=== PATIENT | male | born 1945 | race Caucasian/White ===

== ENCOUNTER 2018-02-10 18:15 | Inpatient (IN) | payer MEDICARE, OTHER, SELFPAY ==
[2018-02-10 18:16] VITALS: BP 179/85; PULSE 67; RESP 16; TEMP 37.2; O2SAT 97; BMI 28.8
[2018-02-10 18:32] VITALS: BP 160/74
--- NOTE | 2018-02-10 19:08 | EKG12_ITS ---
Test Reason : CONFUSION Blood Pressure : / mmHG Vent. Rate : 064 BPM Atrial Rate : 064 BPM P-R Int : 192 ms QRS Dur : 090 ms QT Int : 406 ms P-R-T Axes : 035 042 042 degrees QTc Int : 418 ms Normal sinus rhythm Normal ECG Confirmed by PEARL LANTIGUA, AUSTIN ([id number]), senior editor RADAMES GLASS ([id number] on 02/12/2018 2:07:43 PM Referred By: Casey Ly Confirmed By:AUSTIN KANG MD
--- NOTE | 2018-02-10 19:08 | CT_ITS ---
STUDY: CT BRAIN WITHOUT CONTRAST REASON FOR EXAM: Male, 72 years old. Confusion RADIATION DOSAGE (If Supplied By Facility): CTDIvol = ( 44.99 ) mGy, DLP = ( 829.85 ) mGycm TECHNIQUE: Transaxial CT imaging of the brain was performed without administration of intravenous contrast material. Individualized dose optimization techniques were used for this CT. COMPARISON: None. FINDINGS: Normal soft tissue structures. Normal calvarium. There is mild cerebral atrophy with widening of the extra-axial spaces and ventricular dilatation. There are areas of decreased attenuation within the white matter tracts of the supratentorial brain, consistent with microvascular disease changes. Normal basal ganglia and thalami. Normal brainstem. Normal cerebellum. There is no intracranial hemorrhage. There are no findings of an acute ischemic infarction. Mucosal thickening in the inferior recesses of the frontal sinuses, anterior right ethmoid sinuses and posterior left ethmoid sinuses. CT/Brain/Head without Contrast IMPRESSION: No acute intracranial findings. Negative for hemorrhage, hematoma or mass density. Mild involutional changes appropriate for age. Incidental sinus findings as stated above. Electronically Signed: Donna Argueta MD at 20:02 EDT , Service support ,
[2018-02-10 19:33] LABS: Bacteria 0 SEEN /hpf (None Seen); Mucous, Urine 0 SEEN /hpf (<or=2+); Red Blood Cells-Urine 0 SEEN /hpf (0-5); Squamous Epithelial Cells - UA 0 SEEN /hpf (0-5); White Blood Cells 0 SEEN /hpf (0-5)
[2018-02-10] MEDS: 0.9% Normal Saline 1,000 ML 150 ML IV (19:33)
[2018-02-10 19:55] LABS: Color, Urine Straw (Yellow); Glucose, Dipstick Normal (Normal); Ketone-Dipstick Negative (Negative); Leukocyte Esterase-Dipstick Negative /ul (Negative); Nitrite-Dipstick Negative (Negative); Occult Blood-Urine Negative /ul (Negative); Protein-Dipstick Negative (Negative); Urine Bilirubin Dipstick Negative (Negative); Urine Clarity Clear (Clear); Urine Urobilinogen Normal (Normal)
[2018-02-10 19:57] LABS: Absolute Lymphocyte Count 1.75 X10^3/ul (0.83-4.51); Absolute Neutrophil Count 3.1 X10^3/uL (2.0-7.7); Basophil# 0.02 X10^3/uL; Basophil% 0.3 % (0-1); Eosinophil# 0.26 X10^3/uL; Eosinophils% 4.4 % (0-5); Hematocrit 38.3 % (40-54); Hemoglobin 12.7 g/dl (13.0-16.5); Lymphocyte # 1.75 X10^3/ul (4.0); Lymphocyte % 29.6 % (19-41); Mean Corp Hgb Conc 33.2 g/gl (32-36); Mean Corpuscular Hgb 28.8 pg (27.0-32.0); Mean Corpuscular Volume 86.8 fL (80-94); Mean Platelet Vol. 9.7 fl (6.2-12.0); Monocyte# 0.76 X10^3/uL; Monocyte% 12.8 % (0-10); Neutrophil # 3.13 X10^3/uL (2.7-7.7); Neutrophil % 52.9 % (47-70); Platelet Count 213 K/mm3 (150-450); RBC Distribution Width CV 13.2 % (11.6-14.6); RBC Distribution Width SD 42.1 fl (35.1-43.9); Red Blood Count 4.41 M/mm3 (4.6-6.2); White Blood Count 5.9 K/mm3 (4.4-11.0)
[2018-02-10 20:00] LABS: POSITIVE COUNT NO; POSITIVE DIFFERENTIAL NO; POSITIVE MORPHOLOGY NO
[2018-02-10 20:07] LABS: AST(SGOT) 20 U/L (15-37); Alanine Aminotransfer ALT/SGPT 23 U/L (16-61); Albumin, Serum 3.2 g/dL (3.2-5.0); Alkaline Phosphatase 72 U/L (45-117); Anion Gap 7 (5-15); BUN 13 mg/dL (7-18); Bilirubin, Direct 0.05 mg/dL (0.00-0.30); Calcium,Total 8.4 mg/dL (8.5-10.1); Chloride 109 mmol/L (98-107); Creatinine, Serum 1.08 mg/dL (0.70-1.30); EST Glomerular Filtration Rate 71 mL/min (>60); Est Glom Filt Rate - Afr Amer 86 mL/min (>60); Estimated Creatinine Clearance 60.01 ml/min; Globulin 3.8 g/dL (2.2-4.2); Glucose 84 mg/dL (74-106); Potassium 3.7 mmol/L (3.5-5.1); Sodium Level 143 mmol/L (136-145)
[2018-02-10 21:08] VITALS: BP 160/81; PULSE 61; RESP 20; O2SAT 97
--- NOTE | 2018-02-10 21:40 | ED.VISSUMM ---
- ER Visit Summary Date of Service: 02/10/18 Chief Complaint: Confusion History of Present Illness: The patient is a 72 M brought in by and son. Patient reported has had occasional forgetfulness since having a concussion a couple years ago. They have noted an increase in his confusion and he has been acting odd over the past couple of weeks. As an example states the patient got up at 2:30 this morning and got dressed to go for work. He has been retired for several years. He keeps repeating questions and forget things that were just discussed. Patient has reportedly had 3 falls in the past month. He denies any injuries from these falls and did not strike his head. They do report there is a recent change to his blood pressure medications but no other medications have been altered. He has been eating and drinking well. His only complaint at this time is a mild headache. Past history significant for DE, hypertension, high cholesterol, reflux disease, prostate cancer. He does have a cardiac stent. Physical Examination: Blood pressure in triage is 160/74, temperature 99.0, heart rate 67, respiratory rate 16, pulse ox 97% on room air. The time of my examination his blood pressure is 142/71 and his temperature is 98.2 orally. Patient sitting upright in bed no acute distress. There is no sign of trauma. Head and neck examination is unremarkable. Heart is regular rate and rhythm. Lung sounds are clear. Abdomen is soft nontender. Patient has normal strength and sensation throughout on testing. When I asked him simple questions such as what he ate for dinner just before coming to the emergency room he was unable to tell me. On further questioning patient reportedly felt that he was coming to the hospital to visit someone, but could not tell me who. Test Results: CT scan head is unremarkable. EKG is sinus at 64 with no sign of acute ischemia. CBC was normal white count with hemoglobin 12.7. Chemistry studies are unremarkable. LFTs are normal. Urinalysis is normal. Troponin is negative. Emergency Department Course and Treatment: Patient was given IV fluids here. I have discussed the case with the hospitalist and patient will be admitted for further testing. This was discussed with family and they are in agreement. Treatment Plan: [] Disposition: Admit Impression: Confusion This note was generated with [employer] dictation software. It may contain incorrect words, spelling, and punctuation that were not noted in review of the chart prior to signing ED Disposition - Plan for ED Patient: Disposition: Acute Care Hospital [facility] Chief Complaint: Confusion
--- NOTE | 2018-02-10 22:05 | PCM.HP.STD ---
Problem List (1) Prostate cancer Status: Chronic (2) HTN (hypertension) Status: Chronic Qualifiers: Hypertension type: essential hypertension Qualified Code(s): I10 - Essential (primary) hypertension (3) HLD (hyperlipidemia) Status: Chronic Qualifiers: Hyperlipidemia type: unspecified Qualified Code(s): E78.5 - Hyperlipidemia, unspecified (4) GERD (gastroesophageal reflux disease) Status: Chronic Qualifiers: Esophagitis presence: esophagitis presence not specified Qualified Code(s): K21.9 - Gastro-esophageal reflux disease without esophagitis (5) History of MO (myocardial infarction) Status: Chronic (6) Dementia Status: Chronic Qualifiers: Dementia type: unspecified type Dementia behavioral disturbance: without behavioral disturbance Qualified Code(s): F03.90 - Unspecified dementia without behavioral disturbance (7) TIA (transient ischemic attack) Status: Acute Qualifiers: Transient cerebral ischemia type: unspecified Qualified Code(s): G45.9 - Transient cerebral ischemic attack, unspecified History of Present Illness Date of Admission: 02/10/18 Chief Complaint: Worsened confusion The patient is a 72 y/o M w/ PMHx: Hx Prostate CA Dx 10 years prior, HTN, HLD, GERD, Hx MO/CAD s/p PCI x 1 who presents to the [facility] ED on 02/10/18 with history of concussion approximately 2 years prior with forgetfulness following however the last 3 weeks notes progressively worsening confusion, more severe on day of presentation consistently repeating questions and noted per spouse to awoken at approximately 2:30 in the morning and dressing himself for work in addition to not recalling simple things including the meal he just ate. Emergency room workup included T 99, heart rate 67, BP initially 179/85, respiratory rate 16, 97% on room air, CBC with WBC 5.9, hemoglobin 12.7, platelets 213 without market shift, CMP unremarkable, troponin less than 0.015, UA unremarkable, CT head without acute findings, EKG with no acute evidence of ischemia. The emergency room patient administered normal saline. Past Medical History Past Medical History (Chronic Problems): Chronic Problems Prostate cancer (Chronic) HTN (hypertension) (Chronic) HLD (hyperlipidemia) (Chronic) GERD (gastroesophageal reflux disease) (Chronic) History of MO (myocardial infarction) (Chronic) Dementia (Chronic) Allergies [place]-Vjz-Kmt Reductase Inhibitor Allergy (Verified 02/10/18 18:21) Other Home Medications: Ambulatory Orders Medication Instructions Recorded Amlodipine [Norvasc] 10 mg PO DAILY 10/04/13 Aspirin [Aspirin, Baby] 81 mg PO DAILY@0800 10/04/13 Losartan Potassium [Cozaar] 100 mg PO DAILY 10/04/13 Multivitamins,Therapeutic 1 tablet PO DAILY 10/04/13 [Multivitamin] [place]-3/Dha/Epa/Fish Oil [Fish Oil] 500 mg PO DAILY 10/04/13 Surgical History: - - PCI ?1, hernia repair listed in history. Psychiatric History: No pertinent psych hx Lives: Spouse/ Significant Other Smoking Status: Former smoker - Quit approximately 37 years prior with spouse. Alcohol: None Drugs: None - *Family History Maternal History Items: Heart Disease, Hypertension, Stroke Paternal History Items: Heart Disease, Hypertension Review of Systems Constitutional: Denies: Chills, Fever, Weight Change HEENT: Denies: Head Aches, Sinus Congestion, Sinus Drainage Cardiovascular: Denies: Chest Pain, Palpitations Respiratory: Denies: Cough, Shortness of breath at rest, Sputum production Gastrointestinal: Denies: Abdominal Pain, Nausea, Vomiting Genitourinary: Denies: Dysuria Musculoskeletal: Denies: Joint Pain, Joint Tenderness Skin: Reports: Skin Changes. Denies: Rash, Wounds Neurological: Reports: Confusion. Denies: Focal weakness, Numbness, Tingling Psychiatric: Denies: Anxiety, Depression, Homicidal Ideations, Suicidal Ideations Hematologic/ Lymphatic: Denies: Easy Bruising, Easy Bleeding VTE Information - Inpt Only VTE Present on Admission: No VTE Mechan Device Prophylaxis: SCD's VTE Pharm Prophylaxis ordered?: Yes Patient Problems: Active and Suspected Problems TIA (transient ischemic attack) (Acute) Subjective: Seated upright in the ED bed, NAD, recalls several orientation questions but when discuss further does have recall issues. Objective: Physical Examination: General: awake, alert, oriented x 4/4 but does have recall issues upon further recent history questions, cooperative, seated upright in the ED bed in no apparent distress. Skin: normal color, turgor, no icterus, cyanosis, facial skin changes, rosacea appearing. HEENT: AT/NC, EOMI, PERRLA, mildly dry MM, no carotid bruits or JVD noted. Lungs: CTA bilaterally, moderate effort, mild decrease BL bases, no rales, ronchi or wheezing. Heart: Regular rate and rhythm; no gallop, rub audible. Abdomen: soft, overweight, NTTP, ND, normal BS, no HSM. Extremities: no cyanosis, clubbing, or edema. Neurological: patient awake, alert, oriented as noted, but further more pointed questioning with inability to answer appropriately items he would normally recall, i.e. wedding date; cognitive function moderate but not baseline intact; pupils equally reactive to light and accomodation; cranial nerves II-XII grossly normal, moving all 4 extremities, no focal deficits, strength preserved, babinski negative, FTN/HTN intact. Psychiatric: affect appears normal, no acute evidence of depressive or anxiety feelings. - Physical Exam Vital Signs Temp Pulse Resp BP Pulse Ox 99.0 F 61 20 H 160/81 H 97 02/10/18 18:16 02/10/18 21:08 02/10/18 21:08 02/10/18 21:08 02/10/18 21:08 Oxygen Delivery Method Room Air Weight: 195 lb 8.8 oz Body Mass Index (BMI) 28.8 Laboratory Tests Past 24 Hrs 02/10/18 02/10/18 02/10/18 19:25 19:34 19:34 WBC 5.9 RBC 4.41 L Hgb 12.7 L Hct 38.3 L MCV 86.8 MCH 28.8 MCHC 33.2 RDW 13.2 RDW Differential 42.1 Plt Count 213 MPV 9.7 Immature Gran % (Auto) 0.000 Neut % (Auto) 52.9 Lymph % (Auto) 29.6 [place] % (Auto) 12.8 H Eos % (Auto) 4.4 Baso % (Auto) 0.3 Absolute Neuts (auto) 3.1 Absolute Lymphs (auto) 1.75 Total Counted Not Reportable Sodium 143 Potassium 3.7 Chloride 109 H Carbon Dioxide 27.0 Anion Gap 7 BUN 13 Creatinine 1.08 Estim Creat Clear Calc 60.01 Est GFR (MDRD) Af Amer 86 Est GFR (MDRD) Non-Af 71 BUN/Creatinine Ratio 12.0 Glucose 84 Calcium 8.4 L Total Bilirubin 0.20 Direct Bilirubin 0.05 AST 20 ALT 23 Alkaline Phosphatase 72 Troponin I < 0.015 Total Protein 7.0 Albumin 3.2 Globulin 3.8 Urine Color Straw Urine Clarity Clear Urine pH 7.0 Ur Specific [place] 1.010 Urine Protein Negative Urine Glucose (UA) Normal Urine Ketones Negative Urine Occult Blood Negative Urine Nitrite Negative Urine Bilirubin Negative Urine Urobilinogen Normal Ur Leukocyte Esterase Negative Urine RBC 0 SEEN Urine WBC 0 SEEN Ur Squamous Epith Cells 0 SEEN Urine Bacteria 0 SEEN Urine Mucus 0 SEEN Assessment/Plan Active and Suspected Problems TIA (transient ischemic attack) (Acute) The patient is a 72 y/o M w/ PMHx: Hx Prostate CA Dx 10 years prior, HTN, HLD, GERD, Hx MO/CAD s/p PCI x 1 who presents to the [facility] ED on 02/10/18 with history of concussion approximately 2 years prior with forgetfulness following however the last 3 weeks notes progressively worsening confusion, more severe on day of presentation consistently repeating questions and noted per spouse to awoken at approximately 2:30 in the morning and dressing himself for work in addition to not recalling simple things including the meal he just ate. (1) Confusion concerning for TIA/CVA w/ Possible TBI versus Dementia without behavioral disturbance history: Emergency room workup included T 99, heart rate 67, BP initially 179/85, respiratory rate 16, 97% on room air, CBC with WBC 5.9, hemoglobin 12.7, platelets 213 without market shift, CMP unremarkable, troponin less than 0.015, UA unremarkable, CT head without acute findings, EKG with no acute evidence of ischemia. The emergency room patient administered normal saline. Will admit to PCU, will obtain MRI Brain, MRA Head and Neck, ECHO, PT/OT/Speech/Nutrition evaluation per protocol. Will consult Neurology for evaluation. Will allow permissive HTN given recently worsened presentation although seems ongoing for several weeks, maintain on asa and add plavix, statin w/ AM FLP, fall precautions. Mag pending. TSH pending. (2) Hypertension: Permissive. (3) Hyperlipidemia: Noted statin allergy. AM FLP. (4) CAD: s/p MO, maintain on asa, statin allergy noted w/ AM FLP pending, permissive HTN, not on BB outpatient. (5) Hx Prostate CA: Dx 10 years prior, stable, remission. (6) DVT prophylaxis: SCDs, lovenox. Code Visit OBSV E&M: [id number] Initial observation care L3
--- NOTE | 2018-02-10 22:15 | HP.PCM_ITS ---
Problem List (1) Prostate cancer Status: Chronic (2) HTN (hypertension) Status: Chronic Qualifiers: Hypertension type: essential hypertension Qualified Code(s): I10 - Essential (primary) hypertension (3) HLD (hyperlipidemia) Status: Chronic Qualifiers: Hyperlipidemia type: unspecified Qualified Code(s): E78.5 - Hyperlipidemia , unspecified (4) GERD (gastroesophageal reflux disease) Status: Chronic Qualifiers: Esophagitis presence: esophagitis presence not specified Qualified Code(s) : K21.9 - Gastro-esophageal reflux disease without esophagitis (5) History of VT (myocardial infarction) Status: Chronic (6) Dementia Status: Chronic Qualifiers: Dementia type: unspecified type Dementia behavioral disturbance: without behavioral disturbance Qualified Code(s): F03.90 - Unspecified dementia without behavioral disturbance (7) TIA (transient ischemic attack) Status: Acute Qualifiers: Transient cerebral ischemia type: unspecified Qualified Code(s): G45.9 - Transient cerebral ischemic attack, unspecified History of Present Illness Date of Admission: 02/10/18 Chief Complaint: Worsened confusion The patient is a 72 y/o M w/ PMHx: Hx Prostate CA Dx 10 years prior, HTN, HLD, GERD, Hx VT/CAD s/p PCI x 1 who presents to the [facility] ED on 02/10/18 with history of concussion approximately 2 years prior with forgetfulness following however the last 3 weeks notes progressively worsening confusion, more severe on day of presentation consistently repeating questions and noted per spouse to awoken at approximately 2:30 in the morning and dressing himself for work in addition to not recalling simple things including the meal he just ate. Emergency room workup included T 99, heart rate 67, BP initially 179/85, respiratory rate 16, 97% on room air, CBC with WBC 5.9, hemoglobin 12.7, platelets 213 without market shift, CMP unremarkable, troponin less than 0.015, UA unremarkable, CT head without acute findings, EKG with no acute evidence of ischemia. The emergency room patient administered normal saline. Past Medical History Past Medical History (Chronic Problems): Chronic Problems Prostate cancer (Chronic) HTN (hypertension) (Chronic) HLD (hyperlipidemia) (Chronic) GERD (gastroesophageal reflux disease) (Chronic) History of VT (myocardial infarction) (Chronic) Dementia (Chronic) Allergies Dasjswz-Ngq-Wka Reductase Inhibitor Allergy (Verified 02/10/18 18:21) Other Home Medications: Ambulatory Orders Medication Instructions Recorded Amlodipine [Norvasc] 10 mg PO DAILY 10/04/13 Aspirin [Aspirin, Baby] 81 mg PO DAILY@0800 10/04/13 Losartan Potassium [Cozaar] 100 mg PO DAILY 10/04/13 Multivitamins,Therapeutic 1 tablet PO DAILY 10/04/13 [Multivitamin] [place]-3/Dha/Epa/Fish Oil [Fish Oil] 500 mg PO DAILY 10/04/13 Surgical History: - - PCI ?1, hernia repair listed in history. Psychiatric History: No pertinent psych hx Lives: Spouse/ Significant Other Smoking Status: Former smoker - Quit approximately 37 years prior with spouse. Alcohol: None Drugs: None - *Family History Maternal History Items: Heart Disease, Hypertension, Stroke Paternal History Items: Heart Disease, Hypertension Review of Systems Constitutional: Denies: Chills, Fever, Weight Change HEENT: Denies: Head Aches, Sinus Congestion, Sinus Drainage Cardiovascular: Denies: Chest Pain, Palpitations Respiratory: Denies: Cough, Shortness of breath at rest, Sputum production Gastrointestinal: Denies: Abdominal Pain, Nausea, Vomiting Genitourinary: Denies: Dysuria Musculoskeletal: Denies: Joint Pain, Joint Tenderness Skin: Reports: Skin Changes. Denies: Rash, Wounds Neurological: Reports: Confusion. Denies: Focal weakness, Numbness, Tingling Psychiatric: Denies: Anxiety, Depression, Homicidal Ideations, Suicidal Ideations Hematologic/ Lymphatic: Denies: Easy Bruising, Easy Bleeding VTE Information - Inpt Only VTE Present on Admission: No VTE Mechan Device Prophylaxis: SCD's VTE Pharm Prophylaxis ordered?: Yes Patient Problems: Active and Suspected Problems TIA (transient ischemic attack) (Acute) Subjective: Seated upright in the ED bed, NAD, recalls several orientation questions but when discuss further does have recall issues. Objective: Physical Examination: General: awake, alert, oriented x 4/4 but does have recall issues upon further recent history questions, cooperative, seated upright in the ED bed in no apparent distress. Skin: normal color, turgor, no icterus, cyanosis, facial skin changes, rosacea appearing. HEENT: AT/NC, EOMI, PERRLA, mildly dry MM, no carotid bruits or JVD noted. Lungs: CTA bilaterally, moderate effort, mild decrease BL bases, no rales, ronchi or wheezing. Heart: Regular rate and rhythm; no gallop, rub audible. Abdomen: soft, overweight, NTTP, ND, normal BS, no HSM. Extremities: no cyanosis, clubbing, or edema. Neurological: patient awake, alert, oriented as noted, but further more pointed questioning with inability to answer appropriately items he would normally recall, i.e. wedding date; cognitive function moderate but not baseline intact; pupils equally reactive to light and accomodation; cranial nerves II-XII grossly normal, moving all 4 extremities, no focal deficits, strength preserved , babinski negative, FTN/HTN intact. Psychiatric: affect appears normal, no acute evidence of depressive or anxiety feelings. - Physical Exam Vital Signs Temp Pulse Resp BP Pulse Ox 99.0 F 61 20 H 160/81 H 97 02/10/18 18:16 02/10/18 21:08 02/10/18 21:08 02/10/18 21:08 02/10/18 21:08 Oxygen Delivery Method Room Air Weight: 195 lb 8.8 oz Body Mass Index (BMI) 28.8 Laboratory Tests Past 24 Hrs 02/10/18 02/10/18 02/10/18 19:25 19:34 19:34 WBC 5.9 RBC 4.41 L Hgb 12.7 L Hct 38.3 L MCV 86.8 MCH 28.8 MCHC 33.2 RDW 13.2 RDW Differential 42.1 Plt Count 213 MPV 9.7 Immature Gran % (Auto) 0.000 Neut % (Auto) 52.9 Lymph % (Auto) 29.6 [place] % (Auto) 12.8 H Eos % (Auto) 4.4 Baso % (Auto) 0.3 Absolute Neuts (auto) 3.1 Absolute Lymphs (auto) 1.75 Total Counted Not Reportable Sodium 143 Potassium 3.7 Chloride 109 H Carbon Dioxide 27.0 Anion Gap 7 BUN 13 Creatinine 1.08 Estim Creat Clear Calc 60.01 Est GFR (MDRD) Af Amer 86 Est GFR (MDRD) Non-Af 71 BUN/Creatinine Ratio 12.0 Glucose 84 Calcium 8.4 L Total Bilirubin 0.20 Direct Bilirubin 0.05 AST 20 ALT 23 Alkaline Phosphatase 72 Troponin I < 0.015 Total Protein 7.0 Albumin 3.2 Globulin 3.8 Urine Color Straw Urine Clarity Clear Urine pH 7.0 Ur Specific [place] 1.010 Urine Protein Negative Urine Glucose (UA) Normal Urine Ketones Negative Urine Occult Blood Negative Urine Nitrite Negative Urine Bilirubin Negative Urine Urobilinogen Normal Ur Leukocyte Esterase Negative Urine RBC 0 SEEN Urine WBC 0 SEEN Ur Squamous Epith Cells 0 SEEN Urine Bacteria 0 SEEN Urine Mucus 0 SEEN Assessment/Plan Active and Suspected Problems TIA (transient ischemic attack) (Acute) The patient is a 72 y/o M w/ PMHx: Hx Prostate CA Dx 10 years prior, HTN, HLD, GERD, Hx VT/CAD s/p PCI x 1 who presents to the [facility] ED on 02/10/18 with history of concussion approximately 2 years prior with forgetfulness following however the last 3 weeks notes progressively worsening confusion, more severe on day of presentation consistently repeating questions and noted per spouse to awoken at approximately 2:30 in the morning and dressing himself for work in addition to not recalling simple things including the meal he just ate. (1) Confusion concerning for TIA/CVA w/ Possible TBI versus Dementia without behavioral disturbance history: Emergency room workup included T 99, heart rate 67, BP initially 179/85, respiratory rate 16, 97% on room air, CBC with WBC 5.9 , hemoglobin 12.7, platelets 213 without market shift, CMP unremarkable, troponin less than 0.015, UA unremarkable, CT head without acute findings, EKG with no acute evidence of ischemia. The emergency room patient administered normal saline. Will admit to PCU, will obtain MRI Brain, MRA Head and Neck, ECHO , PT/OT/Speech/Nutrition evaluation per protocol. Will consult Neurology for evaluation. Will allow permissive HTN given recently worsened presentation although seems ongoing for several weeks, maintain on asa and add plavix, statin w/ AM FLP, fall precautions. Mag pending. TSH pending. (2) Hypertension: Permissive. (3) Hyperlipidemia: Noted statin allergy. AM FLP. (4) CAD: s/p VT, maintain on asa, statin allergy noted w/ AM FLP pending, permissive HTN, not on BB outpatient. (5) Hx Prostate CA: Dx 10 years prior, stable, remission. (6) DVT prophylaxis: SCDs, lovenox. Code Visit OBSV E&M: [id number] Initial observation care L3
[2018-02-10 22:20] VITALS: BP 143/74; PULSE 62; RESP 14; O2SAT 97
[2018-02-10 22:37] VITALS: PULSE 63; BMI 28.7
[2018-02-10 23:04] VITALS: BMI 28.7
--- NOTE | 2018-02-10 23:04 | ECHOD_ITS ---
Reason For Study: TIA/CVA Procedure This was a 2D Doppler, Color Flow transthoracic echocardiogram. Exam performed portable in patient room. Left Ventricle Normal size and thickness. The estimated ejection fraction is 65 %. Stage 1 diastolic dysfunction. No regional wall motion abnormalities noted. Right Ventricle Normal size and thickness. Normal systolic function. Atria The left atrium is mildly enlarged. Normal right atrium. Normal atrial septum. Bubble contrast study negative for right to left interatrial shunt. Mitral Valve The mitral valve is structurally normal. No prolapse or stenosis seen. Tricuspid Valve Normal tricuspid valve. Trivial tricuspid valve insufficiency. Right ventricular systolic pressure estimated to be 26 mmHg. Aortic Valve Trisinus/trileaflet aortic valve. Mild focal aortic valve thickening. There is no aortic stenosis. Pulmonic Valve Normal pulmonic valve. Great Vessels Normal aortic root. Normal arch. Normal inferior vena cava. Inferior vena cava collapse with sniff. Pericardium/Pleural No pericardial effusion. Medication Performed a rapid injection of agitated mix of 9 cc saline and 1cc air to assess for atrial septal defect. MMode/2D Measurements & Calculations LVIDd: 4.1 cm IVSd: 1.1 cm Ao root diam: 3.9 cm LVIDs: 2.7 cm LVPWd: 1.2 cm LA dimension: 4.0 cm RVDd: 2.8 cm FS: 32.6 % LAV(MOD-bp): 63.4 ml LA A4 area: 21.2 cm2 LAV(MOD-bp) Indexed: 31.4 ml/m2 LAV(MOD-sp2): 52.4 ml LAV(MOD-sp4): 72.3 ml Doppler Measurements & Calculations MV E max emmanuel: 78.7 cm/sec Lat Peak E' Emmanuel: 8.5 cm/sec Med Peak E' Emmanuel: 5.6 cm/sec MV A max emmanuel: 100.8 cm/sec E/E' lat: 9.3 E/E' med: 14.2 MV E/A: 0.78 Ao V2 max: 125.5 cm/sec LV V1 max: 112.2 cm/sec PA V2 max: 93.7 cm/sec Ao max P.3 mmHg LV V1 max P.0 mmHg TR max emmanuel: 227.1 cm/sec TR max P.6 mmHg Interpretation Summary The estimated ejection fraction is 65 %. Stage 1 diastolic dysfunction. The left atrium is mildly enlarged. Bubble contrast study negative for right to left interatrial shunt. Trivial tricuspid valve insufficiency. Right ventricular systolic pressure estimated to be 26 mmHg. There is no comparison study available. Ordering Physician: Keyla Jaimes Referring Physician: Casey Ly Performed By: Bibiana Larson, ROBIN, RVT
[2018-02-10 23:05] VITALS: BP 157/85; PULSE 64; RESP 18; TEMP 36.6; O2SAT 96
[2018-02-10 23:39] LABS: Magnesium 2.1 mg/dL (1.6-2.6); Thyroid Stim Hormone (TSH) 2.18 uIU/mL (0.358-3.74)
[2018-02-11] VITALS (12 sets, daily range): BP systolic 121–166; BP diastolic 52–78; PULSE 56–83; RESP 14–18; TEMP 36.5–36.8; O2SAT 96–97; BMI 28.7
[2018-02-11] MEDS: 0.9% Normal Saline 1,000 ML 100 ML IV ×3 (01:09→22:01)
[2018-02-11 05:50] LABS: Cholesterol 156 mg/dL (200); High Density Lipoprotein 36 mg/dL; Triglycerides 258 mg/dL; Very Low Density Lipoprotein 52 mg/dL (5-40)
[2018-02-11] MEDS: Aspirin 81 MG TAB.CHEW PO (10:29)
[2018-02-11] MEDS: Famotidine 20 MG Tablet PO ×2 (10:29→22:02)
[2018-02-11] MEDS: Clopidogrel Bisulfate 75 MG Tablet PO (10:29)
[2018-02-11 10:59] LABS: Hemoglobin A1c 5.4 % (4.2-6.3)
--- NOTE | 2018-02-11 11:38 | PCM.PN.HOSP ---
Patient Problems: Active and Suspected Problems TIA (transient ischemic attack) (Acute) Stroke (Acute) Subjective: [facility] radiologist Dr. Brown called me to inform MRI finding as subacute linear lacunar ischemic infarct in the right posterior internal capsule extending to the right periventricular white matter. He is of the opinion that this may be cardioembolic as the MRA of the head and neck are unremarkable. This was discussed with our neurologist, Dr. Scott and he thinks it is not prudent or significant to do RUFINA. 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 Patient ability to understand his speech has improved but is still increased reaction time. No cranial nerve paralysis. No change in muscle weakness or sensation. Vitals/I&O's: Vital Signs Temp Pulse Resp BP Pulse Ox 98.3 F 66 14 141/76 H 96 02/11/18 10:26 02/11/18 11:26 02/11/18 10:26 02/11/18 10:02/11/18 10:26 Oxygen Delivery Method Room Air Weight: 194 lb 0.108 oz Body Mass Index (BMI) 28.7 Intake and Output for Last 24 Hours 02/09/18 02/10/18 02/11/18 23:59 23:59 23:59 Intake Total 120 / 120 722 / 722 Balance 120 / 120 722 / 722 General: Alert, Oriented x3, Cooperative HEENT: Atraumatic, PERRLA, EOMI, Normocephalic Neck: Supple, No JVD, Negative Carotid Bruits Lungs: Clear to auscultation, Normal air movement, No rhonchi, No wheeze Cardiovascular: Regular rate, Regular Rhythm, Normal S1, Normal S2, No murmurs Abdomen: Bowel Sounds Present, Soft, Non Tender, Non-Distended Extremities: Capillary Refill Less than 3 Seconds, Edema Skin: No rashes, No breakdown Musculoskeletal: No Tenderness to Palpation of Joints or Extremities, Arthritic Changes Neurological: Cranial nerves II-XII grossly intact, Neuro grossly intact, - - Increased response and repetition time for understanding speech Psych/Mental Status: Normal Affect, Appropriate Laboratory Results 02/11/18 05:10: Hemoglobin A1c 5.4 02/11/18 05:20: Triglycerides 258 H, Cholesterol 156, LDL Cholesterol 68, VLDL Cholesterol 52 H, HDL Cholesterol 36 L Current Medications Acetaminophen (Tylenol) 650 mg PO Q4H PRN PRN PRN Reason: Headache/Temp>99F Acetaminophen (Tylenol) 650 mg RECTAL Q4H PRN PRN PRN Reason: Headache/Temp>99F Acetaminophen (Tylenol Liquid) 650 mg NG Q4H PRN PRN PRN Reason: Headache/Temp>99F Aspirin (Aspirin, Baby) 81 mg PO DAILY@0800 [facility] Last Admin: 02/11/18 10:29 Dose: 81 mg Clopidogrel Bisulfate (Plavix) 75 mg PO DAILY [facility] Last Admin: 02/11/18 10:29 Dose: 75 mg Famotidine (Pepcid) 20 mg PO BID [facility] Last Admin: 02/11/18 10:29 Dose: 20 mg Sodium Chloride () 1,000 mls @ 100 mls/hr IV .Q10H [facility] Last Admin: 02/11/18 01:09 Dose: 100 mls/hr Labetalol HCl (Trandate) 10 mg IV Q10M PRN PRN Reason: MAINTAIN SBP GOALS Stop: 02/11/18 23:05 Pravastatin Sodium (Pravachol) 80 mg PO QHS [facility] Sodium Chloride () 5 - 30 ml IV UD PRN PRN Reason: SALINE FLUSH Medical Necessity - Tobacco Use Smoking Status: Former smoker Tobacco Use: Cigarettes Assessment/Plan Active and Suspected Problems TIA (transient ischemic attack) (Acute) Stroke (Acute) The patient is a 72 y/o M with history of Prostate CA Dx 10 years prior, HTN, HLD, GERD, Hx NH/CAD s/p PCI x 1 is being admitted on 02/10/18 with history of concussion approximately 2 years prior with forgetfulness following however the last 3 weeks notes progressively worsening confusion, and disorganized and peculiar behavior (1) subacute linear lacunar ischemic infarct in the right posterior internal capsule extending to the right periventricular white matter : CT head without acute findings, EKG with no acute evidence of ischemia. Brain MRI brain as mentioned above. MRI and MRA are normal. Discussed with the neurologist, Dr. Scott and he thinks he needs 2D echo which is ordered. Further PT OT and speech evaluation. EKG shows normal sinus rhythm (2) Hypertension: Permissive. (3) Hyperlipidemia: Noted statin allergy. Sleep profile glyceride 258, HDL 36 and LDL 68. (4) CAD: s/p NH, maintain on asa, statin allergy noted w/ AM FLP pending, permissive HTN, not on BB outpatient. (5) Hx Prostate CA: Dx 10 years prior, stable, remission. (6) DVT prophylaxis: SCDs, lovenox. Laboratory Results 02/10/18 19:25: Urine Color Straw, Urine Clarity Clear, Urine pH 7.0, Ur Specific [place] 1.010, Urine Protein Negative, Urine Glucose (UA) Normal, Urine Ketones Negative, Urine Occult Blood Negative, Urine Nitrite Negative, Urine Bilirubin Negative, Urine Urobilinogen Normal, Ur Leukocyte Esterase Negative, Urine RBC 0 SEEN, Urine WBC 0 SEEN, Ur Squamous Epith Cells 0 SEEN, Urine Bacteria 0 SEEN, Urine Mucus 0 SEEN 02/10/18 19:34: WBC 5.9, RBC 4.41 L, Hgb 12.7 L, Hct 38.3 L, MCV 86.8, MCH 28.8, MCHC 33.2, RDW 13.2, RDW Differential 42.1, Plt Count 213, MPV 9.7, Immature Gran % (Auto) 0.000, Neut % (Auto) 52.9, Lymph % (Auto) 29.6, [place] % (Auto) 12.8 H, Eos % (Auto) 4.4, Baso % (Auto) 0.3, Absolute Neuts (auto) 3.1, Absolute Lymphs (auto) 1.75, Total Counted Not Reportable 02/10/18 19:34: Sodium 143, Potassium 3.7, Chloride 109 H, Carbon Dioxide 27.0, Anion Gap 7, BUN 13, Creatinine 1.08, Estim Creat Clear Calc 60.01, Est GFR (MDRD) Af Amer 86, Est GFR (MDRD) Non-Af 71, BUN/Creatinine Ratio 12.0, Glucose 84, Calcium 8.4 L, Total Bilirubin 0.20, Direct Bilirubin 0.05, AST 20, ALT 23, Alkaline Phosphatase 72, Troponin I < 0.015, Total Protein 7.0, Albumin 3.2, Globulin 3.8 02/10/18 19:34: Magnesium 2.1, TSH 2.18 02/11/18 05:10: Hemoglobin A1c 5.4 02/11/18 05:20: Triglycerides 258 H, Cholesterol 156, LDL Cholesterol 68, VLDL Cholesterol 52 H, HDL Cholesterol 36 L 02/11/18 05:20: TSH 2.79 02/11/18 05:20: Vitamin B12 Pending Clinical Impression(s) from Imaging Studies Brain CT 02/10/18 19:08 IMPRESSION: No acute intracranial findings. Negative for hemorrhage, hematoma or mass density. Mild involutional changes appropriate for age. Incidental sinus findings as stated above. Brain MRI 02/11/18 23:04 IMPRESSION: Early subacute linear lacunar ischemic infarct in the right posterior internal capsule extending to the right periventricular white matter. This may be cardioembolic as the MRA of the head and neck are unremarkable. Code Visit Inpatient E&M: [id number] Subs Hosp L3
--- NOTE | 2018-02-11 15:01 | PCM.CONS.GEN ---
Problem List (1) Stroke Status: Acute Qualifiers: CVA mechanism: thrombosis Precerebral and cerebral artery: middle cerebral artery Laterality of affected vessel: right Qualified Code(s): I63.311 - Cerebral infarction due to thrombosis of right middle cerebral artery Reason for Consult Date of Consultation: 02/11/18 Reason for Consultation: Acute right MCA stroke History of Present Illness: The patient is a 72 year old CM with PMH HTN, HLD, CAD s/p stents in 2013, Prostate Cancer admitted with confusion. History is obtained from patient, family and medical records. Per he had head injury few years ago, has been having episodes of confusion intermittently since then, but on 02/10/18 he woke up in the middle of the night and was trying to get ready to go to shave and work though he has been retired, has been having some short term memory issues, had about 3 falls in the past couple months, does not use cane or walker to ambulate, does drive, does not need any assistance for his ADLs, denies any facial droop, speech disturbances, headache, visual disturbances, focal motor weakness, or sensory loss. MRI brain done on admission showed acute right IC infarct, MRA head/neck was reported normal. Is on ASA at home, per has been on Lipitor but could not tolerate the same. ] Past Medical History Past Medical History (Chronic Problems): Chronic Problems Prostate cancer (Chronic) HTN (hypertension) (Chronic) HLD (hyperlipidemia) (Chronic) GERD (gastroesophageal reflux disease) (Chronic) History of [place] (myocardial infarction) (Chronic) Dementia (Chronic) Allergies [id number] Reductase Inhibitor Allergy (Verified 02/10/18 18:21) Other Home Medications: Ambulatory Orders Medication Instructions Recorded Amlodipine [Norvasc] 5 mg PO DAILY 10/04/13 Aspirin [Aspirin, Baby] 81 mg PO DAILY 10/04/13 Losartan Potassium [Cozaar] 100 mg PO DAILY 10/04/13 Multivitamins,Therapeutic 1 tablet PO DAILY 10/04/13 [Multivitamin] [place]-3/Dha/Epa/Fish Oil [Fish Oil] 500 mg PO DAILY 10/04/13 Metoprolol Succinate [Toprol Xl] 50 mg PO DAILY 02/10/18 Pravastatin Sodium [Pravastatin 80 mg PO QHS 02/10/18 Sodium] Surgical History: - - PCI ?1, hernia repair listed in history. Psychiatric History: No pertinent psych hx Lives: Spouse/ Significant Other Smoking Status: Former smoker Tobacco Use: Cigarettes Alcohol: None Drugs: None - *Family History Maternal History Items: Dementia, Heart Disease, Hypertension, Stroke, - - alzhiemer's dementia in mother Paternal History Items: Heart Disease, Hypertension Review of Systems Constitutional: Reports: - - complete ROS negative except as documented in HPI Patient Problems: Active and Suspected Problems TIA (transient ischemic attack) (Acute) Stroke (Acute) - Physical Exam General: Alert, - - not oriented to time or place at present. HEENT: Normocephalic Neck: Supple Lungs: Normal air movement Cardiovascular: Normal S1, Normal S2 Abdomen: Bowel Sounds Present Extremities: No cyanosis Skin: No rashes Musculoskeletal: No Tenderness to Palpation of Joints or Extremities Neurological: - - consious, awake, disoriented to place, time, CN 2-12 grossly intact, power 5/5 both UE and LE, ?mild pronator drift on the right side, no sensory loss, mild left UE ataxia, no extinction, no aphasia, Reflexes + B/L B/S/T/K/A, gait deferred, NIHSS 2 at present. Vital Signs Temp Pulse Resp BP Pulse Ox 98.2 F 63 15 121/59 H 96 02/11/18 14:51 02/11/18 14:51 02/11/18 14:51 02/11/18 14:51 02/11/18 14:51 Oxygen Delivery Method Room Air Weight: 88 kg Body Mass Index (BMI) 28.7 Intake and Output for Last 24 Hours 02/09/18 02/10/18 02/11/18 23:59 23:59 23:59 Intake Total 120 / 120 1999 Balance 120 / 120 1999 Laboratory Tests Past 24 Hrs 02/11/18 02/11/18 05:10 05:20 Hemoglobin A1c 5.4 Triglycerides 258 H Cholesterol 156 LDL Cholesterol 68 VLDL Cholesterol 52 H HDL Cholesterol 36 L Assessment/Plan Active and Suspected Problems TIA (transient ischemic attack) (Acute) Stroke (Acute) The patient is a 72 year old CM with PMH HTN, HLD, CAD s/p stents in 2013, Prostate Cancer admitted with confusion. History is obtained from patient, family and medical records. Per he had head injury few years ago, has been having episodes of confusion intermittently since then, but on 02/10/18 he woke up in the middle of the night and was trying to get ready to go to shave and work though he has been retired, has been having some short term memory issues, had about 3 falls in the past couple months, does not use cane or walker to ambulate, does drive, does not need any assistance for his ADLs, denies any facial droop, speech disturbances, headache, visual disturbances, focal motor weakness, or sensory loss. MRI brain done on admission showed acute right IC infarct, MRA head/neck was reported normal. Is on ASA at home, per has been on Lipitor but could not tolerate the same Impression Acute right MCA (Right IC) infarct Ataxic hemiparesis Encephalopathy MCI vs Dementia Plan -On ASA 81 mg PO once daily, started on Plavix 75 mg PO once daily, dual AP for 3 weeks, then switch to single AP with Plavix. Bleeding risk discussed in detail with patient and family -On Pravachol. Can change to Pravachol 40 mg PO q hs -MRI brain and MRA head/neck images reviewed -Recommend TTE -LDL-68, Hb1c-5.4% -Recommend 30 day event recorder as outpatient -Recommend Vitamin B12 and TSH. Rest dementia work up as outpatient -Stroke risk factors discussed, stroke education provided -GI/DVT prophylaxis -PT/OT/ST -Fall precautions -Further medical management per primary team -Neurology follow up as outpatient in 2 weeks -Please call with questions if any -Thank you for allowing us to participate in patient's care and management I spent 60 minutes taking history, doing physical examination, reviewing medical records, coordinating care and counseling patient and his family. Code Visit Inpatient E&M: [id number] Init Hosp L3
--- NOTE | 2018-02-11 15:13 | CON.PCM_ITS ---
Problem List (1) Stroke Status: Acute Qualifiers: CVA mechanism: thrombosis Precerebral and cerebral artery: middle cerebral artery Laterality of affected vessel: right Qualified Code(s): I63.311 - Cerebral infarction due to thrombosis of right middle cerebral artery Reason for Consult Date of Consultation: 02/11/18 Reason for Consultation: Acute right MCA stroke History of Present Illness: The patient is a 72 year old CM with PMH HTN, HLD, CAD s/p stents in 2013, Prostate Cancer admitted with confusion. History is obtained from patient, family and medical records. Per he had head injury few years ago, has been having episodes of confusion intermittently since then, but on 02/10/18 he woke up in the middle of the night and was trying to get ready to go to shave and work though he has been retired, has been having some short term memory issues, had about 3 falls in the past couple months, does not use cane or walker to ambulate, does drive, does not need any assistance for his ADLs, denies any facial droop, speech disturbances, headache, visual disturbances, focal motor weakness, or sensory loss. MRI brain done on admission showed acute right IC infarct, MRA head/neck was reported normal. Is on ASA at home, per has been on Lipitor but could not tolerate the same. ] Past Medical History Past Medical History (Chronic Problems): Chronic Problems Prostate cancer (Chronic) HTN (hypertension) (Chronic) HLD (hyperlipidemia) (Chronic) GERD (gastroesophageal reflux disease) (Chronic) History of [place] (myocardial infarction) (Chronic) Dementia (Chronic) Allergies Igqsvid-Wez-Hup Reductase Inhibitor Allergy (Verified 02/10/18 18:21) Other Home Medications: Ambulatory Orders Medication Instructions Recorded Amlodipine [Norvasc] 5 mg PO DAILY 10/04/13 Aspirin [Aspirin, Baby] 81 mg PO DAILY 10/04/13 Losartan Potassium [Cozaar] 100 mg PO DAILY 10/04/13 Multivitamins,Therapeutic 1 tablet PO DAILY 10/04/13 [Multivitamin] [place]-3/Dha/Epa/Fish Oil [Fish Oil] 500 mg PO DAILY 10/04/13 Metoprolol Succinate [Toprol Xl] 50 mg PO DAILY 02/10/18 Pravastatin Sodium [Pravastatin 80 mg PO QHS 02/10/18 Sodium] Surgical History: - - PCI ?1, hernia repair listed in history. Psychiatric History: No pertinent psych hx Lives: Spouse/ Significant Other Smoking Status: Former smoker Tobacco Use: Cigarettes Alcohol: None Drugs: None - *Family History Maternal History Items: Dementia, Heart Disease, Hypertension, Stroke, - - alzhiemer's dementia in mother Paternal History Items: Heart Disease, Hypertension Review of Systems Constitutional: Reports: - - complete ROS negative except as documented in HPI Patient Problems: Active and Suspected Problems TIA (transient ischemic attack) (Acute) Stroke (Acute) - Physical Exam General: Alert, - - not oriented to time or place at present. HEENT: Normocephalic Neck: Supple Lungs: Normal air movement Cardiovascular: Normal S1, Normal S2 Abdomen: Bowel Sounds Present Extremities: No cyanosis Skin: No rashes Musculoskeletal: No Tenderness to Palpation of Joints or Extremities Neurological: - - consious, awake, disoriented to place, time, CN 2-12 grossly intact, power 5/5 both UE and LE, ?mild pronator drift on the right side, no sensory loss, mild left UE ataxia, no extinction, no aphasia, Reflexes + B/L B/S /T/K/A, gait deferred, NIHSS 2 at present. Vital Signs Temp Pulse Resp BP Pulse Ox 98.2 F 63 15 121/59 H 96 02/11/18 14:51 02/11/18 14:51 02/11/18 14:51 02/11/18 14:51 02/11/18 14:51 Oxygen Delivery Method Room Air Weight: 88 kg Body Mass Index (BMI) 28.7 Intake and Output for Last 24 Hours 02/09/18 02/10/18 02/11/18 23:59 23:59 23:59 Intake Total 120 / 120 1999 Balance 120 / 120 1999 Laboratory Tests Past 24 Hrs 02/11/18 02/11/18 05:10 05:20 Hemoglobin A1c 5.4 Triglycerides 258 H Cholesterol 156 LDL Cholesterol 68 VLDL Cholesterol 52 H HDL Cholesterol 36 L Assessment/Plan Active and Suspected Problems TIA (transient ischemic attack) (Acute) Stroke (Acute) The patient is a 72 year old CM with PMH HTN, HLD, CAD s/p stents in 2013, Prostate Cancer admitted with confusion. History is obtained from patient, family and medical records. Per he had head injury few years ago, has been having episodes of confusion intermittently since then, but on 02/10/18 he woke up in the middle of the night and was trying to get ready to go to shave and work though he has been retired, has been having some short term memory issues, had about 3 falls in the past couple months, does not use cane or walker to ambulate, does drive, does not need any assistance for his ADLs, denies any facial droop, speech disturbances, headache, visual disturbances, focal motor weakness, or sensory loss. MRI brain done on admission showed acute right IC infarct, MRA head/neck was reported normal. Is on ASA at home, per has been on Lipitor but could not tolerate the same Impression Acute right MCA (Right IC) infarct Ataxic hemiparesis Encephalopathy MCI vs Dementia Plan -On ASA 81 mg PO once daily, started on Plavix 75 mg PO once daily, dual AP for 3 weeks, then switch to single AP with Plavix. Bleeding risk discussed in detail with patient and family -On Pravachol. Can change to Pravachol 40 mg PO q hs -MRI brain and MRA head/neck images reviewed -Recommend TTE -LDL-68, Hb1c-5.4% -Recommend 30 day event recorder as outpatient -Recommend Vitamin B12 and TSH. Rest dementia work up as outpatient -Stroke risk factors discussed, stroke education provided -GI/DVT prophylaxis -PT/OT/ST -Fall precautions -Further medical management per primary team -Neurology follow up as outpatient in 2 weeks -Please call with questions if any -Thank you for allowing us to participate in patient's care and management I spent 60 minutes taking history, doing physical examination, reviewing medical records, coordinating care and counseling patient and his family. Code Visit Inpatient E&M: [id number] Init Hosp L3
[2018-02-11 16:35] LABS: Thyroid Stim Hormone (TSH) 2.79 uIU/mL (0.358-3.74)
[2018-02-11] MEDS: Pravastatin 80 MG Tablet PO (22:02)
--- NOTE | 2018-02-11 23:04 | MRI_ITS ---
STUDY: MRI BRAIN WITHOUT CONTRAST REASON FOR EXAM: Male, 72 years old. Increased confusion off and on x2 weeks. TECHNIQUE: Standardized multiplanar fat and water weighted pulse sequences were obtained. COMPARISON: CT head without contrast 02/10/2018. FINDINGS: Small linear restricted diffusion in the right posterior internal capsule extending to the right posterior periventricular white matter. This is also faintly visible on the T2 FLAIR sequences. This is consistent with an early subacute ischemic infarct. Normal size of the ventricles and extra-axial spaces for the patient's age. Normal white matter tracts of the supratentorial brain. Normal bilateral basal ganglia. Normal thalami. There is no extra-axial fluid accumulation. Normal flow voids within the major intracranial circulation suggesting patency by spin echo criteria. Normal sella turcica, pituitary gland, infundibular stalk, optic chiasm and hypothalamus. Normal tectal plate and pineal gland. Normal midbrain, allison and medulla. Normal cerebellum. Normal basal cisterns. Normal bilateral temporal bones. Normal bilateral internal auditory canals. No demonstrated orbital abnormality, within the constraints of a routine brain study. Normal visualized paranasal sinuses. Normal calvarium and skull base. Normal visualized soft tissue structures. Normal visualized upper cervical spine. MRI/Brain without Contrast IMPRESSION: Early subacute linear lacunar ischemic infarct in the right posterior internal capsule extending to the right periventricular white matter. This may be cardioembolic as the MRA of the head and neck are unremarkable. Electronically Signed: Harshil Brown MD at 10:52 EDT , Service support ,
--- NOTE | 2018-02-11 23:04 | MRI_ITS ---
STUDY: MRA OF THE HEAD WITHOUT CONTRAST REASON FOR EXAM: Male, 72 years old. Increased confusion, off and on x2 weeks. TECHNIQUE: 3-D duwy-mg-ywodep (TOF) imaging was performed with MIPs. The study was performed unenhanced. COMPARISON: None. FINDINGS: Motion degradation artifacts. Normal bilateral petrous carotid arteries. Normal right cavernous carotid artery with a normal supraclinoid bifurcation. Irregularity of the shin of the left cavernous internal carotid artery is due to motion degradation artifacts. Normal left cavernous carotid artery with a normal supraclinoid bifurcation. Normal right A1 segment of the anterior cerebral artery. Normal left A1 segment of the anterior cerebral artery. Normal intact anterior communicating artery (ACOM). Normal bilateral A2 segments of the anterior cerebral arteries. Normal right M1 and M2 segments of the middle cerebral arteries, with a normal M1 bifurcation. Normal left M1 and M2 segments of the middle cerebral arteries, with a normal M1 bifurcation. No visible right posterior communicating artery (PCOM). No visible left posterior communicating artery (PCOM). Normal bilateral vertebral arteries. Normal basilar artery with a normal basilar bifurcation. The visualized bilateral superior cerebellar (SCA) arteries are normal. Normal bilateral P1, P2 and visualized P3 segments of the posterior cerebral arteries. There is no demonstrated aneurysm of the [place] of [place]. There is no major vessel occlusion or hemodynamically significant stenosis. There is no demonstrated abnormality of the visualized brain. MRI/MRA Head ONLY without Contrast IMPRESSION: Normal MRA of the head Electronically Signed: Harshil Brown MD at 10:20 EDT , Service support ,
--- NOTE | 2018-02-11 23:04 | MRI_ITS ---
STUDY: MRA NECK WITHOUT CONTRAST REASON FOR EXAM: Male, 72 years old. Increased confusion, ON X2 WEEKS. TECHNIQUE: Source images were obtained, MIPs were performed. The study was performed unenhanced. COMPARISON: None. FINDINGS: RIGHT CAROTID ARTERIES: Normal right common carotid artery (CCA). Normal right common carotid bulb. Normal origin of the right internal carotid (ICA) artery without a hemodynamically significant stenosis. Normal visualized cervical portion of the right internal carotid artery. Normal origin of the right external carotid artery (ECA). LEFT CAROTID ARTERIES: Normal left common carotid artery (CCA). Normal left common carotid bulb. Normal origin of the left internal carotid (ICA) artery without a hemodynamically significant stenosis. Normal visualized cervical portion of the left internal carotid artery. Normal origin of the left external carotid artery (ECA). VERTEBRAL ARTERIES: Normal antegrade flow within the bilateral vertebral artery without a hemodynamically significant stenosis. MRI/MRA Neck without Contrast IMPRESSION: Normal bilateral cervical carotid and vertebral arteries. Electronically Signed: Harshil Brown MD at 10:27 EDT , Service support ,
[2018-02-12] VITALS (13 sets, daily range): BP systolic 139–162; BP diastolic 67–87; PULSE 64–75; RESP 16–20; TEMP 36.6–37; O2SAT 95–97; BMI 28.7
[2018-02-12] MEDS: Haloperidol 1 MG Tablet 0.5 MG PO (03:04)
--- NOTE | 2018-02-12 03:04 | NURSING ---
Administered PRN Haldol at this time 0.5mg PO TID PRN - patient has been increasingly more aggressive. Patient repeatedly pulling off tele leads and pulling at IV. Patient is aware that he needs to keep these items on. However, has brief moments of forgetfulness according to the patient. Patient smacked this RN's hands when she attempted to put the tele leads back on. Educated patient on the need for this monitoring. Patient given PRN when he smacked this RN's hands again.
[2018-02-12 10:04] LABS: Vitamin B12 574 pg/mL (211-911)
[2018-02-12] MEDS: Clopidogrel Bisulfate 75 MG Tablet PO (11:00)
[2018-02-12] MEDS: Famotidine 20 MG Tablet PO ×2 (11:00→23:01)
[2018-02-12] MEDS: Aspirin 81 MG TAB.CHEW PO (11:00)
--- NOTE | 2018-02-12 11:23 | DS.PCM_ITS ---
Discharge Date and Diagnosis - Problem List Patient Problems: Active and Suspected Problems TIA (transient ischemic attack) (Acute) Stroke (Acute) Date of Admission: 02/10/18 Date of Discharge: 02/12/18 - Primary Discharge Diagnosis Active and Suspected Problems TIA (transient ischemic attack) (Acute) Stroke (Acute) - Secondary Discharge Diagnosis Chronic Problems Prostate cancer (Chronic) HTN (hypertension) (Chronic) HLD (hyperlipidemia) (Chronic) GERD (gastroesophageal reflux disease) (Chronic) History of HI (myocardial infarction) (Chronic) Dementia (Chronic) Hospital Course and Treatment Summary of Care Provided: The patient is a 72 year old M [] Discharge Activity: May Not Drive - for at least 3 months unless cleared by Neurologist/PCP Home Medications: Medications to take at Discharge Aspirin [Aspirin, Baby] 81 mg PO DAILY 10/04/13 Multivitamins,Therapeutic [Multivitamin] 1 tablet PO DAILY 10/04/13 [place]-3/Dha/Epa/Fish Oil [Fish Oil Dr 500 mg Softgel] 500 mg PO DAILY 10/04/13 Metoprolol Succinate [Toprol Xl] 50 mg PO DAILY 02/10/18 Pravastatin Sodium 80 mg PO QHS 02/10/18 Amlodipine [Norvasc] 5 mg PO DAILY #0 02/12/18 Clopidogrel Bisulfate [Plavix] 75 mg PO DAILY #30 tab 02/12/18 Losartan Potassium [Cozaar] 100 mg PO DAILY #0 02/12/18 Following Prescrptions Were Given to Patient: Clopidogrel Bisulfate [Plavix] 75 mg PO DAILY #30 tab Primary Care Physician: Calvin Rouse DO [Primary Care Provider] - Please follow up with your Primary Care Physician in: IN 2 WEEKS Please Follow Up With: Jami Scott MD When: in 2-3 weeks Medical Necessity - Tobacco Use Smoking Status: Former smoker Tobacco Use: Cigarettes
--- NOTE | 2018-02-12 11:23 | DCINST_ITS ---
- Discharge Diagnoses Current Active Problems: Current Active and Chronic Problems Prostate cancer (Chronic) HTN (hypertension) (Chronic) HLD (hyperlipidemia) (Chronic) GERD (gastroesophageal reflux disease) (Chronic) History of [place] (myocardial infarction) (Chronic) Dementia (Chronic) TIA (transient ischemic attack) (Acute) Stroke (Acute) You will use the following diet at home:: Cardiac Your food should be the consistency of: Regular Discharge Activity: May Not Drive - for at least 3 months unless cleared by Neurologist/PCP Additional Instructions: Outpatient follow-up with the speech language therapist Allergies/Adverse Reactions: Allergies Dxymagh-Bqk-Eny Reductase Inhibitor Allergy (Verified 02/10/18 18:21) Other Medications to take at Discharge Aspirin [Aspirin, Baby] 81 mg PO DAILY 10/04/13 Multivitamins,Therapeutic [Multivitamin] 1 tablet PO DAILY 10/04/13 [place]-3/Dha/Epa/Fish Oil [Fish Oil Dr 500 mg Softgel] 500 mg PO DAILY 10/04/13 Metoprolol Succinate [Toprol Xl] 50 mg PO DAILY 02/10/18 Pravastatin Sodium 80 mg PO QHS 02/10/18 Amlodipine [Norvasc] 5 mg PO DAILY #0 02/12/18 Clopidogrel Bisulfate [Plavix] 75 mg PO DAILY #30 tab 02/12/18 Losartan Potassium [Cozaar] 100 mg PO DAILY #0 02/12/18 The following prescriptions were given: Clopidogrel Bisulfate [Plavix] 75 mg PO DAILY #30 tab Primary Care Physician: Calvin Rouse DO [Primary Care Provider] - Please follow up with your Primary Care Physician in: IN 2 WEEKS Please Follow Up With: Jami Scott MD When: in 2-3 weeks
[2018-02-12] MEDS: Losartan Potassium 100 MG Tablet PO (12:40)
--- NOTE | 2018-02-12 13:20 | CASEMGMT ---
RN LOGAN Face to Face with patient for initial transition planning/care coordination assessment. RN CM introduced self and role at [facility]. Patient lying in bed, alert and oriented. Patient willing to participate in assessment and is able to answer all questions appropriately. Care providers, pharmacy, and demographics verified. See link attached. Patient wishes to discharge home, denies need for home health at this time. Patient states he has no further needs or concerns at this time. CM to follow for discharge planning needs that may arise. Disposition Plan: Patient to discharge home with family support and follow-up plans in place.
--- NOTE | 2018-02-12 13:35 | CASEMGMT ---
FIDE spoke with patient's per her request. She said she checked with insurance and she wanted to make sure Medicare is billed first for the rehab. FIDE told her patient is not going to qualify for rehab or care home. FIDE explained therapy is recommending home as patient walked 450' with no assistive device. She said she works and he needs someone to stay with him. FIDE told her that SW could give her a private duty list or we could set up home health. She declined this stating she does not want anyone in her home while she is gone. She wants to be the one to stay with him. She works for the [employer] and has 3 weeks left. She may take sick time and then family leave. 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 She was open to FIDE giving her information. FIDE also told her she could private pay for a care home and she did not want to do this. She asked SW if patient could stay another night. SW told her SW will talk with physician and let her know. Physician said he would keep patient one more night. Plan: Home with outpatient speech therapy. Yessenia VILLAREAL MSW
--- NOTE | 2018-02-12 13:52 | CASEMGMT ---
Per Dr. Gilmore, pt to be sent home on outpatient speech therapy. Order obtained and faxed to [facility] at this time. Original order to at this time with instruction, voices understanding. Pt/ voice no further questions/concerns/needs at this time. Catrachita ARAUJO CM
--- NOTE | 2018-02-12 14:57 | PCM.PN.HOSP ---
Patient Problems: Active and Suspected Problems TIA (transient ischemic attack) (Acute) Stroke (Acute) Subjective: Seen and examined. Findings of the different tests including MRI of brain, MRA head and neck, 2D echo, speech therapy evaluation and overall stroke evaluation and treatment discussed with the patient . Patient is still sometimes get confused, does not have good recall and memory registration of recent events, even regarding whether he ate his breakfast is very apprehensive and taking care of him at home with recent change in memory Vitals/I&O's: Vital Signs Temp Pulse Resp BP Pulse Ox 98.0 F 69 16 155/75 H 97 02/12/18 13:30 02/12/18 13:30 02/12/18 13:30 02/12/18 13:30 02/12/18 13:30 Oxygen Delivery Method Room Air Body Mass Index (BMI) 28.7 Intake and Output for Last 24 Hours 02/10/18 02/11/18 02/12/18 23:59 23:59 23:59 Intake Total 845 / 2845 2797 / 2797 Balance 845 / 2845 2797 / 2797 General: Alert, Oriented x3, Cooperative HEENT: Atraumatic, PERRLA, EOMI, Normocephalic Neck: Supple, No JVD, Negative Carotid Bruits Lungs: Clear to auscultation, Normal air movement, No rhonchi, No wheeze, No rales Cardiovascular: Regular rate, Regular Rhythm, Normal S1, Normal S2, No murmurs Abdomen: Bowel Sounds Present, Soft, Non Tender, Non-Distended Extremities: No edema, Capillary Refill Less than 3 Seconds Skin: No rashes, No breakdown Musculoskeletal: No Tenderness to Palpation of Joints or Extremities Neurological: Cranial nerves II-XII grossly intact, - - No obstructing/aphasia. As per neurologist, NIH stroke scale 2 with 1.4 mild plantar drift on the right side and mild left upper extremity ataxia Psych/Mental Status: Normal Affect, Appropriate Current Medications Acetaminophen (Tylenol) 650 mg PO Q4H PRN PRN PRN Reason: Headache/Temp>99F Acetaminophen (Tylenol) 650 mg RECTAL Q4H PRN PRN PRN Reason: Headache/Temp>99F Acetaminophen (Tylenol Liquid) 650 mg NG Q4H PRN PRN PRN Reason: Headache/Temp>99F Aspirin (Aspirin, Baby) 81 mg PO DAILY@0800 [facility] Last Admin: 02/12/18 11:00 Dose: 81 mg Clopidogrel Bisulfate (Plavix) 75 mg PO DAILY [facility] Last Admin: 02/12/18 11:00 Dose: 75 mg Famotidine (Pepcid) 20 mg PO BID [facility] Last Admin: 02/12/18 11:00 Dose: 20 mg Haloperidol (Haldol) 0.5 mg PO TID PRN PRN PRN Reason: AGITATION Last Admin: 02/12/18 03:04 Dose: 0.5 mg Losartan Potassium (Cozaar) 100 mg PO DAILY [facility] Last Admin: 02/12/18 12:40 Dose: 100 mg Metoprolol Succinate (Toprol Xl (Beta [place])) 50 mg PO DAILY [facility] Multivitamins (Multivitamin) 1 tablet PO DAILYCM [facility] Pravastatin Sodium (Pravachol) 80 mg PO QHS [facility] Last Admin: 02/11/18 22:02 Dose: 80 mg Sodium Chloride () 5 - 30 ml IV UD PRN PRN Reason: SALINE FLUSH Medical Necessity - Tobacco Use Smoking Status: Former smoker Tobacco Use: Cigarettes Assessment/Plan Active and Suspected Problems TIA (transient ischemic attack) (Acute) Stroke (Acute) The patient is a 72 y/o M with history of Prostate CA Dx 10 years prior, HTN, HLD, GERD, Hx [place]/CAD s/p PCI x 1 is being admitted on 02/10/18 with history of concussion approximately 2 years prior with forgetfulness following however the last 3 weeks notes progressively worsening confusion, and disorganized and peculiar behavior (1) subacute linear lacunar ischemic infarct in the right posterior internal capsule extending to the right periventricular white matter : CT head without acute findings, EKG with no acute evidence of ischemia. Brain MRI brain as mentioned above. MRI and MRA are normal. Discussed with the neurologist, Dr. Scott. Further PT OT and speech evaluation. EKG shows normal sinus rhythm. Bubble contrast study is negative for scmbu-fr-[id number] atrial shunt. 2D echo reported as EF 65% with a stage I diastolic dysfunction. No regional wall motion abnormality. Left atrium mildly enlarged. Normal right atrium. Bubble contrast study is negative for right -left interatrial shunt. (2) Hypertension: Permissive. Started back on losartan. Blood pressure was between 150s-160s and stroke is subacute probably happened 2-3 days prior to admission (3) Hyperlipidemia: Noted statin allergy. Lipid profile glyceride 258, HDL 36 and LDL 68. (4) CAD: s/p [place], maintain on asa, statin allergy noted. (5) Hx Prostate CA: Dx 10 years prior, stable, remission. (6) DVT prophylaxis: SCDs, lovenox. Laboratory Results 02/10/18 19:25: Urine Color Straw, Urine Clarity Clear, Urine pH 7.0, Ur Specific [place] 1.010, Urine Protein Negative, Urine Glucose (UA) Normal, Urine Ketones Negative, Urine Occult Blood Negative, Urine Nitrite Negative, Urine Bilirubin Negative, Urine Urobilinogen Normal, Ur Leukocyte Esterase Negative, Urine RBC 0 SEEN, Urine WBC 0 SEEN, Ur Squamous Epith Cells 0 SEEN, Urine Bacteria 0 SEEN, Urine Mucus 0 SEEN 02/10/18 19:34: WBC 5.9, RBC 4.41 L, Hgb 12.7 L, Hct 38.3 L, MCV 86.8, MCH 28.8, MCHC 33.2, RDW 13.2, RDW Differential 42.1, Plt Count 213, MPV 9.7, Immature Gran % (Auto) 0.000, Neut % (Auto) 52.9, Lymph % (Auto) 29.6, [place] % (Auto) 12.8 H, Eos % (Auto) 4.4, Baso % (Auto) 0.3, Absolute Neuts (auto) 3.1, Absolute Lymphs (auto) 1.75, Total Counted Not Reportable 02/10/18 19:34: Sodium 143, Potassium 3.7, Chloride 109 H, Carbon Dioxide 27.0, Anion Gap 7, BUN 13, Creatinine 1.08, Estim Creat Clear Calc 60.01, Est GFR (MDRD) Af Amer 86, Est GFR (MDRD) Non-Af 71, BUN/Creatinine Ratio 12.0, Glucose 84, Calcium 8.4 L, Total Bilirubin 0.20, Direct Bilirubin 0.05, AST 20, ALT 23, Alkaline Phosphatase 72, Troponin I < 0.015, Total Protein 7.0, Albumin 3.2, Globulin 3.8 02/10/18 19:34: Magnesium 2.1, TSH 2.18 02/11/18 05:10: Hemoglobin A1c 5.4 02/11/18 05:20: Triglycerides 258 H, Cholesterol 156, LDL Cholesterol 68, VLDL Cholesterol 52 H, HDL Cholesterol 36 L 02/11/18 05:20: TSH 2.79 02/11/18 05:20: Vitamin B12 Pending Clinical Impression(s) from Imaging Studies Brain CT 02/10/18 19:08 IMPRESSION: No acute intracranial findings. Negative for hemorrhage, hematoma or mass density. Mild involutional changes appropriate for age. Incidental sinus findings as stated above. Brain MRI 02/11/18 23:04 IMPRESSION: Early subacute linear lacunar ischemic infarct in the right posterior internal capsule extending to the right periventricular white matter. This may be cardioembolic as the MRA of the head and neck are unremarkable. Code Visit Inpatient E&M: 17881 Subs Hosp L2
--- NOTE | 2018-02-12 15:09 | PN_ITS ---
Patient Problems: Active and Suspected Problems TIA (transient ischemic attack) (Acute) Stroke (Acute) Subjective: Seen and examined. Findings of the different tests including MRI of brain, MRA head and neck, 2D echo, speech therapy evaluation and overall stroke evaluation and treatment discussed with the patient . Patient is still sometimes get confused, does not have good recall and memory registration of recent events, even regarding whether he ate his breakfast is very apprehensive and taking care of him at home with recent change in memory Vitals/I&O's: Vital Signs Temp Pulse Resp BP Pulse Ox 98.0 F 69 16 155/75 H 97 02/12/18 13:30 02/12/18 13:30 02/12/18 13:30 02/12/18 13:30 02/12/18 13:30 Oxygen Delivery Method Room Air Body Mass Index (BMI) 28.7 Intake and Output for Last 24 Hours 02/10/18 02/11/18 02/12/18 23:59 23:59 23:59 Intake Total 845 / 2845 2797 / 2797 Balance 845 / 2845 2797 / 2797 General: Alert, Oriented x3, Cooperative HEENT: Atraumatic, PERRLA, EOMI, Normocephalic Neck: Supple, No JVD, Negative Carotid Bruits Lungs: Clear to auscultation, Normal air movement, No rhonchi, No wheeze, No rales Cardiovascular: Regular rate, Regular Rhythm, Normal S1, Normal S2, No murmurs Abdomen: Bowel Sounds Present, Soft, Non Tender, Non-Distended Extremities: No edema, Capillary Refill Less than 3 Seconds Skin: No rashes, No breakdown Musculoskeletal: No Tenderness to Palpation of Joints or Extremities Neurological: Cranial nerves II-XII grossly intact, - - No obstructing/aphasia. As per neurologist, NIH stroke scale 2 with 1.4 mild plantar drift on the right side and mild left upper extremity ataxia Psych/Mental Status: Normal Affect, Appropriate Current Medications Acetaminophen (Tylenol) 650 mg PO Q4H PRN PRN PRN Reason: Headache/Temp>99F Acetaminophen (Tylenol) 650 mg RECTAL Q4H PRN PRN PRN Reason: Headache/Temp>99F Acetaminophen (Tylenol Liquid) 650 mg NG Q4H PRN PRN PRN Reason: Headache/Temp>99F Aspirin (Aspirin, Baby) 81 mg PO DAILY@0800 [facility] Last Admin: 02/12/18 11:00 Dose: 81 mg Clopidogrel Bisulfate (Plavix) 75 mg PO DAILY [facility] Last Admin: 02/12/18 11:00 Dose: 75 mg Famotidine (Pepcid) 20 mg PO BID [facility] Last Admin: 02/12/18 11:00 Dose: 20 mg Haloperidol (Haldol) 0.5 mg PO TID PRN PRN PRN Reason: AGITATION Last Admin: 02/12/18 03:04 Dose: 0.5 mg Losartan Potassium (Cozaar) 100 mg PO DAILY [facility] Last Admin: 02/12/18 12:40 Dose: 100 mg Metoprolol Succinate (Toprol Xl (Beta [place])) 50 mg PO DAILY [facility] Multivitamins (Multivitamin) 1 tablet PO DAILYCM [facility] Pravastatin Sodium (Pravachol) 80 mg PO QHS [facility] Last Admin: 02/11/18 22:02 Dose: 80 mg Sodium Chloride () 5 - 30 ml IV UD PRN PRN Reason: SALINE FLUSH Medical Necessity - Tobacco Use Smoking Status: Former smoker Tobacco Use: Cigarettes Assessment/Plan Active and Suspected Problems TIA (transient ischemic attack) (Acute) Stroke (Acute) The patient is a 72 y/o M with history of Prostate CA Dx 10 years prior, HTN, HLD, GERD, Hx [place]/CAD s/p PCI x 1 is being admitted on 02/10/18 with history of concussion approximately 2 years prior with forgetfulness following however the last 3 weeks notes progressively worsening confusion, and disorganized and peculiar behavior (1) subacute linear lacunar ischemic infarct in the right posterior internal capsule extending to the right periventricular white matter : CT head without acute findings, EKG with no acute evidence of ischemia. Brain MRI brain as mentioned above. MRI and MRA are normal. Discussed with the neurologist, Dr. Scott. Further PT OT and speech evaluation. EKG shows normal sinus rhythm. Bubble contrast study is negative for [id number]-zb-[id number] atrial shunt. 2D echo reported as EF 65% with a stage I diastolic dysfunction. No regional wall motion abnormality. Left atrium mildly enlarged. Normal right atrium. Bubble contrast study is negative for right -left interatrial shunt. (2) Hypertension: Permissive. Started back on losartan. Blood pressure was between 150s-160s and stroke is subacute probably happened 2-3 days prior to admission (3) Hyperlipidemia: Noted statin allergy. Lipid profile glyceride 258, HDL 36 and LDL 68. (4) CAD: s/p [place], maintain on asa, statin allergy noted. (5) Hx Prostate CA: Dx 10 years prior, stable, remission. (6) DVT prophylaxis: SCDs, lovenox. Laboratory Results 02/10/18 19:25: Urine Color Straw, Urine Clarity Clear, Urine pH 7.0, Ur Specific [place] 1.010, Urine Protein Negative, Urine Glucose (UA) Normal, Urine Ketones Negative, Urine Occult Blood Negative, Urine Nitrite Negative, Urine Bilirubin Negative, Urine Urobilinogen Normal, Ur Leukocyte Esterase Negative, Urine RBC 0 SEEN, Urine WBC 0 SEEN, Ur Squamous Epith Cells 0 SEEN, Urine Bacteria 0 SEEN, Urine Mucus 0 SEEN 02/10/18 19:34: WBC 5.9, RBC 4.41 L, Hgb 12.7 L, Hct 38.3 L, MCV 86.8, MCH 28.8 , MCHC 33.2, RDW 13.2, RDW Differential 42.1, Plt Count 213, MPV 9.7, Immature Gran % (Auto) 0.000, Neut % (Auto) 52.9, Lymph % (Auto) 29.6, [place] % (Auto) 12.8 H, Eos % (Auto) 4.4, Baso % (Auto) 0.3, Absolute Neuts (auto) 3.1, Absolute Lymphs (auto) 1.75, Total Counted Not Reportable 02/10/18 19:34: Sodium 143, Potassium 3.7, Chloride 109 H, Carbon Dioxide 27.0, Anion Gap 7, BUN 13, Creatinine 1.08, Estim Creat Clear Calc 60.01, Est GFR ( MDRD) Af Amer 86, Est GFR (MDRD) Non-Af 71, BUN/Creatinine Ratio 12.0, Glucose 84, Calcium 8.4 L, Total Bilirubin 0.20, Direct Bilirubin 0.05, AST 20, ALT 23, Alkaline Phosphatase 72, Troponin I < 0.015, Total Protein 7.0, Albumin 3.2, Globulin 3.8 02/10/18 19:34: Magnesium 2.1, TSH 2.18 02/11/18 05:10: Hemoglobin A1c 5.4 02/11/18 05:20: Triglycerides 258 H, Cholesterol 156, LDL Cholesterol 68, VLDL Cholesterol 52 H, HDL Cholesterol 36 L 02/11/18 05:20: TSH 2.79 02/11/18 05:20: Vitamin B12 Pending Clinical Impression(s) from Imaging Studies Brain CT 02/10/18 19:08 IMPRESSION: No acute intracranial findings. Negative for hemorrhage, hematoma or mass density. Mild involutional changes appropriate for age. Incidental sinus findings as stated above. Brain MRI 02/11/18 23:04 IMPRESSION: Early subacute linear lacunar ischemic infarct in the right posterior internal capsule extending to the right periventricular white matter. This may be cardioembolic as the MRA of the head and neck are unremarkable. Code Visit Inpatient E&M: 18208 Subs Hosp L2
[2018-02-12] MEDS: Pravastatin 80 MG Tablet PO (23:01)
[2018-02-12] MEDS: Acetaminophen 325 MG Tablet 650 MG PO (23:14)
[2018-02-13] VITALS (8 sets, daily range): BP systolic 155–167; BP diastolic 68–87; PULSE 63–85; RESP 16–20; TEMP 36.6–36.9; O2SAT 97–99; BMI 28.7
--- NOTE | 2018-02-13 04:40 | NURSING ---
This nurse handed over care of this pt. to Parrish ARAUJO at this time. Report complete.
[2018-02-13] MEDS: Metoprolol(XL)Succ 50 MG Tablet PO (09:02)
[2018-02-13] MEDS: Multivitamins,Therapeutic Tablet 1 TABLET PO (09:03)
[2018-02-13] MEDS: Clopidogrel Bisulfate 75 MG Tablet PO (09:03)
[2018-02-13] MEDS: Famotidine 20 MG Tablet PO (09:03)
[2018-02-13] MEDS: Aspirin 81 MG TAB.CHEW PO (09:03)
[2018-02-13] MEDS: Losartan Potassium 100 MG Tablet PO (09:03)
[2018-02-13] MEDS: Acetaminophen 325 MG Tablet 650 MG PO (10:00)
--- NOTE | 2018-02-13 10:35 | DCINST_ITS ---
- Discharge Diagnoses Current Active Problems: Current Active and Chronic Problems Prostate cancer (Chronic) HTN (hypertension) (Chronic) HLD (hyperlipidemia) (Chronic) GERD (gastroesophageal reflux disease) (Chronic) History of [place] (myocardial infarction) (Chronic) Dementia (Chronic) TIA (transient ischemic attack) (Acute) Stroke (Acute) Discharge Activity: May Not Drive - for at least 3 months unless cleared by Neurologist/PCP Allergies/Adverse Reactions: Allergies Pqzekci-Ynz-Ntg Reductase Inhibitor Allergy (Verified 02/10/18 18:21) Other Medications to take at Discharge Aspirin [Aspirin, Baby] 81 mg PO DAILY 10/04/13 Multivitamins,Therapeutic [Multivitamin] 1 tablet PO DAILY 10/04/13 [place]-3/Dha/Epa/Fish Oil [Fish Oil Dr 500 mg Softgel] 500 mg PO DAILY 10/04/13 Metoprolol Succinate [Toprol Xl] 50 mg PO DAILY 02/10/18 Pravastatin Sodium 80 mg PO QHS 02/10/18 Amlodipine [Norvasc] 5 mg PO DAILY #0 02/12/18 Clopidogrel Bisulfate [Plavix] 75 mg PO DAILY #30 tab 02/12/18 Losartan Potassium [Cozaar] 100 mg PO DAILY #0 02/12/18 The following prescriptions were given: Clopidogrel Bisulfate [Plavix] 75 mg PO DAILY #30 tab Primary Care Physician: Calvin Rouse DO [Primary Care Provider] - Please follow up with your Primary Care Physician in: IN 2 WEEKS Please Follow Up With: Jami Scott MD When: in 2-3 weeks
--- NOTE | 2018-02-13 10:36 | PCM.DC.SUM ---
Discharge Date and Diagnosis - Problem List Patient Problems: Active and Suspected Problems TIA (transient ischemic attack) (Acute) Stroke (Acute) Date of Admission: 02/10/18 Date of Discharge: 02/13/18 - Primary Discharge Diagnosis Active and Suspected Problems TIA (transient ischemic attack) (Acute) Stroke (Acute) Recurrent fall - Secondary Discharge Diagnosis Chronic Problems Prostate cancer (Chronic) HTN (hypertension) (Chronic) HLD (hyperlipidemia) (Chronic) GERD (gastroesophageal reflux disease) (Chronic) History of PA (myocardial infarction) (Chronic) Dementia (Chronic) Hospital Course and Treatment Imaging Results: 02/13/18 10:31 Knee 1 or 2 Views [RAD] Urgent Summary of Care Provided: [] The patient is a 72 y/o M with history of Prostate CA Dx 10 years prior, HTN, HLD, GERD, Hx PA/CAD s/p PCI x 1 is being admitted on 02/10/18 with history of concussion approximately 2 years prior with forgetfulness following however the last 3 weeks notes progressively worsening confusion, and disorganized and peculiar behavior Pt had concern about fall and bruise in right knee. Patient had about 3 times fall in right in a month to 1-1/2 month. General: Alert, Oriented x3, Cooperative HEENT: Atraumatic, PERRLA, EOMI, Normocephalic Neck: Supple, No JVD, Negative Carotid Bruits Lungs: Clear to auscultation, Normal air movement, No rhonchi, No wheeze, No rales Cardiovascular: Regular rate, Regular Rhythm, Normal S1, Normal S2, No murmurs Abdomen: Bowel Sounds Present, Soft, Non Tender, Non-Distended Extremities: No edema, Capillary Refill Less than 3 Seconds. Small erythema over right kneecap. No tenderness. Skin: No rashes, No breakdown Musculoskeletal: No Tenderness to Palpation of Joints or Extremities Neurological: Cranial nerves II-XII grossly intact, - - No obstructing/aphasia. No neurological deficit. Patient had NIH stroke scale 2 with 1 for mild plantar drift on the right side and mild left upper extremity ataxia (1) Subacute linear lacunar ischemic infarct in the right posterior internal capsule extending to the right periventricular white matter : CT head without acute findings, EKG with no acute evidence of ischemia. Brain MRI brain as mentioned above. MRI and MRA are normal. Discussed with the neurologist, Dr. Scott. Further PT OT and speech evaluation. EKG shows normal sinus rhythm. Bubble contrast study is negative for rjqyr-fe-dkob atrial shunt. 2D echo reported as EF 65% with a stage I diastolic dysfunction. No regional wall motion abnormality. Left atrium mildly enlarged. Normal right atrium. Bubble contrast study is negative for right -left interatrial shunt. (2) Hypertension: Permissive. Started back on losartan and amlodopine. Blood pressure was between 150s-160s and stroke is subacute probably happened 2-3 days prior to admission (3) Hyperlipidemia: Noted statin allergy. Lipid profile glyceride 258, HDL 36 and LDL 68. (4) CAD: s/p PA, maintain on asa, statin allergy noted. (5) Hx Prostate CA: Dx 10 years prior, stable, remission. Follow-up with PCP Recurrent fall: Small erythema/bruise over right knee. No open ulcer. Right knee x-ray and reviewed. Mainly shows degenerative changes with bony osteopenia. Nonspecific focus of sclerosis in proximal tibia mainly overlap of shadows with tibial tuberosity. Follow with PCP for osteoarthritis. (6) DVT prophylaxis: SCDs, lovenox. Discharge medication reconciliation done. Discharge follow-up instructions given. Hospital course and different imaging test and patient's and his and daughters concerns were answered and addressed. Total time spent, exact 35 minutes on discharge meds reconciliation, examination, review of imaging and blood test and discussion with the patient on follow-up instructions. Knee X-Ray 02/13/18 11:20 IMPRESSION: Degenerative change bony osteopenia. Nonspecific focus of sclerosis in the proximal tibia which likely represents partial summation of shadows with the tibial tuberosity. Recommend correlation with any neoplastic history potentially osteoblastic disease could have this appearance versus benign sclerosis or bone lesion. Electronically Signed: Darby Lewis MD at 13:19 EDT Tel , Service support , Discharge Activity: May Not Drive - for at least 3 months unless cleared by Neurologist/PCP Home Medications: Medications to take at Discharge Aspirin [Aspirin, Baby] 81 mg PO DAILY 10/04/13 Multivitamins,Therapeutic [Multivitamin] 1 tablet PO DAILY 10/04/13 [place]-3/Dha/Epa/Fish Oil [Fish Oil Dr 500 mg Softgel] 500 mg PO DAILY 10/04/13 Metoprolol Succinate [Toprol Xl] 50 mg PO DAILY 02/10/18 Pravastatin Sodium 80 mg PO QHS 02/10/18 Amlodipine [Norvasc] 5 mg PO DAILY #0 02/12/18 Clopidogrel Bisulfate [Plavix] 75 mg PO DAILY #30 tab 02/12/18 Losartan Potassium [Cozaar] 100 mg PO DAILY #0 02/12/18 Following Prescrptions Were Given to Patient: Clopidogrel Bisulfate [Plavix] 75 mg PO DAILY #30 tab Primary Care Physician: Calvin Rouse DO [Primary Care Provider] - Please follow up with your Primary Care Physician in: IN 2 WEEKS Please Follow Up With: Jami Scott MD When: in 2-3 weeks Medical Necessity - Tobacco Use Smoking Status: Former smoker Tobacco Use: Cigarettes Meaningful Use Info Meaningful Use Diagnoses (Choose all that apply): Ischemic CVA - CVA Therapy Assessed for PT,OT and/or ST?: Yes - Ischemic Stroke Antithrombotic order at d/c?: Yes Dx of Atrial fib/flutter?: No Anticoagulant at discharge?: Yes Statins at discharge?: Yes Primary Dx Acute Ischemic CVA?: Yes IV tPA ordered during stay?: No Reason IV t-PA not ordered: Treatment not Indicated - Subacute about 2-3 weeks of Code Visit Inpatient E&M: [id number] Disch Hosp
--- NOTE | 2018-02-13 10:39 | DS.PCM_ITS ---
Discharge Date and Diagnosis - Problem List Patient Problems: Active and Suspected Problems TIA (transient ischemic attack) (Acute) Stroke (Acute) Date of Admission: 02/10/18 Date of Discharge: 02/13/18 - Primary Discharge Diagnosis Active and Suspected Problems TIA (transient ischemic attack) (Acute) Stroke (Acute) Recurrent fall - Secondary Discharge Diagnosis Chronic Problems Prostate cancer (Chronic) HTN (hypertension) (Chronic) HLD (hyperlipidemia) (Chronic) GERD (gastroesophageal reflux disease) (Chronic) History of [place] (myocardial infarction) (Chronic) Dementia (Chronic) Hospital Course and Treatment Imaging Results: 02/13/18 10:31 Knee 1 or 2 Views [RAD] Urgent Summary of Care Provided: [] The patient is a 72 y/o M with history of Prostate CA Dx 10 years prior, HTN, HLD, GERD, Hx [place]/CAD s/p PCI x 1 is being admitted on 02/10/18 with history of concussion approximately 2 years prior with forgetfulness following however the last 3 weeks notes progressively worsening confusion, and disorganized and peculiar behavior Pt had concern about fall and bruise in right knee. Patient had about 3 times fall in right in a month to 1-1/2 month. General: Alert, Oriented x3, Cooperative HEENT: Atraumatic, PERRLA, EOMI, Normocephalic Neck: Supple, No JVD, Negative Carotid Bruits Lungs: Clear to auscultation, Normal air movement, No rhonchi, No wheeze, No rales Cardiovascular: Regular rate, Regular Rhythm, Normal S1, Normal S2, No murmurs Abdomen: Bowel Sounds Present, Soft, Non Tender, Non-Distended Extremities: No edema, Capillary Refill Less than 3 Seconds. Small erythema over right kneecap. No tenderness. Skin: No rashes, No breakdown Musculoskeletal: No Tenderness to Palpation of Joints or Extremities Neurological: Cranial nerves II-XII grossly intact, - - No obstructing/aphasia. No neurological deficit. Patient had NIH stroke scale 2 with 1 for mild plantar drift on the right side and mild left upper extremity ataxia (1) Subacute linear lacunar ischemic infarct in the right posterior internal capsule extending to the right periventricular white matter : CT head without acute findings, EKG with no acute evidence of ischemia. Brain MRI brain as mentioned above. MRI and MRA are normal. Discussed with the neurologist, Dr. Scott. Further PT OT and speech evaluation. EKG shows normal sinus rhythm. Bubble contrast study is negative for apibk-wa-kybs atrial shunt. 2D echo reported as EF 65% with a stage I diastolic dysfunction. No regional wall motion abnormality. Left atrium mildly enlarged. Normal right atrium. Bubble contrast study is negative for right -left interatrial shunt. (2) Hypertension: Permissive. Started back on losartan and amlodopine. Blood pressure was between 150s-160s and stroke is subacute probably happened 2-3 days prior to admission (3) Hyperlipidemia: Noted statin allergy. Lipid profile glyceride 258, HDL 36 and LDL 68. (4) CAD: s/p NH, maintain on asa, statin allergy noted. (5) Hx Prostate CA: Dx 10 years prior, stable, remission. Follow-up with PCP Recurrent fall: Small erythema/bruise over right knee. No open ulcer. Right knee x-ray and reviewed. Mainly shows degenerative changes with bony osteopenia. Nonspecific focus of sclerosis in proximal tibia mainly overlap of shadows with tibial tuberosity. Follow with PCP for osteoarthritis. (6) DVT prophylaxis: SCDs, lovenox. Discharge medication reconciliation done. Discharge follow-up instructions given. Hospital course and different imaging test and patient's and his and daughters concerns were answered and addressed. Total time spent, exact 35 minutes on discharge meds reconciliation, examination , review of imaging and blood test and discussion with the patient on follow-up instructions. Knee X-Ray 02/13/18 11:20 IMPRESSION: Degenerative change bony osteopenia. Nonspecific focus of sclerosis in the proximal tibia which likely represents partial summation of shadows with the tibial tuberosity. Recommend correlation with any neoplastic history potentially osteoblastic disease could have this appearance versus benign sclerosis or bone lesion. Electronically Signed: Darby Lewis MD at 13:19 EDT Tel , Service support , Discharge Activity: May Not Drive - for at least 3 months unless cleared by Neurologist/PCP Home Medications: Medications to take at Discharge Aspirin [Aspirin, Baby] 81 mg PO DAILY 10/04/13 Multivitamins,Therapeutic [Multivitamin] 1 tablet PO DAILY 10/04/13 [place]-3/Dha/Epa/Fish Oil [Fish Oil Dr 500 mg Softgel] 500 mg PO DAILY 10/04/13 Metoprolol Succinate [Toprol Xl] 50 mg PO DAILY 02/10/18 Pravastatin Sodium 80 mg PO QHS 02/10/18 Amlodipine [Norvasc] 5 mg PO DAILY #0 02/12/18 Clopidogrel Bisulfate [Plavix] 75 mg PO DAILY #30 tab 02/12/18 Losartan Potassium [Cozaar] 100 mg PO DAILY #0 02/12/18 Following Prescrptions Were Given to Patient: Clopidogrel Bisulfate [Plavix] 75 mg PO DAILY #30 tab Primary Care Physician: Calvin Rouse DO [Primary Care Provider] - Please follow up with your Primary Care Physician in: IN 2 WEEKS Please Follow Up With: Jami Scott MD When: in 2-3 weeks Medical Necessity - Tobacco Use Smoking Status: Former smoker Tobacco Use: Cigarettes Meaningful Use Info Meaningful Use Diagnoses (Choose all that apply): Ischemic CVA - CVA Therapy Assessed for PT,OT and/or ST?: Yes - Ischemic Stroke Antithrombotic order at d/c?: Yes Dx of Atrial fib/flutter?: No Anticoagulant at discharge?: Yes Statins at discharge?: Yes Primary Dx Acute Ischemic CVA?: Yes IV tPA ordered during stay?: No Reason IV t-PA not ordered: Treatment not Indicated - Subacute about 2-3 weeks of Code Visit Inpatient E&M: [id number] Disch Hosp
--- NOTE | 2018-02-13 11:20 | RAD_ITS ---
STUDY: X-RAY - RIGHT KNEE REASON FOR EXAM: Male, 72 years old. Pain, fall TECHNIQUE: 2 view(s) of the knee. COMPARISON: None. FINDINGS: There is demineralization of the visualized distal femur. There is demineralization of the tibia and fibula. Exception of a focus of sclerosis in the proximal tibia. Normal proximal tibiofibular articulation. There is mild degenerative arthrosis of the medial femorotibial compartment. There is mild degenerative arthrosis of the lateral femorotibial compartment. There is mild degenerative arthrosis of the patellofemoral articulation. There is robust and there is adenopathy at the quadriceps and patellar insertion. The soft tissue structures are unremarkable. RAD/Knee 1 or 2 Views IMPRESSION: Degenerative change bony osteopenia. Nonspecific focus of sclerosis in the proximal tibia which likely represents partial summation of shadows with the tibial tuberosity. Recommend correlation with any neoplastic history potentially osteoblastic disease could have this appearance versus benign sclerosis or bone lesion. Electronically Signed: Darby Lewis MD at 13:19 EDT Tel , Service support ,
== END 2018-02-13 14:33 | disposition home or self-care (01) | DRG 64 ==
LOC: ED 21:10 → PCU 22:16
PROVIDERS: Psychiatry & Neurology Neurology; Admitting Provider Family Medicine; Emergency Provider Emergency Medicine; Family Provider Pediatrics; PCP Pediatrics; Visit Provider Internal Medicine
DX: I63.9 Cerebral infarction, unspecified (principal); G93.40 Encephalopathy, unspecified; E78.5 Hyperlipidemia, unspecified; I10 Essential (primary) hypertension; I25.2 Old myocardial infarction; Z87.891 Personal history of nicotine dependence; K21.9 Gastro-esophageal reflux disease without esophagitis; C61 Malignant neoplasm of prostate; F03.90 Unspecified dementia, unspecified severity, without behavioral disturbance, psychotic disturbance, mood disturbance, and anxiety; R27.0 Ataxia, unspecified; R29.702 NIHSS score 2; I25.10 Atherosclerotic heart disease of native coronary artery without angina pectoris; Z95.5 Presence of coronary angioplasty implant and graft; R29.6 Repeated falls
CPT/HCPCS: 36415; 70450; 70544; 70547; 70551; 73560; 80048; 80061; 80076; 81001; 82607; 83036; 83735; 84443; 84484; 85025; 92507; 92523; 93005; 93306; 97110; 97116; 97162; 97165; 97530; 99283; J7030; Q9957; A4216

== ENCOUNTER 2018-02-15 09:59 | Emergency (ER) | payer MEDICARE, OTHER, SELFPAY ==
[2018-02-15 10:00] VITALS: BP 148/83; PULSE 74; RESP 15; TEMP 36.8; O2SAT 97; BMI 28.8
--- NOTE | 2018-02-15 10:21 | RAD_ITS ---
STUDY: X-RAY - RIGHT KNEE REASON FOR EXAM: Male, 72 years old. Knee pain and swelling. No known injury. TECHNIQUE: 4 view(s) of the knee. COMPARISON: Comparison is made with prior study dated February 13, 2018. FINDINGS: Normal visualized distal femur. Normal visualized proximal tibia and fibula. Normal proximal tibiofibular articulation. Normal medial femorotibial compartment. Normal lateral femorotibial compartment. There is moderate degenerative arthrosis of the patellofemoral articulation. Elements of the spurring at the insertion of the quadriceps tendon and patellar tendons. Prepatellar soft tissue swelling. RAD/Knee 4 or More Views IMPRESSION: Degenerative changes of the patellofemoral joint with degenerative spurring at the insertion of the quadriceps tendon and patellar tendon Electronically Signed: Jorge Alberto Cruz MD at 10:54 EDT Tel [phone], Service support ,
--- NOTE | 2018-02-15 10:36 | ED.VISSUMM ---
- ER Visit Summary Date of Service: 02/15/18 Chief Complaint: Right knee pain History of Present Illness: The patient is a 72 M who was recently admitted after stroke. He developed right knee pain about 4 days ago. He had an x-ray performed while he was in the hospital prior to discharge. It was negative. Since discharge, he has had continued pain. He is also noticed redness to his anterior right knee. Denies fever or systemic symptoms. Denies any new weakness or numbness. Denies trauma. He does take aspirin and Plavix. No history of knee infections. No history of clots. No calf pain. Physical Examination: Afebrile and vital signs unremarkable. Patient is in no acute distress. Exam is all fairly unremarkable. His right leg does show erythema and edema anterior to his right patella. He has good range of motion through his knee. He is neurovascularly intact distally. Calf is soft and supple. There is also erythema to his right lateral leg just distal to the knee. Test Results: We will check x-rays, CBC, BMP, ESR, and CRP. Emergency Department Course and Treatment: He declined pain medicine while awaiting results. CRP is elevated but ESR is still pending. White count normal. BMP unremarkable. X-ray unremarkable, just degenerative changes. I reevaluated the patient and there was no change. I do not believe he has a septic joint. He has good range of motion. I believe he has a cellulitis and possible early septic bursitis. There is no large fluid collection to drain. Patient will be placed on a course of Bactrim and Keflex. He is advised to return for new or worsening issues as he could require hospitalization, IV antibiotics, or further diagnostic testing. Otherwise he can follow-up with his primary care doctor. Treatment Plan: Ultram, Keflex, rest, ice, elevate Disposition: Discharge Impression: 1. Right leg cellulitis This note was generated with [employer] dictation software. It may contain incorrect words, spelling, and punctuation that were not noted in review of the chart prior to signing ED Disposition - Plan for ED Patient: Chief Complaint: Lower Extremity Injury Referrals: Adama Jon MD [Primary Care Provider] -
[2018-02-15 10:41] LABS: Absolute Lymphocyte Count 1.18 X10^3/ul (0.83-4.51); Basophil# 0.02 X10^3/uL; Basophil% 0.2 % (0-1); Eosinophil# 0.22 X10^3/uL; Eosinophils% 2.5 % (0-5); Erythrocyte Sedimentation Rate 42 mm/hr (0-20); Hematocrit 39.3 % (40-54); Hemoglobin 13.2 g/dl (13.0-16.5); Lymphocyte # 1.18 X10^3/ul (4.0); Lymphocyte % 13.5 % (19-41); Mean Corp Hgb Conc 33.6 g/gl (32-36); Mean Corpuscular Hgb 29.3 pg (27.0-32.0); Mean Corpuscular Volume 87.3 fL (80-94); Mean Platelet Vol. 10.2 fl (6.2-12.0); Monocyte% 14.9 % (0-10); Neutrophil # 5.99 X10^3/uL (2.7-7.7); Neutrophil % 68.7 % (47-70); Platelet Count 221 K/mm3 (150-450); RBC Distribution Width CV 13.3 % (11.6-14.6); RBC Distribution Width SD 41.3 fl (35.1-43.9); White Blood Count 8.7 K/mm3 (4.4-11.0)
[2018-02-15 10:42] LABS: POSITIVE COUNT NO; POSITIVE DIFFERENTIAL NO; POSITIVE MORPHOLOGY NO
[2018-02-15 10:52] LABS: Anion Gap 6 (5-15); BUN 13 mg/dL (7-18); BUN/Creat Ratio 13.6 RATIO (10-20); Calcium,Total 9.1 mg/dL (8.5-10.1); Chloride 111 mmol/L (98-107); Creatinine, Serum 0.95 mg/dL (0.70-1.30); EST Glomerular Filtration Rate 82 mL/min (>60); Est Glom Filt Rate - Afr Amer 99 mL/min (>60); Estimated Creatinine Clearance 68.22 ml/min; Glucose 114 mg/dL (74-106); Potassium 3.9 mmol/L (3.5-5.1); Sodium Level 142 mmol/L (136-145)
--- NOTE | 2018-02-15 13:27 | ED.DEP ---
ED Disposition - Plan for ED Patient: Chief Complaint: Lower Extremity Injury Instructions: ED Infec Skin Cellulitis Prescriptions: Cephalexin [Keflex] 250 mg PO Q6 #28 cap Smz/Tmp Ds [Bactrim Ds] 1 tab PO BID #14 tab Referrals: Adama Jon MD [Primary Care Provider] -
[2018-02-15] MEDS: Smz/Tmp Ds Tablet 1 TABLET PO (14:05)
[2018-02-15] MEDS: Cephalexin 250 MG Capsule 500 MG PO (14:05)
== END 2018-02-15 14:06 | disposition home or self-care (01) ==
PROVIDERS: Emergency Provider Emergency Medicine; Family Provider Pediatrics; PCP Family Medicine
DX: L03.115 Cellulitis of right lower limb (principal); F03.90 Unspecified dementia, unspecified severity, without behavioral disturbance, psychotic disturbance, mood disturbance, and anxiety; I25.2 Old myocardial infarction; I10 Essential (primary) hypertension; K21.9 Gastro-esophageal reflux disease without esophagitis; E78.00 Pure hypercholesterolemia, unspecified; Z86.73 Personal history of transient ischemic attack (TIA), and cerebral infarction without residual deficits; Z85.46 Personal history of malignant neoplasm of prostate; Z87.891 Personal history of nicotine dependence; Z79.02 Long term (current) use of antithrombotics/antiplatelets; Z79.82 Long term (current) use of aspirin; Z79.899 Other long term (current) drug therapy
CPT/HCPCS: 73564; 80048; 85025; 85652; 86140; 99283; A4216

== ENCOUNTER 2018-02-25 12:30 | Outpatient (RCR) | payer MEDICARE, OTHER, SELFPAY ==
--- NOTE | 2018-02-23 12:13 | HP.SP.AD ---
History - History Date of Eval: 02/16/18 Date of Onset of Diagnosis: 02/10/2018 Previous speech therapy: Yes Results: Patient was admitted to [facility] on 02/10/18.The patient is a 72 y/o male w/ PMHx significant for hx prostate CA Dx 10 years prior, HTN, HLD, GERD, Hx [place]/CAD s/p PCI x 1 who presented to the [facility] ED on 02/10/2018 with history of concussion approximately 2 years prior with forgetfulness following however the last 3 weeks noted progressively worsening confusion, more severe on day of presentation consistently repeating questions and noted per spouse to awoken at approximately 2:30 in the morning and dressing himself for work in addition to not recalling simple things including the meal he just ate. MRI Brain 02/11/2018: Early subacute linear lacunar ischemic infarct in the right posterior internal capsule extending to the right periventricular white matter. This may be cardioembolic as the MRA of the head and neck are unremarkable. MRA Head & Neck : Both unremarkable. Passed RN dysphagia screening. Patient, family & Rekha RN deny swallowing difficulty. Left facial asymmetry noted - eye brow droop, left labial commissure asymmetry w/ premature fall during labial retraction. Informal measures were used to evaluate cognitive-linguistic function this date. was present for evaluation. Patient was fully oriented w/ exception of date, off by one. Reoriented. Answered yes/no ?s w/ 80% accuracy, demonstrating increased difficulty w/ complex/comparison questions. Executed 2 step commands w/ 100% accuracy, 3 step w/ 50% accuracy. 3 word recall: immediate 3/3 and following brief delay (60 seconds) 0/3 although able to recall 1/3 w/ category cue and another 1/3 when given choice of 3. Able to repeat back short story immediately after hearing it 05/22 details recalled. Answered yes/no ?s re: story w/ 03/10 accuracy. When asked to repeat same story following a 5 minute delay, unable to recall any details, but was able to answer a few general questions re: content. Verbal expression is clear and intelligible w/out evidence of dysarthria or apraxia. Generative naming able to name 9 items w/in 15 seconds, although rapid decay in performance thereafter w/ repetition fo items already named and significant groping for additional items w/in category. Reading WNL. reported significant improvement in overall cognitive function compared to function at time of [facility] presentation but does not feel that he is back to baseline function. [ End ] Other Relevant Medical History/Diagnoses/Surgery: 02/11/2018 MRI revealed early subacute linear lacunar ischemic infarct in the right posterior internal capsule extending to the right periventricular white matter. Medications related to this diagnosis: Plavix, aspirin Smoking Status: Former smoker Hx Smoking: Yes Hx Tobacco Use: No Hx Smoking Exposure: No - Pain Is pain an issue with your current prescribed condition?: No - Personal Right Hearing Abillity: Normal Left Hearing Abillity: Normal Visual Assistive Devices: Glasses Patients Living Arrangements: With Significant Other Patient Allergies - Allergies Allergies Qnorwho-Ayc-Qpt Reductase Inhibitor Allergy (Verified 02/15/18 10:03) Other CLQT - CLQT CLQT Administered: Yes CLQT: Cognitive Linguistic Quick Test (CLQT) is a criterion - referenced assessment designed for adults between the ages of 18 and 89 with known or suspected neurological dysfuntions. The CLQT is to assess strength and weaknesses in five cognitive domains. Severity ratings are within normal limits, mild, moderate, severe deficits. The subtests are as follows: Date: 02/23/18 - Attention Attention: Moderate - Memory Memory: WNL - Executive Functions Executive Functions: Moderate - Language Language: Mild - Visuospatial Skills Visuospatial Skills: Mild - Composite Severity Rating Composite Severity Rating: Mild - Clock Drawing Severity Rating Clock Drawing Severity Rating: Mild - CLQT Comments Additonal information. Patient's was present during evalution. Patient was quiet and relied on his to answer questons pertaining his recent hospitalization. Patient stated that previously he had enjoyed being active and enjoyed reading, and working in his yard. His stated that he enjoyed doing [employer] 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 She stated that previous to his hospitalization she had observed that he had lost interest in the project and had not been working on it. Patient stated that his has been doing all the financial matters and banking for the last several years. Plan - Plan Plan: Continue to evaluate patient's present cognitive skills - Recommendations MBS: No Treatment Warranted: Yes - Frequency Frequency: 1x/Week Duration: 4-6 Months Visits in this POC: 10 - Prognosis Prognosis: Good - Goals that are Established: Determination:: Goals will be added/modified as deemed necessary and appropriate. Therapy will be discontinued when results of re-evaluation indicate therapy is no longer needed or lack of progress has been documented. - Goal #1-5 Goal #1: Continue to assess patient's cognitive skills and develop functional objectives that focus on targeting excutive function skills, and thought processing speed. Education - Patient has Indicated that the Following Identified Educational Needs: Cognitively Impaired - Patient Instruction Patient Education: Treatment Plan Person Taught: Patient, Significant Other Teaching Method: Discussion Response to teaching: Verbalize understanding
--- NOTE | 2018-03-04 18:48 | HP.SP.DC_ITS ---
ST Discharge Summary - Discharged: Discharge: Spoke with the Patients via telephone, reports recent appointment with neurologist completed, with the Patients reporting association of progressive cognitive changes to suspected dementia / mild cognitive impairment vs. recent cerebrovascular accident. Discussed therapeutic options, with the Patients reporting recent discussion with Patient regarding desire for continued intervention, with both expressing adequate insight following conversation during recent intervention session, expressed understanding and prior initiation of recommended cognitive based environmental strategies, with both expressing desire to hold any further skilled speech- language intervention at this time, as the Patient has returned to baseline functioning.. Will discharge from caseload, though would be more than willing to re-initiate intervention if any change sin cognitive communication abilities impacting daily functioning are noted.
== END 2018-02-25 19:00 | disposition home or self-care (01) ==
LOC: SP 12:30
PROVIDERS: Family Provider Family Medicine; PCP Family Medicine; Visit Provider Family Medicine
DX: F80.2 Mixed receptive-expressive language disorder (principal); Z86.73 Personal history of transient ischemic attack (TIA), and cerebral infarction without residual deficits
CPT/HCPCS: 92507; 92523

== ENCOUNTER → 2018-03-15 20:00 | Outpatient (CLI) | payer MEDICARE, OTHER, SELFPAY ==
--- NOTE | 2018-03-15 20:00 | DT_ITS ---
This patient was seen during an EMR downtime March 08, 2018 - March 15, 2018. This patient may have a combination of paper and electronic documentation or all paper documentation. All documentation is viewable within the e-chart portion of [facility] for each patient visit.
== END ==
PROVIDERS: Family Provider Family Medicine; PCP Family Medicine; Visit Provider Nurse Practitioner Acute Care
DX: G47.33 Obstructive sleep apnea (adult) (pediatric) (principal); R06.83 Snoring; R06.00 Dyspnea, unspecified; Z86.73 Personal history of transient ischemic attack (TIA), and cerebral infarction without residual deficits
CPT/HCPCS: 95810

== ENCOUNTER → 2018-03-28 21:44 | Outpatient (CLI) | payer MEDICARE, OTHER, SELFPAY | PROVIDERS: Family Provider Family Medicine; PCP Family Medicine; Visit Provider Nurse Practitioner Acute Care | DX: G47.33 Obstructive sleep apnea (adult) (pediatric) (principal) | CPT/HCPCS: 95811 ==

== ENCOUNTER 2018-04-09 13:25 | Emergency (ER) | payer MEDICARE, OTHER, SELFPAY ==
[2018-04-09 13:26] VITALS: BP 166/85; PULSE 74; RESP 16; TEMP 36.7; O2SAT 98; BMI 29.5
--- NOTE | 2018-04-09 13:37 | CT_ITS ---
STUDY: CT CERVICAL SPINE WITHOUT CONTRAST REASON FOR EXAM: Male, 73 years old. History of fall. Laceration of the forehead. RADIATION DOSAGE (If Supplied By Facility): CTDIvol = ( 25.80 ) mGy, DLP = ( 581.43 ) mGycm TECHNIQUE: High resolution transaxial imaging was performed without contrast material. Sagittal and coronal images were reconstructed. Individualized dose optimization techniques were used for this CT. COMPARISON: None FINDINGS: Normal craniovertebral junction. There are degenerative changes of the anterior atlantoaxial articulation. Normal odontoid process. Normal cervical lordosis. Normal vertebral bodies and posterior osseous elements. C2-3: Facet joint osteoarthritis and hypertrophy on the right side. No significant narrowing is seen. C3-4: Mild degree of disc space narrowing. Central posterior spondylosis causing moderate degree of central canal stenosis. C4-5: Moderate degree of disc space narrowing. Large posterior osteophyte formation causing a marked degree of central canal stenosis. Uncovertebral arthrosis. Moderate degree of bilateral neural foraminal stenosis worse on the right side. C5-6: Moderate degree of disc space narrowing. Posterior osteophyte formation causing a marked degree of central canal stenosis. Uncovertebral arthrosis causing a marked degree of bilateral neural foraminal stenosis. C6-7: Moderate degree of disc space narrowing. Spondylosis worse posteriorly and on the left side with the central canal stenosis and bilateral neural foraminal stenosis worse on the left side. Normal visualized soft tissue structures. CT/Spine Cervical without Contras IMPRESSION: Multilevel degenerative changes, as described above. Severe spinal stenosis at the C5-C6 and C4-C5 levels. Electronically Signed: Jorge Alberto Cruz MD at 14:20 EDT Tel [phone], Service support ,
--- NOTE | 2018-04-09 13:37 | CT_ITS ---
STUDY: CT BRAIN WITHOUT CONTRAST REASON FOR EXAM: Male, 73 years old. History of fall. Laceration of the forearm. The patient is on Plavix. RADIATION DOSAGE (If Supplied By Facility): CTDIvol = ( 44.99 ) mGy, DLP = ( 779.24 ) mGycm TECHNIQUE: Transaxial CT imaging of the brain was performed without administration of intravenous contrast material. Individualized dose optimization techniques were used for this CT. COMPARISON: Comparison is made with prior study dated February 10, 2018. FINDINGS: Small scalp hematoma overlying the left frontal bone. Normal calvarium. There is mild cerebral atrophy with widening of the extra-axial spaces and ventricular dilatation. There are areas of decreased attenuation within the white matter tracts of the supratentorial brain, consistent with microvascular disease changes. Normal basal ganglia and thalami. Normal brainstem. Normal cerebellum. There is no intracranial hemorrhage. There are no findings of an acute ischemic infarction. Mucosal thickening of the ethmoid sinuses. CT/Brain/Head without Contrast IMPRESSION: Chronic involutional changes of the brain. Small scalp hematoma overlying the left frontal bone. Electronically Signed: Jorge Alberto Cruz MD at 14:16 EDT Tel [phone], Service support ,
--- NOTE | 2018-04-09 13:38 | RAD_ITS ---
STUDY: X-RAY - LEFT KNEE REASON FOR EXAM: Male, 73 years old. Pain following a fall. TECHNIQUE: 5 view(s) of the knee. COMPARISON: None. FINDINGS: Normal visualized distal femur. Normal visualized proximal tibia and fibula. Normal proximal tibiofibular articulation. Normal medial femorotibial compartment. Normal lateral femorotibial compartment. Normal patellofemoral articulation. Degenerative spurring along the anterior superior and inferior aspects of the patella. Prepatellar and infrapatellar soft tissue swelling. RAD/Knee 4 or More Views IMPRESSION: Prepatellar and infrapatellar soft tissue swelling. Electronically Signed: Jorge Alberto Cruz MD at 14:41 EDT Tel [phone], Service support ,
--- NOTE | 2018-04-09 13:45 | ED.VISSUMM ---
- ER Visit Summary Date of Service: 04/09/18 Chief Complaint: Fall History of Present Illness: The patient is a 73 M who tripped walking at a local restaurant and fell on steps. He denies loss of consciousness. He does have a headache. He has not had nausea or vomiting. He is complaining of pain to his head, left hand, and left knee. He is on Plavix. Physical Examination: Vital signs reveal blood pressure 166/85, otherwise normal. Head and neck examination reveals abrasions over the mid forehead with a small underlying hematoma. Pupils are equal and reactive. C-spine exam reveals no midline tenderness. He does have mild tenderness of left cervical paraspinals. Heart is regular rate and rhythm. Lung sounds are clear. Chest wall is nontender. Abdomen is soft nontender. Upper extremity examination reveals an abrasion at the base of the left thumb. He has good range of motion, cap refill, and sensation. Lower extremity examination reveals abrasions over the anterior left knee with mild edema. He has good range of motion with strong distal pulses. Neuro exam is unremarkable with no focal deficits. Test Results: Left knee x-rays reveal prepatellar and infrapatellar soft tissue swelling. Left hand x-rays show degenerative changes. CT the head shows chronic involutional changes. There is a small scalp hematoma noted. CT the C-spine shows multilevel degenerative changes. Emergency Department Course and Treatment: Patient was given Tylenol and tetanus update is provided. Wound to be cleansed and dressed. Patient has been able to ablate to the restroom and back without difficulty. Treatment Plan: [] Disposition: Discharge Impression: 1. Mechanical fall 2. Closed head injury 3. Abrasions This note was generated with [employer] dictation software. It may contain incorrect words, spelling, and punctuation that were not noted in review of the chart prior to signing ED Disposition - Plan for ED Patient: Chief Complaint: Fall Referrals: Adama Jon MD [Primary Care Provider] -
--- NOTE | 2018-04-09 14:05 | RAD_ITS ---
STUDY: X-RAY - LEFT HAND REASON FOR EXAM: Male, 73 years old. Pain following a recent fall. TECHNIQUE: 3 view(s) of the hand. COMPARISON: None. FINDINGS: Normal radiocarpal articulation. Normal distal radioulnar joint. There is a 1.1 cm cyst in the proximal aspect of the carpal navicular bone. Normal carpal articulations There is degenerative arthrosis of the carpometacarpal articulation of the thumb with lateral subluxation of the first metacarpus. Normal second through fifth carpometacarpal joints. Normal metacarpi. Normal metacarpophalangeal joint of the thumb. Normal interphalangeal joint of the thumb. Normal proximal and distal phalanges of the thumb. Normal metacarpophalangeal joints of the second through fifth fingers. There is diffuse articular joint space narrowing of the proximal and distal interphalangeal joints of the second through fifth fingers, but without erosive changes or periarticular soft tissue swelling. Normal phalanges of the second through fifth fingers. The soft tissue structures are unremarkable. RAD/Hand Min 3 Views IMPRESSION: Degenerative changes. Cystic change in the proximal portion of the carpal navicular bone. Electronically Signed: Jorge Alberto Cruz MD at 14:40 EDT Tel [phone], Service support ,
[2018-04-09] MEDS: Acetaminophen 500 MG Tablet 1000 MG PO (14:20)
[2018-04-09] MEDS: Diphth,Pertuss(Acell),Tet Vac 0.5 ML Vial IM (14:32)
--- NOTE | 2018-04-09 14:50 | NURSING ---
NO LW OR POA
--- NOTE | 2018-04-09 15:05 | ED.DEP ---
ED Disposition - Plan for ED Patient: Disposition: Home or Assisted Living Chief Complaint: Fall Instructions: ED Mechanical Fall, ED Head Injury Closed Referrals: Adama Jon MD [Primary Care Provider] - As Needed
[2018-04-09 15:42] VITALS: BP 148/76; PULSE 62; RESP 16
== END 2018-04-09 15:43 | disposition home or self-care (01) ==
PROVIDERS: Emergency Provider Emergency Medicine; Family Provider Family Medicine; PCP Family Medicine
DX: S09.90XA Unspecified injury of head, initial encounter (principal); S60.312A Abrasion of left thumb, initial encounter; S80.212A Abrasion, left knee, initial encounter; I25.2 Old myocardial infarction; I10 Essential (primary) hypertension; F03.90 Unspecified dementia, unspecified severity, without behavioral disturbance, psychotic disturbance, mood disturbance, and anxiety; E78.00 Pure hypercholesterolemia, unspecified; Z86.73 Personal history of transient ischemic attack (TIA), and cerebral infarction without residual deficits; Z85.46 Personal history of malignant neoplasm of prostate; Z87.891 Personal history of nicotine dependence; Z79.02 Long term (current) use of antithrombotics/antiplatelets; Z79.899 Other long term (current) drug therapy; W01.0XXA Fall on same level from slipping, tripping and stumbling without subsequent striking against object, initial encounter; Y93.01 Activity, walking, marching and hiking; Y92.511 Restaurant or cafe as the place of occurrence of the external cause; Y99.8 Other external cause status
CPT/HCPCS: 70450; 72125; 73130; 73564; 90715; 99283

== ENCOUNTER 2019-03-05 17:09 | Emergency (ER) | payer MEDICARE, OTHER, SELFPAY ==
[2019-03-05 17:11] VITALS: BP 179/91; PULSE 81; RESP 18; TEMP 37.3; O2SAT 96; BMI 33.3
--- NOTE | 2019-03-05 17:17 | CT_ITS ---
STUDY: CT CERVICAL SPINE WITHOUT CONTRAST REASON FOR EXAM: Male, 73 years old. Neck pain RADIATION DOSAGE (If Supplied By Facility): CTDIvol = ( 26.80 ) mGy, DLP = ( 550.50 ) mGycm TECHNIQUE: High resolution transaxial imaging was performed without contrast material. Sagittal and coronal images were reconstructed. Individualized dose optimization techniques were used for this CT. COMPARISON: 04/09/2018 FINDINGS: Normal craniovertebral junction. Normal anterior atlantoaxial articulation. Normal odontoid process. Normal cervical lordosis. Normal vertebral bodies and posterior osseous elements. No acute fracture or listhesis. Significant and dense calcification of the posterior longitudinal ligament posterior to the level of C4-5 causing severe central canal stenosis, stable from prior. Otherwise, moderate multilevel degenerative disc disease. Soft tissues are within normal limits. Severe emphysema in the upper lobes CT/Spine Cervical without Contras IMPRESSION: Multilevel degenerative changes, as described above. No significant change from 2018 exam. Electronically Signed: Markel Posey DO at 18:09 EDT Tel , Service support ,
--- NOTE | 2019-03-05 17:33 | ED.DCSUM_ITS ---
- ER Visit Summary Date of Service: 03/05/19 Chief Complaint: Neck pain History of Present Illness: The patient is a 73 M with history of prior stroke presents to the emergency department with neck pain. Patient states he was cutting his grass today. He states he then went to a family democrat. He states he turned his head to the right and felt something click in his neck. Since then, he had some pain on the outer aspect of his neck. He denies any change in vision. He denies any weakness. He has had no tingling or numbness in his arms. He denies any headache. He has not taken anything for the pain. He states only when he moves to the right that he gets the pain. Physical Examination: Vital signs reviewed General: Well-nourished, well-developed Head: Normocephalic, atraumatic Eyes: Pupils equal and reactive, extraocular muscles intact Neck, supple, no lymphadenopathy, tenderness over the right sternocleidomastoid Heart: Regular rate and rhythm Respiratory: No distress, clear bilaterally Abdomen: Soft, nontender, nondistended, no peritoneal signs Back: Nontender Extremities: Nontender, no edema, no cords, 2+ upper extremity reflexes, normal pulses, no weakness Skin: Normal color no rash Neuro: Alert and oriented, no focal or lateralizing deficits Test Results: [] Emergency Department Course and Treatment: Patient pain is entirely muscular. However, given his advanced age and history of injury I did obtain a CT of his neck. This is unremarkable. There was degenerative change, but no acute fracture dislocation. He declined any analgesics. He was counseled on using Tylenol and rest. He has no weakness. He has normal reflexes. He has no stroke syndrome. He will be discharged home. Treatment Plan: [] Disposition: Discharge Impression: 1. Cervical strain This note was generated with [employer] dictation software. It may contain incorrect words, spelling, and punctuation that were not noted in review of the chart p rior to signing ED Disposition - Plan for ED Patient: Disposition: Home or Assisted Living Instructions: ED Sprain Strain Neck Referrals: Adama Jon MD [Primary Care Provider] -
[2019-03-05 18:27] VITALS: BP 164/83; PULSE 75; RESP 16; O2SAT 96
== END 2019-03-05 18:31 | disposition home or self-care (01) ==
LOC: ED 18:02
PROVIDERS: Emergency Provider Emergency Medicine; Family Provider Family Medicine; PCP Family Medicine
DX: S16.1XXA Strain of muscle, fascia and tendon at neck level, initial encounter (principal); I10 Essential (primary) hypertension; Z86.73 Personal history of transient ischemic attack (TIA), and cerebral infarction without residual deficits; X50.0XXA Overexertion from strenuous movement or load, initial encounter; Y93.89 Activity, other specified; Y92.89 Other specified places as the place of occurrence of the external cause; Y99.8 Other external cause status
CPT/HCPCS: 72125; 99282

== ENCOUNTER 2020-03-03 12:35 | Emergency (ER) | payer MEDICARE, OTHER, SELFPAY ==
[2020-03-03 12:35] VITALS: BP 156/88; PULSE 66; RESP 16; TEMP 36.6; O2SAT 96; BMI 32.0
--- NOTE | 2020-03-03 13:00 | CT_ITS ---
STUDY: CT BRAIN WITHOUT CONTRAST REASON FOR EXAM: Male, 74 years old. Trauma, fell off ladder today, abrasions to forehead, no LOC. Hx hypertension, prostate cancer, CVA. RADIATION DOSAGE (If Supplied By Facility): CTDIvol = ( 44.99 ) mGy, DLP = ( 796.11 ) mGycm TECHNIQUE: Transaxial CT imaging of the brain was performed without administration of intravenous contrast material. Individualized dose optimization techniques were used for this CT. COMPARISON: April 09, 2018 FINDINGS: Normal soft tissue structures. Normal calvarium. Normal size ventricles and extra-axial spaces for the patient''s age. Mild white matter microangiopathic ischemic changes of the cerebral hemispheres. Normal basal ganglia and thalami. Normal brainstem. Normal cerebellum. There is no intracranial hemorrhage. There are no findings of an acute ischemic infarction. Normal visualized paranasal sinuses. CT/Brain/Head without Contrast IMPRESSION: Stable age-related changes of the brain. Electronically Signed: Ace Strickland DO at 13:54 EDT Tel [phone], Service support ,
--- NOTE | 2020-03-03 13:01 | ED.VIS.FALL ---
History of Present Illness Chief Complaint: Fall Informant: Patient, Significant Other Occurred: Today - 1-1.5 hrs prior to eval Mechanism/Context: - - fell off ladder when it collapsed Fall from Height (ft): 2-3 Fall down steps #: 2-3 Usually ambulates: Without assistance Location: head, frontal Quality of Pain: - - sore Current Severity: Mild Maximum Severity: Moderate Worsened by: nothing Relieved by: nothing Associated Symptoms: - - states that he complained of a little bit of brief dizziness on the way into the ER while walking. Patient cannot recall. He has some dementia.. Negative for: Parasthesias, Weakness, Loss of function, Inability to ambulate, Loss of consciousness, Amnesia Narrative: Patient had put a ladder up against the side of the house and was going to climb and clean out the gutters. states he was on the second or third step when he did not have the ladder locked in place and it collapsed accidentally, causing him to fall backwards onto his back, then the ladder came down on top of him injuring him in the forehead and sustaining lacerations as a result. He denies having any back pain. There is no loss of consciousness. Denies any nausea or vomiting. No neck pain, extremity pain except for mild discomfort in his right elbow, and he denies any other injuries. No recent illnesses. Ambulatory at the scene and now. He is on a blood thinner that sounds like aspirin and clopidogrel. Tetanus Immunization: Unknown - Past Medical History (1) Stroke Status: Chronic (2) TIA (transient ischemic attack) Status: Chronic (3) Dementia Status: Chronic (4) GERD (gastroesophageal reflux disease) Status: Chronic (5) HLD (hyperlipidemia) Status: Chronic (6) HTN (hypertension) Status: Chronic (7) History of OR (myocardial infarction) Status: Chronic (8) Prostate cancer Status: Chronic Past Medical History - Allergies and Home Meds Allergies/Adverse Reactions: Allergies Odhfxre-Vck-Aih Reductase Inhibitor Allergy (Verified 03/03/20 12:37) Other Primary Care Physician: Adama Jon MD [Primary Care Provider] - Surgical History: - - PCI ?1, hernia repair listed in history. Lives: Spouse/ Significant Other Smoking Status: Former smoker - Family History Maternal Family History: Reports: Dementia, Heart Disease, Hypertension, Stroke, - - alzhiemer's dementia in mother Paternal Family History: Reports: Heart Disease, Hypertension Review of Systems ROS: Unable to Obtain - Limited due to dementia, positives and negatives as below ENT: Denies: Bilateral ear pain, Sore throat Cardiovascular: Denies: Chest pain, Heart racing Respiratory: Denies: Dyspnea, Cough Gastrointestinal: Denies: Abdominal pain, Nausea, Vomiting Musculoskeletal: Denies: Neck pain, Back pain, Extremity Pain Skin: Reports: Wounds - Facial. Denies: Rash, Abscess Neurological: Reports: Headache. Denies: Weakness, Numbness Physical Exam Vital Signs/Narrative: Vital Signs Temp Pulse Resp BP Pulse Ox 03/03/20 12:35 98 F 66 16 156/88 H 96 Inital Vital Signs reviewed: Yes General: Well nourished, Well developed, - - Keenly alert. A little disoriented, at baseline mental status per . GCS 14. Head: Normocephalic, Atraumatic - Just trauma to the face, see below. Eyes: Perrl, EOMI - Without pain or palsy ENT: TM's clear, No hemotympanum or drainage, - - 2 vertical superficial partial-thickness clean appearing lacerations to the forehead, one in the middle and 1 toward the left, near his eyebrow. No bony tenderness or hematoma. No crepitance or depression. No midface tenderness or evidence of trauma there.. Negative for: Nasal trauma Neck: Nontender, Full ROM. Negative for: Spinal Tenderness Cardiovascular: Regular rate, Regular rhythm, No murmurs Respiratory: No distress, CTA bilaterally, Chest nontender Abdomen: Soft, Nontender, Nondistended, Normal bowel sounds Back: Nontender, - - No signs of trauma to the skin throughout his back. Pelvis stable to AP compression and nontender.. Negative for: Spinal Tenderness, Paraspinal Tenderness - Including rib cage posteriorly Extremeties: Minor contusion to the olecranon process of the right elbow, no tenderness there, full range of motion including pronation and supination. No swelling. Skin intact. No signs of injury or trauma to the other areas of all the extremities. Skin: Normal color, No rash, Trauma - 2 facial clean, partial-thickness lacerations; middle one is 3 cm, left eyebrow is 2 cm Neurological: Alert, Cranial nerves II-XII grossly intact, Normal Strength, Normal Sensation, Normal Gait, Disoriented - At baseline per . Disoriented to time only. Psychological: Normal affect, Normal Mood Diagnostic/Tx/Re-eval Clinical Impression(s) from Imaging Studies Brain CT 03/03/20 13:00 IMPRESSION: Stable age-related changes of the brain. Electronically Signed: Ace Strickland at 13:54 EDT Tel [phone], Service support , - Medical Decision Making CT head is negative. Patient agrees nothing else really needs imaged. He is not tender anywhere else including his right elbow, and he has no signs or symptoms of any other injury. We discussed reasons to return. 2 lacerations on his face were Dermabond it, I think they will do well. They were pretreated with topical lidocaine/epinephrine to assist with hemostasis which worked well given he is on Plavix. I also discussed with him my recommendation to avoid ladders given his mild dementia and being that he is on clopidogrel. Procedures - Lacerations Middle forehead Length: 3 cm Depth: Skin Shape: Linear Prep: Sterile Conditions, Chlorhexadine Laceration Repair: Dermabond, Lidocaine with epi - topically, LET Left eyebrow/forehead Length: 2 cm Depth: Skin Shape: Linear Prep: Sterile Conditions, Chlorhexadine Laceration Repair: Lidocaine with epi - topically, LET ED Disposition - Plan for ED Patient: Disposition: Home or Assisted Living Diagnosis: Closed head injury without loss of consciousness, Fall from ladder, Facial laceration Instructions: ED Head Injury Adult, ED Laceration Facial Skin Glue Referrals: Adama Jon MD [Primary Care Provider] - As Needed
[2020-03-03] MEDS: Lidocaine/Epi/Tetracaine 50 ML 1 APPLIC TOPICAL (13:08)
== END 2020-03-03 14:10 | disposition home or self-care (01) ==
PROVIDERS: Emergency Provider Emergency Medicine; PCP Family Medicine
DX: S01.81XA Laceration without foreign body of other part of head, initial encounter (principal); S01.112A Laceration without foreign body of left eyelid and periocular area, initial encounter; F03.90 Unspecified dementia, unspecified severity, without behavioral disturbance, psychotic disturbance, mood disturbance, and anxiety; Z86.73 Personal history of transient ischemic attack (TIA), and cerebral infarction without residual deficits; K21.9 Gastro-esophageal reflux disease without esophagitis; E78.5 Hyperlipidemia, unspecified; I10 Essential (primary) hypertension; I25.2 Old myocardial infarction; Z85.46 Personal history of malignant neoplasm of prostate; Z79.02 Long term (current) use of antithrombotics/antiplatelets; Z79.82 Long term (current) use of aspirin; Z79.899 Other long term (current) drug therapy; Z87.891 Personal history of nicotine dependence; W11.XXXA Fall on and from ladder, initial encounter; Y93.89 Activity, other specified; Y92.008 Other place in unspecified non-institutional (private) residence as the place of occurrence of the external cause; Y99.8 Other external cause status
CPT/HCPCS: 12013; 70450; 99282

== ENCOUNTER 2020-08-17 15:03 | Emergency (ER) | payer MEDICARE, OTHER, SELFPAY ==
[2020-08-17 15:04] VITALS: BP 163/106; PULSE 70; RESP 18; TEMP 36.7; O2SAT 96; BMI 32.8
--- NOTE | 2020-08-17 15:20 | CT_ITS ---
STUDY: CT CERVICAL SPINE WITHOUT CONTRAST REASON FOR EXAM: Male, 75 years old. [place]. UNRESPONSIVE. DEMENTIA RADIATION DOSAGE (If Supplied By Facility): CTDIvol = ( 25.47 ) mGy, DLP = ( 567.80 ) mGycm TECHNIQUE: High resolution transaxial imaging was performed without contrast material. Sagittal and coronal images were reconstructed. Individualized dose optimization techniques were used for this CT. COMPARISON: None FINDINGS: Normal craniovertebral junction. There are degenerative changes of the anterior atlantoaxial articulation. Normal odontoid process. Normal cervical lordosis. Normal vertebral bodies and posterior osseous elements. C2-3: Moderate right facet hypertrophy with ankylosis of the facet joint. No spinal stenosis or neural foraminal stenosis. C3-4: Mild left facet hypertrophy produces mild left neural foraminal stenosis. Ossification of the posterior longitudinal ligament extends from the superior endplate of C4 to the inferior endplate of C5 and produces severe spinal stenosis. C4-5: Ossification of posterior longitudinal ligament produces severe spinal stenosis. No neural foraminal stenosis. C5-6: Ossification of posterior longitudinal ligament produces moderate spinal stenosis. No neural foraminal stenosis C6-7: Moderate broad disc osteophyte complex produces moderate spinal stenosis and mild bilateral neural foraminal stenosis. C7-T1: Normal endplates. Normal disc height and morphology. Normal central canal and intervertebral neuroforamina. Normal visualized soft tissue structures. CT/Spine Cervical without Contras IMPRESSION: No acute fracture or subluxation. Electronically Signed: Gene Montgomery MD at 16:11 EST Tel , Service support ,
--- NOTE | 2020-08-17 15:20 | RAD_ITS ---
STUDY: X-RAY - RIGHT SHOULDER REASON FOR EXAM: Male, 75 years old. pt fell today. Rt shoulder pain. TECHNIQUE: 2 view(s) of the shoulder. COMPARISON: None. FINDINGS: Narrowed glenohumeral articulation. Narrowed acromioclavicular joint. Normal acromion. Normal humeral head and visualized proximal humerus. The soft tissue structures are unremarkable. Normal visualized pulmonary apex. RAD/Shoulder min 2 Views IMPRESSION: Degenerative change. No acute fracture or dislocation Electronically Signed: Adama Soto MD at 17:01 EST , Service support ,
--- NOTE | 2020-08-17 15:20 | CT_ITS ---
STUDY: CT BRAIN WITHOUT CONTRAST REASON FOR EXAM: Male, 75 years old. [place], UNRESPONSIVE. DEMENTIA RADIATION DOSAGE (If Supplied By Facility): CTDIvol = ( 44.99 ) mGy, DLP = ( 779.24 ) mGycm TECHNIQUE: Transaxial CT imaging of the brain was performed without administration of intravenous contrast material. Individualized dose optimization techniques were used for this CT. COMPARISON: Comparison is made with prior study dated 03/03/2020. FINDINGS: Skull hematoma overlying the posterior occipital bone. Normal calvarium. There is mild cerebral atrophy with widening of the extra-axial spaces and ventricular dilatation. Normal white matter tracts of the cerebral hemispheres. Normal basal ganglia and thalami. Normal brainstem. Normal cerebellum. There is no intracranial hemorrhage. There are no findings of an acute ischemic infarction. Normal visualized paranasal sinuses. CT/Brain/Head without Contrast IMPRESSION: Chronic involutional changes of the brain. Scalp hematoma overlying the occipital bone. Electronically Signed: Jorge Alberto Cruz, at 15:45 EST , Service support ,
--- NOTE | 2020-08-17 15:26 | ED.DCSUM_ITS ---
- ER Visit Summary Date of Service: 08/17/20 Chief Complaint: Fall History of Present Illness: The patient is a 75 M who presents after a fall that occurred today. Patient was standing on a hill blowing leaves and then was found to the bottom of the hill. Patient has a history of dementia. Patient is unsure if he had any loss of consciousness. Patient states he has pain in the back of his head. Patient also complains of pain in his neck and right shoulder. Patient describes the pain as aching. Patient denies any paresthesias or weakness. Patient does not think he was able to ambulate after the fall. Physical Examination: Vital signs are stable. Patient is afebrile. Patient is in no acute distress. Oral mucosa is pink and moist. Neck is supple. Trachea is midline. There is no JVD. Heart was regular rate and rhythm. Lungs are clear and equal bilaterally. Abdomen is soft. Bowel sounds are normal. There is no tenderness. Extremities are intact. There is tenderness over the right shoulder. There is no obvious deformity noted. Range of motion was limited in all motions of the right shoulder secondary to pain. There is some mild tenderness and a hematoma over the occipital scalp area. There is no bony crepitance or step-off. There are no lacerations noted. There is also mild tenderness over the cervical spine and paraspinal muscles. Cervical collar is in place. Cranial nerves II through XII are intact. Strength is 5/5 bilateral in the upper and lower extremities. There are no sensory deficits noted. Test Results: CT scan of the brain was obtained. There is no acute bleed or infarct. CT scan of the cervical spine was obtained. There is no acute fracture or subluxation. These were interpreted by the radiologist and reviewed by myself. 2 views of the right humerus were obtained. There is no acute fracture or dislocation noted. 2 views of the right shoulder were obtained. There is no acute fracture or dislocation. There is no clavicle fracture or AC separation. I read and interpreted the plain films. Radiologist also read the plain films and agrees with my interpretation. Emergency Department Course and Treatment: Patient was instructed to use ice to the area. Patient was instructed to take Tylenol as needed for pain. Patient was instructed to follow-up with his primary care physician in 5 to 7 days. Patient was given head injury instructions. Patient understood and was agreeable with the plan. All questions were answered. Disposition: Discharge home Impression: 1. Closed head injury 2. Right shoulder contusion 3. Acute cervical strain This note was generated with [employer] dictation software. It may contain incorrect words, spelling, and punctuation that were not noted in review of the chart prior to signing ED Disposition - Plan for ED Patient: Disposition: Home or Assisted Living Diagnosis: Closed head injury, Acute cervical myofascial strain, Contusion of right shoulder, initial encounter Instructions: ED Contusion Shoulder, ED Sprain Strain Neck, ED Head Injury Adult Referrals: Adama Jon MD [Primary Care Provider] - 5-7 Days
--- NOTE | 2020-08-17 15:37 | RAD_ITS ---
STUDY: X-RAY - RIGHT HUMERUS REASON FOR EXAM: Male, 75 years old. pt fell today. rt mid humerus pain TECHNIQUE: 2 view(s) of the humerus. COMPARISON: None. FINDINGS: Nonspecific cortical thickening of the mid humeral shaft possibly due to old trauma.. There is no acute fracture or osseous destructive process. There is no demonstrated soft tissue abnormality. RAD/Humerus min 2 Views IMPRESSION: No acute fracture or other significant bony pathology Electronically Signed: Adama Soto MD at 17:01 EST , Service support ,
[2020-08-17 16:42] VITALS: BP 165/79; PULSE 69; RESP 15; O2SAT 96
== END 2020-08-17 17:24 | disposition home or self-care (01) ==
PROVIDERS: Emergency Provider Emergency Medicine; PCP Family Medicine
DX: S16.1XXA Strain of muscle, fascia and tendon at neck level, initial encounter (principal); S40.011A Contusion of right shoulder, initial encounter; S00.03XA Contusion of scalp, initial encounter; F03.90 Unspecified dementia, unspecified severity, without behavioral disturbance, psychotic disturbance, mood disturbance, and anxiety; W18.30XA Fall on same level, unspecified, initial encounter; Y93.H1 Activity, digging, shoveling and raking; Y92.007 Garden or yard of unspecified non-institutional (private) residence as the place of occurrence of the external cause; Y99.8 Other external cause status
CPT/HCPCS: 70450; 72125; 73030; 73060; 99285; A4216

== ENCOUNTER → 2020-08-23 10:43 | Outpatient (CLI) | payer MEDICARE, OTHER, SELFPAY ==
[2020-08-17 15:04] VITALS: BMI 32.8
[2020-08-23 12:17] LABS: PSA,Total- Diagnostic 0.32 ng/mL (0.0-4.0)
== END ==
PROVIDERS: PCP Family Medicine; Referring Provider Radiology Radiation Oncology; Visit Provider Radiology Radiation Oncology
DX: Z85.46 Personal history of malignant neoplasm of prostate (principal)
CPT/HCPCS: 36415; 84153

== ENCOUNTER → 2020-10-03 06:38 | Outpatient (CLI) | payer MEDICARE, OTHER, SELFPAY ==
[2020-09-12 13:39] VITALS: BMI 32.1
--- NOTE | 2020-10-03 06:39 | ECHOD_ITS ---
Reason For Study: CAD Procedure This was a 2D Doppler, Color Flow transthoracic echocardiogram. Exam performed in department. Left Ventricle Normal LV size. Left ventricular systolic function is normal. The estimated ejection fraction is 65 %. Stage 1 diastolic dysfunction. No regional wall motion abnormalities noted. Right Ventricle Normal RV size. Normal systolic function. Atria Normal left atrium. Normal right atrium. Mitral Valve Normal mitral valve. Tricuspid Valve Normal tricuspid valve. Aortic Valve Normal aortic valve. Pulmonic Valve The pulmonic valve is not well visualized. Great Vessels Normal aortic root. The pulmonary artery is normal size. Normal inferior vena cava. Pericardium/Pleural No pericardial effusion. MMode/2D Measurements & Calculations LVIDd: 3.8 cm IVSd: 1.1 cm Ao root diam: 3.0 cm LVIDs: 2.2 cm LVPWd: 1.1 cm RVDd: 3.4 cm FS: 41.6 % LAV(MOD-bp): 43.1 ml LA A4 area: 17.7 cm2 LA dimension(2D): 3.7 cm LAV(MOD-bp) Indexed: 20.6 ml/m2 LAV(MOD-sp2): 32.6 ml LAV(MOD-sp4): 55.9 ml RA A4 area: 13.1 cm2 Doppler Measurements & Calculations MV E max emmanuel: 54.0 cm/sec Lat Peak E' Emmanuel: 6.2 cm/sec Med Peak E' Emmanuel: 6.1 cm/sec MV A max emmanuel: 92.9 cm/sec E/E' lat: 8.7 E/E' med: 8.8 MV E/A: 0.58 Ao V2 max: 125.4 cm/sec LV V1 max: 101.5 cm/sec PA V2 max: 95.2 cm/sec Ao max P.3 mmHg LV V1 max P.1 mmHg Interpretation Summary Normal LV size. Left ventricular systolic function is normal. The estimated ejection fraction is 65 %. Stage 1 diastolic dysfunction. Compared to previous study, the left ventricular systolic function is the same.. Ordering Physician: Cayden Morton Referring Physician: Adama Jon Performed By: Ana Montano RDCS
--- NOTE | 2020-10-03 08:52 | STRESSREP ---
Stress Test Report Exercise myocardial perfusion stress test. 75-year-old man with a history of coronary artery disease with angioplasty of the left anterior descending artery. Stress protocol: Resting KG demonstrates normal sinus rhythm with a rate of 74 bpm normal intervals are noted resting blood pressure is 150/88 mmHg. The patient exercised according to regular Bill protocol for a total duration of 6 minutes completing stage II of the Bill protocol. The maximum heart rate attained was 126 bpm which was 88% of maximum predicted heart rate with a workload of 7.1 metabolic equivalents. The patient maintained sinus rhythm throughout the recording. The test was terminated due to fatigue. At rest there were no ST or T T wave changes noted to suggest ischemia at peak exercise upsloping ST changes were noted with no meet the criteria for ischemia. The peak blood pressure was noted to be 190/78 mmHg. Myocardial perfusion protocol. 12.0 mCi of technetium 99m sestamibi was injected at rest. The patient exercised according to regular Bill protocol and at peak exercise 34.4 mCi of technetium 99m sestamibi was injected stress images were obtained stress and rest images were reconstructed and compared in the short axis vertical and horizontal long axis. Gated images were also obtained Perfusion SPECT analysis: Review of the stress images demonstrate normal uptake of tracer noted in all areas of myocardium except for the basal inferior wall on the stress images. The resting images demonstrate mild improvement in this area suggesting a mild amount of basal to mid inferior ischemia. The anterior wall appears to perfuse well. Gated SPECT analysis: Gated ejection fraction 68%. Conclusion: Mildly abnormal exercise stress test at a moderate workload with mild inferior ischemia. Preserved ejection fraction.
== END ==
PROVIDERS: PCP Family Medicine; Referring Provider Internal Medicine Cardiovascular Disease; Visit Provider Internal Medicine Cardiovascular Disease
DX: I25.10 Atherosclerotic heart disease of native coronary artery without angina pectoris (principal); E78.5 Hyperlipidemia, unspecified; I10 Essential (primary) hypertension; I63.9 Cerebral infarction, unspecified; C61 Malignant neoplasm of prostate; I25.2 Old myocardial infarction; R94.39 Abnormal result of other cardiovascular function study; Z95.5 Presence of coronary angioplasty implant and graft
CPT/HCPCS: 78452; 93017; 93306; A9500; A4216

== ENCOUNTER 2020-10-15 06:41 | Day surgery (SDC) | payer MEDICARE, OTHER, SELFPAY ==
[2020-09-12 13:39] VITALS: BMI 32.1
--- NOTE | 2020-10-08 11:39 | RAD_ITS ---
STUDY: X-RAY CHEST REASON FOR EXAM: Male, 75 years old. PRE HEART CATH TECHNIQUE: PA and lateral views of the chest. COMPARISON: 10/04/2013 FINDINGS: The lungs are clear and expanded. 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 There is moderate cardiac enlargement. Normal mediastinum and timothy. Normal visualized pulmonary arteries. Normal visualized aortic arch and descending thoracic aorta. Normal visualized thoracic spine. Normal visualized ribs, clavicles, and shoulders. There is no demonstrated abnormality of the visualized soft tissue structures of the upper abdomen. RAD/Chest PA and Lateral IMPRESSION: No active disease. Electronically Signed: Gene Montgomery MD at 8:17 EST Tel , Service support ,
[2020-10-08 12:48] LABS: Hematocrit 41.8 % (40-54); Hemoglobin 13.8 g/dL (13.0-16.5); Mean Corpuscular Hgb 29.1 pg (27.0-32.0); Mean Platelet Vol. 10.4 fl (6.2-12.0); Platelet Count 233 K/mm3 (150-450); RBC Distribution Width CV 13.2 % (11.6-14.6); RBC Distribution Width SD 42.4 fl (35.1-43.9); Red Blood Count 4.75 M/mm3 (4.6-6.2); White Blood Count 7.6 K/mm3 (4.4-11.0)
[2020-10-08 13:15] LABS: Anion Gap 6 (5-15); BUN 11 mg/dL (7-18); BUN/Creat Ratio 10.5 RATIO (10-20); Calcium,Total 9.2 mg/dL (8.5-10.1); Chloride 108 mmol/L (98-107); Creatinine, Serum 1.05 mg/dL (0.70-1.30); EST Glomerular Filtration Rate 73 mL/min (>60); Est Glom Filt Rate - Afr Amer 88 mL/min (>60); Glucose 91 mg/dL (74-106); Potassium 3.8 mmol/L (3.5-5.1); Sodium Level 142 mmol/L (136-145)
[2020-10-12 10:01] VITALS: BMI 32.1
--- NOTE | 2020-10-15 05:00 | HP_ITS ---
HPI HPI History of Present Illness Details: Pleasant 75-year-old man with a history of coronary artery disease status post cardiac catheterization in 2013. At that time he was noted to have inferior ischemia his cardiac catheterization demonstrated angiographically normal left main coronary artery, left anterior descending artery with mild proximal disease and eccentric 60% stenotic lesion, left circumflex artery with no significant disease and a dominant right coronary artery with a mid segment with 95% stenosis. His ejection fraction was preserved he underwent angioplasty with a drug-eluting stent placed to the mid left anterior descending artery. He has apparently done well since then denying any chest pain or shortness breath or paroxysmal nocturnal dyspnea pedal edema is been compliant with his medications. His electrocardiogram here demonstrates normal sinus rhythm with a rate of 59 bpm and no acute changes. Intake Vital Signs 09/12/20 Height 5 ft 8 in 09/12/20 Weight: 211 lb 09/12/20 BMI 32.1 09/12/20 BP 141/77 H 09/12/20 Respiration 16 09/12/20 Pulse 62 09/12/20 Pulse Oximetry (%) 97 Intake Visit Reasons: EST CARE, EULALIO BRUSH PT (SELF REF) Allergies atorvastatin [From Lipitor] Allergy (Verified 09/12/20 13:39) PT UNSURE OF REACTION azithromycin [From Zithromax] Allergy (Verified 09/12/20 13:39) Itching sildenafil [From Viagra] Allergy (Verified 09/12/20 13:39) PT UNSURE OF REACTION Zaawyyy-Ybb-Xyu Reductase Inhibitor Allergy (Verified 09/12/20 13:39) Other ezetimibe [From Zetia] Adverse Reaction (Verified 09/12/20 13:39) PT UNSURE OF REACTION beta blockers Allergy (Uncoded 09/12/20 13:39) PT UNSURE OF REACTION Medications Multivitamins,Therapeutic [Multivitamin] 1 tab PO DAILY 10/04/13 [History Confirmed 09/12/20] Metoprolol Succinate [Toprol Xl] 75 mg PO DAILY 02/10/18 [History Confirmed 09/12/20] Pravastatin Sodium 80 mg PO QHS 02/10/18 [History Confirmed 09/12/20] Losartan Potassium [Cozaar] 100 mg PO DAILY #0 02/12/18 [Rx Confirmed 09/12/20] Aspirin [Aspirin, Baby] 81 mg PO DAILY@0800 03/03/20 [History Confirmed 09/12/20] Solifenacin Succinate [Vesicare] 5 mg PO DAILY 08/17/20 [History Confirmed 09/12/20] Ubidecarenone [Co Q-10] 200 mg PO DAILY 08/17/20 [History Confirmed 09/12/20] amlodipine 10 mg tablet 10 mg PO DAILY 09/11/20 [History Confirmed 09/12/20] cinnamon bark 500 mg capsule 500 mg PO DAILY 09/11/20 [History Confirmed 09/12/20] donepezil 10 mg tablet 10 mg PO QHS tab 09/11/20 [History Confirmed 09/12/20] nitroglycerin 0.4 mg sublingual tablet 0.4 mg SUBLINGUAL Q5-15M PRN 09/11/20 [History Confirmed 09/12/20] pantoprazole 40 mg tablet,delayed release 40 mg PO DAILY tab 09/11/20 [History Confirmed 09/12/20] clopidogrel 75 mg tablet 75 mg PO DAILY 09/12/20 [History Confirmed 09/12/20] Ejection fraction %: 65 to 70 [facility] Medical History Atherosclerotic heart disease of [place] coronary artery without angina pectoris (Chronic) Old inferior wall myocardial infarction (Chronic) Ischemic cerebrovascular accident (CVA) (Chronic 02/10/18) Essential (primary) hypertension (Chronic) HLD (hyperlipidemia) (Chronic) Prostate cancer (Chronic) Actinic keratoses (Chronic) Anemia (Chronic) Dementia (Chronic) GERD (gastroesophageal reflux disease) (Chronic) OAB (overactive bladder) (Chronic) Obesity (Chronic) Obstructive sleep apnea (Chronic) Rosacea (Chronic) Abdominal aortic aneurysm (AAA) (Ruled-out) Surgical History History of coronary artery stent placement (Resolved 10/07/13) History of herniorrhaphy (Resolved) History of left heart catheterization (Resolved 10/07/13) Family History Sister CAD (coronary artery disease) Mother CAD (coronary artery disease) Father Colon cancer Brother CAD (coronary artery disease) Social History (Updated 09/12/20 @ 15:[address] Cayden Morton MD) Smoking Status: Former smoker quit date: 10/05/78 pack-years: 62 ROS Const Const: Negative for fatigue, weakness, headache(s), frequent falls, difficulty sleeping or excessive sweating Eyes Eyes: Negative for loss of peripheral vision, transient loss of vision, blurry vision, double vision or tunnel vision ENT ENT: Negative for headache(s), dizziness, Nosebleed/epistaxis or balance problems Cardio Chest Pain: No Palpitations: No Edema: None Muscle aches with walking: None Resp Respiratory: Negative for SOB with activity, SOB at rest, SOB orthopnea\SOB lying down, Cough or paroxysmal nocturnal dyspnea GI GI: Negative nausea, vomiting, heartburn or black,tarry stools : Negative for hematuria Musc Musc: Negative for muscle aches/ myalgia, muscle weakness, joint pain or balance problems Skin Skin: Negative non-healing lesions, rash or unusual bruising Neuro Neuro: Negative for dizziness, lightheadedness, near syncope, syncope, orthostatic symptoms, frequent falls, headache(s), weakness, blurry vision, double vision or lack of coordination [place] Hematologic/Lymphatic: Negative for easy bleeding or easy bruising Endo Endo: Negative for fatigue, excessive sweating or increased thirst/drinking Psych Psych: Negative for anxiety or depression Allergy Allergy/Immunology: Negative for hives, Negative for rash Cardiology Exam Const Appearance: cooperative, healthy appearing, no acute distress, well developed and well groomed Nutritional Appearance: average body habitus and well nourished Orientation: alert, awake and oriented x3 Head Head: normal to inspection, normocephalic and atraumatic Ears: hearing grossly normal bilaterally and external ears normal Nose: external nose normal, nares normal, nasal mucous membranes and turbinates normal, septum normal, no nasal discharge Face and Sinus: face symmetric Mouth: oral mucosae normal, tongue normal, oropharynx normal and moist mucous membranes Teeth and gingiva: dentition normal Throat: posterior oropharynx normal, tonsils normal and uvula midline Eyes General: appearance normal, both eyes and all related structures Eyelids: eyelids normal Conjunctivae: conjunctivae normal Pupils: PERRL, normal by confrontation and accommodation normal EOM: EOM intact bilaterally Neck Neck: normal visual inspection, trachea midline and no JVD JVD: +5 Carotids: normal carotid upstroke and bounding pulses Chest Chest inspection: normal inspection of the chest, symmetric chest movement and normal respiratory effort Auscultation: Bilateral: Clear to Auscultation Cardio Palpation: normal PMI Rate: regular rate Rhythm: regular rhythm Heart sounds: S1 normal, S2 normal and normal, physiologic split S2; negative rub, gallop or murmur GI GI: normal to inspection, soft, no hepatosplenomegaly and bowel sounds present Neuro General: alert, awake, oriented x3, gait normal, moves all extremities and no focal sensory deficit Skin Skin: no rashes or lesions noted Extremities Pulses: Normal: Right Femoral Pulse, Left Femoral Pulse, Right Dorsalis Pedis Pulse, Left Dorsalis Pedis Pulse, Right Posterior Tibial Pulse, Left Posterior Tibial Pulse, Right Radial Pulse, Left Radial Pulse Lower Extremity Edema: None: Bilateral Musculoskel Musculoskeletal: No joint tenderness Psych Psychological: normal affect Assessment & Plan 1. History of coronary artery stent placement Z95.5 [id number]-Distal RCA w/ 2.25 x 28 mm Promus Stent and POBA-Ostial Stenosis in the Prox 1st Acute Marginal Artery 10/07/2013 Plan He is status post previous angioplasty and stenting in 2013 of the mid to distal right coronary artery. I would recommend at this time that he undergo an exercise myocardial perfusion stress test to assess for any ischemia. Depending on the findings further recommendations will be made. In the meantime he will remain on the current medications. Orders Orders: 12 Lead EKG performed by [facility] Today 2. Essential (primary) hypertension I10 Plan His blood pressures under good control at this particular time and I would not recommend that we make any changes. He will remain on the ARB as well as the metoprolol. Of note is the fact that he does not have any discernible abdominal aortic aneurysm by abdominal ultrasound. Orders Orders: 12 Lead EKG performed by [facility] Today 3. Hyperlipidemia, unspecified hyperlipidemia type E78.5 Plan Does have a history of hyperlipidemia. His lipid profile is fairly favorable with a total cholesterol 157, HDL of 33 and LDL of 86. No other changes will be made. 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
--- NOTE | 2020-10-15 09:20 | CL.D_ITS ---
Patient Name: LORY DIAZ Study Date: 10/15/2020 Performing: Cayden Morton MD Ht: 68.11 inches 173 cm : 1945 Wt: 211.64 lbs 96 kg Age: 75 Gender: male BSA: 2.1 PROCEDURE(S) PERFORMED NE95-INK/COR/LV CLINICAL PROFILE AND INDICATIONS Indications: Suspected CAD Heart Failure: None Stress/Imaging Date: 10/03/20tress Test with SPECT MPI: Positive Intermediate Risk CONCLUSIONS Totally occluded mid to distal right coronary artery with [id number]-gq-peefo collaterals and moderate dise ase noted in the left anterior descending artery and ostial circumflex artery. Preserved ejection fr action. RECOMMENDATIONS Medical therapy DESCRIPTION OF PROCEDURE The patient arrived to the procedure lab. The risks and benefits of the procedure as well as a full d escription of our services here and current unavailability of surgical backup were fully explained to the patient and/or their significant other prior to the catheterization. The Timeout was completed, verifying the correct patient and procedure. The patient's procedural site was prepped and draped in the usual fashion. Local anesthetic was given subcutaneously to right radial region with Lidocaine 2% . Using a modified Seldinger technique, arterial access was obtained via the right radial artery, a 6 Fr sheath was inserted. Right Coronary Artery selective angiography was then performed in multiple v iews using a 5 Fr. 4.0 [place] catheter. Left Coronary Artery selective angiography was performed in mu ltiple views using a 5 Fr. JL3.5 catheter. Left Ventriculography was performed in REYES projection usin g a 5 Fr. Pigtail catheter. LV to AO pullback pressures were then recorded.The arterial sheath was pulled and a TR Band was applied for hemostasis CORONARY ANGIOGRAPHY DOMINANCE: Right Dominant LEFT HEART ASSESSMENT Left Ventricular Ejection Fraction: by LV Gram 60 % Normal LV wall motion Normal Left Ventricular systolic function LEFT MAIN: Mild calcification LEFT ANTERIOR DESCENDING ARTERY: MID LAD: Moderate luminal irregularities up to 50% CIRCUMFLEX ARTERY: Mild luminal irregularities less than 30% OSTIAL CIRC: 60 % Stenosis RAMUS: Mild luminal irregularities less than 30% RIGHT CORONARY ARTERY: Mild luminal irregularities less than 30% PROX RCA: Previously placed stent has an instent 50 % restenosis DISTAL RCA: is occluded COLLATERAL FLOW: Collateral flow from Left to Right COMPLICATIONS No Complications PROCEDURE MEDICATIONS Versed 1 mg IV Fentanyl 50 mcg IV Oxygen: 2 L/min via nasal cannula Heparin diluted in 23cc Heparinized saline. Patient given 10cc IA of this solution. 10/15/2020 08:22: 30 Verapamil 2.5mg, Ntg 100mcgs, 2000 units of Heparin diluted in 23cc Heparinized saline. Patient give n 10cc IA of this solution. 10/15/2020 08:22:30 SUMMARY OF HEMODYNAMIC DATA Time AIR REST ECG 07:04:03 AO 126/71 (94) SA 08:26:56 AO 135/69 (99) 08:39:22 LV 205/1, 35 08:58:48 LV 205/-3, 35 08:58:54 LV 198/-1, 33 09:00:01 LV 196/-1, 31 09:00:08 LVp 177/-1, 27 09:01:27 AOp 173/73 (113) 09:01:32 RM AIR REST 09:12:37 Signed By Cayden Morton MD On 10/15/2020 09:19:07 Cayden Morton MD
== END 2020-10-15 10:50 | disposition home or self-care (01) ==
LOC: CLSP 06:42
PROVIDERS: PCP Family Medicine; Referring Provider Internal Medicine Cardiovascular Disease; Visit Provider Internal Medicine Cardiovascular Disease
DX: I25.10 Atherosclerotic heart disease of native coronary artery without angina pectoris (principal); I10 Essential (primary) hypertension; E78.5 Hyperlipidemia, unspecified; I25.2 Old myocardial infarction; C61 Malignant neoplasm of prostate; R94.39 Abnormal result of other cardiovascular function study; K21.9 Gastro-esophageal reflux disease without esophagitis; Z95.5 Presence of coronary angioplasty implant and graft; Z79.899 Other long term (current) drug therapy; Z86.73 Personal history of transient ischemic attack (TIA), and cerebral infarction without residual deficits; Z87.891 Personal history of nicotine dependence
CPT/HCPCS: 36415; 71046; 80048; 85027; 93458; 99152; 99153; J7040; Q9967; C1769; C1894

== ENCOUNTER 2022-07-24 16:07 | Emergency (ER) | payer MEDICARE, OTHER, SELFPAY ==
[2022-07-24] VITALS (9 sets, daily range): BP systolic 148–168; BP diastolic 75–90; PULSE 68–86; RESP 14–17; TEMP 36.7–37.1; O2SAT 93–98; BMI 35.4
--- NOTE | 2022-07-24 16:48 | CT_ITS ---
INDICATION: Trauma, fall EXAMINATION: CT BRAIN - CT Head or Brain W/O Contrast Injection TECHNIQUE: Multiple axial images were obtained of the head without intravenous contrast. A radiation dose optimization technique was used for this scan. IV Contrast dosage and agent: None. COMPARISON: 08/17/2020 FINDINGS: BRAIN PARENCHYMA: No intra- or extra-axial hemorrhage. No evidence of acute infarct. No intracranial mass or mass effect. There is preservation of the lou/white matter interface. Posterior fossa structures are unremarkable. Volume loss with low attenuation of the periventricular white matter typical of chronic small vessel disease. CSF SPACES: Appropriate for age. No hydrocephalus. Basal cisterns are patent. CALVARIUM, SKULL BASE, PARANASAL SINUSES AND MASTOID AIR CELLS: Clear. No acute fracture. CT/Brain/Head without Contrast IMPRESSION: Volume loss with chronic white matter changes. No acute intracranial findings. Electronically Signed: Scott Branch MD at 18:05 EDT ,
--- NOTE | 2022-07-24 16:49 | EKG12_ITS ---
Test Reason : FALL Blood Pressure : / mmHG Vent. Rate : 074 BPM Atrial Rate : 074 BPM P-R Int : 208 ms QRS Dur : 098 ms QT Int : 416 ms P-R-T Axes : 052 050 048 degrees QTc Int : 461 ms Normal sinus rhythm Normal ECG Confirmed by RONNIE LANTIGUA, MARY ([id number]), video tape editor SALINAS RAM ([id number]) on 07/28/2022 9:46:11 AM Referred By: Confirmed By:MARY TRUJILLO MD
--- NOTE | 2022-07-24 16:49 | RAD_ITS ---
INDICATION: Trauma, fall, injury with pain EXAMINATION/TECHNIQUE: X-RAY - RIGHT XR Humerus Min 2 Views 2 VIEWS COMPARISON: Right shoulder series same date FINDINGS: SOFT TISSUES: No soft tissue swelling or gas. No radiopaque foreign body. BONES/JOINTS: Anterior dislocation right shoulder. No acute fracture. Remaining joint spaces anatomically aligned.. RAD/Humerus min 2 Views IMPRESSION: Anterior dislocation right shoulder. Electronically Signed: Scott Branch MD at 18:37 EDT ,
--- NOTE | 2022-07-24 16:49 | RAD_ITS ---
INDICATION: Trauma, fall, injury with pain EXAMINATION/TECHNIQUE: X-RAY - RIGHT XR Shoulder Min 2 Views 2 VIEWS COMPARISON: Chest x-ray same date FINDINGS: SOFT TISSUES: No soft tissue swelling or gas. No radiopaque foreign body. BONES/JOINTS: Anterior shoulder dislocation. No acute fracture. Acromioclavicular joint is anatomically aligned. RAD/Shoulder min 2 Views IMPRESSION: Anterior right shoulder dislocation. Electronically Signed: Scott Branch MD at 18:35 EDT ,
--- NOTE | 2022-07-24 16:50 | ED.VIS.FALL ---
HPI HPI - Fall History of Present Illness Chief Complaint: Fall Informant: patient and spouse/S.O. Narrative Narrative: Is a 77-year-old male with history of dementia, stroke, coronary artery disease status post stent placement, prostate cancer and hyperlipidemia presenting after fall. Patient apparently was walking from the living room to the kitchen and fell. The states he landed on his left side was complaining of significant right arm pain. He was complaining previously of left knee pain. She did not witness the fall but heard it. does not think any loss of consciousness. Because of his dementia patient is a poor historian. feels that he is at his baseline and they were asked again ready to go out to dinner tonight. Patient has no other complaints besides his right shoulder pain. Denies any associated numbness or tingling. He is on 81 mg aspirin daily. [facility] Medical History Abdominal aortic aneurysm (AAA) Abnormal nuclear stress test Actinic keratoses Anemia Atherosclerotic heart disease of [place] coronary artery without angina pectoris Dementia Essential (primary) hypertension GERD (gastroesophageal reflux disease) HLD (hyperlipidemia) Ischemic cerebrovascular accident (CVA) (02/10/18) OAB (overactive bladder) Obesity Obstructive sleep apnea Old inferior wall myocardial infarction Prostate cancer Rosacea Home Medications multivitamin 1 tab PO DAILY vitamin 10/04/13 [History Last Taken 02/09/18] metoprolol succinate 50 mg tablet,extended release 24 hr 75 mg PO DAILY bp 02/10/18 [History Last Taken 10/15/20] pravastatin 80 mg tablet 80 mg PO QHS cholesterol 02/10/18 [History Last Taken 02/09/18] losartan 100 mg tablet 100 mg PO DAILY bp ##0 02/12/18 [Rx Last Taken 10/15/20] aspirin 81 mg chewable tablet 81 mg PO DAILY@0800 03/03/20 [History Last Taken 10/15/20] solifenacin 5 mg tablet 5 mg PO DAILY 08/17/20 [History Last Taken Unknown] amlodipine 10 mg tablet 10 mg PO DAILY 09/11/20 [History Last Taken 10/15/20] cinnamon bark 500 mg capsule 500 mg PO DAILY 09/11/20 [History Last Taken Unknown] donepezil 10 mg tablet 10 mg PO QHS 09/11/20 [History Last Taken Unknown] nitroglycerin 0.4 mg sublingual tablet 0.4 mg sublingual Q5-15M PRN Cardiac/Chest Pain 09/11/20 [History Last Taken Unknown] pantoprazole 40 mg tablet,delayed release 40 mg PO DAILY 09/11/20 [History Last Taken Unknown] alpha lipoic acid 200 mg capsule 200 mg PO DAILY 09/12/21 [History Last Taken Unknown] ascorbate calcium (vitamin C) 500 mg tablet 500 mg PO DAILY 09/12/21 [History Last Taken Unknown] hydrocodone-acetaminophen 5-325mg 5mg-325mg 1 tab PO Q8H PRN pain 3 days #9 tabs 07/24/22 [Rx Last Taken Unknown] Allergy/AdvReac Type Severity Reaction Status Date / Time atorvastatin [From Lipitor] Allergy PT UNSURE Verified 07/24/22 16:15 OF REACTION azithromycin [From Zithromax] Allergy Itching Verified 07/24/22 16:15 Beta-Blockers Allergy NEEDS Verified 07/24/22 16:15 (Beta-Adrenergic Bloc FOLLOW-UP sildenafil [From Viagra] Allergy PT UNSURE Verified 07/24/22 16:15 OF REACTION Dmjkekx-TUA-QuQ Reductase Allergy Other Verified 07/24/22 16:15 Inhibitor [Krojlcr-Ivp-Dmf Reductase Inhibitor] ezetimibe [From Zetia] AdvReac PT UNSURE Verified 07/24/22 16:15 OF REACTION Family History Sister CAD (coronary artery disease) Mother CAD (coronary artery disease) Father Colon cancer Brother CAD (coronary artery disease) Surgical History History of coronary artery stent placement (10/07/13) History of herniorrhaphy History of left heart catheterization (10/15/20) Social History Smoking Status: Former smoker quit date: 10/05/78 pack-years: 62 ROS ROS ED Constitutional Constitutional ED: Denies chills or fever(s) Eyes Eyes: Denies blurry vision or change in vision ENT ENT ED: Denies rhinorrhea or sore throat Cardiovascular Cardiovascular: Denies chest pain or palpitations Respiratory/Chest Respiratory/Chest: Denies cough Gastrointestinal Gastrointestinal: Denies abdominal pain, constipation, diarrhea, nausea or vomiting Genitourinary Genitourinary ED: Denies dysuria or hematuria Musculoskeletal Musculoskeletal: Reports other Details: right shoulder pain ; Denies arthralgias, back pain, myalgias or neck pain Integumentary Denies Abrasions or rash Neurologic Neurologic: Denies headache(s), paresthesias or weakness Psychiatric Psychiatric: Denies anxiety or depression Hematologic/Lymphatic Hematologic/Lymphatic: Denies easy bleeding or easy bruising EXAM Physical Exam Const Vital Signs: 07/24/22 16:08 07/24/22 18:15 07/24/22 20:07 Temperature 98.1 F Temperature Source Temporal Pulse Rate 71 68 83 Pulse Rate [1 (Initial Baseline)] Pulse Rate [2] Pulse Rate [3] Pulse Rate [4] Respiratory Rate 16 16 15 Respiratory Rate [1 (Initial Baseline)] Respiratory Rate [2] Respiratory Rate [3] Respiratory Rate [4] Blood Pressure 160/79 H 157/77 H 161/81 H Blood Pressure [1 (Initial Baseline)] Blood Pressure [2] Blood Pressure [3] Blood Pressure [4] Blood Pressure Mean 106 103 107 Pulse Ox 96 95 96 Oxygen Delivery Method Room Air Room Air Room Air Oxygen Delivery Method [1 (Initial Baseline)] Oxygen Delivery Method [2] Oxygen Delivery Method [3] Oxygen Delivery Method [4] Oxygen Flow Rate (L/min) Oxygen Flow Rate (L/min) [1 (Initial Baseline)] Oxygen Flow Rate (L/min) [2] Oxygen Flow Rate (L/min) [3] Oxygen Flow Rate (L/min) [4] Fraction of Inspired Oxygen (FIO2) [1 (Initial Baseline)] Fraction of Inspired Oxygen (FIO2) [2] Fraction of Inspired Oxygen (FIO2) [3] Fraction of Inspired Oxygen (FIO2) [4] 07/24/22 20:45 07/24/22 20:46 07/24/22 21:10 Temperature 98.8 F Temperature Source Pulse Rate 86 Pulse Rate [1 (Initial Baseline)] 84 Pulse Rate [2] 78 Pulse Rate [3] 76 Pulse Rate [4] 74 Respiratory Rate 16 Respiratory Rate [1 (Initial Baseline)] 15 Respiratory Rate [2] 14 Respiratory Rate [3] 17 Respiratory Rate [4] 15 Blood Pressure 160/90 H Blood Pressure [1 (Initial Baseline)] 160/90 H Blood Pressure [2] 160/90 H Blood Pressure [3] 148/75 H Blood Pressure [4] 152/76 H Blood Pressure Mean Pulse Ox 98 Oxygen Delivery Method Nasal Cannula Room Air Oxygen Delivery Method [1 (Initial Baseline)] Nasal Cannula Oxygen Delivery Method [2] Nasal Cannula Oxygen Delivery Method [3] Nasal Cannula Oxygen Delivery Method [4] Nasal Cannula Oxygen Flow Rate (L/min) 2 0 Oxygen Flow Rate (L/min) [1 (Initial Baseline)] 2 Oxygen Flow Rate (L/min) [2] 4 Oxygen Flow Rate (L/min) [3] 4 Oxygen Flow Rate (L/min) [4] 4 Fraction of Inspired Oxygen (FIO2) [1 (Initial Baseline)] 100 Fraction of Inspired Oxygen (FIO2) [2] 100 Fraction of Inspired Oxygen (FIO2) [3] 100 Fraction of Inspired Oxygen (FIO2) [4] 100 07/24/22 21:15 Temperature Temperature Source Pulse Rate Pulse Rate [1 (Initial Baseline)] Pulse Rate [2] Pulse Rate [3] Pulse Rate [4] Respiratory Rate Respiratory Rate [1 (Initial Baseline)] Respiratory Rate [2] Respiratory Rate [3] Respiratory Rate [4] Blood Pressure Blood Pressure [1 (Initial Baseline)] Blood Pressure [2] Blood Pressure [3] Blood Pressure [4] Blood Pressure Mean Pulse Ox Oxygen Delivery Method Room Air Oxygen Delivery Method [1 (Initial Baseline)] Oxygen Delivery Method [2] Oxygen Delivery Method [3] Oxygen Delivery Method [4] Oxygen Flow Rate (L/min) 0 Oxygen Flow Rate (L/min) [1 (Initial Baseline)] Oxygen Flow Rate (L/min) [2] Oxygen Flow Rate (L/min) [3] Oxygen Flow Rate (L/min) [4] Fraction of Inspired Oxygen (FIO2) [1 (Initial Baseline)] Fraction of Inspired Oxygen (FIO2) [2] Fraction of Inspired Oxygen (FIO2) [3] Fraction of Inspired Oxygen (FIO2) [4] Positive well nourished and well developed General Appearance ED: well developed and NAD HEENT Reports normocephalic and TM's normal bilaterally HEENT Narrative: No signs of facial trauma. atraumatic; Negative for contusion or hematoma Eyes PERRL and EOMs intact bilaterally Neck full ROM and supple General: Negative for tenderness Resp normal respiratory effort, no retractions and clear to auscultation bilaterally Cardio regular rate, regular rhythm and no murmurs Cardio Narrative: 2+ bilateral DP pulses GI non-tender, non-distended and no masses Extremity Extremity Narrative: Pelvis is stable. No rotational deformity of the lower extremities. Decreased range of motion of the right shoulder with deformity of the shoulder joint. No pain with range of motion of the elbow or the wrist. Normal left upper extremity. Neuro CN's II-XII intact bilaterally, moves all extremities, no focal motor deficits and no sensory deficits noted Sensorium / Orientation: alert, oriented to person and oriented to place Psych mental status grossly normal and thought process normal Skin Lesions: no lesions Trauma: Negative for abrasion MDM MDM MDM Narrative Medical decision making narrative: Patient evaluated for a fall and subsequent right shoulder injury. It sounds like it was mechanical however patient is a poor historian and the did not witness the fall. No report of loss of consciousness or head injury. No signs of head trauma on physical exam. Chest x-ray interpreted by myself as well as radiology does not show any acute process. Humerus and right shoulder x-rays show an acute anterior dislocation but no acute fracture. This is again interpreted by myself as well as radiology. 2 attempts were made at reduction without sedation using the park technique. This was unsuccessful. Procedural sedation performed using propofol. See procedure note. Patient tolerated this well and does have successful reduction of his shoulder. Is placed in a sling. Will be discharged home with 's care. and patient agreeable this plan of care. Patient is prescribed a short course of [place] if he has breakthrough pain but states that she will try to not use it unless absolutely necessary. He is given Ortho for outpatient follow-up. Patient discharged home in stable and improved condition. Was given a total of 2 doses of IV morphine in the ER for pain control. Lab Data Attestation: I reviewed the patient's lab results. Labs: Laboratory Results - last 24 hr 07/24/22 07/24/22 07/24/22 17:01 17:01 17:18 WBC 11.3 H RBC 4.88 Hgb 14.3 Hct 43.1 MCV 88.3 MCH 29.3 MCHC 33.2 RDW Std Deviation 41.8 RDW Coeff of Sami 12.9 Plt Count 196 MPV 9.8 Immature Gran % (Auto) 0.400 Neut % (Auto) 72.2 H Lymph % (Auto) 18.3 L Walsh % (Auto) 6.9 Eos % (Auto) 1.9 Baso % (Auto) 0.3 Absolute Neuts (auto) 8.2 H Absolute Lymphs (auto) 2.07 Nucleated RBC % 0 Sodium 141 Potassium 3.8 Chloride 108 H Carbon Dioxide 26.0 Anion Gap 7 BUN 14 Creatinine 1.23 Estim Creat Clear Calc 47.11 Est GFR (MDRD) Af Amer 73 Est GFR (MDRD) Non-Af 60 BUN/Creatinine Ratio 11.4 Glucose 143 H Calcium 9.3 Urine Color Yellow Urine Clarity Clear Urine pH 7.0 Ur Specific [place] 1.010 Urine Protein 30 H Urine Glucose (UA) Normal Urine Ketones Negative Urine Occult Blood Negative Urine Nitrite Negative Urine Bilirubin Negative Urine Urobilinogen Normal Ur Leukocyte Esterase Negative Urine RBC 0 SEEN Urine WBC 0-5 SEEN Ur Squamous Epith Cells 0-5 SEEN Urine Bacteria RARE Urine Mucus 0 SEEN Radiography Diagnostic Testing: Clinical Impression(s) from Imaging Studies Brain CT 07/24/22 16:48 IMPRESSION: Volume loss with chronic white matter changes. No acute intracranial findings. Electronically Signed: Scott Branch MD at 18:05 EDT Reading Location ID and State: [facility] / [place] Tel , Service support , Humerus X-Ray 07/24/22 16:49 IMPRESSION: Anterior dislocation right shoulder. Electronically Signed: Scott Branch MD at 18:37 EDT Reading Location ID and State: [facility] / [place] Tel , Service support , Shoulder X-Ray 07/24/22 16:49 IMPRESSION: Anterior right shoulder dislocation. Electronically Signed: Scott Branch MD at 18:35 EDT , Chest X-Ray 07/24/22 17:25 IMPRESSION: Right shoulder dislocation. No acute cardiopulmonary disease. Electronically Signed: Scott Branch MD at 18:33 EDT , Shoulder X-Ray 07/24/22 19:10 IMPRESSION: Persistent anterior dislocation of the glenohumeral joint. Electronically Signed: Marquis Alberto DO at 19:45 EDT Reading Location ID and State: [facility] / [place] Tel [phone], Service support , Shoulder X-Ray 07/24/22 21:05 IMPRESSION: Anatomic reduction of the right shoulder. Electronically Signed: Scott Branch MD at 21:26 EDT , Rhythm Strip Rhythm Strip: Sinus Rhythm Rate: 74 Ectopy: None EKG Initial EKG: Attestation: I personally reviewed and interpreted this EKG as follows: Interpretation: Sinus Rhythm Comments: Normal sinus rhythm rate of 74 Normal axis Normal intervals Normal ST segments Procedures Procedural Sedation 1 (Initial Baseline): Consent Signed: Yes Any Problems With Anesthesia: No You/Your family experience fever (hyperthermia) w/anesthesia: No Sedation medication: Propofol Dose: 90 Route: IV Mallampati Score: Class II ASA Classification: II Other Procedures Procedure(s): Closed reduction of the right shoulder Patient neurovascularly intact prior to this. Once adequate analgesia achieved traction with external rotation and AB duction performed. It took a couple of attempts however successful reduction achieved. Patient placed in a sling and is neuro vascularly intact afterwards with brisk capillary refill and 2+ radial pulses. Discharge Plan Triage Chief Complaint: Fall ED Provider: Galina Hancock Dx/Rx/DC Orders Clinical Impression: Fall, Anterior dislocation of right shoulder Instructions: ED Joint Dislocation, ED Fall Prevention Prescriptions: New hydrocodone-acetaminophen 5-325 mg tablet 1 tab PO Q8H PRN (Reason: pain) 3 Days Qty: 9 0RF No Action amlodipine 10 mg tablet 10 mg PO DAILY cinnamon bark 500 mg capsule 500 mg PO DAILY pantoprazole 40 mg tablet,delayed release (DR/EC) 40 mg PO DAILY donepezil 10 mg tablet 10 mg PO QHS nitroglycerin 0.4 mg tablet, sublingual 0.4 mg SUBLINGUAL Q5-15M PRN (Reason: Cardiac/Chest Pain) Rx Instructions: do not exceed 3 doses per episode ascorbate calcium (vitamin C) 500 mg tablet 500 mg PO DAILY alpha lipoic acid 200 mg capsule 200 mg PO DAILY multivitamin 1 TABLET tablet 1 tab PO DAILY metoprolol succinate 50 MG tablet extended release 24 hr 75 mg PO DAILY pravastatin 80 MG tablet 80 mg PO QHS Label Comments: losartan 100 MG tablet 100 mg PO DAILY Qty: 0 0RF Rx Instructions: Hold if systolic blood pressure less than 110 mmHg aspirin 81 MG tablet,chewable 81 mg PO DAILY@0800 solifenacin 5 MG tablet 5 mg PO DAILY Primary Care Provider: Adama Jon Referrals: Adama Jon MD [Primary Care Provider] - Loco Rosas MD [Med Staff - Active Staff] - 1 Week Activity Restrictions/Additional Instructions: Follow-up with orthopedics in 1 to 2 weeks. Wear sling until cleared by orthopedics. You can take ibuprofen or Tylenol instead of prescription pain medicine ([place]). At the pain is too severe he does have a prescription for [place] which is hydrocodone/acetaminophen. This medicine can increase confusion and does cause constipation. If you do take it take a stool softener or MiraLAX with it. Disposition Disposition: Home, Self Care
[2022-07-24] MEDS: Morphine 4 MG/ML Syringe IV ×2 (17:07→20:12)
[2022-07-24 17:14] LABS: Absolute Lymphocyte Count 2.07 X10^3/uL (0.83-4.51); Absolute Neutrophil Count 8.2 X10^3/uL (2.0-7.7); Basophil# 0.03 X10^3/uL; Basophil% 0.3 % (0-1); Eosinophil# 0.21 X10^3/uL; Eosinophils% 1.9 % (0-5); Hematocrit 43.1 % (40-54); Hemoglobin 14.3 g/dL (13.0-16.5); Lymphocyte # 2.07 X10^3/ul (0.83-4.51); Lymphocyte % 18.3 % (19-41); Mean Corp Hgb Conc 33.2 g/dL (32-36); Mean Corpuscular Hgb 29.3 pg (27.0-32.0); Mean Corpuscular Volume 88.3 fL (80-94); Mean Platelet Vol. 9.8 fl (6.2-12.0); Monocyte# 0.78 X10^3/uL; Monocyte% 6.9 % (0-10); NRBC Flagged by Analyzer 0 % (0-5); Neutrophil # 8.17 X10^3/uL (2.7-7.7); Neutrophil % 72.2 % (47-70); Platelet Count 196 K/mm3 (150-450); RBC Distribution Width CV 12.9 % (11.6-14.6); RBC Distribution Width SD 41.8 fl (35.1-43.9); Red Blood Count 4.88 M/mm3 (4.6-6.2); White Blood Count 11.3 K/mm3 (4.4-11.0)
[2022-07-24 17:25] LABS: Mucous, Urine 0 SEEN /hpf (<or=2+); Red Blood Cells-Urine 0 SEEN /hpf (0-5)
--- NOTE | 2022-07-24 17:25 | RAD_ITS ---
INDICATION: Trauma, fall EXAMINATION/TECHNIQUE: X-RAY - portable upright AP chest x-ray COMPARISON: 10/08/2020 FINDINGS: LINES/DEVICES: None. LUNGS: Stable calcified pleural plaques. No consolidations or pleural effusions. MEDIASTINUM AND CARDIOVASCULAR STRUCTURES: Cardiac silhouette not enlarged. Central airways and mediastinal contour are unremarkable. BONES AND SOFT TISSUES: Anterior right shoulder dislocation. No acute fracture identified. RAD/Chest 1 View (Portable) IMPRESSION: Right shoulder dislocation. No acute cardiopulmonary disease. Electronically Signed: Scott Branch MD at 18:33 EDT ,
[2022-07-24 17:32] LABS: Anion Gap 7 (5-15); BUN 14 mg/dL (7-18); BUN/Creat Ratio 11.4 RATIO (10-20); Calcium,Total 9.3 mg/dL (8.5-10.1); Chloride 108 mmol/L (98-107); Creatinine, Serum 1.23 mg/dL (0.70-1.30); EST Glomerular Filtration Rate 60 mL/min (>60); Est Glom Filt Rate - Afr Amer 73 mL/min (>60); Estimated Creatinine Clearance 47.11 ml/min; Glucose 143 mg/dL (74-106); Potassium 3.8 mmol/L (3.5-5.1); Sodium Level 141 mmol/L (136-145)
[2022-07-24 17:56] LABS: Color, Urine Yellow (Yellow); Glucose, Dipstick Normal (Normal); Ketone-Dipstick Negative (Negative); Leukocyte Esterase-Dipstick Negative /ul (Negative); Nitrite-Dipstick Negative (Negative); Occult Blood-Urine Negative /ul (Negative); Protein-Dipstick 30 mg/dl (Negative); Urine Bilirubin Dipstick Negative (Negative); Urine Clarity Clear (Clear); Urine Urobilinogen Normal (Normal)
[2022-07-24 18:16] LABS: Bacteria RARE /hpf (None Seen); Squamous Epithelial Cells - UA 0-5 SEEN /hpf (0-5); White Blood Cells 0-5 SEEN /hpf (0-5)
--- NOTE | 2022-07-24 19:10 | RAD_ITS ---
STUDY: X-RAY - RIGHT SHOULDER REASON FOR EXAM: Male, 77 years old. Post reduction. TECHNIQUE: 2 view(s) of the shoulder. COMPARISON: Right shoulder 07/24/2022 ([id number]) FINDINGS: Persistent anterior dislocation of the glenohumeral joint. No visualized fracture. There is degenerative arthrosis of the acromioclavicular joint without inferior osseous spur formation. Normal acromion. Normal humeral head and visualized proximal humerus. The soft tissue structures are unremarkable. Normal visualized pulmonary apex. RAD/Shoulder min 2 Views IMPRESSION: Persistent anterior dislocation of the glenohumeral joint. Electronically Signed: Marquis Alberto DO at 19:45 EDT ,
[2022-07-24] MEDS: Ondansetron 4 MG/2 ML Vial IV (20:42)
--- NOTE | 2022-07-24 21:05 | RAD_ITS ---
INDICATION: post reduction EXAMINATION/TECHNIQUE: X-RAY - RIGHT XR Shoulder Min 2 Views 2 VIEWS COMPARISON: Right shoulder series earlier same day FINDINGS: Anatomic reduction of the right shoulder joint. No acute fracture demonstrated. RAD/Shoulder min 2 Views IMPRESSION: Anatomic reduction of the right shoulder. Electronically Signed: Scott Branch MD at 21:26 EDT ,
[2022-07-24] MEDS: Propofol 200 MG/20 ML Vial IV BOLUS (21:22)
== END 2022-07-24 22:03 | disposition home or self-care (01) ==
PROVIDERS: Emergency Provider Emergency Medicine; PCP Family Medicine; Visit Provider Emergency Medicine
DX: S43.014A Anterior dislocation of right humerus, initial encounter (principal); F03.90 Unspecified dementia, unspecified severity, without behavioral disturbance, psychotic disturbance, mood disturbance, and anxiety; I25.10 Atherosclerotic heart disease of native coronary artery without angina pectoris; I10 Essential (primary) hypertension; M25.562 Pain in left knee; E78.5 Hyperlipidemia, unspecified; Z87.891 Personal history of nicotine dependence; Z95.5 Presence of coronary angioplasty implant and graft; Z86.73 Personal history of transient ischemic attack (TIA), and cerebral infarction without residual deficits; W19.XXXA Unspecified fall, initial encounter
CPT/HCPCS: 23650; 70450; 71045; 73030; 73060; 80048; 81001; 85025; 93005; 96374; 96375; 96376; 99152; 99285; J7030; A4216; J2405

== ENCOUNTER 2023-06-17 13:24 | Emergency (ER) | payer MEDICARE, OTHER, SELFPAY ==
[2023-06-17 13:30] VITALS: BP 159/82; PULSE 88; RESP 20; TEMP 39.3; O2SAT 99
--- NOTE | 2023-06-17 14:00 | EKG12_ITS ---
Test Reason : ALT LOC Blood Pressure : / mmHG Vent. Rate : 082 BPM Atrial Rate : 082 BPM P-R Int : 198 ms QRS Dur : 080 ms QT Int : 376 ms P-R-T Axes : 035 064 058 degrees QTc Int : 439 ms Normal sinus rhythm Normal ECG Confirmed by PEARL LANTIGUA, [place] ([id number]), sports editor BERLIN CROSS ([id number]) on 06/18/2023 1:13:25 PM Referred By: BRIGIDA Confirmed By:AUSTIN KANG MD
--- NOTE | 2023-06-17 14:01 | CT_ITS ---
STUDY: CT BRAIN WITHOUT CONTRAST REASON FOR EXAM: Male, 78 years old. Confusion with history of CVA RADIATION DOSAGE (If Supplied By Facility): CTDIvol = ( 47.06 ) mGy, DLP = ( 1013.85 ) mGycm TECHNIQUE: Transaxial CT imaging of the brain was performed without administration of intravenous contrast material. Individualized dose optimization techniques were used for this CT. COMPARISON: Comparison is made with prior study dated July 24, 2022. FINDINGS: Normal soft tissue structures. Normal calvarium. There is mild cerebral atrophy with widening of the extra-axial spaces and ventricular dilatation. There are areas of decreased attenuation within the white matter tracts of the supratentorial brain, consistent with microvascular disease changes. Normal basal ganglia and thalami. Normal brainstem. Normal cerebellum. There is no intracranial hemorrhage. There are no findings of an acute ischemic infarction. Atherosclerotic calcification of the cavernous portions of the internal carotid arteries bilaterally. Normal visualized paranasal sinuses. CT/Brain/Head without Contrast IMPRESSION: Chronic involutional changes of the brain. Electronically Signed: Jorge Alberto Cruz MD at 15:09 EDT ,
--- NOTE | 2023-06-17 14:02 | EDS_ITS ---
HPI History of Present Illness Chief Complaint: Confusion Onset/Context/Timing Onset: Today Narrative Narrative: 78 year-old male with his via EMS with confusion that she noticed today. He has past medical history of dementia and remote CVA in 2018. He also has hypertension and hyperlipidemia, presents with confusion that she noticed a few hours ago. He was acting strangely. It may have started even earlier than that, when he woke up this morning. She states that he was having bizarre behavior and seemed more confused. They went to the [facility] last evening, and were walking around, she thinks he may be tired from that as well. She noticed that throughout the night he has been coughing, and bringing up phlegm, and had a fever. He last received Tylenol 8 hours ago. She states that he takes a blood thinner because he has a stent in his heart and has coronary artery disease as well. [facility] Medical History Abdominal aortic aneurysm (AAA) Abnormal nuclear stress test Actinic keratoses Anemia Atherosclerotic heart disease of [place] coronary artery without angina pectoris Dementia Essential (primary) hypertension GERD (gastroesophageal reflux disease) HLD (hyperlipidemia) Ischemic cerebrovascular accident (CVA) (02/10/18) OAB (overactive bladder) Obesity Obstructive sleep apnea Old inferior wall myocardial infarction Prostate cancer Rosacea Home Medications multivitamin 1 tab PO DAILY vitamin 10/04/13 [History Last Taken 02/09/18] metoprolol succinate 50 mg tablet,extended release 24 hr 75 mg PO DAILY bp 02/10/18 [History Last Taken 10/15/20] pravastatin 80 mg tablet 80 mg PO QHS cholesterol 02/10/18 [History Last Taken 02/09/18] losartan 100 mg tablet 100 mg PO DAILY bp ##0 02/12/18 [Rx Last Taken 10/15/20] aspirin 81 mg chewable tablet 81 mg PO DAILY@0800 03/03/20 [History Last Taken 10/15/20] solifenacin 5 mg tablet 5 mg PO DAILY 08/17/20 [History Last Taken Unknown] amlodipine 10 mg tablet 10 mg PO DAILY 09/11/20 [History Last Taken 10/15/20] cinnamon bark 500 mg capsule 500 mg PO DAILY 09/11/20 [History Last Taken Unknown] donepezil 10 mg tablet 10 mg PO QHS 09/11/20 [History Last Taken Unknown] nitroglycerin 0.4 mg sublingual tablet 0.4 mg sublingual Q5-15M PRN Cardiac/Chest Pain 09/11/20 [History Last Taken Unknown] pantoprazole 40 mg tablet,delayed release 40 mg PO DAILY 09/11/20 [History Last Taken Unknown] alpha lipoic acid 200 mg capsule 200 mg PO DAILY 09/12/21 [History Last Taken Unknown] ascorbate calcium (vitamin C) 500 mg tablet 500 mg PO DAILY 09/12/21 [History Last Taken Unknown] memantine 5 mg tablet 5 mg PO BID 02/03/23 [History Last Taken Unknown] Allergy/AdvReac Type Severity Reaction Status Date / Time atorvastatin [From Lipitor] Allergy PT UNSURE Verified 06/17/23 13:34 OF REACTION azithromycin [From Zithromax] Allergy Itching Verified 06/17/23 13:34 Beta-Blockers Allergy NEEDS Verified 06/17/23 13:34 (Beta-Adrenergic Bloc FOLLOW-UP sildenafil [From Viagra] Allergy PT UNSURE Verified 06/17/23 13:34 OF REACTION Iwghfhj-MFM-LmR Reductase Allergy Other Verified 06/17/23 13:34 Inhibitor [Jhnzehd-Avp-Aus Reductase Inhibitor] ezetimibe [From Zetia] AdvReac PT UNSURE Verified 06/17/23 13:34 OF REACTION Family History Sister CAD (coronary artery disease) Mother CAD (coronary artery disease) Father Colon cancer Brother CAD (coronary artery disease) Surgical History History of coronary artery stent placement (10/07/13) History of herniorrhaphy History of left heart catheterization (10/15/20) Social History Smoking Status: Former smoker quit date: 10/05/78 pack-years: 62 alcohol intake: never substance use type: does not use caffeine: Yes Type: coffee Number of servings: 3 ROS ROS ED ROS Narrative Constitutional: Positive fever, no chills. HEENT: No sore throat. No neck pain. No loss of vision. No rhinorrhea. Cardiovascular: No chest pain. No palpitations. No pedal edema. Respiratory: Positive cough, no shortness of breath. Abdominal: No abdominal pain. No nausea. No vomiting. Genitourinary: No dysuria. No hematuria. Musculoskeletal: No myalgias. No arthralgias. Neurologic: No headaches. No dizziness. No lightheadedness. Confused today, with history of dementia. Skin: No rash. No change in color. Psychiatric: No depression. No anxiety. EXAM Physical Exam Narrative Exam Narrative: 102.8 ?F, vital signs noted. Nontoxic-appearing. HEENT: Normocephalic. Atraumatic. PERRL, EOMI. Neck soft and supple. No point tenderness or step off. Cardiovascular: Regular rate and rhythm. No murmurs, rubs, or gallops appreciated. Respiratory: No tachypnea. Lungs clear to auscultation bilaterally. With exception of its occasional expiratory wheeze left base. Gastrointestinal: Abdomen soft, nontender, with normoactive bowel sounds. No rebound or guarding. Neurological: Awake. Alert. Oriented to person. Nonfocal, nonlateralizing. Skin: No rash. Normal color. No pallor. Musculoskeletal: No pedal edema. Full range of motion extremities. Const Vital Signs: 06/17/23 13:30 06/17/23 13:36 06/17/23 14:04 Temperature 102.8 F H Temperature Source Oral Pulse Rate 88 Respiratory Rate 20 H Respiratory Effort Normal Non-Labored Respiratory Pattern Normal Blood Pressure 159/82 H Blood Pressure Mean 107 Pulse Ox 99 Oxygen Delivery Method Room Air Room Air MDM [facility] Narrative Medical decision making narrative: Given the patient's baseline dementia, I am not concerned for stroke as he has no focal deficit, but CT of the brain will be obtained. He is febrile here at 102.8 ?F. Concern is for sepsis, pneumonia mainly given his cough. He will be swabbed for COVID and sepsis work-up was pursued. Lower in the differential diagnosis is UTI causing confusion and fever, but he does not complain of any dysuria. EKG was obtained and interpreted by myself independently as normal sinus rhythm at 82 bpm without ectopy or acute ST changes. No STEMI. I reviewed his laboratory work and he has a normal white count of 10.3, hemoglobin normal at 14.0, platelet count normal at 218. Review of his sodium is normal at 139, chloride slightly elevated at 108 which I think is nonspecific, he has a slight increase of his creatinine to 1.36 which is slightly above his baseline but a normal BUN of 15. Lactic acid is normal at 1.6. I have low suspicion for sepsis. As his temperature was elevated at 102.8 he was given Tylenol. UTI was ruled out with negative urinalysis. Chest x-ray obtained in 1 view and interpreted by myself independently shows what appears to be bibasilar pneumonia. I reviewed the radiology report which confirms my independent interpretation. However, I do not feel antibiotics are indicated as he was swabbed for COVID and influenza and is positive for COVID-19. I do not feel that he requires observation or admission at this time as his pulse ox is 99% on room air. I feel he be discharged safely home with symptomatic treatment with [id number]-[id number] medications. I do not feel he requires Decadron as he is not hypoxic. I discussed this with the patient and his , and he feels well enough to go home. Return instructions to the emergency department were reviewed. Patient and are agreeable to the plan. Disposition is discharg ed home in stable condition. History & Record Review Discussion w/independent historian: Patient and Family Additional record(s) reviewed:: Prior ED visit and Prior labs Lab Data Attestation: I reviewed the patient's lab results. Labs: Laboratory Results - last 24 hr 06/17/23 06/17/23 06/17/23 13:23 13:40 14:20 WBC 10.3 RBC 4.79 Hgb 14.0 Hct 42.8 MCV 89.4 MCH 29.2 MCHC 32.7 RDW Std Deviation 42.5 RDW Coeff of Sami 13.1 Plt Count 218 MPV 10.5 Immature Gran % (Auto) 0.400 Neut % (Auto) 81.6 H Lymph % (Auto) 7.3 L Estill % (Auto) 9.9 Eos % (Auto) 0.4 Baso % (Auto) 0.4 Absolute Neuts (auto) 8.4 H Absolute Lymphs (auto) 0.75 L Nucleated RBC % 0 PT 13.8 INR 1.1 APTT 27.2 Sodium 139 Potassium 3.6 Chloride 108 H Carbon Dioxide 25.0 Anion Gap 6 BUN 15 Creatinine 1.36 H Est GFR (MDRD) Af Amer 65 Est GFR (MDRD) Non-Af 54 L BUN/Creatinine Ratio 11.0 Glucose 125 H Lactic Acid 1.6 Calcium 9.2 Total Bilirubin 0.50 AST 17 ALT 31 Alkaline Phosphatase 85 Total Protein 7.7 Albumin 3.4 Globulin 4.3 H Albumin/Globulin Ratio 0.8 L Urine Color Yellow Urine Clarity Clear Urine pH 6.5 Ur Specific Harrell 1.010 Urine Protein 100 H Urine Glucose (UA) Normal Urine Ketones Negative Urine Occult Blood Negative Urine Nitrite Negative Urine Bilirubin Negative Urine Urobilinogen Normal Ur Leukocyte Esterase Negative Urine RBC 0 SEEN Urine WBC 0 SEEN Ur Squamous Epith Cells 0 SEEN Urine Bacteria 0 SEEN Urine Mucus 0 SEEN Radiography Diagnostic Testing: Clinical Impression(s) from Imaging Studies Brain CT 06/17/23 14:01 IMPRESSION: Chronic involutional changes of the brain. Electronically Signed: Jorge Alberto Cruz MD at 15:09 EDT , Chest X-Ray 06/17/23 14:45 IMPRESSION: Bibasilar infiltrates worse at the right lung base. Follow-up recommended. Electronically Signed: Jorge Alberto Cruz MD at 14:55 EDT , Discharge Plan Triage Chief Complaint: Confusion ED Provider: Harshil Rondon Dx/Rx/DC Orders Clinical Impression: COVID, Confusion Instructions: Coronavirus Disease 2019 (COVID-19): Caring for Yourself or Others, ED Confusion Prescriptions: No Action amlodipine 10 mg tablet 10 mg PO DAILY cinnamon bark 500 mg capsule 500 mg PO DAILY pantoprazole 40 mg tablet,delayed release (DR/EC) 40 mg PO DAILY donepezil 10 mg tablet 10 mg PO QHS nitroglycerin 0.4 mg tablet, sublingual 0.4 mg SUBLINGUAL Q5-15M PRN (Reason: Cardiac/Chest Pain) Rx Instructions: do not exceed 3 doses per episode ascorbate calcium (vitamin C) 500 mg tablet 500 mg PO DAILY alpha lipoic acid 200 mg capsule 200 mg PO DAILY memantine 5 mg tablet 5 mg PO BID Patient Comments: TAKE 1 TABLET BY MOUTH ONCE DAILY FOR A WEEK THEN GO TO TAKING 1 (ONE) TABLET TWICE DAILY BY MOUTH multivitamin 1 TABLET tablet 1 tab PO DAILY metoprolol succinate 50 MG tablet extended release 24 hr 75 mg PO DAILY pravastatin 80 MG tablet 80 mg PO QHS Patient Comments: losartan 100 MG tablet 100 mg PO DAILY Qty: 0 0RF Rx Instructions: Hold if systolic blood pressure less than 110 mmHg aspirin 81 MG tablet,chewable 81 mg PO DAILY@0800 solifenacin 5 MG tablet 5 mg PO DAILY Primary Care Provider: Adama Jon Referrals: Adama Jon MD [Primary Care Provider] - 1 Week if not improving Disposition Disposition: Home, Self Care
[2023-06-17] MEDS: Acetaminophen 325 MG Tablet 650 MG PO (14:10)
[2023-06-17] MEDS: 0.9% Normal Saline (1000mL) 1,000 ML 999 ML IV (14:10)
[2023-06-17 14:19] LABS: Absolute Lymphocyte Count 0.75 X10^3/uL (0.83-4.51); Absolute Neutrophil Count 8.4 X10^3/uL (2.0-7.7); Basophil# 0.04 X10^3/uL; Basophil% 0.4 % (0-1); Eosinophil# 0.04 X10^3/uL; Eosinophils% 0.4 % (0-5); Hematocrit 42.8 % (40-54); Lymphocyte # 0.75 X10^3/ul (0.83-4.51); Lymphocyte % 7.3 % (19-41); Mean Corp Hgb Conc 32.7 g/dL (32-36); Mean Corpuscular Hgb 29.2 pg (27.0-32.0); Mean Corpuscular Volume 89.4 fL (80-94); Mean Platelet Vol. 10.5 fl (6.2-12.0); Monocyte# 1.02 X10^3/uL; Monocyte% 9.9 % (0-10); NRBC Flagged by Analyzer 0 % (0-5); Neutrophil % 81.6 % (47-70); Platelet Count 218 K/mm3 (150-450); RBC Distribution Width CV 13.1 % (11.6-14.6); RBC Distribution Width SD 42.5 fl (35.1-43.9); Red Blood Count 4.79 M/mm3 (4.6-6.2); White Blood Count 10.3 K/mm3 (4.4-11.0)
[2023-06-17 14:30] LABS: International Normalized Ratio 1.1; Partial Thromboplast Time 27.2 Seconds (24.1-36.2); Prothrombin Time (Protime)PT. 13.8 SECONDS (11.7-14.9)
[2023-06-17 14:36] LABS: ALB/GLOB Ratio 0.8 RATIO (0.9-2.4); AST(SGOT) 17 U/L (15-37); Alanine Aminotransfer ALT/SGPT 31 U/L (16-61); Albumin, Serum 3.4 g/dL (3.2-5.0); Alkaline Phosphatase 85 U/L (45-117); Anion Gap 6 (5-15); BUN 15 mg/dL (7-18); Calcium,Total 9.2 mg/dL (8.5-10.1); Chloride 108 mmol/L (98-107); Creatinine, Serum 1.36 mg/dL (0.70-1.30); EST Glomerular Filtration Rate 54 mL/min (>60); Est Glom Filt Rate - Afr Amer 65 mL/min (>60); Globulin 4.3 g/dL (2.2-4.2); Glucose 125 mg/dL (74-106); Potassium 3.6 mmol/L (3.5-5.1); Protein, Total 7.7 g/dL (6.4-8.2); Sodium Level 139 mmol/L (136-145)
[2023-06-17 14:36] LABS: Lactic Acid 1.6 mmol/L (0.4-1.9)
[2023-06-17 14:40] VITALS: BP 141/74; PULSE 78; RESP 19; TEMP 38.3; O2SAT 97
[2023-06-17 14:40] LABS: Bacteria 0 SEEN /hpf (None Seen); Mucous, Urine 0 SEEN /hpf (<or=2+); Red Blood Cells-Urine 0 SEEN /hpf (0-5); Squamous Epithelial Cells - UA 0 SEEN /hpf (0-5); White Blood Cells 0 SEEN /hpf (0-5)
[2023-06-17 14:42] LABS: Color, Urine Yellow (Yellow); Glucose, Dipstick Normal (Normal); Ketone-Dipstick Negative (Negative); Leukocyte Esterase-Dipstick Negative /ul (Negative); Nitrite-Dipstick Negative (Negative); Occult Blood-Urine Negative /ul (Negative); Protein-Dipstick 100 mg/dl (Negative); Urine Bilirubin Dipstick Negative (Negative); Urine Clarity Clear (Clear); Urine Urobilinogen Normal (Normal); Urine pH 6.5 (5.0 - 8.0)
--- NOTE | 2023-06-17 14:45 | RAD_ITS ---
STUDY: X-RAY CHEST REASON FOR EXAM: Male, 78 years old. Cough, fever TECHNIQUE: Single AP portable view of the chest. COMPARISON: Comparison is made with prior study of July 24, 2022. FINDINGS: EKG electrodes are seen. Bibasilar pulmonary infiltrates worse at the right lung base. Follow-up is recommended. There is blunting of left costophrenic angle. Normal size heart. Normal mediastinum and timothy. Normal visualized pulmonary arteries. There is atherosclerotic tortuosity of the aortic arch and descending thoracic aorta. There are diffuse degenerative changes of the visualized thoracic spine. Normal visualized ribs, clavicles, and shoulders. There is no demonstrated abnormality of the visualized soft tissue structures of the upper abdomen. RAD/Chest 1 View (Portable) IMPRESSION: Bibasilar infiltrates worse at the right lung base. Follow-up recommended. Electronically Signed: Jorge Alberto Cruz MD at 14:55 EDT ,
[2023-06-17 15:40] VITALS: BP 138/79; PULSE 71; RESP 18; TEMP 37.9; O2SAT 97
[2023-06-17 15:51] VITALS: BP 148/76; PULSE 73; RESP 19; O2SAT 97
== END 2023-06-17 15:52 | disposition home or self-care (01) ==
PROVIDERS: Emergency Provider Emergency Medicine; PCP Family Medicine; Visit Provider Emergency Medicine
DX: U07.1 COVID-19 (principal); F03.90 Unspecified dementia, unspecified severity, without behavioral disturbance, psychotic disturbance, mood disturbance, and anxiety; Z87.891 Personal history of nicotine dependence; I25.10 Atherosclerotic heart disease of native coronary artery without angina pectoris; E78.5 Hyperlipidemia, unspecified; R41.0 Disorientation, unspecified; I10 Essential (primary) hypertension; Z86.73 Personal history of transient ischemic attack (TIA), and cerebral infarction without residual deficits; Z95.5 Presence of coronary angioplasty implant and graft; Z79.01 Long term (current) use of anticoagulants
CPT/HCPCS: 70450; 71045; 80053; 81001; 83605; 85025; 85610; 85730; 87040; 87086; 87428; 93005; 96360; 96361; 99285; J7030

== ENCOUNTER → 2023-06-27 | Outpatient (CLI) | payer MEDICARE, OTHER, SELFPAY ==
--- NOTE | 2023-06-27 08:50 | MRI_ITS ---
EXAM: MR HEAD WITHOUT INTRAVENOUS CONTRAST CLINICAL INDICATION: ALTERED STATE OF AWARENESS, best possible unable to hold still TECHNIQUE: Multiplanar and multisequence MR images of the brain were obtained without intravenous contrast. COMPARISON: CT head, 06/17/2023 FINDINGS: BRAIN AND EXTRA-AXIAL SPACES: There is no restricted diffusion to indicate recent infarct or other pathology. There is no intracranial mass, mass effect, or shift of midline structures. Chronic lacunar infarct within the left cerebellum and small chronic appearing lacunar infarcts in and around bilateral basal ganglia and shipley radiata. Periventricular T2 and T2 FLAIR hyperintensity is nonspecific although most commonly due to chronic microvascular ischemic changes in a patient of this age. Ex vacuo enlargement of the supratentorial ventricles. No hydrocephalus. No pathologic extra-axial fluid or acute intracranial hemorrhage. Basal cisterns are patent. SELLA: No significant abnormality. Normal sella turcica, pituitary gland, infundibular stalk, optic chiasm and hypothalamus. AUDITORY SYSTEM: No significant abnormality. The internal auditory canals are patent. BONES/JOINTS: No significant abnormality. No discrete lytic or blastic abnormalities. SINUSES: Normal as visualized. Clear. MASTOID AIR CELLS: Normal as visualized. Clear. ORBITS: Normal as visualized. Both globes, extraocular muscles, optic nerves and retrobulbar fat appear unremarkable. VASCULATURE: Normal as visualized. Normal flow voids in the major intracranial circulation. MRI/Brain without Contrast IMPRESSION: Chronic ischemic changes. No acute intracranial pathology. Electronically Signed: Damian Simms DO at 22:07 EDT ,
== END | disposition home or self-care (01) ==
LOC: MRI 10:42
PROVIDERS: PCP Family Medicine; Referring Provider Family Medicine; Visit Provider Family Medicine
DX: R32 Unspecified urinary incontinence (principal); R41.82 Altered mental status, unspecified; Z86.73 Personal history of transient ischemic attack (TIA), and cerebral infarction without residual deficits; G45.8 Other transient cerebral ischemic attacks and related syndromes
CPT/HCPCS: 70551

== ENCOUNTER 2023-09-26 10:58 | Emergency (ER) | payer MEDICARE, OTHER, SELFPAY ==
[2023-09-26 10:59] VITALS: BP 153/77; PULSE 55; RESP 15; TEMP 36.3; O2SAT 97; BMI 32.5
[2023-09-26 11:03] VITALS: BP 153/77; PULSE 57; RESP 12; TEMP 36.3; O2SAT 98
--- NOTE | 2023-09-26 11:16 | CT_ITS ---
HISTORY: ALOC. TECHNIQUE: Multiple axial images were obtained of the head without intravenous contrast. A radiation dose optimization technique was used for this scan. 249 images. COMPARISON: 06/17/2023. FINDINGS: BRAIN PARENCHYMA: Multiple foci and zones of low attenuation in the bilateral cerebral white matter compatible with chronic small vessel ischemic gliosis. No acute intra-axial hemorrhage identified. CSF SPACES: Generalized volume loss. No midline shift or other significant mass effect. No acute extra-axial hemorrhage seen. OTHER: Intact calvarium. No significant air fluid levels in the paranasal sinuses or mastoid air cells. Unremarkable orbits. CT/Brain/Head without Contrast IMPRESSION: No acute intracranial process identified. Moderate chronic involutional and white matter changes. Electronically Signed: Renetta Stubbs MD at 12:30 EST ,
--- NOTE | 2023-09-26 11:16 | EKG12_ITS ---
Test Reason : ALT loc Blood Pressure : / mmHG Vent. Rate : 054 BPM Atrial Rate : 054 BPM P-R Int : 212 ms QRS Dur : 080 ms QT Int : 444 ms P-R-T Axes : 029 045 056 degrees QTc Int : 421 ms Sinus bradycardia with 1st degree A-V block Otherwise normal ECG Confirmed by PEARL LANTIGUA, AUSTIN ([id number]), video news editor BERLIN CROSS ([id number]) on 10/06/2023 8:49:47 AM Referred By: Confirmed By:AUSTIN KANG MD
--- NOTE | 2023-09-26 11:18 | EDS_ITS ---
HPI History of Present Illness Chief Complaint: Alt LOC Informant: patient and spouse/S.O. Onset/Context/Timing Onset: Today Current Severity: Mild Maximum Severity: Moderate Narrative Narrative: 78-year-old male history of dementia, VA with cardiac stent, CVA. Today had not altered level of consciousness at home. said he just felt very weak and he had trouble getting out of bed. And he kept stating he just felt sick. She said he was commenting on people that have been in and out of the room last night she said there was no one there. He has had recent falls but no head injury. Yesterday fell bringing in the trash. He has had no nausea, vomiting or diarrhea. No fever or chills. No dysuria. No headache. Prior similar symptoms: No Recent Illness/Hospitalization: No PFSH PFSH Medical History Abdominal aortic aneurysm (AAA) Abnormal nuclear stress test Actinic keratoses Anemia Atherosclerotic heart disease of [place] coronary artery without angina pectoris Dementia Essential (primary) hypertension GERD (gastroesophageal reflux disease) HLD (hyperlipidemia) Ischemic cerebrovascular accident (CVA) (02/10/18) OAB (overactive bladder) Obesity Obstructive sleep apnea Old inferior wall myocardial infarction Prostate cancer Rosacea Home Medications multivitamin 1 tab PO DAILY vitamin 10/04/13 [History Last Taken 02/09/18] metoprolol succinate 50 mg tablet,extended release 24 hr 75 mg PO DAILY bp 02/10/18 [History Last Taken 10/15/20] pravastatin 80 mg tablet 80 mg PO QHS cholesterol 02/10/18 [History Last Taken 02/09/18] losartan 100 mg tablet 100 mg PO DAILY bp ##0 02/12/18 [Rx Last Taken 10/15/20] aspirin 81 mg chewable tablet 81 mg PO DAILY@0800 03/03/20 [History Last Taken 10/15/20] solifenacin 5 mg tablet 5 mg PO DAILY 08/17/20 [History Last Taken Unknown] amlodipine 10 mg tablet 10 mg PO DAILY 09/11/20 [History Last Taken 10/15/20] cinnamon bark 500 mg capsule 500 mg PO DAILY 09/11/20 [History Last Taken Unknown] donepezil 10 mg tablet 10 mg PO QHS 09/11/20 [History Last Taken Unknown] nitroglycerin 0.4 mg sublingual tablet 0.4 mg sublingual Q5-15M PRN Cardiac/Chest Pain 09/11/20 [History Last Taken Unknown] pantoprazole 40 mg tablet,delayed release 40 mg PO DAILY 09/11/20 [History Last Taken Unknown] alpha lipoic acid 200 mg capsule 200 mg PO DAILY 09/12/21 [History Last Taken Unknown] ascorbate calcium (vitamin C) 500 mg tablet 500 mg PO DAILY 09/12/21 [History Last Taken Unknown] memantine 5 mg tablet 5 mg PO BID 02/03/23 [History Last Taken Unknown] Allergy/AdvReac Type Severity Reaction Status Date / Time atorvastatin [From Lipitor] Allergy PT UNSURE Verified 09/26/23 10:59 OF REACTION azithromycin [From Zithromax] Allergy Itching Verified 09/26/23 10:59 Beta-Blockers Allergy NEEDS Verified 09/26/23 10:59 (Beta-Adrenergic Bloc FOLLOW-UP sildenafil [From Viagra] Allergy PT UNSURE Verified 09/26/23 10:59 OF REACTION Lgbgxlr-[id number]-EyY Reductase Allergy Other Verified 09/26/23 10:59 Inhibitor [Qcfwkbe-Wvi-Ywk Reductase Inhibitor] ezetimibe [From Zetia] AdvReac PT UNSURE Verified 09/26/23 10:59 OF REACTION Family History Sister CAD (coronary artery disease) Mother CAD (coronary artery disease) Father Colon cancer Brother CAD (coronary artery disease) Surgical History History of coronary artery stent placement (10/07/13) History of herniorrhaphy History of left heart catheterization (10/15/20) Social History Smoking Status: Former smoker quit date: 10/05/78 pack-years: 62 alcohol intake: never substance use type: does not use caffeine: Yes Type: coffee Number of servings: 3 ROS ROS ED ROS Narrative Generalized weakness. Review of Systems ROS Unobtainable: Denies due to encephalopathy Constitutional Constitutional ED: Denies chills or fever(s) Eyes Eyes: Denies blurry vision ENT ENT ED: Denies ear pain, rhinorrhea or sore throat Cardiovascular Cardiovascular: Denies chest pain or palpitations Respiratory/Chest Respiratory/Chest: Denies cough or dyspnea Gastrointestinal Gastrointestinal: Denies abdominal pain, constipation, diarrhea, melena, nausea or vomiting Genitourinary Genitourinary ED: Denies dysuria or hematuria Musculoskeletal Musculoskeletal: Denies arthralgias Integumentary Denies abscess Neurologic Neurologic: Denies headache(s) Psychiatric Psychiatric: Denies anxiety Endocrine Endocrinology: Denies cold intolerance Hematologic/Lymphatic Hematologic/Lymphatic: Reports none Allergic/Immunologic Allergic/Immunologic ED: Denies mouth swelling, tongue swelling or urticaria EXAM Physical Exam Narrative Exam Narrative: Well-appearing 78-year-old male. Vital signs are stable and afebrile. Pulse ox is 97% on room air no signs of hypoxia. He is bradycardic in the 50s but his blood pressure is 153/77. He does not look septic or toxic. He is in no distress. at bedside. HEENT exam unremarkable atraumatic. Nontender. Neck nontender. Lungs clear to auscultation. Heart bradycardic rate about 57 no murmur. Chest wall and ribs nontender. Abdomen soft nontender. Moving all 4 extremities. He has a mild abrasion on his palm of his right hand from falling yesterday. Reportedly also on his left knee but I am unable to get his pants up high enough to evaluate the abrasion on the left knee. Normal manager club strength. No deformity or tenderness to the arms. Normal dorsi plantarflexion. No shortening or rotation of either lower extremity. Neurologically is awake. When given a choice he picked the month of September 3 months. He knew he was in the hospital. He knows [place] is coming. He is answering questions and following commands. Const Vital Signs: 09/26/23 10:59 09/26/23 11:03 Temperature 97.3 F L 97.3 F L Temperature Source Temporal Temporal Pulse Rate 55 L 57 L Respiratory Rate 15 12 Blood Pressure 153/77 H 153/77 H Blood Pressure Mean 102 102 Pulse Ox 97 98 Oxygen Delivery Method Room Air Room Air Positive well nourished and well developed; Negative for cachectic, contractures or unkempt General Appearance ED: well developed and NAD; Negative for unkempt, cachectic, contractures, cyanotic, diaphoretic or pallor Nutritional Appearance: Negative for cachectic HEENT Reports moist mucous membranes Negative for trauma or tenderness Eyes PERRL and EOMs intact bilaterally General Eye ED: Negative for pale conjunctiva or scleral icterus Neck no lymphadenopathy, supple and no JVD General: Negative for tenderness Lymph Lymphatic: Negative for other Chest Wall inspection of chest normal and palpation of chest normal Chest: Negative for other Resp normal respiratory effort and clear to auscultation bilaterally Effort and Inspection: Negative for retractions Auscultation: Negative for rales, rhonchi or wheezes Cardio regular rhythm, S1 normal heart sound, S2 normal heart sound and no murmurs; Negative for regular rate Rate: bradycardia GI normal to inspection, nondistended, normoactive bowel sounds, non-tender, non- distended and no masses Inspection: Negative for abdominal distention Auscultation: normoactive bowel sounds Palpation: soft; Negative for tender or guarding Back/Spine no CVA tenderness General Back: Negative for CVA tenderness Cervical Spine: Negative for cervical spine tenderness Thoracic Spine / Upper Back: Negative for thoracic spinal tenderness or paraspinal muscle tenderness Lumbar Spine / Lower Back: Negative for lumbar spinal tenderness Extremity normal to inspection Extremity Narrative: Small left hand abrasion. General Extremety ED: Negative for edema or tenderness General Extremity: Negative for edema Neuro oriented x3 and CN's II-XII intact bilaterally Neuro Narrative: Patient know he is in the hospital. He knows the month. He knows the upcoming holiday. Sensorium / Orientation: alert; Negative for orientation impaired, lethargic or stuporous Motor Exam: general weakness; Negative for strength 5/5 throughout Psych mental status grossly normal Appearance: Negative for unkempt Attitude: No agitated Mood & Affect: Negative for depressed, anxious or tearful Skin no rashes or lesions noted and no wounds General Skin Exam: Negative for jaundice or pallor Lesions: No lesion noted Rashes: No rashes noted Trauma: abrasion Wounds: Negative for wounds noted MDM MDM MDM Narrative Medical decision making narrative: 78-year-old male with generalized weakness and today was unable to get himself out of bed. No recent illness. He does have falls and dementia. Screening labs and a CAT scan of his brain will be obtained. Repeat exam patient is doing well in the room at 12:15 PM. He is awake alert his eyes are open. He is talking. agrees that he looks much better and if he looks like this she had never brought him in. When I try to get the patient a snack or breakfast to eat and ambulate him if he is doing well he will most likely be discharged home. I am awaiting for the radiologist read on the cat can. Patient ambulated well. He will be discharged home. Family is comfortable with the plan. History & Record Review Discussion w/independent historian: Patient Additional record(s) reviewed:: Prior inpatient record, Prior outpatient record, Prior ED visit and Prior labs Lab Data Attestation: I reviewed the patient's lab results. Lab results narrative: CBC shows a white count 8. H&H 14 and 43. Platelets 197. CMP shows gap of 1. Normal BUN 14. Creatinine 1.2. Liver enzymes normal. UA is negative. No white or red cells. No nitrates nor bacteria. COVID and flu tests are both negative. Chest x-ray chronic changes. Shoulder x-ray negative. CAT scan of the brain no acute process. Labs: Laboratory Results - last 24 hr 09/26/23 09/26/23 11:10 11:40 WBC 8.1 RBC 4.91 Hgb 14.4 Hct 43.9 MCV 89.4 MCH 29.3 MCHC 32.8 RDW Std Deviation 44.2 H RDW Coeff of Sami 13.6 Plt Count 197 MPV 10.2 Immature Gran % (Auto) 0.200 Neut % (Auto) 58.8 Lymph % (Auto) 26.0 [place] % (Auto) 10.4 H Eos % (Auto) 4.0 Baso % (Auto) 0.6 Absolute Neuts (auto) 4.7 Absolute Lymphs (auto) 2.10 Nucleated RBC % 0 Sodium 141 Potassium 4.2 Chloride 110 H Carbon Dioxide 30.0 Anion Gap 1 L BUN 14 Creatinine 1.24 Estim Creat Clear Calc 45.97 Est GFR (MDRD) Af Amer 72 Est GFR (MDRD) Non-Af 60 BUN/Creatinine Ratio 11.3 Glucose 95 Calcium 9.5 Total Bilirubin 0.50 AST 22 ALT 33 Alkaline Phosphatase 88 Total Protein 7.6 Albumin 3.4 Globulin 4.2 Albumin/Globulin Ratio 0.8 L Urine Color Yellow Urine Clarity Clear Urine pH 7.0 Ur Specific [place] 1.005 Urine Protein Negative Urine Glucose (UA) Normal Urine Ketones Negative Urine Occult Blood Negative Urine Nitrite Negative Urine Bilirubin Negative Urine Urobilinogen Normal Ur Leukocyte Esterase Negative Urine RBC 0 SEEN Urine WBC 0 SEEN Ur Squamous Epith Cells 0 SEEN Urine Bacteria 0 SEEN Urine Mucus 0 SEEN Radiography Chest X-Ray - ED: 1 View, Read by ED Physician, Heart, Lungs, Mediastinum, Bony Structures, No Acute Disease and Chronic Changes Diagnostic Testing: Clinical Impression(s) from Imaging Studies Brain CT 09/26/23 11:16 IMPRESSION: No acute intracranial process identified. Moderate chronic involutional and white matter changes. Electronically Signed: Renetta Stubbs MD at 12:30 EST Reading Location ID and State: [facility] / [place] Tel , Service support , Chest x-ray, portable, single view interpreted by myself shows no acute abnormality. Normal cardiac silhouette. Normal lung christine. Chronic changes. Left shoulder x-ray, 3 views, interpreted by myself shows no acute abnormality. No fracture or dislocation of the shoulder. Chronic changes. Rhythm Strip Rhythm Strip: Sinus bradycardia Rate: 54 Ectopy: None EKG Initial EKG: Attestation: I personally reviewed and interpreted this EKG as follows: Interpretation: Sinus Bradycardia Comments: Sinus bradycardia rate of 54 no acute signs of VA or ischemia. First-degree AV block with [place] interval of 212. Discharge Plan Triage Chief Complaint: Alt LOC ED Provider: Abelardo Lowe Dx/Rx/DC Orders Prescriptions: No Action amlodipine 10 mg tablet 10 mg PO DAILY cinnamon bark 500 mg capsule 500 mg PO DAILY pantoprazole 40 mg tablet,delayed release (DR/EC) 40 mg PO DAILY donepezil 10 mg tablet 10 mg PO QHS nitroglycerin 0.4 mg tablet, sublingual 0.4 mg SUBLINGUAL Q5-15M PRN (Reason: Cardiac/Chest Pain) Rx Instructions: do not exceed 3 doses per episode ascorbate calcium (vitamin C) 500 mg tablet 500 mg PO DAILY alpha lipoic acid 200 mg capsule 200 mg PO DAILY memantine 5 mg tablet 5 mg PO BID Patient Comments: TAKE 1 TABLET BY MOUTH ONCE DAILY FOR A WEEK THEN GO TO TAKING 1 (ONE) TABLET TWICE DAILY BY MOUTH multivitamin 1 TABLET tablet 1 tab PO DAILY metoprolol succinate 50 MG tablet extended release 24 hr 75 mg PO DAILY pravastatin 80 MG tablet 80 mg PO QHS Patient Comments: losartan 100 MG tablet 100 mg PO DAILY Qty: 0 0RF Rx Instructions: Hold if systolic blood pressure less than 110 mmHg aspirin 81 MG tablet,chewable 81 mg PO DAILY@0800 solifenacin 5 MG tablet 5 mg PO DAILY Primary Care Provider: Adama Jon Referrals: Adama Jon MD [Primary Care Provider] -
[2023-09-26 11:27] LABS: Absolute Neutrophil Count 4.7 X10^3/uL (2.0-7.7); Basophil# 0.05 X10^3/uL; Basophil% 0.6 % (0-1); Eosinophil# 0.32 X10^3/uL; Hematocrit 43.9 % (40-54); Hemoglobin 14.4 g/dL (13.0-16.5); Mean Corp Hgb Conc 32.8 g/dL (32-36); Mean Corpuscular Hgb 29.3 pg (27.0-32.0); Mean Corpuscular Volume 89.4 fL (80-94); Mean Platelet Vol. 10.2 fl (6.2-12.0); Monocyte# 0.84 X10^3/uL; Monocyte% 10.4 % (0-10); NRBC Flagged by Analyzer 0 % (0-5); Neutrophil # 4.74 X10^3/uL (2.7-7.7); Neutrophil % 58.8 % (47-70); Platelet Count 197 K/mm3 (150-450); RBC Distribution Width CV 13.6 % (11.6-14.6); RBC Distribution Width SD 44.2 fl (35.1-43.9); Red Blood Count 4.91 M/mm3 (4.6-6.2); White Blood Count 8.1 K/mm3 (4.4-11.0)
[2023-09-26 11:39] LABS: ALB/GLOB Ratio 0.8 RATIO (0.9-2.4); AST(SGOT) 22 U/L (15-37); Alanine Aminotransfer ALT/SGPT 33 U/L (16-61); Albumin, Serum 3.4 g/dL (3.2-5.0); Alkaline Phosphatase 88 U/L (45-117); Anion Gap 1 (5-15); BUN 14 mg/dL (7-18); BUN/Creat Ratio 11.3 RATIO (10-20); Calcium,Total 9.5 mg/dL (8.5-10.1); Chloride 110 mmol/L (98-107); Creatinine, Serum 1.24 mg/dL (0.70-1.30); EST Glomerular Filtration Rate 60 mL/min (>60); Est Glom Filt Rate - Afr Amer 72 mL/min (>60); Estimated Creatinine Clearance 45.97 ml/min; Globulin 4.2 g/dL (2.2-4.2); Glucose 95 mg/dL (74-106); Potassium 4.2 mmol/L (3.5-5.1); Protein, Total 7.6 g/dL (6.4-8.2); Sodium Level 141 mmol/L (136-145)
[2023-09-26] MEDS: 0.9% Normal Saline (500mL Bag) 500 ML 1000 ML IV (11:44)
[2023-09-26 11:47] LABS: Bacteria 0 SEEN /hpf (None Seen); Mucous, Urine 0 SEEN /hpf (<or=2+); Red Blood Cells-Urine 0 SEEN /hpf (0-5); Squamous Epithelial Cells - UA 0 SEEN /hpf (0-5); White Blood Cells 0 SEEN /hpf (0-5)
[2023-09-26 11:50] LABS: Color, Urine Yellow (Yellow); Glucose, Dipstick Normal (Normal); Ketone-Dipstick Negative (Negative); Leukocyte Esterase-Dipstick Negative /ul (Negative); Nitrite-Dipstick Negative (Negative); Occult Blood-Urine Negative /ul (Negative); Protein-Dipstick Negative (Negative); Specific Gravity, Urine 1.005 (1.002-1.030); Urine Bilirubin Dipstick Negative (Negative); Urine Clarity Clear (Clear); Urine Urobilinogen Normal (Normal)
[2023-09-26 11:58] VITALS: RESP 16
[2023-09-26 12:00] VITALS: RESP 18
--- NOTE | 2023-09-26 12:00 | RAD_ITS ---
HISTORY: weakness. TECHNIQUE: XR Chest 1 View. COMPARISON: 06/17/2023. FINDINGS: CARDIOMEDIASTINAL BORDERS: Cardiac silhouette within normal limits in size. Mediastinal contour unremarkable with calcification of the aortic knob. LUNGS: Mild opacities in the upper and lower lobes. PLEURA: Chronic mild bilateral pleural effusions or pleural scarring. Suspect bilateral calcified pleural plaques. OSSEOUS STRUCTURES: Degenerative change. RAD/Chest 1 View (Portable) IMPRESSION: Mild patchy opacities in the upper and lower lobes, possible pneumonia. Mild pleural effusions or pleural scarring with suspicion for calcified pleural plaques. Consider CT. Electronically Signed: Renetta Stubbs MD at 12:39 EST ,
--- NOTE | 2023-09-26 12:00 | RAD_ITS ---
HISTORY: fall. TECHNIQUE: XR Shoulder Min 2 Views. COMPARISON: None. FINDINGS: BONES : No acute fracture identified. Mineralization unremarkable. JOINTS: No dislocation. Mild degenerative change. SOFT TISSUES: Left pleural thickening. RAD/Shoulder min 2 Views IMPRESSION: No acute fracture or dislocation identified in the left shoulder. Electronically Signed: Renetta Stubbs MD at 12:40 EST ,
== END 2023-09-26 13:03 | disposition home or self-care (01) ==
PROVIDERS: Emergency Provider Emergency Medicine; PCP Family Medicine; Visit Provider Emergency Medicine
DX: R55 Syncope and collapse (principal); F03.90 Unspecified dementia, unspecified severity, without behavioral disturbance, psychotic disturbance, mood disturbance, and anxiety; R53.1 Weakness; I10 Essential (primary) hypertension; E78.5 Hyperlipidemia, unspecified; Z87.891 Personal history of nicotine dependence; Z95.5 Presence of coronary angioplasty implant and graft; I25.10 Atherosclerotic heart disease of native coronary artery without angina pectoris
CPT/HCPCS: 70450; 71045; 73030; 80053; 81001; 85025; 87428; 93005; 96360; 99285; J7040; A4216

== ENCOUNTER → 2023-10-22 | Outpatient (CLI) | payer MEDICARE, OTHER, SELFPAY ==
--- NOTE | 2023-10-22 14:13 | CT_ITS ---
EXAM: CT CHEST WITHOUT INTRAVENOUS CONTRAST CLINICAL INDICATION: ABN CXR TECHNIQUE: Helically acquired images were obtained of the chest without intravenous contrast. This CT exam was performed using one or more of the following dose reduction techniques: automated exposure control, adjustment of the mA and/or kV according to patient size, and/or use of iterative reconstruction technique. COMPARISON: No relevant prior studies available. 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 There are emphysematous changes in the upper lobes. No mass. No pneumothorax. There is no focal consolidation or effusion. HEART: Unremarkable. Heart size is normal. No pericardial effusion. No significant coronary artery calcifications. MEDIASTINUM: Unremarkable. No mediastinal or hilar adenopathy. Esophagus is unremarkable. No hiatal hernia. THYROID: Unremarkable. No thyroid lesions. BONES/JOINTS: See above. VASCULATURE: Unremarkable. Thoracic aorta is non-dilated. CT/Chest without Contrast IMPRESSION: Pleural-based calcifications seen within both lungs which may represent asbestos related pleural disease. There are underlying emphysematous changes in the lung apices. There is no acute pulmonary abnormality. Electronically Signed: Osmin Kirby MD at 23:10 EST ,
== END | disposition home or self-care (01) ==
PROVIDERS: PCP Family Medicine; Referring Provider Family Medicine; Visit Provider Family Medicine
DX: R93.89 Abnormal findings on diagnostic imaging of other specified body structures (principal)
CPT/HCPCS: 71250

== ENCOUNTER 2024-06-08 15:17 | Inpatient (IN) | payer MEDICARE, OTHER, SELFPAY ==
[2024-06-08] VITALS (7 sets, daily range): BP systolic 142–168; BP diastolic 69–76; PULSE 70–82; RESP 15–22; TEMP 36.4–37.2; O2SAT 91–98; BMI 33.4; BMI 28.6
--- NOTE | 2024-06-08 15:35 | EDS_ITS ---
HPI History of Present Illness Chief Complaint: Complaint Detail of Chief Complaint: Urinary incontinence Informant: patient and spouse/S.O. Narrative Narrative: Patient presents to the emergency department complaint of urinary incontinence x 2 today. states this is unusual and he has had UTIs in the past and she thinks that may be the problem. Patient has history of dementia and really cannot give much history. He will answer questions yes and no. He denies chest pain. Does describe some lower abdomen discomfort. He said no fever chills or sweats. Has had no vomiting or diarrhea. states that he is just not hims elf. [facility] Medical History Abnormal nuclear stress test Obesity Old inferior wall myocardial infarction OAB (overactive bladder) Obstructive sleep apnea Rosacea Actinic keratoses Anemia Abdominal aortic aneurysm (AAA) Atherosclerotic heart disease of [place] coronary artery without angina pectoris Ischemic cerebrovascular accident (CVA) (02/10/18) Essential (primary) hypertension Dementia GERD (gastroesophageal reflux disease) HLD (hyperlipidemia) Prostate cancer Home Medications ?Medication ?Instructions ?Recorded ?Last Taken ?Type multivitamin 1 tab PO DAILY vitamin 10/04/13 02/09/18 History metoprolol succinate 50 mg 75 mg PO DAILY bp 02/10/18 10/15/20 History tablet,extended release 24 hr pravastatin 80 mg tablet 80 mg PO QHS cholesterol 02/10/18 02/09/18 History losartan 100 mg tablet 100 mg PO DAILY bp ##0 02/12/18 10/15/20 Rx aspirin 81 mg chewable tablet 81 mg PO DAILY@0800 03/03/20 10/15/20 History solifenacin 5 mg tablet 5 mg PO DAILY 08/17/20 Unknown History amlodipine 10 mg tablet 10 mg PO DAILY 09/11/20 10/15/20 History cinnamon bark 500 mg capsule 500 mg PO DAILY 09/11/20 Unknown History donepezil 10 mg tablet 10 mg PO QHS 09/11/20 Unknown History nitroglycerin 0.4 mg sublingual 0.4 mg sublingual Q5-15M PRN 09/11/20 Unknown History tablet Cardiac/Chest Pain pantoprazole 40 mg tablet,delayed 40 mg PO DAILY 09/11/20 Unknown History release alpha lipoic acid 200 mg capsule 200 mg PO DAILY 09/12/21 Unknown History ascorbate calcium (vitamin C) 500 500 mg PO DAILY 09/12/21 Unknown History mg tablet memantine 5 mg tablet 5 mg PO BID 02/03/23 Unknown History cholecalciferol (vitamin D3) 25 25 mcg PO DAILY 04/28/24 Unknown History mcg (1,000 unit) capsule Allergy/AdvReac Type Severity Reaction Status Date / Time atorvastatin (From Lipitor) Allergy PT UNSURE Verified 06/08/24 15:20 OF REACTION azithromycin (From Zithromax) Allergy Itching Verified 06/08/24 15:20 Beta-Blockers Allergy NEEDS Verified 06/08/24 15:20 (Beta-Adrenergic Bloc FOLLOW-UP sildenafil (From Viagra) Allergy PT UNSURE Verified 06/08/24 15:20 OF REACTION Votvlyo-YWI-WnI Reductase Allergy Other Verified 06/08/24 15:20 Inhibitor (Badtqrq-Eja-Hru Reductase Inhibitor) ezetimibe (From Zetia) AdvReac PT UNSURE Verified 06/08/24 15:20 OF REACTION Family History Sister CAD (coronary artery disease) Mother CAD (coronary artery disease) Father Colon cancer Brother CAD (coronary artery disease) Surgical History History of left heart catheterization (10/15/20) History of herniorrhaphy History of coronary artery stent placement (10/07/13) Social History Smoking Status: Former smoker quit date: 10/05/78 pack-years: 62 alcohol intake: never substance use type: does not use caffeine: Yes Type: coffee Number of servings: 3 ROS ROS ED Review of Systems ROS Unobtainable: other Constitutional Constitutional ED: Reports lethargy; Denies chills, fever(s), sweats or weight loss Eyes Eyes: Denies blurry vision, change in vision or diplopia ENT ENT ED: Denies rhinorrhea or sore throat Cardiovascular Cardiovascular: Denies chest pain, orthopnea or racing heartbeat Respiratory/Chest Respiratory/Chest: Reports dyspnea and dyspnea on exertion; Denies cough, orthopnea or sputum Gastrointestinal Gastrointestinal: Reports abdominal pain; Denies diarrhea, nausea or vomiting Genitourinary Genitourinary ED: Reports other Details: Urinary incontinence ; Denies dysuria, hematuria or urinary frequency Musculoskeletal Musculoskeletal: Denies arthralgias, back pain, myalgias or neck pain Integumentary Denies abscess, Abrasions or rash Neurologic Neurologic: Denies headache(s) or weakness Psychiatric Psychiatric: Denies anxiety, depression or suicidal thoughts Endocrine Endocrinology: Denies polydipsia, polyphagia or polyuria Hematologic/Lymphatic Hematologic/Lymphatic: Denies easy bleeding, easy bruising or lymphadenopathy Allergic/Immunologic Allergic/Immunologic ED: Denies mouth swelling, tongue swelling or urticaria EXAM Physical Exam Const Vital Signs: 06/08/24 15:18 06/08/24 15:20 06/08/24 17:17 Temperature 97.6 F L 97.6 F L Temperature Source Temporal Temporal Pulse Rate 76 74 74 Respiratory Rate 16 15 16 Blood Pressure 168/72 H 168/72 H 151/73 H Blood Pressure Mean 104 104 99 Pulse Ox 95 95 94 Oxygen Delivery Method Room Air Room Air Room Air Positive well nourished and well developed General Appearance ED: well developed and NAD HEENT Reports TM's clear and moist mucous membranes normocephalic and atraumatic; Negative for trauma or tenderness Tympanic Membrane ED: Yes TM's clear Eyes PERRL and EOMs intact bilaterally General Eye ED: Negative for pale conjunctiva or scleral icterus Neck no lymphadenopathy, supple and no JVD General: Negative for tenderness Chest Wall inspection of chest normal and palpation of chest normal Chest: Negative for tenderness Resp normal respiratory effort and clear to auscultation bilaterally Effort and Inspection: Negative for respiratory distress or pain with movement Auscultation: Negative for rhonchi, wheezes or diminished lung sounds Cardio regular rate, regular rhythm, S1 normal heart sound, S2 normal heart sound and no murmurs Peripheral Pulses: pulses 2+ throughout GI normal to inspection, nondistended, normoactive bowel sounds, soft to palpation and no masses GI Narrative: Mild distention of the lower abdomen. He had some mild diffuse tenderness. There is no rebound, rigidity, or peritoneal signs. Back/Spine no CVA tenderness and no thoracic nor lumbar tenderness Extremity normal to inspection General Extremety ED: Negative for edema General Extremity: Negative for edema Neuro oriented x3, CN's II-XII intact bilaterally, no sensory deficits noted and gait normal Sensorium / Orientation: awake, alert, oriented to person, oriented to place and oriented to time Motor Exam: strength 5/5 throughout and strength abnormal Psych mental status grossly normal Skin no rashes or lesions noted and no wounds MDM MDM MDM Narrative Medical decision making narrative: Patient with history of dementia. Presents with some increased confusion and incontinence of urine x 2 today. worried about a UTI. IV line established. Bladder scan performed initially and then patient was able to void on his own and postvoid residual was only 17 cc. Urinalysis was negative for infection. CBC with differential white count of 20.9 with hemoglobin of 14 and platelet count of 225. Chemistries unremarkable. BUN 16 creatinine 1.42. Obtain a CT scan of the abdomen pelvis with IV contrast that did not show any a cute abnormality. There was some suspicion for infiltrate in the right lower lobe. I did obtain COVID flu and RSV testing that was negative. Patient also had a chest x-ray that showed a right lower lobe infiltrate. now is tells me that last night he took his CPAP off and he had a hard time breathing and it was labored and he was coughing frequently. This point suspect pneumonia. He had blood cultures ordered and was started on Levaquin 750 mg IV. not comfortable taking him home. Will discuss with hospitalist to evaluate for admission for pneumonia with delirium. Lab Data Attestation: I reviewed the patient's lab results. Labs: Laboratory Results - last 24 hr 06/08/24 15:40 WBC 20.9 H RBC 4.88 Hgb 14.3 Hct 42.9 MCV 87.9 MCH 29.3 MCHC 33.3 RDW Std Deviation 43.8 RDW Coeff of Sami 13.7 Plt Count 225 MPV 10.2 Immature Gran % (Auto) 0.500 Neut % (Auto) 85.6 H Lymph % (Auto) 7.9 L [place] % (Auto) 5.8 Eos % (Auto) 0.0 Baso % (Auto) 0.2 Absolute Neuts (auto) 17.9 H Absolute Lymphs (auto) 1.65 Nucleated RBC % 0 Sodium 141 Potassium 3.6 Chloride 110 H Carbon Dioxide 25.0 Anion Gap 6 BUN 16 Creatinine 1.42 H Estim Creat Clear Calc 46.72 Est GFR (MDRD) Af Amer 62 Est GFR (MDRD) Non-Af 51 L BUN/Creatinine Ratio 11.3 Glucose 148 H Calcium 9.5 Urine Color Yellow Urine Clarity Sl. Cloudy Urine pH 6.0 Ur Specific [place] 1.015 Urine Protein 100 H Urine Glucose (UA) Normal Urine Ketones Negative Urine Occult Blood Negative Urine Nitrite Negative Urine Bilirubin Negative Urine Urobilinogen Normal Ur Leukocyte Esterase Negative Urine RBC 0 SEEN Urine WBC 0-5 SEEN Ur Squamous Epith Cells 0 SEEN Urine Bacteria 0 SEEN Urine Mucus 0 SEEN Radiography Diagnostic Testing: Clinical Impression(s) from Imaging Studies Abdomen/Pelvis CT 06/08/24 16:02 IMPRESSION: 1. No definite acute abnormality in the abdomen or pelvis. 2. Possible atelectasis or infiltrate in the right lung base. Electronically Signed: David Santoyo MD at 16:55 EDT , Chest X-Ray 06/08/24 16:48 IMPRESSION: Probable mild diffuse atelectasis or infiltrate throughout the right lung. Stable bilateral pleural plaques with calcifications. Electronically Signed: David Santoyo MD at 17:31 EDT , 1 view chest x-ray obtained interpreted by myself as right lower lobe infiltrate. Radiology felt there was probable mild diffuse atelectasis or infiltrate throughout the right lung. Stable bilateral pleural plaques with calcifications. Discharge Plan Dx/Rx/DC Orders Clinical Impression: Pneumonia, Dementia, Delirium, Leukocytosis Disposition Disposition: Acute Care [facility]
[2024-06-08 15:45] LABS: Bacteria 0 SEEN /hpf (None Seen); Mucous, Urine 0 SEEN /hpf (<or=2+); Red Blood Cells-Urine 0 SEEN /hpf (0-5); Squamous Epithelial Cells - UA 0 SEEN /hpf (0-5)
[2024-06-08 15:47] LABS: Absolute Lymphocyte Count 1.65 X10^3/uL (0.83-4.51); Absolute Neutrophil Count 17.9 X10^3/uL (2.0-7.7); Basophil# 0.05 X10^3/uL; Basophil% 0.2 % (0-1); Hematocrit 42.9 % (40-54); Hemoglobin 14.3 g/dL (13.0-16.5); Lymphocyte # 1.65 X10^3/ul (0.83-4.51); Lymphocyte % 7.9 % (19-41); Mean Corp Hgb Conc 33.3 g/dL (32-36); Mean Corpuscular Hgb 29.3 pg (27.0-32.0); Mean Corpuscular Volume 87.9 fL (80-94); Mean Platelet Vol. 10.2 fl (6.2-12.0); Monocyte# 1.22 X10^3/uL; Monocyte% 5.8 % (0-10); NRBC Flagged by Analyzer 0 % (0-5); Neutrophil # 17.86 X10^3/uL (2.7-7.7); Neutrophil % 85.6 % (47-70); Platelet Count 225 K/mm3 (150-450); RBC Distribution Width CV 13.7 % (11.6-14.6); RBC Distribution Width SD 43.8 fl (35.1-43.9); Red Blood Count 4.88 M/mm3 (4.6-6.2); White Blood Count 20.9 K/mm3 (4.4-11.0)
[2024-06-08 15:54] LABS: Color, Urine Yellow (Yellow); Glucose, Dipstick Normal (Normal); Ketone-Dipstick Negative (Negative); Leukocyte Esterase-Dipstick Negative /ul (Negative); Nitrite-Dipstick Negative (Negative); Occult Blood-Urine Negative /ul (Negative); Protein-Dipstick 100 mg/dl (Negative); Specific Gravity, Urine 1.015 (1.002-1.030); Urine Bilirubin Dipstick Negative (Negative); Urine Clarity Sl. Cloudy (Clear); Urine Urobilinogen Normal (Normal)
--- NOTE | 2024-06-08 16:02 | CT_ITS ---
EXAM: CT ABDOMEN AND PELVIS WITH INTRAVENOUS CONTRAST CLINICAL INDICATION: abdominal pain TECHNIQUE: Helically acquired images were obtained of the abdomen and pelvis with intravenous contrast. This CT exam was performed using one or more of the following dose reduction techniques: automated exposure control, adjustment of the mA and/or kV according to patient size, and/or use of iterative reconstruction technique. CONTRAST: IV 100mL Isovue-370 RADIATION DOSE: CTDIvol = 20.73 mGy, DLP = 2633.04 mGy-cm COMPARISON: No relevant prior studies available. FINDINGS: LIMITATIONS: Exam is limited by improper positioning of patient''s arms resulting in significant streak artifact. LOWER THORAX: Abnormal appearance of the visualized lung bases. Prominent calcified pleural plaques seen related to the hemidiaphragms. Atelectasis, infiltrate or scarring seen of the right lung base. Pleural thickening in both posterior costophrenic angles. No cardiomegaly. No effusions. ABDOMEN: LIVER: Unremarkable. Homogeneous. No focal mass. GALLBLADDER AND BILE DUCTS: Unremarkable. No calcified gallstones. No gallbladder distention or wall edema. No intra- or extrahepatic biliary ductal dilation. PANCREAS: Unremarkable. No focal cystic or solid mass. SPLEEN: Numerous calcified granulomas. Normal size without focal cystic or solid mass. ADRENALS: Unremarkable. No nodules. KIDNEYS AND URETERS: Unremarkable. Normal renal size and position. No hydronephrosis. STOMACH AND BOWEL: Evaluation of the GI tract is limited by absence of oral contrast. Moderate hiatal hernia. Cannot exclude stomach wall thickening. No dilated loops of bowel or evidence for obstruction. Cannot exclude segmental thickening of the shin of the small or large bowel. Cannot exclude enteritis or colitis. Moderate diffuse fecal retention. Appendix within normal limits. PELVIS: APPENDIX: No evidence of acute appendicitis. BLADDER: Unremarkable. REPRODUCTIVE: Unremarkable as visualized. No mass. ABDOMEN and PELVIS: INTRAPERITONEAL SPACE: Unremarkable. No ascites or other fluid collection. No free air. BONES/JOINTS: Degenerative changes throughout the bones. SOFT TISSUES: Unremarkable. No discrete abdominal or pelvic wall hernia. VASCULATURE: Calcified plaque of the aorta and iliac arteries. No aneurysm. LYMPH NODES: Unremarkable. No enlarged lymph nodes. CT/Abdomen/Pelvis W IV Cont ONLY IMPRESSION: 1. No definite acute abnormality in the abdomen or pelvis. 2. Possible atelectasis or infiltrate in the right lung base. Electronically Signed: David Santoyo MD at 16:55 EDT ,
[2024-06-08 16:03] LABS: White Blood Cells 0-5 SEEN /hpf (0-5)
[2024-06-08 16:04] LABS: Anion Gap 6 (5-15); BUN 16 mg/dL (7-18); BUN/Creat Ratio 11.3 RATIO (10-20); Calcium,Total 9.5 mg/dL (8.5-10.1); Chloride 110 mmol/L (98-107); Creatinine, Serum 1.42 mg/dL (0.70-1.30); EST Glomerular Filtration Rate 51 mL/min (>60); Est Glom Filt Rate - Afr Amer 62 mL/min (>60); Estimated Creatinine Clearance 46.72 ml/min; Glucose 148 mg/dL (74-106); Potassium 3.6 mmol/L (3.5-5.1); Sodium Level 141 mmol/L (136-145)
--- NOTE | 2024-06-08 16:48 | RAD_ITS ---
STUDY: X-RAY CHEST REASON FOR EXAM: Male, 79 years old. confusion TECHNIQUE: Single AP portable view of the chest. COMPARISON: 09/26/2023 FINDINGS: There is hyperinflation of the lungs consistent with chronic obstructive lung disease (COPD). Diffuse increased density of the right lung, some of which represents pleural plaques with calcifications, but there may also be right lung atelectasis or infiltrate. Left lung is clear. No gross effusions. Normal size heart. Normal mediastinum and timothy. Normal visualized pulmonary arteries. There is atherosclerotic tortuosity of the aortic arch and descending thoracic aorta. There are diffuse degenerative changes of the visualized thoracic spine. Normal visualized ribs, clavicles, and shoulders. There is no demonstrated abnormality of the visualized soft tissue structures of the upper abdomen. RAD/Chest 1 View (Portable) IMPRESSION: Probable mild diffuse atelectasis or infiltrate throughout the right lung. Stable bilateral pleural plaques with calcifications. Electronically Signed: David Santoyo MD at 17:31 EDT ,
[2024-06-08] MEDS: levoFLOXacin IV 750 MG/150 ML BAG 100 MG IV (18:32)
--- NOTE | 2024-06-08 18:46 | PCM.HP.STD ---
HPI - General General Date of Admission: 06/08/24 Date of Service: 06/08/24 Chief Complaint: frequency of urination, incontinence of urine HPI Narrative NARA DIAZ, is a 79 M with a PMH as outlined who presents via the ED on 06/08/2024 with a complaint of incontinence of urine. History was mainly gotten from as patient has dementia. said he had two episodes of incontinence overnight, so she was concerned about an infection and brought him to the ED. She said he had not had any fever, but had had chills, and on furhter enquiry, she said he had had some shortness of breath the night before, though he was not coughing. He had no chest pain, nausea, vomiting or any other symptoms. Review of systems is otherwise negative. Vitals in the ED were BP of 155/70, [place] of 82, RR of 16 and temp of 99F. He was saturating at 98% on room air. CBC showed Hb of 14.3, wbc of 20.9 and platelets of 225. Chemistry showed sodium of 141, potassium of 3.6 and bicarb of 25. Cr of 1.42. Urinalysis showed no evidence of UTI. Respiratory panel was negative for covid, influenza or RSV. CT of the abdomen and pelvis showed no acute abnormality in the abdomen or pelbis and showed possible atelectasis or iinfiltrate in the right lung base. He is being admitted to be managed for community acquired pneumonia. [facility] Medical History Abnormal nuclear stress test Obesity Old inferior wall myocardial infarction OAB (overactive bladder) Obstructive sleep apnea Rosacea Actinic keratoses Anemia Abdominal aortic aneurysm (AAA) Atherosclerotic heart disease of [place] coronary artery without angina pectoris Ischemic cerebrovascular accident (CVA) (02/10/18) Essential (primary) hypertension Dementia GERD (gastroesophageal reflux disease) HLD (hyperlipidemia) Prostate cancer Home Medications ?Medication ?Instructions ?Recorded ?Last Taken ?Type multivitamin 1 tab PO DAILY vitamin 10/04/13 02/09/18 History metoprolol succinate 50 mg 75 mg PO DAILY bp 02/10/18 10/15/20 History tablet,extended release 24 hr pravastatin 80 mg tablet 80 mg PO QHS cholesterol 02/10/18 02/09/18 History losartan 100 mg tablet 100 mg PO DAILY bp ##0 02/12/18 10/15/20 Rx solifenacin 5 mg tablet 5 mg PO DAILY overactive bladder 08/17/20 Unknown History amlodipine 10 mg tablet 10 mg PO DAILY 09/11/20 10/15/20 History cinnamon bark 500 mg capsule 500 mg PO DAILY 09/11/20 Unknown History donepezil 10 mg tablet 10 mg PO QHS memory 09/11/20 Unknown History nitroglycerin 0.4 mg sublingual 0.4 mg sublingual Q5-15M PRN 09/11/20 Unknown History tablet Cardiac/Chest Pain pantoprazole 40 mg tablet,delayed 40 mg PO DAILY 09/11/20 Unknown History release alpha lipoic acid 200 mg capsule 200 mg PO DAILY 09/12/21 Unknown History ascorbate calcium (vitamin C) 500 500 mg PO DAILY 09/12/21 Unknown History mg tablet cholecalciferol (vitamin D3) 25 25 mcg PO DAILY 04/28/24 Unknown History mcg (1,000 unit) capsule aspirin 81 mg tablet,delayed 81 mg PO DAILY 06/08/24 Unknown History release memantine 10 mg tablet 10 mg PO BID memory 06/08/24 Unknown History Allergy/AdvReac Type Severity Reaction Status Date / Time atorvastatin (From Lipitor) Allergy PT UNSURE Verified 06/08/24 15:20 OF REACTION azithromycin (From Zithromax) Allergy Itching Verified 06/08/24 15:20 Beta-Blockers Allergy NEEDS Verified 06/08/24 15:20 (Beta-Adrenergic Bloc FOLLOW-UP sildenafil (From Viagra) Allergy PT UNSURE Verified 06/08/24 15:20 OF REACTION Edjtjhd-WQE-BnW Reductase Allergy Other Verified 06/08/24 15:20 Inhibitor ([place]-Zli-Con Reductase Inhibitor) ezetimibe (From Zetia) AdvReac PT UNSURE Verified 06/08/24 15:20 OF REACTION Family History Sister CAD (coronary artery disease) Mother CAD (coronary artery disease) Father Colon cancer Brother CAD (coronary artery disease) Surgical History History of left heart catheterization (10/15/20) History of herniorrhaphy History of coronary artery stent placement (10/07/13) Social History Smoking Status: Former smoker quit date: 10/05/78 pack-years: 62 alcohol intake: never substance use type: does not use caffeine: Yes Type: coffee Number of servings: 3 ROS ROS Narrative ROS obtained from due to patient's dementia Constitutional Constitutional: Reports chills, fatigue, malaise and weakness; Denies anorexia or fever(s) Eyes Eyes: Denies change in vision ENT HEENT: Denies dysphagia, headache(s), nasal congestion, nasal discharge or sore throat Cardiovascular Cardiovascular: Denies chest pain, dyspnea on exertion, edema, lightheadedness, orthopnea, palpitations, paroxysmal nocturnal dyspnea, rapid heart rate or syncope Respiratory/Chest Respiratory/Chest: Reports dyspnea and shortness of breath with exertion; Denies cough, excessive phlegm production, hemoptysis, productive cough, shortness of breath at rest or wheezing Gastrointestinal Gastrointestinal: Denies abdominal pain, constipation, diarrhea, nausea or vomiting Genitourinary Genitourinary: Reports urinary incontinence; Denies burning urination, dysuria, hematuria, nocturia, urinary frequency, urinary hesitancy or urinary urgency Musculoskeletal Musculoskeletal: Denies arthralgias, joint pain or joint swelling Neurologic Neurologic: Denies confusion, dizziness, focal weakness, headache(s), numbness or syncope Psychiatric Psychiatric: Denies anxiety or depression Endocrine Endocrinology: Denies change in body appearance Vital Signs Vital Signs Vital Signs: 06/08/24 15:18 06/08/24 15:20 06/08/24 17:17 Temperature 97.6 F L 97.6 F L Temperature Source Temporal Temporal Pulse Rate 76 74 74 Respiratory Rate 16 15 16 Blood Pressure 168/72 H 168/72 H 151/73 H Blood Pressure Mean 104 104 99 Pulse Ox 95 95 94 Oxygen Delivery Method Room Air Room Air Room Air 06/08/24 18:18 Temperature 99 F Temperature Source Pulse Rate 82 Respiratory Rate 16 Blood Pressure 155/70 H Blood Pressure Mean 98 Pulse Ox 98 Oxygen Delivery Method Weight Weight: 220 lb Body Mass Index (BMI) 33.4 Physical Exam Const alert, no apparent distress and average body habitus Constitutional Narrative: confused due to dementia Orientation / Consciousness: confused HEENT normocephalic, head/scalp atraumatic, moist oral mucous membranes and oropharynx normal Mouth: oral and palatal mucosa normal Eyes PERRL, EOMs intact bilaterally and conjunctivae normal Neck no lymphadenopathy, supple and no JVD Resp Resp Narrative: mildly diminished breath sounds bibasally, no wheezes or crackles. On room air. Cardio regular rate, regular rhythm, S1 normal heart sound, S2 normal heart sound and no murmurs GI normal to inspection, nondistended, normoactive bowel sounds, soft to palpation, non-tender and non-distended Extremity normal to inspection, full ROM and no clubbing, cyanosis or edema Neuro oriented x3, CN's II-XII intact bilaterally, moves all extremities and no focal motor deficits Sensorium / Orientation: awake and alert Motor Exam: strength 5/5 throughout Psych affect normal Results Lab / Micro Data 06/08/24 15:40 06/08/24 15:40 Labs: Laboratory Results - last 24 hr 06/08/24 15:40: WBC 20.9 H, RBC 4.88, Hgb 14.3, Hct 42.9, MCV 87.9, MCH 29.3, MCHC 33.3, RDW Std Deviation 43.8, RDW Coeff of Sami 13.7, Plt Count 225, MPV 10.2, Immature Gran % (Auto) 0.500, Neut % (Auto) 85.6 H, Lymph % (Auto) 7.9 L, [place] % (Auto) 5.8, Eos % (Auto) 0.0, Baso % (Auto) 0.2, Absolute Neuts (auto) 17.9 H, Absolute Lymphs (auto) 1.65, Nucleated RBC % 0, Sodium 141, Potassium 3.6, Chloride 110 H, Carbon Dioxide 25.0, Anion Gap 6, BUN 16, Creatinine 1.42 H, Estim Creat Clear Calc 46.72, Est GFR (MDRD) Af Amer 62, Est GFR (MDRD) Non-Af 51 L, BUN/Creatinine Ratio 11.3, Glucose 148 H, Calcium 9.5, Urine Color Yellow, Urine Clarity Sl. Cloudy, Urine pH 6.0, Ur Specific [place] 1.015, Urine Protein 100 H, Urine Glucose (UA) Normal, Urine Ketones Negative, Urine Occult Blood Negative, Urine Nitrite Negative, Urine Bilirubin Negative, Urine Urobilinogen Normal, Ur Leukocyte Esterase Negative, Urine RBC 0 SEEN, Urine WBC 0-5 SEEN, Ur Squamous Epith Cells 0 SEEN, Urine Bacteria 0 SEEN, Urine Mucus 0 SEEN Micro: Microbiology 06/08/24 16:43 Mucosa - Nose SARS-CoV-2, Influenza & RSV (PCR) - Final Imaging Radiology Impression Abdomen/Pelvis CT 06/08/24 16:02 IMPRESSION: 1. No definite acute abnormality in the abdomen or pelvis. 2. Possible atelectasis or infiltrate in the right lung base. Electronically Signed: David Santoyo MD at 16:55 EDT , Chest X-Ray 06/08/24 16:48 IMPRESSION: Probable mild diffuse atelectasis or infiltrate throughout the right lung. Stable bilateral pleural plaques with calcifications. Electronically Signed: David Santoyo MD at 17:31 EDT , Assessment & Plan Assessment/Plan (1) Leukocytosis: (2) Pneumonia: (3) Dyspnea: PLAN: Plan #Community acquired pneumonia admit to [facility] with telemetry admitted with a complaint of dysuria CT abdomen showed no acute abdominopelvic pathology and showed possible atelectasis or infiltrate in the right lung base. CXR showed probable diffuse atelectasis or infiltrate throught the right lung. start on IV levofloxacin get urine for strep and legionella, adn sputum cultures if he is producing any sputum urinalysis showed no evidence of UTI hydrate gently with iVF NS @ 125cc/hr #Hypertension: on amlodipine, losartan and metoprolol #CAD s/p stents: This was back in 2013 where he had drug-eluting stent to the mid left anterior descending artery and he did have a repeat left heart cath in April 2021 after an abnormal stress test and this cath showed a distally occluded RCA with [id number] collaterals and left anterior descending artery with 50% stenosis, circumflex artery with an ostial 60% stenosis in the proximal RCA with 50% stenosis. Medical therapy was recommended. On aspirin and high statin #History of dementia: on donepezil DVT prophylaxis: lovenox Code status: Patient's counseled extensively about different types of CODE STATUS including full code, DNR CCA and DNR CCA. Due to patient's dementia, his who is his POA makes decisions for him. She elects for him to be full code. Total [id number] time 17 minutes. Charges/Coding Visit Charges Inpatient E&M: 43616 Init Hosp L3 Procedures Hospitalists Procedures: 25275 Advncd Care Plan 30 Min
[2024-06-08] MEDS: Memantine Hydrochloride 10 MG Tablet PO (22:55)
[2024-06-08] MEDS: Pravastatin 80 MG Tablet PO (22:56)
[2024-06-08] MEDS: Donepezil HCl 10 MG Tablet PO (22:56)
[2024-06-09] VITALS (7 sets, daily range): BP systolic 148–158; BP diastolic 46–82; PULSE 68–84; RESP 18–20; TEMP 36.3–36.8; O2SAT 91–96
--- NOTE | 2024-06-09 07:30 | PN.HOSP_ITS ---
Reason for Visit Reason for Visit: Diagnoses Elevated white blood cell count, unspecified (06/08/24) Pneumonia, unspecified organism (06/08/24) Dyspnea, unspecified (06/08/24) Subjective Subjective Patient is an 79-year-old gentleman with history of underlying dementia who was brought to the emergency department with some confusion. Workup with chest x- ray did not demonstrate probable mild diffuse atelectasis or infiltrate throughout the right lung. Stable bilateral pleural plaques with calcifications. An assessment of community-acquired pneumonia made patient started on antibiotics per protocol admitted to regular nursing floor for further management Objective Data Objective Data Vital Signs: Vital Signs Temp Pulse Resp BP Pulse Ox O2 Del Method 98.2 F 74 18 149/46 H 92 Room Air 06/09/24 02:46 06/09/24 02:46 06/09/24 02:46 06/09/24 02:46 06/09/24 02:46 06/09/24 02:46 Oxygen Delivery Method Room Air Weight: 95.9 kg Body Mass Index (BMI) 28.6 Intake & Output: Intake and Output for Last 24 Hours 06/07/24 06/08/24 06/09/24 23:59 23:59 23:59 Intake Total 150 / 150 Balance 150 / 150 Lab / Micro Data 06/08/24 15:40 06/08/24 15:40 Labs: Laboratory Results - last 24 hr 06/08/24 15:40: WBC 20.9 H, RBC 4.88, Hgb 14.3, Hct 42.9, MCV 87.9, MCH 29.3, MCHC 33.3, RDW Std Deviation 43.8, RDW Coeff of Sami 13.7, Plt Count 225, MPV 10.2, Immature Gran % (Auto) 0.500, Neut % (Auto) 85.6 H, Lymph % (Auto) 7.9 L, [place] % (Auto) 5.8, Eos % (Auto) 0.0, Baso % (Auto) 0.2, Absolute Neuts (auto) 17.9 H, Absolute Lymphs (auto) 1.65, Nucleated RBC % 0, Sodium 141, Potassium 3.6, Chloride 110 H, Carbon Dioxide 25.0, Anion Gap 6, BUN 16, Creatinine 1.42 H , Estim Creat Clear Calc 46.72, Est GFR (MDRD) Af Amer 62, Est GFR (MDRD) Non-Af 51 L, BUN/Creatinine Ratio 11.3, Glucose 148 H, Calcium 9.5, Urine Color Yellow, Urine Clarity Sl. Cloudy, Urine pH 6.0, Ur Specific [place] 1.015, Urine Protein 100 H, Urine Glucose (UA) Normal, Urine Ketones Negative, Urine Occult Blood Negative, Urine Nitrite Negative, Urine Bilirubin Negative, Urine Urobilinogen Normal, Ur Leukocyte Esterase Negative, Urine RBC 0 SEEN, Urine WBC 0-5 SEEN, Ur Squamous Epith Cells 0 SEEN, Urine Bacteria 0 SEEN, Urine Mucus 0 SEEN Micro: Microbiology 06/08/24 15:48 Urine, Clean Catch Legionella Antigen - Final 06/08/24 15:48 Urine, Clean Catch Streptococcus pneumoniae Antigen (M - Final 06/08/24 16:43 Mucosa - Nose SARS-CoV-2, Influenza & RSV (PCR) - Final Radiography Diagnostic Testing: Radiology Impression Abdomen/Pelvis CT 06/08/24 16:02 IMPRESSION: 1. No definite acute abnormality in the abdomen or pelvis. 2. Possible atelectasis or infiltrate in the right lung base. Electronically Signed: David Santoyo MD at 16:55 EDT , Chest X-Ray 06/08/24 16:48 IMPRESSION: Probable mild diffuse atelectasis or infiltrate throughout the right lung. Stable bilateral pleural plaques with calcifications. Electronically Signed: David Santoyo MD at 17:31 EDT , Physical Exam Narrative GENERAL: cooperative HEENT: Atraumatic; normocephalic EYES; Anicteric, Normal Conjunctiva NECK; supple, normal thyroid, RESPIRATORY: Diminished to auscultation CARDIOVASCULAR: Regular S1 S2, GI: soft, normoactive bowel sounds, : No Renal angle tenderness; EXTREMITIES: No edema, no clubbing, MUSCULOSKELETAL: no muscle wasting NEURO: Awake; no lateralizing signs. SKIN: No Rash PSYCH; Flat affect Assessment & Plan Assessment/Plan (1) Leukocytosis: (2) Pneumonia: (3) Dyspnea: PLAN: Plan Patient is an 79-year-old gentleman with history of underlying dementia who was brought to the emergency department with some confusion. Workup with chest x- ray did not demonstrate probable mild diffuse atelectasis or infiltrate throughout the right lung. Stable bilateral pleural plaques with calcifications. An assessment of community-acquired pneumonia made patient started on antibiotics per protocol admitted to regular nursing floor for further management 1. Pneumonia - Suspected to be secondary to streptococcal pneumonia, Blood and sputum cultures sent. Patient placed on Rocephin and Zithromax and placed on oxygen titrated to keep Pulse Ox greater than 90. Patient has significant leukocytosis response to therapy being monitored with daily CBC with 2. Hypertension ? Blood pressure controlled, home medications continued with dose adjustment as needed 3. Coronary artery disease ? With previous PCI. Patient remains on guideline directed medical therapy 4. Dyslipidemia ?Patient is on statin therapy, continued at home dose 5. Dementia without behavioral agitation ? Patient is on memantine as well as donepezil, did continue 6. GERD ? Patient is on PPI 7. Chronic kidney disease stage III ? Kidney function appears to be close to baseline. Daily monitoring with BMP ordered 8. Hyperglycemia ? Patient is not a known diabetic ordered hemoglobin A1c 9. DVT prophylaxis ? On enoxaparin Time spent in the patient's overall evaluation,decision-making process, review of diagnostic data, adjustment of management, discussion with other providers, nursing nursing and ancillary staff involved in patient's care documentation, 50 Minutes Charges/Coding Visit Charges Inpatient E&M: 38728 [place] [id number]
[2024-06-09] MEDS: Tolterodine Tartrate 2 MG CAP.SA PO (08:10)
[2024-06-09] MEDS: Cholecalciferol (VIT D3) 25 MCG TABLET (1,000 UNITS) PO (08:10)
[2024-06-09] MEDS: Metoprolol(XL)Succ 25 MG Tablet 75 MG PO (08:10)
[2024-06-09] MEDS: Memantine Hydrochloride 10 MG Tablet PO ×2 (08:10→20:35)
[2024-06-09] MEDS: Losartan Potassium 100 MG Tablet PO (08:10)
[2024-06-09] MEDS: Multivitamins,Therapeutic Tablet 1 TABLET PO (08:11)
[2024-06-09] MEDS: Aspirin E.C. 81 MG Tablet PO (08:11)
[2024-06-09] MEDS: amLODIPine 10 MG Tablet PO (08:11)
[2024-06-09] MEDS: Pantoprazole Sodium 40 MG Tablet PO (08:11)
[2024-06-09] MEDS: Ascorbic Acid 500 MG Tablet PO (08:11)
[2024-06-09] MEDS: Enoxaparin 30 MG/0.3 ML Syringe SC (09:23)
--- NOTE | 2024-06-09 11:50 | CASEMGMT ---
VAN FORD Assessment Face to Face with patient for initial transition planning/care coordination assessment. VAN FORD introduced self and role at [facility], pt voices understanding. Pt is A&Ox4 and is resting comfortably in the chair and is calm. Care providers, pharmacy, and demographics verified. Admitting dx: CAP, Weakness LACE Strata: 2 PCP: Adama Jon Specialists: Denies Preferred Pharmacy: [facility] Insurance: [facility] A/B, [facility] Prescription Benefit: Yes LNOK: Mildred Johnson (W), Tim Johnson (Son) Living Arrangements: Pt lives with his in a single story home with one step to enter ADLs/IADLs: Ind Transportation: Self, DME: [employer]. Denies all other DME uses or needs HHC/SNF: States HHC Hx x 3 years ago but cannot recall the name of the agency Pt?s goal: Home Plan: Pt was cleared by PT and OT. Pt states that he wishes to DC home and denies the need for HHC or OP Tx. Pt states that he feels safe with this plan and denies further questions or concerns. Becky Cabrera RN, CM
[2024-06-09] MEDS: Ipratropium/Albuterol Sulfate 3 ML AMPUL.NEB INHALATION (18:47)
[2024-06-09] MEDS: Donepezil HCl 10 MG Tablet PO (20:35)
[2024-06-09] MEDS: Pravastatin 80 MG Tablet PO (20:35)
[2024-06-09] MEDS: QUEtiapine 25 MG Tablet PO (20:35)
--- NOTE | 2024-06-09 20:36 | NURSING ---
Pt will not stay in room. Pt out walking in the hallway. Pt can be uncooperative. security help to get in room
[2024-06-10 01:36] VITALS: BP 140/66; PULSE 90; RESP 18; TEMP 37.2; O2SAT 92
[2024-06-10] MEDS: 0.9% Saline Lock 10 ML Syringe IV ×2 (01:36→09:10)
--- NOTE | 2024-06-10 07:54 | PCM.PN.HOSP ---
Reason for Visit Reason for Visit: Diagnoses Elevated white blood cell count, unspecified (06/08/24) Pneumonia, unspecified organism (06/08/24) Dyspnea, unspecified (06/08/24) Subjective Subjective Patient did experience episodes of agitation the day prior. An order was given for Seroquel. Per patient's who was by the bedside patient had a relatively restful evening. Objective Data Objective Data Vital Signs: Vital Signs Temp Pulse Resp BP Pulse Ox O2 Del Method 99 F 90 18 140/66 H 92 Room Air 06/10/24 01:36 06/10/24 01:36 06/10/24 01:36 06/10/24 01:36 06/10/24 01:36 06/10/24 01:40 Oxygen Delivery Method Room Air Weight: 95.9 kg Body Mass Index (BMI) 28.6 Intake & Output: Intake and Output for Last 24 Hours 06/08/24 06/09/24 06/10/24 23:59 23:59 23:59 Intake Total 150 / 150 200 / 200 Balance 150 / 150 200 / 200 Lab / Micro Data 06/08/24 15:40 06/08/24 15:40 Micro: Microbiology 06/08/24 15:48 Urine, Clean Catch Legionella Antigen - Final 06/08/24 15:48 Urine, Clean Catch Streptococcus pneumoniae Antigen (M - Final 06/08/24 16:43 Mucosa - Nose SARS-CoV-2, Influenza & RSV (PCR) - Final Physical Exam Narrative GENERAL: In no apparent distress HEENT: Atraumatic; normocephalic EYES; Anicteric, Normal Conjunctiva NECK; supple, normal thyroid, RESPIRATORY: Diminished to auscultation CARDIOVASCULAR: Regular S1 S2, GI: soft, normoactive bowel sounds, : No Renal angle tenderness; EXTREMITIES: No edema, no clubbing, MUSCULOSKELETAL: no muscle wasting NEURO: no lateralizing signs. SKIN: No Rash PSYCH; Flat affect Assessment & Plan Assessment/Plan (1) Leukocytosis: (2) Pneumonia: (3) Dyspnea: PLAN: Plan Patient is an 79-year-old gentleman with history of underlying dementia who was brought to the emergency department with some confusion. Workup with chest x-ray did not demonstrate probable mild diffuse atelectasis or infiltrate throughout the right lung. Stable bilateral pleural plaques with calcifications. An assessment of community-acquired pneumonia made patient started on antibiotics per protocol admitted to regular nursing floor for further management 1. Pneumonia - Suspected to be secondary to streptococcal pneumonia, Blood and sputum cultures sent. Patient placed on Rocephin and Zithromax and placed on oxygen titrated to keep Pulse Ox greater than 90. Patient has significant leukocytosis response to therapy being monitored with daily CBC with differential ? 06/10/2024; currently off oxygen 2. Hypertension ? Blood pressure controlled, home medications continued with dose adjustment as needed 3. Coronary artery disease ? With previous PCI. Patient remains on guideline directed medical therapy 4. Dyslipidemia ?Patient is on statin therapy, continued at home dose 5. Dementia with behavioral agitation ? Patient is on memantine as well as donepezil, did continue ? 06/10/2024; patient did experience urinary agitation necessitating initiation of Seroquel. 6. GERD ? Patient is on PPI 7. Chronic kidney disease stage III ? Kidney function appears to be close to baseline. Daily monitoring with BMP ordered 8. Hyperglycemia ? Patient is not a known diabetic ordered hemoglobin A1c 9. DVT prophylaxis ? On enoxaparin 10. Physical deconditioning ? Requested for PT OT eval and social sciences department chair to assist with discharge planning Time spent in the patient's overall evaluation,decision-making process, review of diagnostic data, adjustment of management, discussion with other providers, patient's , nursing nursing and ancillary staff involved in patient's care documentation, 50 Minutes Charges/Coding Visit Charges Inpatient E&M: 10643 [facility] L3
[2024-06-10 08:11] LABS: Absolute Lymphocyte Count 1.56 X10^3/uL (0.83-4.51); Absolute Neutrophil Count 7.3 X10^3/uL (2.0-7.7); Basophil# 0.02 X10^3/uL; Basophil% 0.2 % (0-1); Hematocrit 36.7 % (40-54); Hemoglobin 12.3 g/dL (13.0-16.5); Lymphocyte # 1.56 X10^3/ul (0.83-4.51); Lymphocyte % 15.4 % (19-41); Mean Corp Hgb Conc 33.5 g/dL (32-36); Mean Corpuscular Hgb 29.2 pg (27.0-32.0); Mean Corpuscular Volume 87.2 fL (80-94); Mean Platelet Vol. 10.6 fl (6.2-12.0); Monocyte# 1.13 X10^3/uL; Monocyte% 11.2 % (0-10); NRBC Flagged by Analyzer 0 % (0-5); Neutrophil # 7.26 X10^3/uL (2.7-7.7); Neutrophil % 71.7 % (47-70); Platelet Count 184 K/mm3 (150-450); RBC Distribution Width CV 13.8 % (11.6-14.6); RBC Distribution Width SD 43.6 fl (35.1-43.9); Red Blood Count 4.21 M/mm3 (4.6-6.2); White Blood Count 10.1 K/mm3 (4.4-11.0)
[2024-06-10 08:58] VITALS: BP 130/65; PULSE 70; RESP 16; TEMP 36.8; O2SAT 94
[2024-06-10 09:06] LABS: Anion Gap 7 (5-15); BUN 16 mg/dL (7-18); BUN/Creat Ratio 12.8 RATIO (10-20); Chloride 109 mmol/L (98-107); Creatinine, Serum 1.25 mg/dL (0.70-1.30); EST Glomerular Filtration Rate 59 mL/min (>60); Est Glom Filt Rate - Afr Amer 71 mL/min (>60); Estimated Creatinine Clearance 55.67 ml/min; Glucose 119 mg/dL (74-106); Magnesium 1.9 mg/dL (1.6-2.6); Phosphorus 2.6 mg/dL (2.5-4.9); Sodium Level 139 mmol/L (136-145)
[2024-06-10] MEDS: 0.9% Normal Saline (250mL Bag) 250 ML 15 ML IV (09:07)
[2024-06-10] MEDS: levoFLOXacin IV 750 MG/150 ML BAG 100 MG IV (09:07)
[2024-06-10 09:10] VITALS: PULSE 70
[2024-06-10] MEDS: amLODIPine 10 MG Tablet PO (09:10)
[2024-06-10] MEDS: Tolterodine Tartrate 2 MG CAP.SA PO (09:10)
[2024-06-10] MEDS: Cholecalciferol (VIT D3) 25 MCG TABLET (1,000 UNITS) PO (09:10)
[2024-06-10] MEDS: QUEtiapine 25 MG Tablet PO ×2 (09:10→22:01)
[2024-06-10] MEDS: Enoxaparin 30 MG/0.3 ML Syringe SC (09:10)
[2024-06-10] MEDS: Memantine Hydrochloride 10 MG Tablet PO ×2 (09:10→22:01)
[2024-06-10] MEDS: Multivitamins,Therapeutic Tablet 1 TABLET PO (09:10)
[2024-06-10] MEDS: Aspirin E.C. 81 MG Tablet PO (09:10)
[2024-06-10] MEDS: Ascorbic Acid 500 MG Tablet PO (09:10)
[2024-06-10] MEDS: Metoprolol(XL)Succ 25 MG Tablet 75 MG PO (09:10)
[2024-06-10] MEDS: Pantoprazole Sodium 40 MG Tablet PO (09:10)
[2024-06-10] MEDS: Losartan Potassium 100 MG Tablet PO (09:11)
--- NOTE | 2024-06-10 09:44 | CASEMGMT ---
Social Work- SW met with pt and pt to discuss discharge preference. A list of SNF providers including quality and resource use data and consistent with the patient?s preferred geographic region, medical needs, and insurance network were provided from the [employer] Guide. SW also provided [facility] navigator handout. SW will follow up for pt for 3 choices. BARBRA Miller
--- NOTE | 2024-06-10 12:57 | CASEMGMT ---
Social Work- SW f/u with pt and who select [facility] as [facility]. will look for second choice if needed. DCA advised referral can be completed. SW remains available to follow. BARBRA Miller
--- NOTE | 2024-06-10 13:29 | CASEMGMT ---
Addendum entered by Nancy Chappell 06/10/24 16:20: Phone/fax for [facility]; [phone] (p) [phone] (f) Nancy Chappell DC Planning Asst. Original Note: Discharge Planning Referral faxed to [facility]. Nancy Chappell DC Planning Asst.
[2024-06-10 14:50] VITALS: BP 133/72; PULSE 73; RESP 16; TEMP 36.7; O2SAT 93
[2024-06-10] MEDS: Potassium Chloride Oral Tablet 20 MEQ 40 MEQ PO (14:52)
[2024-06-10] MEDS: Potassium Chloride Oral Tablet 20 MEQ PO (17:03)
[2024-06-10 21:57] VITALS: BP 141/72; PULSE 76; RESP 18; TEMP 36.6; O2SAT 95
[2024-06-10] MEDS: Polyethylene Glycol 3350 17 GM PACKET PO (22:01)
[2024-06-10] MEDS: Pravastatin 80 MG Tablet PO (22:01)
[2024-06-10] MEDS: Donepezil HCl 10 MG Tablet PO (22:01)
[2024-06-11 06:26] VITALS: BP 150/69; PULSE 82; RESP 18; TEMP 37; O2SAT 93
[2024-06-11 06:55] LABS: Absolute Neutrophil Count 6.4 X10^3/uL (2.0-7.7); Basophil# 0.03 X10^3/uL; Basophil% 0.3 % (0-1); Eosinophil# 0.21 X10^3/uL; Eosinophils% 2.3 % (0-5); Hematocrit 36.7 % (40-54); Hemoglobin 12.3 g/dL (13.0-16.5); Lymphocyte % 17.3 % (19-41); Mean Corp Hgb Conc 33.5 g/dL (32-36); Mean Corpuscular Hgb 29.5 pg (27.0-32.0); Mean Platelet Vol. 10.7 fl (6.2-12.0); Monocyte# 1.03 X10^3/uL; Monocyte% 11.1 % (0-10); NRBC Flagged by Analyzer 0 % (0-5); Neutrophil # 6.36 X10^3/uL (2.7-7.7); Neutrophil % 68.6 % (47-70); Platelet Count 183 K/mm3 (150-450); RBC Distribution Width CV 13.9 % (11.6-14.6); RBC Distribution Width SD 44.3 fl (35.1-43.9); Red Blood Count 4.17 M/mm3 (4.6-6.2); White Blood Count 9.3 K/mm3 (4.4-11.0)
[2024-06-11 07:12] LABS: Anion Gap 6 (5-15); BUN 17 mg/dL (7-18); BUN/Creat Ratio 12.9 RATIO (10-20); Calcium,Total 8.9 mg/dL (8.5-10.1); Chloride 111 mmol/L (98-107); Creatinine, Serum 1.32 mg/dL (0.70-1.30); EST Glomerular Filtration Rate 55 mL/min (>60); Est Glom Filt Rate - Afr Amer 67 mL/min (>60); Estimated Creatinine Clearance 52.72 ml/min; Glucose 116 mg/dL (74-106); Potassium 3.5 mmol/L (3.5-5.1); Sodium Level 140 mmol/L (136-145)
--- NOTE | 2024-06-11 07:28 | PN.HOSP_ITS ---
Reason for Visit Reason for Visit: Diagnoses Elevated white blood cell count, unspecified (06/08/24) Pneumonia, unspecified organism (06/08/24) Dyspnea, unspecified (06/08/24) Subjective Subjective Patient seen much more awake active. Awaiting insurance precertification prior to transfer to fpc facility. Patient was started on MiraLAX for constipation Objective Data Objective Data Vital Signs: Vital Signs Temp Pulse Resp BP Pulse Ox O2 Del Method 98.6 F 82 18 150/69 H 93 Room Air 06/11/24 06:26 06/11/24 06:26 06/11/24 06:26 06/11/24 06:26 06/11/24 06:26 06/11/24 06:30 Oxygen Delivery Method Room Air Weight: 95.9 kg Body Mass Index (BMI) 28.6 Intake & Output: Intake and Output for Last 24 Hours 06/09/24 06/10/24 06/11/24 23:59 23:59 23:59 Intake Total 200 / 200 357.00 / 357.00 100 / 100 Balance 200 / 200 357.00 / 357.00 100 / 100 Lab / Micro Data 06/11/24 06:08 06/11/24 06:08 Labs: Laboratory Results - last 24 hr 06/10/24 07:26: WBC 10.1, RBC 4.21 L, Hgb 12.3 L, Hct 36.7 L, MCV 87.2, MCH 29.2, MCHC 33.5, RDW Std Deviation 43.6, RDW Coeff of Sami 13.8, Plt Count 184, MPV 10.6, Immature Gran % (Auto) 0.500, Neut % (Auto) 71.7 H, Lymph % (Auto) 15.4 L, [place] % (Auto) 11.2 H, Eos % (Auto) 1.0, Baso % (Auto) 0.2, Absolute Neuts (auto) 7.3, Absolute Lymphs (auto) 1.56, Nucleated RBC % 0, Sodium 139, P otassium 3.0 L, Chloride 109 H, Carbon Dioxide 23.0, Anion Gap 7, BUN 16, Creatinine 1.25, Estim Creat Clear Calc 55.67, Est GFR (MDRD) Af Amer 71, Est GFR (MDRD) Non-Af 59 L, BUN/Creatinine Ratio 12.8, Glucose 119 H, Calcium 9.0, Phosphorus 2.6, Magnesium 1.9 06/11/24 06:08: WBC 9.3, RBC 4.17 L, Hgb 12.3 L, Hct 36.7 L, MCV 88.0, MCH 29.5, MCHC 33.5, RDW Std Deviation 44.3 H, RDW Coeff of Sami 13.9, Plt Count 183, MPV 10.7, Immature Gran % (Auto) 0.400, Neut % (Auto) 68.6, Lymph % (Auto) 17.3 L, M [place]ha[place] % (Auto) 11.1 H, Eos % (Auto) 2.3, Baso % (Auto) 0.3, Absolute Neuts (auto) 6.4, Absolute Lymphs (auto) 1.60, Nucleated RBC % 0, Sodium 140, Potassium 3.5, Chloride 111 H, Carbon Dioxide 23.0, Anion Gap 6, BUN 17, Creatinine 1.32 H, Estim Creat Clear Calc 52.72, Est GFR (MDRD) Af Amer 67, Est GFR (MDRD) Non-Af 55 L, BUN/Creatinine Ratio 12.9, Glucose 116 H, Calcium 8.9 Micro: Microbiology 06/08/24 18:35 Blood Culture (Wb) - Anticubital Right Blood Culture - Preliminary No growth in 48 hours. 06/08/24 15:48 Urine, Clean Catch Legionella Antigen - Final 06/08/24 15:48 Urine, Clean Catch Streptococcus pneumoniae Antigen (M - Final 06/08/24 16:43 Mucosa - Nose SARS-CoV-2, Influenza & RSV (PCR) - Final Physical Exam Narrative GENERAL: In no apparent distress HEENT: Atraumatic; normocephalic EYES; Anicteric, Normal Conjunctiva NECK; supple, normal thyroid, RESPIRATORY: Diminished to auscultation CARDIOVASCULAR: Regular S1 S2, GI: soft, normoactive bowel sounds, : No Renal angle tenderness; EXTREMITIES: No edema, no clubbing, MUSCULOSKELETAL: no muscle wasting NEURO: no lateralizing signs. SKIN: No Rash PSYCH; Flat affect Assessment & Plan Assessment/Plan (1) Leukocytosis: (2) Pneumonia: (3) Dyspnea: PLAN: Plan Patient is an 79-year-old gentleman with history of underlying dementia who was brought to the emergency department with some confusion. Workup with chest x- ray did not demonstrate probable mild diffuse atelectasis or infiltrate throughout the right lung. Stable bilateral pleural plaques with calcifications. An assessment of community-acquired pneumonia made patient started on antibiotics per protocol admitted to regular nursing floor for further management 1. Pneumonia - Suspected to be secondary to streptococcal pneumonia, Blood and sputum cultures sent. Patient placed on Rocephin and Zithromax and placed on oxygen titrated to keep Pulse Ox greater than 90. Patient has significant leukocytosis response to therapy being monitored with daily CBC with differential ? 06/10/2024; currently off oxygen ? 06/11/2024; remains off oxygen 2. Hypertension ? Blood pressure controlled, home medications continued with dose adjustment as needed 3. Coronary artery disease ? With previous PCI. Patient remains on guideline directed medical therapy 4. Dyslipidemia ?Patient is on statin therapy, continued at home dose 5. Dementia with behavioral agitation ? Patient is on memantine as well as donepezil, did continue ? 06/10/2024; patient did experience urinary agitation necessitating initiation of Seroquel. 6. GERD ? Patient is on PPI 7. Chronic kidney disease stage III ? Kidney function appears to be close to baseline. Daily monitoring with BMP ordered 8. Hyperglycemia ? Patient is not a known diabetic ordered hemoglobin A1c 9. DVT prophylaxis ? On enoxaparin 10. Physical deconditioning ? Requested for PT OT eval and director of social services to assist with discharge planning 11. Constipation ? Treated with MiraLAX Time spent in the patient's overall evaluation,decision-making process, review of diagnostic data, adjustment of management, discussion with other providers, patient's , nursing nursing and ancillary staff involved in patient's care documentation, 36 minutes Charges/Coding Visit Charges Inpatient E&M: 52682 Subs Hosp L2
[2024-06-11] MEDS: Potassium Chloride Oral Tablet 20 MEQ PO ×2 (08:56→17:58)
[2024-06-11] MEDS: Multivitamins,Therapeutic Tablet 1 TABLET PO (08:56)
[2024-06-11] MEDS: Enoxaparin 30 MG/0.3 ML Syringe SC (08:57)
[2024-06-11] MEDS: Tolterodine Tartrate 2 MG CAP.SA PO (08:57)
[2024-06-11] MEDS: Pantoprazole Sodium 40 MG Tablet PO (08:58)
[2024-06-11] MEDS: Memantine Hydrochloride 10 MG Tablet PO ×2 (08:58→20:21)
[2024-06-11] MEDS: Losartan Potassium 100 MG Tablet PO (08:59)
[2024-06-11] MEDS: amLODIPine 10 MG Tablet PO (08:59)
[2024-06-11] MEDS: Aspirin E.C. 81 MG Tablet PO (08:59)
[2024-06-11 09:00] VITALS: PULSE 80
[2024-06-11] MEDS: Metoprolol(XL)Succ 25 MG Tablet 75 MG PO (09:00)
[2024-06-11] MEDS: Ascorbic Acid 500 MG Tablet PO (09:00)
[2024-06-11] MEDS: Cholecalciferol (VIT D3) 25 MCG TABLET (1,000 UNITS) PO (09:01)
[2024-06-11 12:00] VITALS: RESP 18; O2SAT 98
[2024-06-11 12:15] VITALS: BP 144/64; PULSE 80; RESP 18; TEMP 36.9; O2SAT 98
[2024-06-11 15:56] VITALS: BP 135/63; PULSE 82; RESP 16; TEMP 36.8; O2SAT 95
[2024-06-11 19:48] VITALS: BP 145/73; PULSE 87; RESP 18; TEMP 37; O2SAT 95
[2024-06-11] MEDS: QUEtiapine 25 MG Tablet PO (20:21)
[2024-06-11] MEDS: Donepezil HCl 10 MG Tablet PO (20:22)
[2024-06-11] MEDS: Pravastatin 80 MG Tablet PO (20:22)
[2024-06-11] MEDS: Polyethylene Glycol 3350 17 GM PACKET PO (20:33)
--- NOTE | 2024-06-11 21:04 | PCM.HOSP.N ---
Hospitalist Note Patient with notable agitation already on Seroquel regimen for the specific reason. Currently more agitated. Will trial low-dose Haldol x 1 and reassess.
[2024-06-11] MEDS: 0.9% Saline Lock 10 ML Syringe IV (21:13)
[2024-06-11] MEDS: Haloperidol Lactate 5 MG/ML Vial 1 MG IV (21:13)
[2024-06-12 06:05] VITALS: BP 153/86; PULSE 79; RESP 16; TEMP 36.9; O2SAT 92
[2024-06-12 06:54] LABS: Absolute Lymphocyte Count 1.94 X10^3/uL (0.83-4.51); Absolute Neutrophil Count 4.2 X10^3/uL (2.0-7.7); Basophil# 0.02 X10^3/uL; Basophil% 0.3 % (0-1); Eosinophil# 0.25 X10^3/uL; Eosinophils% 3.4 % (0-5); Hemoglobin 12.8 g/dL (13.0-16.5); Lymphocyte # 1.94 X10^3/ul (0.83-4.51); Lymphocyte % 26.4 % (19-41); Mean Corp Hgb Conc 32.8 g/dL (32-36); Mean Corpuscular Hgb 29.4 pg (27.0-32.0); Mean Corpuscular Volume 89.4 fL (80-94); Mean Platelet Vol. 10.3 fl (6.2-12.0); Monocyte# 0.94 X10^3/uL; Monocyte% 12.8 % (0-10); NRBC Flagged by Analyzer 0 % (0-5); Neutrophil # 4.19 X10^3/uL (2.7-7.7); Neutrophil % 56.8 % (47-70); Platelet Count 200 K/mm3 (150-450); RBC Distribution Width CV 13.7 % (11.6-14.6); RBC Distribution Width SD 45.1 fl (35.1-43.9); Red Blood Count 4.36 M/mm3 (4.6-6.2); White Blood Count 7.4 K/mm3 (4.4-11.0)
[2024-06-12 07:17] LABS: Anion Gap 5 (5-15); BUN 17 mg/dL (7-18); BUN/Creat Ratio 14.3 RATIO (10-20); Calcium,Total 9.2 mg/dL (8.5-10.1); Chloride 110 mmol/L (98-107); Creatinine, Serum 1.19 mg/dL (0.70-1.30); EST Glomerular Filtration Rate 62 mL/min (>60); Est Glom Filt Rate - Afr Amer 75 mL/min (>60); Estimated Creatinine Clearance 58.48 ml/min; Glucose 112 mg/dL (74-106); Potassium 3.2 mmol/L (3.5-5.1); Sodium Level 140 mmol/L (136-145)
--- NOTE | 2024-06-12 07:33 | PCM.PN.HOSP ---
Reason for Visit Reason for Visit: Diagnoses Elevated white blood cell count, unspecified (06/08/24) Pneumonia, unspecified organism (06/08/24) Dyspnea, unspecified (06/08/24) Subjective Subjective Patient seen relatively uneventful night. Diagnostic data significant for potassium of 3.2 replacement initiated Objective Data Objective Data Vital Signs: Vital Signs Temp Pulse Resp BP Pulse Ox O2 Del Method 98.5 F 79 16 153/86 H 92 Room Air 06/12/24 06:05 06/12/24 06:05 06/12/24 06:05 06/12/24 06:05 06/12/24 06:05 06/12/24 06:13 Oxygen Delivery Method Room Air Weight: 95.9 kg Body Mass Index (BMI) 28.6 Intake & Output: Intake and Output for Last 24 Hours 06/10/24 06/11/24 06/12/24 23:59 23:59 23:59 Intake Total 357.00 / 357.00 700 / 700 100 / 100 Balance 357.00 / 357.00 700 / 700 100 / 100 Lab / Micro Data 06/12/24 06:00 06/12/24 06:00 Labs: Laboratory Results - last 24 hr 06/12/24 06:00: WBC 7.4, RBC 4.36 L, Hgb 12.8 L, Hct 39.0 L, MCV 89.4, MCH 29.4, MCHC 32.8, RDW Std Deviation 45.1 H, RDW Coeff of Sami 13.7, Plt Count 200, MPV 10.3, Immature Gran % (Auto) 0.300, Neut % (Auto) 56.8, Lymph % (Auto) 26.4, [place] % (Auto) 12.8 H, Eos % (Auto) 3.4, Baso % (Auto) 0.3, Absolute Neuts (auto) 4.2, Absolute Lymphs (auto) 1.94, Nucleated RBC % 0, Sodium 140, Potassium 3.2 L, Chloride 110 H, Carbon Dioxide 25.0, Anion Gap 5, BUN 17, Creatinine 1.19, Estim Creat Clear Calc 58.48, Est GFR (MDRD) Af Amer 75, Est GFR (MDRD) Non-Af 62, BUN/Creatinine Ratio 14.3, Glucose 112 H, Calcium 9.2 Micro: Microbiology 06/08/24 18:35 Blood Culture (Wb) - Anticubital Right Blood Culture - Preliminary No growth in 48 hours. 06/08/24 15:48 Urine, Clean Catch Legionella Antigen - Final 06/08/24 15:48 Urine, Clean Catch Streptococcus pneumoniae Antigen (M - Final 06/08/24 16:43 Mucosa - Nose SARS-CoV-2, Influenza & RSV (PCR) - Final Physical Exam Narrative GENERAL: In no apparent distress HEENT: Atraumatic; normocephalic EYES; Anicteric, Normal Conjunctiva NECK; supple, normal thyroid, RESPIRATORY: Diminished to auscultation CARDIOVASCULAR: Regular S1 S2, GI: soft, normoactive bowel sounds, : No Renal angle tenderness; EXTREMITIES: No edema, no clubbing, MUSCULOSKELETAL: no muscle wasting NEURO: no lateralizing signs. SKIN: No Rash PSYCH; Flat affect Assessment & Plan Assessment/Plan (1) Leukocytosis: (2) Pneumonia: (3) Dyspnea: PLAN: Plan Patient is an 79-year-old gentleman with history of underlying dementia who was brought to the emergency department with some confusion. Workup with chest x-ray did not demonstrate probable mild diffuse atelectasis or infiltrate throughout the right lung. Stable bilateral pleural plaques with calcifications. An assessment of community-acquired pneumonia made patient started on antibiotics per protocol admitted to regular nursing floor for further management 1. Pneumonia - Suspected to be secondary to streptococcal pneumonia, Blood and sputum cultures sent. Patient placed on Rocephin and Zithromax and placed on oxygen titrated to keep Pulse Ox greater than 90. Patient has significant leukocytosis response to therapy being monitored with daily CBC with differential ? 06/10/2024; currently off oxygen ? 06/11/2024; remains off oxygen ? 06/12/2024 de-escalated antibiotics with initiation of oral antibiotic 2. Hypertension ? Blood pressure controlled, home medications continued with dose adjustment as needed 3. Coronary artery disease ? With previous PCI. Patient remains on guideline directed medical therapy 4. Dyslipidemia ?Patient is on statin therapy, continued at home dose 5. Dementia with behavioral agitation ? Patient is on memantine as well as donepezil, did continue ? 06/10/2024; patient did experience urinary agitation necessitating initiation of Seroquel. 6. GERD ? Patient is on PPI 7. Chronic kidney disease stage III ? Kidney function appears to be close to baseline. Daily monitoring with BMP ordered 8. Hyperglycemia ? Patient is not a known diabetic ordered hemoglobin A1c 9. DVT prophylaxis ? On enoxaparin 10. Physical deconditioning ? Requested for PT OT eval and case management social worker to assist with discharge planning 11. Constipation ? Treated with MiraLAX 12. Hypokalemia -Corrected per protocol, repeat labs ordered for a.m. Time spent in the patient's overall evaluation,decision-making process, review of diagnostic data, adjustment of management, discussion with other providers, patient's , nursing nursing and ancillary staff involved in patient's care documentation, 36 minutes Charges/Coding Visit Charges Inpatient E&M: 27079 Subs Hosp L2
[2024-06-12] MEDS: Losartan Potassium 100 MG Tablet PO (09:31)
[2024-06-12] MEDS: Potassium Chloride Oral Tablet 20 MEQ 40 MEQ PO (09:31)
[2024-06-12] MEDS: Ascorbic Acid 500 MG Tablet PO (09:31)
[2024-06-12 09:32] VITALS: PULSE 81
[2024-06-12] MEDS: Metoprolol(XL)Succ 25 MG Tablet 75 MG PO (09:32)
[2024-06-12] MEDS: amLODIPine 10 MG Tablet PO (09:32)
[2024-06-12] MEDS: Cholecalciferol (VIT D3) 25 MCG TABLET (1,000 UNITS) PO (09:32)
[2024-06-12] MEDS: Enoxaparin 30 MG/0.3 ML Syringe SC (09:33)
[2024-06-12] MEDS: Tolterodine Tartrate 2 MG CAP.SA PO (09:34)
[2024-06-12] MEDS: Pantoprazole Sodium 40 MG Tablet PO (09:34)
[2024-06-12] MEDS: Aspirin E.C. 81 MG Tablet PO (09:34)
[2024-06-12] MEDS: Multivitamins,Therapeutic Tablet 1 TABLET PO (09:35)
[2024-06-12] MEDS: Memantine Hydrochloride 10 MG Tablet PO ×2 (09:35→19:34)
[2024-06-12 09:40] VITALS: BP 135/70; PULSE 81; RESP 19; TEMP 37; O2SAT 94
[2024-06-12] MEDS: levoFLOXacin IV 750 MG/150 ML BAG 100 MG IV (10:25)
[2024-06-12] MEDS: Potassium Chloride Oral Tablet 20 MEQ PO ×2 (10:25→16:26)
[2024-06-12] MEDS: 0.9% Saline Lock 10 ML Syringe IV (10:26)
[2024-06-12] MEDS: Polyethylene Glycol 3350 17 GM PACKET PO (16:26)
[2024-06-12 16:27] VITALS: BP 142/61; PULSE 77; RESP 18; TEMP 36.8; O2SAT 93
[2024-06-12 19:30] VITALS: BP 146/95; PULSE 84; RESP 16; TEMP 36.7; O2SAT 96
[2024-06-12] MEDS: Donepezil HCl 10 MG Tablet PO (19:34)
[2024-06-12] MEDS: QUEtiapine 25 MG Tablet PO (19:34)
[2024-06-12] MEDS: Pravastatin 80 MG Tablet PO (19:35)
[2024-06-12] MEDS: Haloperidol Lactate 5 MG/ML Vial 1 MG IM (22:41)
[2024-06-13 03:48] VITALS: BP 165/84; PULSE 88; RESP 18; TEMP 36.3; O2SAT 92
[2024-06-13 08:14] VITALS: BP 139/77; PULSE 88; RESP 14; TEMP 36.8; O2SAT 96
[2024-06-13 08:15] VITALS: RESP 14
--- NOTE | 2024-06-13 08:35 | PN.HOSP_ITS ---
Reason for Visit Reason for Visit: Diagnoses Elevated white blood cell count, unspecified (06/08/24) Pneumonia, unspecified organism (06/08/24) Dyspnea, unspecified (06/08/24) Subjective Subjective Feeling well. Breathing well. Objective Data Objective Data Vital Signs: Vital Signs Temp Pulse Resp BP Pulse Ox O2 Del Method 36.8 C 88 14 139/77 H 96 Room Air 06/13/24 08:14 06/13/24 08:14 06/13/24 08:15 06/13/24 08:14 06/13/24 08:14 06/13/24 08:15 Oxygen Delivery Method Room Air Weight: 95.9 kg Body Mass Index (BMI) 28.6 Intake & Output: Intake and Output for Last 24 Hours 06/11/24 06/12/24 06/13/24 23:59 23:59 23:59 Intake Total 700 / 700 690 / 690 300 / 300 Balance 700 / 700 690 / 690 300 / 300 Lab / Micro Data 06/12/24 06:00 06/12/24 06:00 Micro: Microbiology 06/08/24 18:35 Blood Culture (Wb) - Anticubital Right Blood Culture - Preliminary No growth in 48 hours. 06/08/24 15:48 Urine, Clean Catch Legionella Antigen - Final 06/08/24 15:48 Urine, Clean Catch Streptococcus pneumoniae Antigen (M - Final 06/08/24 16:43 Mucosa - Nose SARS-CoV-2, Influenza & RSV (PCR) - Final Physical Exam Const alert and no apparent distress HEENT head/scalp atraumatic and moist oral mucous membranes HEENT Narrative: up in chair Resp normal respiratory effort, no retractions, no use of accessory muscles and clear to auscultation bilaterally Cardio regular rate, regular rhythm, S1 normal heart sound and S2 normal heart sound Neuro Sensorium / Orientation: awake and alert Assessment & Plan Assessment/Plan (1) Leukocytosis: (2) Pneumonia: (3) Dyspnea: PLAN: Plan Suspected pneumococcal pneumonia * Blood culture, urinary antigens for Streptococcus and Legionella negative. * on levofloxacin, continue through the . Chronic conditions: * Hypertension: Continue losartan, metoprolol succinate * Coronary artery disease: With previous PCI. Continue with aspirin and pravastatin. * Dementia: Unclear type. Patient did required initiation of quetiapine. Continue with memantine and donezepil * GERD: Continue with PPI VTE prophylaxis: enoxaparin Disposition: to SNF
[2024-06-13] MEDS: Potassium Chloride Oral Tablet 20 MEQ PO ×2 (08:41→17:13)
[2024-06-13 08:42] VITALS: BP 139/77; PULSE 88
[2024-06-13] MEDS: Multivitamins,Therapeutic Tablet 1 TABLET PO (08:42)
[2024-06-13] MEDS: amLODIPine 10 MG Tablet PO (08:42)
[2024-06-13] MEDS: Metoprolol(XL)Succ 25 MG Tablet 75 MG PO (08:42)
[2024-06-13] MEDS: Ascorbic Acid 500 MG Tablet PO (08:42)
[2024-06-13] MEDS: Tolterodine Tartrate 2 MG CAP.SA PO (08:42)
[2024-06-13] MEDS: Memantine Hydrochloride 10 MG Tablet PO (08:43)
[2024-06-13] MEDS: Aspirin E.C. 81 MG Tablet PO (08:43)
[2024-06-13] MEDS: Pantoprazole Sodium 40 MG Tablet PO (08:43)
[2024-06-13] MEDS: Losartan Potassium 100 MG Tablet PO (08:43)
[2024-06-13] MEDS: Cholecalciferol (VIT D3) 25 MCG TABLET (1,000 UNITS) PO (08:43)
[2024-06-13] MEDS: levoFLOXacin IV 750 MG/150 ML BAG 100 MG IV (10:14)
[2024-06-13] MEDS: 0.9% Saline Lock 10 ML Syringe IV (10:14)
[2024-06-13] MEDS: Enoxaparin 40 MG/0.4 ML Syringe SC (10:14)
--- NOTE | 2024-06-13 11:23 | TREXTCAR_ITS ---
Diet Diet Order/Speech Therapy: 06/09/24 00:05 Diet: Cardiac - Heart Healthy Diet Comments: deliver tray to desk- pt needs set up to eat, please cut up meats Therapies Physical Therapy: Eval and Treat Occupational Therapy: Eval and Treat Problem/Diagnosis (1) Leukocytosis: Status: Acute Code(s): D72.829 - Elevated white blood cell count, unspecified (2) Pneumonia: Status: Acute Code(s): J18.9 - Pneumonia, unspecified organism (3) Dyspnea: Status: Acute Code(s): R06.00 - Dyspnea, unspecified Plan Suspected pneumococcal pneumonia * Blood culture, urinary antigens for Streptococcus and Legionella negative. * on levofloxacin, continue through the . Chronic conditions: * Hypertension: Continue losartan, metoprolol succinate * Coronary artery disease: With previous PCI. Continue with aspirin and pravastatin. * Dementia: Unclear type. Patient did required initiation of quetiapine. Continue with memantine and donezepil * GERD: Continue with PPI VTE prophylaxis: enoxaparin Disposition: to SNF Allergies/Procedures Done in Hospital Allergies atorvastatin (From Lipitor) Allergy (Verified 06/08/24 15:20) PT UNSURE OF REACTION azithromycin (From Zithromax) Allergy (Verified 06/08/24 15:20) Itching Beta-Blockers (Beta-Adrenergic Bloc Allergy (Verified 06/08/24 15:20) NEEDS FOLLOW-UP sildenafil (From Viagra) Allergy (Verified 06/08/24 15:20) PT UNSURE OF REACTION Lfsadcq-YUE-IbG Reductase Inhibitor (Znmtmvh-Vqj-Sze Reductase Inhibitor) Allergy (Verified 06/08/24 15:20) Other ezetimibe (From Zetia) Adverse Reaction (Verified 06/08/24 15:20) PT UNSURE OF REACTION mental status change Procedures: None Type of Care/Length of Stay Estimated LOS: Convalescent Care Less Than 30 days Type of Care Needed: Skilled Rehab Potential: Fair Prognosis: Good Additional Orders/Day of Discharge Day of Discharge: 06/13/24 Discharge Plan Admission Admit Date/Time: 06/08/24 18:41 Primary Reason for Your Visit: pneumonia Attending Provider: Atif Bonilla Primary Care Provider: Adama Jon Consulting Providers: Donna Villavicencio; Calvin Tomas Discharge Orders/Prescriptions Prescriptions: New quetiapine 25 mg Tablet 25 mg PO QHS Qty: 0 0RF levofloxacin 750 mg tablet 750 mg PO DAILY Qty: 3 0RF Continued amlodipine 10 mg tablet 10 mg PO DAILY cinnamon bark 500 mg capsule 500 mg PO DAILY pantoprazole 40 mg tablet,delayed release (DR/EC) 40 mg PO DAILY donepezil 10 mg tablet 10 mg PO QHS nitroglycerin 0.4 mg tablet, sublingual 0.4 mg SUBLINGUAL Q5-15M PRN (Reason: Cardiac/Chest Pain) Rx Instructions: do not exceed 3 doses per episode ascorbate calcium (vitamin C) 500 mg tablet 500 mg PO DAILY alpha lipoic acid 200 mg capsule 200 mg PO DAILY cholecalciferol (vitamin D3) 25 mcg (1,000 unit) capsule 25 mcg PO DAILY multivitamin 1 TABLET tablet 1 tab PO DAILY metoprolol succinate 50 MG tablet extended release 24 hr 75 mg PO DAILY pravastatin 80 MG tablet 80 mg PO QHS Patient Comments: losartan 100 MG tablet 100 mg PO DAILY Qty: 0 0RF Rx Instructions: Hold if systolic blood pressure less than 110 mmHg solifenacin 5 MG tablet 5 mg PO DAILY aspirin 81 mg tablet,delayed release (DR/EC) 81 mg PO DAILY memantine 10 mg tablet 10 mg PO BID Referrals / Follow Up: Adama Jon MD [Primary Care Provider] - Disposition Disposition (needs filled in before D/C Order can be placed): [facility]
--- NOTE | 2024-06-13 11:29 | DS.PCM_ITS ---
Providers Date of Admission: 06/08/24 Primary Care Physician: Dr. Adama Jon MD Reason For Visit: COMMUNITY ACQUIRED PNEUMONIA, WEAKNESS Diagnosis Discharge Diagnosis (1) Leukocytosis: Status: Acute Code(s): D72.829 - Elevated white blood cell count, unspecified (2) Pneumonia: Status: Acute Code(s): J18.9 - Pneumonia, unspecified organism (3) Dyspnea: Status: Acute Code(s): R06.00 - Dyspnea, unspecified Plan Suspected pneumococcal pneumonia * Blood culture, urinary antigens for Streptococcus and Legionella negative. * on levofloxacin, continue through the . Chronic conditions: * Hypertension: Continue losartan, metoprolol succinate * Coronary artery disease: With previous PCI. Continue with aspirin and pravastatin. * Dementia: Unclear type. Patient did required initiation of quetiapine. Continue with memantine and donezepil * GERD: Continue with PPI VTE prophylaxis: enoxaparin Disposition: to SNF Medications at Discharge Home Medications multivitamin 1 tab PO DAILY vitamin 10/04/13 metoprolol succinate 50 mg tablet,extended release 24 hr 75 mg PO DAILY bp 02/10/18 pravastatin 80 mg tablet 80 mg PO QHS cholesterol 02/10/18 losartan 100 mg tablet 100 mg PO DAILY bp ##0 02/12/18 solifenacin 5 mg tablet 5 mg PO DAILY overactive bladder 08/17/20 amlodipine 10 mg tablet 10 mg PO DAILY bp 09/11/20 cinnamon bark 500 mg capsule 500 mg PO DAILY supplement 09/11/20 donepezil 10 mg tablet 10 mg PO QHS memory 09/11/20 nitroglycerin 0.4 mg sublingual tablet 0.4 mg sublingual Q5-15M PRN Cardiac/Chest Pain 09/11/20 pantoprazole 40 mg tablet,delayed release 40 mg PO DAILY stomach 09/11/20 alpha lipoic acid 200 mg capsule 200 mg PO DAILY see 09/12/21 ascorbate calcium (vitamin C) 500 mg tablet 500 mg PO DAILY supplement 09/12/21 cholecalciferol (vitamin D3) 25 mcg (1,000 unit) capsule 25 mcg PO DAILY supplement 04/28/24 aspirin 81 mg tablet,delayed release 81 mg PO DAILY blood thinner 06/08/24 memantine 10 mg tablet 10 mg PO BID memory 06/08/24 levofloxacin 750 mg tablet 750 mg PO DAILY #3 tabs 06/13/24 quetiapine 25 mg tablet 25 mg PO QHS #0 tabs 06/13/24 Hospital Course Operations None Procedures None Summary of Care Provided Minutes Spent on Discharge: 32 Weight / BMI Weight Weight: 95.9 kg Body Mass Index (BMI) 28.6 ABG / Lab / Microbiology Data 06/12/24 06:00 06/12/24 06:00 Microbiology: Microbiology 06/08/24 18:35 Blood Culture (Wb) - Anticubital Right Blood Culture - Preliminary No growth in 48 hours. 06/08/24 15:48 Urine, Clean Catch Legionella Antigen - Final 06/08/24 15:48 Urine, Clean Catch Streptococcus pneumoniae Antigen (M - Final 06/08/24 16:43 Mucosa - Nose SARS-CoV-2, Influenza & RSV (PCR) - Final Meaningful Use Info Meaningful Use Meaningful Use Diagnoses (Choose all that apply): None applicable Ischemic Stroke Statin Dosing Therapy Reference: STATIN DOSE THERAPY REFERENCE: * Patients > 75 years receive moderate or high dose statin therapy. * Patients 75 years or YOUNGER should receive HIGH intensity statin dose unless contraindicated. You will be required to document reason for non-treatment if statin daily dose does not meet guidelines. HIGH DOSE STATIN THERAPY DAILY Atorvastatin > than or = to 40 mg Rosuvastatin > than or = to 20 mg Amlodipine + Atorvastatin > than or = to 2.5/40 mg Ezetimibe + Simvastatin 10/80 mg Simvastatin 80mg Discharge Plan Admission Admit Date/Time: 06/08/24 18:41 Primary Reason for Your Visit: pneumonia Attending Provider: Atif Bonilla Primary Care Provider: Adama Jon Consulting Providers: Donna Villavicencio; Calvin Tomas Discharge Orders/Prescriptions Prescriptions: New quetiapine 25 mg Tablet 25 mg PO QHS Qty: 0 0RF levofloxacin 750 mg tablet 750 mg PO DAILY Qty: 3 0RF Continued amlodipine 10 mg tablet 10 mg PO DAILY cinnamon bark 500 mg capsule 500 mg PO DAILY pantoprazole 40 mg tablet,delayed release (DR/EC) 40 mg PO DAILY donepezil 10 mg tablet 10 mg PO QHS nitroglycerin 0.4 mg tablet, sublingual 0.4 mg SUBLINGUAL Q5-15M PRN (Reason: Cardiac/Chest Pain) Rx Instructions: do not exceed 3 doses per episode ascorbate calcium (vitamin C) 500 mg tablet 500 mg PO DAILY alpha lipoic acid 200 mg capsule 200 mg PO DAILY cholecalciferol (vitamin D3) 25 mcg (1,000 unit) capsule 25 mcg PO DAILY multivitamin 1 TABLET tablet 1 tab PO DAILY metoprolol succinate 50 MG tablet extended release 24 hr 75 mg PO DAILY pravastatin 80 MG tablet 80 mg PO QHS Patient Comments: losartan 100 MG tablet 100 mg PO DAILY Qty: 0 0RF Rx Instructions: Hold if systolic blood pressure less than 110 mmHg solifenacin 5 MG tablet 5 mg PO DAILY aspirin 81 mg tablet,delayed release (DR/EC) 81 mg PO DAILY memantine 10 mg tablet 10 mg PO BID Referrals / Follow Up: Adama Jon MD [Primary Care Provider] - Disposition Disposition (needs filled in before D/C Order can be placed[facility] Charges/Coding Visit Charges Inpatient E&M: 27568 Disch Hosp >30min
--- NOTE | 2024-06-13 11:47 | PHA.DC.MR.R ---
Pharmacy [facility] Med Reconciliation Pharmacy Service has performed discharge medication reconciliation for this patient. The patient's discharge medication list was reviewed for discrepancies and discrepancies were resolved. Medications at Discharge Home Medications multivitamin 1 tab PO DAILY vitamin 10/04/13 metoprolol succinate 50 mg tablet,extended release 24 hr 75 mg PO DAILY bp 02/10/18 pravastatin 80 mg tablet 80 mg PO QHS cholesterol 02/10/18 losartan 100 mg tablet 100 mg PO DAILY bp ##0 02/12/18 solifenacin 5 mg tablet 5 mg PO DAILY overactive bladder 08/17/20 amlodipine 10 mg tablet 10 mg PO DAILY bp 09/11/20 cinnamon bark 500 mg capsule 500 mg PO DAILY supplement 09/11/20 donepezil 10 mg tablet 10 mg PO QHS memory 09/11/20 nitroglycerin 0.4 mg sublingual tablet 0.4 mg sublingual Q5-15M PRN Cardiac/Chest Pain 09/11/20 pantoprazole 40 mg tablet,delayed release 40 mg PO DAILY stomach 09/11/20 alpha lipoic acid 200 mg capsule 200 mg PO DAILY see md 09/12/21 ascorbate calcium (vitamin C) 500 mg tablet 500 mg PO DAILY supplement 09/12/21 cholecalciferol (vitamin D3) 25 mcg (1,000 unit) capsule 25 mcg PO DAILY supplement 04/28/24 aspirin 81 mg tablet,delayed release 81 mg PO DAILY blood thinner 06/08/24 memantine 10 mg tablet 10 mg PO BID memory 06/08/24 levofloxacin 750 mg tablet 750 mg PO DAILY #3 tabs 06/13/24 quetiapine 25 mg tablet 25 mg PO QHS #0 tabs 06/13/24
--- NOTE | 2024-06-13 12:21 | CASEMGMT ---
Social Work- SW spoke spoke with pt to report referral declination. Pt reports she is sick with temperature and cannot come visit. SW encouraged pt that we need additional choices and provided education on process. Pt will orange picker a copy of SNF list, as she reports that original is misplaced. SW encouraged that we need additional choices today, as pt is medically ready for d/c. Pt will call SW with additional choices after speaking with son this afternoon. SW remains available to follow. BARBRA Miller
--- NOTE | 2024-06-13 13:13 | CASEMGMT ---
Per clinical secretary, pt is at central registration requesting SNF options to be faxed to [phone]. Faxed at this time.
--- NOTE | 2024-06-13 14:21 | CASEMGMT ---
Social Work- SW spoke with Mildred who states she and her son collaborated on discharge plans for pt and it was decided that pt would d/c to pt son's home in [place]. Pt and pt will live with son for as long as needed. Pt reports that there is a first floor living space with no stairs that pt and will stay in. Pt son is home all day and teri to assist with pt as needed. Physician and bedside nurse advised. Plan: d/c to pt son home BARBRA Miller
[2024-06-13 14:37] VITALS: BP 129/65; PULSE 83; RESP 16; TEMP 36.4; O2SAT 100
--- NOTE | 2024-06-13 14:39 | CASEMGMT ---
RN LOGAN made aware pt is dc'ing to pt son's home in [place]. TC to pt , discussed dc planning. She denies any need for HHC. She states her son lives in a 5 bedroom house and he is a pastry chef. He is quite capable of taking care of pt. Pt denies any dc needs at this time.
== END 2024-06-13 17:46 | disposition home or self-care (01) | DRG 194 ==
LOC: ED 18:16 → MS3 06-09 00:28
PROVIDERS: Internal Medicine; Admitting Provider Student in an Organized Health Care Education/Training Program; Emergency Provider Emergency Medicine; PCP Family Medicine; Referring Provider Emergency Medicine
DX: J13 Pneumonia due to Streptococcus pneumoniae (principal); F03.911 Unspecified dementia, unspecified severity, with agitation; J94.8 Other specified pleural conditions; N18.30 Chronic kidney disease, stage 3 unspecified; I12.9 Hypertensive chronic kidney disease with stage 1 through stage 4 chronic kidney disease, or unspecified chronic kidney disease; E78.5 Hyperlipidemia, unspecified; I25.10 Atherosclerotic heart disease of native coronary artery without angina pectoris; K21.9 Gastro-esophageal reflux disease without esophagitis; E87.6 Hypokalemia; I25.2 Old myocardial infarction; K59.00 Constipation, unspecified; R32 Unspecified urinary incontinence; R73.9 Hyperglycemia, unspecified; Z11.52 Encounter for screening for COVID-19; Z79.899 Other long term (current) drug therapy; Z87.891 Personal history of nicotine dependence; Z86.73 Personal history of transient ischemic attack (TIA), and cerebral infarction without residual deficits; Z95.5 Presence of coronary angioplasty implant and graft
CPT/HCPCS: 36415; 71045; 74177; 80048; 81001; 83735; 84100; 85025; 87040; 87449; 87631; 94640; 94668; 97116; 97161; 97166; 97530; 99284; J7050; Q9967; A4216

== ENCOUNTER 2024-09-21 00:56 | Emergency (ER) | payer MEDICARE, OTHER, SELFPAY ==
[2024-09-21] VITALS (7 sets, daily range): BP systolic 107–171; BP diastolic 72–86; PULSE 68–82; RESP 12–21; TEMP 36.6–36.9; O2SAT 96–100; BMI 27.5
--- NOTE | 2024-09-21 01:17 | RAD_ITS ---
EXAM: XR CHEST, 2 VIEWS CLINICAL INDICATION: confusion TECHNIQUE: Frontal and lateral views of the chest. COMPARISON: Previous chest radiographs of 06/08/2024 and 09/26/2023. FINDINGS: LUNGS AND PLEURAL SPACES: Patchy airspace disease previously seen within the right midlung has resolved. There is less patchy density within the right upper lobe as compared to the prior study, and the residual patchy density in this region could be due to calcified pleural plaques and/or partially resolved pneumonia. Chronic pleural-parenchymal scarring noted right lung base, partially obscuring the right hemidiaphragm, unchanged since 09/26. No acute infiltrates are noted on the left. No pneumothorax or pleural effusion. HEART: Heart size is borderline enlarged with normal pulmonary vasculature. MEDIASTINUM: Stable minimal elongation of the thoracic aorta. BONES/JOINTS: Thoracic dextroscoliosis and degenerative spurring again noted. No acute fracture. SOFT TISSUES: Unremarkable. RAD/Chest PA and Lateral IMPRESSION: Chronic right basilar pleural parenchymal scarring. Near complete resolution of the patchy density previously seen within the right mid to upper lung, indicating improving pneumonia; the residual patchy densities in the right upper lobe could be due to a small amount of pneumonia which has incompletely resolved and/or calcified pleural plaque. Electronically Signed: Porfirio Hernandez MD at 3:19 EST ,
--- NOTE | 2024-09-21 01:17 | CT_ITS ---
EXAM: CT HEAD WITHOUT INTRAVENOUS CONTRAST CLINICAL INDICATION: confusion TECHNIQUE: Multiple axial images were obtained of the head without intravenous contrast. This CT exam was performed using one or more of the following dose reduction techniques: automated exposure control, adjustment of the mA and/or kV according to patient size, and/or use of iterative reconstruction technique. RADIATION DOSE: Total DLP: 846.73 mGy-cm. COMPARISON: Nonenhanced cranial CT of 09/26/2023. FINDINGS: BRAIN AND EXTRA-AXIAL SPACES: Findings of moderate atrophy again noted with prominence of the cortical sulci, basal cisterns, sylvian fissures and ventricles. Mild-moderate patchy chronic small vessel ischemic changes are again noted within the deep white matter tracts. No intra- or extra-axial hemorrhage. No intracranial mass or mass effect. Posterior fossa structures are unremarkable. Lind-white matter differentiation is preserved. BONES/JOINTS: Unremarkable. No discrete lytic or blastic abnormalities. VASCULATURE: Atherosclerotic vascular calcification is present. The middle cerebral arteries are not hyperdense. SINUSES: Unremarkable as visualized. Clear. MASTOID AIR CELLS: Unremarkable. Clear. ORBITS: Visualized globes, extraocular muscles, optic nerves and retrobulbar fat appear unremarkable. CT/Brain/Head without Contrast IMPRESSION: No significant interval change. Atrophy and chronic small vessel ischemic changes again noted. No acute findings in the head/brain. Electronically Signed: Porfirio Hernandez MD at 2:55 EST ,
--- NOTE | 2024-09-21 01:17 | EKG12_ITS ---
Test Reason : Blood Pressure : */* mmHG Vent. Rate : 68 BPM Atrial Rate : 68 BPM P-R Int : 206 ms QRS Dur : 78 ms QT Int : 388 ms P-R-T Axes : 23 35 37 degrees QTcB Int : 412 ms Normal sinus rhythm Normal ECG Confirmed by PEARL LANTIGUA, AUSTIN ([id number]), publishing editor SALINAS RAM ([id number]) on 09/22/2024 10:57:00 AM Referred By: Confirmed By: AUSTIN KANG MD
--- NOTE | 2024-09-21 01:18 | EDS_ITS ---
HPI History of Present Illness Chief Complaint: Alt LOC Informant: patient and EMS Narrative Narrative: Brought in by EMS reported altered mental status. Patient history of dementia on medications. Also hypertension, hyperlipidemia. Patient reports son called the ambulance. Patient denies headache cough chest pains abdominal pain. Denies urinary symptoms. Denies vomiting diarrhea. Currently no family is here for discussion. [facility] Medical History Dementia Abnormal nuclear stress test Obesity Old inferior wall myocardial infarction OAB (overactive bladder) Obstructive sleep apnea Rosacea Actinic keratoses Anemia Abdominal aortic aneurysm (AAA) Atherosclerotic heart disease of [place] coronary artery without angina pectoris Ischemic cerebrovascular accident (CVA) (02/10/18) Essential (primary) hypertension Dementia GERD (gastroesophageal reflux disease) HLD (hyperlipidemia) Prostate cancer Home Medications ?Medication ?Instructions ?Recorded ?Last Taken ?Type multivitamin 1 tab PO DAILY vitamin 10/04/13 02/09/18 History metoprolol succinate 50 mg 75 mg PO DAILY bp 02/10/18 10/15/20 History tablet,extended release 24 hr pravastatin 80 mg tablet 80 mg PO QHS cholesterol 02/10/18 02/09/18 History losartan 100 mg tablet 100 mg PO DAILY bp ##0 02/12/18 10/15/20 Rx solifenacin 5 mg tablet 5 mg PO DAILY overactive bladder 08/17/20 Unknown History amlodipine 10 mg tablet 10 mg PO DAILY bp 09/11/20 10/15/20 History cinnamon bark 500 mg capsule 500 mg PO DAILY supplement 09/11/20 Unknown History donepezil 10 mg tablet 10 mg PO QHS memory 09/11/20 Unknown History nitroglycerin 0.4 mg sublingual 0.4 mg sublingual Q5-15M PRN 09/11/20 Unknown History tablet Cardiac/Chest Pain pantoprazole 40 mg tablet,delayed 40 mg PO DAILY stomach 09/11/20 Unknown History release alpha lipoic acid 200 mg capsule 200 mg PO DAILY see 09/12/21 Unknown History ascorbate calcium (vitamin C) 500 500 mg PO DAILY supplement 09/12/21 Unknown History mg tablet cholecalciferol (vitamin D3) 25 25 mcg PO DAILY supplement 04/28/24 Unknown History mcg (1,000 unit) capsule aspirin 81 mg tablet,delayed 81 mg PO DAILY blood thinner 06/08/24 Unknown History release memantine 10 mg tablet 10 mg PO BID memory 06/08/24 Unknown History levofloxacin 750 mg tablet 750 mg PO DAILY #3 tabs 06/13/24 Unknown Rx quetiapine 25 mg tablet (Seroquel) 25 mg PO QHS #30 tabs 06/13/24 Unknown Rx Allergy/AdvReac Type Severity Reaction Status Date / Time atorvastatin (From Lipitor) Allergy PT UNSURE Verified 09/21/24 00:57 OF REACTION azithromycin (From Zithromax) Allergy Itching Verified 09/21/24 00:57 Beta-Blockers Allergy NEEDS Verified 09/21/24 00:57 (Beta-Adrenergic Bloc FOLLOW-UP sildenafil (From Viagra) Allergy PT UNSURE Verified 09/21/24 00:57 OF REACTION Omclcsz-YOJ-DfY Reductase Allergy Other Verified 09/21/24 00:57 Inhibitor (Auvdhqm-Jmg-Mav Reductase Inhibitor) ezetimibe (From Zetia) AdvReac PT UNSURE Verified 09/21/24 00:57 OF REACTION Family History Sister CAD (coronary artery disease) Mother CAD (coronary artery disease) Father Colon cancer Brother CAD (coronary artery disease) Surgical History History of left heart catheterization (10/15/20) History of herniorrhaphy History of coronary artery stent placement (10/07/13) Social History Smoking Status: Current every day smoker tobacco type: cigarettes alcohol intake: never substance use type: does not use caffeine: Yes Type: coffee Number of servings: 3 ROS ROS ED Constitutional Constitutional ED: Denies chills, fever(s) or sweats ENT ENT ED: Denies sore throat Cardiovascular Cardiovascular: Denies chest pain Respiratory/Chest Respiratory/Chest: Denies cough Gastrointestinal Gastrointestinal: Denies abdominal pain, diarrhea, nausea or vomiting Genitourinary Genitourinary ED: Denies dysuria Musculoskeletal Musculoskeletal: Denies back pain or extremity pain Neurologic Neurologic: Denies headache(s) EXAM Physical Exam Const Vital Signs: 09/21/24 00:58 09/21/24 02:08 09/21/24 02:18 Temperature 98 F Temperature Source Oral Pulse Rate 74 68 73 Respiratory Rate 16 12 16 Blood Pressure 168/72 H Blood Pressure Mean 104 Pulse Ox 100 99 96 Oxygen Delivery Method Room Air 09/21/24 02:30 09/21/24 02:45 09/21/24 03:00 Temperature Temperature Source Pulse Rate 74 78 82 Respiratory Rate 16 21 H 18 Blood Pressure 171/85 H Blood Pressure Mean 110 Pulse Ox 98 98 Oxygen Delivery Method Room Air 09/21/24 04:14 Temperature 98.5 F Temperature Source Pulse Rate 80 Respiratory Rate 18 Blood Pressure 107/86 H Blood Pressure Mean 93 Pulse Ox 98 Oxygen Delivery Method Positive well nourished and well developed Constitutional Narrative: Nontoxic following commands. General Appearance ED: well developed and NAD HEENT Reports moist mucous membranes normocephalic and atraumatic Eyes General Eye ED: Yes normal appearance of both eyes Neck full ROM Chest Wall Chest: Negative for tenderness Resp normal respiratory effort and normal air movement Effort and Inspection: symmetric chest movement; Negative for respiratory distress Cardio regular rate, regular rhythm and no murmurs Peripheral Pulses: pulses 2+ throughout GI normal to inspection, nondistended, normoactive bowel sounds and non-tender Palpation: Negative for guarding or rebound tenderness present Extremity normal to inspection General Extremety ED: Negative for edema or tenderness General Extremity: Negative for edema Neuro no sensory deficits noted Neuro Narrative: Alert to person and place. Cannot tell me the year. No focal deficit on exam. Sensorium / Orientation: awake and alert Skin no rashes or lesions noted and no wounds MDM MDM MDM Narrative Medical decision making narrative: Interventions / MDM: Differential diagnosis: Dementia, sundowning Diagnosis considered but do not suspect: Infectious causes however workup negative. Intracranial hemorrhage however CT negative. My EKG interpretation: Sinus rate of 68, no ST or T wave changes. Imaging independently reviewed and interpreted by myself: CT brain: No acute process. Two-view chest x-ray: resolved pneumonia from previous. External documents reviewed: N/A Test considered but not ordered:N/A ED course: Vital stable nontoxic. Alert and oriented person place. History of dementia unclear baseline at this time. He is moving all extremities no focal deficits. With reported altered mental status will check CT head chest x-ray labs and urine. Patient's workup negative with image studies labs and urine. I did speak with patient's son who is in department, Tim, reported conferences dementia history. Patient's current spouse is in the hospital. Patient has had dementia at least 5 years. I discussed likely with his dementia history. Son and his sister will need to discuss with each other long-term care for patient. Currently with negative workup, son can continue to be at the home monitoring his father. He has been there since this past Thursday. Patient discharged home with son. They will contact patient's PCP if more care or alternative plans need to be made. Re-evaluation: stable Disposition discussed with patient/family/significant other: Family Case discussed with consulting clinician: N/A This note was generated with [employer] dictation software. It may contain incorrect words, spelling, and punctuation that were not noted in checking the note before signing. Lab Data Attestation: I reviewed the patient's lab results. Labs: Laboratory Results - last 24 hr 09/21/24 09/21/24 01:28 03:35 WBC 9.5 RBC 4.47 L Hgb 13.4 Hct 40.0 MCV 89.5 MCH 30.0 MCHC 33.5 RDW Std Deviation 44.7 H RDW Coeff of Sami 13.7 Plt Count 194 MPV 9.9 Immature Gran % (Auto) 0.400 Neut % (Auto) 69.8 Lymph % (Auto) 16.0 L [place] % (Auto) 11.6 H Eos % (Auto) 1.9 Baso % (Auto) 0.3 Absolute Neuts (auto) 6.6 Absolute Lymphs (auto) 1.52 Nucleated RBC % 0 Sodium 142 Potassium 3.7 Chloride 112 H Carbon Dioxide 26.0 Anion Gap 4 L BUN 22 H Creatinine 1.23 Estim Creat Clear Calc 51.70 Est GFR (MDRD) Af Amer 73 Est GFR (MDRD) Non-Af 60 BUN/Creatinine Ratio 17.9 Glucose 118 H Calcium 8.9 Total Bilirubin 0.40 AST 14 L ALT 20 Alkaline Phosphatase 84 Total Protein 6.8 Albumin 3.0 L Globulin 3.8 Albumin/Globulin Ratio 0.8 L Urine Color Yellow Urine Clarity Clear Urine pH 6.5 Ur Specific [place] 1.010 Urine Protein 15 H Urine Glucose (UA) Normal Urine Ketones Negative Urine Occult Blood Negative Urine Nitrite Negative Urine Bilirubin Negative Urine Urobilinogen Normal Ur Leukocyte Esterase Negative Urine RBC 0 SEEN Urine WBC 0 SEEN Ur Squamous Epith Cells 0-5 SEEN Urine Bacteria 0 SEEN Urine Mucus 0 SEEN Radiography Diagnostic Testing: Clinical Impression(s) from Imaging Studies Brain CT 09/21/24 01:17 IMPRESSION: No significant interval change. Atrophy and chronic small vessel ischemic changes again noted. No acute findings in the head/brain. Electronically Signed: Porfirio Hernandez MD at 2:55 EST , Chest X-Ray 09/21/24 01:17 IMPRESSION: Chronic right basilar pleural parenchymal scarring. Near complete resolution of the patchy density previously seen within the right mid to upper lung, indicating improving pneumonia; the residual patchy densities in the right upper lobe could be due to a small amount of pneumonia which has incompletely resolved and/or calcified pleural plaque. Electronically Signed: Porfirio Hernandez MD at 3:19 EST , Discharge Plan Triage Chief Complaint: Alt LOC ED Provider: Fish Burnette Dx/Rx/DC Orders Clinical Impression: Dementia, SunDown syndrome Instructions: Dementia Caregiver Tips, Dementia Caregivers Plan Future, ED CAREGIVER SUPPORT for DEMENTIA Prescriptions: No Action amlodipine 10 mg tablet 10 mg PO DAILY cinnamon bark 500 mg capsule 500 mg PO DAILY pantoprazole 40 mg tablet,delayed release (DR/EC) 40 mg PO DAILY donepezil 10 mg tablet 10 mg PO QHS nitroglycerin 0.4 mg tablet, sublingual 0.4 mg SUBLINGUAL Q5-15M PRN (Reason: Cardiac/Chest Pain) Rx Instructions: do not exceed 3 doses per episode ascorbate calcium (vitamin C) 500 mg tablet 500 mg PO DAILY alpha lipoic acid 200 mg capsule 200 mg PO DAILY cholecalciferol (vitamin D3) 25 mcg (1,000 unit) capsule 25 mcg PO DAILY multivitamin 1 TABLET tablet 1 tab PO DAILY metoprolol succinate 50 MG tablet extended release 24 hr 75 mg PO DAILY pravastatin 80 MG tablet 80 mg PO QHS Patient Comments: losartan 100 MG tablet 100 mg PO DAILY Qty: 0 0RF Rx Instructions: Hold if systolic blood pressure less than 110 mmHg solifenacin 5 MG tablet 5 mg PO DAILY aspirin 81 mg tablet,delayed release (DR/EC) 81 mg PO DAILY memantine 10 mg tablet 10 mg PO BID quetiapine [Seroquel] 25 mg tablet 25 mg PO QHS Qty: 30 0RF levofloxacin 750 mg tablet 750 mg PO DAILY Qty: 3 0RF Primary Care Provider: Adama Jon Referrals: Adama Jon MD [Primary Care Provider] - 3-5 Days Activity Restrictions/Additional Instructions: CT brain negative. Chest x-ray negative. Labs normal. Urine negative. COVID, flu, RSV negative. Follow-up with your doctor. Print Language: Telugu Disposition Disposition: Home, Self Care Discharge Date/Time: 09/21/24 04:20
[2024-09-21 01:35] LABS: Absolute Lymphocyte Count 1.52 X10^3/uL (0.83-4.51); Absolute Neutrophil Count 6.6 X10^3/uL (2.0-7.7); Basophil# 0.03 X10^3/uL; Basophil% 0.3 % (0-1); Eosinophil# 0.18 X10^3/uL; Eosinophils% 1.9 % (0-5); Hemoglobin 13.4 g/dL (13.0-16.5); Lymphocyte # 1.52 X10^3/ul (0.83-4.51); Mean Corp Hgb Conc 33.5 g/dL (32-36); Mean Corpuscular Volume 89.5 fL (80-94); Mean Platelet Vol. 9.9 fl (6.2-12.0); Monocyte% 11.6 % (0-10); NRBC Flagged by Analyzer 0 % (0-5); Neutrophil # 6.62 X10^3/uL (2.7-7.7); Neutrophil % 69.8 % (47-70); Platelet Count 194 K/mm3 (150-450); RBC Distribution Width CV 13.7 % (11.6-14.6); RBC Distribution Width SD 44.7 fl (35.1-43.9); Red Blood Count 4.47 M/mm3 (4.6-6.2); White Blood Count 9.5 K/mm3 (4.4-11.0)
[2024-09-21 01:52] LABS: ALB/GLOB Ratio 0.8 RATIO (0.9-2.4); AST(SGOT) 14 U/L (15-37); Alanine Aminotransfer ALT/SGPT 20 U/L (16-61); Alkaline Phosphatase 84 U/L (45-117); Anion Gap 4 (5-15); BUN 22 mg/dL (7-18); BUN/Creat Ratio 17.9 RATIO (10-20); Calcium,Total 8.9 mg/dL (8.5-10.1); Chloride 112 mmol/L (98-107); Creatinine, Serum 1.23 mg/dL (0.70-1.30); EST Glomerular Filtration Rate 60 mL/min (>60); Est Glom Filt Rate - Afr Amer 73 mL/min (>60); Globulin 3.8 g/dL (2.2-4.2); Glucose 118 mg/dL (74-106); Potassium 3.7 mmol/L (3.5-5.1); Protein, Total 6.8 g/dL (6.4-8.2); Sodium Level 142 mmol/L (136-145)
[2024-09-21 03:43] LABS: Bacteria 0 SEEN /hpf (None Seen); Mucous, Urine 0 SEEN /hpf (<or=2+); Red Blood Cells-Urine 0 SEEN /hpf (0-5); White Blood Cells 0 SEEN /hpf (0-5)
[2024-09-21 03:45] LABS: Color, Urine Yellow (Yellow); Glucose, Dipstick Normal (Normal); Ketone-Dipstick Negative (Negative); Leukocyte Esterase-Dipstick Negative /ul (Negative); Nitrite-Dipstick Negative (Negative); Occult Blood-Urine Negative /ul (Negative); Protein-Dipstick 15 mg/dl (Negative); Urine Bilirubin Dipstick Negative (Negative); Urine Clarity Clear (Clear); Urine Urobilinogen Normal (Normal); Urine pH 6.5 (5.0 - 8.0)
[2024-09-21 03:56] LABS: Squamous Epithelial Cells - UA 0-5 SEEN /hpf (0-5)
== END 2024-09-21 04:20 | disposition home or self-care (01) ==
PROVIDERS: Emergency Provider Emergency Medicine; PCP Family Medicine; Visit Provider Emergency Medicine
DX: F03.90 Unspecified dementia, unspecified severity, without behavioral disturbance, psychotic disturbance, mood disturbance, and anxiety (principal); F05 Delirium due to known physiological condition; I10 Essential (primary) hypertension; I25.2 Old myocardial infarction; I71.40 Abdominal aortic aneurysm, without rupture, unspecified; I25.10 Atherosclerotic heart disease of native coronary artery without angina pectoris; K21.9 Gastro-esophageal reflux disease without esophagitis; L71.9 Rosacea, unspecified; E78.5 Hyperlipidemia, unspecified; N32.81 Overactive bladder; G47.33 Obstructive sleep apnea (adult) (pediatric); F17.210 Nicotine dependence, cigarettes, uncomplicated; Z95.5 Presence of coronary angioplasty implant and graft; Z88.1 Allergy status to other antibiotic agents; Z85.46 Personal history of malignant neoplasm of prostate; Z86.73 Personal history of transient ischemic attack (TIA), and cerebral infarction without residual deficits; Z79.899 Other long term (current) drug therapy; Z79.82 Long term (current) use of aspirin
CPT/HCPCS: 70450; 71046; 80053; 81001; 85025; 87631; 93005; 99285; A4216

== ENCOUNTER 2025-09-30 22:38 | Inpatient (IN) | payer MEDICARE, OTHER, SELFPAY ==
[2025-09-30 22:38] VITALS: BP 148/70; PULSE 91; RESP 14; TEMP 37.6; O2SAT 96; BMI 27.2
--- NOTE | 2025-09-30 23:27 | EKG12_ITS ---
Test Reason : DYSRHYTHMIA Blood Pressure : */* mmHG Vent. Rate : 80 BPM Atrial Rate : * BPM P-R Int : * ms QRS Dur : 64 ms QT Int : 390 ms P-R-T Axes : * 58 53 degrees QTcB Int : 449 ms Unclear Atrial Rhythm due to artifact but is likely SINUS RHYTHM Nonspecific ST abnormality Abnormal ECG Confirmed by Calvin Kay ([id number]), editorial assistant BERLIN CROSS ([id number]) on 10/09/2025 9:16:07 AM Referred By: Robb Lawler Confirmed By: Calvin Kay
[2025-09-30] MEDS: 0.9% Normal Saline (1000mL) 1,000 ML 999 ML IV (23:41)
[2025-09-30 23:43] VITALS: BP 123/63; PULSE 79; RESP 18; TEMP 37.2; O2SAT 95
--- NOTE | 2025-09-30 23:53 | EX.ED.DYSGE1 ---
HPI History of Present Illness Chief Complaint: Cough Narrative Narrative: Patient was seen and examined after presenting to ED for cough congestion fevers at home just got his RSV vaccine yesterday but he had a cough and some of his symptoms just prior to that they have been around some family members that ended up being sick as well patient does have a history of dementia but seems to be a little bit more confused than usual per his who takes care of him. [facility] Medical History Obesity Old inferior wall myocardial infarction OAB (overactive bladder) Obstructive sleep apnea Rosacea Actinic keratoses Anemia Abdominal aortic aneurysm (AAA) Atherosclerotic heart disease of [place] coronary artery without angina pectoris Ischemic cerebrovascular accident (CVA) (02/10/18) Essential (primary) hypertension Dementia GERD (gastroesophageal reflux disease) HLD (hyperlipidemia) Prostate cancer Home Medications ?Medication ?Instructions ?Recorded ?Last Taken ?Type multivitamin 1 tab PO DAILY vitamin 10/04/13 02/09/18 History metoprolol succinate 50 mg 75 mg PO DAILY bp 02/10/18 10/15/20 History tablet,extended release 24 hr pravastatin 80 mg tablet 80 mg PO QHS cholesterol 02/10/18 02/09/18 History losartan 100 mg tablet 100 mg PO DAILY bp ##0 02/12/18 10/15/20 Rx solifenacin 5 mg tablet 5 mg PO DAILY overactive bladder 08/17/20 Unknown History amlodipine 10 mg tablet 10 mg PO DAILY bp 09/11/20 10/15/20 History cinnamon bark 500 mg capsule 500 mg PO DAILY supplement 09/11/20 Unknown History donepezil 10 mg tablet 10 mg PO QHS memory 09/11/20 Unknown History nitroglycerin 0.4 mg sublingual 0.4 mg sublingual Q5-15M PRN 09/11/20 Unknown History tablet Cardiac/Chest Pain pantoprazole 40 mg tablet,delayed 40 mg PO DAILY stomach 09/11/20 Unknown History release alpha lipoic acid 200 mg capsule 200 mg PO DAILY see 09/12/21 Unknown History ascorbate calcium (vitamin C) 500 500 mg PO DAILY supplement 09/12/21 Unknown History mg tablet cholecalciferol (vitamin D3) 25 25 mcg PO DAILY supplement 04/28/24 Unknown History mcg (1,000 unit) capsule aspirin 81 mg tablet,delayed 81 mg PO DAILY blood thinner 06/08/24 Unknown History release memantine 10 mg tablet 10 mg PO BID memory 06/08/24 Unknown History quetiapine 25 mg tablet (Seroquel) 25 mg PO QHS #30 tabs 06/13/24 Unknown Rx Allergy/AdvReac Type Severity Reaction Status Date / Time atorvastatin (From Lipitor) Allergy PT UNSURE Verified 09/30/25 22:39 OF REACTION azithromycin (From Zithromax) Allergy Itching Verified 09/30/25 22:39 Beta-Blockers Allergy NEEDS Verified 09/30/25 22:39 (Beta-Adrenergic Bloc FOLLOW-UP sildenafil (From Viagra) Allergy PT UNSURE Verified 09/30/25 22:39 OF REACTION Wgbawep-QIY-PvM Reductase Allergy Other Verified 09/30/25 22:39 Inhibitor (Vooxnfw-Ykg-Aqz Reductase Inhibitor) ezetimibe (From Zetia) AdvReac PT UNSURE Verified 09/30/25 22:39 OF REACTION Family History Sister CAD (coronary artery disease) Mother CAD (coronary artery disease) Father Colon cancer Brother CAD (coronary artery disease) Surgical History History of left heart catheterization (10/15/20) History of herniorrhaphy History of coronary artery stent placement (10/07/13) Social History Smoking Status: Current every day smoker tobacco type: cigarettes alcohol intake: never substance use type: does not use caffeine: Yes Type: coffee Number of servings: 3 ROS ROS ED ROS Narrative Pertinent Positives: Confusion more than his usual baseline cough congestion fevers at home Pertinent Negatives: Chest pain pressure difficulty breathing vomiting diarrhea The remainder of review of systems negative unless otherwise stated in the HPI above. Systems reviewed including constitutional, psychiatric, cardiovascular, respiratory, integument, HENT, gastrointestinal. EXAM Physical Exam Narrative Exam Narrative: Patient is afebrile here but was febrile at home he is normocephalic atraumatic hemodynamically stable he has normal heart sounds lungs had a subtle wheeze to it abdomen is soft nontender nondistended. Somewhat confused. Moves all of his extremities. He has intact and equal MSPs. Normal range of motion of his head and neck. Does not appear toxic or in distress. Const Vital Signs: 09/30/25 22:38 09/30/25 23:40 09/30/25 23:43 Temperature 99.7 F H 99 F Temperature Source Oral Oral Pulse Rate 91 79 Respiratory Rate 14 18 Respiratory Effort Respiratory Depth Respiratory Pattern Blood Pressure 148/70 H 123/63 H Blood Pressure Mean 96 83 Pulse Ox 96 95 Oxygen Delivery Method Room Air Room Air Room Air 10/01/25 00:00 10/01/25 00:15 10/01/25 01:00 Temperature 98.1 F 98.1 F Temperature Source Oral Oral Pulse Rate 79 77 Respiratory Rate 20 H 17 Respiratory Effort Normal Respiratory Depth Normal Respiratory Pattern Normal Blood Pressure 132/65 H 144/64 H Blood Pressure Mean 87 90 Pulse Ox 95 99 Oxygen Delivery Method Room Air Room Air Room Air 10/01/25 01:13 Temperature 98.1 F Temperature Source Pulse Rate 80 Respiratory Rate 20 H Respiratory Effort Respiratory Depth Respiratory Pattern Blood Pressure 144/64 H Blood Pressure Mean 90 Pulse Ox 98 Oxygen Delivery Method MDM MDM MDM Narrative Medical decision making narrative: Nursing notes, triage notes, available previous documentation, and vital signs were reviewed. Any discrepancies noted were addressed. Differential Diagnoses: Will evaluate for pneumonia or could be a viral process most likely will also evaluate for UTI Interventions: Zofran Fluids Given: 1 L normal saline Labs Reviewed: No leukocytosis leukopenia anemia electrolyte abnormality creatinine is 1.4 lactic acid is slightly elevated at 2.2 minimal transaminitis likely secondary to the virus itself positive for influenza A Imaging Reviewed: Personally reviewed and interpreted by me: Patient's chest x-ray appears to have evidence of pneumonia and patient did test positive for influenza A EKG: There is some motion artifact but he actually has a sinus rhythm at his rate of [address] segment elevation. EKG interpretation is noted and agreed to in the EMR. The interpretation of this patient's EKG contributed directly to the care and management of this patient. Previous Documentation Reviewed: None available or applicable at this time. ED Course: Patient presenting with confusion more than his usual from his dementia also have a cough and having fevers at home he did get his RSV vaccine yesterday which could be playing a role as well but seems like some of his symptoms have developed prior to the vaccine he also has multiple sick contacts given the holidays patient will receive fluids Zofran reassessment. 10/01/2025 at 0118: Patient tested positive for influenza A given the ongoing confusion that the patient has and the fact that he lives with his who has medical problems herself we will discuss with hospitalist regarding admission at least for overnight observation 0155: Urine without evidence of infection. I also had a [id number] discussion with hospitalist who is agreeable to admission This note was made utilizing voice recognition software. All attempts were made to correct spelling or other errors prior to note completion. However, due to the fast-paced nature of emergency medicine, some errors may still be present. Lab Data Labs: Laboratory Results - last 24 hr 09/30/25 10/01/25 23:45 01:16 WBC 11.0 RBC 4.74 Hgb 14.0 Hct 41.6 MCV 87.8 MCH 29.5 MCHC 33.7 RDW Std Deviation 43.3 RDW Coeff of Sami 13.4 Plt Count 204 MPV 10.5 Immature Gran % (Auto) 0.500 Neut % (Auto) 85.9 H Lymph % (Auto) 5.0 L [place] % (Auto) 7.6 Eos % (Auto) 0.5 Baso % (Auto) 0.5 Absolute Neuts (auto) 9.5 H Absolute Lymphs (auto) 0.55 L Nucleated RBC % 0 Sodium 143 Potassium 4.1 Chloride 106 Carbon Dioxide 25.1 Anion Gap 11 BUN 19 Creatinine 1.40 H Estim Creat Clear Calc 44.65 L Est GFR (MDRD) Non-Af 50 L BUN/Creatinine Ratio 13.9 Glucose 130 H Lactic Acid 2.2 H* Calcium 9.7 Total Bilirubin 0.34 AST 46 H ALT 50 H Alkaline Phosphatase 97 Total Protein 7.2 Albumin 3.9 Globulin 3.3 Albumin/Globulin Ratio 1.2 Urine Color Yellow Urine Clarity Clear Urine pH 7.0 Ur Specific [place] 1.010 Urine Protein 100 H Urine Glucose (UA) Normal Urine Ketones Negative Urine Occult Blood Negative Urine Nitrite Negative Urine Bilirubin Negative Urine Urobilinogen Normal Ur Leukocyte Esterase Negative Urine RBC 0-5 SEEN Urine WBC 0-5 SEEN Ur Squamous Epith Cells 0 SEEN Urine Bacteria 0 SEEN Urine Mucus 1+ Discharge Plan Triage Chief Complaint: Cough ED Provider: Kevin Sumner Dx/Rx/DC Orders Clinical Impression: Influenza A, Cough, Confusion, History of dementia, Acute viral syndrome Prescriptions: No Action amlodipine 10 mg tablet 10 mg PO DAILY cinnamon bark 500 mg capsule 500 mg PO DAILY pantoprazole 40 mg tablet,delayed release (DR/EC) 40 mg PO DAILY donepezil 10 mg tablet 10 mg PO QHS nitroglycerin 0.4 mg tablet, sublingual 0.4 mg SUBLINGUAL Q5-15M PRN (Reason: Cardiac/Chest Pain) Rx Instructions: do not exceed 3 doses per episode ascorbate calcium (vitamin C) 500 mg tablet 500 mg PO DAILY alpha lipoic acid 200 mg capsule 200 mg PO DAILY cholecalciferol (vitamin D3) 25 mcg (1,000 unit) capsule 25 mcg PO DAILY multivitamin 1 TABLET tablet 1 tab PO DAILY metoprolol succinate 50 MG tablet extended release 24 hr 75 mg PO DAILY pravastatin 80 MG tablet 80 mg PO QHS Patient Comments: losartan 100 MG tablet 100 mg PO DAILY Qty: 0 0RF Rx Instructions: Hold if systolic blood pressure less than 110 mmHg solifenacin 5 MG tablet 5 mg PO DAILY aspirin 81 mg tablet,delayed release (DR/EC) 81 mg PO DAILY memantine 10 mg tablet 10 mg PO BID quetiapine [Seroquel] 25 mg tablet 25 mg PO QHS Qty: 30 0RF Primary Care Provider: Adama Jon Referrals: Adama Jon MD [Primary Care Provider, Family Practice] Print Language: Lebanese
--- NOTE | 2025-09-30 23:55 | RAD_ITS ---
PROCEDURE: CHEST PA AND LATERAL 09/30/2025 REASON FOR EXAM: COUGH SHORTNESS OF BREATH TECHNIQUE: Procedure Code: RADCXR Modality: DX Procedure: CHEST PA AND LATERAL COMPARISON: 09/21/2024 FINDINGS: Hardware: None. Heart: Heart size is mildly enlarged. Mediastinum: The mediastinal contour is unremarkable. Lungs: Scattered bilateral airspace opacities concerning for multifocal pneumonia. No pneumothorax or sizable pleural effusion. Bones: The bones are unremarkable. RAD/Chest PA and Lateral IMPRESSION: Scattered bilateral airspace opacities concerning for multifocal pneumonia. [facility]
[2025-10-01] VITALS (17 sets, daily range): BP systolic 111–168; BP diastolic 49–78; PULSE 73–86; RESP 16–24; TEMP 36.7–38.1; O2SAT 88–100; BMI 30.7
[2025-10-01 00:14] LABS: Hematocrit 41.6 % (40-54); Hemoglobin 14.0 g/dL (13.0-16.5); Immature Granulocytes Count 0.050 X10^3/uL (0.0-0.0); Mean Corp Hgb Conc 33.7 g/dL (32-36); Mean Corpuscular Volume 87.8 fL (80-94); Mean Platelet Vol. 10.5 fl (6.2-12.0); NRBC Flagged by Analyzer 0 % (0-5); POSITIVE DIFFERENTIAL YES; Platelet Count 204 K/mm3 (150-450); RBC Distribution Width CV 13.4 % (11.6-14.6); RBC Distribution Width SD 43.3 fl (35.1-43.9); Red Blood Count 4.74 M/mm3 (4.6-6.2); White Blood Count 11.0 K/mm3 (4.4-11.0)
[2025-10-01 00:21] LABS: AST(SGOT) 46 U/L (<=37); Alanine Aminotransfer ALT/SGPT 50 U/L (<=46); Albumin, Serum 3.9 g/dL (3.4-4.8); Alkaline Phosphatase 97 U/L (40-129); Anion Gap 11 (7-18); BUN 19 mg/dL (4-19); BUN/Creat Ratio 13.9 RATIO (10-20); Calcium,Total 9.7 mg/dL (7.6-11.0); Carbon Dioxide 25.1 mmol/L (20.0-29.0); Chloride 106 mmol/L (96-106); Estimated Creatinine Clearance 44.65 ml/min (50-250); Globulin 3.3 g/dL (2.2-4.2); Glucose 130 mg/dL (70-99); Potassium 4.1 mmol/L (3.5-5.1)
--- OUTSIDE RECORDS SUMMARY | 2025-10-01 00:36 | XMS RPT_ITS | CCD ---
Author Organization [facility] Care Team Providers Care Instrument Lens Generator Name Role Phone CASEY BRUSH Unavailable Unavailable SHAYE OH Unavailable Unavailable CASEY BRUSH Unavailable Unavailable IMCA Unavailable Unavailable Adama Mendoza Unavailable Unavailable CASEY BRUSH Unavailable Unavailable CASEY BRUSH Unavailable Unavailable Adama Mendoza Unavailable Unavailable Adama Mendoza MD Primary Care Provider Adama Mendoza MD Primary Care Provider Adama Mendoza MD Primary Care Provider Adama Mendoza MD Primary Care Provider Adama Mendoza MD Primary Care Provider Adama Mendoza MD Primary Care Provider Timothy COYLE, Claude Unavailable Danita Meraz PA-C Unavailable Soto Valderrama MD Unavailable Adama Mendoza MD Unavailable Krishna Mackey RN Unavailable Brianna Doe RN Unavailable Unavailable ADAMA MENDOZA Primary Care Unavailable SHAYE KITCHEN JR Referring Unavailable ADAMA MENDOZA Primary Care Unavailable SHAYE KITCHEN JR Referring Unavailable ADAMA MENODZA Primary Care Unavailable SHAYE KITCHEN JR Referring Unavailable ADAMA MENDOZA Primary Care Unavailable SHAYE KITCHEN JR Referring Unavailable ADAMA MENDOZA Primary Care Unavailable NUBIA SALINAS Admitting Unavailable SOTO VALDERRAMA Attending UnavailDOMENICO Simon Referring Unavailable Brianna Doe RN Unavailable Unavailable Adama Mendoza MD Primary Care Provider [phone] Timothy MOTEL FRONT DESK ATTENDANTClaude MIGUEL Unavailable Danita Meraz PA-C Unavailable Adama Mendoza Referring Unavailable Cayden Morton Attending Unavailable Danay, Adama Primary Care Unavailable Danay, Adama Primary Care Unavailable Fish Burnette Attending Unavailable Danay LANTIGUA, Dr. Galan Primary Care Physician Danay LANTIGUA, Dr. Galan Referring Provider Dr. Cayden Morton MD Attending Physician [phone] DANDY FAITH Referring Unavailable DANAY, ADAMA A Primary Care Unavailable DANAY, ADAMA A Referring Unavailable DANAY, ADAMA A Primary Care Unavailable DANAY, ADAMA A Primary Care Unavailable DANAY, ADAMA A Attending Unavailable DANAY, ADAMA A Referring Unavailable DANAY, ADAMA A Primary Care Unavailable DANAY, ADAMA A Primary Care Unavailable SHAYE KITCHEN JR Attending Unavailable DANAY, ADAMA A Primary Care Unavailable CLAUDE CARDENAS Attending Unavailable DANAY, ADAMA A Primary Care Unavailable CLAUDE CARDENAS Referring Unavailable DANDY FAITH Attending Unavailable DANAY, ADAMA A Primary Care Unavailable DANDY FAITH Referring Unavailable DANAY, ADAMA A Primary Care Unavailable DANAY, ADAMA A Referring Unavailable PINO CHAPPELL Attending Unavailable DANAY, ADAMA A Primary Care Unavailable DANAY, ADAMA A Attending Unavailable DANAY, ADAMA A Primary Care Unavailable DANITA MERAZ Referring Unavailable DANAY, ADAMA A Primary Care Unavailable ADNAY, ADAMA A Attending Unavailable DANAY, ADAMA A Referring Unavailable DANAY, ADAMA A Primary Care Unavailable DANAY, ADAMA A Primary Care Unavailable DANAY, ADAMA A Attending Unavailable DANAY, ADAMA A Primary Care Unavailable MARGARET ARDON Attending Unavailable DANAY, ADAMA A Primary Care Unavailable DANITA MERAZ Referring Unavailable RUBÉN GONZALEZ Attending Unavailable DANAY, ADAMA A Primary Care Unavailable ROBINSON HUDSON Attending Unavailable DANAY, ADAMA A Primary Care Unavailable RUBÉN GONAZLEZ Attending Unavailable DANAY, ADAMA A Primary Care Unavailable MARGARET ARDON Referring Unavailable DANAY, ADAMA A Primary Care Unavailable GAUDENCIO ALLEN Attending Unavailable DAHLHAUSEN, MARGARET Referring Unavailable DANAY, ADAMA A Primary Care Unavailable DANAYADAMA DIAMOND A Attending Unavailable DANAY, ADAMA A Referring Unavailable DANAY, ADAMA A Primary Care Unavailable DANAY, ADAMA A Primary Care Unavailable TESTDANDY GIRON Attending Unavailable DANAY, ADAMA A Primary Care Unavailable TESTRAKE, DANDY Referring Unavailable DANAY, ADAMA A Primary Care Unavailable DANAY, ADAMA A Attending Unavailable DANAY, ADAMA A Primary Care Unavailable DANITA MERAZ Attending Unavailable DANAY, ADAMA A Primary Care Unavailable TESTDANDY GIRON Attending Unavailable DANAY, ADAMA A Primary Care Unavailable CLAUDE CARDENAS Attending Unavailable DANAY, ADAMA A Primary Care Unavailable DOMENICO CHOUDHURY Attending Unavailable ADAMA MENDOZA A Attending Unavailable DANAY, ADAMA A Primary Care Unavailable DANAY, ADAMA A Referring Unavailable DANAY, ADAMA A Primary Care Unavailable Allergies Allergy Classification Reported Allergen(s) Allergy Type Date of Onset Reaction(s) Facility Cholesterol Absorption Inhibitors (1 source) ezetimibe Drug Allergy 8 Mental Status Change [facility] HMG-CoA Reductase Inhibitors (statins) (1 source) atorvastatin Drug Allergy 5 Intolerance [facility] Macrolides (antibiotic) (1 source) Azithromycin Drug Allergy 5 Itching [facility] sildenafil (1 source) sildenafil Drug Allergy 5 Unknown [facility] (20 sources) atorvastatin; Translations: [ATORVASTATIN] Drug Allergy 5 Intolerance [facility] (20 sources) azithromycin; Translations: [AZITHROMYCIN] Drug Allergy 5 Itching [facility] (20 sources) ezetimibe; Translations: [EZETIMIBE] Drug Allergy 8 Mental Status Change [facility] Comment on above: mental status change (20 sources) sildenafil; Translations: [SILDENAFIL] Drug Allergy 5 Unknown [facility] (2 sources) OTHER; Translations: [OTHER] Propensity to adverse reactions (disorder) 5 [facility] (20 sources) BETA-SHRAVAN S [Other] Propensity to adverse reactions 5 Unknown [facility] Work Phone: (4 sources) Adrenergic Beta-Antagonists Allergy to substance 2 NEEDS FOLLOW-UP [facility] (4 sources) Lxmsbpo-Ogf-Yni Reductase Inhibitor Allergy to substance 2 Other [facility] (20 sources) beta-Blocking agent; Translations: [BETA-BLOCKERS (BETA-ADRENERGIC BLOCKING AGTS)] Propensity to adverse reactions to drug 4 Unknown [facility] Work Phone: (1 source) Adrenergic Beta-Antagonists Drug allergy (disorder) 5 [facility] (1 source) Fbcvvwj-Bxp-Kti Reductase Inhibitor Drug allergy (disorder) 5 [facility] Medications Current Medications Medication Drug Class(es) Dates Sig (Normalized) Sig (Original) amLODIPine 10 mg oral tablet (20 sources) Dihydropyridine Calcium Channel Shravan Start: 09-11-2020 End: 03-15-2025 take 1 tablet by mouth once daily amLODIPine (NORVASC) 10 mg tablet Indications: Essential hypertension, benign Take 1 tablet by mouth once daily. 90 tablet 1 03/15/2025 Active Start: 10-04-2013 End: 09-11-2020 take 5 mg by mouth once daily Amlodipine 10 MG tablet Discontinued 5 mg PO DAILY 0 0 February 12, 2018 11:20am September 11, 2020 9:28pm bp Hold if systolic blood pressure less than 110 mmHg Start: 10-04-2013 End: 09-11-2020 take 5 mg by mouth once daily Amlodipine Discontinued 5 MG PO DAILY 0 February 12, 2018 10:20am September 11, 2020 8:28pm Hold if systolic blood pressure less than 110 mmHg Comment on above: Take 1 tablet by fernandez th once daily. ASCORBIC ACID, VITAMIN C, ORAL (20 sources) Start: 10-22-2024 ASCORBIC ACID, VITAMIN C, ORAL Take 500 mg by mouth once daily. Patient should start on October 22, 2024. 10/22/2024 Active ASCORBIC ACID, V ITAMIN C, ORAL Take by mouth. Active ASCORBIC ACID, V ITAMIN C, ORAL Take by mouth. 0 Active Comment on above: Take by mouth. aspirin 81 mg delayed release oral tablet (20 sources) Platelet Aggregation Inhibitor, Nonsteroidal Anti-inflammatory Drug Start: 03-03-2020 take 81 mg by mouth once daily Aspirin Active 81 MG PO DAILY@0800 March 02, 2020 11:00pm Start: 12-21-2018 End: 04-12-2025 take 1 tablet by mouth once daily Aspirin 81 mg tablet,delayed release (DR/EC) Active 81 mg PO DAILY June 08, 2024 12:00am blood thinner Complies with drug therapy Comment on above: Take 1 tablet by fernandez th once daily. benzonatate 100 mg oral capsule (20 sources) Non-narcotic Antitussive Start: 5 End: 5 take 1 capsule by mouth three times daily benzonatate (TESSALON PERLE) 100 mg capsule Take 1 capsule by mouth three times a day. 90 capsule 10/20/2024 11/19/2024 Active Start: 02-04-2021 End: 03-06-2021 take 1 capsule by mouth every eight hours as needed Benzonatate 200 mg capsule Take 1 capsule by mouth three times daily as needed for Cough. 45 capsule 1 02/04/2021 03/06/2021 Discontinued (Course of therapy completed) Blood Pressure Cuff - Home Use (20 sources) Start: 01-14-2018 Blood Pressure Cuff - Home Use Indications: Essential hypertension, benign BLOOD PRESSURE CUFF FOR HOME USE. 1 Each 01/14/2018 Active Start: 01-14-2018 Blood Pressure Cuff - Home Use Indications: Essential hypertension, benign BLOOD PRESSURE CUFF FOR HOME USE. 1 Each 0 01/14/2018 Active Comment on above: BLOOD PRESSURE CUFF FOR HOME USE. calcium ascorbate 500 mg oral tablet (4 sources) Start: 1 take 1 tablet by mouth once daily Ascorbate Calcium (Vitamin C) 500 mg tablet Active 500 mg PO DAILY September 12, 2021 1:00am supplement Complies with drug therapy cefadroxil 500 mg oral capsule (5 sources) Cephalosporin Antibacterial Start: 4 End: 4 take 1 capsule by mouth twice daily cefADROxil (DURICEF) 500 mg capsule Indications: Cellulitis of skin Take 1 capsule by mouth two times a day for 7 days. 14 capsule 06/15/2024 06/22/2024 Active Start: 02-04-2021 End: 03-06-2021 take 1 capsule by mouth twice daily cefADROxil (DURICEF) 500 mg capsule Take 1 capsule by mouth twice daily. 20 capsule 02/04/2021 03/06/2021 Discontinued (Course of therapy completed) cholecalciferol 0.025 mg oral tablet (20 sources) Vitamin D Start: 10-22-2024 cholecalcifero l (VITAMIN D3) 1,000 unit tab tablet Take 2,000 Units by mouth once daily. Patient should start on October 22, 2024. 10/22/2024 Active Start: 04-28-2024 take 1 capsule by mo uth once daily Cholecalciferol (Vitamin D3) 25 mcg (1,000 unit) capsule Active 25 ug PO DAILY April 28, 2024 12:00am supplement Complies with drug therapy take 1 tablet by fernandez once daily cholecalciferol (VITAMIN D3) 1,000 unit tab tablet Take 1,000 Units by mouth once daily. Active Comment on above: Take 1,000 Units by mouth once daily. cinnamon bark 1000 mg oral capsule (20 sources) Start: 10-22-2024 take 1000 mg by mouth once daily CINNAMON BARK ORAL Take 1,000 mg by mouth once daily. 10/22/2024 Active Start: 09-11-2020 take 1 capsule by mo uth once daily Cinnamon Bark 500 mg capsule Active 500 mg PO DAILY September 11, 2020 1:00am supplement Complies with drug therapy Comment on above: Take 1 capsule by mo uth once daily. DAILY MULTIVITAMIN TAB (20 sources) Start: 5 DAILY MULTIVITAMIN TAB Take one(1) tablet daily. 0 08/01/2005 Active Comment on above: Take one(1) tablet d aily. donepezil hydrochloride 10 mg oral tablet (20 sources) Start: End: take 1 tablet by mouth once daily at bedtime donepezil (ARICEPT) 10 mg tablet Take 1 tablet by mouth daily at bedtime. 90 tablet 1 12/05/2024 Active Start: 09-11-2020 End: 09-16-2024 take 1 tablet by mouth once daily at bedtime donepezil (ARICEPT) 10 mg tablet Take 1 tablet by mouth daily at bedtime. 90 tablet 1 08/29/2024 09/16/2024 Discontinued Start: 03-03-2020 End: 09-11-2020 take 2 tablets by mouth at bedtime Donepezil 5 MG tablet Discontinued 10 mg PO AT BEDTIME March 03, 2020 12:00am September 11, 2020 9:29pm Start: 03-03-2020 End: 09-11-2020 take 10 mg by mouth at bedtime Donepezil Discontinued 10 MG PO AT BEDTIME March 02, 2020 11:00pm September 11, 2020 8:29pm Comment on above: Take 1 tablet by fernandez th daily at bedtime. doxycycline hyclate 100 mg oral capsule (4 sources) Tetracycline-class Drug Start: 4 End: 4 take 1 capsule by mouth twice daily doxycycline hyclate (VIBRAMYCIN) 100 mg capsule Take 1 capsule (100 mg) by mouth two times a day for 10 days. 20 capsule 09/20/2024 09/30/2024 Active magnesium oxide 400 mg oral tablet (20 sources) Start: 5 End: 5 take 1 tablet by mouth twice daily magnesium oxide (MAG-OX) 400 mg (241.3 mg magnesium) tablet Take 1 tablet by mouth two times a day. 60 tablet 5 01/24/2025 Active memantine hydrochloride 10 mg oral tablet (20 sources) K-ansevu-S-aspartat e Receptor Antagonist Start: 4 End: 5 take 1 tablet by mouth twice daily Memantine 10 mg tablet Active 10 mg PO TWICE A DAY June 08, 2024 12:00am memory Complies with drug therapy Start: 04-14-2023 End: 10-31-2023 memantine (NAMENDA) 10 mg ta blet Take one tab a day for a week then go to one twice a day. 180 tablet 1 04/14/2023 10/31/2023 Discontinued Start: 02-03-2023 take 5 mg by mouth twice daily Memantine Active 5 MG PO TWICE A DAY February 02, 2023 11:00pm Start: 10-09-2022 End: 04-14-2023 memantine (NAMENDA) 5 mg tab let Take one tab a day for a week then go to one twice a day. 180 tablet 1 04/10/2023 04/14/2023 Discontinued Comment on above: Take one tab a day f or a week then go to one twice a day. Take 1 tablet by fernandez th two times a day. methylPREDNISolone (5 sources) Corticosteroid Start: 09-10-2024 End: 09-16-2024 methylPREDNISolone (MEDROL, JEREMY,) 4 mg Dose-Pack Follow dosing instructions, take with food. 21 tablet 09/10/2024 09/16/2024 Active Start: 02-18-2021 End: 02-24-2021 methylPREDNISolone (MEDROL, JEREMY,) 4 mg Dose-Pack Follow dosing instructions, take with food. 1 Package 02/18/2021 02/24/2021 24 hr metoprolol succinate 25 mg extended release oral tablet (20 sources) beta-Adrenergic Shravan Start: 10-21-2024 End: 05-11-2025 take 3 tablets by mouth once daily metoprolol succinate ER (TOPROL XL) 25 mg 24 hr tablet Take 3 tablets by mouth once daily. 270 tablet 1 04/11/2025 Active Start: 08-03-2023 End: 10-20-2024 take 1.5 tablets by mouth once daily metoprolol succinate ER (TOPROL XL) 50 mg 24 hr tablet Take 1.5 tablets by mouth once daily. 135 tablet 1 07/27/2024 10/20/2024 Discontinued Start: 02-10-2018 Metoprolol Suc cinate 50 MG tablet extended release 24 hr Active 75 mg PO DAILY February 10, 2018 12:00am bp Complies with drug therapy Start: 02-10-2018 End: 01-30-2023 take 1.5 tablets by mouth once daily metoprolol succinate ER (TOPROL XL) 50 mg 24 hr tablet Take 1.5 tablets by mouth once daily. 135 tablet 1 01/16/2021 07/25/2021 Discontinued Comment on above: Take 1.5 tablets by mouth once daily. multivit-min/ferrous fumarate (MULTI VITAMIN ORAL) (20 sources) Start: 10-22-2024 take 1 tablet by mouth once daily multivit-min/ferrous fumarate (MULTI VITAMIN ORAL) Take 1 tablet by mouth once daily. 10/22/2024 Active Multivitamin 1 TABLET tablet (1 source) Start: 10-04-2013 Multivitamin 1 TABLET tablet Active 1 {tbl} PO DAILY October 04, 2013 1:00am vitamin Complies with drug therapy Multivitamin preparation (3 sources) Start: 10-04-2013 take 1 tablet by mouth once daily Multivitamin Active 1 TABLET PO DAILY October 04, 2013 12:00am Start: 10-04-2013 take 1 tablet by fernandez th once daily Multivitamin Active 1 TABLET PO DAILY October 04, 2013 1:00am nitroglycerin 0.4 mg sublingual tablet (20 sources) Nitrate Vasodilator Start: 04-06-2023 nitroglyce rin sublingual (NITROSTAT) 0.4 mg SL tablet [The details of the medication are not available because there are pending changes by a home health clinician.] 25 tablet 3 04/06/2023 Active Start: 05-15-2016 End: 12-05-2024 Nitroglycerin 0.4 mg tablet, sublingual Active 0.4 mg SL every 5 to 15 minutes as needed for Cardiac/Chest Pain September 11, 2020 1:00am do not exceed 3 doses per episode Complies with drug therapy Comment on above: Dissolve 1 tablet un corey the tongue every 5 minutes as needed for Chest Pain. pantoprazole 40 mg delayed release oral tablet (20 sources) Proton Pump Inhibitor Start: 09-11-20 End: 12-29-19 take 1 tablet by mouth once daily before breakfast pantoprazole DR (PROTONIX) 40 mg tablet Indications: Gastroesophageal reflux disease with esophagitis without hemorrhage Take 1 tablet by mouth daily before breakfast. Take on empty stomach, 1/2 hr before meal. 90 tablet 1 12/28/2024 Active Comment on above: Take 1 tablet by fernandez th daily before breakfast. Take on empty stomach, 1/2 hr before meal. predniSONE 10 mg oral tablet (20 sources) Start: 06-28-20 End: 07-07-20 predniSONE (DELTASONE) 10 mg tablet Take 4 tabs daily for 3 days, then 2 tabs daily for 3 days, then 1 tab daily for 3 days with food. 21 tablet 06/28/2024 07/07/2024 Active Start: 06-15-2024 End: 06-24-2024 predniSONE (DELTASONE) 10 mg tablet Indications: Acute gout of right elbow, unspecified cause Take 4 tabs daily for 3 days, then 2 tabs daily for 3 days, then 1 tab daily for 3 days with food. 21 tablet 06/15/2024 06/24/2024 Active Start: 06-20-2021 End: 04-14-2023 take 1 tablet by mouth once daily predniSONE (DELTASONE) 20 mg tablet 1 tab a day by mouth for the next 7 days 7 tablet 0 06/20/2021 04/14/2023 Discontinued Comment on above: 1 tab a day by mouth for the next 7 days solifenacin succinate 5 mg oral tablet (20 sources) Cholinergic Muscarinic Antagonist Start: End: take 1 tablet by mouth once daily solifenacin (VESICARE) 5 mg tablet Take 1 tablet by mouth once daily. 90 tablet 1 05/16/2025 Active Start: 08-17-2020 End: 10-20-2024 take 1 tablet by mouth once daily solifenacin (VESICARE) 5 mg tablet Take 1 tablet by mouth once daily. 90 tablet 1 07/07/2024 10/20/2024 Discontinued Comment on above: Take 1 tablet by fernandez th once daily. thioctic acid 200 mg oral capsule (4 sources) Start: 09-12-2021 take 1 capsule by mouth once daily Alpha Lipoic Acid 200 mg capsule Active 200 mg PO DAILY September 12, 2021 1:00am see Complies with drug therapy vitamin b12 1 mg oral tablet (10 sources) Vitamin B12 Start: 04-11-2025 take 1 tablet by mouth once daily cyanocobalamin (VITAMIN B-12) 1,000 mcg tab Take 1 tablet by mouth once daily. 04/11/2025 Active zinc sulfate 220 mg oral capsule (20 sources) Start: 10-21-2024 End: 04-12-2026 take 1 capsule by mouth once daily zinc sulfate 220 mg (50 mg zinc) capsule Take 1 capsule by mouth once daily. 90 capsule 3 04/12/2025 04/12/2026 Active Completed/Discontinued Medications Medication Drug Class(es) Dates Sig (Normalized) Sig (Original) acetaminophen 325 mg / HYDROcodone bitartrate 5 mg oral tablet (4 sources) Opioid Agonist Start: 07-24-2022 End: 02-03-2023 Hydrocodone-Acetami nophen 5-325 mg tablet Discontinued 1 {tbl} PO Q8H as needed for pain 9 3 0 July 24, 2022 February 03, 2023 2:14pm Anterior dislocation of right shoulder Anterior dislocation of right humerus, initial encounter Start: 07-24-2022 End: 02-03-2023 take 1 tablet by mouth every eight hours Hydrocodone-Acetaminophen Discontinued 1 TABLET PO Q8H 9 3 July 24, 2022 February 03, 2023 1:14pm amoxicillin 875 mg / clavulanate 125 mg oral tablet (13 sources) Penicillin-class Antibacterial Start: 10-24-2024 End: 11-03-2024 take 1 tablet by mouth twice daily amoxicillin-clavulanate potassium (AUGMENTIN) 875-125 mg per tablet Indications: Pneumonia of left lower lobe due to infectious organism Take 1 tablet by mouth two times a day for 10 days. 20 tablet 10/24/2024 11/03/2024 clopidogrel 75 mg oral tablet (12 sources) P2Y12 Platelet Inhibitor Start: 09-12-2020 End: 10-22-2020 take 1 tablet by mouth once daily Clopidogrel 75 mg tablet Discontinued 75 mg PO .COMPLEX 30 October 11, 2020 4:39pm October 22, 2020 9:50am 75 mg PO 4 tablets tonight (300 mg ) for loading dose then 1 tablet by mouth daily for heart cath on Thursday.; fluticasone propionate 0.05 mg/actuat metered dose nasal spray (16 sources) Corticosteroid Start: 11-25-2024 End: 04-11-2025 take 2 spray(s) nasal route once daily fluticasone (FLONASE) 50 mcg/actuation nasal spray Indications: Pressure sensation in both ears Use 2 Sprays in each nostril once daily. 1 Each 1 11/25/2024 04/11/2025 Discontinued (Course of therapy completed) levoFLOXacin 750 mg oral tablet (20 sources) Quinolone Antimicrobial Start: 06-13-2024 End: 06-23-2025 take 1 tablet by mouth once daily levoFLOXacin (LEVAQUIN) 750 mg tablet Take 750 mg by mouth once daily. 06/13/2024 09/20/2024 Discontinued (Course of therapy completed) Start: 06-23-2023 End: 07-03-2023 take 1 tablet by mouth once daily levoFLOXacin (LEVAQUIN) 500 mg tablet Take 1 tablet by mouth once daily for 10 days. 10 tablet 0 06/23/2023 07/03/2023 Active Comment on above: Take 1 tablet by fernandez th once daily for 10 days. losartan potassium 100 mg oral tablet (20 sources) Angiotensin 2 Receptor Shravan Start: 3 End: take 1 tablet by mouth once daily losartan (COZAAR) 100 mg tablet Indications: Essential hypertension, benign Take 1 tablet by mouth once daily. 90 tablet 1 07/27/2024 10/20/2024 Discontinued Comment on above: Take 1 tablet by fernandez th once daily. melatonin 3 mg oral tablet (20 sources) Start: 5 End: take 2 tablets by mouth once daily at bedtime melatonin 3 mg tablet Take 2 tablets by mouth daily at bedtime. 180 tablet 1 12/05/2024 06/12/2025 Discontinued End: 04-11-2024 MELATONIN ORAL Take by mouth . 04/11/2024 Discontinued End: 04-11-2024 MELATONIN ORAL Take by mouth . 0 04/11/2024 Discontinued MELATONIN ORAL T darwin by mouth. 0 Active Comment on above: Take by mouth. microencapsulated potassium chloride 10 meq extended release oral tablet (12 sources) Start: 10-20-19 End: 10-30-19 take 1 tablet by mouth twice daily potassium chloride ER (KLOR-CON M10) 10 mEq tablet Take 1 tablet by mouth two times a day for 10 days. 20 tablet 10/20/2024 10/30/2024 pravastatin sodium 80 mg oral tablet (20 sources) HMG-CoA Reductase Inhibitor Start: 09-19-20 24 End: 10-20-19 take 1 tablet by mouth once daily at bedtime pravastatin (PRAVACHOL) 80 mg tablet Take 1 tablet by mouth daily at bedtime. 90 tablet 1 09/19/2024 10/20/2024 Discontinued Start: 03-07-2024 End: 09-17-2024 take 1 tablet by mouth once daily at bedtime pravastatin (PRAVACHOL) 80 mg tablet Take 1 tablet by mouth daily at bedtime. 04/11/2024 09/17/2024 Discontinued Start: 02-10-2018 End: 03-04-2024 take 1 tablet by mouth once daily at bedtime pravastatin (PRAVACHOL) 80 mg tablet Take 1 tablet by mouth daily at bedtime. 30 tablet 5 10/12/2023 03/04/2024 Discontinued Comment on above: Take 1 tablet by fernandez th daily at bedtime. QUEtiapine 25 mg oral tablet (20 sources) Atypical Antipsychotic Start: 06-13-20 End: 01-13-20 take 1 tablet by mouth once daily at bedtime QUEtiapine (SEROQUEL) 25 mg tablet Take 1 tablet by mouth daily at bedtime. 30 tablet 2 10/14/2024 10/20/2024 Discontinued raNITIdine 150 mg oral tablet (4 sources) Histamine-2 Receptor Antagonist Start: 08-17-20 End: 09-11-20 take 1 tablet by mouth once daily Ranitidine (Zantac) 150 MG tablet Discontinued 150 mg PO DAILY August 17, 2020 1:00am September 11, 2020 9:30pm traZODone hydrochloride 50 mg oral tablet (20 sources) Serotonin Reuptake Inhibitor Start: 12-06-19 End: 12-06-19 traZODone (DESYREL) 50 mg tablet 25 mg at bedtime as needed forinsomnia-12.5 mg up to 4 times a day for agitation 60 tablet 1 12/05/2024 12/05/2024 Discontinued Start: 10-20-2024 End: 12-05-2024 traZODone (DESYREL) 50 mg ta blet 25-50 mg at bedtime as needed none insomnia-12.5 mg up to 4 times a day for agitation 60 tablet 10/20/2024 12/05/2024 Discontinued ubidecarenone 200 mg oral capsule (4 sources) Start: 08-17-2020 End: 09-12-2021 take 10 capsules by mouth once daily Coenzyme Q10 200 MG capsule Discontinued 200 mg PO DAILY August 17, 2020 1:00am September 12, 2021 3:19pm ubidecarenone/vitamin E mixed (COQ10 SG 100 ORAL) (20 sources) End: 10-20-2024 ubidecarenone/vitamin E mixed (COQ10 SG 100 ORAL) Take by mouth. 10/20/2024 Discontinued ubidecarenone/vi tamin E mixed (COQ10 SG 100 ORAL) Take by mouth. Active ubidecarenone/vi tamin E mixed (COQ10 SG 100 ORAL) Take by mouth. 0 Active Comment on above: Take by mouth. 30 actuat umeclidinium 0.0625 mg/actuat / vilanterol 0.025 mg/actuat dry powder inhaler (19 sources) Anticholinergic, beta2-Adrenergic Agonist Start: 12-16-19 24 End: 05-12-20 24 take 1 dose by inhalation once daily umeclidinium-vilante rol (ANORO ELLIPTA) 62.5-25 mcg/actuation inhaler Inhale 1 Inhalation as instructed once daily. 1 Each 5 12/16/2023 05/12/2024 Discontinued Comment on above: Inhale 1 Inhalation as instructed once daily. VITAMIN B COMPLEX-100 ORAL (20 sources) End: 10-20-19 25 VITAMIN B COMPLEX-100 ORAL Take by mouth. 10/20/2024 Discontinued VITAMIN B COMPLE X-100 ORAL Take by mouth. Active VITAMIN B COMPLE X-100 ORAL Take by mouth. 0 Active Comment on above: Take by mouth. vitamin b6 50 mg oral tablet (20 sources) Start: 10-20-2024 End: 04-11-2025 take 3 tablets by mouth once daily pyridoxine, vitamin B6, (VITAMIN B6) 50 mg tablet Take 3 tablets by mouth once daily for 14 doses. 42 tablet 10/20/2024 04/11/2025 Discontinued (Course of therapy completed) Problems Active Problems Problem Classification Problem Date Documented Date Episodic/Chronic Acute cerebrovascular disease (6 sources) Ischemic stroke; Translations: [Cerebral infarction, unspecified] Onset: 02-10-2018 02-16-2018 Chronic Comment on above: linear lacunar ische carmen infarct in the right posterior internal capsule extending to the right periventricular white matter Aortic; peripheral; and visceral artery aneurysms (1 source) Abdominal aortic aneurysm; Translations: [Abdominal aortic aneurysm (AAA)] 06-07-2025 Chronic Comment on above: repaired Cancer of prostate (4 sources) Malignant tumor of prostate; Translations: [Malignant neoplasm of prostate] 07-24-2022 Chronic Comment on above: history of Chronic kidney disease (20 sources) Chronic kidney disease stage 3; Translations: [Stage 3 chronic kidney disease, unspecified whether stage 3a or 3b CKD (HCC)] Onset: 04-11-2024 04-11-2024 Chronic Chronic kidney disease (1 source) Chronic kidney disease; Translations: [Stage 3a chronic kidney disease (HCC)] Onset: 04-11-2025 Chronic obstructive pulmonary disease and bronchiectasis (20 sources) Pulmonary emphysema; Translations: [Emphysema, unspecified] Onset: 10-23-2023 10-23-2023 Chronic Chronic ulcer of skin (20 sources) Pressure ulcer of left buttock, stage 2; Translations: [Pressure ulcer, buttock] Onset: 10-24-2024 Resolved: 04-11-2025 10-24-2024 Chronic Coronary atherosclerosis and other heart disease (20 sources) Atherosclerotic heart disease of [place] coronary artery without angina pectoris; Translations: [Recurrent coronary arteriosclerosis after percutaneous transluminal coronary angioplasty] Onset: 11-02-2013 08-22-2020 Chronic Deficiency and other anemia (20 sources) Anemia; Translations: [Anemia, unspecified] 08-22-2020 Episodic Delirium, dementia, and amnestic and other cognitive disorders (20 sources) Dementia; Translations: [Unspecified dementia without behavioral disturbance] Onset: 05-15-2016 06-14-2019 Chronic Diseases of white blood cells (1 source) Leukocytosis; Translations: [Elevated white blood cell count, unspecified] 06-21-2024 Chronic Disorders of lipid metabolism (20 sources) Mixed hyperlipidemia; Translations: [Mixed hyperlipidemia] Onset: 12-03-2002 10-31-2016 Chronic Esophageal disorders (20 sources) Gastroesophageal reflux disease without esophagitis; Translations: [Gastro-esophageal reflux disease without esophagitis] Onset: 08-03-2015 Resolved: 08-02-2018 12-14-2018 Chronic Essential hypertension (20 sources) Essential (primary) hypertension; Translations: [Benign essential hypertension] Onset: 05-12-2006 12-24-2018 Chronic Genitourinary symptoms and ill-defined conditions (2 sources) Urinary incontinence; Translations: [Unspecified urinary incontinence] 04-30-2023 Chronic Gout and other crystal arthropathies (2 sources) 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; Translations: [Gout, unspecified] 06-15-2024 Chronic Joint disorders and dislocations; trauma-related (20 sources) Anterior dislocation of shoulder joint; Translations: [Anterior dislocation of right humerus, initial encounter] Onset: 10-31-2022 Episodic Lung disease due to external agents (1 source) Asbestosis; 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] 05-12-2024 Chronic Malaise and fatigue (2 sources) Asthenia; Translations: [Weakness] 09-26-2023 Episodic Open wounds of head; neck; and trunk (4 sources) Facial laceration ; Translations: [Laceration without foreign body of other part of head, initial encounter] 03-04-2020 Episodic Other aftercare (1 source) Removal of sutures done; Translations: [Encounter for removal of sutures] Episodic Other circulatory disease (1 source) Abnormal peripheral pulse; Translations: [Other specified symptoms and signs involving the circulatory and respiratory systems] 06-02-2025 Episodic Other connective tissue disease (3 sources) Pain of toe of left foot; Translations: [Pain in left toe(s)] Episodic Other connective tissue disease (3 sources) Pain of toe of right foot; Translations: [Pain in right toe(s)] Episodic Other connective tissue disease (4 sources) Pain of left heel; Translations: [Pain in left foot] 03-04-2024 Episodic Other connective tissue disease (1 source) Calcaneal spur of left foot; Translations: [Calcaneal spur, left foot] 04-04-2024 Episodic Other connective tissue disease (1 source) Pain in finger of left hand; Translations: [Pain in left finger(s)] 06-28-2024 Episodic Other connective tissue disease (1 source) Pain in right hand; Translations: [Pain in right hand] 06-19-2021 Episodic Other connective tissue disease (1 source) Disorder of skeletal muscle; Translations: [Other symptoms and signs involving the musculoskeletal system] 10-24-2024 Episodic Other connective tissue disease (1 source) Pain in left foot; Translations: [Pain in left foot] 11-25-2024 Episodic Other connective tissue disease (6 sources) Pain in right arm; Translations: [Pain in right arm] 01-09-2025 Episodic Other diseases of bladder and urethra (20 sources) Overactive bladder; Translations: [Overactive bladder] Onset: 08-01-2019 Resolved: 10-20-2024 08-01-2019 Chronic Other diseases of kidney and ureters (1 source) Renal impairment; Translations: [Disorder of kidney and ureter, unspecified] 04-05-2024 Episodic Other ear and sense organ disorders (1 source) Ear pressure sensation; Translations: [Other specified disorders of ear, bilateral] 11-25-2024 Episodic Other inflammatory condition of skin (20 sources) Rosacea; Translations: [Rosacea, unspecified] Onset: 07-05-2003 10-31-2016 Chronic Other injuries and conditions due to external causes (8 sources) Closed injury of head; Translations: [Unspecified injury of head, initial encounter] 08-18-2020 Episodic Other injuries and conditions due to external causes (1 source) Hematoma; Translations: [Other injury of unspecified body region, initial encounter] Episodic Other injuries and conditions due to external causes (1 source) Injury of right hand; Translations: [Unspecified injury of right wrist, hand and finger(s), initial encounter] 05-18-2021 Episodic Other injuries and conditions due to external causes (1 source) Open wound of skin; Translations: [Other injury of unspecified body region, initial encounter] 10-11-2024 Episodic Other lower respiratory disease (4 sources) Dyspnea; Translations: [Dyspnea, unspecified] 10-03-2020 Episodic Other nervous system disorders (1 source) Disorder of brain; Translations: [Encephalopathy, unspecified] 10-24-2024 Chronic Other nervous system disorders (1 source) Polyneuropathy, unspecified; Translations: [Neuropathy] Onset: 02-24-2025 Chronic Other nervous system disorders (1 source) Encephalopathy, unspecified; Translations: [Acute encephalopathy] Onset: 10-24-2024 Chronic Other nutritional; endocrine; and metabolic disorders (20 sources) Hypomagnesemia; Translations: [Hypomagnesemia] Onset: 10-16-2024 Resolved: 10-19-2024 10-19-2024 Chronic Other nutritional; endocrine; and metabolic disorders (1 source) Obesity; Translations: [Obesity, unspecified] 06-07-2025 Chronic Other nutritional; endocrine; and metabolic disorders (1 source) Hypomagnesemia; Translations: [Hypomagnesemia] Onset: 04-11-2025 Chronic Other skin disorders (2 sources) Mass of skin of right upper limb; Translations: [Localized swelling, mass and lump, right upper limb] Episodic Other skin disorders (5 sources) Mass of subcutaneous tissue of back; Translations: [Localized swelling, mass and lump, trunk] 07-21-2024 Episodic Other skin disorders (1 source) Eruption; Translations: [Rash and other nonspecific skin eruption] 09-20-2024 Episodic Residual codes; unclassified (20 sources) Obstructive sleep apnea syndrome; Translations: [Obstructive sleep apnea (adult) (pediatric)] Onset: 06-09-2018 06-09-2018 Chronic Residual codes; unclassified (1 source) Obstructive sleep apnea (adult) (pediatric); Translations: [NAIN (obstructive sleep apnea)] Onset: 10-16-2024 Chronic Residual codes; unclassified (6 sources) Active living will ; Translations: [Personal history of other specified conditions] Onset: 03-26-2022 Episodic Residual codes; unclassified (3 sources) Confusional state; Translations: [Disorientation, unspecified] 06-17-2023 Episodic Residual codes; unclassified (2 sources) Disturbance of consciousness; Translations: [Transient alteration of awareness] 09-26-2023 Episodic Residual codes; unclassified (3 sources) Neurocognitive disorder; Translations: [Unspecified symptoms and signs involving cognitive functions and awareness] Onset: 10-17-2024 10-18-2024 Episodic Residual codes; unclassified (1 source) Delirium; Translations: [Disorientation, unspecified] 06-21-2024 Episodic Screening and history of mental health and substance abuse codes (20 sources) Ex-smoker; Translations: [Personal history of nicotine dependence] Onset: 10-31-2016 03-08-2019 Episodic Sprains and strains (20 sources) Strain of neck muscle; Translations: [Strain of muscle, fascia and tendon at neck level, initial encounter] Onset: 10-31-2022 Episodic Superficial injury; contusion (4 sources) Contusion of shoulder region; Translations: [Contusion of right shoulder, initial encounter] 08-18-2020 Episodic Transient cerebral ischemia (9 sources) Transient cerebral ischemia; Translations: [Other transient cerebral ischemic attacks and related syndromes] Onset: 12-23-2023 06-23-2023 Chronic Unclassified (1 source) Unknown / UNK(Unknown) Onset: 11-16-2017 Unclassified (20 sources) Active living will ; Translations: [Living will on file] Onset: 03-26-2022 03-26-2022 Unclassified (1 source) 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); Translations: [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)] Onset: 10-11-2024 Unclassified (1 source) Severe dementia, unspecified dementia type, unspecified whether behavioral, psychotic, or mood disturbance or anxiety (HCC); Translations: [Severe dementia, unspecified dementia type, unspecified whether behavioral, psychotic, or mood disturbance or anxiety (HCC)] Onset: 12-05-2024 Unclassified (1 source) 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); Translations: [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)] Onset: 10-11-2024 Viral infection (20 sources) Disease caused by 2019-nCoV; Translations: [COVID-19] Onset: 08-16-2013 Resolved: 02-01-2015 06-17-2023 Episodic Past or Other Problems Problem Classification Problem Date Documented Date Episodic/Chronic Abdominal hernia (20 sources) Umbilical hernia; Translations: [Umbilical hernia without obstruction or gangrene] Onset: 12-29-2002 Resolved: 02-01-2015 02-01-2015 Episodic Administrative/social admission (20 sources) Advance directive discussed with patient; Translations: [Other specified counseling] Onset: 03-26-2022 Episodic Allergic reactions (20 sources) Solar degeneration; Translations: [Other skin changes due to chronic exposure to nonionizing radiation] Onset: 08-16-2013 Resolved: 02-01-2015 02-01-2015 Episodic Cancer of prostate (20 sources) History of malignant neoplasm of prostate; Translations: [Personal history of malignant neoplasm of prostate] Onset: 03-01-2008 09-04-2020 Episodic Coma; stupor; and brain damage (20 sources) Drowsy; Translations: [Somnolence] Onset: 10-19-2024 Resolved: 10-19-2024 10-19-2024 Episodic Coronary atherosclerosis and other heart disease (1 source) Coronary angioplasty status; Translations: [CAD S/P percutaneous coronary angioplasty] Onset: 08-22-2020 Episodic Deficiency and other anemia (1 source) Anemia, unspecified; Translations: [Anemia, unspecified type] Onset: 08-22-2020 Episodic Diabetes mellitus without complication (20 sources) Hyperglycemia; Translations: [Impaired fasting glucose] Onset: 12-01-2018 12-01-2018 Episodic E Codes: Fall (12 sources) Fall from ladder; Translations: [Fall on and from ladder, initial encounter] Onset: 01-09-2025 Episodic E Codes: Fall (8 sources) Fall 01-09-2025 Epilepsy; convulsions (4 sources) Seizure; Translations: [Unspecified convulsions] Onset: 01-06-2024 11-20-2023 Episodic Fluid and electrolyte disorders (20 sources) Hypokalemia; Translations: [Hypokalemia] Onset: 10-16-2024 Resolved: 10-19-2024 10-19-2024 Episodic Immunizations and screening for infectious disease (4 sources) Vaccination needed; Translations: [Encounter for immunization] Onset: 09-20-2024 Episodic Miscellaneous mental health disorders (2 sources) Wandering in diseases classified elsewhere; Translations: [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)] Onset: 10-11-2024 Episodic Mycoses (4 sources) Onychomycosis; Translations: [Tinea unguium] Onset: 02-24-2025 Episodic Neoplasms of unspecified nature or uncertain behavior (20 sources) Neoplasm of uncertain behavior of skin; Translations: [Neoplasm of uncertain behavior of skin] Onset: 08-16-2013 Resolved: 02-01-2015 02-01-2015 Episodic Nonspecific chest pain (1 source) Chest pain, unspecified; Translations: [Chest pain, unspecified type] Onset: 11-13-2024 Episodic Nutritional deficiencies (20 sources) Zinc deficiency; Translations: [Dietary zinc deficiency] Onset: 10-18-2024 10-18-2024 Episodic Other aftercare (20 sources) Patient encounter status; Translations: [Other halfway (current) drug therapy] Onset: 11-25-2017 12-14-2019 Episodic Other aftercare (1 source) Other oil heaterman (current) drug therapy; Translations: [Medication management] Onset: 12-14-2019 Episodic Other and unspecified benign neoplasm (20 sources) Lipoma of forearm; Translations: [Benign lipomatous neoplasm of skin and subcutaneous tissue of right arm] Onset: 05-05-2017 11-25-2017 Episodic Other and unspecified benign neoplasm (20 sources) Senile angioma; Translations: [Hemangioma of skin and subcutaneous tissue] Onset: 08-16-2013 Resolved: 02-01-2015 02-01-2015 Episodic Other circulatory disease (20 sources) History of cerebrovascular accident; Translations: [Personal history of transient ischemic attack (TIA), and cerebral infarction without residual deficits] Onset: 02-16-2018 Episodic Other circulatory disease (1 source) Other specified symptoms and signs involving the circulatory and respiratory systems; Translations: [Diminished pulses in lower extremity] Onset: 04-12-2025 Episodic Other circulatory disease (1 source) Personal history of transient ischemic attack (TIA), and cerebral infarction without residual deficits; Translations: [History of CVA (cerebrovascular accident)] Onset: 10-16-2024 Episodic Other connective tissue disease (20 sources) Low back pain; Translations: [Myalgia, other site] Onset: 09-26-2019 09-26-2019 Episodic Other connective tissue disease (1 source) Pain in left toe(s); Translations: [Pain in toe of left foot] Onset: 02-24-2025 Episodic Other connective tissue disease (1 source) Pain in right toe(s); Translations: [Pain in toe of right foot] Onset: 02-24-2025 Episodic Other connective tissue disease (1 source) Pain in right arm; Translations: [Right arm pain] Onset: 01-09-2025 Episodic Other connective tissue disease (1 source) Other symptoms and signs involving the musculoskeletal system; Translations: [Muscular deconditioning] Onset: 10-24-2024 Episodic Other ear and sense organ disorders (1 source) Other specified disorders of ear, bilateral; Translations: [Pressure sensation in both ears] Onset: 11-25-2024 Episodic Other injuries and conditions due to external causes (1 source) Other injury of unspecified body region, initial encounter; Translations: [Open wound of skin] Onset: 10-11-2024 Episodic Other lower respiratory disease (20 sources) Cough; Translations: [Cough] Onset: 10-16-2024 Resolved: 10-19-2024 10-19-2024 Episodic Other male genital disorders (20 sources) Disorder of prostate; Translations: [Disorder of prostate, unspecified] Onset: 12-01-2018 12-01-2018 Episodic Other non-traumatic joint disorders (20 sources) Chronic pain of left upper limb; Translations: [Pain in left shoulder] Onset: 06-30-2018 12-14-2018 Episodic Other non-traumatic joint disorders (20 sources) Hip pain; Translations: [Pain in left hip] Onset: 10-27-2024 Resolved: 04-11-2025 09-10-2024 Episodic Other non-traumatic joint disorders (3 sources) Pain in right shoulder; Translations: [Pain in joint, shoulder region] Onset: 01-09-2025 01-09-2025 Episodic Other non-traumatic joint disorders (1 source) Pain in right hip; Translations: [Right hip pain] Onset: 01-09-2025 Episodic Other non-traumatic joint disorders (1 source) Pain in left hip; Translations: [Left hip pain] Onset: 10-27-2024 Episodic Other nutritional; endocrine; and metabolic disorders (20 sources) Hypophosphatemia; Translations: [Other disorders of phosphorus metabolism] Onset: 10-16-2024 Resolved: 10-19-2024 10-19-2024 Chronic Other screening for suspected conditions (not mental disorders or infectious disease) (9 sources) Thallium stress test abnormal; Translations: [Abnormal result of other cardiovascular function study] Onset: 12-05-2024 09-12-2021 Episodic Other skin disorders (20 sources) Actinic keratosis; Translations: [Actinic keratosis] Onset: 08-16-2013 10-31-2016 Episodic Other skin disorders (20 sources) Seborrheic keratosis; Translations: [Other seborrheic keratosis] Onset: 08-16-2013 Resolved: 02-01-2015 02-01-2015 Episodic Other skin disorders (20 sources) Solar lentigo; Translations: [Other melanin hyperpigmentation] Onset: 08-16-2013 Resolved: 02-01-2015 02-01-2015 Episodic Other skin disorders (20 sources) Epidermoid cyst of skin; Translations: [Epidermal cyst] Onset: 08-16-2013 Resolved: 02-01-2015 02-01-2015 Episodic Other skin disorders (1 source) Ingrowing nail; Translations: [Ingrowing toenail] Onset: 04-12-2025 Episodic Other skin disorders (1 source) Rash and other nonspecific skin eruption; Translations: [Rash] Onset: 09-20-2024 Episodic Other skin disorders (1 source) Localized swelling, mass and lump, trunk; Translations: [Mass of subcutaneous tissue of back] Onset: 07-27-2024 Episodic Other upper respiratory infections (2 sources) Acute upper respiratory infection; Translations: [Acute upper respiratory infection, unspecified] Onset: 11-23-2024 11-23-2024 Episodic Pleurisy; pneumothorax; pulmonary collapse (20 sources) Calcification of pleura; Translations: [Other specified pleural conditions] Onset: 10-23-2023 10-23-2023 Episodic Pneumonia (except that caused by tuberculosis or sexually transmitted disease) (9 sources) Bacterial pneumonia; Translations: [Unspecified bacterial pneumonia] Onset: 10-24-2024 06-23-2023 Episodic Residual codes; unclassified (20 sources) Hypersomnia; Translations: [Hypersomnia, unspecified] Onset: 10-16-2024 Resolved: 10-19-2024 10-19-2024 Chronic Residual codes; unclassified (20 sources) Family history of ischemic heart disease; Translations: [Family history of ischemic heart disease and other diseases of the circulatory system] Onset: 08-21-2009 10-31-2016 Episodic Residual codes; unclassified (20 sources) Family history of cancer of colon; Translations: [Family history of malignant neoplasm of digestive organs] Onset: 06-09-2018 07-02-2018 Episodic Residual codes; unclassified (20 sources) Driving fitness status; Translations: [Other specified health status] Onset: 08-16-2019 08-16-2019 Episodic Residual codes; unclassified (20 sources) Altered mental status; Translations: [Altered mental status, unspecified] Onset: 10-15-2024 Resolved: 10-19-2024 06-23-2023 Episodic Residual codes; unclassified (5 sources) Altered mental status, unspecified; Translations: [Altered mental status] Onset: 01-06-2024 Episodic Skin and subcutaneous tissue infections (20 sources) Cellulitis of skin; Translations: [Cellulitis, unspecified] Onset: 10-11-2024 Resolved: 04-11-2025 06-15-2024 Episodic Spondylosis; intervertebral disc disorders; other back problems (20 sources) Neck pain; Translations: [Cervicalgia] Onset: 04-18-2019 04-18-2019 Episodic Unclassified (2 sources) Acute pain of right shoulder 01-09-2025 Results Test Name Value Interpretation Reference Range Facility CNOVon 07-17-[address] [facility] Cardiology Visit Reporton Cardiology Visit Report [facility] [address] [place] [address] OFFICE VISIT Date of Service: 06/23/25 MR#: [id number] Acct: [id number] Name: NARA JOHNSON Rep #: [id number] : 1945 Provider: Dr. Cayden Morton MD Age/Sex: 80/M Location: [email or web address] Status: Signed HPI HPI History of Present Illness Details: Pleasant 80-year-old man with a history of coronary artery disease. He does have some dementia. He was diagnosed in 2013 and at that time he was noted to have inferior ischemia his cardiac catheterization demonstrated angiographically normal left main coronary artery, left anterior descending artery with mild proximal disease and eccentric 60% stenotic lesion, left circumflex artery with no significant disease and a dominant right coronary artery with a mid segment with 95% stenosis. His ejection fraction was preserved he underwent angioplasty with a drug-eluting stent placed to the mid left anterior descending artery. He did undergo a repeat left heart catheterization in October 2020 following his stress test which demonstrated mild inferior ischemia at 7.1 metabolic equivalents. It demonstrated distally occluded right coronary artery with [id number] collaterals, left anterior descending artery with 50% stenosis, circumflex artery with an ostial 60% stenosis in the proximal right coronary artery with 50% stenosis. Medical therapy was recommended. He has apparently done well since then denying any chest pain or shortness breath or paroxysmal nocturnal dyspnea pedal edema is been compliant with his medications. 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 Dinkey Mechanic Required: No Accompanied by: Significant Other Is patient in pain?: No Allergies atorvastatin (From Lipitor) Allergy (Verified 06/23/25 14:02) PT UNSURE OF REACTION azithromycin (From Zithromax) Allergy (Verified 06/23/25 14:02) Itching Beta-Blockers (Beta-Adrenergic Bloc Allergy (Verified 06/23/25 14:02) NEEDS FOLLOW-UP sildenafil (From Viagra) Allergy (Verified 06/23/25 14:02) PT UNSURE OF REACTION Gxaflvy-FKB-UyG Reductase Inhibitor ([place]-Fnh-Sdn Reductase Inhibitor) Allergy (Verified 06/23/25 14:02) Other ezetimibe (From Zetia) Adverse Reaction (Verified 06/23/25 14:02) PT UNSURE OF REACTION Medications ???Medication ???Instructions ???Recorded ???Confirmed ???Type multivitamin 1 tab PO DAILY vitamin 10/04/13 History metoprolol succinate 50 mg 75 mg PO DAILY bp 02/10/18 5 History tablet,extended release 24 hr pravastatin 80 mg tablet 80 mg PO QHS cholesterol 02/10/18 06/23/25 History losartan 100 mg tablet 100 mg PO DAILY bp ##0 02/12/18 Rx solifenacin 5 mg tablet 5 mg PO DAILY overactive bladder 1 10/17/19 06/23/25 History amlodipine 10 mg tablet 10 mg PO DAILY bp 09/11/20 5 History cinnamon bark 500 mg capsule 500 mg PO DAILY supplement 0 06/23/25 History donepezil 10 mg tablet 10 mg PO QHS memory 09/11/2006/23 History nitroglycerin 0.4 mg sublingual 0.4 mg sublingual Q5-15M PRN 09/1106/23/25 History tablet Cardiac/Chest Pain pantoprazole 40 mg tablet,delayed 40 mg PO DAILY stomach 09/11/20 0 06/23/25 History release alpha lipoic acid 200 mg capsule 200 mg PO DAILY see 09/12/21 History ascorbate calcium (vitamin C) 500 500 mg PO DAILY supplement 06/23/25 History mg tablet cholecalciferol (vitamin D3) 25 25 mcg PO DAILY supplement 4 06/23/25 History mcg (1,000 unit) capsule aspirin 81 mg tablet,delayed 81 mg PO DAILY blood thinner 06/0806/23/25 History release memantine 10 mg tablet 10 mg PO BID memory 06/08/2406/23 History quetiapine 25 mg tablet (Seroquel) 25 mg PO QHS #30 tabs 06/13/24 0 06/23/25 Rx Ejection fraction %: 65 Have you fallen in the past year?: No PFSH Medical History Obesity Old inferior wall myocardial infarction OAB (overactive bladder) Obstructive sleep apnea Rosacea Actinic keratoses Anemia Abdominal aortic aneurysm (AAA) Atherosclerotic heart disease of [place] coronary artery without angina pectoris Ischemic cerebrovascular accident (CVA) (02/10/18) Essential (primary) hypertension Dementia GERD (gastroesophageal reflux disease) HLD (hyperlipidemia) Prostate cancer Surgical History History of left heart catheterization (10/15/20) History of herniorrhaphy History of (more content not included)... Normal [facility] CNOVon 06-02-[address] [facility] CNPTOUTREACHon 06-01-[address] [facility] VITAMIN B6/PYRIDOXINon 04-13 VITAMIN B6 33.9 nmol/L Normal 20.0-125.0 [facility] Comment on above: Order Comment: Speci men Type: BLOOD SPECIMENOrdering Facility: [facility] Address: [address] [place] [address] Result Comment: INTE RPRETIVE INFORMATION: Vitamin B6 (Pyridoxal 5-Phosphate)Pyridoxal 5'-phosphate measured in a specimen collected followingan 8-hour or overnight fast accurately indicates vitamin J0ievyoyscqvv status. Non-fasting specimen concentration reflectsrecent vitamin intake.This test was developed and its performance characteristicsdetermined by [facility]. It has not been cleared orapproved by the [place] Food and Drug Administration. This test wasperformed in a CLIA certified laboratory and is intended forclinical purposes.Performed By: [facility] [place], [place] [address]Jliyquhhep Director: Kenan Brunner MD, PhDCLIA Number: [id number] Performed By: #### V ITB6 ####[employer] SolutionsIA [id number] [place] [address] [facility] LABon 2024 [facility] Normal [facility] Urinalysis complete panel (U )on 04-12-2025 Bacteria LM.HPF (Urine sed) [#/Area] Negative Normal Negative [facility] Comment on above: Order Comment: Speci men Type: URINE SPECIMENOrdering Facility: [facility] Address: [address] [place] [address] Performed By: #### 2 4356-8 ####[facility] LABCLIA [id number] [address] [place] [address] [place] Bilirubin Ql (U) Negative Normal Negative [facility] Comment on above: Order Comment: Speci men Type: URINE SPECIMENOrdering Facility: [facility] Address: [address] [place] [address] Performed By: #### 2 4356-8 ####[facility] LABCLIA [id number] [address], [facility]95 [place] Clarity (Unsp spec) Clear Normal Clear [facility] Comment on above: Order Comment: Speci men Type: URINE SPECIMENOrdering Facility: [facility] Address: [address] [place] [address] Performed By: #### 2 4356-8 ####[facility] LABCLIA [id number] [address], [facility]95 [place] Color (U) Yellow Normal Yellow [facility] Comment on above: Order Comment: Speci men Type: URINE SPECIMENOrdering Facility: [facility] Address: [address] [place] [address] Performed By: #### 2 4356-8 ####[facility] LABCLIA [id number] [address] [place] [address] [place] Epithelial cells LM.HPF (Urine sed) [#/Area] None Seen Normal [facility] Comment on above: Order Comment: Speci men Type: URINE SPECIMENOrdering Facility: [facility] Address: [address] [place] [address] Performed By: #### 2 4356-8 ####[facility] LABCLIA [id number] [place] [address] [place] Glucose Test strip (U) [Mass/Vol] Negative Normal Negative [facility] Comment on above: Order Comment: Speci men Type: URINE SPECIMENOrdering Facility: [facility] Address: [address] [place] [address] Performed By: #### 2 4356-8 ####[facility] LABCLIA [id number] [address], [facility]95 [place] Hemoglobin Ql (U) Negative Normal Negative [facility] Comment on above: Order Comment: Speci men Type: URINE SPECIMENOrdering Facility: [facility] Address: [address] [place] [address] Performed By: #### 2 4356-8 ####[facility] LABCLIA [id number] [address], [facility]95 [place] Hyaline casts (Urine sed) [#/Area] 0 /[LPF] Normal 0 /LPF [facility] Comment on above: Order Comment: Speci men Type: URINE SPECIMENOrdering Facility: [facility] Address: [address] [place] [address] Performed By: #### 2 4356-8 ####[facility] LABCLIA [id number] [facility] [address], [facility]95 [place] Ketones Ql (U) Negative Normal Negative [facility] Comment on above: Order Comment: Speci men Type: URINE SPECIMENOrdering Facility: [facility] Address: [address] [place] [address] Performed By: #### 2 4356-8 ####[facility] LABCLIA [id number] [address], [facility]95 [place] Leukocyte esterase Test strip Ql (U) Negative Normal Negative [facility] Comment on above: Order Comment: Speci men Type: URINE SPECIMENOrdering Facility: [facility] Address: [address] [place] [address] Performed By: #### 2 4356-8 ####[facility] LABCLIA [id number] [address], [facility]95 [place] Nitrite Ql (U) Negative Normal Negative [facility] Comment on above: Order Comment: Speci men Type: URINE SPECIMENOrdering Facility: [facility] Address: [address] [place] [address] Performed By: #### 2 4356-8 ####[facility] LABCLIA [id number] [place] [address] [place] pH (U) 6.0 [pH] Normal <8.5 [facility] Comment on above: Order Comment: Speci men Type: URINE SPECIMENOrdering Facility: [facility] Address: [address] [place] [address] Performed By: #### 2 4356-8 ####[facility] LABIA [id number] [place] [address] [place] Protein (U) [Mass/Vol] 1+ Abnormal Negative Cl [facility] Comment on above: Order Comment: Speci men Type: URINE SPECIMENOrdering Facility: [facility] Address: [address] [place] [address] Performed By: #### 2 4356-8 ####[facility] LABIA [id number] [place] [address] [place] RBC LM.HPF (Urine sed) [#/Area] 0-2 /HPF Normal 0-2 /HPF [facility] Comment on above: Order Comment: Speci men Type: URINE SPECIMENOrdering Facility: [facility] Address: [address] [place] [address] Performed By: #### 2 4356-8 ####[facility] LABIA [id number] [place] [address] [place] Specific gravity (U) [Rel density] 1.021 Normal 1.005-1.[address] [facility] Comment on above: Order Comment: Speci men Type: URINE SPECIMENOrdering Facility: [facility] Address: [address] [place] [address] Performed By: #### 2 4356-8 ####[facility] [id number] [place] [address] [place] Urobilinogen Ql (U) 0.2 EU/dL Normal 0.2-1.0 EU/dL [facility] Comment on above: Order Comment: Speci men Type: URINE SPECIMENOrdering Facility: [facility] Address: [address] [place] [address] Performed By: #### 2 4356-8 ####[facility] [id number] [place] [address] [place] WBC LM.HPF (Urine sed) [#/Area] 0-5 /HPF Normal 0-5 /HPF [facility] Comment on above: Order Comment: Speci men Type: URINE SPECIMENOrdering Facility: [facility] Address: [address] [place] [address] Performed By: #### 2 4356-8 ####[facility] [id number] [place] [address] [place] CBC W Auto Differential pane l (Bld)on 04-11-2025 Basophils (Bld) [#/Vol] 0.04 10*3/uL [facility] Basophils/100 WBC (Bld) 0.5 % [facility] Differential cell count method Nom (Bld) Auto [facility] Eosinophils (Bld) [#/Vol] 0.2 10*3/uL [facility] Eosinophils/100 WBC (Bld) 2.3 % [facility] Erythrocyte distribution width (RBC) [Ratio] 13.2 % 11.5 - 15.0 % [facility] Hematocrit (Bld) [Volume fraction] 41.7 % 39.0 - 51.0 % [facility] Hemoglobin (Bld) [Mass/Vol] 14 g/dL 13.0 - 17.0 g/dL [facility] Immature granulocytes (Bld) [#/Vol] 0.03 10*3/uL [facility] Immature granulocytes/100 WBC (Bld) 0.4 % [facility] Interpretation and review of laboratory results Abnormal [facility] Lymphocytes (Bld) [#/Vol] 2.21 10*3/uL [facility] Lymphocytes/100 WBC (Bld) 25.8 % [facility] MCH (RBC) [Entitic mass] 29.5 pg 26.0 - 34.0 pg [facility] MCHC (RBC) [Mass/Vol] 33.6 g/dL 30.5 - 36.0 g/dL [facility] MCV (RBC) [Entitic vol] 87.8 fL 80.0 - 100.0 fL [facility] Monocytes (Bld) [#/Vol] 0.99 10*3/uL High [facility] Monocytes/100 WBC (Bld) 11.6 % [facility] Neutrophils (Bld) [#/Vol] 5.08 10*3/uL [facility] Neutrophils/100 WBC (Bld) 59.4 % [facility] Nucleated RBC (Bld) [#/Vol] [facility] Nucleated RBC/100 WBC (Bld) [Ratio] 0 % /100 WBC [facility] Platelet mean volume (Bld) [Entitic vol] 10.5 fL 9.0 - 12.7 fL [facility] Platelets (Bld) [#/Vol] 275 10*3/uL [facility] RBC (Bld) [#/Vol] 4.75 10*6/uL 4.20 - 6.00 m/uL [facility] WBC (Bld) [#/Vol] 8.55 10*3/uL [facility] Basophils (Bld) [#/Vol] 0.04 10*3/uL Normal <0.11 [facility] Comment on above: Order Comment: Speci men Type: BLOOD SPECIMENOrdering Facility: [facility] Address: [address] [place] [address] Performed By: #### 5 7021-8 ####[facility] LABCLIA [id number] [address] [place] Basophils/100 WBC (Bld) 0.5 % Normal [facility] Comment on above: Order Comment: Speci men Type: BLOOD SPECIMENOrdering Facility: [facility] Address: [address] [place] [address] Performed By: #### 5 7021-8 ####[facility] LABCLIA [id number] [place] [address] [place] Differential cell count method Nom (Bld) Auto Normal [facility] Comment on above: Order Comment: Speci men Type: BLOOD SPECIMENOrdering Facility: [facility] Address: [address] [place] [address] Performed By: #### 5 7021-8 ####[facility] LABCLIA [id number] [place] [address] [place] Eosinophils (Bld) [#/Vol] 0.20 10*3/uL Normal <0.46 [facility] Comment on above: Order Comment: Speci men Type: BLOOD SPECIMENOrdering Facility: [facility] Address: [address] [place] [address] Performed By: #### 5 7021-8 ####[facility] LABCLIA [id number] [place] [address] [place] Eosinophils/100 WBC (Bld) 2.3 % Normal [facility] Comment on above: Order Comment: Speci men Type: BLOOD SPECIMENOrdering Facility: [facility] Address: [address] [place] [address] Performed By: #### 5 7021-8 ####[facility] LABCLIA [id number] [place] [address] [place] Erythrocyte distribution width (RBC) [Ratio] 13.2 % Normal 11.5-15.0 [facility] Comment on above: Order Comment: Speci men Type: BLOOD SPECIMENOrdering Facility: [facility] Address: [address] [place] [address] Performed By: #### 5 7021-8 ####[facility] LABCLIA [id number] [place] [address] [place] Hematocrit (Bld) [Volume fraction] 41.7 % Normal 39.0-51.0 [facility] Comment on above: Order Comment: Speci men Type: BLOOD SPECIMENOrdering Facility: [facility] Address: [address] [place] [address] Performed By: #### 5 7021-8 ####[facility] LABIA [id number] [place] [address] [place] Hemoglobin (Bld) [Mass/Vol] 14.0 g/dL Normal 13.0-17.0 [facility] Comment on above: Order Comment: Speci men Type: BLOOD SPECIMENOrdering Facility: [facility] Address: [address] [place] [address] Performed By: #### 5 7021-8 ####[facility] LABIA [id number] [place] [address] [place] Immature granulocytes (Bld) [#/Vol] 0.03 10*3/uL Normal <0.10 [facility] Comment on above: Order Comment: Speci men Type: BLOOD SPECIMENOrdering Facility: [facility] Address: [address] [place] [address] Performed By: #### 5 7021-8 ####[facility] LABIA [id number] [place] [address] [place] Immature granulocytes/100 WBC (Bld) 0.4 % Normal [facility] Comment on above: Order Comment: Speci men Type: BLOOD SPECIMENOrdering Facility: [facility] Address: [address] [place] [address] Performed By: #### 5 7021-8 ####[facility] LABIA [id number] [place] [address] [place] Lymphocytes (Bld) [#/Vol] 2.21 10*3/uL Normal 1.00-4.00 [facility] Comment on above: Order Comment: Speci men Type: BLOOD SPECIMENOrdering Facility: [facility] Address: [address] [place] [address] Performed By: #### 5 7021-8 ####[facility] LABIA [id number] [place] [address] [place] Lymphocytes/100 WBC (Bld) 25.8 % Normal [facility] Comment on above: Order Comment: Speci men Type: BLOOD SPECIMENOrdering Facility: [facility] Address: [address] [place] [address] Performed By: #### 5 7021-8 ####[facility] [id number] [place] [address] [place] MCH (RBC) [Entitic mass] 29.5 pg Normal 26.0-34.0 [facility] Comment on above: Order Comment: Speci men Type: BLOOD SPECIMENOrdering Facility: [facility] Address: [address] [place] [address] Performed By: #### 5 7021-8 ####[facility] LABIA [id number] [place] [address] [place] MCHC (RBC) [Mass/Vol] 33.6 g/dL Normal 30.5-36.0 [facility] Comment on above: Order Comment: Speci men Type: BLOOD SPECIMENOrdering Facility: [facility] Address: [address] [place] [address] Performed By: #### 5 7021-8 ####[facility] LABIA [id number] [place] [address] [place] MCV (RBC) [Entitic vol] 87.8 fL Normal 80.0-100.0 [facility] Comment on above: Order Comment: Speci men Type: BLOOD SPECIMENOrdering Facility: [facility] Address: [address] [place] [address] Performed By: #### 5 7021-8 ####[facility] LABCLIA [id number] [facility] [address], [place] [address] [place] Monocytes (Bld) [#/Vol] 0.99 10*3/uL High <0.87 [facility] Comment on above: Order Comment: Speci men Type: BLOOD SPECIMENOrdering Facility: [facility] Address: [address] [place] [address] Performed By: #### 5 7021-8 ####[facility] LABCLIA [id number] [facility] [address], [place] [address] [place] Monocytes/100 WBC (Bld) 11.6 % Normal [facility] Comment on above: Order Comment: Speci men Type: BLOOD SPECIMENOrdering Facility: [facility] Address: [address] [place] [address] Performed By: #### 5 7021-8 ####[facility] LABCLIA [id number] [address], [place] [address] [place] Neutrophils (Bld) [#/Vol] 5.08 10*3/uL Normal 1.45-7.50 [facility] Comment on above: Order Comment: Speci men Type: BLOOD SPECIMENOrdering Facility: [facility] Address: [address] [place] [address] Performed By: #### 5 7021-8 ####[facility] LABCLIA [id number] [place] [address] [place] Neutrophils/100 WBC (Bld) 59.4 % Normal [facility] Comment on above: Order Comment: Speci men Type: BLOOD SPECIMENOrdering Facility: [facility] Address: [address] [place] [address] Performed By: #### 5 7021-8 ####[facility] LABCLIA [id number] [facility] [address], [facility]95 [place] Nucleated RBC (Bld) [#/Vol] 10*3/uL Normal <0.01 [facility] Comment on above: Order Comment: Speci men Type: BLOOD SPECIMENOrdering Facility: [facility] Address: [address] [place] [address] Performed By: #### 5 7021-8 ####[facility] LABCLIA [id number] [address] [address] [place] Nucleated RBC/100 WBC (Bld) [Ratio] 0.0 /[address] [facility] Comment on above: Order Comment: Speci men Type: BLOOD SPECIMENOrdering Facility: [facility] Address: [address] [place] [address] Performed By: #### 5 7021-8 ####[facility] LABCLIA [id number] [place] [address] [place] Platelet mean volume (Bld) [Entitic vol] 10.5 fL Normal 9.0-12.7 [facility] Comment on above: Order Comment: Speci men Type: BLOOD SPECIMENOrdering Facility: [facility] Address: [address] [place] [address] Performed By: #### 5 7021-8 ####[facility] LABIA [id number] [place] [address] [place] Platelets (Bld) [#/Vol] 275 10*3/uL Normal 150-400 [facility] Comment on above: Order Comment: Speci men Type: BLOOD SPECIMENOrdering Facility: [facility] Address: [address] [place] [address] Performed By: #### 5 7021-8 ####[facility] LABIA [id number] [place] [address] [place] RBC (Bld) [#/Vol] 4.75 10*6/uL Normal 4.20-6.00 [facility] Comment on above: Order Comment: Speci men Type: BLOOD SPECIMENOrdering Facility: [facility] Address: [address] [place] [address] Performed By: #### 5 7021-8 ####[facility] LABCLIA [id number] [place] [address] [place] WBC (Bld) [#/Vol] 8.55 10*3/uL Normal 3.70-11.00 [facility] Comment on above: Order Comment: Speci men Type: BLOOD SPECIMENOrdering Facility: [facility] Address: [address] [place] [address] Performed By: #### 5 7021-8 ####[facility] LABIA [id number] [place] [address] [place] CNOVon 04-11-[address] [facility] Comprehensive metabolic 2000 panelon 04-11-2025 Albumin [Mass/Vol] 3.8 g/dL Low 3.9-4.9 [facility] Comment on above: Order Comment: Speci men Type: BLOOD SPECIMENOrdering Facility: [facility] Address: [address] [place] [address] Performed By: #### 2 4323-8, LIPNF, , 2132-06 ####[facility] LABIA [id number] [place] [address] [place] ALP [Catalytic activity/Vol] 83 U/L Normal 38-113 [facility] Comment on above: Order Comment: Speci men Type: BLOOD SPECIMENOrdering Facility: [facility] Address: [address] [place] [address] Performed By: #### 2 4323-8, LIPNF, , 2132-06 ####[facility] LABIA [id number] [place] [id number] [place] ALT [Catalytic activity/Vol] 13 U/L Normal 10-54 [facility] Comment on above: Order Comment: Speci men Type: BLOOD SPECIMENOrdering Facility: [facility] Address: [address] [place] [address] Performed By: #### 2 4323-8, LIPNF, , 2132-06 ####[facility] LABCLIA [id number] [place] [address] [place] Anion gap [Moles/Vol] 12 mmol/L Normal 8-15 [facility] Comment on above: Order Comment: Speci men Type: BLOOD SPECIMENOrdering Facility: [facility] Address: [address] [place] [address] Performed By: #### 2 4323-8, LIPNF, , 2132-06 ####[facility] LABCLIA [id number] [place] [address] [place] AST [Catalytic activity/Vol] 18 U/L Normal 14-40 [facility] Comment on above: Order Comment: Speci men Type: BLOOD SPECIMENOrdering Facility: [facility] Address: [address] [place] [address] Performed By: #### 2 4323-8, LIPNF, , 2132-06 ####[facility] LABCLIA [id number] [place] [address] [place] Bilirubin [Mass/Vol] 0.3 mg/dL Normal 0.2-1.3 [facility] Comment on above: Order Comment: Speci men Type: BLOOD SPECIMENOrdering Facility: [facility] Address: [address] [place] [address] Performed By: #### 2 4323-8, LIPNF, , 2132-06 ####[facility] LABCLIA [id number] [place] [address] [place] Calcium [Mass/Vol] 9.5 mg/dL Normal 8.5-10.2 [facility] Comment on above: Order Comment: Speci men Type: BLOOD SPECIMENOrdering Facility: [facility] Address: [address] [place], [place] [address] Performed By: #### 2 4323-8, LIPNF, , 2132-06 ####[facility] LABIA [id number] [place] [address] [place] Chloride [Moles/Vol] 105 mmol/L Normal 98-107 [facility] Comment on above: Order Comment: Speci men Type: BLOOD SPECIMENOrdering Facility: [facility] Address: [address] [place] [address] Performed By: #### 2 4323-8, LIPNF, , 2132-06 ####[facility] LABIA [id number] [place] [address] [place] CO2 [Moles/Vol] 24 mmol/L Normal 22-30 [facility] Comment on above: Order Comment: Speci men Type: BLOOD SPECIMENOrdering Facility: [facility] Address: [address] [place] [address] Performed By: #### 2 4323-8, LIPNF, , 2132-06 ####[facility] [id number] [place] [address] [place] Creatinine [Mass/Vol] 1.17 mg/dL Normal 0.73-1.22 [facility] Comment on above: Order Comment: Speci men Type: BLOOD SPECIMENOrdering Facility: [facility] Address: [address] [place] [address] Performed By: #### 2 4323-8, LIPNF, , 2132-06 ####[facility] LABIA [id number] [place] [address] [place] Creatinine and Glomerular filtration rate.predicted panel (S/P/Bld) 62 mL/min/1.73m??? Normal >=60 [facility] Comment on above: Order Comment: Speci men Type: BLOOD SPECIMENOrdering Facility: [facility] Address: [address] [place] [address] Result Comment: Carlita mated Glomerular Filtration Rate (eGFR) is calculated using the 2020 CKD-EPI creatinine equation. This equation utilizes serum creatinine, sex, and age as parameters. The creatinine assay has traceable calibration to isotope dilution-mass spectrometry. Refer to KDIGO guidelines for clinical interpretation. In patients with unstable renal function, e.g. those with acute kidney injury, the eGFR may not accurately reflect actual GFR. Performed By: #### 2 4323-8, LIPMAGDY, , 2132-06 ####[facility] LABIA [id number] [address] [address] [place] Glucose [Mass/Vol] 93 mg/dL Normal 74-99 [facility] Comment on above: Order Comment: Speci men Type: BLOOD SPECIMENOrdering Facility: [facility] Address: [address] [place] [address] Result Comment: The [place] Diabetes Association (ADA) provides guidance for cutoff values for fasting glucose and random glucose. The ADA defines fasting as no caloric intake for at least 8 hours. Fasting plasma glucose results between 100 to 125 mg/dL indicate increased risk for diabetes (prediabetes).Fasting plasma glucose results greater than or equal to 126 mg/dL meet the criteria for diagnosis of diabetes. In the absence of unequivocal hyperglycemia, results should be confirmed by repeat testing. In a patient with classic symptoms of hyperglycemia or hyperglycemic crisis, random plasma glucose results greater than or equal to 200 mg/dL meet the criteria for diagnosis of diabetes.Reference: Standards of Medical Care in Diabetes 2016, [place] [employer]. Diabetes Care. 2016.39(Suppl 1). Performed By: #### 2 4323-8, LIPMAGDY, , 2132-06 ####[facility] LABIA [id number] [address] [address] [place] Potassium [Moles/Vol] 4.5 mmol/L Normal 3.7-5.1 [facility] Comment on above: Order Comment: Speci men Type: BLOOD SPECIMENOrdering Facility: [facility] Address: [address] [place] [address] Performed By: #### 2 4323-8, LIPNF, , 2132-06 ####[facility] LABCLIA [id number] [address] [address] [place] Protein [Mass/Vol] 7.4 g/dL Normal 6.3-8.0 [facility] Comment on above: Order Comment: Speci men Type: BLOOD SPECIMENOrdering Facility: [facility] Address: [address] [place] [address] Performed By: #### 2 4323-8, LIPNF, , 2132-06 ####[facility] LABIA [id number] [place] [address] [place] Sodium [Moles/Vol] 141 mmol/L Normal 136-144 [facility] Comment on above: Order Comment: Speci men Type: BLOOD SPECIMENOrdering Facility: [facility] Address: [address] [place] [address] Performed By: #### 2 4323-8, LIPNF, , 2132-06 ####[facility] LABIA [id number] [place] [id number] [place] Urea nitrogen [Mass/Vol] 17 mg/dL Normal 9-24 [facility] Comment on above: Order Comment: Speci men Type: BLOOD SPECIMENOrdering Facility: [facility] Address: [address] [place] [address] Performed By: #### 2 4323-8, LIPNF, , 2132-06 ####[facility] LABIA [id number] [address] [address] [place] HbA1c (Bld)on 04-11-2025 Average glucose Estimated from glycated hemoglobin (Bld) [Mass/Vol] 111 mg/dL Normal [facility] Comment on above: Order Comment: Speci men Type: BLOOD SPECIMENOrdering Facility: [facility] Address: [address] [place], [place] [address] Result Comment: eAG: (Estimated average glucose) is a calculated value from HgbA1c and is brand representative of the average blood glucose level in the last 2-3 month period. Performed By: #### 5 5454-3 ####[facility] LABCLIA [id number] [address] [address] [place] HbA1c (Bld) [Mass fraction] 5.5 % Normal 4.3-5.6 [facility] Comment on above: Order Comment: Raghu sandoval Type: BLOOD SPECIMENOrdering Facility: [facility] Address: [address] [place] [address] Result Comment: [place] Diabetes Association guidelines indicate that patients with HgbA1c in the range 5.7-6.4% are at increased risk for development of diabetes, and intervention by lifestyle modification may be beneficial. HgbA1c greater or equal to 6.5% is considered diagnostic of diabetes. Performed By: #### 5 5454-3 ####[facility] LABIA [id number] [place] [address] [place] LIPID PANEL, NONFASTINGon Cholesterol [Mass/Vol] 212 mg/dL High <200 [facility] Comment on above: Order Comment: Raghu sandoval Type: BLOOD SPECIMENOrdering Facility: [facility] Address: [address] [place] [address] Result Comment: <200 mg/dL, Desirable 200-239 mg/dL, Borderline high>239 mg/dL, High Performed By: #### 2 4323-8, LIPNF, 64551-2, 2-9 ####[facility] LABIA [id number] [place] [id number] [place] HDL CHOLESTEROL, NF 31 mg/dL Low >39 [facility] Comment on above: Order Comment: Raghu sandoval Type: BLOOD SPECIMENOrdering Facility: [facility] Address: [address] [place] [address] Result Comment: 40-5 9 mg/dL, Acceptable>59 mg/dL, High: Negative risk factor for coronary heart disease<40 mg/dL, Low: Positive risk factor for coronary heart disease Performed By: #### 2 4323-8, LIPNF, , 2132-06 ####[facility] LABCLIA [id number] [address] [place] LDL CHOLESTEROL CALCULATED, NF 145 mg/dL High <100 [facility] Comment on above: Order Comment: Speci men Type: BLOOD SPECIMENOrdering Facility: [facility] Address: [address] [place] [address] Result Comment: <100 mg/dL, Optimal 100-129 mg/dL, Near optimal/above optimal 130-159 mg/dL, Borderline high 160-189 mg/dL, High>189 mg/dL, Very highSecondary prevention optimal LDL Cholesterol levels are recommended to be <70 mg/dLLDL cholesterol is calculated using the Rey-NIH equation. Performed By: #### 2 4323-8, LIPNF, , 2132-06 ####[facility] LABCLIA [id number] [address] [place] LDL/HDL RATIO, NF 4.68 mg/dL High <2.54 [facility] Comment on above: Order Comment: Speci men Type: BLOOD SPECIMENOrdering Facility: [facility] Address: [address] [place] [address] Result Comment: Refe rence:1. National Cholesterol Education Program ATP III Guideline At-A-Glance Quick Desk Reference: National Heart, Lung, and Blood Hundred. National Institutes of Health. 2001: NIH Publication No. 01-3305.2. An International Atherosclerosis Society position paper: global recommendations for the management of dyslipidemia: executive summary, Atherosclerosis. 2014: 232(2):410-413. Performed By: #### 2 4323-8, LIPNF, , 2132-06 ####[facility] LABCLIA [id number] [address] [address] [place] NON HDL CHOL, NF 181 mg/dL High <130 [facility] Comment on above: Order Comment: Speci men Type: BLOOD SPECIMENOrdering Facility: [facility] Address: [address] [place] [address] Result Comment: <130 mg/dL, Optimal 130-159 mg/dL, Near optimal/above optimal 160-189 mg/dL, Borderline high 190-219 mg/dL, High>219 mg/dL, Very highSecondary prevention optimal non HDL Cholesterol levels are recommended to be <100 mg/dL Performed By: #### 2 4323-8, LIPNF, , 2132-06 ####[facility] LABCLIA [id number] [place] [address] [place] T CHOL/HDL RATIO NF 6.84 mg/dL High <5.10 [facility] Comment on above: Order Comment: Speci men Type: BLOOD SPECIMENOrdering Facility: [facility] Address: [address] [place] [address] Performed By: #### 2 4323-8, LIPNF, , 2132-06 ####[facility] LABCLIA [id number] [place] [address] [place] TRIGLYCERIDES, NF 195 mg/dL High <150 [facility] Comment on above: Order Comment: Speci men Type: BLOOD SPECIMENOrdering Facility: [facility] Address: [address] [place] [address] Result Comment: <150 mg/dL, Normal 150-199 mg/dL, Borderline high 200-499 mg/dL, High>499 mg/dL, Very high Performed By: #### 2 4323-8, LIPNF, , 2132-06 ####[facility] LABCLIA [id number] [place] [address] [place] VLDL CHOLESTEROL, NF 36 mg/dL High <30 [facility] Comment on above: Order Comment: Speci men Type: BLOOD SPECIMENOrdering Facility: [facility] Address: [address] [place] [address] Performed By: #### 2 4323-8, LIPNF, , 2132-06 ####[facility] LABCLIA [id number] [address] [address] [place] Magnesium SerPl-mCncon 04-11 Magnesium [Mass/Vol] 2.1 mg/dL Normal 1.7-2.3 [facility] Comment on above: Order Comment: Speci men Type: BLOOD SPECIMENOrdering Facility: [facility] Address: [address] [place] [address] Performed By: #### 2 4323-8, LIPNF, , 2132-06 ####[facility] LABCLIA [id number] [place] [address] [place] PSA SerPl-mCncon 04-11-2025 Prostate specific Ag [Mass/Vol] 0.19 ng/mL Normal <2.60 [facility] Comment on above: Order Comment: Speci men Type: BLOOD SPECIMENOrdering Facility: [facility] Address: [address] [place] [address] Result Comment: Tota l PSA test methodology used is the Electrochemiluminescence Immunoassay by [employer]. Total PSA values by differing methodologies cannot be interchanged. Performed By: #### 2 857-1 ####[facility] LABIA [id number] [place] [address] [place] Vit B12 SerPl-mCncon 025 Cobalamin (Vitamin B12) [Mass/Vol] 1010 pg/mL Normal 232-1245 [facility] Comment on above: Order Comment: Speci men Type: BLOOD SPECIMENOrdering Facility: [facility] Address: [address] [place], [place] [address] Performed By: #### 2 4323-8, LIPNF, , 2132-06 ####[facility] LABCLIA [id number] [place] [id number] [place] Zinc SerPl-mCncon 07-08-2025 Zinc [Mass/Vol] 59 ug/dL Low 60-120 [facility] Comment on above: Order Comment: Speci men Type: BLOOD SPECIMENOrdering Facility: [facility] Address: [address] [place] [address] Result Comment: This test was developed, and its performance characteristics determined by the [facility] Department of Pathology and Laboratory Medicine. It has not been cleared or approved by the FDA. The [facility] Department of Pathology and Laboratory Medicine is regulated under CLIA as qualified to perform high-complexity testing. This test is used for clinical purposes. It should not be regarded as investigational or for research. Performed By: #### 5 763-8 ####[facility] LABCLIA [id number] [place] [address] [place] CNPNon 03-16-[address] [facility] CNOVon 02-24-[address] [facility] CNOVon 01-09-[address] [facility] No Panel Informationon 01-09 IMPRESSION: No radiographic evidence of acute osseous injury. Precision Dancer: [facility] Transcribe Date/Time: Jan 09 2025 9:33A Dictated by : NATASHA SAAVEDRA MD This examination was interpreted and the report reviewed and electronically signed by: NATASHA SAAVEDRA MD on Jan 09 2025 9:35AM EST DIVISION OF RADIOLOGY [facility] Radiology Study observation (narrative) [facility] XR FOREARM 2V AP/LAT RTon XR FOREARM 2V AP/LAT RT Normal [facility] XR HIP 3V PELV+ AP/LAT RTon 01-09-2025 XR HIP 3V PELV+ AP/LAT RT Normal [facility] XR Pelvis and Hip - right AP and Lateral frogon 01-09-2025 IMPRESSION: No radiographic evidence of acute osseous injury [facility] Transcribe Date/Time: Jan 09 2025 9:37A Dictated by : NATASHA SAAVEDRA MD This examination was interpreted and the report reviewed and electronically signed by: NATASHA SAAVEDRA MD on Jan 09 2025 9:38AM EST DIVISION OF RADIOLOGY * * *Final Report* * * DATE OF EXAM: Jan 09 2025 9:31AM WOX [id number] - XR HIP 3V PELV+ AP/LAT RT / PROCEDURE REASON: multiple diagnoses * * * * Physician Interpretation * * * * TITLE: XR HIP 3V PELV+ AP/LAT RT CLINICAL INDICATION: Status post fall with pain TECHNIQUE: AP radiograph of the pelvis and AP/frog leg lateral radiographs of the right hip COMPARISON: Radiograph dated 09/10/2024 FINDINGS: No acute fracture or dislocation identified. Stable mild to moderate bilateral hip osteoarthritis with joint space narrowing, acetabular eburnation and marginal acetabular osteophyte formation. Atherosclerotic calcification of the vasculature. DIVISION OF RADIOLOGY Provider, [facility] - 01/09/2025 * * *Final Report* * * DATE OF EXAM: Jan 09 2025 9:31AM WOX 5352 - XR HIP 3V PELV+ AP/LAT RT / PROCEDURE REASON: multiple diagnoses * * * * Physician Interpretation * * * * TITLE: XR HIP 3V PELV+ AP/LAT RT CLINICAL INDICATION: Status post fall with pain TECHNIQUE: AP radiograph of the pelvis and AP/frog leg lateral radiographs of the right hip COMPARISON: Radiograph dated 09/10/2024 FINDINGS: No acute fracture or dislocation identified. Stable mild to moderate bilateral hip osteoarthritis with joint space narrowing, acetabular eburnation and marginal acetabular osteophyte formation. Atherosclerotic calcification of the vasculature. IMPRESSION IMPRESSION: No radiographic evidence of acute osseous injury Precision Dancer: [facility] Transcribe Date/Time: Jan 09 2025 9:37A Dictated by : NATASHA SAAVEDRA MD This examination was interpreted and the report reviewed and electronically signed by: NATASHA SAAVEDRA MD on Jan 09 2025 9:38AM EST [facility] XR Pelvis and Hip - right AP and Lateral frogOrdered By: [facility] Provider on 01-09-2025 [facility] XR Radius and Ulna - right A P and Lateralon 01-09-2025 * * *Final Report* * * DATE OF EXAM: Jan 09 2025 9:31AM WOX 5342 - XR FOREARM 2V AP/LAT RT / PROCEDURE REASON: multiple diagnoses * * * * Physician Interpretation * * * * TITLE: XR FOREARM 2V AP/LAT RT, XR WRIST 3V PA/LAT/OBL RT CLINICAL INDICATION: Status post fall with pain TECHNIQUE: 2 view radiographic study of the right forearm and 3 view radiographic study of the right wrist COMPARISON: None FINDINGS: Right forearm: No acute fracture or dislocation identified. Enthesopathy in the region of the bilateral humeral condyles. Mild ulnohumeral joint degenerative changes with mild hypertrophic change. Right wrist: No acute fracture or dislocation identified. Severe first carpal metacarpal joint osteoarthritis with severe joint space narrowing, subchondral sclerosis, subchondral cystic change and large marginal osteophyte formation. Hypertrophic change along the ulnar styloid. DIVISION OF RADIOLOGY Provider, [facility] - 01/09/2025 * * *Final Report* * * DATE OF EXAM: Jan 09 2025 9:31AM WOX 5342 - XR FOREARM 2V AP/LAT RT / PROCEDURE REASON: multiple diagnoses * * * * Physician Interpretation * * * * TITLE: XR FOREARM 2V AP/LAT RT, XR WRIST 3V PA/LAT/OBL RT CLINICAL INDICATION: Status post fall with pain TECHNIQUE: 2 view radiographic study of the right forearm and 3 view radiographic study of the right wrist COMPARISON: None FINDINGS: Right forearm: No acute fracture or dislocation identified. Enthesopathy in the region of the bilateral humeral condyles. Mild ulnohumeral joint degenerative changes with mild hypertrophic change. Right wrist: No acute fracture or dislocation identified. Severe first carpal metacarpal joint osteoarthritis with severe joint space narrowing, subchondral sclerosis, subchondral cystic change and large marginal osteophyte formation. Hypertrophic change along the ulnar styloid. IMPRESSION IMPRESSION: No radiographic evidence of acute osseous injury. Precision Dancer[facility] Transcribe Date/Time: Jan 09 2025 9:33A Dictated by : NATASHA SAAVEDRA MD This examination was interpreted and the report reviewed and electronically signed by: NATASHA SAAVEDRA MD on Jan 09 2025 9:35AM EST [facility] XR SHLDR >/=3V AP/MARIE AP/OTH R RTon 01-09-2025 XR SHLDR >/=3V AP/MARIE AP/OTHR RT Normal [facility] XR Shoulder - right 3 Viewso n 01-09-2025 IMPRESSION: No radiographic evidence of acute osseous injury. Precision Dancer: [facility] Transcribe Date/Time: Jan 09 2025 9:36A Dictated by : NATASHA SAAVEDRA MD This examination was interpreted and the report reviewed and electronically signed by: NATASHA SAAVEDRA MD on Jan 09 2025 9:37AM [facility] DIVISION OF RADIOLOGY * * *Final Report* * * DATE OF EXAM: Jan 09 2025 9:31AM WOX 5253 - XR SHLDR >/=3V AP/MARIE AP/OTHR RT / PROCEDURE REASON: multiple diagnoses * * * * Physician Interpretation * * * * TITLE: XR SHLDR >/=3V AP/MARIE AP/OTHR RT CLINICAL INDICATION: Status post fall with pain TECHNIQUE: 3 view radiographic study of the right shoulder COMPARISON: Radiograph dated 03/26/2023 FINDINGS: No acute fracture or dislocation identified. Stable hypertrophic change along the greater tuberosity. Acromioclavicular joint intact. Calcified pleural plaques partially visualized in the right hemithorax DIVISION OF RADIOLOGY Provider, [facility] - 01/09/2025 * * *Final Report* * * DATE OF EXAM: Jan 09 2025 9:31AM WOX 5253 - XR SHLDR >/=3V AP/MARIE AP/OTHR RT / PROCEDURE REASON: multiple diagnoses * * * * Physician Interpretation * * * * TITLE: XR SHLDR >/=3V AP/MARIE AP/OTHR RT CLINICAL INDICATION: Status post fall with pain TECHNIQUE: 3 view radiographic study of the right shoulder COMPARISON: Radiograph dated 03/26/2023 FINDINGS: No acute fracture or dislocation identified. Stable hypertrophic change along the greater tuberosity. Acromioclavicular joint intact. Calcified pleural plaques partially visualized in the right hemithorax IMPRESSION IMPRESSION: No radiographic evidence of acute osseous injury. Precision Dancer: [facility] Transcribe Date/Time: Jan 09 2025 9:36A Dictated by : NATASHA SAAVEDRA MD This examination was interpreted and the report reviewed and electronically signed by: NATASHA SAAVEDRA MD on Jan 09 2025 9:37AM [facility] XR WRIST 3V PA/LAT/OBL RTon 01-09-2025 XR WRIST 3V PA/LAT/OBL RT Normal [facility] XR Wrist - right PA and Late ral and Obliqueon 01-09-2025 * * *Final Report* * * DATE OF EXAM: Jan 09 2025 9:31AM WOX 5271 - XR WRIST 3V PA/LAT/OBL RT / PROCEDURE REASON: multiple diagnoses * * * * Physician Interpretation * * * * TITLE: XR FOREARM 2V AP/LAT RT, XR WRIST 3V PA/LAT/OBL RT CLINICAL INDICATION: Status post fall with pain TECHNIQUE: 2 view radiographic study of the right forearm and 3 view radiographic study of the right wrist COMPARISON: None FINDINGS: Right forearm: No acute fracture or dislocation identified. Enthesopathy in the region of the bilateral humeral condyles. Mild ulnohumeral joint degenerative changes with mild hypertrophic change. Right wrist: No acute fracture or dislocation identified. Severe first carpal metacarpal joint osteoarthritis with severe joint space narrowing, subchondral sclerosis, subchondral cystic change and large marginal osteophyte formation. Hypertrophic change along the ulnar styloid. DIVISION OF RADIOLOGY Provider, [facility] - 01/09/2025 * * *Final Report* * * DATE OF EXAM: Jan 09 2025 9:31AM WOX 5271 - XR WRIST 3V PA/LAT/OBL RT / PROCEDURE REASON: multiple diagnoses * * * * Physician Interpretation * * * * TITLE: XR FOREARM 2V AP/LAT RT, XR WRIST 3V PA/LAT/OBL RT CLINICAL INDICATION: Status post fall with pain TECHNIQUE: 2 view radiographic study of the right forearm and 3 view radiographic study of the right wrist COMPARISON: None FINDINGS: Right forearm: No acute fracture or dislocation identified. Enthesopathy in the region of the bilateral humeral condyles. Mild ulnohumeral joint degenerative changes with mild hypertrophic change. Right wrist: No acute fracture or dislocation identified. Severe first carpal metacarpal joint osteoarthritis with severe joint space narrowing, subchondral sclerosis, subchondral cystic change and large marginal osteophyte formation. Hypertrophic change along the ulnar styloid. IMPRESSION IMPRESSION: No radiographic evidence of acute osseous injury. Precision Dancer: [facility] Transcribe Date/Time: Jan 09 2025 9:33A Dictated by : NATASHA SAAVEDRA MD This examination was interpreted and the report reviewed and electronically signed by: NATASHA SAAVEDRA MD on Jan 09 2025 9:35AM EST [facility] CNOVon 12-05-[address] [facility] CNPNon 12-05-[address] [facility] CNOVon 11-25-[address] [facility] CNOV Normal [facility] CNOVon 11-23-[address] [facility] CNPTOUTREACHon 11-18-[address] [facility] CNPTOUTREACHon 11-14-[address] [facility] CBC W Auto Differential pane l (Bld)on 11-13-2024 Basophils (Bld) [#/Vol] 0.04 10*3/uL Normal <0.11 [facility] Comment on above: Order Comment: Speci men Type: BLOOD SPECIMENOrdering Facility: [facility] Address: [address] [place] [address] Performed By: #### 5 7021-8 ####[facility] LABORATORYCLIA [id number] [place] [address] [place] Basophils/100 WBC (Bld) 0.6 % Normal [facility] Comment on above: Order Comment: Speci men Type: BLOOD SPECIMENOrdering Facility: [facility] Address: [address] [place] [address] Performed By: #### 5 7021-8 ####[facility] LABORATORYCLIA [id number] [place] [address] [place] Differential cell count method Nom (Bld) Auto Normal [facility] Comment on above: Order Comment: Speci men Type: BLOOD SPECIMENOrdering Facility: [facility] Address: [address] [place] [address] Performed By: #### 5 7021-8 ####[facility] LABORATORYCLIA [id number] [place] [address] [place] Eosinophils (Bld) [#/Vol] 0.27 10*3/uL Normal <0.46 [facility] Comment on above: Order Comment: Speci men Type: BLOOD SPECIMENOrdering Facility: [facility] Address: [address] [place] [address] Performed By: #### 5 7021-8 ####[facility] LABORATORYCLIA [id number] [address] [place] Eosinophils/100 WBC (Bld) 3.9 % Normal [facility] Comment on above: Order Comment: Speci men Type: BLOOD SPECIMENOrdering Facility: [facility] Address: [address] [place] [address] Performed By: #### 5 7021-8 ####[facility] LABORATORYIA [id number] [address] [place] Erythrocyte distribution width (RBC) [Ratio] 12.8 % Normal 11.5-15.0 [facility] Comment on above: Order Comment: Speci men Type: BLOOD SPECIMENOrdering Facility: [facility] Address: [address] [place] [address] Performed By: #### 5 7021-8 ####[facility] LABORATORYIA [id number] [address] STATES [facility] Hematocrit (Bld) [Volume fraction] 40.7 % Normal 39.0-51.0 [facility] Comment on above: Order Comment: Speci men Type: BLOOD SPECIMENOrdering Facility: [facility] Address: [address] [place] [address] Performed By: #### 5 7021-8 ####[facility] LABORATORYIA [id number] [place] [address] [place] Hemoglobin (Bld) [Mass/Vol] 13.6 g/dL Normal 13.0-17.0 [facility] Comment on above: Order Comment: Speci men Type: BLOOD SPECIMENOrdering Facility: [facility] Address: [address] [place] [address] Performed By: #### 5 7021-8 ####[facility] LABORATORYCLIA [id number] [place] [address] [place] Immature granulocytes (Bld) [#/Vol] 10*3/uL Normal <0.10 [facility] Comment on above: Order Comment: Speci men Type: BLOOD SPECIMENOrdering Facility: [facility] Address: [address] [place] [address] Performed By: #### 5 7021-8 ####[facility] LABORATORYCLIA [id number] [address] Immature granulocytes/100 WBC (Bld) 0.3 % Normal [facility] Comment on above: Order Comment: Speci men Type: BLOOD SPECIMENOrdering Facility: [facility] Address: [address] [place] [address] Performed By: #### 5 7021-8 ####PAM [facility] LABORATORYIA [id number] [address] Lymphocytes (Bld) [#/Vol] 1.94 10*3/uL Normal 1.00-4.00 [facility] Comment on above: Order Comment: Speci men Type: BLOOD SPECIMENOrdering Facility: [facility] Address: [address] [place] [address] Performed By: #### 5 7021-8 ####PAM [facility] LABORATORYIA [id number] [address] Lymphocytes/100 WBC (Bld) 28.1 % Normal [facility] Comment on above: Order Comment: Speci men Type: BLOOD SPECIMENOrdering Facility: [facility] Address: [address] [place] [address] Performed By: #### 5 7021-8 ####PAM [facility] LABORATORYIA [id number] [address] [place] MCH (RBC) [Entitic mass] 29.5 pg Normal 26.0-34.0 [facility] Comment on above: Order Comment: Speci men Type: BLOOD SPECIMENOrdering Facility: [facility] Address: [address] [place] [address] Performed By: #### 5 7021-8 ####JYOTIJERSON [facility] LABORATORYIA [id number] [address] STATES [facility] MCHC (RBC) [Mass/Vol] 33.4 g/dL Normal 30.5-36.0 [facility] Comment on above: Order Comment: Speci men Type: BLOOD SPECIMENOrdering Facility: [facility] Address: [address] [place] [address] Performed By: #### 5 7021-8 ####JYOTIJERSON [facility] LABORATORYIA [id number] [place] [address] [place] MCV (RBC) [Entitic vol] 88.3 fL Normal 80.0-100.0 [facility] Comment on above: Order Comment: Speci men Type: BLOOD SPECIMENOrdering Facility: [facility] Address: [address] [place] [address] Performed By: #### 5 7021-8 ####JYOTIJERSON [facility] LABORATORYIA [id number] [address] [place] Monocytes (Bld) [#/Vol] 0.74 10*3/uL Normal <0.87 [facility] Comment on above: Order Comment: Speci men Type: BLOOD SPECIMENOrdering Facility: [facility] Address: [address] [place] [address] Performed By: #### 5 7021-8 ####JILLESTRELLA [facility] LABORATORYCLIA [id number] [address] Monocytes/100 WBC (Bld) 10.7 % Normal [facility] Comment on above: Order Comment: Speci men Type: BLOOD SPECIMENOrdering Facility: [facility] Address: [address] [place] [address] Performed By: #### 5 7021-8 ####PAM [facility] LABORATORYCLIA [id number] [place] [address] [place] Neutrophils (Bld) [#/Vol] 3.89 10*3/uL Normal 1.45-7.50 [facility] Comment on above: Order Comment: Speci men Type: BLOOD SPECIMENOrdering Facility: [facility] Address: [address] [place] [address] Performed By: #### 5 7021-8 ####JYOTIJERSON [facility] LABORATORYCLIA [id number] [place] [address] [place] Neutrophils/100 WBC (Bld) 56.4 % Normal [facility] Comment on above: Order Comment: Speci men Type: BLOOD SPECIMENOrdering Facility: [facility] Address: [address] [place] [address] Performed By: #### 5 7021-8 ####JILLJERSON [facility] LABORATORYCLIA [id number] [place] [address] [place] Nucleated RBC (Bld) [#/Vol] 10*3/uL Normal <0.01 [facility] Comment on above: Order Comment: Speci men Type: BLOOD SPECIMENOrdering Facility: [facility] Address: [address] [place] [address] Performed By: #### 5 7021-8 ####JILLESTRELLA [facility] LABORATORYCLIA [id number] [address] [place] Nucleated RBC/100 WBC (Bld) [Ratio] 0.0 /[address] [facility] Comment on above: Order Comment: Speci men Type: BLOOD SPECIMENOrdering Facility: [facility] Address: [address] [place] [address] Performed By: #### 5 7021-8 ####JILLJERSON [facility] LABORATORYIA [id number] [address] [place] Platelet mean volume (Bld) [Entitic vol] 10.1 fL Normal 9.0-12.7 [facility] Comment on above: Order Comment: Speci men Type: BLOOD SPECIMENOrdering Facility: [facility] Address: [address] [place] [address] Performed By: #### 5 7021-8 ####PAM [facility] LABORATORYCLIA [id number] [place] [address] [facility] Platelets (Bld) [#/Vol] 225 10*3/uL Normal 150-400 [facility] Comment on above: Order Comment: Speci men Type: BLOOD SPECIMENOrdering Facility: [facility] Address: [address] [place] [address] Performed By: #### 5 7021-8 ####PAM [facility] LABORATORYCLIA [id number] [address] RBC (Bld) [#/Vol] 4.61 10*6/uL Normal 4.20-6.00 [facility] Comment on above: Order Comment: Speci men Type: BLOOD SPECIMENOrdering Facility: [facility] Address: [address] [place] [address] Performed By: #### 5 7021-8 ####[facility]AM [facility]IA [id number] [address] WBC (Bld) [#/Vol] 6.90 10*3/uL Normal 3.70-11.00 [facility] Comment on above: Order Comment: Speci men Type: BLOOD SPECIMENOrdering Facility: [facility] Address: [address] [place] [address] Performed By: #### 5 7021-8 ####PAM [facility] LABORATORYIA [id number] [address] Comprehensive metabolic 2000 panelon 11-13-2024 Albumin [Mass/Vol] 3.7 g/dL Low 3.9-4.9 [facility] Comment on above: Order Comment: Speci men Type: BLOOD SPECIMENOrdering Facility: [facility] Address: [address] [place] [address] Performed By: #### 1 9123-9, [id number], 3040-3, 74220-2 ####PAM [facility] LABORATORYCLIA [id number] [place] [address] [place] ALP [Catalytic activity/Vol] 95 U/L Normal 38-113 [facility] Comment on above: Order Comment: Speci men Type: BLOOD SPECIMENOrdering Facility: [facility] Address: [address] [place] [address] Performed By: #### 1 9123-9, [id number], 3040-3, 72783-8 ####JILLESTRELLA [facility] LABORATORYCLIA [id number] [place] [address] [place] ALT [Catalytic activity/Vol] 11 U/L Normal 10-54 [facility] Comment on above: Order Comment: Speci men Type: BLOOD SPECIMENOrdering Facility: [facility] Address: [address] [place] [address] Performed By: #### 1 9123-9, [id number], 3040-3, 15153-2 ####JILLJERSON [facility] CENTERIA [id number] [place] [address] [place] Anion gap [Moles/Vol] 9 mmol/L Normal 8-15 [facility] Comment on above: Order Comment: Speci men Type: BLOOD SPECIMENOrdering Facility: [facility] Address: [address] [place] [address] Performed By: #### 1 9123-9, [id number], 3040-3, 33774-6 ####JILLESTRELLA [facility] LABORATORYCLIA [id number] [place] [address] [place] AST [Catalytic activity/Vol] 15 U/L Normal 14-40 [facility] Comment on above: Order Comment: Speci men Type: BLOOD SPECIMENOrdering Facility: [facility] Address: [address] [place] [address] Performed By: #### 1 9123-9, [id number], 3040-3, 43566-7 ####PAM [facility] LABORATORYCLIA [id number] [place] [address] [place] Bilirubin [Mass/Vol] 0.4 mg/dL Normal 0.2-1.3 [facility] Comment on above: Order Comment: Speci men Type: BLOOD SPECIMENOrdering Facility: [facility] Address: [address] [place] [address] Performed By: #### 1 9123-9, [id number], 3040-3, 35940-3 ####PAM [facility] LABORATORYCLIA [id number] [place] [address] [place] Calcium [Mass/Vol] 9.1 mg/dL Normal 8.5-10.2 [facility] Comment on above: Order Comment: Speci men Type: BLOOD SPECIMENOrdering Facility: [facility] Address: [address] [place] [address] Performed By: #### 1 9123-9, [id number], 3040-3, 83258-4 ####PAM [facility] LABORATORYCLIA [id number] [place] [address] [place] Chloride [Moles/Vol] 106 mmol/L Normal 98-107 [facility] Comment on above: Order Comment: Speci men Type: BLOOD SPECIMENOrdering Facility: [facility] Address: [address] [place] [address] Performed By: #### 1 9123-9, [id number], 3040-3, 24746-7 ####PAM [facility] LABORATORYCLIA [id number] [place] [address] [place] CO2 [Moles/Vol] 26 mmol/L Normal 22-30 [facility] Comment on above: Order Comment: Speci men Type: BLOOD SPECIMENOrdering Facility: [facility] Address: [address] [place] [address] Performed By: #### 1 9123-9, [id number], 3040-3, 26784-0 ####PAM [facility] LABORATORYCLIA [id number] [place] [address] [place] Creatinine [Mass/Vol] 1.25 mg/dL High 0.73-1.22 [facility] Comment on above: Order Comment: Raghu sandoval Type: BLOOD SPECIMENOrdering Facility: [facility] Address: [address] [place] [address] Performed By: #### 1 9123-9, [id number], 3040-3, 33206-5 ####PAM [facility] LABORATORYCLIA [id number] [place] [address] [place] [facility] Creatinine and Glomerular filtration rate.predicted panel (S/P/Bld) 58 mL/min/1.73m??? Low >=60 [facility] Comment on above: Order Comment: Raghu sandoval Type: BLOOD SPECIMENOrdering Facility: [facility] Address: [address] [place] [address] Result Comment: Carlita mated Glomerular Filtration Rate (eGFR) is calculated using the 2020 CKD-EPI creatinine equation. This equation utilizes serum creatinine, sex, and age as parameters. The creatinine assay has traceable calibration to isotope dilution-mass spectrometry. Refer to KDIGO guidelines for clinical interpretation. In patients with unstable renal function, e.g. those with acute kidney injury, the eGFR may not accurately reflect actual GFR. Performed By: #### 1 9123-9, [id number], 3040-3, 00987-7 ####PAM [facility] LABORATORYCLIA [id number] [place] [address] [place] Glucose [Mass/Vol] 96 mg/dL Normal 74-99 [facility] Comment on above: Order Comment: Raghu sandoval Type: BLOOD SPECIMENOrdering Facility: [facility] Address: [address] [place] [address] Result Comment: The [place] [employer] (ADA) provides guidance for cutoff values for fasting glucose and random glucose. The ADA defines fasting as no caloric intake for at least 8 hours. Fasting plasma glucose results between 100 to 125 mg/dL indicate increased risk for diabetes (prediabetes).Fasting plasma glucose results greater than or equal to 126 mg/dL meet the criteria for diagnosis of diabetes. In the absence of unequivocal hyperglycemia, results should be confirmed by repeat testing. In a patient with classic symptoms of hyperglycemia or hyperglycemic crisis, random plasma glucose results greater than or equal to 200 mg/dL meet the criteria for diagnosis of diabetes.Reference: Standards of Medical Care in Diabetes 2016, [place] [employer]. Diabetes Care. 2016.39(Suppl 1). Performed By: #### 1 9123-9, [id number], 3040-3, 64117-3 ####PAM [facility] LABORATORYCLIA [id number] [place] [address] [place] Potassium [Moles/Vol] 3.8 mmol/L Normal 3.7-5.1 [facility] Comment on above: Order Comment: Speci men Type: BLOOD SPECIMENOrdering Facility: [facility] Address: [address] [place] [address] Performed By: #### 1 9123-9, [id number], 3040-3, 36807-0 ####PAM [facility] LABORATORYCLIA [id number] [place] [address] [place] Protein [Mass/Vol] 6.7 g/dL Normal 6.3-8.0 [facility] Comment on above: Order Comment: Raghu sandoval Type: BLOOD SPECIMENOrdering Facility: [facility] Address: [address] [place] [address] Performed By: #### 1 9123-9, [id number], 3040-3, 13895-1 ###BRONSON [facility] LABORATORYCLIA [id number] [place] [address] [place] Sodium [Moles/Vol] 141 mmol/L Normal 136-144 [facility] Comment on above: Order Comment: Raghu sandoval Type: BLOOD SPECIMENOrdering Facility: [facility] Address: [address] [place], [place] [address] Performed By: #### 1 9123-9, [id number], 3040-3, 92224-8 ####PAM [facility] LABORATORYCLIA [id number] [place] [address] [place] Urea nitrogen [Mass/Vol] 16 mg/dL Normal 9-24 [facility] Comment on above: Order Comment: Speci men Type: BLOOD SPECIMENOrdering Facility: [facility] Address: [address] [place] [address] Performed By: #### 1 9123-9, [id number], 3040-3, 40090-0 ###BRONSON [facility] LABORATORYCLIA [id number] [place] [address] [place] PCR16va 11-13-[address] [facility] ED NOTEon 11-13-[address] [facility] ED PROV NOTEon 11-13-[address] [facility] HIGH SENSITIVITY TROPONIN T (INITIAL)on 11-13-2024 Troponin T.cardiac High sensitivity method [Mass/Vol] 14 ng/L High <12 [facility] Comment on above: Order Comment: Speci men Type: BLOOD SPECIMENOrdering Facility: [facility] Address: [address] [place] [address] Performed By: #### 1 9123-9, [id number], [facility]03, 68567-1 ###BRONSON [facility] LABORATORYCLIA [id number] [place] [address] [place] HIGH SENSITIVITY TROPONIN T (SECOND)on 11-13-2024 Troponin T.cardiac High sensitivity method [Mass/Vol] 13 ng/L High <12 [facility] Comment on above: Order Comment: Speci men Type: BLOOD SPECIMENOrdering Facility: [facility] Address: [address] [place] [address] Performed By: #### L [id number] ####PAM [facility] LABORATORYCLIA [id number] [place] [address] [place] HIGH SENSITIVITY TROPONIN T (THIRD) 3 HRS AFTER INITIALon 11-13-2024 Troponin T.cardiac High sensitivity method [Mass/Vol] 12 ng/L High <12 [facility] Comment on above: Order Comment: Speci men Type: BLOOD SPECIMENOrdering Facility: [facility] Address: [address] [place] [address] Performed By: #### L [id number] ####PAM [facility] LABORATORYCLIA [id number] [place] [address] [place] Lipase SerPl-cCncon 11-13-19 25 Lipase [Catalytic activity/Vol] 11 U/L Low 16-61 [facility] Comment on above: Order Comment: Speci men Type: BLOOD SPECIMENOrdering Facility: [facility] Address: [address] [place] [address] Performed By: #### 1 9123-9, [id number], [facility]03, 73925-6 ####BRUNESTRELLA [facility] LABORATORYCLIA [id number] [place] [address] [place] [facility] [place] Magnesium SerPl-mCncon 11-13 Magnesium [Mass/Vol] 1.9 mg/dL Normal 1.7-2.3 [facility] Comment on above: Order Comment: Speci men Type: BLOOD SPECIMENOrdering Facility: [facility] Address: [address] [place] [address] Performed By: #### 1 9123-9, [id number], [facility], 18760-3 ####PAM [facility] LABORATORYIA [id number] [place] [address] [place] XR ABDOMEN 1V SUPINEon 11-13 XR ABDOMEN 1V SUPINE Normal [facility] XR CHEST 2V FRONTAL/LATon XR CHEST 2V FRONTAL/LAT Normal [facility] CNOVon 11-10-[address] [facility] 102on 11-07-2024 102 HNO ID: [id number] Author: ANA ROSA TAYLOR HDA Service: ? Author Type: ? Type: 102 Filed: 11/07/2024 09:28 Note Text: Code Status: Full Code Normal [facility] CNPTOUTREACHon 11-03-[address] [facility] [id number] 10-27-[id number] [facility] CNPNon 10-27-[address] [facility] CNPTOUTREACHon 10-27-[address] [facility] CNTHERAPYon 10-27-[address] [facility] THERAPY NTon 10-27-[address] [facility] CNPNon 10-26-[address] [facility] CNOVon 10-24-[address] [facility] CNCOon 10-21-20[address] Letter Text [address] [facility] CNPTOUTREACHon 10-21-[address] [facility] CASE MANAGEMon 10-20-2024 CASE MANAGEM HNO ID: [id number] Author: STEPH MITCHELL RN Service: ? Author Type: Registered Nurse Type: Care Mgt Progress Note Filed: 10/20/2024 13:50 Note Text: CARE MANAGEMENT DISCHARGE NOTE SERVICE DATE: October 20, 2024 SERVICE TIME: 1:49 PM Admission Date: 10/15/2024 LOS: 5 days Discharge Arrangement Discharge Arrangement: Home with Home Health Services Arranged Medical Services: Skilled Home Health Care Type: Home Health Agency Caregiver Assessment Caregiver is ready, willing and able to meet the patient's needs as recommended by the inter-professional team: Yes Name of Caregiver: [facility] Transportation Arrangements Transportation Arrangements: Car Handoff Communication: Handoff to: Primary Care Physician Primary Care Physician Name/Phone: Adama Mendoza MD, Summary of care sent to PCP and [facility]. Additional Information: Discharge Information Row Name Admission (Current) from 10/15/2024 in [facility] Agency [facility] Start of Care -- Within 48 hours of discharge. DC order written for patient to return home with [facility]. He will be staying at his son's house upon DC. [facility] orders in EPIC for [facility]. Son to transport. SIGNATURE: Steph Mitchell RN PATIENT NAME: Lory Johnson DATE: October 20, 2024 TIME: 1:49 PM Normal [facility] CASE MANAGEM HNO ID: [id number] Author: STEPH MITCHELL RN Service: ? Author Type: Registered Nurse Type: Care Mgt Progress Note Filed: 10/20/2024 12:39 Note Text: CARE MANAGEMENT PROGRESS NOTE SERVICE DATE: 10/20/2024 SERVICE TIME: 12:11 PM LOS: 5 days Needs Prior to Discharge: Accepting Facility;Home Care Order [place] of Choice Given: Yes Level of Care Discussed: Home Care (Explained to patient's son, no preference on agency) IMM Follow Up Copy Given: Yes Copy given to:: Patient Discharge Planner Discharge Planner Name/Relationship: airam Bauer Method: By Phone EMR reviewed. PT eval pending. OT recommending [facility]. RNCM spoke to patient's son, Tim, to discuss DC planning. Referral sent to [facility], awaiting response. Will NEED F2F. CM assigned will continue to follow for DC planning needs. [facility] SIGNATURE: Steph Mitchell RN PATIENT NAME: Lory Johnson DATE: October 20, 2024 TIME: 12:11 PM [facility] 10-20-2024 [facility] HNO ID: [id number] Author: SOTO VALDERRAMA MD Service: Hospital Medicine Author Type: Physician Type: Discharge Summary Filed: 10/20/2024 13:49 Note Text: DISCHARGE SUMMARY PATIENT NAME: Lory Johnson Code Status: Full Code Highest Readmission Risk Score: 29 The 30 day readmissions risk score is derived from an internally validated risk model which evaluates patient level characteristics, utilization history, medication orders and lab results up until the day of discharge. Patients with a score of 40 or above are considered highest risk for readmission. Specific patient level drivers will be listed at the bottom of the summary. Admission Information Admission Information ADMIT DATE: 10/15/2024 DISCHARGE DATE: 10/20/2024 MY DOCTORS AND MEDICAL TEAM: My Main Hospital Doctor: Soto Valderrama MD Primary Care Provider: Adama Mendoza MD My Medical Team Members: Treatment Team: Attending Provider: Soto Valderrama MD Primary Service: 2, [facility] MY CONDITION AT DISCHARGE: Stable REASON I WAS IN THE HOSPITAL: Dementia with worsening pulmonary function from lung infection SUMMARY OF WHAT HAPPENED WHILE I WAS IN THE HOSPITAL: Treated with antibiotics and treatment completed medications adjusted and stable for now for discharge. Medication adjustments will probably be necessary. OTHER PROBLEMS/DIAGNOSIS: Principal Problem: Dementia with behavioral disturbance (HCC) Active Problems: History of CVA (cerebrovascular accident) NAIN (obstructive sleep apnea) Essential hypertension, benign Presence of stent in coronary artery in patient with coronary artery disease Zinc deficiency CKD (chronic kidney disease) stage 3, GFR 30-59 ml/min (HCC) Alzheimer dementia with behavioral disturbance (HCC) Neurocognitive disorder Resolved Problems: Hypomagnesemia Hypokalemia Hypophosphatemia Dehydration Overactive bladder Altered mental status Cough Excessive sleepiness Somnolence OPERATIONS PERFORMED WHILE IN THE HOSPITAL: None IMPORTANT TEST/PROCEDURES: No procedures performed TEST RESULTS NOT AVAILABLE AT THIS TIME: No pending results Discharge Disposition Discharge Disposition: Home With Home Care Activity When You Leave the Hospital Resume pre-hospital activity Home health care will help with physical and Occupational Therapy along with home nurse to help with medication adjustments Diet Instructions Resume your pre-hospital diet For Pain When You Leave the Hospital Use acetaminophen (Tylenol) as recommended on the bottle Additional Provider to Provider Information: Consultants: Practitioner Patt for psychiatry (patient follows at the [facility]) PROCEDURES: NONE CODE STATUS: Full code ASSESSMENT/PLAN Reason for Admission: Acute encephalopathy superimposed on dementia with behavioral disturbance after being administered Seroquel and melatonin together for first time because of wandering and Anticoagulation: Prior to admission: 81 mg aspirin Current: 81 mg aspirin INTERVAL COURSE OF EVENTS:Trazodone and as needed Haldol was successful first night. Will give 1 more night trial with increased dose of trazodone and plan discharge if he does well. Son present at bedside and pleased with progress and feels he will be able to take care of him if he continues as he is at least in the short run. This was his hope that he she would be able to handle him for a while longer at home. Continue magnesium, phosphorus and potassium supplementation 1 month Repeat postvoid residual is okay less than 300 cc Tessalon Perles chronic coughing CT chest no contrast concern for recurrent aspiration of either food or postnasal drip OBJECTIVE Smoking history:> 60 pack year smoker, quitting in 1978 EK10/15/2024 normal sinus rhythm normal EKG borderline first-degree AV block normal axis with Q waves in 3. This is similar to EKGs 10/14/2024 and similar to written report from 02/25/2018 ECHOCARDIOGRAM: 10/31/2020 Normal LV function with EF 65% grade 1 diastolic dysfunction no regional wall motion abnormality right ventricle is normal. No valvular disease normal atrial function and size Beta natruretic peptide: 10/16/2024 224 PROCALCITONIN: 10/15 0.09 Recent Labs 10/15/24 1822 10/15/24 0937 PH 7.44 -- PCO2 37 -- PO2 75* -- HCO3 25 -- BE 1 -- LACT 1.4 1.1 Recent Labs 10/15/24 1822 O2HB 95 COHB 1.4 MHGB <1.0 KWB 3.2* No results for input(s): CRP in the last 720 hours. Recent Labs 10/19/24 1353 10/18/24 0516 10/17/24 1058 10/16/24 0534 10/15/24 0937 WBC 8.12 9.46 7.48 < > 7.48 RBC 4.48 4.35 4.51 < > 4.30 HB 13.4 13.1 13.6 < > 12.8* HCT 39.5 37.6* 39.1 < > 38.2* PLT 233 212 218 < > 201 MCV 88.2 86.4 86.7 < > 88.8 MCH 29.9 30.1 30.2 < > 29.8 MPV 10.0 10.2 9.9 < > 9.5 ABSNEUT 5.13 -- -- -- 4.69 NEUTP 63.3 -- -- -- 62.8 LYMPHP 24.1 -- -- -- 23. (more content not included)... Normal [facility] CNPNon 10-20-[address] [facility] CONSULT PROGon 10-20-2024 CONSULT PROG HNO ID: [id number] Author: MERVIN BELTRE APRN.EMBROIDERY ASSISTANT Service: Psychiatry Author Type: Nurse Practitioner Type: Consult Progress Note Filed: 10/20/2024 13:45 Note Text: CL FOLLOW UP - PSYCHIATRY CONSULTATION PROGRESS NOTE SERVICE DATE: October 20, 2024 SERVICE TIME: AM Visit Type: In person Subjective PRESENT HISTORY: -Chart and labs reviewed. No behavioral events reported overnight. Patient reportedly walked up and down the [place] with occupational therapy today. -On assessment patient seated in bedside chair with son at bedside. Patient alert to self only-his baseline. Patient and plan of care reviewed with patient's son. He is in agreement with plan all questions answered. -Patient plan of care reviewed with primary team. Does Patient Have Any Suicidal Ideations: denys MEDICATIONS: Current Facility-Administered Medications Medication Dose Route Frequency Provider Last Rate Last Admin pyridoxine (vitamin B6) 150 mg tab(s) (VITAMIN B6) 150 mg ORAL DAILY GlaMervin roy, MOTEL FRONT DESK ATTENDANT.EMBROIDERY ASSISTANT 150 mg at 10/20/24 1319 traZODone 50 mg tab(s) (DESYREL) 50 mg ORAL AT BEDTIME GlaMervin roy, MOTEL FRONT DESK ATTENDANT.EMBROIDERY ASSISTANT 50 mg at 10/19/242019 benzonatate 100 mg cap(s) (TESSALON PERLE) 100 mg ORAL TID Mervin Beltre, MOTEL FRONT DESK ATTENDANT.EMBROIDERY ASSISTANT 100 mg at 10/20/[address] 125 mg tab(s) (DEPAKOTE) 125 mg ORAL AT BEDTIME GlaMervin roy, MOTEL FRONT DESK ATTENDANT.EMBROIDERY ASSISTANT 125 mg at 10/19/24 2019 zinc sulfate 220 mg capsule(s) 220 mg ORAL DAILY Mervin Beltre, MOT[employer] FR[employer] DESK ATTENDANT.EMBROIDERY ASSISTANT 220 mg at 10/20/24 0952 traZODone 12.5 mg tab(s) (DESYREL) 12.5 mg ORAL QID PRN Mervin Beltre, MOTEL FR[employer] DESK ATTENDANT.EMBROIDERY ASSISTANT 12.5 mg at 10/19/24 0245 phosphorus 250 mg tab(s) (K PHOS NEUTRAL) 250 mg ORAL BID PC Soto Valderrama MD 250 mg at 10/20/24 09 magnesium oxide 400 mg tab(s) (MAG-OX) 400 mg ORAL BID Soto Valderrama MD 400 mg at 10/20/24951 potassium chloride ER 10 mEq tab(s) (KLOR-CON) 10 mEq ORAL BID Soto Valderrama MD 10 mEq at 10/20/24951 amLODIPine 10 mg tab(s) (NORVASC) 10 mg ORAL DAILY Soto Valderrama MD 10 mg at 10/20/24951 metoprolol succinate ER (TOPROL XL) tab(s) 75 mg 75 mg ORAL DAILY Soto Valderrama MD 75 mg at 10/20/24951 aspirin, enteric coated 81 mg tab(s) 81 mg ORAL DAILY Nubia Salinas MD 81 mg at 10/20/24 0952 pravastatin 80 mg tab(s) (PRAVACHOL) 80 mg ORAL AT BEDTIME Nubia Salinas MD 80 mg at 10/19/241957 pantoprazole DR 40 mg tab(s) (PROTONIX) 40 mg ORAL BEFORE BREAKFAST DAILY Nubia Salinas MD 40 mg at 10/20/24 0700 donepezil 10 mg tab(s) (ARICEPT) 10 mg ORAL AT BEDTIME Nubia Salinas MD 10 mg at 10/19/242020 memantine 10 mg tab(s) (NAMENDA) 10 mg ORAL BID Nubia Salinas MD 10 mg at 10/20/24 0952 melatonin 6 mg tab(s) 6 mg ORAL DAILY (8 PM) Nubia Salinas MD 6 mg at 10/19/24 1848 Objective LABS : Lab Results Component Value Date/Time WBC 8.12 10/19/2024 01:53 PM WBC 8.19 02/18/2021 12:18 PM RBC 4.48 10/19/2024 01:53 PM RBC 4.83 02/18/2021 12:18 PM HCT 39.5 10/19/2024 01:53 PM HCT 42.8 02/18/2021 12:18 PM MCV 88.2 10/19/2024 01:53 PM MCV 88.6 02/18/2021 12:18 PM MCH 29.9 10/19/2024 01:53 PM MCH 29.4 02/18/2021 12:18 PM MCHC 33.9 10/19/2024 01:53 PM MCHC 33.2 02/18/2021 12:18 PM RDWCV 12.9 10/19/2024 01:53 PM RDWCV 13.5 02/18/2021 12:18 PM PLT 233 10/19/2024 01:53 PM PLT 216 02/18/2021 12:18 PM NEUTP 63.3 10/19/2024 01:53 PM NEUTP 54.7 02/18/2021 12:18 PM LYMPHP 24.1 10/19/2024 01:53 PM LYMPHP 30.4 02/18/2021 12:18 PM MONOP 10.3 10/19/2024 01:53 PM MONOP 10.4 02/18/2021 12:18 PM EODINP 1.7 10/19/2024 01:53 PM EODINP 3.9 02/18/2021 12:18 PM BASOP 0.5 10/19/2024 01:53 PM BASOP 0.6 02/18/2021 12:18 PM ABSNEUT 5.13 10/19/2024 01:53 PM ABSNEUT 4.46 02/18/2021 12:18 PM ABSMONO 0.84 10/19/2024 01:53 PM ABSMONO 0.85 02/18/2021 12:18 PM ABSEOSIN 0.14 10/19/2024 01:53 PM ABSEOSIN 0.32 02/18/2021 12:18 PM ABSBASO 0.04 10/19/2024 01:53 PM ABSBASO 0.05 02/18/2021 12:18 PM GLUC 113 (H) 10/19/2024 01:53 PM GLUC 98 02/18/2021 12:18 PM NA 142 10/19/2024 01:53 PM NA 142 02/18/2021 12:18 PM K 4.0 10/19/2024 01:53 PM K 3.9 02/18/2021 12:18 PM CHLOR 107 10/19/2024 01:53 PM CHLOR 105 02/18/2021 12:18 PM BUN 14 10/19/2024 01:53 PM BUN 10 02/18/2021 12:18 PM CREAT 1.08 10/19/2024 01:53 PM CREAT 1.03 02/18/2021 12:18 PM MG 2.1 10/19/2024 01:53 PM MG 2.0 02/18/2021 12:18 PM TSH 3.030 10/16/2024 05:34 AM CO2 25 10/19/2024 01:53 PM CO2 27 02/18/2021 12:18 PM TPROT 6.4 10/18/2024 05:16 AM TPROT 7.7 02/18/2021 12:18 PM ALB 3.6 (L) 10/19/2024 01:53 PM ALB 4.5 02/18/2021 12:18 PM CA 9.3 10/19/2024 01:53 PM CA 9.6 02/18/2021 12:18 PM AST 16 10/18/2024 05:16 AM AST 32 02/18/2021 12:18 PM ALT 12 10/18/2024 05:16 AM ALT 41 02/18/2021 12:18 PM ALKPHOS 99 10/18/2024 05:16 AM ALKPHOS 98 02/18/2021 12:18 PM TBILI 0.4 10/18/2024 05:16 AM TBILI 0.5 02/18/2021 12:18 PM Vital Signs: 10/19/24 0814 10/19/24 1731 10/19/24 2008 10/20/24 (more content not included)... Normal [facility] CT CHEST WO IVCONon 10-20-19 CT CHEST WO IVCON * * *Final Report* * * DATE OF EXAM: Oct 20 2024 9:17AM [facility] [place] CHEST WO IVCON / PROCEDURE REASON: Aspiration * * * * Physician Interpretation * * * * EXAMINATION: CHEST CT WITHOUT CONTRAST CLINICAL HISTORY: Aspiration Technique: Spiral CT acquisition of the chest from the thoracic inlet to the upper abdomen without contrast. MQ: [id number]_6 CT Radiation dose: Integrated Dose-length product (DLP) for this visit = 327 mGy*cm CT Dose Reduction Employed: Automated exposure control(AEC) and iterative recon Comparison: Radiograph 10/19/2024. CT 07/12/2014 RESULT: Limitations: None. Lines, tubes, and devices: None. Lung parenchyma and airways: Evaluation slightly limited due to respiratory motion. Apical predominant emphysematous change. Bandlike opacity in the right upper lobe, likely atelectasis/scarring. Additional lingular and bibasilar atelectatic changes. No consolidation. No suspicious pulmonary nodule. Aspirate in the distal trachea.. Pleural space: Similar calcific pleural plaques. Trace pleural fluid. No pleural thickening. Lower neck, lymph nodes, and mediastinum: Slight heterogeneous appearance of the likely reflecting subcentimeter nodules No lymphadenopathy in the supraclavicular, axillary, mediastinal, or hilar regions. Heart, pericardium, and thoracic vessels: The thoracic aorta and main pulmonary artery are normal in caliber. Normal variant anatomy of the aortic arch with common origin of the brachiocephalic and left common carotid arteries and left vertebral artery arising directly from the arch. The cardiac chambers are normal in size. Coronary artery atherosclerotic calcifications are noted, although the study is not optimized for coronary assessment. No pericardial effusion or thickening. Bones and soft tissues: No destructive bone lesion. Chest wall is unremarkable. Upper abdomen: Moderate hiatal hernia. Focal fat adjacent to the falciform ligament. Splenic calcified granulomata. Localizer images: Unremarkable. IMPRESSION: Likely aspirated in the distal trachea without evidence of pneumonitis. Similar nonspecific multifocal calcific pleural plaques. Moderate hiatal hernia. Precision Dancer[facility] Transcribe Date/Time: Oct 20 2024 9:46A Dictated by : FELICIA GRAHAM MD This examination was interpreted and the report reviewed and electronically signed by: FELICIA GRAHAM MD on Oct 20 2024 10:01AM EST [id number] Normal [facility] THERAPY NTon 10-20-2024 THERAPY NT HNO ID: [id number] Author: NELIA LYNN OTR/Jorge L Service: Occupational Therapy Author Type: Occupational Therapist Type: Therapy (PT/OT/Speech/Resp) Filed: 10/20/2024 08:58 Note Text: Summary: OT eval Occupational Therapy Evaluation Summary SERVICE DATE: 10/20/2024 SERVICE TIME: 748 to 826 ROOM: [place] [address] OT 6 Clicks Score: 18 DISCHARGE RECOMMENDATIONS Home OT Anticipated Discharge Needs: Physical Assist at Home, Supervision at Home Physical Assist at Home for: Transfers, Finances, Ambulation, Laundry, Cleaning, Meals, Medication Management, Stairs, Safety, Self Care, Shopping, Transportation Supervision at Home due to: Impaired cognition, Decreased safety awareness Recommended Discharge Equipment: Shower Chair ASSESSMENT Response to Therapy Interventions: Cognitive Deficits, Good Participation in Activities, Needs Frequent Redirection or Reinstruction, Requires Additional Time to Complete Activities patient with flat affect, willing to participate in OOB activity. Patient demonstrates increased confusion from baseline as reported by son. Continues to be drowsy. Sitting up in bedside chair to prevent functional decline. PRECAUTIONS Fall Risk, Impulsive with Activity CURRENT HOSPITAL COURSE Dementia with behavioral disturbance Relevant Past Medical History: former > 60 pack year smoker, quitting in 1978, AAA, CAD s/p stent x3, HTN, GERD, CVA (right posterior internal capsule stroke,cortical infarct in the bilateral middle frontal gyrus), HLD, prostate cancer s/p XRT, NAIN not complaint with CPAP since June last year ,COPD with typical findings of asbestos exposure on CT chest,CKD stage 3,Alzheimers Dementia with behavioral disorder (wandering behavior) HOME LIVING Patient Lives With: Spouse Assistance Available: 24-Hour Entry To Home: Stairs, Without Rail Number Of Stairs Into Home: 2 Number Of Stairs To Bed/Bath: 0 Tub/Shower Type: tub shower Laundry: first floor- completes Equipment Owned: Grab Bars- Shower, Grab Bars- Toilet, Shower Chair (adjustable bed) PRIOR FUNCTIONAL LEVEL Required Assistance, History of Falls Assistance Required With: Finances, Cleaning, Laundry, Meals, Medication Management, Safety, Self Care, Shopping, Transportation Patient ind with functional mobility without a device. Currently staying at his sons secondary to his being in rehab for at least 2 more weeks. Son has a full set of stairs to a suite where patient has been staying. Patient often wanders with his sundowners at night. Son is very supportive. Requires assist with ADL's and IADL's. Confused at baseline Baseline Cognition: Confused, Forgetful, Sundowning, Difficulty with managing finances/money management, Difficulty recognizing people and places, Difficulty performing their usual daily tasks, Difficulty with medication management, Requires 24/7 supervision SUBJECTIVE Patient and nursing agreeable for occupational therapy evaluation. COGNITION Responsiveness: Awake (flat affect) Follows Commands: Cueing Needed, With Repetition Cueing to Follow Commands: Moderate Attention Deficits: Redirected with Cues Memory Deficits: Short Term, Residential, Recall of Medical/Personal History, Recall of Recent Events Executive Function Deficits: Judgement, Insight to Deficits Cognitive Activities Performed: re directed, re oriented, THERAPY DIAGNOSIS Reduced mobility-other, Decreased activities of daily living (ADL), Signs and Symptoms Involving Cognitive Functions and Awareness TREATMENT INTERVENTIONS Evaluation, Therapeutic Activity (22307) Timed Code Treatment (minutes): 23 Skilled Treatment Time (minutes): 38 TRAINING AND EDUCATION PROVIDED Bed Mobility, Benefits of In-Hospital Mobility, Cognitive Prosthetics, Cognitive Stimulation Activities, Command Following THERAPEUTIC SKILLS USED Activity Dosing, Cuing Verbal, Cuing Visual, Family Training, Movement Facilitation, Physical Assist FUNCTIONAL STATUS Activities of Daily Living Assist Level Additional Information Feeding Set Up, Additional Information while seated in bedside chair Grooming Set Up, Additional Information while standing at sink Bathing Upper Body Minimal Assistance, Additional Information per clinical judgement for task initiation Bathing Lower Body Minimal Assistance, Additional Information per clinical judgement for task initiation and completion Dressing Upper Body Minimal Assistance, Additional Information per clinical judgement Dressing Lower Body Minimal Assistance, Additional Information per clinical judgement Toileting Contact Guard Assistance, Additional Information for safety Mobility Assist Level Additional Information Bed Mobility Supine To Sit: Minimal Assistance, Additional Infor (more content not included)... [facility] 10-19-2024 ALLIED HEALTH HNO ID: [id number] Author: BRIANNA ROBERTSON CT Service: Radiology Author Type: Technologist Type: Allied Health Filed: 10/19/2024 15:56 Note Text: Radiology Service Progress Note PATIENT NAME: Lory Johnson DATE OF SERVICE: October 19, 2024 TIME: 3:56 PM PATIENT IDENTITY VERIFICATION COMPLETED USING TWO (2) IDENTIFIERS: Name and Date of confirmed by patient verbally and Name and Date of confirmed by identification band. FALL SCREENING: Has the patient had 2 falls in the last year or 1 fall with injury or currently using an Ambulatory Assistive Device (Walker, Cane, Wheelchair, Crutches, etc.)? Inpatient: Screened on floor PATIENT GENDER DATA: Assigned male at PATIENT RELEVANT IMPLANT DATA REVIEWED: Yes PATIENT PRESENTS WITH AN IMPLANTABLE OR ATTACHED CLINICAL PROGRAM COORDINATOR: No RADIOLOGY DEPARTMENT: MR; Exam(s) Completed: Head: Routine Brain PERIPHERAL IV DATA: Not applicable SIGNED BY: YOLIE SAPP October 19, 2024 3:56 PM [facility] ALLIED HEALTH HNO ID: [id number] Author: JENS RODRIGUEZ Tech Service: ? Author Type: Child Welfare Manager Type: Allied Health Filed: 10/19/2024 01:03 Note Text: Radiology Service Progress Note PATIENT NAME: Lory Johnson DATE OF SERVICE: October 19, 2024 TIME: 1:02 AM PATIENT IDENTITY VERIFICATION COMPLETED USING TWO (2) IDENTIFIERS: Name and Date of confirmed by identification band. FALL SCREENING: Has the patient had 2 falls in the last year or 1 fall with injury or currently using an Ambulatory Assistive Device (Walker, Cane, Wheelchair, Crutches, etc.)? Inpatient: Screened on floor PATIENT GENDER DATA: Assigned male at PATIENT RELEVANT IMPLANT DATA REVIEWED: Not Applicable PATIENT PRESENTS WITH AN IMPLANTABLE OR ATTACHED CLINICAL PROGRAM COORDINATOR: No RADIOLOGY DEPARTMENT: General X-ray: Exam(s) Completed: Chest X-Ray PERIPHERAL IV DATA: Not applicable SIGNED BY: Darling Liu October 19, 2024 1:02 AM [facility] CASE MANAGEMon 10-19-2024 CASE MANAGEM HNO ID: [id number] Author: XIN BOLIVAR RN Service: ? Author Type: Registered Nurse Type: Care Mgt Progress Note Filed: 10/19/2024 16:47 Note Text: CARE MANAGEMENT PROGRESS NOTE SERVICE DATE: 10/19/2024 SERVICE TIME: 4:45 PM LOS: 4 days Needs Prior to Discharge: To Be Determined;OT/PT Evaluation;Other: See Comment (Medical clearance) EMR reviewed, rounds completed with Dr. Valderrama. Anticipate discharge back home with son. PT/OT evaluation pending. CM will remain available for discharge planning needs. SIGNATURE: Xin Bolivar RN PATIENT NAME: Lory Johnson DATE: October 19, 2024 TIME: 4:45 PM [facility] CBC W Auto Differential pane l (Bld)on 10-19-2024 Basophils (Bld) [#/Vol] 0.04 10*3/uL Normal <0.11 [facility] Comment on above: Order Comment: Speci men Type: BLOOD SPECIMENOrdering Facility: [facility] Address: [address] [place] [address] Performed By: #### 5 7021-8 ####[facility] LABORATORYCLIA [id number] [address] STATES [facility] Basophils/100 WBC (Bld) 0.5 % Normal [facility] Comment on above: Order Comment: Speci men Type: BLOOD SPECIMENOrdering Facility: [facility] Address: [address] [place] [address] Performed By: #### 5 7021-8 ####PUT[facility] LABORATORYCLIA [id number] [place] [address] [place] Differential cell count method Nom (Bld) Auto Normal [facility] Comment on above: Order Comment: Speci men Type: BLOOD SPECIMENOrdering Facility: [facility] Address: [address] [place] [address] Performed By: #### 5 7021-8 ####PUTNAM LABORATORYCLIA [id number] [place] [address] [place] Eosinophils (Bld) [#/Vol] 0.14 10*3/uL Normal <0.46 [facility] Comment on above: Order Comment: Speci men Type: BLOOD SPECIMENOrdering Facility: [facility] Address: [address] [place] [address] Performed By: #### 5 7021-8 ####PUT[facility] LABORATORYCLIA [id number] [address] Eosinophils/100 WBC (Bld) 1.7 % Normal [facility] Comment on above: Order Comment: Speci men Type: BLOOD SPECIMENOrdering Facility: [facility] Address: [address] [place] [address] Performed By: #### 5 7021-8 ####PUT[facility] LABORATORYCLIA [id number] [address] [place] Erythrocyte distribution width (RBC) [Ratio] 12.9 % Normal 11.5-15.0 [facility] Comment on above: Order Comment: Speci men Type: BLOOD SPECIMENOrdering Facility: [facility] Address: [address] [place] [address] Performed By: #### 5 7021-8 ####PUT[facility] LABORATORYCLIA [id number] [place] [address] [place] Hematocrit (Bld) [Volume fraction] 39.5 % Normal 39.0-51.0 [facility] Comment on above: Order Comment: Speci men Type: BLOOD SPECIMENOrdering Facility: [facility] Address: [address] [place] [address] Performed By: #### 5 7021-8 ####PUTNAM LABORATORYCLIA [id number] [place] [address] [place] Hemoglobin (Bld) [Mass/Vol] 13.4 g/dL Normal 13.0-17.0 [facility] Comment on above: Order Comment: Speci men Type: BLOOD SPECIMENOrdering Facility: [facility] Address: [address] [place] [address] Performed By: #### 5 7021-8 ####PUTNAM LABORATORYCLIA [id number] [place] [address] [place] Immature granulocytes (Bld) [#/Vol] 10*3/uL Normal <0.10 [facility] Comment on above: Order Comment: Speci men Type: BLOOD SPECIMENOrdering Facility: [facility] Address: [address] [place] [address] Performed By: #### 5 7021-8 ####PUTNAM LABORATORYCLIA [id number] [place] [address] [place] Immature granulocytes/100 WBC (Bld) 0.1 % Normal [facility] Comment on above: Order Comment: Speci men Type: BLOOD SPECIMENOrdering Facility: [facility] Address: [address] [place] [address] Performed By: #### 5 7021-8 ####PUTNAM LABORATORYCLIA [id number] [place] [address] [place] Lymphocytes (Bld) [#/Vol] 1.96 10*3/uL Normal 1.00-4.00 [facility] Comment on above: Order Comment: Speci men Type: BLOOD SPECIMENOrdering Facility: [facility] Address: [address] [place] [address] Performed By: #### 5 7021-8 ####PUT[facility] LABORATORYCLIA [id number] [address] Lymphocytes/100 WBC (Bld) 24.1 % Normal [facility] Comment on above: Order Comment: Speci men Type: BLOOD SPECIMENOrdering Facility: [facility] Address: [address] [place] [address] Performed By: #### 5 7021-8 ####PUTNAM LABORATORYCLIA [id number] [address] [place] MCH (RBC) [Entitic mass] 29.9 pg Normal 26.0-34.0 [facility] Comment on above: Order Comment: Speci men Type: BLOOD SPECIMENOrdering Facility: [facility] Address: [address] [place] [address] Performed By: #### 5 7021-8 ####PUTNAM LABORATORYCLIA [id number] [address] [place] MCHC (RBC) [Mass/Vol] 33.9 g/dL Normal 30.5-36.0 [facility] Comment on above: Order Comment: Speci men Type: BLOOD SPECIMENOrdering Facility: [facility] Address: [address] [place] [address] Performed By: #### 5 7021-8 ####PUT[facility] LABORATORYCLIA [id number] [address] MCV (RBC) [Entitic vol] 88.2 fL Normal 80.0-100.0 [facility] Comment on above: Order Comment: Speci men Type: BLOOD SPECIMENOrdering Facility: [facility] Address: [address] [place] [address] Performed By: #### 5 7021-8 ####PUTNAM LABORATORYCLIA [id number] [address] [place] Monocytes (Bld) [#/Vol] 0.84 10*3/uL Normal <0.87 [facility] Comment on above: Order Comment: Speci men Type: BLOOD SPECIMENOrdering Facility: [facility] Address: [address] [place] [address] Performed By: #### 5 7021-8 ####PUTNAM LABORATORYCLIA [id number] [place] [address] [place] Monocytes/100 WBC (Bld) 10.3 % Normal [facility] Comment on above: Order Comment: Speci men Type: BLOOD SPECIMENOrdering Facility: [facility] Address: [address] [place] [address] Performed By: #### 5 7021-8 ####PUTNAM LABORATORYCLIA [id number] [place] [address] [place] Neutrophils (Bld) [#/Vol] 5.13 10*3/uL Normal 1.45-7.50 [facility] Comment on above: Order Comment: Speci men Type: BLOOD SPECIMENOrdering Facility: [facility] Address: [address] [place] [address] Performed By: #### 5 7021-8 ####PUT[facility] LABORATORYCLIA [id number] [place] [address] [place] Neutrophils/100 WBC (Bld) 63.3 % Normal [facility] Comment on above: Order Comment: Speci men Type: BLOOD SPECIMENOrdering Facility: [facility] Address: [address] [place] [address] Performed By: #### 5 7021-8 ####PUT[facility] LABORATORYCLIA [id number] [place] [address] [place] Nucleated RBC (Bld) [#/Vol] 10*3/uL Normal <0.01 [facility] Comment on above: Order Comment: Speci men Type: BLOOD SPECIMENOrdering Facility: [facility] Address: [address] [place] [address] Performed By: #### 5 7021-8 ####PUT[facility] LABORATORYCLIA [id number] [place] [address] [place] Nucleated RBC/100 WBC (Bld) [Ratio] 0.0 /100 WBC Normal [facility] Comment on above: Order Comment: Speci men Type: BLOOD SPECIMENOrdering Facility: [facility] Address: [address] [place] [address] Performed By: #### 5 7021-8 ####PUT[facility] LABORATORYCLIA [id number] [address] Platelet mean volume (Bld) [Entitic vol] 10.0 fL Normal 9.0-12.7 [facility] Comment on above: Order Comment: Speci men Type: BLOOD SPECIMENOrdering Facility: [facility] Address: [address] [place] [address] Performed By: #### 5 7021-8 ####PUT[facility] LABORATORYCLIA [id number] [address] [place] Platelets (Bld) [#/Vol] 233 10*3/uL Normal 150-400 [facility] Comment on above: Order Comment: Speci men Type: BLOOD SPECIMENOrdering Facility: [facility] Address: [address] [place] [address] Performed By: #### 5 7021-8 ####PUT[facility] LABORATORYCLIA [id number] [place] [address] [place] RBC (Bld) [#/Vol] 4.48 10*6/uL Normal 4.20-6.00 [facility] Comment on above: Order Comment: Speci men Type: BLOOD SPECIMENOrdering Facility: [facility] Address: [address] [place] [address] [place] [address] Performed By: #### 5 7021-8 ####PUTNAM LABORATORYCLIA [id number] [address] [place] WBC (Bld) [#/Vol] 8.12 10*3/uL Normal 3.70-11.00 [facility] Comment on above: Order Comment: Speci men Type: BLOOD SPECIMENOrdering Facility: [facility] Address: [address] [place] [address] [place] [address] Performed By: #### 5 7021-8 ####[facility]NAM LABORATORYCLIA [id number] [address] CONSULT PROGon 10-19-2024 CONSULT PROG HNO ID: [id number] Author: MERVIN BELTRE APRN.EMBROIDERY ASSISTANT Service: Psychiatry Author Type: Nurse Practitioner Type: Consult Progress Note Filed: 10/20/2024 08:33 Note Text: CL FOLLOW UP - PSYCHIATRY CONSULTATION PROGRESS NOTE SERVICE DATE: October 19, 2024 SERVICE TIME: AM Visit Type: In person Subjective PRESENT HISTORY: -Chart and labs reviewed. Patient received 2.5 mg Haldol, 37.5 mg as needed trazodone in past 24 hours. Per chart review patient had a productive cough and coarse breath sounds overnight. Chest x-ray ordered showing no acute process. -On assessment patient lying in bed asleep. When awoken he interacts minimally and falls back asleep. He continues to be disoriented. -Patients son inquired about getting the already scheduled outpatient MRI, here while patient is in the hospital. Does Patient Have Any Suicidal Ideations: denys MEDICATIONS: Current Facility-Administered Medications Medication Dose Route Frequency Provider Last Rate Last Admin traZODone 50 mg tab(s) (DESYREL) 50 mg ORAL AT BEDTIME Mervin Beltre APRN.CNP haloperidol lactate 2.5 mg short-acting injection (HALDOL) 2.5 mg INTRAMUSCULAR q 6 H PRN Soto Valderrama MD 2.5 mg at 10/19/24 0000 zinc sulfate 220 mg capsule(s) 220 mg ORAL DAILY Mervin Beltre APRN.EMBROIDERY ASSISTANT 220 mg at 10/18/24 1452 traZODone 12.5 mg tab(s) (DESYREL) 12.5 mg ORAL QID PRN Mervin Beltre APRN.EMBROIDERY ASSISTANT 12.5 mg at 10/19/24 0245 phosphorus 250 mg tab(s) (K PHOS NEUTRAL) 250 mg ORAL BID PC Soto Valderrama MD 250 mg at 10/18/241936 magnesium oxide 400 mg tab(s) (MAG-OX) 400 mg ORAL BID Soto Valderrama MD 400 mg at 10/18/241936 potassium chloride ER 10 mEq tab(s) (KLOR-CON) 10 mEq ORAL BID Soto Valderrama MD 10 mEq at 10/18/241936 amLODIPine 10 mg tab(s) (NORVASC) 10 mg ORAL DAILY Soto Valderrama MD 10 mg at 10/18/24 0851 metoprolol succinate ER (TOPROL XL) tab(s) 75 mg 75 mg ORAL DAILY Soto Valderrama MD 75 mg at 10/18/24 0851 aspirin, enteric coated 81 mg tab(s) 81 mg ORAL DAILY Nubia Salinas MD 81 mg at 10/18/24 0851 pravastatin 80 mg tab(s) (PRAVACHOL) 80 mg ORAL AT BEDTIME Nubia Salinas MD 80 mg at 10/18/241936 pantoprazole DR 40 mg tab(s) (PROTONIX) 40 mg ORAL BEFORE BREAKFAST DAILY Nubia Salinas MD 40 mg at 10/18/24 0648 donepezil 10 mg tab(s) (ARICEPT) 10 mg ORAL AT BEDTIME Nubia Salinas MD 10 mg at 10/18/241936 memantine 10 mg tab(s) (NAMENDA) 10 mg ORAL BID Nubia Salinas MD 10 mg at 10/18/241936 melatonin 6 mg tab(s) 6 mg ORAL DAILY (8 PM) Nubia Salinas MD 6 mg at 10/18/24 1854 Objective LABS : Lab Results Component Value Date/Time WBC 9.46 10/18/2024 05:16 AM WBC 8.19 02/18/2021 12:18 PM RBC 4.35 10/18/2024 05:16 AM RBC 4.83 02/18/2021 12:18 PM HCT 37.6 (L) 10/18/2024 05:16 AM HCT 42.8 02/18/2021 12:18 PM MCV 86.4 10/18/2024 05:16 AM MCV 88.6 02/18/2021 12:18 PM MCH 30.1 10/18/2024 05:16 AM MCH 29.4 02/18/2021 12:18 PM MCHC 34.8 10/18/2024 05:16 AM MCHC 33.2 02/18/2021 12:18 PM RDWCV 13.0 10/18/2024 05:16 AM RDWCV 13.5 02/18/2021 12:18 PM PLT 212 10/18/2024 05:16 AM PLT 216 02/18/2021 12:18 PM NEUTP 62.8 10/15/2024 09:37 AM NEUTP 54.7 02/18/2021 12:18 PM LYMPHP 23.0 10/15/2024 09:37 AM LYMPHP 30.4 02/18/2021 12:18 PM MONOP 11.9 10/15/2024 09:37 AM MONOP 10.4 02/18/2021 12:18 PM EODINP 1.7 10/15/2024 09:37 AM EODINP 3.9 02/18/2021 12:18 PM BASOP 0.5 10/15/2024 09:37 AM BASOP 0.6 02/18/2021 12:18 PM ABSNEUT 4.69 10/15/2024 09:37 AM ABSNEUT 4.46 02/18/2021 12:18 PM ABSMONO 0.89 (H) 10/15/2024 09:37 AM ABSMONO 0.85 02/18/2021 12:18 PM ABSEOSIN 0.13 10/15/2024 09:37 AM ABSEOSIN 0.32 02/18/2021 12:18 PM ABSBASO 0.04 10/15/2024 09:37 AM ABSBASO 0.05 02/18/2021 12:18 PM GLUC 106 (H) 10/18/2024 05:16 AM GLUC 98 02/18/2021 12:18 PM NA 142 10/18/2024 05:16 AM NA 142 02/18/2021 12:18 PM K 3.7 10/18/2024 05:16 AM K 3.9 02/18/2021 12:18 PM CHLOR 108 (H) 10/18/2024 05:16 AM CHLOR 105 02/18/2021 12:18 PM BUN 13 10/18/2024 05:16 AM BUN 10 02/18/2021 12:18 PM CREAT 1.17 10/18/2024 05:16 AM CREAT 1.03 02/18/2021 12:18 PM MG 1.9 10/18/2024 05:16 AM MG 2.0 02/18/2021 12:18 PM TSH 3.030 10/16/2024 05:34 AM CO2 24 10/18/2024 05:16 AM CO2 27 02/18/2021 12:18 PM TPROT 6.4 10/18/2024 05:16 AM TPROT 7.7 02/18/2021 12:18 PM ALB 3.2 (L) 10/18/2024 05:16 AM ALB 4.5 02/18/2021 12:18 PM CA 8.9 10/18/2024 05:16 AM CA 9.6 02/18/2021 12:18 PM AST 16 10/18/2024 05:16 AM AST 32 02/18/2021 12:18 PM ALT 12 10/18/2024 05:16 AM ALT 41 02/18/2021 12:18 PM ALKPHOS 99 10/18/2024 05:16 AM ALKPHOS 98 02/18/2021 12:18 PM TBILI 0.4 10/18/2024 05:16 AM TBILI 0.5 02/18/2021 12:18 PM Vital Signs: 10/18/24 2143 10/18/24 2323 10/19/24 0541 10/19/24 0814 BP: 132/79 140/101 158/73 146/71 Pulse: 71 74 72 69 Resp: 16 17 17 18 Temp: 36.5 ?C (97.7 ?F) 37.1 ?C (98.7 ?F) 36.5 ?C (97.7 ?F) (more content not included)... Normal [facility] MRI BRAIN WO IVCONon 025 MRI BRAIN WO IVCON * * *Final Report* * * DATE OF EXAM: Oct 19 2024 4:05PM [facility] 0294 - MRI BRAIN WO IVCON / PROCEDURE REASON: Transient ischemic attack (TIA) * * * * Physician Interpretation * * * * EXAMINATION: MRI BRAIN WO IVCON CLINICAL HISTORY: TIA symptoms. TECHNIQUE: Routine noncontrast MRI protocol including diffusion images. MQ: [id number] COMPARISON: Previous head CT 10/15/2024. Previous MRI of the brain 12/23/2023. RESULT: Acute Change: There is no restricted diffusion on this examination to suggest focal acute ischemia or pathologic brain parenchymal cellularity. Hemorrhage: No evidence of prior parenchymal hemorrhage on the gradient echo images. Mass Lesion/ Mass Effect: No evidence of an intracranial mass or extra-axial fluid collection. No significant mass effect. Chronic Change: Mild periventricular and scattered peripheral areas of increased T2 and FLAIR signal are present in the supratentorial white matter which is a nonspecific finding but likely represents mild chronic microvascular ischemia. Parenchyma: There is moderate generalized parenchymal volume loss. Disproportionate anterior medial temporal lobe and insular region volume loss. Correlate with patient cognitive status. Ventricles: Ventriculomegaly corresponds to the degree of parenchymal volume loss. Skull Base: Hypothalamic and pituitary region are grossly normal. Craniocervical junction is normal. No significant marrow replacement process. Vasculature: Major intracranial arterial structures, and dural venous sinuses show typical flow void, suggesting patency by spin echo criteria. Other: The visualized paranasal sinuses and mastoid air cells are clear. The orbits and extracranial soft tissues are unremarkable. IMPRESSION: Moderate generalized parenchymal volume loss. Disproportionate anterior medial temporal lobe and insular region volume loss. Correlate with patient cognitive status. Mild background chronic microvascular change. No acute abnormalities. Precision Dancer: [facility]ILITATION CENTERBecky Transcribe Date/Time: Oct 19 2024 4:09P Dictated by : CAROLEE CRAIG MD This examination was interpreted and the report reviewed and electronically signed by: CAROLEE CRAIG MD on Oct 19 2024 4:13PM EST [id number] Normal [facility] Magnesium SerPl-mCncon 10-19 Magnesium [Mass/Vol] 2.1 mg/dL Normal 1.7-2.3 [facility] Comment on above: Order Comment: Raghu sandoval Type: BLOOD SPECIMENOrdering Facility: [facility] Address: [address] [place] [address] Performed By: #### 2 4362-6, ####ESMOND LABORATORYCLIA [id number] [place] [address] [place] Renal function 2000 panelon 10-19-2024 Albumin [Mass/Vol] 3.6 g/dL Low 3.9-4.9 [facility] Comment on above: Order Comment: Raghu sandoval Type: BLOOD SPECIMENOrdering Facility: [facility] Address: [address] [place] [address] Performed By: #### 2 4362, ####PUTNAM LABORATORYCLIA [id number] [place] [address] [place] Anion gap [Moles/Vol] 10 mmol/L Normal 8-15 [facility] Comment on above: Order Comment: Speci men Type: BLOOD SPECIMENOrdering Facility: [facility] Address: [address] [place] [address] Performed By: #### 2 4362-6, ####PUTNAM LABORATORYCLIA [id number] [place] [address] [place] Calcium [Mass/Vol] 9.3 mg/dL Normal 8.5-10.2 [facility] Comment on above: Order Comment: Speci men Type: BLOOD SPECIMENOrdering Facility: [facility] Address: [address] [place] [address] Performed By: #### 2 4366, ####PUTNAM LABORATORYCLIA [id number] [place] [address] [place] Chloride [Moles/Vol] 107 mmol/L Normal 98-107 [facility] Comment on above: Order Comment: Speci men Type: BLOOD SPECIMENOrdering Facility: [facility] Address: [address] [place] [address] Performed By: #### 2 4366, ####PUTNAM LABORATORYCLIA [id number] [place] [address] [place] CO2 [Moles/Vol] 25 mmol/L Normal 22-30 [facility] Comment on above: Order Comment: Speci men Type: BLOOD SPECIMENOrdering Facility: [facility] Address: [address] [place] [address] Performed By: #### 2 4362-6, ####PUTNAM LABORATORYCLIA [id number] [place] [address] [place] Creatinine [Mass/Vol] 1.08 mg/dL Normal 0.73-1.22 [facility] Comment on above: Order Comment: Speci men Type: BLOOD SPECIMENOrdering Facility: [facility] Address: [address] [place] [address] Performed By: #### 2 4362-6, ####PUTNAM LABORATORYCLIA [id number] [place] [id number] [facility] Creatinine and Glomerular filtration rate.predicted panel (S/P/Bld) 69 mL/min/1.73m??? Normal >=60 [facility] Comment on above: Order Comment: Raghu sandoval Type: BLOOD SPECIMENOrdering Facility: [facility] Address: [address] [place] [address] Result Comment: Carlita mated Glomerular Filtration Rate (eGFR) is calculated using the 2020 CKD-EPI creatinine equation. This equation utilizes serum creatinine, sex, and age as parameters. The creatinine assay has traceable calibration to isotope dilution-mass spectrometry. Refer to KDIGO guidelines for clinical interpretation. In patients with unstable renal function, e.g. those with acute kidney injury, the eGFR may not accurately reflect actual GFR. Performed By: #### 2 4362-6, ####PUTNAM LABORATORYCLIA [id number] [place] [address] [place] [facility] Glucose [Mass/Vol] 113 mg/dL High 74-99 [facility] Comment on above: Order Comment: Raghu sandoval Type: BLOOD SPECIMENOrdering Facility: [facility] Address: [address] [place] [address] Result Comment: The [place] [employer] (ADA) provides guidance for cutoff values for fasting glucose and random glucose. The ADA defines fasting as no caloric intake for at least 8 hours. Fasting plasma glucose results between 100 to 125 mg/dL indicate increased risk for diabetes (prediabetes). Fasting plasma glucose results greater than or equal to 126 mg/dL meet the criteria for diagnosis of diabetes. In the absence of unequivocal hyperglycemia, results should be confirmed by repeat testing. In a patient with classic symptoms of hyperglycemia or hyperglycemic crisis, random plasma glucose results greater than or equal to 200 mg/dL meet the criteria for diagnosis of diabetes. Reference: Standards of Medical Care in Diabetes 2016, [place] [employer]. Diabetes Care. 2016.39(Suppl 1). Performed By: #### 2 4362-6, ####PUTNAM LABORATORYCLIA [id number] [place] [address] [place] Phosphate [Mass/Vol] 3.2 mg/dL Normal 2.7-4.8 [facility] Comment on above: Order Comment: Speci men Type: BLOOD SPECIMENOrdering Facility: [facility] Address: [facility] [place] [address] Performed By: #### 2 4362-6, ####PUTNAM LABORATORYCLIA [id number] [place] [address] [place] Potassium [Moles/Vol] 4.0 mmol/L Normal 3.7-5.1 [facility] Comment on above: Order Comment: Speci men Type: BLOOD SPECIMENOrdering Facility: [facility] Address: [address] [place] [address] Performed By: #### 2 4362-6, ####PUTNAM LABORATORYCLIA [id number] [place] [address] [place] Sodium [Moles/Vol] 142 mmol/L Normal 136-144 [facility] Comment on above: Order Comment: Speci men Type: BLOOD SPECIMENOrdering Facility: [facility] Address: [address] [place] [address] Performed By: #### 2 4362-6, ####PUTNAM LABORATORYCLIA [id number] [place] [address] [place] Urea nitrogen [Mass/Vol] 14 mg/dL Normal 9-24 [facility] Comment on above: Order Comment: Speci men Type: BLOOD SPECIMENOrdering Facility: [facility] Address: [address] [place] [address] Performed By: #### 2 4362-6, ####PUTNAM LABORATORYCLIA [id number] [place] [id number] [place] XR CHEST 1V FRONTAL PORTon 0 10-19-2024 XR CHEST 1V FRONTAL PORT * * *Final Report* * * DATE OF EXAM: Oct 19 2024 1:04AM MDX [id number] - XR CHEST 1V FRONTAL PORT / PROCEDURE REASON: Cough * * * * Physician Interpretation * * * * EXAMINATION: CHEST RADIOGRAPH (PORTABLE SINGLE VIEW AP) semiupright Exam Date/Time: 10/19/2024 1:04 AM CLINICAL HISTORY: Cough MQ: XCPR_5 Comparison: 10/15/2024, 07/18/2019 and 02/02/2017 RESULT: Lines, tubes, and devices: None. Lungs and pleura: No pneumothorax. Hypoventilatory lung volumes with similar blunting of left costophrenic angle. No visible consolidation. Redemonstration of scattered calcified pleural plaques. Cardiomediastinal silhouette: Stable cardiomediastinal silhouette. Other: No acute congestion or interstitial edema. IMPRESSION: No visible acute process, redemonstration of calcified pleural plaques. Precision Dancer: P[facility] Transcribe Date/Time: Oct 19 2024 1:47A Dictated by : NANCY RIVERA MD This examination was interpreted and the report reviewed and electronically signed by: NANCY RIVERA MD on Oct 19 2024 1:49AM EST [id number] Normal [facility] CASE MANAGEMon 10-18-2024 CASE MANAGEM HNO ID: [id number] Author: DARBY DELUCA RN Service: ? 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 SIGNATURE: Darby Deluca RN PATIENT NAME: Lory Johnson DATE: October 18, 2024 TIME: 2:36 PM Normal [facility] CBC panel Auto (Bld)on 10-18 Erythrocyte distribution width (RBC) [Ratio] 13.0 % Normal 11.5-15.0 [facility] Comment on above: Order Comment: Speci men Type: BLOOD SPECIMENOrdering Facility: [facility] Address: [address] [place] [address] Performed By: #### 5 8410-2 ####PUTNAM LABORATORYCLIA [id number] [address] Hematocrit (Bld) [Volume fraction] 37.6 % Low 39.0-51.0 [facility] Comment on above: Order Comment: Speci men Type: BLOOD SPECIMENOrdering Facility: [facility] Address: [address] [place] [address] Performed By: #### 5 8410-2 ####PUTNAM LABORATORYCLIA [id number] [address] Hemoglobin (Bld) [Mass/Vol] 13.1 g/dL Normal 13.0-17.0 [facility] Comment on above: Order Comment: Speci men Type: BLOOD SPECIMENOrdering Facility: [facility] Address: [address] [place] [address] Performed By: #### 5 8410-2 ####PUTNAM LABORATORYCLIA [id number] [address] MCH (RBC) [Entitic mass] 30.1 pg Normal 26.0-34.0 [facility] Comment on above: Order Comment: Speci men Type: BLOOD SPECIMENOrdering Facility: [facility] Address: [address] [place] [address] Performed By: #### 5 8410-2 ####PUTNAM LABORATORYCLIA [id number] [address] MCHC (RBC) [Mass/Vol] 34.8 g/dL Normal 30.5-36.0 [facility] Comment on above: Order Comment: Speci men Type: BLOOD SPECIMENOrdering Facility: [facility] Address: [address] [place] [address] Performed By: #### 5 8410-2 ####PUTNAM LABORATORYCLIA [id number] [address] MCV (RBC) [Entitic vol] 86.4 fL Normal 80.0-100.0 [facility] Comment on above: Order Comment: Speci men Type: BLOOD SPECIMENOrdering Facility: [facility] Address: [address] [place] [address] Performed By: #### 5 8410-2 ####PUTNAM LABORATORYCLIA [id number] [place] [address] [place] Nucleated RBC (Bld) [#/Vol] 10*3/uL Normal <0.01 [facility] Comment on above: Order Comment: Speci men Type: BLOOD SPECIMENOrdering Facility: [facility] Address: [address] [place] [address] Performed By: #### 5 8410-2 ####PUTNAM LABORATORYCLIA [id number] [place] [address] [place] Platelet mean volume (Bld) [Entitic vol] 10.2 fL Normal 9.0-12.7 [facility] Comment on above: Order Comment: Speci men Type: BLOOD SPECIMENOrdering Facility: [facility] Address: [address] [place] [address] Performed By: #### 5 8410-2 ####PUTNAM LABORATORYCLIA [id number] [address] [place] Platelets (Bld) [#/Vol] 212 10*3/uL Normal 150-400 [facility] Comment on above: Order Comment: Speci men Type: BLOOD SPECIMENOrdering Facility: [facility] Address: [address] [place] [address] Performed By: #### 5 8410-2 ####PUTNAM LABORATORYCLIA [id number] [place] [address] [place] RBC (Bld) [#/Vol] 4.35 10*6/uL Normal 4.20-6.00 [facility] Comment on above: Order Comment: Speci men Type: BLOOD SPECIMENOrdering Facility: [facility] Address: [address] [place] [address] Performed By: #### 5 8410-2 ####PUTNAM LABORATORYCLIA [id number] [address] [place] WBC (Bld) [#/Vol] 9.46 10*3/uL Normal 3.70-11.00 [facility] Comment on above: Order Comment: Speci men Type: BLOOD SPECIMENOrdering Facility: [facility] Address: [facility] [place] [id number] Performed By: #### 5 8410-2 ####INDY LABORATORYCLIA [id number] [place] [address] [place] CONSULT PROGon 10-18-2024 CONSULT PROG HNO ID: [id number] Author: MERVIN BELTRE APRN.EMBROIDERY ASSISTANT Service: Psychiatry Author Type: Nurse Practitioner Type: Consult Progress Note Filed: 10/18/2024 14:03 Note Text: CL FOLLOW UP - PSYCHIATRY CONSULTATION PROGRESS NOTE SERVICE DATE: October 18, 2024 SERVICE TIME: AM Visit Type: In person Subjective PRESENT HISTORY: -Chart and labs reviewed. No events overnight. No prns required. Received only the scheduled 25 mg trazodone. -On assessment patient resting in bed. Alert to self. Patient's son Tim at the bedside. Reports his father is more alert today. Plan of care reviewed. Does Patient Have Any Suicidal Ideations: denys MEDICATIONS: Current Facility-Administered Medications Medication Dose Route Frequency Provider Last Rate Last Admin haloperidol lactate 2.5 mg short-acting injection (HALDOL) 2.5 mg INTRAMUSCULAR q 6 H PRN Soto Valderrama MD traZODone 25 mg tab(s) (DESYREL) 25 mg ORAL AT BEDTIME Mervin Beltre APRN.EMBROIDERY ASSISTANT 25 mg at 10/17/241957 traZODone 25 mg tab(s) (DESYREL) 25 mg ORAL AT BEDTIME PRN Mervin Beltre APRN.EMBROIDERY ASSISTANT traZODone 12.5 mg tab(s) (DESYREL) 12.5 mg ORAL QID PRN Mervin Beltre APRN.EMBROIDERY ASSISTANT phosphorus 250 mg tab(s) (K PHOS NEUTRAL) 250 mg ORAL BID PC Soto Valderrama MD 250 mg at 10/18/24 08 magnesium oxide 400 mg tab(s) (MAG-OX) 400 mg ORAL BID Soto Valderrama MD 400 mg at 10/18/24 0851 potassium chloride ER 10 mEq tab(s) (KLOR-CON) 10 mEq ORAL BID Soto Valderrama MD 10 mEq at 10/18/24 0851 amLODIPine 10 mg tab(s) (NORVASC) 10 mg ORAL DAILY Soto Valderrama MD 10 mg at 10/18/24850 metoprolol succinate ER (TOPROL XL) tab(s) 75 mg 75 mg ORAL DAILY Soto Valderrama MD 75 mg at 10/18/2451 aspirin, enteric coated 81 mg tab(s) 81 mg ORAL DAILY Nubia Salinas MD 81 mg at 10/18/24850 pravastatin 80 mg tab(s) (PRAVACHOL) 80 mg ORAL AT BEDTIME Nubia Salinas MD 80 mg at 10/17/241957 pantoprazole DR 40 mg tab(s) (PROTONIX) 40 mg ORAL BEFORE BREAKFAST DAILY Nubia Salinas MD 40 mg at 10/18/2448 donepezil 10 mg tab(s) (ARICEPT) 10 mg ORAL AT BEDTIME Nubia Salinas MD 10 mg at 10/17/241957 memantine 10 mg tab(s) (NAMENDA) 10 mg ORAL BID Nubia Salinas MD 10 mg at 10/18/24850 melatonin 6 mg tab(s) 6 mg ORAL DAILY (8 PM) Nubia Salinas MD 6 mg at 10/17/241957 Objective LABS : Lab Results Component Value Date/Time WBC 9.46 10/18/2024 05:16 AM WBC 8.19 02/18/2021 12:18 PM RBC 4.35 10/18/2024 05:16 AM RBC 4.83 02/18/2021 12:18 PM HCT 37.6 (L) 10/18/2024 05:16 AM HCT 42.8 02/18/2021 12:18 PM MCV 86.4 10/18/2024 05:16 AM MCV 88.6 02/18/2021 12:18 PM MCH 30.1 10/18/2024 05:16 AM MCH 29.4 02/18/2021 12:18 PM MCHC 34.8 10/18/2024 05:16 AM MCHC 33.2 02/18/2021 12:18 PM RDWCV 13.0 10/18/2024 05:16 AM RDWCV 13.5 02/18/2021 12:18 PM PLT 212 10/18/2024 05:16 AM PLT 216 02/18/2021 12:18 PM NEUTP 62.8 10/15/2024 09:37 AM NEUTP 54.7 02/18/2021 12:18 PM LYMPHP 23.0 10/15/2024 09:37 AM LYMPHP 30.4 02/18/2021 12:18 PM MONOP 11.9 10/15/2024 09:37 AM MONOP 10.4 02/18/2021 12:18 PM EODINP 1.7 10/15/2024 09:37 AM EODINP 3.9 02/18/2021 12:18 PM BASOP 0.5 10/15/2024 09:37 AM BASOP 0.6 02/18/2021 12:18 PM ABSNEUT 4.69 10/15/2024 09:37 AM ABSNEUT 4.46 02/18/2021 12:18 PM ABSMONO 0.89 (H) 10/15/2024 09:37 AM ABSMONO 0.85 02/18/2021 12:18 PM ABSEOSIN 0.13 10/15/2024 09:37 AM ABSEOSIN 0.32 02/18/2021 12:18 PM ABSBASO 0.04 10/15/2024 09:37 AM ABSBASO 0.05 02/18/2021 12:18 PM GLUC 106 (H) 10/18/2024 05:16 AM GLUC 98 02/18/2021 12:18 PM NA 142 10/18/2024 05:16 AM NA 142 02/18/2021 12:18 PM K 3.7 10/18/2024 05:16 AM K 3.9 02/18/2021 12:18 PM CHLOR 108 (H) 10/18/2024 05:16 AM CHLOR 105 02/18/2021 12:18 PM BUN 13 10/18/2024 05:16 AM BUN 10 02/18/2021 12:18 PM CREAT 1.17 10/18/2024 05:16 AM CREAT 1.03 02/18/2021 12:18 PM MG 1.9 10/18/2024 05:16 AM MG 2.0 02/18/2021 12:18 PM TSH 3.030 10/16/2024 05:34 AM CO2 24 10/18/2024 05:16 AM CO2 27 02/18/2021 12:18 PM TPROT 6.4 10/18/2024 05:16 AM TPROT 7.7 02/18/2021 12:18 PM ALB 3.2 (L) 10/18/2024 05:16 AM ALB 4.5 02/18/2021 12:18 PM CA 8.9 10/18/2024 05:16 AM CA 9.6 02/18/2021 12:18 PM AST 16 10/18/2024 05:16 AM AST 32 02/18/2021 12:18 PM ALT 12 10/18/2024 05:16 AM ALT 41 02/18/2021 12:18 PM ALKPHOS 99 10/18/2024 05:16 AM ALKPHOS 98 02/18/2021 12:18 PM TBILI 0.4 10/18/2024 05:16 AM TBILI 0.5 02/18/2021 12:18 PM Vital Signs: 10/17/24 2016 10/17/24 2359 10/18/24 0742 10/18/24 1144 BP: 160/67 133/95 164/76 131/62 Pulse: 70 66 67 62 Resp: 16 16 17 18 Temp: 36.9 ?C (98.4 ?F) 36.6 ?C (97.9 ?F) TempSrc: Axillary Axillary Oral Axillary SpO2: 97% 95% 95% 96% Weight: Height: PHYSICAL EXAMINATION: Muscle Tone/Strength: No Tremors, Rigidity, Hyperreflexia, or Clonus. Moved Extremities Against [place]. Gait / Station: Unable to Examine: Lying in Bed MENTA (more content not included)... Normal [facility] Comprehensive metabolic 2000 panelon 10-18-2024 Albumin [Mass/Vol] 3.2 g/dL Low 3.9-4.9 [facility] Comment on above: Order Comment: Speci men Type: BLOOD SPECIMEN Ordering Facility: [facility] Address: [address] [place] [address] Performed By: #### 2 4323-8, 47450-4, 2776-10 #### [facility] CLIA [id number] [address] [place] [address] [place] ALP [Catalytic activity/Vol] 99 U/L Normal 38-113 [facility] Comment on above: Order Comment: Speci men Type: BLOOD SPECIMEN Ordering Facility: [facility] Address: [address] [place] [address] Performed By: #### 2 4323-8, , 2776-10 #### [facility] CLIA [id number] [address] [place] [address] [place] ALT [Catalytic activity/Vol] 12 U/L Normal 10-54 [facility] Comment on above: Order Comment: Speci men Type: BLOOD SPECIMEN Ordering Facility: [facility] Address: [address] [place] [address] Performed By: #### 2 4323-8, , 2776-10 #### [facility] CLIA [id number] [address] [place] [address] [place] Anion gap [Moles/Vol] 10 mmol/L Normal 8-15 [facility] Comment on above: Order Comment: Speci men Type: BLOOD SPECIMEN Ordering Facility: [facility] Address: [address] [place] [address] Performed By: #### 2 4323-8, , 2776-10 #### [facility] CLIA [id number] [address] [place] AST [Catalytic activity/Vol] 16 U/L Normal 14-40 [facility] Comment on above: Order Comment: Speci men Type: BLOOD SPECIMEN Ordering Facility: [facility] Address: [address] [place] [address] Performed By: #### 2 4323-8, , 2776-10 #### [facility] CLIA [id number] [address] [place] Bilirubin [Mass/Vol] 0.4 mg/dL Normal 0.2-1.3 [facility] Comment on above: Order Comment: Speci men Type: BLOOD SPECIMEN Ordering Facility: [facility] Address: [address] [place] [address] Performed By: #### 2 4323-8, , 2776-10 #### [facility] CLIA [id number] [address] [place] [address] [place] Calcium [Mass/Vol] 8.9 mg/dL Normal 8.5-10.2 [facility] Comment on above: Order Comment: Speci men Type: BLOOD SPECIMEN Ordering Facility: [facility] Address: [address] [place] [address] Performed By: #### 2 4323-8, , 2776-10 #### [facility] CLIA [id number] [address] [place] [address] [place] Chloride [Moles/Vol] 108 mmol/L High 98-107 [facility] Comment on above: Order Comment: Speci men Type: BLOOD SPECIMEN Ordering Facility: [facility] Address: [address] [place] [address] Performed By: #### 2 4323-8, , 2776-10 #### [facility] CLIA [id number] [address] [place] [address] [place] CO2 [Moles/Vol] 24 mmol/L Normal 22-30 [facility] Comment on above: Order Comment: Speci men Type: BLOOD SPECIMEN Ordering Facility: [facility] Address: [address] [place] [address] Performed By: #### 2 4323-8, , 2776-10 #### [facility] CLIA [id number] [address] [place] [address] [place] Creatinine [Mass/Vol] 1.17 mg/dL Normal 0.73-1.22 [facility] Comment on above: Order Comment: Speci men Type: BLOOD SPECIMEN Ordering Facility: [facility] Address: [address] [place] [address] Performed By: #### 2 4323-8, , 2776-10 #### [facility] CLIA [id number] [address] [place] [address] [place] Creatinine and Glomerular filtration rate.predicted panel (S/P/Bld) 63 mL/min/1.73m??? Normal >=60 [facility] Comment on above: Order Comment: Raghu sandoval Type: BLOOD SPECIMEN Ordering Facility: [facility] Address: [address] [place] [address] Result Comment: Carlita mated Glomerular Filtration Rate (eGFR) is calculated using the 2020 CKD-EPI creatinine equation. This equation utilizes serum creatinine, sex, and age as parameters. The creatinine assay has traceable calibration to isotope dilution-mass spectrometry. Refer to KDIGO guidelines for clinical interpretation. In patients with unstable renal function, e.g. those with acute kidney injury, the eGFR may not accurately reflect actual GFR. Performed By: #### 2 4323-8, 17897-4, 2777-1 #### [facility] CLIA [id number] [address] [place] [address] [place] Glucose [Mass/Vol] 106 mg/dL High 74-99 [facility] Comment on above: Order Comment: Raghu sandoval Type: BLOOD SPECIMEN Ordering Facility: [facility] Address: [address] [place] [address] Result Comment: The [place] Diabetes [employer] (ADA) provides guidance for cutoff values for fasting glucose and random glucose. The ADA defines fasting as no caloric intake for at least 8 hours. Fasting plasma glucose results between 100 to 125 mg/dL indicate increased risk for diabetes (prediabetes). Fasting plasma glucose results greater than or equal to 126 mg/dL meet the criteria for diagnosis of diabetes. In the absence of unequivocal hyperglycemia, results should be confirmed by repeat testing. In a patient with classic symptoms of hyperglycemia or hyperglycemic crisis, random plasma glucose results greater than or equal to 200 mg/dL meet the criteria for diagnosis of diabetes. Reference: Standards of Medical Care in Diabetes 2016, [place] [employer]. Diabetes Care. 2016.39(Suppl 1). Performed By: #### 2 4323-8, 74531-0, 2777-1 #### [facility] CLIA [id number] [address] [place] [address] [place] Potassium [Moles/Vol] 3.7 mmol/L Normal 3.7-5.1 [facility] Comment on above: Order Comment: Raghu sandoval Type: BLOOD SPECIMEN Ordering Facility: [facility] Address: [address] [place], [place] [address] Performed By: #### 2 4323-8, 34199-2, 2776-1 #### [facility] CLIA [id number] [address] Protein [Mass/Vol] 6.4 g/dL Normal 6.3-8.0 [facility] Comment on above: Order Comment: Speci men Type: BLOOD SPECIMEN Ordering Facility: [facility] Address: [address] [place] [address] Performed By: #### 2 4323-8, 44543-3, 2776-1 #### [facility] CLIA [id number] [address] [place] Sodium [Moles/Vol] 142 mmol/L Normal 136-144 [facility] Comment on above: Order Comment: Speci men Type: BLOOD SPECIMEN Ordering Facility: [facility] Address: [address] [place] [address] Performed By: #### 2 4323-8, , 2776-10 #### [facility] CLIA [id number] [address] STATES OF [facility] Urea nitrogen [Mass/Vol] 13 mg/dL Normal 9-24 [facility] Comment on above: Order Comment: Speci men Type: BLOOD SPECIMEN Ordering Facility: [facility] Address: [address] [place] [address] Performed By: #### 2 4323-8, 08297-8, 27704-04 #### [facility] CLIA [id number] [address] [place] ECG COMPLETEon 10-18-2024 ECG COMPLETE Ventricular Rate : 6 4 BPM QRS Duration : 80 ms Q-T Interval : 434 ms QTC Calculation(Bazett) : 447 ms Calculated R Rochelle : 33 degrees Calculated T Rochelle : 39 degrees SINUS RHYTHM EARLY REPOLARIZATION BORDERLINE ECG BASELINE ARTIFACT NO PREVIOUS ECGS AVAILABLE Confirmed by MD CAAL GREGORY () on 10/19/2024 8:49:48 AM NAME : LORY JOHNSON PID : [id number] : 1945 Gender : Male Race : ORD : [id number] Procedure Date : Oct 18 2024 12:39:54 Edit Date : Oct 19 2024 08:49:52 Diagnosis: SINUS RHYTHM EARLY REPOLARIZATION BORDERLINE ECG BASELINE ARTIFACT NO PREVIOUS ECGS AVAILABLE Confirmed by MD CAAL GREGORY () on 10/19/2024 8:49:48 AM Test Reason : Assess QTc Location : 16 : [address] [place] [address] Overread By : MD CAAL GREGORY Edited By : MD CAAL GREGORY Referred By : DOMENICO CHOUDHURY Acquired by : [id number], Normal [facility] Magnesium SerPl-mCncon 10-18 Magnesium [Mass/Vol] 1.9 mg/dL Normal 1.7-2.3 [facility] Comment on above: Order Comment: Raghu sandoval Type: BLOOD SPECIMEN Ordering Facility: [facility] Address: [address] [place] [address] Performed By: #### 2 4323-8, 73126-6, 2777-1 #### [facility] CLIA [id number] [address] [place] [address] [place] Phosphate SerPl-mCncon 10-18 Phosphate [Mass/Vol] 3.1 mg/dL Normal 2.7-4.8 [facility] Comment on above: Order Comment: Raghu sandoval Type: BLOOD SPECIMEN Ordering Facility: [facility] Address: [address] [place] [address] Performed By: #### 2 4323-8, 84012-6, 2777-1 #### [facility] CLIA [id number] [address] [place] [address] [place] 25(OH)D3 SerPl-mCncon 2024 25-hydroxyvitamin D3 [Mass/Vol] 52.8 ng/mL Normal 31.0-80.0 [facility] Comment on above: Order Comment: Raghu sandoval Type: BLOOD SPECIMENOrdering Facility: [facility] Address: [address] [place] [address] Result Comment: Clas sification of 25 [place] Vitamin D status: Deficiency/Insufficiency: < or = 30 ng/ml. Sufficiency/Optimal Levels: 31-80 ng/mL Toxicity: > 100 ng/mL. Test performed by chemiluminescent immunoassay. Performed By: #### 1 989-3 ####[facility] [id number] [facility] [id number] CBC panel Auto (Bld)on 10-17 Erythrocyte distribution width (RBC) [Ratio] 13.0 % Normal 11.5-15.0 [facility] Comment on above: Order Comment: Speci men Type: BLOOD SPECIMENOrdering Facility: [facility] Address: [address] [place] [address] Performed By: #### 5 8410-2 ####[facility] [id number] [address] Hematocrit (Bld) [Volume fraction] 39.1 % Normal 39.0-51.0 [facility] Comment on above: Order Comment: Speci men Type: BLOOD SPECIMENOrdering Facility: [facility] Address: [address] [place] [address] Performed By: #### 5 8410-2 ####[facility] [id number] [address] Hemoglobin (Bld) [Mass/Vol] 13.6 g/dL Normal 13.0-17.0 [facility] Comment on above: Order Comment: Speci men Type: BLOOD SPECIMENOrdering Facility: [facility] Address: [address] [place] [address] Performed By: #### 5 8410-2 ####[facility] [id number] [address] MCH (RBC) [Entitic mass] 30.2 pg Normal 26.0-34.0 [facility] Comment on above: Order Comment: Speci men Type: BLOOD SPECIMENOrdering Facility: [facility] Address: [address] [place] [address] Performed By: #### 5 8410-2 ####[facility] [id number] [address] MCHC (RBC) [Mass/Vol] 34.8 g/dL Normal 30.5-36.0 [facility] Comment on above: Order Comment: Speci men Type: BLOOD SPECIMENOrdering Facility: [facility] Address: [address] [place] [address] Performed By: #### 5 8410-2 ####[facility] [id number] [address] [place] MCV (RBC) [Entitic vol] 86.7 fL Normal 80.0-100.0 [facility] Comment on above: Order Comment: Speci men Type: BLOOD SPECIMENOrdering Facility: [facility] Address: [address] [place] [address] Performed By: #### 5 8410-2 ####[facility] [id number] [address] Nucleated RBC (Bld) [#/Vol] 10*3/uL Normal <0.01 [facility] Comment on above: Order Comment: Speci men Type: BLOOD SPECIMENOrdering Facility: [facility] Address: [address] [place] [address] Performed By: #### 5 8410-2 ####[facility] [id number] [address] [place] Platelet mean volume (Bld) [Entitic vol] 9.9 fL Normal 9.0-12.7 [facility] Comment on above: Order Comment: Speci men Type: BLOOD SPECIMENOrdering Facility: [facility] Address: [address] [place] [address] Performed By: #### 5 8410-2 ####[facility] [id number] [address] [place] Platelets (Bld) [#/Vol] 218 10*3/uL Normal 150-400 [facility] Comment on above: Order Comment: Speci men Type: BLOOD SPECIMENOrdering Facility: [facility] Address: [address] [place] [address] Performed By: #### 5 8410-2 ####[facility] [id number] [place] [address] [place] RBC (Bld) [#/Vol] 4.51 10*6/uL Normal 4.20-6.00 [facility] Comment on above: Order Comment: Speci men Type: BLOOD SPECIMENOrdering Facility: [facility] Address: [address] [place], [place] [address] Performed By: #### 5 8410-2 ####[facility] [id number] [address] WBC (Bld) [#/Vol] 7.48 10*3/uL Normal 3.70-11.00 [facility] Comment on above: Order Comment: Speci men Type: BLOOD SPECIMENOrdering Facility: [facility] Address: [address] [place] [address] Performed By: #### 5 8410-2 ####[facility] [id number] [address] CONSULTon 10-17-2024 CONSULT HNO ID: [id number] Author: MERVIN BELTRE APRN.EMBROIDERY ASSISTANT Service: Psychiatry Author Type: Nurse Practitioner Type: Consults Filed: 10/17/2024 16:03 Note Text: CL NEW - PSYCHIATRY INITIAL CONSULTATION NOTE SERVICE DATE: October 17, 2024 SERVICE TIME: AM Visit Type: In person CONSULTING SERVICE : Psychiatry, requested by Dr. Valderrama REASON FOR CONSULTATION: Consult requested for an opinion regarding the evaluation and treatment of Dementia with wandering and sundowning-was put on melatonin and Seroquel and slept for 2 days became dehydrated with his assisted and medication adjustments. My final impression and recommendations will be communicated back to the requesting physician by way of the shared medical record. Thank You. Subjective IDENTIFYING INFO: Mr. 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 Patient was recently started on Seroquel 25 mg at bedtime because he has been wandering in the middle of the night and sundowning in the evenings. He took his first dose on Thursday evening around 8 PM and the patient's son found the patient difficult to arouse on Thursday morning and patient did not wake up until 2 PM. Patient's son observed questionable left-sided facial drooping and called [address] of the brain without acute findings. Psychiatry consulted for dementia/medication adjustments. On assessment patient lying in bed somnolent, alert to self only. He was grossly unable to participate in the exam. He did not appear internally stimulated. Patient's son Tim was at the bedside. Tim states in early September he went to stay at his parents house to help care for his father while his mother was recovering from pneumonia/meningitis and was in the hospital-now in rehab. Tim states his father demonstrated decreased cognition. And on day 5 the patient went after his son believing that he was an intruder. Shortly after Tim moved the patient into his own home to be more closely observed. On day 10 of being with his father/September 26 the patient was observed hallucinating, for the short bit that he was not observed he reportedly left his room and the patient and his had difficulty finding hisfather. They found him downstairs in the very cold mudroom disheveled and was noted to have some bruising. Tim states now he sleeps on a blowup mattress outside of the patient's bedroom. He has not tried to wander but has still been observed hallucinating seeing cows outside the window, waking up and thinking that he is going to work, talking to people that are not there throughout the night. Tim now has caregivers 3 nights a week who comes to the house to help relieve him/give him rest. Tim plans to have his father return home with his mom/patient's when the patient's gets out of rehab. Tim states he and his have cleaned out the whole first floor, threw away the old bed, and now have a adjustable posture pediatric type of bed on the main floor. He plans to have home care at the home as well. When reviewing long-term care placement Tim states he would like for his father to have quality of life while he can and would like to try this throughout first before proceeding with locked memory care unit. Does Patient Have Any Suicidal Ideations: denys STRESSORS: denys-though his is in the hospital/rehab and he has not seen her for some time COLLATERAL INFORMATION: tim/Son PSYCHIATRIC REVIEW OF SYMPTOMS: Unable to assess The remainder was reviewed and unremarkable. MEDICAL REVIEW OF SYSTEMS: Pertinent Positives: Medical being managed by primary team. On assessment patient no acute distress. PSYCHIATRIC HISTORY: 10 years ago patient had a fall from a second-story structure. The patient was home alone when his son arrived he noticed his father was not acting right, he was disheveled, his hair was a mess, his back looked like it had abrasions. It was the first time his orientation was off. Tim his son went out to the backyard and saw that his father had a letter on the backside of their house that had been up to the second story and he was removing icicles from the gutters. The latter was seen lying in the grass and a whiskey barrel plantar smashed and saw an imprint in the ground/snow. His father had fallen on the plantar and made an impact of his body onto the ground. Tim states his father has not been the same since. He has had a personality change since that fall. He used to be more easily angered now he is more calm/go with the flow. He used to be a loner but now wants to engage more with others. Diagnoses: (more content not included)... Normal [facility] COPPER BLOODon 10-17-2024 Copper [Mass/Vol] 113 ug/dL Normal 70-140 [facility] Comment on above: Order Comment: Speci men Type: BLOOD SPECIMENOrdering Facility: [facility] Address: [address] [place] [address] Result Comment: This test was developed, and its performance characteristics determined by the [facility] Department of Pathology and Laboratory Medicine. It has not been cleared or approved by the FDA. The [facility] Department of Pathology and Laboratory Medicine is regulated under CLIA as qualified to perform high-complexity testing. This test is used for clinical purposes. It should not be regarded as investigational or for research. Performed By: #### C JUAN MANUEL, 5763-8 ####[facility] [id number] [place] [address] [place] Comprehensive metabolic 2000 panelon 10-17-2024 Albumin [Mass/Vol] 3.7 g/dL Low 3.9-4.9 [facility] Comment on above: Order Comment: Speci men Type: BLOOD SPECIMENOrdering Facility: [facility] Address: [address] [place] [address] Performed By: #### 2 4323-8, 02472-1, 2132-06, 2284-05 ####[facility] [id number] [place] [address] [place] ALP [Catalytic activity/Vol] 102 U/L Normal 38-113 [facility] Comment on above: Order Comment: Speci men Type: BLOOD SPECIMENOrdering Facility: [facility] Address: [address] [place] [address] Performed By: #### 2 4323-8, , 2132-06, 2284-05 ####[facility] [id number] [address] [place] ALT [Catalytic activity/Vol] 12 U/L Normal 10-54 [facility] Comment on above: Order Comment: Speci men Type: BLOOD SPECIMENOrdering Facility: [facility] Address: [facility] [address] Performed By: #### 2 4323-8, , 2132-06, 2284-05 ####[facility] [id number] [address] STATES [facility] Anion gap [Moles/Vol] 12 mmol/L Normal 8-15 [facility] Comment on above: Order Comment: Speci men Type: BLOOD SPECIMENOrdering Facility: [facility] Address: [address] [place] [address] Performed By: #### 2 4323-8, 99541-0, 2132-06, 2284-05 ####[facility] [id number] [address] [place] AST [Catalytic activity/Vol] 17 U/L Normal 14-40 [facility] Comment on above: Order Comment: Speci men Type: BLOOD SPECIMENOrdering Facility: [facility] Address: [address] [place] [address] Performed By: #### 2 4323-8, 35712-8, 2132-06, 2284-05 ####[facility] [id number] [place] [address] [place] Bilirubin [Mass/Vol] 0.4 mg/dL Normal 0.2-1.3 [facility] Comment on above: Order Comment: Speci men Type: BLOOD SPECIMENOrdering Facility: [facility] Address: [address] [place] [address] Performed By: #### 2 4323-8, , 2132-06, 2284-05 ####[facility] [id number] [place] [address] [place] Calcium [Mass/Vol] 9.2 mg/dL Normal 8.5-10.2 [facility] Comment on above: Order Comment: Speci men Type: BLOOD SPECIMENOrdering Facility: [facility] Address: [address] [place] [address] Performed By: #### 2 4323-8, , 2132-06, 2284-05 ####[facility] [id number] [place] [address] [place] Chloride [Moles/Vol] 108 mmol/L High 98-107 [facility] Comment on above: Order Comment: Speci men Type: BLOOD SPECIMENOrdering Facility: [facility] Address: [address] [place] [address] Performed By: #### 2 4323-8, , 2132-06, 2284-05 ####[facility] [id number] [place] [address] [place] CO2 [Moles/Vol] 25 mmol/L Normal 22-30 [facility] Comment on above: Order Comment: Speci men Type: BLOOD SPECIMENOrdering Facility: [facility] Address: [address] [place] [address] Performed By: #### 2 4323-8, , 2132-06, 8 ####[facility] [id number] [place] [address] [place] Creatinine [Mass/Vol] 1.07 mg/dL Normal 0.73-1.22 [facility] Comment on above: Order Comment: Raghu sandoval Type: BLOOD SPECIMENOrdering Facility: [facility] Address: [address] [place] [id number] Performed By: #### 2 4323-8, 40012-2, 9, 2284-05 ####[facility] [id number] [place] [id number] [place] Creatinine and Glomerular filtration rate.predicted panel (S/P/Bld) 70 mL/min/1.73m??? Normal >=60 [facility] Comment on above: Order Comment: Raghu sandoval Type: BLOOD SPECIMENOrdering Facility: [facility] Address: [address] [place] [address] Result Comment: Carlita mated Glomerular Filtration Rate (eGFR) is calculated using the 2020 CKD-EPI creatinine equation. This equation utilizes serum creatinine, sex, and age as parameters. The creatinine assay has traceable calibration to isotope dilution-mass spectrometry. Refer to KDIGO guidelines for clinical interpretation. In patients with unstable renal function, e.g. those with acute kidney injury, the eGFR may not accurately reflect actual GFR. Performed By: #### 2 4323-8, 35168-5, 2132-06, 2284-05 ####[facility] [id number] [place] [id number] [place] Glucose [Mass/Vol] 103 mg/dL High 74-99 [facility] Comment on above: Order Comment: Raghu sandoval Type: BLOOD SPECIMENOrdering Facility: [facility] Address: [address] [place] [address] Result Comment: The [place] [employer] (ADA) provides guidance for cutoff values for fasting glucose and random glucose. The ADA defines fasting as no caloric intake for at least 8 hours. Fasting plasma glucose results between 100 to 125 mg/dL indicate increased risk for diabetes (prediabetes). Fasting plasma glucose results greater than or equal to 126 mg/dL meet the criteria for diagnosis of diabetes. In the absence of unequivocal hyperglycemia, results should be confirmed by repeat testing. In a patient with classic symptoms of hyperglycemia or hyperglycemic crisis, random plasma glucose results greater than or equal to 200 mg/dL meet the criteria for diagnosis of diabetes. Reference: Standards of Medical Care in Diabetes 2016, [place] [employer]. Diabetes Care. 2016.39(Suppl 1). Performed By: #### 2 4323-8, , 2132-06, 2284-05 ####[facility] [id number] [place] [address] [place] Potassium [Moles/Vol] 3.6 mmol/L Low 3.7-5.1 [facility] Comment on above: Order Comment: Speci men Type: BLOOD SPECIMENOrdering Facility: [facility] Address: [address] [place], [place] [address] Performed By: #### 2 4323-8, , 2132-06, 2284-05 ####[facility] LABORATORYCLIA [id number] [place] [address] [place] Protein [Mass/Vol] 6.2 g/dL Low 6.3-8.0 [facility] Comment on above: Order Comment: Speci men Type: BLOOD SPECIMENOrdering Facility: [facility] Address: [address] [id number] Performed By: #### 2 4323-8, , 2132-06, 2284-05 ####[facility] LABORATORYCLIA [id number] [place] [address] [place] Sodium [Moles/Vol] 145 mmol/L High 136-144 [facility] Comment on above: Order Comment: Speci men Type: BLOOD SPECIMENOrdering Facility: [facility] Address: [address] [place] [address] Performed By: #### 2 4323-8, 34889-0, 2132-06, 2284-05 ####[facility] LABORATORYCLIA [id number] [place] [id number] [place] Urea nitrogen [Mass/Vol] 11 mg/dL Normal 9-24 [facility] Comment on above: Order Comment: Speci men Type: BLOOD SPECIMENOrdering Facility: [facility] Address: [address] [id number] Performed By: #### 2 4323-8, 97551-3, 9, 8 ####[facility] LABORATORYCLIA [id number] [place] [address] [place] [facility] [place] Folate SerPl-mCncon 10-17-19 25 Folate [Mass/Vol] ng/mL Normal >4.7 [facility] Comment on above: Order Comment: Speci men Type: BLOOD SPECIMENOrdering Facility: [facility] Address: [address] [place] [address] Result Comment: A re sult of > 20 ng/mL is not necessarily indicative of a pathologic or treatable condition: it reflects a limitation of the test methodology. Assay reference range: 4.8 to 24.2 ng/mL. Suitable for detection of folate deficiency. Reference: Folate III (Folate III) [package insert V 1.0 [place] Islander]. [employer], [place], [place]: August 2015. Performed By: #### 2 4323-8, 20051-4, 2132-06, 2284-05 ####[facility] LABORATORYCLIA [id number] [place] [id number] [facility] [place] Magnesium SerPl-mCncon 10-17 Magnesium [Mass/Vol] 2.0 mg/dL Normal 1.7-2.3 [facility] Comment on above: Order Comment: Speci men Type: BLOOD SPECIMENOrdering Facility: [facility] Address: [address] [place] [address] Performed By: #### 2 4323-8, , 2132-06, 2284-05 ####[facility] LABORATORYCLIA [id number] [place] [id number] [place] VITAMIN B6/PYRIDOXINon 10-17 VITAMIN B6 17.7 nmol/L Low 20.0-125.0 [facility] Comment on above: Order Comment: Speci men Type: BLOOD SPECIMENOrdering Facility: [facility] Address: [address] [place] [address] Result Comment: INTE RPRETIVE INFORMATION: Vitamin B6 (Pyridoxal 5-Phosphate) Pyridoxal 5'-phosphate measured in a specimen collected following an 8-hour or overnight fast accurately indicates vitamin B6 nutritional status. Non-fasting specimen concentration reflects recent vitamin intake. This test was developed and its performance characteristics determined by [employer]. It has not been cleared or approved by the [place] Food and Drug Administration. This test was performed in a CLIA certified laboratory and is intended for clinical purposes. Performed By: [employer] [address] [place] [address] Select Banker: Kenan Brunner MD, PhD CLIA Number: [id number] Performed By: #### V ITB6 ####[facility] CENTERIA [id number] [place] [address] Vit B12 SerPl-mCncon 025 Cobalamin (Vitamin B12) [Mass/Vol] 706 pg/mL Normal 232-1245 [facility] Comment on above: Order Comment: Speci men Type: BLOOD SPECIMENOrdering Facility: [facility] Address: [address] [place] [address] Performed By: #### 2 4323-8, 19298-5, 2132-9, 4-8 ####ESM[facility] LABORATORYCLIA [id number] [place] [address] [place] Zinc SerPl-mCncon 10-17-2024 Zinc [Mass/Vol] 56 ug/dL Low 60-120 [facility] Comment on above: Order Comment: Specsrinath sandoval Type: BLOOD SPECIMENOrdering Facility: [facility] Address: [address] [place] [address] Result Comment: This test was developed, and its performance characteristics determined by the [facility] Department of Pathology and Laboratory Medicine. It has not been cleared or approved by the FDA. The [facility] Department of Pathology and Laboratory Medicine is regulated under CLIA as qualified to perform high-complexity testing. This test is used for clinical purposes. It should not be regarded as investigational or for research. Performed By: #### C JUAN MANUEL, 5763-8 ####[facility] LABCLIA [id number] [place] [address] [place] Ammonia Plas-sCncon 10-16-19 25 Ammonia (P) [Moles/Vol] 10 umol/L Low 16-60 [facility] Comment on above: Order Comment: Speci men Type: BLOOD SPECIMENOrdering Facility: [facility] Address: [address] [place] [address] Performed By: #### 1 6362-6 ####[facility] LABORATORYCLIA [id number] [address] CBC panel Auto (Bld)on 10-16 Erythrocyte distribution width (RBC) [Ratio] 12.9 % Normal 11.5-15.0 [facility] Comment on above: Order Comment: Speci men Type: BLOOD SPECIMENOrdering Facility: [facility] Address: [address] [place] [address] Performed By: #### 5 8410-2 ####[facility] LABORATORYCLIA [id number] [address] Hematocrit (Bld) [Volume fraction] 36.5 % Low 39.0-51.0 [facility] Comment on above: Order Comment: Speci men Type: BLOOD SPECIMENOrdering Facility: [facility] Address: [address] [place] [address] Performed By: #### 5 8410-2 ####[facility] LABORATORYCLIA [id number] [address] Hemoglobin (Bld) [Mass/Vol] 12.7 g/dL Low 13.0-17.0 [facility] Comment on above: Order Comment: Speci men Type: BLOOD SPECIMENOrdering Facility: [facility] Address: [address] [place] [address] Performed By: #### 5 8410-2 ####[facility] LABORATORYCLIA [id number] [address] MCH (RBC) [Entitic mass] 30.3 pg Normal 26.0-34.0 [facility] Comment on above: Order Comment: Speci men Type: BLOOD SPECIMENOrdering Facility: [facility] Address: [address] [place] [address] Performed By: #### 5 8410-2 ####[facility] LABORATORYCLIA [id number] [address] MCHC (RBC) [Mass/Vol] 34.8 g/dL Normal 30.5-36.0 [facility] Comment on above: Order Comment: Speci men Type: BLOOD SPECIMENOrdering Facility: [facility] Address: [address] [place] [address] Performed By: #### 5 8410-2 ####[facility] LABORATORYCLIA [id number] [place] [address] [place] MCV (RBC) [Entitic vol] 87.1 fL Normal 80.0-100.0 [facility] Comment on above: Order Comment: Speci men Type: BLOOD SPECIMENOrdering Facility: [facility] Address: [address] [place] [address] Performed By: #### 5 8410-2 ####[facility] LABORATORYCLIA [id number] [place] [address] [place] Nucleated RBC (Bld) [#/Vol] 10*3/uL Normal <0.01 [facility] Comment on above: Order Comment: Speci men Type: BLOOD SPECIMENOrdering Facility: [facility] Address: [address] [place] [address] Performed By: #### 5 8410-2 ####[facility] LABORATORYCLIA [id number] [place] [address] [place] Platelet mean volume (Bld) [Entitic vol] 9.7 fL Normal 9.0-12.7 [facility] Comment on above: Order Comment: Speci men Type: BLOOD SPECIMENOrdering Facility: [facility] Address: [address] [place] [address] Performed By: #### 5 8410-2 ####[facility] LABORATORYCLIA [id number] [place] [address] [place] Platelets (Bld) [#/Vol] 206 10*3/uL Normal 150-400 [facility] Comment on above: Order Comment: Speci men Type: BLOOD SPECIMENOrdering Facility: [facility] Address: [address] [place] [address] Performed By: #### 5 8410-2 ####[facility] LABORATORYCLIA [id number] [place] [address] [facility] [place] RBC (Bld) [#/Vol] 4.19 10*6/uL Low 4.20-6.00 [facility] Comment on above: Order Comment: Speci men Type: BLOOD SPECIMENOrdering Facility: [facility] Address: [address] [place], [place] [address] Performed By: #### 5 8410-2 ####[facility] LABORATORYCLIA [id number] [place] [address] [facility] WBC (Bld) [#/Vol] 7.53 10*3/uL Normal 3.70-11.00 [facility] Comment on above: Order Comment: Speci men Type: BLOOD SPECIMENOrdering Facility: [facility] Address: [address] [place] [address] Performed By: #### 5 8410-2 ####[facility] LABORATORYCLIA [id number] [address] CONSULTon 10-16-2024 CONSULT HNO ID: [id number] Author: ELVIN ALEMAN MD Service: Neurology General Author Type: Physician Type: Consults Filed: 10/16/2024 10:40 Note Text: TELENEUROLOGY VISIT - New Consultation Name and :Lory Johnson 1945 Patient consented to teleneurology visit on order for consult. Patient consented in Teleneuro consult order. The Teleneurologist or ELIZ is available from 8 am to 5 pm on WEEKDAYS. During weekends, coverage is only during rounding hours. Rounding hours are: [place]: 1 pm to 5 pm [place]: 8 am to 12 pm [place]: 8 am to 12 pm [place]: 1 pm to 3 pm [place]: 1 pm to 5 pm [place]: 1 pm to 5 pm [facility]: 3 pm to 5 pm Statutory holidays do not have teleneuro coverage. [place]: During Off hours for Teleneurology please page (not call) [facility] [address] vocational placement specialist for concerns. [place]: During Off hours for Teleneurology please page (not call) [place] [phone] vocational placement specialist for concerns. [facility]: There is no off-hours coverage for Teleneurology. Name: Lory Johnson Age: [age] year old Gender: male Chief Complaint:No chief complaint on file. Admission Date: 10/15/2024 Consult Requested By: Nubia Salinas MD, for acute mental status change, recommendations will be communicated by shared medical record. 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 Patient presented with mental status change, and excessive sleepiness. He was not able to recognize his son. He was recently prescribed seroquel 25 mg at night for sundowning and wandering behavior. He took seroquel the evening prior to admission, and also 10 mg melatonin instead of 5 mg, as advised by is providers. When his son helped him to his room, he noted slurred speech and additional assistance. Then on the morning of admission, his son could not wake him up, and noted left facial droop, but his strength was equal on both sides, dragging of legs, which is not new per his son. He shuffles. There is recent sick contact. His is in rehab for influenza A, and they went to visit her. He has an abnormal EEG on 01/06/2024 that showed potential epileptogenicity in bifrontocentral area, more on the right. This was discussed with his neurologist in February 2024, who recommended low dose antiseizure medication, which both patient and his declined. He was last seen by general neurology and [facility] both on 10/14/2024 AT ED, BP was 181/84. Head CT did not show acute process. Review of Systems N/a ACTIVE PROBLEM LIST Rosacea Mixed Hyperlipidemia Essential Hypertension, Benign History of Prostate Cancer Fam Hx-Ischem Heart Disease Actinic Keratoses (Premalignant AK's) Cad S/P Percutaneous Coronary Angioplasty 3-Vessel Cad Dementia With Behavioral Disturbance (Hcc) Ex-Smoker Lipoma of Right Forearm S/P Right Coronary Artery (Rca) Stent Placement Medicare Annual Wellness Visit, Subsequent History of Cva (Cerebrovascular Accident) Nain (Obstructive Sleep Apnea) Family History of Colon Cancer in Father Chronic Left Shoulder Pain Elevated Fasting Blood Sugar Gerd Without Esophagitis Neck Pain Overactive Bladder Impaired Driving Skills Muscle Pain, Lumbar Medication Management Anemia Living Will On File Advance Directive Discussed With Patient Calcification of Pleura On Chest X-Ray Emphysema Lung (Hcc) Ckd (Chronic Kidney Disease) Stage 3, Gfr 30-59 Ml/Min (Hcc) Cellulitis of Skin 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 Actinic Keratoses (Premalignant AK's) 08/16/2013 Advance directive discussed with patient 03/26/2022 Discussed 03/2022 Anemia Anterior dislocation of right shoulder 10/31/2022 CAD S/P percutaneous coronary angioplasty 11/02/2013 Chronic left shoulder pain 06/30/2018 CKD (chronic kidney disease) stage 3, GFR 30-59 ml/min (HCC) 04/11/2024 Dementia without behavioral disturbance ([facility]) 05/15/2016 MMSE: 22 05/2016, MMSE: 06/2019, 23 Elevated fasting blood sugar 12/01/2018 Emphysema lung (HCC) 10/23/2023 Essential hypertension, benign 05/12/20 (more content not included)... Normal [facility] Comprehensive metabolic 2000 panelon 10-16-2024 Albumin [Mass/Vol] 3.5 g/dL Low 3.9-4.9 [facility] Comment on above: Order Comment: Speci men Type: BLOOD SPECIMENOrdering Facility: [facility] Address: [address] [place] [address] [place], [place] [address] Performed By: #### 1 3119-9, 63537-6, 3016-3, 59951-9 ####[facility] LABORATORYCLIA [id number] [place] [address] [place] [facility] ALP [Catalytic activity/Vol] 98 U/L Normal 38-113 [facility] Comment on above: Order Comment: Speci men Type: BLOOD SPECIMENOrdering Facility: [facility] Address: [address] [place] [address] Performed By: #### 1 9123-9, 61481-2, 3016-3, 04619-9 ####[facility] LABORATORYCLIA [id number] [address] [place] ALT [Catalytic activity/Vol] 12 U/L Normal 10-54 [facility] Comment on above: Order Comment: Speci men Type: BLOOD SPECIMENOrdering Facility: [facility] Address: [address] [place] [address] Performed By: #### 1 9123-9, 57086-2, 3016-3, 44675-5 ####[facility] LABORATORYCLIA [id number] [address] STATES [facility] Anion gap [Moles/Vol] 10 mmol/L Normal 8-15 [facility] Comment on above: Order Comment: Speci men Type: BLOOD SPECIMENOrdering Facility: [facility] Address: [address] [place] [address] Performed By: #### 1 9123-9, 95635-6, 3016-3, 63893-1 ####[facility] LABORATORYCLIA [id number] [address] [place] AST [Catalytic activity/Vol] 16 U/L Normal 14-40 [facility] Comment on above: Order Comment: Speci men Type: BLOOD SPECIMENOrdering Facility: [facility] Address: [address] [place] [address] Performed By: #### 1 9123-9, 24335-4, 3016-3, 99314-9 ####[facility] LABORATORYCLIA [id number] [place] [id number] [facility] Bilirubin [Mass/Vol] 0.5 mg/dL Normal 0.2-1.3 [facility] Comment on above: Order Comment: Speci men Type: BLOOD SPECIMENOrdering Facility: [facility] Address: [facility] [address] Performed By: #### 1 9123-9, 02635-9, 3016-3, 25540-9 ####[facility] LABORATORYCLIA [id number] [place] [address] [place] Calcium [Mass/Vol] 9.1 mg/dL Normal 8.5-10.2 [facility] Comment on above: Order Comment: Speci men Type: BLOOD SPECIMENOrdering Facility: [facility] Address: [address] [place] [address] Performed By: #### 1 9123-9, 02392-9, 3016-3, 23816-8 ####ESM[facility] LABORATORYCLIA [id number] [place] [address] [place] Chloride [Moles/Vol] 103 mmol/L Normal 98-107 [facility] Comment on above: Order Comment: Speci men Type: BLOOD SPECIMENOrdering Facility: [facility] Address: [address] [place] [address] Performed By: #### 1 9123-9, 87275-8, 301-3, 62992-7 ####[facility] LABORATORYCLIA [id number] [place] [address] [place] CO2 [Moles/Vol] 25 mmol/L Normal 22-30 [facility] Comment on above: Order Comment: Speci men Type: BLOOD SPECIMENOrdering Facility: [facility] Address: [address] [place] [address] Performed By: #### 1 9123-9, 05239-5, 3016-3, 71041-2 ####[facility] LABORATORYCLIA [id number] [place] [address] [place] Creatinine [Mass/Vol] 1.08 mg/dL Normal 0.73-1.22 [facility] Comment on above: Order Comment: Speci men Type: BLOOD SPECIMENOrdering Facility: [facility] Address: [address] [place], [place] [address] Performed By: #### 1 9123-9, 66665-1, 3016-3, 32206-8 ####[facility] LABORATORYCLIA [id number] [place] [address] [place] Creatinine and Glomerular filtration rate.predicted panel (S/P/Bld) 69 mL/min/1.73m??? Normal >=60 [facility] Comment on above: Order Comment: Raghu sandoval Type: BLOOD SPECIMENOrdering Facility: [facility] Address: [address] [place] [address] Result Comment: Carlita mated Glomerular Filtration Rate (eGFR) is calculated using the 2020 CKD-EPI creatinine equation. This equation utilizes serum creatinine, sex, and age as parameters. The creatinine assay has traceable calibration to isotope dilution-mass spectrometry. Refer to KDIGO guidelines for clinical interpretation. In patients with unstable renal function, e.g. those with acute kidney injury, the eGFR may not accurately reflect actual GFR. Performed By: #### 1 9123-9, 32842-6, 3016-3, 47687-4 ####ESM[facility] LABORATORYCLIA [id number] [place] [address] [place] Glucose [Mass/Vol] 101 mg/dL High 74-99 [facility] Comment on above: Order Comment: Raghu sandoval Type: BLOOD SPECIMENOrdering Facility: [facility] Address: [address] [place] [address] Result Comment: The [place] Diabetes Association (ADA) provides guidance for cutoff values for fasting glucose and random glucose. The ADA defines fasting as no caloric intake for at least 8 hours. Fasting plasma glucose results between 100 to 125 mg/dL indicate increased risk for diabetes (prediabetes). Fasting plasma glucose results greater than or equal to 126 mg/dL meet the criteria for diagnosis of diabetes. In the absence of unequivocal hyperglycemia, results should be confirmed by repeat testing. In a patient with classic symptoms of hyperglycemia or hyperglycemic crisis, random plasma glucose results greater than or equal to 200 mg/dL meet the criteria for diagnosis of diabetes. Reference: Standards of Medical Care in Diabetes 2016, [place] [employer] Association. Diabetes Care. 2016.39(Suppl 1). Performed By: #### 1 9123-9, 13836-2, 3016-3, 51712-9 ####[facility] LABORATORYCLIA [id number] [place] [address] [place] Potassium [Moles/Vol] 3.2 mmol/L Low 3.7-5.1 [facility] Comment on above: Order Comment: Speci men Type: BLOOD SPECIMENOrdering Facility: [facility] Address: [address] [place] [address] Performed By: #### 1 9123-9, 14953-0, 3016-3, 88441-6 ####ESMOND LABORATORYCLIA [id number] [place] [id number] [place] Protein [Mass/Vol] 6.3 g/dL Normal 6.3-8.0 [facility] Comment on above: Order Comment: Speci men Type: BLOOD SPECIMENOrdering Facility: [facility] Address: [address] [place] [address] Performed By: #### 1 9123-9, 99273-8, 3016-3, 15858-5 ####[facility] LABORATORYCLIA [id number] [place] [address] [place] Sodium [Moles/Vol] 138 mmol/L Normal 136-144 [facility] Comment on above: Order Comment: Speci men Type: BLOOD SPECIMENOrdering Facility: [facility] Address: [address] [place] [address] Performed By: #### 1 9123-9, 27747-3, 3016-3, 14130-3 ####[facility] LABORATORYCLIA [id number] [place] [id number] [place] Urea nitrogen [Mass/Vol] 12 mg/dL Normal 9-24 [facility] Comment on above: Order Comment: Speci men Type: BLOOD SPECIMENOrdering Facility: [facility] Address: [address] [place] [address] Performed By: #### 1 9123-9, 88041-3, 3016-3, 05334-5 ####ESM[facility] LABORATORYCLIA [id number] [place] [address] [place] Magnesium SerPl-mCncon 10-16 Magnesium [Mass/Vol] 1.9 mg/dL Normal 1.7-2.3 [facility] Comment on above: Order Comment: Speci men Type: BLOOD SPECIMENOrdering Facility: [facility] Address: [address] [place] [address] Performed By: #### 1 9123-9, 02688-4, 3016-3, 39186-2 ####ESM[facility] LABORATORYCLIA [id number] [place] [id number] [facility] NT-proBNP [facility]on [facility]-16 Natriuretic peptide.B prohormone N-Terminal [Mass/Vol] 224 pg/mL Normal <450 [facility] Comment on above: Order Comment: Raghu sandoval Type: BLOOD SPECIMENOrdering Facility: [facility] Address: [address] [place] [address] Performed By: #### 2 777-1, 19525-0 ####[facility] LABORATORYCLIA [id number] [address] NURSING PROGon 10-16-2024 NURSING PROG HNO ID: [id number] Author: CURTIS GARZA RN Service: Nursing Author Type: Registered Nurse Type: Nursing Progress Note Filed: 10/17/2024 01:12 Note Text: 2100 RN sitting in room with pt, pt setting off bed alarm multiple times, pt is A/Ox1 he is aware of his name and date of , cannot give me a month, date or year says he is in [place] after reorienting pt then keeps telling me its a nice house I'm building. 2300 lip paged for pt agitation, orders received. 2330 roommate was moved out of the room to try and make his surroundings calm and quiet. 2345 pt kicking and throwing legs out of bed trying to pull out IV pulling vocational placement specialist light and 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 Orders received. Normal [facility] Phosphate SerPl-mCncon 10-16 Phosphate [Mass/Vol] 2.6 mg/dL Low 2.7-4.8 [facility] Comment on above: Order Comment: Speci men Type: BLOOD SPECIMENOrdering Facility: [facility] Address: [address] [place] [address] Performed By: #### 2 777-1, 28152-6 ####[facility] LABORATORYCLIA [id number] [address] Procalcitonin SerPl-mCncon 0 10-16-2024 Procalcitonin [Mass/Vol] 0.09 ng/mL High <0.09 [facility] Comment on above: Order Comment: Speci men Type: BLOOD SPECIMENOrdering Facility: [facility] Address: [address] [place] [address] Result Comment: For a guided interpretation of test results, please visit the Change in Procalcitonin Calculator, [email or web address]. Performed By: #### 1 9123-9, 34339-2, 3016-3, 66528-7 ####[facility] LABORATORYCLIA [id number] [address] THERAPY NTon 10-16-2024 THERAPY NT HNO ID: [id number] Author: LOLY ARREGUIN CCC-STRAIGHT RULING MACHINE OPERATOR Service: Speech/Swallow Author Type: Speech Language Pathologist Type: Therapy (PT/OT/Speech/Resp) Filed: 10/16/2024 12:41 Note Text: Speech Therapy Clinical Swallow Evaluation SERVICE DATE: 10/16/2024 SERVICE TIME: 1214 to 1238 ROOM: [place] [address] IMPRESSION Functional oropharyngeal phases of swallowing: without identified risk for aspiration RECOMMENDATIONS Diet Recommendations Regular Consistency, Thin Liquids IDDSI Level 0 Swallow Strategy Recommendations Alert (patient should be fully alert for P.O. intake), Feed / Eat at a slow rate, Sit upright 90 degrees for all PO, Small Bite/Sip Nursing Recommendations Promote insight/safety opportunities, Reinforce use of swallowing strategies, Confirm Dentures appropriately placed for all PO Instrumental Swallow Study Recommended Consults Response to Therapy Interventions: Good participation in activities, Improved intelligibility of speech DISCHARGE RECOMMENDATIONS Recommended Discharge Disposition: No further skilled speech therapy services anticipated CURRENT HOSPITAL COURSE Reason for Speech Therapy Consult: stroke protocol Relevant Past Medical History: HTN, dementia, hx of CVA, CKD, GERD, hx of prostate CA HOME ENVIRONMENT / PRIOR FUNCTIONAL LEVEL Prior Functional Level: Unable to Assess Prior Swallowing Function/Diet Textures: Regular Consistency, Thin Liquids IDDSI Level 0 SUBJECTIVE I'm doing better now THERAPY DIAGNOSIS No Skilled Need TREATMENT INTERVENTIONS Clinical Swallow Evaluation (04103) Skilled Treatment Time (minutes): 24 TRAINING AND EDUCATION PROVIDED IN Dysphagia Management, Dietary Consistencies, Swallowing Strategies THERAPEUTIC SKILLS USED Education on role of discipline / importance of activity, Instruction in self-monitoring / self-assessment, Verbal cuing OBJECTIVE Current Status Oral Hygiene: Clear, moist oral cavity Dentition: Dentures-Full Current Feeding Method: Oral Current Diet Textures: Regular Consistency, Thin Liquids IDDSI Level 0 Current Level Of Communication: Verbal Current Management Of Secretions: Able to self-manage, Strong cough Oral Motor Exam: Within Functional Limits SWALLOW ASSESSMENT Position Of Patient During Assessment: Upright In Bed Feeding Method: Patient Self-Fed Consistencies Presented: Thin Liquids IDDSI Level 0, Pureed Solids IDDSI Level 4, Soft and Bite-Sized Solids IDDSI Level 6, Solid, Minced and Moist Solids IDDSI Level 5 Response to Consistencies Presented: Pt tolerated all trials of thin liquids and all solids with no s/sx of aspiration/penetration, timely swallow, and adequate hyrolayrngeal elevation. Pt does report that the water was burning as he drank the first few sips, however he stated this was no longer the case as the session went on. Pt did have slurred speech upon admission, but no slurring noted durring session. STRAIGHT RULING MACHINE OPERATOR recommends no change to diet and no further tx at this time. Compensatory Strategies Utilized During Assessment: Alert (patient should be fully alert for P.O. intake), 1:1 Supervision, Alternate bites and sips, Sit upright 90 degrees for all PO, Small Bite/Sip, Self-monitoring [place] Swallow Protocol: Pass GOALS Patient /Caregiver Goals: Go Home PLAN ST Frequency: Discontinue Therapy Services Reasons Inpatient Therapy Services Discontinued: Patient appears safe and appropriate re: communication, cognition, and swallow function with the ability to return to a baseline level of function, No skilled needs Treatment Interventions: Dysphagia Management Plan of Care Developed with: Patient, Nurse SIGNATURE: Loly Arreguin [facility]-STRAIGHT RULING MACHINE OPERATOR PATIENT NAME: Lory Johnson DATE: October 16, 2024 TIME: 12:40 PM [facility] SerPl-aCncon 10-16-2024 TSH Qn 3.030 m[IU]/L Normal 0.270-4.20 0 [facility] Comment on above: Order Comment: Raghu sandoval Type: BLOOD SPECIMENOrdering Facility: [facility] Address: [address] [place] [address] [place] [address] Performed By: #### 1 9123-9, 14333-8, 3016-3, 80757-4 ####[facility] LABORATORYCLIA [id number] [place] [address] [facility] ALLIED HEALTHon 10-15-2024 ALLIED HEALTH HNO ID: [id number] Author: SHIRA DALTON Tech Service: ? Author Type: Child Welfare Manager Type: Allied Health Filed: 10/15/2024 18:07 Note Text: Radiology Service Progress Note PATIENT NAME: Lory Johnson DATE OF SERVICE: October 15, 2024 TIME: 6:07 PM PATIENT IDENTITY VERIFICATION COMPLETED USING TWO (2) IDENTIFIERS: Name and Date of confirmed by patient verbally. FALL SCREENING: Has the patient had 2 falls in the last year or 1 fall with injury or currently using an Ambulatory Assistive Device (Walker, Cane, Wheelchair, Crutches, etc.)? No PATIENT GENDER DATA: Assigned male at PATIENT RELEVANT IMPLANT DATA REVIEWED: Not Applicable PATIENT PRESENTS WITH AN IMPLANTABLE OR ATTACHED CLINICAL PROGRAM COORDINATOR: No RADIOLOGY DEPARTMENT: General X-ray: Exam(s) Completed: Chest X-Ray PERIPHERAL IV DATA: Not applicable SIGNED BY: Darling Humphreys October 15, 2024 6:07 PM Normal [facility] ARTERIAL BLOOD GASESon 10-15 Base excess Calc (Bld) [Moles/Vol] 1 mmol/L Normal 0-2 [facility] Comment on above: Order Comment: Raghu sandoval Type: ARTERIAL BLOOD SPECIMENOrdering Facility: [facility] Address: [address] [place], [place] [address] [address] Performed By: #### A LLBG ####INDY RESPIRATORYCLIA [id number] [facility] RESPIRATORY [id number] [address] [address] Carboxyhemoglobin (BldA) [Mass fraction] 1.4 % Normal 0.0-2.0 [facility] Comment on above: Order Comment: Speci men Type: ARTERIAL BLOOD SPECIMENOrdering Facility: [facility] Address: [address] [place] [address] Result Comment: Carb oxyhemoglobin Reference Range for Smokers: 2.0-8.0% Performed By: #### A LLBG ####[facility] RESPIRATORYCLIA [id number] [facility] RESPIRATORY [id number] [address] [address] CO2 (Bld) [Partial pressure] 37 mm Hg Normal 36-46 [facility] Comment on above: Order Comment: Speci men Type: ARTERIAL BLOOD SPECIMENOrdering Facility: [facility] Address: [address] [place] [address] Performed By: #### A LLBG ####[facility] RESPIRATORYCLIA [id number] [facility] RESPIRATORY [id number] [address] [address] CO2 adjusted to patient's actual temperature (Bld) [Partial pressure] Normal [facility] Comment on above: Order Comment: Speci men Type: ARTERIAL BLOOD SPECIMENOrdering Facility: [facility] Address: [address] [place] [address] Performed By: #### A LLBG ####[facility] RESPIRATORYCLIA [id number] [facility] RESPIRATORY [id number] [address] [address] HCO3 (Bld) [Moles/Vol] 25 mmol/L Normal 22-26 [facility] Comment on above: Order Comment: Speci men Type: ARTERIAL BLOOD SPECIMENOrdering Facility: [facility] Address: [address] [place] [address] Performed By: #### A LLBG ####[facility] RESPIRATORYCLIA [id number] [facility] RESPIRATORY [id number] [address] [address] Hemoglobin (Bld) [Mass/Vol] 14.3 g/dL Normal 13.0-17.0 [facility] Comment on above: Order Comment: Speci men Type: ARTERIAL BLOOD SPECIMENOrdering Facility: [facility] Address: [address] [place] [address] Performed By: #### A LLBG ####[facility] RESPIRATORYCLIA [id number] [facility] RESPIRATORY [id number] [address] [address] Lactate [Moles/Vol] 1.4 mmol/L Normal 0.5-2.2 [facility] Comment on above: Order Comment: Speci men Type: ARTERIAL BLOOD SPECIMENOrdering Facility: [facility] Address: [address] [place] [address] Performed By: #### A LLBG ####[facility] RESPIRATORYVERMONT PS[facility] [id number] [facility]OS[facility] RESPIRATORY [id number] [address] [address] Methemoglobin (Bld) [Mass fraction] % Normal 0.0-1.5 [facility] Comment on above: Order Comment: Speci men Type: ARTERIAL BLOOD SPECIMENOrdering Facility: [facility] Address: [address] [place] [id number] Performed By: #### A LLBG ####[place] [id number] [place] [address] RESPIRATORY [id number] [address] [address] O2 THERAPY RA=Room Air [facility] Comment on above: Order Comment: Speci men Type: ARTERIAL BLOOD SPECIMENOrdering Facility: [facility] Address: [address] [place] [address] Performed By: #### A LLBG ####[place] [id number] [place] [address] RESPIRATORY [id number] [address] [address] Oxygen (Bld) [Partial pressure] 75 mm Hg Low 85-95 [facility] Comment on above: Order Comment: Speci men Type: ARTERIAL BLOOD SPECIMENOrdering Facility: [facility] Address: [address] [place] [address] Performed By: #### A LLBG ####[id number] [place] [address] RESPIRATORY [id number] [address] [address] Oxygen adjusted to patient's actual temperature (Bld) [Partial pressure] [facility] Comment on above: Order Comment: Speci men Type: ARTERIAL BLOOD SPECIMENOrdering Facility: [facility] Address: [address] [place] [address] Performed By: #### A LLBG ####[facility] RESPIRATORYIA [id number] [facility]OSPITAL RESPIRATORY [id number] [address] [address] Oxyhemoglobin (BldA) [Mass fraction] 95 % Normal 95-98 [facility] Comment on above: Order Comment: Speci men Type: ARTERIAL BLOOD SPECIMENOrdering Facility: [facility] Address: [address] [place] [address] Performed By: #### A LLBG ####[facility] RESPIRATORYIA [id number] [facility]OS[facility] RESPIRATORY [id number] [address] [address] pH (Bld) 7.44 [pH] Normal 7.35-7.45 [facility] Comment on above: Order Comment: Speci men Type: ARTERIAL BLOOD SPECIMENOrdering Facility: [facility] Address: [address] [place] [address] Performed By: #### A LLBG ####[facility] RESPIRATORYVERMONT PSY[facility]ATR[facility] [id number] HOSPITAL RESPIRATORY [id number] [address] [address] pH adjusted to patient's actual temperature (Bld) Normal [facility] Comment on above: Order Comment: Speci men Type: ARTERIAL BLOOD SPECIMENOrdering Facility: [facility] Address: [address] [place] [address] Performed By: #### A LLBG ####[facility] [id number] [facility]OS[facility] RESPIRATORY [id number] [address] [address] PO2 / FIO2 RATIO 357 mmHg Normal >300 [facility] Comment on above: Order Comment: Speci men Type: ARTERIAL BLOOD SPECIMENOrdering Facility: [facility] Address: [address] [place] [address] Performed By: #### A LLBG ####[facility] [id number] [facility]OS[facility] RESPIRATORY [id number] [address] [address] Potassium [Moles/Vol] 3.2 mmol/L Low 3.5-5.0 [facility] Comment on above: Order Comment: Speci men Type: ARTERIAL BLOOD SPECIMENOrdering Facility: [facility] Address: [address] [place] [address] Performed By: #### A LLBG ####[facility] RESPIRATORYCLIA [id number] [facility] RESPIRATORY [id number] [place] [address] CBC W Auto Differential pane l (Bld)on 10-15-2024 Basophils (Bld) [#/Vol] 0.04 10*3/uL Normal <0.11 [facility] Comment on above: Order Comment: Speci men Type: BLOOD SPECIMENOrdering Facility: [facility] Address: [address] [place] [address] Performed By: #### 5 7021-8 ####PAM [facility] LABORATORYCLIA [id number] [place] [address] [place] Basophils/100 WBC (Bld) 0.5 % Normal [facility] Comment on above: Order Comment: Speci men Type: BLOOD SPECIMENOrdering Facility: [facility] Address: [address] [place] [address] Performed By: #### 5 7021-8 ####PAM [facility] LABORATORYCLIA [id number] [place] [address] [place] Differential cell count method Nom (Bld) Auto Normal [facility] Comment on above: Order Comment: Speci men Type: BLOOD SPECIMENOrdering Facility: [facility] Address: [address] [place] [address] Performed By: #### 5 7021-8 ####PAM [facility] LABORATORYCLIA [id number] [place] [address] [place] Eosinophils (Bld) [#/Vol] 0.13 10*3/uL Normal <0.46 [facility] Comment on above: Order Comment: Speci men Type: BLOOD SPECIMENOrdering Facility: [facility] Address: [address] [place] [address] Performed By: #### 5 7021-8 ####PAM [facility] LABORATORYCLIA [id number] [address] [place] Eosinophils/100 WBC (Bld) 1.7 % Normal [facility] Comment on above: Order Comment: Speci men Type: BLOOD SPECIMENOrdering Facility: [facility] Address: [address] [place] [address] Performed By: #### 5 7021-8 ####JILLESTRELLA [facility] LABORATORYCLIA [id number] [address] [place] Erythrocyte distribution width (RBC) [Ratio] 13.3 % Normal 11.5-15.0 [facility] Comment on above: Order Comment: Speci men Type: BLOOD SPECIMENOrdering Facility: [facility] Address: [address] [place] [address] Performed By: #### 5 7021-8 ####PAM [facility] LABORATORYCLIA [id number] [address] [place] Hematocrit (Bld) [Volume fraction] 38.2 % Low 39.0-51.0 [facility] Comment on above: Order Comment: Speci men Type: BLOOD SPECIMENOrdering Facility: [facility] Address: [address] [place] [address] Performed By: #### 5 7021-8 ####JILLESTRELLA [facility] LABORATORYCLIA [id number] [address] Hemoglobin (Bld) [Mass/Vol] 12.8 g/dL Low 13.0-17.0 [facility] Comment on above: Order Comment: Speci men Type: BLOOD SPECIMENOrdering Facility: [facility] Address: [address] [place] [address] Performed By: #### 5 7021-8 ####PAM [facility] LABORATORYIA [id number] [place] [address] [place] [facility] Immature granulocytes (Bld) [#/Vol] 10*3/uL Normal <0.10 [facility] Comment on above: Order Comment: Speci men Type: BLOOD SPECIMENOrdering Facility: [facility] Address: [address] [place] [address] Performed By: #### 5 7021-8 ####PAM [facility] LABORATORYCLIA [id number] [address] Immature granulocytes/100 WBC (Bld) 0.1 % Normal [facility] Comment on above: Order Comment: Speci men Type: BLOOD SPECIMENOrdering Facility: [facility] Address: [address] [place] [address] Performed By: #### 5 7021-8 ####JILLESTRELLA [facility] LABORATORYCLIA [id number] [place] [address] [place] Lymphocytes (Bld) [#/Vol] 1.72 10*3/uL Normal 1.00-4.00 [facility] Comment on above: Order Comment: Speci men Type: BLOOD SPECIMENOrdering Facility: [facility] Address: [address] [place] [address] Performed By: #### 5 7021-8 ####JILLJERSON [facility] LABORATORYIA [id number] [address] Lymphocytes/100 WBC (Bld) 23.0 % Normal [facility] Comment on above: Order Comment: Speci men Type: BLOOD SPECIMENOrdering Facility: [facility] Address: [address] [place] [address] Performed By: #### 5 7021-8 ####JILLESTRELLA [facility] LABORATORYCLIA [id number] [place] [address] [place] MCH (RBC) [Entitic mass] 29.8 pg Normal 26.0-34.0 [facility] Comment on above: Order Comment: Speci men Type: BLOOD SPECIMENOrdering Facility: [facility] Address: [address] [place] [address] Performed By: #### 5 7021-8 ####JILLESTRELLA [facility] LABORATORYCLIA [id number] [address] STATES [facility] MCHC (RBC) [Mass/Vol] 33.5 g/dL Normal 30.5-36.0 [facility] Comment on above: Order Comment: Speci men Type: BLOOD SPECIMENOrdering Facility: [facility] Address: [address] [place] [address] Performed By: #### 5 7021-8 ####JILLESTRELLA [facility] LABORATORYCLIA [id number] [place] [address] [place] MCV (RBC) [Entitic vol] 88.8 fL Normal 80.0-100.0 [facility] Comment on above: Order Comment: Speci men Type: BLOOD SPECIMENOrdering Facility: [facility] Address: [address] [place] [address] Performed By: #### 5 7021-8 ####JILLESTRELLA [facility] LABORATORYCLIA [id number] [place] [address] [place] Monocytes (Bld) [#/Vol] 0.89 10*3/uL High <0.87 [facility] Comment on above: Order Comment: Speci men Type: BLOOD SPECIMENOrdering Facility: [facility] Address: [address] [place] [address] Performed By: #### 5 7021-8 ####JILLESTRELLA [facility] LABORATORYCLIA [id number] [address] [place] Monocytes/100 WBC (Bld) 11.9 % Normal [facility] Comment on above: Order Comment: Speci men Type: BLOOD SPECIMENOrdering Facility: [facility] Address: [address] [place] [address] Performed By: #### 5 7021-8 ####JILLESTRELLA [facility] LABORATORYCLIA [id number] [place] [address] [place] Neutrophils (Bld) [#/Vol] 4.69 10*3/uL Normal 1.45-7.50 [facility] Comment on above: Order Comment: Speci men Type: BLOOD SPECIMENOrdering Facility: [facility] Address: [address] [place] [address] Performed By: #### 5 7021-8 ####PAM [facility] LABORATORYCLIA [id number] [place] [address] [place] Neutrophils/100 WBC (Bld) 62.8 % Normal [facility] Comment on above: Order Comment: Speci men Type: BLOOD SPECIMENOrdering Facility: [facility] Address: [address] [place] [address] Performed By: #### 5 7021-8 ####PAM [facility] LABORATORYCLIA [id number] [place] [address] [place] Nucleated RBC (Bld) [#/Vol] 10*3/uL Normal <0.01 [facility] Comment on above: Order Comment: Speci men Type: BLOOD SPECIMENOrdering Facility: [facility] Address: [address] [place] [address] Performed By: #### 5 7021-8 ####PAM [facility]ENTERIA [id number] [address] Nucleated RBC/100 WBC (Bld) [Ratio] 0.0 /[address] [facility] Comment on above: Order Comment: Speci men Type: BLOOD SPECIMENOrdering Facility: [facility] Address: [address] [place] [address] Performed By: #### 5 7021-8 ####PAM [facility] LABORATORYIA [id number] [place] [address] [place] [facility] [place] Platelet mean volume (Bld) [Entitic vol] 9.5 fL Normal 9.0-12.7 [facility] Comment on above: Order Comment: Speci men Type: BLOOD SPECIMENOrdering Facility: [facility] Address: [address] [place] [address] Performed By: #### 5 7021-8 ####PAM [facility] LABORATORYIA [id number] [place] [address] [place] Platelets (Bld) [#/Vol] 201 10*3/uL Normal 150-400 [facility] Comment on above: Order Comment: Speci men Type: BLOOD SPECIMENOrdering Facility: [facility] Address: [address] [place] [address] Performed By: #### 5 7021-8 ####JILLESTRELLA [facility] LABORATORYCLIA [id number] [place] [id number] [facility] RBC (Bld) [#/Vol] 4.30 10*6/uL Normal 4.20-6.00 [facility] Comment on above: Order Comment: Speci men Type: BLOOD SPECIMENOrdering Facility: [facility] Address: [address] [place] [address] Performed By: #### 5 7021-8 ####JILLESTRELLA [facility]ENTERIA [id number] [address] WBC (Bld) [#/Vol] 7.48 10*3/uL Normal 3.70-11.00 [facility] Comment on above: Order Comment: Speci men Type: BLOOD SPECIMENOrdering Facility: [facility] Address: [address] [place] [address] Performed By: #### 5 7021-8 ####JILLESTRELLA [facility]ENTERIA [id number] [address] [place] BRAIN WO IVCONon 10-15-19 CT BRAIN WO IVCON Normal [facility] Comprehensive metabolic 2000 panelon 10-15-2024 Albumin [Mass/Vol] 3.5 g/dL Low 3.9-4.9 [facility] Comment on above: Order Comment: Speci men Type: BLOOD SPECIMENOrdering Facility: [facility] Address: [address] [place] [address] Performed By: #### 2 4323-8, 35907-1 ####JILLESTRELLA [facility] LABORATORYIA [id number] [address] [place] ALP [Catalytic activity/Vol] 104 U/L Normal 38-113 [facility] Comment on above: Order Comment: Speci men Type: BLOOD SPECIMENOrdering Facility: [facility] Address: [address] [place] [address] Performed By: #### 2 4323-8, ####PAM [facility] LABORATORYCLIA [id number] [place] [address] [place] ALT [Catalytic activity/Vol] 12 U/L Normal 10-54 [facility] Comment on above: Order Comment: Speci men Type: BLOOD SPECIMENOrdering Facility: [facility] Address: [address] [place] [address] Performed By: #### 2 4323-8, ####PAM [facility] LABORATORYCLIA [id number] [place] [address] [place] Anion gap [Moles/Vol] 10 mmol/L Normal 8-15 [facility] Comment on above: Order Comment: Speci men Type: BLOOD SPECIMENOrdering Facility: [facility] Address: [address] [place] [address] Performed By: #### 2 432-8, ####PAM [facility] LABORATORYCLIA [id number] [address] [place] AST [Catalytic activity/Vol] 14 U/L Normal 14-40 [facility] Comment on above: Order Comment: Speci men Type: BLOOD SPECIMENOrdering Facility: [facility] Address: [address] [place] [address] Performed By: #### 2 4323-8, ####PAM [facility] LABORATORYCLIA [id number] [place] [address] [place] Bilirubin [Mass/Vol] 0.3 mg/dL Normal 0.2-1.3 [facility] Comment on above: Order Comment: Speci men Type: BLOOD SPECIMENOrdering Facility: [facility] Address: [address] [place] [address] Performed By: #### 2 4323-8, ####PAM [facility] LABORATORYCLIA [id number] [place] [address] [place] Calcium [Mass/Vol] 8.9 mg/dL Normal 8.5-10.2 [facility] Comment on above: Order Comment: Speci men Type: BLOOD SPECIMENOrdering Facility: [facility] Address: [address] [place] [address] Performed By: #### 2 4323-8, ####JILLESTRELLA [facility] LABORATORYCLIA [id number] [place] [address] [place] Chloride [Moles/Vol] 108 mmol/L High 98-107 [facility] Comment on above: Order Comment: Speci men Type: BLOOD SPECIMENOrdering Facility: [facility] Address: [address] [place] [address] Performed By: #### 2 4323-8, ####PAM [facility] LABORATORYIA [id number] [place] [address] [place] CO2 [Moles/Vol] 25 mmol/L Normal 22-30 [facility] Comment on above: Order Comment: Speci men Type: BLOOD SPECIMENOrdering Facility: [facility] Address: [address] [place] [address] Performed By: #### 2 4323-8, ####JILLESTRELLA [facility] LABORATORYIA [id number] [place] [address] [place] Creatinine [Mass/Vol] 1.23 mg/dL High 0.73-1.22 [facility] Comment on above: Order Comment: Speci men Type: BLOOD SPECIMENOrdering Facility: [facility] Address: [address] [place] [address] Performed By: #### 2 4323-8, ####JILLESTRELLA [facility] LABORATORYIA [id number] [place] [id number] [place] Creatinine and Glomerular filtration rate.predicted panel (S/P/Bld) 59 mL/min/1.73m??? Low >=60 [facility] Comment on above: Order Comment: Raghu sandoval Type: BLOOD SPECIMENOrdering Facility: [facility] Address: [address] [id number] Result Comment: Carlita mated Glomerular Filtration Rate (eGFR) is calculated using the 2020 CKD-EPI creatinine equation. This equation utilizes serum creatinine, sex, and age as parameters. The creatinine assay has traceable calibration to isotope dilution-mass spectrometry. Refer to KDIGO guidelines for clinical interpretation. In patients with unstable renal function, e.g. those with acute kidney injury, the eGFR may not accurately reflect actual GFR. Performed By: #### 2 4323-8, 01538-6 ####PAM [facility] LABORATORYCLIA [id number] [place] [address] [place] Glucose [Mass/Vol] 107 mg/dL High 74-99 [facility] Comment on above: Order Comment: Raghu sandoval Type: BLOOD SPECIMENOrdering Facility: [facility] Address: [address] [place] [address] Result Comment: The [place] Diabetes Association (ADA) provides guidance for cutoff values for fasting glucose and random glucose. The ADA defines fasting as no caloric intake for at least 8 hours. Fasting plasma glucose results between 100 to 125 mg/dL indicate increased risk for diabetes (prediabetes).Fasting plasma glucose results greater than or equal to 126 mg/dL meet the criteria for diagnosis of diabetes. In the absence of unequivocal hyperglycemia, results should be confirmed by repeat testing. In a patient with classic symptoms of hyperglycemia or hyperglycemic crisis, random plasma glucose results greater than or equal to 200 mg/dL meet the criteria for diagnosis of diabetes.Reference: Standards of Medical Care in Diabetes 2016, [place] [employer]. Diabetes Care. 2016.39(Suppl 1). Performed By: #### 2 4323-8, 00014-7 ####PAM [facility] LABORATORYCLIA [id number] [place] [address] [place] Potassium [Moles/Vol] 3.7 mmol/L Normal 3.7-5.1 [facility] Comment on above: Order Comment: Raghu sandoval Type: BLOOD SPECIMENOrdering Facility: [facility] Address: [address] [id number] Performed By: #### 2 4323-8, ####PAM [facility] LABORATORYCLIA [id number] [place] [address] [place] Protein [Mass/Vol] 6.5 g/dL Normal 6.3-8.0 [facility] Comment on above: Order Comment: Speci men Type: BLOOD SPECIMENOrdering Facility: [facility] Address: [address] [place] [address] Performed By: #### 2 4323-8, ####JILLESTRELLA [facility] LABORATORYCLIA [id number] [place] [address] [place] Sodium [Moles/Vol] 143 mmol/L Normal 136-144 [facility] Comment on above: Order Comment: Speci men Type: BLOOD SPECIMENOrdering Facility: [facility] Address: [address] [place] [address] Performed By: #### 2 4323-8, ####JILLESTRELLA [facility] LABORATORYCLIA [id number] [place] [address] [place] Urea nitrogen [Mass/Vol] 18 mg/dL Normal 9-24 [facility] Comment on above: Order Comment: Speci men Type: BLOOD SPECIMENOrdering Facility: [facility] Address: [address] [place] [address] Performed By: #### 2 4323-8, 06280-1 ####PAM [facility] LABORATORYCLIA [id number] [place] [address] [place] ECG COMPLETEon 10-15-[address] [facility] ED NOTEon 10-15-2024 ED NOTE HNO ID: [id number] Author: BRINDA ADEN RN Service: Nursing Author Type: Registered Nurse Type: ED Notes Filed: 10/15/2024 15:34 Note Text: Report given to MMT, all questions answered, son to meet at [place]. Normal [facility] ED NOTE HNO ID: [id number] Author: BRINDA ADEN RN Service: Nursing Author Type: Registered Nurse Type: ED Notes Filed: 10/15/2024 14:30 Note Text: Report called to [place], all questions answered, patient and son updated on POC Normal [facility] ED NOTE Normal [facility] ED PROV NOTEon 10-15-[address] [facility] HISTORY PHYSICALon HISTORY PHYSICAL HNO ID: [id number] Author: NUBIA SALINAS MD Service: Hospital Medicine Author Type: Physician Type: H&P Filed: 10/16/2024 01:42 Note Text: DEPARTMENT OF HOSPITAL MEDICINE HISTORY AND PHYSICAL EXAM SERVICE DATE: 10/15/2024 SERVICE TIME: 5:16 PM Primary Care Physician: Adama Mendoza MD NIGHT AND WEEKEND COVERAGE: [employer] COVERAGE: Days: [phone], please page attending physician. Nights: [phone], please page [place] Hospitalist Night coverage pager [phone]. Subjective CHIEF COMPLAINT: AMS/hypersomnolence.LKN 8pm 10/14/24. 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 Patient was seen with son at the bedside. Patient was disoriented and was unable to say where he is at and unable to explain the reason why he was admitted in the hospital. Son was at the bedside and he did not recognize his son which the son said is usual for him. Son stated that his father was prescribed 25mg Seroquel to take at bedtime because he has been wondering in the middle of the night and has been sundowning a lot in the evenings, keeping him up at night and currently he has hired someone 3 nights a week to watch him so he can sleep. However , he did not start taking the Seroquel until yesterday evening when they came back very tired after being out all day though they did manage to eat in between . Son stated that he gave him 25 mg of Seroquel and in addition just as he was advised he increase his melatonin from 5 to 10 mg which he also took last night. He subsequently slept in the living room and was hard to arouse later and his son had to help him get to his room and he noted his speech was slurred and he needed a lot of assistance to get him to his bedroom. This morning he tried to arouse him but he could not wake him up. 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 Son also reported that he did not notice him dragging his leg when he was helping him to his bedroom last night and he did not notice any other weakness on one limb more than the other. He stated the patient has been sleeping for most of the day though he is currently awake now however is disoriented. He was able to tell me his name, his date of , the month which the son said is very difficult for him to remember but he does not know the year and he does not know where he is at. He does deny having any pain. He agrees that he has some cough but he does not know the duration of the cough. Son was at the bedside and stated that he has not had any cough until today but he seemed to be coughing a lot during the encounter. Son noted that he went with his father to visit his mother at the rehab facility and they were informed that she had influenza type A however they did wear a facemask during the visit. He denies noticing any other symptoms from the patient and patient denies any other symptoms including headache, chest pain, shortness of breath, nausea, vomiting, diarrhea no abdominal pain no chest pain. Of note, patient currently follows outpatient with neurology as well as at the [facility]. He is currently taking Aricept and Namenda. He previously used to use a CPAP machine but has not used it since June as felt it was not necessary since he has been doing okay without it. He did have an EEG in January 2024 which showed findings suggestive of cerebral dysfunction with potential epileptogenicity in the by frontocentral regions more on the right and also evidence of mild encephalopathy but no EEG seizures noted. Per chart review, these findings have been discussed with family and antiepileptic drug therapy was recommended but family declined. At the emergency room, blood pressure 181/84, pulse 65, temperature 97.6, respiratory rate 18, SpO2 98% on room air. LABS: CBC: Hemoglobin 12.8(was 13.3 on 06/15/2024). WBC and platelets normal CMP: Creatinine 1.23(was 1.25 on 05/10/2024), BUN 18, glucose 107, potassium 3.7, chloride 108, CO2 25, albumin 3.5, total bilirubin/alkaline phosphatase/AST/ALT normal Ma.6 Lactate 1.1 Urinalysis 1+ protein CT brain: No acute process Patient is currently being (more content not included)... Normal [facility] Magnesium [facility] Magn[facility] [Mass/Vol] 1.6 mg/dL Low 1.7-2.3 [facility] Comment on above: Order Comment: Speci men Type: BLOOD SPECIMENOrdering Facility: [facility] Address: [address] [place] [address] Performed By: #### 2 4323-8, 91748-7 ###BRONSON [facility] LABORATORYCLIA [id number] [address] STATES OF [facility] SEPSIS LACTATE W/ REFLEX (IN ITIAL)on 10-15-2024 Lactate [Moles/Vol] 1.1 mmol/L Normal <=2.0 [facility] Comment on above: Order Comment: Speci men Type: BLOOD SPECIMENOrdering Facility: [facility] Address: [address] [place] [address] Performed By: #### S LACTR ####JILLJERSON [facility] LABORATORYCLIA [id number] [address] [place] Urinalysis complete panel (U )on 10-15-2024 Bilirubin Ql (U) Negative Normal Negative [facility] Comment on above: Order Comment: Speci men Type: URINE SPECIMENOrdering Facility: [facility] Address: [address] [place] [address] Performed By: #### 2 4356-8 ####JILLESTRELLA [facility] LABORATORYCLIA [id number] [place] [address] [place] Clarity (Unsp spec) Clear Normal Clear [facility] Comment on above: Order Comment: Speci men Type: URINE SPECIMENOrdering Facility: [facility] Address: [address] [place] [address] Performed By: #### 2 4356-8 ####JILLESTRELLA [facility] LABORATORYIA [id number] [place] [address] [place] Color (U) Yellow Normal yellow [facility] Comment on above: Order Comment: Speci men Type: URINE SPECIMENOrdering Facility: [facility] Address: [address] [place] [address] Performed By: #### 2 4356-8 ####JILLESTRELLA [facility] LABORATORYIA [id number] [place] [address] [place] Glucose Test strip (U) [Mass/Vol] Negative Normal Trace, Negative [facility] Comment on above: Order Comment: Speci men Type: URINE SPECIMENOrdering Facility: [facility] Address: [address] [place] [address] Performed By: #### 2 4356-8 ####PAM [facility] LABORATORYIA [id number] [place] [address] [place] Hemoglobin Ql (U) Negative Normal Negative, Trace [facility] Comment on above: Order Comment: Speci men Type: URINE SPECIMENOrdering Facility: [facility] Address: [address] [place] [address] Performed By: #### 2 4356-8 ####PAM [facility] LABORATORYCLIA [id number] [place] [address] [place] Ketones Ql (U) Negative Normal Negative, Trace [facility] Comment on above: Order Comment: Speci men Type: URINE SPECIMENOrdering Facility: [facility] Address: [address] [place] [address] Performed By: #### 2 4356-8 ####JILLESTRELLA [facility] LABORATORYCLIA [id number] [address] Leukocyte esterase Test strip Ql (U) Negative Normal Negative, 25 Dieter/uL [facility] Comment on above: Order Comment: Speci men Type: URINE SPECIMENOrdering Facility: [facility] Address: [address] [place] [address] Performed By: #### 2 4356-8 ####JILLESTRELLA [facility] LABORATORYIA [id number] [address] STATES [facility] Nitrite Ql (U) Negative Normal Negative [facility] Comment on above: Order Comment: Speci men Type: URINE SPECIMENOrdering Facility: [facility] Address: [address] [place] [address] Performed By: #### 2 4356-8 ####JILLESTRELLA [facility] LABORATORYIA [id number] [place] [address] [place] [facility] pH (U) 5.5 [pH] Normal 5.0-8.0 [facility] Comment on above: Order Comment: Speci men Type: URINE SPECIMENOrdering Facility: [facility] Address: [address] [place] [address] Performed By: #### 2 4356-8 ####PAM [facility] LABORATORYIA [id number] [address] STATES [facility] Protein (U) [Mass/Vol] 1+ Abnormal Trace , Negative [facility] Comment on above: Order Comment: Speci men Type: URINE SPECIMENOrdering Facility: [facility] Address: [address] [place] [address] Performed By: #### 2 4356-8 ####JILLESTRELLA [facility] LABORATORYIA [id number] [place] [address] [place] RBC LM.HPF (Urine sed) [#/Area] 0-3 /HPF Normal 0-3 /HPF [facility] Comment on above: Order Comment: Speci men Type: URINE SPECIMENOrdering Facility: [facility] Address: [address] [place] [address] Performed By: #### 2 4356-8 ####JILLESTRELLA [facility] LABORATORYCLIA [id number] [place] [id number] [place] Specific gravity (U) [Rel density] 1.028 Normal 1.005-1.[address] [facility] Comment on above: Order Comment: Speci men Type: URINE SPECIMENOrdering Facility: [facility] Address: [address] [place] [address] Performed By: #### 2 4356-8 ####PAM [facility] LABORATORYCLIA [id number] [address] Urobilinogen Ql (U) Normal Normal Normal [facility] Comment on above: Order Comment: Speci men Type: URINE SPECIMENOrdering Facility: [facility] Address: [address] [place] [address] Performed By: #### 2 4356-8 ####PAM [facility] LABORATORYIA [id number] [address] WBC LM.HPF (Urine sed) [#/Area] 0-5 /HPF Normal 0-5 /HPF [facility] Comment on above: Order Comment: Speci men Type: URINE SPECIMENOrdering Facility: [facility] Address: [address] [place] [address] Performed By: #### 2 4356-8 ####PAM [facility] LABORATORYIA [id number] [address] [place] XR CHEST 1V FRONTAL PORTon 0 10-15-2024 XR CHEST 1V FRONTAL PORT * * *Final Report* * * DATE OF EXAM: Oct 15 2024 6:08PM MDX 5376 - XR CHEST 1V FRONTAL PORT / PROCEDURE REASON: Cough * * * * Physician Interpretation * * * * EXAMINATION: CHEST RADIOGRAPH (PORTABLE SINGLE VIEW AP) Exam Date/Time: 10/15/2024 6:08 PM CLINICAL HISTORY: Cough MQ: XCPR_5 Comparison: Chest x-ray 06/23/2023 RESULT: Lines, tubes, and devices: None. Lungs and pleura: Bilateral calcified pleural plaques. Bilateral basilar atelectasis. Possible trace pleural effusions. No pneumothorax. Cardiomediastinal silhouette: Stable cardiomediastinal silhouette. Other: . IMPRESSION: Bilateral basilar atelectasis. Possible trace pleural effusions. Precision Dancer: PSCB Transcribe Date/Time: Oct 16 2024 8:54A Dictated by : TANIA MCDONALD MD This examination was interpreted and the report reviewed and electronically signed by: TANIA MCDONALD MD on Oct 16 2024 8:56AM EST [id number] [facility] CNNURSEon 10-14-[address] [facility] CNOVon 10-14-[address] [facility] CNOV Normal [facility] ECG COMPLETEon 10-14-[address] [facility] CNOVon 10-11-[address] [facility] CNPNon 09-22-[address] [facility] 12 Lead EKGon 09-21-2024 12 Lead EKG [facility] Cardiovascular Services [address] [place] [address] 12 Lead EKG 09/21/24 0121 MR#: [id number] Acct: [id number] Name: NARA JOHNSON Rep #: [id number] : 1945 79 From: Cayden Morton MD Attending Dr: Status: DEP ER Ordering Dr: Fish Burnette DO Date: 09/21/24 Location: ED Sex: M C Admitted: Test Reason : Blood Pressure : */* mmHG Vent. Rate : 68 BPM Atrial Rate : 68 BPM P-R Int : 206 ms QRS Dur : 78 ms QT Int : 388 ms P-R-T Axes : 23 35 37 degrees QTcB Int : 412 ms Normal sinus rhythm Normal ECG Confirmed by PEARL LANTIGUA, CAYDEN ([id number]), fan mail editor SALINAS RAM ([id number]) on 09/22/2024 10:57:00 AM Referred By: Confirmed By: CAYDEN MORTON MD 09/22/24 1057 Date Cayden Morton MD CC: Dr. Adama Mendoza MD; Dr. Fish Burnette DO Signed Normal [facility] Brain/Head without Contrasto n 09-21-2024 Brain/Head without Contrast [facility] Imaging Services [address] [place] [address] Brain/Head without Contrast MR#: [id number] Acct: [id number] Name: NARA JOHNSON Rep #: [id number] : 1945 M 79 From: Porfirio mayberry MD PCP: Dr. Adama Mendoza MD Status: REG ER Study: Brain/Head without Contrast Date of Exam: 09/04 05/28 Exam# [id number] Ordering Dr: Fish Burnette DO :[id number] EXAM: CT HEAD WITHOUT INTRAVENOUS CONTRAST CLINICAL INDICATION: confusion TECHNIQUE: Multiple axial images were obtained of the head without intravenous contrast. This CT exam was performed using one or more of the following dose reduction techniques: automated exposure control, adjustment of the mA and/or kV according to patient size, and/or use of iterative reconstruction technique. RADIATION DOSE: Total DLP: 846.73 mGy-cm. COMPARISON: Nonenhanced cranial CT of 09/26/2023. FINDINGS: BRAIN AND EXTRA-AXIAL SPACES: Findings of moderate atrophy again noted with prominence of the cortical sulci, basal cisterns, sylvian fissures and ventricles. Mild-moderate patchy chronic small vessel ischemic changes are again noted within the deep white matter tracts. No intra- or extra-axial hemorrhage. No intracranial mass or mass effect. Posterior fossa structures are unremarkable. Lind-white matter differentiation is preserved. BONES/JOINTS: Unremarkable. No discrete lytic or blastic abnormalities. VASCULATURE: Atherosclerotic vascular calcification is present. The middle cerebral arteries are not hyperdense. SINUSES: Unremarkable as visualized. Clear. MASTOID AIR CELLS: Unremarkable. Clear. ORBITS: Visualized globes, extraocular muscles, optic nerves and retrobulbar fat appear unremarkable. CT/Brain/Head without Contrast IMPRESSION: No significant interval change. Atrophy and chronic small vessel ischemic changes again noted. No acute findings in the head/brain. Electronically Signed: Porfirio Hernandez MD at 2:55 EST , CC: Dr. Adama Mendoza MD; Dr. Fish Burnette DO Precision Dancer: Signed Normal [facility] CBC W/Diff, Automatedon 09-04 Absolute Lymph 1.52 X10 3/uL Normal 0.83-4.51 [facility] Comment on above: Performed By: #### L 500.4050, L100.0100 #### [facility] [address] [place], [address] Absolute Neut 6.6 X10 3/uL Normal 2.0-7.7 [facility] Comment on above: Performed By: #### L 500.4050, L100.0100 #### [facility] [address] [place], [address] Basophils/100 WBC (Bld) 0.3 % Normal 0-1 [facility] Comment on above: Performed By: #### L 500.4050, L100.0100 #### [facility] [address] [place], [address] Eosinophils/100 WBC (Bld) 1.9 % Normal 0-5 [facility] Comment on above: Performed By: #### L 500.4050, L100.0100 #### [facility] [address] [place], [address] Erythrocyte distribution width (RBC) [Ratio] 13.7 % Normal 11.6-14.6 [facility] Comment on above: Performed By: #### L 500.4050, L100.0100 #### [facility] [address] [place], [address] Hematocrit (Bld) [Volume fraction] 40.0 % Normal 40-54 [facility] Comment on above: Performed By: #### L 500.4050, L100.0100 #### [facility] [address] [place], [address] Hemoglobin (Bld) [Mass/Vol] 13.4 g/dL Normal 13.0-16.5 [facility] Comment on above: Performed By: #### L 500.4050, L100.0100 #### [facility] [address] [place], [address] IG% 0.400 Normal 0.0-0.9 [facility] Comment on above: Result Comment: IG% - Immature Granulocytes (promyelocytes, myelocytes and metamyelocytes) > 1% indicates that a LEFT SHIFT is Present. Performed By: #### L 500.4050, L100.0100 #### [facility] [address] [place], [address] Lymphocytes/100 WBC (Bld) 16.0 % Low 19-41 [facility] Comment on above: Performed By: #### L 500.4050, L100.0100 #### [facility] [address] [place], [address] MCH (RBC) [Entitic mass] 30.0 pg Normal 27.0-32.0 [facility] Comment on above: Performed By: #### L 500.4050, L100.0100 #### [facility] [address] [place], [address] MCHC (RBC) [Mass/Vol] 33.5 g/dL Normal 32-36 [facility] Comment on above: Performed By: #### L 500.4050, L100.0100 #### [facility] [address] [place], [address] MCV (RBC) [Entitic vol] 89.5 fL Normal 80-94 [facility] Comment on above: Performed By: #### L 500.4050, L100.0100 #### [facility] [address] [place], [address] Monocytes/100 WBC (Bld) 11.6 % High 0-10 [facility] Comment on above: Performed By: #### L 500.4050, L100.0100 #### [facility] [address] [place], [address] Neutrophils/100 WBC (Bld) 69.8 % Normal 47-70 [facility] Comment on above: Performed By: #### L 500.4050, L100.0100 #### [facility] [address] [place], [address] Nucleated RBC (Bld) [#/Vol] 0 10*3/uL Normal 0-5 [facility] Comment on above: Performed By: #### L 500.4050, L100.0100 #### [facility] [address] [place], [address] Platelet mean volume (Bld) [Entitic vol] 9.9 fL Normal 6.2-12.0 [facility] Comment on above: Performed By: #### L 500.4050, L100.0100 #### [facility] [address] [place], [address] Platelets (Bld) [#/Vol] 194 10*3/uL Normal 150-450 [facility] Comment on above: Performed By: #### L 500.4050, L100.0100 #### [facility] [address] [place], [address] RBC (Bld) [#/Vol] 4.47 10*6/uL Low 4.6-6.2 [facility] Comment on above: Performed By: #### L 500.4050, L100.0100 #### [facility] [address] [place], [address] RDW SD 44.7 fl High 35.1-43.9 [facility] Comment on above: Performed By: #### L 500.4050, L100.0100 #### [facility] [address] [place], [address] WBC (Bld) [#/Vol] 9.5 10*3/uL Normal 4.4-11.0 [facility] Comment on above: Performed By: #### L 500.4050, L100.0100 #### [facility] [address] [place], [address] CNPNon 09-21-[address] [facility] Chest PA and Lateralon 09-21 Chest PA and Lateral [facility] Imaging Services [address] [place] [address] Chest PA and Lateral MR#: [id number] Acct: [id number] Name: NARA JOHNSON Rep #: [id number] : 1945 M 79 From: Porfirio mayberry MD PCP: Dr. Adama Mendoza MD Status: [facility] ER Study: Chest PA and Lateral Date of Exam: 09/21/24 Exam# [id number] Ordering Dr: Fish Burnette DO :[id number] EXAM: XR CHEST, 2 VIEWS CLINICAL INDICATION: confusion TECHNIQUE: Frontal and lateral views of the chest. COMPARISON: Previous chest radiographs of 06/08/2024 and 09/26/2023. FINDINGS: LUNGS AND PLEURAL SPACES: Patchy airspace disease previously seen within the right midlung has resolved. There is less patchy density within the right upper lobe as compared to the prior study, and the residual patchy density in this region could be due to calcified pleural plaques and/or partially resolved pneumonia. Chronic pleural-parenchymal scarring noted right lung base, partially obscuring the right hemidiaphragm, unchanged since 09/26. No acute infiltrates are noted on the left. No pneumothorax or pleural effusion. HEART: Heart size is borderline enlarged with normal pulmonary vasculature. MEDIASTINUM: Stable minimal elongation of the thoracic aorta. BONES/JOINTS: Thoracic dextroscoliosis and degenerative spurring again noted. No acute fracture. SOFT TISSUES: Unremarkable. RAD/Chest PA and Lateral IMPRESSION: Chronic right basilar pleural parenchymal scarring. Near complete resolution of the patchy density previously seen within the right mid to upper lung, indicating improving pneumonia; the residual patchy densities in the right upper lobe could be due to a small amount of pneumonia which has incompletely resolved and/or calcified pleural plaque. Electronically Signed: Porfirio Hernandez MD at 3:19 EST , CC: Dr. Adama Mendoza MD; Dr. Fish Burnette DO Precision Dancer: Signed Normal [facility] 09-21-2024 Albumin [Mass/Vol] 3.0 g/dL Low 3.2-5.0 [facility] Comment on above: Performed By: #### L 500.4050, L100.0100 #### [facility] [address] [facility] [place], [address] Albumin/Globulin [Mass ratio] 0.8 {ratio} Low 0.9-2.4 [facility] Comment on above: Performed By: #### L 500.4050, L100.0100 #### [facility] [address] [place], [address] ALK P 84 U/L Normal 45-117 [facility] Comment on above: Performed By: #### L 500.4050, L100.0100 #### [facility] [address] [place], [address] ALT [Catalytic activity/Vol] 20 U/L Normal 16-61 [facility] Comment on above: Performed By: #### L 500.4050, L100.0100 #### [facility] [address] [place], [address] AST [Catalytic activity/Vol] 14 U/L Low 15-37 [facility] Comment on above: Performed By: #### L 500.4050, L100.0100 #### [facility] [address] [place], [address] Bilirubin [Mass/Vol] 0.40 mg/dL Normal 0.20-1.00 [facility] Comment on above: Result Comment: For patients on eltrombopag therapy, use of Dimension [place] TBIL is not recommended. Performed By: #### L 500.4050, L100.0100 #### [facility] [address] [place], [address] BUN/CRE 17.9 RATIO Normal 10-20 [facility] Comment on above: Performed By: #### L 500.4050, L100.0100 #### [facility] [address] [place], [address] CA,Total 8.9 mg/dL Normal 8.5-10.1 [facility] Comment on above: Performed By: #### L 500.4050, L100.0100 #### [facility] [address] [place], [address] Chloride [Moles/Vol] 112 mmol/L High 98-107 [facility] Comment on above: Performed By: #### L 500.4050, L100.0100 #### [facility] [address] [place], [address] CO2 [Moles/Vol] 26.0 mmol/L Normal 21.0-32.0 [facility] Comment on above: Performed By: #### L 500.4050, L100.0100 #### [facility] [address] [place], [address] Creatinine [Mass/Vol] 1.23 mg/dL Normal 0.70-1.30 [facility] Comment on above: Result Comment: The validity of the calculated GFR GFRAA in patients over 70 years has not been determined. Clinical correlation is essential. Performed By: #### L 500.4050, L100.0100 #### [facility] [address] [place], [address] ECRCL 51.70 ml/min Normal [facility] Comment on above: Performed By: #### L 500.4050, L100.0100 #### [facility] [address] [place], [address] EST GFR - AA 73 mL/min Normal >60 [facility] Comment on above: Result Comment: Afri can [place] GFR Calc Performed By: #### L 500.4050, L100.0100 #### [facility] [address] [place], [address] GAP 4 Low 5-15 [facility] Comment on above: Performed By: #### L 500.4050, L100.0100 #### [facility] [address] [place], [address] GFR/1.73 sq M.predicted among non-blacks MDRD (S/P/Bld) [Vol rate/Area] 60 mL/min/{1.73_m2} Normal >60 [facility] Comment on above: Result Comment: Non- GFR Calc Performed By: #### L 500.4050, L100.0100 #### [facility] [address] [place], [address] Globulin (S) [Mass/Vol] 3.8 g/dL Normal 2.2-4.2 [facility] Comment on above: Performed By: #### L 500.4050, L100.0100 #### [facility] [address] [place], [address] Glucose [Mass/Vol] 118 mg/dL High 74-106 [facility] Comment on above: Result Comment: Fast ing Glucose result from 100 to 125 mg/dL suggests IMPAIRED HOMEOSTASIS per A.D.A. criteria. Performed By: #### L 500.4050, L100.0100 #### [facility] [address] [place], [address] Potassium [Moles/Vol] 3.7 mmol/L Normal 3.5-5.1 [facility] Comment on above: Performed By: #### L 500.4050, L100.0100 #### [facility] [address] [place], [address] Sodium [Moles/Vol] 142 mmol/L Normal 136-145 [facility] Comment on above: Performed By: #### L 500.4050, L100.0100 #### [facility] [address] [place], [address] T PROT 6.8 g/dL Normal 6.4-8.2 [facility] Comment on above: Performed By: #### L 500.4050, L100.0100 #### [facility] [address] [place], [address] Urea nitrogen [Mass/Vol] 22 mg/dL High 7-18 [facility] Comment on above: Performed By: #### L 500.4050, L100.0100 #### [facility] [address] [place], [address] Emergency Department Summary on 09-21-2024 Emergency Department Summary [facility] Medical Records Department [address] [place] [address] Emergency Department Summary 09/21/24 MR#: [id number] Acct: [id number] Name: NARA JOHNSON Rep #: [id number] : 1945 79 From: Fish Rodriguez PCP: Dr. Adama Mendoza MD Status:DEP ER Location: ED HPI History of Present Illness Chief Complaint: Alt LOC Informant: patient and EMS Narrative Narrative: Brought in by EMS reported altered mental status. Patient history of dementia on medications. Also hypertension, hyperlipidemia. Patient reports son called the ambulance. Patient denies headache cough chest pains abdominal pain. Denies urinary symptoms. Denies vomiting diarrhea. Currently no family is here for discussion. [facility] Medical History Dementia Abnormal nuclear stress test Obesity Old inferior wall myocardial infarction OAB (overactive bladder) Obstructive sleep apnea Rosacea Actinic keratoses Anemia Abdominal aortic aneurysm (AAA) Atherosclerotic heart disease of [place] coronary artery without angina pectoris Ischemic cerebrovascular accident (CVA) (02/10/18) Essential (primary) hypertension Dementia GERD (gastroesophageal reflux disease) HLD (hyperlipidemia) Prostate cancer Home Medications ???Medication ???Instructions ???Recorded ???Last Taken ???Type multivitamin 1 tab PO DAILY vitamin 10/04/13 02/09/18 History metoprolol succinate 50 mg 75 mg PO DAILY bp 02/10/18 10/15/20 History tablet,extended release 24 hr pravastatin 80 mg tablet 80 mg PO QHS cholesterol 02/10/18 02/09/18 History losartan 100 mg tablet 100 mg PO DAILY bp ##0 02/12/18 10/15/20 Rx solifenacin 5 mg tablet 5 mg PO DAILY overactive bladder 08/17/20 Unknown History amlodipine 10 mg tablet 10 mg PO DAILY bp 09/11/20 10/15/20 History cinnamon bark 500 mg capsule 500 mg PO DAILY supplement 09/11/20 Unknown History donepezil 10 mg tablet 10 mg PO QHS memory 09/11/20 Unknown History nitroglycerin 0.4 mg sublingual 0.4 mg sublingual Q5-15M PRN 09/11/20 Unknown History tablet Cardiac/Chest Pain pantoprazole 40 mg tablet,delayed 40 mg PO DAILY stomach 09/11/20 Unknown History release alpha lipoic acid 200 mg capsule 200 mg PO DAILY see 09/12/21 Unknown History ascorbate calcium (vitamin C) 500 500 mg PO DAILY supplement 09/12/21 Unknown History mg tablet cholecalciferol (vitamin D3) 25 25 mcg PO DAILY supplement 04/28/24 Unknown History mcg (1,000 unit) capsule aspirin 81 mg tablet,delayed 81 mg PO DAILY blood thinner 06/08/24 Unknown History release memantine 10 mg tablet 10 mg PO BID memory 06/08/24 Unknown History levofloxacin 750 mg tablet 750 mg PO DAILY #3 tabs 06/13/24 Unknown Rx quetiapine 25 mg tablet (Seroquel) 25 mg PO QHS #30 tabs 06/13/24 Unknown Rx Allergy/AdvReac Type Severity Reaction Status Date / Time atorvastatin (From Lipitor) Allergy PT UNSURE Verified 09/21/24 00:57 OF REACTION azithromycin (From Zithromax) Allergy Itching Verified 09/21/24 00:57 Beta-Blockers Allergy NEEDS Verified 09/21/24 00:57 (Beta-Adrenergic Bloc FOLLOW-UP sildenafil (From Viagra) Allergy PT UNSURE Verified 09/21/24 00:57 OF REACTION Afodwgi-SNR-IjH Reductase Allergy Other Verified 09/21/24 00:57 Inhibitor (Kirtwtt-Tpm-Vyi Reductase Inhibitor) ezetimibe (From Zetia) AdvReac PT UNSURE Verified 09/21/24 00:57 OF REACTION Family History Sister CAD (coronary artery disease) Mother CAD (coronary artery disease) Father Colon cancer Brother CAD (coronary artery disease) Surgical History History of left heart catheterization (10/15/20) History of herniorrhaphy History of coronary artery stent placement (10/07/13) Social History Smoking Status: Current every day smoker tobacco type: cigarettes alcohol intake: never substance use type: does not use caffeine: Yes Type: coffee Number of servings: 3 ROS ROS ED Constitutional Constitutional ED: Denies chills, fever(s) or sweats ENT ENT ED: Denies sore throat Cardiovascular Cardiovascular: Denies chest pain Respiratory/Chest Respiratory/Chest: Denies cough Gastrointestinal Gastrointestinal: Denies abdominal pain, diarrhea, nausea or vomiting Genitourinary Genitourinary ED: Denies dysuria Musculoskeletal Musculoskeletal: Denies back pain or extremity pain Neurologic Neurologic: Denies headache(s) EXAM Physical Exam Const Vital Signs: 09/21/24 00:58 09/21/24 02:08 09/21/24 02:18 Temperature 98 F Temperature Source Oral Pulse Rate 74 68 73 Respiratory Rate 16 12 16 Blood Pressure 168/72 H Blood Pressure Carla (more content not included)... Normal [facility] M100.678on 09-21-2024 M100.678 Pending SARS-CoV-2 (COVID 19) Negative INFLUENZA A Negative INFLUENZA B Negative RSV PCR Negative Normal [facility] Comment on above: Performed By: #### M 100.678 #### [facility] [address] [place], [address] Urinalysis, Completeon 09-21 EPI,SQUAMOUS 0-5 SEEN Normal 0-5 [facility] Comment on above: Order Comment: CLEAN CATCH Performed By: #### L 400.0001 #### [facility] [address] [place], [address] BILIRUBIN URINE Negative Normal Negative [facility] Comment on above: Order Comment: CLEAN CATCH Performed By: #### L 400.0001 #### [facility] [address] [place], [address] Clarity (U) Clear Normal Clear [facility] Comment on above: Order Comment: CLEAN CATCH Performed By: #### L 400.0001 #### [facility] [address] [place], [address] Color (U) Yellow Normal Yellow [facility] Comment on above: Order Comment: CLEAN CATCH Performed By: #### L 400.0001 #### [facility] [address] [place], [address] GLUCOSE, UR Normal Normal Normal [facility] Comment on above: Order Comment: CLEAN CATCH Performed By: #### L 400.0001 #### [facility] [address] [place], [address] KETONE UR Negative Normal Negative [facility] Comment on above: Order Comment: CLEAN CATCH Performed By: #### L 400.0001 #### [facility] [address] [place], [address] LEUK ESTERASE Negative Normal Negative [facility] Comment on above: Order Comment: CLEAN CATCH Performed By: #### L 400.0001 #### [facility] [address] [place], [address] Nitrite Ql (U) Negative Normal Negative [facility] Comment on above: Order Comment: CLEAN CATCH Performed By: #### L 400.0001 #### [facility] [address] [place], [address] OCCULT BLOOD-UR Negative Normal Negative [facility] Comment on above: Order Comment: CLEAN CATCH Performed By: #### L 400.0001 #### [facility] [address] [place], [address] pH UR 6.5 Normal 5.0 - 8.0 [facility] Comment on above: Order Comment: CLEAN CATCH Performed By: #### L 400.0001 #### [facility] [address] [place], [address] PROT DIPSTX 15 mg/dl Abnormal Negative [facility] Comment on above: Order Comment: CLEAN CATCH Performed By: #### L 400.0001 #### [facility] [address] [place], [address] SP.GR. DIPSTX 1.010 Normal 1.002-1.03 0 [facility] Comment on above: Order Comment: CLEAN CATCH Performed By: #### L 400.0001 #### [facility] [address] [place], [address] UROBILI Normal Normal Normal [facility] Comment on above: Order Comment: CLEAN CATCH Performed By: #### L 400.0001 #### [facility] [address] [place], [address] BACTERIA 0 SEEN Normal None Seen [facility] Comment on above: Order Comment: CLEAN CATCH Performed By: #### L 400.0001 #### [facility] [address] [place], [address] Mucus Ql (Urine sed) 0 SEEN Normal [facility] Comment on above: Order Comment: CLEAN CATCH Performed By: #### L 400.0001 #### [facility] [address] [place], [address] RBC 0 SEEN Normal 0-5 [facility] Comment on above: Order Comment: CLEAN CATCH Performed By: #### L 400.0001 #### [facility] [address] [place], [address] WBC 0 SEEN Normal 0-5 [facility] Comment on above: Order Comment: CLEAN CATCH Performed By: #### L 400.0001 #### [facility] [address] [place], [address] B. burgdorferi IgG and IgM p candelario (S)on 09-20-2024 B. burgdorferi IgG+IgM Qn (S) Negative Normal Negative [facility] Comment on above: Order Comment: Speci men Type: BLOOD SPECIMENOrdering Facility: [facility] Address: [address] [place] [address] Result Comment: Rece nt infection with B. burgdorferi sensu lato cannot be excluded if the specimen collected within four weeks after the onset of signs and symptoms or within six weeks after a known tick exposure. Clinical and epidemiological correlation is required. Performed By: #### 3 4942-3 ####[facility] LABCLIA [id number] [facility] [id number] [address] [place] CNOVon 09-20-[address] [facility] CNPNon 09-19-[address] [facility] CNPNon 09-13-[address] [facility] CNOVon 09-10-[address] [facility] XR HIP 3V PELV+ AP/LAT LTon 09-10-2024 XR HIP 3V PELV+ AP/LAT LT Normal [facility] CNPNon 09-06-[address] [facility] CNOVon 08-22-[address] [facility] SURGICAL PATHOLOGYon [address] [facility] Comment on above: Order Comment: Speci men Type: TISSUE SPECIMENOrdering Facility: [facility] Address: [address] [place] [address] Result Comment: Surg ical Pathology Report Case: [id number] Provider: Rubén Gonzalez MD Collected: 08/22/2024 01:31 PMOrdering Location: General Surgery Received: 08/22/2024 04:43 PMPathologist: Maira Aparicio MDSpecimen: Soft Tissue, Mass, Biopsy, right mid back mass Performed By: #### S ####[facility] LABCLIA [id number] [place] [address] [place] CLINICAL HISTORY Normal [facility] Comment on above: Order Comment: Speci men Type: TISSUE SPECIMENOrdering Facility: [facility] Address: [address] [place] [address] Result Comment: mass of subcutaneous tissue of backComment: right side Performed By: #### S ####[facility] LABCLIA [id number] [place] [address] [place] FINAL DIAGNOSIS Normal [facility] Comment on above: Order Comment: Speci men Type: TISSUE SPECIMENOrdering Facility: [facility] Address: [address] [place] [address] Result Comment: Soft tissue, back, core biopsy:- Spindle cell lipoma. Performed By: #### S ####[facility] LABCLIA [id number] [place] [address] [place] FINAL PERFORMING LAB Normal [facility] Comment on above: Order Comment: Speci men Type: TISSUE SPECIMENOrdering Facility: [facility] Address: [address] [place] [address] Result Comment: Diag nostic interpretation performed at [facility], [address] [place] [address] CLIA# [id number] Director: Jose Rafael Harris M.D. Performed By: #### S ####[facility] LABCLIA [id number] [place] [address] [place] GROSS DESCRIPTION Normal [facility] Comment on above: Order Comment: Speci men Type: TISSUE SPECIMENOrdering Facility: [facility] Address: [address] [place] [address] Result Comment: A. S oft Tissue, Mass, BiopsyReceived in formalin are two segments of cylindrical tissue aggregating to 2.2 x 0.3 x 0.1 cm, kenyon-white and of a soft consistency. Totally submitted in one cassette.[facility] August 22, 2024 10:19 PMGross examination performed at [facility], [address] [place] [address] Performed By: #### S ####[facility] LABCLIA [id number] [place] [address] [place] US GUIDED SOFT TISSUE MASS B IOPSY (POC) SURG USE ONLYon 08-22-2024 [facility] CNNURSEon 08-16-[address] [facility] CNOVon 08-08-[address] [facility] CNCOon 08-01-2024 [address] Letter Text Normal [facility] CNPNon 08-01-[address] [facility] US CHEST WALL/SOFT TISSUEon 07-27-2024 US CHEST WALL/SOFT TISSUE Invalid Interpretation Code [facility] CBC W Auto Differential pane l (Bld)on 09-11-2024 Basophils (Bld) [#/Vol] 0.05 10*3/uL [facility] Basophils/100 WBC (Bld) 0.5 % [facility] Differential cell count method Nom (Bld) Auto [facility] Eosinophils (Bld) [#/Vol] 0.19 10*3/uL [facility] Eosinophils/100 WBC (Bld) 1.8 % [facility] Erythrocyte distribution width (RBC) [Ratio] 13.6 % 11.5 - 15.0 % [facility] Hematocrit (Bld) [Volume fraction] 41.3 % 39.0 - 51.0 % [facility] Hemoglobin (Bld) [Mass/Vol] 13.3 g/dL 13.0 - 17.0 g/dL [facility] Immature granulocytes (Bld) [#/Vol] 0.07 10*3/uL [facility] Immature granulocytes/100 WBC (Bld) 0.7 % [facility] Interpretation and review of laboratory results Abnormal [facility] Lymphocytes (Bld) [#/Vol] 1.81 10*3/uL [facility] Lymphocytes/100 WBC (Bld) 17.3 % [facility] MCH (RBC) [Entitic mass] 30.0 pg 26.0 - 34.0 pg [facility] MCHC (RBC) [Mass/Vol] 32.2 g/dL 30.5 - 36.0 g/dL [facility] MCV (RBC) [Entitic vol] 93.0 fL 80.0 - 100.0 fL [facility] Monocytes (Bld) [#/Vol] 1.07 10*3/uL High [facility] Monocytes/100 WBC (Bld) 10.2 % [facility] Neutrophils (Bld) [#/Vol] 7.25 10*3/uL [facility] Neutrophils/100 WBC (Bld) 69.5 % [facility] Nucleated RBC (Bld) [#/Vol] [facility] Nucleated RBC/100 WBC (Bld) [Ratio] 0.0 % /100 WBC [facility] Platelet mean volume (Bld) [Entitic vol] 10.8 fL 9.0 - 12.7 fL [facility] Platelets (Bld) [#/Vol] 273 10*3/uL [facility] RBC (Bld) [#/Vol] 4.44 10*6/uL 4.20 - 6.00 m/uL [facility] WBC (Bld) [#/Vol] 10.44 10*3/uL [facility] X[facility] Foot - left AP and Latera l and obliqueon 03-11-2024 IMPRESSION: No acute osseous abnormality. Degenerative changes as described. Precision Dancer: TITUS Transcribe Date/Time: Mar 11 2024 8:55A Dictated by : MONICA WISE DO This examination was interpreted and the report reviewed and electronically signed by: MONICA WISE DO on Mar 11 2024 8:58AM [facility] DIVISION OF RADIOLOGY * * *Final Report* * * DATE OF EXAM: Mar 04 2024 12:33PM WOX [id number] - XR FOOT 3V AP/LAT/OBL LT / PROCEDURE REASON: Pain of left heel * * * * Physician Interpretation * * * * EXAMINATION: XR FOOT 3V AP/LAT/OBL LT PATIENT/TECHNOLOGIST PROVIDED HISTORY: Acute left heel pain, no known injury. CLINICAL INFORMATION: 78 years old Male with Pain of left heel TECHNIQUE: XR FOOT 3V AP/LAT/OBL LT Laterality: LEFT Number of different views (projections): 3 COMPARISON: None. RESULT: No acute fracture. Mild-moderate degenerative change 1st MTP joint. Mild scattered degenerative changes at the interphalangeal joints. Joint spaces are otherwise maintained. Dorsal midfoot osteophytes. Distal Achilles insertional and proximal plantar fascial spurs. Ossification in the proximal plantar fascia. DIVISION OF RADIOLOGY Provider, [facility] - 03/11/2024 * * *Final Report* * * DATE OF EXAM: Mar 04 2024 12:33PM WOX [id number] - XR FOOT 3V AP/LAT/OBL LT / PROCEDURE REASON: Pain of left heel * * * * Physician Interpretation * * * * EXAMINATION: XR FOOT 3V AP/LAT/OBL LT PATIENT/TECHNOLOGIST PROVIDED HISTORY: Acute left heel pain, no known injury. CLINICAL INFORMATION: 78 years old Male with Pain of left heel TECHNIQUE: XR FOOT 3V AP/LAT/OBL LT Laterality: LEFT Number of different views (projections): 3 COMPARISON: None. RESULT: No acute fracture. Mild-moderate degenerative change 1st MTP joint. Mild scattered degenerative changes at the interphalangeal joints. Joint spaces are otherwise maintained. Dorsal midfoot osteophytes. Distal Achilles insertional and proximal plantar fascial spurs. Ossification in the proximal plantar fascia. IMPRESSION IMPRESSION: No acute osseous abnormality. Degenerative changes as described. Precision Dancer: TITUS Transcribe Date/Time: Mar 11 2024 8:55A Dictated by : MONICA WISE DO This examination was interpreted and the report reviewed and electronically signed by: MONICA WISE DO on Mar 11 2024 8:58AM EST [facility] XR Foot - left AP and Latera l and obliqueOrdered By: Ccf Provider on 03-11-2024 [facility] XR Foot - left AP and Latera l and obliqueon 03-04-2024 Radiology Study observation (narrative) [facility] CNOVon 01-06-2024 CNOV Office Visit (EEGMDR ) LORY JOHNSON ([id number]) 1945 M NFR Date Time Provider Department 01/06/24 10:15 AM EEG NEUR [place] EEGMDR During your visit today, we recorded the following information about you: Referring Provider: SHAYE KITCHEN JR [[id number]] Allergies As of Date: 01/06/2024 Noted Allergy Reaction ZITHROMAX (AZITHROMYCIN) 08/01/2005 9 - Itching BETA-BLOCKERS (BETA-ADRENERGIC BL*10/12/2023 16 - Unknown LIPITOR (ATORVASTATIN) 08/01/2005 5 - Intolerance VIAGRA (SILDENAFIL) 08/01/2005 16 - Unknown ZETIA (EZETIMIBE) 01/06/2008 1 - Mental Status Change Date Reviewed: 12/08/2023 Reviewed by: Stephany Suarez MD - Fully Assessed Visit Diagnoses:Seizure (HCC) [R56.9] Altered mental status, unspecified altered mental status type [R41.82] Order(s):EPI EEG ROUTINE [[id number]] Order #: [id number]. #:[id number] Prescriptions as of 01/08/2024 - pantoprazole DR (PROTONIX) 40 mg tablet Take 1 tablet by mouth daily before breakfast. Take on empty stomach, 1/2 hr before meal. - umeclidinium-vilanterol (ANORO ELLIPTA) 62.5-25 mcg/actuation inhaler Inhale 1 Inhalation as instructed once daily. - VITAMIN B COMPLEX-100 ORAL Take by mouth. - ubidecarenone/vitamin E mixed (COQ10 SG 100 ORAL) Take by mouth. - memantine (NAMENDA) 10 mg tablet Take 1 tablet by mouth two times a day. - donepezil (ARICEPT) 10 mg tablet Take 1 tablet by mouth daily at bedtime. - pravastatin (PRAVACHOL) 80 mg tablet Take 1 tablet by mouth daily at bedtime. - losartan (COZAAR) 100 mg tablet Take 1 tablet by mouth once daily. - amLODIPine (NORVASC) 10 mg tablet Take 1 tablet by mouth once daily. - solifenacin (VESICARE) 5 mg tablet Take 1 tablet by mouth once daily. - metoprolol succinate ER (TOPROL XL) 50 mg 24 hr tablet Take 1.5 tablets by mouth once daily. - aspirin, enteric coated (ECOTRIN LOW STRENGTH) 81 mg EC tablet Take 1 tablet by mouth once daily. - nitroglycerin sublingual (NITROSTAT) 0.4 mg SL tablet Dissolve 1 tablet under the tongue every 5 minutes as needed for chest pain. - cholecalciferol (VITAMIN D3) 1,000 unit tab tablet Take 1,000 Units by mouth once daily. - MELATONIN ORAL Take by mouth. - ASCORBIC ACID, VITAMIN C, ORAL Take by mouth. - Cinnamon Bark 500 mg cap Take 1 capsule by mouth once daily. - Blood Pressure Cuff - Home Use BLOOD PRESSURE CUFF FOR HOME USE. - DAILY MULTIVITAMIN TAB Take one(1) tablet daily. Problem List As Of Date 01/06/2024 Noted Resolved Rosacea [L71.9] 07/05/2003 Mixed hyperlipidemia [E78.2] 12/03/2002 Umbilical hernia without mention of obstruction*12/29/2002 02/01/2015 Essential hypertension, benign [I10] 05/12/2006 History of prostate cancer [Z85.46] 03/01/2008 Fam hx-ischem heart disease [Z82.49] 08/21/2009 Actinic Keratoses (Premalignant AK's) [L57.0] 08/16/2013 Neoplasm of uncertain behavior of skin: Right C*08/16/2013 02/01/2015 Actinic skin damage [L57.8] 08/16/2013 02/01/2015 Viral warts, unspecified [B07.9] 08/16/2013 02/01/2015 Gama angioma [D18.01] 08/16/2013 02/01/2015 Other seborrheic keratosis [L82.1] 08/16/2013 02/01/2015 Solar lentigo [L81.4] 08/16/2013 02/01/2015 Epidermal cyst [L72.0] 08/16/2013 02/01/2015 CAD S/P percutaneous coronary angioplasty [I25.*11/02/2013 3-vessel CAD [I25.10] 11/03/2013 Gastroesophageal reflux disease [K21.9] 08/03/2015 08/03/2015 GERD without esophagitis [K21.9] 11/15/2015 08/02/2018 Dementia without behavioral disturbance (HCC) [*05/15/2016 Ex-smoker [Z87.891] 10/31/2016 Lipoma of right forearm [D17.21] 05/05/2017 S/P right coronary artery (RCA) stent placement*05/15/2017 Medicare annual wellness visit, subsequent [Z00*11/25/2017 History of CVA (cerebrovascular accident) [Z86.*02/16/2018 NAIN (obstructive sleep apnea) [G47.33] 06/09/2018 Family history of colon cancer in father [Z80.0]06/09/2018 Chronic left shoulder pain [M25.512, G89.29] 06/30/2018 Elevated fasting blood sugar [R73.01] 12/01/2018 GERD without esophagitis [K21.9] 12/14/2018 Neck pain [M54.2] 04/18/2019 Overactive bladder [N32.81] 08/01/2019 Impaired driving skills [Z78.9] 08/16/2019 Muscle pain, lumbar [M79.18] 09/26/2019 Medication management [Z79.899] 12/14/2019 Anemia [D64.9] Living will on file [UMY4247] 03/26/2022 Advance directive discussed with patient [Z71.8*03/26/2022 Anterior dislocation of right shoulder [S43.014*10/31/2022 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 [*10/31/2022 Calcification of pleura on chest x-ray [J94.8] 10/23/2023 Emphysema lung (HCC) [J43.9] 10/23/2023 Encounter Status:Closed by SHAYE KITCHEN on 01/08/24 [facility] EPIL EEG ROUTINEon [facility] MRA BRAIN WO IVCONon 024 MRA BRAIN WO IVCON * * *Final Report* * * DATE OF EXAM: Dec 23 2023 7:59AM [facility] 0272 - MRA BRAIN WO IVCON / PROCEDURE REASON: G45.9-Transient cerebral ischemia, unspecified type * * * * Physician Interpretation * * * * EXAMINATION: MRA BRAIN WO IVCON, MRA CAROTID WO IVCON, MRI BRAIN WO IVCON HISTORY: Transient cerebral ischemia, unspecified type. Stroke. 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 Stroke: Acute. dementia, increased weakness, h/o stroke TECHNIQUE: MRI brain routine protocol without contrast.Intracranial and extracranial 3D [id number]-jqlzqm MRA with 2D multiplanar and 3D maximum intensity projections calculated on the imaging workstation under physician supervision. No conventional spin echo images were obtained beyond the MRA images listed above. M: [id number] COMPARISON: CT brain 03/26/2023. RESULT: MRI BRAIN: Acute Change: No evidence of an acute intracranial process. Hemorrhage: No evidence of prior parenchymal hemorrhage within the constraints of the acquisition. Mass Lesion/ Mass Effect: No evidence of an intracranial mass, extra-axial fluid collection, or significant localized mass effect. Chronic Change: Scattered patchy areas of increased T2 and FLAIR signal are present in the supratentorial white matter which is a nonspecific finding but likely represents mild chronic microvascular ischemia. Tiny remote cortical infarct in the bilateral middle frontal gyrus Parenchyma: There is moderate generalized parenchymal volume loss. Ventricles: Ventriculomegaly corresponds to the degree of parenchymal volume loss. Skull Base: Hypothalamic and pituitary region are grossly normal. Craniocervical junction is normal. No significant marrow replacement process. Vasculature: Major intracranial arteries and dural venous sinuses demonstrate typical flow voids, suggesting patency by spin echo criteria. Other: The paranasal sinuses and mastoid air cells are clear. The orbits and extracranial soft tissues are unremarkable. Intracranial MRA: Anterior Circulation: Mild luminal irregularity in the bilateral carotid siphons with no high-grade stenosis or occlusion. The right A1 segment is mildly more dominant. Bilateral proximal ACAs are patent. Bilateral proximal MCAs are patent and within normal limits of caliber. Posterior Circulation: Left intradural vertebral artery is mildly more dominant. The basilar artery is patent. Bilateral proximal director clinical information services are patent. Bilateral SCA and PICA are patent Other: None Extracranial MRA: Carotid Stenosis: Right Common: No significant stenosis. Right Internal Plaque: No significant plaque formation. Right Internal Carotid Stenosis (% by NASCET Criteria): 0% Left Common: No significant stenosis. Left Internal Carotid Plaque: No significant plaque formation. Left Internal Carotid Stenosis (% by NASCET Criteria): 0% Cervical Vertebral Arteries: Patency: Bilateral Dominance: Left, mildly more dominant IMPRESSION: No acute intracranial process. No high-grade stenosis or occlusion of the intracranial or extracranial arteries. Precision Dancer: PSCB Transcribe Date/Time: Dec 23 2023 8:12A Dictated by : LINUS HERNANDEZ DO This examination was interpreted and the report reviewed and electronically signed by: LINUS HERNANDEZ DO on Dec 23 2023 8:19AM EST [id number] [facility] MRA CAROTID WO IVCONon 12-22 MRA CAROTID WO IVCON * * *Final Report* * * DATE OF EXAM: Dec 23 2023 7:59AM [facility] 0275 - MRA CAROTID WO IVCON / PROCEDURE REASON: G45.9-Transient cerebral ischemia, unspecified type * * * * Physician Interpretation * * * * EXAMINATION: MRA BRAIN WO IVCON, MRA CAROTID WO IVCON, MRI BRAIN WO IVCON HISTORY: Transient cerebral ischemia, unspecified type. Stroke. 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 Stroke: Acute. dementia, increased weakness, h/o stroke TECHNIQUE: MRI brain routine protocol without contrast.Intracranial and extracranial 3D blkj-jq-reufqd MRA with 2D multiplanar and 3D maximum intensity projections calculated on the imaging workstation under physician supervision. No conventional spin echo images were obtained beyond the MRA images listed above. M: [id number] COMPARISON: CT brain 03/26/2023. RESULT: MRI BRAIN: Acute Change: No evidence of an acute intracranial process. Hemorrhage: No evidence of prior parenchymal hemorrhage within the constraints of the acquisition. Mass Lesion/ Mass Effect: No evidence of an intracranial mass, extra-axial fluid collection, or significant localized mass effect. Chronic Change: Scattered patchy areas of increased T2 and FLAIR signal are present in the supratentorial white matter which is a nonspecific finding but likely represents mild chronic microvascular ischemia. Tiny remote cortical infarct in the bilateral middle frontal gyrus Parenchyma: There is moderate generalized parenchymal volume loss. Ventricles: Ventriculomegaly corresponds to the degree of parenchymal volume loss. Skull Base: Hypothalamic and pituitary region are grossly normal. Craniocervical junction is normal. No significant marrow replacement process. Vasculature: Major intracranial arteries and dural venous sinuses demonstrate typical flow voids, suggesting patency by spin echo criteria. Other: The paranasal sinuses and mastoid air cells are clear. The orbits and extracranial soft tissues are unremarkable. Intracranial MRA: Anterior Circulation: Mild luminal irregularity in the bilateral carotid siphons with no high-grade stenosis or occlusion. The right A1 segment is mildly more dominant. Bilateral proximal ACAs are patent. Bilateral proximal MCAs are patent and within normal limits of caliber. Posterior Circulation: Left intradural vertebral artery is mildly more dominant. The basilar artery is patent. Bilateral proximal director clinical information services are patent. Bilateral SCA and PICA are patent Other: None Extracranial MRA: Carotid Stenosis: Right Common: No significant stenosis. Right Internal Plaque: No significant plaque formation. Right Internal Carotid Stenosis (% by NASCET Criteria): 0% Left Common: No significant stenosis. Left Internal Carotid Plaque: No significant plaque formation. Left Internal Carotid Stenosis (% by NASCET Criteria): 0% Cervical Vertebral Arteries: Patency: Bilateral Dominance: Left, mildly more dominant IMPRESSION: No acute intracranial process. No high-grade stenosis or occlusion of the intracranial or extracranial arteries. Precision Dancer: TITUS Transcribe Date/Time: Dec 23 2023 8:12A Dictated by : LINUS HERNANDEZ DO This examination was interpreted and the report reviewed and electronically signed by: LINUS HERNANDEZ DO on Dec 23 2023 8:19AM EST [id number] Normal [facility] MRI BRAIN WO IVCONon 024 MRI BRAIN WO IVCON * * *Final Report* * * DATE OF EXAM: Dec 23 2023 7:59AM [facility] 0294 - MRI BRAIN WO IVCON / PROCEDURE REASON: G45.9-Transient cerebral ischemia, unspecified type * * * * Physician Interpretation * * * * EXAMINATION: MRA BRAIN WO IVCON, MRA CAROTID WO IVCON, MRI BRAIN WO IVCON HISTORY: Transient cerebral ischemia, unspecified type. Stroke. 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 Stroke: Acute. dementia, increased weakness, h/o stroke TECHNIQUE: MRI brain routine protocol without contrast.Intracranial and extracranial 3D dzun-oj-hldawx MRA with 2D multiplanar and 3D maximum intensity projections calculated on the imaging workstation under physician supervision. No conventional spin echo images were obtained beyond the MRA images listed above. M: [id number] COMPARISON: CT brain 03/26/2023. RESULT: MRI BRAIN: Acute Change: No evidence of an acute intracranial process. Hemorrhage: No evidence of prior parenchymal hemorrhage within the constraints of the acquisition. Mass Lesion/ Mass Effect: No evidence of an intracranial mass, extra-axial fluid collection, or significant localized mass effect. Chronic Change: Scattered patchy areas of increased T2 and FLAIR signal are present in the supratentorial white matter which is a nonspecific finding but likely represents mild chronic microvascular ischemia. Tiny remote cortical infarct in the bilateral middle frontal gyrus Parenchyma: There is moderate generalized parenchymal volume loss. Ventricles: Ventriculomegaly corresponds to the degree of parenchymal volume loss. Skull Base: Hypothalamic and pituitary region are grossly normal. Craniocervical junction is normal. No significant marrow replacement process. Vasculature: Major intracranial arteries and dural venous sinuses demonstrate typical flow voids, suggesting patency by spin echo criteria. Other: The paranasal sinuses and mastoid air cells are clear. The orbits and extracranial soft tissues are unremarkable. Intracranial MRA: Anterior Circulation: Mild luminal irregularity in the bilateral carotid siphons with no high-grade stenosis or occlusion. The right A1 segment is mildly more dominant. Bilateral proximal ACAs are patent. Bilateral proximal MCAs are patent and within normal limits of caliber. Posterior Circulation: Left intradural vertebral artery is mildly more dominant. The basilar artery is patent. Bilateral proximal director clinical information services are patent. Bilateral SCA and PICA are patent Other: None Extracranial MRA: Carotid Stenosis: Right Common: No significant stenosis. Right Internal Plaque: No significant plaque formation. Right Internal Carotid Stenosis (% by NASCET Criteria): 0% Left Common: No significant stenosis. Left Internal Carotid Plaque: No significant plaque formation. Left Internal Carotid Stenosis (% by NASCET Criteria): 0% Cervical Vertebral Arteries: Patency: Bilateral Dominance: Left, mildly more dominant IMPRESSION: No acute intracranial process. No high-grade stenosis or occlusion of the intracranial or extracranial arteries. Precision Dancer: TITUS Transcribe Date/Time: Dec 23 2023 8:12A Dictated by : LINUS HERNANDEZ DO This examination was interpreted and the report reviewed and electronically signed by: LINUS HERNANDEZ DO on Dec 23 2023 8:19AM EST [id number] [facility] No Panel Informationon 12-22 [facility] No Panel Informationon 12-14 [facility] SPIROMETRY WITH DILATOR IF O BSTRUCTEDon 12-15-2023 DLCO (ml/min/mmHg) 14.59 ml/min/mmHg [facility] DLCO/VA (ml/min/mmHg/L) 3.69 ml/min/mmHg/L [facility] ERV BOX (L) 0.86 L [facility] DVR41-67% POST (L/S) 0.94 L/S [facility] DZN81-28% PRE (L/S) 0.57 L/S [facility] FEV1 PRE (L) 1.51 L [facility] FEV1/FVC POST (%) 60 % [facility] FEV1/FVC PRE (%) 56 % [facility] FEV1_POST (L) 1.72 L [facility] FRC Box (L) 2.44 L [facility] FVC POST (L) 2.86 L [facility] FVC PRE (L) 2.66 L [facility] IC BOX (L) 1.40 L [facility] PEF POST (L/S) 5.56 L/S [facility] PEF PRE (L/S) 5.19 L/S [facility] RV Box (L) 2.06 L [facility] RV/TLC Box (%) 51 % [facility] TLC Box (L) 4.04 L [facility] VA (L) 3.98 L [facility] VC (L) BOX 2.38 L [facility] Absolute lymphocyte countOrd ered By: Abelardo Lowe on 09-26-2023 Lymphocytes Auto (Unsp spec) [#/Vol] 2.10 10*3/uL 0.83-4.51 [facility] Basophil percentageOrdered B y: Abelardo Lowe on 09-26-2023 Basophil percentage 0 SEEN /hpf 0-5 [facility] Basophils/100 WBC (Bld) 0.6 % 0-1 [facility] Bilirubin [Mass/Vol] 0.50 mg/dL 0.20-1.00 [facility] Comment on above: For patients on eltr ombopag therapy, use of Dimension [place] TBIL is not recommended. Chloride [Moles/Vol] 110 mmol/L 98-107 [facility] Eosinophils/100 WBC (Bld) 4.0 % 0-5 [facility] Glucose [Mass/Vol] 95 mg/dL 74-106 [facility] Neutrophils (Bld) [#/Vol] 4.7 10*3/uL 2.0-7.7 [facility] Neutrophils/100 WBC (Bld) 58.8 % 47-70 [facility] Potassium [Moles/Vol] 4.2 mmol/L 3.5-5.1 [facility] Protein [Mass/Vol] 7.6 g/dL 6.4-8.2 [facility] Sodium [Moles/Vol] 141 mmol/L 136-145 [facility] WBC (Bld) [#/Vol] 8.1 10*3/uL 4.4-11.0 [facility] Bilirubin Test strip Ql (U)O rdered By: Abelardo Lowe on 09-26-2023 Bilirubin Ql (U) Negative Negative [facility] Blood erythrocytes count (nu mber/volume)Ordered By: Abelardo Lowe on 09-26-2023 RBC (Bld) [#/Vol] 4.91 10*6/uL 4.6-6.2 [facility] Blood hemoglobin measurement (mass/volume)Ordered By: Abelardo Lowe on 09-26-2023 Hemoglobin (Bld) [Mass/Vol] 14.4 g/dL 13.0-16.5 [facility] Blood lymphocytes/100 leukoc ytesOrdered By: Abelardo Lowe on 09-26-2023 Lymphocytes/100 WBC (Bld) 26.0 % 19-41 [facility] Blood monocytes/100 leukocyt esOrdered By: Abelardo Lowe on 09-26-2023 Monocytes/100 WBC (Bld) 10.4 % 0-10 [facility] Blood platelet mean volumeOr dered By: Abelardo Lowe on 09-26-2023 Platelet mean volume (Bld) [Entitic vol] 10.2 fL 6.2-12.0 [facility] Determination of erythrocyte mean corpuscular volume (MCV)Ordered By: Abelardo Lowe on 09-26-2023 MCV (RBC) [Entitic vol] 89.4 fL 80-94 [facility] Hematocrit Auto (Bld) [Volum e fraction]Ordered By: Abelardo Lowe on 09-26-2023 Hematocrit (Bld) [Volume fraction] 43.9 % 40-54 [facility] Influenza virus A and B and SARS-CoV-2 (COVID-19) Ag panel - Upper respiratory specimOrdered By: Abelardo Lowe on 09-26-2023 SARS-CoV-2 (COVID-19) RNA KARON+probe Ql (Resp) [facility] Ketones Test strip Ql (U)Ord ered By: Abelardo Lowe on 09-26-2023 Ketones Ql (U) Negative Negative [facility] - Chemistry and C hemistry - challengeOrdered By: Abelardo Lowe on 09-26-2023 ALP [Catalytic activity/Vol] 88 U/L 45-117 [facility] ALT [Catalytic activity/Vol] 33 U/L 16-61 [facility] CO2 [Moles/Vol] 30.0 mmol/L 21.0-32.0 [facility] Globulin (S) [Mass/Vol] 4.2 g/dL 2.2-4.2 [facility] Urea nitrogen/Creatinine [Mass ratio] 11.3 mg/mg 10-20 [facility] - Hematology and Cell countsOrdered By: Abelardo Lowe on 09-26-2023 Erythrocyte distribution width (RBC) [Entitic vol] 44.2 fL 35.1-43.9 [facility] Erythrocyte distribution width (RBC) [Ratio] 13.6 % 11.6-14.6 [facility] Immature granulocytes/100 WBC (Bld) 0.200 % 0.0-0.9 [facility] Comment on above: IG% - Immature Granu locytes (promyelocytes, myelocytes and metamyelocytes) > 1% indicates that a LEFT SHIFT is Present. MCH (RBC) [Entitic mass] 29.3 pg 27.0-32.0 [facility] Nucleated RBC/100 WBC (Bld) [Ratio] 0 % 0-5 [facility] MCHC Auto (RBC) [Mass/Vol]Or dered By: Abelardo Lowe on 09-26-2023 MCHC (RBC) [Mass/Vol] 32.8 g/dL 32-36 [facility] Mucus LM Ql (Urine sed)Order ed By: Abelardo Lowe on 09-26-2023 Mucus Ql (Urine sed) 0 SEEN /hpf [facility] Nitrite Test strip Ql (U)Ord ered By: Abelardo Lowe on 09-26-2023 Nitrite Ql (U) Negative Negative [facility] No Panel InformationOrdered By: Abelardo Lowe on 09-26-2023 Estimated Creatinine Clearance Calc 45.97 ml/min [facility] Estimated GFR (MDRD) Amer 72 mL/min >60 [facility] Comment on above: GFR Calc Estimated GFR (MDRD) Non-Af Amer 60 mL/min >60 [facility] Comment on above: Non- GFR Calc Platelets bldOrdered By: Mahesh Lowe on 09-26-2023 Platelets (Bld) [#/Vol] 197 10*3/uL 150-450 [facility] Protein Test strip Ql (U)Ord ered By: Abelardo Lowe on 09-26-2023 Protein Ql (U) Negative Negative [facility] Serum or plasma albumin ludwin urement (mass/volume)Ordered By: Abelardo Lowe on 09-26-2023 Albumin [Mass/Vol] 3.4 g/dL 3.2-5.0 [facility] Serum or plasma albumin/glob ulin mass ratioOrdered By: Abelardo Lowe on 09-26-2023 Albumin/Globulin [Mass ratio] 0.8 {ratio} 0.9-2.4 [facility] Serum or plasma calcium ludwin urement (mass/volume)Ordered By: Abelardo Lowe on 09-26-2023 Calcium [Mass/Vol] 9.5 mg/dL 8.5-10.1 [facility] Serum or plasma creatinine m easurement (mass/volume)Ordered By: Abelardo Lowe on 09-26-2023 Creatinine [Mass/Vol] 1.24 mg/dL 0.70-1.30 [facility] Comment on above: The validity of the calculated GFR & GFRAA in patients over 70 years has not been determined. Clinical correlation is essential. Serum or plasma urea nitroge n measurement (mass/volume)Ordered By: Abelardo Lowe on 09-26-2023 Urea nitrogen [Mass/Vol] 14 mg/dL 7-18 [facility] Squamous epithelial cells de tection in urine sediment by light microscopyOrdered By: Abelardo Lowe on 09-26-2023 Epithelial cells.squamous LM Ql (Urine sed) 0 SEEN /hpf 0-5 [facility] Thin prep Papanicolaou smear with manual screeningOrdered By: Abelardo Lowe on 09-26-2023 Thin prep Papanicolaou smear with manual screening 22 U/L 15-37 [facility] Thin prep Papanicolaou smear with manual screening 1 5-15 [facility] Urine blood detectionOrdered By: Abelardo Lowe on 09-26-2023 RBC Ql (U) Negative Negative [facility] RBC Ql (U) 0 SEEN /hpf 0-5 [facility] Urine clarityOrdered By: Mahesh Lowe on 09-26-2023 Clarity (U) Clear Clear [facility] Urine color determinationOrd ered By: Abelardo Lowe on 09-26-2023 Color (U) Yellow Yellow [facility] Urine glucose detectionOrder ed By: Abelardo Lowe on 09-26-2023 Glucose Ql (U) Normal mg/dl Normal [facility] Urine leukocyte esterase det ection by dipstickOrdered By: Abelardo Lowe on 09-26-2023 Leukocyte esterase Test strip Ql (U) Negative Negative [facility] Urine pHOrdered By: Abelardo doan on 09-26-2023 pH (U) 7.0 [pH] 5.0 - 8.0 [facility] Urine sediment bacteria coun t by microscopy (number/high power field)Ordered By: Abelardo Lowe on 09-26-2023 Bacteria LM.HPF (Urine sed) [#/Area] 0 /[HPF] None Seen [facility] Urine specific gravity measu rementOrdered By: Abelardo Lowe on 09-26-2023 Specific gravity (U) [Rel density] 1.005 1.002-1.03 0 [facility] Urobilinogen Auto test strip Ql (U)Ordered By: Abelardo Lowe on 09-26-2023 Urobilinogen Ql (U) Normal mg/dl Normal [facility] CBC W Auto Differential pane l (Bld)on 06-23-2023 Basophils (Bld) [#/Vol] <0.11 k/uL [facility] Basophils/100 WBC (Bld) 0.3 % [facility] Differential cell count method Nom (Bld) Auto [facility] Eosinophils (Bld) [#/Vol] 0.03 10*3/uL <0.46 k/uL [facility] Eosinophils/100 WBC (Bld) 0.4 % [facility] Erythrocyte distribution width (RBC) [Ratio] 12.7 % 11.5 - 15.0 % [facility] Hematocrit (Bld) [Volume fraction] 40.4 % 39.0 - 51.0 % [facility] Hemoglobin (Bld) [Mass/Vol] 13.2 g/dL 13.0 - 17.0 g/dL [facility] Immature granulocytes (Bld) [#/Vol] <0.10 k/uL [facility] Immature granulocytes/100 WBC (Bld) 0.3 % [facility] Lymphocytes (Bld) [#/Vol] 1.34 10*3/uL 1.00 - 4.00 k/uL [facility] Lymphocytes/100 WBC (Bld) 18.1 % [facility] MCH (RBC) [Entitic mass] 29.6 pg 26.0 - 34.0 pg [facility] MCHC (RBC) [Mass/Vol] 32.7 g/dL 30.5 - 36.0 g/dL [facility] MCV (RBC) [Entitic vol] 90.6 fL 80.0 - 100.0 fL [facility] Monocytes (Bld) [#/Vol] 1.02 10*3/uL High <0.87 k/uL [facility] Monocytes/100 WBC (Bld) 13.8 % [facility] Neutrophils (Bld) [#/Vol] 4.97 10*3/uL 1.45 - 7.50 k/uL [facility] Neutrophils/100 WBC (Bld) 67.1 % [facility] Nucleated RBC (Bld) [#/Vol] <0.01 k/uL [facility] Nucleated RBC/100 WBC (Bld) [Ratio] 0.0 /100 WBC [facility] Platelet mean volume (Bld) [Entitic vol] 10.9 fL 9.0 - 12.7 fL [facility] Platelets (Bld) [#/Vol] 179 10*3/uL 150 - 400 k/uL [facility] RBC (Bld) [#/Vol] 4.46 10*6/uL 4.20 - 6.00 m/uL [facility] WBC (Bld) [#/Vol] 7.40 10*3/uL 3.70 - 11.00 k/uL [facility] Urinalysis complete panel (U )on 06-23-2023 Bilirubin Ql (U) Negative Negative [facility] Clarity (Unsp spec) Clear Clear [facility] Color (U) Yellow Yellow [facility] Glucose Test strip (U) [Mass/Vol] Negative Trace, Negative [facility] Hemoglobin Ql (U) Negative Negative, Trace [facility] Ketones Ql (U) Negative Trace, Negative [facility] Leukocyte esterase Test strip Ql (U) Negative Negative, 25 Dieter/uL [facility] Nitrite Ql (U) 2+ Abnormal Negative [facility] pH (U) 5.5 [pH] 5.0 - 8.0 [facility] Protein (U) [Mass/Vol] 1+ Abnormal Trace , Negative [facility] RBC LM.HPF (Urine sed) [#/Area] 0-3 /HPF 0-3 /HPF [facility] Specific gravity (U) [Rel density] 1.027 1.005 - 1.030 [facility] Urobilinogen Ql (U) Negative Negative 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 No definite consolidations. Precision Dancer: TITUS Transcribe Date/Time: Jun 23 2023 11:15A Dictated by : ERIS CHAN MD This examination was interpreted and the report reviewed and electronically signed by: ERIS CHAN MD on Jun 23 2023 11:18AM [facility] DIVISION OF RADIOLOGY * * *Final Report* * * DATE OF EXAM: Jun 23 2023 10:51AM [id number] - XR CHEST 2V FRONTAL/LAT / PROCEDURE REASON: multiple diagnoses * * * * Physician Interpretation * * * * EXAMINATION: CHEST RADIOGRAPH (2 VIEW FRONTAL & LATERAL) CLINICAL HISTORY: COVID-19 Bacterial pneumonia MQ: XC2_6 EXAM DATE/TIME: 06/23/2023 10:51 AM COMPARISON: Chest x-ray on 07/18/2019 RESULT: Lines, tubes, and devices: None. Lungs and pleura: There are multiple calcified pleural plaques bilaterally, similar to prior study. No definite consolidations. No masses. No pleural effusions or pneumothorax. Cardiomediastinal silhouette: Stable cardiomediastinal silhouette. Bones and soft tissues: The spine shows degenerative changes. DIVISION OF RADIOLOGY Provider, [facility] - 06/23/2023 * * *Final Report* * * DATE OF EXAM: Jun 23 2023 10:51AM [id number] - XR CHEST 2V FRONTAL/LAT / PROCEDURE REASON: multiple diagnoses * * * * Physician Interpretation * * * * EXAMINATION: CHEST RADIOGRAPH (2 VIEW FRONTAL & LATERAL) CLINICAL HISTORY: COVID-19 Bacterial pneumonia MQ: XC2_6 EXAM DATE/TIME: 06/23/2023 10:51 AM COMPARISON: Chest x-ray on 07/18/2019 RESULT: Lines, tubes, and devices: None. Lungs and pleura: There are multiple calcified pleural plaques bilaterally, similar to prior study. No definite consolidations. No masses. No pleural effusions or pneumothorax. Cardiomediastinal silhouette: Stable cardiomediastinal silhouette. Bones and soft tissues: The spine shows degenerative changes. 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 No definite consolidations. Precision Dancer: TITUS Transcribe Date/Time: Jun 23 2023 11:15A Dictated by : ERIS CHAN MD This examination was interpreted and the report reviewed and electronically signed by: ERIS CHAN MD on Jun 23 2023 11:18AM EST [facility] Radiology Study observation (narrative) [facility] XR Chest PA and LateralOrder ed By: Ccf Provider on 06-23-2023 [facility] Absolute lymphocyte countOrd ered By: Harshil Nela on 06-17-2023 Lymphocytes Auto (Unsp spec) [#/Vol] 0.75 10*3/uL 0.83-4.51 [facility] Basophil percentageOrdered B y: Harshil Rondon on 06-17-2023 Basophil percentage 0 SEEN /hpf 0-5 [facility] Basophils/100 WBC (Bld) 0.4 % 0-1 [facility] Bilirubin [Mass/Vol] 0.50 mg/dL 0.20-1.00 [facility] Comment on above: For patients on eltr ombopag therapy, use of Dimension [place] TBIL is not recommended. Chloride [Moles/Vol] 108 mmol/L 98-107 [facility] Eosinophils/100 WBC (Bld) 0.4 % 0-5 [facility] Glucose [Mass/Vol] 125 mg/dL 74-106 [facility] Comment on above: Fasting Glucose resu lt from 100 to 125 mg/dL suggests IMPAIRED HOMEOSTASIS per A.D.A. criteria. Neutrophils (Bld) [#/Vol] 8.4 10*3/uL 2.0-7.7 [facility] Neutrophils/100 WBC (Bld) 81.6 % 47-70 [facility] Potassium [Moles/Vol] 3.6 mmol/L 3.5-5.1 [facility] Protein [Mass/Vol] 7.7 g/dL 6.4-8.2 [facility] Sodium [Moles/Vol] 139 mmol/L 136-145 [facility] WBC (Bld) [#/Vol] 10.3 10*3/uL 4.4-11.0 [facility] Lactate [Moles/Vol] 1.6 mmol/L 0.4-2.0 [facility] Bilirubin Test strip Ql (U)O rdered By: Harshil Rondon on 09-13-2023 Bilirubin Ql (U) Negative Negative [facility] Blood erythrocytes count (nu mber/volume)Ordered By: Harshil Rondon on 06-17-2023 RBC (Bld) [#/Vol] 4.79 10*6/uL 4.6-6.2 [facility] Blood hemoglobin measurement (mass/volume)Ordered By: Harshil Rondon on 06-17-2023 Hemoglobin (Bld) [Mass/Vol] 14.0 g/dL 13.0-16.5 [facility] Blood lymphocytes/100 leukoc ytesOrdered By: Harshil Rondon on 06-17-2023 Lymphocytes/100 WBC (Bld) 7.3 % 19-41 [facility] Blood monocytes/100 leukocyt esOrdered By: Harshil Rondon on 06-17-2023 Monocytes/100 WBC (Bld) 9.9 % 0-10 [facility] Blood platelet mean volumeOr dered By: Harshil Rondon on 06-17-2023 Platelet mean volume (Bld) [Entitic vol] 10.5 fL 6.2-12.0 [facility] Culture, urineOrdered By: Huan Rondon on 06-17-2023 Bacteria identified Cx Nom (U) Culture exhibits no growth. [facility] Determination of erythrocyte mean corpuscular volume (MCV)Ordered By: Harshil Rondon on 06-17-2023 MCV (RBC) [Entitic vol] 89.4 fL 80-94 [facility] Hematocrit Auto (Bld) [Volum e fraction]Ordered By: Harshil Rondon on 06-17-2023 Hematocrit (Bld) [Volume fraction] 42.8 % 40-54 [facility] INR in Blood by Coagulation assayOrdered By: Harshil Rondon on 06-17-2023 INR Coag (Bld) [Relative time] 1.1 {INR} [facility] Influenza virus A and B and SARS-CoV-2 (COVID-19) Ag panel - Upper respiratory specimOrdered By: Harshil Rondon on 06-17-2023 SARS-CoV-2 & FLU Antigen (Rapid) SARS-CoV-2 (COVID 19) [facility] SARS-CoV-2 & FLU Antigen (Rapid) SARS-CoV-2 (COVID 19) [facility] Ketones Test strip Ql (U)Ord ered By: Harshil Rondon on 06-17-2023 Ketones Ql (U) Negative Negative [facility] Laboratory - Chemistry and C hemistry - challengeOrdered By: Harshil Rondon on 06-17-2023 ALP [Catalytic activity/Vol] 85 U/L 45-117 [facility] ALT [Catalytic activity/Vol] 31 U/L 16-61 [facility] CO2 [Moles/Vol] 25.0 mmol/L 21.0-32.0 [facility] Globulin (S) [Mass/Vol] 4.3 g/dL 2.2-4.2 [facility] Urea nitrogen/Creatinine [Mass ratio] 11.0 mg/mg 10-20 [facility] Laboratory - CoagulationOrde red By: Harshil Rondon on 06-17-2023 aPTT Coag (Bld) [Time] 27.2 s 24.1-36.2 [facility] PT Coag (PPP) [Time] 13.8 s 11.7-14.9 [facility] Laboratory - Hematology and Cell countsOrdered By: Harshil Rondon on 06-17-2023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 IDIOPATHIC SKELETAL HYPEROSTOSIS. SIGNIFICANT DEGENERATIVE CHANGES. STABLE Precision Dancer: TITUS Transcribe Date/Time: Feb 18 2021 3:39P Dictated by : EDGAR KAY MD This examination was interpreted and the report reviewed and electronically signed by: EDGAR KAY MD on Feb 18 2021 3:40PM [facility] Radiology Study observation (narrative) [facility] XR Lumbar spine 3 ViewsOrder ed By: Ccf Provider on 02-18-2021 [facility] OTARon 08-12-2019 OT Assessment Report Normal [facility] OTAR Occupational Therapy Performance Skills Evaluation Therapy Diagnosis: Rank Code Description Date of Onset 1 I63.9 Cerebral infarction, unspecified 08/16/2019 2 F03.9 Unspecified dementia 08/16/2019 3 Z87.820 Personal history of traumatic brain injury 08/16/2019 4 R41.8 Other symptoms and signs involving cognitive 08/16/2019 functions and awareness 5 R29.6 Repeated falls 08/16/2019 Initial Evaluation Date: 08/12/19 Referring Clinician: Jami Scott Medical Diagnosis: STROKE Date of Onset: had R CVA on 02/10/18 Past Medical History: about 6 years ago fell off of ladder sustaining concussion with cognitive decline following per 's report; Dementia diagnosis and treatment; heart stent; HTN; history of falling including 3 times around time of stroke Current Medications: Amlodipine, Cozaar, baby aspirin, Donepezil, multiple vitamin, cinnamon, Alpha Lipoic acid ( was recalling from memory as did not have list) Demographics: Age: 74Y Gender: Male Primary Language: [place] Islander Preferred Language: [place] Island[place] OCCUPATIONAL PROFILE AND HISTORY Basic ADLs: he is able to complete all self care on his own and is doing so consistently Instrumental ADLs: he lives with his who continues to work 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 as 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; he stays busy throughout the day doing various tasks including dishes, outside work, laundry, cleaning tasks while had done meal prep in the past but not recently; manages their finances while Lory takes his own medications using pill box with no problems indicated Work/Leisure/Education: he completed 13 years of formal education; worked for 40 years at [employer] until 2004 while also typically having second job while 8 years at [employer] prior to retiring finally in 2006; he enjoys reading especially books about medical issues, woodworking, word searches, jigsaw puzzles although has not done this recently Driving History: Driving for: 60 years. Time Since Last Driven: early summer 2018 when they needed to take the truck to [facility] PATIENT NAME: LORY JOHNSON [facility] 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 Traffic Violations: Patient does not have any traffic violations. Patient Report: Lory indicated that he has stayed busy while his is working and has not minded that she has been the passenger coach driver for the both of them since his stroke. Patient/Caregiver Goals: Patient and spouse/significant other's functional goals: to determine if Lory is able to return to safe operation of motor vehicle on his own Pain: Patient currently without complaints of pain. Social History: Marital Status: Children: daughter and son Reside: daughter in [place] and son in [place] Employment Status: retired since 2006 Recreational Activities/Hobbies: woodworking, reading, word searches, jigsaw puzzles, home management tasks including outside work Self-reported Quality of Life: At present time, patient reports having a very good quality of life/health status. OBJECTIVE / OCCUPATIONAL PERFORMANCE General Observation: Lory was pleasant and cooperative throughout the session while did not initiate often but was appropriate with responses when asked. His was also there with tendency to be somewhat hyperverbal which she acknowledged. She was very helpful with regards to providing further history related to Lory's cognitive decline which was quickly observed by this therapist while more than just stroke effects. Visual/Perceptual Screening: Correctve Lenses: Patient wears corrective lenses. Date of Last Eye Exam: 2017 while current glasses about 3 years old Reading Skills: Higher level. Stereo - Optical Test: Far Acuity: 20/ 30 Glare far acuity R-20/40-1, L-20/40; just under functional range for B contrast sensitivity; functional for color and stereo depth perception, B [facility] PATIENT NAME: LORY JOHNSON [address] [facility] [address] MEDICAL REC #: [id number] [place] [address] ADMIT DATE: SERVICE DATE: 08/12/19 Occupational Therapy Assessment ATTENDING DOUGLASY: Jami Scott peripheral/nasal visual christine while slow to respond to 70 degrees on left. Oculomotor Skills: LEFT EYE RANGE OF MOTION: Left eye has full range of motion RIGHT EYE RANGE OF MOTION: Right eye has full range of motion BOTH EYE RANGE OF MOTION: Both eyes have full range of motion DIPLOPIA ON GAZE TO: Superior CONVERGENCE: Normal (6-8) LEFT FIELD SACCADES: Direct Fixation RIGHT FIELD SACCADES: Direct Fixation PURSUITS: Sustained Fixation VISUAL SCANNING: . Motor Free Visual Perception Test: Raw Score: 21 /36. Processing Time: 5 seconds. Norms: 70 - 80, 4.5 - 7.1 sec. Raw score normal for age is 25-35 correct while most of errors in visual memory and visual closure sections in addition to underresponding on L side indicating likely inattention (10 errors were on left side) COGNITION Screening Orientation: Impairment detected. Patient oriented to 3 /5 items. WAS NOT ORIENTED TO CORRECT YEAR OR MONTH Attention: Attempted to complete Trailmaking B for alternating attention however unable to complete the same in 180 sec (functional performance <178 sec) while multiple v/c's required. Safety/Judgment/Problem Solving: concerns related to verbal problem solving of driving related questions discussed while considering him being alone; he and his indicated that he is having increasing problems using his cellphone so would likely not be good option if he had emergency situation Memory: SCORE OF 25 ON SHORT BLESSED COGNITIVE SCREEN WHILE IN SEVERE IMPAIRMENT RANGE WITH ERRORS IN ORIENTATION/CONCENTRATION AND RECALL MEMORY SECTIONS Also noted during the evaluation: Delayed processing. CLOCK DRAWING SCORE OF 4/7 (normal >5/7); able to recall 6 digits forward for auditory attention; able to recall 4/4 recent past presidents with v/c's Physical Assessment Range of Motion: Within functional limits. Strength: Within functional limits. Sensation: Within functional limits. Coordination: Within functional limits. Rapid Alternating Movement: Within functional limits. Sitting Balance: Within functional limits. Head/Neck Control: Impaired. Decreased for neck rotation to right and extension while problems reported for past year. Endurance: Impaired. Reports that he needs to rest more than previously while [facility] PATIENT NAME: LORY JOHNSON [address] [facility] [address] MEDICAL REC #: [id number] [place] [address] ADMIT DATE: SERVICE DATE: 08/12/19 Occupational Therapy Assessment ATTENDING RHINA: Jami Scott finds self dozing more frequently. Mobility: Within functional limits. Hand Dominance: Right. Handicap Placard: Patient does not have a handicap placard. Road Sign Recognition/Rules of Driving: Not Tested. Determined driving cessation recommendation prior to completion of written test. Simulated Reaction - Braking Distance (Norms 60 ft): Reaction Distance: Average = 91 ft. Below Average. R foot only pedal operation method following instructions and practice prior to testing Family/Friend Interview/Survey: his indicated that she and family have been increasingly concerned about his cognitive decline even prior to the stroke but most certainly since then including with regards to safe independent operation of motor vehicle; she also said that their son recently moved from [facility] to [place], [place] but into home that is big enough for him to take his parents in to live there which he is encouraging them to consider given his dad's concerns; also indicated that while she continues to work 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, she has the ability to retire or reduce her hours when needed so she can provide increasing assist to Lory as needed; she also indicated that she has some chronic health issues including insulin dependent diabetes mellitus, cardiac issues Projected Adaptive Equipment Needs: N/A Psychosocial: Within normal limits Other/Additional Findings: Based on the various concerns indicated in this report, this therapist is recommending immediate driving cessation/detention which was discussed with Lroy and his who indicated understanding. Will provide physician with appropriate information regarding notifying [facility] of concern and recommendation. Interventions: Evaluation HIGH Complexity Self Care/Home Management: refer to details in this report Pain Reassessment: No pain at onset or during treatment, which does not warrant reassessment. Education: The patient's preferred learning method is: Explanation Barriers to Learning: Cognitive limitations Learning Needs: Safety. Functional activities/mobility. Communication/cognition. Education Provided: Safety issues and interventions. Supervision requirements. Driving. Safety. Home exercise/activity plan. Cognitive functioning. Audience: Patient and significant other. Mode: Explanation. Printed material provided. [facility] PATIENT NAME: LORY JOHNSON [address] [facility] [address] MEDICAL REC #: [id number] [place] [address] ADMIT DATE: SERVICE DATE: 08/12/19 Occupational Therapy Assessment ATTENDING PHY: Jami Scott Response: Applied knowledge. Verbalized understanding. Demonstrated skill. Needs reinforcement. ASSESSMENT Support Structure: Support structure is good. Family member willing to assist patient. Response to Evaluation: The session was tolerated well, as evidenced by: no complaints or concerns observed or reported while Lory appeared to understand recommendation PLAN Necessity: Patient does not require outpatient therapy in order to return to premorbid environment (or reside in new living environment). Patient does not require outpatient therapy in order to reduce Activities of Daily Living or Instrumental Activities of Daily Living assistance to a premorbid level. His will continue to provide for the transportation needs for both Lory and herself moving forward which she has been doing for some time now. The patient has been instructed to contact the clinic if any questions or problems should arise. Visit Number: Today's visit is number 1 Services: Total Billed: 132 minutes (Timed: 72, Untimed: 60) 72.00 Timed: [94813] ADL-HOME MANAGEMENT EA 15 MIN 60.00 Untimed: [[id number]] OT-EVALUATION HIGH COMPLEX Signed by: YOLIE MARTINEZ, OT/L, CDRS, CDI/PD 08/16/2019 08:18:24 [facility] PATIENT NAME: LORY JOHNSON [address] [facility] [address] MEDICAL REC #: [id number] [place] [address] ADMIT DATE: SERVICE DATE: 08/12/19 Occupational Therapy Assessment ATTENDING RHINA: Jami Scott Normal [facility] JORI Occupational Therapy Community Mobility and IADL Report Performance Skills Evaluation Date: 08/12/[address] D[address] Assessment: not completed Demographics: Age: 74Y Gender: Male Summary of Results: (see attached report(s) for details) Strengths: Lory continues to be able to complete all self care on his own as well as participates in various tasks at the house inside and out; he has an excellent driving record; he indicated that he has been comfortable with his doing the driving for the both of them; clinically he demonstrated functional vision including as required by [facility] for far acuity and visual christine, oculomotor skills, within average visual processing speed for visual perceptual screening for age, functional auditory attention skills and retrieval of more halfway information, functional physical skills other than as noted below. Lory's and family are aware of his deficits and willing to provide ongoing support with regards to any current and future needs. 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 while has options if needs to work less or retire prior to what she had planned; clinically he demonstrated being just under functional range for B contrast sensitivity, slow to respond to 70 degress on left for peripheral vision screen, NOT WITHIN RAW SCORE NORMAL FOR AGE ON VISUAL PERCEPTUAL SCREENING WHILE MISSED 15/36 WITH UNDERRESPONDING ON LEFT SIDE, NOT ORIENTED TO CORRECT YEAR OR MONTH, UNABLE TO COMPLETE TRAILMAKING B FOR ALTERNATING ATTENTION IN FUNCTIONAL RANGE WHILE MULTIPLE V/C'S NEEDED TO COMPLETE SAME, concerns related to problem solving ability if emergency including concerns related to using cellphone as confusion increasing, SEVERE IMPAIRMENT RANGE ON SHORT BLESSED COGNITIVE SCREEN WHILE DECREASED ORIENTATION/CONCENTRATION AND RECALL MEMORY, CLOCK DRAWING SCORE OF 4/7 (normal >5/7), decreased neck ROM for rotation to right and extension while reporting problems for some time, and MARKEDLY BELOW NORMAL FOR SIMULATED BRAKE REACTION DISTANCE AT 91 FEET (normal =60 feet). Recommendations: PATIENT SHOULD NOT DRIVE. Based on the various concerns indicated in this report, this therapist is recommending driving cessation/detention at this time especially given dementia diagnosis and symptoms. Alternative transportation. He will need to continue to rely on his to provide assist with his transportation needs moving forward which she appears to be ready and capable of doing. Instrumental Activities of Daily Living. Briefly discussed some behaviors [facility] PATIENT NAME: LORY JOHNSON [address] [place] MEDICAL REC #: [id number] [place] [address] ADMIT DATE: SERVICE DATE: 08/12/19 Occupational Therapy Assessment ATTENDING RHINA: Jami Scott that she should monitor for which would indicate more significant decline in his status which could mean that he needs increasing support. Talked about the future option for them to move in with their son in the future if needed also which she said is comforting to know but no plans to change anything in the near future. 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 Additional Comments: Based on the various concerns indicated in this report, this therapist is recommending that Lory is no longer able to return to safe and independent operation of motor vehicle and therefore driving cessation/detention necessary. This therapist will provide information to Lory's physician regarding notifying the [facility] of the concern and recommendation so that they can follow through with doing same. Both Lory and his indicated understanding of this recommendation while agreement with following same. Date: 08/16/19 Occupational Therapist/Professional Services Manager Podiatry Professor signature Please Note: The results and recommendations included in the Professional Services Manager Evaluation Report are based on the patient's performance during the period of the evaluation and should not be relied on as absolute predictors of future performance. The conclusions and recommendations in this report are based, in part, upon the medical information available at the time. If subsequent to the issuance of this report, the patient's medical status changes in such a manner that may compromise the patient's ability as a passenger coach driver, this report can longer be relied upon as valid. If the patient's physical and mental status remains the same as during the evaluation period, the recommendations in the report should be considered valid for 6 months. Beyond that time, a re - evaluation may be necessary. Signed by: YOLIE MARTINEZ, OT/L, CDRS, CDI/PD 08/16/2019 08:55:50 [facility] PATIENT NAME: LORY JOHNSON [address] [place] MEDICAL REC #: [id number] [place] [address] ADMIT DATE: SERVICE DATE: 08/12/19 Occupational Therapy Assessment ATTENDING RHINA: [facility] CNOV Office Visit (AGCARDWST) -------LORY JOHNSON ([id number]) 1945 M NFRDate Time Provider Department11/16/17 3:30 PM CASEY BRUSH AGCARDWST During your visit today, we recorded the following information about you: Pulse Blood pressure Weight Height 84/minute 169/91 91.2 kg 1.727 Leonora Brush MD 11/16/2017 5:16 PM SignedPERTINENT CARDIAC HISTORYASHD - IMI, PCI RCA (complex) 10/18HTNHLOSA - no evidenceObesityADHERENCE TO GUIDELINESACE-I or ARB for HF with prior LVEFANDlt;40 (NQF 0081) - N/AASA or Plavix for ASHD (NQF 0067) - metBeta shravan for ASHD with prior FL or prior LVEFANDlt;40 (NQF 0070) - metBeta shravan for HF with prior LVEFANDlt;40 (NQF 0083) - N/AACE-I or ARB for ASHD with DM or prior LVEFANDlt;40 (NQF 0066) - metStatin therapy for ASHD or FHL or DM - metBMI documented and plan if ANDgt;25 (NQF 0421) - lifestyle recommendation formTobacco use screening and referral (NQF 0028) - lifestyle recommendation formRecommendation for whole food, plant based diet - lifestyle recommendation formCLINICAL IMPRESSION/PLAN:Lory Johnson is doing reasonably well. Blood pressure is elevated today,but he reports this has been in better range at home. I've asked him to checkthis daily and contact me next week for possible medication adjustments.He was reminded that laboratory studies are due.He will be seeing Dr. 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 If there is increase in chest pain or shortness of breath, he has beenadvised to contact me.Written and verbal health teaching given to patient, patient verbalizesunderstanding and agrees with treatment plan.This note was generated using Pushfor voice recognition system, and there may besome incorrect words, spellings, and punctuation that were not noted inchecking the note before saving.DIAGNOSIS FOR VISIT:ASHDHypertensionHISTOR Y OF PRESENT ILLNESSLory Johnson is a 72-year-old gentleman with multiple cardiac riskfactors and established coronary disease, who is seen in follow-up. He isformerly a patient of Dr. Oh.He reports stable exercise tolerance. He's been doing some remodeling of hishome . He denies chest discomfort and has taken no nitroglycerin. He's had noorthopnea, edema, syncope, palpitations, TIAs, amaurosis or claudication .ALLERGIES:ALLERGIESAllergen Reactions- Beta-Shravan S [Oth*- Lipitor [Atorvastat* Intolerance- Viagra [Sildenafil]- Zetia [Ezetimibe] Mental Status Change- Zithromax [Azithrom* ItchingCURRENT OUTPATIENT MEDICATIONS:pravastatin (PRAVACHOL) 40 mg tablet Take 1 tablet by mouth daily at bedtime.metoprolol succinate ER (TOPROL XL) 25 mg 24 hr tablet Take 1 tablet by mouthonce daily.losartan (COZAAR) 100 mg tablet Take 1 tablet by mouth once daily.amLODIPine (NORVASC) 5 mg tablet Take 1 tablet by mouth once daily.nitroglycerin sublingual (NITROSTAT) 0.4 mg SL tablet Dissolve 1 tablet underthe tongue every 5 minutes as needed for Chest Pain.omega-3 fatty acids (FISH OIL CONCENTRATE) 1,000 mg cap Take 1 capsule by mouthonce daily.ASPIRIN 81 MG TAB Take one(1) tablet daily.DAILY MULTIVITAMIN TAB Take one(1) tablet daily.PAST MEDICAL HISTORYDiagnosis Date- 3-vessel CAD 11/03/2013- Actinic Keratoses (Premalignant AK's) 08/16/2013- Anemia- CAD S/P percutaneous coronary angioplasty 11/02/2013- Dementia without behavioral disturbance 05/15/2016- Elevated prostate specific antigen (PSA) 10/28/2007- Essential hypertension, benign 05/12/2006- GERD without esophagitis 11/15/2015 Sees Markell Anaya- Malignant neoplasm of prostate (HCC) 03/01/200802/09 PATH: Left Lobe: GS 7 ( 3+4) in 1/4 cores Right Lobe :GS 6 ( 3 +) in 3/5 cores External Beam Radiotherapy -- Dr. Rishabh Davidson, Renetta Landry follow- Mixed hyperlipidemia 12/03/2002- Presence of stent in right coronary artery 11/03/2013- Prostate cancer (HCC) 2007 EBRT- Rosacea 07/2003- SnoringPAST SURGICAL HISTORYProcedure Laterality Date- COLONOSCOP W/ OR W/O [facility] SPEC 02/2002 Colonoscopy- COLONOSCOP W/ OR W/O [facility] SPEC 09/14/07 normal- COLONOSCOP W/ OR W/O [facility] SPEC 07/23/2012 normal- EGD W/O OR W/BRUSH/WASH 02/2002 EGD- EGD W/O OR W/BRUSH/WASH 12/22/2002 hiatal hernia, distal esophagitis- EGD W/O OR W/BRUSH/WASH 08/03/15 EGD- EGD W/O OR W/BRUSH/WASH 11/15/15 EGD- HEART CATHETERIZATION 2013 Angioplasty, Promus stent to right coronary- REPAIR UMBILICAL TEX,5+Y/O,REDUC 2003FAMILY HISTORYProblem Relation Age of Onset- Prostate Cancer Father - Colon Cancer Father Dx in his 70s- Heart Father Had heart issues per patient- Heart Sister had bypass surgery (mid-40's)- Heart Mother Had heart issues per patient- Heart Brother had bypass surgerySocial History Marital status: Spouse name: Years of education: Number of children: 2Occupational HistoryOccupation Employer Commentretired-[employer] HUGH[employer]ocial History Main Topics Smoking status: Former Smoker Packs/day: 2.50 Years: 25.00 Types: Cigarettes Quit date: 10/05/1978 Smokeless status: Never Used Comment: quit 1978 Alcohol use: No Drug use: No Sexual activity: Yes Partners with: FemaleREVIEW OF SYSTEMS: General: No chills, fever, weight loss, night sweats.Respiratory: No productive cough. Cardiac: As noted above. GI: No melena.: No dysuria. Musculoskeletal: No myalgias.PHYSICAL EXAMINATION: S/he is alert and in no distress.VITAL SIGNS: BP 169/91 Pulse 84 Ht 5' 8ANDquot; (1.73m) Wt 201 lb 1.6 oz(91.2kg) BMI 30.58 kg/(m2).SHEENT: Skin is warm and dry. No xanthelasmas appreciated. Pharynx isbenign. There is no oral cyanosis. Neck: supple. No adenopathy or thyroidenlargement. Chest: Clear to percussion and auscultation. Trachea is midline. Air entry is equal. There is no chest wall tenderness. Cardiac: Regularrhythm. S1 and S2 are normal. PMI is nondisplaced. There is a soft systolicejection murmur. Carotids are brisk without bruits. JVP is less than 10 cm.Abdomen: Soft and nontender. There are no pulsatile masses or bruits. Noliver enlargement. Bowel sounds are active. Extremities: No edema. Pulsesare intact and symmetrical. No clubbing or cyanosis. No femoral bruits.Neurologic: Grossly normal motor and sensory. S/he is alert and oriented x4.Prior records were reviewed in detail.Echocardiogram showed normal global LV function. He was hospitalized for chestpain in 2013 and stress test showed evidence of previous infarct with mild tomoderate inferior ischemia. Angiography was performed with the finding of 95%mid right coronary. There was moderate disease in the left system. [facility]Most recent vascular studies showed mild atherosclerotic change with ectasia inthe mid abdominal aorta.Recent lab was reviewed. Renal function is normal. LDL was 95.EKG shows sinus rhythm. 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.Electronically Signed:Casey Brush MDFebruary 2017 4:01 [facility]:Crystal Eric MD 11/16/2017 4:00 PM SignedLIFESTYLE CHANGEA healthy lifestyle is the most important component of your overall treatmentplan. Please give serious thought to the following areas and commit to makinglong term changes.EAT A WHOLE FOOD, PLANT BASED DIETThe nutrition your body gets is more important than the medicine you take.What matters most is the overall way you eat. We encourage you to minimize theuse of animal products (which include dairy and all meats except fatty fish)and use whole, unprocessed plant foods to provide your protein, vitamins andother nutrients. We have a lot of information to share with you on this topic. We also hold Shared Medical Appointments, where you can come visit with in the company of other patients and spend over an hour talking aboutthe challenges of changing the way you eat. This is not a ANDquot;dietANDquot;.It is a way of life that you will keep with you.EXERCISE REGULARLYIt is not important to spend hours in the gym, lifting weights and perspiringheavily. A total of 2-3 hours per week of aerobic (causing you to bemoderately short of breath) exercise is sufficient to improve your health.Talk to us before you begin a new exercise program, if you have heart diseaseor experience shortness of breath or chest pain.REDUCE STRESSChronic emotional and physical stress leads to disease. Ways of reducingstress include meditation, visualization, prayer, yoga and other forms ofrelaxation therapy. Consistency is the jensen. Find a technique that works foryou and do it every day.CULTIVATE RELATIONSHIPSLoneliness and isolation have a major negative impact on health. Seek outothers who can love, care for and nurture you. Avoid hurtful relationships.MAINTAIN IDEAL BODY WEIGHTThe best way to do this is to do all the things above. Our bodies naturallyfind the right weight if we keep moving and feed ourselves the right food. Ifyour BMI is greater than 25, we strongly recommend a referral to a weightmanagement program. Please speak to us or your family physician aboutavailable programs.AVOID NICOTINE IN ALL FORMSThis includes all tobacco products, whether chewed, smoked, vaped, or rubbed onthe skin. Smoking cessation programs, which can make use of tobaccosubstitutes, medications to suppress cravings and behavior management, areavailable. Please contact your family physician about programs in your area.Referring Provider: HSAYE [place] [[id number]]Allergies As of Date: 11/16/2017 Noted Allergy ReactionBETA-SHRAVAN S [Other] 08/01/2005LIPITOR (ATORVASTATIN) 08/01/2005 5 - IntoleranceVIAGRA (SILDENAFIL) 08/01/2005ZETIA (EZETIMIBE) 01/06/2008 1 - Mental Status ChangeZITHROMAX (AZITHROMYCIN) 08/01/2005 9 - ItchingDate Reviewed: 11/16/2017Reviewed by: Shira Mensah) Annette - Fully AssessedReason for Visit: Recheck [92]Primary Visit Diagnosis:ASHD (arteriosclerotic heart disease) [I25.10] Other Visit Diagnosis:Essential hypertension [I10]Order(s):ECG B/O W INTERP (MED OFFICE) [ECG06] Order #: [id number] MAGNESIUM BLD [SQMG1] Order #: [id number] FUTUREPrescriptions as of 11/16/2017 Sig: PRAVASTATIN 40 MG TABLET Take 1 tablet by mouth daily * METOPROLOL SUCCINATE ER 25 MG* Take 1 tablet by mouth once d* LOSARTAN 100 MG TABLET Take 1 tablet by mouth once d* AMLODIPINE 5 MG TABLET Take 1 tablet by mouth once d* NITROGLYCERIN 0.4 MG SUBLINGU* Dissolve 1 tablet under the t* OMEGA-3 FATTY ACIDS 1,000 MG * Take 1 capsule by mouth once * * ASPIRIN 81 MG TABLET Take one(1) tablet daily. * DAILY MULTIVITAMIN TABLET Take one(1) tablet daily.Problem List As Of Date 11/16/2017 Noted Resolved Rosacea [L71.9] INVALID FOR* Priority: D Mixed hyperlipidemia [E78.2] INVALID FOR* Priority: A Umbilical hernia without mention of obstruction*INVALID FOR*02/01/2015 Essential hypertension, benign [I10] INVALID FOR* Priority: A Malignant neoplasm of prostate (HCC) [C61] INVALID FOR* Priority: B More... More... Fam hx-ischem heart disease [Z82.49] INVALID FOR* Priority: F More... Anemia [D64.9] INVALID FOR* Priority: B More... Actinic Keratoses (Premalignant AK's) [L57.0] INVALID FOR* Priority: D Neoplasm of uncertain behavior of skin: Right C*INVALID FOR*02/01/2015 Actinic skin damage [L57.8] INVALID FOR*02/01/2015 Viral warts, unspecified [B07.9] INVALID FOR*02/01/2015 Gama angioma [D18.01] INVALID FOR*02/01/2015 Other seborrheic keratosis [L82.1] INVALID FOR*02/01/2015 Solar lentigo [L81.4] INVALID FOR*02/01/2015 Epidermal cyst [L72.0] INVALID FOR*02/01/2015 CAD S/P percutaneous coronary angioplasty [I25.*INVALID FOR* Priority: A 3-vessel CAD [I25.10] INVALID FOR* Priority: A More... Presence of stent in right coronary artery [Z95*INVALID FOR* Priority: A Gastroesophageal reflux disease [K21.9] INVALID FOR*08/03/2015 GERD without esophagitis [K21.9] INVALID FOR* Priority: A More... Dementia without behavioral disturbance [F03.90]INVALID FOR* Priority: A More... Ex-smoker [Z87.891] INVALID FOR* Priority: C More... Well adult exam [Z00.00] INVALID FOR* Priority: E More... Abdominal aortic aneurysm (AAA) without rupture*INVALID FOR* Priority: A More... Lipoma of right forearm [D17.21] INVALID FOR* S/P right coronary artery (RCA) stent placement*INVALID FOR* Other instructions from your clinician: LIFESTYLE CHANGE A healthy lifestyle is the most important component of your overall treatment plan. Please give serious thought to the following areas and commit to making halfway changes. EAT A WHOLE FOOD, PLANT BASED DIET The nutrition your body gets is more important than the medicine you take. What matters most is the overall way you eat. We encourage you to minimize the use of animal products (which include dairy and all meats except fatty fish) and use whole, unprocessed plant foods to provide your protein, vitamins and other nutrients. We have a lot of information to share with you on this topic. We also hold Shared Medical Appointments, where you can come visit with Dr. Brush in the company of other patients and spend over an hour talking about the challenges of changing the way you eat. This is not a diet. It is a way of life that you will keep with you. EXERCISE REGULARLY It is not important to spend hours in the gym, lifting weights and perspiring heavily. A total of 2-3 hours per week of aerobic (causing you to be moderately short of breath) exercise is sufficient to improve your health. Talk to us before you begin a new exercise program, if you have heart disease or experience shortness of breath or chest pain. REDUCE STRESS Chronic emotional and physical stress leads to disease. Ways of reducing stress include meditation, visualization, prayer, yoga and other forms of relaxation therapy. Consistency is the jensen. Find a technique that works for you and do it every day. CULTIVATE RELATIONSHIPS Loneliness and isolation have a major negative impact on health. Seek out others who can love, care for and nurture you. Avoid hurtful relationships. MAINTAIN IDEAL BODY WEIGHT The best way to do this is to do all the things above. Our bodies naturally find the right weight if we keep moving and feed ourselves the right food. If your BMI is greater than 25, we strongly recommend a referral to a weight management program. Please speak to us or your family physician about available programs. AVOID NICOTINE IN ALL FORMS This includes all tobacco products, whether chewed, smoked, vaped, or rubbed on the skin. Smoking cessation programs, which can make use of tobacco substitutes, medications to suppress cravings and behavior management, are available. Please contact your family physician about programs in your area. Status:Closed by CASEY BRUSH MD on 11/16/17 [facility] PROGRESSon 11-16-2017 PROGRESS HNO ID: [id number] thor: Casey Moss: (none)Author Type: PhysicianType: Progress NotesFiled: 11/16/2017 5:16 PMNote Text:PERTINENT CARDIAC HISTORYASHD - IMI, PCI RCA (complex) 10/18HTNHLOSA - no evidenceObesityADHERENCE TO GUIDELINESACE-I or ARB for HF with prior LVEF<40 (NQF 0081) - N/AASA or Plavix for ASHD (NQF 0067) - metBeta shravan for ASHD with prior FL or prior LVEF<40 (NQF 0070) - metBeta shravan for HF with prior LVEF<40 (NQF 0083) - N/AACE-I or ARB for ASHD with DM or prior LVEF<40 (NQF 0066) - metStatin therapy for ASHD or FHL or DM - metBMI documented and plan if >25 (NQF 0421) - lifestyle recommendation formTobacco use screening and referral (NQ 0028) - lifestyle recommendationformRecommenda tion for whole food, plant based diet - lifestyle recommendationformCLINICAL IMPRESSION/PLAN:Lory Johnson is doing reasonably well. Blood pressure is elevatedtoday, but he reports this has been in better range at home. I've askedhim to check this daily and contact me next week for possible medicationadjustments.He was reminded that laboratory studies are due.He will be seeing Dr. Mendoza in the near future and follow-up of his smallabdominal aneurysm is planned.He will continue his current medications and I will see him in 8 months oras needed. If there is increase in chest pain or shortness of breath, hehas been advised to contact me.Written and verbal health teaching given to patient, patient verbalizesunderstanding and agrees with treatment plan.This note was generated using Pushfor voice recognition system, and theremay be some incorrect words, spellings, and punctuation that were notnoted in checking the note before saving.DIAGNOSIS FOR VISIT:ASHDHypertensionHISTOR Y OF PRESENT ILLNESSDarobel Johnson is a 72-year-old gentleman with multiple cardiac riskfactors and established coronary disease, who is seen in follow-up. He isformerly a patient of Dr. Oh.He reports stable exercise tolerance. He's been doing some remodeling ofhis home . He denies chest discomfort and has taken no nitroglycerin. He'shad no orthopnea, edema, syncope, palpitations, TIAs, amaurosis orclaudication .ALLERGIES:ALLERGIESAllergen Reactions- Beta-Shravan S [Oth*- Lipitor [Atorvastat* Intolerance- Viagra [Sildenafil]- Zetia [Ezetimibe] Mental Status Change- Zithromax [Azithrom* ItchingCURRENT OUTPATIENT MEDICATIONS:pravastatin (PRAVACHOL) 40 mg tablet Take 1 tablet by mouth daily atbedtime.metoprolol succinate ER (TOPROL XL) 25 mg 24 hr tablet Take 1 tablet bymouth once daily.losartan (COZAAR) 100 mg tablet Take 1 tablet by mouth once daily.amLODIPine (NORVASC) 5 mg tablet Take 1 tablet by mouth once daily.nitroglycerin sublingual (NITROSTAT) 0.4 mg SL tablet Dissolve 1 tabletunder the tongue every 5 minutes as needed for Chest Pain.omega-3 fatty acids (FISH OIL CONCENTRATE) 1,000 mg cap Take 1 capsule bymouth once daily.ASPIRIN 81 MG TAB Take one(1) tablet daily.DAILY MULTIVITAMIN TAB Take one(1) tablet daily.PAST MEDICAL HISTORYDiagnosis Date- 3-vessel CAD 11/03/2013- Actinic Keratoses (Premalignant AK's) 08/16/2013- Anemia- CAD S/P percutaneous coronary angioplasty 11/02/2013- Dementia without behavioral disturbance 05/15/2016- Elevated prostate specific antigen (PSA) 10/28/2007- Essential hypertension, benign 05/12/2006- GERD without esophagitis 11/15/2015 Sees Markell Anaya- Malignant neoplasm of prostate (HCC) 03/01/200802/09 PATH: Left Lobe: GS 7 ( 3+4) in 1/4 cores RightLobe : GS 6 ( 3 +) in 3/5 cores External Beam Radiotherapy -- Renetta Tavares follow- Mixed hyperlipidemia 12/03/2002- Presence of stent in right coronary artery 11/03/2013- Prostate cancer (HCC) 2007 EBRT- Rosacea 07/2003- SnoringPAST SURGICAL HISTORYProcedure Laterality Date- COLONOSCOP W/ OR W/O [facility] SPEC 02/2002 Colonoscopy- COLONOSCOP W/ OR W/O [facility] SPEC 09/14/07 normal- COLONOSCOP W/ OR W/O [facility] SPEC 07/23/2012 normal- EGD W/O OR W/BRUSH/WASH 02/2002 EGD- EGD W/O OR W/BRUSH/WASH 12/22/2002 hiatal hernia, distal esophagitis- EGD W/O OR W/BRUSH/WASH 08/03/15 EGD- EGD W/O OR W/BRUSH/WASH 11/15/15 EGD- HEART CATHETERIZATION 2013 Angioplasty, Promus stent to right coronary- REPAIR UMBILICAL TEX,5+Y/O,REDUC 2002FAMILY HISTORYProblem Relation Age of Onset- Prostate Cancer Father - Colon Cancer Father Dx in his 70s- Heart Father Had heart issues per patient- Heart Sister had bypass surgery (mid-40's)- Heart Mother Had heart issues per patient- Heart Brother had bypass surgerySocial History Marital status: Spouse name: Years of education: Number of children: 2Occupational 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 Respiratory: No productive cough. Cardiac: As noted above. GI: Nomelena. : No dysuria. Musculoskeletal: No myalgias.PHYSICAL EXAMINATION: S/he is alert and in no distress.VITAL SIGNS: BP 169/91 Pulse 84 Ht 5' 8 (1.73m) Wt 201 lb 1.6 oz(91.2kg) BMI 30.58 kg/(m2).SHEENT: Skin is warm and dry. No xanthelasmas appreciated. Pharynx isbenign. There is no oral cyanosis. Neck: supple. No adenopathy orthyroid enlargement. Chest: Clear to percussion and auscultation.Trachea is midline. Air entry is equal. There is no chest walltenderness. Cardiac: Regular rhythm. S1 and S2 are normal. PMI isnondisplaced. There is a soft systolic ejection murmur. Carotids arebrisk without bruits. JVP is less than 10 cm. Abdomen: Soft andnontender. There are no pulsatile masses or bruits. No liverenlargement. Bowel sounds are active. Extremities: No edema. Pulsesare intact and symmetrical. No clubbing or cyanosis. No femoral bruits.Neurologic: Grossly normal motor and sensory. S/he is alert and orientedx4.Prior records were reviewed in detail.Echocardiogram showed normal global LV function. He was hospitalized forchest pain in 2013 and stress test showed evidence of previous infarctwith mild to moderate inferior ischemia. Angiography was performed withthe finding of 95% mid right coronary. There was moderate disease in theleft system. He was transferred to [facility] where he had a stent.Most recent vascular studies showed mild atherosclerotic change withectasia in the mid abdominal aorta.Recent lab was reviewed. Renal function is normal. LDL was 95.EKG shows sinus rhythm. 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.Electronically Signed:Casey Brush MDFebruary 2017 4:01 [facility]:Adama Mendoza MD [facility] OBSOLETEon 08-24-2017 OBSOLETE Refill (AGCARDWST) -------LORY JOHNSON ([id number]) 1945 M NFRDate Time Provider Xpqrpdaoxa15/20/17 CASEY BRUSH During your visit today, we recorded the following information about you:Shira Garrison LPN 08/24/2017 10:12 AM SignedPatient has been identified by name and date of : YesRX INSTRUCTIONS:Patient aware RX will be sent to pharmacy. No need to notify patient.Derek Yost will be seeing you in November.Casey Brush MD 08/24/2017 10:29 AM SignedThe following approved medication requests have been transmitted electronically.Signed Prescriptions Disp Refills pravastatin (PRAVACHOL) 40 mg tablet 30 tablet 11 Sig: Take 1 tablet by mouth daily at bedtime. CHICA: No Authorizing Provider: CASEY BRUSH MDAllergies As of Date: 08/24/2017 Noted Allergy ReactionBETA-SHRAVAN S [Other] 08/01/2005LIPITOR (ATORVASTATIN) 08/01/2005 5 - IntoleranceVIAGRA (SILDENAFIL) 08/01/2005ZETIA (EZETIMIBE) 01/06/2008 1 - Mental Status ChangeZITHROMAX (AZITHROMYCIN) 08/01/2005 9 - ItchingDate Reviewed: 06/10/2017Reviewed by: Carlos Christianson - Fully AssessedReason for Visit: Refill Request [94]Primary Visit Diagnosis:ASHD (arteriosclerotic heart disease) [I25.10]Order(s):pravastatin (PRAVACHOL) 40 mg tabletTake 1 tablet by mouth daily at bedtime.Disp: 30 tabletRfl: 11 ALT/SGPT [SQALT] Order #: [id number] FUTURE CK CREATINE KINASE [SQCK] Order #: [id number] FUTUREPrescriptions as of 08/24/2017 Sig: PRAVASTATIN 40 MG TABLET Take 1 tablet by mouth daily * METOPROLOL SUCCINATE ER 25 MG* Take 1 tablet by mouth once d* LOSARTAN 100 MG TABLET Take 1 tablet by mouth once d* AMLODIPINE 5 MG TABLET Take 1 tablet by mouth once d* NITROGLYCERIN 0.4 MG SUBLINGU* Dissolve 1 tablet under the t* OMEGA-3 FATTY ACIDS 1,000 MG * Take 1 capsule by mouth once * * ASPIRIN 81 MG TABLET Take one(1) tablet daily. * DAILY MULTIVITAMIN TABLET Take one(1) tablet daily.Problem List As Of Date 08/24/2017 Noted Resolved Rosacea [L71.9] INVALID FOR* Priority: D Mixed hyperlipidemia [E78.2] INVALID FOR* Priority: A Umbilical hernia without mention of obstruction*INVALID FOR*02/01/2015 Essential hypertension, benign [I10] INVALID FOR* Priority: A Malignant neoplasm of prostate (HCC) [C61] INVALID FOR* Priority: B More... More... Fam hx-ischem heart disease [Z82.49] INVALID FOR* Priority: F More... Anemia [D64.9] INVALID FOR* Priority: B More... Actinic Keratoses (Premalignant AK's) [L57.0] INVALID FOR* Priority: D Neoplasm of uncertain behavior of skin: Right C*INVALID FOR*02/01/2015 Actinic skin damage [L57.8] INVALID FOR*02/01/2015 Viral warts, unspecified [B07.9] INVALID FOR*02/01/2015 Gama angioma [I78.1] INVALID FOR*02/01/2015 Other seborrheic keratosis [L82.1] INVALID FOR*02/01/2015 Solar lentigo [L81.4] INVALID FOR*02/01/2015 Epidermal cyst [L72.0] INVALID FOR*02/01/2015 CAD S/P percutaneous coronary angioplasty [I25.*INVALID FOR* Priority: A 3-vessel CAD [I25.10] INVALID FOR* Priority: A More... Presence of stent in right coronary artery [Z95*INVALID FOR* Priority: A Gastroesophageal reflux disease [K21.9] INVALID FOR*08/03/2015 GERD without esophagitis [K21.9] INVALID FOR* Priority: A More... Dementia without behavioral disturbance [F03.90]INVALID FOR* Priority: A More... Ex-smoker [Z87.891] INVALID FOR* Priority: C More... Well adult exam [Z00.00] INVALID FOR* Priority: E More... Abdominal aortic aneurysm (AAA) without rupture*INVALID FOR* Priority: A More... Lipoma of right forearm [D17.21] INVALID FOR* S/P right coronary artery (RCA) stent placement*INVALID FOR*Prescriptions ordered this encounter Disp Refills Start End PRAVASTATIN 40 MG TABLET 30 t* 11 08/24/2017 Route: ORAL Sig: Take 1 tablet by mouth daily at bedtime.Medications Discontinued During This Encounter pravastatin (PRAVACHOL) 40 mg tablet 30 t* 3 04/22/2017 08/24/2017 Sig: Take 1 tablet by mouth daily at bedtime. Disc: Reason for discontinue is not on file. Status:Closed by SHIRA GARRISON LPN on 08/24/17 Normal [facility] Vital Signs Date Time Vital Sign Value Performing Clinician Facility 06-23-2025 13:49-0400 Body height 182.[address] Adama Mendoza MD Work Phone: [facility] 06-23-2025 13:49-0400 Body mass index (BMI) [Ratio] 26.6 kg/m2 Dr. Adama Mendoza MD Work Phone: [facility] 06-23-2025 13:49-0400 Body weight 88.[address] Adama Mendoza MD Work Phone: [facility] 06-23-2025 13:49-0400 Diastolic blood pressure 70 mm[Hg] Dr. Adama jensen MD Work Phone: [facility] 06-23-2025 13:49-0400 Heart rate 57 /min Dr. Adama Mendoza MD Work Phone: [facility] 06-23-2025 13:49-0400 Respiratory rate 16 /min Dr. Adama Mendoza MD Work Phone: [facility] 06-23-2025 13:49-0400 Systolic blood pressure 117 mm[Hg] Dr. Adama diamond MD Work Phone: [facility] 04-11-2025 14:10-0400 Body height 171.5 cm Adama Mendoza MD Work Phone: [facility] 04-11-2025 14:10-0400 Body mass index (BMI) [Ratio] 31.14 kg/m2 Adama Mendoza MD Work Phone: [facility] 04-11-2025 14:10-0400 Body weight 91.54 kg Adama Mendoza MD Work Phone: [facility] 04-11-2025 14:10-0400 Diastolic blood pressure 80 mm[Hg] Adama Mendoza MD Work Phone: [facility] 04-11-2025 14:10-0400 Heart rate 64 /min Adama Mendoza MD Work Phone: [facility] 04-11-2025 14:10-0400 Respiratory rate 16 /min Adama Mendoza MD Work Phone: [facility] 04-11-2025 14:10-0400 Systolic blood pressure 136 mm[Hg] Adama Pappas Work Phone: [facility] 01-09-2025 08:41-0400 Body mass index (BMI) [Ratio] 29.95 kg/m2 Claude Cardenas APRN.EMBROIDERY ASSISTANT Work Phone: [facility] 01-09-2025 08:41-0400 Body weight 92 kg Claude Cardenas APRN.CNP Work Phone: [facility] 01-09-2025 08:41-0400 Diastolic blood pressure 66 mm[Hg] Claude Cardenas APRN.EMBROIDERY ASSISTANT Work Phone: [facility] 01-09-2025 08:41-0400 Heart rate 76 /min Claude Cardenas APRN.EMBROIDERY ASSISTANT Work Phone: [facility] 01-09-2025 08:41-0400 Systolic blood pressure 155 mm[Hg] Claude Cardenas APRN.EMBROIDERY ASSISTANT Work Phone: [facility] 12-05-2024 13:42-0500 Body mass index (BMI) [Ratio] 29.53 kg/m2 Shaye Kitchen Jr., MD Work Phone: [facility] 12-05-2024 13:42-0500 Body weight 90.72 kg Shaye Kitchen Jr., MD Work Phone: [facility] 12-05-2024 13:42-0500 Diastolic blood pressure 76 mm[Hg] Shaye wooten MD Work Phone: [facility] 12-05-2024 13:42-0500 Heart rate 55 /min Shaye Kitchen Jr., MD Work Phone: [facility] 12-05-2024 13:42-0500 SaO2% (BldA) [Mass fraction] 97 % Shaye Kitchen Jr., MD Work Phone: [facility] 12-05-2024 13:42-0500 Systolic blood pressure 128 mm[Hg] Shaye Rodgers MD Work Phone: [facility] 11-25-2024 12:37-0500 Body mass index (BMI) [Ratio] 29.53 kg/m2 Claude Cardenas APRN.EMBROIDERY ASSISTANT Work Phone: [facility] 11-25-2024 12:37-0500 Body weight 90.72 kg Claude Cardenas APRN.EMBROIDERY ASSISTANT Work Phone: [facility] 11-25-2024 12:37-0500 Diastolic blood pressure 67 mm[Hg] Claude Cardenas APRN.EMBROIDERY ASSISTANT Work Phone: [facility] 11-25-2024 12:37-0500 Heart rate 61 /min Claude Cardenas APRN.EMBROIDERY ASSISTANT Work Phone: [facility] 11-25-2024 12:37-0500 SaO2% (BldA) [Mass fraction] 98 % Claude Cardenas APRN.EMBROIDERY ASSISTANT Work Phone: [facility] 11-25-2024 12:37-0500 Systolic blood pressure 127 mm[Hg] Claude Cardenas APRN.EMBROIDERY ASSISTANT Work Phone: [facility] 11-23-2024 13:20-0500 Body mass index (BMI) [Ratio] 29.68 kg/m2 Danita Meraz PA-C Work Phone: [facility] 11-23-2024 13:20-0500 Body temperature 97.7 [degF] Danita Meraz PA-C Work Phone: [facility] 11-23-2024 13:20-0500 Body weight 91.17 kg Danita Meraz PA-C Work Phone: [facility] 11-23-2024 13:20-0500 Diastolic blood pressure 84 mm[Hg] Danita gordon PA-C Work Phone: [facility] 11-23-2024 13:20-0500 Heart rate 57 /min Danita Meraz PA-C Work Phone: [facility] 11-23-2024 13:20-0500 Respiratory rate 16 /min Danita Meraz PA-C Work Phone: [facility] 11-23-2024 13:20-0500 SaO2% (BldA) [Mass fraction] 97 % Danita Meraz PA-C Work Phone: [facility] 11-23-2024 13:20-0500 Systolic blood pressure 118 mm[Hg] Danita Meraz PA-C Work Phone: [facility] 11-10-2024 15:05-0500 Body height 175.3 cm Adama Mendoza MD Work Phone: [facility] 11-10-2024 15:05-0500 Body mass index (BMI) [Ratio] 28.94 kg/m2 Adama Mendoza MD Work Phone: [facility] 11-10-2024 15:05-0500 Body weight 88.91 kg Adama Mendoza MD Work Phone: [facility] 11-10-2024 15:05-0500 Diastolic blood pressure 78 mm[Hg] Adama Mendoza MD Work Phone: [facility] 11-10-2024 15:05-0500 Heart rate 57 /min Adama Mendoza MD Work Phone: [facility] 11-10-2024 15:05-0500 SaO2% (BldA) [Mass fraction] 97 % Adama Mendoza MD Work Phone: [facility] 11-10-2024 15:05-0500 Systolic blood pressure 110 mm[Hg] Adama Pappas Work Phone: [facility] 10-25-2024 17:00-0500 Body temperature 97.59 [degF] Gail Reddy RN Work Phone: [facility] 10-25-2024 17:00-0500 Diastolic blood pressure 62 mm[Hg] Gail Reddy RN Work Phone: [facility] 10-25-2024 17:00-0500 Heart rate 68 /min Gail Reddy RN Work Phone: [facility] 10-25-2024 17:00-0500 Respiratory rate 16 /min Gail Reddy RN Work Phone: [facility] 10-25-2024 17:00-0500 SaO2% (BldA) [Mass fraction] 97 % Gail Reddy RN Work Phone: [facility] 10-25-2024 17:00-0500 Systolic blood pressure 118 mm[Hg] Gail Reddy R N Work Phone: [facility] 10-24-2024 13:03-0500 Body mass index (BMI) [Ratio] 29.24 kg/m2 Adama Mendoza MD Work Phone: [facility] 10-24-2024 13:03-0500 Body temperature 97 [degF] Adama Mendoza MD Work Phone: [facility] 10-24-2024 13:03-0500 Body weight 89.81 kg Adama Mendoza MD Work Phone: [facility] 10-24-2024 13:03-0500 Diastolic blood pressure 78 mm[Hg] Adama Mendoza MD Work Phone: [facility] 10-24-2024 13:03-0500 Heart rate 62 /min Adama Mendoza MD Work Phone: [facility] 10-24-2024 13:03-0500 Respiratory rate 18 /min Adama Mendoza MD Work Phone: [facility] 10-24-2024 13:03-0500 SaO2% (BldA) [Mass fraction] 99 % Adama Mendoza MD Work Phone: [facility] 10-24-2024 13:03-0500 Systolic blood pressure 150 mm[Hg] Adama Pappas Work Phone: [facility] 10-15-2024 18:22-0500 SaO2% (BldA) [Mass fraction] 97 % ADAMA [facility] Comment on above: Order Comment: Specimen Type: ARTERIAL B LOOD SPECIMENOrdering Facility: [facility] Address: [address] [place], [place] [id number] Performed By: #### A LLBG ####ESMOND RESPIRATORYCLIA [id number] [id number] [place] [id number] 10-14-2024 15:48-0500 Diastolic blood pressure 60 mm[Hg] Margaret blanco [employer] FRONT DESK ATTENDANT.EMBROIDERY ASSISTANT Work Phone: [facility] Comment on above: provider notified 10-14-2024 15:48-0500 Systolic blood pressure 171 mm[Hg] Margaret baker [employer] FR[employer] DESK ATTENDANT.EMBROIDERY ASSISTANT Work Phone: [facility] Comment on above: provider notified 10-14-2024 12:21-0500 Body height 175.3 cm Gaudencio Doher DO Work Phone: [facility] 10-14-2024 12:21-0500 Body mass index (BMI) [Ratio] 29.98 kg/m2 Gaudencio Doher DO Work Phone: [facility] 10-14-2024 12:21-0500 Body weight 92.08 kg Gaudencio Doher DO Work Phone: [facility] 10-14-2024 12:21-0500 Diastolic blood pressure 68 mm[Hg] Gaudencio Doher DO Work Phone: [facility] 10-14-2024 12:21-0500 Heart rate 67 /min Gaudencio Doher DO Work Phone: [facility] 10-14-2024 12:21-0500 Systolic blood pressure 164 mm[Hg] Gaudencio Doher D O Work Phone: [facility] 10-11-2024 14:24-0500 Body mass index (BMI) [Ratio] 29.98 kg/m2 Adama Mendoza MD Work Phone: [facility] 10-11-2024 14:24-0500 Body weight 92.08 kg Adama Mendoza MD Work Phone: [facility] 10-11-2024 14:24-0500 Diastolic blood pressure 74 mm[Hg] Adama Mendoza MD Work Phone: [facility] 10-11-2024 14:24-0500 Heart rate 64 /min Adama Mendoza MD Work Phone: [facility] 10-11-2024 14:24-0500 Respiratory rate 16 /min Adama Mendoza MD Work Phone: [facility] 10-11-2024 14:24-0500 Systolic blood pressure 158 mm[Hg] Adama Pappas Work Phone: [facility] 09-20-2024 09:49-0500 Body mass index (BMI) [Ratio] 29.39 kg/m2 Adama Mendoza MD Work Phone: [facility] 09-20-2024 09:49-0500 Body temperature 97.81 [degF] Adama Mendoza MD Work Phone: [facility] 09-20-2024 09:49-0500 Body weight 90.27 kg Adama Mendoza MD Work Phone: [facility] 09-20-2024 09:49-0500 Diastolic blood pressure 74 mm[Hg] Adama Mendoza MD Work Phone: [facility] 09-20-2024 09:49-0500 Heart rate 60 /min Adama Mendoza MD Work Phone: [facility] 09-20-2024 09:49-0500 Respiratory rate 14 /min Adama Mendoza MD Work Phone: [facility] 09-20-2024 09:49-0500 Systolic blood pressure 112 mm[Hg] Adama Pappas Work Phone: [facility] 09-10-2024 09:02-0500 Body mass index (BMI) [Ratio] 29.68 kg/m2 Adama Mendoza MD Work Phone: [facility] 09-10-2024 09:02-0500 Body weight 91.17 kg Adama Mendoza MD Work Phone: [facility] 09-10-2024 09:02-0500 Diastolic blood pressure 75 mm[Hg] Adama Mendoza MD Work Phone: [facility] 09-10-2024 09:02-0500 Heart rate 66 /min Adama Mendoza MD Work Phone: [facility] 09-10-2024 09:02-0500 Respiratory rate 12 /min Adama Mendoza MD Work Phone: [facility] 09-10-2024 09:02-0500 Systolic blood pressure 123 mm[Hg] Adama Pappas Work Phone: [facility] 08-08-2024 14:09-0500 Body height 175.3 cm Rubén Gonzalez MD Work Phone: [facility] 08-08-2024 14:09-0500 Body mass index (BMI) [Ratio] 29.83 kg/m2 Rubén Gonzalez MD Work Phone: [facility] 08-08-2024 14:09-0500 Body temperature 97.7 [degF] Rubén Gonzalez MD Work Phone: [facility] 08-08-2024 14:09-0500 Body weight 91.63 kg Rubén Gonzalez MD Work Phone: [facility] 08-08-2024 14:09-0500 Diastolic blood pressure 74 mm[Hg] Rubén Gonzalez MD Work Phone: [facility] 08-08-2024 14:09-0500 Heart rate 60 /min Rubén Gonzalez MD Work Phone: [facility] 08-08-2024 14:09-0500 SaO2% (BldA) [Mass fraction] 97 % Rubén Gonzalez MD Work Phone: [facility] 08-08-2024 14:09-0500 Systolic blood pressure 126 mm[Hg] Rubén Pappas Work Phone: [facility] 07-21-2024 11:47-0400 Body mass index (BMI) [Ratio] 29.83 kg/m2 Danita Meraz PA-C Work Phone: [facility] 07-21-2024 11:47-0400 Body temperature 97.9 [degF] Danita Meraz PA-C Work Phone: [facility] 07-21-2024 11:47-0400 Body weight 91.63 kg Danita Meraz PA-C Work Phone: [facility] 07-21-2024 11:47-0400 Diastolic blood pressure 82 mm[Hg] Danita gordon PA-C Work Phone: [facility] 07-21-2024 11:47-0400 Heart rate 59 /min Danita Meraz PA-C Work Phone: [facility] 07-21-2024 11:47-0400 Respiratory rate 16 /min Danitaana lilia Meraz PA-C Work Phone: [facility] 07-21-2024 11:47-0400 SaO2% (BldA) [Mass fraction] 97 % Danita Meraz PA-C Work Phone: [facility] 07-21-2024 11:47-0400 Systolic blood pressure 122 mm[Hg] Danita Meraz PA-C Work Phone: [facility] 06-28-2024 13:14-0400 Body height 175.3 cm Amanda Bogner PA-C Work Phone: [facility] 06-28-2024 13:14-0400 Body mass index (BMI) [Ratio] 30.27 kg/m2 Amanda Bogner PA-C Work Phone: [facility] 06-28-2024 13:14-0400 Body weight 92.99 kg Amanda Bogner PA-C Work Phone: [facility] 06-28-2024 13:14-0400 Diastolic blood pressure 62 mm[Hg] Amanda Glennyn er PA-C Work Phone: [facility] 06-28-2024 13:14-0400 Heart rate 64 /min Amanda Bogner PA-C Work Phone: [facility] 06-28-2024 13:14-0400 Respiratory rate 14 /min Amanda Bogner PA-C Work Phone: [facility] 06-28-2024 13:14-0400 SaO2% (BldA) [Mass fraction] 96 % Amadna Bogner PA-C Work Phone: [facility] 06-28-2024 13:14-0400 Systolic blood pressure 122 mm[Hg] Amanda Murrietane r PA-C Work Phone: [facility] 06-22-2024 10:56-0400 Body mass index (BMI) [Ratio] 30.18 kg/m2 Jelena Tannhof [employer] FR[employer] DESK ATTENDANT.EMBROIDERY ASSISTANT Work Phone: [facility] 06-22-2024 10:56-0400 Body weight 92.7 kg Jelena Tannhof [employer] FR[employer] DESK ATTENDANT.EMBROIDERY ASSISTANT Work Phone: [facility] 06-22-2024 10:56-0400 Diastolic blood pressure 79 mm[Hg] Jelena Tannhof [employer] FRONT DESK ATTENDANT.EMBROIDERY ASSISTANT Work Phone: [facility] 06-22-2024 10:56-0400 Heart rate 62 /min Jelena Tannhof [employer] FR[employer] DESK ATTENDANT.EMBROIDERY ASSISTANT Work Phone: [facility] 06-22-2024 10:56-0400 Respiratory rate 16 /min Jelenanoel Perezhof [employer] FR[employer] DESK ATTENDANT.EMBROIDERY ASSISTANT Work Phone: [facility] 06-22-2024 10:56-0400 SaO2% (BldA) [Mass fraction] 96 % Jelenanoel Perezhof [employer] FRONT DESK ATTENDANT.EMBROIDERY ASSISTANT Work Phone: [facility] 06-22-2024 10:56-0400 Systolic blood pressure 144 mm[Hg] Jelena Tannhof MOT[employer] FRONT DESK ATTENDANT.EMBROIDERY ASSISTANT Work Phone: [facility] 06-15-2024 11:04-0400 Body mass index (BMI) [Ratio] 30.86 kg/m2 Adama Mendoza MD Work Phone: [facility] 06-15-2024 11:04-0400 Body temperature 98.2 [degF] Adama Mendoza MD Work Phone: [facility] 06-15-2024 11:04-0400 Body weight 94.8 kg Adama Mendoza MD Work Phone: [facility] 06-15-2024 11:04-0400 Diastolic blood pressure 62 mm[Hg] Adama Mendoza MD Work Phone: [facility] 06-15-2024 11:04-0400 Heart rate 73 /min Adama Mendoza MD Work Phone: [facility] 06-15-2024 11:04-0400 Respiratory rate 14 /min Adama Mendoza MD Work Phone: [facility] 06-15-2024 11:04-0400 SaO2% (BldA) [Mass fraction] 97 % Adama Mendoza MD Work Phone: [facility] 06-15-2024 11:04-0400 Systolic blood pressure 106 mm[Hg] Adama Pappas Work Phone: [facility] 06-15-2024 07:10-0400 Body mass index (BMI) [Ratio] 30.86 kg/m2 Jelena Tannhof [employer] FR[employer] DESK ATTENDANT.EMBROIDERY ASSISTANT Work Phone: [facility] 06-15-2024 07:10-0400 Body weight 94.8 kg Jelena Tannhof [employer] FRONT DESK ATTENDANT.EMBROIDERY ASSISTANT Work Phone: [facility] 06-15-2024 07:10-0400 Diastolic blood pressure 70 mm[Hg] Jelena Tannhof [employer] FRONT DESK ATTENDANT.EMBROIDERY ASSISTANT Work Phone: [facility] 06-15-2024 07:10-0400 Heart rate 75 /min Jelena Tannhof [employer] FR[employer] DESK ATTENDANT.EMBROIDERY ASSISTANT Work Phone: [facility] 06-15-2024 07:10-0400 Respiratory rate 16 /min Jelena Tannhof [employer] FR[employer] DESK ATTENDANT.EMBROIDERY ASSISTANT Work Phone: [facility] 06-15-2024 07:10-0400 SaO2% (BldA) [Mass fraction] 97 % Jelena Tannhof [employer] FR[employer] DESK ATTENDANT.EMBROIDERY ASSISTANT Work Phone: [facility] 06-15-2024 07:10-0400 Systolic blood pressure 118 mm[Hg] Jelena Tannhof [employer] FR[employer] DESK ATTENDANT.EMBROIDERY ASSISTANT Work Phone: [facility] 05-12-2024 14:17-0400 Body mass index (BMI) [Ratio] 31.01 kg/m2 Stephany Suarez MD Work Phone: [facility] 05-12-2024 14:17-0400 Body weight 95.25 kg Stephany Suarez MD Work Phone: [facility] 05-12-2024 14:17-0400 Diastolic blood pressure 60 mm[Hg] Stephany Suarez MD Work Phone: [facility] 05-12-2024 14:17-0400 Heart rate 57 /min Stephany Suarez MD Work Phone: [facility] 05-12-2024 14:17-0400 Respiratory rate 14 /min Stephany Suarez MD Work Phone: [facility] 05-12-2024 14:17-0400 SaO2% (BldA) [Mass fraction] 95 % Stephany Suarez MD Work Phone: [facility] 05-12-2024 14:17-0400 Systolic blood pressure 118 mm[Hg] Stephany Suarez MD Work Phone: [facility] 04-11-2024 13:43-0400 Body height 175.3 cm Adama Mendoza MD Work Phone: [facility] 04-11-2024 13:43-0400 Body mass index (BMI) [Ratio] 31.45 kg/m2 Adama Mendoza MD Work Phone: [facility] 04-11-2024 13:43-0400 Body weight 96.62 kg Adama Mendoza MD Work Phone: [facility] 04-11-2024 13:43-0400 Diastolic blood pressure 72 mm[Hg] Adama Mendoza MD Work Phone: [facility] 04-11-2024 13:43-0400 Heart rate 60 /min Adama Mendoza MD Work Phone: [facility] 04-11-2024 13:43-0400 Respiratory rate 18 /min Adama Mendoza MD Work Phone: [facility] 04-11-2024 13:43-0400 Systolic blood pressure 120 mm[Hg] Adama Pappas Work Phone: [facility] 03-04-2024 13:47-0400 Body mass index (BMI) [Ratio] 31.4 kg/m2 Shaye Kitchen Jr., MD Work Phone: [facility] 03-04-2024 13:47-0400 Body weight 96.44 kg Shaye Kitchen Jr., MD Work Phone: [facility] 03-04-2024 13:47-0400 Diastolic blood pressure 84 mm[Hg] Shaye wooten MD Work Phone: [facility] 03-04-2024 13:47-0400 Heart rate 58 /min Shaye Kitchen Jr., MD Work Phone: [facility] 03-04-2024 13:47-0400 Respiratory rate 16 /min Shaye Kitchen Jr., MD Work Phone: [facility] 03-04-2024 13:47-0400 SaO2% (BldA) [Mass fraction] 96 % Shaye Kitchen Jr., MD Work Phone: [facility] 03-04-2024 13:47-0400 Systolic blood pressure 132 mm[Hg] Shaye Rodgers MD Work Phone: [facility] 03-04-2024 11:49-0400 Body mass index (BMI) [Ratio] 31.45 kg/m2 Danita Meraz PA-C Work Phone: [facility] 03-04-2024 11:49-0400 Body weight 96.62 kg Danita CHISHOLM-C Work Phone: [facility] 03-04-2024 11:49-0400 Diastolic blood pressure 69 mm[Hg] Danita gordon PA-C Work Phone: [facility] 03-04-2024 11:49-0400 Heart rate 58 /min Danita Meraz PA-C Work Phone: [facility] 03-04-2024 11:49-0400 Respiratory rate 20 /min Danita Meraz PA-C Work Phone: [facility] 03-04-2024 11:49-0400 SaO2% (BldA) [Mass fraction] 97 % Danita Meraz PA-C Work Phone: [facility] 03-04-2024 11:49-0400 Systolic blood pressure 135 mm[Hg] Danita Meraz PA-C Work Phone: [facility] 01-22-2024 10:02-0400 Body height 175.3 cm Jessica Miramontes PA-C Work Phone: [facility] 01-22-2024 10:02-0400 Body weight 97.05 kg Jessicabarbara Dodsoner PA-C Work Phone: [facility] 01-22-2024 10:02-0400 Diastolic blood pressure 78 mm[Hg] Jessica Miramontes PA-C Work Phone: [facility] 01-22-2024 10:02-0400 Heart rate 62 /min Jessica Miramontes PA-C Work Phone: [facility] 01-22-2024 10:02-0400 SaO2% (BldA) [Mass fraction] 96 % Jessicabarbara Dodsonprudence PA-C Work Phone: [facility] 01-22-2024 10:02-0400 Systolic blood pressure 144 mm[Hg] Jessica prudence PA-C Work Phone: [facility] 12-15-2023 09:58-0400 Body height 171.4 cm Pulm Wstr Work Phone: [facility] 12-15-2023 09:58-0400 Body weight 95.71 kg Pulm Wstr Work Phone: [facility] 12-15-2023 09:58-0400 Heart rate 57 /min Pulm Wstr Work Phone: [facility] 12-15-2023 09:58-0400 Respiratory rate 14 /min Pulm Wstr Work Phone: [facility] 12-15-2023 09:58-0400 SaO2% (BldA) [Mass fraction] 98 % Pulm Wstr Work Phone: [facility] 11-20-2023 14:18-0500 Body weight 94.17 kg Shaye Kitchen Jr., MD Work Phone: [facility] 11-20-2023 14:18-0500 Diastolic blood pressure 60 mm[Hg] Shaye wooten MD Work Phone: [facility] 11-20-2023 14:18-0500 Heart rate 58 /min Shaye Kitchen Jr., MD Work Phone: [facility] 11-20-2023 14:18-0500 Respiratory rate 16 /min Shaye Kitchen Jr., MD Work Phone: [facility] 11-20-2023 14:18-0500 SaO2% (BldA) [Mass fraction] 96 % Shaye Kitchen Jr., MD Work Phone: [facility] 11-20-2023 14:18-0500 Systolic blood pressure 116 mm[Hg] Shaye Rodgers MD Work Phone: [facility] 09-26-2023 12:00-0500 Respiratory rate 18 /min [facility] 09-26-2023 11:03-0500 Body temperature 97.3 [degF] [facility] 09-26-2023 11:03-0500 Diastolic blood pressure 77 mm[Hg] [facility] 09-26-2023 11:03-0500 Heart rate 57 /min [facility] 09-26-2023 11:03-0500 SaO2% (BldA) [Mass fraction] 98 % [facility] 09-26-2023 11:03-0500 Systolic blood pressure 153 mm[Hg] [facility] 09-26-2023 10:59-0500 Body height 173 cm [facility] 09-26-2023 10:59-0500 Body mass index (BMI) [Ratio] 32.5 kg/m2 [facility] 09-26-2023 10:59-0500 Body weight 97.4 kg [facility] 07-14-2023 14:49-0400 Body temperature 97.7 [degF] Adama Mendoza MD Work Phone: [facility] 07-14-2023 14:49-0400 Body weight 94.35 kg Adama Mendoza MD Work Phone: [facility] 07-14-2023 14:49-0400 Diastolic blood pressure 68 mm[Hg] Adama Mendoza MD Work Phone: [facility] 07-14-2023 14:49-0400 Heart rate 58 /min Adama Mendoza MD Work Phone: [facility] 07-14-2023 14:49-0400 Respiratory rate 18 /min Adama Mendoza MD Work Phone: [facility] 07-14-2023 14:49-0400 SaO2% (BldA) [Mass fraction] 98 % Adama Mendoza MD Work Phone: [facility] 07-14-2023 14:49-0400 Systolic blood pressure 122 mm[Hg] Adama Pappas Work Phone: [facility] 06-23-2023 08:44-0400 Body weight 97.07 kg Adama Mendoza MD Work Phone: [facility] 06-23-2023 08:44-0400 Diastolic blood pressure 82 mm[Hg] Adama Mendoza MD Work Phone: [facility] 06-23-2023 08:44-0400 Heart rate 66 /min Adama Mendoza MD Work Phone: [facility] 06-23-2023 08:44-0400 Respiratory rate 16 /min Adama Mendoza MD Work Phone: [facility] 06-23-2023 08:44-0400 SaO2% (BldA) [Mass fraction] 94 % Adama Mendoza MD Work Phone: [facility] 06-23-2023 08:44-0400 Systolic blood pressure 124 mm[Hg] Adama Pappas Work Phone: [facility] 06-17-2023 15:51-0400 Diastolic blood pressure 76 mm[Hg] [facility] 06-17-2023 15:51-0400 Heart rate 73 /min [facility] 06-17-2023 15:51-0400 Respiratory rate 19 /min [facility] 06-17-2023 15:51-0400 SaO2% (BldA) [Mass fraction] 97 % [facility] 06-17-2023 15:51-0400 Systolic blood pressure 148 mm[Hg] [facility] 06-17-2023 15:40-0400 Body temperature 100.2 [degF] [facility] 06-17-2023 13:30-0400 Body height 172.72 cm [facility] 04-30-2023 15:01-0400 Body temperature 97.5 [degF] Jeff Crouch MD Work Phone: [facility] 04-30-2023 15:01-0400 Body weight 98.16 kg Jeff Crouch MD Work Phone: [facility] 04-30-2023 15:01-0400 Diastolic blood pressure 70 mm[Hg] Jeff Crouch MD Work Phone: [facility] 04-30-2023 15:01-0400 Heart rate 58 /min Jeff Crouch MD Work Phone: [facility] 04-30-2023 15:01-0400 Respiratory rate 16 /min Jeff Crouch MD Work Phone: [facility] 04-30-2023 15:01-0400 SaO2% (BldA) [Mass fraction] 94 % Jeff Crouch MD Work Phone: [facility] 04-30-2023 15:01-0400 Systolic blood pressure 126 mm[Hg] Jeff Crouch MD Work Phone: [facility] 04-14-2023 11:50-0400 Body height 171.5 cm Adama Mendoza MD Work Phone: [facility] 04-14-2023 11:50-0400 Body weight 99.34 kg Adama Mendoza MD Work Phone: [facility] 04-14-2023 11:50-0400 Diastolic blood pressure 74 mm[Hg] Adama Mendoza MD Work Phone: [facility] 04-14-2023 11:50-0400 Heart rate 68 /min Adama Mendoza MD Work Phone: [facility] 04-14-2023 11:50-0400 Respiratory rate 16 /min Adama Mendoza MD Work Phone: [facility] 04-14-2023 11:50-0400 Systolic blood pressure 132 mm[Hg] Adama Pappas Work Phone: [facility] 04-06-2023 11:57-0400 Body temperature 98.29 [degF] Danita Meraz PA-C Work Phone: [facility] 04-06-2023 11:57-0400 Body weight 98.88 kg Danita Meraz PA-C Work Phone: [facility] 04-06-2023 11:57-0400 Diastolic blood pressure 86 mm[Hg] Danita gordon PA-C Work Phone: [facility] 04-06-2023 11:57-0400 Heart rate 58 /min Danita Meraz PA-C Work Phone: [facility] 04-06-2023 11:57-0400 Respiratory rate 16 /min Danita Meraz PA-C Work Phone: [facility] 04-06-2023 11:57-0400 Systolic blood pressure 118 mm[Hg] Danita Meraz PA-C Work Phone: [facility] 10-09-2022 11:17-0500 Diastolic blood pressure 78 mm[Hg] Adama Mendoza MD Work Phone: [facility] 10-09-2022 11:17-0500 Systolic blood pressure 142 mm[Hg] Adama Pappas Work Phone: [facility] 10-09-2022 11:03-0500 Body weight 97.98 kg Adama Mendoza MD Work Phone: [facility] 10-09-2022 11:03-0500 Heart rate 64 /min Adama Mendoza MD Work Phone: [facility] 10-09-2022 11:03-0500 Respiratory rate 16 /min Adama Mendoza MD Work Phone: [facility] 07-24-2022 21:41-0400 Diastolic blood pressure 80 mm[Hg] [facility] Work Phone: 07-24-2022 21:41-0400 Heart rate 73 /min [facility] Work Phone: 07-24-2022 21:41-0400 Respiratory rate 15 /min [facility] Work Phone: 07-24-2022 21:41-0400 SaO2% (BldA) [Mass fraction] 93 % [facility] Work Phone: 07-24-2022 21:41-0400 Systolic blood pressure 152 mm[Hg] [facility] Work Phone: 07-24-2022 21:15-0400 Inhaled oxygen flow rate 0 L/min [facility] Work Phone: 07-24-2022 20:46-0400 Inhaled oxygen concentration 100 % [facility] Work Phone: 07-24-2022 20:45-0400 Body temperature 98.8 [degF] [facility] Work Phone: 07-24-2022 16:08-0400 Body height 172.72 cm [facility] Work Phone: 07-24-2022 16:08-0400 Body mass index (BMI) [Ratio] 35.4 kg/m2 [facility] Work Phone: 07-24-2022 16:08-0400 Body weight 105.8 kg [facility] Work Phone: 04-04-2022 14:35-0400 Body height 170.2 cm Eulalia Odonnell MD Work Phone: [facility] 04-04-2022 14:35-0400 Body temperature 97.9 [degF] Eulalia Odonnell MD Work Phone: [facility] 04-04-2022 14:35-0400 Body weight 100.25 kg Eulalia Odonnell MD Work Phone: [facility] 04-04-2022 14:35-0400 Diastolic blood pressure 72 mm[Hg] Eulalia Odonnell MD Work Phone: [facility] 04-04-2022 14:35-0400 Heart rate 75 /min Eulalia Odonnell MD Work Phone: [facility] 04-04-2022 14:35-0400 SaO2% (BldA) [Mass fraction] 94 % Eulalia Odonnell MD Work Phone: [facility] 04-04-2022 14:35-0400 Systolic blood pressure 150 mm[Hg] Eulalia Odonnell MD Work Phone: [facility] 04-02-2022 07:03-0400 Body temperature 97.81 [degF] Danita Meraz PA-C Work Phone: [facility] 04-02-2022 07:03-0400 Body weight 100.7 kg Danita Meraz PA-C Work Phone: [facility] 04-02-2022 07:03-0400 Diastolic blood pressure 76 mm[Hg] Danita gordon PA-C Work Phone: [facility] 04-02-2022 07:03-0400 Heart rate 60 /min Danita Meraz PA-C Work Phone: [facility] 04-02-2022 07:03-0400 Respiratory rate 16 /min Dnaita Meraz PA-C Work Phone: [facility] 04-02-2022 07:03-0400 Systolic blood pressure 138 mm[Hg] Danita Meraz PA-C Work Phone: [facility] 03-26-2022 15:27-0400 Body height 170.2 cm Adama Mendoza MD Work Phone: [facility] 03-26-2022 15:27-0400 Body weight 101.15 kg Adama Mendoza MD Work Phone: [facility] 03-26-2022 15:27-0400 Diastolic blood pressure 80 mm[Hg] Adama Mendoza MD Work Phone: [facility] 03-26-2022 15:27-0400 Heart rate 64 /min Adama Mendoza MD Work Phone: [facility] 03-26-2022 15:27-0400 Respiratory rate 16 /min Adama Mendoza MD Work Phone: [facility] 03-26-2022 15:27-0400 Systolic blood pressure 140 mm[Hg] Adama Pappas Work Phone: [facility] Encounters Encounter Date Encounter Type Care Provider Facility Start: 07-17-2025 End: 07-17-2025 ambulatory ADAMA MENDOZA Facility:[facility] Start: 06-23-2025 End: 06-23-[address] Cayden Morton MD -[facility] Work Phone: Start: 06-23-2025 End: 06-23-2025 ambulatory Adama Mendoza [place] [place]: 06-12-2025 End: 06-12-2025 Refill Adama Mendoza MD Work Phone: [facility] Comment on above: Refill Request Start: 06-02-2025 End: 06-02-2025 Patient encounter procedure Dandy Faith Work Phone: Podiatry Comment on above: Onychomycosis (Prima ry Dx); Pain in toe of left foot; Pain in toe of right foot; Diminished pulses in lower extremity Start: 06-02-2025 End: 06-02-2025 ambulatory DANDY FAITH Facility:[facility] Start: 06-01-2025 End: 06-01-2025 ambulatory Ayesha Rosas MA [facility] Start: 06-01-2025 End: 06-01-2025 Patient encounter procedure Ayesha Grimaldo [facility] Comment on above: Population Health Na vigation Outreach ([place]/ACO ) Start: 05-22-2025 End: 05-22-2025 Refill Adama Mendoza MD Work Phone: [facility] Comment on above: Refill Request Start: 05-16-2025 End: 05-16-2025 Refill Adama Mendoza MD Work Phone: [facility] Comment on above: Refill Request Start: 04-19-2025 End: 04-20-2025 Follow-up encounter Adama Mendoza MD Work Phone: [facility] Comment on above: Results Start: 04-13-2025 End: 04-13-2025 ambulatory ADAMA MENDOZA Facility:[facility] Start: 04-12-2025 End: 06-12-2025 Refill Adama Mendoza MD Work Phone: [facility] [place] Comment on above: Refill Request Results Start: 04-11-2025 End: 04-11-2025 ambulatory ADAMA MENDOZA Facility:[facility] Start: 04-11-2025 End: 04-11-2025 Patient encounter procedure Adama Mendoza MD Work Phone: [facility] [place] Comment on above: Medicare annual well ness visit, subsequent (Primary Dx); Essential hypertension, benign; Mixed hyperlipidemia; Elevated fasting blood sugar; GERD without esophagitis; Pulmonary emphysema, unspecified emphysema type (HCC); CAD S/P percutaneous coronary angioplasty; Stage 3a chronic kidney disease (HCC); History of CVA (cerebrovascular accident); Dementia with behavioral disturbance (HCC); 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); Anemia, unspecified type; NAIN (obstructive sleep apnea); History of prostate cancer; Advance directive discussed with patient; Vitamin B6 deficiency; Zinc deficiency; Medication management; Hypomagnesemia Start: 04-11-2025 End: 04-11-2025 ambulatory ADAMA MENDOZA Facility:[facility] Start: 03-29-2025 End: 03-29-2025 Refill Adama Mendoza MD Work Phone: [facility] [place] Comment on above: Refill Request Start: 03-16-2025 End: 03-16-2025 Telephone encounter Licha Vázquez [address] Comment on above: Patient Question Start: 03-15-2025 End: 03-15-2025 Refill Adama Mendoza MD Work Phone: [facility] Comment on above: Refill Request Start: 02-24-2025 End: 02-24-2025 ambulatory [facility] Facility:[facility] Start: 01-24-2025 End: 01-24-2025 Refill Adama Mendoza MD Work Phone: [facility] [place] Comment on above: Refill Request Start: 01-16-2025 End: 01-16-2025 Refill Adama Mendoza MD Work Phone: [facility] [place] Comment on above: Refill Request Start: 01-09-2025 End: 01-09-2025 Follow-up encounter Claude Cardenas APRN.CNP Work Phone: [facility] [place] Start: 01-09-2025 End: 01-09-2025 Subsequent hospital visit by physician [facility] Work Phone: Radiology Comment on above: Fall, initial encoun ter [W19.XXXA] Start: 01-09-2025 End: 01-09-2025 Patient encounter procedure Claude Cardenas APRN.CNP Work Phone: [facility] [place] Comment on above: Fall, initial encoun ter (Primary Dx); Right arm pain; Acute pain of right shoulder; Right hip pain Start: 01-09-2025 End: 01-09-2025 ambulatory ADAMA MENDOZA Facility:[facility] Start: 12-28-2024 End: 12-28-2024 Refill Adama Mendoza MD Work Phone: [facility] Comment on above: Refill Request Start: 12-19-2024 End: 12-19-2024 Refill Adama Mendoza MD Work Phone: [facility] Comment on above: Refill Request Start: 12-14-2024 End: 12-14-2024 Refill Adama Mendoza MD Work Phone: [facility] Comment on above: Refill Request Start: 12-05-2024 End: 12-05-2024 Patient encounter procedure Shaye Kitchen MD Work Phone: Neurology Comment on above: Severe dementia, uns pecified dementia type, unspecified whether behavioral, psychotic, or mood disturbance or anxiety (HCC) (Primary Dx); History of CVA (cerebrovascular accident); Abnormal EEG; NAIN (obstructive sleep apnea) Start: 12-05-2024 End: 12-05-2024 Telephone encounter Shaye Kitchen MD Work Phone: Neurology Comment on above: Medication Update Refill Request Start: 12-05-2024 End: 12-05-2024 ambulatory ADAMA MENDOZA Facility:[facility] Start: 11-25-2024 End: 11-25-2024 Patient encounter procedure Claude Cardenas APRN.CNP Work Phone: [facility] Comment on above: Pressure sensation i n both ears (Primary Dx) Start: 11-25-2024 End: 11-25-2024 ambulatory [facility] Facility:[facility] Start: 11-25-2024 End: 11-25-2024 [facility] Facility:[facility] Start: 11-25-2024 End: 11-25-2024 Patient encounter procedure Dandy Faith Work Phone: Podiatry Comment on above: Onychomycosis (Prima ry Dx); Pain in toe of left foot; Pain in toe of right foot; Left foot pain Start: 11-23-2024 End: 11-23-2024 Patient encounter procedure Danita Meraz PA-C Work Phone: [facility] Comment on above: URI, acute (Primary Dx) Start: 11-23-2024 End: 11-23-2024 ambulatory ADAMA [facility] Facility:[facility] Start: 11-18-2024 End: 11-21-2024 ambulatory Perla Cummings RN [employer] Comment on above: Initial enrollment o mckay for Chronic Disease Management Start: 11-17-2024 End: 11-17-2024 Refill Adama Mendoza MD Work Phone: [facility] Comment on above: Refill Request Start: 11-14-2024 End: 11-14-2024 Patient Outreach Brianna Doe RN [employer] Comment on above: High Risk phone cont act for Transitional Care Management Start: 11-13-2024 End: 11-13-2024 Patient encounter procedure Room Emergency Radiology Start: 11-13-2024 End: 11-13-2024 Emergency department patient visit Room Emergency Radiology Comment on above: Radio Gen RMP Start: 11-10-2024 End: 11-10-2024 ambulatory ADAMA MENDOZA Facility:[facility] Start: 11-10-2024 End: 11-10-2024 Patient encounter procedure Adama Mendoza MD Work Phone: [facility] [place] Comment on above: Bacterial pneumonia (Primary Dx); Pressure injury of left buttock, stage 2 (HCC) Start: 11-07-2024 End: 11-07-2024 Home visit Adama Mendoza MD Work Phone: [facility] Comment on above: Alzheimer's disease (HCC) (Primary Dx) Start: 11-03-2024 End: 11-03-2024 Refill Adama Mendoza MD Work Phone: [facility] Comment on above: Refill Request Transition Of Care ( TCM follow-up call #2: Discharged 10/20/2024) Weekly phone contact (Recurring) for Transitional Care Management Start: 10-27-2024 End: 10-27-2024 ambulatory Brianna Doe RN [employer] Comment on above: Left hip pain Start: 10-27-2024 End: 11-02-2024 Telephone encounter Dedra Chamorro [facility] Comment on above: Home Care (PT/OT Del ay in service call ) Home Care (cx home P T and OT) Start: 10-27-2024 End: 10-27-2024 Telephone follow-up Brianna Doe RN [employer] Comment on above: Transition Of Care ( TCM follow up call #1: Discharged 10/20/24) Weekly phone contact (Recurring) for Transitional Care Management Start: 10-27-2024 End: 10-27-2024 Home visit Parrish Cotton PT Work Phone: [facility] Comment on above: TELEPHONE CONTACT SN AGENCY DC WO VISI T Start: 10-26-2024 End: 10-26-2024 Telephone encounter Gail Reddy RN Work Phone: [facility] Comment on above: Home Care Start: 10-25-2024 End: 10-25-2024 Home visit Anibal Zavala PT Work Phone: [facility] Comment on above: PT ATTEMPTED VISIT SN ROUTINE Start: 10-24-2024 End: 10-24-2024 Patient encounter procedure Adama Mendoza MD Work Phone: [facility] Comment on above: Acute encephalopathy (Primary Dx); 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); Dementia with behavioral disturbance (HCC); Muscular deconditioning; Pneumonia of left lower lobe due to infectious organism; Decubitus ulcer of left buttock, stage 2 (HCC) Start: 10-24-2024 End: 10-24-2024 ambulatory ADAMA MENDOZA Facility:[facility] Start: 10-21-2024 End: 10-21-2024 Patient Outreach Brianna Doe RN [employer] Comment on above: Transition Of Care ( TCM initial call: Discharged 10/21/24) Initial phone contact for Transitional Care Management Start: 10-20-2024 End: 10-20-2024 Telephone encounter Rosalina Knutson LPN Work Phone: [facility] Comment on above: Home Care (Confirmat ion Call /) Home Care (MD lisette whittaker) Start: 10-15-2024 End: 10-20-2024 Evaluation and management of inpatient ADAMA MENDOZA Facility:[facility] Start: 10-15-2024 End: 10-15-2024 Patient encounter procedure Room Emergency CT Scan Start: 10-15-2024 End: 10-15-2024 Emergency department patient visit Room Emergency CT Scan Comment on above: Radiology CT Start: 10-14-2024 End: 10-14-2024 Office outpatient new 45 minutes Gaudencio her SANDERS Work Phone: Neurology Comment on above: 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) Start: 10-14-2024 End: 10-14-2024 ambulatory [facility] Facility:[facility] Start: 10-14-2024 End: 10-14-2024 Nursing evaluation of patient and report Nurse Card Indy Sousa Work Phone: Cardiology Comment on above: Transient cerebral i schemia, unspecified type Start: 10-14-2024 End: 10-14-2024 ambulatory [facility] Facility:[facility] Start: 10-14-2024 End: 10-14-2024 Patient encounter procedure Margaret Ardon APRN.CNP Work Phone: Neurology Comment on above: Dementia without beh avioral disturbance (HCC) (Primary Dx); NAIN (obstructive sleep apnea); History of CVA (cerebrovascular accident); Altered mental status, unspecified altered mental status type; Abnormal EEG; Transient cerebral ischemia, unspecified type Start: 10-11-2024 End: 10-11-2024 Patient encounter procedure Adama Mendoza MD Work Phone: [facility] Comment on above: Cellulitis of skin ( Primary Dx); Open wound of skin; Dementia with behavioral disturbance (HCC); 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) Start: 10-11-2024 End: 10-11-2024 ambulatory [facility] Facility:[facility] Start: 09-22-2024 End: 09-22-2024 Telephone encounter Margaret Ardon APRN.CNP Work Phone: Neurology Comment on above: Appointment Start: 09-21-2024 End: 09-22-2024 Telephone encounter Danita Meraz PA-C Work Phone: [facility] Comment on above: Results requesting help/summer mmendations Start: 09-21-2024 End: 09-21-2024 Emergency department patient visit Adama [facility] Facility:[facility] Start: 09-20-2024 End: 09-20-2024 Patient encounter procedure Adama Mendoza MD Work Phone: [facility] [place] Comment on above: Cellulitis of skin ( Primary Dx); Rash; Encounter for immunization Start: 09-20-2024 End: 09-20-2024 ambulatory ADAMA MENDOZA Facility:[facility] Start: 09-19-2024 End: 09-19-2024 Telephone encounter Adama Mendoza MD Work Phone: [facility] [place] Comment on above: Patient Question (re : vaccines); buttock lesion Start: 09-17-2024 End: 09-19-2024 Refill Adama Mendoza MD Work Phone: Internal Medicine [place] Comment on above: Refill Request Start: 09-16-2024 End: 09-20-2024 Refill Adama Mendoza MD Work Phone: [facility] [place] Comment on above: Refill Request Start: 09-13-2024 End: 09-14-2024 Telephone encounter Adama Mendoza MD Work Phone: [facility] [place] Comment on above: Results Start: 09-12-2024 End: 09-12-2024 Refill Shaye Kitchen MD Work Phone: Neurology Comment on above: Refill Request Start: 09-10-2024 End: 09-10-2024 Subsequent hospital visit by physician [facility] Work Phone: Radiology Comment on above: Left hip pain [M25.5 52] Start: 09-10-2024 End: 09-10-2024 Patient encounter procedure Adama Mendoza MD Work Phone: [facility] [place] Comment on above: Left hip pain (Prima ry Dx) Start: 09-10-2024 End: 09-10-2024 ambulatory ADAMA MENDOZA Facility:[facility] Start: 09-06-2024 End: 09-08-2024 Telephone encounter Rubén Gonzalez MD Work Phone: General Surgery Comment on above: Biopsy results Start: 09-05-2024 End: 09-05-2024 Refill Adama Mendoza MD Work Phone: [facility] Comment on above: Refill Request Start: 08-29-2024 End: 08-29-2024 Refill Shaye Kitchen MD Work Phone: Neurology Comment on above: Refill Request Start: 08-22-2024 End: 08-22-2024 ambulatory ADAMA MENDOZA Facility:[facility] Start: 08-22-2024 End: 08-22-2024 Patient encounter procedure Rubén Gonzalez MD Work Phone: General Surgery Comment on above: Mass of subcutaneous tissue of back (Primary Dx) Start: 08-16-2024 End: 08-16-2024 Nursing evaluation of patient and report Mi Nurse Work Phone: [facility] [place] Comment on above: Encounter for immuni zation Start: 08-16-2024 End: 08-16-2024 ambulatory ADAMA MENDOZA Facility:[facility] Start: 08-08-2024 End: 08-08-2024 ambulatory ADAMA MENDOZA Facility:[facility] Start: 08-08-2024 End: 08-08-2024 Patient encounter procedure Rubén Gonzalez MD Work Phone: General Surgery Comment on above: Mass of subcutaneous tissue of back Start: 08-01-2024 End: 08-01-2024 Telephone encounter Danita Meraz PA-C Work Phone: [facility] Comment on above: Results Start: 07-27-2024 End: 07-27-2024 Refill Adama Mendoza MD Work Phone: [facility] Comment on above: Refill Request Mass of subcutaneous tissue of back [R22.2] Start: 07-21-2024 End: 07-21-2024 Patient encounter procedure Danita Meraz PA-C Work Phone: [facility] Comment on above: Mass of subcutaneous tissue of back (Primary Dx) Start: 07-07-2024 End: 07-07-2024 Refill Adama Mendoza MD Work Phone: [facility] Comment on above: Refill Request Start: 06-28-2024 End: 06-28-2024 Office outpatient visit 25 minutes Amanda Montana PA-C Work Phone: [facility] Comment on above: Pain of finger of le ft hand (Primary Dx) Start: 06-22-2024 End: 06-22-2024 Patient encounter procedure Jelena Lazar APRN.EMBROIDERY ASSISTANT Work Phone: [facility] Comment on above: Cellulitis of skin ( Primary Dx); Acute gout of right elbow, unspecified cause; Bacterial pneumonia Refill Request Start: 06-16-2024 End: 06-16-2024 Telephone encounter Adama Mendoza MD Work Phone: [facility] Comment on above: Results Start: 06-15-2024 End: 06-15-2024 ambulatory Shira Manning RN NURSE INTERACTIVE MEDIA MARKETING SPECIALIST Comment on above: Information Start: 06-15-2024 End: 06-15-2024 Patient encounter procedure Jelena Lazar APRN.EMBROIDERY ASSISTANT Work Phone: [facility] Comment on above: Acute gout of right elbow, unspecified cause (Primary Dx) Bacterial pneumonia (Primary Dx); Cellulitis of skin Start: 06-09-2024 End: 06-09-2024 Chart abstracting Adama Mendoza MD Work Phone: [facility] Comment on above: ER Discharge Summary Start: 06-08-2024 End: 06-08-2024 Telephone encounter Adama Mendoza MD Work Phone: [facility] Comment on above: Patient Question Start: 05-12-2024 End: 05-12-2024 Patient encounter procedure Stephany Suarez MD Work Phone: Pulmonary Medicine Comment on above: 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); Asbestosis (HCC); Former smoker Start: 05-12-2024 Telephone encounter Danita huntley PA-C Work Phone: [facility] Comment on above: Results Start: 05-04-2024 Chart abstracting Judith Vanegas MA [facility] Comment on above: Consult ([facility] ) Start: 04-11-2024 End: 04-11-2024 Patient encounter procedure Adama Mendoza MD Work Phone: [facility] Comment on above: Medicare annual well ness visit, subsequent (Primary Dx); Essential hypertension, benign; Mixed hyperlipidemia; Elevated fasting blood sugar; GERD without esophagitis; CAD S/P percutaneous coronary angioplasty; History of CVA (cerebrovascular accident); Dementia without behavioral disturbance (HCC); NAIN (obstructive sleep apnea); Anemia, unspecified type; Advance directive discussed with patient; Pulmonary emphysema, unspecified emphysema type (HCC); Stage 3 chronic kidney disease, unspecified whether stage 3a or 3b CKD (HCC) Start: 04-05-2024 Telephone encounter Adama Mendoza MD Work Phone: [facility] Comment on above: Results Start: 04-04-2024 End: 04-04-2024 Patient encounter procedure Dandy Marcell Work Phone: Podiatry Comment on above: Calcaneal spur of le ft foot (Primary Dx); Pain of left heel Start: 03-28-2024 Refill Adama diamond MD Work Phone: [facility] Comment on above: Refill Request Start: 03-04-2024 Telephone encounter Danita huntley PA-C Work Phone: [facility] Comment on above: Results Patient Update Start: 03-04-2024 End: 03-04-2024 Subsequent hospital visit by physician [facility] Work Phone: Radiology Comment on above: Pain of left heel [M 79.672] Start: 03-04-2024 End: 03-04-2024 Patient encounter procedure Danita Meraz PA-C Work Phone: [facility] Comment on above: Pain of left heel (P rimary Dx) Dementia without beh avioral disturbance (HCC) (Primary Dx); NAIN (obstructive sleep apnea); History of CVA (cerebrovascular accident); Altered mental status, unspecified altered mental status type; Abnormal EEG Start: 01-25-2024 Refill Adama diamond MD Work Phone: [facility] Comment on above: Refill Request Start: 01-22-2024 End: 01-22-2024 Patient encounter procedure Jessica Miramontes PA-C Work Phone: Neurology Comment on above: Dementia due to [facility] 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 behavioral disturbance (HCC) (Primary Dx); Nonspecific abnormal electroencephalogram (EEG); History of CVA (cerebrovascular accident); Seizure (HCC); Altered mental status, unspecified altered mental status type Start: 01-14-2024 Telephone encounter Adama Mendoza MD Work Phone: [facility] Comment on above: Forms Start: 01-06-2024 End: 01-06-2024 Patient encounter procedure Eeg [facility] [place] Work Phone: Neurology Comment on above: Seizure (HCC); Altered mental status, unspecified altered mental status type Start: 01-06-2024 End: 01-06-2024 ambulatory ADAMA MENDOZA Facility:[facility] Start: 12-23-2023 ambulatory ADAMA MENDOZA Facili ty:[facility] Start: 12-23-2023 End: 12-23-2023 Subsequent hospital visit by physician [facility] (1.5t) Radiology Comment on above: Transient cerebral i schemia, unspecified type [G45.9] Start: 12-16-2023 Telephone encounter Stephany Suarez MD Work Phone: Pulmonary Medicine Comment on above: Results (PFT) Start: 12-15-2023 End: 12-15-2023 ambulatory Pulm [facility] Work Phone: [facility] Comment on above: Spirometry Start: 12-15-2023 End: 12-15-2023 Patient encounter procedure [facility] Work Phone: [facility] [place] Start: 11-20-2023 End: 11-20-2023 Patient encounter procedure Shaye Kitchen MD Work Phone: Neurology Comment on above: Dementia without beh avioral disturbance (HCC) (Primary Dx); NAIN (obstructive sleep apnea); History of CVA (cerebrovascular accident); Altered mental status, unspecified altered mental status type; Transient cerebral ischemia, unspecified type; Seizure (HCC) Start: 11-06-2023 Telephone encounter Adama Mendoza MD Work Phone: [facility] Comment on above: Patient Update; Resu lts Start: 10-31-2023 Refill Adama diamond MD Work Phone: [facility] Comment on above: Refill Request Start: 09-26-2023 End: 09-26-2023 [facility]: Start: 09-03-2023 Refill Adama diamond MD Work Phone: [facility] Comment on above: Refill Request Start: 07-14-2023 End: 07-14-2023 Patient encounter procedure Adama Mendoza MD Work Phone: [facility] Comment on above: Bacterial pneumonia (Primary Dx); Need for vaccination Start: 06-29-2023 Telephone encounter Adama Mendoza MD Work Phone: [facility] Comment on above: Results Start: 06-27-2023 End: 06-27-2023 Patient encounter procedure [facility] Work Phone: Start: 06-25-2023 Telephone encounter Adama Mendoza MD Work Phone: [facility] Comment on above: Results Start: 06-23-2023 End: 06-23-2023 [facility]: [facility] Comment on above: COVID-19 [U07.1] Start: 06-23-2023 End: 06-23-2023 Patient encounter procedure Adama Mendoza MD Work Phone: [facility] Comment on above: COVID-19 (Primary Dx ); Bacterial pneumonia; Urinary incontinence, unspecified type; Altered mental status, unspecified altered mental status type; History of CVA (cerebrovascular accident); Other specified transient cerebral ischemias Start: 06-17-2023 ambulatory Sisi vega RN NURSE INTERACTIVE MEDIA MARKETING SPECIALIST Comment on above: Mental Status Change s Start: 06-17-2023 End: 06-17-2023 Emergency department patient visit [facility] Work Phone: Start: 05-22-2023 Refill Adama diamond MD Work Phone: [facility] Comment on above: Refill Request Start: 05-07-2023 Telephone encounter Adama Mendoza MD Work Phone: [facility] Comment on above: Orders Start: 05-02-2023 Telephone encounter Adama Mendoza MD Work Phone: [facility] Comment on above: Results Start: 04-30-2023 End: 04-30-2023 Patient encounter procedure Jeff Crouch MD Work Phone: [facility] Comment on above: Urinary incontinence , unspecified type (Primary Dx) Start: 04-30-2023 Telephone encounter Adaam Mendoza MD Work Phone: [facility] Comment on above: Patient Update Refill Request Start: 04-14-2023 End: 04-14-2023 Patient encounter procedure Adama Mendoza MD Work Phone: [facility] Comment on above: Medicare annual well ness visit, subsequent (Primary Dx); Essential hypertension, benign; Mixed hyperlipidemia; Elevated fasting blood sugar; CAD S/P percutaneous coronary angioplasty; GERD without esophagitis; History of CVA (cerebrovascular accident); Dementia without behavioral disturbance (HCC); NAIN (obstructive sleep apnea) Start: 04-10-2023 Refill Adama diamond MD Work Phone: [facility] Comment on above: Refill Request Start: 04-06-2023 End: 04-06-2023 Patient encounter procedure Danita Meraz PA-C Work Phone: [facility] Comment on above: Fall, initial encoun ter (Primary Dx); Hematoma; Visit for suture removal Start: 02-05-2023 Chart abstracting Adama justin MD Work Phone: [facility] Comment on above: Consult (Cardiology /) Start: 02-02-2023 Refill Adama diamond MD Work Phone: [facility] Comment on above: Refill Request Start: 01-30-2023 Refill Adama diamond MD Work Phone: [facility] Comment on above: Refill Request Start: 01-08-2023 Refill Adama diamond MD Work Phone: [facility] Comment on above: Refill Request Start: 12-30-2022 End: 12-30-2022 ambulatory Pino Chappell PT Work Phone: [facility] Comment on above: Anterior dislocation of right shoulder, subsequent encounter (Primary Dx); 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, subsequent encounter Start: 12-16-2022 End: 12-16-2022 ambulatory Pino Chappell PT Work Phone: [facility] Comment on above: Anterior dislocation of right shoulder, subsequent encounter (Primary Dx); 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, subsequent encounter Start: 11-24-2022 End: 11-24-2022 ambulatory Pino Chappell PT Work Phone: [facility] Comment on above: Anterior dislocation of right shoulder, subsequent encounter (Primary Dx); 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, subsequent encounter Start: 11-20-2022 End: 11-20-2022 ambulatory Pino Chappell PT Work Phone: [facility] Comment on above: Anterior dislocation of right shoulder, subsequent encounter (Primary Dx); 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, subsequent encounter Start: 11-20-2022 End: 11-20-2022 Patient encounter procedure Dandy Wanlupe Work Phone: Podiatry Comment on above: Onychomycosis (Prima ry Dx); Pain in toe of left foot; Pain in toe of right foot Start: 11-17-2022 End: 11-17-2022 ambulatory Pino Chapplel PT Work Phone: [facility] Comment on above: Anterior dislocation of right shoulder, subsequent encounter (Primary Dx); 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, subsequent encounter Start: 11-06-2022 End: 11-06-2022 ambulatory Pino Chappell PT Work Phone: [facility] Comment on above: Anterior dislocation of right shoulder, subsequent encounter (Primary Dx); 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, subsequent encounter Start: 11-04-2022 End: 11-04-2022 ambulatory Pino Keegan PT Work Phone: [facility] Comment on above: Anterior dislocation of right shoulder, subsequent encounter (Primary Dx); 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, subsequent encounter Start: 10-27-2022 End: 10-27-2022 Patient encounter procedure Robert Combs MD Work Phone: Orthopaedics Comment on above: Anterior dislocation of right shoulder, subsequent encounter (Primary Dx); 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, subsequent encounter Start: 10-09-2022 End: 10-09-2022 Patient encounter procedure Adama Mendoza MD Work Phone: [facility] Comment on above: Essential hypertensi on, benign (Primary Dx); Elevated fasting blood sugar; Mixed hyperlipidemia; GERD without esophagitis; Dementia without behavioral disturbance (HCC); CAD S/P percutaneous coronary angioplasty; History of CVA (cerebrovascular accident); NAIN (obstructive sleep apnea); Anemia, unspecified type; Advance directive discussed with patient; Medication management Start: 09-17-2022 Telephone encounter Robert bynum MD Work Phone: Orthopaedics Comment on above: Patient Question Start: 09-16-2022 End: 09-16-2022 Patient encounter procedure Robert Combs MD Work Phone: Orthopaedics Comment on above: Anterior dislocation of right shoulder, initial encounter (Primary Dx); Traumatic tear of right rotator cuff, unspecified tear extent, initial encounter Start: 08-27-2022 Refill Adama diamond MD Work Phone: [facility] Comment on above: Refill Request Start: 08-05-2022 End: 08-05-2022 Nursing evaluation of patient and report Mi Nurse Work Phone: [facility] Comment on above: Need for influenza v accination (Primary Dx) Start: 08-04-2022 End: 08-04-2022 Patient encounter procedure Robert Combs MD Work Phone: Orthopaedics Comment on above: Anterior dislocation of right shoulder, initial encounter (Primary Dx); Traumatic tear of right rotator cuff, unspecified tear extent, initial encounter Start: 07-28-2022 Refill Adama diamond MD Work Phone: [facility] Comment on above: Refill Request Referral Request Patient Question Start: 07-24-2022 End: 07-24-2022 [facility] Start: 07-10-2022 Refill Adama diamond MD Work Phone: [facility] Comment on above: Refill Request Start: 06-12-2022 Refill Adama diamond MD Work Phone: [facility] Comment on above: Refill Request Start: 06-04-2022 Refill Adama diamond MD Work Phone: [facility] Comment on above: Refill Request Start: 04-04-2022 End: 04-04-2022 Patient encounter procedure Eulalia Odonnell MD Work Phone: General Surgery Comment on above: Skin lump of arm, ri ght Start: 04-02-2022 End: 04-02-2022 Patient encounter procedure Danita Meraz PA-C Work Phone: [facility] Comment on above: Skin lump of arm, ri ght (Primary Dx) Start: 03-26-2022 End: 03-26-2022 Patient encounter procedure Adama Mendoza MD Work Phone: [facility] Comment on above: Medicare annual well ness visit, subsequent (Primary Dx); Essential hypertension, benign; Mixed hyperlipidemia; Elevated fasting blood sugar; GERD without esophagitis; CAD S/P percutaneous coronary angioplasty; 3-vessel CAD; Dementia without behavioral disturbance, unspecified dementia type (HCC); NAIN (obstructive sleep apnea); Anemia, unspecified type; Living will on file; Advance directive discussed with patient; History of CVA (cerebrovascular accident); Medication management; History of prostate cancer; Need for vaccination Start: 01-27-2022 Refill Adama diamond MD Work Phone: [facility] Comment on above: Refill Request Start: 01-14-2022 Refill Adama diamond MD Work Phone: [facility] Comment on above: Refill Request Start: 06-19-2021 End: 06-19-2021 Subsequent hospital visit by physician [facility] Work Phone: Radiology Comment on above: Hand pain, right [M7 9.641] Start: 05-18-2021 End: 05-18-2021 Subsequent hospital visit by physician [facility] Work Phone: Radiology Comment on above: Hand injury, right, initial encounter [S69.91XA] Start: 03-06-2021 Patient encounter procedure Je rosanne Mendoza MD Work Phone: [facility] Work Phone: Start: 02-18-2021 End: 02-18-2021 Subsequent hospital visit by physician [facility] Work Phone: Radiology Comment on above: Acute right-sided lo w back pain without sciatica [M54.5] Start: 07-16-2018 [facility] Facility :[facility] Start: 11-16-2017 End: 11-16-2017 [facility] Procedures Date Procedure Procedure Detail Performing Clinician Start: 07-17-2025 Follow-up visit Follow Up ADAMA MENDOZA Start: 01-09-2025 Radex forearm 2 views D yolanda Cardenas MOTEL FRONT DESK ATTENDANT.EMBROIDERY ASSISTANT Work Phone: Start: 10-14-2024 Ecg routine ecg w/le ast 12 lds i&r only Margaret Ardon MOTEL FRONT DESK ATTENDANT.EMBROIDERY ASSISTANT Work Phone: Start: 08-22-2024 US GUIDED SOFT TISSU E MASS BIOPSY (POC) SURG USE ONLY Rubén Gonzalez MD Work Phone: Start: 08-16-2024 PFIZER-BIONTECH COVI D-19 VACCINE AGE 12+ YR (COMIRNATY) Adama Mendoza MD Work Phone: Start: 03-04-2024 Radex foot complete minimum 3 views Danita Meraz PA-C Work Phone: Start: 01-06-2024 Electroencephalogram w/rec awake&drowsy Shaye Kitchen MD Work Phone: Start: 12-23-2023 Mri brain brain stem w/o contrast material Shaye Kitchen MD Work Phone: Start: 12-15-2023 Noninvasive ear/puls e oximetry multiple deter Stephany Suarez MD Work Phone: Start: 12-15-2023 Brncdilat rspse spmt ry pre&post-brncdilat admn Stephany Suarez MD Work Phone: Start: 09-26-2023 SARS-CoV-2 & FLU Ant igen (Rapid) Start: 09-26-2023 Plain chest X-ray Start: 09-26-2023 Plain X-ray of shoulder Start: 09-26-2023 CT of head without contrast Start: 07-14-2023 INFLUENZA VACCINE, P RSV FREE, AGE 65+ YR, HIGH DOSE, QUADRIVALENT (FLUZONE HIGH-DOSE) Adama Mendoza MD Work Phone: Start: 07-14-2023 PFIZER-BIONTECH COVI D-19 VACCINE (2022- SEASON) AGE 12+ YR Adama Mendoza MD Work Phone: Start: 06-27-2023 MRI of brain without contrast Start: 06-23-2023 Radiologic exam chest 2 views Adama Mendoza MD Work Phone: Start: 06-17-2023 Plain chest X-ray Start: 06-17-2023 CT of head without contrast Start: 06-17-2023 Bacteria identified in Blood by Culture Start: 06-17-2023 SARS-CoV-2 & FLU Ant igen (Rapid) Start: 06-17-2023 Urine culture Start: 08-05-2022 INFLUENZA SEASONAL QUADRIVALENT HIGH DOSE AGE 65+ Adama Mendoza MD Work Phone: Start: 07-24-2022 Plain X-ray of shoulder Start: 07-24-2022 Plain X-ray of shoulder Start: 07-24-2022 Plain chest X-ray Start: 07-24-2022 Plain x-ray of humerus Start: 07-24-2022 Plain X-ray of shoulder Start: 07-24-2022 CT of head without contrast Start: 06-19-2021 Radex hand minimum 3 views Adama Mendoza MD Work Phone: Start: 05-18-2021 Radex hand minimum 3 views Adama Colón APRN.CNP Work Phone: Start: 02-18-2021 Radex spine lumbosac ral 2/3 views Jeff Crouch MD Work Phone: Start: 05-15-2017 History of placement of stent for coronary artery disease S/P right coronary artery (RCA) stent placement Adama Mendoza MD Work Phone: Start: 10-07-2013 History of placement of stent for coronary artery disease History of coronary artery stent placement Dr. Cayden Morton MD Comment on above: OSM-CVS-Cln-Distal R CA w/ 2.25 x 28 mm Promus Stent and POBA- Ostial Stenosis in the Prox 1st Acute Marginal Artery 10/07/2013 Plan of Treatment Date Care Activity Detail Author Start: 04-11-2028 Diabetes Screening Diabetes Screenin g [facility] Start: 04-09-2028 Urine microalbumin profile [facility] Start: 11-13-2027 Diabetes Screening Diabetes Screenin g [facility] Start: 10-18-2027 Diabetes Screening Diabetes Screenin g [facility] Start: 10-15-2027 Diabetes Screening Diabetes Screenin g [facility] Start: 05-10-2027 Diabetes Screening Diabetes Screenin g [facility] Start: 04-08-2027 Diabetes Screening Diabetes Screenin g [facility] Start: 04-04-2027 Diabetes Screening Diabetes Screenin g [facility] Start: 10-08-2026 Diabetes Screening Diabetes Screenin g [facility] Start: 06-23-2026 Diabetes Screening Diabetes Screenty ba [facility] Start: 04-30-2026 DIABETES SCREEN DIABETES SCREEN [facility] Start: 04-30-2026 Diabetes Screening Diabetes Screenty ba [facility] Start: 04-11-2026 Covid-19 Vaccine () Covid-19 Vaccine () [facility] Comment on above: Postponed from 02/13 (Declined at this time) Start: 04-11-2026 Hepatitis B surface antibody level LDL Cholesterol [facility] Start: 04-11-2026 Medicare Annual Wellness Visit Medicare Annual Wellness Visit [facility] Start: 04-02-2026 DIABETES SCREEN DIABETES SCREEN [facility] Start: 11-03-2025 End: 11-03-2025 Patient encounter procedure 11/03/2025 2:00 PM EST Office Visit [facility] [address] [place], [place] [id number] Adama Mendoza MD [address] [place] [address] [id number] mo f/u [facility] Comment on above: 6 mo f/u Start: 10-09-2025 DIABETES SCREEN DIABETES SCREEN [facility] Start: 09-29-2025 End: 12-29-2025 Basic metabolic 2000 panel - Serum or Plasma BASIC METABOLIC PANEL Lab Routine Essential hypertension, benign Mixed hyperlipidemia Elevated fasting blood sugar Expected: 09/29/2025, Expires: 12/29/2025 [facility] Comment on above: Expected: 09/29/2025 , Expires: 12/29/2025 Start: 09-29-2025 End: 12-29-2025 Hemoglobin A1c in Blood HEMOGLOBIN A1C Lab Routine Elevated fasting blood sugar Expected: 09/29/2025, Expires: 12/29/2025 [facility] Comment on above: Expected: 09/29/2025 , Expires: 12/29/2025 Start: 09-29-2025 End: 12-29-2025 LIPID PANEL, NONFASTING LIPID PANEL, NONFASTING Lab Routine Essential hypertension, benign Mixed hyperlipidemia Expected: 09/29/2025, Expires: 12/29/2025 [facility] Comment on above: Expected: 09/29/2025 , Expires: 12/29/2025 Start: 09-04-2025 End: 09-04-2025 Patient encounter procedure 09/04/2025 2:15 PM EST Office Visit Podiatry [address] [place] [address] Dandy Faith [address] [place] [address] 3 month follow up nail care Podiatry Comment on above: 3 month follow up na az care Start: 06-05-2025 Influenza vaccination Influenza Vacc ine (#1) [facility] Start: 06-02-2025 End: 06-02-2025 Patient encounter procedure 06/02/2025 2:00 PM EDT Office Visit Podiatry [address] [place] [address] Dandy Faith [address] [place] [address] 3 month follow up nail care Podiatry Comment on above: 3 month [facility] Start: 05-10-2025 Hepatitis B surface antibody level LDL Cholesterol [facility] Start: 04-12-2025 End: 07-12-2025 Pyridoxine [Mass/volume] in Serum or Plasma VITAMIN B6/PYRIDOXIN Lab Routine Vitamin B6 deficiency Expected: 04/12/2025, Expires: 07/12/2025 [facility] Work Phone: Comment on above: Expected: 04/12/2025 , Expires: 07/12/2025 Start: 04-12-2025 End: 04-12-2025 Patient encounter procedure 04/12/2025 9:00 AM EDT Office Visit Vasculary Surgery [address] [place] [address] Ingrowing toenail [L60.0] Vas[facility] Comment on above: Ingrowing toenail [L 60.0] Start: 04-11-2025 End: 07-11-2025 Cobalamin (Vitamin B12) [Mass/volume] in Serum or Plasma [facility] Work Phone: Comment on above: Expected: 04/11/2025 , Expires: 07/11/2025 Start: 04-11-2025 End: 07-11-2025 Comprehensive metabolic 2000 panel - Serum or Plasma [facility] Comment on above: Expected: 04/11/2025 , Expires: 07/11/2025 Start: 04-11-2025 Covid-19 Vaccine () Covid-19 Vaccine () [facility] Comment on above: Postponed from 11/14 (Declined at this time) Start: 04-11-2025 End: 07-11-2025 Hemoglobin A1c in Blood [facility] Comment on above: Expected: 04/11/2025 , Expires: 07/11/2025 Start: 04-11-2025 End: 07-11-2025 LIPID PANEL, NONFASTING [facility] Comment on above: Expected: 04/11/2025 , Expires: 07/11/2025 Start: 04-11-2025 End: 07-11-2025 Magnesium [Mass/volume] in Serum or Plasma [facility] Comment on above: Expected: 04/11/2025 , Expires: 07/11/2025 Start: 04-11-2025 Medicare Annual Wellness Visit Medicare Annual Wellness Visit [facility] Start: 04-11-2025 End: 04-11-2025 Patient encounter procedure [facility] [place] Comment on above: Medicare Wellness Start: 04-11-2025 End: 07-11-2025 Prostate specific Ag [Mass/volume] in Serum or Plasma [facility] Comment on above: Expected: 04/11/2025 , Expires: 07/11/2025 Start: 04-11-2025 End: 07-11-2025 Pyridoxine [Mass/volume] in Serum or Plasma [facility] Comment on above: Expected: 04/11/2025 , Expires: 07/11/2025 Start: 04-11-2025 RSV Vaccine (1 - 1-d ose 60+ series) RSV Vaccine (1 - 1-dose 60+ series) [facility] Comment on above: Postponed from 03/20 (Insurance Coverage) Start: 04-11-2025 RSV Vaccine (1 - 1-d ose 75+ series) RSV Vaccine (1 - 1-dose 75+ series) [facility] Comment on above: Postponed from 03/20 (Insurance Coverage) Start: 04-11-2025 End: 07-11-2025 Urinalysis complete panel - Urine URINALYSIS, WITH MICROSCOPIC Lab Routine Essential hypertension, benign Mixed hyperlipidemia Expected: 04/11/2025, Expires: 07/11/2025 [facility] Comment on above: Expected: 04/11/2025 , Expires: 07/11/2025 Start: 04-11-2025 End: 07-11-2025 Zinc [Mass/volume] in Serum or Plasma [facility] Comment on above: Expected: 04/11/2025 , Expires: 07/11/2025 Start: 04-04-2025 Hepatitis B surface antibody level LDL Cholesterol [facility] Start: 03-26-2025 DIABETES SCREEN DIABETES SCREEN [facility] Start: 03-04-2025 Annual PCP Team Director Sales And Marketing jackie Disease Visit Annual PCP Team Chronic Disease Visit [facility] Start: 02-24-2025 End: 02-24-2025 Patient encounter procedure Podiatry Comment on above: 3 month follow up na il care Start: 02-13-2025 Covid-19 Vaccine () Covid-19 Vaccine () [facility] Start: 12-05-2024 End: 12-05-2024 Patient encounter procedure Neurology Comment on above: Follow up 9 months [facility] [place] Dementia, NAIN, Hx of CVA- KYLE 10/14/24 KD, MRI ordered/ done, consult to brain health, pt wasn't taking seroquel per son, reordered seroquel Start: 11-20-2024 BP Controlled (<130/80) BP Controlle d (<130/80) [facility] Start: 11-10-2024 End: 11-10-2024 Patient encounter procedure 11/10/2024 3:20 PM EST Office Visit [facility] [place] [address] [place], [place] [phone] Adama Mendoza MD [address] [place], [place] [phone] 2 week follow up on pneumonia/ulcer [facility] [place] Comment on above: 2 week follow up on pneumonia/ulcer Start: 10-28-2024 End: 10-28-2024 ambulatory 10/28/2024 1:30 PM EST OT/PT/Speech Visit [facility] [address] [place] [address] Pino Chappell, PT [address] [facility] [place] [address] rescheduled from 10/07 [facility] Comment on above: rescheduled from Start: 10-24-2024 End: 10-24-2024 Patient encounter procedure 10/24/2024 1:00 PM EST Office Visit [facility] [address] [place] [address] Adama Mendoza MD [address] [place] [address] discharged from [facility] [place] Comment on above: discharged from [facility] Start: 10-19-2024 End: 10-19-2024 Patient encounter procedure 10/19/2024 3:20 PM EST Appointment Radiology [address] [place] [address] Transient cerebral ischemia, unspecified type [G45.9] Radiology Comment on above: Transient cerebral i schemia, unspecified type [G45.9] Start: 10-17-2024 End: 10-17-2024 Patient encounter procedure 10/17/2024 2:00 PM EST Office Visit Family Medicine [place] [address] [place] [address] Adama Mendoza MD [address] [place] [address] 6 month follow up [facility] [place] Comment on above: 6 month follow up Start: 10-14-2024 End: 10-14-2024 Patient encounter procedure 10/14/2024 8:30 AM EST Office Visit Neurology [address] [address] Margaret Ardon APRN.EMBROIDERY ASSISTANT [address] [place] [address] hospital follow up - 60 minutes per [place] Neurology Comment on above: hospital follow up - 60 minutes per KD Start: 10-12-2024 Annual PCP Team Director Sales And Marketing jackie Disease Visit Annual PCP Team Chronic Disease Visit [facility] Start: 10-12-2024 BP Controlled (<130/80) BP Controlle d (<130/80) [facility] Start: 10-08-2024 Hepatitis B surface antibody level LDL Cholesterol [facility] Start: 10-07-2024 End: 10-07-2024 ambulatory 10/07/2024 1:30 PM EST OT/PT/Speech Visit [facility] [address] [place] [address] Pino Chappell, PT [address] [place], [place] [id number] Left hip pain [M25.552] [facility] Comment on above: Left hip pain [M25.5 52] Start: 10-05-2024 Advance Directive Discussion Advance Directive Discussion [facility] Start: 09-30-2024 End: 12-30-2024 Basic metabolic 2000 panel - Serum or Plasma BASIC METABOLIC PANEL Lab Routine Essential hypertension, benign Elevated fasting blood sugar Stage 3 chronic kidney disease, unspecified whether stage 3a or 3b CKD (HCC) Expected: 09/30/2024, Expires: 12/30/2024 [facility] Comment on above: Expected: 09/30/2024 , Expires: 12/30/2024 Start: 09-30-2024 End: 12-30-2024 Hemoglobin A1c in Blood HEMOGLOBIN A1C Lab Routine Elevated fasting blood sugar Expected: 09/30/2024, Expires: 12/30/2024 [facility] Comment on above: Expected: 09/30/2024 , Expires: 12/30/2024 Start: 09-30-2024 End: 12-30-2024 LIPID PANEL, NONFASTING LIPID PANEL, NONFASTING Lab Routine Essential hypertension, benign Mixed hyperlipidemia CAD S/P percutaneous coronary angioplasty History of CVA (cerebrovascular accident) Expected: 09/30/2024, Expires: 12/30/2024 [facility] Comment on above: Expected: 09/30/2024 , Expires: 12/30/2024 Start: 09-23-2024 End: 09-23-2024 Patient encounter procedure 09/23/2024 7:30 AM EST Office Visit Neurology [address] [address] Margaret Ardon APRN.EMBROIDERY ASSISTANT [address] [place] [address] follow up (per son [facility])Please read all phone notes from 09/21 Neurology Comment on above: follow up (per son [facility])Please read all phone notes from 09/21 Start: 09-20-2024 End: 12-20-2024 Borrelia burgdorferi IgG and IgM panel - Serum [facility] Work Phone: Comment on above: Expected: 09/20/2024 , Expires: 12/20/2024 Start: 09-20-2024 End: 09-20-2024 Patient encounter procedure 09/20/2024 10:20 AM EST Office Visit Family Medicine [place] [address] [place], [place] [phone] Adama Mendoza MD [address] [place] [address] left buttock lesion-see phone encounter. [facility] [place] Comment on above: left buttock lesion- see phone encounter. Start: 09-09-2024 DIABETES SCREEN DIABETES SCREEN [facility] Start: 08-22-2024 End: 08-22-2024 Patient encounter procedure 08/22/2024 1:45 PM EST Office Visit General Surgery [address] [place], [place] [phone] Rubén Gonzalez MD [address] [place], [place] [phone] elvira 30 us bx back mass General Surgery Comment on above: elvira 30 us bx back ma ss Start: 08-08-2024 End: 08-08-2024 Patient encounter procedure 08/08/2024 2:15 PM EST Office Visit General Surgery [address] [place] [address] Rubén Gonzalez MD [address] [place] [address] Mass of subcutaneous tissue of back [R22.2] General Surgery Comment on above: Mass of subcutaneous tissue of back [R22.2] Start: 07-27-2024 End: 07-27-2024 Patient encounter procedure 07/27/2024 1:00 PM EDT Appointment Radiology [address] [place] [address] Mass of subcutaneous tissue of back [R22.2] Radiology Comment on above: Mass of subcutaneous tissue of back [R22.2] Start: 07-14-2024 Annual PCP Team Director Sales And Marketing jackie Disease Visit Annual PCP Team Chronic Disease Visit [facility] Start: 07-14-2024 BP Controlled (<130/80) BP Controlle d (<130/80) [facility] Start: 06-30-2024 End: 06-30-2024 Patient encounter procedure 06/30/2024 11:40 AM EDT Office Visit Family Medicine [place] [address] [facility] [place] [address] Adama Mendoza MD [address] [facility] [place] [address] 2 days recheck left middle finger- swollen [facility] [place] Comment on above: 2 days recheck left middle finger- swollen Start: 06-23-2024 Annual PCP Team Director Sales And Marketing jackie Disease Visit Annual PCP Team Chronic Disease Visit [facility] Start: 06-22-2024 End: 06-22-2024 Patient encounter procedure 06/22/2024 11:20 AM EDT Office Visit Family [facility] [place] [address] [facility] [place] [address] Jelena Lazar APRN.EMBROIDERY ASSISTANT [address] [facility] [place] [address] 1 week follow up cellulitis per Dr Mendoza [facility] [place] Comment on above: 1 week follow up rei lulitis per Dr Mendoza Start: 06-15-2024 End: 09-14-2024 Urate [Mass/volume] in Serum or Plasma [facility] Work Phone: Comment on above: Expected: 06/15/2024 , Expires: 09/14/2024 Start: 06-05-2024 Covid-19 Vaccine () Covid-19 Vaccine () [facility] Start: 06-05-2024 Covid-19 Vaccine () Covid-19 Vaccine () [facility] Start: 06-05-2024 Influenza vaccination Influenza Vacc ine (#1) [facility] Start: 05-12-2024 End: 05-12-2024 Patient encounter procedure 05/12/2024 2:15 PM EDT Office Visit Pulmonary Medicine [address] [place] [address] Stephany Suarez MD [address] [place] [address] 3 month f/u Pulmonary Medicine Comment on above: 3 month f/u Start: 05-12-2024 End: 08-11-2024 Basic metabolic 2000 panel - Serum or Plasma BASIC METABOLIC PANEL Lab Routine Stage 3 chronic kidney disease, unspecified whether stage 3a or 3b CKD (HCC) Expected: 05/12/2024, Expires: 08/11/2024 [facility] Work Phone: Comment on above: Expected: 05/12/2024 , Expires: 08/11/2024 Start: 04-30-2024 ANNUAL PCP TEAM SIDEHAND JACKIE DISEASE VISIT ANNUAL PCP TEAM CHRONIC DISEASE VISIT [facility] Start: 04-30-2024 BP CONTROLLED (<130/80) BP CONTROLLE D (<130/80) [facility] Start: 04-14-2024 ANNUAL PCP TEAM SIDEHAND JACKIE DISEASE VISIT ANNUAL PCP TEAM CHRONIC DISEASE VISIT [facility] Start: 04-11-2024 End: 04-11-2024 Patient encounter procedure [facility] [place] Comment on above: Medicare wellness Medicare wellness/ q uestions on any vitamins can be d/c? Start: 04-06-2024 ANNUAL PCP TEAM SIDEHAND JACKIE DISEASE VISIT ANNUAL PCP TEAM CHRONIC DISEASE VISIT [facility] Start: 04-05-2024 End: 07-05-2024 Basic metabolic 2000 panel - Serum or Plasma BASIC METABOLIC PANEL Lab Routine Renal insufficiency Expected: 04/05/2024, Expires: 07/05/2024 [facility] Work Phone: Comment on above: Expected: 04/05/2024 , Expires: 07/05/2024 Start: 04-04-2024 End: 04-04-2024 Patient encounter procedure 04/04/2024 1:45 PM EDT Office Visit Podiatry [address] [place], [place] [phone] Dandy Faith [address] [place], [place] [phone] Pain of left heel [M79.672] Podiatry Comment on above: Pain of left heel [M 79.672] Start: 04-02-2024 Hepatitis B surface antibody level LDL CHOLESTEROL [facility] Start: 03-04-2024 End: 03-04-2024 Patient encounter procedure 03/04/2024 2:00 PM EDT Office Visit Neurology [address] [place], [place] [address] Shaye Kitchen Jr., MD [address] [phone] follow up after testing Neurology Comment on above: follow up after test ing Start: 11-14-2023 Covid-19 Vaccine () Covid-19 Vaccine () [facility] Start: 10-09-2023 ANNUAL PCP TEAM SIDEHAND JACKIE DISEASE VISIT ANNUAL PCP TEAM CHRONIC DISEASE VISIT [facility] Start: 10-09-2023 Hepatitis B surface antibody level LDL CHOLESTEROL [facility] Start: 10-05-2023 Advance Directive Discussion Advance Directive Discussion [facility] Start: 10-02-2023 End: 12-02-2023 Basic metabolic 2000 panel - Serum or Plasma BASIC METABOLIC PNL Lab Routine Essential hypertension, benign Mixed hyperlipidemia Expected: 10/02/2023, Expires: 12/02/2023 [facility] Work Phone: Comment on above: Expected: 10/02/2023 , Expires: 12/02/2023 Start: 10-02-2023 End: 12-02-2023 Hemoglobin A1c in Blood HGB A1C Lab Routine Elevated fasting blood sugar Expected: 10/02/2023, Expires: 12/02/2023 [facility] Work Phone: Comment on above: Expected: 10/02/2023 , Expires: 12/02/2023 Start: 10-02-2023 End: 12-02-2023 LIPID PANEL, NONFASTING LIPID PANEL, NONFASTING Lab Routine Mixed hyperlipidemia Expected: 10/02/2023, Expires: 12/02/2023 [facility] Work Phone: Comment on above: Expected: 10/02/2023 , Expires: 12/02/2023 Start: 09-26-2023 [facility] Start: 06-23-2023 End: 08-23-2023 Bacteria identified in Urine by Culture [facility] Work Phone: Comment on above: Expected: 06/23/2023 , Expires: 08/23/2023 Start: 06-23-2023 End: 08-23-2023 Comprehensive metabolic 2000 panel - Serum or Plasma [facility] Work Phone: Comment on above: Expected: 06/23/2023 , Expires: 08/23/2023 Start: 06-17-2023 End: 06-17-2023 [facility] Start: 06-17-2023 Bacteria identified in Blood by Culture Blood Culture [facility] Start: 06-17-2023 Bacteria identified in Urine by Culture Urine Culture [facility] Start: 06-17-2023 End: 06-17-2023 Blood culture [facility] Start: 06-05-2023 Influenza vaccination C [facility] Start: 04-30-2023 End: 06-30-2023 Comprehensive metabolic 2000 panel - Serum or Plasma [facility] Work Phone: Comment on above: Expected: 04/30/2023 , Expires: 06/30/2023 Start: 04-30-2023 End: 06-30-2023 Prostate specific Ag [Mass/volume] in Serum or Plasma [facility] Work Phone: Comment on above: Expected: 04/30/2023 , Expires: 06/30/2023 Start: 04-30-2023 End: 06-30-2023 Urinalysis complete panel - Urine [facility] Work Phone: Comment on above: Expected: 04/30/2023 , Expires: 06/30/2023 Start: 04-02-2023 ANNUAL PCP TEAM SIDEHAND JACKIE DISEASE VISIT ANNUAL PCP TEAM CHRONIC DISEASE VISIT [facility] Start: 03-27-2023 End: 05-27-2023 CBC W Auto Differential panel - Blood CBC + DIFF Lab Routine Anemia, unspecified type Expected: 03/27/2023, Expires: 05/27/2023 [facility] Work Phone: Comment on above: Expected: 03/27/2023 , Expires: 05/27/2023 Start: 03-27-2023 End: 05-27-2023 Cobalamin (Vitamin B12) [Mass/volume] in Serum or Plasma VITAMIN B12 BLOOD Lab Routine GERD without esophagitis Medication management Expected: 03/27/2023, Expires: 05/27/2023 [facility] Work Phone: Comment on above: Expected: 03/27/2023 , Expires: 05/27/2023 Start: 03-27-2023 End: 05-27-2023 Comprehensive metabolic 2000 panel - Serum or Plasma COMP METABOLIC PANEL Lab Routine Essential hypertension, benign Elevated fasting blood sugar Mixed hyperlipidemia Expected: 03/27/2023, Expires: 05/27/2023 [facility] Work Phone: Comment on above: Expected: 03/27/2023 , Expires: 05/27/2023 Start: 03-27-2023 End: 05-27-2023 Hemoglobin A1c in Blood HGB A1C Lab Routine Elevated fasting blood sugar Expected: 03/27/2023, Expires: 05/27/2023 [facility] Work Phone: Comment on above: Expected: 03/27/2023 , Expires: 05/27/2023 Start: 03-27-2023 End: 05-27-2023 LIPID PANEL, NONFASTING LIPID PANEL, NONFASTING Lab Routine Essential hypertension, benign Mixed hyperlipidemia CAD S/P percutaneous coronary angioplasty Expected: 03/27/2023, Expires: 05/27/2023 [facility] Work Phone: Comment on above: Expected: 03/27/2023 , Expires: 05/27/2023 Start: 03-27-2023 End: 05-27-2023 Magnesium [Mass/volume] in Serum or Plasma MAGNESIUM BLD Lab Routine GERD without esophagitis Medication management Expected: 03/27/2023, Expires: 05/27/2023 [facility] Work Phone: Comment on above: Expected: 03/27/2023 , Expires: 05/27/2023 Start: 03-27-2023 End: 05-27-2023 Urinalysis complete panel - Urine URINALYSIS, WITH MICROSCOPIC Lab Routine Essential hypertension, benign Mixed hyperlipidemia Expected: 03/27/2023, Expires: 05/27/2023 [facility] Work Phone: Comment on above: Expected: 03/27/2023 , Expires: 05/27/2023 Start: 03-26-2023 ANNUAL PCP TEAM SIDEHAND JACKIE DISEASE VISIT ANNUAL PCP TEAM CHRONIC DISEASE VISIT [facility] Start: 03-26-2023 BP CONTROLLED (<130/80) BP CONTROLLE D (<130/80) [facility] Start: 03-26-2023 Hepatitis B surface antibody level LDL CHOLESTEROL [facility] Start: 03-26-2023 Urine microalbumin profile DTAP,TDAP,TD (2 - Tdap) [facility] Comment on above: Postponed from 05/21 (Insurance Coverage) Start: 12-20-2022 COVID-19 VACCINE (5 - Pfizer series) COVID-19 VACCINE (5 - Pfizer series) [facility] Start: 01-01-2023 ADVANCE DIRECTIVE DISCUSSION ADVANCE DIRECTIVE DISCUSSION [facility] Start: 09-09-2022 ANNUAL PCP TEAM SIDEHAND JACKIE DISEASE VISIT ANNUAL PCP TEAM CHRONIC DISEASE VISIT [facility] Start: 09-09-2022 Hepatitis B surface antibody level LDL CHOLESTEROL [facility] Start: 06-05-2022 Influenza vaccination INFLUENZA (#1) [facility] Start: 03-06-2022 BP CONTROLLED (<130/80) BP CONTROLLE D (<130/80) [facility] Start: 11-26-2021 COVID-19 VACCINE (4 - Booster for Pfizer series) COVID-19 VACCINE (4 - Booster for Pfizer series) [facility] Start: 10-05-2021 ADVANCE DIRECTIVE DISCUSSION ADVANCE DIRECTIVE DISCUSSION [facility] Start: 09-20-2021 COVID-19 VACCINE (4 - Booster for Pfizer series) COVID-19 VACCINE (4 - Booster for Pfizer series) [facility] Start: 05-21-2019 Urine microalbumin profile DTAP,TDAP,TD (2 - Tdap) [facility] Start: 2018 RSV Vaccine (1 - 1-d ose 75+ series) RSV Vaccine (1 - 1-dose 75+ series) [facility] Start: 2003 RSV Vaccine (1 - 1-d ose 60+ series) RSV Vaccine (1 - 1-dose 60+ series) [facility] Start: 1961 Spirometry Spirometry [facility] ECG COMPLETE ECG COMPLETE ECG Routine Transient cerebral ischemia, unspecified type 10/14/2024 10:31 AM EST [facility] Work Phone: End: 11-20-2024 EPIL EEG ROUTINE EPIL EEG ROUTINE NEUROLOGY Routine Seizure (HCC) Altered mental status, unspecified altered mental status type 1 Occurrences starting 11/20/2023 until 11/20/2024 [facility] Work Phone: Comment on above: 1 Occurrences starti ng 11/20/2023 until 11/20/2024 End: 12-19-2024 MR Brain WO contrast MRI BRAIN WO IVCON Radiology Routine Transient cerebral ischemia, unspecified type 1 Occurrences starting 11/20/2023 until 12/19/2024 [facility] Work Phone: Comment on above: 1 Occurrences starti ng 11/20/2023 until 12/19/2024 End: 11-13-2025 MR Brain WO contrast MRI BRAIN WO IVCON Radiology Routine Transient cerebral ischemia, unspecified type 1 Occurrences starting 10/14/2024 until 11/13/2025 [facility] Work Phone: Comment on above: 1 Occurrences starti ng 10/14/2024 until 11/13/2025 End: 12-19-2024 MRA Head vessels WO contrast MRA BRAIN WO IVCON Radiology Routine Transient cerebral ischemia, unspecified type 1 Occurrences starting 11/20/2023 until 12/19/2024 [facility] Work Phone: Comment on above: 1 Occurrences starti ng 11/20/2023 until 12/19/2024 End: 12-19-2024 MRA Neck vessels WO contrast MRA CAROTID WO IVCON Radiology Routine Transient cerebral ischemia, unspecified type 1 Occurrences starting 11/20/2023 until 12/19/2024 [facility] Work Phone: Comment on above: 1 Occurrences starti ng 11/20/2023 until 12/19/2024 End: 07-22-2024 Mri brain brain stem w/o contrast material MRI BRAIN WO IVCON Radiology STAT Urinary incontinence, unspecified type Altered mental status, unspecified altered mental status type History of CVA (cerebrovascular accident) Other specified transient cerebral ischemias 1 Occurrences starting 06/23/2023 until 07/22/2024 [facility] Work Phone: Comment on above: 1 Occurrences starti ng 06/23/2023 until 07/22/2024 Patient Education [facility] Work Phone: Patient referral [facility] Work Phone: Pyridoxine [Mass/volume] in Serum or Plasma VITAMIN B6/PYRIDOXIN Lab Routine Vitamin B6 deficiency 04/13/2025 2:52 PM EDT [facility] SURGICAL PATHOLOGY SURGICAL PATH OLOGY Lab Routine Mass of subcutaneous tissue of back 08/22/2024 1:31 PM EST [facility] Work Phone: UA DIP, URINE (POC) UA DIP, URIN E (POC) Lab Routine Urinary incontinence, unspecified type Ordered: 04/30/2023 [facility] Work Phone: Comment on above: Ordered: 04/30/2023 End: 08-20-2025 US Chest wall US CHEST WALL/SOFT TISSUE Radiology Routine Mass of subcutaneous tissue of back 1 Occurrences starting 07/21/2024 until 08/20/2025 [facility] Work Phone: Comment on above: 1 Occurrences starti ng 07/21/2024 until 08/20/2025 US Chest wall US CHEST WALL/SO FT TISSUE Radiology Routine Mass of subcutaneous tissue of back 07/27/2024 1:31 PM EDT [facility] Work Phone: End: 07-22-2025 XR Chest PA and Lateral XR CHEST 2V FRONTAL/LAT Radiology STAT Bacterial pneumonia 1 Occurrences starting 06/22/2024 until 07/22/2025 [facility] Work Phone: Comment on above: 1 Occurrences starti ng 06/22/2024 until 07/22/2025 End: 07-28-2025 XR Finger - left AP and Lateral and oblique XR DIGIT GENERAL 3V FRONTAL/LAT/OBL LEFT Radiology Routine Pain of finger of left hand 1 Occurrences starting 06/28/2024 until 07/28/2025 [facility] Work Phone: Comment on above: 1 Occurrences starti ng 06/28/2024 until 07/28/2025 End: 04-03-2025 XR Foot - left AP and Lateral and oblique XR FOOT GENERAL 3V AP/LAT/OBL LEFT Radiology Routine Pain of left heel 1 Occurrences starting 03/04/2024 until 04/03/2025 [facility] Work Phone: Comment on above: 1 Occurrences starti ng 03/04/2024 until 04/03/2025 XR Foot - left AP an d Lateral and oblique XR FOOT GENERAL 3V AP/LAT/OBL LEFT Radiology Routine Pain of left heel 03/04/2024 12:33 PM EDT [facility] End: 10-10-2025 XR Pelvis and Hip - left AP and Lateral frog XR HIP GENERAL 3V PELV/AP/LAT LEFT Radiology Routine Left hip pain 1 Occurrences starting 09/10/2024 until 10/10/2025 [facility] Work Phone: Comment on above: 1 Occurrences starti ng 09/10/2024 until 10/10/2025 XR Pelvis and Hip - left AP and Lateral frog XR HIP GENERAL 3V PELV/AP/LAT LEFT Radiology Routine Left hip pain 09/10/2024 10:08 AM EST [facility] Immunizations Immunization Date Immunization Notes Care Provider Esthela oakes 09-20-2024 influenza, high dose seasonal, preservative-free Adama Mendoza MD Work Phone: [facility] 09-20-2024 influenza virus vacc ine, unspecified formulation Adama Mendoza MD Work Phone: [facility] 08-16-2024 COVID-19 vaccine, ag e 12+ yr (PFIZER-BIONTECH COMIRNAT) Mi Nurse Work Phone: [facility] 07-14-2023 COVID-19 vaccine, ag e 12+ yr, 2022- season (PFIZER-BIONTECH) Adama Mendoza MD Work Phone: [facility] 07-14-2023 influenza (HD-IIV4) vaccine, age 65+ yr, high dose, quadrivalent, PF (FLUZONE HIGH-DOSE) Adama Mendoza MD Work Phone: [facility] 07-14-2023 influenza virus vacc ine, unspecified formulation Dandy Faith Work Phone: [facility] 08-22-2022 COVID-19 booster vaccine, age 12+ yr, bivalent (PFIZER-BIONTECH) Adama Mendoza MD Work Phone: [facility] Work Phone: 08-05-2022 influenza, high-dose , quadrivalent vaccine (FLUZONE HIGH DOSE QUADRIVALENT) Fl Nurse Work Phone: [facility] Work Phone: 08-05-2022 influenza virus vacc ine, unspecified formulation Sisi Ramey RN [facility] 03-26-2022 pneumococcal Conjuga te, unspecified formulation Adama Mendoza MD Work Phone: [facility] Work Phone: 03-26-2022 pneumococcal (PCV20) vaccine, 20 valent (PREVNAR 20) Adama Mendoza MD Work Phone: [facility] 06-21-2021 influenza, high-dose , quadrivalent vaccine (FLUZONE HIGH DOSE QUADRIVALENT) Adama Mendoza MD Work Phone: [facility] Work Phone: 01-09-2021 zoster vaccine recombinant Adama Mendoza MD Work Phone: [facility] 01-08-2021 zoster vaccine recombinant Adama Mendoza MD Work Phone: [facility] 12-19-2020 COVID-19 vaccine, ag e 12+ yr (PFIZER-BIONTECH - PURPLE TOP) Adama Mendoza MD Work Phone: [facility] 11-28-2020 COVID-19 vaccine, ag e 12+ yr (PFIZER-BIONTECH - PURPLE TOP) Adama Mendoza MD Work Phone: [facility] 08-23-2020 zoster vaccine recombinant Adama Mendoza MD Work Phone: [facility] 07-28-2020 influenza, high-dose , quadrivalent vaccine (FLUZONE HIGH DOSE QUADRIVALENT) Adama Mendoza MD Work Phone: [facility] 07-06-2019 influenza, high dose seasonal, preservative-free Adama Mendoza MD Work Phone: [facility] 07-07-2018 influenza, high dose seasonal, preservative-free Adama Mendoza MD Work Phone: [facility] 04-09-2018 tetanus toxoid, redu no diphtheria toxoid, and acellular pertussis vaccine, adsorbed Danita Meraz PA-C Work Phone: [facility] 06-10-2017 influenza, high dose seasonal, preservative-free Adama Mendoza MD Work Phone: [facility] 06-30-2016 influenza, high dose seasonal, preservative-free Adama Mendoza MD Work Phone: [facility] 11-27-2015 pneumococcal conjuga te vaccine, 13 valent Adama Mendoza MD Work Phone: [facility] 06-23-2014 influenza, high dose seasonal, preservative-free Adama Mendoza MD Work Phone: [facility] 06-23-2014 pneumococcal polysaccharide vaccine, 23 valent Adama Mendoza MD Work Phone: [facility] 09-05-2013 Influenza virus vaccine [facility] 09-05-2013 influenza, seasonal, injectable, preservative free Adama Mendoza MD Work Phone: [facility] 08-13-2013 influenza virus vacc ine, unspecified formulation Adama Mendoza MD Work Phone: [facility] 07-27-2012 influenza virus vacc ine, unspecified formulation Adama Mendoza MD Work Phone: [facility] 09-24-2011 influenza virus vacc ine, unspecified formulation Adama Mendoza MD Work Phone: [facility] 08-22-2010 influenza virus vacc ine, unspecified formulation Adama Mendoza MD Work Phone: [facility] 09-18-2009 novel influenza-H1N1 -09, preservative-free, injectable Adama Mendoza MD Work Phone: [facility] 07-04-2009 influenza virus vacc ine, unspecified formulation Adama Mendoza MD Work Phone: [facility] Work Phone: 05-21-2009 diphtheria and tetan us toxoids, adsorbed for pediatric use Adama Mendoza MD Work Phone: [facility] Work Phone: 08-17-2008 influenza virus vacc ine, unspecified formulation Adama Mendoza MD Work Phone: [facility] Work Phone: 03-05-2008 pneumococcal polysaccharide vaccine, 23 valent Danita Meraz PA-C Work Phone: [facility] 03-05-2008 Pneumococcal Vaccine [facility] Work Phone: 03-05-2008 pneumococcal vaccine , unspecified formulation [facility] 08-09-2007 influenza virus vacc ine, unspecified formulation Adama Mendoza MD Work Phone: [facility] Work Phone: 07-13-2007 zoster vaccine, live Adama Mendoza MD Work Phone: [facility] Work Phone: 08-20-2006 influenza virus vacc ine, unspecified formulation Adama Mendoza MD Work Phone: [facility] Work Phone: 05-12-2006 pneumococcal polysaccharide vaccine, 23 valent Adama Mendoza MD Work Phone: [facility] Work Phone: 06-18-1998 tetanus and diphther ia toxoids, adsorbed, preservative free, for adult use (2 Lf of tetanus toxoid and 2 Lf of diphtheria toxoid) Adama Mendoza MD Work Phone: [facility] Work Phone: Payers Date Payer Category Payer Self-pay [id number] 2021 Miscellaneous or Other THIRD PAR TY LIABILITY Member Subscriber Plan / Payer (Effective 2021-Present) Name: Lory Johnson Relation to Subscriber: Self Name: Lory Johnson Payer ID: Not on file Group ID: Not on file Type: Other [id number] Address: [address] [address] [place] [address] [id number] 2021 Unknown THIRD DEMOCRAT LIAB ILITY THIRD DEMOCRAT LIABILITY [id number] 2021-Present [phone] [id number] [address] [address] [place] [address] Other [id number] 2019 Private Health Insurance [facility] CHOICE PLUS [id number] 2019-Present [phone] [address] [place] [address] HMO [id number] 2019 Private Health Insurance [id number] 2019 Private Health Insurance [id number] 2008 Medicare MEDICARE MEDICAR E A AND B [id number] 2008-Present [phone] [place] [address] Medicare [id number] 2008 Medicare [id number] 2008 Medicare [id number] Medicare [id number] Unknown ANTHEM [id number] Unknown [id number] Unknown [id number] Social History Date Type Detail Facility Start: 02-01-2015 End: 06-15-2024 Tobacco smoking status NHIS Ex-smoker [facility] Start: 10-05-1953 End: 10-05-1978 History of tobacco use Current smoker [facility] Start: 10-05-1955 End: 10-05-1978 History of tobacco use Cigarette Smoker [facility] Start: 09-09-2021 End: 06-02-2025 Alcohol intake Current non-drinker of alcohol (finding) [facility] Start: 08-21-2009 End: 04-06-2023 Tobacco Comment quit 1978 [facility] Start: 1945 Sex Assigned At Not on file C [facility] Start: 01-19-2021 End: 08-04-2022 Exposure to SARS-CoV-2 (event) Not sure [facility] Start: 02-01-2015 End: 02-18-2023 Cigarettes smoked current (pack per day) - Reported 2.5 [facility] Work Phone: Start: 02-01-2015 End: 06-15-2024 Tobacco use and exposure Smokeless tobacco non-user [facility] Work Phone: Start: 07-24-2022 End: 09-26-2023 Tobacco smoking status [facility] Unknown if ever smoked [facility] Start: 02-11-2018 None [facility] Start: 03-03-2020 Spouse/ Signif icant Other [facility] Start: 02-13-2018 Cigarettes [facility] Start: 1945 Sex Assigned At Male [facility] Start: 02-18-2023 End: 04-14-2023 Tobacco use panel [facility] Work Phone: Start: 09-05-2012 Adult Depression Screening Assessment 0 [facility] Work Phone: How often to you hav e a drink containing alcohol? Never [facility] Has the [employer], or water company threatened to shut off services in your home in past 12Mo No [facility] (I/We) worried stacey er (my/our) food would run out before (I/we) got money to buy more. Never true [facility] Start: 09-21-2024 Tobacco smoking stat us OHIS Smokes tobacco daily (finding) [facility] Functional Status Date Assessment Result Facility 04-11-2025 Total score [AUDIT-C] 0 04/11/20 2:00 PM Ramon Bartlett MA [facility] 10-20-2024 Are you deaf, or do you have serious difficulty hearing No 10/20/2024 2:59 PM Arni Do RN No [facility] 10-20-2024 Are you blind, or do you have serious difficulty seeing, even when wearing glasses No 10/20/2024 2:59 PM Arin Do RN No [facility] 10-20-2024 Do you have serious difficulty walking or climbing stairs Yes 10/20/2024 2:59 PM Arin Do RN Yes [facility] 10-20-2024 Do you have difficul ty dressing or bathing Yes 10/20/2024 2:59 PM Arin Do, VAN Yes [facility] 10-20-2024 Because of a physica l, mental, or emotional condition, do you have difficulty doing errands alone such as visiting a physician's office or shopping Yes 10/20/2024 2:59 PM Arin Do, VAN Yes [facility] Mental Status Date Assessment Result Facility 10-20-2024 Because of a physica l, mental, or emotional condition, do you have serious difficulty concentrating, remembering, or making decisions Yes 10/20/2024 2:59 PM Arin Do, VAN Yes [facility] 09-26-2023 Cognitive function Voice/Name [facility] Work Phone: 06-17-2023 Cognitive function Awake;Follows Commands [facility] Work Phone: 07-24-2022 Cognitive function Awake;Alert;A ppropriate; Follows Commands [facility] Work Phone: Clinical Notes 10-07-2013 to 07-17-2025 Note Date & Type Note Facility 07-17-[address] [facility] 06-26-2025 Note HNO ID: [id number] Author: RAMON VALLE MA Service: ? Author Type: Finance Executive Type: Progress Notes Filed: 06/26/2025 12:11 Note Text: Scan on 06/23/2025 2:36 PM by Provider, Brandie PAMarielenaC: [facility] 06-23-2025 Progress note [facility] 06-23-2025 Progress note Note Date/Time June 23, 2025 2:18pm [facility] [address] [place], [place] [address] OFFICE VISIT Date of Service: 06/23/25 MR#: [id number] Acct: [id number] Name: NARA JOHNSON Rep #: [id number] : 1945 Provider: Dr. Nabila Morton MD Age/Sex: 80/M [place] [facility] Status: Signed HPI HPI History of Present Illness Details: Pleasant 80-year-old man with a history of coronary artery disease. He does have some dementia. He was diagnosed in 2013 and at that time he was noted to have inferior ischemia his cardiac catheterization demonstrated angiographicallynormal left main coronary artery, left anterior descending artery with mild proximal disease and eccentric 60% stenotic lesion, left circumflex artery with no significant disease and a dominant right coronary artery with a mid segment with 95% stenosis. His ejection fraction was preserved he underwent angioplastywith a drug-eluting stent placed to the mid left anterior descending artery. Hedid undergo a repeat left heart catheterization in October 2020 following his stress test which demonstrated mild inferior ischemia at 7.1 metabolic equivalents. It demonstrated distally occluded right coronary artery with [id number] collaterals, left anterior descending artery with 50% stenosis, circumflex artery with an ostial 60% stenosis in the proximal right coronary artery with 50% stenosis. Medical therapy was recommended. He has apparently done well since then denying any chest pain or shortness breath or paroxysmal nocturnal dyspnea pedal edema is been compliant with his medications. 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 Dinkey Mechanic Required: No Accompanied by: Significant Other Is patient in pain?: No Allergies atorvastatin (From Lipitor) Allergy (Verified 06/23/25 14:02) PT UNSURE OF REACTION azithromycin (From Zithromax) Allergy (Verified 06/23/25 14:02) Itching Beta-Blockers (Beta-Adrenergic Bloc Allergy (Verified 06/23/25 14:02) NEEDS FOLLOW-UP sildenafil (From Viagra) Allergy (Verified 06/23/25 14:02) PT UNSURE OF REACTION Exgtmej-ULQ-UsE Reductase Inhibitor (Nsoetag-Tmn-Cym Reductase Inhibitor) Allergy (Verified 06/23/25 14:02) Other ezetimibe (From Zetia) Adverse Reaction (Verified 06/23/25 14:02) PT UNSURE OF REACTION Medications ?Medication ?Instructions ?Recorded ?Confirmed ?Type multivitamin 1 tab PO DAILY vitamin 10/0406/23/25 History metoprolol succinate 50 mg 75 mg PO DAILY bp 02/10/18 06/23/25 History tablet,extended release 24 hr pravastatin 80 mg tablet 80 mg PO QHS cholesterol 06/2206/23/25 History losartan 100 mg tablet 100 mg PO DAILY bp ##0 02/1206/23/25 Rx solifenacin 5 mg tablet 5 mg PO DAILY overactive abi dder 08/17/20 06/23/25 History amlodipine 10 mg tablet 10 mg PO DAILY bp 09/11/20 0 06/23/25 History cinnamon bark 500 mg capsule 500 mg PO DAILY supplemen t 09/11/20 06/23/25 History donepezil 10 mg tablet 10 mg PO QHS memory 09/11/20 06/23/25 History nitroglycerin 0.4 mg sublingual 0.4 mg sublingual Q5-1 5M PRN 09/11/20 06/23/25 History tablet Cardiac/Chest Pain pantoprazole 40 mg tablet,delayed 40 mg PO DAILY stoma ch 09/11/20 06/23/25 History release alpha lipoic acid 200 mg capsule 200 mg PO DAILY see m d 09/12/21 06/23/25 History ascorbate calcium (vitamin C) 500 500 mg PO DAILY supp lement 09/12/21 06/23/25 History mg tablet cholecalciferol (vitamin D3) 25 25 mcg PO DAILY supple ment 04/28/24 06/23/25 History mcg (1,000 unit) capsule aspirin 81 mg tablet,delayed 81 mg PO DAILY blood thin ner 06/08/24 06/23/25 History release memantine 10 mg tablet 10 mg PO BID memory 06/08/24 06/23/25 History quetiapine 25 mg tablet (Seroquel) 25 mg PO QHS #30 ta bs 06/13/24 06/23/25 Rx Ejection fraction %: 65 Have you fallen in the past year?: No PFSH Medical History Obesity Old inferior wall myocardial infarction OAB (overactive bladder) Obstructive sleep apnea Rosacea Actinic keratoses Anemia Abdominal aortic aneurysm (AAA) Atherosclerotic heart disease of [place] coronary artery without angina pectoris Ischemic cerebrovascular accident (CVA) (02/10/18) Essential (primary) hypertension Dementia GERD (gastroesophageal reflux disease) HLD (hyperlipidemia) Prostate cancer Surgical History History of left heart catheterization (10/15/20) History of herniorrhaphy History of coronary artery stent placement (10/07/13) Family History Sister CAD (coronary artery disease) Mother CAD (coronary artery disease) Father Colon cancer Brother CAD (coronary artery disease) Social History Smoking Status: Current every day smoker tobacco type: cigarettes alcohol intake: never substance use type: does not use caffeine: Yes Type: coffee Number of servings: 3 ROS Const Const: Negative for fatigue, weakness, daytime sleepiness or difficulty sleeping ENT ENT: Negative for dizziness or Nosebleed/epistaxis Cardio Chest Pain: No Palpitations: Yes Edema: None Resp Respiratory: Negative for SOB with activity, SOB at rest, SOB orthopnea\SOB lying down or Cough GI GI: Negative nausea, vomiting or heartburn Neuro Neuro: Negative for dizziness, lightheadedness, near syncope or weakness Endo Endo: Negative for fatigue Cardiology Exam Const Appearance: cooperative, healthy appearing, no acute distress, well developed and well groomed Nutritional Appearance: average body habitus and well nourished Orientation: alert, awake and oriented x3 Head Head: normal to inspection, normocephalic and atraumatic Ears: hearing grossly normal bilaterally and external ears normal Nose: external nose normal, nares normal, nasal mucous membranes and turbinates normal, septum normal and no nasal discharge Face and Sinus: face symmetric Mouth: oral mucosae normal, tongue normal, oropharynx normal and moist mucous membranes Teeth and gingiva: dentition normal Throat: posterior oropharynx normal, tonsils normal and uvula midline Eyes General: appearance normal, both eyes and all related structures Eyelids: eyelids normal Conjunctivae: conjunctivae normal Pupils: PERRL, normal by confrontation and accommodation normal EOM: EOM intact bilaterally Neck Neck: normal visual inspection, trachea midline and no JVD JVD: +5 Carotids: normal carotid upstroke and bounding pulses Chest Chest inspection: normal inspection of the chest, symmetric chest movement and normal respiratory effort Auscultation: Bilateral: Clear to Auscultation Cardio Palpation: normal PMI Rate: regular rate Rhythm: regular rhythm Heart sounds: S1 normal, S2 normal and normal, physiologic split S2; Negative rub, gallop or murmur GI GI: normal to inspection, soft, no hepatosplenomegaly and bowel sounds present Neuro General: patient alert, patient awake, patient oriented x3, gait normal, moves all extremities and no focal sensory deficit Skin Skin: no rashes or lesions noted Extremities Pulses: Normal: Right Femoral Pulse, Left Femoral Pulse, Right Dorsalis Pedis Pulse, Left Dorsalis Pedis Pulse, Right Posterior Tibial Pulse, Left Posterior Tibial Pulse, Right Radial Pulse and Left Radial Pulse Lower Extremity Edema: None: Bilateral Musculoskel Musculoskeletal: No joint tenderness Psych Psychological: normal affect Supplemental Info Supplemental Information ECHOCARDIOGRAM 10/03/20: Interpretation Summary Normal LV size. Left ventricular systolic function is normal. The estimated ejection fraction is 65 %. Stage 1 diastolic dysfunction. Compared to previous study, the left ventricular systolic function is the same.. STRESS TEST 10/03/20: Conclusion: Mildly abnormal exercise stress test at a moderate workload with mild inferior ischemia. Preserved ejection fraction. CARDIAC CATHETERIZATION 10/15/20: CONCLUSIONS Totally occluded mid to distal right coronary artery with ukue-wz-yivoy collaterals and moderate disease noted in the left anterior descending artery and ostial circumflex artery.? Preserved ejection fraction. CORONARY ANGIOGRAPHY DOMINANCE:? Right Dominant LEFT HEART ASSESSMENT Left Ventricular Ejection Fraction: by LV Gram 60 % Normal LV wall motion Normal Left Ventricular systolic function LEFT MAIN: Mild calcification LEFT ANTERIOR DESCENDING ARTERY: MID LAD: Moderate luminal irregularities up to 50% CIRCUMFLEX ARTERY: Mild luminal irregularities less than 30% OSTIAL CIRC: 60 % Stenosis RAMUS: Mild luminal irregularities less than 30% RIGHT CORONARY ARTERY: Mild luminal irregularities less than 30% PROX RCA: Previously placed stent has an instent 50 % restenosis DISTAL RCA: is occluded COLLATERAL FLOW: Collateral flow from Left to Right Diagnostics: Electrocardiogram Echocardiogram Stress Test Stress Test Nuclear Medicine Cardiac Catheterization Chest X-Ray Abdomen/Pelvis CT Past Visits: Cardiology Visit Today Assessment and Plan Assessment and Plan (1) History of coronary artery stent placement: Status: Resolved Comment: XXB-CIF-Mau-Distal RCA w/ 2.25 x 28 mm Promus Stent and POBA-Ostial Stenosis in the Prox 1st Acute Marginal Artery 10/07/2013 Plan: He does have a history of previous coronary artery disease stenting. He is doing well with no symptomatology his last catheterization was as noted above. The plan is to continue him on the current medical therapy. (2) Essential (primary) hypertension: Status: Acute Plan: He does have a history of hypertension which is well controlled at the present time. No changes will be made with respect to his medication. (3) HLD (hyperlipidemia): Status: Acute Qualifiers: Hyperlipidemia type: unspecified Qualified Code(s): E78.5 - Hyperlipidemia, unspecified Plan: He tells me that you have been checking his lipid profile and they have been in the normal acceptable range. I would not recommend we make any changes at this time. Plan Details Follow Up: 1 Year (sd) Coding Level of Care Code Off vis,est,level 3 Diagnoses History of coronary artery stent placement Z95.5 Essential (primary) hypertension I10 Hyperlipidemia, unspecified hyperlipidemia type E78.5 Hyperlipidemia type: unspecified Coding Level of Care Code Off vis,est,level 3 Diagnoses History of coronary artery stent placement Z95.5 Essential (primary) hypertension I10 Hyperlipidemia, unspecified hyperlipidemia type E78.5 Hyperlipidemia type: unspecified Clinical Quality Measures Falls Risk Screening/Assistive Devices Have you fallen in the past year?: No Cardiac Ejection fraction %: 65 06/23/25 1426 <Electronically signed by Cayden Pappas> Date _ Cayden Morton MD Cosigner Signature: Date (if applicable) CC: Dr. Adama Mendoza MD ~ [employer] Work Phone: 1(849) 881-798809-08-2025 Telephone encounter Note* Telephone Encounter - Adama Mendoza MD - 06/12/2025 9:15 PM EDT The following approved medication requests have been transmitted electronically. Requested Prescriptions Signed Prescriptions Disp Refills melatonin 3 mg tablet 180 tablet 3 Sig: Take 2 tablets by mouth daily at bedtime. Authorizing Provider: ADAMA MENDOZA MD [facility]09-08-2025 Miscellaneous Notes* Telephone Encounter - Adama Mendoza MD - 06/12/2025 9:15 PM EDT The following approved medication requests have been transmitted electronically. Requested Prescriptions Signed Prescriptions Disp Refills melatonin 3 mg tablet 180 tablet 3 Sig: Take 2 tablets by mouth daily at bedtime. Authorizing Provider: ADAMA MENDOZA MD * Telephone Encounter - Nisa Olivier - 06/12/2025 11:23 AM EDT Prescription Refill Information The patient has been identified by name and date of : Yes Caregiver verified no other encounters exist for this prescription request: Yes Caregiver confirmed with patient/requestor that no other refills are due, in the near future, with this provider at this time: Yes The last office visit in the department: 04/11/25 Does the patient have a future office visit with this provider/department: Yes Requested Prescriptions Pending Prescriptions Disp Refills melatonin 3 mg tablet 180 tablet 1 Sig: Take 2 tablets by mouth daily at bedtime. No longer seeing Neurology, asking for PCP to fill. Nisa Puga [facility] June 12, 2025 11:23 AM [facility] Telephone encounter Note * Telephone Encounter - Nisa Olivier - 06/12/2025 11:23 AM EDT Prescription Refill Information The patient has been identified by name and date of : Yes Caregiver verified no other encounters exist for this prescription request: Yes Caregiver confirmed with patient/requestor that no other refills are due, in the near future, with this provider at this time: Yes The last office visit in the department: 04/11/25 Does the patient have a future office visit with this provider/department: Yes Requested Prescriptions Pending Prescriptions Disp Refills melatonin 3 mg tablet 180 tablet 1 Sig: Take 2 tablets by mouth daily at bedtime. No longer seeing Neurology, asking for PCP to fill. Nisa Puga [facility] June 12, 2025 11:23 AM [facility]08[facility]29[facility] History of Present illness Narrative* Dandy Faith - 06/02/2025 1:59 PM EDT Subjective: Patient presents to clinic c/o painful toenails. They state that the nails are especially painful with shoe gear and pressure. Patient states that nails 1-5 b/l are painful. No other pedal complaints at this time. Patient states no change in medications or medical history since last visit. Objective: Patient presents to clinic ambulating in sneakers Vasc: DP and PT pulses are nonpalpable bilateral. CFT is less than 5 seconds bilateral. Skin temperature is warm to cool proximal to distal bilateral. There is moderate edema or varicosities noted. Non-Invasive Vascular Laboratory [facility] Lower Extremity Arterial Physiology Study Bilateral/Complete Date of service/time: 04/12/2025 9:02:38 AM Name: MR. LORY JOHNSON Date of : 1945 Age: 80 years Gender: M Clinical Indication Decreased pulses. TECHNIQUE -------- An arterial physiological examination was performed, including measurement of blood pressures using continuous wave Doppler and recording of plethysmographic with or without Doppler waveforms at the below-mentioned limb segments. FINDINGS -------- RIGHT SIDE AT REST Right Doppler Waveforms Dorsalis pedis: Multiphasic. Post tibial: Multiphasic. Right Pressures Brachial: 127 mmHg Ankle dorsalis pedis: 106 mmHg MAURICE: 0.83 Ankle posterior tibial: 130 mmHg MAURICE: 1.02 Digit: 108 mmHg Right PVR Waveforms High thigh: Normal. Low thigh: Normal. Calf: Normal. Ankle: Mildly dampened. Transmetatarsal: Normal. Digit: Normal. LEFT SIDE AT REST Left Doppler Waveforms Dorsalis pedis: Monophasic. Post tibial: Multiphasic. Left Pressures Brachial: 126 mmHg Ankle dorsalis pedis: 113 mmHg MAURICE: 0.89 Ankle posterior tibial: 105 mmHg MAURICE: 0.83 Digit: 104 mmHg Left PVR Waveforms High thigh: Normal. Low thigh: Normal. Calf: Normal. Ankle: Mildly dampened. Transmetatarsal: Mildly dampened. Digit: Normal. IMPRESSION RIGHT SIDE Resting right ankle brachial index: 1.02 Right toe brachial index: 0.85 Normal ankle brachial index at rest in the right leg. Normal toe brachial index at rest in the right leg. Right ankle: Normal at rest. LEFT SIDE Resting left ankle brachial index: 0.89 Left toe brachial index: 0.82 Abnormal ankle brachial index at rest diagnostic of peripheral artery disease. Normal toe brachial index at rest in the left leg. Left ankle: Mild disease at rest. Left small vessel disease. Technologist: Margaret Amos [facility] Ordering physician: DADNY FAITH Interpreting physician: Deepak Heard MD, ZELDA Neuro: Protective sensation is absent to the foot and toes when tested with the 5.07 SWM bilateral.Vibratory sensation is absent at the hallux IPJ bilateral. The hallux is downgoing bilateral. Derm: Nails 1-5 b/l are painful, discolored-yellow, thick, crumbly, dystrophic and with subungal debris. Skin is of normal turgor, texture and hair growth is absent bilateral. There are no hyperkeratosis, ulcerations, scars, verruca or other lesions noted. Ortho: Muscle strength is 5/5 for all pedal groups tested. Ankle joint DF is decreased with the knee extended with no pain or crepitus noted. 1st MPJ ROM is decreased bilateral. Assessment: (B35.1) Onychomycosis (primary encounter diagnosis) (M79.675) Pain in toe of left foot (M79.674) Pain in toe of right foot (R09.89) Diminished pulses in lower extremity Plan: Patient was seen and evaluated. Nails 1-5 bilateral were debrided in length and thickness. Patient is to RTC in 3-4 months. Dandy Faith DPM documented in this encounterMer[facility] NoteSt[facility] History of Present illness Narrative* Ayesha Rosas MA - 06/01/2025 12:39 PM EDT POPULATION HEALTH NAVIGATION OUTREACH Action/FYI Upcoming appointment notes updated to include HCC gap closure Reason for Outreach Care Gap/HCC or Scheduling Wellness Visits Care Gaps due: N/A Patient Contacted: Unable or unnecessary to reach patient: HCC related Updated appointment notes Navigation Signature: Ayesha Rosas MA June 01, 2025 12:39 PM documented in this encounterMer[facility]08-18-2025 Telephone encounter Note * Telephone Encounter - Jeremías Villegas LPN - 05/22/2025 5:53 PM EDT 90 day rx with 1 refill [facility]. Spoke /c pt and notified of the same. [facility]08-18-2025 Miscellaneous Notes* Telephone Encounter - Jeremías Villegas LPN - 05/22/2025 5:53 PM EDT 90 day rx with 1 refill was [facility] to [facility] on 05/16/25. Spoke /c pt and notified of the same. * Telephone Encounter - Yolie Sarmiento - 05/22/2025 9:05 AM EDT Patient has been identified by name and date of : Yes, Spouse phones for refill(s): Requested Prescriptions Pending Prescriptions Disp Refills solifenacin (VESICARE) 5 mg tablet 90 tablet 1 Sig: Take 1 tablet by mouth once daily. Date of last office visit in primary care: 04/11/2025 Date of next office visit in primary care: 11/03/2025 Please advise. Thank you. Yolie Sarmiento. documented in this encounterMer[facility]08-18-2025 Telephone encounter Note * Telephone Encounter - Yolie Sarmiento - 05/22/2025 9:05 AM EDT Patient has been identified by name and date of : Yes, Spouse phones for refill(s): Requested Prescriptions Pending Prescriptions Disp Refills solifenacin (VESICARE) 5 mg tablet 90 tablet 1 Sig: Take 1 tablet by mouth once daily. Date of last office visit in primary care: 04/11/2025 Date of next office visit in primary care: 11/03/2025 Please advise. Thank you. Yolie Sarmiento. [facility]08-12-[facility] Telephone encounter Note* Telephone Encounter - Dedra Ayala MA - 05/16/2025 10:57 AM EDT The patient has been identified by name and date of : Yes Caregiver verified no other encounters exist for this prescription request: Yes Caregiver confirmed with patient/requestor that no other refills are due, in the near future, with this provider at this time: No The last office visit in the department: 04/11/2025 Does the patient have a future office visit with this provider/department: Yes 11/03/2025 Requested Prescriptions Pending Prescriptions Disp Refills solifenacin (VESICARE) 5 mg tablet 90 tablet 1 Sig: Take 1 tablet by mouth once daily. Dedra Ayala MA May 16, 2025 10:57 AM [facility]08-12-2025 Miscellaneous Notes* Telephone Encounter - Dedra Ayala MA - 05/16/2025 10:57 AM EDT The patient has been identified by name and date of : Yes Caregiver verified no other encounters exist for this prescription request: Yes Caregiver confirmed with patient/requestor that no other refills are due, in the near future, with this provider at this time: No The last office visit in the department: 04/11/2025 Does the patient have a future office visit with this provider/department: Yes 11/03/2025 Requested Prescriptions Pending Prescriptions Disp Refills solifenacin (VESICARE) 5 mg tablet 90 tablet 1 Sig: Take 1 tablet by mouth once daily. Dedra Ayala MA May 16, 2025 10:57 AM * Telephone Encounter - Jaci Harp - 05/16/2025 10:30 AM EDT Prescription Refill Information The patient has been identified by name and date of : Yes Caregiver verified no other encounters exist for this prescription request: Yes Caregiver confirmed with patient/requestor that no other refills are due, in the near future, with this provider at this time: Yes The last office visit in the department: 04-11-25 Does the patient have a future office visit with this provider/department: Yes Requested Prescriptions Pending Prescriptions Disp Refills solifenacin (VESICARE) 5 mg tablet 90 tablet 1 Sig: Take 1 tablet by mouth once daily. Jaci Salazar May 16, 2025 10:31 AM documented in this encounterMer[facility]08-12-2025 Telephone encounter Note * Telephone Encounter - Jaci Harp - 05/16/2025 10:30 AM EDT Prescription Refill Information The patient has been identified by name and date of : Yes Caregiver verified no other encounters exist for this prescription request: Yes Caregiver confirmed with patient/requestor that no other refills are due, in the near future, with this provider at this time: Yes The last office visit in the department: 04-11-25 Does the patient have a future office visit with this provider/department: Yes Requested Prescriptions Pending Prescriptions Disp Refills solifenacin (VESICARE) 5 mg tablet 90 tablet 1 Sig: Take 1 tablet by mouth once daily. Jaci Salazar May 16, 2025 10:31 AM [facility]07-17-[facility]25 Telephone encounter Note* Telephone Encounter - Ramon Valle MA - 04/20/2025 9:32 AM EDT Call to pt's and notified her of message below, she verbalized understanding. She did ask if okay to still take B12 vitamin. Discussed with PCP, who stated yes, notified her of this. Ramon Valle MA [facility]07-17-2025 Miscellaneous Notes* Telephone Encounter - Ramon Valle MA - 04/20/2025 9:32 AM EDT Call to pt's and notified her of message below, she verbalized understanding. She did ask if okay to still take B12 vitamin. Discussed with PCP, who stated yes, notified her of this. Ramon Valle MA * Telephone Encounter - Adama Mendoza MD - 04/19/2025 10:25 PM EDT Let know Tom's Vit B6 is fine. He does not need to go back on this vit. documented in this encounterMer[facility]07-16-2025 Telephone encounter Note * Telephone Encounter - Adama Mendoza MD - 04/19/2025 10:25 PM EDT Let know Tom's Vit B6 is fine. He does not need to go back on this vit. [facility]07-10-[facility] Telephone encounter Note* Telephone Encounter - Dedra Ayala MA - 04/13/2025 10:10 AM EDT Message left for Refugio to call back. Dedra Ayala MA [facility]07-10-2025 Miscellaneous Notes* Telephone Encounter - Dedra Ayala MA - 04/13/2025 10:10 AM EDT Message left for Refugio to call back. Dedra Ayala MA * Telephone Encounter - Adama Mendoza MD - 04/12/2025 9:39 PM EDT Let know (patient has dementia and will not remember to tell his ), his zinc is low again and needs to get back on the zinc pill and stay on it. The lab for the B6 had to be cancelled due to not being run properly. I placed a new order to have it repeated. All his other labs were ok except his lipids were elevated and typically he is good. Work on less fat in diet. documented in this encounterMer[facility]07-09-2025 Telephone encounter Note * Telephone Encounter - Adama Mendoza MD - 04/12/2025 9:39 PM EDT Let know (patient has dementia and will not remember to tell his ), his zinc is low again and needs to get back on the zinc pill and stay on it. The lab for the B6 had to be cancelled due to not being run properly. I placed a new order to have it repeated. All his other labs were ok except his lipids were elevated and typically he is good. Work on less fat in diet. [facility]07-09-[facility] Telephone encounter Note* Telephone Encounter - Adama Mendoza MD - 04/12/2025 4:48 PM EDT The following approved medication requests have been transmitted electronically. Requested Prescriptions Signed Prescriptions Disp Refills aspirin, enteric coated (ECOTRIN LOW STRENGTH) 81 mg EC tablet 90 tablet 3 Sig: Take 1 tablet by mouth once daily. Authorizing Provider: ADAMA MENDOZA MD [facility]07-09-2025 Miscellaneous Notes* Telephone Encounter - Adama Mendoza MD - 04/12/2025 4:48 PM EDT The following approved medication requests have been transmitted electronically. Requested Prescriptions Signed Prescriptions Disp Refills aspirin, enteric coated (ECOTRIN LOW STRENGTH) 81 mg EC tablet 90 tablet 3 Sig: Take 1 tablet by mouth once daily. Authorizing Provider: ADAMA MENDOZA MD * Telephone Encounter - Gi Santamaria - 04/12/2025 1:01 PM EDT Prescription Refill Information The patient has been identified by name and date of : Yes Caregiver verified no other encounters exist for this prescription request: Yes Caregiver confirmed with patient/requestor that no other refills are due, in the near future, with this provider at this time: Yes The last office visit in the department: 04-11-25 Does the patient have a future office visit with this provider/department: Yes Requested Prescriptions Pending Prescriptions Disp Refills aspirin, enteric coated (ECOTRIN LOW STRENGTH) 81 mg EC tablet 90 tablet 3 Sig: Take 1 tablet by mouth once daily. Gi Santamaria April 12, 2025 1:02 PM documented in this encounterMer[facility]07-09-2025 Telephone encounter Note * Telephone Encounter - Gi Santamaria - 04/12/2025 1:01 PM EDT Prescription Refill Information The patient has been identified by name and date of : Yes Caregiver verified no other encounters exist for this prescription request: Yes Caregiver confirmed with patient/requestor that no other refills are due, in the near future, with this provider at this time: Yes The last office visit in the department: 04-11-25 Does the patient have a future office visit with this provider/department: Yes Requested Prescriptions Pending Prescriptions Disp Refills aspirin, enteric coated (ECOTRIN LOW STRENGTH) 81 mg EC tablet 90 tablet 3 Sig: Take 1 tablet by mouth once daily. Gi Santamaria April 12, 2025 1:02 PM [facility]07-[facility]-20[facility] NoteSt[facility]07-[facility] History of Present illness Narrative* Adama Mendoza MD - 04/11/2025 1:51 PM EDT Images from the original note were not included. Lory Johnson is a 80 year old male here for a Medicare wellness visit. Medicare Health Risk Assessment General Health Good Exercise: Minutes/Day 30 min Exercise: Days/Week 7 days Alcohol: Daily Use Never Alcohol: Drinks/Day Patient does not drink Alcohol: 6 or more drinks Never Feel off balance Yes (possibly related to neuropathy) Concerns: Teeth/Dentures No Concerns: Sexual function No Troubled by feelings None of the above Frequency: Eating healthy diet Nearly every day ADLs requiring help Grocery shopping; Cooking; Bathing; Handling finances; Taking medications; Using the telephone; Driving Safety precautions in home/vehicle Yes Smoke, vape, chews tobacco No Difficulty hearing Yes (Unsure if selective, per .) Difficulty seeing No Current Providers Specialists: I have reviewed specialist-related care of the patient in the medical record. Medical/Family history review Reviewed and updated problem list, medical/surgical/family/social history, medications, and allergies. Opioid use review Opioid Medications (last 90 days) No data to display Anxiety/Depression screening Recommendation: no further intervention at this time Cognitive screening Cognitive screening reviewed and Patient has known cognitive impairment. Functional Observation Was the patient's Timed Up & Go test unsteady or >= 12 seconds? No Advance Care Planning Surrogate decision maker and/or advance care plan documented Measurements BP 136/80 (BP Site: Right Arm, BP Position: Sitting, BP Cuff Size: Regular Adult) Pulse 64 Resp16 Ht 171.5 cm (5' 7.5) Wt 91.5 kg (201 lb 12.8 oz) BMI 31.14 kg/m Vision Screening: Declines visual acuity screen - will take pt to have Eye Exam done. Assessment/Plan Medicare annual wellness visit, subsequent (Z00.00) - Counseled on healthy diet and regular exercise - Fall avoidance information provided - Personalized prevention plan provided See below Chief Complaint Patient presents with: Medicare Wellness Exam HPI Lory Johnson is a 80 year old male who presents here today for a routine follow up. Patient with Hx of HTN, elevated fasting blood sugar, CAD, GERD, NAIN, hyperlipidemia, dementia, Hx of prostate cancer, Hx of CVA, as well as those reviewed and addressed below and in ROS. Patient back with living with his and doing much better with this arrangement. No new issues or concerns. Per pressure sore on left butt check is resolved. Past medical history, appointments, medications, allergies reviewed. Previous Medical History PAST MEDICAL HISTORY Diagnosis Date 3-vessel CAD 11/03/2013 Abdominal aortic aneurysm (AAA) without rupture 11/08/2016 US: 11/2016 2.6 x 2.4 x 2.0 cm, Repeat in a year US: 02/2018 Stable, 03/2019 US said no AAA, US 08/2020 no AAA no further studies needed. Actinic Keratoses (Premalignant AK's) 08/16/2013 Advance directive discussed with patient 03/26/2022 Discussed 03/2022 Anemia Anterior dislocation of right shoulder 10/31/2022 CAD S/P percutaneous coronary angioplasty 11/02/2013 Chronic left shoulder pain 06/30/2018 CKD (chronic kidney disease) stage 3, GFR 30-59 ml/min ([facility]) 04/11/2024 Dementia without behavioral disturbance ([facility]) 05/15/2016 MMSE: 22 05/2016, MMSE: 06/2019, 23 Elevated fasting blood sugar 12/01/2018 Emphysema lung ([facility]) 10/23/2023 Essential hypertension, benign 05/12/2006 Ex-smoker 10/31/2016 Started at age 15, up to 1 PPD quite at age 34 Fam hx-ischem heart disease 08/21/2009 Sister, mother Family history of colon cancer in father 06/09/2018 GERD without esophagitis 12/14/2018 History of CVA (cerebrovascular accident) 02/16/2018 Right posterior internal capsule Impaired driving skills 08/16/2019 Per Occupational Therapy Community Mobility and IADL report patient not safe to drive nor should hereturn to driving. Lipoma of right forearm 05/05/2017 Living will on file 03/26/2022 DPA: Refugio () Malignant neoplasm of prostate ([facility]) 03/01/200802/09 PATH: Left Lobe: GS 7 ( 3+4) in 1/4 cores Right Lobe : GS 6 ( 3 +) in 3/5 cores External Beam Radiotherapy -- Dr. Rishabh Yao, Renetta Landry follow Mixed hyperlipidemia 12/03/2002 Muscle pain, lumbar 09/26/2019 Neck pain 04/18/2019 NAIN (obstructive sleep apnea) 06/09/2018 Wearing CPAP, Per Neurology (Dr. 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) 10/11/2024 Previous Surgical History PAST SURGICAL HISTORY Procedure Laterality Date 2D ECHO (EXEP) 02/11/2018 EF=65%, mild jain dysf, mildly enlarged LA, 2D ECHO (EXEP) 10/03/2020 EF=65%, mild Jain dysfunction, COLONOSCOPY FLX DX W/COLLJ SPEC WHEN PFRMD 02/2002 Colonoscopy COLONOSCOPY FLX DX W/COLLJ SPEC WHEN PFRMD 09/14/2007 normal COLONOSCOPY FLX DX W/COLLJ SPEC WHEN PFRMD 07/23/2012 normal COLONOSCOPY FLX DX W/COLLJ SPEC WHEN PFRMD 07/28/2018 Colonoscopy, repeat 5 years ESOPHAGOGASTRODUODENOSCOPY TRANSORAL DIAGNOSTIC 02/2002 EGD ESOPHAGOGASTRODUODENOSCOPY TRANSORAL DIAGNOSTIC 12/22/2002 hiatal hernia, distal esophagitis ESOPHAGOGASTRODUODENOSCOPY TRANSORAL DIAGNOSTIC 08/03/2015 EGD ESOPHAGOGASTRODUODENOSCOPY TRANSORAL DIAGNOSTIC 11/15/2015 EGD ESOPHAGOGASTRODUODENOSCOPY TRANSORAL DIAGNOSTIC 08/13/2020 EGD HEART CATHETERIZATION 2013 Angioplasty, Promus stent to right coronary LEXISCAN STRESS TEST 10/03/[address] Morton RPR UMBILICAL HRNA 5 YRS/> REDUCIBLE 2002 Family History FAMILY HISTORY Problem Relation Age of Onset Prostate Cancer Father Colon Cancer Father Dx in his 70s Heart Father Had heart issues per patient Heart Sister had bypass surgery (mid-40's) Heart Mother Had heart issues per patient Heart Brother had bypass surgery Patient Allergies ALLERGIES Allergen Reactions Zithromax [Azithrom* Itching Beta-Blockers (Beta* Unknown Lipitor [Atorvastat* Intolerance Viagra [Sildenafil] Unknown Zetia [Ezetimibe] Mental Status Change Current Medications Current Outpatient Medications on File Prior to Visit Medication Sig memantine (NAMENDA) 10 mg tablet Take 1 tablet by mouth two times a day. amLODIPine (NORVASC) 10 mg tablet Take 1 tablet by mouth once daily. magnesium oxide (MAG-OX) 400 mg (241.3 mg magnesium) tablet Take 1 tablet by mouth two times a day. metoprolol succinate ER (TOPROL XL) 25 mg 24 hr tablet Take 3 tablets by mouth once daily. pantoprazole DR (PROTONIX) 40 mg tablet Take 1 tablet by mouth daily before breakfast. Take on empty stomach, 1/2 hr before meal. donepezil (ARICEPT) 10 mg tablet Take 1 tablet by mouth daily at bedtime. melatonin 3 mg tablet Take 2 tablets by mouth daily at bedtime. nitroglycerin sublingual (NITROSTAT) 0.4 mg SL tablet Dissolve 1 tablet under the tongue every 5 minutes as needed for chest pain. fluticasone (FLONASE) 50 mcg/actuation nasal spray Use 2 Sprays in each nostril once daily. (Patient not taking: Reported on 12/05/2024) solifenacin (VESICARE) 5 mg tablet Take 1 tablet by mouth once daily. multivit-min/ferrous fumarate (MULTI VITAMIN ORAL) Take 1 tablet by mouth once daily. CINNAMON BARK ORAL Take 1,000 mg by mouth once daily. pyridoxine, vitamin B6, (VITAMIN B6) 50 mg tablet Take 3 tablets by mouth once daily for 14 doses. (Patient not taking: Reported on 02/24/2025) zinc sulfate 220 mg (50 mg zinc) capsule Take 1 capsule by mouth once daily for 12 doses. (Patient not taking: Reported on 02/24/2025) aspirin, enteric coated (ECOTRIN LOW STRENGTH) 81 mg EC tablet Take 1 tablet by mouth once daily. cholecalciferol (VITAMIN D3) 1,000 unit tab tablet Take 2,000 Units by mouth once daily. Patient should start on October 22, 2024. ASCORBIC ACID, VITAMIN C, ORAL Take 500 mg by mouth once daily. Patient should start on October. Blood Pressure Cuff - Home Use BLOOD PRESSURE CUFF FOR HOME USE. No current facility-administered medications on file prior to visit. Social History Social History Tobacco Use Smoking status: Former Current packs/day: 0.00 Average packs/day: 2.5 packs/day for 25.0 years (62.5 ttl pk-yrs) Types: Cigarettes Start date: 10/05/1953 Quit date: 10/05/1978 Years since quittin.5 Smokeless tobacco: Never Tobacco comments: quit 1978 Vaping Use Vaping status: Never Used Substance Use Topics Alcohol use: No Drug use: No Review of Symptoms REVIEW OF SYSTEMS GENERAL: No weight loss, malaise or fevers HEENT: Negative for frequent or significant headaches, No changes in hearing or vision, no nose bleeds or other nasal problems NECK: Negative for lumps, goiter, pain and significant neck swelling RESPIRATORY: Negative for hemoptysis. Rodriguez a cough productive of sputum again but is not sure ifcolored. Having occasional wheezing. No COPD, dyspnea or shortness of breath CARDIOVASCULAR: Negative for chest pain, leg swelling, hypertension, CHF or palpitations GI: No nausea, vomiting, or diarrhea, No heartburn or reflux symptoms, and no blood : No history of dysuria, frequency or blood. MUSCULOSKELETAL: Negative for new or changes in his typical joint pain or swelling, back pain or muscle pain SKIN: Negative for lesions, rash, and itching PSYCH: Negative for sleep disturbance, mood disorder and recent psychosocial stressors HEMATOLOGY/LYMPHOLOGY: Negative for prolonged bleeding, bruising easily or swollen nodes ENDOCRINE: Negative for cold or heat intolerance, polyuria, polydipsia and goiter NEURO: No history of headaches, syncope, paralysis, seizures or tremors SEE HPI EXAM: BP 136/80 (BP Site: Right Arm, BP Position: Sitting, BP Cuff Size: Regular Adult) Pulse 64 Resp16 Ht 171.5 cm (5' 7.5) Wt 91.5 kg (201 lb 12.8 oz) BMI 31.14 kg/m Last 5 Encounter Wt Readings: Date: Wt: 04/11/2025 91.5 kg (201 lb 12.8 oz) 01/09/2025 92 kg (202 lb 13.2 oz) 12/05/2024 90.7 kg (200 lb) 11/25/2024 90.7 kg (200 lb) 11/23/2024 91.2 kg (201 lb) General Appearance: Well appearing, alert, in no acute distress, well-hydrated, well nourished.. Skin: Skin color, texture, turgor normal, no suspicious rashes or lesions. Pressure sore left butt cheek resolved. Head: Normocephalic, no masses, lesions, tenderness or abnormalities. Eyes: Anicteric sclera. Pupils are equally round and reactive to light. Extraocular movements are intact. . Ears: External ears, TM's normal, canals clear. Nose/Sinuses: Nares normal, septum midline, mucosa normal, no drainage or sinus tenderness. Oropharynx: Lips, mucosa, and tongue normal, teeth and gums normal, oropharynx normal. Neck: Supple, no adenopathy; thyroid symmetric, normal size, no bruits. Lungs: Lungs clear to auscultation. No wheezing, rhonchi, rales.. Heart: RRR without murmur, gallop, or rubs. No ectopy. Abdomen: Normal abdominal exam, Abdomen soft, non-tender. Bowel sounds normal. No masses, organomegaly. Extremities: No deformities, edema, skin discoloration, Good capillary refill. . Musculoskeletal: Muscular strength intact, No joint swelling, deformity, or tenderness. Peripheral Pulses: Normal. Neurologic: Gait normal. Reflexes normal and symmetric. Sensation to light touch and crainal nerves2-12 intact.. . Health Maintenance List Advance Directive Discussion due on 10/05/2024 Medicare Annual Wellness Visit due on 04/11/2025 LDL Cholesterol due on 05/10/2025 RSV Vaccine(1 - 1-dose 75+ series) due on 04/11/2025 Covid-19 Vaccine( season) due on 04/11/2026 Influenza Vaccine(1) due on 06/05/2025 Diabetes Screening due on 11/13/2027 DTaP,Tdap,Td Vaccine(3 - Td or Tdap) due on 04/09/2028 Shingrix Vaccine Completed Pneumococcal Vaccine: 50+ Completed Colorectal Cancer Screening Discontinued Data reviewed Assessment and Plan Requested Prescriptions Signed Prescriptions Disp Refills metoprolol succinate ER (TOPROL XL) 25 mg 24 hr tablet 270 tablet 1 Sig: Take 3 tablets by mouth once daily. F/u 6 months routine check BMP, Lipid and A1c prior. Adama LANTIGUA I spent a total of 40 minutes on the date of the service which included preparing to see the patient, [id number] patient care, completing clinical documentation, performing a medically appropriate examination, counseling and educating the patient/family/caregiver and ordering medications, tests, or procedures. Recording using IVDesk software for draft documentation of the visit was discussed with the patient/authorized brand representative; all questions welcomed and answered. Patient/authorized brand representative agreed to proceed SENSITIVE EXAMINATION CONSENT: The sensitive examination was discussed with the Patient or Patient's Authorized Discharge Planner. Asapplicable, any other physician, advance practice provider, medical student, or other health professional student that will be observing or involved in the sensitive examination for educational or training purposes was discussed with the Patient or Authorized Discharge Planner. The Patient or Authorized Discharge Planner has agreed to proceed with the sensitive examination. documented in this encounterMer[facility] Telephone encounter Note * Telephone Encounter - Nancy Tillman LPN - 03/29/2025 4:12 PM EDT Prescriber sent RX to [facility] in [place]. Nancy Tillman LPN [facility]06-[facility] Miscellaneous Notes* Telephone Encounter - Nancy Tillman LPN - 03/29/2025 4:12 PM EDT Prescriber sent RX to [facility] in [place]. Nancy Tillman LPN * Telephone Encounter - Hilda Bravo LPN - 03/29/2025 1:25 PM EDT Forwarded to Neurology as Dr. Fidelina park to prescribe. * Telephone Encounter - Gi Santamaria - 03/29/2025 1:15 PM EDT Prescription Refill Information The patient has been identified by name and date of : Yes Caregiver verified no other encounters exist for this prescription request: Yes Caregiver confirmed with patient/requestor that no other refills are due, in the near future, with this provider at this time: Yes The last office visit in the department: 01-09-25 Does the patient have a future office visit with this provider/department: Yes Requested Prescriptions Pending Prescriptions Disp Refills memantine (NAMENDA) 10 mg tablet 180 tablet 1 Sig: Take 1 tablet by mouth two times a day. Gi Santamaria March 29, 2025 1:16 PM documented in this encounterMer[facility]06-25-2025 Telephone encounter Note * Telephone Encounter - Hilda Bravo LPN - 03/29/2025 1:25 PM EDT Forwarded to Neurology as Dr. Fidelina park to prescribe. [facility]06-[facility] Telephone encounter Note* Telephone Encounter - Gi Santamaria - 03/29/2025 1:15 PM EDT Prescription Refill Information The patient has been identified by name and date of : Yes Caregiver verified no other encounters exist for this prescription request: Yes Caregiver confirmed with patient/requestor that no other refills are due, in the near future, with this provider at this time: Yes The last office visit in the department: 01-09-25 Does the patient have a future office visit with this provider/department: Yes Requested Prescriptions Pending Prescriptions Disp Refills memantine (NAMENDA) 10 mg tablet 180 tablet 1 Sig: Take 1 tablet by mouth two times a day. Gi Santamaria March 29, 2025 1:16 PM [facility]06-12-[facility] Telephone encounter Note* Telephone Encounter - Salinas Hernandez RN - 03/16/2025 7:12 PM EDT Pt's called and is notified of providers message and instructions. She voices understanding. She states she only has her phone, no computer or anything. She states she isn't going to have him doit. She states he still know quite a bit, and helps get the groceries, and can pretty much shave himself on his own. Salinas Hernandez RN [facility]06-12-2025 Miscellaneous Notes* Telephone Encounter - Salinas Hernandez RN - 03/16/2025 7:12 PM EDT Pt's called and is notified of providers message and instructions. She voices understanding. She states she only has her phone, no computer or anything. She states she isn't going to have him doit. She states he still know quite a bit, and helps get the groceries, and can pretty much shave himself on his own. Salinas Hernandez RN * Telephone Encounter - Claude Cardenas APRN.RACHELLE - 03/16/2025 2:33 PM EDT Please let patient know th BACH test is an additional tool we use to evaluate cognitive impairment.We would encourage patient to complete testing but it is optional. * Telephone Encounter - Chavez Plata LPN - 03/16/2025 1:50 PM EDT Please see message below. Chavez Plata LPN * Telephone Encounter - Licha Vázquez PSS - 03/16/2025 1:24 PM EDT Patient's called regarding a message her has received to take a Brief Assessment of Cognitive Health (BACH) test. Spouse is confused because they are no longer following with Neurology, so she is wondering if this test is necessary. documented in this encounterMer[facility]06-12-2025 Telephone encounter Note * Telephone Encounter - Claude Cardenas APRN.CNP - 03/16/2025 2:33 PM EDT Please let patient know th BACH test is an additional tool we use to evaluate cognitive impairment.We would encourage patient to complete testing but it is optional. [facility] Telephone encounter Note* Telephone Encounter - Chavez Plata LPN - 03/16/2025 1:50 PM EDT Please see message below. Chavez Plata LPN [facility]06-12-[facility]25 Telephone encounter Note* Telephone Encounter - Licha Vázquez PSS - 03/16/2025 1:24 PM EDT Patient's called regarding a message her has received to take a Brief Assessment of Cognitive Health (BACH) test. Spouse is confused because they are no longer following with Neurology, so she is wondering if this test is necessary. [facility] Telephone encounter Note* Telephone Encounter - [place] Nisa Salazar - 03/15/2025 11:13 AM EDT Prescription Refill Information The patient has been identified by name and date of : Yes Caregiver verified no other encounters exist for this prescription request: Yes Caregiver confirmed with patient/requestor that no other refills are due, in the near future, with this provider at this time: Yes The last office visit in the department: 01/09/25 Does the patient have a future office visit with this provider/department: Yes Requested Prescriptions Pending Prescriptions Disp Refills amLODIPine (NORVASC) 10 mg tablet 90 tablet 1 Sig: Take 1 tablet by mouth once daily. Nisa Salazar March 15, 2025 11:14 AM [facility]06-11-2025 Miscellaneous Notes* Telephone Encounter - [place] Nisa Salazar - 03/15/2025 11:13 AM EDT Prescription Refill Information The patient has been identified by name and date of : Yes Caregiver verified no other encounters exist for this prescription request: Yes Caregiver confirmed with patient/requestor that no other refills are due, in the near future, with this provider at this time: Yes The last office visit in the department: 01/09/25 Does the patient have a future office visit with this provider/department: Yes Requested Prescriptions Pending Prescriptions Disp Refills amLODIPine (NORVASC) 10 mg tablet 90 tablet 1 Sig: Take 1 tablet by mouth once daily. Nisa Salazar March 15, 2025 11:14 AM documented in this encounterMer[facility]05-23-2025 [facility] NoteSt[facility]04-22-2025 Telephone encounter Note* Telephone Encounter - Yolie Sarmiento - 01/24/2025 12:54 PM EDT Patient has been identified by name and date of : Yes Spouse phones for refill(s): Requested Prescriptions Pending Prescriptions Disp Refills magnesium oxide (MAG-OX) 400 mg (241.3 mg magnesium) tablet 60 tablet 0 Sig: Take 1 tablet by mouth two times a day. Date of last office visit in primary care: 01/09/2025 Date of next office visit in primary care: 04/11/2025 Please advise. Thank you. Yolie Sarmiento. [facility]04-22-2025 Miscellaneous Notes* Telephone Encounter - Yloie Sarmiento - 01/24/2025 12:54 PM EDT Patient has been identified by name and date of : Yes Spouse phones for refill(s): Requested Prescriptions Pending Prescriptions Disp Refills magnesium oxide (MAG-OX) 400 mg (241.3 mg magnesium) tablet 60 tablet 0 Sig: Take 1 tablet by mouth two times a day. Date of last office visit in primary care: 01/09/2025 Date of next office visit in primary care: 04/11/2025 Please advise. Thank you. Yolie Sarmiento. documented in this encounterMer[facility]04-14-2025 Telephone encounter Note * Telephone Encounter - Adama Mendoza MD - 01/16/2025 5:25 PM EDT The following approved medication requests have been transmitted electronically. Requested Prescriptions Signed Prescriptions Disp Refills metoprolol succinate ER (TOPROL XL) 25 mg 24 hr tablet 270 tablet 1 Sig: Take 3 tablets by mouth once daily. Authorizing Provider: ADAMA MENDOZA MD [facility]04-14-2025 Miscellaneous Notes* Telephone Encounter - Adama Mendoza MD - 01/16/2025 5:25 PM EDT The following approved medication requests have been transmitted electronically. Requested Prescriptions Signed Prescriptions Disp Refills metoprolol succinate ER (TOPROL XL) 25 mg 24 hr tablet 270 tablet 1 Sig: Take 3 tablets by mouth once daily. Authorizing Provider: ADAMA MENDOZA MD * Telephone Encounter - Chavez Plata LPN - 01/16/2025 2:08 PM EDT Prescription Refill Information The patient has been identified by name and date of : Yes Caregiver verified no other encounters exist for this prescription request: Yes Caregiver confirmed with patient/requestor that no other refills are due, in the near future, with this provider at this time: Yes The last office visit in the department: 01/09/25 Does the patient have a future office visit with this provider/department: Yes Requested Prescriptions Pending Prescriptions Disp Refills metoprolol succinate ER (TOPROL XL) 25 mg 24 hr tablet 270 tablet 1 Sig: Take 3 tablets by mouth once daily. Chavez Plata LPN January 16, 2025 2:08 PM * Telephone Encounter - Brianna Rosales - 01/16/2025 2:00 PM EDT Prescription Refill Information The patient has been identified by name and date of : Yes Caregiver verified no other encounters exist for this prescription request: Yes Caregiver confirmed with patient/requestor that no other refills are due, in the near future, with this provider at this time: Yes The last office visit in the department: 01-09-25 Does the patient have a future office visit with this provider/department: Yes Requested Prescriptions Pending Prescriptions Disp Refills metoprolol succinate ER (TOPROL XL) 25 mg 24 hr tablet 90 tablet 3 Sig: Take 3 tablets by mouth once daily. Brianna Salazar January 16, 2025 2:00 PM documented in this encounterMer[facility]04-14-2025 Telephone encounter Note * Telephone Encounter - Chavez Plata LPN - 01/16/2025 2:08 PM EDT Prescription Refill Information The patient has been identified by name and date of : Yes Caregiver verified no other encounters exist for this prescription request: Yes Caregiver confirmed with patient/requestor that no other refills are due, in the near future, with this provider at this time: Yes The last office visit in the department: 01/09/25 Does the patient have a future office visit with this provider/department: Yes Requested Prescriptions Pending Prescriptions Disp Refills metoprolol succinate ER (TOPROL XL) 25 mg 24 hr tablet 270 tablet 1 Sig: Take 3 tablets by mouth once daily. Chavez Plata LPN January 16, 2025 2:08 PM [facility]04-14-2025 Telephone encounter Note* Telephone Encounter - Brianna Rosales - 01/16/2025 2:00 PM EDT Prescription Refill Information The patient has been identified by name and date of : Yes Caregiver verified no other encounters exist for this prescription request: Yes Caregiver confirmed with patient/requestor that no other refills are due, in the near future, with this provider at this time: Yes The last office visit in the department: 01-09-25 Does the patient have a future office visit with this provider/department: Yes Requested Prescriptions Pending Prescriptions Disp Refills metoprolol succinate ER (TOPROL XL) 25 mg 24 hr tablet 90 tablet 3 Sig: Take 3 tablets by mouth once daily. Brianna Salazar January 16, 2025 2:00 PM [facility] Work Phone: [phone] Telephone encounter Note* Telephone Encounter - Lia To MA - 01/09/2025 1:46 PM EDT Spoke with son jeff(chart states okay to speak with) son notified and verbalized understanding. Son states he will give message to pt Lia To MA [facility]04-07-2025 Miscellaneous Notes* Telephone Encounter - Lia To MA - 01/09/2025 1:46 PM EDT Spoke with son gloryprudence(chart states okay to speak with) son notified and verbalized understanding. Son states he will give message to pt Lia To MA * Telephone Encounter - Claude Cardenas APRN.CNP - 01/09/2025 10:10 AM EDT Please let patient know his xrays are negative. He likely sprained his wrist and pain is likely from the impact of the fall. If patient continues to have pain after 2-4 weeks patient should follow upin office. documented in this encounterMer[facility]04-07-2025 Telephone encounter Note * Telephone Encounter - Claude Cardenas APRN.CNP - 01/09/2025 10:10 AM EDT Please let patient know his xrays are negative. He likely sprained his wrist and pain is likely from the impact of the fall. If patient continues to have pain after 2-4 weeks patient should follow upin office. [facility]04-07-2025 History of Present illness Narrative* Jana Tejeda RT(R) - 01/09/2025 9:00 AM EDT Radiology Service Progress Note PATIENT NAME: Lory Johnson DATE OF SERVICE: January 09, 2025 TIME: 8:58 AM PATIENT IDENTITY VERIFICATION COMPLETED USING TWO (2) IDENTIFIERS: Name and Date of confirmedby patient verbally. FALL SCREENING: Has the patient had 2 falls in the last year or 1 fall with injury or currently using an Ambulatory Assistive Device (Walker, Cane, Wheelchair, Crutches, etc.)? Yes, Patient High Riskfor Falls What interventions were put in place to prevent falls during this visit? Instructed Patient to Remain Seated (Not on Exam Table) Until Exam and Increased Observations by Caregivers PATIENT GENDER DATA: Assigned male at PATIENT RELEVANT IMPLANT DATA REVIEWED: Yes PATIENT PRESENTS WITH AN IMPLANTABLE OR ATTACHED CLINICAL PROGRAM COORDINATOR: No RADIOLOGY DEPARTMENT: General X-ray: Exam(s) Completed: Pelvis X-Ray: Pelvis with Hip Right Upper Extremity X-Ray(s): Shoulder, AP / TRUE AP / AXILLARY right , Forearm, right , and Wrist, right PERIPHERAL IV DATA: Not applicable SIGNED BY: RT Hector(R) January 09, 2025 8:58 AM documented in this encounterMer[facility]04-07-2025 NoteSt[facility]04-07-2025 NoteSt[facility]04-07-2025 History of Present illness Narrative* Claude Cardenas APRN.CNP - 01/09/2025 8:38 AM EDT Chief Complaint Patient presents with: Fall: Fall Thursday- right hand and shoulder pain HPI Lory Johnson is a 79 year old male who presents here today for Above Complaints.. Patient presents for right hand and arm injury. Patient reports he fell over the weekend landing onhis right arm. Patient now reports his right shoulder and hand are painful and swollen. Patient's also reports patient has been limping and favoring right hip as he landed on his right side. Past medical history, appointments, medications, allergies reviewed. Previous Medical History PAST MEDICAL HISTORY Diagnosis Date 3-vessel CAD 11/03/2013 Abdominal aortic aneurysm (AAA) without rupture ([facility]) 11/08/2016 US: 11/2016 2.6 x 2.4 x 2.0 cm, Repeat in a year US: 02/2018 Stable, 03/2019 US said no AAA, US 08/2020 no AAA no further studies needed. Actinic Keratoses (Premalignant AK's) 08/16/2013 Advance directive discussed with patient 03/26/2022 Discussed 03/2022 Anemia Anterior dislocation of right shoulder 10/31/2022 CAD S/P percutaneous coronary angioplasty 11/02/2013 Chronic left shoulder pain 06/30/2018 CKD (chronic kidney disease) stage 3, GFR 30-59 ml/min ([facility]) 04/11/2024 Dementia without behavioral disturbance ([facility]) 05/15/2016 MMSE: 22 05/2016, MMSE: 06/2019, 23 Elevated fasting blood sugar 12/01/2018 Emphysema lung ([facility]) 10/23/2023 Essential hypertension, benign 05/12/2006 Ex-smoker 10/31/2016 Started at age 15, up to 1 PPD quite at age 34 Fam hx-ischem heart disease 08/21/2009 Sister, mother Family history of colon cancer in father 06/09/2018 GERD without esophagitis 12/14/2018 History of CVA (cerebrovascular accident) 02/16/2018 Right posterior internal capsule Impaired driving skills 08/16/2019 Per Occupational Therapy Community Mobility and IADL report patient not safe to drive nor should hereturn to driving. Lipoma of right forearm 05/05/2017 Living will on file 03/26/2022 DPA: [place] () Malignant neoplasm of prostate (HCC) 03/01/200802/09 PATH: Left Lobe: GS 7 ( 3+4) in 1/4 cores Right Lobe : GS 6 ( 3 +) in 3/5 cores External Beam Radiotherapy -- Dr. Rishabh Yao, Renetta Landry follow Mixed hyperlipidemia 12/03/2002 Muscle pain, lumbar 09/26/2019 Neck pain 04/18/2019 NAIN (obstructive sleep apnea) 06/09/2018 Wearing CPAP, Per Neurology (Dr. 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) 10/11/2024 Previous Surgical History PAST SURGICAL HISTORY Procedure Laterality Date 2D ECHO (EXEP) 02/11/2018 EF=65%, mild jain dysf, mildly enlarged LA, 2D ECHO (EXEP) 10/03/2020 EF=65%, mild Jain dysfunction, COLONOSCOPY FLX DX W/COLLJ SPEC WHEN PFRMD 02/2002 Colonoscopy COLONOSCOPY FLX DX W/COLLJ SPEC WHEN PFRMD 09/14/2007 normal COLONOSCOPY FLX DX W/COLLJ SPEC WHEN PFRMD 07/23/2012 normal COLONOSCOPY FLX DX W/COLLJ SPEC WHEN PFRMD 07/28/2018 Colonoscopy, repeat 5 years ESOPHAGOGASTRODUODENOSCOPY TRANSORAL DIAGNOSTIC 02/2002 EGD ESOPHAGOGASTRODUODENOSCOPY TRANSORAL DIAGNOSTIC 12/22/2002 hiatal hernia, distal esophagitis ESOPHAGOGASTRODUODENOSCOPY TRANSORAL DIAGNOSTIC 08/03/2015 EGD ESOPHAGOGASTRODUODENOSCOPY TRANSORAL DIAGNOSTIC 11/15/2015 EGD ESOPHAGOGASTRODUODENOSCOPY TRANSORAL DIAGNOSTIC 08/13/2020 EGD HEART CATHETERIZATION 2014 Angioplasty, Promus stent to right coronary LEXISCAN STRESS TEST 10/03/[address] Morton RPR UMBILICAL HRNA 5 YRS/> REDUCIBLE 2002 Family History FAMILY HISTORY Problem Relation Age of Onset Prostate Cancer Father Colon Cancer Father Dx in his 70s Heart Father Had heart issues per patient Heart Sister had bypass surgery (mid-40's) Heart Mother Had heart issues per patient Heart Brother had bypass surgery Patient Allergies ALLERGIES Allergen Reactions Zithromax [Azithrom* Itching Beta-Blockers (Beta* Unknown Lipitor [Atorvastat* Intolerance Viagra [Sildenafil] Unknown Zetia [Ezetimibe] Mental Status Change Current Medications Current Outpatient Medications on File Prior to Visit Medication Sig pantoprazole DR (PROTONIX) 40 mg tablet Take 1 tablet by mouth daily before breakfast. Take on empty stomach, 1/2 hr before meal. metoprolol succinate ER (TOPROL XL) 25 mg 24 hr tablet Take 3 tablets by mouth once daily. magnesium oxide (MAG-OX) 400 mg (241.3 mg magnesium) tablet Take 1 tablet by mouth two times a day. donepezil (ARICEPT) 10 mg tablet Take 1 tablet by mouth daily at bedtime. memantine (NAMENDA) 10 mg tablet Take 1 tablet by mouth two times a day. melatonin 3 mg tablet Take 2 tablets by mouth daily at bedtime. nitroglycerin sublingual (NITROSTAT) 0.4 mg SL tablet Dissolve 1 tablet under the tongue every 5 minutes as needed for chest pain. fluticasone (FLONASE) 50 mcg/actuation nasal spray Use 2 Sprays in each nostril once daily. (Patient not taking: Reported on 12/05/2024) solifenacin (VESICARE) 5 mg tablet Take 1 tablet by mouth once daily. multivit-min/ferrous fumarate (MULTI VITAMIN ORAL) Take 1 tablet by mouth once daily. CINNAMON BARK ORAL Take 1,000 mg by mouth once daily. pyridoxine, vitamin B6, (VITAMIN B6) 50 mg tablet Take 3 tablets by mouth once daily for 14 doses. zinc sulfate 220 mg (50 mg zinc) capsule Take 1 capsule by mouth once daily for 12 doses. amLODIPine (NORVASC) 10 mg tablet Take 1 tablet by mouth once daily. aspirin, enteric coated (ECOTRIN LOW STRENGTH) 81 mg EC tablet Take 1 tablet by mouth once daily. cholecalciferol (VITAMIN D3) 1,000 unit tab tablet Take 2,000 Units by mouth once daily. Patient should start on October 22, 2024. ASCORBIC ACID, VITAMIN C, ORAL Take 500 mg by mouth once daily. Patient should start on October. Blood Pressure Cuff - Home Use BLOOD PRESSURE CUFF FOR HOME USE. No current facility-administered medications on file prior to visit. Social History Social History Tobacco Use Smoking status: Former Current packs/day: 0.00 Average packs/day: 2.5 packs/day for 25.0 years (62.5 ttl pk-yrs) Types: Cigarettes Start date: 10/05/1953 Quit date: 10/05/1978 Years since quittin.2 Smokeless tobacco: Never Tobacco comments: quit 1978 Vaping Use Vaping status: Never Used Substance Use Topics Alcohol use: No Drug use: No Review of Symptoms REVIEW OF SYSTEMS SEE HPI EXAM: BP 155/66 Pulse 76 Wt 92 kg (202 lb 13.2 oz) BMI 29.95 kg/m General Appearance: Well appearing, alert, in no acute distress, well-hydrated, well nourished.. Extremities: Positive findings: joint location: on right shoulder painful movement and injury, on right elbow stiffness, on right wrist pain, swelling, painful movement, loss of ROM, and injury, on right mcp(s) stiffness. Health Maintenance List Advance Directive Discussion due on 10/05/2024 RSV Vaccine(1 - 1-dose 75+ series) due on 04/11/2025 Covid-19 Vaccine( season) due on 02/13/2025 LDL Cholesterol due on 05/10/2025 Diabetes Screening due on 11/13/2027 DTaP,Tdap,Td Vaccine(3 - Td or Tdap) due on 04/09/2028 Spirometry Completed Influenza Vaccine Completed Shingrix Vaccine Completed Pneumococcal Vaccine: 50+ Completed Colorectal Cancer Screening Discontinued ASSESSMENT/PLAN: 1. Fall, initial encounter - ICD9: E888.9, ICD10: W19.XXXA (primary diagnosis) - XR HIP GENERAL 3V PELV/AP/LAT RIGHT - XR SHOULDER GENERAL 3V OR MORE AP/TRUE AP/OTHER RIGHT - XR FOREARM GENERAL 2V AP/LAT RIGHT - XR WRIST GENERAL 3V PA/LAT/OBL RIGHT 2. Right arm pain - ICD9: 729.5, ICD10: M79.601 - XR FOREARM GENERAL 2V AP/LAT RIGHT - XR WRIST GENERAL 3V PA/LAT/OBL RIGHT 3. Acute pain of right shoulder - ICD9: 719.41, ICD10: M25.511 - XR SHOULDER GENERAL 3V OR MORE AP/TRUE AP/OTHER RIGHT 4. Right hip pain - ICD9: 719.45, ICD10: M25.551 - XR HIP GENERAL 3V PELV/AP/LAT RIGHT Claude Cardenas APRN.EMBROIDERY ASSISTANT documented in this encounterMercy [facility]03-26-2025 Telephone encounter Note * Telephone Encounter - Adama Mendoza MD - 12/28/2024 12:31 PM EDT The following approved medication requests have been transmitted electronically. Requested Prescriptions Signed Prescriptions Disp Refills pantoprazole DR (PROTONIX) 40 mg tablet 90 tablet 1 Sig: Take 1 tablet by mouth daily before breakfast. Take on empty stomach, 1/2 hr before meal. Authorizing Provider: ADAMA MENDOZA MD [facility]03-26-2025 Miscellaneous Notes* Telephone Encounter - Adama Mendoza MD - 12/28/2024 12:31 PM EDT The following approved medication requests have been transmitted electronically. Requested Prescriptions Signed Prescriptions Disp Refills pantoprazole DR (PROTONIX) 40 mg tablet 90 tablet 1 Sig: Take 1 tablet by mouth daily before breakfast. Take on empty stomach, 1/2 hr before meal. Authorizing Provider: ADAMA MENDOZA MD * Telephone Encounter - Judith Vanegas MA - 12/28/2024 9:26 AM EDT Prescription Refill Information The patient has been identified by name and date of : Yes Caregiver verified no other encounters exist for this prescription request: Yes Caregiver confirmed with patient/requestor that no other refills are due, in the near future, with this provider at this time: Yes The last office visit in the department: 11/2024 requesting 90 day supply Does the patient have a future office visit with this provider/department: Yes 04/2025 Requested Prescriptions Pending Prescriptions Disp Refills pantoprazole DR (PROTONIX) 40 mg tablet 30 tablet 11 Sig: Take 1 tablet by mouth daily before breakfast. Take on empty stomach, 1/2 hr before meal. Judith Vanegas MA December 28, 2024 9:26 AM * Telephone Encounter - Yolie Sarmiento - 12/28/2024 9:24 AM EDT Patient has been identified by name and date of : Yes Patient phones for refill(s): Requested Prescriptions Pending Prescriptions Disp Refills pantoprazole DR (PROTONIX) 40 mg tablet 30 tablet 11 Sig: Take 1 tablet by mouth daily before breakfast. Take on empty stomach, 1/2 hr before meal. Date of last office visit in primary care: 11/25/2024 Date of next office visit in primary care: 04/11/2025 Please advise. Thank you. Yolie Sarmiento. [facility] Tele[facility] encounter Note * Telephone Encounter - Judith Vanegas MA - 12/28/2024 9:26 AM EDT Prescription Refill Information The patient has been identified by name and date of : Yes Caregiver verified no other encounters exist for this prescription request: Yes Caregiver confirmed with patient/requestor that no other refills are due, in the near future, with this provider at this time: Yes The last office visit in the department: 11/2024 requesting 90 day supply Does the patient have a future office visit with this provider/department: Yes 04/2025 Requested Prescriptions Pending Prescriptions Disp Refills pantoprazole DR (PROTONIX) 40 mg tablet 30 tablet 11 Sig: Take 1 tablet by mouth daily before breakfast. Take on empty stomach, 1/2 hr before meal. Judith Vanegas MA December 28, 2024 9:26 AM [facility]03-26-[facility] Telephone encounter Note* Telephone Encounter - Yolie Sarmiento - 12/28/2024 9:24 AM EDT Patient has been identified by name and date of : Yes Patient phones for refill(s): Requested Prescriptions Pending Prescriptions Disp Refills pantoprazole DR (PROTONIX) 40 mg tablet 30 tablet 11 Sig: Take 1 tablet by mouth daily before breakfast. Take on empty stomach, 1/2 hr before meal. Date of last office visit in primary care: 11/25/2024 Date of next office visit in primary care: 04/11/2025 Please advise. Thank you. Yolie Sarmiento. [facility] Telephone encounter Note* Telephone Encounter - Dedra Ayala MA - 12/19/2024 11:46 AM EDT Melatonin filled by Dr. Fidelina Merida. This was refilled to [facility] on 12/05/24 #180 pills with 1 refill. Dedra Ayala MA [facility]03-17-2025 Miscellaneous Notes* Telephone Encounter - Dedra Ayala MA - 12/19/2024 11:46 AM EDT Melatonin filled by Dr. Fidelina Merida. This was refilled to [facility] on 12/05/24 #180 pills with 1 refill. Dedra Ayala MA * Telephone Encounter - Laila Crawley - 12/19/2024 11:09 AM EDT Prescription Refill Information The patient has been identified by name and date of : Yes Caregiver verified no other encounters exist for this prescription request: Yes Caregiver confirmed with patient/requestor that no other refills are due, in the near future, with this provider at this time: Yes The last office visit in the department: 11/25/2024 Does the patient have a future office visit with this provider/department: Yes Requested Prescriptions Pending Prescriptions Disp Refills melatonin 3 mg tablet 180 tablet 1 Sig: Take 2 tablets by mouth daily at bedtime. Laila Crawley December 19, 2024 11:09 AM documented in this encounter[facility] Telephone encounter Note * Telephone Encounter - Laila Crawley - 12/19/2024 11:09 AM EDT Prescription Refill Information The patient has been identified by name and date of : Yes Caregiver verified no other encounters exist for this prescription request: Yes Caregiver confirmed with patient/requestor that no other refills are due, in the near future, with this provider at this time: Yes The last office visit in the department: 11/25/2024 Does the patient have a future office visit with this provider/department: Yes Requested Prescriptions Pending Prescriptions Disp Refills melatonin 3 mg tablet 180 tablet 1 Sig: Take 2 tablets by mouth daily at bedtime. Laila Crawley December 19, 2024 11:09 AM [facility] Telephone encounter Note* Telephone Encounter - Zhanna Carreno LPN - 12/14/2024 9:04 AM EDT The patient has been identified by name and date of : Yes Caregiver verified no other encounters exist for this prescription request: Yes Caregiver confirmed with patient/requestor that no other refills are due, in the near future, with this provider at this time: Yes The last office visit in the department: 11/25/2024 Does the patient have a future office visit with this provider/department: Yes 04/11/2025 Requested Prescriptions Pending Prescriptions Disp Refills metoprolol succinate ER (TOPROL XL) 25 mg 24 hr tablet 90 tablet 0 Sig: Take 3 tablets by mouth once daily. pantoprazole DR (PROTONIX) 40 mg tablet 30 tablet 11 Sig: Take 1 tablet by mouth daily before breakfast. Take on empty stomach, 1/2 hr before meal. magnesium oxide (MAG-OX) 400 mg (241.3 mg magnesium) tablet 60 tablet 0 Sig: Take 1 tablet by mouth two times a day. Zhanna Carreno LPN December 14, 2024 9:06 AM [facility]03-12-[facility] Miscellaneous Notes* Telephone Encounter - Zhanna Carreno LPN - 12/14/2024 9:04 AM EDT The patient has been identified by name and date of : Yes Caregiver verified no other encounters exist for this prescription request: Yes Caregiver confirmed with patient/requestor that no other refills are due, in the near future, with this provider at this time: Yes The last office visit in the department: 11/25/2024 Does the patient have a future office visit with this provider/department: Yes 04/11/2025 Requested Prescriptions Pending Prescriptions Disp Refills metoprolol succinate ER (TOPROL XL) 25 mg 24 hr tablet 90 tablet 0 Sig: Take 3 tablets by mouth once daily. pantoprazole DR (PROTONIX) 40 mg tablet 30 tablet 11 Sig: Take 1 tablet by mouth daily before breakfast. Take on empty stomach, 1/2 hr before meal. magnesium oxide (MAG-OX) 400 mg (241.3 mg magnesium) tablet 60 tablet 0 Sig: Take 1 tablet by mouth two times a day. Zhanna Carreno LPN December 14, 2024 9:06 AM documented in this encounter[facility]03-[facility] Telephone encounter Note * Telephone Encounter - Adama Mendoza MD - 12/05/2024 5:05 PM EST The following approved medication requests have been transmitted electronically. Requested Prescriptions Signed Prescriptions Disp Refills nitroglycerin sublingual (NITROSTAT) 0.4 mg SL tablet 25 tablet 1 Sig: Dissolve 1 tablet under the tongue every 5 minutes as needed for chest pain. Authorizing Provider: ADAMA MENDOZA MD [facility]03-03-[facility] Miscellaneous Notes* Telephone Encounter - Adama Mendoza MD - 12/05/2024 5:05 PM EST The following approved medication requests have been transmitted electronically. Requested Prescriptions Signed Prescriptions Disp Refills nitroglycerin sublingual (NITROSTAT) 0.4 mg SL tablet 25 tablet 1 Sig: Dissolve 1 tablet under the tongue every 5 minutes as needed for chest pain. Authorizing Provider: ADAMA MENDOZA MD * Telephone Encounter - Salinas Hernandez RN - 12/05/2024 4:16 PM EST The patient has been identified by name and date of : Yes Caregiver verified no other encounters exist for this prescription request: Yes Caregiver confirmed with patient/requestor that no other refills are due, in the near future, with this provider at this time: Yes The last office visit in the department: 11/25/2024 Does the patient have a future office visit with this provider/department: Yes 04/11/2025 Requested Prescriptions Pending Prescriptions Disp Refills nitroglycerin sublingual (NITROSTAT) 0.4 mg SL tablet 25 tablet 3 Sig: Dissolve 1 tablet under the tongue every 5 minutes as needed for chest pain. Salinas Hernandez RN December 05, 2024 4:17 PM documented in this encounter[facility] Telephone encounter Note * Telephone Encounter - Salinas Hernandez RN - 12/05/2024 4:22 PM EST Pts called in and wanted to let provider know that Pt stopped taking the Trazodone on 10/20/24.She wanted provider to update Pts medication list. [facility]03-03-[facility] Miscellaneous Notes* Telephone Encounter - Salinas Hernandez RN - 12/05/2024 4:22 PM EST Pts called in and wanted to let provider know that Pt stopped taking the Trazodone on 10/20/24.She wanted provider to update Pts medication list. documented in this encounterMer[facility]03-[facility] Telephone encounter Note * Telephone Encounter - Salinas Hernandez RN - 12/05/2024 4:16 PM EST The patient has been identified by name and date of : Yes Caregiver verified no other encounters exist for this prescription request: Yes Caregiver confirmed with patient/requestor that no other refills are due, in the near future, with this provider at this time: Yes The last office visit in the department: 11/25/2024 Does the patient have a future office visit with this provider/department: Yes 04/11/2025 Requested Prescriptions Pending Prescriptions Disp Refills nitroglycerin sublingual (NITROSTAT) 0.4 mg SL tablet 25 tablet 3 Sig: Dissolve 1 tablet under the tongue every 5 minutes as needed for chest pain. Salinas Hernandez RN December 05, 2024 4:17 PM [facility] History of Present illness Narrative* Shaye Kitchen Jr., MD - 12/05/2024 1:50 PM EST ESTABLISHED PATIENT VISIT CHIEF COMPLAINT: Follow Up HISTORY OF PRESENT ILLNESS: Lory Johnson is a 79 year old male, BMI 29.53 kg/m2 with a PMH significant for and per last office visit with Pawel Ardon CNP on 10/14/24: F03.90 Dementia without behavioral disturbance (HCC) (primary encounter diagnosis) Z86.73 History of CVA (cerebrovascular accident) R41.82 Altered mental status, unspecified altered mental status type R94.01 Abnormal EEG Comment: Pt following with neurology for memory concerns with last visit in 02/25. Also past question of possible epileptiform abnormality though pt/ declining ASM. Otherwise, patient previously stable on Aricept 10 mg daily and Namenda 10 mg BID which she continues to take without SE. Notably since previous appointment, patient's was hospitalized and patient's son began to take over careat which time patient began to experience increased agitation/irritability and symptoms suggestive of sundowning (with irritation occurring overnight). See events as discussed above in HPI. Pt was evaluated at [facility] at which time son reports CT brain was completed as well as further workup, however, hospital records not available at time of appointment today. Since discharge patient continues to have increased episodes of wandering and what appears per the son to be hallucinations overnight. MoCAupdated in office today with score of 5/30. Remainder of neuro exam seemingly unchanged since time of previous appointment. When discussing further plan regarding workup and medications for management of nighttime behaviors, patient's son reports that patient is not currently taking Seroquel as previously prescribed for reasons uncertain. Patient is currently taking melatonin at bedtime, though notes no significant change in evening behaviors. At this time we will provide prescription for Seroquel 25 mg daily at bedtime. EKG ordered as well for routine monitoring as no recent testing available for review. Can continue melatonin as well. Should behaviors persist despite initiation of Seroquel, may consider dose earlier in the evening as well as at bedtime. Additionally, patient's son reports multiple falls with si gnificant bruising and injuries since his hospitalization in July. Falls seem to occur at night during periods of confusion, however, given increase in confusion as well as multiple head injuries and history of stroke, will order MRI brain to ensure no new intracranial process such as stroke or bleed. Patient's son does have questions regarding diagnosis as well as any other treatments. Discussed a consult to brain health and he would like to proceed with consult. Order placed at this time. G47.33 NAIN (obstructive sleep apnea) Comment: Pt with history of NAIN not currently utilizing PAP due to illness as well as inability to keep device on overnight. Should behaviors improve overnight could consider attempting to restart PAP. Pt was seen by [facility] during interim. Per report of 10/14/24: This is a 79 year old male with hx of AAA, CAD, HTN, HLD, tobacco smoking, CVA, prostate cancer, COPD, CKD, NAIN, obesity who presented for evaluation and management of behavioral changes and dementia. Hx and exam are consistent with moderate dementia due to alzheimer's disease. 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 See the section below Ways to keep your brain healthy A heart healthy diet is a brain healthy diet. The MIND Diet is an evidence based diet proven to slow and protect against cognitive decline. See the section MIND Diet Guidelines below for more information. Follow up as needed MRI brain on 10/19/24: Moderate generalized parenchymal volume loss. Disproportionate anterior medial temporal lobe and insular region volume loss. Correlate with patient cognitive status. Mild background chronic microvascular change. No acute abnormalities. MRI brain reviewed above and patient with definite atrophy of [place] temp lobes but appears frontal > parietal. states that earlier this year, was in the hospital for meningitis and thus, with son. States there was an episode where he took too much of medications for sleep - unclear as to which one -- and had to go the [place] [facility]. Per notes of inpatient services: Reason for Admission: Acute encephalopathy superimposed on dementia with behavioral disturbance after being administered Seroquel andmelatonin together for first time because of wandering and sundowning. Appears Seroquel d/c'd (only took 1 dose on review of notes or so it appears). Now on melatonin andTrazodone at night. No abnormal behaviors. reports agitation gone. Appears all improved since return to home. Getting around the house real well. feels that he seems pretty good with memory. Occasionally might wake up and see something, but corrects him and he immediately is aware ofhallucinations. Patient states he feels he is doing good. He has no concerns at this time. When asked about brain exercises, does not report significant challenging tasks, and primarily listens to music. stateshe did get pt some puzzles that he put together. states she cannot drive at present because she had a seizure due to her meningitis dx above. Patient gets in shower and shaves on his own. However, reports she observes. Needs help with meals. REVIEW OF SYSTEMS GENERAL:No weight loss, malaise or fevers. HEENT:Negative for frequent or significant headaches, No changes in hearing or vision, no nose bleeds or other nasal problems NECK:Negative for lumps, goiter, pain and significant neck swelling RESPIRATORY: Non-productive cough, no sob. CARDIOVASCULAR: Negative for chest pain, leg swelling or palpitations. GASTROINTESTINAL: Negative for abdominal discomfort, blood in stools or black stools or change in bowel habits GENITOURINARY: No history of dysuria, frequency or incontinence MUSCULOSKELETAL: Negative for joint pain or swelling, back pain or muscle pain. NEUROLOGIC:Negative for focal numbness or weakness, headaches and dizziness or syncope, vision changes, speech/languag changes - EXCEPT that as per HPI above. SKIN:Negative for lesions, rash, and itching. PSYCHIATRIC: See HPI. LAB/IMAGING: Those performed since patient's last visit have been reviewed. WBC (k/uL) Date Value 11/13/2024 6.90 RBC (m/uL) Date Value 11/13/2024 4.61 Hemoglobin (g/dL) Date Value 11/13/2024 13.6 Hematocrit (%) Date Value 11/13/2024 40.7 MCV (fL) Date Value 11/13/2024 88.3 MCH (pg) Date Value 11/13/2024 29.5 MCHC (g/dL) Date Value 11/13/2024 33.4 RDW-CV (%) Date Value 11/13/2024 12.8 Platelet Count (k/uL) Date Value 11/13/2024 225 MPV (fL) Date Value 11/13/2024 10.1 Glucose (mg/dL) Date Value 11/13/2024 96 BUN (mg/dL) Date Value 11/13/2024 16 Creatinine (mg/dL) Date Value 11/13/2024 1.25 (H) Sodium (mmol/L) Date Value 11/13/2024 141 Potassium (mmol/L) Date Value 11/13/2024 3.8 Chloride (mmol/L) Date Value 11/13/2024 106 CO2 (mmol/L) Date Value 11/13/2024 26 Protein, Total (g/dL) Date Value 11/13/2024 6.7 Albumin (g/dL) Date Value 11/13/2024 3.7 (L) Calcium, Total (mg/dL) Date Value 11/13/2024 9.1 Alkaline Phosphatase (U/L) Date Value 11/13/2024 95 Bilirubin, Total (mg/dL) Date Value 11/13/2024 0.4 AST (U/L) Date Value 11/13/2024 15 ALT (U/L) Date Value 11/13/2024 11 MEDICATIONS: metoprolol succinate ER (TOPROL XL) 25 mg 24 hr tablet Take 3 tablets by mouth once daily. melatonin 3 mg tablet Take 2 tablets by mouth daily at bedtime. magnesium oxide (MAG-OX) 400 mg (241.3 mg magnesium) tablet Take 1 tablet by mouth two times a day. solifenacin (VESICARE) 5 mg tablet Take 1 tablet by mouth once daily. multivit-min/ferrous fumarate (MULTI VITAMIN ORAL) Take 1 tablet by mouth once daily. CINNAMON BARK ORAL Take 1,000 mg by mouth once daily. pyridoxine, vitamin B6, (VITAMIN B6) 50 mg tablet Take 3 tablets by mouth once daily for 14 doses. zinc sulfate 220 mg (50 mg zinc) capsule Take 1 capsule by mouth once daily for 12 doses. traZODone (DESYREL) 50 mg tablet 25-50 mg at bedtime as needed none insomnia- 12.5 mg up to 4 times a day for agitation donepezil (ARICEPT) 10 mg tablet Take 1 tablet by mouth daily at bedtime. memantine (NAMENDA) 10 mg tablet Take 1 tablet by mouth two times a day. amLODIPine (NORVASC) 10 mg tablet Take 1 tablet by mouth once daily. aspirin, enteric coated (ECOTRIN LOW STRENGTH) 81 mg EC tablet Take 1 tablet by mouth once daily. pantoprazole DR (PROTONIX) 40 mg tablet Take 1 tablet by mouth daily before breakfast. Take on empty stomach, 1/2 hr before meal. nitroglycerin sublingual (NITROSTAT) 0.4 mg SL tablet Dissolve 1 tablet under the tongue every 5 minutes as needed for chest pain. cholecalciferol (VITAMIN D3) 1,000 unit tab tablet Take 2,000 Units by mouth once daily. Patient should start on October 22, 2024. ASCORBIC ACID, VITAMIN C, ORAL Take 500 mg by mouth once daily. Patient should start on October. Blood Pressure Cuff - Home Use BLOOD PRESSURE CUFF FOR HOME USE. fluticasone (FLONASE) 50 mcg/actuation nasal spray Use 2 Sprays in each nostril once daily. (Patient not taking: Reported on 12/05/2024) HISTORIES PAST MEDICAL HISTORY Diagnosis Date 3-vessel CAD 11/03/2013 Abdominal aortic aneurysm (AAA) without rupture ([facility]) 11/08/2016 US: 11/2016 2.6 x 2.4 x 2.0 cm, Repeat in a year US: 02/2018 Stable, 03/2019 US said no AAA, US 08/2020 no AAA no further studies needed. Actinic Keratoses (Premalignant AK's) 08/16/2013 Advance directive discussed with patient 03/26/2022 Discussed 03/2022 Anemia Anterior dislocation of right shoulder 10/31/2022 CAD S/P percutaneous coronary angioplasty 11/02/2013 Chronic left shoulder pain 06/30/2018 CKD (chronic kidney disease) stage 3, GFR 30-59 ml/min ([facility]) 04/11/2024 Dementia without behavioral disturbance ([facility]) 05/15/2016 MMSE: 22 05/2016, MMSE: 06/2019, 23 Elevated fasting blood sugar 12/01/2018 Emphysema lung ([facility]) 10/23/2023 Essential hypertension, benign 05/12/2006 Ex-smoker 10/31/2016 Started at age 15, up to 1 PPD quite at age 34 Fam hx-ischem heart disease 08/21/2009 Sister, mother Family history of colon cancer in father 06/09/2018 GERD without esophagitis 12/14/2018 History of CVA (cerebrovascular accident) 02/16/2018 Right posterior internal capsule Impaired driving skills 08/16/2019 Per Occupational Therapy Community [employer] and IADL report patient not safe to drive nor should hereturn to driving. Lipoma of right forearm 05/05/2017 Living will on file 03/26/2022 DPA: [place] () Malignant neoplasm of prostate ([facility]) 03/01/200802/09 PATH: Left Lobe: GS 7 ( 3+4) in 1/4 cores Right Lobe : GS 6 ( 3 +) in 3/5 cores External Beam Radiotherapy -- Dr. Rishabh Yao, Renetta Landry follow Mixed hyperlipidemia 12/03/2002 Muscle pain, lumbar 09/26/2019 Neck pain 04/18/2019 NAIN (obstructive sleep apnea) 06/09/2018 Wearing CPAP, Per Neurology (Dr. 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) ([facility]) 10/11/2024 FAMILY HISTORY Problem Relation Age of Onset Prostate Cancer Father Colon Cancer Father Dx in his 70s Heart Father Had heart issues per patient Heart Sister had bypass surgery (mid-40's) Heart Mother Had heart issues per patient Heart Brother had bypass surgery SOCIAL HISTORY Social History Tobacco Use Smoking status: Former Current packs/day: 0.00 Average packs/day: 2.5 packs/day for 25.0 years (62.5 ttl pk-yrs) Types: Cigarettes Start date: 10/05/1955 Quit date: 10/05/1978 Years since quittin.2 Smokeless tobacco: Never Tobacco comments: quit 1978 Vaping Use Vaping status: Never Used Substance Use Topics Alcohol use: No Drug use: No PHYSICAL EXAMINATION Wt 90.7 kg (200 lb) BMI 29.53 kg/m GENERAL EXAM: General appearance: NAD, pleasant yet flat affect. HEENT: NC/AT, membranes moist. Lungs: CTA bilaterally. CV: RRR nl S1, S2 Extr: No cyanosis, clubbing or edema. Skin: Cool to touch. NEUROLOGICAL EXAM: General: Awake, alert, oriented x2 (person,place), paucity of words yet still fluent, no dysarthria; inability to perform serial 7s correctly, immediate recall at best 2/5 and delayed 0/5, naming 2/3, number repeat 1/2, sentence repeat 0/2. CN: PERRL, EOMI and without nystagmus, VFF to confrontation, facial sensation and strength are normal and symmetric, hearing is intact to finger rub bilaterally, palate and tongue movements are intact and symmetric. SCM and trapezius strength normal. Motor: Normal tone, bulk and strength (5/5) bilaterally (throughout extremities x4). Coordination: FNF, ESAU intact. No tremors. Sensation: Light touch intact throughout. No evidence of neglect. Gait: Stable. Assessment and Plan: ASSESSMENT/PLAN: 1. Severe dementia, unspecified dementia type, unspecified whether behavioral, psychotic, or mood disturbance or anxiety (HCC) - ICD9: 294.20, ICD10: F03.C0 (primary diagnosis) Reporting that symptoms of abrupt AMS and behavioral changes have resolved. While our discussion suggested that pt was still taking Trazodone, later in the day, patient's wrote back indicating he is not taking the medication. Thus, only medication other than Aricept 10mg and Namenda 10mg BID that pt is taking is melatonin 6mg at bedtime. Informed need to monitor HR as bradycardic today and Aricept could contribute to such finding. In the past typically in the 60s. So long as no behavioral changes, for now will continue current meds as reporting pt as stable. She is wanting to follow up prn, but for now, will have return later in the year in case any further declines. 2. History of CVA (cerebrovascular accident) - ICD9: V12.54, ICD10: Z86.73 No new focal deficits. No new recommendations from time of last visit. Pt on ASA daily. Lipid follow up with PCP to determine need for statin. BP goal <140/90. Glucose goal <140. 3. Abnormal EEG - ICD9: 794.02, ICD10: R94.01 Noted in past. They are not wanting AEDs - see prior notes. 4. NAIN (obstructive sleep apnea) - ICD9: 327.23, ICD10: G47.33 They decline NAIN treatment. Discussed with patient and : the physiology of OSAS, medical conditions associated with OSAS (DM, HTN, CAD, Depression, Stroke, Headache...) and treatment options (UPPP, Dental appliances, CPAP...). Shaye Kitchen MD I spent a total of 35 minutes on the date of the service which included preparing to see the patient, [id number] patient care, completing clinical documentation, obtaining and/or reviewing separately obtained history, performing a medically appropriate examination, counseling and educating the pat ient/family/caregiver, ordering medications, tests, or procedures, and communicating results to thepatient/family/caregiver. * Deann Suarez LPN - 12/05/2024 1:42 PM EST documented in this encounterMer[facility]03-[facility]-2025 NoteHNO ID: [id number] Author: DEANN SUAREZ LPN Service: ? Author Type: LICENSED NURSE Type: Progress Notes Filed: 12/05/2024 17:50 Note Text:[facility]02-21-2025 NoteSt. [facility] 11-25-[facility] History of Present illness Narrative* Claude Cardenas APRN.EMBROIDERY ASSISTANT - 11/25/2024 12:44 PM EST Chief Complaint Patient presents with: Ear Problem: Right ear hearing loss X 5 days HPI Lory Johnson is a 79 year old male who presents here today for Above Complaints.. Patient presents for right ear pain x5 days. Patient's concerned that he may have impacted waxdue to pain and decreased hearing. Past medical history, appointments, medications, allergies reviewed. Previous Medical History PAST MEDICAL HISTORY Diagnosis Date 3-vessel CAD 11/03/2013 Abdominal aortic aneurysm (AAA) without rupture (HCC) 11/08/2016 US: 11/2016 2.6 x 2.4 x 2.0 cm, Repeat in a year US: 02/2018 Stable, 03/2019 US said no AAA, US 08/2020 no AAA no further studies needed. Actinic Keratoses (Premalignant AK's) 08/16/2013 Advance directive discussed with patient 03/26/2022 Discussed 03/2022 Anemia Anterior dislocation of right shoulder 10/31/2022 CAD S/P percutaneous coronary angioplasty 11/02/2013 Chronic left shoulder pain 06/30/2018 CKD (chronic kidney disease) stage 3, GFR 30-59 ml/min ([facility]) 04/11/2024 Dementia without behavioral disturbance ([facility]) 05/15/2016 MMSE: 22 05/2016, MMSE: 06/2019, 23 Elevated fasting blood sugar 12/01/2018 Emphysema lung (HCC) 10/23/2023 Essential hypertension, benign 05/12/2006 Ex-smoker 10/31/2016 Started at age 15, up to 1 PPD quite at age 34 Fam hx-ischem heart disease 08/21/2009 Sister, mother Family history of colon cancer in father 06/09/2018 GERD without esophagitis 12/14/2018 History of CVA (cerebrovascular accident) 02/16/2018 Right posterior internal capsule Impaired driving skills 08/16/2019 Per Occupational Therapy Community Mobility and IADL report patient not safe to drive nor should hereturn to driving. Lipoma of right forearm 05/05/2017 Living will on file 03/26/2022 DPA: Refugio () Malignant neoplasm of prostate (HCC) 03/01/200802/09 PATH: Left Lobe: GS 7 ( 3+4) in 1/4 cores Right Lobe : GS 6 ( 3 +) in 3/5 cores External Beam Radiotherapy -- Dr. Rishabh Yao, Renetta Landry follow Mixed hyperlipidemia 12/03/2002 Muscle pain, lumbar 09/26/2019 Neck pain 04/18/2019 NAIN (obstructive sleep apnea) 06/09/2018 Wearing CPAP, Per Neurology (Dr. 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) ([facility]) 10/11/2024 Previous Surgical History PAST SURGICAL HISTORY Procedure Laterality Date 2D ECHO (EXEP) 02/11/2018 EF=65%, mild jain dysf, mildly enlarged LA, 2D ECHO (EXEP) 10/03/2020 EF=65%, mild Jain dysfunction, COLONOSCOPY FLX DX W/COLLJ SPEC WHEN PFRMD 02/2002 Colonoscopy COLONOSCOPY FLX DX W/COLLJ SPEC WHEN PFRMD 09/14/2007 normal COLONOSCOPY FLX DX W/COLLJ SPEC WHEN PFRMD 07/23/2012 normal COLONOSCOPY FLX DX W/COLLJ SPEC WHEN PFRMD 07/28/2018 Colonoscopy, repeat 5 years ESOPHAGOGASTRODUODENOSCOPY TRANSORAL DIAGNOSTIC 02/2002 EGD ESOPHAGOGASTRODUODENOSCOPY TRANSORAL DIAGNOSTIC 12/22/2002 hiatal hernia, distal esophagitis ESOPHAGOGASTRODUODENOSCOPY TRANSORAL DIAGNOSTIC 08/03/2015 EGD ESOPHAGOGASTRODUODENOSCOPY TRANSORAL DIAGNOSTIC 11/15/2015 EGD ESOPHAGOGASTRODUODENOSCOPY TRANSORAL DIAGNOSTIC 08/13/2020 EGD HEART CATHETERIZATION 2013 Angioplasty, Promus stent to right coronary LEXISCAN STRESS TEST 10/03/[address] Morton RPR UMBILICAL HRNA 5 YRS/> REDUCIBLE 2002 Family History FAMILY HISTORY Problem Relation Age of Onset Prostate Cancer Father Colon Cancer Father Dx in his 70s Heart Father Had heart issues per patient Heart Sister had bypass surgery (mid-40's) Heart Mother Had heart issues per patient Heart Brother had bypass surgery Patient Allergies ALLERGIES Allergen Reactions Zithromax [Azithrom* Itching Beta-Blockers (Beta* Unknown Lipitor [Atorvastat* Intolerance Viagra [Sildenafil] Unknown Zetia [Ezetimibe] Mental Status Change Current Medications Current Outpatient Medications on File Prior to Visit Medication Sig metoprolol succinate ER (TOPROL XL) 25 mg 24 hr tablet Take 3 tablets by mouth once daily. melatonin 3 mg tablet Take 2 tablets by mouth daily at bedtime. magnesium oxide (MAG-OX) 400 mg (241.3 mg magnesium) tablet Take 1 tablet by mouth two times a day. solifenacin (VESICARE) 5 mg tablet Take 1 tablet by mouth once daily. multivit-min/ferrous fumarate (MULTI VITAMIN ORAL) Take 1 tablet by mouth once daily. CINNAMON BARK ORAL Take 1,000 mg by mouth once daily. pyridoxine, vitamin B6, (VITAMIN B6) 50 mg tablet Take 3 tablets by mouth once daily for 14 doses. zinc sulfate 220 mg (50 mg zinc) capsule Take 1 capsule by mouth once daily for 12 doses. traZODone (DESYREL) 50 mg tablet 25-50 mg at bedtime as needed none insomnia- 12.5 mg up to 4 times a day for agitation donepezil (ARICEPT) 10 mg tablet Take 1 tablet by mouth daily at bedtime. memantine (NAMENDA) 10 mg tablet Take 1 tablet by mouth two times a day. amLODIPine (NORVASC) 10 mg tablet Take 1 tablet by mouth once daily. aspirin, enteric coated (ECOTRIN LOW STRENGTH) 81 mg EC tablet Take 1 tablet by mouth once daily. pantoprazole DR (PROTONIX) 40 mg tablet Take 1 tablet by mouth daily before breakfast. Take on empty stomach, 1/2 hr before meal. nitroglycerin sublingual (NITROSTAT) 0.4 mg SL tablet Dissolve 1 tablet under the tongue every 5 minutes as needed for chest pain. (Patient taking differently: Dissolve 0.4 mg under the tongue every 5 minutes as needed for chest pain. max dose of 3. If not relieve after 3 doses call 911) cholecalciferol (VITAMIN D3) 1,000 unit tab tablet Take 2,000 Units by mouth once daily. Patient should start on October 22, 2024. ASCORBIC ACID, VITAMIN C, ORAL Take 500 mg by mouth once daily. Patient should start on October. Blood Pressure Cuff - Home Use BLOOD PRESSURE CUFF FOR HOME USE. No current facility-administered medications on file prior to visit. Social History Social History Tobacco Use Smoking status: Former Current packs/day: 0.00 Average packs/day: 2.5 packs/day for 25.0 years (62.5 ttl pk-yrs) Types: Cigarettes Start date: 10/05/1953 Quit date: 10/05/1978 Years since quittin.1 Smokeless tobacco: Never Tobacco comments: quit 1978 Vaping Use Vaping status: Never Used Substance Use Topics Alcohol use: No Drug use: No Review of Symptoms REVIEW OF SYSTEMS SEE HPI EXAM: BP 127/67 Pulse 61 Wt 90.7 kg (200 lb) SpO2 98% BMI 29.53 kg/m General Appearance: Well appearing, alert, in no acute distress, well-hydrated, well nourished.. Ears: Positive findings: R TM: bulging, L TM: bulging, cerumen bilaterally, amount Small. Health Maintenance List Advance Directive Discussion due on 10/05/2024 RSV Vaccine(1 - 1-dose 75+ series) due on 04/11/2025 Covid-19 Vaccine() due on 02/13/2025 LDL Cholesterol due on 05/10/2025 Diabetes Screening due on 11/13/2027 DTaP,Tdap,Td Vaccine(3 - Td or Tdap) due on 04/09/2028 Spirometry Completed Influenza Vaccine Completed Shingrix Vaccine Completed Pneumococcal Vaccine: 50+ Completed Colorectal Cancer Screening Discontinued ASSESSMENT/PLAN: 1. Pressure sensation in both ears - ICD9: 388.8, ICD10: H93.8X3 - Nasal saline recommended as well, had sinus issues last week. - FLUTICASONE PROPIONATE 50 MCG/ACTUATION NASAL SPRAY,SUSPENSION Claude Cardenas APRN.EMBROIDERY ASSISTANT documented in this encounterMercy Health [facility]02-21-2025 NoteSt. [facility]02-21-2025 History of Present illness Narrative* Dandy Faith - 11/25/2024 11:04 AM EST Subjective: Patient presents to clinic c/o painful toenails. They state that the nails are especially painful with shoe gear and pressure. Patient states that nails 1-5 b/l are painful. No other pedal complaints at this time. Patient states no change in medications or medical history since last visit. Objective: Patient presents to clinic ambulating in [facility] Vasc: DP and PT pulses are palpable bilateral. CFT is less than 5 seconds bilateral. Skin temperature is warm to cool proximal to distal bilateral. There is mild edema or varicosities noted. Neuro: Protective sensation is intact to the foot and toes when tested with the 5.07 SWM bilateral.Vibratory sensation is decreased at the hallux IPJ bilateral. The hallux is downgoing bilateral. Derm: Nails 1-5 b/l are painful, discolored-yellow, thick, crumbly, dystrophic and with subungal debris. Skin is of normal turgor, texture and hair growth is absent bilateral. There are no hyperkeratosis, ulcerations, scars, verruca or other lesions noted. Ortho: Muscle strength is 5/5 for all pedal groups tested. Ankle joint DF is decreased with the knee extended with no pain or crepitus noted. 1st MPJ ROM is decreased bilateral. Assessment: (B35.1) Onychomycosis (primary encounter diagnosis) (M79.675) Pain in toe of left foot (M79.674) Pain in toe of right foot Plan: Patient was seen and evaluated. Nails 1-5 bilateral were debrided in length and thickness. Patient is to RTC in 3-4 months. Dandy Faith DPM * Katt Olivares LPN - 11/25/2024 10:49 AM EST AMB ROOMING INTAKE FLOWSHEET DATA Pain Pain Level: 4 Pain Location: Toe Description: Sore Patient presents with: Left Foot - Established Patient, nail discoloration Right Foot - Established Patient, nail discoloration Katt Olivares LPN documented in this encounterMercy Health [facility]02-21-2025 NoteSt. [facility]02-19-2025 NoteSt. [facility]02-19-2025 History of Present illness Narrative* Danita Meraz PA-C - 11/23/2024 1:42 PM EST Chief Complaint Patient presents with: Cough: X 1 week HPI Lory Johnson is a 79 year old male who presents here today for Above Complaints.. Patient here with his son today. Reports cough and sinus symptoms started again 11/15/2024. So far symptoms are mild. No fevers. Per son, patient hasn't complained about sore throat or ear pressure. Patient declines these symptoms as well. Patient recently treated for pneumonia. Most recent xray on 11/13 was normal. Had GI SE with the atb. Past medical history, appointments, medications, allergies reviewed. Previous Medical History PAST MEDICAL HISTORY Diagnosis Date 3-vessel CAD 11/03/2013 Abdominal aortic aneurysm (AAA) without rupture (HCC) 11/08/2016 US: 11/2016 2.6 x 2.4 x 2.0 cm, Repeat in a year US: 02/2018 Stable, 03/2019 US said no AAA, US 08/2020 no AAA no further studies needed. Actinic Keratoses (Premalignant AK's) 08/16/2013 Advance directive discussed with patient 03/26/2022 Discussed 03/2022 Anemia Anterior dislocation of right shoulder 10/31/2022 CAD S/P percutaneous coronary angioplasty 11/02/2013 Chronic left shoulder pain 06/30/2018 CKD (chronic kidney disease) stage 3, GFR 30-59 ml/min (HCC) 04/11/2024 Dementia without behavioral disturbance ([facility]) 05/15/2016 MMSE: 22 05/2016, MMSE: 06/2019, 23 Elevated fasting blood sugar 12/01/2018 Emphysema lung (HCC) 10/23/2023 Essential hypertension, benign 05/12/2006 Ex-smoker 10/31/2016 Started at age 15, up to 1 PPD quite at age 34 Fam hx-ischem heart disease 08/21/2009 Sister, mother Family history of colon cancer in father 06/09/2018 GERD without esophagitis 12/14/2018 History of CVA (cerebrovascular accident) 02/16/2018 Right posterior internal capsule Impaired driving skills 08/16/2019 Per Occupational Therapy Community Mobility and IADL report patient not safe to drive nor should hereturn to driving. Lipoma of right forearm 05/05/2017 Living will on file 03/26/2022 DPA: Refugio () Malignant neoplasm of prostate (HCC) 03/01/200802/09 PATH: Left Lobe: GS 7 ( 3+4) in 1/4 cores Right Lobe : GS 6 ( 3 +) in 3/5 cores External Beam Radiotherapy -- Dr. Rishabh Yao, Renetta Landry follow Mixed hyperlipidemia 12/03/2002 Muscle pain, lumbar 09/26/2019 Neck pain 04/18/2019 NAIN (obstructive sleep apnea) 06/09/2018 Wearing CPAP, Per Neurology (Dr. 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) ([facility]) 10/11/2024 Previous Surgical History PAST SURGICAL HISTORY Procedure Laterality Date 2D ECHO (EXEP) 02/11/2018 EF=65%, mild jain dysf, mildly enlarged LA, 2D ECHO (EXEP) 10/03/2020 EF=65%, mild Jain dysfunction, COLONOSCOPY FLX DX W/COLLJ SPEC WHEN PFRMD 02/2002 Colonoscopy COLONOSCOPY FLX DX W/COLLJ SPEC WHEN PFRMD 09/14/2007 normal COLONOSCOPY FLX DX W/COLLJ SPEC WHEN PFRMD 07/23/2012 normal COLONOSCOPY FLX DX W/COLLJ SPEC WHEN PFRMD 07/28/2018 Colonoscopy, repeat 5 years ESOPHAGOGASTRODUODENOSCOPY TRANSORAL DIAGNOSTIC 02/2002 EGD ESOPHAGOGASTRODUODENOSCOPY TRANSORAL DIAGNOSTIC 12/22/2002 hiatal hernia, distal esophagitis ESOPHAGOGASTRODUODENOSCOPY TRANSORAL DIAGNOSTIC 08/03/2015 EGD ESOPHAGOGASTRODUODENOSCOPY TRANSORAL DIAGNOSTIC 11/15/2015 EGD ESOPHAGOGASTRODUODENOSCOPY TRANSORAL DIAGNOSTIC 08/13/2020 EGD HEART CATHETERIZATION 2013 Angioplasty, Promus stent to right coronary LEXISCAN STRESS TEST 10/03/[address] Morton RPR UMBILICAL HRNA 5 YRS/> REDUCIBLE 2002 Family History FAMILY HISTORY Problem Relation Age of Onset Prostate Cancer Father Colon Cancer Father Dx in his 70s Heart Father Had heart issues per patient Heart Sister had bypass surgery (mid-40's) Heart Mother Had heart issues per patient Heart Brother had bypass surgery Patient Allergies ALLERGIES Allergen Reactions Zithromax [Azithrom* Itching Beta-Blockers (Beta* Unknown Lipitor [Atorvastat* Intolerance Viagra [Sildenafil] Unknown Zetia [Ezetimibe] Mental Status Change Current Medications Current Outpatient Medications on File Prior to Visit Medication Sig metoprolol succinate ER (TOPROL XL) 25 mg 24 hr tablet Take 3 tablets by mouth once daily. melatonin 3 mg tablet Take 2 tablets by mouth daily at bedtime. magnesium oxide (MAG-OX) 400 mg (241.3 mg magnesium) tablet Take 1 tablet by mouth two times a day. solifenacin (VESICARE) 5 mg tablet Take 1 tablet by mouth once daily. multivit-min/ferrous fumarate (MULTI VITAMIN ORAL) Take 1 tablet by mouth once daily. CINNAMON BARK ORAL Take 1,000 mg by mouth once daily. traZODone (DESYREL) 50 mg tablet 25-50 mg at bedtime as needed none insomnia- 12.5 mg up to 4 times a day for agitation donepezil (ARICEPT) 10 mg tablet Take 1 tablet by mouth daily at bedtime. memantine (NAMENDA) 10 mg tablet Take 1 tablet by mouth two times a day. amLODIPine (NORVASC) 10 mg tablet Take 1 tablet by mouth once daily. aspirin, enteric coated (ECOTRIN LOW STRENGTH) 81 mg EC tablet Take 1 tablet by mouth once daily. pantoprazole DR (PROTONIX) 40 mg tablet Take 1 tablet by mouth daily before breakfast. Take on empty stomach, 1/2 hr before meal. cholecalciferol (VITAMIN D3) 1,000 unit tab tablet Take 2,000 Units by mouth once daily. Patient should start on October 22, 2024. ASCORBIC ACID, VITAMIN C, ORAL Take 500 mg by mouth once daily. Patient should start on October. pyridoxine, vitamin B6, (VITAMIN B6) 50 mg tablet Take 3 tablets by mouth once daily for 14 doses. zinc sulfate 220 mg (50 mg zinc) capsule Take 1 capsule by mouth once daily for 12 doses. nitroglycerin sublingual (NITROSTAT) 0.4 mg SL tablet Dissolve 1 tablet under the tongue every 5 minutes as needed for chest pain. (Patient taking differently: Dissolve 0.4 mg under the tongue every 5 minutes as needed for chest pain. max dose of 3. If not relieve after 3 doses call 911) Blood Pressure Cuff - Home Use BLOOD PRESSURE CUFF FOR HOME USE. No current facility-administered medications on file prior to visit. Social History Social History Tobacco Use Smoking status: Former Current packs/day: 0.00 Average packs/day: 2.5 packs/day for 25.0 years (62.5 ttl pk-yrs) Types: Cigarettes Start date: 10/05/1953 Quit date: 10/05/1978 Years since quittin.1 Smokeless tobacco: Never Tobacco comments: quit 1978 Vaping Use Vaping status: Never Used Substance Use Topics Alcohol use: No Drug use: No Review of Symptoms REVIEW OF SYSTEMS See hpi EXAM: BP 118/84 Pulse (!) 57 Temp 36.5 C (97.7 F) Resp 16 Wt 91.2 kg (201 lb) SpO2 97% BMI 29.68 kg/m General Appearance: Well appearing, alert, in no acute distress, well-hydrated, well nourished.. Eyes: Anicteric sclera. Pupils are equally round and reactive to light. Extraocular movements are intact. . Ears: External ears normal, canals clear. Nose/Sinuses: Nares normal, septum midline, mucosa normal, no drainage or sinus tenderness. Oropharynx: Lips, mucosa, and tongue normal, teeth and gums normal, oropharynx normal. Neck: Supple, no adenopathy; thyroid symmetric, normal size, no bruits. Lungs: Lungs clear to auscultation. No wheezing, rhonchi, rales.. Heart: RRR without murmur, gallop, or rubs. No ectopy. Health Maintenance List Advance Directive Discussion due on 10/05/2024 RSV Vaccine(1 - 1-dose 75+ series) due on 04/11/2025 Covid-19 Vaccine() due on 02/13/2025 LDL Cholesterol due on 05/10/2025 Diabetes Screening due on 11/13/2027 DTaP,Tdap,Td Vaccine(3 - Td or Tdap) due on 04/09/2028 Spirometry Completed Influenza Vaccine Completed Shingrix Vaccine Completed Pneumococcal Vaccine: 50+ Completed Colorectal Cancer Screening Discontinued Data reviewed ASSESSMENT/PLAN: 1. URI, acute - ICD9: 465.9, ICD10: J06.9 - Discussed viral etiology and rationale for treatment. - Symptomatic treatment with prn analgesia - Supportive care with fluids and rest - No red flags on exam to warrant more aggressive testing or treatment. Discussed possible red flags and when to seek medical attention. Son agrees with plan of care. Questions addressed. Danita Meraz PA-C documented in this encounterMercy Health [facility]02-14-2025 NoteSt. [facility]02-14-2025 History of Present illness Narrative* Perla Cummings RN - 11/18/2024 5:34 PM EST CDM ENROLLMENT Provider Action / FYI: Refugio, validated caregiver for patient Advised VAN Reed checks w/ son on patient; will send message to her. politely declines CDM at this time and states: -patient has dementia -son Tim and dtr help a lot caring for patient -son spends night sometimes to ensure patient safe ( in hosp) Patient identified by name and date of . Discussed care with spouse. Program Details Chronic Disease Management Status: Declined Patient Declined - Initial Effective Dates: unknown - 11/18/2024 Responsible Staff: Perla Cummings RN Support and Services: None active Assessments CDM Assessment No documentation this encounter ADLs Patients can perform the following activities without help: Dressing: Yes Bathing: Yes Doing laundry: No Climbing a flight of stairs: No Walking briskly: No Instrumental activities of daily living Do you drive a car?: No Do you need help from others to take care of things inside the house, for example: laundry, house cleaning, preparing meals?: Yes Did you have the help you needed?: Yes Do you need help from others with errands outside the house, for example: shopping for groceries orclothes, going medical appointments?: Yes Did you have the help you needed?: Yes Fall Risk One or more falls in the last year:: No Any near falls in the last year?: No Advised to use a cane or walker to get around safely:: Yes Feels unsteady when walking:: No Steadies self on furniture while walking at home:: No Worried about falling:: No Needs to push with hands when rising from a chair:: No Has trouble stepping up onto a curb:: No Often has to morris to the toilet:: No Has lost some feeling in feet:: No Takes medicine that makes him/her feel lightheaded or more tired than usual:: No Takes medicine to sleep or improve mood:: No SDOH No documentation this encounter Interventions No episode Perla Cummings RN November 18, 2024 5:38 PM documented in this encounterMercy Health [facility]02-13-2025 Telephone encounter Note * Telephone Encounter - Lia To MA - 11/17/2024 3:08 PM EST Prescription Refill Information The patient has been identified by name and date of : Yes Caregiver verified no other encounters exist for this prescription request: Yes Caregiver confirmed with patient/requestor that no other refills are due, in the near future, with this provider at this time: Yes The last office visit in the department: 11/10/24 Does the patient have a future office visit with this provider/department: Yes Requested Prescriptions Pending Prescriptions Disp Refills metoprolol succinate ER (TOPROL XL) 25 mg 24 hr tablet 90 tablet 0 Sig: Take 3 tablets by mouth once daily. melatonin 3 mg tablet 60 tablet 0 Sig: Take 2 tablets by mouth daily at bedtime. magnesium oxide (MAG-OX) 400 mg (241.3 mg magnesium) tablet 60 tablet 0 Sig: Take 1 tablet by mouth two times a day. Lia To MA November 17, 2024 3:09 PM [facility]02-13-2025 Miscellaneous Notes* Telephone Encounter - Lia To MA - 11/17/2024 3:08 PM EST Prescription Refill Information The patient has been identified by name and date of : Yes Caregiver verified no other encounters exist for this prescription request: Yes Caregiver confirmed with patient/requestor that no other refills are due, in the near future, with this provider at this time: Yes The last office visit in the department: 11/10/24 Does the patient have a future office visit with this provider/department: Yes Requested Prescriptions Pending Prescriptions Disp Refills metoprolol succinate ER (TOPROL XL) 25 mg 24 hr tablet 90 tablet 0 Sig: Take 3 tablets by mouth once daily. melatonin 3 mg tablet 60 tablet 0 Sig: Take 2 tablets by mouth daily at bedtime. magnesium oxide (MAG-OX) 400 mg (241.3 mg magnesium) tablet 60 tablet 0 Sig: Take 1 tablet by mouth two times a day. Lia To MA November 17, 2024 3:09 PM documented in this encounterMercy Health [facility]02-10-2025 NoteSt. [facility]02-10-2025 History of Present illness Narrative* Brianna Doe RN - 11/14/2024 10:10 AM EST ED Follow-Up Note Provider Action / FYI: None Call completed by: RN Patient seen in ED: In Network ED Contact made with Patient: Yes The patient was identified by Name and Date of . High Pressure Boiler Operator call note: Spoke with son Tim who is caring for patient He notes that patient will be going back with his this for her to take care of him Tim notes that patient is feeling well today He declines need for ER follow-up appointment with Primary Care, but will call schedulers if they change their mind Patient denies any concerns/symptoms that require physician attention at this time Discussed Care with: airam Dumont Patient was seen in the Emergency Department (ED) Location: [place] Date: 11/13/24 Reason for ED Visit: Chest Pain/Abd Discomfort ED Intervention: patient evaluated, EKG and blood work were done and patient was discharged home New Medications: None Medication Changes: None Does patient understand medication changes: N/A Can patient afford medication changes: N/A Patient educated on worsening symptoms and when and where to seek additional care: Yes Patient Education Provided including treatment plan and new orders. Patient provided with appropriate counseling: Yes Based on process stripper, the following disposition is advised: No symptoms or symptoms present, not severe. Routed to: No Action Needed SAMIA Education Provided this Outreach: No Brianna Doe RN November 14, 2024 10:11 AM documented in this encounterMer[facility]-09-2025 NoteSt[facility]-20[facility] History of Present illness Narrative* Ayan LentzRt)Darling - 11/13/2024 11:42 AM EST Radiology Service Progress Note PATIENT NAME: Lory Johnson DATE OF SERVICE: November 13, 2024 TIME: 11:42 AM PATIENT IDENTITY VERIFICATION COMPLETED USING TWO (2) IDENTIFIERS: Name and Date of confirmedby patient verbally. FALL SCREENING: Has the patient had 2 falls in the last year or 1 fall with injury or currently using an Ambulatory Assistive Device (Walker, Cane, Wheelchair, Crutches, etc.)? Emergency Room Patient: Screened in ED PATIENT GENDER DATA: Assigned male at PATIENT RELEVANT IMPLANT DATA REVIEWED: Not Applicable PATIENT PRESENTS WITH AN IMPLANTABLE OR ATTACHED CLINICAL PROGRAM COORDINATOR: No RADIOLOGY DEPARTMENT: General X-ray: Exam(s) Completed: Chest X-Ray Abdomen X-Ray: Abdomen PERIPHERAL IV DATA: Not applicable SIGNED BY: RT Camejo Tech November 13, 2024 11:42 AM documented in this encounterMercy Health [facility]02-06-2025 NoteSt. [facility]02-06-2025 History of Present illness Narrative* Adama Mendoza MD - 11/10/2024 3:14 PM EST Chief Complaint Patient presents with: Pneumonia: Follow up HPI Lory Johnson is a 79 year old male who presents here today for Above Complaints.. Patient was seen on 10/24/2024 for /u [facility] for encephalopathy due to acute pneumonia. He has been doing better per son. Has just his standard cough. No fevers or chills. His dementia is back to base line. His mood has been better. He has been keeping the stage 2 ulcer on the left buttock covered. Son thinks it has covered over and looking better. Still has slight soreness when he sits on it. But not as bad. Past medical history, appointments, medications, allergies reviewed. Previous Medical History PAST MEDICAL HISTORY Diagnosis Date 3-vessel CAD 11/03/2013 Abdominal aortic aneurysm (AAA) without rupture ([facility]) 11/08/2016 US: 11/2016 2.6 x 2.4 x 2.0 cm, Repeat in a year US: 02/2018 Stable, 03/2019 US said no AAA, US 08/2020 no AAA no further studies needed. Actinic Keratoses (Premalignant AK's) 08/16/2013 Advance directive discussed with patient 03/26/2022 Discussed 03/2022 Anemia Anterior dislocation of right shoulder 10/31/2022 CAD S/P percutaneous coronary angioplasty 11/02/2013 Chronic left shoulder pain 06/30/2018 CKD (chronic kidney disease) stage 3, GFR 30-59 ml/min ([facility]) 04/11/2024 Dementia without behavioral disturbance ([facility]) 05/15/2016 MMSE: 22 05/2016, MMSE: 06/2019, 23 Elevated fasting blood sugar 12/01/2018 Emphysema lung ([facility]) 10/23/2023 Essential hypertension, benign 05/12/2006 Ex-smoker 10/31/2016 Started at age 15, up to 1 PPD quite at age 34 Fam hx-ischem heart disease 08/21/2009 Sister, mother Family history of colon cancer in father 06/09/2018 GERD without esophagitis 12/14/2018 History of CVA (cerebrovascular accident) 02/16/2018 Right posterior internal capsule Impaired driving skills 08/16/2019 Per Occupational Therapy Community Mobility and IADL report patient not safe to drive nor should hereturn to driving. Lipoma of right forearm 05/05/2017 Living will on file 03/26/2022 DPA: Ref[place] () Malignant neoplasm of prostate (HCC) 03/01/200802/09 PATH: Left Lobe: GS 7 ( 3+4) in 1/4 cores Right Lobe : GS 6 ( 3 +) in 3/5 cores External Beam Radiotherapy -- Dr. Rishabh Yao, Renetta Landry follow Mixed hyperlipidemia 12/03/2002 Muscle pain, lumbar 09/26/2019 Neck pain 04/18/2019 NAIN (obstructive sleep apnea) 06/09/2018 Wearing CPAP, Per Neurology (Dr. 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) 10/11/2024 Previous Surgical History PAST SURGICAL HISTORY Procedure Laterality Date 2D ECHO (EXEP) 02/11/2018 EF=65%, mild jain dysf, mildly enlarged LA, 2D ECHO (EXEP) 10/03/2020 EF=65%, mild Jain dysfunction, COLONOSCOPY FLX DX W/COLLJ SPEC WHEN PFRMD 02/2002 Colonoscopy COLONOSCOPY FLX DX W/COLLJ SPEC WHEN PFRMD 09/14/2007 normal COLONOSCOPY FLX DX W/COLLJ SPEC WHEN PFRMD 07/23/2012 normal COLONOSCOPY FLX DX W/COLLJ SPEC WHEN PFRMD 07/28/2018 Colonoscopy, repeat 5 years ESOPHAGOGASTRODUODENOSCOPY TRANSORAL DIAGNOSTIC 02/2002 EGD ESOPHAGOGASTRODUODENOSCOPY TRANSORAL DIAGNOSTIC 12/22/2002 hiatal hernia, distal esophagitis ESOPHAGOGASTRODUODENOSCOPY TRANSORAL DIAGNOSTIC 08/03/2015 EGD ESOPHAGOGASTRODUODENOSCOPY TRANSORAL DIAGNOSTIC 11/15/2015 EGD ESOPHAGOGASTRODUODENOSCOPY TRANSORAL DIAGNOSTIC 08/13/2020 EGD HEART CATHETERIZATION 2014 Angioplasty, Promus stent to right coronary LEXISCAN STRESS TEST 10/03/[address] Morton RPR UMBILICAL HRNA 5 YRS/> REDUCIBLE 2002 Family History FAMILY HISTORY Problem Relation Age of Onset Prostate Cancer Father Colon Cancer Father Dx in his 70s Heart Father Had heart issues per patient Heart Sister had bypass surgery (mid-40's) Heart Mother Had heart issues per patient Heart Brother had bypass surgery Patient Allergies ALLERGIES Allergen Reactions Zithromax [Azithrom* Itching Beta-Blockers (Beta* Unknown Lipitor [Atorvastat* Intolerance Viagra [Sildenafil] Unknown Zetia [Ezetimibe] Mental Status Change Current Medications Current Outpatient Medications on File Prior to Visit Medication Sig solifenacin (VESICARE) 5 mg tablet Take 1 tablet by mouth once daily. multivit-min/ferrous fumarate (MULTI VITAMIN ORAL) Take 1 tablet by mouth once daily. CINNAMON BARK ORAL Take 1,000 mg by mouth once daily. benzonatate (TESSALON PERLE) 100 mg capsule Take 1 capsule by mouth three times a day. magnesium oxide (MAG-OX) 400 mg (241.3 mg magnesium) tablet Take 1 tablet by mouth two times a day. melatonin 3 mg tablet Take 2 tablets by mouth daily at bedtime. metoprolol succinate ER (TOPROL XL) 25 mg 24 hr tablet Take 3 tablets by mouth once daily. pyridoxine, vitamin B6, (VITAMIN B6) 50 mg tablet Take 3 tablets by mouth once daily for 14 doses. zinc sulfate 220 mg (50 mg zinc) capsule Take 1 capsule by mouth once daily for 12 doses. traZODone (DESYREL) 50 mg tablet 25-50 mg at bedtime as needed none insomnia- 12.5 mg up to 4 times a day for agitation donepezil (ARICEPT) 10 mg tablet Take 1 tablet by mouth daily at bedtime. memantine (NAMENDA) 10 mg tablet Take 1 tablet by mouth two times a day. amLODIPine (NORVASC) 10 mg tablet Take 1 tablet by mouth once daily. aspirin, enteric coated (ECOTRIN LOW STRENGTH) 81 mg EC tablet Take 1 tablet by mouth once daily. pantoprazole DR (PROTONIX) 40 mg tablet Take 1 tablet by mouth daily before breakfast. Take on empty stomach, 1/2 hr before meal. nitroglycerin sublingual (NITROSTAT) 0.4 mg SL tablet Dissolve 1 tablet under the tongue every 5 minutes as needed for chest pain. (Patient taking differently: Dissolve 0.4 mg under the tongue every 5 minutes as needed for chest pain. max dose of 3. If not relieve after 3 doses call 911) cholecalciferol (VITAMIN D3) 1,000 unit tab tablet Take 2,000 Units by mouth once daily. Patient should start on October 22, 2024. ASCORBIC ACID, VITAMIN C, ORAL Take 500 mg by mouth once daily. Patient should start on October. Blood Pressure Cuff - Home Use BLOOD PRESSURE CUFF FOR HOME USE. No current facility-administered medications on file prior to visit. Social History Social History Tobacco Use Smoking status: Former Current packs/day: 0.00 Average packs/day: 2.5 packs/day for 25.0 years (62.5 ttl pk-yrs) Types: Cigarettes Start date: 10/05/1953 Quit date: 10/05/1978 Years since quittin.1 Smokeless tobacco: Never Tobacco comments: quit 1978 Vaping Use Vaping status: Never Used Substance Use Topics Alcohol use: No Drug use: No Review of Symptoms REVIEW OF SYSTEMS See HPI EXAM: BP 110/78 Pulse (!) 57 Ht 175.3 cm (5' 9) Wt 88.9 kg (196 lb) SpO2 97% BMI 28.94 kg/m Skin: Skin color, texture, turgor normal, no suspicious rashes or lesions. The stage 2 ulcer on theleft butt cheek is just a small red dot. Lungs: Lungs clear to auscultation. No wheezing, rhonchi, rales.. Health Maintenance List Advance Directive Discussion due on 10/05/2024 RSV Vaccine(1 - 1-dose 75+ series) due on 04/11/2025 LDL Cholesterol due on 05/10/2025 Diabetes Screening due on 10/18/2027 DTaP,Tdap,Td Vaccine(3 - Td or Tdap) due on 04/09/2028 Spirometry Completed Influenza Vaccine Completed Shingrix Vaccine Completed Covid-19 Vaccine Completed Pneumococcal Vaccine: 50+ Completed Colorectal Cancer Screening Discontinued Data reviewed A/P ASSESSMENT/PLAN: 1. Bacterial pneumonia - ICD9: 482.9, ICD10: J15.9 (primary diagnosis) - resolved. 2. Pressure injury of left buttock, stage 2 (HCC) - ICD9: 707.05, 707.22, ICD10: L89.322 - resolving and now just a small red dot. - patient to continue current Tx until no further redness. /u April for medicare wellness. Adama Mendoza MD documented in this encounterMercy Health [facility]02-03-2025 NoteSt. [facility]02-03-2025 History of Present illness Narrative* Adama Mendoza MD - 11/07/2024 4:11 PM EST Patient's home health 485 form / care plan for certification period 10/22/2024 to 12/20/2024 reviewedand signed. Relevant medical records were reviewed. No changes were indicated documented in this encounterMercy Health [facility]rbana [facility]01-30-2025 Telephone encounter Note * Telephone Encounter - Danita Meraz PA-C - 11/03/2024 2:40 PM EST The following approved medication requests have been transmitted electronically. Requested Prescriptions Signed Prescriptions Disp Refills solifenacin (VESICARE) 5 mg tablet 90 tablet 1 Sig: Take 1 tablet by mouth once daily. Authorizing Provider: DANITA MERAZ PA-C [facility]01-30-2025 Miscellaneous Notes* Telephone Encounter - Danita Meraz PA-C - 11/03/2024 2:40 PM EST The following approved medication requests have been transmitted electronically. Requested Prescriptions Signed Prescriptions Disp Refills solifenacin (VESICARE) 5 mg tablet 90 tablet 1 Sig: Take 1 tablet by mouth once daily. Authorizing Provider: DANITA MERAZ PA-C * Telephone Encounter - Brianna Doe RN - 11/03/2024 2:33 PM EST During Transition of Care telephone outreach call, patient requested refill on the following: Requested Prescriptions Pending Prescriptions Disp Refills solifenacin (VESICARE) 5 mg tablet 90 tablet 3 Sig: Take 1 tablet by mouth once daily. Preferred pharmacy [facility] with [facility] Last office visit: 10/24/2024 Next office visit: 11/10/2024 Brianna Doe RN High Pressure Boiler Operator Nurse documented in this encounter[address]30-2025 Telephone encounter Note * Telephone Encounter - Brianna Doe RN - 11/03/2024 2:33 PM EST During Transition of Care telephone outreach call, patient requested refill on the following: Requested Prescriptions Pending Prescriptions Disp Refills solifenacin (VESICARE) 5 mg tablet 90 tablet 3 Sig: Take 1 tablet by mouth once daily. Preferred pharmacy verified with patient as [facility] Last office visit: 10/24/2024 Next office visit: 11/10/2024 Brianna Doe RN High Pressure Boiler Operator Nurse [facility]01-30-2025 NoteSt. [facility]01-30-2025 History of Present illness Narrative* Brianna Doe RN - 11/03/2024 2:24 PM EST Transitional Care Management (TCM) Follow-Up Note PCP Update / Actionable Items Patient in need of refill on Vesicare-see separate refill encounter sent to PCP N/A - No specialty updates needed Patient Source: In-Network Discharge Follow-up outreach: TCM enrolled patient Outreach Summary: Spoke to airam Ceballos reports that patient is doing well-he has nothing new to report Patient has been discharged from home physical therapy and Occupational Therapy and went to a outpatient physical therapy appointment this week He is in need of refill on Vesicare-see encounter sent to PCP Son denies any concerns/symptoms that require physician attention at this time Patient discharged from [facility] Discharge date: 10/20/2024 Admitted for: Altered Mental Status/respiratory infection treated with antibiotcs Readmission Risk: 29% - High Risk Value-Based Contract: ACO Contact: Contact made with patient: Yes Spoke to: Tim Ceballos Validation: Validated the person spoken to is actively involved in the patient's care. The patient was identified by Name and Date of . I'd like to get an update on how you're doing since our last phone call. Is now a good time to talk? Yes Symptoms: Are you feeling about the same, better or worse since leaving the hospital? Better Weekly Outreach: 2nd Outreach Medications: Do you have any questions about taking your medications, including which medications you should be on, or do you need refills on your medications? No Patient Questions / Concerns: Do you have any questions related to your discharge? No Appointment / TCM Follow-Up: Have you had a follow-up visit with your Primary Care Provider or Specialist since you were discharged? Yes Do you need any assistance with scheduling or changing your follow-up appointments? Patient alreadyhas an appointment scheduled SDOH: Has Food and Housing been addressed in Social Determinants in the past 3 months? Yes Education N/A Targets addressed / completed during outreach: Prevent readmission for 30 days Outreach Outcome: Continue TCM Outreach for remainder of 30 days Care Management partners utilized: N/A Brianna Doe RN November 03, 2024 2:26 PM documented in this encounterMercy Health [facility]01-29-2025 Telephone encounter Note * Telephone Encounter - Adama Mendoza MD - 11/02/2024 3:20 PM EST Noted. [facility]01-29-2025 Miscellaneous Notes* Telephone Encounter - Adama Mendoza MD - 11/02/2024 3:20 PM EST Noted. * Telephone Encounter - Parrish Cotton PT - 10/27/2024 4:46 PM EST Eliezer, I spoke to the son, Tim, regarding home care services, considering pt went to outpatient PT today. Tim politely said he does not need to have home PT or OT for his father at this time- he feels that he is at his baseline, and would like to d/c services. Home PT and OT evals are cancelled per son's request. Parrish Wilson PT/Asst Rehab Mgr [phone] documented in this encounterMercy Health Urbana Hospital01-23-2025 Telephone encounter Note * Telephone Encounter - Parrish Cotton, PT - 10/27/2024 4:46 PM EST Eliezer, I spoke to the son, Tim, regarding home care services, considering pt went to outpatient PT today. Tim politely said he does not need to have home PT or OT for his father at this time- he feels that he is at his baseline, and would like to d/c services. Home PT and OT evals are cancelled per son's request. Parrish Wilson PT/Asst Rehab Mgr [phone] [facility] Work Phone: 1(573) 170-811201-23-2025 History of Present illness Narrative* Pino Chappell, PT - 10/27/2024 2:20 PM EST Program_ID:[id number] Access Code: [email or web address] URL: [email or web address] Date: 10-27-2024 Prepared By: Pino Chappell Program Notes Exercises - Supine Heel Slide - 1 x daily - 7 x weekly - 3 sets - 10 reps - Supine Active Straight Leg Raise - 1 x daily - 7 x weekly - 3 sets - 10 reps - Supine Hip Internal and External Rotation - 1 x daily - 7 x weekly - 3 sets - 10 reps * Pino Chappell, PT - 10/27/2024 1:56 PM EST Episode Visit Count: 1 Therapist That Will Accept/Oversee The Plan Of Care: Pino Chappell PT Start of Care Date: 10/27/24 Onset Date: 10/27/19 Plan of Care Certification Date: 10/27/24 Next Certification Due Date: 10/27/24 Patient Identified by Name and Date of : Yes REHABILITATION AND SPORTS THERAPY PHYSICAL THERAPY EVALUATION PLAN OF CARE: Assessment: Lory Johnson presents with chief complaint of L hip pain that interferes with sitting . The patient presents with impairments in independence in exercise, overall function, and range of motion. PROMIS (Patient-Reported Outcomes Measurement Information System) scores were reviewed and identified as within normal limits. Prognosis for therapy is Good due to: current objective clinical presentation . The patient will benefit from skilled therapy services to meet the goals established for this plan of care as noted below. Goals for Episode of Care: established 10/27/24 [place] in home exercise program. - Met Patient Goals: Get some exercises Time Frame for Goals and Treatment : 12/08/24 Planned Interventions, Frequency, and Duration: Current Frequency: Discontinue Therapy Services Duration: 1 visit Total Number of Visits Planned: 0 Planned Treatment Interventions: Therapeutic exercise (20379) PLAN FOR NEXT VISIT: NA due to DD/C Patient demonstrates good understanding of plan of care and treatment. The above goals and plan of care were discussed and agreed upon by patient/family. SUBJECTIVE: Not having hip pain now. Had hip pain 5 years ago. Pt does not get pain when walking but does when sitting. No popping/clicking. Patient Goals: Get some exercises Functional Limitations: sitting Prior Level of Function: Independent without limitations Intake Information: Prescription present Previous Treatment: None Pain: Pain Pain Level: (Moderate amount) Pain Location: Hip - Left PROMIS Scales 10/27/2024 11/03/2019 Higher is Better Phys Func - T Score 53 (within normal limits) 53 (within normal limits) Phys Func - Percentile 62 62 Self-Eff Symptom - T Score 40 (Average) Self-Eff Symptom - Percentile 16 T-scores: mean of general population = 50. 5 points is clinically meaningfully difference Percentiles provide an indication of how the patient's score ranks in relation to the general population. Higher percentile rankings indicate better function/quality of life. 50th percentile is the average of the general population and indicates half of respondents had a worse score. OBJECTIVE MEASURES WITH LEVEL OF FUNCTION: Hip Observations L Hip Palpation Tenderness: Greater trochanter LE AROM R Hip Flexion: 100 Degrees R Hip Internal Rotation: 15 Degrees R Hip External Rotation: 40 Degrees L Hip Flexion: 100 Degrees (pants may be limiting) L Hip ABduction : 30 Degrees (Painful) L Hip Internal Rotation: 5 Degrees (end range pain) L Hip External Rotation: 40 Degrees LE Flexibility Flexibility: Straight Leg Raise R SLR Flexibility: Moderate limitation L SLR Flexibility: Moderate limitation Gait Gait Observation: WNL Education: Education Learning Preferences: Demonstration, Explanation, Performance, Printed Materials Barriers: None Learning/educational needs: Home exercise program, Plan of Care, Changes in Plan of Care Education Provided: Yes, see treatment interventions for education provided Education Provided To: Patient Education Mode/Type: Demonstration, Explanation/Discussion, Literature/Printed Materials, Performance Response to Education/Teach Back: States/Identifies, Return Demonstration TREATMENT: PT Treatment Interventions: Therapeutic Exercise Evaluation Therapeutic Exercise: 1: Discussed exam findings, purpose of the HEP and the HEP handout was provided to the pt. HEP discussed in detail with how to safely and properly perform each therapeutic exercise. 2: LLE heel slides supine x 10 3: Hip log roll (IR/ER) x 10 4: Supine SLR x 10 Skilled Intervention: Patient was educated in proper exercise technique and purpose for exercises. Provided written instruction for home exercise program to facilitate proper performance and compliance. Correct performance of therapeutic exercises was facilitated with verbal cuing. Billing * Evaluation Low Complexity: 1 Unit Therapeutic Exercise Treatment Minutes: 12 Skilled Treatment Time Minutes (timed and untimed codes): 35 Total Session Time (minutes): 35 Session Start Time : 1401 Session Stop Time : 1436 Pino Chappell PT documented in this encounterMercy Health [facility]rbana Hospital01-23-2025 [facility]01-23-2025 NoteSt. [facility]01-23-2025 History of Present illness Narrative* Brianna Doe RN - 10/27/2024 12:10 PM EST Transitional Care Management (TCM) Follow-Up Note PCP Update / Actionable Items None N/A - No specialty updates needed Patient Source: In-Network Discharge Follow-up outreach: TCM enrolled patient Outreach Summary: Spoke to son Tim due to patient's advanced Alzheimers Patient is improving and getting back to baseline He had appt with PCP this week for TCM follow up Vesicare was restarted and patient was prescribed antibiotc for cough - cough has now resolved, butthey will continue to administer full course of antibiotics Home Care continues to visit patient and he will be starting outpatient physical therapy Home Care nurse is trying to assist with getting patient a sooner Neurology appt PRN Trazadone (at low doses, half or quarter of tablet) is currently be used sparingly due to son'sconcern with patient's safey when he is taking it - they intend to discuss further options when they have appt with Neurology Son denies any concerns/symptoms that require physician attention at this time Patient discharged from [facility] Discharge date: 10/20/2024 Admitted for: Altered Mental Status/respiratory infection treated with antibiotcs Readmission Risk: 29% - High Risk Value-Based Contract: ACO Contact: Contact made with patient: Yes Spoke to: Tim Ceballos (current caregiver) Validation: Validated the person spoken to is actively involved in the patient's care. The patient was identified by Name and Date of . I'd like to get an update on how you're doing since our last phone call. Is now a good time to talk? Yes Symptoms: Are you feeling about the same, better or worse since leaving the hospital? Better Weekly Outreach: 1st Outreach Medications: Do you have any questions about taking your medications, including which medications you should be on, or do you need refills on your medications? No Patient Questions / Concerns: Do you have any questions related to your discharge? No Appointment / TCM Follow-Up: Have you had a follow-up visit with your Primary Care Provider or Specialist since you were discharged? Yes Do you need any assistance with scheduling or changing your follow-up appointments? Patient alreadyhas an appointment scheduled Education N/A Targets addressed / completed during outreach: Patient has TCM appointment with PC within 14 days Prevent readmission for 30 days Outreach Outcome: Continue TCM Outreach for remainder of 30 days Care Management partners utilized: N/A Brianna Doe RN October 27, 2024 12:14 PM documented in this encounterMercy Health [facility]01-23-2025 Telephone encounter Note * Telephone Encounter - Dedra Chamorro - 10/27/2024 10:42 AM EST There has been a delay in service for Home Care PT, OT Evaluation for this patient due to schedule conflict. Patient was notified on 10/27/24. Thank you for this referral, please contact us with any questions. Dedra Chamorro [facility]01-23-2025 Miscellaneous Notes* Telephone Encounter - Dedra Chamorro - 10/27/2024 10:42 AM EST There has been a delay in service for Home Care PT, OT Evaluation for this patient due to schedule conflict. Patient was notified on 10/27/24. Thank you for this referral, please contact us with any questions. Dedra Chamorro documented in this encounterMercy Health Urbana [facility]01-22-2025 Telephone encounter Note * Telephone Encounter - Gail Reddy RN - 10/26/2024 9:[address] Kitchen. saw patient for home care routine visit. Pt. was started on Trazodone HSwhile admitted to the hospital. Pts. son states he stopped giving it to him 3 days go. Pt. had become incontinent at night and had great difficulty ambulating at night when he did wake up. Son is concerned he is going to fall. This has improved the past 3 days. Son is asking if he can give this medication on a PRN basis? Thank you in advance for your time! [facility] Work Phone: [phone] Miscellaneous Notes* Telephone Encounter - Gail Reddy RN - 10/26/2024 9:[address] Kitchen. saw patient for home care routine visit. Pt. was started on Trazodone HSwhile admitted to the hospital. Pts. son states he stopped giving it to him 3 days go. Pt. had become incontinent at night and had great difficulty ambulating at night when he did wake up. Son is concerned he is going to fall. This has improved the past 3 days. Son is asking if he can give this medication on a PRN basis? Thank you in advance for your time! documented in this encounterMer[facility]01-22-2025 Miscellaneous Notes* Telephone Encounter - Gail Reddy RN - 10/26/2024 9:49 PM EST [place] evening Dr. Mendoza. saw patient for routine home care visits. There are new severe drug interactions noted between solifenacin and potassium chloride ER. Pt. Is on potassium until 10/30. Is itokay for patient to continue taking both of these medications? Thank you in advance for your time! documented in this encounterMer[facility]01-22-2025 Telephone encounter Note * Telephone Encounter - Gail Reddy RN - 10/26/2024 9:49 PM EST [place] evening Dr. Mendoza. saw patient for routine home care visits. There are new severe drug interactions noted between solifenacin and potassium chloride ER. Pt. Is on potassium until 10/30. Is itokay for patient to continue taking both of these medications? Thank you in advance for your time! [facility] Work Phone: [phone] Miscellaneous Notes* [facility] Routine - Gail Reddy RN - 10/25/2024 4:52 PM EST SITUATION: Mcc routine visit completed today. son also present during today's visit. patient and caregiver reports the following: Allergies--reviewed Medications--reviewed current medications Falls--None DME-Reviewed and added to chart BACKGROUND: Reason for Home Care: Dietary zinc deficiency ASSESSMENT: SN greeted at door by caregiver. Upon entrance patient found in chair Patient appears in no acute distress. Patient/CG concerns verbalized today: see below Vitals (see flow sheet for details): stable SN findings today: solifenacin and potassium chloride ER severe drug interactions noted Skip Reddy RN 10/25/24 MD torres WOR Pt. saw PCP yesterday. Pt.has crackles in right lobes and so patient was started on amoxicillin and vesicare was restarted by PCP. Son present during visit and states he has no been giving patient trazadone. It makes him too tired and patient becomes incontinent at night. Cg feels he is doing much better after not having it at night. SN messaged neurologist regarding thismedication. Son would like to know if it can be given PRN. WOR. Care plan education reinforced. No other acute concerns during todays visit. See intervention summary for education details. Patient demonstrated a need for further skilled SN services for chronic disease management & education, medication education and wound/skin care. Current Discharge plan: family support RECOMMENDATION: Next visit to focus on (be specific): Care plan education documented in this encounterMer[facility]01-21-2025 Patient's home Note* SN Routine - Gail Reddy RN - 10/25/2024 4:52 PM EST SITUATION: Mcc routine visit completed today. son also present during today's visit. patient and caregiver reports the following: Allergies--reviewed Medications--reviewed current medications Falls--None DME-Reviewed and added to chart BACKGROUND: Reason for Home Care: Dietary zinc deficiency ASSESSMENT: SN greeted at door by caregiver. Upon entrance patient found in chair Patient appears in no acute distress. Patient/CG concerns verbalized today: see below Vitals (see flow sheet for details): stable SN findings today: solifenacin and potassium chloride ER severe drug interactions noted Skip Reddy RN 10/25/24 notfied WOR Pt. saw PCP yesterday. Pt.has crackles in right lobes and so patient was started on amoxicillin and vesicare was restarted by PCP. Son present during visit and states he has no been giving patient trazadone. It makes him too tired and patient becomes incontinent at night. Cg feels he is doing much better after not having it at night. SN messaged neurologist regarding thismedication. Son would like to know if it can be given PRN. WOR. Care plan education reinforced. No other acute concerns during todays visit. See intervention summary for education details. Patient demonstrated a need for further skilled SN services for chronic disease management & education, medication education and wound/skin care. Current Discharge plan: family support RECOMMENDATION: Next visit to focus on (be specific): Care plan education [facility] Work Phone: [phone]) 209-802601-20-2025 History of Present illness Narrative* Adama Mendoza MD - 10/24/2024 1:00 PM EST Chief Complaint Patient presents with: Hospital F/U HPI Lory Johnson is a 79 year old male who presents here today for Hospital Discharge Follow up and was admitted mental status changes/hypersomnolence. 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 Dementia with worsening pulmonary function with lung infection. Patient was treated with antibiotics. Patient will have PT/OT along with home nurse to help with medication adjustments. 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 Patient was seen with son at the bedside. Patient was disoriented and was unable to say where he is at and unable to explain the reason why he was admitted in the hospital. Son was at the bedside and he did not recognize his son which the son said is usual for him. Son stated that his father was prescribed 25mg Seroquel to take at bedtime because he has been wandering in the middle of the night and has been sundowning a lot in the evenings, keeping him up at night and currently he has hired someone 3 nights a week to watch him so he can sleep. However , he did not start taking the Seroquel until yesterday evening when they came back very tired after being out all day though they did manage to eat in between . Son stated that he gave him 25 mg of Seroquel and in addition just as he was advised he increase his melatonin from 5 to 10 mg which he also took last night. He subsequently slept in the living room and was hard to arouse later and his son had to help him get to his room and he noted his speech wasslurred and he needed a lot of assistance to get him to his bedroom. This morning he tried to arouse him but he could not wake him up. 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 Son also reported that he did not notice him dragging his leg when he was helping him to his bedroom last night and he did not notice any other weakness on one limb more than the other. He stated the patient has been sleeping for most of the day th ough he is currently awake now however is disoriented. He was able to tell me his name, his date of , the month which the son said is very difficult for him to remember but he does not know the year and he does not know where he is at. He does deny having any pain. He agrees that he has some cough but he does not know the duration of the cough. Son was at the bedside and stated that he has not had any cough until today but he seemed to be coughing a lot during the encounter. Son noted that he went with his father to visit his mother at the rehab facility and they were informed that she had influenza type A however they did wear a facemask during the visit. He denies noticing any other symptoms from the patient and patient denies any other s ymptoms including headache, chest pain, shortness of breath, nausea, vomiting, diarrhea no abdominal pain no chest pain. Of note, patient currently follows outpatient with neurology as well as [facility].He is currently taking Aricept and Namenda. He previously used to use a CPAP machine but has not used it since June as felt it was not necessary since he has been doing okay without it. He did have an EEG in January 2024 which showed findings suggestive of cerebral dysfunction with potential epileptogenicity in the by frontocentral regions more on the right and also evidence of mild encephalopathy but no EEG seizures noted. Per chart review, these findings have been discussed with family and antiepileptic drug therapy was recommended but family declined. At the emergency room, blood pressure 181/84, pulse 65, temperature 97.6, respiratory rate 18, [id number]% on room air. LABS: CBC: Hemoglobin 12.8(was 13.3 on 06/15/2024). WBC and platelets normal CMP: Creatinine 1.23(was 1.25 on 05/10/2024), BUN 18, glucose 107, potassium 3.7, chloride 108, CO2 25, albumin 3.5, total bilirubin/alkaline phosphatase/AST/ALT normal Ma.6 Lactate 1.1 Urinalysis 1+ protein CT brain: No acute process Patient is currently being admitted for evaluation for altered mental status. The medical floor he is awake and alert though dehydrated. Was admitted pulmonary infection was evaluated for and no pneumonia was found and nothing that required antibiotic treatment. Treated adjustment of medications with discharge with home with home health care. MRI of the brain showed frontal lobes were most affected with microvascular ischemia but itwas diffuse consistent with aging no tumor subdural hematoma etc. found. EK10/15/2024 normal sinus rhythm normal EKG borderline first-degree AV block normal axis with Q waves in 3. This is similar to EKGs 10/14/2024 and similar to written report from 02/25/2018 ECHOCARDIOGRAM: 10/31/2020 Normal LV function with EF 65% grade 1 diastolic dysfunction no regional wall motion abnormality right ventricle is normal. No valvular disease normal atrial function and size Patient was started on Benzonatate 100 mg capsule 1 TID for cough. Magnesium oxide 400 mg BID Melatonin 3 mg tablet (2) tablets at bedtime Potassium Chloride 10 MeQ BID for 10 days. Pyridoxine (vitamin B6 50 mg (3) tablets for 14 days Trazodone 50 mg 25-50 mg at bedtime as needed; none insomnia 12.5 mg up to 4 times a day for agitation. Zinc 50 mg daily for 12 doses. (Starting October 21) Medication changes: Metoprolol 25 mg (3) tablets daily starting 10/21/[address] the metoprolol succinate 50 mg 1.5 tabs a day, Patient was not set up with Neuro for f/u even though the issue of his encephalopathy was related to the Seroquel they tried placing him on. Patient has tried on the Trazodone with benefit some nights but not other nights. Son wants to use it prn. Patient was taken off the Vesicare and since then has had increased issues with wetting himself and the bed. He has also had episodes of getting up at night and getting dressed to leave. Patient still has the cough that is moist. Not sure if what the color his sputum is since he swallows it. He has had no fevers vomiting or diarrhea. Past medical history, appointments, medications, allergies reviewed. Previous Medical History PAST MEDICAL HISTORY Diagnosis Date 3-vessel CAD 11/03/2013 Abdominal aortic aneurysm (AAA) without rupture ([facility]) 11/08/2016 US: 11/2016 2.6 x 2.4 x 2.0 cm, Repeat in a year US: 02/2018 Stable, 03/2019 US said no AAA, US 08/2020 no AAA no further studies needed. Actinic Keratoses (Premalignant AK's) 08/16/2013 Advance directive discussed with patient 03/26/2022 Discussed 03/2022 Anemia Anterior dislocation of right shoulder 10/31/2022 CAD S/P percutaneous coronary angioplasty 11/02/2013 Chronic left shoulder pain 06/30/2018 CKD (chronic kidney disease) stage 3, GFR 30-59 ml/min ([facility]) 04/11/2024 Dementia without behavioral disturbance ([facility]) 05/15/2016 MMSE: 22 05/2016, MMSE: 06/2019, 23 Elevated fasting blood sugar 12/01/2018 Emphysema lung (HCC) 10/23/2023 Essential hypertension, benign 05/12/2006 Ex-smoker 10/31/2016 Started at age 15, up to 1 PPD quite at age 34 Fam hx-ischem heart disease 08/21/2009 Sister, mother Family history of colon cancer in father 06/09/2018 GERD without esophagitis 12/14/2018 History of CVA (cerebrovascular accident) 02/16/2018 Right posterior internal capsule Impaired driving skills 08/16/2019 Per Occupational Therapy Community Mobility and IADL report patient not safe to drive nor should hereturn to driving. Lipoma of right forearm 05/05/2017 Living will on file 03/26/2022 DPA: [place] () Malignant neoplasm of prostate (HCC) 03/01/200802/09 PATH: Left Lobe: GS 7 ( 3+4) in 1/4 cores Right Lobe : GS 6 ( 3 +) in 3/5 cores External Beam Radiotherapy -- Dr. Rishabh Yao, Renetta Landry follow Mixed hyperlipidemia 12/03/2002 Muscle pain, lumbar 09/26/2019 Neck pain 04/18/2019 NAIN (obstructive sleep apnea) 06/09/2018 Wearing CPAP, Per Neurology (Dr. 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 ([facility]) ([facility]) 10/11/2024 Previous Surgical History PAST SURGICAL HISTORY Procedure Laterality Date 2D ECHO (EXEP) 02/11/2018 EF=65%, mild jain dysf, mildly enlarged LA, 2D ECHO (EXEP) 10/03/2020 EF=65%, mild Jain dysfunction, COLONOSCOPY FLX DX W/COLLJ SPEC WHEN PFRMD 02/2002 Colonoscopy COLONOSCOPY FLX DX W/COLLJ SPEC WHEN PFRMD 09/14/2007 normal COLONOSCOPY FLX DX W/COLLJ SPEC WHEN PFRMD 07/23/2012 normal COLONOSCOPY FLX DX W/COLLJ SPEC WHEN PFRMD 07/28/2018 Colonoscopy, repeat 5 years ESOPHAGOGASTRODUODENOSCOPY TRANSORAL DIAGNOSTIC 02/2002 EGD ESOPHAGOGASTRODUODENOSCOPY TRANSORAL DIAGNOSTIC 12/22/2002 hiatal hernia, distal esophagitis ESOPHAGOGASTRODUODENOSCOPY TRANSORAL DIAGNOSTIC 08/03/2015 EGD ESOPHAGOGASTRODUODENOSCOPY TRANSORAL DIAGNOSTIC 11/15/2015 EGD ESOPHAGOGASTRODUODENOSCOPY TRANSORAL DIAGNOSTIC 08/13/2020 EGD HEART CATHETERIZATION 2013 Angioplasty, Promus stent to right coronary LEXISCAN STRESS TEST 10/03/[address] Morton RPR UMBILICAL HRNA 5 YRS/> REDUCIBLE 2002 Family History FAMILY HISTORY Problem Relation Age of Onset Prostate Cancer Father Colon Cancer Father Dx in his 70s Heart Father Had heart issues per patient Heart Sister had bypass surgery (mid-40's) Heart Mother Had heart issues per patient Heart Brother had bypass surgery Patient Allergies ALLERGIES Allergen Reactions Zithromax [Azithrom* Itching Beta-Blockers (Beta* Unknown Lipitor [Atorvastat* Intolerance Viagra [Sildenafil] Unknown Zetia [Ezetimibe] Mental Status Change Current Medications Current Outpatient Medications on File Prior to Visit Medication Sig multivit-min/ferrous fumarate (MULTI VITAMIN ORAL) Take 1 tablet by mouth once daily. CINNAMON BARK ORAL Take 1,000 mg by mouth once daily. benzonatate (TESSALON PERLE) 100 mg capsule Take 1 capsule by mouth three times a day. magnesium oxide (MAG-OX) 400 mg (241.3 mg magnesium) tablet Take 1 tablet by mouth two times a day. melatonin 3 mg tablet Take 2 tablets by mouth daily at bedtime. metoprolol succinate ER (TOPROL XL) 25 mg 24 hr tablet Take 3 tablets by mouth once daily. potassium chloride ER (KLOR-CON M10) 10 mEq tablet Take 1 tablet by mouth two times a day for 10 days. pyridoxine, vitamin B6, (VITAMIN B6) 50 mg tablet Take 3 tablets by mouth once daily for 14 doses. zinc sulfate 220 mg (50 mg zinc) capsule Take 1 capsule by mouth once daily for 12 doses. traZODone (DESYREL) 50 mg tablet 25-50 mg at bedtime as needed none insomnia- 12.5 mg up to 4 times a day for agitation donepezil (ARICEPT) 10 mg tablet Take 1 tablet by mouth daily at bedtime. memantine (NAMENDA) 10 mg tablet Take 1 tablet by mouth two times a day. amLODIPine (NORVASC) 10 mg tablet Take 1 tablet by mouth once daily. aspirin, enteric coated (ECOTRIN LOW STRENGTH) 81 mg EC tablet Take 1 tablet by mouth once daily. pantoprazole DR (PROTONIX) 40 mg tablet Take 1 tablet by mouth daily before breakfast. Take on empty stomach, 1/2 hr before meal. nitroglycerin sublingual (NITROSTAT) 0.4 mg SL tablet Dissolve 1 tablet under the tongue every 5 minutes as needed for chest pain. cholecalciferol (VITAMIN D3) 1,000 unit tab tablet Take 2,000 Units by mouth once daily. Patient should start on October 22, 2024. ASCORBIC ACID, VITAMIN C, ORAL Take 500 mg by mouth once daily. Patient should start on October. Blood Pressure Cuff - Home Use BLOOD PRESSURE CUFF FOR HOME USE. No current facility-administered medications on file prior to visit. Social History Social History Tobacco Use Smoking status: Former Current packs/day: 0.00 Average packs/day: 2.5 packs/day for 25.0 years (62.5 ttl pk-yrs) Types: Cigarettes Start date: 10/05/1953 Quit date: 10/05/1978 Years since quittin.0 Smokeless tobacco: Never Tobacco comments: quit 1978 Vaping Use Vaping status: Never Used Substance Use Topics Alcohol use: No Drug use: No Review of Symptoms REVIEW OF SYSTEMS See HPI EXAM: BP 150/78 Pulse 62 Temp 36.1 C (97 F) (Tympanic) Resp 18 Wt 89.8 kg (198 lb) SpO2 99% BMI 29.24 kg/m General Appearance: Well appearing, alert, in no acute distress, well-hydrated, well nourished.. Skin: Skin color, texture, turgor normal. The area on the left buttock is slightly deeper but only a stage two and looks good. No puss or wetness. Lungs: has a slight wheeze on the lefdt lower base with crackles. Heart: RRR without murmur, gallop, or rubs. No ectopy. Abdomen: Normal abdominal exam, Abdomen soft, non-tender. Bowel sounds normal. No masses, organomegaly. Health Maintenance List Advance Directive Discussion due on 10/05/2024 RSV Vaccine(1 - 1-dose 75+ series) due on 04/11/2025 LDL Cholesterol due on 05/10/2025 Diabetes Screening due on 10/18/2027 DTaP,Tdap,Td Vaccine(3 - Td or Tdap) due on 04/09/2028 Spirometry Completed Influenza Vaccine Completed Shingrix Vaccine Completed Covid-19 Vaccine Completed Pneumococcal Vaccine: 50+ Completed Colorectal Cancer Screening Discontinued Data reviewed A/P ASSESSMENT/PLAN: 1. Acute encephalopathy - ICD9: 348.30, ICD10: G93.40 (primary diagnosis) - seems to be resolved and secondary to the Seroquel. - advised on ok to use the Trazodone as prn. 2. 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 3. Dementia with behavioral disturbance ([facility]) - ICD9: 294.21, ICD10: F03.918 - as above. 4. Muscular deconditioning - ICD9: 781.99, ICD10: R29.898 - patient will be having Home PHYSICAL THERAPY and OT which he should have. 5. Pneumonia of left lower lobe due to infectious organism - ICD9: 486, ICD10: J18.9 Will treat with - AMOXICILLIN 875 MG-POTASSIUM CLAVULANATE 125 MG TABLET twice a day for 10 days. 6. Decubitus ulcer of left buttock, stage 2 ([facility]) - ICD9: 707.05, 707.22, ICD10: L89.322 - son to continue with current care. We re-discussed use of barrier cream. Advised on skin tear resistant bandages. Requested Prescriptions Signed Prescriptions Disp Refills solifenacin (VESICARE) 5 mg tablet 0 Sig: Take 1 tablet by mouth once daily. amoxicillin-clavulanate potassium (AUGMENTIN) 875-125 mg per tablet 20 tablet 0 Sig: Take 1 tablet by mouth two times a day for 10 days. F/u in 2 weeks for f/u pneumonia and decubitus ulcer. Will need Zinc, B6, Mg and potassium levels repeated then. I spent a total of 54 minutes on the date of the service which included preparing to see the patient, [id number] patient care, completing clinical documentation, performing a medically appropriate examination, counseling and educating the patient/family/caregiver and ordering medications, tests, or procedures. Adama Mendoza MD The sensitive examination was discussed with the Patient or Patient's Authorized Discharge Planner. Asapplicable, any other physician, advance practice provider, medical student, or other health professional student that will be observing or involved in the sensitive examination for educational or training purposes was discussed with the Patient or Authorized Discharge Planner. The Patient or Authorized Discharge Planner has agreed to proceed with the sensitive examination. (Sensitive examination includes inspection and/or palpation of the breasts, pelvis, prostate and anorectal regions) documented in this encounterMercy [facility]01-[facility]-2025 Note[facility]-2025 NoteSt. [facility]01-17-2025 History of Present illness Narrative* Clemencia Population Health NavigatorKeisha - 10/21/2024 10:22 AM EST POPULATION HEALTH NAVIGATION OUTREACH Action/FYI Spoke to patients airam aguilar, scheduled TCM follow up with pcp on 10-24-24 discharged from [facility] Discharge date: 10/20/2024 Admitted for: Altered Mental Status/respiratory infection treated with antibiotcs Readmission Risk: 29% - High Risk Reason for Outreach Community Monitoring/Network Navigator Pools & Phone Line: CM Pool Patient Contacted: Spoke to patient/parent/or legal guardian Patient identified by name and : Yes Community Monitoring/Network Navigator Pools & Phone Line actions taken: Patient scheduled: Hospital Follow-up: High risk >15% 10/22/2024 in HOME CARE with [facility], [place] [id number] CM Key [id number] 10/20 Dietary zinc deficiency 10/23/2024 in HOME CARE with [facility], [place] [id number] PTE 10/23-10/2710/24/2024 in HOME CARE with [facility]ARE, [place] [id number] OTE 10/23-10/2710/24/2024 in [facility] with ADAMA MENDOZA - discharged from [facility], Discharge date: 10/20/2024, Admitted for: Altered Mental Status/respiratory infection treated with antibiotcs, Readmission Risk: 29% - High Risk 10/28/2024 in PT [facility] with PINO CHAPPELL - rescheduled from 10/07, Left hip pain [M25.552] 12/05/2024 in NEUR ADULT [facility] with SHAYE KITCHEN JR - Follow up 9 months memory Navigation Signature: Keisha Khanna [facility] Navigator October 21, 2024 10:22 AM Electronically signed by Clemencia [facility] Navigator, Keisha Coats at 10/21/2024 10:23 AM ALEC * Brianna Doe RN - 10/21/2024 9:53 AM EST Images from the original note were not included. Transition Care Management (TCM) Initial Outreach PCP Update / Actionable Items None Navigation Team Update / Actionable Items Patient in need of TCM appt with Primary Care Readmission risk score: 29%-High Risk High Risk indicates need for appt within 1 week of discharge Call should be made to airam Aguilar at [phone] [facility] Referral Source of Stratification: [facility] Admission Status: Discharged Readmission Risk Score: 29%-high risk Patient meets program referral criteria: No Patient does not qualify for High Risk TCM Home Visit program due to: Readmission Risk Score does not meet criteria Disposition: Patient does not qualify for [facility], will provide TCM outreach follow-up for 30-days Patient Source: In-Network Discharge Initial outreach: TCM discharge report Outreach Summary: Main contact number is for Refugio, who is currently hospitalized herself Call should be made to airam Aguilar at [phone] Jeff reports that patient is doing well He slept well, had a shower this morning and is up watching television Home care is scheduled to start tomorrow and patient also has an aide that comes 3 nights per week to assist son Son declines need to review medication changes as he went through the discharge paperwork yesterdaythoroughly Discharge instructions were reviewed Son denies any concerns/symptoms that require physician attention at this time Patient discharged from [facility] Discharge date: 10/20/2024 Admitted for: Altered Mental Status/respiratory infection treated with antibiotcs Readmission Risk: 29% - High Risk Value-Based Contract: ACO Contact: Contact made with patient: Yes Hi, my name is Brianna Doe RN and I am calling from the [facility] on behalf of your Primary Care Provider, Adama Mendoza MD. I understand you were recently in the hospital, so I am calling to check in with you to ensure you are feeling well now that you are home. May I ask you a few questions related to your hospital stay and well-being? Yes Spoke to: Son, Tim Validation: Validated the person spoken to is actively involved in the patient's care. The patient was identified by Name and Date of . Symptoms: Are you feeling about the same, better or worse since leaving the hospital? Same Medications: Do you have any questions about taking your medications, including which medications you should be on, or do you need refills on your medications? No Medication Review: Declined at this time per patient preference Discharge Instructions: Your Discharge Instructions / After Visit Summary (AVS) are important in guiding you through the recovery process. Do you have any questions related to your discharge instructions? No Discharge instructions reviewed as noted on AVS: Home Care: Were you discharged with home care? Yes Has your Home Care Agency contacted you? Yes Name of Home Care Agency: [facility] Phone number, if available: [phone] Start of Home Care services date: 10/22/2024 Home care services included: Nursing Physical / Occupational Therapy Equipment: Do you have all the necessary equipment and supplies needed at your home? Not applicable Social: Your mental health is as important to us as your physical health. Would you mind answering a few questions on this topic? Yes On the Storyboard review: Food Insecurity, Transportation, Depression, Housing, and Financial Strain: Complete any SDOHs, listed above, if not addressed in the past 3 months. If all SDOHs, listed above, have been addressed within the last 3 months, confirm responses and update any SDOHs that have changed. Action Taken: No needs verbalized. No action required. Follow-Up Appointment: [Appointment / TCM Follow-up within 14 days] I would like to help you schedule a hospital follow-up virtual or telephone visit with your PCP. This is a great way for you to connect with your provider to ensure you have safely transitioned home.If you are agreeable, I will send your request to a appointment scheduler who will contact and assist you with that appointment. This will give you an opportunity to ask any questions or address any concerns youmay have with your PCP. Inform the patient that if they have any questions or concerns prior to that appointment, to call their PCP's office right away. Appointment Action: Patient desires an appointment. Complete Navigation Team box and route to [facility] ([phone]) for scheduling. Education Patient and family educated on issues/questions related to reason for admission, transition of caretopics, and follow-up needed upon discharge. Targets addressed / completed during outreach: Contact patient within two (2) business days Patient has TCM appointment with PC within 14 days Prevent readmission for 30 days Outreach Outcome: Enrolled in TCM Care Management partners utilized: Navigation Team Brianna Doe RN October 21, 2024 9:59 AM documented in this encounter[facility] Telephone encounter Note* Telephone Encounter - Adama Mendoza MD - 10/20/2024 2:12 PM EST yes [facility]01-16-2025 Miscellaneous Notes* Telephone Encounter - Adama Mendoza MD - 10/20/2024 2:12 PM EST yes * Telephone Encounter - Rosalina Knutson LPN - 10/20/2024 1:23 PM EST Adama Mendoza MD Please advise if you are agreeable to signing and following for [facility] services? Our Clinicians will be sending the Plan of Care to you for review and approval. They will reach out for any appropriate orders required to provide home care services for the patient. We are not able to initiate C services without a following provider. Home care clinicians may also obtain orders from [facility] Virtualist Providers Thank you and we would be happy to answer any questions. Rosalina Knutson LPN 10/20/2024 1:23 PM documented in this encounterMer[facility]01-16-2025 Telephone encounter Note * Telephone Encounter - Rosalina Knutson LPN - 10/20/2024 1:23 PM EST Adama Mendoza MD Please advise if you are agreeable to signing and following for [facility] services? Our Clinicians will be sending the Plan of Care to you for review and approval. They will reach out for any appropriate orders required to provide home care services for the patient. We are not able to initiate HHC services without a following provider. Home care clinicians may also obtain orders from [facility] Virtualist Providers Thank you and we would be happy to answer any questions. Rosalina Knutson LPN 10/20/2024 1:23 PM [facility] Work Phone: [phone]) 941-985101-16-2025 Telephone encounter Note* Telephone Encounter - Rosalina Knutson LPN - 10/20/2024 1:20 PM EST Date/Time: 10/20/2024 1:20 PM Spoke with son Tim @ phone #: [phone] - Preferred # for contact: [phone] Have you received help from a home care company in the last 60 days? No Are you agreeable to [facility] services? yes What address will we be seeing you at? [address] [place] [address] Do you have any upcoming appointments or things we need to schedule around? 11/01 Do you have a teachable CG or can you manage your care independently? Yes Who? Spouse Have you received the flu shot? Yes If so, when and where? 09/20/24 [facility] Work Phone: [phone] 310-361801-16-2025 Miscellaneous Notes* Telephone Encounter - Rosalina Knutson LPN - 10/20/2024 1:20 PM EST Date/Time: 10/20/2024 1:20 PM Spoke with airam Dumont @ phone #: [phone] - Preferred # for contact: [phone] Have you received help from a home care company in the last 60 days? No Are you agreeable to [facility] services? yes What address will we be seeing you at? [address] [address] Do you have any upcoming appointments or things we need to schedule around? 11/01 Do you have a teachable CG or can you manage your care independently? Yes Who? Spouse Have you received the flu shot? Yes If so, when and where? 09/20/24 documented in this encounterMercy [facility]01-15-2025 NoteHNO ID: [id number] Author: SOTO VALDERRAMA MD Service: Hospital Medicine Author Type: Physician Type: Progress Notes Filed: 10/20/2024 05:01 Note Text: DEPARTMENT OF HOSPITAL MEDICINE PROGRESS NOTE SERVICE DATE: 10/19/2024 SERVICE TIME: 1:25 PM Hospital Medicine/Primary Attending: Soto Valderrama MD NIGHT AND WEEKEND COVERAGE: [employer] COVER[employer]: Nights: [phone], please page [facility] Night coverage pager [phone]. Probable discharge: 10/20 Disposition: Home health care Consultants: Antonia Beltre for psychiatry ([facility]) PROCEDURES: NONE CODE STATUS: Full code ASSESSMENT/PLAN Reason for Admission: Acute encephalopathy superimposed on dementia with behavioral disturbance after being administered Seroquel and melatonin together for first time because of wandering and Anticoagulation: Prior to admission: 81 mg aspirin Current: 81 mg aspirin INTERVAL COURSE OF EVENTS:Trazodone and as needed Haldol was successful first night. Will give 1 more night trial with increased dose of trazodone and plan discharge if he does well. Son present at bedside and pleased with progress and feels he will be able to take care of him if he continues as he is at least in the short run. This was his hope that he she would be able to handle him for a while longer at home. Continue magnesium, phosphorus and potassium supplementation 1 month Repeat postvoid residual is okay less than 300 cc Tessalon Perles chronic coughing CT chest no contrast concern for recurrent aspiration of either food or postnasal drip Principal Problem: Dementia with behavioral disturbance (HCC) Overview: Seeing Neuro: Dr. Kitchen, MMSE: 22 05/2016, MMSE: 06/2019, 23, MMSE 04/2023: 16 Active Problems: History of CVA (cerebrovascular accident) Overview: Right posterior internal capsule, No longer seeing Neuro NAIN (obstructive sleep apnea) Overview: MENG Schilling phone [phone] fax [phone]. Essential hypertension, benign Overview: Goal<150/90 Presence of stent in coronary artery in patient with coronary artery disease Zinc deficiency Overactive bladder CKD (chronic kidney disease) stage 3, GFR 30-59 ml/min ([facility]) Alzheimer dementia with behavioral disturbance (HCC) Neurocognitive disorder Resolved Problems: Hypomagnesemia Hypokalemia Hypophosphatemia Dehydration Overview: Acute kidney injury Altered mental status Cough Excessive sleepiness Somnolence OBJECTIVE Smoking history:> 60 pack year smoker, quitting in 1978 EK10/15/2024 normal sinus rhythm normal EKG borderline first-degree AV block normal axis with Q waves in 3. This is similar to EKGs 10/14/2024 and similar to written report from 02/25/2018 ECHOCARDIOGRAM: 10/31/2020 Normal LV function with EF 65% grade 1 diastolic dysfunction no regional wall motion abnormality right ventricle is normal. No valvular disease normal atrial function and size Beta natruretic peptide: 10/16/2024 224 PROCALCITONIN: 10/15 0.09 Recent Labs 10/15/24 1822 10/15/24 0937 PH 7.44 -- PCO2 37 -- PO2 75* -- HCO3 25 -- BE 1 -- LACT 1.4 1.1 Recent Labs 10/15/24 1822 O2HB 95 COHB 1.4 MHGB <1.0 KWB 3.2* No results for input(s): CRP in the last 720 hours. Recent Labs 10/18/24 0516 10/17/24 1058 10/16/24 0534 10/15/24 0937 WBC 9.46 7.48 7.53 7.48 RBC 4.35 4.51 4.19* 4.30 HB 13.1 13.6 12.7* 12.8* HCT 37.6* 39.1 36.5* 38.2* PLT 212 218 206 201 MCV 86.4 86.7 87.1 88.8 MCH 30.1 30.2 30.3 29.8 MPV 10.2 9.9 9.7 9.5 ABSNEUT -- -- -- 4.69 NEUTP -- -- -- 62.8 LYMPHP -- -- -- 23.0 MONOP -- -- -- 11.9 EODINP -- -- -- 1.7 Recent Labs 10/18/24 0516 10/17/24 1058 10/16/24 0534 GLUC 106* 103* 101* NA 142 145* 138 K 3.7 3.6* 3.2* CHLOR 108* 108* 103 CO2 CREAT 1.17 1.07 1.08 BUN 13 11 12 ANION 10 12 10 CA 8.9 9.2 9.1 TPROT 6.4 6.2* 6.3 ALB 3.2* 3.7* 3.5* TBILI 0.4 0.4 0.5 ALKPHOS 99 102 98 AST 16 17 16 ALT 12 12 12 Recent Labs 10/18/24 0516 10/17/24 1058 10/16/24 0534 GLUC 106* 103* 101* Recent Labs 10/15/24 1822 10/15/24 0937 LACT 1.4 1.1 Recent Labs 10/18/24 0516 10/17/24 1058 10/16/24 0534 BUN 13 11 12 CREAT 1.17 1.07 1.08 CA 8.9 9.2 9.1 P 3.1 -- 2.6* MG 1.9 2.0 1.9 Most recent labs Last 14 BP Last 14 Encounter BP Readings: Date: BP: 10/15/2024 169/66 10/15/2024 174/77 10/14/2024 164/68 10/14/2024 171/60[provider notified[ 10/11/2024 158/74 09/20/2024 112/74 09/10/2024 123/75 08/08/2024 126/74 07/21/2024 122/82 06/28/2024 122/62 06/22/2024 144/79 06/15/2024 106/62 06/15/2024 118/70 05/12/2024 118/60 Hemoglobin A1C (%) Date Value 05/10/2024 5.4 04/04/2024 5.4 10/08/2023 5.3 04/02/2023 5.7 10/09/2022 5.4 09/09/2021 5.8 02/18/2021 5.8 08/10/2020 5.6 12/09/2019 5.6 06/11/2019 5.5 TSH Date Value Ref Range Status / (more content not included)...[facility] [id number] [id number] (AGENT OF COVID-19) RNA: Not detected INFLUENZA A RNA: Not detected INFLUENZA B RNA: Not detected RESPIRATORY SYNCYTIAL VIRUS (RSV) RNA: Not detectedDorchester HospitalComment on above:Performed By: #### [id number] ####[facility] LABORATORYCLIA [id number] [place] [address] [facility]01-15-2025 NoteHNO ID: [id number] Author: GISEL SMILEY DO Service: Hospital Medicine Author Type: Physician Type: Progress Notes Filed: 10/19/2024 00:15 Note Text: Nursing notified me of new productive cough and coarse breath sounds. Patient seen at bedside. Is noted to be coughing while being evaluated. No Respiratory distress. No hypoxia. Bronchial breath sounds noted. Will get COVID/FLU/RSV and CXR. Gisel Smiley DO October 19, 2024 12:15 AMWexner Medical [id number] NoteHNO ID: [id number] Author: SOTO VALDERRAMA MD Service: Hospital Medicine Author Type: Physician Type: Progress Notes Filed: 10/19/2024 10:01 Note Text: Addendum:Metabolic encephalopathy from dehydration which exacerbated his baseline dementia. Soto Valderrama MD October 19, 2024 10:01 AM DEPARTMENT OF HOSPITAL MEDICINE PROGRESS NOTE SERVICE DATE: 10/18/2024 SERVICE TIME: 7:45 AM Hospital Medicine/Primary Attending: Soto Valderrama MD NIGHT AND WEEKEND COVERAGE: [employer] COVERAGE: Nights: [phone], please page [facility] Night coverage pager [phone]. Probable discharge: 10/20 Disposition: Home health care Consultants: Practitioner Glanc for psychiatry ([facility] PROCEDURES: NONE CODE STATUS: Full code ASSESSMENT/PLAN Reason for Admission: Acute encephalopathy superimposed on dementia with behavioral disturbance after being administered Seroquel and melatonin together for first time because of wandering and sundowning Anticoagulation: Prior to admission: 81 mg aspirin Current: 81 mg aspirin INTERVAL COURSE OF EVENTS:Trazodone and as needed Haldol was successful last night. Will give 1 more night trial and plan discharge if he does well. Son present at bedside and pleased with progress and feels he will be able to take care of him if he continues as he is at least in the short run. This was his hope that he she would be able to handle him for a while longer at home. Continue magnesium, phosphorus and potassium supplementation 1 month Repeat postvoid residual Principal Problem: Dementia with behavioral disturbance (HCC) Overview: Seeing Neuro: Dr. Kitchen, MMSE: 22 05/2016, MMSE: 06/2019, 23, MMSE 04/2023: 16 Active Problems: History of CVA (cerebrovascular accident) Overview: Right posterior internal capsule, No longer seeing Neuro NAIN (obstructive sleep apnea) Overview: [facility] EdouardAirgalo phone [phone] fax [phone]. Essential hypertension, benign Overview: Goal<150/90 Presence of stent in coronary artery in patient with coronary artery disease Overactive bladder CKD (chronic kidney disease) stage 3, GFR 30-59 ml/min (HCC) Alzheimer dementia with behavioral disturbance (HCC) Excessive sleepiness Neurocognitive disorder Zinc deficiency Resolved Problems: Hypomagnesemia Hypokalemia Hypophosphatemia Dehydration Overview: Acute kidney injury Altered mental status Cough OBJECTIVE Smoking history:> 60 pack year smoker, quitting in 1978 EK10/15/2024 normal sinus rhythm normal EKG borderline first-degree AV block normal axis with Q waves in 3. This is similar to EKGs 10/14/2024 and similar to written report from 02/25/2018 ECHOCARDIOGRAM: 10/31/2020 Normal LV function with EF 65% grade 1 diastolic dysfunction no regional wall motion abnormality right ventricle is normal. No valvular disease normal atrial function and size Beta natruretic peptide: 10/16/2024 224 PROCALCITONIN: 10/15 0.09 Recent Labs 10/15/24 1822 10/15/24 0937 PH 7.44 -- PCO2 37 -- PO2 75* -- HCO3 25 -- BE 1 -- LACT 1.4 1.1 Recent Labs 10/15/24 182 O2HB 95 COHB 1.4 MHGB <1.0 KWB 3.2* No results for input(s): CRP in the last 720 hours. Recent Labs 10/18/24 0516 10/17/24 1058 10/16/24 0534 10/15/24 0937 WBC 9.46 7.48 7.53 7.48 RBC 4.35 4.51 4.19* 4.30 HB 13.1 13.6 12.7* 12.8* HCT 37.6* 39.1 36.5* 38.2* PLT 212 218 206 201 MCV 86.4 86.7 87.1 88.8 MCH 30.1 30.2 30.3 29.8 MPV 10.2 9.9 9.7 9.5 ABSNEUT -- -- -- 4.69 NEUTP -- -- -- 62.8 LYMPHP -- -- -- 23.0 MONOP -- -- -- 11.9 EODINP -- -- -- 1.7 Recent Labs 10/18/24 0516 10/17/24 1058 10/16/24 0534 GLUC 106* 103* 101* NA 142 145* 138 K 3.7 3.6* 3.2* CHLOR 108* 108* 103 CO2 24 25 CREAT 1.17 1.07 1.08 BUN 13 11 12 ANION 10 12 10 CA 8.9 9.2 9.1 TPROT 6.4 6.2* 6.3 ALB 3.2* 3.7* 3.5* TBILI 0.4 0.4 0.5 ALKPHOS 99 102 98 AST 16 17 16 ALT 12 12 12 Recent Labs 10/18/24 0516 10/17/24 1058 10/16/24 0534 GLUC 106* 103* 101* Recent Labs 10/15/24 1822 10/15/24 0937 LACT 1.4 1.1 Recent Labs 10/18/24 0516 10/17/24 1058 10/16/24 0534 BUN 13 11 12 CREAT 1.17 1.07 1.08 CA 8.9 9.2 9.1 P -- -- 2.6* MG 1.9 2.0 1.9 Most recent labs Last 14 BP Last 14 Encounter BP Readings: Date: BP: 10/15/2024 169/66 10/15/2024 174/77 10/14/2024 164/68 10/14/2024 171/60[provider notified[ 10/11/2024 158/74 09/20/2024 112/74 09/10/2024 123/75 08/08/2024 126/74 07/21/2024 122/82 06/28/2024 122/62 06/22/2024 144/79 06/15/2024 106/62 06/15/2024 118/70 05/12/2024 118/60 Hemoglobin A1C (%) Date Value 05/10/2024 5.4 04/04/2024 5.4 10/08/2023 5.3 04/02/2023 5.7 10/09/2022 5.4 09/09/2021 5.8 02/18/2021 5.8 08/10/2020 5.6 12/09/2019 5.6 06/11/2019 5.5 TSH Date Value Ref Range Status 10/16/2024 3.030 0.270 - 4.200 mIU/L Final HOSPITAL C (more content not included)...[facility] [id number] NoteHNO ID: [id number] Author: SOTO VALDERRAMA MD Service: Hospital Medicine Author Type: Physician Type: Progress Notes Filed: 10/18/2024 05:40 Note Text: DEPARTMENT OF HOSPITAL MEDICINE PROGRESS NOTE SERVICE DATE: 10/17/2024 SERVICE TIME: 5:32 PM Hospital Medicine/Primary Attending: Soto Valderrama MD NIGHT AND WEEKEND COVERAGE: [employer] COVERAGE: Nights: [phone], please page [facility] Center[facility] Night coverage pager [phone]. Probable discharge: 10/20 Disposition: To be determined Consultants: Practitioner Patt for psychiatry ([facility] follows [facility]) PROCEDURES: NONE CODE STATUS: Full code ASSESSMENT/PLAN Reason for Admission: Acute encephalopathy superimposed on dementia with behavioral disturbance after being administered Seroquel and melatonin together for first time because of wandering and sundowning Anticoagulation: Prior to admission: 81 mg aspirin Current: 81 mg aspirin INTERVAL COURSE OF EVENTS: Patient disruptive during the night. His son has to sleep on an air mattress outside the bedroom door patient hallucinating at night. Adjustment try and if unsuccessful would need inpatient psych. Discussed this with his son/practitioner Glamanuela. José Miguel present patient pleasant stopping Seroquel trying trazodone and as needed Haldol Normal CBC, hemoglobin did drop with hydration Respiratory alkalosis with corrected O2 around 72 which is probably normal with his smoking history Lactate, beta natruretic peptide, procalcitonin normal Urinalysis is concentrated but normal except for 1+ protein and otherwise normal and taken in conjunction with his BUN to creatinine ratio he had dehydration without acute kidney injury Hypokalemia, hypomagnesemia, hypophosphatemia neuro already given 1 g of magnesium IV along with normal saline 500 cc adding daily magnesium oxide twice daily Neutra-Phos twice daily and KCl 10 mEq twice daily. Patient dehydrated and will continue normal saline for total of 2 L his exam is good except for dehydration and his baseline dementia Will give to 12.5 mg Seroquel instead of 25 mg and hold melatonin and see how the patient does at the request of family to try this before discharge Principal Problem: Altered mental status Active Problems: Dementia with behavioral disturbance (HCC) Overview: Seeing Neuro: Dr. Kitchen, MMSE: 22 05/2016, MMSE: 06/2019, 23, MMSE 04/2023: 16 History of CVA (cerebrovascular accident) Overview: Right posterior internal capsule, No longer seeing Neuro NAIN (obstructive sleep apnea) Overview: M[facility] Schilling phone [phone] fax [phone]. Cough Essential hypertension, benign Overview: Goal<150/90 Overactive bladder Presence of stent in coronary artery in patient with coronary artery disease Hypomagnesemia Hypokalemia Hypophosphatemia Dehydration Overview: Acute kidney injury CKD (chronic kidney disease) stage 3, GFR 30-59 ml/min (HCC) Alzheimer dementia with behavioral disturbance (HCC) Excessive sleepiness Neurocognitive disorder Resolved Problems: * No resolved hospital problems. * OBJECTIVE Smoking history:> 60 pack year smoker, quitting in 1978 EK10/15/2024 normal sinus rhythm normal EKG borderline first-degree AV block normal axis with Q waves in 3. This is similar to EKGs 10/14/2024 and similar to written report from 02/25/2018 ECHOCARDIOGRAM: 10/31/2020 Normal LV function with EF 65% grade 1 diastolic dysfunction no regional wall motion abnormality right ventricle is normal. No valvular disease normal atrial function and size Beta natruretic peptide: 10/16/2024 224 PROCALCITONIN: 10/15 0.09 Recent Labs 10/15/24182110/15/24936 PH 7.44 -- PCO2 37 -- PO2 75* -- HCO3 25 -- BE 1 -- LACT 1.4 1.1 Recent Labs 10/15/241821 O2HB 95 COHB 1.4 MHGB <1.0 KWB 3.2* No results for input(s): CRP in the last 720 hours. Recent Labs 10/17/24105710/16/2453310/15/24936 WBC 7.48 7.53 7.48 RBC 4.51 4.19* 4.30 HB 13.6 12.7* 12.8* HCT 39.1 36.5* 38.2* PLT 218 206 201 MCV 86.7 87.1 88.8 MCH 30.2 30.3 29.8 MPV 9.9 9.7 9.5 ABSNEUT -- -- 4.69 NEUTP -- -- 62.8 LYMPHP -- -- 23.0 MONOP -- -- 11.9 EODINP -- -- 1.7 Recent Labs 10/17/24105710/16/2453310/15/24 0937 GLUC 103* 101* 107* NA 145* 138 143 K 3.6* 3.2* 3.7 CHLOR 108* 103 108* CO2 CREAT 1.07 1.08 1.23* BUN 11 12 18 ANION 12 10 10 CA 9.2 9.1 8.9 TPROT 6.2* 6.3 6.5 ALB 3.7* 3.5* 3.5* TBILI 0.4 0.5 0.3 ALKPHOS 102 98 104 AST 17 16 14 ALT 12 12 12 Recent Labs 10/17/24105710/16/24 0510/15/24 0937 GLUC 103* 101* 107* Recent Labs 10/15/24182110/15/24 0937 LACT 1.4 1.1 Recent Labs 10/17/24105710/16/24 0534 10/15/24 0937 BUN 11 12 18 CREAT 1.07 1.08 1.23* CA 9.2 9.1 8.9 P -- 2.6* -- MG 2.0 1.9 1.6* Most recent labs Last 14 BP Last 14 Encounter BP Readings: Date: BP: (more content not included)...[facility] [id number] NoteHNO ID: [id number] Author: SAUL SIFUENTES MD Service: Hospital Medicine Author Type: Physician Type: Progress Notes Filed: 10/16/2024 23:01 Note Text: Per Neuro considerations, patient was administered 1/2 dose seroquel and melatonin held given oversedation. He pulled his hughes at 8pm, and we will continue to monitor with bladder scans. Unfortunately, his mental status continued to worsen with progressive agitation, delirium. 2mg IV haldol ordered. [facility] [id number] NoteHNO ID: [id number] Author: GONZALEZ TOBAR LSW Service: Care Management Author Type: Briquette Molder Type: Care Mgt Initial Assessment Filed: 10/16/2024 12:57 Note Text: CARE MANAGEMENT: ASSESSMENT AND DISCHARGE PLAN SERVICE DATE: October 16, 2024 SERVICE TIME: 12:48 PM PCP: Adama Mendoza MD Primary Contact: Extended Emergency Contact Information Primary Emergency Contact: Refugio Johnson Address: [address] [place] [address] OF [place] P[place]LO Mobile Relation: Spouse Secondary Emergency Contact: tim johnson Mobile Relation: Son Admission Status: Inpatient Insurance Provider: MEDICARE A AND B Discharge Planning requested by: Per Department Practice Potential Transition Plans Home Advance Directives Current Advance Directive: Health Care Power of Clerk Rating;Living Will In Chart: Yes Up To Date and Valid: Yes Current Living Arrangements and Support Lives with: Spouse/significant other Type of Residence: Private Residence (House) Does the patient have to climb stairs at home?: Yes;stairs outside the home;stairs within the home Support: Spouse/significant other How do you manage to accomplish the following: Independent: Ambulation Needs Assistance: Bathe/Shower;Dress;Meals/Meal Prep;Going to the bathroom;Medication Management;Transportation to appointments/community Current Services/Equipment Current Post-Acute Service(s): None Discharge Planning Patient Goal(s): Be able to go home, General wellness [place] of Choice Explained: [place] of Choice Given: No Reason Not Given: No placements necessary Are you interested in bedside delivery of your medications? No Discharge Planning Participant(s): Patient Patient/Family Comments: Caregiver Assessment: Caregiver is ready, willing and able to meet the patient's needs as recommended by the inter-professional team: Yes Name of Caregiver: Refugio Johnson/spouse Transport at Discharge: Transportation Arrangements: Car Destination: Home Needs Prior to Discharge: Needs Prior to Discharge: To Be Determined;Other: See Comment;Discharge Transportation (medical clearance) Post-Acute Discharge Plan: CMSW met with the patient at bedside; introduced self/role. Patient is a 79 year old male who presents with altered mental status former > 60 pack year smoker, quitting in 1978, AAA, CAD s/p stent x3, HTN, GERD, CVA (right posterior internal capsule stroke,cortical infarct in the bilateral middle frontal gyrus), HLD, prostate cancer s/p XRT, NAIN not complaint with CPAP since June last year ,COPD with typical findings of asbestos exposure on CT chest,CKD stage 3,Alzheimers Dementia with behavioral disorder (wandering behavior). Patient denies the use of DME or skilled services and states that he needs assistance with ADLs. Transport at discharge is TBD. Patient states that he is safe and has his needs met. CMSW called and confirmed assessment information with the patient's son due to PMH. Patient's son states that information provided is correct, however, the patient is staying with him while the patient's spouse is currently at [facility] for rehab. CM assigned will continue to follow for discharge needs. SIGNATURE: BARBRA Rosenbaum PATIENT NAME: Lory Johnson DATE: October 16, 2024 TIME: 12:48 PMWexner Medical [id number] NoteHNO ID: [id number] Author: SOTO VALDERRAMA MD Service: Hospital Medicine Author Type: Physician Type: Progress Notes Filed: 10/16/2024 20:03 Note Text: DEPARTMENT OF HOSPITAL MEDICINE PROGRESS NOTE SERVICE DATE: 10/16/2024 SERVICE TIME: 7:46 AM Hospital Medicine/Primary Attending: Stoo Valderrama MD NIGHT AND WEEKEND COVERAGE: [facility]OND COVERAGE: Nights: [phone], please page [facility] Centerist Night coverage pager [phone]. Probable discharge: 10/20 Disposition: To be determined Consultants: Practitioner Glanc for psychiatry (patient follows at the [facility]) PROCEDURES: NONE CODE STATUS: Full code ASSESSMENT/PLAN Reason for Admission: Acute encephalopathy superimposed on dementia with behavioral disturbance after being administered Seroquel and melatonin together for first time because of wandering and ing Anticoagulation: Prior to admission: 81 mg aspirin Current: 81 mg aspirin INTERVAL COURSE OF EVENTS: Will continue to hydrate him with 2 L total of normal saline replacing magnesium potassium and phosphorus orally will see how he attends to diet consult placed to behavioral psychiatry practitioner Glanc for tomorrow morning Normal CBC, hemoglobin did drop with hydration Respiratory alkalosis with corrected O2 around 72 which is probably normal with his smoking history Lactate, beta natruretic peptide, procalcitonin normal Urinalysis is concentrated but normal except for 1+ protein and otherwise normal and taken in conjunction with his BUN to creatinine ratio he had dehydration without acute kidney injury Hypokalemia, hypomagnesemia, hypophosphatemia neuro already given 1 g of magnesium IV along with normal saline 500 cc adding daily magnesium oxide twice daily Neutra-Phos twice daily and KCl 10 mEq twice daily. Patient dehydrated and will continue normal saline for total of 2 L his exam is good except for dehydration and his baseline dementia Will give to 12.5 mg Seroquel instead of 25 mg and hold melatonin and see how the patient does at the request of family to try this before discharge Principal Problem: Altered mental status Active Problems: Dementia with behavioral disturbance (HCC) Overview: Seeing Neuro: Dr. Kitchen, MMSE: 22 05/2016, MMSE: 06/2019, 23, MMSE 04/2023: 16 History of CVA (cerebrovascular accident) Overview: Right posterior internal capsule, No longer seeing Neuro NAIN (obstructive sleep apnea) Overview: MENG Schilling phone [phone] fax [phone]. Cough Essential hypertension, benign Overview: Goal<150/90 Overactive bladder Presence of stent in coronary artery in patient with coronary artery disease Hypomagnesemia CKD (chronic kidney disease) stage 3, GFR 30-59 ml/min (HCC) Alzheimer dementia with behavioral disturbance (HCC) Resolved Problems: * No resolved hospital problems. * OBJECTIVE Smoking history:> 60 pack year smoker, quitting in 1978 EK10/15/2024 normal sinus rhythm normal EKG borderline first-degree AV block normal axis with Q waves in 3. This is similar to EKGs 10/14/2024 and similar to written report from 02/25/2018 ECHOCARDIOGRAM: 10/31/2020 Normal LV function with EF 65% grade 1 diastolic dysfunction no regional wall motion abnormality right ventricle is normal. No valvular disease normal atrial function and size Beta natruretic peptide: 10/16/2024 224 PROCALCITONIN: 10/15 0.09 Recent Labs 10/15/24182110/15/24936 PH 7.44 -- PCO2 37 -- PO2 75* -- HCO3 25 -- BE 1 -- LACT 1.4 1.1 Recent Labs 10/15/241821 O2HB 95 COHB 1.4 MHGB <1.0 KWB 3.2* No results for input(s): CRP in the last 720 hours. Recent Labs 10/16/2453310/15/2437 WBC 7.53 7.48 RBC 4.19* 4.30 HB 12.7* 12.8* HCT 36.5* 38.2* PLT 206 201 MCV 87.1 88.8 MCH 30.3 29.8 MPV 9.7 9.5 ABSNEUT -- 4.69 NEUTP -- 62.8 LYMPHP -- 23.0 MONOP -- 11.9 EODINP -- 1.7 Recent Labs 10/16/2434 10/15/24 0937 GLUC 101* 107* NA 138 143 K 3.2* 3.7 CHLOR 103 108* CO2 25 25 CREAT 1.08 1.23* BUN 12 18 ANION 10 10 CA 9.1 8.9 TPROT 6.3 6.5 ALB 3.5* 3.5* TBILI 0.5 0.3 ALKPHOS 98 104 AST 16 14 ALT 12 12 Recent Labs 10/16/2434 10/15/24 0937 GLUC 101* 107* Recent Labs 10/15/24182110/15/24 0937 LACT 1.4 1.1 Recent Labs 10/16/2434 10/15/24 0937 BUN 12 18 CREAT 1.08 1.23* CA 9.1 8.9 P 2.6* -- MG 1.9 1.6* Most recent labs Last 14 BP Last 14 Encounter BP Readings: Date: BP: 10/15/2024 169/66 10/15/2024 174/77 10/14/2024 164/68 10/14/2024 171/60[provider notified[ 10/11/2024 158/74 09/20/2024 112/74 09/10/2024 123/75 08/08/2024 126/74 07/21/2024 122/82 06/28/2024 122/62 06/22/2024 144/79 06/15/2024 106/62 06/15/2024 118/70 05/12/2024 118/60 Hemoglobin A1C (%) Date Value 05/10/2024 5.4 04/04/2024 5.4 10/08/2023 5.3 04/02/2023 5.7 10/09/2022 5.4 09/09/2021 5.8 02/18 (more content not included)...[facility] [id number] CicsMVRD-DMC-3 (AGENT OF COVID-19) RNA: Not detected INFLUENZA A RNA: Not detected INFLUENZA B RNA: Not detected RESPIRATORY SYNCYTIAL VIRUS (RSV) RNA: Not detectedWexner Medical CenterComment on above:Performed By: #### [id number] ####[facility] LABORATORYCLIA [id number] [place] [address] [id number] NoteSt. Mary'S Medical Center01-11-2025 History of Present illness Narrative* Bibiana Adan Tech - 10/15/2024 10:25 AM EST Radiology Service Progress Note PATIENT NAME: Lory Johnson DATE OF SERVICE: October 15, 2024 TIME: 10:26 AM PATIENT IDENTITY VERIFICATION COMPLETED USING TWO (2) IDENTIFIERS: Name and Date of confirmedby patient verbally. FALL SCREENING: Has the patient had 2 falls in the last year or 1 fall with injury or currently using an Ambulatory Assistive Device (Walker, Cane, Wheelchair, Crutches, etc.)? No PATIENT GENDER DATA: Assigned male at PATIENT RELEVANT IMPLANT DATA REVIEWED: Not Applicable PATIENT PRESENTS WITH AN IMPLANTABLE OR ATTACHED CLINICAL PROGRAM COORDINATOR: No RADIOLOGY DEPARTMENT: CT; Exam(s) Completed: Brain PERIPHERAL IV DATA: Not applicable SIGNED BY: Darling Minor October 15, 2024 10:26 AM documented in this encounterMercy Health Urbana Hospital01-10-2025 Instructions* Patient Instructions* Gaudencio Allen DO - 10/14/2024 1:31 PM EST Thank you for meeting with me today. Here is the plan we discussed. 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 See the section below Ways to keep your brain healthy A heart healthy diet is a brain healthy diet. The MIND Diet is an evidence based diet proven to slow and protect against cognitive decline. See the section MIND Diet Guidelines below for more information. Follow up as needed If you need to reschedule this please call [phone]. If you need to reach our office for any reason prior to your next visit, please contact us through [employer] or call [phone]. Ways to keep your brain healthy: Follow up regularly with your primary care and other providers to ensure your vascular risk factors(blood pressure, blood sugar, sleep apnea, and cholesterol levels, etc.) are well controlled. Eat a healthy diet, foods that are good for your heart are also good for your brain. It is also important to drink plenty of water to stay hydrated. Exercise - as little as 20 minutes of exercise per day (150 minutes per week) - has been shown to have a positive effect on memory and cognitive function. Maintain an active social life. Get 7-8 hours of sleep per night. If you nap during the day, try to keep napping to a regular schedule. Maintain a predictable and regular daily routine. Try learning new hobbies, games, or skills. Keep your brain active with reading, puzzles, and games. Please refer to healthybrains.org website. It provides evidence based education on diet, exercise and activities that have benefit for memory. MIND Diet guidelines: - Eat 1/2 cup berries, especially blueberries and strawberries, at least 2x per week. - Eat 1 handful (1/4 cup) nuts at least 5x per week. Include walnuts. - Eat 100% whole grains 3x per day (brown rice, wild rice, black rice, quinoa, barley, bulgur, farro, rolled oats, steel cut oats, amaranth, spelt, millet, wheat berries). - Eat 1-2 cups of leafy greens at least 6x per week (spinach, arugula, kale, mustard greens, momo greens, dandelion greens, darien lettuce). - Eat at least 1 other vegetable (other than dark leafy greens) every day. - Eat 1/2 cup beans or lentils at least 3x per week. - Eat fish at least once per week. Choose low mercury fish: salmon, sardines, anchovies, lawrence, halibut, scallops. Avoid fried fish and fish high in mercury (swordfish, Yemeni sea dwyer, orange roughy, ahi tuna, albacore (white) tuna). Choose light/skipjack tuna instead of white tuna, and limit to 2 servings/week because it has some mercury. - Eat chicken at least 2x per week. - Extra virgin olive oil is the primary oil used at home for cooking and on salads. - Limit margarine and butter to less than 1 Tbsp per day. - Limit red meat and processed meats to less than 4x per week. Red meat: beef, pork, vaughan, venison,veal, bison. Processed meats: hightower, hotdogs, salami, sausage, pepperoni, pastrami, cold cuts, ham - Limit sweets, candy, and pastries to less than 5x per week. - Limit cheese to 1 serving per week or less. 1 serving = 1 ounce. - Limit alcohol to 1 drink per day for women and 2 drinks per day for men. - Avoid fried foods and fast foods. Other sources of information and support: When there is a diagnosis of memory problems, no matter the type, we encourage families to educate themselves, learn communication tips, and learn ways to adjust expectations over time. There are many resources available online. Three excellent resources are: The Alzheimer's Association (web site: alz.org/[place]) available 24 hours a day, 7 days per week. Contact: Local: ; Toll free: 256.380.3919 Family Caregiver [place] (web site: Caregiver.org) MAIRA Marsh-- a secure online solution for quality information, support, and resources for family caregivers. Contact: Toll-free number: 421.390.4907 Alzheimers.gov - Find Alzheimer disease and related dementias information, resources, research and more. documented in this encounterMercy Health Urbana Hospital01-10-2025 NoteSt. Mary'S Medical Center01-10-2025 History of Present illness Narrative* Gaudencio Allen DO - 10/14/2024 1:03 PM EST Images from the original note were not included. Chief Complaint: Behavioral changes and dementia I had the pleasure of seeing this 79 year old year old male at the [facility]. The patient is referred by Margaret Ardon [address] [place] [id number] Patient is accompanied by and information obtained from Son and available records in the system. Background and History of Present Illness: This is a 79 year old male with hx of AAA, CAD, HTN, HLD, tobacco smoking, CVA, prostate cancer, COPD, CKD, NAIN, obesity who presented for evaluation and management of behavioral changes and dementia. MOCA completed at general neurology visit today was 03/03. Onset and Progression: Possibly as far back as 10 years memory problems started. MMSE was 22 in 2016. Has been gradually progressive over time. Primarily memory problems. is currently in rehab for the last month and this change has caused significant difficulty with his son who he moved in with temporarily. He gets confused easily. Needs hlep with essentially all ADLs. Has become frequently aggressive towards his son who he often does not recognize, especially when discussing the dx. He does not think there is anything wrong with his memory and is very suspicious. Has followed with neurology for many years. Son's main goal is to discuss if there is anything else they can do at home to help ease his behaviors. Their goal is to keep him at home and he has carpet installer helper to come by several times per week to provide some respite. Mental Health: There is significant difficulty at home with Lory getting agitated and physically aggressive. Goal is to keep him at home for as long as possible. Sleep: No longer wears his CPAP machine. was struggling to keep it clean. Have you ever been told, or suspected yourself, that you seem to act out your dreams while asleep (for example, punching, flailing your arms in the air, making running movements, etc.)? No 5. Activities of Daily Living Hall Index of [place] in Activities of Daily Living (A.D.L.) Bathing: Need help with bathing more than one part of the body, getting in or out of the tub or shower. Requires total bathing. (0 POINTS) Dressing: Needs help with dressing self or needs to be completely dressed. (0 POINTS) Toileting: Needs help transferring to the toilet, cleaning self or uses bedpan or commode. (0 POINTS) Transferring: Moves in and out of bed or chair unassisted. Mechanical transfer aids are acceptable.(1 POINT) Continence: Is partially or totally incontinent of bowel or bladder. (0 POINTS) Feeding: Needs partial or total help with feeding or requires parenteral feeding. (0 POINTS) -Score: 1 (higher is more independent, 0-7) No data to display PAST MEDICAL HISTORY Diagnosis Date 3-vessel CAD 11/03/2013 Abdominal aortic aneurysm (AAA) without rupture (HCC) 11/08/2016 US: 11/2016 2.6 x 2.4 x 2.0 cm, Repeat in a year US: 02/2018 Stable, 03/2019 US said no AAA, US 08/2020 no AAA no further studies needed. Actinic Keratoses (Premalignant AK's) 08/16/2013 Advance directive discussed with patient 03/26/2022 Discussed 03/2022 Anemia Anterior dislocation of right shoulder 10/31/2022 CAD S/P percutaneous coronary angioplasty 11/02/2013 Chronic left shoulder pain 06/30/2018 CKD (chronic kidney disease) stage 3, GFR 30-59 ml/min (HCC) 04/11/2024 Dementia without behavioral disturbance (HCC) 05/15/2016 MMSE: 22 05/2016, MMSE: 06/2019, 23 Elevated fasting blood sugar 12/01/2018 Emphysema lung ([facility]) 10/23/2023 Essential hypertension, benign 05/12/2006 Ex-smoker 10/31/2016 Started at age 15, up to 1 PPD quite at age 34 Fam hx-ischem heart disease 08/21/2009 Sister, mother Family history of colon cancer in father 06/09/2018 GERD without esophagitis 12/14/2018 History of CVA (cerebrovascular accident) 02/16/2018 Right posterior internal capsule Impaired driving skills 08/16/2019 Per Occupational Therapy Community Mobility and IADL report patient not safe to drive nor should hereturn to driving. Lipoma of right forearm 05/05/2017 Living will on file 03/26/2022 DPA: Refugio () Malignant neoplasm of prostate ([facility]) 03/01/200802/09 PATH: Left Lobe: GS 7 ( 3+4) in 1/4 cores Right Lobe : GS 6 ( 3 +) in 3/5 cores External Beam Radiotherapy -- Dr. Rishabh Yao, Renetta Landry follow Mixed hyperlipidemia 12/03/2002 Muscle pain, lumbar 09/26/2019 Neck pain 04/18/2019 NAIN (obstructive sleep apnea) 06/09/2018 Wearing CPAP, Per Neurology (Dr. 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 ([facility]) ([facility]) 10/11/2024 ALLERGIES Allergen Reactions Zithromax [Azithrom* Itching Beta-Blockers (Beta* Unknown Lipitor [Atorvastat* Intolerance Viagra [Sildenafil] Unknown Zetia [Ezetimibe] Mental Status Change Current Outpatient Medications on File Prior to Visit Medication Sig QUEtiapine (SEROQUEL) 25 mg tablet Take 1 tablet by mouth daily at bedtime. donepezil (ARICEPT) 10 mg tablet Take 1 tablet by mouth daily at bedtime. pravastatin (PRAVACHOL) 80 mg tablet Take 1 tablet by mouth daily at bedtime. memantine (NAMENDA) 10 mg tablet Take 1 tablet by mouth two times a day. amLODIPine (NORVASC) 10 mg tablet Take 1 tablet by mouth once daily. losartan (COZAAR) 100 mg tablet Take 1 tablet by mouth once daily. metoprolol succinate ER (TOPROL XL) 50 mg 24 hr tablet Take 1.5 tablets by mouth once daily. solifenacin (VESICARE) 5 mg tablet Take 1 tablet by mouth once daily. aspirin, enteric coated (ECOTRIN LOW STRENGTH) 81 mg EC tablet Take 1 tablet by mouth once daily. pantoprazole DR (PROTONIX) 40 mg tablet Take 1 tablet by mouth daily before breakfast. Take on empty stomach, 1/2 hr before meal. VITAMIN B COMPLEX-100 ORAL Take by mouth. ubidecarenone/vitamin E mixed (COQ10 SG 100 ORAL) Take by mouth. nitroglycerin sublingual (NITROSTAT) 0.4 mg SL tablet Dissolve 1 tablet under the tongue every 5 minutes as needed for chest pain. cholecalciferol (VITAMIN D3) 1,000 unit tab tablet Take 1,000 Units by mouth once daily. ASCORBIC ACID, VITAMIN C, ORAL Take by mouth. Cinnamon Bark 500 mg cap Take 1 capsule by mouth once daily. Blood Pressure Cuff - Home Use BLOOD PRESSURE CUFF FOR HOME USE. DAILY MULTIVITAMIN TAB Take one(1) tablet daily. No current facility-administered medications on file prior to visit. FAMILY HISTORY Problem Relation Age of Onset Prostate Cancer Father Colon Cancer Father Dx in his 70s Heart Father Had heart issues per patient Heart Sister had bypass surgery (mid-40's) Heart Mother Had heart issues per patient Heart Brother had bypass surgery Social History Tobacco Use Smoking status: Former Current packs/day: 0.00 Average packs/day: 2.5 packs/day for 25.0 years (62.5 ttl pk-yrs) Types: Cigarettes Start date: [birth year]/05/1955 Quit date: 10/05/1978 Years since quittin.0 Smokeless tobacco: Never Tobacco comments: quit 1978 Vaping Use Vaping status: Never Used Substance Use Topics Alcohol use: No Drug use: No PHYSICAL EXAMINATION: BP 164/68 (BP Site: Left Arm, BP Position: Sitting, BP Cuff Size: Regular Adult) Pulse 67 Ht 175.3 cm (5' 9) Wt 92.1 kg (203 lb) BMI 29.98 kg/m BP w/Orthostatic Vitals Date and Time Orthostatic BP Orthostatic Pulse BP Pulse BP Position BP Site BP Cuff Size 10/14/24 1221 -- -- 164/68 67 Sitting Left Arm Regular Adult General appearance: Well appearing, alert, in no acute distress, well-hydrated, well nourished. Skin: Skin color, texture, turgor normal, no suspicious rashes or lesions Neurological Exam Neurological Exam Mental Status Facial expression: masked Speech/Language: soft and reduced speech output, impaired comprehension Affect: flat Thought Content: suspiciousness Insight: poor Knowledge: present and past events -poor Cranial Nerves Extraocular movements normal. No nystagmus, no ptosis, and pupils equal. Face symmetrical. Tongue normal. Motor Examination and Coordination Distance Motor Examination Arms: Well-coordinated symmetrical strong antigravity movements of both arms. No apparent muscle atrophy or deformity/contracture. Legs: Arises easily. No asymmetry of movements. No apparent dysmetria. No apparent muscle atrophy or deformity/contracture. Reflexes Deferred Sensation Not examined Gait Casual gait normal. Labs: TSH (mIU/L) Date Value 04/04/2024 3.260 Vitamin B12 (pg/mL) Date Value 04/02/2023 744 12/10/2011 1101 Folate (ng/mL) Date Value 04/23/2010 >18.0 Imaging: Most recent MRI/CT brain: MRI Report - Impression Only MRI BRAIN WO IVCON Exam End: 12/23/2023 7:59 AM (Final result) Impression: IMPRESSION: No acute intracranial process. No high-grade stenosis or occlusion of the intracranial or extracranial arteries. Precision Dancer: TITUS Transcribe Date/Time: Dec 23 2023 8:12A Dictated by : LINUS HERNANDEZ DO This examination was interpreted and the report reviewed and electronically signed by: LINUS HERNANDEZ DO on Dec 23 2023 8:19AM EST Assessment and Recommendation: This is a 79 year old male with hx of AAA, CAD, HTN, HLD, tobacco smoking, CVA, prostate cancer, COPD, CKD, NAIN, obesity who presented for evaluation and management of behavioral changes and dementia. Hx and exam are consistent with moderate dementia due to alzheimer's disease. 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 See the section below Ways to keep your brain healthy A heart healthy diet is a brain healthy diet. The MIND Diet is an evidence based diet proven to slow and protect against cognitive decline. See the section MIND Diet Guidelines below for more information. Follow up as needed I spent a total of 54 minutes on the date of service which included preparing to see the patient, toqo-ro-vamp patient care, performing a medically appropriate examination, completing clinical documentation, and on counseling/ eductaing the patient and the family. Gaudencio Allen DO * Chino Finney MA - 10/14/2024 12:15 PM EST Lory Johnson is a 79 year old year old right handed man Accompanied by: patient and son. Referral by: Margaret Ardon [id number] [facility] [address] Education: High School Diploma, 12 years Employment Status: Retired Title of Last Job (What did pt do?) pt unsure What would you like to accomplish with this visit today? Pt here to get a test of cognitive ability. Unsure of what he'll like to get out of appt. Pt thinks son is passenger coach driver but is having moments where he do remember that the passenger coach driver is also his son. Vital Signs: There were no vitals taken for this visit. documented in this encounterMer[facility]01-10-2025 NoteSt. [facility]01-[facility] History of Present illness Narrative* Keegan Villegas RN - 10/14/2024 10:42 AM EST Images from the original note were not included. [facility] Department of Cardiovascular Medicine OUTPATIENT VISIT TYPE NURSE VISIT PATIENT NAME: Lory Johnson DATE OF SERVICE: 10/14/2024 PRIMARY FILTER SCREEN CLEANER: MARKO Guevaratico Johnson is a 79 year old established patient who presents today for a nurse visit per Dr. Ardon for an EKG Patient taking medication as prescribed: not asked Took medication today: no asked VISIT VITAL SIGNS: There were no vitals taken for this visit. Physician/ELIZ notification and treatment plan: No abnormal findings. Nursing Plan: Patient education: ice cream scooper for final review Patient instructed to call and update the office if there are any changes in current condition. Patient verbalizes understanding of the plan: Yes. Patient's questions were addressed during the visit today: Yes Keegan Villegas RN October 14, 2024 10:42 AM documented in this encounterMercy Health [facility]01-10-2025 NoteSt. [facility]01-10-2025 History of Present illness Narrative* Margaret Ardon APRN.EMBROIDERY ASSISTANT - 10/14/2024 8:30 AM EST Images from the original note were not included. [facility] Follow-up Visit Follow-up note October 14, 2024 HPI: Mr. Johnson presents today accompanied by his son for a follow-up visit. Per his previous visit with Dr. Kitchen on 03/04/24: ASSESSMENT/PLAN: 1. Dementia without behavioral disturbance (HCC) - ICD9: 294.20, ICD10: F03.90 (primary diagnosis) MOCA essentially unchanged. As above, taking Aricept 10mg daily and Namenda 10mg BID - tolerating without side effect. They are not wanting to add or adjust meds, and feel that overall patient is stable. Encouraged brain exercises. Will continue to follow. Refills provided. 2. NAIN (obstructive sleep apnea) - ICD9: 327.23, ICD10: G47.33 No subjective PAP complaints. Subjective and objective PAP compliance confirmed. AHI normalized on current settings. Encouraged continued compliance. Reminded pt to clean and replace equipment regularly. Pt does not drive. 3. History of CVA (cerebrovascular accident) - ICD9: V12.54, ICD10: Z86.73 No new focal deficits. On ASA. Uncertain as to why statin was discontinued and will reach out to PCP. BP goal <140/90. Glucose goal <140. 4. Altered mental status, unspecified altered mental status type - ICD9: 780.97, ICD10: R41.82 5. Abnormal EEG - ICD9: 794.02, ICD10: R94.01 Patient with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 this provider/department: Yes Requested Prescriptions Pending Prescriptions Disp Refills pravastatin (PRAVACHOL) 80 mg tablet Sig: Take 1 tablet by mouth daily at bedtime. Gricelda Alvarez LPN September 17, 2024 10:58 AM documented in this encounterMer[facility]12-[facility]24 Telephone encounter Note * Telephone Encounter - Chavez Plata LPN - 09/16/2024 2:29 PM EST Left message for pt's to contact office. Chavez Plata LPN [facility]12-13-2024 Telephone encounter Note* Telephone Encounter - Danita Meraz PA-C - 09/16/2024 1:02 PM EST Please clarify. Does patient only need 30 day supply? That's how it was pended. Also, aricept is prescribe by neuro. Danita Meraz PA-C [facility]12-13-2024 Telephone encounter Note* Telephone Encounter - Jaci Harp - 09/16/2024 10:57 AM EST Prescription Refill Information The patient has been identified by name and date of : Yes Caregiver verified no other encounters exist for this prescription request: Yes Caregiver confirmed with patient/requestor that no other refills are due, in the near future, with this provider at this time: Yes The last office visit in the department: 09-10-24 Does the patient have a future office visit with this provider/department: Yes Requested Prescriptions Pending Prescriptions Disp Refills pravastatin (PRAVACHOL) 80 mg tablet 30 tablet 1 Sig: Take 1 tablet by mouth daily at bedtime. donepezil (ARICEPT) 10 mg tablet 30 tablet 1 Sig: Take 1 tablet by mouth daily at bedtime. Jaci Salazar September 16, 2024 10:58 AM [facility]12-11-2024 Telephone encounter Note* Telephone Encounter - Salinas Hernandez RN - 09/14/2024 8:23 AM EST Pts called and is notified of providers results. She voices understanding. Salinas Hernandez RN [facility]12-11-2024 Miscellaneous Notes* Telephone Encounter - Salinas Hernandez RN - 09/14/2024 8:23 AM EST Pts called and is notified of providers results. She voices understanding. Salinas Hernandez RN * Telephone Encounter - Adama Mendoza MD - 09/13/2024 8:47 PM EST Let know the hip x-ray shows mild/mod age related arthritis but no acute concerns such as a fracture. documented in this encounterMer[facility]12-[facility]-2024 Telephone encounter Note * Telephone Encounter - Adama Mendoza MD - 09/13/2024 8:47 PM EST Let know the hip x-ray shows mild/mod age related arthritis but no acute concerns such as a fracture. [facility]12-09-2024 Telephone encounter Note* Telephone Encounter - Deann Suarez LPN - 09/12/2024 9:54 AM EST Prescription Refill Information The patient has been identified by name and date of : Yes Caregiver verified no other encounters exist for this prescription request: Yes The last office visit in the department: 03/04/24 [facility] ASSESSMENT/PLAN: 1. Dementia without behavioral disturbance (HCC) - ICD9: 294.20, ICD10: F03.90 (primary diagnosis) MOCA essentially unchanged. As above, taking Aricept 10mg daily and Namenda 10mg BID - tolerating without side effect. They are not wanting to add or adjust meds, and feel that overall patient is stable. Encouraged brain exercises. Will continue to follow. Refills provided. 2. NAIN (obstructive sleep apnea) - ICD9: 327.23, ICD10: G47.33 No subjective PAP complaints. Subjective and objective PAP compliance confirmed. AHI normalized on current settings. Encouraged continued compliance. Reminded pt to clean and replace equipment regularly. Pt does not drive. 3. History of CVA (cerebrovascular accident) - ICD9: V12.54, ICD10: Z86.73 No new focal deficits. On ASA. Uncertain as to why statin was discontinued and will reach out to PCP. BP goal <140/90. Glucose goal <140. 4. Altered mental status, unspecified altered mental status type - ICD9: 780.97, ICD10: R41.82 5. Abnormal EEG - ICD9: 794.02, ICD10: R94.01 Patient with changes on EEG that while not electrographic seizures, could represent epileptiform abnormalities that would suggest pt prone for seizures. This may possible be cause of prior episodes of AMS. D/w pt and his in detail these findings and explained that seizures do not require a locbut simply could be a brief change in mental status. Given history recommended trial of at least low dose ASM. However they both decline such. Seizure risks and precautions d/w pt and his . Note pt does not drive. Shaye Kitchen MD Does the patient have a future office visit with this provider/department: Yes MAHENDRA 12/05/24 Requested Prescriptions Pending Prescriptions Disp Refills memantine (NAMENDA) 10 mg tablet [Pharmacy Med Name: memantine 10 mg tablet] 180 tablet 1 Sig: Take 1 tablet by mouth two times a day. Deann Suarez LPN September 12, 2024 9:54 AM [facility]12-09-2024 Miscellaneous Notes* Telephone Encounter - Deann Suarez LPN - 09/12/2024 9:54 AM EST Prescription Refill Information The patient has been identified by name and date of : Yes Caregiver verified no other encounters exist for this prescription request: Yes The last office visit in the department: 03/04/24 MAHENDRA ASSESSMENT/PLAN: 1. Dementia without behavioral disturbance (HCC) - ICD9: 294.20, ICD10: F03.90 (primary diagnosis) MOCA essentially unchanged. As above, taking Aricept 10mg daily and Namenda 10mg BID - tolerating without side effect. They are not wanting to add or adjust meds, and feel that overall patient is stable. Encouraged brain exercises. Will continue to follow. Refills provided. 2. NAIN (obstructive sleep apnea) - ICD9: 327.23, ICD10: G47.33 No subjective PAP complaints. Subjective and objective PAP compliance confirmed. AHI normalized on current settings. Encouraged continued compliance. Reminded pt to clean and replace equipment regularly. Pt does not drive. 3. History of CVA (cerebrovascular accident) - ICD9: V12.54, ICD10: Z86.73 No new focal deficits. On ASA. Uncertain as to why statin was discontinued and will reach out to PCP. BP goal <140/90. Glucose goal <140. 4. Altered mental status, unspecified altered mental status type - ICD9: 780.97, ICD10: R41.82 5. Abnormal EEG - ICD9: 794.02, ICD10: R94.01 Patient with changes on EEG that while not electrographic seizures, could represent epileptiform abnormalities that would suggest pt prone for seizures. This may possible be cause of prior episodes of AMS. D/w pt and his in detail these findings and explained that seizures do not require a locbut simply could be a brief change in mental status. Given history recommended trial of at least low dose ASM. However they both decline such. Seizure risks and precautions d/w pt and his . Note pt does not drive. Shaye Kitchen MD Does the patient have a future office visit with this provider/department: Yes MAHENDRA 12/05/24 Requested Prescriptions Pending Prescriptions Disp Refills memantine (NAMENDA) 10 mg tablet [Pharmacy Med Name: memantine 10 mg tablet] 180 tablet 1 Sig: Take 1 tablet by mouth two times a day. Deann Suarez LPN September 12, 2024 9:54 AM documented in this encounterMer[facility]12-07-[facility]24 History of Present illness Narrative* Jana Tejeda RT(R) - 09/10/2024 9:50 AM EST Radiology Service Progress Note PATIENT NAME: Lory Johnson DATE OF SERVICE: September 10, 2024 TIME: 9:54 AM PATIENT IDENTITY VERIFICATION COMPLETED USING TWO (2) IDENTIFIERS: Name and Date of confirmedby patient verbally. FALL SCREENING: Has the patient had 2 falls in the last year or 1 fall with injury or currently using an Ambulatory Assistive Device (Walker, Cane, Wheelchair, Crutches, etc.)? No PATIENT GENDER DATA: Male PATIENT RELEVANT IMPLANT DATA REVIEWED: Yes PATIENT PRESENTS WITH AN IMPLANTABLE OR ATTACHED CLINICAL PROGRAM COORDINATOR: No RADIOLOGY DEPARTMENT: General X-ray: Exam(s) Completed: Pelvis X-Ray: Pelvis with Hip Left PERIPHERAL IV DATA: Not applicable SIGNED BY: RT Hector(R) September 10, 2024 9:54 AM documented in this encounterMer[facility]12-07-[facility] Note[facility] History of Present illness Narrative* Adama Mendoza MD - 09/10/2024 9:23 AM EST Chief Complaint Patient presents with: Left Hip Pain HPI Lory Johnson is a 79 year old male who presents here today for Above Complaints.. About a week ago when he was getting out of their car she heard him say awe and since then has beenhaving pain in the left hip. Hurst to lay on it. No pain with sitting. Hurst with walking. No pain down the side of the left lateral thigh. has not seen any bruising. Has used some tylenol and bio freeze with slight relief of pain. Past medical history, appointments, medications, allergies reviewed. Previous Medical History PAST MEDICAL HISTORY Diagnosis Date 3-vessel CAD 11/03/2013 Abdominal aortic aneurysm (AAA) without rupture ([facility]) 11/08/2016 US: 11/2016 2.6 x 2.4 x 2.0 cm, Repeat in a year US: 02/2018 Stable, 03/2019 US said no AAA, US 08/2020 no AAA no further studies needed. Actinic Keratoses (Premalignant AK's) 08/16/2013 Advance directive discussed with patient 03/26/2022 Discussed 03/2022 Anemia Anterior dislocation of right shoulder 10/31/2022 CAD S/P percutaneous coronary angioplasty 11/02/2013 Chronic left shoulder pain 06/30/2018 CKD (chronic kidney disease) stage 3, GFR 30-59 ml/min ([facility]) 04/11/2024 Dementia without behavioral disturbance ([facility]) 05/15/2016 MMSE: 22 05/2016, MMSE: 06/2019, 23 Elevated fasting blood sugar 12/01/2018 Emphysema lung ([facility]) 10/23/2023 Essential hypertension, benign 05/12/2006 Ex-smoker 10/31/2016 Started at age 15, up to 1 PPD quite at age 34 Fam hx-ischem heart disease 08/21/2009 Sister, mother Family history of colon cancer in father 06/09/2018 GERD without esophagitis 12/14/2018 History of CVA (cerebrovascular accident) 02/16/2018 Right posterior internal capsule Impaired driving skills 08/16/2019 Per Occupational Therapy Community Mob[employer] and IADL report patient not safe to drive nor should hereturn to driving. Lipoma of right forearm 05/05/2017 Living will on file 03/26/2022 DPA: Refugio () Malignant neoplasm of prostate ([facility]) 03/01/200802/09 PATH: Left Lobe: GS 7 ( 3+4) in 1/4 cores Right Lobe : GS 6 ( 3 +) in 3/5 cores External Beam Radiotherapy -- Dr. Rishabh Yao, Renetta Landry follow Mixed hyperlipidemia 12/03/2002 Muscle pain, lumbar 09/26/2019 Neck pain 04/18/2019 NAIN (obstructive sleep apnea) 06/09/2018 Wearing CPAP, Per Neurology (Dr. Scott) Overactive bladder 08/01/2019 Rosacea 07/2003 S/P right coronary artery (RCA) stent placement 05/15/2017 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 10/31/2022 Previous Surgical History PAST SURGICAL HISTORY Procedure Laterality Date 2D ECHO (EXEP) 02/11/2018 EF=65%, mild jain dysf, mildly enlarged LA, 2D ECHO (EXEP) 10/03/2020 EF=65%, mild Jain dysfunction, COLONOSCOPY FLX DX W/COLLJ SPEC WHEN PFRMD 02/2002 Colonoscopy COLONOSCOPY FLX DX W/COLLJ SPEC WHEN PFRMD 09/14/2007 normal COLONOSCOPY FLX DX W/COLLJ SPEC WHEN PFRMD 07/23/2012 normal COLONOSCOPY FLX DX W/COLLJ SPEC WHEN PFRMD 07/28/2018 Colonoscopy, repeat 5 years ESOPHAGOGASTRODUODENOSCOPY TRANSORAL DIAGNOSTIC 02/2002 EGD ESOPHAGOGASTRODUODENOSCOPY TRANSORAL DIAGNOSTIC 12/22/2002 hiatal hernia, distal esophagitis ESOPHAGOGASTRODUODENOSCOPY TRANSORAL DIAGNOSTIC 08/03/2015 EGD ESOPHAGOGASTRODUODENOSCOPY TRANSORAL DIAGNOSTIC 11/15/2015 EGD ESOPHAGOGASTRODUODENOSCOPY TRANSORAL DIAGNOSTIC 08/13/2020 EGD HEART CATHETERIZATION 2013 Angioplasty, Promus stent to right coronary LEXISCAN STRESS TEST 10/03/[address] Morton RPR UMBILICAL HRNA 5 YRS/> REDUCIBLE 2002 Family History FAMILY HISTORY Problem Relation Age of Onset Prostate Cancer Father Colon Cancer Father Dx in his 70s Heart Father Had heart issues per patient Heart Sister had bypass surgery (mid-40's) Heart Mother Had heart issues per patient Heart Brother had bypass surgery Patient Allergies ALLERGIES Allergen Reactions Zithromax [Azithrom* Itching Beta-Blockers (Beta* Unknown Lipitor [Atorvastat* Intolerance Viagra [Sildenafil] Unknown Zetia [Ezetimibe] Mental Status Change Current Medications Current Outpatient Medications on File Prior to Visit Medication Sig amLODIPine (NORVASC) 10 mg tablet Take 1 tablet by mouth once daily. donepezil (ARICEPT) 10 mg tablet Take 1 tablet by mouth daily at bedtime. losartan (COZAAR) 100 mg tablet Take 1 tablet by mouth once daily. metoprolol succinate ER (TOPROL XL) 50 mg 24 hr tablet Take 1.5 tablets by mouth once daily. solifenacin (VESICARE) 5 mg tablet Take 1 tablet by mouth once daily. levoFLOXacin (LEVAQUIN) 750 mg tablet Take 750 mg by mouth once daily. QUEtiapine (SEROQUEL) 25 mg tablet Take 25 mg by mouth daily at bedtime. pravastatin (PRAVACHOL) 80 mg tablet Take 1 tablet by mouth daily at bedtime. aspirin, enteric coated (ECOTRIN LOW STRENGTH) 81 mg EC tablet Take 1 tablet by mouth once daily. memantine (NAMENDA) 10 mg tablet Take 1 tablet by mouth two times a day. pantoprazole DR (PROTONIX) 40 mg tablet Take 1 tablet by mouth daily before breakfast. Take on empty stomach, 1/2 hr before meal. VITAMIN B COMPLEX-100 ORAL Take by mouth. ubidecarenone/vitamin E mixed (COQ10 SG 100 ORAL) Take by mouth. nitroglycerin sublingual (NITROSTAT) 0.4 mg SL tablet Dissolve 1 tablet under the tongue every 5 minutes as needed for chest pain. cholecalciferol (VITAMIN D3) 1,000 unit tab tablet Take 1,000 Units by mouth once daily. ASCORBIC ACID, VITAMIN C, ORAL Take by mouth. Cinnamon Bark 500 mg cap Take 1 capsule by mouth once daily. Blood Pressure Cuff - Home Use BLOOD PRESSURE CUFF FOR HOME USE. DAILY MULTIVITAMIN TAB Take one(1) tablet daily. No current facility-administered medications on file prior to visit. Social History Social History Tobacco Use Smoking status: Former Current packs/day: 0.00 Average packs/day: 2.5 packs/day for 25.0 years (62.5 ttl pk-yrs) Types: Cigarettes Start date: 10/05/1953 Quit date: 10/05/1978 Years since quittin.9 Smokeless tobacco: Never Tobacco comments: quit 1978 Vaping Use Vaping status: Never Used Substance Use Topics Alcohol use: No Drug use: No Review of Symptoms REVIEW OF SYSTEMS See HPI EXAM: BP 123/75 Pulse 66 Resp 12 Wt 91.2 kg (201 lb) BMI 29.68 kg/m Last 5 Encounter Wt Readings: Date: Wt: 09/10/2024 91.2 kg (201 lb) 08/08/2024 91.6 kg (202 lb) 07/21/2024 91.6 kg (202 lb) 06/28/2024 93 kg (205 lb) 06/22/2024 92.7 kg (204 lb 5.9 oz) General Appearance: Well appearing, alert, in no acute distress, well-hydrated, well nourished.. Back:no pain to palpation of vertebrae, good flexion and extension, good range of motion, no muscletenderness, motor and sensory appear to be normal Musculoskeletal: there is mild tenderness to palpation of the left greater trochanter. This is reproduced with abduction and internal rotation of the hip. Hard to get him into a right lateral position due to his dementia. So exam was partially limited. . Health Maintenance List Influenza Vaccine(1) due on 06/05/2024 RSV Vaccine(1 - 1-dose 75+ series) due on 04/11/2025 LDL Cholesterol due on 05/10/2025 Diabetes Screening due on 05/10/2027 DTaP,Tdap,Td Vaccine(3 - Td or Tdap) due on 04/09/2028 Spirometry Completed Advance Directive Discussion Completed Shingrix Vaccine Completed Covid-19 Vaccine Completed Pneumococcal Vaccine: 65+ Completed Colorectal Cancer Screening Discontinued Data reviewed A/P ASSESSMENT/PLAN: 1. Left hip pain - ICD9: 719.45, ICD10: M25.552 Suspect trochanteric bursitis. Check - XR HIP GENERAL 3V PELV/AP/LAT LEFT - CONSULT TO PHYSICAL THERAPY - Tx with medrol dose pack. Requested Prescriptions Signed Prescriptions Disp Refills methylPREDNISolone (MEDROL, JEREMY,) 4 mg Dose-Pack 21 tablet 0 Sig: Follow dosing instructions, take with food. F/u if not improving. Adama Mendoza MD documented in this encounterMer[facility]12-[facility]24 Telephone encounter Note * Telephone Encounter - Deana Moyer RN - 09/08/2024 4:46 PM EST Pt contacted and given results below. Pt had no further questions at this time.Deana Moyer RN [facility]12-05-2024 Miscellaneous Notes* Telephone Encounter - Deana Moyer RN - 09/08/2024 4:46 PM EST Pt contacted and given results below. Pt had no further questions at this time.Deana Moyer RN * Telephone Encounter - Rubén Gonzalez MD - 09/08/2024 9:38 AM EST lipoma * Telephone Encounter - Eulalia Ugarte MA - 09/06/2024 4:45 PM EST , Refugio calling and asking for her husbands biopsy results done 08/22/24. documented in this encounterMer[facility]12-[facility]-2024 Telephone encounter Note * Telephone Encounter - Rubén Gonzalez MD - 09/08/2024 9:38 AM EST lipoma [facility] Work Phone: [phone]) 449-225612-03-2024 Telephone encounter Note* Telephone Encounter - Eulalia Ugarte MA - 09/06/2024 4:45 PM EST Refugio calling and asking for her husbands biopsy results done 08/22/24. [facility]12-02-2024 Telephone encounter Note* Telephone Encounter - Judith Vanegas MA - 09/05/2024 10:17 AM EST Patient has a prescription sent to pharmacy on 08/29/2024 Prescription Refill Information The patient has been identified by name and date of : Yes Caregiver verified no other encounters exist for this prescription request: Yes Caregiver confirmed with patient/requestor that no other refills are due, in the near future, with this provider at this time: Yes The last office visit in the department: 04/2024 Does the patient have a future office visit with this provider/department: Yes Requested Prescriptions Pending Prescriptions Disp Refills donepezil (ARICEPT) 10 mg tablet 90 tablet 1 Sig: Take 1 tablet by mouth daily at bedtime. amLODIPine (NORVASC) 10 mg tablet 90 tablet 1 Sig: Take 1 tablet by mouth once daily. Judith Vanegas MA September 05, 2024 10:18 AM ] [facility]12-02-2024 Miscellaneous Notes* Telephone Encounter - Judith Vanegas MA - 09/05/2024 10:17 AM EST Patient has a prescription sent to pharmacy on 08/29/2024 Prescription Refill Information The patient has been identified by name and date of : Yes Caregiver verified no other encounters exist for this prescription request: Yes Caregiver confirmed with patient/requestor that no other refills are due, in the near future, with this provider at this time: Yes The last office visit in the department: 04/2024 Does the patient have a future office visit with this provider/department: Yes Requested Prescriptions Pending Prescriptions Disp Refills donepezil (ARICEPT) 10 mg tablet 90 tablet 1 Sig: Take 1 tablet by mouth daily at bedtime. amLODIPine (NORVASC) 10 mg tablet 90 tablet 1 Sig: Take 1 tablet by mouth once daily. Judith Vanegas MA September 05, 2024 10:18 AM ] * Telephone Encounter - Alejandra Salazar Jaci - 09/05/2024 9:25 AM EST Prescription Refill Information The patient has been identified by name and date of : Yes Caregiver verified no other encounters exist for this prescription request: Yes Caregiver confirmed with patient/requestor that no other refills are due, in the near future, with this provider at this time: Yes The last office visit in the department: 08-22-24 Does the patient have a future office visit with this provider/department: Yes Requested Prescriptions Pending Prescriptions Disp Refills donepezil (ARICEPT) 10 mg tablet 90 tablet 1 Sig: Take 1 tablet by mouth daily at bedtime. amLODIPine (NORVASC) 10 mg tablet 90 tablet 1 Sig: Take 1 tablet by mouth once daily. Jaci Alejandra Salazar September 05, 2024 9:25 AM documented in this encounterMer[facility]12-[facility]-2024 Telephone encounter Note * Telephone Encounter - AlejandraJaci Crawford - 09/05/2024 9:25 AM EST Prescription Refill Information The patient has been identified by name and date of : Yes Caregiver verified no other encounters exist for this prescription request: Yes Caregiver confirmed with patient/requestor that no other refills are due, in the near future, with this provider at this time: Yes The last office visit in the department: 08-22-24 Does the patient have a future office visit with this provider/department: Yes Requested Prescriptions Pending Prescriptions Disp Refills donepezil (ARICEPT) 10 mg tablet 90 tablet 1 Sig: Take 1 tablet by mouth daily at bedtime. amLODIPine (NORVASC) 10 mg tablet 90 tablet 1 Sig: Take 1 tablet by mouth once daily. Jaci Salazar September 05, 2024 9:25 AM [facility]11-25-2024 Telephone encounter Note* Telephone Encounter - Deann Suarez LPN - 08/29/2024 10:38 AM EST Prescription Refill Information The patient has been identified by name and date of : Yes Caregiver verified no other encounters exist for this prescription request: Yes The last office visit in the department: 03/04/24 ASSESSMENT/PLAN: 1. Dementia without behavioral disturbance (HCC) - ICD9: 294.20, ICD10: F03.90 (primary diagnosis) MOCA essentially unchanged. As above, taking Aricept 10mg daily and Namenda 10mg BID - tolerating without side effect. They are not wanting to add or adjust meds, and feel that overall patient is stable. Encouraged brain exercises. Will continue to follow. Refills provided. 2. NAIN (obstructive sleep apnea) - ICD9: 327.23, ICD10: G47.33 No subjective PAP complaints. Subjective and objective PAP compliance confirmed. AHI normalized on current settings. Encouraged continued compliance. Reminded pt to clean and replace equipment regularly. Pt does not drive. 3. History of CVA (cerebrovascular accident) - ICD9: V12.54, ICD10: Z86.73 No new focal deficits. On ASA. Uncertain as to why statin was discontinued and will reach out to PCP. BP goal <140/90. Glucose goal <140. 4. Altered mental status, unspecified altered mental status type - ICD9: 780.97, ICD10: R41.82 5. Abnormal EEG - ICD9: 794.02, ICD10: R94.01 Patient with changes on EEG that while not electrographic seizures, could represent epileptiform abnormalities that would suggest pt prone for seizures. This may possible be cause of prior episodes of AMS. D/w pt and his in detail these findings and explained that seizures do not require a locbut simply could be a brief change in mental status. Given history recommended trial of at least low dose ASM. However they both decline such. Seizure risks and precautions d/w pt and his . Note pt does not drive. Does the patient have a future office visit with this provider/department: Yes 12/05/24 Requested Prescriptions Pending Prescriptions Disp Refills donepezil (ARICEPT) 10 mg tablet [Pharmacy Med Name: donepezil 10 mg tablet] 90 tablet 1 Sig: Take 1 tablet by mouth daily at bedtime. Deann Suarez LPN August 29, 2024 10:38 AM [facility]11-25-2024 Miscellaneous Notes* Telephone Encounter - Deann Suarez LPN - 08/29/2024 10:38 AM EST Prescription Refill Information The patient has been identified by name and date of : Yes Caregiver verified no other encounters exist for this prescription request: Yes The last office visit in the department: 03/04/24 ASSESSMENT/PLAN: 1. Dementia without behavioral disturbance (HCC) - ICD9: 294.20, ICD10: F03.90 (primary diagnosis) MOCA essentially unchanged. As above, taking Aricept 10mg daily and Namenda 10mg BID - tolerating without side effect. They are not wanting to add or adjust meds, and feel that overall patient is stable. Encouraged brain exercises. Will continue to follow. Refills provided. 2. NAIN (obstructive sleep apnea) - ICD9: 327.23, ICD10: G47.33 No subjective PAP complaints. Subjective and objective PAP compliance confirmed. AHI normalized on current settings. Encouraged continued compliance. Reminded pt to clean and replace equipment regularly. Pt does not drive. 3. History of CVA (cerebrovascular accident) - ICD9: V12.54, ICD10: Z86.73 No new focal deficits. On ASA. Uncertain as to why statin was discontinued and will reach out to PCP. BP goal <140/90. Glucose goal <140. 4. Altered mental status, unspecified altered mental status type - ICD9: 780.97, ICD10: R41.82 5. Abnormal EEG - ICD9: 794.02, ICD10: R94.01 Patient with changes on EEG that while not electrographic seizures, could represent epileptiform abnormalities that would suggest pt prone for seizures. This may possible be cause of prior episodes of AMS. D/w pt and his in detail these findings and explained that seizures do not require a locbut simply could be a brief change in mental status. Given history recommended trial of at least low dose ASM. However they both decline such. Seizure risks and precautions d/w pt and his . Note pt does not drive. Does the patient have a future office visit with this provider/department: Yes 12/05/24 Requested Prescriptions Pending Prescriptions Disp Refills donepezil (ARICEPT) 10 mg tablet [Pharmacy Med Name: donepezil 10 mg tablet] 90 tablet 1 Sig: Take 1 tablet by mouth daily at bedtime. Deann Suarez LPN August 29, 2024 10:38 AM documented in this encounterMer[facility]11-[facility]24 Instructions* Patient Instructions* Twyla Seaman RN - 08/22/2024 1:36 PM EST The following instructions are important for you related to your office visit today with the [facility] General Surgeons. Instructions After OFFICE BASED BIOPSY After the procedure, Steri-Strips and a dressing will be placed on your small incision. The dressing may be removed in two to three days after the procedure. The Steri-Strips should be left in place until they fall off. You may restart your aspirin tomorrow morning. If you have bleeding from the biopsy site, hold pressure with a clean gauze. If the bleeding continues, contact our office immediately. I recommend taking Advil or Tylenol for the discomfort. Our office will contact you in 7-10 days, with the results. If you have not heard from us in 14 days, please call. If you note any additional difficulties, questions, or concerns, you should contact our office immediately @ [phone] and ask to be transferred to the General Surgery department. documented in this encounterMer[facility]11-18-20[facility] Note[facility] History of Present illness Narrative* Twyla Seaman RN - 08/22/2024 1:10 PM EST UNIVERSAL PROTOCOL / SAFETY CHECKLIST Procedure to be Performed: Ultrasound Guided Needle Core Biopsy back mass Sign In: A Moment of CARE was completed. Personnel directly involved with the procedure wore the appropriate PPE (Personal Protective Equipment). Special equipment: 14 gauge Bard MaxCore core biopsy instrument and ultrasound. Patient/Surrogate Stated/Verified: PATIENT VERIFIED(optional for EMERGENT procedures): Patient name, Date of , Relevant allergies, and The intended procedure Time Out Communication: Intended patient and procedure match the source documents. Consent documented and matches the intended procedure. No relevant labs, photos, and/or imaging studies were applicable for review. Correct side/site marked and visible. Medications required for procedure verified. No fire risk assessment and interventions applicable. No implant(s) inserted. Sign Out: SIGN OUT (optional for EMERGENT procedures): All specimen containers correctly labeled. No instruments, equipment or retained foreign bodies applicable. Post-procedure follow-up management communicated and Plan of Care Visit completed when applicable. Twyla Seaman RN * Rubén Gonzalez MD - 08/22/2024 1:04 PM EST Preoperative diagnosis: Subcutaneous lesion to right upper back Postoperative diagnosis: The same Procedure: Ultrasound-guided needle core biopsy of subcutaneous lesion to right upper back Surgeon: Carrie Procedure: Right upper back showed the lesion in question. I ultrasound this calista to back area appropriately. Back was then sterilely prepped and draped in the usual fashion. 1% lidocaine plain was injected. A skin rigo was made. Under ultrasound guidance 2 needle core biopsies were obtained. Sterile dressings were applied. The patient tolerated the procedure well. documented in this encounterMercy Health [facility]11-18-2024 NoteSt[facility]11-12-2024 NoteSt[facility]11-12-2024 History of Present illness Narrative* Tania Cuello LPN - 08/16/2024 2:37 PM EST Patient presents for COVID vaccine. Denies any problems at this time. Tolerated injection well. Tania Cuello LPN documented in this encounterMercy [facility]11-07-2024 NoteSt[facility]11-07-2024 History of Present illness Narrative* Rubén Gonzalez MD - 08/11/2024 1:43 PM EST HISTORY AND PHYSICAL Lory Johnson 1945 REFERRING PHYSICIAN: Danita Meraz PA-C CHIEF COMPLAINT: Consult (Mass of back) HPI: The patient is a 79 year old male with a complaint of Mass of subcutaneous tissue of back. This has been there for an unknown period of time. No reported trauma. Patient is not complaining of any pain. The patient is being seen by me today at the request of Dr. Meraz for my opinion and advice regarding Mass of subcutaneous tissue of back. PAST MEDICAL HISTORY Diagnosis Date 3-vessel CAD 11/03/2013 Abdominal aortic aneurysm (AAA) without rupture (HCC) 11/08/2016 US: 11/2016 2.6 x 2.4 x 2.0 cm, Repeat in a year US: 02/2018 Stable, 03/2019 US said no AAA, US 08/2020 no AAA no further studies needed. Actinic Keratoses (Premalignant AK's) 08/16/2013 Advance directive discussed with patient 03/26/2022 Discussed 03/2022 Anemia Anterior dislocation of right shoulder 10/31/2022 CAD S/P percutaneous coronary angioplasty 11/02/2013 Chronic left shoulder pain 06/30/2018 CKD (chronic kidney disease) stage 3, GFR 30-59 ml/min ([facility]) 04/11/2024 Dementia without behavioral disturbance ([facility]) 05/15/2016 MMSE: 22 05/2016, MMSE: 06/2019, 23 Elevated fasting blood sugar 12/01/2018 Emphysema lung ([facility]) 10/23/2023 Essential hypertension, benign 05/12/2006 Ex-smoker 10/31/2016 Started at age 15, up to 1 PPD quite at age 34 Fam hx-ischem heart disease 08/21/2009 Sister, mother Family history of colon cancer in father 06/09/2018 GERD without esophagitis 12/14/2018 History of CVA (cerebrovascular accident) 02/16/2018 Right posterior internal capsule Impaired driving skills 08/16/2019 Per Occupational Therapy Community Mobility and IADL report patient not safe to drive nor should hereturn to driving. Lipoma of right forearm 05/05/2017 Living will on file 03/26/2022 DPA: Refugio () Malignant neoplasm of prostate ([facility]) 03/01/200802/09 PATH: Left Lobe: GS 7 ( 3+4) in 1/4 cores Right Lobe : GS 6 ( 3 +) in 3/5 cores External Beam Radiotherapy -- Dr. Rishabh Yao, Renetta Landry follow Mixed hyperlipidemia 12/03/2002 Muscle pain, lumbar 09/26/2019 Neck pain 04/18/2019 NAIN (obstructive sleep apnea) 06/09/2018 Wearing CPAP, Per Neurology (Dr. Scott) Overactive bladder 08/01/2019 Rosacea 07/2003 S/P right coronary artery (RCA) stent placement 05/15/2017 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 10/31/2022 PAST SURGICAL HISTORY Procedure Laterality Date 2D ECHO (EXEP) 02/11/2018 EF=65%, mild jain dysf, mildly enlarged LA, 2D ECHO (EXEP) 10/03/2020 EF=65%, mild Jain dysfunction, COLONOSCOPY FLX DX W/COLLJ SPEC WHEN PFRMD 02/2002 Colonoscopy COLONOSCOPY FLX DX W/COLLJ SPEC WHEN PFRMD 09/14/2007 normal COLONOSCOPY FLX DX W/COLLJ SPEC WHEN PFRMD 07/23/2012 normal COLONOSCOPY FLX DX W/COLLJ SPEC WHEN PFRMD 07/28/2018 Colonoscopy, repeat 5 years ESOPHAGOGASTRODUODENOSCOPY TRANSORAL DIAGNOSTIC 02/2002 EGD ESOPHAGOGASTRODUODENOSCOPY TRANSORAL DIAGNOSTIC 12/22/2002 hiatal hernia, distal esophagitis ESOPHAGOGASTRODUODENOSCOPY TRANSORAL DIAGNOSTIC 08/03/2015 EGD ESOPHAGOGASTRODUODENOSCOPY TRANSORAL DIAGNOSTIC 11/15/2015 EGD ESOPHAGOGASTRODUODENOSCOPY TRANSORAL DIAGNOSTIC 08/13/2020 EGD HEART CATHETERIZATION 2013 Angioplasty, Promus stent to right coronary LEXISCAN STRESS TEST 10/03/[address] Morton RPR UMBILICAL HRNA 5 YRS/> REDUCIBLE 2002 Current Outpatient Medications Medication Sig losartan (COZAAR) 100 mg tablet Take 1 tablet by mouth once daily. metoprolol succinate ER (TOPROL XL) 50 mg 24 hr tablet Take 1.5 tablets by mouth once daily. solifenacin (VESICARE) 5 mg tablet Take 1 tablet by mouth once daily. levoFLOXacin (LEVAQUIN) 750 mg tablet Take 750 mg by mouth once daily. QUEtiapine (SEROQUEL) 25 mg tablet Take 25 mg by mouth daily at bedtime. pravastatin (PRAVACHOL) 80 mg tablet Take 1 tablet by mouth daily at bedtime. aspirin, enteric coated (ECOTRIN LOW STRENGTH) 81 mg EC tablet Take 1 tablet by mouth once daily. memantine (NAMENDA) 10 mg tablet Take 1 tablet by mouth two times a day. donepezil (ARICEPT) 10 mg tablet Take 1 tablet by mouth daily at bedtime. amLODIPine (NORVASC) 10 mg tablet Take 1 tablet by mouth once daily. pantoprazole DR (PROTONIX) 40 mg tablet Take 1 tablet by mouth daily before breakfast. Take on empty stomach, 1/2 hr before meal. VITAMIN B COMPLEX-100 ORAL Take by mouth. ubidecarenone/vitamin E mixed (COQ10 SG 100 ORAL) Take by mouth. nitroglycerin sublingual (NITROSTAT) 0.4 mg SL tablet Dissolve 1 tablet under the tongue every 5 minutes as needed for chest pain. cholecalciferol (VITAMIN D3) 1,000 unit tab tablet Take 1,000 Units by mouth once daily. ASCORBIC ACID, VITAMIN C, ORAL Take by mouth. Cinnamon Bark 500 mg cap Take 1 capsule by mouth once daily. Blood Pressure Cuff - Home Use BLOOD PRESSURE CUFF FOR HOME USE. DAILY MULTIVITAMIN TAB Take one(1) tablet daily. No current facility-administered medications for this visit. ALLERGIES: Zithromax [Azithromycin], Beta-Blockers (Beta-Adrenergic Blocking Agts), Lipitor [Atorvastatin], Viagra [Sildenafil], and Zetia [Ezetimibe] PERSONAL HISTORY: Social History Tobacco Use Smoking status: Former Current packs/day: 0.00 Average packs/day: 2.5 packs/day for 25.0 years (62.5 ttl pk-yrs) Types: Cigarettes Start date: 10/05/1953 Quit date: 10/05/1978 Years since quittin.8 Smokeless tobacco: Never Tobacco comments: quit 1978 Vaping Use Vaping status: Never Used Substance Use Topics Alcohol use: No Drug use: No FAMILY HISTORY: FAMILY HISTORY Problem Relation Age of Onset Prostate Cancer Father Colon Cancer Father Dx in his 70s Heart Father Had heart issues per patient Heart Sister had bypass surgery (mid-40's) Heart Mother Had heart issues per patient Heart Brother had bypass surgery REVIEW OF SYMPTOMS: The review of systems data was entered by the nurse and reviewed by me There are no exam notes on file for this visit. PHYSICAL EXAMINATION: General: The patient is 79 year old male, well nourished, well hydrated in no acute distress. The patient is oriented to time, place, and person. VITALS: Blood pressure 126/74, pulse 60, temperature 36.5 C (97.7 F), height 175.3 cm (5' 9), weight 91.6 kg (202 lb), SpO2 97%. HEENT: Normal cephalic, ataumatic, pupils are equally round, sclera are anicteric, mucous membranesare moist, oropharynx is clear. Neck has no masses, asymmetry or lymphadenopathy. Thyroid is unremarkable. Respiratory: Clear to auscultation and percussion. Normal respiratory excursion and pattern. Cardiac: Examination is regular rate and rhythm. Abdominal exam: Soft, nontender, with no palpable masses. No hepatosplenomegaly. No palpable hernias. Rectal exam: exam deferred Extremities: no clubbing, cyanosis or edema. No adenopathy. Other: Fairly large approximately 8 cm soft subcutaneous lesion in the right upper back. No signs of cellulitis no signs of trauma. No signs of rash. Overlying skin appears normal. LABORATORY VALUES: As Noted RADIOLOGIC STUDIES: As Noted Assessment IMPRESSION: Mass of subcutaneous tissue of back PLAN: Given the patient's overall condition would just like a needle core biopsy of this to prove whether or not this is potentially a sarcoma. We will offer this in the upcoming future. Off of his Eliquis. Diagnoses: (R22.2) Mass of subcutaneous tissue of back My findings have been communicated to Dr. Meraz via shared medical record. This note will be forwarded to Dr. Adama Mendoza MD. Return to Clinic: The patient is instructed to follow-up with me 1 week post operatively. Rubén Gonzalez III, MD documented in this encounterMer[facility]10-28-2024 Telephone encounter Note * Telephone Encounter - Chavez Plata LPN - 08/01/2024 9:04 AM EDT Pt's notified of results and instructions. verbalizes understanding. was assisted intransfer to schedule surgical appointment. Chavez Plata LPN [facility]10-28-2024 Miscellaneous Notes* Telephone Encounter - Chavez Plata LPN - 08/01/2024 9:04 AM EDT Pt's notified of results and instructions. verbalizes understanding. was assisted intransfer to schedule surgical appointment. Chavez Plata LPN * Telephone Encounter - Danita Meraz PA-C - 08/01/2024 7:37 AM EDT Let patient's know that the mass on his back has heterogeneous characteristics. Which is not typical with just a lipoma. So we will get surgical consult for further evaluation and possible biopsy. Danita Meraz PA-C documented in this encounterMercy Health [facility]10-28-2024 Telephone encounter Note * Telephone Encounter - Danita Meraz PA-C - 08/01/2024 7:37 AM EDT Let patient's know that the mass on his back has heterogeneous characteristics. Which is not typical with just a lipoma. So we will get surgical consult for further evaluation and possible biopsy. Danita Meraz PA-C [facility]10-23-2024 History of Present illness Narrative* Amanda Corea RDMS - 07/27/2024 1:00 PM EDT Radiology Service Progress Note PATIENT NAME: Lory Johnson DATE OF SERVICE: July 27, 2024 TIME: 2:07 PM PATIENT IDENTITY VERIFICATION COMPLETED USING TWO (2) IDENTIFIERS: Name and Date of confirmedby patient verbally. FALL SCREENING: Has the patient had 2 falls in the last year or 1 fall with injury or currently using an Ambulatory Assistive Device (Walker, Cane, Wheelchair, Crutches, etc.)? Yes, Patient High Riskfor Falls What interventions were put in place to prevent falls during this visit? Increased Observations by Caregivers PATIENT GENDER DATA: Male PATIENT RELEVANT IMPLANT DATA REVIEWED: Not Applicable PATIENT PRESENTS WITH AN IMPLANTABLE OR ATTACHED CLINICAL PROGRAM COORDINATOR: No RADIOLOGY DEPARTMENT: Ultrasound PERIPHERAL IV DATA: Not applicable SIGNED BY: Amanda Corea RDMS July 27, 2024 2:07 PM documented in this encounterMercy Health [facility]10-23-[address] NoteSt[facility]10-23-2024 Telephone encounter Note* Telephone Encounter - Chavez Plata LPN - 07/27/2024 12:21 PM EDT Prescription Refill Information The patient has been identified by name and date of : Yes Caregiver verified no other encounters exist for this prescription request: Yes Caregiver confirmed with patient/requestor that no other refills are due, in the near future, with this provider at this time: Yes The last office visit in the department: 07/21/24 Does the patient have a future office visit with this provider/department: Yes Requested Prescriptions Pending Prescriptions Disp Refills losartan (COZAAR) 100 mg tablet 90 tablet 1 Sig: Take 1 tablet by mouth once daily. metoprolol succinate ER (TOPROL XL) 50 mg 24 hr tablet 135 tablet 1 Sig: Take 1.5 tablets by mouth once daily. Chavez Plata LPN July 27, 2024 12:21 PM [facility]10-23-2024 Miscellaneous Notes* Telephone Encounter - Chavez Plata LPN - 07/27/2024 12:21 PM EDT Prescription Refill Information The patient has been identified by name and date of : Yes Caregiver verified no other encounters exist for this prescription request: Yes Caregiver confirmed with patient/requestor that no other refills are due, in the near future, with this provider at this time: Yes The last office visit in the department: 07/21/24 Does the patient have a future office visit with this provider/department: Yes Requested Prescriptions Pending Prescriptions Disp Refills losartan (COZAAR) 100 mg tablet 90 tablet 1 Sig: Take 1 tablet by mouth once daily. metoprolol succinate ER (TOPROL XL) 50 mg 24 hr tablet 135 tablet 1 Sig: Take 1.5 tablets by mouth once daily. Chavez Plata LPN July 27, 2024 12:21 PM * Telephone Encounter - Yolie Sarmiento - 07/27/2024 11:56 AM EDT Patient has been identified by name and date of : Yes, Spouse phones for refill(s): Requested Prescriptions Pending Prescriptions Disp Refills losartan (COZAAR) 100 mg tablet 90 tablet 1 Sig: Take 1 tablet by mouth once daily. metoprolol succinate ER (TOPROL XL) 50 mg 24 hr tablet 135 tablet 1 Sig: Take 1.5 tablets by mouth once daily. Date of last office visit in primary care: 07/21/2024 Date of next office visit in primary care: 10/17/2024 Please advise. Thank you. Yolie Sarmiento. documented in this encounterMercy Health [facility]10-23-2024 Telephone encounter Note * Telephone Encounter - Yolie Sarmiento - 07/27/2024 11:56 AM EDT Patient has been identified by name and date of : Yes, Spouse phones for refill(s): Requested Prescriptions Pending Prescriptions Disp Refills losartan (COZAAR) 100 mg tablet 90 tablet 1 Sig: Take 1 tablet by mouth once daily. metoprolol succinate ER (TOPROL XL) 50 mg 24 hr tablet 135 tablet 1 Sig: Take 1.5 tablets by mouth once daily. Date of last office visit in primary care: 07/21/2024 Date of next office visit in primary care: 10/17/2024 Please advise. Thank you. Yolie Sarimento. [facility] History of Present illness Narrative* Danita Meraz PA-C - 07/21/2024 12:05 PM EDT Chief Complaint Patient presents with: Derm Problem: Patient had bump right shoulder blade HPI Lory Johnson is a 79 year old male who presents here today for Above Complaints.. Patient's noted a lump on his back yesterday while helping him get dressed. No pain. No injury Past medical history, appointments, medications, allergies reviewed. Previous Medical History PAST MEDICAL HISTORY Diagnosis Date 3-vessel CAD 11/03/2013 Abdominal aortic aneurysm (AAA) without rupture (HCC) 11/08/2016 US: 11/2016 2.6 x 2.4 x 2.0 cm, Repeat in a year US: 02/2018 Stable, 03/2019 US said no AAA, US 08/2020 no AAA no further studies needed. Actinic Keratoses (Premalignant AK's) 08/16/2013 Advance directive discussed with patient 03/26/2022 Discussed 03/2022 Anemia Anterior dislocation of right shoulder 10/31/2022 CAD S/P percutaneous coronary angioplasty 11/02/2013 Chronic left shoulder pain 06/30/2018 CKD (chronic kidney disease) stage 3, GFR 30-59 ml/min ([facility]) 04/11/2024 Dementia without behavioral disturbance ([facility]) 05/15/2016 MMSE: 22 05/2016, MMSE: 06/2019, 23 Elevated fasting blood sugar 12/01/2018 Emphysema lung ([facility]) 10/23/2023 Essential hypertension, benign 05/12/2006 Ex-smoker 10/31/2016 Started at age 15, up to 1 PPD quite at age 34 Fam hx-ischem heart disease 08/21/2009 Sister, mother Family history of colon cancer in father 06/09/2018 GERD without esophagitis 12/14/2018 History of CVA (cerebrovascular accident) 02/16/2018 Right posterior internal capsule Impaired driving skills 08/16/2019 Per Occupational Therapy Community Mob[employer] and IADL report patient not safe to drive nor should hereturn to driving. Lipoma of right forearm 05/05/2017 Living will on file 03/26/2022 DPA: Refugio () Malignant neoplasm of prostate ([facility]) 03/01/200802/09 PATH: Left Lobe: GS 7 ( 3+4) in 1/4 cores Right Lobe : GS 6 ( 3 +) in 3/5 cores External Beam Radiotherapy -- Dr. Rishabh Yao, Renetta Landry follow Mixed hyperlipidemia 12/03/2002 Muscle pain, lumbar 09/26/2019 Neck pain 04/18/2019 NAIN (obstructive sleep apnea) 06/09/2018 Wearing CPAP, Per Neurology (Dr. Scott) Overactive bladder 08/01/2019 Rosacea 07/2003 S/P right coronary artery (RCA) stent placement 05/15/2017 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 10/31/2022 Previous Surgical History PAST SURGICAL HISTORY Procedure Laterality Date 2D ECHO (EXEP) 02/11/2018 EF=65%, mild jain dysf, mildly enlarged LA, 2D ECHO (EXEP) 10/03/2020 EF=65%, mild Jain dysfunction, COLONOSCOPY FLX DX W/COLLJ SPEC WHEN PFRMD 02/2002 Colonoscopy COLONOSCOPY FLX DX W/COLLJ SPEC WHEN PFRMD 09/14/2007 normal COLONOSCOPY FLX DX W/COLLJ SPEC WHEN PFRMD 07/23/2012 normal COLONOSCOPY FLX DX W/COLLJ SPEC WHEN PFRMD 07/28/2018 Colonoscopy, repeat 5 years ESOPHAGOGASTRODUODENOSCOPY TRANSORAL DIAGNOSTIC 02/2002 EGD ESOPHAGOGASTRODUODENOSCOPY TRANSORAL DIAGNOSTIC 12/22/2002 hiatal hernia, distal esophagitis ESOPHAGOGASTRODUODENOSCOPY TRANSORAL DIAGNOSTIC 08/03/2015 EGD ESOPHAGOGASTRODUODENOSCOPY TRANSORAL DIAGNOSTIC 11/15/2015 EGD ESOPHAGOGASTRODUODENOSCOPY TRANSORAL DIAGNOSTIC 08/13/2020 EGD HEART CATHETERIZATION 2013 Angioplasty, Promus stent to right coronary LEXISCAN STRESS TEST 10/03/[address] Morton RPR UMBILICAL HRNA 5 YRS/> REDUCIBLE 2002 Family History FAMILY HISTORY Problem Relation Age of Onset Prostate Cancer Father Colon Cancer Father Dx in his 70s Heart Father Had heart issues per patient Heart Sister had bypass surgery (mid-40's) Heart Mother Had heart issues per patient Heart Brother had bypass surgery Patient Allergies ALLERGIES Allergen Reactions Zithromax [Azithrom* Itching Beta-Blockers (Beta* Unknown Lipitor [Atorvastat* Intolerance Viagra [Sildenafil] Unknown Zetia [Ezetimibe] Mental Status Change Current Medications Current Outpatient Medications on File Prior to Visit Medication Sig solifenacin (VESICARE) 5 mg tablet Take 1 tablet by mouth once daily. QUEtiapine (SEROQUEL) 25 mg tablet Take 25 mg by mouth daily at bedtime. pravastatin (PRAVACHOL) 80 mg tablet Take 1 tablet by mouth daily at bedtime. aspirin, enteric coated (ECOTRIN LOW STRENGTH) 81 mg EC tablet Take 1 tablet by mouth once daily. memantine (NAMENDA) 10 mg tablet Take 1 tablet by mouth two times a day. donepezil (ARICEPT) 10 mg tablet Take 1 tablet by mouth daily at bedtime. amLODIPine (NORVASC) 10 mg tablet Take 1 tablet by mouth once daily. losartan (COZAAR) 100 mg tablet Take 1 tablet by mouth once daily. metoprolol succinate ER (TOPROL XL) 50 mg 24 hr tablet Take 1.5 tablets by mouth once daily. pantoprazole DR (PROTONIX) 40 mg tablet Take 1 tablet by mouth daily before breakfast. Take on empty stomach, 1/2 hr before meal. VITAMIN B COMPLEX-100 ORAL Take by mouth. ubidecarenone/vitamin E mixed (COQ10 SG 100 ORAL) Take by mouth. nitroglycerin sublingual (NITROSTAT) 0.4 mg SL tablet Dissolve 1 tablet under the tongue every 5 minutes as needed for chest pain. cholecalciferol (VITAMIN D3) 1,000 unit tab tablet Take 1,000 Units by mouth once daily. ASCORBIC ACID, VITAMIN C, ORAL Take by mouth. Cinnamon Bark 500 mg cap Take 1 capsule by mouth once daily. Blood Pressure Cuff - Home Use BLOOD PRESSURE CUFF FOR HOME USE. DAILY MULTIVITAMIN TAB Take one(1) tablet daily. levoFLOXacin (LEVAQUIN) 750 mg tablet Take 750 mg by mouth once daily. (Patient not taking: Reported on 07/21/2024) No current facility-administered medications on file prior to visit. Social History Social History Tobacco Use Smoking status: Former Current packs/day: 0.00 Average packs/day: 2.5 packs/day for 25.0 years (62.5 ttl pk-yrs) Types: Cigarettes Start date: 10/05/1953 Quit date: 10/05/1978 Years since quittin.8 Smokeless tobacco: Never Tobacco comments: quit 1978 Vaping Use Vaping status: Never Used Substance Use Topics Alcohol use: No Drug use: No Review of Symptoms REVIEW OF SYSTEMS See hpi EXAM: BP 122/82 (BP Site: Left Arm, BP Position: Sitting, BP Cuff Size: Large Adult) Pulse (!) 59 Temp 36.6 C (97.9 F) Resp 16 Wt 91.6 kg (202 lb) SpO2 97% BMI 29.83 kg/m General Appearance: Well appearing, alert, in no acute distress, well-hydrated, well nourished.. Skin: nontender mass on upper right back. About 8cm in size. No erythema. No fluctuance. mobile. Health Maintenance List Influenza Vaccine(1) due on 06/05/2024 Covid-19 Vaccine( season) due on 06/05/2024 RSV Vaccine(1 - 1-dose 75+ series) due on 04/11/2025 LDL Cholesterol due on 05/10/2025 Diabetes Screening due on 05/10/2027 DTaP,Tdap,Td Vaccine(3 - Td or Tdap) due on 04/09/2028 Spirometry Completed Advance Directive Discussion Completed Shingrix Vaccine Completed Pneumococcal Vaccine: 65+ Completed Colorectal Cancer Screening Discontinued Data reviewed ASSESSMENT/PLAN: 1. Mass of subcutaneous tissue of back - ICD9: 782.2, ICD10: R22.2 Suspect lipoma vs cyst. Less likely sarcoma. Check US - US CHEST WALL/SOFT TISSUE Danita Meraz PA-C documented [facility] Telephone encounter Note * Telephone Encounter - Adama Mendoza MD - 07/07/2024 2:53 PM EDT The following approved medication requests have been transmitted electronically. Requested Prescriptions Signed Prescriptions Disp Refills solifenacin (VESICARE) 5 mg tablet 90 tablet 1 Sig: Take 1 tablet by mouth once daily. Authorizing Provider: ADAMA MENDOZA MD [facility]10-03-[facility]24 Miscellaneous Notes* Telephone Encounter - Adama Mendoza MD - 07/07/2024 2:53 PM EDT The following approved medication requests have been transmitted electronically. Requested Prescriptions Signed Prescriptions Disp Refills solifenacin (VESICARE) 5 mg tablet 90 tablet 1 Sig: Take 1 tablet by mouth once daily. Authorizing Provider: ADAMA MENDOZA MD * Telephone Encounter - Chavez Plata LPN - 07/07/2024 2:43 PM EDT Please see below. Chavez Plata LPN * Telephone Encounter - Yolie Sarmiento - 07/07/2024 2:18 PM EDT Patient has 2 pills left. Please expedite. Patient has been identified by name and date of : Yes Spouse phones for refill(s): Requested Prescriptions Pending Prescriptions Disp Refills solifenacin (VESICARE) 5 mg tablet 90 tablet 1 Sig: Take 1 tablet by mouth once daily. Date of last office visit in primary care: 06/28/2024 Date of next office visit in primary care: 10/17/2024 Please advise. Thank you. Yolie Sarmiento. documented in [facility]10-[facility]-2024 Telephone encounter Note * Telephone Encounter - Chavez Plata LPN - 07/07/2024 2:43 PM EDT Please see below. Chavez Plata LPN [facility] Telephone encounter Note* Telephone Encounter - Yolie Sarmiento - 07/07/2024 2:18 PM EDT Patient has 2 pills left. Please expedite. Patient has been identified by name and date of : Yes Spouse phones for refill(s): Requested Prescriptions Pending Prescriptions Disp Refills solifenacin (VESICARE) 5 mg tablet 90 tablet 1 Sig: Take 1 tablet by mouth once daily. Date of last office visit in primary care: 06/28/2024 Date of next office visit in primary care: 10/17/2024 Please advise. Thank you. Yolie Sarmiento. [facility] History of Present illness Narrative* Amanda Montana PA-C - 06/28/2024 1:36 PM EDT 06/28/2024 Patient presents with: Same Day Appointment: left middle finger- swollen, possible gout SUBJECTIVE: This is a 79 year old that is here today with caregiver for Complaint(s) of painful left middle finger. He was hospitalized on 06/08 for RML pneumonia for 6 days. He developed a cellulitis in the right elbow and treated with Levaquin, and then Duricef and prednisone. Finished this on 06/22. Was thought tohave possible gout as well. Developed swelling of the left middle finger yesterday. Unknown injury/trauma. Area is slightly redand swollen and painful. No red streaking. Denies fever/chills. PAST MEDICAL HISTORY Diagnosis Date 3-vessel CAD 11/03/2013 Abdominal aortic aneurysm (AAA) without rupture ([facility]) 11/08/2016 US: 11/2016 2.6 x 2.4 x 2.0 cm, Repeat in a year US: 02/2018 Stable, 03/2019 US said no AAA, US 08/2020 no AAA no further studies needed. Actinic Keratoses (Premalignant AK's) 08/16/2013 Advance directive discussed with patient 03/26/2022 Discussed 03/2022 Anemia Anterior dislocation of right shoulder 10/31/2022 CAD S/P percutaneous coronary angioplasty 11/02/2013 Chronic left shoulder pain 06/30/2018 CKD (chronic kidney disease) stage 3, GFR 30-59 ml/min ([facility]) 04/11/2024 Dementia without behavioral disturbance ([facility]) 05/15/2016 MMSE: 22 05/2016, MMSE: 06/2019, 23 Elevated fasting blood sugar 12/01/2018 Emphysema lung ([facility]) 10/23/2023 Essential hypertension, benign 05/12/2006 Ex-smoker 10/31/2016 Started at age 15, up to 1 PPD quite at age 34 Fam hx-ischem heart disease 08/21/2009 Sister, mother Family history of colon cancer in father 06/09/2018 GERD without esophagitis 12/14/2018 History of CVA (cerebrovascular accident) 02/16/2018 Right posterior internal capsule Impaired driving skills 08/16/2019 Per Occupational Therapy Community Mobility and IADL report patient not safe to drive nor should hereturn to driving. Lipoma of right forearm 05/05/2017 Living will on file 03/26/2022 DPA: Ref[place] () Malignant neoplasm of prostate ([facility]) 03/01/200802/09 PATH: Left Lobe: GS 7 ( 3+4) in 1/4 cores Right Lobe : GS 6 ( 3 +) in 3/5 cores External Beam Radiotherapy -- Dr. Rishabh Yao, Renetta Landry follow Mixed hyperlipidemia 12/03/2002 Muscle pain, lumbar 09/26/2019 Neck pain 04/18/2019 NAIN (obstructive sleep apnea) 06/09/2018 Wearing CPAP, Per Neurology (Dr. Scott) Overactive bladder 08/01/2019 Rosacea 07/2003 S/P right coronary artery (RCA) stent placement 05/15/2017 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 10/31/2022 ALLERGIES Zithromax [Azithromycin], Beta-Blockers (Beta-Adrenergic Blocking Agts), Lipitor [Atorvastatin], Viagra [Sildenafil], and Zetia [Ezetimibe] MEDICATIONS Current Outpatient Medications Medication Sig solifenacin (VESICARE) 5 mg tablet Take 1 tablet by mouth once daily. levoFLOXacin (LEVAQUIN) 750 mg tablet Take 750 mg by mouth once daily. QUEtiapine (SEROQUEL) 25 mg tablet Take 25 mg by mouth daily at bedtime. pravastatin (PRAVACHOL) 80 mg tablet Take 1 tablet by mouth daily at bedtime. aspirin, enteric coated (ECOTRIN LOW STRENGTH) 81 mg EC tablet Take 1 tablet by mouth once daily. memantine (NAMENDA) 10 mg tablet Take 1 tablet by mouth two times a day. donepezil (ARICEPT) 10 mg tablet Take 1 tablet by mouth daily at bedtime. amLODIPine (NORVASC) 10 mg tablet Take 1 tablet by mouth once daily. losartan (COZAAR) 100 mg tablet Take 1 tablet by mouth once daily. metoprolol succinate ER (TOPROL XL) 50 mg 24 hr tablet Take 1.5 tablets by mouth once daily. pantoprazole DR (PROTONIX) 40 mg tablet Take 1 tablet by mouth daily before breakfast. Take on empty stomach, 1/2 hr before meal. VITAMIN B COMPLEX-100 ORAL Take by mouth. ubidecarenone/vitamin E mixed (COQ10 SG 100 ORAL) Take by mouth. nitroglycerin sublingual (NITROSTAT) 0.4 mg SL tablet Dissolve 1 tablet under the tongue every 5 minutes as needed for chest pain. cholecalciferol (VITAMIN D3) 1,000 unit tab tablet Take 1,000 Units by mouth once daily. ASCORBIC ACID, VITAMIN C, ORAL Take by mouth. Cinnamon Bark 500 mg cap Take 1 capsule by mouth once daily. Blood Pressure Cuff - Home Use BLOOD PRESSURE CUFF FOR HOME USE. DAILY MULTIVITAMIN TAB Take one(1) tablet daily. No current facility-administered medications for this visit. SOCIAL HISTORY Social History Tobacco Use Smoking status: Former Current packs/day: 0.00 Average packs/day: 2.5 packs/day for 25.0 years (62.5 ttl pk-yrs) Types: Cigarettes Start date: 10/05/1953 Quit date: 10/05/1978 Years since quittin.7 Smokeless tobacco: Never Tobacco comments: quit 1978 Vaping Use Vaping status: Never Used Substance Use Topics Alcohol use: No Drug use: No REVIEW OF SYSTEMS See HPI OBJECTIVE: BP 122/62 (BP Site: Left Arm, BP Position: Sitting, BP Cuff Size: Large Adult) Pulse 64 Resp 14 Ht 175.3 cm (5' 9) Wt 93 kg (205 lb) SpO2 96% BMI 30.27 kg/m APPEARANCE Well appearing, alert, in no acute distress, well-hydrated, well nourished. EXTREMITIES right upper extremity with normal exam.normal ROM elbow, no erythema, warmth. Left middle digit with edema of the PIP joint. Slight erythema, no warmth, abrasion, drainage, lymphangitic streaking. Normal ROM> ASSESSMENT/PLAN: 1. Pain of finger of left hand - ICD9: 729.5, ICD10: M79.645 Suspect possible gout. Less suspicious for cellulitis. No known injury/trauma, but history of dementia. Start prednisone, XR if not improving - XR DIGIT GENERAL 3V FRONTAL/LAT/OBL LEFT Close f/u scheduled in 48 hours for recheck, sooner if worsening Reviewed red flags and when to seek care sooner. The patient and caregiver indicates understanding of these issues and agrees with the plan. Amanda Montana PA-C documented in this encounter[facility]09-[facility] History of Present illness Narrative* Jelena Lazar APRN.EMBROIDERY ASSISTANT - 06/22/2024 11:20 AM EDT This is a 79 year old male who presents today with: Patient presents with: Follow Up: 1 week follow up for cellulitis of right elbow HISTORY OF PRESENT ILLNESS: Lory Johnson is a 79 year old male. Patient presents with: Follow Up: 1 week follow up for cellulitis of right elbow Patient of Dr. Mendoza here in the office for 1 week follow-up. Last week was seen in the office by myself and PCP for right elbow swelling. Covered for both cellulitis and possible gout flare. Started on Duricef 500 mg 2 times daily for 7 days and given a prednisone taper. Finished medication. Right arm has healed well without any issues. No fever or chills. Still recovering from pneumonia. refers that he is still having an ongoing cough, refers that he has difficulty getting mucus out. No shortness of breath. PAST MEDICAL HISTORY: PAST MEDICAL HISTORY Diagnosis Date 3-vessel CAD 11/03/2013 Abdominal aortic aneurysm (AAA) without rupture ([facility]) 11/08/2016 US: 11/2016 2.6 x 2.4 x 2.0 cm, Repeat in a year US: 02/2018 Stable, 03/2019 US said no AAA, US 08/2020 no AAA no further studies needed. Actinic Keratoses (Premalignant AK's) 08/16/2013 Advance directive discussed with patient 03/26/2022 Discussed 03/2022 Anemia Anterior dislocation of right shoulder 10/31/2022 CAD S/P percutaneous coronary angioplasty 11/02/2013 Chronic left shoulder pain 06/30/2018 CKD (chronic kidney disease) stage 3, GFR 30-59 ml/min ([facility]) 04/11/2024 Dementia without behavioral disturbance ([facility]) 05/15/2016 MMSE: 22 05/2016, MMSE: 06/2019, 23 Elevated fasting blood sugar 12/01/2018 Emphysema lung ([facility]) 10/23/2023 Essential hypertension, benign 05/12/2006 Ex-smoker 10/31/2016 Started at age 15, up to 1 PPD quite at age 34 Fam hx-ischem heart disease 08/21/2009 Sister, mother Family history of colon cancer in father 06/09/2018 GERD without esophagitis 12/14/2018 History of CVA (cerebrovascular accident) 02/16/2018 Right posterior internal capsule Impaired driving skills 08/16/2019 Per Occupational Therapy Community Mob[facility] and IADL report patient not safe to drive nor should hereturn to driving. Lipoma of right forearm 05/05/2017 Living will on file 03/26/2022 DPA: Refugio () Malignant neoplasm of prostate ([facility]) 03/01/200802/09 PATH: Left Lobe: GS 7 ( 3+4) in 1/4 cores Right Lobe : GS 6 ( 3 +) in 3/5 cores External Beam Radiotherapy -- Dr. Rishabh Yao, Renetta Landry follow Mixed hyperlipidemia 12/03/2002 Muscle pain, lumbar 09/26/2019 Neck pain 04/18/2019 NAIN (obstructive sleep apnea) 06/09/2018 Wearing CPAP, Per Neurology (Dr. Scott) Overactive bladder 08/01/2019 Rosacea 07/2003 S/P right coronary artery (RCA) stent placement 05/15/2017 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 10/31/2022 PAST SURGICAL HISTORY Procedure Laterality Date 2D ECHO (EXEP) 02/11/2018 EF=65%, mild jain dysf, mildly enlarged LA, 2D ECHO (EXEP) 10/03/2020 EF=65%, mild Jain dysfunction, COLONOSCOPY FLX DX W/COLLJ SPEC WHEN PFRMD 02/2002 Colonoscopy COLONOSCOPY FLX DX W/COLLJ SPEC WHEN PFRMD 09/14/2007 normal COLONOSCOPY FLX DX W/COLLJ SPEC WHEN PFRMD 07/23/2012 normal COLONOSCOPY FLX DX W/COLLJ SPEC WHEN PFRMD 07/28/2018 Colonoscopy, repeat 5 years ESOPHAGOGASTRODUODENOSCOPY TRANSORAL DIAGNOSTIC 02/2002 EGD ESOPHAGOGASTRODUODENOSCOPY TRANSORAL DIAGNOSTIC 12/22/2002 hiatal hernia, distal esophagitis ESOPHAGOGASTRODUODENOSCOPY TRANSORAL DIAGNOSTIC 08/03/2015 EGD ESOPHAGOGASTRODUODENOSCOPY TRANSORAL DIAGNOSTIC 11/15/2015 EGD ESOPHAGOGASTRODUODENOSCOPY TRANSORAL DIAGNOSTIC 08/13/2020 EGD HEART CATHETERIZATION 2013 Angioplasty, Promus stent to right coronary LEXISCAN STRESS TEST 10/03/[address] Morton RPR UMBILICAL HRNA 5 YRS/> REDUCIBLE 2002 ALLERGIES Zithromax [Azithromycin], Beta-Blockers (Beta-Adrenergic Blocking Agts), Lipitor [Atorvastatin], Viagra [Sildenafil], and Zetia [Ezetimibe] MEDICATIONS Current Outpatient Medications Medication Sig levoFLOXacin (LEVAQUIN) 750 mg tablet Take 750 mg by mouth once daily. QUEtiapine (SEROQUEL) 25 mg tablet Take 25 mg by mouth daily at bedtime. predniSONE (DELTASONE) 10 mg tablet Take 4 tabs daily for 3 days, then 2 tabs daily for 3 days, then 1 tab daily for 3 days with food. cefADROxil (DURICEF) 500 mg capsule Take 1 capsule by mouth two times a day for 7 days. pravastatin (PRAVACHOL) 80 mg tablet Take 1 tablet by mouth daily at bedtime. aspirin, enteric coated (ECOTRIN LOW STRENGTH) 81 mg EC tablet Take 1 tablet by mouth once daily. memantine (NAMENDA) 10 mg tablet Take 1 tablet by mouth two times a day. donepezil (ARICEPT) 10 mg tablet Take 1 tablet by mouth daily at bedtime. amLODIPine (NORVASC) 10 mg tablet Take 1 tablet by mouth once daily. solifenacin (VESICARE) 5 mg tablet Take 1 tablet by mouth once daily. losartan (COZAAR) 100 mg tablet Take 1 tablet by mouth once daily. metoprolol succinate ER (TOPROL XL) 50 mg 24 hr tablet Take 1.5 tablets by mouth once daily. pantoprazole DR (PROTONIX) 40 mg tablet Take 1 tablet by mouth daily before breakfast. Take on empty stomach, 1/2 hr before meal. VITAMIN B COMPLEX-100 ORAL Take by mouth. ubidecarenone/vitamin E mixed (COQ10 SG 100 ORAL) Take by mouth. nitroglycerin sublingual (NITROSTAT) 0.4 mg SL tablet Dissolve 1 tablet under the tongue every 5 minutes as needed for chest pain. cholecalciferol (VITAMIN D3) 1,000 unit tab tablet Take 1,000 Units by mouth once daily. ASCORBIC ACID, VITAMIN C, ORAL Take by mouth. Cinnamon Bark 500 mg cap Take 1 capsule by mouth once daily. Blood Pressure Cuff - Home Use BLOOD PRESSURE CUFF FOR HOME USE. DAILY MULTIVITAMIN TAB Take one(1) tablet daily. No current facility-administered medications for this visit. FAMILY HISTORY Problem Relation Age of Onset Prostate Cancer Father Colon Cancer Father Dx in his 70s Heart Father Had heart issues per patient Heart Sister had bypass surgery (mid-40's) Heart Mother Had heart issues per patient Heart Brother had bypass surgery Social History Tobacco Use Smoking status: Former Current packs/day: 0.00 Average packs/day: 2.5 packs/day for 25.0 years (62.5 ttl pk-yrs) Types: Cigarettes Start date: 10/05/1955 Quit date: 10/05/1978 Years since quittin.7 Smokeless tobacco: Never Tobacco comments: quit 1978 Vaping Use Vaping status: Never Used Substance Use Topics Alcohol use: No Drug use: No REVIEW OF SYSTEMS GENERAL: No weight loss, malaise or fevers/chills HEENT: Negative for frequent or significant headaches, No changes in hearing or vision. NECK: Negative for lumps, goiter, pain and significant neck swelling RESPIRATORY: + Cough CARDIOVASCULAR: Negative for chest pain, leg swelling, orthopnea, or palpitations GI: No nausea, vomiting, or diarrhea/constipation. No hematochezia/melena. No heartburn or reflux symptoms. : No history of dysuria, frequency or incontinence MUSCULOSKELETAL: Negative for joint pain or swelling. SKIN: Negative for lesions, rash, and itching ENDOCRINE: Negative for cold or heat intolerance, polyuria, polydipsia and goiter NEURO: No history of headaches, syncope, paralysis, seizures or tremors MOOD: Negative for depression, anxiety, or suicidal ideation. EXAM: BP 144/79 Pulse 62 Resp 16 Wt 92.7 kg (204 lb 5.9 oz) SpO2 96% BMI 30.18 kg/m PHYSICAL EXAM: General Appearance: Well appearing, alert, in no acute distress, well-hydrated, well nourished. Skin: Skin color, texture, turgor normal, no suspicious rashes or lesions. Head: Normocephalic, no masses, lesions, tenderness or abnormalities. Eyes: Anicteric sclera. Extraocular movements are intact. Lungs: Lungs clear to auscultation. No wheezing, rhonchi, rales. Heart: RRR without murmur, gallop, or rubs. No ectopy. Extremities: No deformities, edema, skin discoloration, clubbing or cyanosis. Good capillary refill. Musculoskeletal: No joint swelling, deformity, or tenderness. Peripheral Pulses: Normal, Capillary refill <2secs, strong peripheral pulses, Pulses palpable. Neurologic: Gait normal. Sensation grossly intact. ASSESSMENT/PLAN: 1. Cellulitis of skin - ICD9: 682.9, ICD10: L03.90 (primary diagnosis) - Resolved, continue to monitor at home. 2. Acute gout of right elbow, unspecified cause - ICD9: 274.01, ICD10: M10.9 - Same plan as #1. 3. Bacterial pneumonia - ICD9: 482.9, ICD10: J15.9 - May use Mucinex [id number] as needed for chest congestion. - May complete chest x-ray in the future if symptoms do not improve or get worse. Patient's verbalizes understanding. - XR CHEST 2V FRONTAL/LAT Follow-up as needed. Discussed treatment plan and patient voices understanding. Patient's questions answered appropriately. Medications and potential side effects were discussed and patient voices understanding. Jelena Lazar APRN.CNP This note was partially generated using Pushfor voice recognition system. Note was reviewed for accuracy. There may be minor misspellings or grammar miscues with Pushfor voice recognition. documented in this encounter[facility]24 Instructions* Patient Instructions* Jelena Lazar APRN.CNP - 06/22/2024 11:08 AM EDT Continue supportive care at home Stay well hydrated May use mucinex as needed for chest congestion. Any worsening symptoms, increased cough complete chest xray Follow up as needed. documented in this encounterMer[facility]09-18-2024 Telephone encounter Note * Telephone Encounter - Avis Theodore - 06/22/2024 10:17 AM EDT Prescription Refill Information The patient has been identified by name and date of : Yes Caregiver verified no other encounters exist for this prescription request: Yes Caregiver confirmed with patient/requestor that no other refills are due, in the near future, with this provider at this time: Yes The last office visit in the department: 06/15/24 Does the patient have a future office visit with this provider/department: Yes Requested Prescriptions Pending Prescriptions Disp Refills solifenacin (VESICARE) 5 mg tablet 90 tablet 1 Sig: Take 1 tablet by mouth once daily. Avsi Salazar June 22, 2024 10:18 AM [facility]09-18-[facility] Miscellaneous Notes* Telephone Encounter - Avis Theodore - 06/22/2024 10:17 AM EDT Prescription Refill Information The patient has been identified by name and date of : Yes Caregiver verified no other encounters exist for this prescription request: Yes Caregiver confirmed with patient/requestor that no other refills are due, in the near future, with this provider at this time: Yes The last office visit in the department: 06/15/24 Does the patient have a future office visit with this provider/department: Yes Requested Prescriptions Pending Prescriptions Disp Refills solifenacin (VESICARE) 5 mg tablet 90 tablet 1 Sig: Take 1 tablet by mouth once daily. Avis Salazar June 22, 2024 10:18 AM documented in this encounterMer[facility]09-12-2024 Miscellaneous Notes* Telephone Encounter - Dedra Ayala MA - 06/16/2024 9:05 AM EDT Pt notified and voiced understanding. Dedra Ayala MA * Telephone Encounter - Adama Mendoza MD - 06/16/2024 8:23 AM EDT Let patient's know his CBC was fine. His Uric acid was ok but in acute gout attacks it can be normal. Cont with the antibiotic and steroid. documented in this encounterMer[facility]09-12-2024 Telephone encounter Note * Telephone Encounter - Dedra Ayala MA - 06/16/2024 9:05 AM EDT Pt notified and voiced understanding. Dedra Ayala MA [facility] Telephone encounter Note* Telephone Encounter - Adama Mendoza MD - 06/16/2024 8:23 AM EDT Let patient's know his CBC was fine. His Uric acid was ok but in acute gout attacks it can be normal. Cont with the antibiotic and steroid. [facility] History of Present illness Narrative* Adama Mendoza MD - 06/15/2024 11:00 AM EDT Chief Complaint Patient presents with: Hospital F/U HPI Lory Johnson is a 79 year old male who presents here today for Hospital Discharge Follow up.. Patient was sent to the [facility] ER for possible UTI and confusion. Patient does have a history of dementia. Bladder scan was completed and patient was able to void. Urinalysis was negative for infection.CBC with diff WBC was 20.9; hemoglobin 14 and platelet count 225. The obtain CT of abdomen/pelvic with IV contrast and that did not show any acute abnormality. It did show some suspicion for infiltrate in right lower lobe. COVID/Flu/RSV negative. Chest xray did show right lower lobe infiltrate. Wasstarted on Levaquin IV. Patient was admitted. Patient was discharged home with quetiapine 25 mg and Levofloxacin 750 mg. Patient has completed Levofloxacin. Still taking the quetiapine for sleep and seems to be helping and has decreased his wandering.. [facility] to [facility] transferred to [facility] facility however he was walking ok on his own. Patient was seen this morning with Jelena Galloway and he was given predisone for his right elbow How is patient feeling today? Is feeling better. indicated that there son has asked them to come stay with him while they both get better. Still has a cough. No fever. Cough is dry, but on occasion sounds moist. No nausea or vomiting. No shortness of breath or wheezing. Past medical history, appointments, medications, allergies reviewed. Previous Medical History PAST MEDICAL HISTORY 11/03/2013: 3-vessel CAD 11/08/2016: Abdominal aortic aneurysm (AAA) without rupture (HCC) Comment: US: 11/2016 2.6 x 2.4 x 2.0 cm, Repeat in a year US: 02/2018 Stable, 03/2019 US said no AAA, US 08/2020 no AAA no further studies needed. 08/16/2013: Actinic Keratoses (Premalignant AK's) 03/26/2022: Advance directive discussed with patient Comment: Discussed 03/2022 No date: Anemia 10/31/2022: Anterior dislocation of right shoulder 11/02/2013: CAD S/P percutaneous coronary angioplasty 06/30/2018: Chronic left shoulder pain 04/11/2024: CKD (chronic kidney disease) stage 3, GFR 30-59 ml/min ([facility]) 05/15/2016: Dementia without behavioral disturbance ([facility]) Comment: MMSE: 22 05/2016, MMSE: 06/2019, 23 12/01/2018: Elevated fasting blood sugar 10/23/2023: Emphysema lung (HCC) 05/12/2006: Essential hypertension, benign 10/31/2016: Ex-smoker Comment: Started at age 15, up to 1 PPD quite at age 34 08/21/2009: Fam hx-ischem heart disease Comment: Sister, mother 06/09/2018: Family history of colon cancer in father 12/14/2018: GERD without esophagitis 02/16/2018: History of CVA (cerebrovascular accident) Comment: Right posterior internal capsule 08/16/2019: Impaired driving skills Comment: Per Occupational Therapy [facility] and IADL report patient not safe to drive nor should he return to driving. 05/05/2017: Lipoma of right forearm 03/26/2022: Living will on file Comment: DPA: Refugio () 03/01/2008: Malignant neoplasm of prostate (HCC) Comment: 02/09 PATH: Left Lobe: GS 7 ( 3+4) in 1/4 cores Right Lobe : GS 6 ( 3 +) in 3/5 cores External Beam Radiotherapy -- Dr. Rishabh Yao, Renetta Landry follow 12/03/2002: Mixed hyperlipidemia 09/26/2019: Muscle pain, lumbar 04/18/2019: Neck pain 06/09/2018: NAIN (obstructive sleep apnea) Comment: Wearing CPAP, Per Neurology (Dr. Scott) 08/01/2019: Overactive bladder 07/2003: Rosacea 05/15/2017: S/P right coronary artery (RCA) stent placement 10/31/2022: 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 Previous Surgical History PAST SURGICAL HISTORY 02/11/2018: 2D ECHO (EXEP) Comment: EF=65%, mild jain dysf, mildly enlarged LA, 10/03/2020: 2D ECHO (EXEP) Comment: EF=65%, mild Jain dysfunction, 02/2002: COLONOSCOPY FLX DX W/COLLJ SPEC WHEN PFRMD Comment: Colonoscopy 09/14/2007: COLONOSCOPY FLX DX W/COLLJ SPEC WHEN PFRMD Comment: normal 07/23/2012: COLONOSCOPY FLX DX W/COLLJ SPEC WHEN PFRMD Comment: normal 07/28/2018: COLONOSCOPY FLX DX W/COLLJ SPEC WHEN PFRMD Comment: Colonoscopy, repeat 5 years 02/2002: ESOPHAGOGASTRODUODENOSCOPY TRANSORAL DIAGNOSTIC Comment: EGD 12/22/2002: ESOPHAGOGASTRODUODENOSCOPY TRANSORAL DIAGNOSTIC Comment: hiatal hernia, distal esophagitis 08/03/2015: ESOPHAGOGASTRODUODENOSCOPY TRANSORAL DIAGNOSTIC Comment: EGD 11/15/2015: ESOPHAGOGASTRODUODENOSCOPY TRANSORAL DIAGNOSTIC Comment: EGD 08/13/2020: ESOPHAGOGASTRODUODENOSCOPY TRANSORAL DIAGNOSTIC Comment: EGD 2013: HEART CATHETERIZATION Comment: Angioplasty, Promus stent to right coronary 10/03/2020: LEXISCAN STRESS TEST Comment: abnornal seeing Dr. Morton 2003: RPR UMBILICAL HRNA 5 YRS/> REDUCIBLE Family History FAMILY HISTORY Problem Relation Age of Onset Prostate Cancer Father Colon Cancer Father Dx in his 70s Heart Father Had heart issues per patient Heart Sister had bypass surgery (mid-40's) Heart Mother Had heart issues per patient Heart Brother had bypass surgery Patient Allergies ALLERGIES Allergen Reactions Zithromax [Azithrom* Itching Beta-Blockers (Beta* Unknown Lipitor [Atorvastat* Intolerance Viagra [Sildenafil] Unknown Zetia [Ezetimibe] Mental Status Change Current Medications Current Outpatient Medications on File Prior to Visit Medication Sig levoFLOXacin (LEVAQUIN) 750 mg tablet Take 750 mg by mouth once daily. QUEtiapine (SEROQUEL) 25 mg tablet Take 25 mg by mouth daily at bedtime. predniSONE (DELTASONE) 10 mg tablet Take 4 tabs daily for 3 days, then 2 tabs daily for 3 days, then 1 tab daily for 3 days with food. pravastatin (PRAVACHOL) 80 mg tablet Take 1 tablet by mouth daily at bedtime. aspirin, enteric coated (ECOTRIN LOW STRENGTH) 81 mg EC tablet Take 1 tablet by mouth once daily. memantine (NAMENDA) 10 mg tablet Take 1 tablet by mouth two times a day. donepezil (ARICEPT) 10 mg tablet Take 1 tablet by mouth daily at bedtime. amLODIPine (NORVASC) 10 mg tablet Take 1 tablet by mouth once daily. solifenacin (VESICARE) 5 mg tablet Take 1 tablet by mouth once daily. losartan (COZAAR) 100 mg tablet Take 1 tablet by mouth once daily. metoprolol succinate ER (TOPROL XL) 50 mg 24 hr tablet Take 1.5 tablets by mouth once daily. pantoprazole DR (PROTONIX) 40 mg tablet Take 1 tablet by mouth daily before breakfast. Take on empty stomach, 1/2 hr before meal. VITAMIN B COMPLEX-100 ORAL Take by mouth. ubidecarenone/vitamin E mixed (COQ10 SG 100 ORAL) Take by mouth. nitroglycerin sublingual (NITROSTAT) 0.4 mg SL tablet Dissolve 1 tablet under the tongue every 5 minutes as needed for chest pain. cholecalciferol (VITAMIN D3) 1,000 unit tab tablet Take 1,000 Units by mouth once daily. ASCORBIC ACID, VITAMIN C, ORAL Take by mouth. Cinnamon Bark 500 mg cap Take 1 capsule by mouth once daily. Blood Pressure Cuff - Home Use BLOOD PRESSURE CUFF FOR HOME USE. DAILY MULTIVITAMIN TAB Take one(1) tablet daily. No current facility-administered medications on file prior to visit. Social History Social History Tobacco Use Smoking status: Former Current packs/day: 0.00 Average packs/day: 2.5 packs/day for 25.0 years (62.5 ttl pk-yrs) Types: Cigarettes Start date: 10/05/1953 Quit date: 10/05/1978 Years since quittin.7 Smokeless tobacco: Never Tobacco comments: quit 1978 Vaping Use Vaping status: Never Used Substance Use Topics Alcohol use: No Drug use: No Review of Symptoms REVIEW OF SYSTEMS See HPI EXAM: BP 106/62 (BP Site: Left Arm, BP Position: Sitting, BP Cuff Size: Regular Adult) Pulse 73 Temp 36.8 C (98.2 F) Resp 14 Wt 94.8 kg (209 lb) SpO2 97% BMI 30.86 kg/m . Last 5 Encounter BP Readings: Date: BP: 06/15/2024 106/62 06/15/2024 118/70 05/12/2024 118/60 04/11/2024 120/72 03/04/2024 135/69 Last 5 Encounter Wt Readings: Date: Wt: 06/15/2024 94.8 kg (209 lb) 06/15/2024 94.8 kg (208 lb 15.9 oz) 05/12/2024 95.3 kg (210 lb) 04/11/2024 96.6 kg (213 lb) 03/04/2024 96.6 kg (213 lb) General Appearance: Well appearing, alert, in no acute distress, well-hydrated, well nourished.. Lungs: Lungs clear to auscultation. No wheezing, rhonchi, rales.. Heart: RRR without murmur, gallop, or rubs. No ectopy. Right upper extremity. Some erythema of the elbow and hand, mild swelling and very warm to touch. Health Maintenance List Covid-19 Vaccine(2022- season) due on 06/05/2024 Influenza Vaccine(1) due on 06/05/2024 RSV Vaccine(1 - 1-dose 60+ series) due on 04/11/2025 LDL Cholesterol due on 05/10/2025 Diabetes Screening due on 05/10/2027 DTaP,Tdap,Td Vaccine(3 - Td or Tdap) due on 04/09/2028 Spirometry Completed Advance Directive Discussion Completed Shingrix Vaccine Completed Pneumococcal Vaccine: 65+ Completed Colorectal Cancer Screening Discontinued Data reviewed A/P ASSESSMENT/PLAN: 1. Bacterial pneumonia - ICD9: 482.9, ICD10: J15.9 (primary diagnosis) - resolved. 2. Cellulitis of skin - ICD9: 682.9, ICD10: L03.90 - Begin treatment with Cefadroxil (Duricef) 500 mg twice a day for a week. - check CBC. Requested Prescriptions Signed Prescriptions Disp Refills cefADROxil (DURICEF) 500 mg capsule 14 capsule 0 Sig: Take 1 capsule by mouth two times a day for 7 days. F/u in a week. Adama Mendoza MD documented in this encounterMer[facility]09-11-[facility]24 Instructions* Patient Instructions* Jelena Lazar APRN.CNP - 06/15/2024 7:26 AM EDT Get lab completed Start prednisone taper, take with food in the morning. Monitor symptoms at home Watch for increased redness, swelling, or fever/chills. Follow up as needed. documented in this encounterMer[facility]09-11-2024 History of Present illness Narrative* Jelena Lazar APRN.CNP - 06/15/2024 7:00 AM EDT This is a 79 year old male who presents today with: Patient presents with: Acute Visit: right arm pain HISTORY OF PRESENT ILLNESS: Lory Johnson is a 79 year old male. Patient presents with: Acute Visit: right arm pain Patient of Dr. Mendoza here in the office for right arm pain. Pain started 5 days ago. Will not use the arm. No fevers. He was discharged from the hosptial for pneunomina, currently taking Levofloxacin 750 mg daily for 3 days. Started on Quetiapine 25 mg at [facility]. No fever or chills. 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 PAST MEDICAL HISTORY: PAST MEDICAL HISTORY 11/03/2013: 3-vessel CAD 11/08/2016: Abdominal aortic aneurysm (AAA) without rupture (HCC) Comment: US: 11/2016 2.6 x 2.4 x 2.0 cm, Repeat in a year US: 02/2018 Stable, 03/2019 US said no AAA, US 08/2020 no AAA no further studies needed. 08/16/2013: Actinic Keratoses (Premalignant AK's) 03/26/2022: Advance directive discussed with patient Comment: Discussed 03/2022 No date: Anemia 10/31/2022: Anterior dislocation of right shoulder 11/02/2013: CAD S/P percutaneous coronary angioplasty 06/30/2018: Chronic left shoulder pain 04/11/2024: CKD (chronic kidney disease) stage 3, GFR 30-59 ml/min ([facility]) 05/15/2016: Dementia without behavioral disturbance ([facility]) Comment: MMSE: 22 05/2016, MMSE: 06/2019, 23 12/01/2018: Elevated fasting blood sugar 10/23/2023: Emphysema lung ([facility]) 05/12/2006: Essential hypertension, benign 10/31/2016: Ex-smoker Comment: Started at age 15, up to 1 PPD quite at age 34 08/21/2009: Fam hx-ischem heart disease Comment: Sister, mother 06/09/2018: Family history of colon cancer in father 12/14/2018: GERD without esophagitis 02/16/2018: History of CVA (cerebrovascular accident) Comment: Right posterior internal capsule 08/16/2019: Impaired driving skills Comment: Per Occupational Therapy [facility] and IADL report patient not safe to drive nor should he return to driving. 05/05/2017: Lipoma of right forearm 03/26/2022: Living will on file Comment: DPA: Refugio () 03/01/2008: Malignant neoplasm of prostate ([facility]) Comment: 02/09 PATH: Left Lobe: GS 7 ( 3+4) in 1/4 cores Right Lobe : GS 6 ( 3 +) in 3/5 cores External Beam Radiotherapy -- Dr. Rishabh Yao, Renetta Landry follow 12/03/2002: Mixed hyperlipidemia 09/26/2019: Muscle pain, lumbar 04/18/2019: Neck pain 06/09/2018: NAIN (obstructive sleep apnea) Comment: Wearing CPAP, Per Neurology (Dr. Scott) 08/01/2019: Overactive bladder 07/2003: Rosacea 05/15/2017: S/P right coronary artery (RCA) stent placement 10/31/2022: 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 PAST SURGICAL HISTORY 02/11/2018: 2D ECHO (EXEP) Comment: EF=65%, mild jain dysf, mildly enlarged LA, 10/03/2020: 2D ECHO (EXEP) Comment: EF=65%, mild Jain dysfunction, 02/2002: COLONOSCOPY FLX DX W/COLLJ SPEC WHEN PFRMD Comment: Colonoscopy 09/14/2007: COLONOSCOPY FLX DX W/COLLJ SPEC WHEN PFRMD Comment: normal 07/23/2012: COLONOSCOPY FLX DX W/COLLJ SPEC WHEN PFRMD Comment: normal 07/28/2018: COLONOSCOPY FLX DX W/COLLJ SPEC WHEN PFRMD Comment: Colonoscopy, repeat 5 years 02/2002: ESOPHAGOGASTRODUODENOSCOPY TRANSORAL DIAGNOSTIC Comment: EGD 12/22/2002: ESOPHAGOGASTRODUODENOSCOPY TRANSORAL DIAGNOSTIC Comment: hiatal hernia, distal esophagitis 08/03/2015: ESOPHAGOGASTRODUODENOSCOPY TRANSORAL DIAGNOSTIC Comment: EGD 11/15/2015: ESOPHAGOGASTRODUODENOSCOPY TRANSORAL DIAGNOSTIC Comment: EGD 08/13/2020: ESOPHAGOGASTRODUODENOSCOPY TRANSORAL DIAGNOSTIC Comment: EGD 2013: HEART CATHETERIZATION Comment: Angioplasty, Promus stent to right coronary 10/03/2020: LEXISCAN STRESS TEST Comment: abnornal seeing Dr. Morton 2003: RPR UMBILICAL HRNA 5 YRS/> REDUCIBLE ALLERGIES Zithromax [Azithromycin], Beta-Blockers (Beta-Adrenergic Blocking Agts), Lipitor [Atorvastatin], Viagra [Sildenafil], and Zetia [Ezetimibe] MEDICATIONS Current Outpatient Medications Medication Sig pravastatin (PRAVACHOL) 80 mg tablet Take 1 tablet by mouth daily at bedtime. aspirin, enteric coated (ECOTRIN LOW STRENGTH) 81 mg EC tablet Take 1 tablet by mouth once daily. memantine (NAMENDA) 10 mg tablet Take 1 tablet by mouth two times a day. donepezil (ARICEPT) 10 mg tablet Take 1 tablet by mouth daily at bedtime. amLODIPine (NORVASC) 10 mg tablet Take 1 tablet by mouth once daily. solifenacin (VESICARE) 5 mg tablet Take 1 tablet by mouth once daily. losartan (COZAAR) 100 mg tablet Take 1 tablet by mouth once daily. metoprolol succinate ER (TOPROL XL) 50 mg 24 hr tablet Take 1.5 tablets by mouth once daily. pantoprazole DR (PROTONIX) 40 mg tablet Take 1 tablet by mouth daily before breakfast. Take on empty stomach, 1/2 hr before meal. VITAMIN B COMPLEX-100 ORAL Take by mouth. ubidecarenone/vitamin E mixed (COQ10 SG 100 ORAL) Take by mouth. nitroglycerin sublingual (NITROSTAT) 0.4 mg SL tablet Dissolve 1 tablet under the tongue every 5 minutes as needed for chest pain. cholecalciferol (VITAMIN D3) 1,000 unit tab tablet Take 1,000 Units by mouth once daily. ASCORBIC ACID, VITAMIN C, ORAL Take by mouth. Cinnamon Bark 500 mg cap Take 1 capsule by mouth once daily. Blood Pressure Cuff - Home Use BLOOD PRESSURE CUFF FOR HOME USE. DAILY MULTIVITAMIN TAB Take one(1) tablet daily. No current facility-administered medications for this visit. FAMILY HISTORY Problem Relation Age of Onset Prostate Cancer Father Colon Cancer Father Dx in his 70s Heart Father Had heart issues per patient Heart Sister had bypass surgery (mid-40's) Heart Mother Had heart issues per patient Heart Brother had bypass surgery Social History Tobacco Use Smoking status: Former Current packs/day: 0.00 Average packs/day: 2.5 packs/day for 25.0 years (62.5 ttl pk-yrs) Types: Cigarettes Start date: 10/05/1953 Quit date: 10/05/1978 Years since quittin.7 Smokeless tobacco: Never Tobacco comments: quit 1978 Vaping Use Vaping status: Never Used Substance Use Topics Alcohol use: No Drug use: No REVIEW OF SYSTEMS GENERAL: No weight loss, malaise or fevers/chills HEENT: Negative for frequent or significant headaches, No changes in hearing or vision. NECK: Negative for lumps, goiter, pain and significant neck swelling RESPIRATORY: Negative for cough, hemoptysis, wheezing, dyspnea or shortness of breath CARDIOVASCULAR: Negative for chest pain, leg swelling, orthopnea, or palpitations GI: No nausea, vomiting, or diarrhea/constipation. No hematochezia/melena. No heartburn or reflux symptoms. : No history of dysuria, frequency or incontinence MUSCULOSKELETAL: + Right Arm Pain SKIN: Negative for lesions, rash, and itching ENDOCRINE: Negative for cold or heat intolerance, polyuria, polydipsia and goiter NEURO: No history of headaches, syncope, paralysis, seizures or tremors MOOD: Negative for depression, anxiety, or suicidal ideation. EXAM: BP 118/70 Pulse 75 Resp 16 Wt 94.8 kg (208 lb 15.9 oz) SpO2 97% BMI 30.86 kg/m PHYSICAL EXAM: General Appearance: Well appearing, alert, in no acute distress, well-hydrated, well nourished. Head: Normocephalic, no masses, lesions, tenderness or abnormalities. Eyes: Anicteric sclera. Extraocular movements are intact. Lungs: Lungs clear to auscultation. No wheezing, rhonchi, rales. Heart: RRR without murmur, gallop, or rubs. No ectopy. Extremities: No deformities, edema, skin discoloration, clubbing or cyanosis. Good capillary refill. Musculoskeletal: Right elbow,full ROM, erythematic, warm to touch, edema noted. Peripheral Pulses: Normal, Capillary refill <2secs, strong peripheral pulses, Pulses palpable. Neurologic: Gait normal. Sensation grossly intact. ASSESSMENT/PLAN: 1. Acute gout of right elbow, unspecified cause - ICD9: 274.01, ICD10: M10.9 - Concerns for Gout - Get lab completed - Start prednisone taper - Watch for worsening symptoms - URIC ACID - PREDNISONE 10 MG TABLET Follow-up if no improvement. Discussed treatment plan and patient voices understanding. Patient's questions answered appropriately. Medications and potential side effects were discussed and patient voices understanding. Jelena Lazar APRN.RACHELLE This note was partially generated using Pushfor voice recognition system. Note was reviewed for accuracy. There may be minor misspellings or grammar miscues with Pushfor voice recognition. documented in this encounterMer[facility]09-11-2024 Telephone encounter Note * Telephone Encounter - Shira Manning RN - 06/15/2024 6:31 AM EDT Reason for call: calling to double check address to appointment location for patient for 6:45 am appointment. States they are at a building in [place] but unsure if it is the correct building. Outcome: Address to [facility] provided. [facility]09-11-[facility]24 Miscellaneous Notes* Telephone Encounter - Shira Manning RN - 06/15/2024 6:31 AM EDT Reason for call: calling to double check address to appointment location for patient for 6:45 am appointment. States they are at a building in [place] but unsure if it is the correct building. Outcome: Address to [facility] provided. documented in this encounterMer[facility]09-05-2024 History of Present illness Narrative* [place] LPN - 06/09/2024 7:01 AM EDT Scan on 06/08/2024 11:11 PM by Provider, Brandie, ISABELLE: Consultation - Emergency Medicine documented in this encounterMercy [facility]09-04-2024 Telephone encounter Note * Telephone Encounter - Adama Mendoza MD - 06/08/2024 7:27 PM EDT Noted and agree. [facility]09-04-[facility]24 Miscellaneous Notes* Telephone Encounter - Adama Mendoza MD - 06/08/2024 7:27 PM EDT Noted and agree. * Telephone Encounter - Roula Brown RN - 06/08/2024 2:53 PM EDT Spouse Refugio calling in again. States she was just outside with patient and he doesn't seem himself. Seems out of it. Gazing off. Only has spoke about 6 words today. Continues with urinary incontinence. Spouse voices concern for CVA. ER advised by this nurse. agreeable. Roula Brown RN * Telephone Encounter - Andres Avery RN - 06/08/2024 2:28 PM EDT reports patient was incontinent of urine once last week, and twice this week. Reports it leaves such a mess. Reports patient is taking a pill that keeps him from urinating at bedtime and during sleep. Her concern is she takes patient somewhere every day. Sometimes they walk downtown. Now is afraid he will be incontinent of urine during these outings. Asking if there is a pill he can take to keep him from having incontinence during the daytime hours? Reports patient has dementia and she wants to keep him at home as long as she can. They will celebrate their 50 anniversary in 3 years. States she wants to keep taking him out for walks and out to eat, or go downtown for the activities down there. Reports she is using pull ups, and will put plastic on their bed with waterproof pads on top. Just wants to know if there is anything pcp knows of to help with the incontinence problem? States she will bring patient in if pcp needs to see him. Patient's next appt with pcp is 10-17-24. documented in this encounterMer[facility]09-04-2024 Telephone encounter Note * Telephone Encounter - Roula Brown RN - 06/08/2024 2:53 PM EDT Spouse Refugio calling in again. States she was just outside with patient and he doesn't seem himself. Seems out of it. Gazing off. Only has spoke about 6 words today. Continues with urinary incontinence. Spouse voices concern for CVA. ER advised by this nurse. agreeable. Roula Brown RN [facility]09-04-[facility]24 Telephone encounter Note* Telephone Encounter - Andres Avery RN - 06/08/2024 2:28 PM EDT reports patient was incontinent of urine once last week, and twice this week. Reports it leaves such a mess. Reports patient is taking a pill that keeps him from urinating at bedtime and during sleep. Her concern is she takes patient somewhere every day. Sometimes they walk downtown. Now is afraid he will be incontinent of urine during these outings. Asking if there is a pill he can take to keep him from having incontinence during the daytime hours? Reports patient has dementia and she wants to keep him at home as long as she can. They will celebrate their 50 anniversary in 3 years. States she wants to keep taking him out for walks and out to eat, or go downtown for the activities down there. Reports she is using pull ups, and will put plastic on their bed with waterproof pads on top. Just wants to know if there is anything pcp knows of to help with the incontinence problem? States she will bring patient in if pcp needs to see him. Patient's next appt with pcp is 10-17-24. [facility] Telephone encounter Note* Telephone Encounter - Cassia Burt RN - 05/12/2024 2:50 PM EDT Spoke with patient. Given message from provider's office. Patient verbalizes understanding. Cassia Burt RN [facility]08-08-2024 Miscellaneous Notes* Telephone Encounter - Cassia Burt RN - 05/12/2024 2:50 PM EDT Spoke with patient. Given message from provider's office. Patient verbalizes understanding. Cassia Burt RN * Telephone Encounter - Dedra Ayala MA - 05/12/2024 2:49 PM EDT Message left for pt to call back for results. Dedra Ayala MA * Telephone Encounter - Danita Meraz PA-C - 05/12/2024 2:38 PM EDT Let patient know that kidney function has improved. Back to his baseline. documented in this encounterMercy [facility]08-08-2024 Telephone encounter Note * Telephone Encounter - Dedra Ayala MA - 05/12/2024 2:49 PM EDT Message left for pt to call back for results. Dedra Ayala MA [facility]08-08-[facility] Telephone encounter Note* Telephone Encounter - Danita Meraz PA-C - 05/12/2024 2:38 PM EDT Let patient know that kidney function has improved. Back to his baseline. [facility] History of Present illness Narrative* Stephany Suarez MD - 05/12/2024 2:15 PM EDT Images from the original note were not included. . [facility] Note Patient name: Lory Johnson PCP: Adama Mendoza MD CC: Follow-up COPD HPI: Lory Johnson 79 year old male former > 60 pack year smoker, quitting in 1978 with PMHsignificant for AAA, CAD s/p stent, HTN, GERD, CVA, HLD, dementia, prostate cancer s/p XRT, NAIN on CPAP recently seen for calcifications on chest CT. Chest imaging shows emphysema pleural plaques consistent with asbestosis. Ordered PFTs and oxygen assessment. No oxygen need and PFTs show moderate obstruction. Started Anoro Ellipta. Today states that she is not certain he is actually getting the full dose of his inhaled medication as he sometimes cannot follow commands due to his dementia. He denies any significant shortness of breath coughing or chest pain. She has not noted that he is st ruggling to breathe when they are out on their daily walk nor has she noted any wheezing. He has not recently been ill with any upper respiratory infection quired hospitalization. Chest CT findings consistent with asbestos exposure. DATA: Oximetry with Ambulation Test for This Encounter O2 Device O2 Adapter NC O2 Flow SpO2% HR Activity Ft Walked (ft) Time (min) Avg Speed (MPH) R/A 98 57 Resting R/A 93 69 Walking, usual pace 405 3 1.53 R/A 92 71 Walking, fastest pace 525 3 1.99 General Information Pulse Oximetry Site Total Time Spent Walking Assistance/O2 Supply Carrier L Index Finger 30 None NAME: DEBRA Candelario PATIENT NAME: Lory Johnson DATE: December 15, 2023 TIME: 10:03 AM PFT 12/2023: Pulmonary function test show moderate obstruction with improvement in mid flows postbronchodilator,moderate restriction and normal diffusing capacity PAST MEDICAL HISTORY 11/03/2013: 3-vessel CAD 11/08/2016: Abdominal aortic aneurysm (AAA) without rupture (HCC) Comment: US: 11/2016 2.6 x 2.4 x 2.0 cm, Repeat in a year US: 02/2018 Stable, 03/2019 US said no AAA, US 08/2020 no AAA no further studies needed. 08/16/2013: Actinic Keratoses (Premalignant AK's) 03/26/2022: Advance directive discussed with patient Comment: Discussed 03/2022 No date: Anemia 10/31/2022: Anterior dislocation of right shoulder 11/02/2013: CAD S/P percutaneous coronary angioplasty 06/30/2018: Chronic left shoulder pain 04/11/2024: CKD (chronic kidney disease) stage 3, GFR 30-59 ml/min ([facility]) 05/15/2016: Dementia without behavioral disturbance ([facility]) Comment: MMSE: 22 05/2016, MMSE: 06/2019, 23 12/01/2018: Elevated fasting blood sugar 10/23/2023: Emphysema lung (HCC) 05/12/2006: Essential hypertension, benign 10/31/2016: Ex-smoker Comment: Started at age 15, up to 1 PPD quite at age 34 08/21/2009: Fam hx-ischem heart disease Comment: Sister, mother 06/09/2018: Family history of colon cancer in father 12/14/2018: GERD without esophagitis 02/16/2018: History of CVA (cerebrovascular accident) Comment: Right posterior internal capsule 08/16/2019: Impaired driving skills Comment: Per Occupational Therapy Community Mobility and IADL report patient not safe to drive nor should he return to driving. 05/05/2017: Lipoma of right forearm 03/26/2022: Living will on file Comment: DPA: Refugio () 03/01/2008: Malignant neoplasm of prostate (HCC) Comment: 02/09 PATH: Left Lobe: GS 7 ( 3+4) in 1/4 cores Right Lobe : GS 6 ( 3 +) in 3/5 cores External Beam Radiotherapy -- Dr. Rishabh Yao, Renetta Landry follow 12/03/2002: Mixed hyperlipidemia 09/26/2019: Muscle pain, lumbar 04/18/2019: Neck pain 06/09/2018: NAIN (obstructive sleep apnea) Comment: Wearing CPAP, Per Neurology (Dr. Scott) 08/01/2019: Overactive bladder 07/2003: Rosacea 05/15/2017: S/P right coronary artery (RCA) stent placement 10/31/2022: 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 ALLERGIES Allergen Reactions Zithromax [Azithrom* Itching Beta-Blockers (Beta* Unknown Lipitor [Atorvastat* Intolerance Viagra [Sildenafil] Unknown Zetia [Ezetimibe] Mental Status Change pravastatin (PRAVACHOL) 80 mg tablet Take 1 tablet by mouth daily at bedtime. aspirin, enteric coated (ECOTRIN LOW STRENGTH) 81 mg EC tablet Take 1 tablet by mouth once daily. memantine (NAMENDA) 10 mg tablet Take 1 tablet by mouth two times a day. donepezil (ARICEPT) 10 mg tablet Take 1 tablet by mouth daily at bedtime. amLODIPine (NORVASC) 10 mg tablet Take 1 tablet by mouth once daily. solifenacin (VESICARE) 5 mg tablet Take 1 tablet by mouth once daily. losartan (COZAAR) 100 mg tablet Take 1 tablet by mouth once daily. metoprolol succinate ER (TOPROL XL) 50 mg 24 hr tablet Take 1.5 tablets by mouth once daily. pantoprazole DR (PROTONIX) 40 mg tablet Take 1 tablet by mouth daily before breakfast. Take on empty stomach, 1/2 hr before meal. VITAMIN B COMPLEX-100 ORAL Take by mouth. ubidecarenone/vitamin E mixed (COQ10 SG 100 ORAL) Take by mouth. nitroglycerin sublingual (NITROSTAT) 0.4 mg SL tablet Dissolve 1 tablet under the tongue every 5 minutes as needed for chest pain. cholecalciferol (VITAMIN D3) 1,000 unit tab tablet Take 1,000 Units by mouth once daily. ASCORBIC ACID, VITAMIN C, ORAL Take by mouth. Cinnamon Bark 500 mg cap Take 1 capsule by mouth once daily. Blood Pressure Cuff - Home Use BLOOD PRESSURE CUFF FOR HOME USE. DAILY MULTIVITAMIN TAB Take one(1) tablet daily. Social History Tobacco Use Smoking status: Former Packs/day: 2.50 Years: 25.00 Additional pack years: 0.00 Total pack years: 62.50 Types: Cigarettes Quit date: 10/05/1978 Years since quittin.6 Smokeless tobacco: Never Tobacco comments: quit 1978 Vaping Use Vaping Use: Never used Substance Use Topics Alcohol use: No Drug use: No PMH, Social history, family history and surgical history reviewed and updated in EMR REVIEW OF SYSTEMS: CONSTITUTIONAL: No fevers, chills, nightsweats, unintended weight loss HEENT: Denies nasal congestion/sinus symptoms, allergy problems. CARDIOVASCULAR: No chest pain, dyspnea, palpitations, orthopnea, PND, edema. PULM: See HPI NEURO: No balance problems, peripheral weakness/paresthesias or numbness of concern. PHYSICAL EXAMINATION: BP 118/60 Pulse 57 Resp 14 Wt 210 lb (95.3kg) SpO2 95% General Appearance: Age-appropriate male, NAD. Skin: Skin color, texture, turgor normal, no suspicious rashes or lesions. Head: Normocephalic, no masses, lesions, tenderness or abnormalities. Eyes: Sclera, conjunctiva normal. Oropharynx: No oral lesions. Neck: No JVD, no masses, no adenopathy. Lungs: Not labored, normal to percussion, no wheezes or crackles. Heart: Regular rate and rhythm, no murmurs or gallops. Extremities: No edema or clubbing. Assessment/Plan: 1. Moderate COPD -Unable to coordinate use of Anoro Ellipta. Patient asymptomatic at this time -He can discontinue the Anora Ellipta. If notes exercise limitation, persistent wheezing would recommend treatments for ease of administration - declining follow-up at this time 2. Asbestosis -Typical findings of asbestos exposure on CT which places him at risk for development of lung cancer -There are no set guidelines for cancer screening with asbestos exposure but would recommend yearlychest CT 3. Former cigarette smoker -Former heavy smoker with sequelae of emphysema -Does not meet criteria for lung cancer screening based on age and duration of smoking cessation Stephany Suarez MD [facility] History of Present illness Narrative* Judith Vanegas MA - 05/04/2024 2:34 PM EDT Scan on 04/28/2024 2:25 PM by Provider, ISABELLE Diego: Consultation - Cardiology Judith Vanegas MA documented in this encounterMer[facility]24 Instructions* Patient Instructions* Adama Mendoza MD - 04/11/2024 2:00 PM EDT Consider getting the RSV vaccine from local pharmacy late May or early Jun. Please get non-fasting kidney lab on or after 05/12/2024 Please get labs and urine test done on or after 09/30/2024 prior to your next visit. Screening schedule The following prevention plan is recommended: RSV Vaccine(1 - 1-dose 60+ series) Never done Advance Directive Discussion due on 10/05/2023 Covid-19 Vaccine(2022- season) due on 11/14/2023 WHAT YOU CAN DO TO PREVENT FALLS Many falls can be prevented. By making some changes, you can lower your chances of falling. Four things YOU can do to prevent falls for you* and your caregiver 1. Begin a regular exercise program Exercise is one of the most important ways to lower your chances of falling. It makes you stronger and helps you feel better. Exercises that improve balance and coordination (like Brent Chi) are the most helpful. Lack of exercise leads to weakness and increases your chances of falling. Ask your doctor or health care provider about the best type of exercise program for you. 2. Have your health care provider review your medicines Have your doctor or pharmacist review all the medicines you take, even [id number] medicines. As you get older, the way medicines work in your body can change. Some medicines, or combinations of medicines, can make you sleepy or dizzy andcan cause you to fall. 3. Have your vision checked Have your eyes checked by an eye doctor at least once a year. You may be wearing the wrong glasses or have a condition like glaucoma or cataracts that limits your vision. Poor vision can increase your chances of falling. 4. Make your home safer About half of all falls happen at home. To make your home safer: Remove things you can trip over (like papers, books, clothes, and shoes) from stairs and places where you walk. Remove small throw rugs or use double-sided tape to keep the rugs from slipping. Keep items you use often in cabinets you can reach easily without using a step stool. Have grab bars put in next to your toilet and in the tub or shower. Use non-slip mats in the bathtub and on shower floors. Improve the lighting in your home. As you get older, you need brighter lights to see well. Hang light-weight curtains or shades to reduce glare. Have handrails and lights put in on all staircases. Wear shoes both inside and outside the house. Avoid going barefoot or wearing slippers. For more information, contact: Centers for Disease Control and Prevention www.cdc.gov/injury * This information may not apply if you have certain medical conditions. documented in this encounterMer[facility]07-[facility] History of Present illness Narrative* Adama Mendoza MD - 04/11/2024 1:41 PM EDT Images from the original note were not included. Lory Johnson is a 79 year old male here for a Medicare wellness visit. Medicare Health Risk Assessment General Health Very good Exercise: Minutes/Day 30 min Exercise: Days/Week 2 days Alcohol: Daily Use Never Alcohol: Drinks/Day Patient does not drink Alcohol: 6 or more drinks Never Feel off balance No Concerns: Teeth/Dentures No Concerns: Sexual function No Troubled by feelings Lonely; Anxious; Stressed Frequency: Eating healthy diet Nearly every day ADLs requiring help Grocery shopping; Cooking; Housework; Dressing; Eating; Sitting or standing; Walking; Using the toilet; Managing urine leakage Safety precautions in home/vehicle No Smoke, vape, chews tobacco No Difficulty hearing No Difficulty seeing No Current Providers Specialists: I have reviewed specialist-related care of the patient in the medical record. Current care team: Patient Care Team: Adama Mendoza MD as PCP - General (Family Medicine) Dr. Morton: Cardio Dr. Kitchen: Neuro Dr. Zachery Suarez: Pulm Medical/Family history review Reviewed and updated problem list, medical/surgical/family/social history, medications, and allergies. Opioid use review Opioid Medications (last 90 days) No data to display Anxiety/Depression screening PHQ-2 Score: 0 (Lower risk for depression) Recommendation: no further intervention at this time Cognitive screening Cognitive screening reviewed and Patient has known cognitive impairment. Functional Observation Was the patient's Timed Up & Go test unsteady or ? 12 seconds? No Advance Care Planning Surrogate decision maker documented and/or advance directives scanned in chart Measurements BP 120/72 Pulse 60 Resp 18 Ht 5' 9 (1.75m) Wt 213 lb (96.6kg) BMI 31.44 kg/(m^2). Vision Screening: Follows with optometry/ophthalmology Assessment/Plan Medicare annual wellness visit, subsequent (Z00.00) - Counseled on healthy diet and regular exercise - Fall avoidance information provided - Personalized prevention plan provided See Below Chief Complaint Patient presents with: Medicare Wellness Exam HPI Lory Johnson is a 79 year old male who presents here today for Chronic Medical Conditions. and Medicare Annual Visit. Patient with Hx of HTN, elevated fasting blood sugar, CAD, GERD, NAIN, hyperlipidemia, dementia, Hx of prostate cancer, Hx of CVA, as well as those reviewed and addressed below and in ROS. Past medical history, appointments, medications, allergies reviewed. Previous Medical History PAST MEDICAL HISTORY Diagnosis Date 3-vessel CAD 11/03/2013 Abdominal aortic aneurysm (AAA) without rupture (HCC) 11/08/2016 US: 11/2016 2.6 x 2.4 x 2.0 cm, Repeat in a year US: 02/2018 Stable, 03/2019 US said no AAA, US 08/2020 no AAA no further studies needed. Actinic Keratoses (Premalignant AK's) 08/16/2013 Advance directive discussed with patient 03/26/2022 Discussed 03/2022 Anemia CAD S/P percutaneous coronary angioplasty 11/02/2013 Chronic left shoulder pain 06/30/2018 Dementia without behavioral disturbance (HCC) 05/15/2016 MMSE: 22 05/2016, MMSE: 06/2019, 23 Elevated fasting blood sugar 12/01/2018 Essential hypertension, benign 05/12/2006 Ex-smoker 10/31/2016 Started at age 15, up to 1 PPD quite at age 34 Fam hx-ischem heart disease 08/21/2009 Sister, mother Family history of colon cancer in father 06/09/2018 GERD without esophagitis 12/14/2018 History of CVA (cerebrovascular accident) 02/16/2018 Right posterior internal capsule Impaired driving skills 08/16/2019 Per Occupational Therapy Community Mob[facility] and IADL report patient not safe to drive nor should hereturn to driving. Lipoma of right forearm 05/05/2017 Living will on file 03/26/2022 DPA: Refugio () Malignant neoplasm of prostate (HCC) 03/01/200802/09 PATH: Left Lobe: GS 7 ( 3+4) in 1/4 cores Right Lobe : GS 6 ( 3 +) in 3/5 cores External Beam Radiotherapy -- Dr. Rishabh Yao, Renetta Landry follow Mixed hyperlipidemia 12/03/2002 Muscle pain, lumbar 09/26/2019 Neck pain 04/18/2019 NAIN (obstructive sleep apnea) 06/09/2018 Wearing CPAP, Per Neurology (Dr. Scott) Overactive bladder 08/01/2019 Rosacea 07/2003 S/P right coronary artery (RCA) stent placement 05/15/2017 Previous Surgical History PAST SURGICAL HISTORY Procedure Laterality Date 2D ECHO (EXEP) 02/11/2018 EF=65%, mild jain dysf, mildly enlarged LA, 2D ECHO (EXEP) 10/03/2020 EF=65%, mild Jain dysfunction, COLONOSCOPY FLX DX W/COLLJ SPEC WHEN PFRMD 02/2002 Colonoscopy COLONOSCOPY FLX DX W/COLLJ SPEC WHEN PFRMD 09/14/2007 normal COLONOSCOPY FLX DX W/COLLJ SPEC WHEN PFRMD 07/23/2012 normal COLONOSCOPY FLX DX W/COLLJ SPEC WHEN PFRMD 07/28/2018 Colonoscopy, repeat 5 years ESOPHAGOGASTRODUODENOSCOPY TRANSORAL DIAGNOSTIC 02/2002 EGD ESOPHAGOGASTRODUODENOSCOPY TRANSORAL DIAGNOSTIC 12/22/2002 hiatal hernia, distal esophagitis ESOPHAGOGASTRODUODENOSCOPY TRANSORAL DIAGNOSTIC 08/03/2015 EGD ESOPHAGOGASTRODUODENOSCOPY TRANSORAL DIAGNOSTIC 11/15/2015 EGD ESOPHAGOGASTRODUODENOSCOPY TRANSORAL DIAGNOSTIC 08/13/2020 EGD HEART CATHETERIZATION 2013 Angioplasty, Promus stent to right coronary LEXISCAN STRESS TEST 10/03/[address] Morton RPR UMBILICAL HRNA 5 YRS/> REDUCIBLE 2002 Family History FAMILY HISTORY Problem Relation Age of Onset Prostate Cancer Father Colon Cancer Father Dx in his 70s Heart Father Had heart issues per patient Heart Sister had bypass surgery (mid-40's) Heart Mother Had heart issues per patient Heart Brother had bypass surgery Patient Allergies ALLERGIES Allergen Reactions Zithromax [Azithrom* Itching Beta-Blockers (Beta* Unknown Lipitor [Atorvastat* Intolerance Viagra [Sildenafil] Unknown Zetia [Ezetimibe] Mental Status Change Current Medications Current Outpatient Medications on File Prior to Visit Medication Sig aspirin, enteric coated (ECOTRIN LOW STRENGTH) 81 mg EC tablet Take 1 tablet by mouth once daily. pravastatin (PRAVACHOL) 80 mg tablet Take 1 tablet by mouth once daily. memantine (NAMENDA) 10 mg tablet Take 1 tablet by mouth two times a day. donepezil (ARICEPT) 10 mg tablet Take 1 tablet by mouth daily at bedtime. amLODIPine (NORVASC) 10 mg tablet Take 1 tablet by mouth once daily. solifenacin (VESICARE) 5 mg tablet Take 1 tablet by mouth once daily. losartan (COZAAR) 100 mg tablet Take 1 tablet by mouth once daily. metoprolol succinate ER (TOPROL XL) 50 mg 24 hr tablet Take 1.5 tablets by mouth once daily. pantoprazole (PROTONIX) 40 mg tablet Take 1 tablet by mouth daily before breakfast. Take on empty stomach, 1/2 hr before meal. umeclidinium-vilanterol (ANORO ELLIPTA) 62.5-25 mcg/actuation inhaler Inhale 1 Inhalation as instructed once daily. VITAMIN B COMPLEX-100 ORAL Take by mouth. ubidecarenone/vitamin E mixed (COQ10 SG 100 ORAL) Take by mouth. nitroglycerin sublingual (NITROSTAT) 0.4 mg SL tablet Dissolve 1 tablet under the tongue every 5 minutes as needed for chest pain. cholecalciferol (VITAMIN D3) 1,000 unit tab tablet Take 1,000 Units by mouth once daily. ASCORBIC ACID, VITAMIN C, ORAL Take by mouth. Cinnamon Bark 500 mg cap Take 1 capsule by mouth once daily. Blood Pressure Cuff - Home Use BLOOD PRESSURE CUFF FOR HOME USE. DAILY MULTIVITAMIN TAB Take one(1) tablet daily. MELATONIN ORAL Take by mouth. (Patient not taking: Reported on 01/22/2024) No current facility-administered medications on file prior to visit. Social History Social History Tobacco Use Smoking status: Former Packs/day: 2.50 Years: 25.00 Additional pack years: 0.00 Total pack years: 62.50 Types: Cigarettes Quit date: 10/05/1978 Years since quittin.5 Smokeless tobacco: Never Tobacco comments: quit 1978 Vaping Use Vaping Use: Never used Substance Use Topics Alcohol use: No Drug use: No Review of Symptoms REVIEW OF SYSTEMS GENERAL: No weight loss, malaise or fevers HEENT: Negative for frequent or significant headaches, No changes in hearing or vision, no nose bleeds or other nasal problems NECK: Negative for lumps, goiter, pain and significant neck swelling RESPIRATORY: Negative for cough, hemoptysis, wheezing, COPD, dyspnea or shortness of breath CARDIOVASCULAR: Negative for chest pain, leg swelling, hypertension, CHF or palpitations GI: No nausea, vomiting, or diarrhea, No heartburn or reflux symptoms, and blood : No history of dysuria, blood MUSCULOSKELETAL: Negative for new or changes in his typical joint pain or swelling, back pain or muscle pain SKIN: Negative for lesions, rash, and itching PSYCH: Negative for sleep disturbance, mood disorder and recent psychosocial stressors HEMATOLOGY/LYMPHOLOGY: Negative for prolonged bleeding, bruising easily or swollen nodes ENDOCRINE: Negative for cold or heat intolerance, polyuria, polydipsia and goiter NEURO: No history of headaches, syncope, paralysis, seizures or tremors EXAM: BP 120/72 (BP Site: Right Arm, BP Position: Sitting, BP Cuff Size: Regular Adult) Pulse 60 Resp18 Ht 175.3 cm (5' 9) Wt 96.6 kg (213 lb) BMI 31.45 kg/m Last 6 Encounter Wt Readings: Date: Wt: 04/11/2024 96.6 kg (213 lb) 03/04/2024 96.6 kg (213 lb) 03/04/2024 96.4 kg (212 lb 9.6 oz) 01/22/2024 97 kg (213 lb 15.3 oz) 12/15/2023 95.7 kg (211 lb) 12/08/2023 95.3 kg (210 lb) General Appearance: Well appearing, alert, in no acute distress, well-hydrated, well nourished. andObese. Skin: Skin color, texture, turgor normal, no suspicious rashes or lesions. Head: Normocephalic, no masses, lesions, tenderness or abnormalities. Eyes: Anicteric sclera. Pupils are equally round and reactive to light. Extraocular movements are intact. . Ears: External ears, Canals normal, canals clear. Nose/Sinuses: Nares normal, septum midline, mucosa normal, no drainage or sinus tenderness. Oropharynx: Lips, mucosa, and tongue normal, teeth and gums normal, oropharynx normal. Neck: Supple, no adenopathy; thyroid symmetric, normal size, no bruits. Lungs: Lungs clear to auscultation. No wheezing, rhonchi, rales.. Heart: RRR without murmur, gallop, or rubs. No ectopy. Abdomen: Normal abdominal exam, Abdomen soft, non-tender. Bowel sounds normal. No masses, organomegaly. Extremities: No deformities, edema, skin discoloration, Good capillary refill. . Musculoskeletal: Muscular strength intact, No joint swelling, deformity, or tenderness. Peripheral Pulses: Normal. Neurologic: Gait normal. Reflexes normal and symmetric. Sensation to light touch and crainal nerves2-12 intact.. Genitalia: declined today.. Health Maintenance List RSV Vaccine(1 - 1-dose 60+ series) Never done Advance Directive Discussion due on 10/05/2023 Covid-19 Vaccine( season) due on 11/14/2023 Influenza Vaccine(1) due on 06/05/2024 LDL Cholesterol due on 04/04/2025 Diabetes Screening due on 04/08/2027 DTaP,Tdap,Td Vaccine(3 - Td or Tdap) due on 04/09/2028 Spirometry Completed Shingrix Vaccine Completed Pneumococcal Vaccine: 65+ Completed Colorectal Cancer Screening Discontinued Data reviewed Latest Ref Rng 04/30/2023 05/01/2023 06/23/2023 10/08/2023 04/04/2024 04/08/2024 WBC 3.70 - 11.00 k/uL 8.49 11.33 (H) RBC 4.20 - 6.00 m/uL 4.94 4.87 Hemoglobin 13.0 - 17.0 g/dL 14.7 14.1 Hematocrit 39.0 - 51.0 % 43.9 44.6 MCV 80.0 - 100.0 fL 88.9 91.6 MCH 26.0 - 34.0 pg 29.8 29.0 MCHC 30.5 - 36.0 g/dL 33.5 31.6 RDW-CV 11.5 - 15.0 % 12.9 13.4 Platelet Count 150 - 400 k/uL 240 220 MPV 9.0 - 12.7 fL 10.4 10.7 Neut% % 60.2 61.3 Abs Neut (ANC) 1.45 - 7.50 k/uL 5.11 6.94 Lymph% % 24.5 23.5 Abs Lymph 1.00 - 4.00 k/uL 2.08 2.66 [place]% % 11.3 12.4 Abs [place] <0.87 k/uL 0.96 (H) 1.41 (H) Eosin% % 3.3 2.1 Abs Eosin <0.46 k/uL 0.28 0.24 Baso% % 0.5 0.5 Abs Baso <0.11 k/uL 0.04 0.06 Immature Gran % % 0.2 0.2 IMMATURE GRANS (ABS) <0.10 k/uL <0.03 <0.03 NRBC /100 WBC 0.0 0.0 Absolute nRBC <0.01 k/uL <0.01 <0.01 DTYPE Auto Auto Color Yellow Yellow Dark Yellow ! Clarity Clear Clear Clear Glucose, Urine Negative Negative Negative Bilirubin, Urine Negative Negative Negative Ketones, Urine Negative Negative Negative Specific [place], Ur 1.005 - 1.030 1.024 1.012 Hemoglobin/Blood,Ur Negative Negative Negative pH, Urine <8.5 6.0 6.0 Protein, Urine Negative Trace 1+ ! Urobilinogen 0.2-1.0 EU/dL Negative 0.2 EU/dL Nitrites Negative Negative Negative Leukest Negative Negative Negative WBC, Urine 0-5 /HPF 0-5 /HPF 0-5 /HPF RBC, Urine 0-2 /HPF 0-3 /HPF 0-2 /HPF Bacteria Negative /HPF Negative Epithelial Cells /HPF Few None Seen Hyaline Cast 0 /LPF 4-10 /LPF ! Calcium Oxalate Crystals None Seen /HPF Few ! Protein, Total 6.3 - 8.0 g/dL 7.0 7.2 7.4 Albumin 3.9 - 4.9 g/dL 4.2 3.6 (L) 3.8 (L) Calcium 8.5 - 10.2 mg/dL 9.6 9.3 9.7 9.2 9.6 Bilirubin, Total 0.2 - 1.3 mg/dL 0.4 0.4 0.3 Alkaline Phosphatase 38 - 113 U/L 85 69 83 AST 14 - 40 U/L 22 28 20 ALT 10 - 54 U/L 25 28 18 Glucose 74 - 99 mg/dL 85 114 (H) 110 (H) 98 96 BUN 9 - 24 mg/dL 14 16 13 21 19 Creatinine 0.73 - 1.22 mg/dL 1.29 (H) 1.20 1.24 (H) 2.43 (H) 1.67 (H) Sodium 136 - 144 mmol/L 141 142 142 143 142 Potassium 3.7 - 5.1 mmol/L 4.1 3.7 4.1 4.2 4.0 Chloride 98 - 107 mmol/L 105 108 (H) 106 (H) 106 106 CO2 22 - 30 mmol/L 24 21 (L) 25 25 24 Anion Gap 8 - 15 mmol/L 12 13 11 12 12 eGFR >=60 mL/min/1.73m 56 (L) 61 59 (L) 26 (L) 41 (L) Total Cholesterol, Nonfasting <200 mg/dL 164 177 Triglycerides, Nonfasting <150 mg/dL 151 (H) 192 (H) HDL Cholesterol, Nonfasting >39 mg/dL 37 (L) 32 (L) LDL Cholesterol, Nonfasting <100 mg/dL 97 107 (H) Non HDL Cholesterol, Nonfasting <130 mg/dL 127 145 (H) VLDL Cholesterol, Nonfasting <30 mg/dL 30 (H) 38 (H) Total Chol/HDL Ratio, Nonfasting <5.10 mg/dL 4.43 5.53 (H) LDL/HDL Ratio, Nonfasting <2.54 mg/dL 2.62 (H) 3.34 (H) Hemoglobin A1C 4.3 - 5.6 % 5.3 5.4 Estimated Average Glucose mg/dL 105 108 PSA <2.60 ng/mL 0.18 TSH 0.270 - 4.200 mIU/L 3.260 Legend: (H) High (L) Low ! Abnormal A/P ASSESSMENT/PLAN: 1. Medicare annual wellness visit, subsequent - ICD9: V70.0, ICD10: Z00.00 (primary diagnosis) - Counseled on healthy diet and regular exercise - Discussed need for and benefit of weight loss. BMI 31.45 kg/(m^2) - Follow up for annual exam in one year - Advised on RSV vaccine. 2. Essential hypertension, benign - ICD9: 401.1, ICD10: I10 - Controlled - Continue current medications - Recommend home blood pressure monitoring, to bring results to next visit - Encouraged sodium restriction, DASH or Mediterranean diet - Recommend regular aerobic exercise - Discussed need for and benefit of weight loss. BMI 31.45 kg/(m^2) 3. Mixed hyperlipidemia - ICD9: 272.2, ICD10: E78.2 - Uncontrolled - Worsening control - Continue current medications - Counseled on healthy diet and regular exercise - Discussed need for and benefit of weight loss. BMI 31.45 kg/(m^2) 4. Elevated fasting blood sugar - ICD9: 790.21, ICD10: R73.01 - good control 5. GERD without esophagitis - ICD9: 530.81, ICD10: K21.9 - Continue treatment with Protonix 40 mg QD 6. CAD S/P percutaneous coronary angioplasty - ICD9: 414.01, V45.82, ICD10: I25.10, Z98.61 - clinically stable. Follows with Cardio 7. History of CVA (cerebrovascular accident) - ICD9: V12.54, ICD10: Z86.73 - stable with Tx. Needs to reduce fat in diet to lower Trigs and LDL. 8. Dementia without behavioral disturbance (HCC) - ICD9: 294.20, ICD10: F03.90 - on meds per Neuro 9. NAIN (obstructive sleep apnea) - ICD9: 327.23, ICD10: G47.33 - wearing CPAP nightly and sees sleep med. 10. Anemia, unspecified type - ICD9: 285.9, ICD10: D64.9 - recent lab was normal. Will monitor 11. Advance directive discussed with patient - ICD9: V65.49, ICD10: Z71.89 - up to date 12. Pulmonary emphysema, unspecified emphysema type (HCC) - ICD9: 492.8, ICD10: J43.9 - on meds and managed per Pulm 13. Stage 3 chronic kidney disease, unspecified whether stage 3a or 3b CKD (HCC) - ICD9: 585.3, ICD10: N18.30 - eGFR: 41 Improving - Counseled on avoiding NSAIDs, adequate hydration - Counseled on low sodium diet - ACEi/ARB prescribed: Yes - repeat BMP in a month F/u 6 months routine check BMP, Lipid and A1c prior I spent a total of 40 minutes on the date of the service which included preparing to see the patient, [id number] patient care, completing clinical documentation, performing a medically appropriate examination, counseling and educating the patient/family/caregiver and ordering medications, tests, or procedures. Adama Mendoza MD documented in this encounterMer[facility]07-[facility] Telephone encounter Note * Telephone Encounter - Christi Roberts LPN - 04/05/2024 4:56 PM EDT notified with results below and also gave message to pt. They will come in on Thursday and get lab repeated. Christi Roberts LPN [facility]07-02-2024 Miscellaneous Notes* Telephone Encounter - Christi Roberts LPN - 04/05/2024 4:56 PM EDT notified with results below and also gave message to pt. They will come in on Thursday and get lab repeated. Christi Roberts LPN * Telephone Encounter - Judith Vanegas MA - 04/05/2024 4:47 PM EDT Left message for patient's to contact office. Judith Vanegas MA * Telephone Encounter - Adama Mendoza MD - 04/05/2024 4:43 PM EDT Let know his one kidney function was high and question if dehydrated. I want him to hydrate well and get a repeat lab this Thursday. Order placed. documented in this encounterMer[facility]07-02-2024 Telephone encounter Note * Telephone Encounter - Judith Vanegas MA - 04/05/2024 4:47 PM EDT Left message for patient's to contact office. Judith Vanegas MA [facility]07-02-[facility] Telephone encounter Note* Telephone Encounter - Adama Mendoza MD - 04/05/2024 4:43 PM EDT Let know his one kidney function was high and question if dehydrated. I want him to hydrate well and get a repeat lab this Thursday. Order placed. [facility] History of Present illness Narrative* Testrake, Dandy - 04/04/2024 2:33 PM EDT Initial Podiatric Office Visit: Chief Complaint: This 79 year old male who presents with chief complaint:left heel pain HPI Patient presents to clinic for evaluation of left foot Had been experiencing lef theel pain 5 weeks ago The pain has improved No issues currently. PAIN EVALUATION No data found in the last 1 encounters. Hemoglobin A1C (%) Date Value 10/08/2023 5.3 04/02/2023 5.7 10/09/2022 5.4 03/26/2022 5.7 09/09/2021 5.8 02/18/2021 5.8 08/10/2020 5.6 12/09/2019 5.6 06/11/2019 5.5 PCP: Adama Mendoza MD PAST MEDICAL HISTORY Diagnosis Date 3-vessel CAD 11/03/2013 Abdominal aortic aneurysm (AAA) without rupture (HCC) 11/08/2016 US: 11/2016 2.6 x 2.4 x 2.0 cm, Repeat in a year US: 02/2018 Stable, 03/2019 US said no AAA, US 08/2020 no AAA no further studies needed. Actinic Keratoses (Premalignant AK's) 08/16/2013 Advance directive discussed with patient 03/26/2022 Discussed 03/2022 Anemia CAD S/P percutaneous coronary angioplasty 11/02/2013 Chronic left shoulder pain 06/30/2018 Dementia without behavioral disturbance (HCC) 05/15/2016 MMSE: 22 05/2016, MMSE: 06/2019, 23 Elevated fasting blood sugar 12/01/2018 Essential hypertension, benign 05/12/2006 Ex-smoker 10/31/2016 Started at age 15, up to 1 PPD quite at age 34 Fam hx-ischem heart disease 08/21/2009 Sister, mother Family history of colon cancer in father 06/09/2018 GERD without esophagitis 12/14/2018 History of CVA (cerebrovascular accident) 02/16/2018 Right posterior internal capsule Impaired driving skills 08/16/2019 Per Occupational Therapy Community Mobility and IADL report patient not safe to drive nor should hereturn to driving. Lipoma of right forearm 05/05/2017 Living will on file 03/26/2022 DPA: Refugio () Malignant neoplasm of prostate (HCC) 03/01/200802/09 PATH: Left Lobe: GS 7 ( 3+4) in 1/4 cores Right Lobe : GS 6 ( 3 +) in 3/5 cores External Beam Radiotherapy -- Dr. Rishabh Yao, Renetta Frantz follow Mixed hyperlipidemia 12/03/2002 Muscle pain, lumbar 09/26/2019 Neck pain 04/18/2019 NAIN (obstructive sleep apnea) 06/09/2018 Wearing CPAP, Per Neurology (Dr. Scott) Overactive bladder 08/01/2019 Rosacea 07/2003 S/P right coronary artery (RCA) stent placement 05/15/2017 Current Outpatient Medications Medication Sig aspirin, enteric coated (ECOTRIN LOW STRENGTH) 81 mg EC tablet Take 1 tablet by mouth once daily. pravastatin (PRAVACHOL) 80 mg tablet Take 1 tablet by mouth once daily. donepezil (ARICEPT) 10 mg tablet Take 1 tablet by mouth daily at bedtime. amLODIPine (NORVASC) 10 mg tablet Take 1 tablet by mouth once daily. solifenacin (VESICARE) 5 mg tablet Take 1 tablet by mouth once daily. losartan (COZAAR) 100 mg tablet Take 1 tablet by mouth once daily. metoprolol succinate ER (TOPROL XL) 50 mg 24 hr tablet Take 1.5 tablets by mouth once daily. pantoprazole DR (PROTONIX) 40 mg tablet Take 1 tablet by mouth daily before breakfast. Take on empty stomach, 1/2 hr before meal. umeclidinium-vilanterol (ANORO ELLIPTA) 62.5-25 mcg/actuation inhaler Inhale 1 Inhalation as instructed once daily. VITAMIN B COMPLEX-100 ORAL Take by mouth. ubidecarenone/vitamin E mixed (COQ10 SG 100 ORAL) Take by mouth. nitroglycerin sublingual (NITROSTAT) 0.4 mg SL tablet Dissolve 1 tablet under the tongue every 5 minutes as needed for chest pain. cholecalciferol (VITAMIN D3) 1,000 unit tab tablet Take 1,000 Units by mouth once daily. ASCORBIC ACID, VITAMIN C, ORAL Take by mouth. Cinnamon Bark 500 mg cap Take 1 capsule by mouth once daily. Blood Pressure Cuff - Home Use BLOOD PRESSURE CUFF FOR HOME USE. DAILY MULTIVITAMIN TAB Take one(1) tablet daily. memantine (NAMENDA) 10 mg tablet Take 1 tablet by mouth two times a day. MELATONIN ORAL Take by mouth. (Patient not taking: Reported on 01/22/2024) No current facility-administered medications for this visit. ALLERGIES Allergen Reactions Zithromax [Azithrom* Itching Beta-Blockers (Beta* Unknown Lipitor [Atorvastat* Intolerance Viagra [Sildenafil] Unknown Zetia [Ezetimibe] Mental Status Change PAST SURGICAL HISTORY Procedure Laterality Date 2D ECHO (EXEP) 02/11/2018 EF=65%, mild jain dysf, mildly enlarged LA, 2D ECHO (EXEP) 10/03/2020 EF=65%, mild Jain dysfunction, COLONOSCOPY FLX DX W/COLLJ SPEC WHEN PFRMD 02/2002 Colonoscopy COLONOSCOPY FLX DX W/COLLJ SPEC WHEN PFRMD 09/14/2007 normal COLONOSCOPY FLX DX W/COLLJ SPEC WHEN PFRMD 07/23/2012 normal COLONOSCOPY FLX DX W/COLLJ SPEC WHEN PFRMD 07/28/2018 Colonoscopy, repeat 5 years ESOPHAGOGASTRODUODENOSCOPY TRANSORAL DIAGNOSTIC 02/2002 EGD ESOPHAGOGASTRODUODENOSCOPY TRANSORAL DIAGNOSTIC 12/22/2002 hiatal hernia, distal esophagitis ESOPHAGOGASTRODUODENOSCOPY TRANSORAL DIAGNOSTIC 08/03/2015 EGD ESOPHAGOGASTRODUODENOSCOPY TRANSORAL DIAGNOSTIC 11/15/2015 EGD ESOPHAGOGASTRODUODENOSCOPY TRANSORAL DIAGNOSTIC 08/13/2020 EGD HEART CATHETERIZATION 2013 Angioplasty, Promus stent to right coronary LEXISCAN STRESS TEST 10/03/[address] Morton RPR UMBILICAL HRNA 5 YRS/> REDUCIBLE 2002 FAMILY HISTORY Problem Relation Age of Onset Prostate Cancer Father Colon Cancer Father Dx in his 70s Heart Father Had heart issues per patient Heart Sister had bypass surgery (mid-40's) Heart Mother Had heart issues per patient Heart Brother had bypass surgery Social History Tobacco Use Smoking status: Former Packs/day: 2.50 Years: 25.00 Additional pack years: 0.00 Total pack years: 62.50 Types: Cigarettes Quit date: 10/05/1978 Years since quittin.5 Smokeless tobacco: Never Tobacco comments: quit 1978 Vaping Use Vaping Use: Never used Substance Use Topics Alcohol use: No Drug use: No REVIEW OF SYSTEMS GENERAL: Negative for Malaise, significant weight loss, fever RESPIRATORY: Negative for cough, wheezing and shortness of breath CARDIOVASCULAR: Negative for chest pain, leg swelling and palpitations GI: Negative for abdominal discomfort, blood in stools or black stools and change in bowel habits : Negative for dysuria, frequency and incontinence MUSCULOSKELETAL: Negative for joint pain or swelling, back pain, and muscle pain. SKIN: Negative for lesions, rash, and itching. HEMATOLOGY/LYMPHOLOGY Negative for prolonged bleeding, bruising easily, and swollen nodes. ENDOCRINE: Negative for cold or heat intolerance, polyuria, polydipsia and goiter. NEURO: negative Physical Exam: Constitutional: Pt is a well developed 79 year old male who is alert, oriented and cooperative Eyes: Following during examination. No redness or drainage. Respiratory: RR normal and nonlabored. Even breathing. No evidence of distress or shortness of breath. Psychology: Patient is engaged during conversation. Normal affect and mood. Does not appear depressed or anxious during encounter. Vascular: Dorsalis pedis and posterior tibial pulses palpable as b/l Capillary Fill time < 5 seconds to digits 1-5 b/l Skin temperature warm to warm proximal to distal b/l Hair growth present to digits Neurological: intact light touch/epicritic sensation b/l intact protective sensation no significant neurological deficits Dermatological: Nails 1-5 b/l appear normal. Webspaces clean and dry 1-4 b/l. Skin appears well hydrated and supple. good color, texture, turgor. No open lesions present. No callosities present. Musculoskeletal/Orthopaedic: Patient has no pain to palpation of b/l feet Large heel spur is noted to posterior heel L>R AJ ROM is decreased with knee extended and flexed 1st MPJ is decreased when loaded and no pain or crepitus are noted with ROM. MTJ, STJ are full and free of pain and crepitus. +5/5 muscle strength dorsiflexion, plantarflexion, inversion, eversion b/l Radiographs: 3 views left foot reviewed April 04, 2024: I have personally reviewed and interpreted these XR myself: there is posterior heel spur and plantar heel spur ASSESSMENT: (M77.32) Calcaneal spur of left foot (primary encounter diagnosis) (M79.672) Pain of left heel PLAN: 1. History and physical examination performed. 2. XR reviewed with patient and interpreted today 3. Discussed left heel spur. No pain currently. Would recommend he continue with good supportive shoes and inserts. Could also use gel heel pad to help avoid rubbing. I demonstrated possible padding for patient but family wishes to purchase over the counter 4. F/u if pain returns. Dandy Faith DPM Podiatry [address] [place] [address] Dept: [phone] Dept * Katt Olivares LPN - 04/04/2024 2:26 PM EDT AMB ROOMING INTAKE FLOWSHEET DATA Patient presents with: Left Foot - Established Patient, Pain Katt Olivares LPN documented in this encounterMer[facility]06-24-[facility]24 Telephone encounter Note * Telephone Encounter - Adama Mendoza MD - 03/28/2024 10:27 PM EDT The following approved medication requests have been transmitted electronically. Requested Prescriptions Signed Prescriptions Disp Refills aspirin, enteric coated (ECOTRIN LOW STRENGTH) 81 mg EC tablet 90 tablet 3 Sig: Take 1 tablet by mouth once daily. Authorizing Provider: ADAMA MENDOZA MD [facility]06-24-2024 Miscellaneous Notes* Telephone Encounter - Adama Mendoza MD - 03/28/2024 10:27 PM EDT The following approved medication requests have been transmitted electronically. Requested Prescriptions Signed Prescriptions Disp Refills aspirin, enteric coated (ECOTRIN LOW STRENGTH) 81 mg EC tablet 90 tablet 3 Sig: Take 1 tablet by mouth once daily. Authorizing Provider: ADAMA MENDOZA MD * Telephone Encounter - Brianna Rosales - 03/28/2024 11:44 AM EDT Prescription Refill Information The patient has been identified by name and date of : Yes Caregiver verified no other encounters exist for this prescription request: Yes Caregiver confirmed with patient/requestor that no other refills are due, in the near future, with this provider at this time: Yes The last office visit in the department: 03-04-24 Does the patient have a future office visit with this provider/department: Yes Requested Prescriptions Pending Prescriptions Disp Refills aspirin, enteric coated (ECOTRIN LOW STRENGTH) 81 mg EC tablet 90 tablet 3 Sig: Take 1 tablet by mouth once daily. Brianna Salazar March 28, 2024 11:45 AM documented in this encounterMer[facility]06-24-2024 Telephone encounter Note * Telephone Encounter - Brianna Rosales - 03/28/2024 11:44 AM EDT Prescription Refill Information The patient has been identified by name and date of : Yes Caregiver verified no other encounters exist for this prescription request: Yes Caregiver confirmed with patient/requestor that no other refills are due, in the near future, with this provider at this time: Yes The last office visit in the department: 03-04-24 Does the patient have a future office visit with this provider/department: Yes Requested Prescriptions Pending Prescriptions Disp Refills aspirin, enteric coated (ECOTRIN LOW STRENGTH) 81 mg EC tablet 90 tablet 3 Sig: Take 1 tablet by mouth once daily. Brianna Howe [facility] March 28, 2024 11:45 AM [facility] Work Phone: 1(843) 213-425206-03-2024 Telephone encounter Note* Telephone Encounter - Adama Mendoza MD - 03/07/2024 11:21 AM EDT The following approved medication requests have been transmitted electronically. Requested Prescriptions Signed Prescriptions Disp Refills pravastatin (PRAVACHOL) 80 mg tablet 90 tablet 1 Sig: Take 1 tablet by mouth once daily. Authorizing Provider: ADAMA MENDOZA MD [facility]06-03-2024 Miscellaneous Notes* Telephone Encounter - Adama Mendoza MD - 03/07/2024 11:21 AM EDT The following approved medication requests have been transmitted electronically. Requested Prescriptions Signed Prescriptions Disp Refills pravastatin (PRAVACHOL) 80 mg tablet 90 tablet 1 Sig: Take 1 tablet by mouth once daily. Authorizing Provider: ADAMA MENDOZA MD * Telephone Encounter - Stephany Canchola MA - 03/07/2024 11:03 AM EDT Spoke to and she honestly doesn't remember why is was stopped may be she thinks he takes to many medications. 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 willing to restart please send to jesus Canchola MA * Telephone Encounter - Adama Mendoza MD - 03/07/2024 10:51 AM EDT Let know the last time the pravastatin was filled was 10/12/2023. He had been on the same dose of 80 mg a day since 11/2017. This was to help lesson the risk of a repeat Stroke and FL. It would be beneficial for him to be back on it if he will take it? * Telephone Encounter - Judith Vanegas MA - 03/07/2024 10:01 AM EDT Patient's voiced understanding. She indicated that they will wait for the appointment. Patient indicated that it is feeling better. In regards to the statin medication. doesn't recall who took patient off of the medication. Asit had been a long time ago. She doesn't have the medication at home. She feels that the patient decided not to take it. Judith Vanegas MA * Telephone Encounter - Adama Mendoza MD - 03/04/2024 5:03 PM EDT Let know there is nothing urgent on the x-ray but if she is willing to travel out side of [place] to see a different [facility] Paint Spray Inspector she can call and request an appt change. The other option is she can get an appt with one of the local non-[facility] podiatry offices and then let us know with who and when and we can send a consult request to them. Can we also see if she remembers who had Tom stop his cholesterol med, Pravastatin 80 mg a day? * Telephone Encounter - Quyen Garza - 03/04/2024 3:00 PM EDT Patients is concerned about the wait on the podiatry appointment as it out until April 04 for the first available. If they need to be seen sooner please give them a call so they can reschedule theappointment. Thank you, Quyen Garza documented in this encounterMer[facility]06-03-2024 Telephone encounter Note * Telephone Encounter - Stephany Canchola MA - 03/07/2024 11:03 AM EDT Spoke to and she honestly doesn't remember why is was stopped may be she thinks he takes to many medications. 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 willing to restart please send to jesus Canchola MA [facility]06-03-[facility]24 Telephone encounter Note* Telephone Encounter - Adama Mendoza MD - 03/07/2024 10:51 AM EDT Let know the last time the pravastatin was filled was 10/12/2023. He had been on the same dose of 80 mg a day since 11/2017. This was to help lesson the risk of a repeat Stroke and FL. It would be beneficial for him to be back on it if he will take it? [facility] Telephone encounter Note* Telephone Encounter - Judith Vanegas MA - 03/07/2024 10:01 AM EDT Patient's voiced understanding. She indicated that they will wait for the appointment. Patient indicated that it is feeling better. In regards to the statin medication. doesn't recall who took patient off of the medication. Asit had been a long time ago. She doesn't have the medication at home. She feels that the patient decided not to take it. Judith Vanegas MA [facility]05-31-[facility] Telephone encounter Note* Telephone Encounter - Adama Mendoza MD - 03/04/2024 5:03 PM EDT Let know there is nothing urgent on the x-ray but if she is willing to travel out side of [place] to see a different [facility] Paint Spray Inspector she can call and request an appt change. The other option is she can get an appt with one of the local non[facility] podiatry offices and then let us know with who and when and we can send a consult request to them. Can we also see if she remembers who had Tom stop his cholesterol med, Pravastatin 80 mg a day? [facility] Telephone encounter Note* Telephone Encounter - Quyen Garza - 03/04/2024 3:00 PM EDT Patients is concerned about the wait on the podiatry appointment as it out until April 04 for the first available. If they need to be seen sooner please give them a call so they can reschedule theappointment. Thank you, Quyen Braxton [facility]05-31-2024 Telephone encounter Note* Telephone Encounter - Nancy Miller LPN - 03/04/2024 2:37 PM EDT Results were given to pt's spouse Refugio. Refugio & pt are in the building at another appt for pt & will stop at appt desk on their way out to schedule with podiatry. Nancy Miller LPN [facility]05-31-2024 Miscellaneous Notes* Telephone Encounter - Nancy Miller LPN - 03/04/2024 2:37 PM EDT Results were given to pt's spouse Refugio. Refugio & pt are in the building at another appt for pt & will stop at appt desk on their way out to schedule with podiatry. Nancy Miller LPN * Telephone Encounter - Danita Meraz PA-C - 03/04/2024 2:20 PM EDT Let know that I took a look at his xray. I see heel spurs. Fairly large and may be the cause of his pain. (Spurs causing inflammation of tendons). I am going to put in consult to podiatry. Danita Meraz PA-C documented in this encounterMercy [facility]05-31-2024 Telephone encounter Note * Telephone Encounter - Danita Meraz PA-C - 03/04/2024 2:20 PM EDT Let know that I took a look at his xray. I see heel spurs. Fairly large and may be the cause of his pain. (Spurs causing inflammation of tendons). I am going to put in consult to podiatry. Danita Meraz PA-C [facility]-31-[facility] History of Present illness Narrative* Jana Tejeda RT(Ángela) - 03/04/2024 12:20 PM EDT Radiology Service Progress Note PATIENT NAME: Lory Johnson DATE OF SERVICE: March 04, 2024 TIME: 12:15 PM PATIENT IDENTITY VERIFICATION COMPLETED USING TWO (2) IDENTIFIERS: Name and Date of confirmedby patient verbally. FALL SCREENING: Has the patient had 2 falls in the last year or 1 fall with injury or currently using an Ambulatory Assistive Device (Walker, Cane, Wheelchair, Crutches, etc.)? Yes, Patient High Riskfor Falls What interventions were put in place to prevent falls during this visit? Offered Assistance with Transfers/Clothing, Instructed Patient to Remain Seated (Not on Exam Table) Until Exam, and Increased Observations by Caregivers PATIENT GENDER DATA: Male PATIENT RELEVANT IMPLANT DATA REVIEWED: Yes PATIENT PRESENTS WITH AN IMPLANTABLE OR ATTACHED CLINICAL PROGRAM COORDINATOR: No RADIOLOGY DEPARTMENT: General X-ray: Exam(s) Completed: Lower Extremity X- Ray(s): Foot, Left PERIPHERAL IV DATA: Not applicable SIGNED BY: RT Hector(Ángela) March 04, 2024 12:15 PM documented in this encounterMercy [facility]05-31-2024 History of Present illness Narrative* Danita eMraz PA-C - 03/04/2024 11:58 AM EDT Chief Complaint Patient presents with: Pain: Left heel pain X couple HPI Lory Johnson is a 78 year old male who presents here today for Above Complaints.. Patient here with . Patient has dementia and is poor historian is main historian. Patient has been having left heel pain for the past couple days. notes that it does seem worse in the morning but symptoms are all day. Pain is located on bottom and back of foot. No injury that she is aware off. Past medical history, appointments, medications, allergies reviewed. Previous Medical History PAST MEDICAL HISTORY Diagnosis Date 3-vessel CAD 11/03/2013 Abdominal aortic aneurysm (AAA) without rupture (HCC) 11/08/2016 US: 11/2016 2.6 x 2.4 x 2.0 cm, Repeat in a year US: 02/2018 Stable, 03/2019 US said no AAA, US 08/2020 no AAA no further studies needed. Actinic Keratoses (Premalignant AK's) 08/16/2013 Advance directive discussed with patient 03/26/2022 Discussed 03/2022 Anemia CAD S/P percutaneous coronary angioplasty 11/02/2013 Chronic left shoulder pain 06/30/2018 Dementia without behavioral disturbance (HCC) 05/15/2016 MMSE: 22 05/2016, MMSE: 06/2019, 23 Elevated fasting blood sugar 12/01/2018 Essential hypertension, benign 05/12/2006 Ex-smoker 10/31/2016 Started at age 15, up to 1 PPD quite at age 34 Fam hx-ischem heart disease 08/21/2009 Sister, mother Family history of colon cancer in father 06/09/2018 GERD without esophagitis 12/14/2018 History of CVA (cerebrovascular accident) 02/16/2018 Right posterior internal capsule Impaired driving skills 08/16/2019 Per Occupational Therapy Community Mobility and IADL report patient not safe to drive nor should hereturn to driving. Lipoma of right forearm 05/05/2017 Living will on file 03/26/2022 DPA: Refugio () Malignant neoplasm of prostate (HCC) 03/01/200802/09 PATH: Left Lobe: GS 7 ( 3+4) in 1/4 cores Right Lobe : GS 6 ( 3 +) in 3/5 cores External Beam Radiotherapy -- Dr. Rishabh Yao, Renetta Landry follow Mixed hyperlipidemia 12/03/2002 Muscle pain, lumbar 09/26/2019 Neck pain 04/18/2019 NAIN (obstructive sleep apnea) 06/09/2018 Wearing CPAP, Per Neurology (Dr. Scott) Overactive bladder 08/01/2019 Rosacea 07/2003 S/P right coronary artery (RCA) stent placement 05/15/2017 Previous Surgical History PAST SURGICAL HISTORY Procedure Laterality Date 2D ECHO (EXEP) 02/11/2018 EF=65%, mild jain dysf, mildly enlarged LA, 2D ECHO (EXEP) 10/03/2020 EF=65%, mild Jain dysfunction, COLONOSCOPY FLX DX W/COLLJ SPEC WHEN PFRMD 02/2002 Colonoscopy COLONOSCOPY FLX DX W/COLLJ SPEC WHEN PFRMD 09/14/2007 normal COLONOSCOPY FLX DX W/COLLJ SPEC WHEN PFRMD 07/23/2012 normal COLONOSCOPY FLX DX W/COLLJ SPEC WHEN PFRMD 07/28/2018 Colonoscopy, repeat 5 years ESOPHAGOGASTRODUODENOSCOPY TRANSORAL DIAGNOSTIC 02/2002 EGD ESOPHAGOGASTRODUODENOSCOPY TRANSORAL DIAGNOSTIC 12/22/2002 hiatal hernia, distal esophagitis ESOPHAGOGASTRODUODENOSCOPY TRANSORAL DIAGNOSTIC 08/03/2015 EGD ESOPHAGOGASTRODUODENOSCOPY TRANSORAL DIAGNOSTIC 11/15/2015 EGD ESOPHAGOGASTRODUODENOSCOPY TRANSORAL DIAGNOSTIC 08/13/2020 EGD HEART CATHETERIZATION 2013 Angioplasty, Promus stent to right coronary LEXISCAN STRESS TEST 10/03/[address] Morton RPR UMBILICAL HRNA 5 YRS/> REDUCIBLE 2002 Family History FAMILY HISTORY Problem Relation Age of Onset Prostate Cancer Father Colon Cancer Father Dx in his 70s Heart Father Had heart issues per patient Heart Sister had bypass surgery (mid-40's) Heart Mother Had heart issues per patient Heart Brother had bypass surgery Patient Allergies ALLERGIES Allergen Reactions Zithromax [Azithrom* Itching Beta-Blockers (Beta* Unknown Lipitor [Atorvastat* Intolerance Viagra [Sildenafil] Unknown Zetia [Ezetimibe] Mental Status Change Current Medications Current Outpatient Medications on File Prior to Visit Medication Sig amLODIPine (NORVASC) 10 mg tablet Take 1 tablet by mouth once daily. solifenacin (VESICARE) 5 mg tablet Take 1 tablet by mouth once daily. losartan (COZAAR) 100 mg tablet Take 1 tablet by mouth once daily. metoprolol succinate ER (TOPROL XL) 50 mg 24 hr tablet Take 1.5 tablets by mouth once daily. pantoprazole DR (PROTONIX) 40 mg tablet Take 1 tablet by mouth daily before breakfast. Take on empty stomach, 1/2 hr before meal. umeclidinium-vilanterol (ANORO ELLIPTA) 62.5-25 mcg/actuation inhaler Inhale 1 Inhalation as instructed once daily. VITAMIN B COMPLEX-100 ORAL Take by mouth. ubidecarenone/vitamin E mixed (COQ10 SG 100 ORAL) Take by mouth. memantine (NAMENDA) 10 mg tablet Take 1 tablet by mouth two times a day. aspirin, enteric coated (ECOTRIN LOW STRENGTH) 81 mg EC tablet Take 1 tablet by mouth once daily. nitroglycerin sublingual (NITROSTAT) 0.4 mg SL tablet Dissolve 1 tablet under the tongue every 5 minutes as needed for chest pain. cholecalciferol (VITAMIN D3) 1,000 unit tab tablet Take 1,000 Units by mouth once daily. ASCORBIC ACID, VITAMIN C, ORAL Take by mouth. Cinnamon Bark 500 mg cap Take 1 capsule by mouth once daily. Blood Pressure Cuff - Home Use BLOOD PRESSURE CUFF FOR HOME USE. DAILY MULTIVITAMIN TAB Take one(1) tablet daily. donepezil (ARICEPT) 10 mg tablet Take 1 tablet by mouth daily at bedtime. (Patient not taking: Reported on 01/22/2024) pravastatin (PRAVACHOL) 80 mg tablet Take 1 tablet by mouth daily at bedtime. (Patient not taking: Reported on 01/22/2024) MELATONIN ORAL Take by mouth. (Patient not taking: Reported on 01/22/2024) No current facility-administered medications on file prior to visit. Social History Social History Tobacco Use Smoking status: Former Packs/day: 2.50 Years: 25.00 Additional pack years: 0.00 Total pack years: 62.50 Types: Cigarettes Quit date: 10/05/1978 Years since quittin.4 Smokeless tobacco: Never Tobacco comments: quit 1978 Vaping Use Vaping Use: Never used Substance Use Topics Alcohol use: No Drug use: No Review of Symptoms REVIEW OF SYSTEMS See hpi EXAM: BP 135/69 (BP Site: Left Arm, BP Position: Sitting, BP Cuff Size: Large Adult) Pulse (!) 58 Resp 20 Wt 96.6 kg (213 lb) SpO2 97% BMI 31.45 kg/m General Appearance: Well appearing, alert, in no acute distress, well-hydrated, well nourished.. Musculoskeletal: pain to palp of left heel at plantar fascia insertion point and posterior heel around achilles tendon. FROM. [facility]. Health Maintenance List RSV Vaccine(1 - 1-dose 60+ series) Never done BP Controlled (<130/80) due on 03/26/2023 Advance Directive Discussion due on 10/05/2023 Covid-19 Vaccine( season) due on 11/14/2023 LDL Cholesterol due on 10/08/2024 Annual PCP Team Chronic Disease Visit due on 10/12/2024 Diabetes Screening due on 10/08/2026 DTaP,Tdap,Td Vaccine(3 - Td or Tdap) due on 04/09/2028 Spirometry Completed Influenza Vaccine Completed Shingrix Vaccine Completed Pneumococcal Vaccine: 65+ Completed Colorectal Cancer Screening Discontinued Data reviewed ASSESSMENT/PLAN: 1. Pain of left heel - ICD9: 729.5, ICD10: M79.672 Suspect heel spur with irritation. Check xray Discussed RICE and stretching with patient and . Follow up if not improving. - XR FOOT GENERAL 3V AP/LAT/OBL LEFT Danita Meraz PA-C documented in this encounter[facility] History of Present illness Narrative* Shaye Kitchen Jr., MD - 03/04/2024 11:41 AM EDT ESTABLISHED PATIENT VISIT CHIEF COMPLAINT: Follow Up HISTORY OF PRESENT ILLNESS: Lory Johnson is a 78 year old male, BMI 31.4 kg/m2 with a PMH significant for and per last office visit of 01/22/24: 1. 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 Patient compliant with Aricept and Namenda without any side effects. Notes he is very physically active and cognitively active. Does not have any appetite change or weight loss. No falls since last appointment. No concerns for safety, doing well at home. Repeat MoCA was deferred due to time. No changes made today, encouraged conservative therapy including increasing physical activity, cognitive activity, hydration, optimizing sleep. Patient agrees and understands. 2. Nonspecific abnormal electroencephalogram (EEG) - ICD9: 794.02, ICD10: R94.01 3. History of CVA (cerebrovascular accident) - ICD9: V12.54, ICD10: Z86.73 4. Seizure (HCC) - ICD9: 780.39, ICD10: R56.9 Patient's reporting episode of altered mental status that occurred late last year where he wasnot responding, seemed confused and had some poor strength. EMS was called and he was evaluated. Notes that he returned back to baseline. EEG was obtained from last appointment that did show epileptiform changes in the bifrontal central regions, more prominent on the right but no seizures noted. Patient denying any seizure-like activity, in agreement with this. Discussed starting an antiepileptic medication including Keppra versus lamotrigine, recent creatinine was 1.24. However, insisting on not starting any additional medications at this time, states she does not believe it is necessary as patient is not having any seizure-like activity. Discussed at length risk for seizures, and discussed seizure precautions including not bathing alone, climbing ladders, etc. Patient does notdrive. Discussed that should patient have any seizure-like activity to reach out (department, patient and family agree and understand. MRI of the brain does show tiny remote infarct in the bilateral middle frontal gyrus, new since previous imaging in 2018. MRA of the head and neck were negative for any significant stenosis or occlusion. MRI of the brain in 2018 showed small neurosurgical fusion the right posterior internal capsulethat extends into the right posterior of her ventricular white matter, concerning for possible cardioembolic source. Patient has been following with cardiology and reports that he has been doingwell. notes that patient is off of statin medications but is unsure why. Is continuing aspirin, encouraged him to follow-up with primary care to discuss restarting his statin medications. Discussed risk factors for stroke at length. No more episodes of AMS. Reviewed EEG results with pt and , and they do not wish to start seizure meds, known risks of seizures based on EEG findings and known MRI results. Regarding memory, no necessary improvement and does have moments where does not remember. Still taking Aricept and Nameda.Pt also remains on ASA given history of stroke. seeing no decline since last visit. Independent with ADLs - dressing, bathing. Usually eats out but can make a sandwich. Not driving. No PAP issues. No sleep complaints. PAP compliance report reviewed and scanned into EPIC. Using nearly nightly for 4-5 hours per night with no significant leak and AHI <2.0. Modified MOCA Immediate recall 02/06 Number repeat : 2/2 Sentence repeat: 2 Serial 7s: 0 Abstract: 02 Orientation: 06 Namin/3 Delayed recall: 0 REVIEW OF SYSTEMS GENERAL:No weight loss, malaise or fevers. HEENT:Negative for frequent or significant headaches, No changes in hearing or vision, no nose bleeds or other nasal problems NECK:Negative for lumps, goiter, pain and significant neck swelling RESPIRATORY: Negative for cough, wheezing or shortness of breath. CARDIOVASCULAR: Negative for chest pain, leg swelling or palpitations. GASTROINTESTINAL: Negative for abdominal discomfort, blood in stools or black stools or change in bowel habits GENITOURINARY: No history of dysuria, frequency or incontinence MUSCULOSKELETAL: L foot pain - PCP ordered XRays earlier today. NEUROLOGIC:Negative for focal numbness or weakness, headaches and dizziness or syncope, vision changes, speech/languag changes - EXCEPT that as per HPI above. SKIN:Negative for lesions, rash, and itching. LAB/IMAGING: Those performed since patient's last visit have been reviewed. WBC (k/uL) Date Value 06/23/2023 7.40 RBC (m/uL) Date Value 06/23/2023 4.46 Hemoglobin (g/dL) Date Value 06/23/2023 13.2 Hematocrit (%) Date Value 06/23/2023 40.4 MCV (fL) Date Value 06/23/2023 90.6 MCH (pg) Date Value 06/23/2023 29.6 MCHC (g/dL) Date Value 06/23/2023 32.7 RDW-CV (%) Date Value 06/23/2023 12.7 Platelet Count (k/uL) Date Value 06/23/2023 179 MPV (fL) Date Value 06/23/2023 10.9 Glucose (mg/dL) Date Value 10/08/2023 110 (H) BUN (mg/dL) Date Value 10/08/2023 13 Creatinine (mg/dL) Date Value 10/08/2023 1.24 (H) Sodium (mmol/L) Date Value 10/08/2023 142 Potassium (mmol/L) Date Value 10/08/2023 4.1 Chloride (mmol/L) Date Value 10/08/2023 106 (H) CO2 (mmol/L) Date Value 10/08/2023 25 Protein, Total (g/dL) Date Value 06/23/2023 7.2 Albumin (g/dL) Date Value 06/23/2023 3.6 (L) Calcium, Total (mg/dL) Date Value 10/08/2023 9.7 Alkaline Phosphatase (U/L) Date Value 06/23/2023 69 Bilirubin, Total (mg/dL) Date Value 06/23/2023 0.4 AST (U/L) Date Value 06/23/2023 28 ALT (U/L) Date Value 06/23/2023 28 Total Cholesterol, Nonfasting Date Value Ref Range Status 10/08/2023 164 <200 mg/dL Final Comment: <200 mg/dL, Desirable 200-239 mg/dL, Borderline high >239 mg/dL, High HDL Cholesterol, Nonfasting Date Value Ref Range Status 10/08/2023 37 (L) >39 mg/dL Final Comment: 40-59 mg/dL, Acceptable >59 mg/dL, High: Negative risk factor for coronary heart disease <40 mg/dL, Low: Positive risk factor for coronary heart disease LDL Cholesterol, Nonfasting Date Value Ref Range Status 10/08/2023 97 <100 mg/dL Final Comment: <100 mg/dL, Optimal 100-129 mg/dL, Near optimal/above optimal 130-159 mg/dL, Borderline high 160-189 mg/dL, High >189 mg/dL, Very high Secondary prevention optimal LDL Cholesterol levels are recommended to be < 70 mg/dL Triglycerides, Nonfasting Date Value Ref Range Status 10/08/2023 151 (H) <150 mg/dL Final Comment: <150 mg/dL, Normal 150-199 mg/dL, Borderline high 200-499 mg/dL, High >499 mg/dL, Very high MEDICATIONS: amLODIPine (NORVASC) 10 mg tablet Take 1 tablet by mouth once daily. solifenacin (VESICARE) 5 mg tablet Take 1 tablet by mouth once daily. losartan (COZAAR) 100 mg tablet Take 1 tablet by mouth once daily. metoprolol succinate ER (TOPROL XL) 50 mg 24 hr tablet Take 1.5 tablets by mouth once daily. pantoprazole DR (PROTONIX) 40 mg tablet Take 1 tablet by mouth daily before breakfast. Take on empty stomach, 1/2 hr before meal. umeclidinium-vilanterol (ANORO ELLIPTA) 62.5-25 mcg/actuation inhaler Inhale 1 Inhalation as instructed once daily. VITAMIN B COMPLEX-100 ORAL Take by mouth. ubidecarenone/vitamin E mixed (COQ10 SG 100 ORAL) Take by mouth. memantine (NAMENDA) 10 mg tablet Take 1 tablet by mouth two times a day. aspirin, enteric coated (ECOTRIN LOW STRENGTH) 81 mg EC tablet Take 1 tablet by mouth once daily. nitroglycerin sublingual (NITROSTAT) 0.4 mg SL tablet Dissolve 1 tablet under the tongue every 5 minutes as needed for chest pain. cholecalciferol (VITAMIN D3) 1,000 unit tab tablet Take 1,000 Units by mouth once daily. ASCORBIC ACID, VITAMIN C, ORAL Take by mouth. Cinnamon Bark 500 mg cap Take 1 capsule by mouth once daily. Blood Pressure Cuff - Home Use BLOOD PRESSURE CUFF FOR HOME USE. DAILY MULTIVITAMIN TAB Take one(1) tablet daily. donepezil (ARICEPT) 10 mg tablet Take 1 tablet by mouth daily at bedtime. (Patient not taking: Reported on 01/22/2024) pravastatin (PRAVACHOL) 80 mg tablet Take 1 tablet by mouth daily at bedtime. (Patient not taking: Reported on 01/22/2024) MELATONIN ORAL Take by mouth. (Patient not taking: Reported on 01/22/2024) HISTORIES PAST MEDICAL HISTORY Diagnosis Date 3-vessel CAD 11/03/2013 Abdominal aortic aneurysm (AAA) without rupture (HCC) 11/08/2016 US: 11/2016 2.6 x 2.4 x 2.0 cm, Repeat in a year US: 02/2018 Stable, 03/2019 US said no AAA, US 08/2020 no AAA no further studies needed. Actinic Keratoses (Premalignant AK's) 08/16/2013 Advance directive discussed with patient 03/26/2022 Discussed 03/2022 Anemia CAD S/P percutaneous coronary angioplasty 11/02/2013 Chronic left shoulder pain 06/30/2018 Dementia without behavioral disturbance (HCC) 05/15/2016 MMSE: 22 05/2016, MMSE: 06/2019, 23 Elevated fasting blood sugar 12/01/2018 Essential hypertension, benign 05/12/2006 Ex-smoker 10/31/2016 Started at age 15, up to 1 PPD quite at age 34 Fam hx-ischem heart disease 08/21/2009 Sister, mother Family history of colon cancer in father 06/09/2018 GERD without esophagitis 12/14/2018 History of CVA (cerebrovascular accident) 02/16/2018 Right posterior internal capsule Impaired driving skills 08/16/2019 Per Occupational Therapy [facility] and IADL report patient not safe to drive nor should hereturn to driving. Lipoma of right forearm 05/05/2017 Living will on file 03/26/2022 DPA: [place] () Malignant neoplasm of prostate (HCC) 03/01/200802/09 PATH: Left Lobe: GS 7 ( 3+4) in 1/4 cores Right Lobe : GS 6 ( 3 +) in 3/5 cores External Beam Radiotherapy -- Dr. Rishabh Yao, Renetta Landry follow Mixed hyperlipidemia 12/03/2002 Muscle pain, lumbar 09/26/2019 Neck pain 04/18/2019 NAIN (obstructive sleep apnea) 06/09/2018 Wearing CPAP, Per Neurology (Dr. Scott) Overactive bladder 08/01/2019 Rosacea 07/2003 S/P right coronary artery (RCA) stent placement 05/15/2017 FAMILY HISTORY Problem Relation Age of Onset Prostate Cancer Father Colon Cancer Father Dx in his 70s Heart Father Had heart issues per patient Heart Sister had bypass surgery (mid-40's) Heart Mother Had heart issues per patient Heart Brother had bypass surgery SOCIAL HISTORY Social History Tobacco Use Smoking status: Former Packs/day: 2.50 Years: 25.00 Additional pack years: 0.00 Total pack years: 62.50 Types: Cigarettes Quit date: 10/05/1978 Years since quittin.4 Smokeless tobacco: Never Tobacco comments: quit 1978 Vaping Use Vaping Use: Never used Substance Use Topics Alcohol use: No Drug use: No PHYSICAL EXAMINATION BP 132/84 Pulse (!) 58 Resp 16 Wt 96.4 kg (212 lb 9.6 oz) SpO2 96% BMI 31.40 kg/m GENERAL EXAM: General appearance: NAD, pleasant. HEENT: NC/AT, nasal congestion absent, no oral lesions, membranes moist. NECK: No masses, supple. Lungs: CTA bilaterally. CV: RRR nl S1, S2. No carotid bruits. Abd: Soft, nontender, nondistended. Bowel sounds present. Extr: No cyanosis, clubbing or edema. No evidence of fasciculations. Extremity pulses palpable and normal. Pain on palp of achilles on L, no calf tenderness. Skin: Cool to touch. NEUROLOGICAL EXAM: General: Awake, alert, oriented x3 (person,place,time), fluent, no dysarthria; MOCA above. CN: PERRL, EOMI and without nystagmus, VFF to confrontation, facial sensation and strength are normal and symmetric, hearing is intact, palate and tongue movements are intact and symmetric. SCM and trapezius strength normal. Motor: Normal tone, bulk and strength (5/5) bilaterally (throughout extremities x4). Coordination: FNF, ESAU, HTS intact. No tremors. Sensation: LT intact throughout. No evidence of neglect. Gait: Stable with normal stride and arm swing despite L foot pain. Assessment and Plan: ASSESSMENT/PLAN: 1. Dementia without behavioral disturbance (HCC) - ICD9: 294.20, ICD10: F03.90 (primary diagnosis) MOCA essentially unchanged. As above, taking Aricept 10mg daily and Namenda 10mg BID - tolerating without side effect. They are not wanting to add or adjust meds, and feel that overall patient is stable. Encouraged brain exercises. Will continue to follow. Refills provided. 2. NAIN (obstructive sleep apnea) - ICD9: 327.23, ICD10: G47.33 No subjective PAP complaints. Subjective and objective PAP compliance confirmed. AHI normalized on current settings. Encouraged continued compliance. Reminded pt to clean and replace equipment regularly. Pt does not drive. 3. History of CVA (cerebrovascular accident) - ICD9: V12.54, ICD10: Z86.73 No new focal deficits. On ASA. Uncertain as to why statin was discontinued and will reach out to PCP. BP goal <140/90. Glucose goal <140. 4. Altered mental status, unspecified altered mental status type - ICD9: 780.97, ICD10: R41.82 5. Abnormal EEG - ICD9: 794.02, ICD10: R94.01 Patient with changes on EEG that while not electrographic seizures, could represent epileptiform abnormalities that would suggest pt prone for seizures. This may possible be cause of prior episodes of AMS. D/w pt and his in detail these findings and explained that seizures do not require a locbut simply could be a brief change in mental status. Given history recommended trial of at least low dose ASM. However they both decline such. Seizure risks and precautions d/w pt and his . Note pt does not drive. Shaye Kitchen MD I spent a total of 42 minutes on the date of the service which included preparing to see the patient, [id number] patient care, completing clinical documentation, obtaining and/or reviewing separately obtained history, performing a medically appropriate examination, counseling and educating the pat ient/family/caregiver, ordering medications, tests, or procedures, and communicating results to thepatient/family/caregiver. documented in this [facility]04-[facility] Telephone encounter Note * Telephone Encounter - Shyam SalazarBrianna Andres - 01/25/2024 8:22 AM EDT Pharmacy verified in [facility] Patient has been identified by name and date of : Yes Patient aware RX will be sent to pharmacy. No need to notify patient. Spouse phones for refill(s): Requested Prescriptions Pending Prescriptions Disp Refills solifenacin (VESICARE) 5 mg tablet 90 tablet 1 Sig: Take 1 tablet by mouth once daily. losartan (COZAAR) 100 mg tablet 90 tablet 1 Sig: Take 1 tablet by mouth once daily. metoprolol succinate ER (TOPROL XL) 50 mg 24 hr tablet 135 tablet 1 Sig: Take 1.5 tablets by mouth once daily. Date of last office visit : 10/12/2023 Date of next office visit : 04/11/2024 Last 2 Encounter Wt Readings: Date: Wt: 01/22/2024 97 kg (213 lb 15.3 oz) 12/15/2023 95.7 kg (211 lb) Not applicable Please advise. Brianna Howe Pss [facility]04-22-[facility] Miscellaneous Notes* Telephone Encounter - Shyam Salazar Brianna Campos - 01/25/2024 8:22 AM EDT Pharmacy verified in [facility] Patient has been identified by name and date of : Yes Patient aware RX will be sent to pharmacy. No need to notify patient. Spouse phones for refill(s): Requested Prescriptions Pending Prescriptions Disp Refills solifenacin (VESICARE) 5 mg tablet 90 tablet 1 Sig: Take 1 tablet by mouth once daily. losartan (COZAAR) 100 mg tablet 90 tablet 1 Sig: Take 1 tablet by mouth once daily. metoprolol succinate ER (TOPROL XL) 50 mg 24 hr tablet 135 tablet 1 Sig: Take 1.5 tablets by mouth once daily. Date of last office visit : 10/12/2023 Date of next office visit : 04/11/2024 Last 2 Encounter Wt Readings: Date: Wt: 01/22/2024 97 kg (213 lb 15.3 oz) 12/15/2023 95.7 kg (211 lb) Not applicable Please advise. Brianna Howe Pss documented in this encounterMer[facility]04-19-2024 Instructions* Patient Instructions* Jessica Miramontes PA-C - 01/22/2024 10:33 AM EDT Follow up with primary care provider to discuss statin use Continue with aspirin daily Stay active and increase cognitive activity, increase water intake. Seizure precautions: no bathing alone, no climbing ladders, no swimming alone, no driving Follow up with Dr. Kitchen as planned in February documented in this encounterMer[facility]04-19-[facility] History of Present illness Narrative* Jessica Miramontes PA-C - 01/22/2024 10:04 AM EDT ESTABLISHED PATIENT VISIT Last visit: 11/20/23 ASSESSMENT/PLAN: 1. Dementia without behavioral disturbance (HCC) - ICD9: 294.20, ICD10: F03.90 (primary diagnosis) Patient with known history of dementia. Prior imaging studies reviewed and while on evidence of acute intracranial process contributing to dementia, patient with temp lobe atrophy and generalized atrophy suggestive of a neurodegenerative process. Ddx d/w pt. Metabolic causes previously ruled out and no history of depression as a provoking factor. While history of stroke, pattern of cognitive decline not suggestive of vascular dementia. Again, suspect neurodegenerative process. Patient already on maximum therapies of both Aricept and Namenda at this time. D/w pt and newer therapies (infusion) but they would not want nor given cognitive deficits on MOCA would I feel pt an appropriate candidate even if Alzheimer's confirmed with CSF evaluation. No changes in therapy at this time. Encouraged brain exercises. D/w pt and precautions to take at home and safety measures. 2. NAIN (obstructive sleep apnea) - ICD9: 327.23, ICD10: G47.33 Compliant with PAP with perceived benefit. No complaints regarding PAP. They are understanding thatuntreated NAIN could provoke cognitive decline as well as act as a stroke risk factor. Discussed with patient: the physiology of OSAS, medical conditions associated with OSAS (DM, HTN, CAD, Depression, Stroke, Headache...) and treatment options (UPPP, Dental appliances, CPAP...). Advised patient to a void activities that could harm self or others when tired/sleepy, including driving and/or operating heavy machinery. Encouraged weight loss, and continued compliance with other medications. 3. History of CVA (cerebrovascular accident) - ICD9: V12.54, ICD10: Z86.73 At this time, continue on ASA and statin as taking. No prior vascular studies besides carotid dopplers and thus will get MRAs of head and neck to complete workup. Will continue ASA and statin. BP goal <140/90. Glucose goal <140. 4. Altered mental status, unspecified altered mental status type - ICD9: 780.97, ICD10: R41.82 5. Transient cerebral ischemia, unspecified type - ICD9: 435.9, ICD10: G45.9 6. Seizure (HCC) - ICD9: 780.39, ICD10: R56.9 Episode of AMS late last year of uncertain etiology. Appears infectious and metabolic causes ruled out from available records. Thus, need to consider possible TIA or stroke as well as seizure. To further evaluate will get MRI brain to determine if a new stroke is present not seen on prior imaging. Will also get MRA head and carotids to evaluate for large vessel disease as possible cause of TIA. No prior imaging of such available for review. Will also get EEG to evaluate for epileptiform abnormalities or other changes to suggest pt prone for seizure. Further plan to be determined once these results known. Shaye Kitchen MD CHIEF COMPLAINT: follow up HISTORY OF PRESENT ILLNESS: Lory Johnson is a 78 year old male, Ht 175.3 cm (5' 9) BMI 31.6 kg/m2 with a PMH significant for HLD, HTN, CAD, NAIN, GERD, prostate cancer, anemia, CVA. Patient was last seen by Dr. Kitchen on for dementia follow-up, CVA follow-up. Reporting an episode of altered mental status that happened late last year with unknown etiology. There is concernfor possible TIA versus seizure. EEG did not show epileptiform changes concerning for seizure disorder. Patient presents with his for follow-up appointment. History primarily provided through the . No change since last visit, present today to review testing that was done. No falls since last visit, no seizure-like activity, no altered mental status, no new neurologic concerns. Memory has been stable, no new concerns today. Patient is continuing to do puzzles and going for walks with his . Appetite is stable, no weight changes. Does not drink much water throughout the day. No concernsfor safety at home. Patient does not drive, notes that she does stay with him while he is bathing. No behavioral changes, agitation. REVIEW OF SYSTEMS GENERAL:No weight loss, malaise or fevers. HEENT:Negative for frequent or significant headaches, No changes in hearing or vision, no nose bleeds or other nasal problems NECK:Negative for lumps, goiter, pain and significant neck swelling RESPIRATORY: Negative for cough, wheezing or shortness of breath. CARDIOVASCULAR: Negative for chest pain, leg swelling or palpitations. GASTROINTESTINAL: Negative for abdominal discomfort, blood in stools or black stools or change in bowel habits GENITOURINARY: No history of dysuria, frequency or incontinence MUSCULOSKELETAL: Negative for joint pain or swelling, back pain or muscle pain. NEUROLOGIC:Negative for focal numbness or weakness, headaches and dizziness or syncope, vision changes, speech/languag changes - EXCEPT that as per HPI above. SKIN:Negative for lesions, rash, and itching. PSYCHIATRIC: Negative for sleep disturbance, mood disorder and recent psychosocial stressors. HEMATOLOGIC/LYMPHATIC/IMMUNOLOGIC:Negative for prolonged bleeding, bruising easily or swollen nodes. ENDOCRINE: Negative for cold or heat intolerance, polyuria, polydipsia and goiter. The remainder of the ROS was reviewed and is negative. LAB/IMAGING: Those performed since patient's last visit have been reviewed. MRI, MRA head and neck 12/23/23 IMPRESSION: No acute intracranial process. No high-grade stenosis or occlusion of the intracranial or extracranial arteries. EEG 01/06/24 Impression: This EEG suggests cerebral dysfunction with potential epileptogenicity in the bifrontocentral regions more on the right. There is also evidence of a mild encephalopathy. No EEG seizures were seen during this recording. MEDICATIONS: pantoprazole DR (PROTONIX) 40 mg tablet Take 1 tablet by mouth daily before breakfast. Take on empty stomach, 1/2 hr before meal. umeclidinium-vilanterol (ANORO ELLIPTA) 62.5-25 mcg/actuation inhaler Inhale 1 Inhalation as instructed once daily. VITAMIN B COMPLEX-100 ORAL Take by mouth. ubidecarenone/vitamin E mixed (COQ10 SG 100 ORAL) Take by mouth. memantine (NAMENDA) 10 mg tablet Take 1 tablet by mouth two times a day. losartan (COZAAR) 100 mg tablet Take 1 tablet by mouth once daily. amLODIPine (NORVASC) 10 mg tablet Take 1 tablet by mouth once daily. solifenacin (VESICARE) 5 mg tablet Take 1 tablet by mouth once daily. metoprolol succinate ER (TOPROL XL) 50 mg 24 hr tablet Take 1.5 tablets by mouth once daily. aspirin, enteric coated (ECOTRIN LOW STRENGTH) 81 mg EC tablet Take 1 tablet by mouth once daily. nitroglycerin sublingual (NITROSTAT) 0.4 mg SL tablet Dissolve 1 tablet under the tongue every 5 minutes as needed for chest pain. cholecalciferol (VITAMIN D3) 1,000 unit tab tablet Take 1,000 Units by mouth once daily. ASCORBIC ACID, VITAMIN C, ORAL Take by mouth. Cinnamon Bark 500 mg cap Take 1 capsule by mouth once daily. Blood Pressure Cuff - Home Use BLOOD PRESSURE CUFF FOR HOME USE. DAILY MULTIVITAMIN TAB Take one(1) tablet daily. donepezil (ARICEPT) 10 mg tablet Take 1 tablet by mouth daily at bedtime. (Patient not taking: Reported on 01/22/2024) pravastatin (PRAVACHOL) 80 mg tablet Take 1 tablet by mouth daily at bedtime. (Patient not taking: Reported on 01/22/2024) MELATONIN ORAL Take by mouth. (Patient not taking: Reported on 01/22/2024) HISTORIES PAST MEDICAL HISTORY Diagnosis Date 3-vessel CAD 11/03/2013 Abdominal aortic aneurysm (AAA) without rupture (HCC) 11/08/2016 US: 11/2016 2.6 x 2.4 x 2.0 cm, Repeat in a year US: 02/2018 Stable, 03/2019 US said no AAA, US 08/2020 no AAA no further studies needed. Actinic Keratoses (Premalignant AK's) 08/16/2013 Advance directive discussed with patient 03/26/2022 Discussed 03/2022 Anemia CAD S/P percutaneous coronary angioplasty 11/02/2013 Chronic left shoulder pain 06/30/2018 Dementia without behavioral disturbance (HCC) 05/15/2016 MMSE: 22 05/2016, MMSE: 06/2019, 23 Elevated fasting blood sugar 12/01/2018 Essential hypertension, benign 05/12/2006 Ex-smoker 10/31/2016 Started at age 15, up to 1 PPD quite at age 34 Fam hx-ischem heart disease 08/21/2009 Sister, mother Family history of colon cancer in father 06/09/2018 GERD without esophagitis 12/14/2018 History of CVA (cerebrovascular accident) 02/16/2018 Right posterior internal capsule Impaired driving skills 08/16/2019 Per Occupational Therapy Community Mobility and IADL report patient not safe to drive nor should hereturn to driving. Lipoma of right forearm 05/05/2017 Living will on file 03/26/2022 DPA: Refugio () Malignant neoplasm of prostate (HCC) 03/01/200802/09 PATH: Left Lobe: GS 7 ( 3+4) in 1/4 cores Right Lobe : GS 6 ( 3 +) in 3/5 cores External Beam Radiotherapy -- Dr. Rishabh Yao, Renettajuan c Villegasne follow Mixed hyperlipidemia 12/03/2002 Muscle pain, lumbar 09/26/2019 Neck pain 04/18/2019 NAIN (obstructive sleep apnea) 06/09/2018 Wearing CPAP, Per Neurology (Dr. Scott) Overactive bladder 08/01/2019 Rosacea 07/2003 S/P right coronary artery (RCA) stent placement 05/15/2017 FAMILY HISTORY Problem Relation Age of Onset Prostate Cancer Father Colon Cancer Father Dx in his 70s Heart Father Had heart issues per patient Heart Sister had bypass surgery (mid-40's) Heart Mother Had heart issues per patient Heart Brother had bypass surgery SOCIAL HISTORY Social History Tobacco Use Smoking status: Former Packs/day: 2.50 Years: 25.00 Additional pack years: 0.00 Total pack years: 62.50 Types: Cigarettes Quit date: 10/05/1978 Years since quittin.3 Smokeless tobacco: Never Tobacco comments: quit 1978 Vaping Use Vaping Use: Never used Substance Use Topics Alcohol use: No Drug use: No PHYSICAL EXAMINATION BP 144/78 Pulse 62 Ht 175.3 cm (5' 9) Wt 97 kg (213 lb 15.3 oz) SpO2 96% BMI 31.60 kg/m GENERAL EXAM: General appearance: NAD, pleasant. HEENT: NC/AT, nasal congestion absent, no oral lesions, membranes moist. NECK: No masses, supple. Lungs: Breathing comfortably Extr: Moves all extremities without difficulty Skin: Cool to touch. No rash. Psych: Quiet, flat affect NEUROLOGICAL EXAM: General: Awake, alert, oriented x3 (person,place,time), speech fluent, no dysarthria; comprehension, naming, repetition intact. Able to follow two-step commands. Repeat MoCA deferred CN: PERRL, EOMI and without nystagmus, VFF to confrontation, facial sensation and strength are normal and symmetric, hearing is intact to finger rub bilaterally, palate and tongue movements are intact and symmetric. SCM and trapezius strength normal. Motor: Normal tone, bulk and strength (5/5) bilaterally (throughout extremities x4). Reflexes: 1/4 throughout Coordination: FNF intact. No tremors. Sensation: No evidence of neglect. Gait: Narrow based and stable with normal stride and arm swing. Assessment and Plan: ASSESSMENT/PLAN: 1. 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 Patient compliant with Aricept and Namenda without any side effects. Notes he is very physically active and cognitively active. Does not have any appetite change or weight loss. No falls since last appointment. No concerns for safety, doing well at home. Repeat MoCA was deferred due to time. No changes made today, encouraged conservative therapy including increasing physical activity, cognitive activity, hydration, optimizing sleep. Patient agrees and understands. 2. Nonspecific abnormal electroencephalogram (EEG) - ICD9: 794.02, ICD10: R94.01 3. History of CVA (cerebrovascular accident) - ICD9: V12.54, ICD10: Z86.73 4. Seizure (HCC) - ICD9: 780.39, ICD10: R56.9 Patient's reporting episode of altered mental status that occurred late last year where he wasnot responding, seemed confused and had some poor strength. EMS was called and he was evaluated. Notes that he returned back to baseline. EEG was obtained from last appointment that did show epileptiform changes in the bifrontal central regions, more prominent on the right but no seizures noted. Patient denying any seizure-like activity, in agreement with this. Discussed starting an antiepileptic medication including Keppra versus lamotrigine, recent creatinine was 1.24. However, insisting on not starting any additional medications at this time, states she does not believe it is necessary as patient is not having any seizure-like activity. Discussed at length risk for seizures, and discussed seizure precautions including not bathing alone, climbing ladders, etc. Patient does notdrive. Discussed that should patient have any seizure-like activity to reach out (department, patient and family agree and understand. MRI of the brain does show tiny remote infarct in the bilateral middle frontal gyrus, new since previous imaging in 2018. MRA of the head and neck were negative for any significant stenosis or occlusion. MRI of the brain in 2018 showed small neurosurgical fusion the right posterior internal capsulethat extends into the right posterior of her ventricular white matter, concerning for possible cardioembolic source. Patient has been following with cardiology and reports that he has been doingwell. notes that patient is off of statin medications but is unsure why. Is continuing aspirin, encouraged him to follow-up with primary care to discuss restarting his statin medications. Discussed risk factors for stroke at length. 5. Altered mental status, unspecified altered mental status type - ICD9: 780.97, ICD10: R41.82 Patient and agreeable to treatment plan of care at this time, patient to follow-up with Dr. Kitchen as planned. Jessica Miramontes PA-C I spent a total of 45 minutes on the date of the service which included preparing to see the patient, [id number] patient care, completing clinical documentation, obtaining and/or reviewing separately obtained history, performing a medically appropriate examination, and counseling and educating the patient/family/caregiver. This document has been created with the use of voice recognition technology. It may contain inaccuracies: (e.g. misspellings, inaccurate syntax or word sense) that have escaped review. documented in this encounterMer[facility]04-16-2024 Miscellaneous Notes* Telephone Encounter - Judith Vanegas MA - 01/19/2024 4:40 PM EDT Copied and sent to scanning . Contacted and she would like the paperwork mailed to her. Address verified. Judith Vanegas MA * Telephone Encounter - Adama Mendoza MD - 01/19/2024 4:34 PM EDT Forms completed. Please have copy scanned into chart. * Telephone Encounter - Selena Oswald MA - 01/14/2024 11:56 AM EDT Type of form: [employer] disability benefits Form received via walk in When form is completed, Call Pt's spouse Refugio and she will pickling operator form. [phone] Form has been forwarded to Physician Desk: Dr. Mendoza. Selena Oswald MA documented in this encounterMer[facility]2024 History of Present illness Narrative* Brianna Robertson CT - 12/23/2023 7:20 AM EDT Radiology Service Progress Note PATIENT NAME: Lory Johnson DATE OF SERVICE: December 23, 2023 TIME: 7:26 AM PATIENT IDENTITY VERIFICATION COMPLETED USING TWO (2) IDENTIFIERS: Name and Date of confirmedby patient verbally and Name and Date of confirmed by identification band. FALL SCREENING: Has the patient had 2 falls in the last year or 1 fall with injury or currently using an Ambulatory Assistive Device (Walker, Cane, Wheelchair, Crutches, etc.)? Yes, Patient High Riskfor Falls What interventions were put in place to prevent falls during this visit? Yellow Falls Risk Wristband Applied and Increased Observations by Caregivers PATIENT GENDER DATA: Male PATIENT RELEVANT IMPLANT DATA REVIEWED: Yes PATIENT PRESENTS WITH AN IMPLANTABLE OR ATTACHED CLINICAL PROGRAM COORDINATOR: No RADIOLOGY DEPARTMENT: MR; Exam(s) Completed: Head: Routine Brain [place] MRA Neck: Carotids MRA, bilateral PERIPHERAL IV DATA: Not applicable SIGNED BY: ARETHA Carrasco December 23, 2023 7:26 AM documented in this encounterMercy [facility]2024 NoteHNO ID: [id number] Author: BRIANNA ROBERTSON CT Service: Radiology Author Type: Technologist Type: Progress Notes Filed: 12/23/2023 07:28 Note Text: Radiology Service Progress Note PATIENT NAME: Lory Johnson DATE OF SERVICE: December 23, 2023 TIME: 7:26 AM PATIENT IDENTITY VERIFICATION COMPLETED USING TWO (2) IDENTIFIERS: Name and Date of confirmed by patient verbally and Name and Date of confirmed by identification band. FALL SCREENING: Has the patient had 2 falls in the last year or 1 fall with injury or currently using an Ambulatory Assistive Device (Walker, Cane, Wheelchair, Crutches, etc.)? Yes, Patient High Risk for Falls What interventions were put in place to prevent falls during this visit? Yellow Falls Risk Wristband Applied and Increased Observations by Caregivers PATIENT GENDER DATA: Male PATIENT RELEVANT IMPLANT DATA REVIEWED: Yes PATIENT PRESENTS WITH AN IMPLANTABLE OR ATTACHED CLINICAL PROGRAM COORDINATOR: No RADIOLOGY DEPARTMENT: MR; Exam(s) Completed: Head: Routine Brain [place] MRA Neck: Carotids MRA, bilateral PERIPHERAL IV DATA: Not applicable SIGNED BY: ARETHA Carrasco December 23, 2023 7:26 AMWexner Medical [id number] Miscellaneous Notes* Telephone Encounter - Stephany Suarez MD - 12/16/2023 11:47 AM EDT Spoke to regarding breathing tests. No need for oxygen with activity. PFT shows moderate obstruction. Will start LAMA/LABA. documented in this encounterMercy [facility]03-12-2024 Procedure note* Sara Mazariegos RPFT - 12/15/2023 10:03 AM EDTAssociated Order(s): OXIMETRY WITH AMBULATION RESPIRATORY THERAPY OXIMETRY WITH AMBULATION Oximetry with Ambulation Test for This Encounter O2 Device O2 Adapter NC O2 Flow SpO2% HR Activity Ft Walked (ft) Time (min) Avg Speed (MPH) R/A 98 57 Resting R/A 93 69 Walking, usual pace 405 3 1.53 R/A 92 71 Walking, fastest pace 525 3 1.99 General Information Pulse Oximetry Site Total Time Spent Walking Assistance/O2 Supply Carrier L Index Finger 30 None NAME: DEBRA Candelario PATIENT NAME: Lory Johnson DATE: December 15, 2023 TIME: 10:03 AM Comment: documented in this encounterMercy [facility]03-12-2024 History of Present illness Narrative* Sara Mazariegos RPFT - 12/15/2023 9:58 AM EDT PULM FUNCTION SMARTBLOCK: Provider: Stephany Suarez MD Assisting Tech: Sara Mazariegos RPFT Spirometry w/BD: 1 DLCO: 1 LV - Box: 1 Oximetry - Ambulation: 1 documented in this encounterMercy Health [facility]02-16-2024 History of Present illness Narrative* Shaye Kitchen Jr., MD - 11/20/2023 2:33 PM EST NEW PATIENT (CONSULT) HISTORY AND PHYSICAL EXAM PRIMARY CARE PHYSICIAN: Adama Mendoza MD REASON FOR CONSULT: AMS REFERRING PHYSICIAN: Adama Mendoza MD CHIEF COMPLAINT: Im not sure why we are here per wie Consultation requested by Adama Mendoza MD for an opinion regarding chief complaint of Patient presents with: New Patient: Pt presented with reported Hx dementia. and my final recommendations will be communicated back to the requesting physician by way of sharedmedical record or letter via [place] mail. HISTORY OF PRESENT ILLNESS: Lory Johnson is a 78 year old male, BMI 32.03 kg/m2 with a PMH significant for dementia dx and stroke in 2018. Diagnosis of dementia made at the actual time of stroke. Pt's feels stroke added to cognitive issues that were already there. Pt has now been on Aricpet and Nameda for a couple years - Rx'd by Dr. Mendoza. The latter was Rx'd as patient appeared to be getting more forgetful. No residual deficits from the stroke. Works puzzles regularly. Independentat home, but on further discussion needing assist with tasks and cannot make meal for himself. No longer driving. Pt referred due to episode 2 months ago - states woke up in the AM but did not want to get up stating he did not feel good, wouldn't ope eyes, wouldn't speak, and finally came out of it. Per Dr. Mendoza's note: Patient was seen in [facility] ER on 09/26/2023 with c/o altered mental status. His labs including CBC, CMP and UA were all unremarkable. Heat CT was neg for acute changes. Chest x-ray per ER provider within normal limits but per radiology noted mild patchy opacities in the upper lobes with mild pleural effusions or plural scaring with suspicion for calcified plural plaques and CT was suggested. Pt was sent home from ER. Episode lasted maybe 2-3 hours. Note on ASA and statin since stroke. On PAP for NAIN - compliance report reviewed and AHI normlaizedwith confirmed compliance per 89/90 days use for 5+ hours per night. No PAP issues. Regarding stroke, notes of Ángela Meraz PA-C: On 02/10/18 Patient went to ER for confusion and was found to have a subacute linear lacunar ischemicinfarct on R side. He was discharged on 02/13/18. He is currently in Speech therapy and is following with Dr. Scott (neuro) once a week until cleared. His initial CT scan in ER was unremarkable and Had impatient MRI that showed the early subacute infarct in R posterior internal capsule expanding to R posterior periventricular white matter. MRA neck and head unremarkable Cardiac workup unremarkable. Labs without significant findings- hgb of 12.7 and triglycerides at 256. Follows with [facility] heart group - Dr. Morton. Modified MOCA: Immediate recall: 5/5 Number repeat: 2/2 Sentence repeat: 2/2 Serial 7s: 0/3 Abstract: 0/2 Orientation: 2017 Biden 10/10 Delayed recall: 0/5 Namin/3 Cube copy: 0/1 Clock drawin/3 No definite family history of dementia. TSH Date Value Ref Range Status 03/26/2022 3.260 0.270 - 4.200 mIU/L Final Vitamin B12 Date Value Ref Range Status 04/02/2023 744 232 - 1,245 pg/mL Final REVIEW OF SYSTEMS GENERAL:No weight loss, malaise or fevers. HEENT:Negative for frequent or significant headaches, No changes in hearing or vision, no nose bleeds or other nasal problems NECK:Negative for lumps, goiter, pain and significant neck swelling RESPIRATORY: Negative for cough, wheezing or shortness of breath. CARDIOVASCULAR: Negative for chest pain, or palpitations. GASTROINTESTINAL: Negative for abdominal discomfort, blood in stools or black stools or change in bowel habits GENITOURINARY: No history of dysuria, frequency or incontinence MUSCULOSKELETAL: Negative for joint pain or swelling, back pain or muscle pain. NEUROLOGIC:Negative for focal numbness or weakness, headaches and dizziness or syncope, vision changes, speech/language changes, changes in gait or falls -- besides those complaints as above in HPI. SKIN:Negative for lesions, rash, and itching. PSYCHIATRIC: Negative for sleep disturbance, mood disorder and recent psychosocial stressors. HEMATOLOGIC/LYMPHATIC/IMMUNOLOGIC:Negative for prolonged bleeding, bruising easily or swollen nodes. ENDOCRINE: Negative for cold or heat intolerance, polyuria, polydipsia and goiter. The remainder of the ROS was reviewed and is negative. LAB/IMAGING: Reviewed and include: WBC (k/uL) Date Value 06/23/2023 7.40 RBC (m/uL) Date Value 06/23/2023 4.46 Hemoglobin (g/dL) Date Value 06/23/2023 13.2 Hematocrit (%) Date Value 06/23/2023 40.4 MCV (fL) Date Value 06/23/2023 90.6 MCH (pg) Date Value 06/23/2023 29.6 MCHC (g/dL) Date Value 06/23/2023 32.7 RDW-CV (%) Date Value 06/23/2023 12.7 Platelet Count (k/uL) Date Value 06/23/2023 179 MPV (fL) Date Value 06/23/2023 10.9 Glucose (mg/dL) Date Value 10/08/2023 110 (H) BUN (mg/dL) Date Value 10/08/2023 13 Creatinine (mg/dL) Date Value 10/08/2023 1.24 (H) Sodium (mmol/L) Date Value 10/08/2023 142 Potassium (mmol/L) Date Value 10/08/2023 4.1 Chloride (mmol/L) Date Value 10/08/2023 106 (H) CO2 (mmol/L) Date Value 10/08/2023 25 Protein, Total (g/dL) Date Value 06/23/2023 7.2 Albumin (g/dL) Date Value 06/23/2023 3.6 (L) Calcium, Total (mg/dL) Date Value 10/08/2023 9.7 Alkaline Phosphatase (U/L) Date Value 06/23/2023 69 Bilirubin, Total (mg/dL) Date Value 06/23/2023 0.4 AST (U/L) Date Value 06/23/2023 28 ALT (U/L) Date Value 06/23/2023 28 MEDICATIONS: VITAMIN B COMPLEX-100 ORAL Take by mouth. ubidecarenone/vitamin E mixed (COQ10 SG 100 ORAL) Take by mouth. memantine (NAMENDA) 10 mg tablet Take 1 tablet by mouth two times a day. donepezil (ARICEPT) 10 mg tablet Take 1 tablet by mouth daily at bedtime. pravastatin (PRAVACHOL) 80 mg tablet Take 1 tablet by mouth daily at bedtime. losartan (COZAAR) 100 mg tablet Take 1 tablet by mouth once daily. amLODIPine (NORVASC) 10 mg tablet Take 1 tablet by mouth once daily. solifenacin (VESICARE) 5 mg tablet Take 1 tablet by mouth once daily. metoprolol succinate ER (TOPROL XL) 50 mg 24 hr tablet Take 1.5 tablets by mouth once daily. aspirin, enteric coated (ECOTRIN LOW STRENGTH) 81 mg EC tablet Take 1 tablet by mouth once daily. nitroglycerin sublingual (NITROSTAT) 0.4 mg SL tablet Dissolve 1 tablet under the tongue every 5 minutes as needed for chest pain. cholecalciferol (VITAMIN D3) 1,000 unit tab tablet Take 1,000 Units by mouth once daily. ASCORBIC ACID, VITAMIN C, ORAL Take by mouth. Cinnamon Bark 500 mg cap Take 1 capsule by mouth once daily. Blood Pressure Cuff - Home Use BLOOD PRESSURE CUFF FOR HOME USE. DAILY MULTIVITAMIN TAB Take one(1) tablet daily. MELATONIN ORAL Take by mouth. (Patient not taking: Reported on 10/12/2023) HISTORIES PAST MEDICAL HISTORY Diagnosis Date 3-vessel CAD 11/03/2013 Abdominal aortic aneurysm (AAA) without rupture (HCC) 11/08/2016 US: 11/2016 2.6 x 2.4 x 2.0 cm, Repeat in a year US: 02/2018 Stable, 03/2019 US said no AAA, US 08/2020 no AAA no further studies needed. Actinic Keratoses (Premalignant AK's) 08/16/2013 Advance directive discussed with patient 03/26/2022 Discussed 03/2022 Anemia CAD S/P percutaneous coronary angioplasty 11/02/2013 Chronic left shoulder pain 06/30/2018 Dementia without behavioral disturbance (HCC) 05/15/2016 MMSE: 22 05/2016, MMSE: 06/2019, 23 Elevated fasting blood sugar 12/01/2018 Essential hypertension, benign 05/12/2006 Ex-smoker 10/31/2016 Started at age 15, up to 1 PPD quite at age 34 Fam hx-ischem heart disease 08/21/2009 Sister, mother Family history of colon cancer in father 06/09/2018 GERD without esophagitis 12/14/2018 History of CVA (cerebrovascular accident) 02/16/2018 Right posterior internal capsule Impaired driving skills 08/16/2019 Per Occupational Therapy Community Mobility and IADL report patient not safe to drive nor should hereturn to driving. Lipoma of right forearm 05/05/2017 Living will on file 03/26/2022 DPA: Refugio () Malignant neoplasm of prostate (HCC) 03/01/200802/09 PATH: Left Lobe: GS 7 ( 3+4) in 1/4 cores Right Lobe : GS 6 ( 3 +) in 3/5 cores External Beam Radiotherapy -- Dr. Rishabh Yao, Renetta Landry follow Mixed hyperlipidemia 12/03/2002 Muscle pain, lumbar 09/26/2019 Neck pain 04/18/2019 NAIN (obstructive sleep apnea) 06/09/2018 Wearing CPAP, Per Neurology (Dr. Scott) Overactive bladder 08/01/2019 Rosacea 07/2003 S/P right coronary artery (RCA) stent placement 05/15/2017 FAMILY HISTORY Problem Relation Age of Onset Prostate Cancer Father Colon Cancer Father Dx in his 70s Heart Father Had heart issues per patient Heart Sister had bypass surgery (mid-40's) Heart Mother Had heart issues per patient Heart Brother had bypass surgery SOCIAL HISTORY Social History Tobacco Use Smoking status: Former Packs/day: 2.50 Years: 25.00 Additional pack years: 0.00 Total pack years: 62.50 Types: Cigarettes Quit date: 10/05/1978 Years since quittin.1 Smokeless tobacco: Never Tobacco comments: quit 1978 Vaping Use Vaping Use: Never used Substance Use Topics Alcohol use: No Drug use: No PHYSICAL EXAMINATION BP 116/60 Pulse (!) 58 Resp 16 Wt 94.2 kg (207 lb 9.6 oz) SpO2 96% BMI 32.03 kg/m GENERAL EXAM: General appearance: NAD, flat affect, masked facies. HEENT: NC/AT, nasal congestion absent, no oral lesions, membranes moist. NECK: ROM nml. Lungs: CTA bilaterally. CV: RRR nl S1, S2. No carotid bruits. Abd: Soft, nontender, nondistended. Bowel sounds present. Extr: No cyanosis, clubbing or edema. No evidence of fasciculations. Extremity pulses palpable and normal. Skin: Cool to touch. No rash. NEUROLOGICAL EXAM: General: Awake, alert, fluent, no dysarthria; MOCA as above. Paucity of words with providing most of history. CN: PERRL, fundi with no evidence of papilledema, EOMI and without nystagmus, VFF to confrontation,facial sensation and strength are normal and symmetric, hearing is intact to finger rub bilaterally, palate and tongue movements are intact and symmetric. SCM and trapezius strength symmetric. Motor: Normal tone, bulk and strength (5/5) bilaterally (throughout extremities x4). Coordination: FNF, ESAU, HTS intact. No tremors. Sensation: Light touch and vibration intact throughout. No evidence of neglect. Gait: Stable with normal stride and arm swing. Assessment and Plan: ASSESSMENT/PLAN: 1. Dementia without behavioral disturbance (HCC) - ICD9: 294.20, ICD10: F03.90 (primary diagnosis) Patient with known history of dementia. Prior imaging studies reviewed and while on evidence of acute intracranial process contributing to dementia, patient with temp lobe atrophy and generalized atrophy suggestive of a neurodegenerative process. Ddx d/w pt. Metabolic causes previously ruled out and no history of depression as a provoking factor. While history of stroke, pattern of cognitive decline not suggestive of vascular dementia. Again, suspect neurodegenerative process. Patient already on maximum therapies of both Aricept and Namenda at this time. D/w pt and newer therapies (infusion) but they would not want nor given cognitive deficits on MOCA would I feel pt an appropriate candidate even if Alzheimer's confirmed with CSF evaluation. No changes in therapy at this time. Encouraged brain exercises. D/w pt and precautions to take at home and safety measures. 2. NAIN (obstructive sleep apnea) - ICD9: 327.23, ICD10: G47.33 Compliant with PAP with perceived benefit. No complaints regarding PAP. They are understanding thatuntreated NAIN could provoke cognitive decline as well as act as a stroke risk factor. Discussed with patient: the physiology of OSAS, medical conditions associated with OSAS (DM, HTN, CAD, Depression, Stroke, Headache...) and treatment options (UPPP, Dental appliances, CPAP...). Advised patient to a void activities that could harm self or others when tired/sleepy, including driving and/or operating heavy machinery. Encouraged weight loss, and continued compliance with other medications. 3. History of CVA (cerebrovascular accident) - ICD9: V12.54, ICD10: Z86.73 At this time, continue on ASA and statin as taking. No prior vascular studies besides carotid dopplers and thus will get MRAs of head and neck to complete workup. Will continue ASA and statin. BP goal <140/90. Glucose goal <140. 4. Altered mental status, unspecified altered mental status type - ICD9: 780.97, ICD10: R41.82 5. Transient cerebral ischemia, unspecified type - ICD9: 435.9, ICD10: G45.9 6. Seizure (HCC) - ICD9: 780.39, ICD10: R56.9 Episode of AMS late last year of uncertain etiology. Appears infectious and metabolic causes ruled out from available records. Thus, need to consider possible TIA or stroke as well as seizure. To further evaluate will get MRI brain to determine if a new stroke is present not seen on prior imaging. Will also get MRA head and carotids to evaluate for large vessel disease as possible cause of TIA. No prior imaging of such available for review. Will also get EEG to evaluate for epileptiform abnormalities or other changes to suggest pt prone for seizure. Further plan to be determined once these results known. Shaye Kitchen MD I spent a total of 45+ minutes on the date of the service which included preparing to see the patient, [id number] patient care, completing clinical documentation, obtaining and/or reviewing separately obtained history, performing a medically appropriate examination, counseling and educating the pa tient/family/caregiver, ordering medications, tests, or procedures, independently interpreting results (not separately reported), and communicating results to the patient/family/caregiver. * Soni Roberts LPN - 11/20/2023 2:11 PM EST documented in this encounterMer[facility]02-06-2024 Miscellaneous Notes* Telephone Encounter - Judith Vanegas MA - 11/10/2023 10:28 AM EST Faxed Oximetry and PSG to [facility] Judith Vanegas MA * Telephone Encounter - Judith Vanegas MA - 11/09/2023 4:26 PM EST Waiting to check with Dr. Mnedoza on those results so that we can send to [facility]. Judith Vanegas MA * Telephone Encounter - Adama Mendoza MD - 11/09/2023 3:40 PM EST Let [facility] know I have a night time pulse oximetry test while Lory was on CPAP that shows his )2 is dropping below 89%. Can we get his set up with O2 hookup on his CPAP? * Telephone Encounter - Christi Roberts LPN - 11/09/2023 2:16 PM EST Per pt's test was done while on C-pap. Pt does not see a sleep specialist. Pt goes thru Dr. Mendoza. Christi Roberts LPN * Telephone Encounter - Chavez Plata LPN - 11/09/2023 1:53 PM EST Left message for pt's to contact office. Chavez Plata LPN * Telephone Encounter - Adama Mendoza MD - 11/09/2023 12:48 PM EST Find out if is aware if his pulse ox-test at night by JAZIEL was done with the CPAP on or off? Also does he see a sleep specialist for his sleep apnea? * Telephone Encounter - Judith Vanegas MA - 11/09/2023 9:10 AM EST indicated that patient does wear the CPAP at night time. There are nights that she will find it laying by the bed. Patient does have dementia so sometimes he doesn't understand to keep it on. She feels that he is doing pretty good. Judith Vanegas MA * Telephone Encounter - Adama Mendoza MD - 11/06/2023 4:11 PM EST Find out from if Tom is wearing his CPAP at night? If so does he see a sleep specialist. documented in this encounterMer[facility]01-28-2024 Miscellaneous Notes* Telephone Encounter - Adama Mendoza MD - 11/01/2023 8:24 PM EST The following approved medication requests have been transmitted electronically. Requested Prescriptions Signed Prescriptions Disp Refills memantine (NAMENDA) 10 mg tablet 180 tablet 1 Sig: Take 1 tablet by mouth two times a day. Authorizing Provider: ADAMA MENDOZA MD * Telephone Encounter - Hilda Bravo LPN - 10/31/2023 9:20 AM EST Patient has been identified by name and date of : Yes, Provider Dr. MendozaSpdolly phones for refill(s): Requested Prescriptions Pending Prescriptions Disp Refills memantine (NAMENDA) 10 mg tablet 180 tablet 1 Sig: Take 1 tablet by mouth two times a day. Date of last office visit in primary care: 10/12/2023 Date of next office visit in primary care: 04/11/2024 Please advise. Thank you. Hilda Bravo LPN. documented in this encounterMer[facility]12-01-2023 Miscellaneous Notes* Telephone Encounter - Adama Mendoza MD - 09/04/2023 8:35 AM EST The following approved medication requests have been transmitted electronically. Requested Prescriptions Signed Prescriptions Disp Refills amLODIPine (NORVASC) 10 mg tablet 90 tablet 1 Sig: Take 1 tablet by mouth once daily. Authorizing Provider: ADAMA MENDOZA MD * Telephone Encounter - Christi Roberts LPN - 09/04/2023 8:01 AM EST Patient has been identified by name and date of : Yes, Provider Dr. Mendoza Date 09/04/23 Time 8:01 AM Patient phones for refill(s): Requested Prescriptions Pending Prescriptions Disp Refills amLODIPine (NORVASC) 10 mg tablet 90 tablet 1 Sig: Take 1 tablet by mouth once daily. Date of last office visit in primary care: 07/14/2023 Date of next office visit in primary care: 10/12/2023 Last 2 Encounter Wt Readings: Date: Wt: 07/14/2023 94.3 kg (208 lb) 06/23/2023 97.1 kg (214 lb) Previous labs/tests for medication: Blood Pressure: BUN (mg/dL) Date Value 06/23/2023 16 02/18/2021 10 Sodium (mmol/L) Date Value 06/23/2023 142 02/18/2021 142 Last 1 Encounter BP Readings: Date: BP: 07/14/2023 122/68 Thank you. Christi Roberts LPN. * Telephone Encounter - Avis Theodore - 09/03/2023 10:27 AM EST Patient has been identified by name and date of : Yes Requested Prescriptions Pending Prescriptions Disp Refills amLODIPine (NORVASC) 10 mg tablet 90 tablet 1 Sig: Take 1 tablet by mouth once daily. RX INSTRUCTIONS: Patient aware RX will be sent to pharmacy. No need to notify patient. Avis Salazar documented in this encounterMer[facility]10-10-2023 History of Present illness Narrative* Adama Mendoza MD - 07/14/2023 2:40 PM EDT Chief Complaint Patient presents with: Follow Up HPI Lory Johnson is a 78 year old male who presents here today for 2 week follow up on COVID. Patient seen in [facility] on 06/17/2023 and was COVID positive and had ER follow up on 06/23/[address] Mendoza. Patient is here today to follow up. How is patient feeling? Feeling better, no shortness of breath or chest tightness. No fevers. Appetite is good. Cough? Cough has gotten better. Sinus congestion: None Per his level of confusion has returned back to base line. Past medical history, appointments, medications, allergies reviewed. Previous Medical History PAST MEDICAL HISTORY Diagnosis Date 3-vessel CAD 11/03/2013 Abdominal aortic aneurysm (AAA) without rupture (HCC) 11/08/2016 US: 11/2016 2.6 x 2.4 x 2.0 cm, Repeat in a year US: 02/2018 Stable, 03/2019 US said no AAA, US 08/2020 no AAA no further studies needed. Actinic Keratoses (Premalignant AK's) 08/16/2013 Advance directive discussed with patient 03/26/2022 Discussed 03/2022 Anemia CAD S/P percutaneous coronary angioplasty 11/02/2013 Chronic left shoulder pain 06/30/2018 Dementia without behavioral disturbance (HCC) 05/15/2016 MMSE: 22 05/2016, MMSE: 06/2019, 23 Elevated fasting blood sugar 12/01/2018 Essential hypertension, benign 05/12/2006 Ex-smoker 10/31/2016 Started at age 15, up to 1 PPD quite at age 34 Fam hx-ischem heart disease 08/21/2009 Sister, mother Family history of colon cancer in father 06/09/2018 GERD without esophagitis 12/14/2018 History of CVA (cerebrovascular accident) 02/16/2018 Right posterior internal capsule Impaired driving skills 08/16/2019 Per Occupational Therapy Community Mobility and IADL report patient not safe to drive nor should hereturn to driving. Lipoma of right forearm 05/05/2017 Living will on file 03/26/2022 DPA: Refugio () Malignant neoplasm of prostate (HCC) 03/01/200802/09 PATH: Left Lobe: GS 7 ( 3+4) in 1/4 cores Right Lobe : GS 6 ( 3 +) in 3/5 cores External Beam Radiotherapy -- Dr. Rishabh Yao, Renetta Landry follow Mixed hyperlipidemia 12/03/2002 Muscle pain, lumbar 09/26/2019 Neck pain 04/18/2019 NAIN (obstructive sleep apnea) 06/09/2018 Wearing CPAP, Per Neurology (Dr. Scott) Overactive bladder 08/01/2019 Rosacea 07/2003 S/P right coronary artery (RCA) stent placement 05/15/2017 Previous Surgical History PAST SURGICAL HISTORY Procedure Laterality Date 2D ECHO (EXEP) 02/11/2018 EF=65%, mild jain dysf, mildly enlarged LA, 2D ECHO (EXEP) 10/03/2020 EF=65%, mild Jain dysfunction, COLONOSCOPY FLX DX W/COLLJ SPEC WHEN PFRMD 02/2002 Colonoscopy COLONOSCOPY FLX DX W/COLLJ SPEC WHEN PFRMD 09/14/2007 normal COLONOSCOPY FLX DX W/COLLJ SPEC WHEN PFRMD 07/23/2012 normal COLONOSCOPY FLX DX W/COLLJ SPEC WHEN PFRMD 07/28/2018 Colonoscopy, repeat 5 years ESOPHAGOGASTRODUODENOSCOPY TRANSORAL DIAGNOSTIC 02/2002 EGD ESOPHAGOGASTRODUODENOSCOPY TRANSORAL DIAGNOSTIC 12/22/2002 hiatal hernia, distal esophagitis ESOPHAGOGASTRODUODENOSCOPY TRANSORAL DIAGNOSTIC 08/03/2015 EGD ESOPHAGOGASTRODUODENOSCOPY TRANSORAL DIAGNOSTIC 11/15/2015 EGD ESOPHAGOGASTRODUODENOSCOPY TRANSORAL DIAGNOSTIC 08/13/2020 EGD HEART CATHETERIZATION 2014 Angioplasty, Promus stent to right coronary LEXISCAN STRESS TEST 10/03/[address] Morton RPR UMBILICAL HRNA 5 YRS/> REDUCIBLE 2002 Family History FAMILY HISTORY Problem Relation Age of Onset Prostate Cancer Father Colon Cancer Father Dx in his 70s Heart Father Had heart issues per patient Heart Sister had bypass surgery (mid-40's) Heart Mother Had heart issues per patient Heart Brother had bypass surgery Patient Allergies ALLERGIES Allergen Reactions Zithromax [Azithrom* Itching Beta-Shravan S [Oth* Unknown Lipitor [Atorvastat* Intolerance Viagra [Sildenafil] Unknown Zetia [Ezetimibe] Mental Status Change Current Medications Current Outpatient Medications on File Prior to Visit Medication Sig amLODIPine (NORVASC) 10 mg tablet Take 1 tablet by mouth once daily. ASCORBIC ACID, VITAMIN C, ORAL Take by mouth. aspirin, enteric coated (ECOTRIN LOW STRENGTH) 81 mg EC tablet Take 1 tablet by mouth once daily. Blood Pressure Cuff - Home Use BLOOD PRESSURE CUFF FOR HOME USE. cholecalciferol (VITAMIN D3) 1,000 unit tab tablet Take 1,000 Units by mouth once daily. Cinnamon Bark 500 mg cap Take 1 capsule by mouth once daily. DAILY MULTIVITAMIN TAB Take one(1) tablet daily. donepezil (ARICEPT) 10 mg tablet Take 1 tablet by mouth daily at bedtime. losartan (COZAAR) 100 mg tablet Take 1 tablet by mouth once daily. MELATONIN ORAL Take by mouth. memantine (NAMENDA) 10 mg tablet Take one tab a day for a week then go to one twice a day. metoprolol succinate ER (TOPROL XL) 50 mg 24 hr tablet Take 1.5 tablets by mouth once daily. nitroglycerin sublingual (NITROSTAT) 0.4 mg SL tablet Dissolve 1 tablet under the tongue every 5 minutes as needed for chest pain. pravastatin (PRAVACHOL) 80 mg tablet Take 1 tablet by mouth daily at bedtime. solifenacin (VESICARE) 5 mg tablet Take 1 tablet by mouth once daily. No current facility-administered medications on file prior to visit. Social History Social History Tobacco Use Smoking status: Former Packs/day: 2.50 Years: 25.00 Additional pack years: 0.00 Total pack years: 62.50 Types: Cigarettes Quit date: 10/05/1978 Years since quittin.8 Smokeless tobacco: Never Tobacco comments: quit 1978 Vaping Use Vaping Use: Never used Substance Use Topics Alcohol use: No Drug use: No Review of Symptoms REVIEW OF SYSTEMS See HPI EXAM: BP 122/68 (BP Site: Left Arm, BP Position: Sitting, BP Cuff Size: Large Adult) Pulse (!) 58 Temp 36.5 C (97.7 F) (Tympanic) Resp 18 Wt 94.3 kg (208 lb) SpO2 98% BMI 32.10 kg/m General Appearance: Well appearing, alert, in no acute distress, well-hydrated, well nourished.. Lungs: Lungs clear to auscultation. No wheezing, rhonchi, rales.. Heart: RRR without murmur, gallop, or rubs. No ectopy. Health Maintenance List BP Controlled (<130/80) due on 03/26/2023 Influenza Vaccine(1) due on 06/05/2023 Covid-19 Vaccine( - season) due on 06/05/2023 LDL Cholesterol due on 04/02/2024 Annual PCP Team Chronic Disease Visit due on 06/23/2024 Diabetes Screening due on 06/23/2026 DTaP,Tdap,Td Vaccine(3 - Td or Tdap) due on 04/09/2028 Advance Directive Discussion Completed Shingrix Vaccine Completed Pneumococcal Vaccine: 65+ Completed Colorectal Cancer Screening Discontinued Data reviewed A/P ASSESSMENT/PLAN: 1. Bacterial pneumonia - ICD9: 482.9, ICD10: J15.9 ASSESSMENT/PLAN: 1. Bacterial pneumonia - ICD9: 482.9, ICD10: J15.9 - resolved. 2. Need for vaccination - ICD9: V05.9, ICD10: Z23 - INFLUENZA VACCINE, PRSV FREE, AGE 65+ YR, HIGH DOSE, QUADRIVALENT (FLUZONE HIGH-DOSE): given - [employer] COVID-19 VACCINE ( SEASON) AGE 12+ YR: given Adama Mendoza MD documented in this encounterMer[facility]09-25-2023 Miscellaneous Notes* Telephone Encounter - Mayi Perez LPN - 06/29/2023 1:05 PM EDT Patient notified of results, verbalizes understanding of instructions. Mayi Perez LPN * Telephone Encounter - Adama Mendoza MD - 06/29/2023 1:01 PM EDT Let know MRI did no show any new stroke. * Telephone Encounter - Chavez Plata LPN - 06/29/2023 12:40 PM EDT Received results of MRI done at [facility]. Chavez Plata LPN Scan on 06/27/2023 10:20 PM by Provider, Brandie, ISABELLE: MRI documented in this encounterMercy [facility]09-21-2023 Miscellaneous Notes* Telephone Encounter - Adama Mendoza MD - 06/25/2023 3:20 PM EDT Noted. * Telephone Encounter - Chavez Plata LPN - 06/25/2023 3:04 PM EDT Pt's notified of results, verbalized understanding. Reports that pt still has a bad cough at night. Also wanted to let Dr Mendoza know that the STAT MRI that was ordered at [facility] is scheduled for 07/04. states that was the soonest they could get in. She asked to be placed on a cancellation list. Chavez Pltaa LPN * Telephone Encounter - Adama Mendoza MD - 06/25/2023 2:39 PM EDT Let (Refugio) know blood count and the complete electrolyte panel were ok. Chest x-ray showed no further pneumonia. His urine culture is positive for infection and this could explain the persistent confusion. The antibiotic I have him on shows the bacteria is sensitive to it. So no changes needed. documented in this encounterMercy [facility]09-19-2023 Instructions* Patient Instructions* Adama Mendoza MD - 06/23/2023 9:36 AM EDT While Tom is on the levaquin (antibiotic) do not give him the Aricept (donepezil). After last antibiotic can restart the Aricept the next day. documented in this encounterMercy [facility]09-19-2023 History of Present illness Narrative* Adama Mendoza MD - 06/23/2023 9:09 AM EDT Chief Complaint Patient presents with: ER F/U: [facility] ER f/u 06/17/23 dx: COVID pneumonia HPI Lory Johnson is a 78 year old male who presents here today for Above Complaints.. Patient with Hx of dementia. Patient presented to [facility] on 06/17/2023 with due to increasing confusion. had noted increasing confusion as the day went on. She also noticed his cough to be productive (currently yellow with occasional blood). He had a fever (with a temp in the ER of 102.8). noted on the way into the building today he may of gotten slightly winded and walking slower. He is still urinating frequently and having multiple accidents during the day and night. In ER WBC was normal but Neutrophile's were elevated. Platelets were ok. Bleeding studies were normal. CMP ok except slightly elevated Creatinine at 1.36 (base line has been 1.29). Lactic acid was ok. UA was negative. CT of head showed no acute findings. Chest x-ray showed bibasilar infiltrates worse on the right. COVID swab was positive and influenza was negative. concerned that he may of had another stroke. Last time it took a MRI to see this. His confusion still seems worse then his base line. Still has a cough as above. Has not had a fever at home since being in the ER. No nausea, vomiting or diarrhea. No syncope. No Headaches. Past medical history, appointments, medications, allergies reviewed. Previous Medical History PAST MEDICAL HISTORY Diagnosis Date 3-vessel CAD 11/03/2013 Abdominal aortic aneurysm (AAA) without rupture (HCC) 11/08/2016 US: 11/2016 2.6 x 2.4 x 2.0 cm, Repeat in a year US: 02/2018 Stable, 03/2019 US said no AAA, US 08/2020 no AAA no further studies needed. Actinic Keratoses (Premalignant AK's) 08/16/2013 Advance directive discussed with patient 03/26/2022 Discussed 03/2022 Anemia CAD S/P percutaneous coronary angioplasty 11/02/2013 Chronic left shoulder pain 06/30/2018 Dementia without behavioral disturbance (HCC) 05/15/2016 MMSE: 22 05/2016, MMSE: 06/2019, 23 Elevated fasting blood sugar 12/01/2018 Essential hypertension, benign 05/12/2006 Ex-smoker 10/31/2016 Started at age 15, up to 1 PPD quite at age 34 Fam hx-ischem heart disease 08/21/2009 Sister, mother Family history of colon cancer in father 06/09/2018 GERD without esophagitis 12/14/2018 History of CVA (cerebrovascular accident) 02/16/2018 Right posterior internal capsule Impaired driving skills 08/16/2019 Per Occupational Therapy Community Mobility and IADL report patient not safe to drive nor should hereturn to driving. Lipoma of right forearm 05/05/2017 Living will on file 03/26/2022 DPA: Refugio () Malignant neoplasm of prostate (HCC) 03/01/200802/09 PATH: Left Lobe: GS 7 ( 3+4) in 1/4 cores Right Lobe : GS 6 ( 3 +) in 3/5 cores External Beam Radiotherapy -- Dr. Rishabh Yao, Renetta Landry follow Mixed hyperlipidemia 12/03/2002 Muscle pain, lumbar 09/26/2019 Neck pain 04/18/2019 NAIN (obstructive sleep apnea) 06/09/2018 Wearing CPAP, Per Neurology (Dr. Scott) Overactive bladder 08/01/2019 Rosacea 07/2003 S/P right coronary artery (RCA) stent placement 05/15/2017 Previous Surgical History PAST SURGICAL HISTORY Procedure Laterality Date 2D ECHO (EXEP) 02/11/2018 EF=65%, mild jain dysf, mildly enlarged LA, 2D ECHO (EXEP) 10/03/2020 EF=65%, mild Jain dysfunction, COLONOSCOPY FLX DX W/COLLJ SPEC WHEN PFRMD 02/2002 Colonoscopy COLONOSCOPY FLX DX W/COLLJ SPEC WHEN PFRMD 09/14/2007 normal COLONOSCOPY FLX DX W/COLLJ SPEC WHEN PFRMD 07/23/2012 normal COLONOSCOPY FLX DX W/COLLJ SPEC WHEN PFRMD 07/28/2018 Colonoscopy, repeat 5 years ESOPHAGOGASTRODUODENOSCOPY TRANSORAL DIAGNOSTIC 02/2002 EGD ESOPHAGOGASTRODUODENOSCOPY TRANSORAL DIAGNOSTIC 12/22/2002 hiatal hernia, distal esophagitis ESOPHAGOGASTRODUODENOSCOPY TRANSORAL DIAGNOSTIC 08/03/2015 EGD ESOPHAGOGASTRODUODENOSCOPY TRANSORAL DIAGNOSTIC 11/15/2015 EGD ESOPHAGOGASTRODUODENOSCOPY TRANSORAL DIAGNOSTIC 08/13/2020 EGD HEART CATHETERIZATION 2013 Angioplasty, Promus stent to right coronary LEXISCAN STRESS TEST 10/03/[address] Morton RPR UMBILICAL HRNA 5 YRS/> REDUCIBLE 2002 Family History FAMILY HISTORY Problem Relation Age of Onset Prostate Cancer Father Colon Cancer Father Dx in his 70s Heart Father Had heart issues per patient Heart Sister had bypass surgery (mid-40's) Heart Mother Had heart issues per patient Heart Brother had bypass surgery Patient Allergies ALLERGIES Allergen Reactions Zithromax [Azithrom* Itching Beta-Shravan S [Oth* Unknown Lipitor [Atorvastat* Intolerance Viagra [Sildenafil] Unknown Zetia [Ezetimibe] Mental Status Change Current Medications Current Outpatient Medications on File Prior to Visit Medication Sig pravastatin (PRAVACHOL) 80 mg tablet Take 1 tablet by mouth daily at bedtime. memantine (NAMENDA) 10 mg tablet Take one tab a day for a week then go to one twice a day. aspirin, enteric coated (ECOTRIN LOW STRENGTH) 81 mg EC tablet Take 1 tablet by mouth once daily. nitroglycerin sublingual (NITROSTAT) 0.4 mg SL tablet Dissolve 1 tablet under the tongue every 5 minutes as needed for chest pain. amLODIPine (NORVASC) 10 mg tablet Take 1 tablet by mouth once daily. losartan (COZAAR) 100 mg tablet Take 1 tablet by mouth once daily. donepezil (ARICEPT) 10 mg tablet Take 1 tablet by mouth daily at bedtime. solifenacin (VESICARE) 5 mg tablet Take 1 tablet by mouth once daily. metoprolol succinate ER (TOPROL XL) 50 mg 24 hr tablet Take 1.5 tablets by mouth once daily. cholecalciferol (VITAMIN D3) 1,000 unit tab tablet Take 1,000 Units by mouth once daily. ASCORBIC ACID, VITAMIN C, ORAL Take by mouth. Cinnamon Bark 500 mg cap Take 1 capsule by mouth once daily. Blood Pressure Cuff - Home Use BLOOD PRESSURE CUFF FOR HOME USE. DAILY MULTIVITAMIN TAB Take one(1) tablet daily. MELATONIN ORAL Take by mouth. No current facility-administered medications on file prior to visit. Social History Social History Tobacco Use Smoking status: Former Packs/day: 2.50 Years: 25.00 Additional pack years: 0.00 Total pack years: 62.50 Types: Cigarettes Quit date: 10/05/1978 Years since quittin.7 Smokeless tobacco: Never Tobacco comments: quit 1978 Vaping Use Vaping Use: Never used Substance Use Topics Alcohol use: No Drug use: No Review of Symptoms REVIEW OF SYSTEMS See HPI EXAM: BP 124/82 Pulse 66 Resp 16 Wt 97.1 kg (214 lb) SpO2 94% BMI 33.02 kg/m General Appearance: Well appearing, alert, in no acute distress, well-hydrated, well nourished.. Eyes: Anicteric sclera. Pupils are equally round and reactive to light. Extraocular movements are intact. . Ears: External ears, TM's normal, canals clear. Lungs: Lungs clear to auscultation. No wheezing, rales. Slight rhonchi in bases. . Heart: RRR without murmur, gallop, or rubs. No ectopy. Abdomen: Normal abdominal exam, Abdomen soft, non-tender. Bowel sounds normal. No masses, organomegaly. Extremities: No deformities, edema, skin discoloration, Good capillary refill. . Health Maintenance List Covid-19 Vaccine(5 - Pfizer series) due on 12/20/2022 Influenza Vaccine(1) due on 06/05/2023 LDL Cholesterol due on 04/02/2024 Annual PCP Team Chronic Disease Visit due on 04/30/2024 BP Controlled (<130/80) due on 04/30/2024 Diabetes Screening due on 04/30/2026 DTaP,Tdap,Td Vaccine(3 - Td or Tdap) due on 04/09/2028 Advance Directive Discussion Completed Shingrix Vaccine Completed Pneumococcal Vaccine: 65+ Completed Colorectal Cancer Screening Discontinued Data reviewed ER records from [facility] reviewed. A/P ASSESSMENT/PLAN: 1. COVID-19 - ICD9: 079.89, ICD10: U07.1 (primary diagnosis) Check - XR CHEST 2V FRONTAL/LAT 2. Bacterial pneumonia - ICD9: 482.9, ICD10: J15.9 Check - XR CHEST 2V FRONTAL/LAT - COMP METABOLIC PANEL - URINALYSIS, WITH MICROSCOPIC - CBC + DIFF - Tx with Levaquin 500 mg a d ay for 10 days. ( to hol the Aricept while on this) 3. Urinary incontinence, unspecified type - ICD9: 788.30, ICD10: R32 Check - URINALYSIS, WITH MICROSCOPIC - URINE CULTURE - MRI BRAIN WO IVCON 4. Altered mental status, unspecified altered mental status type - ICD9: 780.97, ICD10: R41.82 Check - COMP METABOLIC PANEL - URINALYSIS, WITH MICROSCOPIC - URINE CULTURE - MRI BRAIN WO IVCON 5. History of CVA (cerebrovascular accident) - ICD9: V12.54, ICD10: Z86.73 Check - MRI BRAIN WO IVCON 6. Other specified transient cerebral ischemias - ICD9: 435.8, ICD10: G45.8 Patient with acute sudden worsening of base line confusion. CT of brain in ER was negative for acute findings. Has Hx of CVA in the right posterior internal capsule that was not found till MRI done. - MRI BRAIN WO IVCON Requested Prescriptions Signed Prescriptions Disp Refills levoFLOXacin (LEVAQUIN) 500 mg tablet 10 tablet 0 Sig: Take 1 tablet by mouth once daily for 10 days. F/u in 2 weeks for recheck I spent a total of 37 minutes on the date of the service which included preparing to see the patient, [id number] patient care, completing clinical documentation, performing a medically appropriate examination, counseling and educating the patient/family/caregiver and ordering medications, tests, or procedures. Adama Mendoza MD documented in this encounterMer[facility]09[facility] Discharge summary Author Harshil Rondon [facility] June 17, 2023 3:34pm Note Date/Time June 17, 2023 2:06pm [facility] Medical Records Department [address] [place] [address] Emergency Department Summary 06/17/23 MR#: [id number] Acct: [id number] Name: LORY JOHNSON Rep #:[id number] : 1945 78 From: Harshil Rondon MD PCP: Dr. Adama Mendoza MD Status:REG ER Location: ED HPI History of Present Illness Chief Complaint: Confusion Onset/Context/Timing Onset: Today Narrative Narrative: 78 year-old male with his via EMS with confusion that she noticed today. He has past medical history of dementia and remote CVA in 2018. He also has hypertension and hyperlipidemia, presents with confusion that she noticed a few hours ago. He was acting strangely. It may have started even earlier than that, when he woke up this morning. She states that he was having bizarre behavior and seemed more confused. They went to the [facility] last evening, and were walking around, she thinks he may be tired from that as well. She noticed that throughout the night he has been coughing, and bringing up phlegm, and had a fever. He last received Tylenol 8 hours ago. She states thathe takes a blood thinner because he has a stent in his heart and has coronary artery disease as well. [facility] Medical History Abdominal aortic aneurysm (AAA) Abnormal nuclear stress test Actinic keratoses Anemia Atherosclerotic heart disease of [place] coronary artery without angina pectoris Dementia Essential (primary) hypertension GERD (gastroesophageal reflux disease) HLD (hyperlipidemia) Ischemic cerebrovascular accident (CVA) (02/10/18) OAB (overactive bladder) Obesity Obstructive sleep apnea Old inferior wall myocardial infarction Prostate cancer Rosacea Home Medications multivitamin 1 tab PO DAILY vitamin 10/04/13 [History Last Taken 02/09/18] metoprolol succinate 50 mg tablet,extended release 24 hr 75 mg PO DAILY bp 02/10/18 [History Last Taken 10/15/20] pravastatin 80 mg tablet 80 mg PO QHS cholesterol 02/10/18 [History Last Taken 02/09/18] losartan 100 mg tablet 100 mg PO DAILY bp ##0 02/12/18 [Rx Last Taken 10/15/20] aspirin 81 mg chewable tablet 81 mg PO DAILY@0800 03/03/20 [History Last Taken 10/15/20] solifenacin 5 mg tablet 5 mg PO DAILY 08/17/20 [History Last Taken Unknown] amlodipine 10 mg tablet 10 mg PO DAILY 09/11/20 [History Last Taken 10/15/20] cinnamon bark 500 mg capsule 500 mg PO DAILY 09/11/20 [History Last Taken Unknown] donepezil 10 mg tablet 10 mg PO QHS 09/11/20 [History Last Taken Unknown] nitroglycerin 0.4 mg sublingual tablet 0.4 mg sublingual Q5-15M PRN Cardiac/Chest Pain 09/11/20 [History Last Taken Unknown] pantoprazole 40 mg tablet,delayed release 40 mg PO DAILY 09/11/20 [History Last Taken Unknown] alpha lipoic acid 200 mg capsule 200 mg PO DAILY 09/12/21 [History Last Taken Unknown] ascorbate calcium (vitamin C) 500 mg tablet 500 mg PO DAILY 09/12/21 [History Last Taken Unknown] memantine 5 mg tablet 5 mg PO BID 02/03/23 [History Last Taken Unknown] Allergy/AdvReac Type Severity Reaction Status Date / Time atorvastatin [From Lipitor] Allergy PT UNSURE Verified 06/17/23 13:34 OF REACTION azithromycin [From Zithromax] Allergy Itching Verified 06/17/23 13:34 Beta-Blockers Allergy NEEDS Verified 06/17/23 13:34 (Beta-Adrenergic Bloc FOLLOW-UP sildenafil [From Viagra] Allergy PT UNSURE Verified 06/17/23 13:34 OF REACTION Vqmwner-SKD-AyY Reductase Allergy Other Verified 06/17/23 13:34 Inhibitor [Ocqdcgx-Zrq-Ddx Reductase Inhibitor] ezetimibe [From Zetia] AdvReac PT UNSURE Verified 06/17/23 13:34 OF REACTION Family History Sister CAD (coronary artery disease) Mother CAD (coronary artery disease) Father Colon cancer Brother CAD (coronary artery disease) Surgical History History of coronary artery stent placement (10/07/13) History of herniorrhaphy History of left heart catheterization (10/15/20) Social History Smoking Status: Former smoker quit date: 10/05/78 pack-years: 62 alcohol intake: never substance use type: does not use caffeine: Yes Type: coffee Number of servings: 3 ROS ROS ED ROS Narrative Constitutional: Positive fever, no chills. HEENT: No sore throat. No neck pain. No loss of vision. No rhinorrhea. Cardiovascular: No chest pain. No palpitations. No pedal edema. Respiratory: Positive cough, no shortness of breath. Abdominal: No abdominal pain. No nausea. No vomiting. Genitourinary: No dysuria. No hematuria. Musculoskeletal: No myalgias. No arthralgias. Neurologic: No headaches. No dizziness. No lightheadedness. Confused today, with history of dementia. Skin: No rash. No change in color. Psychiatric: No depression. No anxiety. EXAM Physical Exam Narrative Exam Narrative: 102.8 ?F, vital signs noted. Nontoxic-appearing. HEENT: Normocephalic. Atraumatic. PERRL, EOMI. Neck soft and supple. No pointtenderness or step off. Cardiovascular: Regular rate and rhythm. No murmurs,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 year US: 02/2018 Stable, 03/2019 US said no AAA, US 08/2020 no AAA no further studies needed. Actinic Keratoses (Premalignant AK's) 08/16/2013 Advance directive discussed with patient 03/26/2022 Discussed 03/2022 Anemia CAD S/P percutaneous coronary angioplasty 11/02/2013 Chronic left shoulder pain 06/30/2018 Dementia without behavioral disturbance (HCC) 05/15/2016 MMSE: 22 05/2016, MMSE: 06/2019, 23 Elevated fasting blood sugar 12/01/2018 Essential hypertension, benign 05/12/2006 Ex-smoker 10/31/2016 Started at age 15, up to 1 PPD quite at age 34 Fam hx-ischem heart disease 08/21/2009 Sister, mother Family history of colon cancer in father 06/09/2018 GERD without esophagitis 12/14/2018 History of CVA (cerebrovascular accident) 02/16/2018 Right posterior internal capsule Impaired driving skills 08/16/2019 Per Occupational Therapy Community Mobility and IADL report patient not safe to drive nor should hereturn to driving. Lipoma of right forearm 05/05/2017 Living will on file 03/26/2022 DPA: [place] () Malignant neoplasm of prostate (HCC) 03/01/200802/09 PATH: Left Lobe: GS 7 ( 3+4) in 1/4 cores Right Lobe : GS 6 ( 3 +) in 3/5 cores External Beam Radiotherapy -- Dr. Rishabh Yao, Renetta Landry follow Mixed hyperlipidemia 12/03/2002 NAIN (obstructive sleep apnea) 06/09/2018 Wearing CPAP, Per Neurology (Dr. Scott) Overactive bladder 08/01/2019 Rosacea 07/2003 S/P right coronary artery (RCA) stent placement 05/15/2017 Previous Surgical History PAST SURGICAL HISTORY Procedure Laterality Date 2D ECHO (EXEP) 02/11/2018 EF=65%, mild jain dysf, mildly enlarged LA, 2D ECHO (EXEP) 10/03/2020 EF=65%, mild Jain dysfunction, COLONOSCOPY FLX DX W/COLLJ SPEC WHEN PFRMD 02/2002 Colonoscopy COLONOSCOPY FLX DX W/COLLJ SPEC WHEN PFRMD 09/14/2007 normal COLONOSCOPY FLX DX W/COLLJ SPEC WHEN PFRMD 07/23/2012 normal COLONOSCOPY FLX DX W/COLLJ SPEC WHEN PFRMD 07/28/2018 Colonoscopy, repeat 5 years ESOPHAGOGASTRODUODENOSCOPY TRANSORAL DIAGNOSTIC 02/2002 EGD ESOPHAGOGASTRODUODENOSCOPY TRANSORAL DIAGNOSTIC 12/22/2002 hiatal hernia, distal esophagitis ESOPHAGOGASTRODUODENOSCOPY TRANSORAL DIAGNOSTIC 08/03/2015 EGD ESOPHAGOGASTRODUODENOSCOPY TRANSORAL DIAGNOSTIC 11/15/2015 EGD ESOPHAGOGASTRODUODENOSCOPY TRANSORAL DIAGNOSTIC 08/13/2020 EGD HEART CATHETERIZATION 2013 Angioplasty, Promus stent to right coronary LEXISCAN STRESS TEST 10/03/[address] Morton RPR UMBILICAL HRNA 5 YRS/> REDUCIBLE 2002 Family History FAMILY HISTORY Problem Relation Age of Onset Prostate Cancer Father Colon Cancer Father Dx in his 70s Heart Father Had heart issues per patient Heart Sister had bypass surgery (mid-40's) Heart Mother Had heart issues per patient Heart Brother had bypass surgery Patient Allergies ALLERGIES Allergen Reactions Zithromax [Azithrom* Itching Beta-Shravan S [Oth* Unknown Lipitor [Atorvastat* Intolerance Viagra [Sildenafil] Unknown Zetia [Ezetimibe] Mental Status Change Current Medications Current Outpatient Medications on File Prior to Visit Medication Sig memantine (NAMENDA) 5 mg tablet Take one tab a day for a week then go to one twice a day. aspirin, enteric coated (ECOTRIN LOW STRENGTH) 81 mg EC tablet Take 1 tablet by mouth once daily. nitroglycerin sublingual (NITROSTAT) 0.4 mg SL tablet Dissolve 1 tablet under the tongue every 5 minutes as needed for chest pain. amLODIPine (NORVASC) 10 mg tablet Take 1 tablet by mouth once daily. losartan (COZAAR) 100 mg tablet Take 1 tablet by mouth once daily. donepezil (ARICEPT) 10 mg tablet Take 1 tablet by mouth daily at bedtime. solifenacin (VESICARE) 5 mg tablet Take 1 tablet by mouth once daily. metoprolol succinate ER (TOPROL XL) 50 mg 24 hr tablet Take 1.5 tablets by mouth once daily. pantoprazole DR (PROTONIX) 40 mg tablet Take 1 tablet by mouth daily before breakfast. Take on empty stomach, 1/2 hr before meal. (Patient not taking: Reported on 02/18/2023) pravastatin (PRAVACHOL) 80 mg tablet Take 1 tablet by mouth daily at bedtime. predniSONE (DELTASONE) 20 mg tablet 1 tab a day by mouth for the next 7 days (Patient not taking: No sig reported) cholecalciferol (VITAMIN D3) 1,000 unit tab tablet Take 1,000 Units by mouth once daily. MELATONIN ORAL Take by mouth. (Patient not taking: No sig reported) ASCORBIC ACID, VITAMIN C, ORAL Take by mouth. Cinnamon Bark 500 mg cap Take 1 capsule by mouth once daily. Blood Pressure Cuff - Home Use BLOOD PRESSURE CUFF FOR HOME USE. DAILY MULTIVITAMIN TAB Take one(1) tablet daily. No current facility-administered medications on file prior to visit. Social History Social History Tobacco Use Smoking status: Former Packs/day: 2.50 Years: 25.00 Total pack years: 62.50 Types: Cigarettes Quit date: 10/05/1978 Years since quittin.5 Smokeless tobacco: Never Tobacco comments: quit 1978 Vaping Use Vaping Use: Never used Substance Use Topics Alcohol use: No Drug use: No Review of Symptoms REVIEW OF SYSTEMS GENERAL: No weight loss, malaise or fevers HEENT: Negative for frequent or significant headaches, No changes in hearing or vision, no nose bleeds or other nasal problems NECK: Negative for lumps, goiter, pain and significant neck swelling RESPIRATORY: Negative for cough, hemoptysis, wheezing, COPD, dyspnea or shortness of breath CARDIOVASCULAR: Negative for chest pain, leg swelling, hypertension, CHF or palpitations GI: No nausea, vomiting, or diarrhea, No heartburn or reflux symptoms, and no blood : No history of dysuria, frequency or blood MUSCULOSKELETAL: Negative for increased joint pain or swelling, back pain or muscle pain SKIN: Negative for lesions, rash, and itching PSYCH: denies patient seems depressed por anxious. HEMATOLOGY/LYMPHOLOGY: Negative for prolonged bleeding, bruising easily or swollen nodes ENDOCRINE: Negative for cold or heat intolerance, polyuria, polydipsia and goiter NEURO: No history of headaches, syncope, paralysis, seizures or tremors EXAM: BP 132/74 (BP Site: Right Arm, BP Position: Sitting, BP Cuff Size: Regular Adult) Pulse 68 Resp16 Ht 171.5 cm (5' 7.5) Wt 99.3 kg (219 lb) BMI 33.79 kg/m Last 5 Encounter Wt Readings: Date: Wt: 04/14/2023 99.3 kg (219 lb) 04/06/2023 98.9 kg (218 lb) 03/26/2023 98 kg (216 lb) 10/09/2022 98 kg (216 lb) 04/04/2022 100.2 kg (221 lb) General Appearance: Well appearing, alert, in no acute distress, well-hydrated, well nourished. andObese. Skin: Skin color, texture, turgor normal, no suspicious rashes or lesions. Head: Normocephalic, no masses, lesions, tenderness or abnormalities. Eyes: Anicteric sclera. Pupils are equally round and reactive to light. Extraocular movements are intact. . Ears: External ears normal, canals clear. Nose/Sinuses: Nares normal, septum midline, mucosa normal, no drainage or sinus tenderness. Oropharynx: Lips, mucosa, and tongue normal, teeth and gums normal, oropharynx normal. Neck: Supple, no adenopathy; thyroid symmetric, normal size, no bruits. Lungs: Lungs clear to auscultation. No wheezing, rhonchi, rales.. Heart: RRR without murmur, gallop, or rubs. No ectopy. Abdomen: Normal abdominal exam, Abdomen soft, non-tender. Bowel sounds normal. No masses, organomegaly. Extremities: No deformities, edema, skin discoloration, Good capillary refill. . Musculoskeletal: Spine range of motion normal. Muscular strength intact, No joint swelling, deformity, or tenderness. Peripheral Pulses: Normal. Neurologic: Gait normal. Reflexes normal and symmetric. Sensation to light touch and nc 2-12 intact.. Health Maintenance List COVID-19 VACCINE(5 - Pfizer series) due on 12/20/2022 BP CONTROLLED (<130/80) due on 03/26/2023 INFLUENZA(1) due on 06/05/2023 LDL CHOLESTEROL due on 04/02/2024 ANNUAL PCP TEAM CHRONIC DISEASE VISIT due on 04/06/2024 DIABETES SCREEN due on 04/02/2026 DTAP,TDAP,TD(3 - Td or Tdap) due on 04/09/2028 ADVANCE DIRECTIVE DISCUSSION Completed SHINGRIX VACCINE Completed PNEUMOCOCCAL: 65+ Completed COLORECTAL CANCER SCREENING Discontinued Data reviewed Component Latest Ref Rng & Units 03/26/2022 10/09/2022 04/02/2023 WBC 3.70 - 11.00 k/uL 7.15 8.32 RBC 4.20 - 6.00 m/uL 4.89 5.11 Hemoglobin 13.0 - 17.0 g/dL 14.6 14.8 Hematocrit 39.0 - 51.0 % 43.4 45.9 MCV 80.0 - 100.0 fL 88.8 89.8 MCH 26.0 - 34.0 pg 29.9 29.0 MCHC 30.5 - 36.0 g/dL 33.6 32.2 RDW-CV 11.5 - 15.0 % 13.1 13.2 Platelet Count 150 - 400 k/uL 218 228 MPV 9.0 - 12.7 fL 11.0 10.8 Neut% % 52.2 59.0 Abs Neut (ANC) 1.45 - 7.50 k/uL 3.74 4.91 Lymph% % 29.7 26.3 Abs Lymph 1.00 - 4.00 k/uL 2.12 2.19 [place]% % 13.6 10.6 Abs [place] <0.87 k/uL 0.97 (H) 0.88 (H) Eosin% % 3.5 3.1 Abs Eosin <0.46 k/uL 0.25 0.26 Baso% % 0.7 0.6 Abs Baso <0.11 k/uL 0.05 0.05 Immature Gran % % 0.3 0.4 IMMATURE GRANS (ABS) <0.10 k/uL <0.03 0.03 NRBC /100 WBC 0.0 0.0 Absolute nRBC <0.01 k/uL <0.01 <0.01 DTYPE Auto Auto Protein, Total 6.3 - 8.0 g/dL 7.2 7.3 Albumin 3.9 - 4.9 g/dL 4.1 4.2 Calcium 8.5 - 10.2 mg/dL 9.5 9.3 Bilirubin, Total 0.2 - 1.3 mg/dL 0.3 0.5 Alkaline Phosphatase 38 - 113 U/L 84 83 AST 14 - 40 U/L 31 28 ALT 10 - 54 U/L 43 34 Glucose 74 - 99 mg/dL 91 100 (H) BUN 9 - 24 mg/dL 12 16 Creatinine 0.73 - 1.22 mg/dL 1.13 1.27 (H) Sodium 136 - 144 mmol/L 141 140 Potassium 3.7 - 5.1 mmol/L 4.1 4.2 Chloride 97 - 105 mmol/L 107 (H) 106 (H) CO2 22 - 30 mmol/L 21 (L) 23 Anion Gap 9 - 18 mmol/L 13 11 eGFR >=60 mL/min/1.73m 66 57 (L) Color Yellow Colorless Clarity Clear Clear Glucose, Urine Trace, Negative Negative Bilirubin, Urine Negative Negative Ketones, Urine Trace, Negative Negative Specific [place], Ur 1.005 - 1.030 1.001 (L) Hemoglobin/Blood,Ur Negative, Trace Negative pH, Urine 5.0 - 8.0 6.5 Protein, Urine Trace, Negative Negative Urobilinogen Negative Negative Nitrites Negative Negative Leukest Negative, 25 Dieter/uL Negative WBC, Urine 0-5 /HPF 0-5 /HPF RBC, Urine 0-3 /HPF 0-3 /HPF Total Cholesterol, Nonfasting <200 mg/dL 184 165 157 Triglycerides, Nonfasting <150 mg/dL 342 (H) 123 140 HDL Cholesterol, Nonfasting >39 mg/dL 34 (L) 37 (L) 35 (L) LDL Cholesterol, Nonfasting <100 mg/dL 82 103 (H) 94 Non HDL Cholesterol, Nonfasting <130 mg/dL 150 (H) 128 122 VLDL Cholesterol, Nonfasting <30 mg/dL 68 (H) 25 28 Total Chol/HDL Ratio, Nonfasting <5.10 mg/dL 5.41 (H) 4.46 4.49 LDL/HDL Ratio, Nonfasting <2.54 mg/dL 2.41 2.78 (H) 2.69 (H) Hemoglobin A1C 4.3 - 5.6 % 5.7 (H) 5.4 5.7 (H) Estimated Average Glucose mg/dL 117 108 117 Vitamin B12 232 - 1,245 pg/mL 784 744 PSA <2.60 ng/mL 0.22 TSH 0.270 - 4.200 mIU/L 3.260 Magnesium 1.7 - 2.3 mg/dL 2.0 2.1 MINI-MENTAL STATE EXAMINATION (MMSE) Make the patient comfortable and establish rapport. Ask questions in the order listed. Total possible score is 30. ORIENTATION 1. What is the (year) (season) (date) (day) (month)? Max score=5 Patient's score=1 2. Where are we? (state) (county) (town or city) (hospital) (floor)? Max score=5 Patient's score=4 REGISTRATION Ask the patient if you may test his/her memory. Then say the names of 3 unrelated objects, clearly and slowly, about one second for each (eg, apple, table, ravi). After you have said all 3, ask him/her to repeat them. This first repetition determines the score(0-3), but keep saying them until he/she can repeat all 3, up to 6 trials. Max score=3 Patient's score=3 ATTENTION AND CALCULATION Ask the patient to begin with 100 and count backwards by 7. Stop after 5 subtractions (93, 86, 79, 72, 65). Score the total number of correct answers. If the patient cannot or will not perform the serial 7s task, ask him/her to spell the word WORLD backwards. The score is the number of letters in the correct order (eg, DLROW=5; DLRW=4; DLORW, DLW=3; OW=2; DRLWO=1). Max score=5 Patient's score=0 RECALL Ask the patient to recall the 3 items repeated above (eg, apple, table, ravi). Max score=3 Patient's score=0 LANGUAGE Naming: Show the patient a wristwatch and ask him/her what it is. Repeat for pencil. Max score=2 Patient's score=2 Repetition: Ask the patient to repeat the phrase No ifs, ands, or buts: after you. Max score=1 Patient's score=1 3-Stage Command: Give the patient a piece of blank paper and ask him/her to take a piece of paper in your right hand, fold it in half, put it on the floor. Score 1 point for each part correctly executed. Max score=3 Patient's score=3 Reading: On a blank piece of paper, print the sentence CLOSE YOUR EYES in letters large enough for the patient to see clearly. Ask him/her to read it and do what it says. Score 1 point only if he/sheactually closes his/her eyes. Max score=1 Patient's score=1 Writing: Give the patient a blank piece of paper and ask him/her to write a sentence. Do not dictate a sentence; it is to be written spontaneously. It must contain a subject and verb and be sensible.Correct grammar and punctuation are not necessary. Max score=1 Patient's score=1 Copying: Ask the patient to copy the figure of intersecting pentagons exactly as it is. All 10 angles must be present and 2 must intersect to form a 4-sided figure to score 1 point. Tremor and rotation are ignored. Max score=1 Patient's score=0 MAXIMUM TOTAL SCORE = 30 TOTAL SCORE = 16/30 Suggested guideline for determining the severity of cognitive impairment: Mild: MMSE>21 Moderate: MMSE 10-20 Severe: MMSE<9 Expected decline in MMSE scores in untreated mild to moderate Alzheimer's patient is 2 to 4 points per year. *Adapted from Folstein et al.1 and Elizabeth and Halle2. (c) 1974, 1997 [employer] Used withpermission. References: 1. Folstein MF, Folstein SE, Lydia OH. Mini-Mental State: a practical method for grading the cognitive state of patients for the clinician. J Psychiatr Res. 1975; 12:189-198. 2. JR Elizabeth, Folstein MF, Mini-Mental State Examination (MMSE). Psychopharm Bull. 1988;24:689-692. 3. Yoly JT, Raymundo FJ, Bibiana RD, Jeremiah A, Ester F. Neuropsychological function in Alzheimer's disease: pattern of impairment and rates of progression. Arch Neurol. 1988;45:263-268. 4. Les JA, Otoniel B,Ángel S-P, Myron LANTIGUA. Predictors of cognitive and functional progression in patients with probable Alzheimer's disease. Neurology. 1992;42:3399-1684. A/P ASSESSMENT/PLAN: 1. Medicare annual wellness visit, subsequent - ICD9: V70.0, ICD10: Z00.00 (primary diagnosis) - Counseled on healthy diet and regular exercise - Follow up for annual exam in one year - encouraged if Lory starts to exhibit signs of balance issues then he should start to use awalker for safety. 2. Essential hypertension, benign - ICD9: 401.1, ICD10: I10 - Controlled - Continue current medications - Recommend home blood pressure monitoring, to bring results to next visit - Encouraged sodium restriction, DASH or Mediterranean diet - Recommend regular aerobic exercise 3. Mixed hyperlipidemia - ICD9: 272.2, ICD10: E78.2 - Controlled - Counseled on healthy diet and regular exercise - Discussed need for and benefit of weight loss. BMI 33.79 kg/(m^2) 4. Elevated fasting blood sugar - ICD9: 790.21, ICD10: R73.01 - stable A1c. Advised on dietary changes to help lower A1c. 5. CAD S/P percutaneous coronary angioplasty - ICD9: 414.01, V45.82, ICD10: I25.10, Z98.61 - stable management per cardio. 6. GERD without esophagitis - ICD9: 530.81, ICD10: K21.9 - diet controlled. 7. History of CVA (cerebrovascular accident) - ICD9: V12.54, ICD10: Z86.73 - clinically stable no changes. 8. Dementia without behavioral disturbance (HCC) - ICD9: 294.20, ICD10: F03.90 - MMSE lower this time at 16/30. Will increase the Namenda to 10 mg twice ad ay and cont the Aricept. 9. NAIN (obstructive sleep apnea) - ICD9: 327.23, ICD10: G47.33 - continue with nightly CPAP Requested Prescriptions Signed Prescriptions Disp Refills memantine (NAMENDA) 10 mg tablet 180 tablet 1 Sig: Take one tab a day for a week then go to one twice a day. F/u 6 months routine and MMSE check BMP, A1c and Lipid prior I spent a total of 40 minutes on the date of the service which included preparing to see the patient, [id number] patient care, completing clinical documentation, performing a medically appropriate examination, counseling and educating the patient/family/caregiver and ordering medications, tests, or procedures. Adama Mendoza MD documented in this [facility] Miscellaneous Notes* Telephone Encounter - Adama Mendoza MD - 04/10/2023 11:21 AM EDT The following approved medication requests have been transmitted electronically. Requested Prescriptions Signed Prescriptions Disp Refills memantine (NAMENDA) 5 mg tablet 180 tablet 1 Sig: Take one tab a day for a week then go to one twice a day. Authorizing Provider: ADAMA MENDOZA MD * Telephone Encounter - Chavez Plata LPN - 04/10/2023 10:32 AM EDT Last refill 10/09/22 Qty: 180 with 1 refill KYLE 04/06/23 NOV 04/14/23 Chavez Plata LPN * Telephone Encounter - Brianna Howe Pss - 04/10/2023 10:11 AM EDT Pharmacy verified in [facility] Patient has been identified by name and date of : Yes Patient aware RX will be sent to pharmacy. No need to notify patient. Spouse phones for refill(s): Requested Prescriptions Pending Prescriptions Disp Refills memantine (NAMENDA) 5 mg tablet 180 tablet 1 Sig: Take one tab a day for a week then go to one twice a day. Date of last office visit : 04/06/2023 Date of next office visit : 04/14/2023 Last 2 Encounter Wt Readings: Date: Wt: 04/06/2023 98.9 kg (218 lb) 03/26/2023 98 kg (216 lb) Not applicable Please advise. Brianna Howe Pss documented in this encounterMer[facility] History of Present illness Narrative* Danita Meraz PA-C - 04/06/2023 12:07 PM EDT Chief Complaint Patient presents with: ER F/U HPI Lory Johnson is a 78 year old male who presents here today for ER Follow Up.. Patient was on a walk with family and tripped over a small step. Fell and hit his right side of head and upper body. CT neck and Brain were normal. Xray of knee and shoulder were also okay. He suffered a laceration on his left thumb. Sutures were placed. Otherwise no concerns. Feels like everything has been healing well. Last 5 Encounter Wt Readings: Date: Wt: 04/06/2023 98.9 kg (218 lb) 03/26/2023 98 kg (216 lb) 10/09/2022 98 kg (216 lb) 04/04/2022 100.2 kg (221 lb) 04/02/2022 100.7 kg (222 lb) Past medical history, appointments, medications, allergies reviewed. Previous Medical History PAST MEDICAL HISTORY Diagnosis Date 3-vessel CAD 11/03/2013 Abdominal aortic aneurysm (AAA) without rupture (HCC) 11/08/2016 US: 11/2016 2.6 x 2.4 x 2.0 cm, Repeat in a year US: 02/2018 Stable, 03/2019 US said no AAA, US 08/2020 no AAA no further studies needed. Actinic Keratoses (Premalignant AK's) 08/16/2013 Advance directive discussed with patient 03/26/2022 Discussed 03/2022 Anemia CAD S/P percutaneous coronary angioplasty 11/02/2013 Chronic left shoulder pain 06/30/2018 Dementia without behavioral disturbance (HCC) 05/15/2016 MMSE: 22 05/2016, MMSE: 06/2019, 23 Elevated fasting blood sugar 12/01/2018 Essential hypertension, benign 05/12/2006 Ex-smoker 10/31/2016 Started at age 15, up to 1 PPD quite at age 34 Fam hx-ischem heart disease 08/21/2009 Sister, mother Family history of colon cancer in father 06/09/2018 GERD without esophagitis 12/14/2018 History of CVA (cerebrovascular accident) 02/16/2018 Right posterior internal capsule Impaired driving skills 08/16/2019 Per Occupational Therapy Community Mobility and IADL report patient not safe to drive nor should hereturn to driving. Lipoma of right forearm 05/05/2017 Living will on file 03/26/2022 DPA: Refugio () Malignant neoplasm of prostate (HCC) 03/01/200802/09 PATH: Left Lobe: GS 7 ( 3+4) in 1/4 cores Right Lobe : GS 6 ( 3 +) in 3/5 cores External Beam Radiotherapy -- Dr. Rishabh Yao, Renetta Landry follow Mixed hyperlipidemia 12/03/2002 NAIN (obstructive sleep apnea) 06/09/2018 Wearing CPAP, Per Neurology (Dr. Scott) Overactive bladder 08/01/2019 Rosacea 07/2003 S/P right coronary artery (RCA) stent placement 05/15/2017 Previous Surgical History PAST SURGICAL HISTORY Procedure Laterality Date 2D ECHO (EXEP) 02/11/2018 EF=65%, mild jain dysf, mildly enlarged LA, 2D ECHO (EXEP) 10/03/2020 EF=65%, mild Jain dysfunction, COLONOSCOPY FLX DX W/COLLJ SPEC WHEN PFRMD 02/2002 Colonoscopy COLONOSCOPY FLX DX W/COLLJ SPEC WHEN PFRMD 09/14/2007 normal COLONOSCOPY FLX DX W/COLLJ SPEC WHEN PFRMD 07/23/2012 normal COLONOSCOPY FLX DX W/COLLJ SPEC WHEN PFRMD 07/28/2018 Colonoscopy, repeat 5 years ESOPHAGOGASTRODUODENOSCOPY TRANSORAL DIAGNOSTIC 02/2002 EGD ESOPHAGOGASTRODUODENOSCOPY TRANSORAL DIAGNOSTIC 12/22/2002 hiatal hernia, distal esophagitis ESOPHAGOGASTRODUODENOSCOPY TRANSORAL DIAGNOSTIC 08/03/2015 EGD ESOPHAGOGASTRODUODENOSCOPY TRANSORAL DIAGNOSTIC 11/15/2015 EGD ESOPHAGOGASTRODUODENOSCOPY TRANSORAL DIAGNOSTIC 08/13/2020 EGD HEART CATHETERIZATION 2013 Angioplasty, Promus stent to right coronary LEXISCAN STRESS TEST 10/03/[address] Morton RPR UMBILICAL HRNA 5 YRS/> REDUCIBLE 2002 Family History FAMILY HISTORY Problem Relation Age of Onset Prostate Cancer Father Colon Cancer Father Dx in his 70s Heart Father Had heart issues per patient Heart Sister had bypass surgery (mid-40's) Heart Mother Had heart issues per patient Heart Brother had bypass surgery Patient Allergies ALLERGIES Allergen Reactions Zithromax [Azithrom* Itching Beta-Shravan S [Oth* Unknown Lipitor [Atorvastat* Intolerance Viagra [Sildenafil] Unknown Zetia [Ezetimibe] Mental Status Change Current Medications Current Outpatient Medications on File Prior to Visit Medication Sig amLODIPine (NORVASC) 10 mg tablet Take 1 tablet by mouth once daily. losartan (COZAAR) 100 mg tablet Take 1 tablet by mouth once daily. donepezil (ARICEPT) 10 mg tablet Take 1 tablet by mouth daily at bedtime. solifenacin (VESICARE) 5 mg tablet Take 1 tablet by mouth once daily. metoprolol succinate ER (TOPROL XL) 50 mg 24 hr tablet Take 1.5 tablets by mouth once daily. pravastatin (PRAVACHOL) 80 mg tablet Take 1 tablet by mouth daily at bedtime. memantine (NAMENDA) 5 mg tablet Take one tab a day for a week then go to one twice a day. cholecalciferol (VITAMIN D3) 1,000 unit tab tablet Take 1,000 Units by mouth once daily. ASCORBIC ACID, VITAMIN C, ORAL Take by mouth. Cinnamon Bark 500 mg cap Take 1 capsule by mouth once daily. aspirin, enteric coated (ECOTRIN LOW STRENGTH) 81 mg EC tablet Take 1 tablet by mouth once daily. Blood Pressure Cuff - Home Use BLOOD PRESSURE CUFF FOR HOME USE. nitroglycerin sublingual (NITROSTAT) 0.4 mg SL tablet Dissolve 1 tablet under the tongue every 5 minutes as needed for Chest Pain. DAILY MULTIVITAMIN TAB Take one(1) tablet daily. pantoprazole DR (PROTONIX) 40 mg tablet Take 1 tablet by mouth daily before breakfast. Take on empty stomach, 1/2 hr before meal. (Patient not taking: Reported on 02/18/2023) predniSONE (DELTASONE) 20 mg tablet 1 tab a day by mouth for the next 7 days (Patient not taking: No sig reported) MELATONIN ORAL Take by mouth. (Patient not taking: No sig reported) No current facility-administered medications on file prior to visit. Social History Social History Tobacco Use Smoking status: Former Packs/day: 2.50 Years: 25.00 Pack years: 62.50 Types: Cigarettes Quit date: 10/05/1978 Years since quittin.5 Smokeless tobacco: Never Tobacco comments: quit 1978 Vaping Use Vaping Use: Never used Substance Use Topics Alcohol use: No Drug use: No Review of Symptoms REVIEW OF SYSTEMS See hpi EXAM: BP 118/86 (BP Site: Left Arm, BP Position: Sitting, BP Cuff Size: Large Adult) Pulse (!) 58 Temp 36.8 C (98.3 F) Resp 16 Wt 98.9 kg (218 lb) BMI 34.14 kg/m General Appearance: Well appearing, alert, in no acute distress, well-hydrated, well nourished.. Head: hematoma noted above right brow line. Bruising b/l eye lids. Improved. . Musculoskeletal: laceration on left thumb healing well. Only [address] 4th suture absent but can tell where it was. No signs of infection. . Health Maintenance List BP CONTROLLED (<130/80) due on 03/26/2023 INFLUENZA(1) due on 06/05/2023 ANNUAL PCP TEAM CHRONIC DISEASE VISIT due on 10/09/2023 LDL CHOLESTEROL due on 04/02/2024 DIABETES SCREEN due on 04/02/2026 DTAP,TDAP,TD(3 - Td or Tdap) due on 04/09/2028 ADVANCE DIRECTIVE DISCUSSION Completed SHINGRIX VACCINE Completed COVID-19 VACCINE Completed PNEUMOCOCCAL: 65+ Completed Data reviewed ASSESSMENT/PLAN: 1. Fall, initial encounter - ICD9: E888.9, ICD10: W19.XXXA (primary diagnosis) No concerning symptoms. All areas healing well. 2. Hematoma - ICD9: 924.9, ICD10: T14.8XXA Reassurance given 3. Visit for suture removal - ICD9: V58.32, ICD10: Z48.02 3 sutures removed. 4th suture already broke/fell out. Danita Meraz PA-C Patient and will reschedule wellness exam. documented in this encounterMer[facility]05-04-[facility]23 History of Present illness Narrative* Judith Vanegas MA - 02/05/2023 10:26 AM EDT Scan on 02/03/2023 3:10 PM by External Provider, ISABELLE: Consultation - Cardiology Judith Vanegas MA documented in this encounterMercy [facility]05-01-2023 Miscellaneous Notes* Telephone Encounter - Adama Mendoza MD - 02/02/2023 9:43 AM EDT The following approved medication requests have been transmitted electronically. Requested Prescriptions Signed Prescriptions Disp Refills losartan (COZAAR) 100 mg tablet 90 tablet 1 Sig: Take 1 tablet by mouth once daily. Authorizing Provider: ADAMA MENDOZA MD * Telephone Encounter - Judith Vanegas MA - 02/02/2023 8:39 AM EDT Patient has been identified by name and date of : Yes Requested Prescriptions Pending Prescriptions Disp Refills losartan (COZAAR) 100 mg tablet 90 tablet 1 Sig: Take 1 tablet by mouth once daily. RX INSTRUCTIONS: Patient aware RX will be sent to pharmacy. No need to notify patient. Judith Vanegas MA Kyle 10/2022 Nov 04/2023 Last refill; 07/2022 * Telephone Encounter - Jill Brown Pss - 02/02/2023 8:04 AM EDT Patient has been identified by name and date of : Yes Requested Prescriptions Pending Prescriptions Disp Refills losartan (COZAAR) 100 mg tablet 90 tablet 1 Sig: Take 1 tablet by mouth once daily. RX INSTRUCTIONS: Patient aware RX will be sent to pharmacy. No need to notify patient. Jill Brown Pss documented in this encounterMer[facility]04-28-2023 Miscellaneous Notes* Telephone Encounter - Adama Mendoza MD - 01/30/2023 11:09 AM EDT The following approved medication requests have been transmitted electronically. Requested Prescriptions Signed Prescriptions Disp Refills donepezil (ARICEPT) 10 mg tablet 90 tablet 1 Sig: Take 1 tablet by mouth daily at bedtime. Authorizing Provider: ADAMA MENDOZA solifenacin (VESICARE) 5 mg tablet 90 tablet 1 Sig: Take 1 tablet by mouth once daily. Authorizing Provider: ADAMA MENDOZA metoprolol succinate ER (TOPROL XL) 50 mg 24 hr tablet 135 tablet 1 Sig: Take 1.5 tablets by mouth once daily. Authorizing Provider: ADAMA MENDOZA MD * Telephone Encounter - Jeremías Villegas LPN - 01/30/2023 10:59 AM EDT KYLE 10/09/22 NOV 04/09/23 * Telephone Encounter - Avis De La Cruz Pss - 01/30/2023 10:36 AM EDT Patient has been identified by name and date of : Yes Requested Prescriptions Pending Prescriptions Disp Refills donepezil (ARICEPT) 10 mg tablet 30 tablet 5 Sig: Take 1 tablet by mouth daily at bedtime. solifenacin (VESICARE) 5 mg tablet 90 tablet 1 Sig: Take 1 tablet by mouth once daily. metoprolol succinate ER (TOPROL XL) 50 mg 24 hr tablet 135 tablet 1 Sig: Take 1.5 tablets by mouth once daily. RX INSTRUCTIONS: Patient aware RX will be sent to pharmacy. No need to notify patient. Avis De La Cruz Pss documented in this encounterMer[facility]04-06-2023 Miscellaneous Notes* Telephone Encounter - Stephany Canchola Ma - 01/08/2023 8:55 AM EDT Patient last visit with PCP 10/09/22 Follow up appointment scheduled 04/09/23 Stephany Canchola Ma * Telephone Encounter - Nisa Puga Pss - 01/08/2023 8:09 AM EDT Patient has been identified by name and date of : Yes Requested Prescriptions Pending Prescriptions Disp Refills pantoprazole DR (PROTONIX) 40 mg tablet 30 tablet 11 Sig: Take 1 tablet by mouth daily before breakfast. Take on empty stomach, 1/2 hr before meal. RX INSTRUCTIONS: Patient aware RX will be sent to pharmacy. No need to notify patient. Nisa Puga Pss documented in this encounterMercy [facility]03-28-2023 History of Present illness Narrative* Pino Chappell, PT - 12/30/2022 11:01 AM EDT Episode Visit Count: 9 Therapist That Will Accept/Oversee The Plan Of Care: Keegan Pino Start of Care Date: 10/31/22 Onset Date: 07/24/22 Plan of Care Certification Date: 12/01/22 Next Certification Due Date: 01/05/23 Patient Identified by Name and Date of : Yes REHABILITATION AND SPORTS THERAPY PHYSICAL THERAPY DISCONTINUANCE OF CARE PLAN OF CARE UPDATE: Assessment: Lory Johnson is discontinued from Physical Therapy services due to Patient/Clinician mutual decision to discontinue current plan of care. and no further progress has been achieve via physical therapy . Patient was seen for 9 visits from Start of Care Date: 10/31/22 to 12/30/2022 and treatment included: Therapeutic exercise, Manual therapy, and Patient/Family/Caregiver Education. Goals updated 12/30/2022 Goals for Episode of Care: created on 10/31/22 through 12/26/22 Pt will report the ability to get a coat on without help - Not met, will continue [place] in home exercise program. - MET Increase ROM of R shoulder to 140 degrees or more for ease of dressing and reaching into cabinets Progressing, will continue Increased strength of R shoulder to 4+/5 or greater for ease of lifting Objects - Progressing, will continue Patient Goals: Decreased pain SUBJECTIVE: Patient Reason for Visit: Pain has been pretty good. Pain: Pain Pain Level: 0 Pain Location: Shoulder - Right Post Treatment Pain Post Treatment Pain Level: 0 Post Treatment Pain Location: Shoulder - Right PROMIS Scales Higher is Better 11/03/2019 Phys Func - Score 53 (within normal limits) Phys Func - Percentile 62 % T-scores: mean of general population = 50. 5 points is clinically meaningfully difference Percentiles provide an indication of how the patient's score ranks in relation to the general population. Higher percentile rankings indicate better function/quality of life. 50th percentile is the average of the general population and indicates half of respondents had a worse score. OBJECTIVE MEASURES WITH LEVEL OF FUNCTION: UE AROM R Shoulder Flex: 90 Degrees UE PROM R Shoulder Flex: 110 Degrees UE and Cervical Strength L UE Strength: Grossly 5/5 R Shoulder Flexion: 2+/5 R Shoulder Abduction (C5): 2+/5 R Shoulder Internal Rotation: 4+/5 R Shoulder External Rotation: 4-/5 R Elbow Extension (C7): 5/5 R Elbow Flexion (C6): 5/5 TREATMENT: Therapeutic Exercise: 1: All objective measures taken this session 2: Shoulder pulleys x 4 min stretching into flexion for RUE 3: Standing shoulder flexion 2 x 10 4: Standing shoulder flexion holding 1# x 8 (Shoulder fatigues after 8 reps then poor form observed) Skilled Intervention: Patient was educated in proper exercise technique and purpose for exercises. Correct performance of therapeutic exercises was facilitated with verbal cuing. Billing Therapeutic Exercise Treatment Minutes: 25 Total Treatment Time Minutes (timed/untimed): 25 Pino Chappell PT documented in this encounterMer[facility]03-14-2023 History of Present illness Narrative* Pino Chappell PT - 12/16/2022 9:30 AM EDT Episode Visit Count: 8 Therapist That Will Accept/Oversee The Plan Of Care: Pino Chappell Start of Care Date: 10/31/22 Onset Date: 07/24/22 Plan of Care Certification Date: 12/01/22 Next Certification Due Date: 01/05/23 Patient Identified by Name and Date of : Yes REHABILITATION AND SPORTS THERAPY PHYSICAL THERAPY TREATMENT NOTE ASSESSMENT: Lory Johnson tolerated the session with no issues. He demonstrated improvements in shoulder ROM. The patient will continue to benefit from ongoing skilled physical therapy to progress toward set goals and for reassessment by supervising therapist. PLAN FOR NEXT VISIT: POC update SUBJECTIVE: Patient Reason for Visit: states that she has seen him do more for himself then hehas. Gets coat on and shoes on well. Not much pain lately. No pain today. Pain: Pain Pain Level: 0 Pain Location: Shoulder - Right Post Treatment Pain Post Treatment Pain Location: Shoulder - Right OBJECTIVE MEASURES WITH LEVEL OF FUNCTION: UE AROM R Shoulder Flex: 95 Degrees UE PROM R Shoulder Flex: 110 Degrees TREATMENT: Therapeutic Exercise: 1: UBE x 5 min (subjective taken at this time and HEP discussed) 2: Shoulder pulleys x 4 min stretching into flexion for RUE 3: Wall slides on wall 2 x 10 reps holding 3 sec each 4: Ball roll-outs 2 x 10 reps 5: Standing shoulder flexion 2# x 2 then 1# x 3 (too heavy) 6: Standing shoulder flexion x 10 (no weight and constant VC's for keeping the elbow straight) Skilled Intervention: Patient was educated in proper exercise technique and purpose for exercises. Correct performance of therapeutic exercises was facilitated with verbal and visual cuing. Billing Therapeutic Exercise Treatment Minutes: 42 Total Treatment Time Minutes (timed/untimed): 42 Pino Chappell PT documented in this encounterMercy [facility]02-20-2023 History of Present illness Narrative* Pino Chappell PT - 11/24/2022 10:47 AM EST Episode Visit Count: 6 Therapist That Will Accept/Oversee The Plan Of Care: Pino Chappell Start of Care Date: 10/31/22 Onset Date: 07/24/22 Plan of Care Certification Date: 10/31/22 Next Certification Due Date: 12/05/22 Patient Identified by Name and Date of : Yes REHABILITATION AND SPORTS THERAPY PHYSICAL THERAPY TREATMENT NOTE ASSESSMENT: Lory Johnson tolerated the session with no issues. He demonstrated difficulty with correct form with ER exercise. The patient will continue to benefit from ongoing skilled physical therapy to progress toward set goals and for reassessment by supervising therapist. PLAN FOR NEXT VISIT: POC update SUBJECTIVE: Patient Reason for Visit: Pt states he feels the pain is not too bad. Pain: Pain Pain Level: 6 Pain Location: Shoulder - Right Post Treatment Pain Post Treatment Pain Location: Shoulder - Right OBJECTIVE MEASURES WITH LEVEL OF FUNCTION: R shoulder scaption 100 degrees using pulleys TREATMENT: Therapeutic Exercise: 1: UBE x 4 min no resistance added (Discussed subjective and HEP) 2: Seated shoulder elena x 4 min (Working on R shoulder elevation) 3: R inferior capsule stretch using elena 3 x 30 seconds 4: Shoulder ER OTB 3 x 12 reps 5: Seated shoulder flexion with wand x 20 Skilled Intervention: Patient was educated in proper exercise technique and purpose for exercises. Correct performance of therapeutic exercises was facilitated with verbal and visual cuing. Billing Therapeutic Exercise Treatment Minutes: 42 Total Treatment Time Minutes (timed/untimed): 42 Pino Chappell PT documented in this encounterMercy [facility]02-16-2023 History of Present illness Narrative* Pino Chappell PT - 11/20/2022 12:23 PM EST Episode Visit Count: 5 Therapist That Will Accept/Oversee The Plan Of Care: Pino Chappell Start of Care Date: 10/31/22 Onset Date: 07/24/22 Plan of Care Certification Date: 10/31/22 Next Certification Due Date: 12/05/22 Patient Identified by Name and Date of : Yes REHABILITATION AND SPORTS THERAPY PHYSICAL THERAPY TREATMENT NOTE ASSESSMENT: Lory Johnson tolerated the session with no issues. He demonstrated improvements in overall pain levels per pt report. The patient will continue to benefit from ongoing skilled physical therapy to progress toward set goals. PLAN FOR NEXT VISIT: Capsule stretching as tolerated. RTC strengthening. SUBJECTIVE: Patient Reason for Visit: Pt states he fels the exercises are helpful. The pain is lessand does feel improvement to the R shoulder motion during elena exercise. Pain: Pain Pain Level: (Not rated) Pain Location: Shoulder - Right OBJECTIVE MEASURES WITH LEVEL OF FUNCTION: R shoulder scaption 100 degrees during elena exercise TREATMENT: Therapeutic Exercise: 1: Seated shoulder elena to end range 3 x 15 2: Standing shoulder ER [place] TB 3 x 10 3: Standing shoulder IR [place] TB x 10 Skilled Intervention: Patient was educated in proper exercise technique and purpose for exercises. Manual Therapy: 1: PROM of GH joint through abd and flex x 10 each 2: Inferior capsule stretch 10 x 10 sec holds 3: PROM ER R GH joint x 10 Skilled Intervention: Manual skills to improve joint mobility, ROM, and decrease pain. Utilized anatomy knowledge of the therapist, and assessment of patient's response to intervention. Billing Therapeutic Exercise Treatment Minutes: 15 Manual TherapyTreatment Minutes: 16 Total Treatment Time Minutes (timed/untimed): 31 Pino Chappell PT documented in this encounterMercy Health [facility]02-16-2023 History of Present illness Narrative* Dandy Faith - 11/20/2022 11:55 AM EST Initial Podiatric Office Visit: Chief Complaint: This 77 year old male who presents with chief complaint:painful toenail HPI Patient presents to clinic complaining of thick toenails, primarily and that they tend to become painful. He has no other complaints. PAIN EVALUATION No data found in the last 1 encounters. Hemoglobin A1C (%) Date Value 10/09/2022 5.4 03/26/2022 5.7 09/09/2021 5.8 02/18/2021 5.8 08/10/2020 5.6 12/09/2019 5.6 06/11/2019 5.5 PCP: Adama Mendoza MD PAST MEDICAL HISTORY Diagnosis Date 3-vessel CAD 11/03/2013 Abdominal aortic aneurysm (AAA) without rupture 11/08/2016 US: 11/2016 2.6 x 2.4 x 2.0 cm, Repeat in a year US: 02/2018 Stable, 03/2019 US said no AAA, US 08/2020 no AAA no further studies needed. Actinic Keratoses (Premalignant AK's) 08/16/2013 Advance directive discussed with patient 03/26/2022 Discussed 03/2022 Anemia CAD S/P percutaneous coronary angioplasty 11/02/2013 Chronic left shoulder pain 06/30/2018 Dementia without behavioral disturbance (HCC) 05/15/2016 MMSE: 22 05/2016, MMSE: 06/2019, 23 Elevated fasting blood sugar 12/01/2018 Essential hypertension, benign 05/12/2006 Ex-smoker 10/31/2016 Started at age 15, up to 1 PPD quite at age 34 Fam hx-ischem heart disease 08/21/2009 Sister, mother Family history of colon cancer in father 06/09/2018 GERD without esophagitis 12/14/2018 History of CVA (cerebrovascular accident) 02/16/2018 Right posterior internal capsule Impaired driving skills 08/16/2019 Per Occupational Therapy Community Mobility and IADL report patient not safe to drive nor should hereturn to driving. Lipoma of right forearm 05/05/2017 Living will on file 03/26/2022 DPA: Refugio () Malignant neoplasm of prostate (HCC) 03/01/200802/09 PATH: Left Lobe: GS 7 ( 3+4) in 1/4 cores Right Lobe : GS 6 ( 3 +) in 3/5 cores External Beam Radiotherapy -- Dr. Rishabh Yao, Renetta Landry follow Mixed hyperlipidemia 12/03/2002 NAIN (obstructive sleep apnea) 06/09/2018 Wearing CPAP, Per Neurology (Dr. Scott) Overactive bladder 08/01/2019 Rosacea 07/2003 S/P right coronary artery (RCA) stent placement 05/15/2017 Current Outpatient Medications Medication Sig donepezil (ARICEPT) 10 mg tablet Take 1 tablet by mouth daily at bedtime. pravastatin (PRAVACHOL) 80 mg tablet Take 1 tablet by mouth daily at bedtime. memantine (NAMENDA) 5 mg tablet Take one tab a day for a week then go to one twice a day. amLODIPine (NORVASC) 10 mg tablet Take 1 tablet by mouth once daily. solifenacin (VESICARE) 5 mg tablet Take 1 tablet by mouth once daily. metoprolol succinate ER (TOPROL XL) 50 mg 24 hr tablet Take 1.5 tablets by mouth once daily. losartan (COZAAR) 100 mg tablet Take 1 tablet by mouth once daily. pantoprazole DR (PROTONIX) 40 mg tablet Take 1 tablet by mouth daily before breakfast. Take on empty stomach, 1/2 hr before meal. cholecalciferol (VITAMIN D3) 1,000 unit tab tablet Take 1,000 Units by mouth once daily. ASCORBIC ACID, VITAMIN C, ORAL Take by mouth. Cinnamon Bark 500 mg cap Take 1 capsule by mouth once daily. aspirin, enteric coated (ECOTRIN LOW STRENGTH) 81 mg EC tablet Take 1 tablet by mouth once daily. Blood Pressure Cuff - Home Use BLOOD PRESSURE CUFF FOR HOME USE. nitroglycerin sublingual (NITROSTAT) 0.4 mg SL tablet Dissolve 1 tablet under the tongue every 5 minutes as needed for Chest Pain. DAILY MULTIVITAMIN TAB Take one(1) tablet daily. predniSONE (DELTASONE) 20 mg tablet 1 tab a day by mouth for the next 7 days (Patient not taking: No sig reported) MELATONIN ORAL Take by mouth. (Patient not taking: No sig reported) No current facility-administered medications for this visit. ALLERGIES Allergen Reactions Zithromax [Azithrom* Itching Beta-Shravan S [Oth* Unknown Lipitor [Atorvastat* Intolerance Viagra [Sildenafil] Unknown Zetia [Ezetimibe] Mental Status Change PAST SURGICAL HISTORY Procedure Laterality Date 2D ECHO (EXEP) 02/11/2018 EF=65%, mild jain dysf, mildly enlarged LA, 2D ECHO (EXEP) 10/03/2020 EF=65%, mild Jain dysfunction, COLONOSCOPY FLX DX W/COLLJ SPEC WHEN PFRMD 02/2002 Colonoscopy COLONOSCOPY FLX DX W/COLLJ SPEC WHEN PFRMD 09/14/2007 normal COLONOSCOPY FLX DX W/COLLJ SPEC WHEN PFRMD 07/23/2012 normal COLONOSCOPY FLX DX W/COLLJ SPEC WHEN PFRMD 07/28/2018 Colonoscopy, repeat 5 years ESOPHAGOGASTRODUODENOSCOPY TRANSORAL DIAGNOSTIC 02/2002 EGD ESOPHAGOGASTRODUODENOSCOPY TRANSORAL DIAGNOSTIC 12/22/2002 hiatal hernia, distal esophagitis ESOPHAGOGASTRODUODENOSCOPY TRANSORAL DIAGNOSTIC 08/03/2015 EGD ESOPHAGOGASTRODUODENOSCOPY TRANSORAL DIAGNOSTIC 11/15/2015 EGD ESOPHAGOGASTRODUODENOSCOPY TRANSORAL DIAGNOSTIC 08/13/2020 EGD HEART CATHETERIZATION 2014 Angioplasty, Promus stent to right coronary LEXISCAN STRESS TEST 10/03/[address] Morton RPR UMBILICAL HRNA 5 YRS/> REDUCIBLE 2002 FAMILY HISTORY Problem Relation Age of Onset Prostate Cancer Father Colon Cancer Father Dx in his 70s Heart Father Had heart issues per patient Heart Sister had bypass surgery (mid-40's) Heart Mother Had heart issues per patient Heart Brother had bypass surgery Social History Tobacco Use Smoking status: Former Packs/day: 2.50 Years: 25.00 Pack years: 62.50 Types: Cigarettes Quit date: 10/05/1978 Years since quittin.1 Smokeless tobacco: Never Tobacco comments: quit 1978 Vaping Use Vaping Use: Never used Substance Use Topics Alcohol use: No Drug use: No REVIEW OF SYSTEMS GENERAL: Negative for Malaise, significant weight loss, fever RESPIRATORY: Negative for cough, wheezing and shortness of breath CARDIOVASCULAR: Negative for chest pain, leg swelling and palpitations GI: Negative for abdominal discomfort, blood in stools or black stools and change in bowel habits : Negative for dysuria, frequency and incontinence MUSCULOSKELETAL: Negative for joint pain or swelling, back pain, and muscle pain. SKIN: Negative for lesions, rash, and itching. HEMATOLOGY/LYMPHOLOGY Negative for prolonged bleeding, bruising easily, and swollen nodes. ENDOCRINE: Negative for cold or heat intolerance, polyuria, polydipsia and goiter. NEURO: negative Physical Exam: Constitutional: Pt is a well developed 77 year old male who is alert, oriented and cooperative Eyes: Following during examination. No redness or drainage. Respiratory: RR normal and nonlabored. Even breathing. No evidence of distress or shortness of breath. Psychology: Patient is engaged during conversation. Normal affect and mood. Does not appear depressed or anxious during encounter. Vascular: Dorsalis pedis and posterior tibial pulses palpable as b/l Capillary Fill time < 5 seconds to digits 1-5 b/l Skin temperature warm to warm proximal to distal b/l Hair growth present to digits Neurological: intact light touch/epicritic sensation b/l intact protective sensation no significant neurological deficits Dermatological: Nails 1-5 b/l appear elongated and painful. Webspaces clean and dry 1-4 b/l. Skin appears well hydrated and supple. good color, texture, turgor. No open lesions present. No callosities present. Musculoskeletal/Orthopaedic: Patient has pain to palpation of right 3rd toenail Foot type is neutral structurally AJ ROM is full with knee extended and flexed 1st MPJ is full when loaded and no pain or crepitus are noted with ROM. MTJ, STJ are full and free of pain and crepitus. +5/5 muscle strength dorsiflexion, plantarflexion, inversion, eversion b/l Radiographs: n/a ASSESSMENT: (B35.1) Onychomycosis (primary encounter diagnosis) (M79.675) Pain in toe of left foot (M79.674) Pain in toe of right foot PLAN: 1. History and physical examination performed. 2. Toenails 1-5 b/l debrided in length and thickness Dandy Faith DPM Podiatry [address] [facility] [address] Dept: [phone] Dept * Salinas Oliveros RN - 11/20/2022 11:12 AM EST Patient presents with: Left Foot - New, thick nails Right Foot - New, thick nails Patient presents for a general foot check. States that nails are thick and hard to cut. documented [facility] History of Present illness Narrative* Pino Chappell PT - 11/17/2022 10:51 AM EST Episode Visit Count: 4 Therapist That Will Accept/Oversee The Plan Of Care: Pino Chappell Start of Care Date: 10/31/22 Onset Date: 07/24/22 Plan of Care Certification Date: 10/31/22 Next Certification Due Date: 12/05/22 Patient Identified by Name and Date of : Yes REHABILITATION AND SPORTS THERAPY PHYSICAL THERAPY TREATMENT NOTE ASSESSMENT: Lory Johnson tolerated the session with no issues. He demonstrated difficulty with completing the therapeutic exercises with proper form if not verbally cued consistently. The patient will continue to benefit from ongoing skilled physical therapy to progress toward set goals. PLAN FOR NEXT VISIT: Assess reaction to HEP change. Vc's for proper form as needed. SUBJECTIVE: Patient Reason for Visit: Not as faithful with the exercises per . The shoulder is feeling pretty good today. Pain: Pain Pain Level: 7 Pain Location: Shoulder - Right OBJECTIVE MEASURES WITH LEVEL OF FUNCTION: UE PROM R Shoulder Flex: 95 Degrees (catching sensation) R shoulder ER strength 3+/5 TREATMENT: Therapeutic Exercise: 1: Seated Shoulder pulleys into flexion 2 x 15 reps 2: Standing shoulder ER YTB 3 x 10 3: Standing shoulder IR YTB x 10 Skilled Intervention: Patient was educated in proper exercise technique and purpose for exercises. Correct performance of therapeutic exercises was facilitated with verbal and visual cuing. Manual Therapy: 1: PROM shoulder abd in supine x 20 2: Inferior capsule stretch of R shoulder x 5 holding 60 sec each Skilled Intervention: Manual skills to improve joint mobility, ROM, and decrease pain. Utilized anatomy knowledge of the therapist, and assessment of patient's response to intervention. Billing Therapeutic Exercise Treatment Minutes: 25 Manual TherapyTreatment Minutes: 15 Total Treatment Time Minutes (timed/untimed): 40 Pino Chappell PT documented in this encounterMer[facility] History of Present illness Narrative* Pino Chappell PT - 11/06/2022 12:13 PM EST Episode Visit Count: 3 Therapist That Will Accept/Oversee The Plan Of Care: Pino Chappell Start of Care Date: 10/31/22 Onset Date: 07/24/22 Plan of Care Certification Date: 10/31/22 Next Certification Due Date: 12/05/22 Patient Identified by Name and Date of : Yes REHABILITATION AND SPORTS THERAPY PHYSICAL THERAPY TREATMENT NOTE ASSESSMENT: Lory Johnson tolerated the session with no issues. He demonstrated difficulty with proper form with therapeutic exercises at times. The patient will continue to benefit from ongoingskilled physical therapy to progress toward set goals. PLAN FOR NEXT VISIT: Progress R shoulder AAROM with stretching SUBJECTIVE: Patient Reason for Visit: Pt states he is doing ok and is doing the exercises at home. Pain: Pain Pain Location: Shoulder - Right OBJECTIVE MEASURES WITH LEVEL OF FUNCTION: Firm end feel felt at end range flexion and ER of the R shoulder TREATMENT: Therapeutic Exercise: 1: Seated pulleys 2 x 10 scaption 2: Seated B Er iso wand 2 x 10 holding 3-5 3: Discussed holding stretches for longer periods of time to try and improve capsular flexibility 4: Supine wand flexion AAROM 3 x 8-10 reps Skilled Intervention: Patient was educated in proper exercise technique and purpose for exercises. Correct performance of therapeutic exercises was facilitated with verbal and visual cuing. Manual Therapy: 1: Manual R shoulder ER stretch at 40 deg abd 2: Supine Manual inferior capsule stretch 3 x 60 sec Skilled Intervention: Manual skills to improve joint mobility, ROM, and decrease pain. Utilized anatomy knowledge of the therapist, and assessment of patient's response to intervention. Billing Therapeutic Exercise Treatment Minutes: 30 Manual TherapyTreatment Minutes: 8 Total Treatment Time Minutes (timed/untimed): 38 Pino Chappell PT documented in this encounterMer[facility]01[facility]31[facility] History of Present illness Narrative* Pino Chappell PT - 11/04/2022 10:12 AM EST Episode Visit Count: 2 Therapist That Will Accept/Oversee The Plan Of Care: Pino Chappell Start of Care Date: 10/31/22 Onset Date: 07/24/22 Plan of Care Certification Date: 10/31/22 Next Certification Due Date: 12/05/22 Patient Identified by Name and Date of : Yes REHABILITATION AND SPORTS THERAPY PHYSICAL THERAPY TREATMENT NOTE ASSESSMENT: Lory Johnson tolerated the session with no issues. He demonstrated difficulty with remembering how to perform the therapeutic exercises with proper form. The patient will continue to benefit from ongoing skilled physical therapy to progress toward set goals. PLAN FOR NEXT VISIT: Continue with shoulder AAROM exercises to strengthen the RTC of the R shoulder SUBJECTIVE: Patient Reason for Visit: Pt states that the exercises make his shoulder feel better. Pain: Pain Pain Level: 7 Pain Location: Shoulder - Right OBJECTIVE MEASURES WITH LEVEL OF FUNCTION: Pt requires VC's for proper completion of HEP Limited R shoulder flexion to 90 degrees TREATMENT: Therapeutic Exercise: 1: Seated pulleys 2 x 10 scaption 2: Seated B Er iso wand 2 x 10 holding 3-5 3: Hand squeezes 2 x 10 4: Supine wand flexion AAROM 3 x 8-10 reps Skilled Intervention: Patient was educated in proper exercise technique and purpose for exercises. Correct performance of therapeutic exercises was facilitated with verbal and visual cuing. Billing Therapeutic Exercise Treatment Minutes: 39 Total Treatment Time Minutes (timed/untimed): 39 Pino Chappell PT documented in this encounterMer[facility]01-23-2023 History of Present illness Narrative* Robert Combs MD - 10/27/2022 12:44 PM EST Robert Combs MD Department of Orthopaedics Orthopaedics [address] [facility] [address] Dept: [phone] Dept October 27, 2022 CHIEF COMPLAINT: Established Patient, Pain, Dislocation, and Follow Up of the Right Shoulder HPI Patient presents with: Right Shoulder - Established Patient, Pain, Dislocation, Follow Up Patient present to office following a fall with dislocation of right shoulder. 5 weeks 6 days post visit anterior right shoulder dislocation and rotator cuff tear. Patient has dementia pain level unable to assess fully. Katt Olivares LPN ASSESSMENT: S43.014D Anterior dislocation of right shoulder, subsequent encounter (primary encounter diagnosis) S46.011D 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, subsequent encounter PLAN: doing much better. Still with functional problems with the shoulder. Suspect a full thicknessRTC tear. Not a great surgical candidate. Lets' try some PT for now. I'd recommend a RTC US if needed at some point. Mr. Lory Johnson was advised as to contrast therapies and/or to take analgesics/anti-inflammatories as needed and all contraindications were reviewed. OBJECTIVE: Mr. Lory Johnson is a pleasant 77 year old in no apparent distress. Gen:There were no vitals taken for this visit. nl development, obese, no deformities ENT: Normocephalic, normal hearing, moist mucosa CV: Pulses:Radial= 2+ and symmetric, capillary refill < 2 secs, no peripheral edema/varicosities Skin: no rash, bruising or lesions. Good turgor. Psych: cooperative and appropriate, alert and oriented x 3, good mood and affect. Musculoskeletal: Right shoulder with limited ROM. 90 FE, 30 ER. Imaging: Deferred today. Supporting Subjective Information Below: Past Surgical History: PAST SURGICAL HISTORY Procedure Laterality Date 2D ECHO (EXEP) 02/11/2018 EF=65%, mild jain dysf, mildly enlarged LA, 2D ECHO (EXEP) 10/03/2020 EF=65%, mild Jain dysfunction, COLONOSCOPY FLX DX W/COLLJ SPEC WHEN PFRMD 02/2002 Colonoscopy COLONOSCOPY FLX DX W/COLLJ SPEC WHEN PFRMD 09/14/2007 normal COLONOSCOPY FLX DX W/COLLJ SPEC WHEN PFRMD 07/23/2012 normal COLONOSCOPY FLX DX W/COLLJ SPEC WHEN PFRMD 07/28/2018 Colonoscopy, repeat 5 years ESOPHAGOGASTRODUODENOSCOPY TRANSORAL DIAGNOSTIC 02/2002 EGD ESOPHAGOGASTRODUODENOSCOPY TRANSORAL DIAGNOSTIC 12/22/2002 hiatal hernia, distal esophagitis ESOPHAGOGASTRODUODENOSCOPY TRANSORAL DIAGNOSTIC 08/03/2015 EGD ESOPHAGOGASTRODUODENOSCOPY TRANSORAL DIAGNOSTIC 11/15/2015 EGD ESOPHAGOGASTRODUODENOSCOPY TRANSORAL DIAGNOSTIC 08/13/2020 EGD HEART CATHETERIZATION 2013 Angioplasty, Promus stent to right coronary LEXISCAN STRESS TEST 10/03/[address] Morton RPR UMBILICAL HRNA 5 YRS/> REDUCIBLE 2002 Medications: Current Outpatient Medications Medication Sig donepezil (ARICEPT) 10 mg tablet Take 1 tablet by mouth daily at bedtime. pravastatin (PRAVACHOL) 80 mg tablet Take 1 tablet by mouth daily at bedtime. memantine (NAMENDA) 5 mg tablet Take one tab a day for a week then go to one twice a day. amLODIPine (NORVASC) 10 mg tablet Take 1 tablet by mouth once daily. solifenacin (VESICARE) 5 mg tablet Take 1 tablet by mouth once daily. metoprolol succinate ER (TOPROL XL) 50 mg 24 hr tablet Take 1.5 tablets by mouth once daily. losartan (COZAAR) 100 mg tablet Take 1 tablet by mouth once daily. pantoprazole DR (PROTONIX) 40 mg tablet Take 1 tablet by mouth daily before breakfast. Take on empty stomach, 1/2 hr before meal. cholecalciferol (VITAMIN D3) 1,000 unit tab tablet Take 1,000 Units by mouth once daily. ASCORBIC ACID, VITAMIN C, ORAL Take by mouth. Cinnamon Bark 500 mg cap Take 1 capsule by mouth once daily. aspirin, enteric coated (ECOTRIN LOW STRENGTH) 81 mg EC tablet Take 1 tablet by mouth once daily. Blood Pressure Cuff - Home Use BLOOD PRESSURE CUFF FOR HOME USE. DAILY MULTIVITAMIN TAB Take one(1) tablet daily. predniSONE (DELTASONE) 20 mg tablet 1 tab a day by mouth for the next 7 days (Patient not taking: Reported on 09/09/2021 ) MELATONIN ORAL Take by mouth. (Patient not taking: Reported on 03/26/2022 ) nitroglycerin sublingual (NITROSTAT) 0.4 mg SL tablet Dissolve 1 tablet under the tongue every 5 minutes as needed for Chest Pain. No current facility-administered medications for this visit. Allergies: Zithromax [Azithromycin], Beta-Shravan S [Other], Lipitor [Atorvastatin], Viagra [Sildenafil], and Zetia [Ezetimibe] ROS: General (negative for fatigue, malaise, weight loss/gain) HEENT (negative for headache, earache, recent vision changes, sinus pain, sore throat) Respiratory (no recent shortness of breath, hemoptysis) CV (negative for chest tightness, palpitations) Musculoskeletal (see HPI) Psych (no depression, anxiety) Robert Combs MD documented in this encounterMer[facility]01-[facility]23 Instructions* Patient Instructions* Adama Mendoza MD - 10/09/2022 11:31 AM EST Please get labs and urine test done on or after 03/27/2023 prior to your next visit. documented in this encounterMer[facility]01-[facility]23 History of Present illness Narrative* Adama Mendoza MD - 10/09/2022 11:03 AM EST Chief Complaint Patient presents with: F/U 6 months HPI Lory Johnson is a 77 year old male who presents here today for 6 month follow up. Patient with Hx of HTN, elevated fasting blood sugar, CAD, GERD, NAIN, hyperlipidemia, dementia, Hx of prostate cancer, Hx of CVA, as well as those reviewed and addressed below and in ROS. Continues to wear his CPAP nightly. Has seen Dr. Morton. He had a fall in Jul and has been seeing Ortho for right shoulder pain and decreased ROM. No new issues or concerns today. Past medical history, appointments, medications, allergies reviewed. Previous Medical History PAST MEDICAL HISTORY Diagnosis Date 3-vessel CAD 11/03/2013 Abdominal aortic aneurysm (AAA) without rupture 11/08/2016 US: 11/2016 2.6 x 2.4 x 2.0 cm, Repeat in a year US: 02/2018 Stable, 03/2019 US said no AAA, US 08/2020 no AAA no further studies needed. Actinic Keratoses (Premalignant AK's) 08/16/2013 Advance directive discussed with patient 03/26/2022 Discussed 03/2022 Anemia CAD S/P percutaneous coronary angioplasty 11/02/2013 Chronic left shoulder pain 06/30/2018 Dementia without behavioral disturbance (HCC) 05/15/2016 MMSE: 22 05/2016, MMSE: 06/2019, 23 Elevated fasting blood sugar 12/01/2018 Essential hypertension, benign 05/12/2006 Ex-smoker 10/31/2016 Started at age 15, up to 1 PPD quite at age 34 Fam hx-ischem heart disease 08/21/2009 Sister, mother Family history of colon cancer in father 06/09/2018 GERD without esophagitis 12/14/2018 History of CVA (cerebrovascular accident) 02/16/2018 Right posterior internal capsule Impaired driving skills 08/16/2019 Per Occupational Therapy Community Mobility and IADL report patient not safe to drive nor should hereturn to driving. Lipoma of right forearm 05/05/2017 Living will on file 03/26/2022 DPA: [place] () Malignant neoplasm of prostate (HCC) 03/01/200802/09 PATH: Left Lobe: GS 7 ( 3+4) in 1/4 cores Right Lobe : GS 6 ( 3 +) in 3/5 cores External Beam Radiotherapy -- Dr. Rishabh Yao, Renetta Landry follow Mixed hyperlipidemia 12/03/2002 NAIN (obstructive sleep apnea) 06/09/2018 Wearing CPAP, Per Neurology (Dr. Scott) Overactive bladder 08/01/2019 Rosacea 07/2003 S/P right coronary artery (RCA) stent placement 05/15/2017 Previous Surgical History PAST SURGICAL HISTORY Procedure Laterality Date 2D ECHO (EXEP) 02/11/2018 EF=65%, mild jain dysf, mildly enlarged LA, 2D ECHO (EXEP) 10/03/2020 EF=65%, mild Jain dysfunction, COLONOSCOPY FLX DX W/COLLJ SPEC WHEN PFRMD 02/2002 Colonoscopy COLONOSCOPY FLX DX W/COLLJ SPEC WHEN PFRMD 09/14/2007 normal COLONOSCOPY FLX DX W/COLLJ SPEC WHEN PFRMD 07/23/2012 normal COLONOSCOPY FLX DX W/COLLJ SPEC WHEN PFRMD 07/28/2018 Colonoscopy, repeat 5 years ESOPHAGOGASTRODUODENOSCOPY TRANSORAL DIAGNOSTIC 02/2002 EGD ESOPHAGOGASTRODUODENOSCOPY TRANSORAL DIAGNOSTIC 12/22/2002 hiatal hernia, distal esophagitis ESOPHAGOGASTRODUODENOSCOPY TRANSORAL DIAGNOSTIC 08/03/2015 EGD ESOPHAGOGASTRODUODENOSCOPY TRANSORAL DIAGNOSTIC 11/15/2015 EGD ESOPHAGOGASTRODUODENOSCOPY TRANSORAL DIAGNOSTIC 08/13/2020 EGD HEART CATHETERIZATION 2013 Angioplasty, Promus stent to right coronary LEXISCAN STRESS TEST 10/03/[address] Morton RPR UMBILICAL HRNA 5 YRS/> REDUCIBLE 2002 Family History FAMILY HISTORY Problem Relation Age of Onset Prostate Cancer Father Colon Cancer Father Dx in his 70s Heart Father Had heart issues per patient Heart Sister had bypass surgery (mid-40's) Heart Mother Had heart issues per patient Heart Brother had bypass surgery Patient Allergies ALLERGIES Allergen Reactions Zithromax [Azithrom* Itching Beta-Shravan S [Oth* Unknown Lipitor [Atorvastat* Intolerance Viagra [Sildenafil] Unknown Zetia [Ezetimibe] Mental Status Change Current Medications Current Outpatient Medications on File Prior to Visit Medication Sig amLODIPine (NORVASC) 10 mg tablet Take 1 tablet by mouth once daily. solifenacin (VESICARE) 5 mg tablet Take 1 tablet by mouth once daily. metoprolol succinate ER (TOPROL XL) 50 mg 24 hr tablet Take 1.5 tablets by mouth once daily. losartan (COZAAR) 100 mg tablet Take 1 tablet by mouth once daily. pantoprazole DR (PROTONIX) 40 mg tablet Take 1 tablet by mouth daily before breakfast. Take on empty stomach, 1/2 hr before meal. donepezil (ARICEPT) 10 mg tablet Take 1 tablet by mouth daily at bedtime. pravastatin (PRAVACHOL) 80 mg tablet Take 1 tablet by mouth daily at bedtime. cholecalciferol (VITAMIN D3) 1,000 unit tab tablet Take 1,000 Units by mouth once daily. ASCORBIC ACID, VITAMIN C, ORAL Take by mouth. Cinnamon Bark 500 mg cap Take 1 capsule by mouth once daily. aspirin, enteric coated (ECOTRIN LOW STRENGTH) 81 mg EC tablet Take 1 tablet by mouth once daily. Blood Pressure Cuff - Home Use BLOOD PRESSURE CUFF FOR HOME USE. DAILY MULTIVITAMIN TAB Take one(1) tablet daily. predniSONE (DELTASONE) 20 mg tablet 1 tab a day by mouth for the next 7 days (Patient not taking: Reported on 09/09/2021 ) MELATONIN ORAL Take by mouth. (Patient not taking: Reported on 03/26/2022 ) nitroglycerin sublingual (NITROSTAT) 0.4 mg SL tablet Dissolve 1 tablet under the tongue every 5 minutes as needed for Chest Pain. No current facility-administered medications on file prior to visit. Social History Social History Tobacco Use Smoking status: Former Packs/day: 2.50 Years: 25.00 Pack years: 62.50 Types: Cigarettes Quit date: 10/05/1978 Years since quittin.0 Smokeless tobacco: Never Tobacco comments: quit 1978 Vaping Use Vaping Use: Never used Substance Use Topics Alcohol use: No Drug use: No Review of Symptoms REVIEW OF SYSTEMS GENERAL: No significant weight loss, malaise or fevers NECK: Negative for lumps, goiter, pain and significant neck swelling RESPIRATORY: Negative for cough, hemoptysis, wheezing, COPD, dyspnea or shortness of breath CARDIOVASCULAR: Negative for chest pain, leg swelling, hypertension, CHF or palpitations GI: No nausea, vomiting, or diarrhea and No heartburn or reflux symptoms MUSCULOSKELETAL: Negative for joint pain or swelling, back pain or muscle pain ENDOCRINE: Negative forpolyuria, polydipsia and goiter NEURO: No history of headaches, syncope, paralysis, seizures or tremors EXAM: BP 140/92 (BP Site: Left Arm, BP Position: Sitting, BP Cuff Size: Large Adult) Pulse 64 Resp 16 Wt 98 kg (216 lb) BMI 33.83 kg/m BP 142/78 Pulse 64 Resp 16 Wt 98 kg (216 lb) BMI 33.83 kg/m Last 5 Encounter Wt Readings: Date: Wt: 10/09/2022 98 kg (216 lb) 04/04/2022 100.2 kg (221 lb) 04/02/2022 100.7 kg (222 lb) 03/26/2022 101.2 kg (223 lb) 09/09/2021 99.8 kg (220 lb) General Appearance: Well appearing, alert, in no acute distress, well-hydrated, well nourished.. Neck: Supple, no adenopathy; thyroid symmetric, normal size, no bruits. Lungs: Lungs clear to auscultation. No wheezing, rhonchi, rales.. Heart: RRR without murmur, gallop, or rubs. No ectopy. Abdomen: Normal abdominal exam, Abdomen soft, non-tender. Bowel sounds normal. No masses, organomegaly. Extremities: No deformities, edema, skin discoloration, Good capillary refill. . Peripheral Pulses: Normal. Neurologic: Gait normal. Reflexes normal and symmetric. Sensation to light touch intact.. Health Maintenance List ADVANCE DIRECTIVE DISCUSSION due on 10/05/2022 LDL CHOLESTEROL due on 03/26/2023 BP CONTROLLED (<130/80) due on 03/26/2023 ANNUAL PCP TEAM CHRONIC DISEASE VISIT due on 04/02/2023 DIABETES SCREEN due on 03/26/2025 DTAP,TDAP,TD(3 - Td or Tdap) due on 04/09/2028 INFLUENZA Completed SHINGRIX VACCINE Completed COVID-19 VACCINE Completed PNEUMOCOCCAL: 65+ Completed Data reviewed Component Latest Ref Rng & Units 03/26/2022 WBC 3.70 - 11.00 k/uL 7.15 RBC 4.20 - 6.00 m/uL 4.89 Hemoglobin 13.0 - 17.0 g/dL 14.6 Hematocrit 39.0 - 51.0 % 43.4 MCV 80.0 - 100.0 fL 88.8 MCH 26.0 - 34.0 pg 29.9 MCHC 30.5 - 36.0 g/dL 33.6 RDW-CV 11.5 - 15.0 % 13.1 Platelet Count 150 - 400 k/uL 218 MPV 9.0 - 12.7 fL 11.0 Neut% % 52.2 Abs Neut (ANC) 1.45 - 7.50 k/uL 3.74 Lymph% % 29.7 Abs Lymph 1.00 - 4.00 k/uL 2.12 [place]% % 13.6 Abs [place] <0.87 k/uL 0.97 (H) Eosin% % 3.5 Abs Eosin <0.46 k/uL 0.25 Baso% % 0.7 Abs Baso <0.11 k/uL 0.05 Immature Gran % % 0.3 IMMATURE GRANS (ABS) <0.10 k/uL <0.03 NRBC /100 WBC 0.0 Absolute nRBC <0.01 k/uL <0.01 DTYPE Auto Protein, Total 6.3 - 8.0 g/dL 7.2 Albumin 3.9 - 4.9 g/dL 4.1 Calcium 8.5 - 10.2 mg/dL 9.5 Bilirubin, Total 0.2 - 1.3 mg/dL 0.3 Alkaline Phosphatase 38 - 113 U/L 84 AST 14 - 40 U/L 31 ALT 10 - 54 U/L 43 Glucose 74 - 99 mg/dL 91 BUN 9 - 24 mg/dL 12 Creatinine 0.73 - 1.22 mg/dL 1.13 Sodium 136 - 144 mmol/L 141 Potassium 3.7 - 5.1 mmol/L 4.1 Chloride 97 - 105 mmol/L 107 (H) CO2 22 - 30 mmol/L 21 (L) Anion Gap 9 - 18 mmol/L 13 eGFR >=60 mL/min/1.73m 66 Color Yellow Light Yellow Clarity Clear Clear Glucose, Urine Negative Negative Bilirubin, Urine Negative Negative Ketones, Urine Negative Negative Specific [place], Ur 1.005 - 1.030 1.013 Hemoglobin/Blood,Ur Negative Negative pH, Urine 5.0 - 8.0 6.0 Protein, Urine Negative 1+ (A) Urobilinogen Negative Negative Nitrites Negative Negative Leukest Negative Negative WBC, Urine 0-5 /HPF 0-5 /HPF RBC, Urine 0-3 /HPF 0-3 /HPF Epithelial Cells /HPF Few Total Cholesterol, Nonfasting <200 mg/dL 184 Triglycerides, Nonfasting <150 mg/dL 342 (H) HDL Cholesterol, Nonfasting >39 mg/dL 34 (L) LDL Cholesterol, Nonfasting <100 mg/dL 82 Non HDL Cholesterol, Nonfasting <130 mg/dL 150 (H) VLDL Cholesterol, Nonfasting <30 mg/dL 68 (H) Total Chol/HDL Ratio, Nonfasting <5.10 mg/dL 5.41 (H) LDL/HDL Ratio, Nonfasting <2.54 mg/dL 2.41 Hemoglobin A1C 4.3 - 5.6 % 5.7 (H) Estimated Average Glucose mg/dL 117 Vitamin B12 232-1,245 pg/mL 784 PSA <2.60 ng/mL 0.22 TSH 0.270 - 4.200 mIU/L 3.260 Magnesium 1.7 - 2.3 mg/dL 2.0 A/P ASSESSMENT/PLAN: 1. Essential hypertension, benign - ICD9: 401.1, ICD10: I10 (primary diagnosis) - good control - Continue current medication(s) - Recommended regular aerobic exercise. - Recommend home blood pressure monitoring, to bring results in on next visit - Goal of BP <150/90 - LIPID PANEL, NONFASTING 2. Elevated fasting blood sugar - ICD9: 790.21, ICD10: R73.01 check - HGB A1C - cont work on life style changes. 3. Mixed hyperlipidemia - ICD9: 272.2, ICD10: E78.2 - to be determined upon return of lab results - Encouraged following a low fat, low cholesterol diet. - Discussed the benefits of regular aerobic exercise and weight loss. - Encouraged following a low carbohydrate, healthy oil intake diet. - Continue current therapy. - LIPID PANEL, NONFASTING 4. GERD without esophagitis - ICD9: 530.81, ICD10: K21.9 - Continue treatment with Protonix 40 mg QD 5. Dementia without behavioral disturbance (HCC) - ICD9: 294.20, ICD10: F03.90 - will cont Aricept at 10 mg a day and start Namenda 5 mg a day for a week then one twice a day. 6. CAD S/P percutaneous coronary angioplasty - ICD9: 414.01, V45.82, ICD10: I25.10, Z98.61 - clinically satabl no changes and cont f/u with cardio - LIPID PANEL, NONFASTING 7. History of CVA (cerebrovascular accident) - ICD9: V12.54, ICD10: Z86.73 - stable with current meds. 8. NAIN (obstructive sleep apnea) - ICD9: 327.23, ICD10: G47.33 - benefiting from nightly use of CPAP 9. Anemia, unspecified type - ICD9: 285.9, ICD10: D64.9 - labs in March 2022 was normal. 10. Advance directive discussed with patient - ICD9: V65.49, ICD10: Z71.89 - up to date. Requested Prescriptions Signed Prescriptions Disp Refills donepezil (ARICEPT) 10 mg tablet 30 tablet 5 Sig: Take 1 tablet by mouth daily at bedtime. pravastatin (PRAVACHOL) 80 mg tablet 30 tablet 5 Sig: Take 1 tablet by mouth daily at bedtime. memantine (NAMENDA) 5 mg tablet 180 tablet 1 Sig: Take one tab a day for a week then go to one twice a day. F/u 6 months extensive check CMP, Lipid, UA, A1c, CBC, B12 and Mg prior. Adama Mendoza MD documented in this encounterMer[facility]12-15-2022 Miscellaneous Notes* Telephone Encounter - Ayesha Dumont Ma - 09/18/2022 8:58 AM EST I called and spoke with , Refugio. Message from Dr. Combs given and follow up has been scheduled on 10/28/2022. * Telephone Encounter - Robert Combs MD - 09/17/2022 5:18 PM EST No therapy at this time. He just needs to be gently using the arm at waist level, raising it as he can, etc. We'll decide if any PT is necessary after either another visit, or when they check in withme in another 4-6 weeks. * Telephone Encounter - Christi Villegas - 09/17/2022 11:37 AM EST calling with follow up question from yesterday's visit. Does Dr. Combs reccommend Physical Therapy? They forgot to ask. Please review and advise. Christi Villegas MA documented in this encounterMercy Health [facility]12-13-2022 History of Present illness Narrative* Robert Combs MD - 09/16/2022 2:26 PM EST Robert Combs MD Department of Orthopaedics Orthopaedics [address] [place] [id number] Dept: [phone] September 16, 2022 CHIEF COMPLAINT: Established Patient and Pain of the Right Shoulder HPI Patient here today for 5 weeks 3 days post visit anterior right shoulder dislocation and rotator cuff tear. Patient still has occasional pain. ASSESSMENT: S43.014A Anterior dislocation of right shoulder, initial encounter (primary encounter diagnosis) S46.011A Traumatic tear of right rotator cuff, unspecified tear extent, initial encounter PLAN: He is doing better really is not having much pain, though certainly some limited functional ability. We reviewed again the concern for likely rotator cuff tear and nonoperative management of that. Ultimately, again, if any surgical intervention would be necessary for pain or function we would be considering a reverse shoulder replacement. He is not interested in that at this time nor do I think it is necessary as he can continue to gently use the arm and we will initiate some therapy and see how he ultimately does nonsurgically. Mr. Lory Johnson was advised as to contrast therapies and/or to take analgesics/anti-inflammatories as needed and all contraindications were reviewed. OBJECTIVE: Mr. Lory Johnson is a pleasant 77 year old in no apparent distress. Gen:There were no vitals taken for this visit. nl development, obese, no deformities ENT: Normocephalic, normal hearing, moist mucosa CV: Pulses:Radial= 2+ and symmetric, capillary refill < 2 secs, no peripheral edema/varicosities Skin: no rash, bruising or lesions. Good turgor. Psych: cooperative and appropriate, alert and oriented x 3, good mood and affect. Musculoskeletal: Swelling is appropriately down. Gentle internal and external rotation at his waist without pain. Limited forward elevation of only 80 degrees. Imaging: Deferred today Supporting Subjective Information Below: Past Surgical History: PAST SURGICAL HISTORY Procedure Laterality Date 2D ECHO (EXEP) 02/11/2018 EF=65%, mild jain dysf, mildly enlarged LA, 2D ECHO (EXEP) 10/03/2020 EF=65%, mild Jain dysfunction, COLONOSCOPY FLX DX W/COLLJ SPEC WHEN PFRMD 02/2002 Colonoscopy COLONOSCOPY FLX DX W/COLLJ SPEC WHEN PFRMD 09/14/2007 normal COLONOSCOPY FLX DX W/COLLJ SPEC WHEN PFRMD 07/23/2012 normal COLONOSCOPY FLX DX W/COLLJ SPEC WHEN PFRMD 07/28/2018 Colonoscopy, repeat 5 years ESOPHAGOGASTRODUODENOSCOPY TRANSORAL DIAGNOSTIC 02/2002 EGD ESOPHAGOGASTRODUODENOSCOPY TRANSORAL DIAGNOSTIC 12/22/2002 hiatal hernia, distal esophagitis ESOPHAGOGASTRODUODENOSCOPY TRANSORAL DIAGNOSTIC 08/03/2015 EGD ESOPHAGOGASTRODUODENOSCOPY TRANSORAL DIAGNOSTIC 11/15/2015 EGD ESOPHAGOGASTRODUODENOSCOPY TRANSORAL DIAGNOSTIC 08/13/2020 EGD HEART CATHETERIZATION 2013 Angioplasty, Promus stent to right coronary LEXISCAN STRESS TEST 10/03/[address] Morton RPR UMBILICAL HRNA 5 YRS/> REDUCIBLE 2002 Medications: Current Outpatient Medications Medication Sig amLODIPine (NORVASC) 10 mg tablet Take 1 tablet by mouth once daily. solifenacin (VESICARE) 5 mg tablet Take 1 tablet by mouth once daily. metoprolol succinate ER (TOPROL XL) 50 mg 24 hr tablet Take 1.5 tablets by mouth once daily. losartan (COZAAR) 100 mg tablet Take 1 tablet by mouth once daily. pantoprazole DR (PROTONIX) 40 mg tablet Take 1 tablet by mouth daily before breakfast. Take on empty stomach, 1/2 hr before meal. donepezil (ARICEPT) 10 mg tablet Take 1 tablet by mouth daily at bedtime. pravastatin (PRAVACHOL) 80 mg tablet Take 1 tablet by mouth daily at bedtime. cholecalciferol (VITAMIN D3) 1,000 unit tab tablet Take 1,000 Units by mouth once daily. ASCORBIC ACID, VITAMIN C, ORAL Take by mouth. Cinnamon Bark 500 mg cap Take 1 capsule by mouth once daily. aspirin, enteric coated (ECOTRIN LOW STRENGTH) 81 mg EC tablet Take 1 tablet by mouth once daily. DAILY MULTIVITAMIN TAB Take one(1) tablet daily. predniSONE (DELTASONE) 20 mg tablet 1 tab a day by mouth for the next 7 days (Patient not taking: Reported on 09/09/2021 ) MELATONIN ORAL Take by mouth. (Patient not taking: Reported on 03/26/2022 ) Blood Pressure Cuff - Home Use BLOOD PRESSURE CUFF FOR HOME USE. nitroglycerin sublingual (NITROSTAT) 0.4 mg SL tablet Dissolve 1 tablet under the tongue every 5 minutes as needed for Chest Pain. No current facility-administered medications for this visit. Allergies: Zithromax [Azithromycin], Beta-Shravan S [Other], Lipitor [Atorvastatin], Viagra [Sildenafil], and Zetia [Ezetimibe] ROS: General (negative for fatigue, malaise, weight loss/gain) HEENT (negative for headache, earache, recent vision changes, sinus pain, sore throat) Respiratory (no recent shortness of breath, hemoptysis) CV (negative for chest tightness, palpitations) Musculoskeletal (see HPI) Psych (no depression, anxiety) Robert Combs MD documented in this encounterMer[facility]11-23-2022 Miscellaneous Notes* Telephone Encounter - Adama Mendoza MD - 08/27/2022 6:07 PM EST The following approved medication requests have been transmitted electronically. Requested Prescriptions Signed Prescriptions Disp Refills amLODIPine (NORVASC) 10 mg tablet 90 tablet 1 Sig: Take 1 tablet by mouth once daily. Authorizing Provider: ADAMA MENDOZA MD * Telephone Encounter - ARETHA Tamez - 08/27/2022 2:32 PM EST KYLE 04/02/22 with RR Appointment scheduled for 10/09/22 Please advise. Thank you. ARETHA Tamez * Telephone Encounter - Curtis Funk Pss - 08/27/2022 2:04 PM EST Patient has been identified by name and date of : Yes Last office visit in this department: 04/02/2022 RX INSTRUCTIONS: Patient aware RX will be sent to pharmacy. No need to notify patient. Patient phones requesting refills as follows: Requested Prescriptions Pending Prescriptions Disp Refills amLODIPine (NORVASC) 10 mg tablet 90 tablet 1 Sig: Take 1 tablet by mouth once daily. Please review and advise. Curtis Funk Pss documented in this encounterMercy [facility]11-01-2022 History of Present illness Narrative* Gricelda Razo LPN - 08/05/2022 11:05 AM EDT Patient given influenza high dose IM in the left deltoid. Patient tolerated injection well. Lot#: [id number] Exp date: 03apr2023 Gricelda Razo LPN documented in this encounterMercy [facility]10-31-2022 History of Present illness Narrative* Robert Combs MD - 08/04/2022 12:51 PM EDT Robert Combs MD Department of Orthopaedics Orthopaedics [address] [facility] [address] Dept: [phone] Dept August 04, 2022 CHIEF COMPLAINT: New and Dislocation of the Right Shoulder HPI Patient here today with his for right shoulder dislocation. He fell at home, but is not able to give any details. reports that he was on his right side when she found him. He was seen at [facility] ED following the injury. Images loaded into [employer]. He has been sleeping in a chair and wearing the sling, except to shower. He is right hand dominant. ASSESSMENT: S43.014A Anterior dislocation of right shoulder, initial encounter (primary encounter diagnosis) S46.011A Traumatic tear of right rotator cuff, unspecified tear extent, initial encounter PLAN: We had a discussion about concerns about his rotator cuff after shoulder dislocation. He is can continue gentle range of motion at waist level and begin using the shoulder more. Long as he does not have any setbacks, we can reevaluate the shoulder to determine any further investigation is necessary. FOLLOW UP INSTRUCTIONS: 6 weeks or so Mr. Lory Johnson was advised as to contrast therapies and/or to take analgesics/anti-inflammatories as needed and all contraindications were reviewed. OBJECTIVE: Mr. Lory Johnson is a pleasant 77 year old in no apparent distress. Gen:There were no vitals taken for this visit. nl development, obese, no deformities ENT: Normocephalic, normal hearing, moist mucosa CV: Pulses:Radial= 2+ and symmetric, capillary refill < 2 secs, no peripheral edema/varicosities Skin: no rash, bruising or lesions. Good turgor. Psych: cooperative and appropriate, alert and oriented x 3, good mood and affect. Musculoskeletal: Gentle internal and external rotation at his waist without any significant pain and no obvious instability. Neurovascular exams intact in the extremity. IMAGING: Imaging from an outside facility shows an anterior shoulder dislocation and subsequent reduction. No obvious fracture noted. Supporting Subjective Information Below: Past Medical History: PAST MEDICAL HISTORY Diagnosis Date 3-vessel CAD 11/03/2013 Abdominal aortic aneurysm (AAA) without rupture 11/08/2016 US: 11/2016 2.6 x 2.4 x 2.0 cm, Repeat in a year US: 02/2018 Stable, 03/2019 US said no AAA, US 08/2020 no AAA no further studies needed. Actinic Keratoses (Premalignant AK's) 08/16/2013 Advance directive discussed with patient 03/26/2022 Discussed 03/2022 Anemia CAD S/P percutaneous coronary angioplasty 11/02/2013 Chronic left shoulder pain 06/30/2018 Dementia without behavioral disturbance (HCC) 05/15/2016 MMSE: 22 05/2016, MMSE: 06/2019, 23 Elevated fasting blood sugar 12/01/2018 Essential hypertension, benign 05/12/2006 Ex-smoker 10/31/2016 Started at age 15, up to 1 PPD quite at age 34 Fam hx-ischem heart disease 08/21/2009 Sister, mother Family history of colon cancer in father 06/09/2018 GERD without esophagitis 12/14/2018 History of CVA (cerebrovascular accident) 02/16/2018 Right posterior internal capsule Impaired driving skills 08/16/2019 Per Occupational Therapy Community Mobility and IADL report patient not safe to drive nor should hereturn to driving. Lipoma of right forearm 05/05/2017 Living will on file 03/26/2022 DPA: Refugio () Malignant neoplasm of prostate (HCC) 03/01/200802/09 PATH: Left Lobe: GS 7 ( 3+4) in 1/4 cores Right Lobe : GS 6 ( 3 +) in 3/5 cores External Beam Radiotherapy -- Dr. Rishabh Yao, Renetta Landry follow Mixed hyperlipidemia 12/03/2002 NAIN (obstructive sleep apnea) 06/09/2018 Wearing CPAP, Per Neurology (Dr. Scott) Overactive bladder 08/01/2019 Rosacea 07/2003 S/P right coronary artery (RCA) stent placement 05/15/2017 Past Surgical History: PAST SURGICAL HISTORY Procedure Laterality Date 2D ECHO (EXEP) 02/11/2018 EF=65%, mild jain dysf, mildly enlarged LA, 2D ECHO (EXEP) 10/03/2020 EF=65%, mild Jain dysfunction, COLONOSCOPY FLX DX W/COLLJ SPEC WHEN PFRMD 02/2002 Colonoscopy COLONOSCOPY FLX DX W/COLLJ SPEC WHEN PFRMD 09/14/2007 normal COLONOSCOPY FLX DX W/COLLJ SPEC WHEN PFRMD 07/23/2012 normal COLONOSCOPY FLX DX W/COLLJ SPEC WHEN PFRMD 07/28/2018 Colonoscopy, repeat 5 years ESOPHAGOGASTRODUODENOSCOPY TRANSORAL DIAGNOSTIC 02/2002 EGD ESOPHAGOGASTRODUODENOSCOPY TRANSORAL DIAGNOSTIC 12/22/2002 hiatal hernia, distal esophagitis ESOPHAGOGASTRODUODENOSCOPY TRANSORAL DIAGNOSTIC 08/03/2015 EGD ESOPHAGOGASTRODUODENOSCOPY TRANSORAL DIAGNOSTIC 11/15/2015 EGD ESOPHAGOGASTRODUODENOSCOPY TRANSORAL DIAGNOSTIC 08/13/2020 EGD HEART CATHETERIZATION 2013 Angioplasty, Promus stent to right coronary LEXISCAN STRESS TEST 10/03/[address] Morton RPR UMBILICAL HRNA 5 YRS/> REDUCIBLE 2002 Family History: FAMILY HISTORY Problem Relation Age of Onset Prostate Cancer Father Colon Cancer Father Dx in his 70s Heart Father Had heart issues per patient Heart Sister had bypass surgery (mid-40's) Heart Mother Had heart issues per patient Heart Brother had bypass surgery Social History: Social History Tobacco Use Smoking status: Former Packs/day: 2.50 Years: 25.00 Pack years: 62.50 Types: Cigarettes Quit date: 10/05/1978 Years since quittin.8 Smokeless tobacco: Never Tobacco comments: quit 1978 Vaping Use Vaping Use: Never used Substance Use Topics Alcohol use: No Drug use: No Medications: Current Outpatient Medications Medication Sig solifenacin (VESICARE) 5 mg tablet Take 1 tablet by mouth once daily. metoprolol succinate ER (TOPROL XL) 50 mg 24 hr tablet Take 1.5 tablets by mouth once daily. losartan (COZAAR) 100 mg tablet Take 1 tablet by mouth once daily. pantoprazole DR (PROTONIX) 40 mg tablet Take 1 tablet by mouth daily before breakfast. Take on empty stomach, 1/2 hr before meal. donepezil (ARICEPT) 10 mg tablet Take 1 tablet by mouth daily at bedtime. pravastatin (PRAVACHOL) 80 mg tablet Take 1 tablet by mouth daily at bedtime. amLODIPine (NORVASC) 10 mg tablet Take 1 tablet by mouth once daily. cholecalciferol (VITAMIN D3) 1,000 unit tab tablet Take 1,000 Units by mouth once daily. ASCORBIC ACID, VITAMIN C, ORAL Take by mouth. Cinnamon Bark 500 mg cap Take 1 capsule by mouth once daily. aspirin, enteric coated (ECOTRIN LOW STRENGTH) 81 mg EC tablet Take 1 tablet by mouth once daily. DAILY MULTIVITAMIN TAB Take one(1) tablet daily. predniSONE (DELTASONE) 20 mg tablet 1 tab a day by mouth for the next 7 days (Patient not taking: Reported on 09/09/2021 ) MELATONIN ORAL Take by mouth. (Patient not taking: Reported on 03/26/2022 ) Blood Pressure Cuff - Home Use BLOOD PRESSURE CUFF FOR HOME USE. nitroglycerin sublingual (NITROSTAT) 0.4 mg SL tablet Dissolve 1 tablet under the tongue every 5 minutes as needed for Chest Pain. No current facility-administered medications for this visit. Allergies: Zithromax [Azithromycin], Beta-Shravan S [Other], Lipitor [Atorvastatin], Viagra [Sildenafil], and Zetia [Ezetimibe] ROS: General (negative for fatigue, malaise, weight loss/gain) HEENT (negative for headache, earache, recent vision changes, sinus pain, sore throat) Respiratory (no recent shortness of breath, hemoptysis) CV (negative for chest tightness, palpitations) Musculoskeletal (see HPI) Psych (no depression, anxiety) REFERRING PHYSICIAN: Mr. Lory Johnson was referred to me for consultation by the following physician. This consultation note will be sent to the following physician by either mail or electronicmedical record. SELF Adama Mendoza MD [address] [facility] [address] Robert Combs MD documented in this encounterMercy Health [facility]10-25-2022 Miscellaneous Notes* Telephone Encounter - Ayesha Dumont Ma - 07/29/2022 10:52 AM EDT I called and spoke with Refugio, patient had dislocated shoulder and was seen at [facility] ED. Advised Refugio to continue with instructions from ED until we see patient in the office. Appointment was moved up to 08/04/2022. She verbalized understanding. * Telephone Encounter - Twyla Seaman RN - 07/28/2022 2:24 PM EDT Refugio called. Lory has an appointment to see Dr. Combs for a right shoulder injury. Refugio has multiple questions about how to care for Lory until he sees Dr. Combs in two weeks. She would like to speak with someone from Dr. Combs's office. Twyla Seaman, RN documented in this encounterMercy Health [facility]rb[facility]10-24-2022 Miscellaneous Notes* Telephone Encounter - Ramon Valle Ma - 07/28/2022 3:16 PM EDT Call to pt , Refugio. Notified her of below. Appreciated the phone call. Verbalized understanding. Ramon Valle Ma * Telephone Encounter - Adama Mendoza MD - 07/28/2022 2:53 PM EDT Order placed. * Telephone Encounter - Monae Nino LPN - 07/28/2022 2:21 PM EDT calls to report that pt fell 07/24/22 and dislocated right shoulder. Pt has an appt with ortho(Dr. Combs) 08/07. was told by nurse in ortho office to get a referral from pcp. Monae Nino LPN documented in this encounterMercy Health [facility]rb[facility]10-24-2022 Miscellaneous Notes* Telephone Encounter - Adama Mendoza MD - 07/28/2022 2:47 PM EDT The following approved medication requests have been transmitted electronically. Requested Prescriptions Signed Prescriptions Disp Refills solifenacin (VESICARE) 5 mg tablet 90 tablet 1 Sig: Take 1 tablet by mouth once daily. Authorizing Provider: ADAMA MENDOZA metoprolol succinate ER (TOPROL XL) 50 mg 24 hr tablet 135 tablet 1 Sig: Take 1.5 tablets by mouth once daily. Authorizing Provider: ADAMA MENDOZA losartan (COZAAR) 100 mg tablet 90 tablet 1 Sig: Take 1 tablet by mouth once daily. Authorizing Provider: ADAMA MENDOZA MD * Telephone Encounter - Judith Vanegas MA - 07/28/2022 12:10 PM EDT Patient has been identified by name and date of : Yes Requested Prescriptions Pending Prescriptions Disp Refills solifenacin (VESICARE) 5 mg tablet 90 tablet 3 Sig: Take 1 tablet by mouth once daily. metoprolol succinate ER (TOPROL XL) 50 mg 24 hr tablet 135 tablet 3 Sig: Take 1.5 tablets by mouth once daily. losartan (COZAAR) 100 mg tablet 90 tablet 3 Sig: Take 1 tablet by mouth once daily. RX INSTRUCTIONS: Patient aware RX will be sent to pharmacy. No need to notify patient. Judith Vanegas MA Kyle: 03/2022 Nov; 10/2022 Last refill; 01/2022 * Telephone Encounter - Jaci Salazar - 07/28/2022 12:07 PM EDT Patient has been identified by name and date of : Yes Requested Prescriptions Pending Prescriptions Disp Refills solifenacin (VESICARE) 5 mg tablet 90 tablet 3 Sig: Take 1 tablet by mouth once daily. metoprolol succinate ER (TOPROL XL) 50 mg 24 hr tablet 135 tablet 3 Sig: Take 1.5 tablets by mouth once daily. losartan (COZAAR) 100 mg tablet 90 tablet 3 Sig: Take 1 tablet by mouth once daily. RX INSTRUCTIONS: Patient aware RX will be sent to pharmacy. No need to notify patient. Jaci Salazar documented in this encounterMercy Health [facility] Hospital10-06-2022 Miscellaneous Notes* Telephone Encounter - Althea Jarquin [facility] - 07/10/2022 2:49 PM EDT Patient has been identified by name and date of : Yes Requested Prescriptions Pending Prescriptions Disp Refills pantoprazole DR (PROTONIX) 40 mg tablet 30 tablet 5 Sig: Take 1 tablet by mouth daily before breakfast. Take on empty stomach, 1/2 hr before meal. KYLE-04/02/22 Labs-03/26/22 NOV-10/09/22 med filled 01/06/22 RX INSTRUCTIONS: Patient aware RX will be sent to pharmacy. No need to notify patient. Althea Jarquin Med[facility] documented in this encounterMercy Health [facility]09-08-2022 Miscellaneous Notes* Telephone Encounter - Adama Mendoza MD - 06/12/2022 4:44 PM EDT The following approved medication requests have been transmitted electronically. Requested Prescriptions Signed Prescriptions Disp Refills donepezil (ARICEPT) 10 mg tablet 30 tablet 5 Sig: Take 1 tablet by mouth daily at bedtime. Authorizing Provider: ADAMA MENDOZA MD * Telephone Encounter - Jeremías Villegas LPN - 06/12/2022 12:45 PM EDT KYLE 04/02/22 NOV 10/09/22 * Telephone Encounter - Harriet Salazar - 06/12/2022 9:33 AM EDT Patient has been identified by name and date of : Yes Requested Prescriptions Pending Prescriptions Disp Refills donepezil (ARICEPT) 10 mg tablet 30 tablet 5 Sig: Take 1 tablet by mouth daily at bedtime. RX INSTRUCTIONS: Patient aware RX will be sent to pharmacy. No need to notify patient. Harriet Elizabeth Pss documented in this encounterMercy Health [facility] Hospital08-31-2022 Miscellaneous Notes* Telephone Encounter - Judith Vanegas MA - 06/04/2022 9:15 AM EDT Patient has been identified by name and date of : Yes Requested Prescriptions Pending Prescriptions Disp Refills pravastatin (PRAVACHOL) 80 mg tablet 30 tablet 5 Sig: Take 1 tablet by mouth daily at bedtime. RX INSTRUCTIONS: Patient aware RX will be sent to pharmacy. No need to notify patient. Judith Vanegas MA Kyle: 03/2022 Nov: 10/2022 Last refill: 11/2021 * Telephone Encounter - Avis Salazar - 06/04/2022 9:00 AM EDT Patient has been identified by name and date of : Yes Requested Prescriptions Pending Prescriptions Disp Refills pravastatin (PRAVACHOL) 80 mg tablet 30 tablet 5 Sig: Take 1 tablet by mouth daily at bedtime. RX INSTRUCTIONS: Patient aware RX will be sent to pharmacy. No need to notify patient. Avis Salazar documented in this encounterMercy Health [facility]rb[facility] Hospital07-01-2022 History of Present illness Narrative* Eulalia Odonnell MD - 04/04/2022 4:09 PM EDT Lory Johnson 1945 REFERRING PHYSICIAN: Danita Meraz PA-C CHIEF COMPLAINT: Consult (lump on right forearm) HPI: The patient is a 77 year old male presents with a skin lesion of right upper extremity. He has noted it for years. He states that it bothers him when he rests his arms on a table. He notes no changes in size. He denies trauma to the area.. PAST MEDICAL HISTORY Diagnosis Date 3-vessel CAD 11/03/2013 Abdominal aortic aneurysm (AAA) without rupture (HCC) 11/08/2016 US: 11/2016 2.6 x 2.4 x 2.0 cm, Repeat in a year US: 02/2018 Stable, 03/2019 US said no AAA, US 08/2020 no AAA no further studies needed. Actinic Keratoses (Premalignant AK's) 08/16/2013 Advance directive discussed with patient 03/26/2022 Discussed 03/2022 Anemia CAD S/P percutaneous coronary angioplasty 11/02/2013 Chronic left shoulder pain 06/30/2018 Dementia without behavioral disturbance (HCC) 05/15/2016 MMSE: 22 05/2016, MMSE: 06/2019, 23 Elevated fasting blood sugar 12/01/2018 Essential hypertension, benign 05/12/2006 Ex-smoker 10/31/2016 Started at age 15, up to 1 PPD quite at age 34 Fam hx-ischem heart disease 08/21/2009 Sister, mother Family history of colon cancer in father 06/09/2018 GERD without esophagitis 12/14/2018 History of CVA (cerebrovascular accident) 02/16/2018 Right posterior internal capsule Impaired driving skills 08/16/2019 Per Occupational Therapy Community Mobility and IADL report patient not safe to drive nor should hereturn to driving. Lipoma of right forearm 05/05/2017 Living will on file 03/26/2022 DPA: Refugio () Malignant neoplasm of prostate (HCC) 03/01/200802/09 PATH: Left Lobe: GS 7 ( 3+4) in 1/4 cores Right Lobe : GS 6 ( 3 +) in 3/5 cores External Beam Radiotherapy -- Dr. Rishabh Yao, Renetta Landry follow Mixed hyperlipidemia 12/03/2002 NAIN (obstructive sleep apnea) 06/09/2018 Wearing CPAP, Per Neurology (Dr. Scott) Overactive bladder 08/01/2019 Rosacea 07/2003 S/P right coronary artery (RCA) stent placement 05/15/2017 PAST SURGICAL HISTORY Procedure Laterality Date 2D ECHO (EXEP) 02/11/2018 EF=65%, mild jain dysf, mildly enlarged LA, 2D ECHO (EXEP) 10/03/2020 EF=65%, mild Jain dysfunction, COLONOSCOPY FLX DX W/COLLJ SPEC WHEN PFRMD 02/2002 Colonoscopy COLONOSCOPY FLX DX W/COLLJ SPEC WHEN PFRMD 09/14/2007 normal COLONOSCOPY FLX DX W/COLLJ SPEC WHEN PFRMD 07/23/2012 normal COLONOSCOPY FLX DX W/COLLJ SPEC WHEN PFRMD 07/28/2018 Colonoscopy, repeat 5 years ESOPHAGOGASTRODUODENOSCOPY TRANSORAL DIAGNOSTIC 02/2002 EGD ESOPHAGOGASTRODUODENOSCOPY TRANSORAL DIAGNOSTIC 12/22/2002 hiatal hernia, distal esophagitis ESOPHAGOGASTRODUODENOSCOPY TRANSORAL DIAGNOSTIC 08/03/2015 EGD ESOPHAGOGASTRODUODENOSCOPY TRANSORAL DIAGNOSTIC 11/15/2015 EGD ESOPHAGOGASTRODUODENOSCOPY TRANSORAL DIAGNOSTIC 08/13/2020 EGD HEART CATHETERIZATION 2013 Angioplasty, Promus stent to right coronary LEXISCAN STRESS TEST 10/03/[address] Morton RPR UMBILICAL HRNA 5 YRS/> REDUCIBLE 2002 Current Outpatient Medications Medication Sig amLODIPine (NORVASC) 10 mg tablet Take 1 tablet by mouth once daily. solifenacin (VESICARE) 5 mg tablet Take 1 tablet by mouth once daily. losartan (COZAAR) 100 mg tablet Take 1 tablet by mouth once daily. metoprolol succinate ER (TOPROL XL) 50 mg 24 hr tablet Take 1.5 tablets by mouth once daily. pantoprazole DR (PROTONIX) 40 mg tablet Take 1 tablet by mouth daily before breakfast. Take on empty stomach, 1/2 hr before meal. donepezil (ARICEPT) 10 mg tablet Take 1 tablet by mouth daily at bedtime. pravastatin (PRAVACHOL) 80 mg tablet Take 1 tablet by mouth daily at bedtime. cholecalciferol (VITAMIN D) 1,000 unit tab tablet Take 1,000 Units by mouth once daily. ASCORBIC ACID, VITAMIN C, ORAL Take by mouth. Cinnamon Bark (CINNAMON) 500 mg cap Take 1 capsule by mouth once daily. aspirin, enteric coated (ECOTRIN LOW STRENGTH) 81 mg EC tablet Take 1 tablet by mouth once daily. Blood Pressure Cuff - Home Use BLOOD PRESSURE CUFF FOR HOME USE. nitroglycerin sublingual (NITROSTAT) 0.4 mg SL tablet Dissolve 1 tablet under the tongue every 5 minutes as needed for Chest Pain. DAILY MULTIVITAMIN TAB Take one(1) tablet daily. predniSONE (DELTASONE) 20 mg tablet 1 tab a day by mouth for the next 7 days (Patient not taking: Reported on 09/09/2021 ) MELATONIN ORAL Take by mouth. (Patient not taking: Reported on 03/26/2022 ) ALLERGIES: Zithromax [Azithromycin], Beta-Shravan S [Other], Lipitor [Atorvastatin], Viagra [Sildenafil], and Zetia [Ezetimibe] PERSONAL HISTORY: Social History Tobacco Use Smoking status: Former Smoker Packs/day: 2.50 Years: 25.00 Pack years: 62.50 Types: Cigarettes Quit date: 10/05/1978 Years since quittin.5 Smokeless tobacco: Never Used Tobacco comment: quit 1978 Vaping Use Vaping Use: Never used Substance Use Topics Alcohol use: No Drug use: No FAMILY HISTORY Problem Relation Age of Onset Prostate Cancer Father Colon Cancer Father Dx in his 70s Heart Father Had heart issues per patient Heart Sister had bypass surgery (mid-40's) Heart Mother Had heart issues per patient Heart Brother had bypass surgery The review of systems data was entered by the nurse and reviewed by al Nursing Notes: Xin Becker LPN 04/04/2022 2:37 PM Signed REVIEW OF SYSTEMS: General: The patient denies fatigue, denies weight loss, denies weight gain, denies feeling hot, and denies feelings of cold. Eyes: The patient denies glaucoma, denies eye injury/surgery, wears glasses or contacts. Ear/Nose/Throat: The patient denies allergies, denies hayfever, denies ear infections, and denies bloody noses. Cardiovascular: The patient denies chest pain, denies heart disease, denies high blood pressure,notes cardiac stent, denies prior heart attack, denies irregular heart beat, denies high cholesterol, denies poor circulation, denies heart failure, other cardiac issues, denies claudication, denies coldfeet, denies peripheral arterial stent. Respiratory: The patient denies tuberculosis, denies pneumonia, denies frequent cough, denies pulmonary embolism, denies shortness of breath, and denies coughing up blood. Gastrointestinal: The patient denies difficulty swallowing, denies acid reflux, denies ulcers, denies vomiting, denies jaundice/hepatitis, denies gallbladder problems, denies black or tarry stools, denies hemorrhoids, denies bleeding from rectum, denies diverticulitis, denies constipation, denies diarrhea, denies loss of stool control, and denies hernias. Kidney/Bladder: The patient denies kidney stones, denies urine infections, and denies bloody urine. Skin: The patient denies a history of skin cancer, denies bleeding/changing moles, and denies a history of skin rash. Neurologic: The patient denies a history of epilepsy/convulsions, denies headaches, denies head/spinal injuries, and denies stroke/TIA. Psychiatric: The patient denies psychiatric medications, denies depression, and denies voices, denies substance abuse. Endocrine: The patient denies thyroid disorders, denies diabetes, and denies hormonal problems. Hematologic: The patient denies a history of bruising, denies bleeding, and denies anemia, denies blood clots. Infections: The patient denies a history of measles and mumps, denies rheumatic fever, and denies sexually transmitted diseases. Musculoskeletal: The patient denies back pain/injury, denies back problems, denies sciatica, deniesknee/foot trouble, denies arthritis, or denies gout. When was patient's last Mammogram screening? N/A Last Colonoscopy: 2017 Xin Becker LPN PHYSICAL EXAMINATION: General: The patient is 77 year old male, well nourished, well hydrated in no acute distress. The patient is oriented to time, place, and person. VITALS: Blood pressure 150/72, pulse 75, temperature 36.6 C (97.9 F), height 170.2 cm (5' 7), weight 100.2 kg (221 lb), SpO2 94 %. Body mass index is 34.61 kg/m . Head: Normal cephalic, atraumatic Eyes: pupils are equally round, sclera are clear/anicteric Neck is supple with no tracheal deviation Respiratory: Normal respiratory excursion and pattern. Abdominal exam: benign Extremities: skin lesion just a little over 1 cm subcutaneous lesion distal to elbow of RUE, could be lipoma, dorsal aspect Neuro: non focal Psych: normal mood Assessment IMPRESSION: skin lesion PLAN: I have discussed the above with the patient and his who is present with him. I have offered excision of this skin lesion, however patient is on aspirin, he will have to hold this for at least three days prior to the procedure. I have explained the procedure to the patient. To be done in the office with local anesthesia I have counseled the patient as to the risks of the procedure, including but not limited to: infection, bleeding, injury to any blood vessels/nerves, scar tissue, wound infections, complications of anesthesia, etc. the patient understands. The patient will think about it. He did not schedule for any procedure in this patient encounter. I have answered all questions to the patient s satisfaction and the patient has no further questions. I have confirmed and edited as necessary, the PFSH and ROS obtained by others. Consultation requested by Danita Meraz for an opinion regarding patient's skin lesion. My finalrecommendations will be communicated back to the requesting physician by way of shared Medical record or letter to requesting physician via US mail. . Diagnoses: (R22.31) Skin lump of arm, right Return to Clinic: The patient is instructed to follow-up with me if any worsening signs/symptom. Medical Decision Making: Problems: Low: Acute, uncomplicated illness or injury Medical Decision Making Level: 2 - Straightforward Eulalia Odonnell MD [facility] Nurse Note* Xin Becker, HEEL SPRAYER FIRST - 04/04/2022 2:37 PM EDT REVIEW OF SYSTEMS: General: The patient denies fatigue, denies weight loss, denies weight gain, denies feeling hot, and denies feelings of cold. Eyes: The patient denies glaucoma, denies eye injury/surgery, wears glasses or contacts. Ear/Nose/Throat: The patient denies allergies, denies hayfever, denies ear infections, and denies bloody noses. Cardiovascular: The patient denies chest pain, denies heart disease, denies high blood pressure,notes cardiac stent, denies prior heart attack, denies irregular heart beat, denies high cholesterol, denies poor circulation, denies heart failure, other cardiac issues, denies claudication, denies coldfeet, denies peripheral arterial stent. Respiratory: The patient denies tuberculosis, denies pneumonia, denies frequent cough, denies pulmonary embolism, denies shortness of breath, and denies coughing up blood. Gastrointestinal: The patient denies difficulty swallowing, denies acid reflux, denies ulcers, denies vomiting, denies jaundice/hepatitis, denies gallbladder problems, denies black or tarry stools, denies hemorrhoids, denies bleeding from rectum, denies diverticulitis, denies constipation, denies diarrhea, denies loss of stool control, and denies hernias. Kidney/Bladder: The patient denies kidney stones, denies urine infections, and denies bloody urine. Skin: The patient denies a history of skin cancer, denies bleeding/changing moles, and denies a history of skin rash. Neurologic: The patient denies a history of epilepsy/convulsions, denies headaches, denies head/spinal injuries, and denies stroke/TIA. Psychiatric: The patient denies psychiatric medications, denies depression, and denies voices, denies substance abuse. Endocrine: The patient denies thyroid disorders, denies diabetes, and denies hormonal problems. Hematologic: The patient denies a history of bruising, denies bleeding, and denies anemia, denies blood clots. Infections: The patient denies a history of measles and mumps, denies rheumatic fever, and denies sexually transmitted diseases. Musculoskeletal: The patient denies back pain/injury, denies back problems, denies sciatica, deniesknee/foot trouble, denies arthritis, or denies gout. When was patient's last Mammogram screening? N/A Last Colonoscopy: 2017 Xin Becker LPN documented in this encounterMer[facility] History of Present illness Narrative* Danita Meraz PA-C - 04/02/2022 7:11 AM EDT Chief Complaint Patient presents with: Derm Problem: patient has lump right elbow HPI Lory Johnson is a 77 year old male who presents here today for Above Complaints.. Patient reports a bump on R elbow for the past couple months. Painful if bumped on something. Just mildly tender if touched. Patient does feel like it has grown in size some. Past medical history, appointments, medications, allergies reviewed. Previous Medical History PAST MEDICAL HISTORY Diagnosis Date 3-vessel CAD 11/03/2013 Abdominal aortic aneurysm (AAA) without rupture (HCC) 11/08/2016 US: 11/2016 2.6 x 2.4 x 2.0 cm, Repeat in a year US: 02/2018 Stable, 03/2019 US said no AAA, US 08/2020 no AAA no further studies needed. Actinic Keratoses (Premalignant AK's) 08/16/2013 Advance directive discussed with patient 03/26/2022 Discussed 03/2022 Anemia CAD S/P percutaneous coronary angioplasty 11/02/2013 Chronic left shoulder pain 06/30/2018 Dementia without behavioral disturbance (HCC) 05/15/2016 MMSE: 22 05/2016, MMSE: 06/2019, 23 Elevated fasting blood sugar 12/01/2018 Essential hypertension, benign 05/12/2006 Ex-smoker 10/31/2016 Started at age 15, up to 1 PPD quite at age 34 Fam hx-ischem heart disease 08/21/2009 Sister, mother Family history of colon cancer in father 06/09/2018 GERD without esophagitis 12/14/2018 History of CVA (cerebrovascular accident) 02/16/2018 Right posterior internal capsule Impaired driving skills 08/16/2019 Per Occupational Therapy Community Mobility and IADL report patient not safe to drive nor should hereturn to driving. Lipoma of right forearm 05/05/2017 Living will on file 03/26/2022 DPA: [place] () Malignant neoplasm of prostate (HCC) 03/01/200802/09 PATH: Left Lobe: GS 7 ( 3+4) in 1/4 cores Right Lobe : GS 6 ( 3 +) in 3/5 cores External Beam Radiotherapy -- Dr. Rishabh Yao, Renetta Landry follow Mixed hyperlipidemia 12/03/2002 NAIN (obstructive sleep apnea) 06/09/2018 Wearing CPAP, Per Neurology (Dr. Scott) Overactive bladder 08/01/2019 Rosacea 07/2003 S/P right coronary artery (RCA) stent placement 05/15/2017 Previous Surgical History PAST SURGICAL HISTORY Procedure Laterality Date 2D ECHO (EXEP) 02/11/2018 EF=65%, mild jain dysf, mildly enlarged LA, 2D ECHO (EXEP) 10/03/2020 EF=65%, mild Jain dysfunction, COLONOSCOPY FLX DX W/COLLJ SPEC WHEN PFRMD 02/2002 Colonoscopy COLONOSCOPY FLX DX W/COLLJ SPEC WHEN PFRMD 09/14/2007 normal COLONOSCOPY FLX DX W/COLLJ SPEC WHEN PFRMD 07/23/2012 normal COLONOSCOPY FLX DX W/COLLJ SPEC WHEN PFRMD 07/28/2018 Colonoscopy, repeat 5 years ESOPHAGOGASTRODUODENOSCOPY TRANSORAL DIAGNOSTIC 02/2002 EGD ESOPHAGOGASTRODUODENOSCOPY TRANSORAL DIAGNOSTIC 12/22/2002 hiatal hernia, distal esophagitis ESOPHAGOGASTRODUODENOSCOPY TRANSORAL DIAGNOSTIC 08/03/2015 EGD ESOPHAGOGASTRODUODENOSCOPY TRANSORAL DIAGNOSTIC 11/15/2015 EGD ESOPHAGOGASTRODUODENOSCOPY TRANSORAL DIAGNOSTIC 08/13/2020 EGD HEART CATHETERIZATION 2013 Angioplasty, Promus stent to right coronary LEXISCAN STRESS TEST 10/03/[address] Morton RPR UMBILICAL HRNA 5 YRS/> REDUCIBLE 2002 Family History FAMILY HISTORY Problem Relation Age of Onset Prostate Cancer Father Colon Cancer Father Dx in his 70s Heart Father Had heart issues per patient Heart Sister had bypass surgery (mid-40's) Heart Mother Had heart issues per patient Heart Brother had bypass surgery Patient Allergies ALLERGIES Allergen Reactions Zithromax [Azithrom* Itching Beta-Shravan S [Oth* Unknown Lipitor [Atorvastat* Intolerance Viagra [Sildenafil] Unknown Zetia [Ezetimibe] Mental Status Change Current Medications Current Outpatient Medications on File Prior to Visit Medication Sig amLODIPine (NORVASC) 10 mg tablet Take 1 tablet by mouth once daily. solifenacin (VESICARE) 5 mg tablet Take 1 tablet by mouth once daily. losartan (COZAAR) 100 mg tablet Take 1 tablet by mouth once daily. metoprolol succinate ER (TOPROL XL) 50 mg 24 hr tablet Take 1.5 tablets by mouth once daily. pantoprazole DR (PROTONIX) 40 mg tablet Take 1 tablet by mouth daily before breakfast. Take on empty stomach, 1/2 hr before meal. donepezil (ARICEPT) 10 mg tablet Take 1 tablet by mouth daily at bedtime. pravastatin (PRAVACHOL) 80 mg tablet Take 1 tablet by mouth daily at bedtime. cholecalciferol (VITAMIN D) 1,000 unit tab tablet Take 1,000 Units by mouth once daily. ASCORBIC ACID, VITAMIN C, ORAL Take by mouth. Cinnamon Bark (CINNAMON) 500 mg cap Take 1 capsule by mouth once daily. aspirin, enteric coated (ECOTRIN LOW STRENGTH) 81 mg EC tablet Take 1 tablet by mouth once daily. Blood Pressure Cuff - Home Use BLOOD PRESSURE CUFF FOR HOME USE. nitroglycerin sublingual (NITROSTAT) 0.4 mg SL tablet Dissolve 1 tablet under the tongue every 5 minutes as needed for Chest Pain. DAILY MULTIVITAMIN TAB Take one(1) tablet daily. predniSONE (DELTASONE) 20 mg tablet 1 tab a day by mouth for the next 7 days (Patient not taking: Reported on 09/09/2021 ) MELATONIN ORAL Take by mouth. (Patient not taking: Reported on 03/26/2022 ) No current facility-administered medications on file prior to visit. Social History Social History Tobacco Use Smoking status: Former Smoker Packs/day: 2.50 Years: 25.00 Pack years: 62.50 Types: Cigarettes Quit date: 10/05/1978 Years since quittin.5 Smokeless tobacco: Never Used Tobacco comment: quit 1978 Substance Use Topics Alcohol use: No Drug use: No Review of Symptoms REVIEW OF SYSTEMS GENERAL: No weight loss, malaise or fevers see hpi EXAM: BP 138/76 (BP Site: Left Arm, BP Position: Sitting, BP Cuff Size: Large Adult) Pulse 60 Temp 36.6 C (97.8 F) Resp 16 Wt 100.7 kg (222 lb) BMI 34.77 kg/m General Appearance: Well appearing, alert, in no acute distress, well-hydrated, well nourished.. Skin: approx 1cm lump under skin noted on right forearm. No erythema;. Mild tenderness. Health Maintenance List COVID-19 VACCINE(4 - Booster for Pfizer series) due on 11/26/2021 LDL CHOLESTEROL due on 03/26/2023 ANNUAL PCP TEAM CHRONIC DISEASE VISIT due on 03/26/2023 BP CONTROLLED (<130/80) due on 03/26/2023 DIABETES SCREEN due on 03/26/2025 DTAP,TDAP,TD(3 - Td or Tdap) due on 04/09/2028 INFLUENZA Completed ADVANCE DIRECTIVE DISCUSSION Completed SHINGRIX VACCINE Completed PNEUMOCOCCAL: 65+ Completed Data reviewed ASSESSMENT/PLAN: 1. Skin lump of arm, right - ICD9: 782.2, ICD10: R22.31 Lipoma vs cyst. Given the change and tenderness, will get opinion from surgeon for possible removal. - CONSULT TO GENERAL SURGERY Danita Meraz PA-C documented in this encounterMer[facility]06-[facility] History of Present illness Narrative* Adama Mendoza MD - 03/26/2022 3:00 PM EDT Medicare Yearly Visit Medical B eligibilty date 03/05/2008 Date of last exam 03/06/2021 PAST MEDICAL HISTORY PAST MEDICAL HISTORY Diagnosis Date 3-vessel CAD 11/03/2013 Abdominal aortic aneurysm (AAA) without rupture (HCC) 11/08/2016 US: 11/2016 2.6 x 2.4 x 2.0 cm, Repeat in a year Actinic Keratoses (Premalignant AK's) 08/16/2013 Anemia CAD S/P percutaneous coronary angioplasty 11/02/2013 Chronic left shoulder pain 06/30/2018 Dementia without behavioral disturbance 05/15/2016 Elevated fasting blood sugar 12/01/2018 Essential hypertension, benign 05/12/2006 Ex-smoker 10/31/2016 Started at age 15, up to 1 PPD quite at age 34 Fam hx-ischem heart disease 08/21/2009 Sister, mother Family history of colon cancer in father 06/09/2018 GERD without esophagitis 12/14/2018 Ischemic cerebrovascular accident (CVA) (HCC) 02/16/2018 Right posterior internal capsule Lipoma of right forearm 05/05/2017 Malignant neoplasm of prostate (HCC) 03/01/200802/09 PATH: Left Lobe: GS 7 ( 3+4) in 1/4 cores Right Lobe : GS 6 ( 3 +) in 3/5 cores External Beam Radiotherapy -- Dr. Rishabh Yao, Renetta Landry follow Mixed hyperlipidemia 12/03/2002 NAIN (obstructive sleep apnea) 06/09/2018 Wearing CPAP, Per Neurology (Dr. Scott) Presence of stent in right coronary artery 11/03/2013 Prostate cancer (HCC) 2007 EBRT Rosacea 07/2003 S/P right coronary artery (RCA) stent placement 05/15/2017 Snoring PAST SURGICAL HISTORY PAST SURGICAL HISTORY Procedure Laterality Date 2D ECHO (EXEP) 02/11/2018 EF=65%, mild jain dysf, mildly enlarged LA, COLONOSCOP W/ OR W/O BRSH SPEC 02/2002 Colonoscopy COLONOSCOP W/ OR W/O BRSH SPEC 09/14/07 normal COLONOSCOP W/ OR W/O BRSH SPEC 07/23/2012 normal COLONOSCOP W/ OR W/O BRSH SPEC 07/28/2018 Colonoscopy EGD W/O OR W/BRUSH/WASH 02/2002 EGD EGD W/O OR W/BRUSH/WASH 12/22/2002 hiatal hernia, distal esophagitis EGD W/O OR W/BRUSH/WASH 08/03/15 EGD EGD W/O OR W/BRUSH/WASH 11/15/15 EGD HEART CATHETERIZATION 2013 Angioplasty, Promus stent to right coronary REPAIR UMBILICAL TEX,5+Y/O,REDUC 2002 Zithromax [Azithromycin]; Beta-Shravan S [Other]; Lipitor [Atorvastatin]; Viagra [Sildenafil]; Zetia [Ezetimibe] Medications reviewed: Yes FAMILY HISTORY FAMILY HISTORY Problem Relation Age of Onset Prostate Cancer Father Colon Cancer Father Dx in his 70s Heart Father Had heart issues per patient Heart Sister had bypass surgery (mid-40's) Heart Mother Had heart issues per patient Heart Brother had bypass surgery SOCIAL HISTORY: Social History Socioeconomic History Marital status: Spouse name: Not on file Number of children: 2 Years of education: Not on file Highest education level: Not on file Social Needs Financial resource strain: Not on file Food insecurity - worry: Not on file Food insecurity - inability: Not on file Transportation needs - medical: Not on file Transportation needs - non-medical: Not on file Occupational History 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 He watches his diet for sodium, low fat and low cholesterol most of the time. List of current specialists seen: Dr. Phelan, End of Live Planning discussed including patients advanced directive wishes: Yes I am willing to follow Lory's advanced directives. Depression screen Depression Screening 05/27/2016 11/25/2017 12/14/2018 03/26/2022 PHQ-2 Score 0 0 0 0 Depression screening tool completed and reviewed. Based on score and interview, patient is not at risk for depression. Screening tool discussed with patient, and I recommended no further interventionat this time. Functional Ability/Safety Screen 1. Was the patient's timed Up and Go test unsteady or longer than 30 seconds? No 2. Does the patient need help with the phone, transportation, shopping,preparing meals, housework, laundry, medications or managing money? Only just doesn't drive 3. Does your home have rugs in the hallway, lack of grab bars in the bathroom, lack of handrails onthe stairs or have poor lighting? No Hearing Evaluation: normal PHYSICAL EXAM BP 140/80 (BP Site: Right Arm, BP Position: Sitting, BP Cuff Size: Large Adult) Pulse 64 Resp 16 Ht 170.2 cm (5' 7) Wt 101.2 kg (223 lb) BMI 34.93 kg/m Alert and oriented X 3: no Body mass index is 34.93 kg/m . Visual acuity:seeing optho See below ASSESSMENT/PLAN: 77 year old male The following prevention plan was discussed during the office visit and provided to the patient: See Below. Adama Mendoza MD Chief Complaint Patient presents with: Medicare Wellness Exam HPI Lory Johnson is a 77 year old male who presents here today for Medicare Annual Visit. Patient with Hx of HTN, elevated fasting blood sugar, CAD, GERD, NAIN, hyperlipidemia, dementia, Hx of prostate cancer, Hx of CVA, as well as those reviewed and addressed below and in ROS. Continues to wear his CPAP nightly. Has seen Dr. Morton. No new concerns. Past medical history, appointments, medications, allergies reviewed. Previous Medical History PAST MEDICAL HISTORY Diagnosis Date 3-vessel CAD 11/03/2013 Abdominal aortic aneurysm (AAA) without rupture (HCC) 11/08/2016 US: 11/2016 2.6 x 2.4 x 2.0 cm, Repeat in a year US: 02/2018 Stable, 03/2019 US said no AAA, US 08/2020 no AAA no further studies needed. Actinic Keratoses (Premalignant AK's) 08/16/2013 Anemia CAD S/P percutaneous coronary angioplasty 11/02/2013 Chronic left shoulder pain 06/30/2018 Dementia without behavioral disturbance (HCC) 05/15/2016 MMSE: 22 05/2016, MMSE: 06/2019, 23 Elevated fasting blood sugar 12/01/2018 Essential hypertension, benign 05/12/2006 Ex-smoker 10/31/2016 Started at age 15, up to 1 PPD quite at age 34 Fam hx-ischem heart disease 08/21/2009 Sister, mother Family history of colon cancer in father 06/09/2018 GERD without esophagitis 12/14/2018 Impaired driving skills 08/16/2019 Per Occupational Therapy Community Mobility and IADL report patient not safe to drive nor should hereturn to driving. Ischemic cerebrovascular accident (CVA) ([facility]) 02/16/2018 Right posterior internal capsule Lipoma of right forearm 05/05/2017 Malignant neoplasm of prostate (HCC) 03/01/200802/09 PATH: Left Lobe: GS 7 ( 3+4) in 1/4 cores Right Lobe : GS 6 ( 3 +) in 3/5 cores External Beam Radiotherapy -- Dr. Rishabh Yao, Renetta Landry follow Mixed hyperlipidemia 12/03/2002 NAIN (obstructive sleep apnea) 06/09/2018 Wearing CPAP, Per Neurology (Dr. Scott) Overactive bladder 08/01/2019 Rosacea 07/2003 S/P right coronary artery (RCA) stent placement 05/15/2017 Previous Surgical History PAST SURGICAL HISTORY Procedure Laterality Date 2D ECHO (EXEP) 02/11/2018 EF=65%, mild jain dysf, mildly enlarged LA, 2D ECHO (EXEP) 10/03/2020 EF=65%, mild Jain dysfunction, COLONOSCOP W/ OR W/O [facility] SPEC 02/2002 Colonoscopy COLONOSCOP W/ OR W/O [facility] SPEC 09/14/2007 normal COLONOSCOP W/ OR W/O [facility] SPEC 07/23/2012 normal COLONOSCOP W/ OR W/O [facility] SPEC 07/28/2018 Colonoscopy, repeat 5 years EGD W/O OR W/BRUSH/WASH 02/2002 EGD EGD W/O OR W/BRUSH/WASH 12/22/2002 hiatal hernia, distal esophagitis EGD W/O OR W/BRUSH/WASH 08/03/2015 EGD EGD W/O OR W/BRUSH/WASH 11/15/2015 EGD EGD W/O OR W/BRUSH/WASH 08/13/2020 EGD HEART CATHETERIZATION 2013 Angioplasty, Promus stent to right coronary LEXISCAN STRESS TEST 10/03/[address] Morton REPAIR UMBILICAL TEX,5+Y/O,REDUC 2002 Family History FAMILY HISTORY Problem Relation Age of Onset Prostate Cancer Father Colon Cancer Father Dx in his 70s Heart Father Had heart issues per patient Heart Sister had bypass surgery (mid-40's) Heart Mother Had heart issues per patient Heart Brother had bypass surgery Patient Allergies ALLERGIES Allergen Reactions Zithromax [Azithrom* Itching Beta-Shravan S [Oth* Unknown Lipitor [Atorvastat* Intolerance Viagra [Sildenafil] Unknown Zetia [Ezetimibe] Mental Status Change Current Medications Current Outpatient Medications on File Prior to Visit Medication Sig amLODIPine (NORVASC) 10 mg tablet Take 1 tablet by mouth once daily. solifenacin (VESICARE) 5 mg tablet Take 1 tablet by mouth once daily. losartan (COZAAR) 100 mg tablet Take 1 tablet by mouth once daily. metoprolol succinate ER (TOPROL XL) 50 mg 24 hr tablet Take 1.5 tablets by mouth once daily. pantoprazole DR (PROTONIX) 40 mg tablet Take 1 tablet by mouth daily before breakfast. Take on empty stomach, 1/2 hr before meal. donepezil (ARICEPT) 10 mg tablet Take 1 tablet by mouth daily at bedtime. pravastatin (PRAVACHOL) 80 mg tablet Take 1 tablet by mouth daily at bedtime. predniSONE (DELTASONE) 20 mg tablet 1 tab a day by mouth for the next 7 days (Patient not taking: Reported on 09/09/2021 ) cholecalciferol (VITAMIN D) 1,000 unit tab tablet Take 1,000 Units by mouth once daily. MELATONIN ORAL Take by mouth. ASCORBIC ACID, VITAMIN C, ORAL Take by mouth. Cinnamon Bark (CINNAMON) 500 mg cap Take 1 capsule by mouth once daily. aspirin, enteric coated (ECOTRIN LOW STRENGTH) 81 mg EC tablet Take 1 tablet by mouth once daily. Blood Pressure Cuff - Home Use BLOOD PRESSURE CUFF FOR HOME USE. nitroglycerin sublingual (NITROSTAT) 0.4 mg SL tablet Dissolve 1 tablet under the tongue every 5 minutes as needed for Chest Pain. DAILY MULTIVITAMIN TAB Take one(1) tablet daily. No current facility-administered medications on file prior to visit. Social History Social History Tobacco Use Smoking status: Former Smoker Packs/day: 2.50 Years: 25.00 Pack years: 62.50 Types: Cigarettes Quit date: 10/05/1978 Years since quittin.5 Smokeless tobacco: Never Used Tobacco comment: quit 1978 Substance Use Topics Alcohol use: No Drug use: No Review of Symptoms REVIEW OF SYSTEMS GENERAL: No weight loss, malaise or fevers HEENT: Negative for frequent or significant headaches, No changes in hearing or vision, no nose bleeds or other nasal problems NECK: Negative for lumps, goiter, pain and significant neck swelling RESPIRATORY: Negative for hemoptysis, wheezing, COPD, dyspnea or shortness of breath. Slight cough with clear phlegm CARDIOVASCULAR: Negative for chest pain, leg swelling, hypertension, CHF or palpitations GI: No nausea, vomiting, or diarrhea, No frequent heartburn or reflux symptoms and no blood : No history of dysuria, blood MUSCULOSKELETAL: Negative for joint pain or swelling, back pain or muscle pain SKIN: Negative for lesions, rash, and itching PSYCH: Negative for sleep disturbance, mood disorder and recent psychosocial stressors HEMATOLOGY/LYMPHOLOGY: Negative for prolonged bleeding, bruising easily or swollen nodes ENDOCRINE: Negative for cold or heat intolerance, polyuria, polydipsia and goiter NEURO: No history of headaches, syncope, paralysis, seizures or tremors EXAM: BP 140/80 (BP Site: Right Arm, BP Position: Sitting, BP Cuff Size: Large Adult) Pulse 64 Resp 16 Ht 170.2 cm (5' 7) Wt 101.2 kg (223 lb) BMI 34.93 kg/m Last 5 Encounter Wt Readings: Date: Wt: 03/26/2022 101.2 kg (223 lb) 09/09/2021 99.8 kg (220 lb) 05/18/2021 100.2 kg (221 lb) 03/06/2021 98.4 kg (217 lb) 02/18/2021 99.3 kg (219 lb) General Appearance: Well appearing, alert, in no acute distress, well-hydrated, well nourished.. Skin: Skin color, texture, turgor normal, no suspicious rashes or lesions. Head: Normocephalic, no masses, lesions, tenderness or abnormalities. Eyes: Anicteric sclera. Pupils are equally round and reactive to light. Extraocular movements are intact. . Ears: External ears, TM's normal, canals clear. Neck: Supple, no adenopathy; thyroid symmetric, normal size, no bruits. Lungs: Lungs clear to auscultation. No wheezing, rhonchi, rales.. Heart: RRR without murmur, gallop, or rubs. No ectopy. Abdomen: Normal abdominal exam, Abdomen soft, non-tender. Bowel sounds normal. No masses, organomegaly. Extremities: No deformities, edema, skin discoloration. Musculoskeletal: . Muscular strength intact, No joint swelling, deformity, or tenderness. Peripheral Pulses: Normal. Neurologic: Gait normal. Reflexes normal and symmetric. Sensation to light touch and crainal nerves2-12. Genitalia: Normal, Penis normal. No urethral discharge. Scrotum normal to palpation. No hernia.. Health Maintenance List DTAP,TDAP,TD(2 - Tdap) due on 05/21/2019 ADVANCE DIRECTIVE DISCUSSION Never done COVID-19 VACCINE(4 - Booster for Pfizer series) due on 11/26/2021 BP CONTROLLED (<130/80) due on 03/06/2022 LDL CHOLESTEROL due on 09/09/2022 ANNUAL PCP TEAM CHRONIC DISEASE VISIT due on 09/09/2022 DIABETES SCREEN due on 09/09/2024 INFLUENZA Completed SHINGRIX VACCINE Completed PNEUMOCOCCAL: 65+ Completed Data reviewed Component Latest Ref Rng & Units 09/09/2021 Total Cholesterol, Nonfasting <200 mg/dL 168 Triglycerides, Nonfasting <150 mg/dL 186 (H) HDL Cholesterol, Nonfasting >39 mg/dL 35 (L) LDL Cholesterol, Nonfasting <100 mg/dL 96 Non HDL Cholesterol, Nonfasting <130 mg/dL 133 (H) VLDL Cholesterol, Nonfasting <30 mg/dL 37 (H) Total Chol/HDL Ratio, Nonfasting <5.10 mg/dL 4.80 LDL/HDL Ratio, Nonfasting <2.54 mg/dL 2.74 (H) Hemoglobin A1C 4.3 - 5.6 % 5.8 (H) Estimated Average Glucose mg/dL 120 PSA <2.6 ng/mL 0.2 A/P ASSESSMENT/PLAN: 1. Medicare annual wellness visit, subsequent - ICD9: V70.0, ICD10: Z00.00 (primary diagnosis) - Counseled on healthy diet and regular exercise - Discussed need for and benefit of weight loss. BMI 34.93 kg/(m^2) - Follow up for annual exam in one year 2. Essential hypertension, benign - ICD9: 401.1, ICD10: I10 - good control - Continue current medication(s) - Recommended regular aerobic exercise. - Recommend home blood pressure monitoring, to bring results in on next visit - Goal of BP <130/80 check - COMP METABOLIC PANEL - URINALYSIS, WITH MICROSCOPIC - LIPID PANEL, NONFASTING 3. Mixed hyperlipidemia - ICD9: 272.2, ICD10: E78.2 - to be determined upon return of lab results - Encouraged following a low fat, low cholesterol diet. - Discussed the benefits of regular aerobic exercise and weight loss. - Encouraged following a low carbohydrate, healthy oil intake diet. - Continue current therapy. Check - COMP METABOLIC PANEL - URINALYSIS, WITH MICROSCOPIC - LIPID PANEL, NONFASTING 4. Elevated fasting blood sugar - ICD9: 790.21, ICD10: R73.01 Check - COMP METABOLIC PANEL - HGB A1C 5. GERD without esophagitis - ICD9: 530.81, ICD10: K21.9 - Continue treatment with Protonix 40 mg every day Check - VITAMIN B12 BLOOD - MAGNESIUM BLD 6. CAD S/P percutaneous coronary angioplasty - ICD9: 414.01, V45.82, ICD10: I25.10, Z98.61 - clinically stable no changes and cont f/u with cardio. - LIPID PANEL, NONFASTING 7. 3-vessel CAD - ICD9: 414.00, ICD10: I25.10 - as per #6 8. Dementia without behavioral disturbance, unspecified dementia type (HCC) - ICD9: 294.20, ICD10: F03.90 - Cont Aricept Check - TSH BLD - CBC + DIFF 9. NAIN (obstructive sleep apnea) - ICD9: 327.23, ICD10: G47.33 - benefiting from nightly use of CPAP 10. Anemia, unspecified type - ICD9: 285.9, ICD10: D64.9 - Check CBC 11. Living will on file - ICD9: V49.89, ICD10: Z87.898 - On file 12. Advance directive discussed with patient - ICD9: V65.49, ICD10: Z71.89 - As per #11 13. History of CVA (cerebrovascular accident) - ICD9: V12.54, ICD10: Z86.73 - Stable no changes. 14. Medication management - ICD9: V58.69, ICD10: Z79.899 Check - VITAMIN B12 BLOOD - TSH BLD - MAGNESIUM BLD - CBC + DIFF 15. History of prostate cancer - ICD9: V10.46, ICD10: Z85.46 Check - PSA/PROSTSPECAG DIAG 16. Need for vaccination - ICD9: V05.9, ICD10: Z23 - PNEUMOCOCCAL VACCINE (PREVNAR 20): given F/u 6 months routine I spent a total of 40 minutes on the date of the service which included preparing to see the patient, [id number] patient care, completing clinical documentation, performing a medically appropriate examination, counseling and educating the patient/family/caregiver and ordering medications, tests, or procedures. Adama Mendoza MD documented in this encounter[facility] Miscellaneous Notes* Telephone Encounter - Judith Vanegas MA - 01/27/2022 10:58 AM EDT Patient has been identified by name and date of : Yes Pending Prescriptions Disp Refills SOLIFENACIN 5 MG TABLET 90 tablet 1 Sig: Take 1 tablet by mouth once daily. CHICA: No LOSARTAN 100 MG TABLET 90 tablet 1 Sig: Take 1 tablet by mouth once daily. CHICA: No RX INSTRUCTIONS: Patient aware RX will be sent to pharmacy. No need to notify patient. Judith Vanegas MA Kyle: 09/2021 Nov: 03/2022 Last refill: 07/2021 * Telephone Encounter - Brianna Salazar - 01/27/2022 9:56 AM EDT Pharmacy verified in [facility] Patient has been identified by name and date of : Yes Patient aware RX will be sent to pharmacy. No need to notify patient. Spouse phones for refill(s): Pending Prescriptions Disp Refills SOLIFENACIN 5 MG TABLET 90 tablet 1 Sig: Take 1 tablet by mouth once daily. CHICA: No LOSARTAN 100 MG TABLET 90 tablet 1 Sig: Take 1 tablet by mouth once daily. CHICA: No Date of last office visit : 09/09/2021 Date of next office visit : 03/26/2022 Last 2 Encounter Wt Readings: Date: Wt: 09/09/2021 99.8 kg (220 lb) 05/18/2021 100.2 kg (221 lb) Please advise. Brianna Howe Pss documented in this encounterMer[facility]04-12-2022 Miscellaneous Notes* Telephone Encounter - Marilyn Alvarez RN - 01/14/2022 9:25 AM EDT Patient has been identified by name and date of : Yes Spouse phones for refill(s): Pending Prescriptions Disp Refills METOPROLOL SUCCINATE ER 50 MG TABLET,EXTENDED RELEASE 24 HR 135 tablet 1 Sig: Take 1.5 tablets by mouth once daily. CHICA: No Date of last office visit in primary care: 09/09/2021; Future Appt. 03/26/2022 Last 2 Encounter Wt Readings: Date: Wt: 09/09/2021 99.8 kg (220 lb) 05/18/2021 100.2 kg (221 lb) Previous labs/tests for medication: Blood Pressure: BUN (mg/dL) Date Value 02/18/2021 10 Sodium (mmol/L) Date Value 02/18/2021 142 Last 1 Encounter BP Readings: Date: BP: 09/09/2021 130/76 Liver Function: ALT (U/L) Date Value 02/18/2021 41 AST (U/L) Date Value 02/18/2021 32 Please advise. Thank you. Marilyn Alvarez RN documented in this encounterMer[facility]09-15-[facility] History of Present illness Narrative* Jessica South RT(R) - 06/19/2021 2:30 PM EDT Radiology Service Progress Note PATIENT NAME: Lory Johnson DATE OF SERVICE: June 19, 2021 TIME: 2:25 PM PATIENT IDENTITY VERIFICATION COMPLETED USING TWO (2) IDENTIFIERS: Name and Date of confirmedby patient verbally. FALL SCREENING: Has the patient had 2 falls in the last year or 1 fall with injury or currently using an Ambulatory Assistive Device (Walker, Cane, Wheelchair, Crutches, etc.)? No PATIENT GENDER DATA: Male PATIENT RELEVANT IMPLANT DATA REVIEWED: Not Applicable RADIOLOGY DEPARTMENT: General X-ray: Exam(s) Completed: Upper Extremity X- Ray(s): Hand, right PERIPHERAL IV DATA: Not applicable SIGNED BY: RT Sean(R) June 19, 2021 2:25 PM documented in this encounterMer[facility]08-14-2021 History of Present illness Narrative* Jessica South RT(R) - 05/18/2021 11:00 AM EDT Radiology Service Progress Note PATIENT NAME: Lory Johnson DATE OF SERVICE: May 18, 2021 TIME: 11:19 AM PATIENT IDENTITY VERIFICATION COMPLETED USING TWO (2) IDENTIFIERS: Name and Date of confirmedby patient verbally. FALL SCREENING: Has the patient had 2 falls in the last year or 1 fall with injury or currently using an Ambulatory Assistive Device (Walker, Cane, Wheelchair, Crutches, etc.)? No PATIENT GENDER DATA: Male PATIENT RELEVANT IMPLANT DATA REVIEWED: Not Applicable RADIOLOGY DEPARTMENT: General X-ray: Exam(s) Completed: Upper Extremity X- Ray(s): Hand, right PERIPHERAL IV DATA: Not applicable SIGNED BY: RT Sean(R) May 18, 2021 11:19 AM documented in this encounterMer[facility]05-17-2021 History of Present illness Narrative* Noelle Saldivar RT(R) - 02/18/2021 11:50 AM EDT Radiology Service Progress Note PATIENT NAME: Lory Johnson DATE OF SERVICE: February 18, 2021 TIME: 11:49 AM PATIENT IDENTITY VERIFICATION COMPLETED USING TWO (2) IDENTIFIERS: Name and Date of confirmedby patient verbally. FALL SCREENING: Has the patient had 2 falls in the last year or 1 fall with injury or currently using an Ambulatory Assistive Device (Walker, Cane, Wheelchair, Crutches, etc.)? No PATIENT GENDER DATA: Male PATIENT RELEVANT IMPLANT DATA REVIEWED: Yes RADIOLOGY DEPARTMENT: General X-ray: Exam(s) Completed: Spine X-Ray(s): Lumbar AP / LAT / L5-S1 PERIPHERAL IV DATA: Not applicable SIGNED BY: RT Marva(R) February 18, 2021 11:49 AM documented in this encounterMer[facility]02-11-2016 History of Past illness Narrative* Problem Noted Date Resolved Date GERD without esophagitis 11/15/2015 018 Overview: SeeMarkell samson Dr Gastroesophageal reflux disease 08/03/2015 08/03/2015 Neoplasm of uncertain behavi or of skin: Right Chin Face: R/O BCC 08/16/2013 02/01/2015 Actinic skin damage 08/16/2013 02/01/2015 Viral warts, unspecified 08/16/2013 015 Gama angioma 08/16/2013 02/01/2015 Other seborrheic keratosis 08/16/201302/01 Solar lentigo 08/16/2013 02/01/2015 Epidermal cyst 08/16/2013 02/01/2015 Umbilical hernia without mention of obstruction or gangrene 12/29/2002 02/01/2015 documented as of this encounter (statuses as of 01/14/2022) [facility] of Past illness Narrative* Problem Noted Date Resolved Date GERD without esophagitis 11/15/2015 018 Overview: SeeMarkell samson Dr Gastroesophageal reflux disease 08/03/2015 08/03/2015 Neoplasm of uncertain behavi or of skin: Right Chin Face: R/O BCC 08/16/2013 02/01/2015 Actinic skin damage 08/16/2013 02/01/2015 Viral warts, unspecified 08/16/2013 015 Gama angioma 08/16/2013 02/01/2015 Other seborrheic keratosis 08/16/201302/01 Solar lentigo 08/16/2013 02/01/2015 Epidermal cyst 08/16/2013 02/01/2015 Umbilical hernia without mention of obstruction or gangrene 12/29/2002 02/01/2015 documented as of this encounter (statuses as of 01/27/2022) [facility] of [facility] illness Narrative* Problem Noted Date Resolved Date GERD without esophagitis 11/15/2015 018 Overview: Sees Markell Anaya Gastroesophageal reflux disease 08/03/2015 08/03/2015 Neoplasm of uncertain behavi or of skin: Right Chin Face: R/O BCC 08/16/2013 02/01/2015 Actinic skin damage 08/16/2013 02/01/2015 Viral warts, unspecified 08/16/2013 015 Gama angioma 08/16/2013 02/01/2015 Other seborrheic keratosis 08/16/201302/01 Solar lentigo 08/16/2013 02/01/2015 Epidermal cyst 08/16/2013 02/01/2015 Umbilical hernia without mention of obstruction or gangrene 12/29/2002 02/01/2015 documented as of this encounter (statuses as of 03/27/2022) [facility] Narrative* Problem Noted Date Resolved Date GERD without esophagitis 11/15/2015 018 Overview: SeeMarkell samson Dr Gastroesophageal reflux disease 08/03/2015 08/03/2015 Neoplasm of uncertain behavi or of skin: Right Chin Face: R/O BCC 08/16/2013 02/01/2015 Actinic skin damage 08/16/2013 02/01/2015 Viral warts, unspecified 08/16/2013 015 Gama angioma 08/16/2013 02/01/2015 Other seborrheic keratosis 08/16/201302/01 Solar lentigo 08/16/2013 02/01/2015 Epidermal cyst 08/16/2013 02/01/2015 Umbilical hernia without mention of obstruction or gangrene 12/29/2002 02/01/2015 documented as of this encounter (statuses as of 04/02/2022) [facility] Narrative* Problem Noted Date Resolved Date GERD without esophagitis 11/15/2015 018 Overview: Markell Reese Dr Gastroesophageal reflux disease 08/03/2015 08/03/2015 Neoplasm of uncertain behavi or of skin: Right Chin Face: R/O BCC 08/16/2013 02/01/2015 Actinic skin damage 08/16/2013 02/01/2015 Viral warts, unspecified 08/16/2013 015 Gama angioma 08/16/2013 02/01/2015 Other seborrheic keratosis 08/16/201302/01 Solar lentigo 08/16/2013 02/01/2015 Epidermal cyst 08/16/2013 02/01/2015 Umbilical hernia without mention of obstruction or gangrene 12/29/2002 02/01/2015 documented as of this encounter (statuses as of 04/05/2022) [facility] Narrative* Problem Noted Date Resolved Date GERD without esophagitis 11/15/2015 018 Overview: Markell Reese Dr Gastroesophageal reflux disease 08/03/2015 08/03/2015 Neoplasm of uncertain behavi or of skin: Right Chin Face: R/O BCC 08/16/2013 02/01/2015 Actinic skin damage 08/16/2013 02/01/2015 Viral warts, unspecified 08/16/2013 015 Gama angioma 08/16/2013 02/01/2015 Other seborrheic keratosis 08/16/201302/01 Solar lentigo 08/16/2013 02/01/2015 Epidermal cyst 08/16/2013 02/01/2015 Umbilical hernia without mention of obstruction or gangrene 12/29/2002 02/01/2015 documented as of this encounter (statuses as of 06/04/2022) [facility] Narrative* Problem Noted Date Resolved Date GERD without esophagitis 11/15/2015 018 Overview: Markell Reese Dr Gastroesophageal reflux disease 08/03/2015 08/03/2015 Neoplasm of uncertain behavi or of skin: Right Chin Face: R/O BCC 08/16/2013 02/01/2015 Actinic skin damage 08/16/2013 02/01/2015 Viral warts, unspecified 08/16/2013 015 Gama angioma 08/16/2013 02/01/2015 Other seborrheic keratosis 08/16/201302/01 Solar lentigo 08/16/2013 02/01/2015 Epidermal cyst 08/16/2013 02/01/2015 Umbilical hernia without mention of obstruction or gangrene 12/29/2002 02/01/2015 documented as of this encounter (statuses as of 06/12/2022) [facility] Narrative* Problem Noted Date Resolved Date GERD without esophagitis 11/15/2015 018 Overview: SeeMarkell samson Dr Gastroesophageal reflux disease 08/03/2015 08/03/2015 Neoplasm of uncertain behavi or of skin: Right Chin Face: R/O BCC 08/16/2013 02/01/2015 Actinic skin damage 08/16/2013 02/01/2015 Viral warts, unspecified 08/16/2013 015 Gama angioma 08/16/2013 02/01/2015 Other seborrheic keratosis 08/16/201302/01 Solar lentigo 08/16/2013 02/01/2015 Epidermal cyst 08/16/2013 02/01/2015 Umbilical hernia without mention of obstruction or gangrene 12/29/2002 02/01/2015 documented as of this encounter (statuses as of 07/10/2022) [facility] Narrative* Problem Noted Date Resolved Date GERD without esophagitis 11/15/2015 018 Overview: Markell Reese Dr Gastroesophageal reflux disease 08/03/2015 08/03/2015 Neoplasm of uncertain behavi or of skin: Right Chin Face: R/O BCC 08/16/2013 02/01/2015 Actinic skin damage 08/16/2013 02/01/2015 Viral warts, unspecified 08/16/2013 015 Gama angioma 08/16/2013 02/01/2015 Other seborrheic keratosis 08/16/201302/01 Solar lentigo 08/16/2013 02/01/2015 Epidermal cyst 08/16/2013 02/01/2015 Umbilical hernia without mention of obstruction or gangrene 12/29/2002 02/01/2015 documented as of this encounter (statuses as of 07/28/2022) [facility] Narrative* Problem Noted Date Resolved Date GERD without esophagitis 11/15/2015 018 Overview: SeeMarkell samson Dr Gastroesophageal reflux disease 08/03/2015 08/03/2015 Neoplasm of uncertain behavi or of skin: Right Chin Face: R/O BCC 08/16/2013 02/01/2015 Actinic skin damage 08/16/2013 02/01/2015 Viral warts, unspecified 08/16/2013 015 Gama angioma 08/16/2013 02/01/2015 Other seborrheic keratosis 08/16/201302/01 Solar lentigo 08/16/2013 02/01/2015 Epidermal cyst 08/16/2013 02/01/2015 Umbilical hernia without mention of obstruction or gangrene 12/29/2002 02/01/2015 documented as of this encounter (statuses as of 07/28/2022) [facility] Narrative* Problem Noted Date Resolved Date GERD without esophagitis 11/15/2015 018 Overview: SeeMarkell samson Dr Gastroesophageal reflux disease 08/03/2015 08/03/2015 Neoplasm of uncertain behavi or of skin: Right Chin Face: R/O BCC 08/16/2013 02/01/2015 Actinic skin damage 08/16/2013 02/01/2015 Viral warts, unspecified 08/16/2013 015 Gama angioma 08/16/2013 02/01/2015 Other seborrheic keratosis 08/16/201302/01 Solar lentigo 08/16/2013 02/01/2015 Epidermal cyst 08/16/2013 02/01/2015 Umbilical hernia without mention of obstruction or gangrene 12/29/2002 02/01/2015 documented as of this encounter (statuses as of 07/29/2022) [facility]arrative* Problem Noted Date Resolved Date GERD without esophagitis 11/15/2015 018 Overview: SeeMarkell samson Dr Gastroesophageal reflux disease 08/03/2015 08/03/2015 Neoplasm of uncertain behavi or of skin: Right Chin Face: R/O BCC 08/16/2013 02/01/2015 Actinic skin damage 08/16/2013 02/01/2015 Viral warts, unspecified 08/16/2013 015 Gama angioma 08/16/2013 02/01/2015 Other seborrheic keratosis 08/16/201302/01 Solar lentigo 08/16/2013 02/01/2015 Epidermal cyst 08/16/2013 02/01/2015 Umbilical hernia without mention of obstruction or gangrene 12/29/2002 02/01/2015 documented as of this encounter (statuses as of 08/05/2022) [facility] Narrative* Problem Noted Date Resolved Date GERD without esophagitis 11/15/2015 018 Overview: SeeMarkell samson Dr Gastroesophageal reflux disease 08/03/2015 08/03/2015 Neoplasm of uncertain behavi or of skin: Right Chin Face: R/O BCC 08/16/2013 02/01/2015 Actinic skin damage 08/16/2013 02/01/2015 Viral warts, unspecified 08/16/2013 015 Gama angioma 08/16/2013 02/01/2015 Other seborrheic keratosis 08/16/201302/01 Solar lentigo 08/16/2013 02/01/2015 Epidermal cyst 08/16/2013 02/01/2015 Umbilical hernia without mention of obstruction or gangrene 12/29/2002 02/01/2015 documented as of this encounter (statuses as of 08/27/2022) [facility] Narrative* Problem Noted Date Resolved Date GERD without esophagitis 11/15/2015 018 Overview: SeeMarkell samson Dr Gastroesophageal reflux disease 08/03/2015 08/03/2015 Neoplasm of uncertain behavi or of skin: Right Chin Face: R/O BCC 08/16/2013 02/01/2015 Actinic skin damage 08/16/2013 02/01/2015 Viral warts, unspecified 08/16/2013 015 Gama angioma 08/16/2013 02/01/2015 Other seborrheic keratosis 08/16/201302/01 Solar lentigo 08/16/2013 02/01/2015 Epidermal cyst 08/16/2013 02/01/2015 Umbilical hernia without mention of obstruction or gangrene 12/29/2002 02/01/2015 documented as of this encounter (statuses as of 09/01/2022) [facility] Narrative* Problem Noted Date Resolved Date GERD without esophagitis 11/15/2015 018 Overview: SeeMarkell samson Dr Gastroesophageal reflux disease 08/03/2015 08/03/2015 Neoplasm of uncertain behavi or of skin: Right Chin Face: R/O BCC 08/16/2013 02/01/2015 Actinic skin damage 08/16/2013 02/01/2015 Viral warts, unspecified 08/16/2013 015 Gama angioma 08/16/2013 02/01/2015 Other seborrheic keratosis 08/16/201302/01 Solar lentigo 08/16/2013 02/01/2015 Epidermal cyst 08/16/2013 02/01/2015 Umbilical hernia without mention of obstruction or gangrene 12/29/2002 02/01/2015 documented as of this encounter (statuses as of 09/18/2022) [facility] [facility] Past illness Narrative* Problem Noted Date Resolved Date GERD without esophagitis 11/15/2015 018 Overview: Markell Reese Dr Gastroesophageal reflux disease 08/03/2015 08/03/2015 Neoplasm of uncertain behavi or of skin: Right Chin Face: R/O BCC 08/16/2013 02/01/2015 Actinic skin damage 08/16/2013 02/01/2015 Viral warts, unspecified 08/16/2013 015 Gama angioma 08/16/2013 02/01/2015 Other seborrheic keratosis 08/16/201302/01 Solar lentigo 08/16/2013 02/01/2015 Epidermal cyst 08/16/2013 02/01/2015 Umbilical hernia without mention of obstruction or gangrene 12/29/2002 02/01/2015 documented as of this encounter (statuses as of 10/09/2022) [facility] History of Past illness Narrative* Problem Noted Date Resolved Date GERD without esophagitis 11/15/2015 018 Overview: SeeMarkell samson Dr Gastroesophageal reflux disease 08/03/2015 08/03/2015 Neoplasm of uncertain behavi or of skin: Right Chin Face: R/O BCC 08/16/2013 02/01/2015 Actinic skin damage 08/16/2013 02/01/2015 Viral warts, unspecified 08/16/2013 015 Gama angioma 08/16/2013 02/01/2015 Other seborrheic keratosis 08/16/201302/01 Solar lentigo 08/16/2013 02/01/2015 Epidermal cyst 08/16/2013 02/01/2015 Umbilical hernia without mention of obstruction or gangrene 12/29/2002 02/01/2015 documented as of this encounter (statuses as of 10/10/2022) [facility] History of Past illness Narrative* Problem Noted Date Resolved Date GERD without esophagitis 11/15/2015 018 Overview: SeeMarkell samson Dr Gastroesophageal reflux disease 08/03/2015 08/03/2015 Neoplasm of uncertain behavi or of skin: Right Chin Face: R/O BCC 08/16/2013 02/01/2015 Actinic skin damage 08/16/2013 02/01/2015 Viral warts, unspecified 08/16/2013 015 Gama angioma 08/16/2013 02/01/2015 Other seborrheic keratosis 08/16/201302/01 Solar lentigo 08/16/2013 02/01/2015 Epidermal cyst 08/16/2013 02/01/2015 Umbilical hernia without mention of obstruction or gangrene 12/29/2002 02/01/2015 documented as of this encounter (statuses as of 11/04/2022) [facility] History of Past illness Narrative* Problem Noted Date Resolved Date GERD without esophagitis 11/15/2015 018 Overview: Sees Markell Anaya Gastroesophageal reflux disease 08/03/2015 08/03/2015 Neoplasm of uncertain behavi or of skin: Right Chin Face: R/O BCC 08/16/2013 02/01/2015 Actinic skin damage 08/16/2013 02/01/2015 Viral warts, unspecified 08/16/2013 015 Gama angioma 08/16/2013 02/01/2015 Other seborrheic keratosis 08/16/201302/01 Solar lentigo 08/16/2013 02/01/2015 Epidermal cyst 08/16/2013 02/01/2015 Umbilical hernia without mention of obstruction or gangrene 12/29/2002 02/01/2015 documented as of this encounter (statuses as of 11/06/2022) [facility] History of Past illness Narrative* Problem Noted Date Resolved Date GERD without esophagitis 11/15/2015 018 Overview: SeeMarkell samson Dr Gastroesophageal reflux disease 08/03/2015 08/03/2015 Neoplasm of uncertain behavi or of skin: Right Chin Face: R/O BCC 08/16/2013 02/01/2015 Actinic skin damage 08/16/2013 02/01/2015 Viral warts, unspecified 08/16/2013 015 Gama angioma 08/16/2013 02/01/2015 Other seborrheic keratosis 08/16/201302/01 Solar lentigo 08/16/2013 02/01/2015 Epidermal cyst 08/16/2013 02/01/2015 Umbilical hernia without mention of obstruction or gangrene 12/29/2002 02/01/2015 documented as of this encounter (statuses as of 11/14/2022) [facility] History of Past illness Narrative* Problem Noted Date Resolved Date GERD without esophagitis 11/15/2015 018 Overview: Markell Reese Dr Gastroesophageal reflux disease 08/03/2015 08/03/2015 Neoplasm of uncertain behavi or of skin: Right Chin Face: R/O BCC 08/16/2013 02/01/2015 Actinic skin damage 08/16/2013 02/01/2015 Viral warts, unspecified 08/16/2013 015 Gama angioma 08/16/2013 02/01/2015 Other seborrheic keratosis 08/16/201302/01 Solar lentigo 08/16/2013 02/01/2015 Epidermal cyst 08/16/2013 02/01/2015 Umbilical hernia without mention of obstruction or gangrene 12/29/2002 02/01/2015 documented as of this encounter (statuses as of 11/17/2022) [facility] History of Past illness Narrative* Problem Noted Date Resolved Date GERD without esophagitis 11/15/2015 018 Overview: SeeMarkell samson Dr Gastroesophageal reflux disease 08/03/2015 08/03/2015 Neoplasm of uncertain behavi or of skin: Right Chin Face: R/O BCC 08/16/2013 02/01/2015 Actinic skin damage 08/16/2013 02/01/2015 Viral warts, unspecified 08/16/2013 015 Gama angioma 08/16/2013 02/01/2015 Other seborrheic keratosis 08/16/201302/01 Solar lentigo 08/16/2013 02/01/2015 Epidermal cyst 08/16/2013 02/01/2015 Umbilical hernia without mention of obstruction or gangrene 12/29/2002 02/01/2015 documented as of this encounter (statuses as of 11/20/2022) [facility] History of Past illness Narrative* Problem Noted Date Resolved Date GERD without esophagitis 11/15/2015 018 Overview: Markell Reese Dr Gastroesophageal reflux disease 08/03/2015 08/03/2015 Neoplasm of uncertain behavi or of skin: Right Chin Face: R/O BCC 08/16/2013 02/01/2015 Actinic skin damage 08/16/2013 02/01/2015 Viral warts, unspecified 08/16/2013 015 Gama angioma 08/16/2013 02/01/2015 Other seborrheic keratosis 08/16/201302/01 Solar lentigo 08/16/2013 02/01/2015 Epidermal cyst 08/16/2013 02/01/2015 Umbilical hernia without mention of obstruction or gangrene 12/29/2002 02/01/2015 documented as of this encounter (statuses as of 11/20/2022) [facility] History of Past illness Narrative* Problem Noted Date Resolved Date GERD without esophagitis 11/15/2015 018 Overview: Sees Markell Anaya Gastroesophageal reflux disease 08/03/2015 08/03/2015 Neoplasm of uncertain behavi or of skin: Right Chin Face: R/O BCC 08/16/2013 02/01/2015 Actinic skin damage 08/16/2013 02/01/2015 Viral warts, unspecified 08/16/2013 015 Gama angioma 08/16/2013 02/01/2015 Other seborrheic keratosis 08/16/201302/01 Solar lentigo 08/16/2013 02/01/2015 Epidermal cyst 08/16/2013 02/01/2015 Umbilical hernia without mention of obstruction or gangrene 12/29/2002 02/01/2015 documented as of this encounter (statuses as of 11/24/2022) [facility] History of Past illness Narrative* Problem Noted Date Resolved Date GERD without esophagitis 11/15/2015 018 Overview: SeeMarkell samson Dr Gastroesophageal reflux disease 08/03/2015 08/03/2015 Neoplasm of uncertain behavi or of skin: Right Chin Face: R/O BCC 08/16/2013 02/01/2015 Actinic skin damage 08/16/2013 02/01/2015 Viral warts, unspecified 08/16/2013 015 Gama angioma 08/16/2013 02/01/2015 Other seborrheic keratosis 08/16/201302/01 Solar lentigo 08/16/2013 02/01/2015 Epidermal cyst 08/16/2013 02/01/2015 Umbilical hernia without mention of obstruction or gangrene 12/29/2002 02/01/2015 documented as of this encounter (statuses as of 12/16/2022) [facility] History of Past illness Narrative* Problem Noted Date Resolved Date GERD without esophagitis 11/15/2015 018 Overview: Sees Markell Anaya Gastroesophageal reflux disease 08/03/2015 08/03/2015 Neoplasm of uncertain behavi or of skin: Right Chin Face: R/O BCC 08/16/2013 02/01/2015 Actinic skin damage 08/16/2013 02/01/2015 Viral warts, unspecified 08/16/2013 015 Gama angioma 08/16/2013 02/01/2015 Other seborrheic keratosis 08/16/201302/01 Solar lentigo 08/16/2013 02/01/2015 Epidermal cyst 08/16/2013 02/01/2015 Umbilical hernia without mention of obstruction or gangrene 12/29/2002 02/01/2015 documented as of this encounter (statuses as of 12/30/2022) [facility] History of Past illness Narrative* Problem Noted Date Resolved Date GERD without esophagitis 11/15/2015 018 Overview: SeeMarkell samson Dr Gastroesophageal reflux disease 08/03/2015 08/03/2015 Neoplasm of uncertain behavi or of skin: Right Chin Face: R/O BCC 08/16/2013 02/01/2015 Actinic skin damage 08/16/2013 02/01/2015 Viral warts, unspecified 08/16/2013 015 Gama angioma 08/16/2013 02/01/2015 Other seborrheic keratosis 08/16/201302/01 Solar lentigo 08/16/2013 02/01/2015 Epidermal cyst 08/16/2013 02/01/2015 Umbilical hernia without mention of obstruction or gangrene 12/29/2002 02/01/2015 documented as of this encounter (statuses as of 01/08/2023) [facility] History of Past illness Narrative* Problem Noted Date Resolved Date GERD without esophagitis 11/15/2015 018 Overview: Markell Reese Dr Gastroesophageal reflux disease 08/03/2015 08/03/2015 Neoplasm of uncertain behavi or of skin: Right Chin Face: R/O BCC 08/16/2013 02/01/2015 Actinic skin damage 08/16/2013 02/01/2015 Viral warts, unspecified 08/16/2013 015 Gama angioma 08/16/2013 02/01/2015 Other seborrheic keratosis 08/16/201302/01 Solar lentigo 08/16/2013 02/01/2015 Epidermal cyst 08/16/2013 02/01/2015 Umbilical hernia without mention of obstruction or gangrene 12/29/2002 02/01/2015 documented as of this encounter (statuses as of 01/30/2023) [facility] History of Past illness Narrative* Problem Noted Date Resolved Date GERD without esophagitis 11/15/2015 018 Overview: SeeMarkell samson Dr Gastroesophageal reflux disease 08/03/2015 08/03/2015 Neoplasm of uncertain behavi or of skin: Right Chin Face: R/O BCC 08/16/2013 02/01/2015 Actinic skin damage 08/16/2013 02/01/2015 Viral warts, unspecified 08/16/2013 015 Gama angioma 08/16/2013 02/01/2015 Other seborrheic keratosis 08/16/201302/01 Solar lentigo 08/16/2013 02/01/2015 Epidermal cyst 08/16/2013 02/01/2015 Umbilical hernia without mention of obstruction or gangrene 12/29/2002 02/01/2015 documented as of this encounter (statuses as of 02/02/2023) [facility] History of Past illness Narrative* Problem Noted Date Resolved Date GERD without esophagitis 11/15/2015 018 Overview: Markell Reese Dr Gastroesophageal reflux disease 08/03/2015 08/03/2015 Neoplasm of uncertain behavi or of skin: Right Chin Face: R/O BCC 08/16/2013 02/01/2015 Actinic skin damage 08/16/2013 02/01/2015 Viral warts, unspecified 08/16/2013 015 Gama angioma 08/16/2013 02/01/2015 Other seborrheic keratosis 08/16/201302/01 Solar lentigo 08/16/2013 02/01/2015 Epidermal cyst 08/16/2013 02/01/2015 Umbilical hernia without mention of obstruction or gangrene 12/29/2002 02/01/2015 documented as of this encounter (statuses as of 02/08/2023) [facility] History of Past illness Narrative* Problem Noted Date Resolved Date GERD without esophagitis 11/15/2015 018 Overview: Markell Reese Dr Gastroesophageal reflux disease 08/03/2015 08/03/2015 Neoplasm of uncertain behavi or of skin: Right Chin Face: R/O BCC 08/16/2013 02/01/2015 Actinic skin damage 08/16/2013 02/01/2015 Viral warts, unspecified 08/16/2013 015 Gama angioma 08/16/2013 02/01/2015 Other seborrheic keratosis 08/16/201302/01 Solar lentigo 08/16/2013 02/01/2015 Epidermal cyst 08/16/2013 02/01/2015 Umbilical hernia without mention of obstruction or gangrene 12/29/2002 02/01/2015 documented as of this encounter (statuses as of 04/06/2023) [facility] History of Past illness Narrative* Problem Noted Date Resolved Date GERD without esophagitis 11/15/2015 018 Overview: Markell Reese Dr Gastroesophageal reflux disease 08/03/2015 08/03/2015 Neoplasm of uncertain behavi or of skin: Right Chin Face: R/O BCC 08/16/2013 02/01/2015 Actinic skin damage 08/16/2013 02/01/2015 Viral warts, unspecified 08/16/2013 015 Gama angioma 08/16/2013 02/01/2015 Other seborrheic keratosis 08/16/201302/01 Solar lentigo 08/16/2013 02/01/2015 Epidermal cyst 08/16/2013 02/01/2015 Umbilical hernia without mention of obstruction or gangrene 12/29/2002 02/01/2015 documented as of this encounter (statuses as of 04/10/2023) [facility] History of Past illness Narrative* Problem Noted Date Diagnosed Date Resolved Date GERD without esophagitis 11/15/2015 Overview: SeeMarkell samson Dr Gastroesophageal reflux disease 08/03/2015 08/03/2015 Neoplasm of uncertain behavi or of skin: Right Chin Face: R/O BCC 08/16/2013 02/01/2015 Actinic skin damage 08/16/2013 02/02/20 15 Viral warts, unspecified 08/16/2013 Gama angioma 08/16/2013 02/01/2015 Other seborrheic keratosis 08/16/2013 0 02/01/2015 Solar lentigo 08/16/2013 02/01/2015 Epidermal cyst 08/16/2013 02/01/2015 Umbilical hernia without men tion of obstruction or gangrene 12/29/2002 02/01/2015 documented as of this encounter (statuses as of 04/15/2023) [facility] History of Past illness Narrative* Problem Noted Date Diagnosed Date Resolved Date GERD without esophagitis 11/15/2015 Overview: SeeMarkell samson Dr Gastroesophageal reflux disease 08/03/2015 08/03/2015 Neoplasm of uncertain behavi or of skin: Right Chin Face: R/O BCC 08/16/2013 02/01/2015 Actinic skin damage 08/16/2013 02/02/20 15 Viral warts, unspecified 08/16/2013 Gama angioma 08/16/2013 02/01/2015 Other seborrheic keratosis 08/16/2013 0 02/01/2015 Solar lentigo 08/16/2013 02/01/2015 Epidermal cyst 08/16/2013 02/01/2015 Umbilical hernia without men tion of obstruction or gangrene 12/29/2002 02/01/2015 documented as of this encounter (statuses as of 04/30/2023) [facility] History of Past illness Narrative* Problem Noted Date Diagnosed Date Resolved Date GERD without esophagitis 11/15/2015 Overview: SeeMarkell samson Dr Gastroesophageal reflux disease 08/03/2015 08/03/2015 Neoplasm of uncertain behavi or of skin: Right Chin Face: R/O BCC 08/16/2013 02/01/2015 Actinic skin damage 08/16/2013 02/02/20 15 Viral warts, unspecified 08/16/2013 Gama angioma 08/16/2013 02/01/2015 Other seborrheic keratosis 08/16/2013 0 02/01/2015 Solar lentigo 08/16/2013 02/01/2015 Epidermal cyst 08/16/2013 02/01/2015 Umbilical hernia without men tion of obstruction or gangrene 12/29/2002 02/01/2015 documented as of this encounter (statuses as of 05/01/2023) [facility] History of Past illness Narrative* Problem Noted Date Diagnosed Date Resolved Date GERD without esophagitis 11/15/2015 Overview: Markell Reese Dr Gastroesophageal reflux disease 08/03/2015 08/03/2015 Neoplasm of uncertain behavi or of skin: Right Chin Face: R/O BCC 08/16/2013 02/01/2015 Actinic skin damage 08/16/2013 02/02/20 15 Viral warts, unspecified 08/16/2013 Gama angioma 08/16/2013 02/01/2015 Other seborrheic keratosis 08/16/2013 0 02/01/2015 Solar lentigo 08/16/2013 02/01/2015 Epidermal cyst 08/16/2013 02/01/2015 Umbilical hernia without men tion of obstruction or gangrene 12/29/2002 02/01/2015 documented as of this encounter (statuses as of 05/01/2023) [facility] History of Past illness Narrative* Problem Noted Date Diagnosed Date Resolved Date GERD without esophagitis 11/15/2015 Overview: Markell Reese Dr Gastroesophageal reflux disease 08/03/2015 08/03/2015 Neoplasm of uncertain behavi or of skin: Right Chin Face: R/O BCC 08/16/2013 02/01/2015 Actinic skin damage 08/16/2013 02/02/20 15 Viral warts, unspecified 08/16/2013 Gama angioma 08/16/2013 02/01/2015 Other seborrheic keratosis 08/16/2013 0 02/01/2015 Solar lentigo 08/16/2013 02/01/2015 Epidermal cyst 08/16/2013 02/01/2015 Umbilical hernia without men tion of obstruction or gangrene 12/29/2002 02/01/2015 documented as of this encounter (statuses as of 05/02/2023) [facility] History of Past illness Narrative* Problem Noted Date Diagnosed Date Resolved Date GERD without esophagitis 11/15/2015 Overview: Markell Reese Dr Gastroesophageal reflux disease 08/03/2015 08/03/2015 Neoplasm of uncertain behavi or of skin: Right Chin Face: R/O BCC 08/16/2013 02/01/2015 Actinic skin damage 08/16/2013 02/02/20 15 Viral warts, unspecified 08/16/2013 Gama angioma 08/16/2013 02/01/2015 Other seborrheic keratosis 08/16/2013 0 02/01/2015 Solar lentigo 08/16/2013 02/01/2015 Epidermal cyst 08/16/2013 02/01/2015 Umbilical hernia without men tion of obstruction or gangrene 12/29/2002 02/01/2015 documented as of this encounter (statuses as of 05/08/2023) [facility] of Past illness Narrative* Problem Noted Date Diagnosed Date Resolved Date GERD without esophagitis 11/15/2015 Overview: Markell Reese Dr Gastroesophageal reflux disease 08/03/2015 08/03/2015 Neoplasm of uncertain behavi or of skin: Right Chin Face: R/O BCC 08/16/2013 02/01/2015 Actinic skin damage 08/16/2013 02/02/20 15 Viral warts, unspecified 08/16/2013 Gama angioma 08/16/2013 02/01/2015 Other seborrheic keratosis 08/16/2013 0 02/01/2015 Solar lentigo 08/16/2013 02/01/2015 Epidermal cyst 08/16/2013 02/01/2015 Umbilical hernia without men tion of obstruction or gangrene 12/29/2002 02/01/2015 documented as of this encounter (statuses as of 05/22/2023) [facility] of Past illness Narrative* Problem Noted Date Diagnosed Date Resolved Date GERD without esophagitis 11/15/2015 Overview: SeeMarkell samson Dr Gastroesophageal reflux disease 08/03/2015 08/03/2015 Neoplasm of uncertain behavi or of skin: Right Chin Face: R/O BCC 08/16/2013 02/01/2015 Actinic skin damage 08/16/2013 02/02/20 15 Viral warts, unspecified 08/16/2013 Gama angioma 08/16/2013 02/01/2015 Other seborrheic keratosis 08/16/2013 0 02/01/2015 Solar lentigo 08/16/2013 02/01/2015 Epidermal cyst 08/16/2013 02/01/2015 Umbilical hernia without men tion of obstruction or gangrene 12/29/2002 02/01/2015 documented as of this encounter (statuses as of 06/17/2023) [facility] History of Past illness Narrative* Problem Noted Date Diagnosed Date Resolved Date GERD without esophagitis 11/15/2015 Overview: Markell Reese Dr Gastroesophageal reflux disease 08/03/2015 08/03/2015 Neoplasm of uncertain behavi or of skin: Right Chin Face: R/O BCC 08/16/2013 02/01/2015 Actinic skin damage 08/16/2013 02/02/20 15 Viral warts, unspecified 08/16/2013 Gama angioma 08/16/2013 02/01/2015 Other seborrheic keratosis 08/16/2013 0 02/01/2015 Solar lentigo 08/16/2013 02/01/2015 Epidermal cyst 08/16/2013 02/01/2015 Umbilical hernia without men tion of obstruction or gangrene 12/29/2002 02/01/2015 documented as of this encounter (statuses as of 06/23/2023) [facility] History of Past illness Narrative* Problem Noted Date Diagnosed Date Resolved Date GERD without esophagitis 11/15/2015 Overview: SeeMarkell samson Dr Gastroesophageal reflux disease 08/03/2015 08/03/2015 Neoplasm of uncertain behavi or of skin: Right Chin Face: R/O BCC 08/16/2013 02/01/2015 Actinic skin damage 08/16/2013 02/02/20 15 Viral warts, unspecified 08/16/2013 Gama angioma 08/16/2013 02/01/2015 Other seborrheic keratosis 08/16/2013 0 02/01/2015 Solar lentigo 08/16/2013 02/01/2015 Epidermal cyst 08/16/2013 02/01/2015 Umbilical hernia without men tion of obstruction or gangrene 12/29/2002 02/01/2015 documented as of this encounter (statuses as of 06/26/2023) [facility] of Past illness Narrative* Problem Noted Date Diagnosed Date Resolved Date GERD without esophagitis 11/15/2015 Overview: Markell Reese Dr Gastroesophageal reflux disease 08/03/2015 08/03/2015 Neoplasm of uncertain behavi or of skin: Right Chin Face: R/O BCC 08/16/2013 02/01/2015 Actinic skin damage 08/16/2013 02/02/20 15 Viral warts, unspecified 08/16/2013 Gama angioma 08/16/2013 02/01/2015 Other seborrheic keratosis 08/16/2013 0 02/01/2015 Solar lentigo 08/16/2013 02/01/2015 Epidermal cyst 08/16/2013 02/01/2015 Umbilical hernia without men tion of obstruction or gangrene 12/29/2002 02/01/2015 documented as of this encounter (statuses as of 07/15/2023) [facility] History of Past illness Narrative* Problem Noted Date Diagnosed Date Resolved Date GERD without esophagitis 11/15/2015 Overview: SeeMarkell samson Dr Gastroesophageal reflux disease 08/03/2015 08/03/2015 Neoplasm of uncertain behavi or of skin: Right Chin Face: R/O BCC 08/16/2013 02/01/2015 Actinic skin damage 08/16/2013 02/02/20 15 Viral warts, unspecified 08/16/2013 Gama angioma 08/16/2013 02/01/2015 Other seborrheic keratosis 08/16/2013 0 02/01/2015 Solar lentigo 08/16/2013 02/01/2015 Epidermal cyst 08/16/2013 02/01/2015 Umbilical hernia without men tion of obstruction or gangrene 12/29/2002 02/01/2015 documented as of this encounter (statuses as of 08/26/2023) [facility] of Past illness Narrative* Problem Noted Date Diagnosed Date Resolved Date GERD without esophagitis 11/15/2015 Overview: SeeMarkell samson Dr Gastroesophageal reflux disease 08/03/2015 08/03/2015 Neoplasm of uncertain behavi or of skin: Right Chin Face: R/O BCC 08/16/2013 02/01/2015 Actinic skin damage 08/16/2013 02/02/20 15 Viral warts, unspecified 08/16/2013 Gama angioma 08/16/2013 02/01/2015 Other seborrheic keratosis 08/16/2013 0 02/01/2015 Solar lentigo 08/16/2013 02/01/2015 Epidermal cyst 08/16/2013 02/01/2015 Umbilical hernia without men tion of obstruction or gangrene 12/29/2002 02/01/2015 documented as of this encounter (statuses as of 09/04/2023) [facility] of Past illness Narrative* Problem Noted Date Diagnosed Date Resolved Date GERD without esophagitis 11/15/2015 Overview: Markell Reese Dr Gastroesophageal reflux disease 08/03/2015 08/03/2015 Neoplasm of uncertain behavi or of skin: Right Chin Face: R/O BCC 08/16/2013 02/01/2015 Actinic skin damage 08/16/2013 02/02/20 15 Viral warts, unspecified 08/16/2013 Gama angioma 08/16/2013 02/01/2015 Other seborrheic keratosis 08/16/2013 0 02/01/2015 Solar lentigo 08/16/2013 02/01/2015 Epidermal cyst 08/16/2013 02/01/2015 Umbilical hernia without men tion of obstruction or gangrene 12/29/2002 02/01/2015 documented as of this encounter (statuses as of 11/02/2023) [facility] of Past illness Narrative* Problem Noted Date Diagnosed Date Resolved Date GERD without esophagitis 11/15/2015 Overview: Markell Reese Dr Gastroesophageal reflux disease 08/03/2015 08/03/2015 Neoplasm of uncertain behavi or of skin: Right Chin Face: R/O BCC 08/16/2013 02/01/2015 Actinic skin damage 08/16/2013 02/02/20 15 Viral warts, unspecified 08/16/2013 Gama angioma 08/16/2013 02/01/2015 Other seborrheic keratosis 08/16/2013 0 02/01/2015 Solar lentigo 08/16/2013 02/01/2015 Epidermal cyst 08/16/2013 02/01/2015 Umbilical hernia without men tion of obstruction or gangrene 12/29/2002 02/01/2015 documented as of this encounter (statuses as of 11/10/2023) [facility] of Past illness Narrative* Problem Noted Date Diagnosed Date Resolved Date GERD without esophagitis 11/15/2015 Overview: Markell Reese Dr Gastroesophageal reflux disease 08/03/2015 08/03/2015 Neoplasm of uncertain behavi or of skin: Right Chin Face: R/O BCC 08/16/2013 02/01/2015 Actinic skin damage 08/16/2013 02/02/20 15 Viral warts, unspecified 08/16/2013 Gama angioma 08/16/2013 02/01/2015 Other seborrheic keratosis 08/16/2013 0 02/01/2015 Solar lentigo 08/16/2013 02/01/2015 Epidermal cyst 08/16/2013 02/01/2015 Umbilical hernia without men tion of obstruction or gangrene 12/29/2002 02/01/2015 documented as of this encounter (statuses as of 11/23/2023) [facility] History of Past illness Narrative* Problem Noted Date Diagnosed Date Resolved Date GERD without esophagitis 11/15/2015 Overview: SeeMarkell samson Dr Gastroesophageal reflux disease 08/03/2015 08/03/2015 Neoplasm of uncertain behavi or of skin: Right Chin Face: R/O BCC 08/16/2013 02/01/2015 Actinic skin damage 08/16/2013 02/02/20 15 Viral warts, unspecified 08/16/2013 Gama angioma 08/16/2013 02/01/2015 Other seborrheic keratosis 08/16/2013 0 02/01/2015 Solar lentigo 08/16/2013 02/01/2015 Epidermal cyst 08/16/2013 02/01/2015 Umbilical hernia without men tion of obstruction or gangrene 12/29/2002 02/01/2015 documented as of this encounter (statuses as of 12/15/2023) [facility] History of Past illness Narrative* Problem Noted Date Diagnosed Date Resolved Date GERD without esophagitis 11/15/2015 Overview: [address] Gastroesophageal reflux disease 08/03/2015 08/03/2015 Neoplasm of uncertain behavi or of skin: Right Chin Face: R/O BCC 08/16/2013 02/01/2015 Actinic skin damage 08/16/2013 02/02/20 15 Viral warts, unspecified 08/16/2013 Gama angioma 08/16/2013 02/01/2015 Other seborrheic keratosis 08/16/2013 0 02/01/2015 Solar lentigo 08/16/2013 02/01/2015 Epidermal cyst 08/16/2013 02/01/2015 Umbilical hernia without men tion of obstruction or gangrene 12/29/2002 02/01/2015 documented as of this encounter (statuses as of 12/16/2023) [facility] History of Past illness Narrative* Problem Noted Date Diagnosed Date Resolved Date GERD without esophagitis 11/15/2015 Overview: SeeMarkell samson Dr Gastroesophageal reflux disease 08/03/2015 08/03/2015 Neoplasm of uncertain behavi or of skin: Right Chin Face: R/O BCC 08/16/2013 02/01/2015 Actinic skin damage 08/16/2013 02/02/20 15 Viral warts, unspecified 08/16/2013 Gama angioma 08/16/2013 02/01/2015 Other seborrheic keratosis 08/16/2013 0 02/01/2015 Solar lentigo 08/16/2013 02/01/2015 Epidermal cyst 08/16/2013 02/01/2015 Umbilical hernia without men tion of obstruction or gangrene 12/29/2002 02/01/2015 documented as of this encounter (statuses as of 12/24/2023) [facility] History of Past illness Narrative* Problem Noted Date Diagnosed Date Resolved Date GERD without esophagitis 11/15/2015 Overview: Markell Reese Dr Gastroesophageal reflux disease 08/03/2015 08/03/2015 Neoplasm of uncertain behavi or of skin: Right Chin Face: R/O BCC 08/16/2013 02/01/2015 Actinic skin damage 08/16/2013 02/02/20 15 Viral warts, unspecified 08/16/2013 Gama angioma 08/16/2013 02/01/2015 Other seborrheic keratosis 08/16/2013 0 02/01/2015 Solar lentigo 08/16/2013 02/01/2015 Epidermal cyst 08/16/2013 02/01/2015 Umbilical hernia without men tion of obstruction or gangrene 12/29/2002 02/01/2015 documented as of this encounter (statuses as of 01/20/2024) [facility] History of Past illness Narrative* Problem Noted Date Diagnosed Date Resolved Date GERD without esophagitis 11/15/2015 Overview: SeeMarkell samson Dr Gastroesophageal reflux disease 08/03/2015 08/03/2015 Neoplasm of uncertain behavi or of skin: Right Chin Face: R/O BCC 08/16/2013 02/01/2015 Actinic skin damage 08/16/2013 02/02/20 15 Viral warts, unspecified 08/16/2013 Gama angioma 08/16/2013 02/01/2015 Other seborrheic keratosis 08/16/2013 0 02/01/2015 Solar lentigo 08/16/2013 02/01/2015 Epidermal cyst 08/16/2013 02/01/2015 Umbilical hernia without men tion of obstruction or gangrene 12/29/2002 02/01/2015 documented as of this encounter (statuses as of 01/22/2024) [facility] History of Past illness Narrative* Problem Noted Date Diagnosed Date Resolved Date GERD without esophagitis 11/15/2015 Overview: SeeMarkell samson Dr Gastroesophageal reflux disease 08/03/2015 08/03/2015 Neoplasm of uncertain behavi or of skin: Right Chin Face: R/O BCC 08/16/2013 02/01/2015 Actinic skin damage 08/16/2013 02/02/20 15 Viral warts, unspecified 08/16/2013 Gama angioma 08/16/2013 02/01/2015 Other seborrheic keratosis 08/16/2013 0 02/01/2015 Solar lentigo 08/16/2013 02/01/2015 Epidermal cyst 08/16/2013 02/01/2015 Umbilical hernia without men tion of obstruction or gangrene 12/29/2002 02/01/2015 documented as of this encounter (statuses as of 01/08/2024) [facility] Evaluation note* Diagnosis Onset Date Resolution Status Admit Date Essential (primary) hypertension acute June 23, 2025 1:47pm HLD (hyperlipidemia) acute Jun 1:47pm History of coronary artery stent placement October 07, 2013 resolved Septemb er 2024 1:47pm [facility] Work Phone: Evaluation note* Diagnosis Essential hypertension, benign [facility]* Diagnosis Medicare annual wellness visit, subsequent- Primary Routine general medical examination at a health care facility Essential hypertension, benign Mixed hyperlipidemia Elevated fasting blood sugar Impaired fasting glucose GERD without esophagitis Esophageal reflux CAD S/P percutaneous coronary angioplasty Coronary atherosclerosis of [place] coronary artery 3-vessel CAD Coronary atherosclerosis of unspecified type of vessel, [place] or graft Dementia without behavioral disturbance, unspecified dementia type (HCC) NAIN (obstructive sleep apnea) Obstructive sleep apnea (adult) (pediatric) Anemia, unspecified type Living will on file Advance directive discussed with patient Other specified counseling History of CVA (cerebrovascular accident) Transient ischemic attack (TIA), and cerebral infarction without residual deficits Medication management Encounter for long-term (current) use of other medications History of prostate cancer Personal history of malignant neoplasm of prostate Need for vaccination Need for prophylactic vaccination and inoculation against unspecified single disease [facility] Diagnosis Skin lump of arm, right- Primary [facility] Diagnosis Skin lump of arm, right [facility]* Diagnosis Gastroesophageal reflux disease with esophagitis without hemorrhage [facility] noteNo assessment information availableWSt. [facility] Work [facility]: Evaluation [facility]* Diagnosis Essential hypertension, benign [facility] Diagnosis Dislocation of right shoulder joint, initial encounter- Primary [facility] Diagnosis Need for influenza vaccination- Primary Need for prophylactic vaccination and inoculation against influenza [facility] Diagnosis Anterior dislocation of right shoulder, initial encounter- Primary Traumatic tear of right rotator cuff, unspecified tear extent, initial encounter [facility] Diagnosis Anterior dislocation of right shoulder, initial encounter- Primary Traumatic tear of right rotator cuff, unspecified tear extent, initial encounter [facility] Diagnosis Essential hypertension, benign- Primary Elevated fasting blood sugar Impaired fasting glucose Mixed hyperlipidemia GERD without esophagitis Esophageal reflux Dementia without behavioral disturbance (HCC) Dementia, unspecified, without behavioral disturbance CAD S/P percutaneous coronary angioplasty Coronary atherosclerosis of [place] coronary artery History of CVA (cerebrovascular accident) Transient ischemic attack (TIA), and cerebral infarction without residual deficits NAIN (obstructive sleep apnea) Obstructive sleep apnea (adult) (pediatric) Anemia, unspecified type Advance directive discussed with patient Other specified counseling Medication management Encounter for long-term (current) use of other medications [facility] Diagnosis Anterior dislocation of right shoulder, subsequent encounter- Primary 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, subsequent encounter [facility] Diagnosis Anterior dislocation of right shoulder, subsequent encounter- Primary 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, subsequent encounter [facility] Diagnosis Anterior dislocation of right shoulder, subsequent encounter- Primary 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, subsequent [facility] Onychomycosis- Primary Dermatophytosis of nail Pain in toe of left foot Pain in limb Pain in toe of right foot Pain in limb [facility] Diagnosis Anterior dislocation of right shoulder, subsequent encounter- Primary 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, subsequent encounter [facility] Diagnosis Anterior dislocation of right shoulder, subsequent encounter- Primary 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, subsequent encounter [facility] Diagnosis Anterior dislocation of right shoulder, subsequent encounter- Primary 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, subsequent encounter [facility]* Diagnosis Gastroesophageal reflux disease with esophagitis without hemorrhage [facility] Diagnosis Essential hypertension, benign [facility] Diagnosis Fall, initial encounter- Primary Hematoma Contusion of unspecified site Visit for suture removal Encounter for removal of sutures [facility] Diagnosis Medicare annual wellness visit, subsequent- Primary Routine general medical examination at a health care facility Essential hypertension, benign Mixed hyperlipidemia Elevated fasting blood sugar Impaired fasting glucose CAD S/P percutaneous coronary angioplasty Coronary atherosclerosis of [place] coronary artery GERD without esophagitis Esophageal reflux History of CVA (cerebrovascular accident) Transient ischemic attack (TIA), and cerebral infarction without residual deficits Dementia without behavioral disturbance (HCC) Dementia, unspecified, without behavioral disturbance NAIN (obstructive sleep apnea) Obstructive sleep apnea (adult) (pediatric) [facility] Diagnosis Essential hypertension, benign [facility] Diagnosis Urinary incontinence, unspecified type- Primary [facility] Diagnosis COVID-19- Primary Bacterial pneumonia Bacterial pneumonia, unspecified Urinary incontinence, unspecified type Altered mental status, unspecified altered mental status type History of CVA (cerebrovascular accident) Transient ischemic attack (TIA), and cerebral infarction without residual deficits Other specified transient cerebral ischemias [facility]* Diagnosis Bacterial pneumonia- Primary Bacterial pneumonia, unspecified Need for vaccination Need for prophylactic vaccination and inoculation against unspecified single disease [facility]* Diagnosis Essential hypertension, benign [facility] Diagnosis Dementia without behavioral disturbance (HCC)- Primary Dementia, unspecified, without behavioral disturbance NAIN (obstructive sleep apnea) Obstructive sleep apnea (adult) (pediatric) History of CVA (cerebrovascular accident) Transient ischemic attack (TIA), and cerebral infarction without residual deficits Altered mental status, unspecified altered mental status type Transient cerebral ischemia, unspecified type Seizure (HCC) Other convulsions [facility]* Diagnosis Centrilobular emphysema (HCC) Other emphysema [facility] Diagnosis Centrilobular emphysema (HCC) Other emphysema [facility]* Diagnosis Transient cerebral ischemia, unspecified type [facility] Diagnosis Transient cerebral ischemia, unspecified type [facility] Diagnosis 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 Other persistent mental disorders due to conditions classified elsewhere Nonspecific abnormal electroencephalogram (EEG) History of CVA (cerebrovascular accident) Transient ischemic attack (TIA), and cerebral infarction without residual deficits Seizure (HCC) Other convulsions Altered mental status, unspecified altered mental status type [facility]* Diagnosis Essential hypertension, benign [facility] Diagnosis Pain of left heel- Primary Pain in limb [facility] Diagnosis Pain of left heel- Primary Pain in limb [facility] Diagnosis Dementia without behavioral disturbance (HCC)- Primary Dementia, unspecified, without behavioral disturbance NAIN (obstructive sleep apnea) Obstructive sleep apnea (adult) (pediatric) History of CVA (cerebrovascular accident) Transient ischemic attack (TIA), and cerebral infarction without residual deficits Altered mental status, unspecified altered mental status type Abnormal EEG Nonspecific abnormal electroencephalogram (EEG) [facility] Diagnosis Calcaneal spur of left foot- Primary Calcaneal spur Pain of left heel Pain in limb [facility] Diagnosis Renal insufficiency- Primary Unspecified disorder of kidney and ureter [facility] Diagnosis Medicare annual wellness visit, subsequent- Primary Routine general medical examination at a health care facility Essential hypertension, benign Mixed hyperlipidemia Elevated fasting blood sugar Impaired fasting glucose GERD without esophagitis Esophageal reflux CAD S/P percutaneous coronary angioplasty Coronary atherosclerosis of [place] coronary artery History of CVA (cerebrovascular accident) Transient ischemic attack (TIA), and cerebral infarction without residual deficits Dementia without behavioral disturbance (HCC) Dementia, unspecified, without behavioral disturbance NAIN (obstructive sleep apnea) Obstructive sleep apnea (adult) (pediatric) Anemia, unspecified type Advance directive discussed with patient Other specified counseling Pulmonary emphysema, unspecified emphysema type ([facility]) Stage 3 chronic kidney disease, unspecified whether stage 3a or 3b CKD ([facility]) [facility] Diagnosis Moderate COPD (chronic obstructive pulmonary disease) ([facility])- Primary Chronic airway obstruction, not elsewhere classified Asbestosis ([facility]) Former smoker Personal history of tobacco use, presenting hazards to health [facility] Diagnosis Pain of left heel Pain in limb [facility] Diagnosis Acute gout of right elbow, unspecified cause- Primary [facility]* Diagnosis Bacterial pneumonia- Primary Bacterial pneumonia, unspecified Cellulitis of skin Cellulitis and abscess of unspecified site [facility] Diagnosis COVID-19 Bacterial pneumonia Bacterial pneumonia, unspecified [facility] Diagnosis Cellulitis of skin- Primary Cellulitis and abscess of unspecified site Acute gout of right elbow, unspecified cause Bacterial pneumonia Bacterial pneumonia, unspecified [facility] Diagnosis Pain of finger of left hand- Primary Pain in limb [facility] Diagnosis Hand injury, right, initial encounter [facility] Diagnosis Hand pain, right Pain in limb [facility] Diagnosis Acute right-sided low back pain without sciatica [facility] Diagnosis Mass of subcutaneous tissue of back- Primary [facility]* Diagnosis Essential hypertension, benign [facility]* Diagnosis Mass of subcutaneous tissue of back [facility]* Diagnosis Seizure (HCC) Other convulsions Altered mental status, unspecified altered mental status type [facility] Diagnosis Mass of subcutaneous tissue of back- Primary [facility]* Diagnosis Encounter for immunization Need for other specified prophylactic vaccination against single bacterial disease [facility] Diagnosis Mass of subcutaneous tissue of back- Primary [facility]* Diagnosis Mass of subcutaneous tissue of back [facility]* Diagnosis Left hip pain- Primary Pain in joint, pelvic region and thigh [facility] Diagnosis Cellulitis of skin- Primary Cellulitis and abscess of unspecified site Rash Rash and other nonspecific skin eruption Encounter for immunization Need for other specified prophylactic vaccination against single bacterial disease [facility]* Diagnosis Cellulitis of skin- Primary Cellulitis and abscess of unspecified site Open wound of skin Dementia with behavioral disturbance (HCC) Dementia, unspecified, with behavioral disturbance 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) Dementia without behavioral disturbance (HCC)- Primary Dementia, unspecified, without behavioral disturbance NAIN (obstructive sleep apnea) Obstructive sleep apnea (adult) (pediatric) History of CVA (cerebrovascular accident) Transient ischemic attack (TIA), and cerebral infarction without residual deficits Altered mental status, unspecified altered mental status type Abnormal EEG Nonspecific abnormal electroencephalogram (EEG) [facility] Diagnosis Transient cerebral ischemia, unspecified type [facility] Diagnosis 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)- Primary [facility] Diagnosis Dementia without behavioral disturbance (HCC)- Primary Dementia, unspecified, without behavioral disturbance NAIN (obstructive sleep apnea) Obstructive sleep apnea (adult) (pediatric) History of CVA (cerebrovascular accident) Transient ischemic attack (TIA), and cerebral infarction without residual deficits Altered mental status, unspecified altered mental status type Abnormal EEG Nonspecific abnormal electroencephalogram (EEG) Transient cerebral ischemia, unspecified type [facility] Diagnosis Acute encephalopathy- Primary Encephalopathy, unspecified 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) Dementia with behavioral disturbance (HCC) Dementia, unspecified, with behavioral disturbance Muscular deconditioning Muscular wasting and disuse atrophy, not elsewhere classified Pneumonia of left lower lobe due to infectious organism Decubitus ulcer of left buttock, stage 2 ([facility]) Pressure ulcer, buttock [facility] Diagnosis Left hip pain Pain in joint, pelvic region and thigh [facility]* Diagnosis Alzheimer's disease (HCC)- Primary Alzheimer's disease [facility]* Diagnosis Bacterial pneumonia- Primary Bacterial pneumonia, unspecified Pressure injury of left buttock, stage 2 (HCC) [facility] Diagnosis URI, acute- Primary Acute upper respiratory infections of unspecified site [facility] Diagnosis Onychomycosis- Primary Dermatophytosis of nail Pain in toe of left foot Pain in limb Pain in toe of right foot Pain in limb Left foot pain Pain in limb [facility] Diagnosis Pressure sensation in both ears- Primary [facility] Diagnosis Severe dementia, unspecified dementia type, unspecified whether behavioral, psychotic, or mood disturbance or anxiety (HCC)- Primary History of CVA (cerebrovascular accident) Transient ischemic attack (TIA), and cerebral infarction without residual deficits Abnormal EEG Nonspecific abnormal electroencephalogram (EEG) NAIN (obstructive sleep apnea) Obstructive sleep apnea (adult) (pediatric) [facility] Diagnosis Gastroesophageal reflux disease with esophagitis without hemorrhage [facility] Diagnosis Fall, initial encounter- Primary Right arm pain Pain in limb Acute pain of right shoulder Right hip pain Pain in joint, pelvic region and thigh Fall, initial encounter Right hip pain Pain in joint, pelvic region and thigh Acute pain of right shoulder Right arm pain Pain in limb [facility]* Diagnosis Fall, initial encounter Right hip pain Pain in joint, pelvic region and thigh Acute pain of right shoulder Right arm pain Pain in limb [facility]* Diagnosis Essential hypertension, benign [facility]* Diagnosis Medicare annual wellness visit, subsequent- Primary Routine general medical examination at a health care facility Essential hypertension, benign Mixed hyperlipidemia Elevated fasting blood sugar Impaired fasting glucose GERD without esophagitis Esophageal reflux Pulmonary emphysema, unspecified emphysema type (HCC) CAD S/P percutaneous coronary angioplasty Coronary atherosclerosis of [place] coronary artery Stage 3a chronic kidney disease (HCC) History of CVA (cerebrovascular accident) Transient ischemic attack (TIA), and cerebral infarction without residual deficits Dementia with behavioral disturbance (HCC) Dementia, unspecified, with behavioral disturbance 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) Anemia, unspecified type NAIN (obstructive sleep apnea) Obstructive sleep apnea (adult) (pediatric) History of prostate cancer Personal history of malignant neoplasm of prostate Advance directive discussed with patient Other specified counseling Vitamin B6 deficiency Zinc deficiency Mineral deficiency, not elsewhere classified Medication management Encounter for long-term (current) use of other medications Hypomagnesemia Disorders of magnesium metabolism documented in this encounter [facility] note* Diagnosis Vitamin B6 deficiency- Primary documented in this encounter [facility] note* Diagnosis Onychomycosis- Primary Dermatophytosis of nail Pain in toe of left foot Pain in limb Pain in toe of right foot Pain in limb Diminished pulses in lower extremity Other symptoms involving cardiovascular system [facility] Additional Instructions Follow-up with orthopedics in 1 to 2 weeks. Wear sling until cleared by orthopedics. You can take ibuprofen or Tylenol instead of prescription pain medicine (Adams). At the pain is too severe he does have a prescription for Adams which is hydrocodone/acetaminophen. This medicine can increase confusion and does cause constipation. If you do take it take a stool softener or MiraLAX with it.[facility] Work Phone: Hospital Discharge instructions Additional Instructions Plenty of fluids and rest. Follow-up with your doctor if not improving. Return if worse.[facility] Work Phone: Patient's home Plan of care note* Visit Details Visit Type -SN AGENCY DC WO VISIT Discipline -Mcc Problems Problem Description Start Date Status Goals Interve ntions Discharge Disciplines: Skilled Services 10/22/2024 Active 1 goal linked to scheduled/document ed intervention 1 goal intervention scheduled/documente d in this visit Goals Goal Associated Problem Outcome Goal Met? Visit Notes Manage discharge planning Description: Patient/caregiver will verbalize understanding of ongoing discharge plan provided related to disease management, arrangements for outpatient and/or community services, obtaining medications, supplies, and DME, as needed throughout certification period. Discharge No Interventions Intervention Associated Problem/Goal Status Variance Visit Notes Instruct on final discharge plan and deliver discharge instructions Problem:Discharge Goal:Manage discharge planning Completed Delivered Discharge plan: Discharge plan discussed with patient and caregiver for plan for transition to: caregiver assistance documented in this encounter [facility] for referral (narrative)* Outpatient Procedure (Routine) - Authorized Specialty Diagnoses / Procedures Referred By Opal galloway Referred To Contact [facility] Diagnoses Seizure (HCC) Altered mental status, unspecified altered mental status type Procedures EPIL EEG ROUTINE ELECTROENCEPHALOGRAM REC COMA/SLEEP ONLY Shaye Kitchen Jr., MD [address] [facility] [address] [place] [address] [address] Referral ID Status Reason Start Date Expiration Date Visits Requested Visits Authorized [id number] Authorized Auto-Generat ed Referral 11/20/2023 11/20/2024 1 1 * MRI/CT (Routine) - Authorized Specialty Diagnoses / Procedures Referred By Opal galloway Referred To Contact MR IMAGING Diagnoses Transient cerebral ischemia, unspecified type Procedures MRA CAROTID WO IVCON MRA, NECK; W/O CONTRAST Shaye Kitchen Jr., MD [address] [place] [address] [place] [address] Referral ID Status Reason Start Date Expiration Date Visits Requested Visits Authorized [id number] Authorized Auto-Generat ed Referral 11/20/2023 12/19/2024 1 1 * MRI/CT (Routine) - Authorized Specialty Diagnoses / Procedures Referred By Contac t Referred To Contact MR IMAGING Diagnoses Transient cerebral ischemia, unspecified type Procedures MRA BRAIN WO IVCON MRA, HEAD W/O CONTRAST Shaye Kitchen Jr., MD [address] [facility] [address] [place] [address] [place] [address] Referral ID Status Reason Start Date Expiration Date Visits Requested Visits Authorized [id number] Authorized Auto-Generat ed Referral 11/20/2023 12/19/2024 1 1 * MRI/CT (Routine) - Authorized Specialty Diagnoses / Procedures Referred By Contac t Referred To Contact MR IMAGING Diagnoses Transient cerebral ischemia, unspecified type Procedures MRI BRAIN WO IVCON MRI BRAIN BRAIN STEM W/O CONTRAST MATERIAL Shaye Kitchen Jr., MD [address] [facility] [address] [place] [address] [place] [address] Referral ID Status Reason Start Date Expiration Date Visits Requested Visits Authorized [id number] Authorized Auto-Generat ed Referral 11/20/2023 12/19/2024 1 [facility] Diagnostic Procedure Only (Routine) - Closed Specialty Diagnoses / Procedures Referred By Contac t Referred To Contact XR IMAGING Diagnoses Pain of left heel Procedures XR FOOT GENERAL 3V AP/LAT/OBL LEFT RADEX FOOT COMPLETE MINIMUM 3 VIEWS Danita Meraz PA-C [address] [place] [address] [place] [address] Referral ID Status Reason Start Date Expiration Date V isits Requested Visits Authorized [id number] Closed Auto-Generate d Referral 03/04/2024 04/03/2025 1 1 [facility] for referral (narrative)* Diagnostic Procedure Only (Routine) - Closed Specialty Diagnoses / Procedures Referred By Contac t Referred To Contact XR IMAGING Diagnoses Pain of left heel Procedures XR FOOT GENERAL 3V AP/LAT/OBL LEFT RADEX FOOT COMPLETE MINIMUM 3 VIEWS Danita Meraz PA-C [address] [place] [address] [place] [address] Referral ID Status Reason Start Date Expiration Date V isits Requested Visits Authorized [id number] Closed Auto-Generate d Referral 03/04/2024 04/03/2025 1 1 [facility] for referral (narrative)* Diagnostic Procedure Only (Routine) - New Request Specialty Diagnoses / Procedures Referred By Contac t Referred To Contact XR IMAGING Diagnoses Pain of finger of left hand Procedures XR DIGIT GENERAL 3V FRONTAL/LAT/OBL LEFT RADEX FINGR MINIMUM 2 VIEWS Amanda Montana PA-C [address] [place] [address] [place] [address] Referral ID Status Reason Start Date Expiration Date Visits Requested Visits Authorized [id number] New Request Auto-Generat ed Referral 06/28/2024 07/28/2025 1 1 [facility] for referral (narrative)* Diagnostic Procedure Only (Urgent) - Closed Specialty Diagnoses / Procedures Referred By Contac t Referred To Contact XR IMAGING Diagnoses Hand injury, right, initial encounter Procedures XR HAND GENERAL 3V PA/LAT/OBL RT X-RAY HAND MINIMUM 3 VIEWS Adama Colón APRN.EMBROIDERY ASSISTANT [address] [place] [address] [place] [address] Referral ID Status Reason Start Date Expiration Date V isits Requested Visits Authorized [id number] Closed Auto-Generate d Referral 05/18/2021 06/17/2022 1 1 [facility] for referral (narrative)* Diagnostic Procedure Only (Routine) - Closed Specialty Diagnoses / Procedures Referred By Contac t Referred To Contact XR IMAGING Diagnoses Hand pain, right Procedures XR HAND GENERAL 3V PA/LAT/OBL RT X-RAY HAND MINIMUM 3 VIEWS Adama Mendoza MD [address] [place] [address] [place] [address] Referral ID Status Reason Start Date Expiration Date V isits Requested Visits Authorized [id number] Closed Auto-Generate d Referral 06/19/2021 07/19/2022 1 1 [facility] for referral (narrative)* Diagnostic Procedure Only (Routine) - Authorized Specialty Diagnoses / Procedures Referred By Contac t Referred To Contact US IMAGING Diagnoses Mass of subcutaneous tissue of back Procedures US CHEST WALL/SOFT TISSUE US CHEST REAL TIME W/IMAGE DOCUMENTATION Danita Meraz PA-C [address] [place] [address] [place] [address] Referral ID Status Reason Start Date Expiration Date Visits Requested Visits Authorized [id number] Authorized Auto-Generat ed Referral 08/20/2025 1 1 [facility] for referral (narrative)No reason for referral information [facility] Work Phone: Reason for visit Narrative* Diagnostic Procedure Only (Routine) - Closed Specialty Diagnoses / Procedures Referred By Contac t Referred To Contact XR IMAGING Diagnoses Pain of left heel Procedures XR FOOT GENERAL 3V AP/LAT/OBL LEFT RADEX FOOT COMPLETE MINIMUM 3 VIEWS Danita Meraz PA-C [address] [place] [address] [place] [address] Referral ID Status Reason Start Date Expiration Date V isits Requested Visits Authorized [id number] Closed Auto-Generate d Referral 03/04/2024 04/03/2025 1 1 [facility] for visit Narrative* Diagnostic Procedure Only (Urgent) - Closed Specialty Diagnoses / Procedures Referred By Contac t Referred To Contact XR IMAGING Diagnoses Hand injury, right, initial encounter Procedures XR HAND GENERAL 3V PA/LAT/OBL RT X-RAY HAND MINIMUM 3 VIEWS Adama Colón APRN.EMBROIDERY ASSISTANT [address] [place] [address] Xr Imaging [facility] Referral ID Status Reason Start Date Expiration Date V isits Requested Visits Authorized [id number] Closed Auto-Generate d Referral 05/18/2021 06/17/2022 1 1 [facility] for visit Narrative* Diagnostic Procedure Only (Routine) - Closed Specialty Diagnoses / Procedures Referred By Contac t Referred To Contact XR IMAGING Diagnoses Hand pain, right Procedures XR HAND GENERAL 3V PA/LAT/OBL RT X-RAY HAND MINIMUM 3 VIEWS Adama Mendoza MD [address] [place] [address] Xr Imaging [place] [address] Referral ID Status Reason Start Date Expiration Date V isits Requested Visits Authorized [id number] Closed Auto-Generate d Referral 06/19/2021 07/19/2022 1 1 [facility] for visit Narrative* Outpatient Procedure (Routine) - Closed Specialty Diagnoses / Procedures Referred By Contac t Referred To Contact [facility] Diagnoses Seizure (HCC) Altered mental status, unspecified altered mental status type Procedures EPIL EEG ROUTINE ELECTROENCEPHALOGRAM REC COMA/SLEEP ONLY Shaye Kitchen Jr., MD [address] [address] [facility] [address] [place] [id number] Referral ID Status Reason Start Date Expiration Date V isits Requested Visits Authorized [id number] Closed Auto-Generate d Referral 11/20/2023 11/20/2024 1 1 [facility] for visit Narrative* Diagnostic Procedure Only (Routine) - Closed Specialty Diagnoses / Procedures Referred By Contac t Referred To Contact XR IMAGING Diagnoses Left hip pain Procedures XR HIP GENERAL 3V PELV/AP/LAT LEFT RADEX HIP UNILATERAL WITH PELVIS 2-3 VIEWS Adama Mendoza MD [address] [place] [address] [place] [address] Referral ID Status Reason Start Date Expiration Date V isits Requested Visits Authorized [id number] Closed Auto-Generate d Referral 09/10/2024 10/10/2025 1 1 [facility] for visit Narrative* Diagnostic Procedure Only (Urgent) - Closed Specialty Diagnoses / Procedures Referred By Contac t Referred To Contact XR IMAGING Diagnoses Fall, initial encounter Right arm pain Procedures XR WRIST GENERAL 3V PA/LAT/OBL RIGHT RADEX WRIST COMPLETE MINIMUM 3 VIEWS Claude Cardenas APRN.CNP [address] [place] [address] Phone: tel: fax: [place] [address] Referral ID Status Reason Start Date Expiration Date V isits Requested Visits Authorized [id number] Closed Auto-Generate d Referral 01/09/2025 02/08/2026 1 1 [facility] Summary Purpose Family History No Family History Records Found Relationship Condition Age at Onset Recorded Date/T zeke sister Coronary artery disease Unknown mother Coronary artery disease Unknown father Malignant neoplasm of colon Unknown brother Coronary artery disease Unknown Advance Directives No Advanced Directives Records FoundDocuments on File Type Date Recorded Patient Discharge Planner Expl anation Advance Directive(s) 07/28/2018 6:25 AM Date Activated Date Inactivated Comments 10/15/2024 5:22 PM 10/20/2024 6:32 PM Question Answer Comments Full Code Order Discussed With: Surrogate Decisi on Maker Surrogate Decision Maker Name: Son Surrogate Decision Maker Relationship: M ajority of Adult Children (brand representative) Documents on File Type Date Recorded Patient Discharge Planner Expl anation Advance Directive(s) Advance Directive(s) 08/10/2020 12:16 PM Advance Directive(s) 07/28/2018 6:25 AM S canned [id number] Advance Directive(s) 07/28/2018 9:30 AM Advance Directive(s) 07/28/2018 6:25 AM Documents on File Type Date Recorded Patient Discharge Planner Expl anation Advance Directive(s) Advance Directive(s) 08/10/2020 12:16 PM Advance Directive(s) 07/28/2018 6:25 AM S canned [id number] Advance Directive(s) 07/28/2018 9:30 AM Advance Directive(s) 07/28/2018 6:25 AM Advance Directive Response Recorded Date/ Time Advance Directives Yes October 15, 2020 8:02am Living Will Yes July 24 4:16pm Power of Clerk Rating Yes July 24, 2022 4:16pm Name of Medical Power of Clerk Rating sonjeff July 24, 2022 4:16p m Documents on File Type Date Recorded Patient Discharge Planner Expl anation Advance Directive(s) 07/28/2018 6:25 AM Advance Directive Response Recorded Date/ Time Advance Directives Yes October 15, 2020 8:02am Living Will Yes June 17, 2023 1:35pm Power of Clerk Rating Yes June 1:35pm Name of Medical Power of Clerk Rating REFUGIO HACKWOR TH June 17, 2023 1:35pm Advance Directive Response Recorded Date/ Time Name of Medical Power of Clerk Rating REFUGIO HACKWOR TH June 17, 2023 12:35pm Name of Medical Power of Clerk Rating [email or web address] hackwor th September 26, 2023 11:03am Advance Directives Yes October 15, 2020 7:02am Living Will Yes September 26, 11:03am Power of Clerk Rating Yes September 26, 2023 11:03am Date Activated Date Inactivated Comments 10/22/2024 11:10 PM Date Activated Date Inactivated Comments 10/15/2024 5:22 PM 10/20/2024 6:32 PM Question Answer Comments Full Code Order Discussed With: Surrogate Decisi on Maker Surrogate Decision Maker Name: Son Surrogate Decision Maker Relationship: M ajority of Adult Children (brand representative) Date Activated Date Inactivated Comments 10/22/2024 11:10 PM 11/13/2024 10:39 AM Date Activated Date Inactivated Comments 10/22/2024 11:10 PM 11/13/2024 10:39 AM Date Activated Date Inactivated Comments 10/15/2024 5:22 PM 10/20/2024 6:32 PM Question Answer Comments Full Code Order Discussed With: Surrogate Decisi on Maker Surrogate Decision Maker Name: Son Surrogate Decision Maker Relationship: M ajority of Adult Children (brand representative) Advance Directive Response Recorded Date/ Time Living Will Yes September 26 12:03pm Do you have a Healthcare Power of Clerk Rating? Yes September 26, 2023 12:03pm Advance Directives Yes October 15, 2020 8:02am Reason for Referral Specialty Diagnoses / Procedures Referred By Contac t Referred To Contact General Surgery Diagnoses Skin lump of arm, right Procedures CONSULT TO GENERAL SURGERY OFFICE/OUTPATIENT [facility] 60-74 MINUTES Danita Meraz PA-C [address] [place] [address] Referral ID Status Reason Start Date Expiration Date Visits Requested Visits Authorized [id number] Authorized PCP Requested Referral 04/02/2022 04/02/2023 1 1 Specialty Diagnoses / Procedures Referred By Contac t Referred To Contact Orthopedics Diagnoses Dislocation of right shoulder joint, initial encounter Procedures CONSULT TO ORTHOPAEDICS OFFICE/OUTPATIENT [facility] [place] 60-74 MINUTES Adama Mendoza MD [address] [place] [address] Referral ID Status Reason Start Date Expiration Date Visits Requested Visits Authorized [id number] Authorized PCP Requested Referral 2 07/28/2023 1 1 Specialty Diagnoses / Procedures Referred By Contac t Referred To Contact [facility] Diagnoses Anterior dislocation of right shoulder, subsequent encounter 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, subsequent encounter Procedures CONSULT TO PHYSICAL THERAPY PHYSICAL THERAPY EVALUATION HIGH COMPLEX 45 MINS Robert Combs MD [address] [place] [address] [facility] [address] [place] [address] Referral ID Status Reason Start Date Expiration Date Visits Requested Visits Authorized [id number] Authorized PCP Requested Referral Auto-Generate d Referral 10/27/2022 10/27/2023 99 99 Specialty Diagnoses / Procedures Referred By Contac t Referred To Contact MR IMAGING Diagnoses Urinary incontinence, unspecified type Altered mental status, unspecified altered mental status type History of CVA (cerebrovascular accident) Other specified transient cerebral ischemias Procedures MRI BRAIN WO IVCON MRI BRAIN BRAIN STEM W/O CONTRAST MATERIAL Adama Mendoza MD [address] [place] [address] [place] [address] Referral ID Status Reason Start Date Expiration Date Visits Requested Visits Authorized [id number] Pending Review Auto-Generat ed Referral 06/23/2023 07/22/2024 1 1 Specialty Diagnoses / Procedures Referred By Contac t Referred To Contact MR IMAGING Diagnoses Transient cerebral ischemia, unspecified type Procedures MRI BRAIN WO IVCON MRI BRAIN BRAIN STEM W/O CONTRAST MATERIAL Shaye Kitchen Jr., MD [address] [facility] [address] [place] [address] [place] [address] Referral ID Status Reason Start Date Expiration Date V isits Requested Visits Authorized [id number] Closed Auto-Generate d Referral 11/20/2023 12/19/2024 1 1 Specialty Diagnoses / Procedures Referred By Contac t Referred To Contact MR IMAGING Diagnoses Transient cerebral ischemia, unspecified type Procedures MRA BRAIN WO IVCON MRA, HEAD W/O CONTRAST Shaye Kitchen Jr., MD [facility] [facility] [address] [place] [address] [place] [address] Referral ID Status Reason Start Date Expiration Date V isits Requested Visits Authorized [id number] Closed Auto-Generate d Referral 11/20/2023 12/19/2024 1 1 Specialty Diagnoses / Procedures Referred By Contac t Referred To Contact MR IMAGING Diagnoses Transient cerebral ischemia, unspecified type Procedures MRA CAROTID WO IVCON MRA, NECK; W/O CONTRAST Shaye Kitchen Jr., [facility] [address] [place] [address] [place] [address] Referral ID Status Reason Start Date Expiration Date V isits Requested Visits Authorized [id number] Closed Auto-Generate d Referral 11/20/2023 12/19/2024 1 1 Specialty Diagnoses / Procedures Referred By Contac t Referred To Contact Podiatry Diagnoses Pain of left heel Procedures CONSULT TO PODIATRY OFFICE/OUTPATIENT [facility] 60 MINUTES Danita Meraz PA-C [address] [place] [address] Referral ID Status Reason Start Date Expiration Date Visits Requested Visits Authorized [id number] Authorized PCP Requested Referral 03/04/2024 03/04/2025 1 1 Specialty Diagnoses / Procedures Referred By Contac t Referred To Contact General Surgery Diagnoses Mass of subcutaneous tissue of back Procedures CONSULT TO GENERAL SURGERY OFFICE/OUTPATIENT [facility] 60 MINUTES Danita Meraz PA-C [address] [place] [address] Referral ID Status Reason Start Date Expiration Date Visits Requested Visits Authorized [id number] Authorized PCP Requested Referral 08/01/2025 1 1 Specialty Diagnoses / Procedures Referred By Contac t Referred To Contact [facility] Diagnoses Left hip pain Procedures CONSULT TO PHYSICAL THERAPY PHYSICAL THERAPY EVALUATION HIGH COMPLEX 45 MINS Adama Mendoza MD [address] [place] [address] [facility] [address] [place] [address] Referral ID Status Reason Start Date Expiration Date Visits Requested Visits Authorized [id number] Authorized PCP Requested Referral Auto-Generate d Referral 09/10/2024 09/10/2025 99 99 Specialty Diagnoses / Procedures Referred By Contac t Referred To Contact XR IMAGING Diagnoses Left hip pain Procedures XR HIP GENERAL 3V PELV/AP/LAT LEFT RADEX HIP UNILATERAL WITH PELVIS 2-3 VIEWS Adama Mendoza MD [address] [place] [address] [place] [address] Referral ID Status Reason Start Date Expiration Date V isits Requested Visits Authorized [id number] Closed Auto-Generate d Referral 09/10/2024 10/10/2025 1 1 Specialty Diagnoses / Procedures Referred By Contac t Referred To Contact MR IMAGING Diagnoses Transient cerebral ischemia, unspecified type Procedures MRI BRAIN WO IVCON MRI BRAIN BRAIN STEM W/O CONTRAST MATERIAL Margaret Ardon, MOTEL FRONT DESK ATTENDANT.EMBROIDERY ASSISTANT [address] [place] [address] [place] [address] Referral ID Status Reason Start Date Expiration Date Visits Requested Visits Authorized [id number] Authorized Auto-Generat ed Referral 10/14/2024 11/13/2025 1 1 Specialty Diagnoses / Procedures Referred By Contac t Referred To Contact [facility] Diagnoses Transient cerebral ischemia, unspecified type Procedures ECG COMPLETE ECG ROUTINE ECG W/LEAST 12 LDS W/I&R Margaret Ardon, MOTEL FRONT DESK ATTENDANT.EMBROIDERY ASSISTANT [address] [place] [address] [facility] [address] [place] [address] Referral ID Status Reason Start Date Expiration Date V isits Requested Visits Authorized [id number] Closed Auto-Generate d Referral 10/14/2024 10/14/2025 1 1 Chief Complaint and Reason for Visit Chief Complaint fall Chief Complaint CONFUSION Chief Complaint CONFUSION Altered mental status, unspecified alt loc Chief Complaint Admit Date 1 y fu w 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 DOG CONTROL OFFICER June 23 1:47pm Reason for Visit Admit Date Essential (primary) hypertension Sept2024 1:47pm HLD (hyperlipidemia) June 23 1:47pm History of coronary artery stent placeme nt June 23, 2025 1:47pm Additional Source Comments (unrecognized sect ion and content) No Status Records FoundNo Status Records FoundNo Status Records FoundNo Status Records FoundNo Status Records FoundNo Status Records FoundNo Status Records Found INFORMATION SOURCE (unrecogn ized section and content) DATE CREATED AUTHOR 03/29/2018 [facility] DATE CREATED AUTHOR AUTHOR'S ORGANIZ ATION 03/29/2018 [facility] DATE CREATED AUTHOR AUTHOR'S ORGANIZ ATION 03/30/2018 [facility] DATE CREATED AUTHOR AUTHOR'S ORGANIZ ATION 08/18/2019 [facility] DATE CREATED AUTHOR AUTHOR'S ORGANIZ ATION 10/23/2024 [facility] DATE CREATED AUTHOR AUTHOR'S ORGANIZ ATION 06/24/2025 [facility] DATE CREATED AUTHOR AUTHOR'S ORGANCLARA ATION 07/21/2025 [facility] Source Comments (unrecognize d section and content) In the event this informatio n is protected by the Federal Confidentiality of Alcohol and Drug Abuse Patient Records regulations: The Federal rules restrict any use of the information to criminally investigate or prosecute any alcohol or drug abuse patient.[facility] the event this information is protected by the Federal Confidentiality of Alcohol and Drug Abuse Patient Records regulations: The Federal rules restrict any use of the information to criminally investigate or prosecute any alcohol or drug abuse patient.[facility] the event this information is protected by the Federal Confidentiality of Alcohol and Drug Abuse Patient Records regulations: The Federal rules restrict any use of the information to criminally investigate or prosecute any alcohol or drug abuse patient.[facility] the event this information is protected by the Federal Confidentiality of Alcohol and Drug Abuse Patient Records regulations: The Federal rules restrict any use of the information to criminally investigate or prosecute any alcohol or drug abuse patient.[facility] the event this information is protected by the Federal Confidentiality of Alcohol and Drug Abuse Patient Records regulations: The Federal rules restrict any use of the information to criminally investigate or prosecute any alcohol or drug abuse patient.[facility] the event this information is protected by the Federal Confidentiality of Alcohol and Drug Abuse Patient Records regulations: The Federal rules restrict any use of the information to criminally investigate or prosecute any alcohol or drug abuse patient.[facility] the event this information is protected by the Federal Confidentiality of Alcohol and Drug Abuse Patient Records regulations: The Federal rules restrict any use of the information to criminally investigate or prosecute any alcohol or drug abuse patient.[facility] the event this information is protected by the Federal Confidentiality of Alcohol and Drug Abuse Patient Records regulations: The Federal rules restrict any use of the information to criminally investigate or prosecute any alcohol or drug abuse patient.[facility] the event this information is protected by the Federal Confidentiality of Alcohol and Drug Abuse Patient Records regulations: The Federal rules restrict any use of the information to criminally investigate or prosecute any alcohol or drug abuse patient.[facility] HospitalIn the event this information is protected by the Federal Confidentiality of Alcohol and Drug Abuse Patient Records regulations: The Federal rules restrict any use of the information to criminally investigate or prosecute any alcohol or drug abuse patient.[facility] HospitalIn the event this information is protected by the Federal Confidentiality of Alcohol and Drug Abuse Patient Records regulations: The Federal rules restrict any use of the information to criminally investigate or prosecute any alcohol or drug abuse patient.[facility] HospitalIn the event this information is protected by the Federal Confidentiality of Alcohol and Drug Abuse Patient Records regulations: The Federal rules restrict any use of the information to criminally investigate or prosecute any alcohol or drug abuse patient.[facility] HospitalIn the event this information is protected by the Federal Confidentiality of Alcohol and Drug Abuse Patient Records regulations: The Federal rules restrict any use of the information to criminally investigate or prosecute any alcohol or drug abuse patient.[facility] HospitalIn the event this information is protected by the Federal Confidentiality of Alcohol and Drug Abuse Patient Records regulations: The Federal rules restrict any use of the information to criminally investigate or prosecute any alcohol or drug abuse patient.[facility] HospitalIn the event this information is protected by the Federal Confidentiality of Alcohol and Drug Abuse Patient Records regulations: The Federal rules restrict any use of the information to criminally investigate or prosecute any alcohol or drug abuse patient.[facility] HospitalIn the event this information is protected by the Federal Confidentiality of Alcohol and Drug Abuse Patient Records regulations: The Federal rules restrict any use of the information to criminally investigate or prosecute any alcohol or drug abuse patient.[facility] HospitalIn the event this information is protected by the Federal Confidentiality of Alcohol and Drug Abuse Patient Records regulations: The Federal rules restrict any use of the information to criminally investigate or prosecute any alcohol or drug abuse patient.[facility] HospitalIn the event this information is protected by the Federal Confidentiality of Alcohol and Drug Abuse Patient Records regulations: The Federal rules restrict any use of the information to criminally investigate or prosecute any alcohol or drug abuse patient.[facility] HospitalIn the event this information is protected by the Federal Confidentiality of Alcohol and Drug Abuse Patient Records regulations: The Federal rules restrict any use of the information to criminally investigate or prosecute any alcohol or drug abuse patient.[facility]In the event this information is protected by the Federal Confidentiality of Alcohol and Drug Abuse Patient Records regulations: The Federal rules restrict any use of the information to criminally investigate or prosecute any alcohol or drug abuse patient.[facility] HospitalIn the event this information is protected by the Federal Confidentiality of Alcohol and Drug Abuse Patient Records regulations: The Federal rules restrict any use of the information to criminally investigate or prosecute any alcohol or drug abuse patient.[facility] HospitalIn the event this information is protected by the Federal Confidentiality of Alcohol and Drug Abuse Patient Records regulations: The Federal rules restrict any use of the information to criminally investigate or prosecute any alcohol or drug abuse patient.[facility] HospitalIn the event this information is protected by the Federal Confidentiality of Alcohol and Drug Abuse Patient Records regulations: The Federal rules restrict any use of the information to criminally investigate or prosecute any alcohol or drug abuse patient.[facility] HospitalIn the event this information is protected by the Federal Confidentiality of Alcohol and Drug Abuse Patient Records regulations: The Federal rules restrict any use of the information to criminally investigate or prosecute any alcohol or drug abuse patient.[facility] HospitalIn the event this information is protected by the Federal Confidentiality of Alcohol and Drug Abuse Patient Records regulations: The Federal rules restrict any use of the information to criminally investigate or prosecute any alcohol or drug abuse patient.[facility] HospitalIn the event this information is protected by the Federal Confidentiality of Alcohol and Drug Abuse Patient Records regulations: The Federal rules restrict any use of the information to criminally investigate or prosecute any alcohol or drug abuse patient.[facility] HospitalIn the event this information is protected by the Federal Confidentiality of Alcohol and Drug Abuse Patient Records regulations: The Federal rules restrict any use of the information to criminally investigate or prosecute any alcohol or drug abuse patient.[facility] HospitalIn the event this information is protected by the Federal Confidentiality of Alcohol and Drug Abuse Patient Records regulations: The Federal rules restrict any use of the information to criminally investigate or prosecute any alcohol or drug abuse patient.[facility] HospitalIn the event this information is protected by the Federal Confidentiality of Alcohol and Drug Abuse Patient Records regulations: The Federal rules restrict any use of the information to criminally investigate or prosecute any alcohol or drug abuse patient.[facility] HospitalIn the event this information is protected by the Federal Confidentiality of Alcohol and Drug Abuse Patient Records regulations: The Federal rules restrict any use of the information to criminally investigate or prosecute any alcohol or drug abuse patient.[facility] HospitalIn the event this information is protected by the Federal Confidentiality of Alcohol and Drug Abuse Patient Records regulations: The Federal rules restrict any use of the information to criminally investigate or prosecute any alcohol or drug abuse patient.[facility] HospitalIn the event this information is protected by the Federal Confidentiality of Alcohol and Drug Abuse Patient Records regulations: The Federal rules restrict any use of the information to criminally investigate or prosecute any alcohol or drug abuse patient.[facility] HospitalIn the event this information is protected by the Federal Confidentiality of Alcohol and Drug Abuse Patient Records regulations: The Federal rules restrict any use of the information to criminally investigate or prosecute any alcohol or drug abuse patient.[facility] HospitalIn the event this information is protected by the Federal Confidentiality of Alcohol and Drug Abuse Patient Records regulations: The Federal rules restrict any use of the information to criminally investigate or prosecute any alcohol or drug abuse patient.[facility] HospitalIn the event this information is protected by the Federal Confidentiality of Alcohol and Drug Abuse Patient Records regulations: The Federal rules restrict any use of the information to criminally investigate or prosecute any alcohol or drug abuse patient.[facility] HospitalIn the event this information is protected by the Federal Confidentiality of Alcohol and Drug Abuse Patient Records regulations: The Federal rules restrict any use of the information to criminally investigate or prosecute any alcohol or drug abuse patient.[facility] HospitalIn the event this information is protected by the Federal Confidentiality of Alcohol and Drug Abuse Patient Records regulations: The Federal rules restrict any use of the information to criminally investigate or prosecute any alcohol or drug abuse patient.[facility] HospitalIn the event this information is protected by the Federal Confidentiality of Alcohol and Drug Abuse Patient Records regulations: The Federal rules restrict any use of the information to criminally investigate or prosecute any alcohol or drug abuse patient.[facility] HospitalIn the event this information is protected by the Federal Confidentiality of Alcohol and Drug Abuse Patient Records regulations: The Federal rules restrict any use of the information to criminally investigate or prosecute any alcohol or drug abuse patient.[facility] HospitalIn the event this information is protected by the Federal Confidentiality of Alcohol and Drug Abuse Patient Records regulations: The Federal rules restrict any use of the information to criminally investigate or prosecute any alcohol or drug abuse patient.[facility] HospitalIn the event this information is protected by the Federal Confidentiality of Alcohol and Drug Abuse Patient Records regulations: The Federal rules restrict any use of the information to criminally investigate or prosecute any alcohol or drug abuse patient.[facility] HospitalIn the event this information is protected by the Federal Confidentiality of Alcohol and Drug Abuse Patient Records regulations: The Federal rules restrict any use of the information to criminally investigate or prosecute any alcohol or drug abuse patient.[facility] HospitalIn the event this information is protected by the Federal Confidentiality of Alcohol and Drug Abuse Patient Records regulations: The Federal rules restrict any use of the information to criminally investigate or prosecute any alcohol or drug abuse patient.[facility] HospitalIn the event this information is protected by the Federal Confidentiality of Alcohol and Drug Abuse Patient Records regulations: The Federal rules restrict any use of the information to criminally investigate or prosecute any alcohol or drug abuse patient.[facility] HospitalIn the event this information is protected by the Federal Confidentiality of Alcohol and Drug Abuse Patient Records regulations: The Federal rules restrict any use of the information to criminally investigate or prosecute any alcohol or drug abuse patient.[facility] HospitalIn the event this information is protected by the Federal Confidentiality of Alcohol and Drug Abuse Patient Records regulations: The Federal rules restrict any use of the information to criminally investigate or prosecute any alcohol or drug abuse patient.[facility] HospitalIn the event this information is protected by the Federal Confidentiality of Alcohol and Drug Abuse Patient Records regulations: The Federal rules restrict any use of the information to criminally investigate or prosecute any alcohol or drug abuse patient.[facility] HospitalIn the event this information is protected by the Federal Confidentiality of Alcohol and Drug Abuse Patient Records regulations: The Federal rules restrict any use of the information to criminally investigate or prosecute any alcohol or drug abuse patient.[facility] HospitalIn the event this information is protected by the Federal Confidentiality of Alcohol and Drug Abuse Patient Records regulations: The Federal rules restrict any use of the information to criminally investigate or prosecute any alcohol or drug abuse patient.[facility] HospitalIn the event this information is protected by the Federal Confidentiality of Alcohol and Drug Abuse Patient Records regulations: The Federal rules restrict any use of the information to criminally investigate or prosecute any alcohol or drug abuse patient.[facility] HospitalIn the event this information is protected by the Federal Confidentiality of Alcohol and Drug Abuse Patient Records regulations: The Federal rules restrict any use of the information to criminally investigate or prosecute any alcohol or drug abuse patient.[facility] HospitalIn the event this information is protected by the Federal Confidentiality of Alcohol and Drug Abuse Patient Records regulations: The Federal rules restrict any use of the information to criminally investigate or prosecute any alcohol or drug abuse patient.[facility] HospitalIn the event this information is protected by the Federal Confidentiality of Alcohol and Drug Abuse Patient Records regulations: The Federal rules restrict any use of the information to criminally investigate or prosecute any alcohol or drug abuse patient.[facility] HospitalIn the event this information is protected by the Federal Confidentiality of Alcohol and Drug Abuse Patient Records regulations: The Federal rules restrict any use of the information to criminally investigate or prosecute any alcohol or drug abuse patient.[facility] HospitalIn the event this information is protected by the Federal Confidentiality of Alcohol and Drug Abuse Patient Records regulations: The Federal rules restrict any use of the information to criminally investigate or prosecute any alcohol or drug abuse patient.[facility] HospitalIn the event this information is protected by the Federal Confidentiality of Alcohol and Drug Abuse Patient Records regulations: The Federal rules restrict any use of the information to criminally investigate or prosecute any alcohol or drug abuse patient.[facility] HospitalIn the event this information is protected by the Federal Confidentiality of Alcohol and Drug Abuse Patient Records regulations: The Federal rules restrict any use of the information to criminally investigate or prosecute any alcohol or drug abuse patient.[facility] HospitalIn the event this information is protected by the Federal Confidentiality of Alcohol and Drug Abuse Patient Records regulations: The Federal rules restrict any use of the information to criminally investigate or prosecute any alcohol or drug abuse patient.[facility] HospitalIn the event this information is protected by the Federal Confidentiality of Alcohol and Drug Abuse Patient Records regulations: The Federal rules restrict any use of the information to criminally investigate or prosecute any alcohol or drug abuse patient.[facility] HospitalIn the event this information is protected by the Federal Confidentiality of Alcohol and Drug Abuse Patient Records regulations: The Federal rules restrict any use of the information to criminally investigate or prosecute any alcohol or drug abuse patient.[facility] HospitalIn the event this information is protected by the Federal Confidentiality of Alcohol and Drug Abuse Patient Records regulations: The Federal rules restrict any use of the information to criminally investigate or prosecute any alcohol or drug abuse patient.[facility] HospitalIn the event this information is protected by the Federal Confidentiality of Alcohol and Drug Abuse Patient Records regulations: The Federal rules restrict any use of the information to criminally investigate or prosecute any alcohol or drug abuse patient.[facility] HospitalIn the event this information is protected by the Federal Confidentiality of Alcohol and Drug Abuse Patient Records regulations: The Federal rules restrict any use of the information to criminally investigate or prosecute any alcohol or drug abuse patient.[facility] HospitalIn the event this information is protected by the Federal Confidentiality of Alcohol and Drug Abuse Patient Records regulations: The Federal rules restrict any use of the information to criminally investigate or prosecute any alcohol or drug abuse patient.[facility] HospitalIn the event this information is protected by the Federal Confidentiality of Alcohol and Drug Abuse Patient Records regulations: The Federal rules restrict any use of the information to criminally investigate or prosecute any alcohol or drug abuse patient.[facility] HospitalIn the event this information is protected by the Federal Confidentiality of Alcohol and Drug Abuse Patient Records regulations: The Federal rules restrict any use of the information to criminally investigate or prosecute any alcohol or drug abuse patient.[facility] HospitalIn the event this information is protected by the Federal Confidentiality of Alcohol and Drug Abuse Patient Records regulations: The Federal rules restrict any use of the information to criminally investigate or prosecute any alcohol or drug abuse patient.[facility] HospitalIn the event this information is protected by the Federal Confidentiality of Alcohol and Drug Abuse Patient Records regulations: The Federal rules restrict any use of the information to criminally investigate or prosecute any alcohol or drug abuse patient.[facility] HospitalIn the event this information is protected by the Federal Confidentiality of Alcohol and Drug Abuse Patient Records regulations: The Federal rules restrict any use of the information to criminally investigate or prosecute any alcohol or drug abuse patient.[facility]In the event this information is protected by the Federal Confidentiality of Alcohol and Drug Abuse Patient Records regulations: The Federal rules restrict any use of the information to criminally investigate or prosecute any alcohol or drug abuse patient.[facility] HospitalIn the event this information is protected by the Federal Confidentiality of Alcohol and Drug Abuse Patient Records regulations: The Federal rules restrict any use of the information to criminally investigate or prosecute any alcohol or drug abuse patient.[facility] HospitalIn the event this information is protected by the Federal Confidentiality of Alcohol and Drug Abuse Patient Records regulations: The Federal rules restrict any use of the information to criminally investigate or prosecute any alcohol or drug abuse patient.[facility] HospitalIn the event this information is protected by the Federal Confidentiality of Alcohol and Drug Abuse Patient Records regulations: The Federal rules restrict any use of the information to criminally investigate or prosecute any alcohol or drug abuse patient.[facility] HospitalIn the event this information is protected by the Federal Confidentiality of Alcohol and Drug Abuse Patient Records regulations: The Federal rules restrict any use of the information to criminally investigate or prosecute any alcohol or drug abuse patient.[facility] HospitalIn the event this information is protected by the Federal Confidentiality of Alcohol and Drug Abuse Patient Records regulations: The Federal rules restrict any use of the information to criminally investigate or prosecute any alcohol or drug abuse patient.[facility] HospitalIn the event this information is protected by the Federal Confidentiality of Alcohol and Drug Abuse Patient Records regulations: The Federal rules restrict any use of the information to criminally investigate or prosecute any alcohol or drug abuse patient.[facility] HospitalIn the event this information is protected by the Federal Confidentiality of Alcohol and Drug Abuse Patient Records regulations: The Federal rules restrict any use of the information to criminally investigate or prosecute any alcohol or drug abuse patient.[facility] HospitalIn the event this information is protected by the Federal Confidentiality of Alcohol and Drug Abuse Patient Records regulations: The Federal rules restrict any use of the information to criminally investigate or prosecute any alcohol or drug abuse patient.[facility] HospitalIn the event this information is protected by the Federal Confidentiality of Alcohol and Drug Abuse Patient Records regulations: The Federal rules restrict any use of the information to criminally investigate or prosecute any alcohol or drug abuse patient.[facility] HospitalIn the event this information is protected by the Federal Confidentiality of Alcohol and Drug Abuse Patient Records regulations: The Federal rules restrict any use of the information to criminally investigate or prosecute any alcohol or drug abuse patient.[facility] HospitalIn the event this information is protected by the Federal Confidentiality of Alcohol and Drug Abuse Patient Records regulations: The Federal rules restrict any use of the information to criminally investigate or prosecute any alcohol or drug abuse patient.[facility] HospitalIn the event this information is protected by the Federal Confidentiality of Alcohol and Drug Abuse Patient Records regulations: The Federal rules restrict any use of the information to criminally investigate or prosecute any alcohol or drug abuse patient.[facility] HospitalIn the event this information is protected by the Federal Confidentiality of Alcohol and Drug Abuse Patient Records regulations: The Federal rules restrict any use of the information to criminally investigate or prosecute any alcohol or drug abuse patient.[facility] HospitalIn the event this information is protected by the Federal Confidentiality of Alcohol and Drug Abuse Patient Records regulations: The Federal rules restrict any use of the information to criminally investigate or prosecute any alcohol or drug abuse patient.[facility] HospitalIn the event this information is protected by the Federal Confidentiality of Alcohol and Drug Abuse Patient Records regulations: The Federal rules restrict any use of the information to criminally investigate or prosecute any alcohol or drug abuse patient.[facility] HospitalIn the event this information is protected by the Federal Confidentiality of Alcohol and Drug Abuse Patient Records regulations: The Federal rules restrict any use of the information to criminally investigate or prosecute any alcohol or drug abuse patient.[facility] HospitalIn the event this information is protected by the Federal Confidentiality of Alcohol and Drug Abuse Patient Records regulations: The Federal rules restrict any use of the information to criminally investigate or prosecute any alcohol or drug abuse patient.[facility] HospitalIn the event this information is protected by the Federal Confidentiality of Alcohol and Drug Abuse Patient Records regulations: The Federal rules restrict any use of the information to criminally investigate or prosecute any alcohol or drug abuse patient.[facility] HospitalIn the event this information is protected by the Federal Confidentiality of Alcohol and Drug Abuse Patient Records regulations: The Federal rules restrict any use of the information to criminally investigate or prosecute any alcohol or drug abuse patient.[facility] HospitalIn the event this information is protected by the Federal Confidentiality of Alcohol and Drug Abuse Patient Records regulations: The Federal rules restrict any use of the information to criminally investigate or prosecute any alcohol or drug abuse patient.[facility] HospitalIn the event this information is protected by the Federal Confidentiality of Alcohol and Drug Abuse Patient Records regulations: The Federal rules restrict any use of the information to criminally investigate or prosecute any alcohol or drug abuse patient.[facility] HospitalIn the event this information is protected by the Federal Confidentiality of Alcohol and Drug Abuse Patient Records regulations: The Federal rules restrict any use of the information to criminally investigate or prosecute any alcohol or drug abuse patient.[facility] HospitalIn the event this information is protected by the Federal Confidentiality of Alcohol and Drug Abuse Patient Records regulations: The Federal rules restrict any use of the information to criminally investigate or prosecute any alcohol or drug abuse patient.[facility] [facility] HospitalIn the event this information is protected by the Federal Confidentiality of Alcohol and Drug Abuse Patient Records regulations: The Federal rules restrict any use of the information to criminally investigate or prosecute any alcohol or drug abuse patient.[facility] HospitalIn the event this information is protected by the Federal Confidentiality of Alcohol and Drug Abuse Patient Records regulations: The Federal rules restrict any use of the information to criminally investigate or prosecute any alcohol or drug abuse patient.[facility] HospitalIn the event this information is protected by the Federal Confidentiality of Alcohol and Drug Abuse Patient Records regulations: The Federal rules restrict any use of the information to criminally investigate or prosecute any alcohol or drug abuse patient.[facility] HospitalIn the event this information is protected by the Federal Confidentiality of Alcohol and Drug Abuse Patient Records regulations: The Federal rules restrict any use of the information to criminally investigate or prosecute any alcohol or drug abuse patient.[facility] HospitalIn the event this information is protected by the Federal Confidentiality of Alcohol and Drug Abuse Patient Records regulations: The Federal rules restrict any use of the information to criminally investigate or prosecute any alcohol or drug abuse patient.[facility] HospitalIn the event this information is protected by the Federal Confidentiality of Alcohol and Drug Abuse Patient Records regulations: The Federal rules restrict any use of the information to criminally investigate or prosecute any alcohol or drug abuse patient.[facility] HospitalIn the event this information is protected by the Federal Confidentiality of Alcohol and Drug Abuse Patient Records regulations: The Federal rules restrict any use of the information to criminally investigate or prosecute any alcohol or drug abuse patient.[facility] HospitalIn the event this information is protected by the Federal Confidentiality of Alcohol and Drug Abuse Patient Records regulations: The Federal rules restrict any use of the information to criminally investigate or prosecute any alcohol or drug abuse patient.[facility] HospitalIn the event this information is protected by the Federal Confidentiality of Alcohol and Drug Abuse Patient Records regulations: The Federal rules restrict any use of the information to criminally investigate or prosecute any alcohol or drug abuse patient.[facility] HospitalIn the event this information is protected by the Federal Confidentiality of Alcohol and Drug Abuse Patient Records regulations: The Federal rules restrict any use of the information to criminally investigate or prosecute any alcohol or drug abuse patient.[facility] HospitalIn the event this information is protected by the Federal Confidentiality of Alcohol and Drug Abuse Patient Records regulations: The Federal rules restrict any use of the information to criminally investigate or prosecute any alcohol or drug abuse patient.[facility] HospitalIn the event this information is protected by the Federal Confidentiality of Alcohol and Drug Abuse Patient Records regulations: The Federal rules restrict any use of the information to criminally investigate or prosecute any alcohol or drug abuse patient.[facility] HospitalIn the event this information is protected by the Federal Confidentiality of Alcohol and Drug Abuse Patient Records regulations: The Federal rules restrict any use of the information to criminally investigate or prosecute any alcohol or drug abuse patient.[facility] HospitalIn the event this information is protected by the Federal Confidentiality of Alcohol and Drug Abuse Patient Records regulations: The Federal rules restrict any use of the information to criminally investigate or prosecute any alcohol or drug abuse patient.[facility] HospitalIn the event this information is protected by the Federal Confidentiality of Alcohol and Drug Abuse Patient Records regulations: The Federal rules restrict any use of the information to criminally investigate or prosecute any alcohol or drug abuse patient.[facility] HospitalIn the event this information is protected by the Federal Confidentiality of Alcohol and Drug Abuse Patient Records regulations: The Federal rules restrict any use of the information to criminally investigate or prosecute any alcohol or drug abuse patient.[facility] HospitalIn the event this information is protected by the Federal Confidentiality of Alcohol and Drug Abuse Patient Records regulations: The Federal rules restrict any use of the information to criminally investigate or prosecute any alcohol or drug abuse patient.[facility] HospitalIn the event this information is protected by the Federal Confidentiality of Alcohol and Drug Abuse Patient Records regulations: The Federal rules restrict any use of the information to criminally investigate or prosecute any alcohol or drug abuse patient.[facility] HospitalIn the event this information is protected by the Federal Confidentiality of Alcohol and Drug Abuse Patient Records regulations: The Federal rules restrict any use of the information to criminally investigate or prosecute any alcohol or drug abuse patient.[facility] HospitalIn the event this information is protected by the Federal Confidentiality of Alcohol and Drug Abuse Patient Records regulations: The Federal rules restrict any use of the information to criminally investigate or prosecute any alcohol or drug abuse patient.[facility] HospitalIn the event this information is protected by the Federal Confidentiality of Alcohol and Drug Abuse Patient Records regulations: The Federal rules restrict any use of the information to criminally investigate or prosecute any alcohol or drug abuse patient.[facility] HospitalIn the event this information is protected by the Federal Confidentiality of Alcohol and Drug Abuse Patient Records regulations: The Federal rules restrict any use of the information to criminally investigate or prosecute any alcohol or drug abuse patient.[facility] HospitalIn the event this information is protected by the Federal Confidentiality of Alcohol and Drug Abuse Patient Records regulations: The Federal rules restrict any use of the information to criminally investigate or prosecute any alcohol or drug abuse patient.[facility] HospitalIn the event this information is protected by the Federal Confidentiality of Alcohol and Drug Abuse Patient Records regulations: The Federal rules restrict any use of the information to criminally investigate or prosecute any alcohol or drug abuse patient.[facility] HospitalIn the event this information is protected by the Federal Confidentiality of Alcohol and Drug Abuse Patient Records regulations: The Federal rules restrict any use of the information to criminally investigate or prosecute any alcohol or drug abuse patient.[facility] HospitalIn the event this information is protected by the Federal Confidentiality of Alcohol and Drug Abuse Patient Records regulations: The Federal rules restrict any use of the information to criminally investigate or prosecute any alcohol or drug abuse patient.[facility] ClinicIn the event this information is protected by the Federal Confidentiality of Alcohol and Drug Abuse Patient Records regulations: The Federal rules restrict any use of the information to criminally investigate or prosecute any alcohol or drug abuse patient.[facility] HospitalIn the event this information is protected by the Federal Confidentiality of Alcohol and Drug Abuse Patient Records regulations: The Federal rules restrict any use of the information to criminally investigate or prosecute any alcohol or drug abuse patient.[facility] HospitalIn the event this information is protected by the Federal Confidentiality of Alcohol and Drug Abuse Patient Records regulations: The Federal rules restrict any use of the information to criminally investigate or prosecute any alcohol or drug abuse patient.[facility] HospitalIn the event this information is protected by the Federal Confidentiality of Alcohol and Drug Abuse Patient Records regulations: The Federal rules restrict any use of the information to criminally investigate or prosecute any alcohol or drug abuse patient.[facility] HospitalIn the event this information is protected by the Federal Confidentiality of Alcohol and Drug Abuse Patient Records regulations: The Federal rules restrict any use of the information to criminally investigate or prosecute any alcohol or drug abuse patient.[facility] HospitalIn the event this information is protected by the Federal Confidentiality of Alcohol and Drug Abuse Patient Records regulations: The Federal rules restrict any use of the information to criminally investigate or prosecute any alcohol or drug abuse patient.[facility] HospitalIn the event this information is protected by the Federal Confidentiality of Alcohol and Drug Abuse Patient Records regulations: The Federal rules restrict any use of the information to criminally investigate or prosecute any alcohol or drug abuse patient.[facility] HospitalIn the event this information is protected by the Federal Confidentiality of Alcohol and Drug Abuse Patient Records regulations: The Federal rules restrict any use of the information to criminally investigate or prosecute any alcohol or drug abuse patient.[facility] HospitalIn the event this information is protected by the Federal Confidentiality of Alcohol and Drug Abuse Patient Records regulations: The Federal rules restrict any use of the information to criminally investigate or prosecute any alcohol or drug abuse patient.[facility] HospitalIn the event this information is protected by the Federal Confidentiality of Alcohol and Drug Abuse Patient Records regulations: The Federal rules restrict any use of the information to criminally investigate or prosecute any alcohol or drug abuse patient.[facility] HospitalIn the event this information is protected by the Federal Confidentiality of Alcohol and Drug Abuse Patient Records regulations: The Federal rules restrict any use of the information to criminally investigate or prosecute any alcohol or drug abuse patient.[facility] HospitalIn the event this information is protected by the Federal Confidentiality of Alcohol and Drug Abuse Patient Records regulations: The Federal rules restrict any use of the information to criminally investigate or prosecute any alcohol or drug abuse patient.[facility] HospitalIn the event this information is protected by the Federal Confidentiality of Alcohol and Drug Abuse Patient Records regulations: The Federal rules restrict any use of the information to criminally investigate or prosecute any alcohol or drug abuse patient.[facility] HospitalIn the event this information is protected by the Federal Confidentiality of Alcohol and Drug Abuse Patient Records regulations: The Federal rules restrict any use of the information to criminally investigate or prosecute any alcohol or drug abuse patient.[facility] HospitalIn the event this information is protected by the Federal Confidentiality of Alcohol and Drug Abuse Patient Records regulations: The Federal rules restrict any use of the information to criminally investigate or prosecute any alcohol or drug abuse patient.[facility] HospitalIn the event this information is protected by the Federal Confidentiality of Alcohol and Drug Abuse Patient Records regulations: The Federal rules restrict any use of the information to criminally investigate or prosecute any alcohol or drug abuse patient.[facility] HospitalIn the event this information is protected by the Federal Confidentiality of Alcohol and Drug Abuse Patient Records regulations: The Federal rules restrict any use of the information to criminally investigate or prosecute any alcohol or drug abuse patient.[facility] HospitalIn the event this information is protected by the Federal Confidentiality of Alcohol and Drug Abuse Patient Records regulations: The Federal rules restrict any use of the information to criminally investigate or prosecute any alcohol or drug abuse patient.[facility] HospitalIn the event this information is protected by the Federal Confidentiality of Alcohol and Drug Abuse Patient Records regulations: The Federal rules restrict any use of the information to criminally investigate or prosecute any alcohol or drug abuse patient.[facility] HospitalIn the event this information is protected by the Federal Confidentiality of Alcohol and Drug Abuse Patient Records regulations: The Federal rules restrict any use of the information to criminally investigate or prosecute any alcohol or drug abuse patient.[facility] HospitalIn the event this information is protected by the Federal Confidentiality of Alcohol and Drug Abuse Patient Records regulations: The Federal rules restrict any use of the information to criminally investigate or prosecute any alcohol or drug abuse patient.[facility] HospitalIn the event this information is protected by the Federal Confidentiality of Alcohol and Drug Abuse Patient Records regulations: The Federal rules restrict any use of the information to criminally investigate or prosecute any alcohol or drug abuse patient.[facility] HospitalIn the event this information is protected by the Federal Confidentiality of Alcohol and Drug Abuse Patient Records regulations: The Federal rules restrict any use of the information to criminally investigate or prosecute any alcohol or drug abuse patient.[facility] HospitalIn the event this information is protected by the Federal Confidentiality of Alcohol and Drug Abuse Patient Records regulations: The Federal rules restrict any use of the information to criminally investigate or prosecute any alcohol or drug abuse patient.[facility] HospitalIn the event this information is protected by the Federal Confidentiality of Alcohol and Drug Abuse Patient Records regulations: The Federal rules restrict any use of the information to criminally investigate or prosecute any alcohol or drug abuse patient.[facility] HospitalIn the event this information is protected by the Federal Confidentiality of Alcohol and Drug Abuse Patient Records regulations: The Federal rules restrict any use of the information to criminally investigate or prosecute any alcohol or drug abuse patient.[facility] HospitalIn the event this information is protected by the Federal Confidentiality of Alcohol and Drug Abuse Patient Records regulations: The Federal rules restrict any use of the information to criminally investigate or prosecute any alcohol or drug abuse patient.[facility] HospitalIn the event this information is protected by the Federal Confidentiality of Alcohol and Drug Abuse Patient Records regulations: The Federal rules restrict any use of the information to criminally investigate or prosecute any alcohol or drug abuse patient.[facility] HospitalIn the event this information is protected by the Federal Confidentiality of Alcohol and Drug Abuse Patient Records regulations: The Federal rules restrict any use of the information to criminally investigate or prosecute any alcohol or drug abuse patient.[facility] HospitalIn the event this information is protected by the Federal Confidentiality of Alcohol and Drug Abuse Patient Records regulations: The Federal rules restrict any use of the information to criminally investigate or prosecute any alcohol or drug abuse patient.[facility] HospitalIn the event this information is protected by the Federal Confidentiality of Alcohol and Drug Abuse Patient Records regulations: The Federal rules restrict any use of the information to criminally investigate or prosecute any alcohol or drug abuse patient.[facility] HospitalIn the event this information is protected by the Federal Confidentiality of Alcohol and Drug Abuse Patient Records regulations: The Federal rules restrict any use of the information to criminally investigate or prosecute any alcohol or drug abuse patient.[facility] HospitalIn the event this information is protected by the Federal Confidentiality of Alcohol and Drug Abuse Patient Records regulations: The Federal rules restrict any use of the information to criminally investigate or prosecute any alcohol or drug abuse patient.[facility] HospitalIn the event this information is protected by the Federal Confidentiality of Alcohol and Drug Abuse Patient Records regulations: The Federal rules restrict any use of the information to criminally investigate or prosecute any alcohol or drug abuse patient.[facility] HospitalIn the event this information is protected by the Federal Confidentiality of Alcohol and Drug Abuse Patient Records regulations: The Federal rules restrict any use of the information to criminally investigate or prosecute any alcohol or drug abuse patient.[facility] HospitalIn the event this information is protected by the Federal Confidentiality of Alcohol and Drug Abuse Patient Records regulations: The Federal rules restrict any use of the information to criminally investigate or prosecute any alcohol or drug abuse patient.[facility] HospitalIn the event this information is protected by the Federal Confidentiality of Alcohol and Drug Abuse Patient Records regulations: The Federal rules restrict any use of the information to criminally investigate or prosecute any alcohol or drug abuse patient.[facility] HospitalIn the event this information is protected by the Federal Confidentiality of Alcohol and Drug Abuse Patient Records regulations: The Federal rules restrict any use of the information to criminally investigate or prosecute any alcohol or drug abuse patient.[facility] HospitalIn the event this information is protected by the Federal Confidentiality of Alcohol and Drug Abuse Patient Records regulations: The Federal rules restrict any use of the information to criminally investigate or prosecute any alcohol or drug abuse patient.[facility] HospitalIn the event this information is protected by the Federal Confidentiality of Alcohol and Drug Abuse Patient Records regulations: The Federal rules restrict any use of the information to criminally investigate or prosecute any alcohol or drug abuse patient.[facility] HospitalIn the event this information is protected by the Federal Confidentiality of Alcohol and Drug Abuse Patient Records regulations: The Federal rules restrict any use of the information to criminally investigate or prosecute any alcohol or drug abuse patient.[facility] HospitalIn the event this information is protected by the Federal Confidentiality of Alcohol and Drug Abuse Patient Records regulations: The Federal rules restrict any use of the information to criminally investigate or prosecute any alcohol or drug abuse patient.[facility] Reason for Visit (unrecogniz ed section and content) Reason Comments Established Patient Pain Specialty Diagnoses / Procedures Referred By Opal t Referred To Contact Podiatry Diagnoses Pain of left heel Procedures CONSULT TO PODIATRY OFFICE/OUTPATIENT NEW HIGH MDM 60 MINUTES Danita Meraz PA-C [address] [place] [address] Referral ID Status Reason Start Date Expiration Date V isits Requested Visits Authorized [id number] Closed PCP Requested Referral 03/04/2024 03/04/2025 1 1 Reason Comments PT Discharge Specialty Diagnoses / Procedures Referred By Opal t Referred To Contact [facility] Diagnoses Anterior dislocation of right shoulder, subsequent encounter 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, subsequent encounter Procedures CONSULT TO PHYSICAL THERAPY PHYSICAL THERAPY EVALUATION HIGH COMPLEX 45 MINS Robert Combs MD [address] [place] [address] [facility] [address] [place] [address] Referral ID Status Reason Start Date Expiration Date Visits Requested Visits Authorized [id number] Authorized PCP Requested Referral Auto-Generate d Referral 10/27/2022 10/27/2023 99 99 Reason Onset Date Comments Refill Request 01/14/2022 Reason Onset Date Comments Refill Request 01/27/2022 Reason Comments Medicare Wellness Exam Reason Comments Derm Problem patient has lump rig ht elbow Reason Comments Consult lump on right forear m Specialty Diagnoses / Procedures Referred By Opal galloway Referred To Contact General Surgery Diagnoses Skin lump of arm, right Procedures CONSULT TO GENERAL SURGERY OFFICE/OUTPATIENT NEW HIGH MDM 60-74 MINUTES Danita Meraz PA-C [address] [place] [address] Referral ID Status Reason Start Date Expiration Date V isits Requested Visits Authorized [id number] Closed PCP Requested Referral 04/02/2022 04/02/2023 1 1 Reason Onset Date Comments Refill Request 06/04/2022 Reason Onset Date Comments Refill Request 06/12/2022 Reason Comments Refill Request Reason Comments Referral Request Reason Comments Patient Question Reason Onset Date Comments Immunizations 08/05/2022 Flu vaccination Reason Onset Date Comments Refill Request 08/27/2022 Reason Comments New Dislocation Reason Comments F/U 6 months Reason Comments Physical Therapy Reason Comments Established Patient Pain Dislocation Follow Up Reason Comments New thick nails Reason Onset Date Comments Refill Request 01/08/2023 Reason Onset Date Comments Refill Request 01/30/2023 Reason Onset Date Comments Refill Request 02/02/2023 Reason Comments Consult Cardiology Reason Comments ER F/U Reason Onset Date Comments Refill Request 04/10/2023 Reason Comments Patient Update Reason Onset Date Comments Refill Request 04/30/2023 Reason Comments Incontinence Just came on over la st week. Multiple x. Reason Comments Results Reason Comments Orders Reason Onset Date Comments Refill Request 05/22/2023 Reason Comments Mental Status Changes Reason Comments ER F/U [facility] ER f/u 06/17/23 d x: COVID pneumonia Reason Comments Follow Up Reason Onset Date Comments Refill Request 09/03/2023 Reason Onset Date Comments Refill Request 10/31/2023 Reason Comments Patient Update Results Reason Comments New Patient Pt presented with wi fe reported Hx dementia. Specialty Diagnoses / Procedures Referred By Contac t Referred To Contact Neurology Diagnoses History of CVA (cerebrovascular accident) Dementia without behavioral disturbance (HCC) NAIN (obstructive sleep apnea) Delusions (HCC) Procedures CONSULT TO NEUROLOGY OFFICE/OUTPATIENT [facility] [place] 60 MINUTES Adama Mendoza MD [address] [place] [address] Referral ID Status Reason Start Date Expiration Date V isits Requested Visits Authorized [id number] Closed PCP Requested Referral 10/12/2023 10/11/2024 1 1 Reason Comments Spirometry Specialty Diagnoses / Procedures Referred By Contac t Referred [facility] Diagnoses Centrilobular emphysema (HCC) Procedures SPIROMETRY WITH DILATOR IF OBSTRUCTED BRNCDILAT RSPSE SPMTRY PRE&POST-BRNCDILAT ADMN Stephany Suarez MD [address] [place] [address] [facility] [address] [place] [address] Referral ID Status Reason Start Date Expiration Date V isits Requested Visits Authorized [id number] Closed Auto-Generate d Referral 12/08/2023 01/06/2025 1 1 Specialty Diagnoses / Procedures Referred By Contac t Referred To [facility] Diagnoses Centrilobular emphysema (HCC) Procedures LUNG DIFFUSION CAPACITY (DLCO) DIFFUSING CAPACITY Stephany Suarez MD [address] [place] [address] [address] Referral ID Status Reason Start Date Expiration Date V isits Requested Visits Authorized [id number] Closed Auto-Generate d Referral 12/08/2023 01/06/2025 1 1 Specialty Diagnoses / Procedures Referred By Contac t Referred To Contact [facility] Diagnoses Centrilobular emphysema (HCC) Procedures LUNG VOLUMES Stephany Suarez MD [address] [place] [address] [address] Referral ID Status Reason Start Date Expiration Date V isits Requested Visits Authorized [id number] Closed Auto-Generate d Referral 12/08/2023 01/06/2025 1 1 Specialty Diagnoses / Procedures Referred By Contac t Referred To Contact [facility] Diagnoses Centrilobular emphysema (HCC) Procedures OXIMETRY WITH AMBULATION NONINVASIVE EAR/PULSE OXIMETRY MULTIPLE DETER Stephany Suarez MD [address] [place] [address] [address] Referral ID Status Reason Start Date Expiration Date V isits Requested Visits Authorized [id number] Closed Auto-Generate d Referral 12/08/2023 01/06/2025 1 1 Reason Comments Results PFT Specialty Diagnoses / Procedures Referred By Contac t Referred To Contact MR IMAGING Diagnoses Transient cerebral ischemia, unspecified type Procedures MRI BRAIN WO IVCON MRI BRAIN BRAIN STEM W/O CONTRAST MATERIAL Shaye Kitchen Jr., MD [address] [address] [place] [address] Referral ID Status Reason Start Date Expiration Date V isits Requested Visits Authorized [id number] Closed Auto-Generate d Referral 11/20/2023 12/19/2024 1 1 Specialty Diagnoses / Procedures Referred By Contac t Referred To Contact MR IMAGING Diagnoses Transient cerebral ischemia, unspecified type Procedures MRA BRAIN WO IVCON MRA, HEAD W/O CONTRAST Shaye Kitchen Jr., MD [address] [facility] [address] [place] [address] [place] [address] Referral ID Status Reason Start Date Expiration Date V isits Requested Visits Authorized [id number] Closed Auto-Generate d Referral 11/20/2023 12/19/2024 1 1 Specialty Diagnoses / Procedures Referred By Contac t Referred To Contact MR IMAGING Diagnoses Transient cerebral ischemia, unspecified type Procedures MRA CAROTID WO IVCON MRA, NECK; W/O CONTRAST Shaye Kitchen Jr., MD [address] [facility] [address] [place] [address] [place] [address] Referral ID Status Reason Start Date Expiration Date V isits Requested Visits Authorized [id number] Closed Auto-Generate d Referral 11/20/2023 12/19/2024 1 1 Reason Comments Forms Reason Comments Consult results Reason Onset Date Comments Refill Request 01/25/2024 Reason Comments Results Reason Comments Pain Left heel pain X cou ple Reason Comments Follow Up Follow up Reason Onset Date Comments Refill Request 03/28/2024 Reason Comments Consult [facility] Reason Comments Established Patient 3 month follow up Reason Comments ER Discharge Summary Reason Comments Information Reason Comments Acute Visit right arm pain Reason Comments Hospital F/U Reason Comments Follow Up 1 week follow up for cellulitis of right elbow Reason Onset Date Comments Refill Request 06/22/2024 Reason Comments Same Day Appointment left middle finger- swollen, possible gout Reason Onset Date Comments Refill Request 07/07/2024 Reason Comments Derm Problem Patient had bump rig ht shoulder blade Reason Onset Date Comments Refill Request 07/27/2024 Reason Comments Radiology US Specialty Diagnoses / Procedures Referred By Contac t Referred To Contact US IMAGING Diagnoses Mass of subcutaneous tissue of back Procedures US CHEST WALL/SOFT TISSUE US CHEST REAL TIME W/IMAGE DOCUMENTATION Danita Meraz PA-C [address] [place] [address] [place] [address] Referral ID Status Reason Start Date Expiration Date V isits Requested Visits Authorized [id number] Closed Auto-Generate d Referral 07/21/2024 08/20/2025 1 1 Reason Comments Imm/Inj Reason Comments Procedure Ultrasound Guided Ne edle Core Biopsy back mass. Reason Comments Consult Mass of back Specialty Diagnoses / Procedures Referred By Contac t Referred To Contact General Surgery Diagnoses Mass of subcutaneous tissue of back Procedures CONSULT TO GENERAL SURGERY OFFICE/OUTPATIENT NEW HIGH MDM 60 MINUTES Danita Meraz PA-C [address] [place] [address] Referral ID Status Reason Start Date Expiration Date V isits Requested Visits Authorized [id number] Closed PCP Requested Referral 08/01/2024 08/01/2025 1 1 Reason Onset Date Comments Refill Request 09/05/2024 Reason Comments Biopsy results Reason Comments Left Hip Pain Reason Onset Date Comments Refill Request 09/17/2024 Reason Comments Patient Question re: vaccines buttock lesion Reason Comments LESION, SKIN Reason Onset Date Comments Refill Request 09/16/2024 Reason Comments requesting help/recommendations Reason Comments Appointment Reason Comments Nurse Visit EKG Specialty Diagnoses / Procedures Referred By Contac t Referred To [facility] Diagnoses Transient cerebral ischemia, unspecified type Procedures ECG COMPLETE ECG ROUTINE ECG W/LEAST 12 LDS W/I&R Margaret Ardon, MOTEL FRONT DESK ATTENDANT.EMBROIDERY ASSISTANT [address] [place] [address] [facility] [address] [place] [address] Referral ID Status Reason Start Date Expiration Date V isits Requested Visits Authorized [id number] Closed Auto-Generate d Referral 10/14/2024 10/14/2025 1 1 Reason Comments New Patient Evaluation Office visit Reason Comments Radiology CT Reason Comments Home Care Confirmation Call Reason Comments Home Care MD to follow Reason Onset Date Comments Transition Of Care 10/21/2024 TCM initial c all: Discharged 10/21/24 Reason Comments Home Care Reason Comments Home Care PT/OT Delay in servi ce call Reason Onset Date Comments Transition Of Care 10/27/2024 TCM follow up call #1: Discharged 10/20/24 Reason Comments PT Eval PT Discharge Specialty Diagnoses / Procedures Referred By Contac t Referred To Contact [facility] Diagnoses Left hip pain Procedures CONSULT TO PHYSICAL THERAPY PHYSICAL THERAPY EVALUATION HIGH COMPLEX 45 MINS Adama Mendoza MD [address] [place] [address] [facility] [place] [address] Referral ID Status Reason Start Date Expiration Date Visits Requested Visits Authorized [id number] Authorized PCP Requested Referral Auto-Generate d Referral 09/10/2024 09/10/2025 99 99 Reason Comments Home Care cx home PT and OT Reason Onset Date Comments Refill Request 11/03/2024 Reason Onset Date Comments Transition Of Care 11/03/2024 TCM follow-up call #2: Discharged 10/20/2024 Reason Comments Pneumonia Follow up Reason Comments Radio Gen RMP Reason Onset Date Comments Refill Request 11/17/2024 Reason Comments Cough X 1 week Reason Comments Established Patient nail discoloration Reason Comments Ear Problem Right ear hearing lo ss X 5 days Reason Comments Medication Update Reason Onset Date Comments Refill Request 12/05/2024 Reason Comments Established Patient Dementia Reason Onset Date Comments Refill Request 12/14/2024 Reason Onset Date Comments Refill Request 12/19/2024 Reason Onset Date Comments Refill Request 12/28/2024 Reason Comments Fall fall- right hand and shoulder pain Reason Onset Date Comments Refill Request 01/16/2025 Reason Onset Date Comments Refill Request 01/24/2025 Reason Onset Date Comments Refill Request 03/15/2025 Reason Onset Date Comments Refill Request 03/29/2025 Reason Onset Date Comments Refill Request 04/12/2025 Reason Onset Date Comments Results 04/12/2025 Reason Onset Date Comments Results 04/19/2025 Reason Onset Date Comments Refill Request 05/16/2025 Reason Onset Date Comments Refill Request 05/22/2025 Reason Onset Date Comments Population Health Navigation Outreach 06/01/2025 Gayathri/Workbench/ACO Reason Comments Follow Up Nail care Neuropathy nail care Reason Onset Date Comments Refill Request 06/12/2025 Care Teams (unrecognized sec tion and content) Instrument Lens Generator Relationship Specialty Start Date End Date Adama Mendoza MD [address] [place] [address] PCP - General Family Practice 10/31/16 Instrument Lens Generator Relationship Specialty Start Date End Date Adama Mendoza MD [address] [place] [address] PCP - General Family Practice 10/31/16 Instrument Lens Generator Relationship Specialty Start Date End Date Adama Mendoza MD [address] [place] [address], [place] [address] PCP - General Family Practice 10/31/16 Instrument Lens Generator Relationship Specialty Start Date End Date Adama Mendoza MD [address] [place] [address], [place] [address] PCP - General Family Practice 10/31/16 Instrument Lens Generator Relationship Specialty Start Date End Date Adama Mendoza MD [address] [place] [address] [place] [address] PCP - General Family Practice 10/31/16 Instrument Lens Generator Relationship Specialty Start Date End Date Adama Mendoza MD [address] [place] [address] PCP - General Family Practice 10/31/16 Instrument Lens Generator Relationship Specialty Start Date End Date Adama Mendoza MD [address] [place] [address] [place] [address] PCP - General Family Practice 10/31/16 Instrument Lens Generator Relationship Specialty Start Date End Date Adama Mendoza MD [address] [place] [address] [place] [address] PCP - General Family Medicine 10/31/16 Instrument Lens Generator Relationship Specialty Start Date End Date Adama Mendoza MD [address] [place] [address], [place] [address] PCP - General Family Medicine 10/31/16 Instrument Lens Generator Relationship Specialty Start Date End Date Adama Mendoza MD [address] [place] [address] [place] [address] PCP - General Family Medicine 10/31/16 Instrument Lens Generator Relationship Specialty Start Date End Date Adama Mendoza MD [address] [place] [address] PCP - General Family Medicine 10/31/16 Instrument Lens Generator Relationship Specialty Start Date End Date Adama Mendoza MD [address] [place] [address] PCP - General Family Medicine 10/31/16 Instrument Lens Generator Relationship Specialty Start Date End Date Adama Mendoza MD [address] [place] [address] PCP - General Family Medicine 10/31/16 Instrument Lens Generator Relationship Specialty Start Date End Date Adama Mendoza MD [facility] [place] [address] PCP - General Family Medicine 10/31/16 Instrument Lens Generator Relationship Specialty Start Date End Date Adama Mendoza MD [facility] [place] [address] PCP - General Family Medicine 10/31/16 Instrument Lens Generator Relationship Specialty Start Date End Date Adama Mendoza MD [facility] [place] [address] PCP - General Family Medicine 10/31/16 Instrument Lens Generator Relationship Specialty Start Date End Date Adama Mendoza MD [facility] [place] [address] PCP - General Family Medicine 10/31/16 Instrument Lens Generator Relationship Specialty Start Date End Date Adama Mendoza MD [facility] [place] [address] PCP - General Family Medicine 10/31/16 Instrument Lens Generator Relationship Specialty Start Date End Date Adama Mendoza MD [facility] [place] [address] PCP - General Family Medicine 10/31/16 Instrument Lens Generator Relationship Specialty Start Date End Date Adama Mendoza MD [address] [place] [address] PCP - General Family Medicine 10/31/16 Instrument Lens Generator Relationship Specialty Start Date End Date Adama Mendoza MD [address] [place] [address] PCP - General Family Medicine 10/31/16 Instrument Lens Generator Relationship Specialty Start Date End Date Adama Mendoza MD [address] [place] [address] PCP - General Family Medicine 10/31/16 Instrument Lens Generator Relationship Specialty Start Date End Date Adama Mendoza MD [address] [place] [address] PCP - General Family Medicine 10/31/16 Instrument Lens Generator Relationship Specialty Start Date End Date Adama Mendoza MD [address] [place] [address] PCP - General Family Medicine 10/31/16 Instrument Lens Generator Relationship Specialty Start Date End Date Adama Mendoza MD [address] [place] [address] PCP - General Family Medicine 10/31/16 Instrument Lens Generator Relationship Specialty Start Date End Date Adama Mendoza MD [address] [place] [address] PCP - General Family Medicine 10/31/16 Instrument Lens Generator Relationship Specialty Start Date End Date Adama Mendoza MD [address] [place] [address] PCP - General Family Medicine 10/31/16 Instrument Lens Generator Relationship Specialty Start Date End Date Adama Mendoza MD [address] [place], [place] [address] PCP - General Family Medicine 10/31/16 Team Status: Active Member Role Status Dates Dr. Adama Mendoza MD Family Provider Active Dr. Adama Mendoza MD Primary Care Provider Active Team Status: Inactive Member Role Status Dates Dr. Adama Mendoza MD Primary Care Provider Active Harshil Rondon MD Emergency Provider Active Instrument Lens Generator Relationship Specialty Start Date End Date Adama Mendoza MD [address] [place] [address] PCP - General Family Medicine 10/31/16 Instrument Lens Generator Relationship Specialty Start Date End Date Adama Mendoza MD [address] [place] [address] PCP - General Family Medicine 10/31/16 Instrument Lens Generator Relationship Specialty Start Date End Date Adama Mendoza MD [address] [place] [address] PCP - General Family Medicine 10/31/16 Instrument Lens Generator Relationship Specialty Start Date End Date Adama Mendoza MD [address] [place] [address] PCP - General Family Medicine 10/31/16 Team Status: Inactive Member Role Status Dates Dr. Adama Mendoza MD Primary Care Provider Active Harshil Rondon MD Attending Provider, Emergency Provid er Active Team Status: Inactive Member Role Status Dates Dr. Adama Mendoza MD Primary Care Pro vider, Attending Provider, Referring Provider Active Team Status: Inactive Member Role Status Dates Dr. Adama Mendoza MD Primary Care Provider Active Dr. Abelardo Lowe MD Emergency Provider Active Instrument Lens Generator Relationship Specialty Start Date End Date Adama Mendoza MD [address] [place] [address] PCP - General Family Medicine 10/31/16 Instrument Lens Generator Relationship Specialty Start Date End Date Adama Mendoza MD [address] [place] [address] PCP - General Family Medicine 10/31/16 Instrument Lens Generator Relationship Specialty Start Date End Date Adama Mendoza MD [address] [place] [address] PCP - General Family Medicine 10/31/16 Instrument Lens Generator Relationship Specialty Start Date End Date Adama Mendoza MD [address] [place] [address] PCP - General Family Medicine 10/31/16 Instrument Lens Generator Relationship Specialty Start Date End Date Adama Mendoza MD [address] [place] [address] PCP - General Family Medicine 10/31/16 Instrument Lens Generator Relationship Specialty Start Date End Date Adama Mendoza MD [address] [place] [address] PCP - General Family Medicine 10/31/16 Instrument Lens Generator Relationship Specialty Start Date End Date Adama Mendoza MD [address] [place] [address] PCP - General Family Medicine 10/31/16 Instrument Lens Generator Relationship Specialty Start Date End Date Adama Mendoza MD [address] [place] [address] PCP - General Family Medicine 10/31/16 Instrument Lens Generator Relationship Specialty Start Date End Date Adama Mendoza MD [address] [place] [address] PCP - General Family Medicine 10/31/16 Instrument Lens Generator Relationship Specialty Start Date End Date Adama Mendoza MD [address] [place] [address] PCP - General Family Medicine 10/31/16 Instrument Lens Generator Relationship Specialty Start Date End Date Adama Mendoza MD [address] [place] [address] PCP - General Family Medicine 10/31/16 Instrument Lens Generator Relationship Specialty Start Date End Date Adama Mendoza MD [address] [place] [address] PCP - General Family Medicine 10/31/16 Instrument Lens Generator Relationship Specialty Start Date End Date Adama Mendoza MD [address] [place] [address] PCP - General Family Medicine 10/31/16 Instrument Lens Generator Relationship Specialty Start Date End Date Adama Mendoza MD [address] [place] [address] PCP - General Family Medicine 10/31/16 Instrument Lens Generator Relationship Specialty Start Date End Date Adama Mendoza MD [address] [place] [address] PCP - General Family Medicine 10/31/16 Instrument Lens Generator Relationship Specialty Start Date End Date Adama Mendoza MD [address] [place] [address] PCP - General Family Medicine 10/31/16 Instrument Lens Generator Relationship Specialty Start Date End Date Adama Mendoza MD [address] [place] [address] PCP - General Family Medicine 10/31/16 Instrument Lens Generator Relationship Specialty Start Date End Date Adama Mendoza MD [address] [place] [address] PCP - General Family Medicine 10/31/16 Instrument Lens Generator Relationship Specialty Start Date End Date Adama Mendoza MD [address] [place] [address] PCP - General Family Medicine 10/31/16 Instrument Lens Generator Relationship Specialty Start Date End Date Adama Mendoza MD [address] [place] [address] PCP - General Family Medicine 10/31/16 Instrument Lens Generator Relationship Specialty Start Date End Date Adama Mendoza MD [address] [place] [address] PCP - General Family Medicine 10/31/16 Instrument Lens Generator Relationship Specialty Start Date End Date Adama Mendoza MD [address] [place] [address] PCP - General Family Medicine 10/31/16 Instrument Lens Generator Relationship Specialty Start Date End Date Adama Mendoza MD [address] [place] [address] PCP - General Family Medicine 10/31/16 Claude Cardenas APRN.CNP [address] [place] [address] Director Zone Family Medicine 09/10/24 Danita Meraz PA-C [address] [place] [address] Director Zone Family Medicine 09/10/24 Instrument Lens Generator Relationship Specialty Start Date End Date Adama Mendoza MD [address] [place] [address] PCP - General Family Medicine 10/31/16 Claude Cardenas APRN.EMBROIDERY ASSISTANT [address] [place] [address] Director Zone Family Medicine 09/10/24 Danita Meraz PA-C [address] [place] [address] [facility] Instrument Lens Generator Relationship Specialty Start Date End Date Adama Mendoza MD [address] [place] [address] PCP - General Family Medicine 10/31/16 Claude Cardenas APRN.EMBROIDERY ASSISTANT [address] [place] [address] Director Zone Family Medicine 09/10/24 Danita Meraz PA-C [address] [place] [address] Director Zone Family Medicine 09/10/24 Instrument Lens Generator Relationship Specialty Start Date End Date Adama Mendoza MD [address] [place] [address] PCP - General Family Medicine 10/31/16 Claude Cardenas APRN.EMBROIDERY ASSISTANT [address] [place] [address] Director Zone Family Medicine 09/10/24 Danita Meraz PA-C [address] [place] [address] Director Zone Family Medicine 09/10/24 Instrument Lens Generator Relationship Specialty Start Date End Date Adama Mendoza MD [address] [place] [address] PCP - General Family Medicine 10/31/16 Claude Cardenas APRN.EMBROIDERY ASSISTANT [address] [place] [address] Director Zone Family Medicine 09/10/24 Danita Meraz PA-C [address] [place] [address] Director Zone Family Medicine 09/10/24 Instrument Lens Generator Relationship Specialty Start Date End Date Adama Mendoza MD [address] [place] [address] PCP - General Family Medicine 10/31/16 Claude Cardenas APRN.EMBROIDERY ASSISTANT [address] [place] [address] Director Zone Family Medicine 09/10/24 Danita Meraz PA-C [address] [place] [address] Director Zone Family Medicine 09/10/24 Instrument Lens Generator Relationship Specialty Start Date End Date Adama Mendoza MD [address] [place] [address] PCP - General Family Medicine 10/31/16 Claude Cardenas, MIO.EMBROIDERY ASSISTANT [address] [place] [address] Director Zone Family Medicine 09/10/24 Danita Meraz PA-C [address] [place] [address] Director Zone Family Medicine 09/10/24 Instrument Lens Generator Relationship Specialty Start Date End Date Adama Mendoza MD [address] [place] [address] PCP - General Family Medicine 10/31/16 Claude Cardenas, MIO.EMBROIDERY ASSISTANT [address] [place] [address] Director Zone Family Medicine 09/10/24 Danita Meraz PA-C [address] [place] [address] Director Zone Family Medicine 09/10/24 Instrument Lens Generator Relationship Specialty Start Date End Date Adama Mendoza MD [address] [place] [address] PCP - General Family Medicine 10/31/16 Claude Cardenas, MOTEL FRONT DESK ATTENDANT.EMBROIDERY ASSISTANT [address] [place] [address] Director Zone Family Medicine 09/10/24 Danita Meraz PA-C [address] [place] [address] Director Zone Family Medicine 09/10/24 Instrument Lens Generator Relationship Specialty Start Date End Date Adama Mendoza MD [address] [place] [address] PCP - General Family Medicine 10/31/16 Claude Cardenas APRN.EMBROIDERY ASSISTANT [address] [place] [address] Director Zone Family Medicine 09/10/24 Danita Meraz PA-C [address] [place] [address] Director Zone Family Medicine 09/10/24 Instrument Lens Generator Relationship Specialty Start Date End Date Adama Mendoza MD [address] [place] [address] PCP - General Family Medicine 10/31/16 Claude Cardenas APRN.EMBROIDERY ASSISTANT [address] [place] [address] Director Zone Family Medicine 09/10/24 Danita Meraz PA-C [address] [place] [address] Director Zone Family [facility] 09/10/24 Soto Valderrama MD [address] [place] [address] [phone] Referring Internal Medicine 10/20/24 Adama Mendoza MD [address] [place] [address] Home Care Provider Family Medicine 10/20/24 Krishna Mackey, RN [address] [place], [place] [phone] Pharmacist Aide Post Acute Care 10/20/24 Instrument Lens Generator Relationship Specialty Start Date End Date Adama Mendoza MD [address] [place] [address] PCP - General Family Medicine 10/31/16 Claude Cardenas APRN.EMBROIDERY ASSISTANT [address] [place] [address] Director Zone Family Medicine 09/10/24 Danita Meraz PA-C [address] [place] [address] Director Zone Family Medicine 09/10/24 Soto Valderrama MD [address] [place] [address] Referring Internal Medicine 10/20/24 Adama Mendoza MD [address] [place] [address] Home Care Provider Family Medicine 10/20/24 Krishna Mackey, RN [address] [place] [address] Pharmacist Aide Post Acute Care 10/20/24 Instrument Lens Generator Relationship Specialty Start Date End Date Adama Mendoza MD [address] [place] [address] PCP - General Family Medicine 10/31/16 Claude Cardenas APRN.EMBROIDERY ASSISTANT [address] [place] [address] Director Zone Family Medicine 09/10/24 Danita Meraz PA-C [address] [place] [address] Director Zone Family Medicine 09/10/24 Soto Valderrama MD [address] [place], [place] [phone] Referring Internal Medicine 10/20/24 Adama Mendoza MD [address] [place], [place] 061661 Home Care Provider Family Medicine 10/20/24 Krishna Mackey, VAN [address] [place], [place] [phone] Pharmacist Aide Post Acute Care 10/20/24 Brianna Doe, sec reporting consultant Hat Forming Machine Operator 10/21/24 Instrument Lens Generator Relationship Specialty Start Date End Date Adama Mendoza MD [facility] [place], [place] [address] PCP - General Family Medicine 10/31/16 Claude Cardenas APRN.EMBROIDERY ASSISTANT [address] [place] [address] [phone] Director Zone Family Medicine 09/10/24 Danita Meraz PA-C [address] [place] [address] Director Zone Family Medicine 09/10/24 Soto Valderrama MD [address] [place], [place] [phone] Referring Internal Medicine 10/20/24 Adama Mendoza MD [address] [place] [address] Home Care Provider Family Medicine 10/20/24 Krishna Mackey, VAN [address] [place], [place] [phone] Pharmacist Aide Post Acute Care 10/20/24 Brianna Doe, sec reporting consultant Hat Forming Machine Operator 10/21/24 Instrument Lens Generator Relationship Specialty Start Date End Date Adama Mendoza MD [address] [place] [address] PCP - General Family Medicine 10/31/16 Claude Cardenas APRN.EMBROIDERY ASSISTANT [address] [place] [address] 668[address] [phone] Director Zone Family Medicine 09/10/24 Danita Meraz PA-C [address] [place] [address] [id number] [phone] Director Zone Family [facility] 09/10/24 Soto Valderrama MD [address] [place] [address] [phone] Referring Internal Medicine 10/20/24 Adama Mendoza MD [address] [place] [address] Home Care Provider Family Medicine 10/20/24 Krishna Mackey, RN [address] [place] [address] Pharmacist Aide Post Acute Care 10/20/24 Brianna Doe, sec reporting consultant Hat Forming Machine Operator 10/21/24 Instrument Lens Generator Relationship Specialty Start Date End Date Adama Mendoza MD [address] [place] [address] PCP - General Family Medicine 10/31/16 Claude Cardenas, MIO.EMBROIDERY ASSISTANT [address] [place] [address] Director Zone Family Medicine 09/10/24 Danita Meraz PA-C [address] [place], [place] 122991 Director Zone Family [facility] 09/10/24 Soto Valderrama MD [address] [place], [place] [phone] Referring Internal Medicine 10/20/24 Adama Mendoza MD [address] [place] [address] [phone] Home Care Provider Family Medicine 10/20/24 Krishna Mackey, VAN [address] [place], [place] [phone] Pharmacist Aide Post Acute Care 10/20/24 Brianna Doe RN Primary Care Hat Forming Machine Operator 10/21/24 Instrument Lens Generator Relationship Specialty Start Date End Date Adama Mendoza MD [address] [place] [address] 52093 PCP - General Family Medicine 10/31/16 Claude Cardenas APRN.RACHELLE [address] [place] [address] [phone] Director Zone [facility] 09/10/24 Danita Meraz PA-C [address] [place] [address] [phone] Director Zone Family [facility] 09/10/24 Soto Valderrama MD [address] [place], [place] [phone] Referring Internal Medicine 10/20/24 Adama Mendoza MD [address] [place], [place] [phone] Home Care Provider Family Medicine 10/20/24 Krishna MackeyVAN [address] [place] [address] Pharmacist Aide Post Acute Care 10/20/24 Brianna Doe, sec reporting consultant Hat Forming Machine Operator 10/21/24 Instrument Lens Generator Relationship Specialty Start Date End Date Adama Mendoza MD [facility]0 [place], [place] 093023 [phone] PCP - General Family Medicine 10/31/16 Claude Cardenas APRN.EMBROIDERY ASSISTANT [address] [place] [address] [phone] Director Zone Family Medicine 09/10/24 Danita Meraz PA-C [address] [place] [address] 50649 Director Zone Family Medicine 09/10/24 Soto Valderrama MD [address] [place] [address] [phone] Referring Internal Medicine 10/20/24 Adama Mendoza MD [address] [place] [address] 18035 Home Care Provider Family Medicine 10/20/24 Krishna Mackey RN [address] [place] [address] Pharmacist Aide Post Acute Care 10/20/24 Brianna Doe, sec reporting consultant Hat Forming Machine Operator 10/21/24 Instrument Lens Generator Relationship Specialty Start Date End Date Adama Mendoza MD [address] [place] [address] 260026 [phone] PCP - General Family Medicine 10/31/16 Claude Cardenas APRN.EMBROIDERY ASSISTANT [address] [place] [address] [phone] Director Zone Family [facility] 09/10/24 Danita Meraz PA-C [address] [place], [place] [phone] Director Zone Family [facility] 09/10/24 Soto Valderrama MD [address] [place], [place] [phone] Referring Internal Medicine 10/20/24 Adama Mendoza MD [address] [place] [address] 86598 Home Care Provider Family Medicine 10/20/24 Krishna Mackey, VAN [address] [place], [place] [phone] Pharmacist Aide Post Acute Care 10/20/24 Brianna Doe, sec reporting consultant Hat Forming Machine Operator 10/21/24 Instrument Lens Generator Relationship Specialty Start Date End Date Adama Mendoza MD [address] [place] [address] 61501 PCP - General Family Medicine 10/31/16 Claude Cardenas APRN.CNP [address] [place] [address] [phone] Director Zone Family [facility] 09/10/24 Danita Meraz PA-C [address] [place] [address] Director Zone Family [facility] 09/10/24 Soto Valderrama MD [address] [place] [address] Referring Internal Medicine 10/20/24 Adama Mendoza MD [address] [place] [address] [phone] Home Care Provider Family Medicine 10/20/24 Brianna Doe, sec reporting consultant Hat Forming Machine Operator 10/21/24 Instrument Lens Generator Relationship Specialty Start Date End Date Adama Mendoza MD [address] [place] [address] PCP - General Family Medicine 10/31/16 Claude Cardenas APRN.EMBROIDERY ASSISTANT [address] [place] [address] 51083 Director Zone Family Medicine 09/10/24 Danita Meraz PA-C [address] [place] [address] 94147 Director Zone Family Medicine 09/10/24 Soto Valderrama MD [address] [place] [address] 68135 Referring Internal Medicine 10/20/24 Adama Mendoza MD [address] [place] [address] Home Care Provider Family Medicine 10/20/24 Brianna Doe RN Primary Care Hat Forming Machine Operator 10/21/24 Instrument Lens Generator Relationship Specialty Start Date End Date Adama Mendoza MD [address] [place] [address] PCP - General Family Medicine 10/31/16 Claude Cardenas APRN.EMBROIDERY ASSISTANT [address] [place] [address] 05126 Director Zone Family Medicine 09/10/24 Danita Meraz PA-C [address] [place] [address] Director Zone Family Medicine 09/10/24 Soto Valderrama MD [address] [place] [address] 73483 Referring Internal Medicine 10/20/24 Adama Mendoza MD [address] [place] [address] 43957 Home Care Provider Family Medicine 10/20/24 Brianna Doe, sec reporting consultant Hat Forming Machine Operator 10/21/24 Instrument Lens Generator Relationship Specialty Start Date End Date Adama Mendoza MD [address] [place] [address] 12100 PCP - General Family Medicine 10/31/16 Claude Cardenas APRN.EMBROIDERY ASSISTANT [address] [place] [address] [phone] Director Zone Family Medicine 09/10/24 Danita Meraz PA-C [address] [place] [address] 84672 Director Zone Family [facility] 09/10/24 Soto Valderrama MD [address] [place] [address] 15072 Referring Internal Medicine 10/20/24 Adama Mendoza MD [address] [place] [address] 18226 Home Care Provider Family Medicine 10/20/24 Brianna Doe, sec reporting consultant Hat Forming Machine Operator 10/21/24 Instrument Lens Generator Relationship Specialty Start Date End Date Adama Mendoza MD [address] [place] [address] 76649 PCP - General Family Medicine 10/31/16 Claude Cardenas APRN.EMBROIDERY ASSISTANT [address] [place] [address] Director Zone Family Medicine 09/10/24 Danita Meraz PA-C [address] [place] [address] Director Zone Family Medicine 09/10/24 Soto Valderrama MD [address] [place], [place] [phone] Referring Internal Medicine 10/20/24 Adama Mendoza MD [address] [place] [address] 47969 Home Care Provider Family Medicine 10/20/24 Brianna Doe, sec reporting consultant Hat Forming Machine Operator 10/21/24 11/18/24 Instrument Lens Generator Relationship Specialty Start Date End Date Adama Mendoza MD [address] [place] [address] 63041 PCP - General Family Medicine 10/31/16 Claude Cardenas APRN.EMBROIDERY ASSISTANT [address] [place] [address] 83210 Director Zone Family Medicine 09/10/24 Danita Meraz PA-C [address] [place], [place] 033463 [phone] Director Zone Family Medicine 09/10/24 Soto Valderrama MD [address] [place], [place] [phone] Referring Internal Medicine 10/20/24 Adama Mendoza MD [address] [place] [address] Home Care Provider Family Medicine 10/20/24 Instrument Lens Generator Relationship Specialty Start Date End Date Adama Mendoza MD [address] [place] [address] PCP - General Family Medicine 10/31/16 Claude Cardenas APRN.EMBROIDERY ASSISTANT [address] [place] [address] 07969 Director Zone Family [facility] 09/10/24 Danita Meraz PA-C [address] [place] [address] 25659 Director Zone Family Medicine 09/10/24 Soto Valderrama MD [address] [place] [address] 18459 Referring Internal Medicine 10/20/24 Adama Mendoza MD [address] [place] [address] Home Care Provider Family Medicine 10/20/24 Instrument Lens Generator Relationship Specialty Start Date End Date Adama Mendoza MD [address] [place] [address] PCP - General Family Medicine 10/31/16 Claude Cardenas APRN.EMBROIDERY ASSISTANT [address] [place] [address] 74744 Director Zone Family Medicine 09/10/24 Danita Meraz PA-C [address] [place] [address] Director Zone Family Medicine 09/10/24 Soto Valderrama MD [address] [place], [place] [phone] Referring Internal Medicine 10/20/24 Adama Mendoza MD [address] [place] [address] Home Care Provider Family Medicine 10/20/24 Instrument Lens Generator Relationship Specialty Start Date End Date Adama Mendoza MD [address] [place] [address] 23424 PCP - General Family Medicine 10/31/16 Claude Cardenas APRN.[facility] [address] [place] [address] 84311 Director Zone Family Medicine 09/10/24 Danita Meraz PA-C [address] [place] [address] 14053 Director Zone Family Medicine 09/10/24 Soto Valderrama MD [address] [place], [place] [phone] Referring Internal Medicine 10/20/24 Adama Mendoza MD [address] [place] [address] Home Care Provider Family Medicine 10/20/24 Instrument Lens Generator Relationship Specialty Start Date End Date Adama Mendoza MD [address] [place] [address] PCP - General Family Medicine 10/31/16 Claude Cardenas APRN.EMBROIDERY ASSISTANT [address] [place] [address] Director Zone Family Medicine 09/10/24 Danita Meraz PA-C [address] [place] [address] Director Zone Family Medicine 09/10/24 Soto Valderrama MD [address] [place], [place] [phone] Referring Internal Medicine 10/20/24 Adama Mendoza MD [address] [place] [address] 41353 Home Care Provider Family Medicine 10/20/24 Instrument Lens Generator Relationship Specialty Start Date End Date Adama Mendoza MD [address] [place] [address] 58074 PCP - General Family Medicine 10/31/16 Claude Cardenas APRN.EMBROIDERY ASSISTANT [address] [place] [address] 64317 Director Zone Family Medicine 09/10/24 Danita Meraz PA-C [facility] [place] [address] Director Zone Family Medicine 09/10/24 Soto Valderrama MD [address] [place], [place] [phone] Referring Internal Medicine 10/20/24 Adama Mendoza MD [address] [place] [address] Home Care Provider Family Medicine 10/20/24 Instrument Lens Generator Relationship Specialty Start Date End Date Adama Mendoza MD [address] [place] [address] PCP - General Family Medicine 10/31/16 Claude Cardenas APRN.EMBROIDERY ASSISTANT [address] [place] [address] Director Zone Family Medicine 09/10/24 Danita Meraz PA-C [address] [place] [address] Director Zone Family [facility] 09/10/24 Soto Valderrama MD [address] [place], [place] [phone] Referring Internal Medicine 10/20/24 Adama Mendoza MD [address] [place] [address] Home Care Provider Family Medicine 10/20/24 Instrument Lens Generator Relationship Specialty Start Date End Date Claude Cardenas APRN.EMBROIDERY ASSISTANT [facility] [place] [address] Director Zone Family Medicine 09/10/24 Danita Meraz PA-C [address] [place] [address] Director Zone Family Medicine 09/10/24 Soto Valderrama MD [address] [place], [place] [phone] Referring Internal Medicine 10/20/24 Adama Mendoza MD [address] [place] [address] Home Care Provider Family Medicine 10/20/24 Instrument Lens Generator Relationship Specialty Start Date End Date Adama Mendoza MD [address] [place] [address] PCP - General Family Medicine 01/09/25 Claude Cardenas APRN.EMBROIDERY ASSISTANT [address] [place] [address] 64155 Director Zone Family Medicine 09/10/24 Danita Meraz PA-C [address] [place] [address] 89425 Director Zone Family Medicine 09/10/24 Soto Valderrama MD [address] [place] [address] Referring Internal Medicine 10/20/24 Adama Mendoza MD [address] [place] [address] 69920 Home Care Provider Family Medicine 10/20/24 Instrument Lens Generator Relationship Specialty Start Date End Date Adama Mendoza MD [address] [place] [address] PCP - General Family Medicine 01/09/25 Claude Cardenas APRN.EMBROIDERY ASSISTANT [address] [place] [address] 82801 Director Zone Family Medicine 09/10/24 Danita Meraz PA-C [address] [place] [address] Director Zone Family Medicine 09/10/24 Soto Valderrama MD [address] [place] [address] Referring Internal Medicine 10/20/24 Adama Mendoza MD [address] [place] [address] Home Care Provider Family Medicine 10/20/24 Instrument Lens Generator Relationship Specialty Start Date End Date Adama Mendoza MD [address] [place] [address] PCP - General Family Medicine 01/09/25 Claude Cardenas APRN.EMBROIDERY ASSISTANT [address] [place] [address] 25875 Director Zone Family Medicine 09/10/24 Danita Meraz PA-C [address] [place] [address] 39514 Director Zone Family Medicine 09/10/24 Soto Valderrama MD [address] [place] [address] Referring Internal Medicine 10/20/24 Adama Mendoza MD [address] [place] [address] Home Care Provider Family Medicine 10/20/24 Instrument Lens Generator Relationship Specialty Start Date End Date Adama Mendoza MD [address] [place] [address] PCP - General Family Medicine 01/09/25 Claude Cardenas APRN.EMBROIDERY ASSISTANT [address] [place] [address] 00185 Director Zone Family Medicine 09/10/24 Danita Meraz PA-C [address] [place] [address] 07889 Director Zone Family Medicine 09/10/24 Soto Valderrama MD [address] [place] [address] [phone] Referring Internal Medicine 10/20/24 Adama Mendoza MD [address] [place] [address] 20871 Home Care Provider Family Medicine 10/20/24 Instrument Lens Generator Relationship Specialty Start Date End Date Adama Mendoza MD [address] [place] [address] 07816 PCP - General Family Medicine 01/09/25 Soto Valderrama MD [address] [place] [address] [phone] Referring Internal Medicine 10/20/24 Adama Mendoza MD [address] [place] [address] 99961 Home Care Provider Family Medicine 10/20/24 Claude Cardenas APRN.CNP [address] [place] [address] 23787 Director Zone Family Medicine 03/06/25 Danita Meraz PA-C [address] [place] [address] Director Zone Family Medicine 03/06/25 Instrument Lens Generator Relationship Specialty Start Date End Date Adama Mendoza MD [address] [place] [address] PCP - General Family Medicine 01/09/25 Soto Valderrama MD [address] [place] [address] Referring Internal Medicine 10/20/24 Adama Mendoza MD [address] [place] [address] Home Care Provider Family Medicine 10/20/24 Claude Cardenas APRN.EMBROIDERY ASSISTANT [address] [place] [address] 00806 Director Zone Family Medicine 03/06/25 Danita Meraz PA-C [address] [place] [address] 47727 Director Zone Family Medicine 03/06/25 Instrument Lens Generator Relationship Specialty Start Date End Date Adama Mendoza MD [address] [place] [address] PCP - General Family Medicine 01/09/25 Soto Valderrama MD [address] [place] [address] Referring Internal Medicine 10/20/24 Adama Mendoza MD [facility] [place] [address] Home Care Provider Family Medicine 10/20/24 Claude Cardenas APRN.EMBROIDERY ASSISTANT [facility] [place] [address] Director Zone Family Medicine 03/06/25 Danita Meraz PA-C [address] [place] [address] Director Zone Family [facility] 03/06/25 Instrument Lens Generator Relationship Specialty Start Date End Date Adama Mendoza MD [address] [place] [address] PCP - General Family Medicine 01/09/25 Soto Valderrama MD [address] [place], [place] [phone] Referring Internal Medicine 10/20/24 Adama Mendoza MD [address] [place] [address] Home Care Provider Family Medicine 10/20/24 Claude Cardenas APRN.CNP [address] [place] [address] Director Zone Family [facility] 03/06/25 Danita Meraz PA-C [address] [place] [address] Director Zone Family [facility] 03/06/25 Instrument Lens Generator Relationship Specialty Start Date End Date Adama Mendoza MD [address] [place] [address] PCP - General Family Medicine 01/09/25 Soto Valderrama MD [address] [place], [place] [phone] Referring Internal Medicine 10/20/24 Adama Mendoza MD [address] [place] [address] Home Care Provider Family Medicine 10/20/24 Claude Cardenas APRN.EMBROIDERY ASSISTANT [facility] [place] [address] Director Zone Family Medicine 03/06/25 Danita Meraz PA-C [facility] [place] [address] Director Zone Family Medicine 03/06/25 Instrument Lens Generator Relationship Specialty Start Date End Date Adama Mendoza MD [address] [place] [address] PCP - General Family Medicine 01/09/25 Soto Valderrama MD [address] [place] [address] [phone] Referring Internal Medicine 10/20/24 Adama Mendoza MD [address] [place] [address] 01484 Home Care Provider Family Medicine 10/20/24 Claude Cardenas APRN.EMBROIDERY ASSISTANT [address] [place] [address] 55477 Director Zone Family Medicine 03/06/25 Danita Meraz PA-C [facility] [place] [address] Director Zone Family Medicine 03/06/25 Instrument Lens Generator Relationship Specialty Start Date End Date Adama Mendoza MD [address] [place] [address] PCP - General Family Medicine 01/09/25 Soto Valderrama MD [address] [place] [address] Referring Internal Medicine 10/20/24 Adama Mendoza MD [address] [place] [address] 58505 Home Care Provider Family Medicine 10/20/24 Claude Cardenas APRN.EMBROIDERY ASSISTANT [address] [place] [address] 91428 Director Zone Family Medicine 03/06/25 Danita Meraz PA-C [address] [place] [address] 12929 Director Zone Family Medicine 03/06/25 Instrument Lens Generator Relationship Specialty Start Date End Date Adama Mendoza MD [address] [place] [address] 07345 PCP - General Family Medicine 01/09/25 Soto Valderrama MD [address] [place] [address] 52593 Referring Internal Medicine 10/20/24 Adama Mendoza MD [address] [place] [address] 98005 Home Care Provider Family Medicine 10/20/24 Claude Cardenas APRN.EMBROIDERY ASSISTANT [address] [place] [address] 13589 Director Zone Family Medicine 03/06/25 Danita Meraz PA-C [facility] [place] [address] Director Zone Family Medicine 03/06/25 Team Status: Active Member Role/Relationship Status Dates Dr. Adama Mendoza MD Primary care physician Active Team Status: Inactive Member Role/Relationship Status Dates Dr. Adama Mendoza MD Primary care physician Active Start: June 23, 2025 End: June 23, 2025 Dr. Adama Mendoza MD Referring Provider Active Start: June 23, 2025 End: June 23, 2025 Dr. Cayden Morton MD Attending physician Active Start: June 23, 2025 End: June 23, 2025 Goals (unrecognized section and content) Goals may be documented in a n alternate sectionGoals may be documented in an alternate sectionGoals may be documented in an alternate sectionGoals may be documented in an alternate section FOR RECORDS PERTAINING TO PATIENTS WHO ARE OR HAVE BEEN ENROLLED IN A CHEMICAL DEPENDENCY/SUBSTANCEABUSE PROGRAM, SOME INFORMATION MAY BE OMITTED. This clinical summary was aggregated from multiple sources. Caution should be exercised in using it in the provision of clinical care. This summary normalizes information from multiple sources, and as a consequence, information in this document may materially change the coding, format and clinical context of patient data. In addition, data may be omitted in some cases. CLINICAL DECISIONS SHOULD BE BASED ON THE PRIMARY CLINICAL RECORDS. [employer] provides no warranty or guarantee of the accuracy or completeness of information in this document.
[2025-10-01 01:28] LABS: Squamous Epithelial Cells - UA 0 SEEN /hpf (0-5)
[2025-10-01 01:36] LABS: Color, Urine Yellow (Yellow); Glucose, Dipstick Normal (Normal); Ketone-Dipstick Negative (Negative); Leukocyte Esterase-Dipstick Negative /ul (Negative); Nitrite-Dipstick Negative (Negative); Occult Blood-Urine Negative /ul (Negative); Protein-Dipstick 100 mg/dl (Negative); Specific Gravity, Urine 1.010 (1.002-1.030); Urine Bilirubin Dipstick Negative (Negative)
[2025-10-01 01:43] LABS: Mucous, Urine 1+ /hpf (<or=2+); Red Blood Cells-Urine 0-5 SEEN /hpf (0-5)
--- OUTSIDE RECORDS SUMMARY | 2025-10-01 02:23 | XMS RPT_ITS | CCD ---
Author Organization [facility] Care Team Providers Care Rehabilitation Technician Name Role Phone CASEY BRUSH Unavailable Unavailable SHYAE [place] Unavailable Unavailable CASEY BRUSH Unavailable Unavailable [facility] Unavailable Unavailable Adama Mendoza Unavailable Unavailable CASEY BRUSH Unavailable Unavailable CASEY BRUSH Unavailable Unavailable Adama Mendoza Unavailable Unavailable Adama Mendoza MD Primary Care Provider Adama Mendoza MD Primary Care Provider Adama Mendoza MD Primary Care Provider Adama Mendoza MD Primary Care Provider Adama eMndoza MD Primary Care Provider Adama Mendoza MD Primary Care Provider Timothy COYLE, Claude Unavailable Danita Meraz PA-C Unavailable Soto Valderrama MD Unavailable [phone] Adama Mendoza MD Unavailable Krishna Mackey RN Unavailable Brianna Doe RN Unavailable Unavailable ADAMA MENDOZA Primary Care Unavailable SHAYE KITCHEN JR Referring Unavailable ADAAM MENDOZA Primary Care Unavailable SHAYE KITCHEN JR Referring Unavailable ADAMA MENDOZA Primary Care Unavailable SHAYE KITCHEN JR Referring Unavailable ADAMA MENDOZA Primary Care Unavailable SHAYE KITCHEN JR Referring Unavailable ADAMA MENDOZA Primary Care Unavailable NUBIA SALINAS Admitting Unavailable SOTO VALDERRAMA Attending UnavailDOMENICO Simon Referring Unavailable Brianna Doe RN Unavailable Unavailable Adama Mendoza MD Primary Care Provider Timothy USER SUPPORT ANALYST SUPERVISORClaude MIGUEL Unavailable Danita Meraz PA-C Unavailable Adama Mendoza Referring Unavailable Cayden Morton Attending Unavailable Danay, Adama Primary Care Unavailable Danay, Adama Primary Care Unavailable Fish Burnette Attending Unavailable Danay LANTIGUA, Dr. Galan Primary Care Physician Danay LANTIGUA, Dr. Galan Referring Provider Dr. Cayden Morton MD Attending Physician [phone] DANDY FAITH Referring Unavailable DANAY, ADAMA A [...] DANAY, ADAMA A Primary Care Unavailable RUBÉN GONZALEZ Attending Unavailable DANAY, ADAMA [...] ezetimibe Drug Allergy 8 Mental Status Change [facility] HMG-CoA Reductase Inhibitors (statins) (1 source) atorvastatin Drug Allergy 5 Intolerance [facility] Macrolides (antibiotic) (1 source) Azithromycin Drug Allergy 5 Itching [facility] sildenafil (1 source) sildenafil Drug Allergy 5 Unknown [facility] (20 sources) atorvastatin; Translations: [ATORVASTATIN] Drug Allergy 5 Intolerance [facility] Repository (20 sources) azithromycin; Translations: [AZITHROMYCIN] Drug Allergy 5 Itching [facility] Repository (20 sources) ezetimibe; Translations: [EZETIMIBE] Drug Allergy 8 Mental Status Change [facility] Repository Comment on above: mental status change (20 sources) sildenafil; Translations: [SILDENAFIL] Drug Allergy 5 Unknown [facility] Repository (2 sources) OTHER; Translations: [OTHER] Propensity to adverse reactions (disorder) 5 [facility] Repository (20 sources) BETA-SHRAVAN S [Other] Propensity to adverse reactions 5 Unknown [facility] Work Phone: (4 sources) Adrenergic Beta-Antagonists Allergy to substance 2 NEEDS FOLLOW-UP [facility] (4 sources) Kjtqqvd-Nhz-Qrt Reductase Inhibitor Allergy to substance 2 Other [facility] (20 sources) beta-Blocking agent; Translations: [BETA-BLOCKERS (BETA-ADRENERGIC BLOCKING AGTS)] Propensity to adverse reactions to drug 4 Unknown [facility] Work Phone: (1 source) Adrenergic Beta-Antagonists Drug allergy (disorder) 5 [facility] Repository (1 source) Njjlept-Ywi-Bav Reductase Inhibitor Drug allergy (disorder) 5 [facility] Repository Medications Current Medications Medication Drug [...] hydrochloride 10 mg oral tablet (20 sources) T-uphszp-D-aspartat e Receptor Antagonist Start: 4 End: 5 [...] Chronic Comment on above: linear lacunar ische caremn infarct in the right posterior internal capsule [...] disease (20 sources) Atherosclerotic heart disease of [place] coronary artery without angina pectoris; Translations: [Recurrent [...] 12-14-2019 Episodic Other aftercare (1 source) 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 Accompanied by: Significant Other Is patient in pain?: No Allergies atorvastatin (From Lipitor) Allergy (Verified 06/23/25 14:02) PT UNSURE OF REACTION azithromycin (From Zithromax) Allergy (Verified 06/23/25 14:02) Itching Beta-Blockers (Beta-Adrenergic Bloc Allergy (Verified 06/23/25 14:02) NEEDS FOLLOW-UP sildenafil (From Viagra) Allergy (Verified 06/23/25 14:02) PT UNSURE OF REACTION Tzhmsdd-KSV-AqL Reductase Inhibitor ([place]-Itv-Nfw Reductase Inhibitor) Allergy (Verified 06/23/25 14:02) Other [...] aortic aneurysm (AAA) Atherosclerotic heart disease of [place] coronary artery without angina pectoris Ischemic cerebrovascular accident (CVA) (02/10/18) Essential (primary) hypertension Dementia GERD (gastroesophageal reflux disease) HLD (hyperlipidemia) Prostate cancer Surgical History History of left heart catheterization (10/15/20) History of herniorrhaphy History of (more content not included)... Normal [facility] CNOVon 06-02-2025 CNOV Normal [facility] CNPTOUTREACHon 06-01-2025 CNPTOUTREACH Normal [facility] VITAMIN B6/PYRIDOXINon 04-13 VITAMIN B6 33.9 nmol/L Normal 20.0-125.0 [facility] Comment on above: Order Comment: Speci men Type: BLOOD SPECIMENOrdering Facility: [facility] Address: [address] [place] [address] Result Comment: INTE RPRETIVE INFORMATION: Vitamin B6 (Pyridoxal 5-Phosphate)Pyridoxal 5'-phosphate measured in a specimen collected followingan 8-hour or overnight fast accurately indicates vitamin O8ecsivubzjzz status. Non-fasting specimen concentration reflectsrecent vitamin intake.This test was developed and its performance characteristicsdetermined by [facility]. It has not been cleared orapproved by the [place] Food and Drug Administration. This test wasperformed in a CLIA certified laboratory and is intended forclinical purposes.Performed By: [facility] [place], [place] [address]Efqhvidisz Director: Kenan Brunner MD, PhDCLIA Number: [id number] Performed By: #### V ITB6 ####[facility] [id number] [place] [address] [facility]on 2024 [facility] Normal [facility] Urinalysis complete panel (U )on 04-12-2025 Bacteria LM.HPF (Urine sed) [#/Area] Negative Normal Negative [facility] Comment on above: Order Comment: Speci men Type: URINE SPECIMENOrdering Facility: [facility] Address: [address] [place] [address] Performed By: #### 2 4356-8 ####[facility] LABCLIA [id number] [address] [place] [address] [place] Bilirubin Ql (U) Negative Normal Negative [facility] Comment on above: Order Comment: Speci men Type: URINE SPECIMENOrdering Facility: [facility] Address: [address] [place] [address] Performed By: #### 2 4356-8 ####[facility] LABCLIA [id number] [address], [facility] [place] Clarity (Unsp spec) Clear Normal Clear [facility] Comment on above: Order Comment: Speci men Type: URINE SPECIMENOrdering Facility: [facility] Address: [address] [place] [address] Performed By: #### 2 4356-8 ####[facility] LABCLIA [id number] [address], [facility] [place] Color (U) Yellow Normal Yellow [facility] Comment on above: Order Comment: Speci men Type: URINE SPECIMENOrdering Facility: [facility] Address: [address] [place] [address] Performed By: #### 2 4356-8 ####[facility] LABCLIA [id number] [address] [place] [address] [place] Epithelial cells LM.HPF (Urine sed) [#/Area] None Seen Normal [facility] Comment on above: Order Comment: Speci men Type: URINE SPECIMENOrdering Facility: [facility] Address: [address] [place] [address] Performed By: #### 2 4356-8 ####[facility] LABCLIA [id number] [place] [address] [place] Glucose Test strip (U) [Mass/Vol] Negative Normal Negative [facility] Comment on above: Order Comment: Speci men Type: URINE SPECIMENOrdering Facility: [facility] Address: [address] [place] [address] Performed By: #### 2 4356-8 ####[facility] LABCLIA [id number] [address], [facility] [place] Hemoglobin Ql (U) Negative Normal Negative [facility] Comment on above: Order Comment: Speci men Type: URINE SPECIMENOrdering Facility: [facility] Address: [address] [place] [address] Performed By: #### 2 4356-8 ####[facility] LABCLIA [id number] [address], [facility] [place] Hyaline casts (Urine sed) [#/Area] 0 /[LPF] Normal 0 /LPF [facility] Comment on above: Order Comment: Speci men Type: URINE SPECIMENOrdering Facility: [facility] Address: [address] [place] [address] Performed By: #### 2 4356-8 ####[facility] LABCLIA [id number] [facility] [address], [facility] [place] Ketones Ql (U) Negative Normal Negative [facility] Comment on above: Order Comment: Speci men Type: URINE SPECIMENOrdering Facility: [facility] Address: [address] [place] [address] Performed By: #### 2 4356-8 ####[facility] LABCLIA [id number] [address], [facility] [place] Leukocyte esterase Test strip Ql (U) Negative Normal Negative [facility] Comment on above: Order Comment: Speci men Type: URINE SPECIMENOrdering Facility: [facility] Address: [address] [place] [address] Performed By: #### 2 4356-8 ####[facility] LABCLIA [id number] [address], [facility] [place] Nitrite Ql (U) Negative Normal Negative [facility] Comment on above: Order Comment: Speci men Type: URINE SPECIMENOrdering Facility: [facility] Address: [address] [place] [address] Performed By: #### 2 4356-8 ####[facility] LABCLIA [id number] [place] [address] [place] pH (U) 6.0 [pH] Normal <8.5 [facility] Comment on above: Order Comment: Speci men Type: URINE SPECIMENOrdering Facility: [facility] Address: [address] [place] [address] Performed By: #### 2 4356-8 ####[facility] LABIA [id number] [place] [address] [place] Protein (U) [Mass/Vol] 1+ Abnormal Negative Cl [facility] Comment on above: Order Comment: Speci men Type: URINE SPECIMENOrdering Facility: [facility] Address: [address] [place] [address] Performed By: #### 2 4356-8 ####[facility] LABIA [id number] [place] [address] [place] RBC LM.HPF (Urine sed) [#/Area] 0-2 /HPF Normal 0-2 /HPF [facility] Comment on above: Order Comment: Speci men Type: URINE SPECIMENOrdering Facility: [facility] Address: [address] [place] [address] Performed By: #### 2 4356-8 ####[facility] LABIA [id number] [place] [id number] [place] Specific gravity (U) [Rel density] 1.021 Normal 1.005-1.03 0 [facility] Comment on above: Order Comment: Speci men Type: URINE SPECIMENOrdering Facility: [facility] Address: [address] [place] [address] Performed By: #### 2 4356-8 ####[facility] [id number] [place] [address] [place] Urobilinogen Ql (U) 0.2 EU/dL Normal 0.2-1.0 EU/dL [facility] Comment on above: Order Comment: Speci men Type: URINE SPECIMENOrdering Facility: [facility] Address: [address] [place] [address] Performed By: #### 2 4356-8 ####[facility] [id number] [place] [address] [place] WBC LM.HPF (Urine sed) [#/Area] 0-5 /HPF Normal 0-5 /HPF [facility] Comment on above: Order Comment: Speci men Type: URINE SPECIMENOrdering Facility: [facility] Address: [address] [place] [address] Performed By: #### 2 4356-8 ####[facility] [id number] [place] [address] [place] CBC W Auto Differential pane l (Bld)on 04-11-2025 Basophils (Bld) [#/Vol] 0.04 10*3/uL [facility] Basophils/100 WBC (Bld) 0.5 % [facility] Differential cell count method Nom (Bld) Auto [facility] Eosinophils (Bld) [#/Vol] 0.2 10*3/uL [facility] Eosinophils/100 WBC (Bld) 2.3 % [facility] Erythrocyte distribution width (RBC) [Ratio] 13.2 % 11.5 - 15.0 % [facility] Hematocrit (Bld) [Volume fraction] 41.7 % 39.0 - 51.0 % [facility] Hemoglobin (Bld) [Mass/Vol] 14 g/dL 13.0 - 17.0 g/dL [facility] Immature granulocytes (Bld) [#/Vol] 0.03 10*3/uL [facility] Immature granulocytes/100 WBC (Bld) 0.4 % [facility] Interpretation and review of laboratory results Abnormal [facility] Lymphocytes (Bld) [#/Vol] 2.21 10*3/uL [facility] Lymphocytes/100 WBC (Bld) 25.8 % [facility] MCH (RBC) [Entitic mass] 29.5 pg 26.0 - 34.0 pg [facility] MCHC (RBC) [Mass/Vol] 33.6 g/dL 30.5 - 36.0 g/dL [facility] MCV (RBC) [Entitic vol] 87.8 fL 80.0 - 100.0 fL [facility] Monocytes (Bld) [#/Vol] 0.99 10*3/uL High [facility] Monocytes/100 WBC (Bld) 11.6 % [facility] Neutrophils (Bld) [#/Vol] 5.08 10*3/uL [facility] Neutrophils/100 WBC (Bld) 59.4 % [facility] Nucleated RBC (Bld) [#/Vol] [facility] Nucleated RBC/100 WBC (Bld) [Ratio] 0 % /100 WBC [facility] Platelet mean volume (Bld) [Entitic vol] 10.5 fL 9.0 - 12.7 fL [facility] Platelets (Bld) [#/Vol] 275 10*3/uL [facility] RBC (Bld) [#/Vol] 4.75 10*6/uL 4.20 - 6.00 m/uL [facility] WBC (Bld) [#/Vol] 8.55 10*3/uL [facility] Basophils (Bld) [#/Vol] 0.04 10*3/uL Normal <0.11 [facility] Comment on above: Order Comment: Speci men Type: BLOOD SPECIMENOrdering Facility: [facility] Address: [address] [place] [address] Performed By: #### 5 7021-8 ####[facility] LABCLIA [id number] [address] [place] Basophils/100 WBC (Bld) 0.5 % Normal [facility] Comment on above: Order Comment: Speci men Type: BLOOD SPECIMENOrdering Facility: [facility] Address: [address] [place] [address] Performed By: #### 5 7021-8 ####[facility] LABCLIA [id number] [place] [address] [place] Differential cell count method Nom (Bld) Auto Normal [facility] Comment on above: Order Comment: Speci men Type: BLOOD SPECIMENOrdering Facility: [facility] Address: [address] [place] [address] Performed By: #### 5 7021-8 ####[facility] LABCLIA [id number] [place] [address] [place] Eosinophils (Bld) [#/Vol] 0.20 10*3/uL Normal <0.46 [facility] Comment on above: Order Comment: Speci men Type: BLOOD SPECIMENOrdering Facility: [facility] Address: [address] [place] [address] Performed By: #### 5 7021-8 ####[facility] LABCLIA [id number] [place] [address] [place] Eosinophils/100 WBC (Bld) 2.3 % Normal [facility] Comment on above: Order Comment: Speci men Type: BLOOD SPECIMENOrdering Facility: [facility] Address: [address] [place] [address] Performed By: #### 5 7021-8 ####[facility] LABCLIA [id number] [place] [address] [place] Erythrocyte distribution width (RBC) [Ratio] 13.2 % Normal 11.5-15.0 [facility] Comment on above: Order Comment: Speci men Type: BLOOD SPECIMENOrdering Facility: [facility] Address: [address] [place] [address] Performed By: #### 5 7021-8 ####[facility] LABCLIA [id number] [place] [address] [place] Hematocrit (Bld) [Volume fraction] 41.7 % Normal 39.0-51.0 [facility] Comment on above: Order Comment: Speci men Type: BLOOD SPECIMENOrdering Facility: [facility] Address: [address] [place] [address] Performed By: #### 5 7021-8 ####[facility] LABIA [id number] [place] [address] [place] Hemoglobin (Bld) [Mass/Vol] 14.0 g/dL Normal 13.0-17.0 [facility] Comment on above: Order Comment: Speci men Type: BLOOD SPECIMENOrdering Facility: [facility] Address: [address] [place] [address] Performed By: #### 5 7021-8 ####[facility] LABIA [id number] [place] [address] [place] Immature granulocytes (Bld) [#/Vol] 0.03 10*3/uL Normal <0.10 [facility] Comment on above: Order Comment: Speci men Type: BLOOD SPECIMENOrdering Facility: [facility] Address: [address] [place] [address] Performed By: #### 5 7021-8 ####[facility] LABIA [id number] [place] [address] [place] Immature granulocytes/100 WBC (Bld) 0.4 % Normal [facility] Comment on above: Order Comment: Speci men Type: BLOOD SPECIMENOrdering Facility: [facility] Address: [address] [place] [address] Performed By: #### 5 7021-8 ####[facility] LABIA [id number] [place] [address] [place] Lymphocytes (Bld) [#/Vol] 2.21 10*3/uL Normal 1.00-4.00 [facility] Comment on above: Order Comment: Speci men Type: BLOOD SPECIMENOrdering Facility: [facility] Address: [address] [place] [address] Performed By: #### 5 7021-8 ####[facility] LABIA [id number] [place] [address] [place] Lymphocytes/100 WBC (Bld) 25.8 % Normal [facility] Comment on above: Order Comment: Speci men Type: BLOOD SPECIMENOrdering Facility: [facility] Address: [address] [place] [address] Performed By: #### 5 7021-8 ####[facility] LABW[facility] [id number] [place] [address] [place] MCH (RBC) [Entitic mass] 29.5 pg Normal 26.0-34.0 [facility] Comment on above: Order Comment: Speci men Type: BLOOD SPECIMENOrdering Facility: [facility] Address: [address] [place] [address] Performed By: #### 5 7021-8 ####[facility] LABIA [id number] [place] [address] [place] MCHC (RBC) [Mass/Vol] 33.6 g/dL Normal 30.5-36.0 [facility] Comment on above: Order Comment: Speci men Type: BLOOD SPECIMENOrdering Facility: [facility] Address: [address] [place] [address] Performed By: #### 5 7021-8 ####[facility] LABIA [id number] [place] [address] [place] MCV (RBC) [Entitic vol] 87.8 fL Normal 80.0-100.0 [facility] Comment on above: Order Comment: Speci men Type: BLOOD SPECIMENOrdering Facility: [facility] Address: [address] [place] [address] Performed By: #### 5 7021-8 ####[facility] LABCLIA [id number] [facility] [address], [place] [address] [place] Monocytes (Bld) [#/Vol] 0.99 10*3/uL High <0.87 [facility] Comment on above: Order Comment: Speci men Type: BLOOD SPECIMENOrdering Facility: [facility] Address: [address] [place] [address] Performed By: #### 5 7021-8 ####[facility] LABCLIA [id number] [facility] [address], [place] [address] [place] Monocytes/100 WBC (Bld) 11.6 % Normal [facility] Comment on above: Order Comment: Speci men Type: BLOOD SPECIMENOrdering Facility: [facility] Address: [address] [place] [address] Performed By: #### 5 7021-8 ####[facility] LABCLIA [id number] [address], [place] [address] [place] Neutrophils (Bld) [#/Vol] 5.08 10*3/uL Normal 1.45-7.50 [facility] Comment on above: Order Comment: Speci men Type: BLOOD SPECIMENOrdering Facility: [facility] Address: [address] [place] [address] Performed By: #### 5 7021-8 ####[facility] LABCLIA [id number] [place] [address] [place] Neutrophils/100 WBC (Bld) 59.4 % Normal [facility] Comment on above: Order Comment: Speci men Type: BLOOD SPECIMENOrdering Facility: [facility] Address: [address] [place] [address] Performed By: #### 5 7021-8 ####[facility] LABCLIA [id number] [facility] [address], [facility] [place] Nucleated RBC (Bld) [#/Vol] 10*3/uL Normal <0.01 [facility] Comment on above: Order Comment: Speci men Type: BLOOD SPECIMENOrdering Facility: [facility] Address: [address] [place] [address] Performed By: #### 5 7021-8 ####[facility] LABCLIA [id number] [address] [address] [place] Nucleated RBC/100 WBC (Bld) [Ratio] 0.0 /100 WBC Normal [facility] Comment on above: Order Comment: Speci men Type: BLOOD SPECIMENOrdering Facility: [facility] Address: [address] [place] [address] Performed By: #### 5 7021-8 ####[facility] LABCLIA [id number] [place] [address] [place] Platelet mean volume (Bld) [Entitic vol] 10.5 fL Normal 9.0-12.7 [facility] Comment on above: Order Comment: Speci men Type: BLOOD SPECIMENOrdering Facility: [facility] Address: [address] [place] [address] Performed By: #### 5 7021-8 ####[facility] LABIA [id number] [place] [address] [place] Platelets (Bld) [#/Vol] 275 10*3/uL Normal 150-400 [facility] Comment on above: Order Comment: Speci men Type: BLOOD SPECIMENOrdering Facility: [facility] Address: [address] [place] [address] Performed By: #### 5 7021-8 ####[facility] LABIA [id number] [place] [address] [place] RBC (Bld) [#/Vol] 4.75 10*6/uL Normal 4.20-6.00 [facility] Comment on above: Order Comment: Speci men Type: BLOOD SPECIMENOrdering Facility: [facility] Address: [address] [place] [address] Performed By: #### 5 7021-8 ####[facility] LABCLIA [id number] [place] [address] [place] WBC (Bld) [#/Vol] 8.55 10*3/uL Normal 3.70-11.00 [facility] Comment on above: Order Comment: Speci men Type: BLOOD SPECIMENOrdering Facility: [facility] Address: [address] [place] [address] Performed By: #### 5 7021-8 ####[facility] LABIA [id number] [place] [address] [place] CNOVon 04-11-2025 CNOV Normal [facility] Comprehensive metabolic 2000 panelon 04-11-2025 Albumin [Mass/Vol] 3.8 g/dL Low 3.9-4.9 [facility] Comment on above: Order Comment: Speci men Type: BLOOD SPECIMENOrdering Facility: [facility] Address: [address] [place] [address] Performed By: #### 2 4323-8, LIPNF, , 2132-06 ####[facility] LABIA [id number] [place] [address] [place] ALP [Catalytic activity/Vol] 83 U/L Normal 38-113 [facility] Comment on above: Order Comment: Speci men Type: BLOOD SPECIMENOrdering Facility: [facility] Address: [address] [place] [address] Performed By: #### 2 4323-8, LIPNF, , 2132-06 ####[facility] LABIA [id number] [place] [id number] [place] ALT [Catalytic activity/Vol] 13 U/L Normal 10-54 [facility] Comment on above: Order Comment: Speci men Type: BLOOD SPECIMENOrdering Facility: [facility] Address: [address] [place] [address] Performed By: #### 2 4323-8, LIPNF, , 2132-06 ####[facility] LABCLIA [id number] [place] [address] [place] Anion gap [Moles/Vol] 12 mmol/L Normal 8-15 [facility] Comment on above: Order Comment: Speci men Type: BLOOD SPECIMENOrdering Facility: [facility] Address: [address] [place] [address] Performed By: #### 2 4323-8, LIPNF, , 2132-06 ####[facility] LABCLIA [id number] [place] [address] [place] AST [Catalytic activity/Vol] 18 U/L Normal 14-40 [facility] Comment on above: Order Comment: Speci men Type: BLOOD SPECIMENOrdering Facility: [facility] Address: [address] [place] [address] Performed By: #### 2 4323-8, LIPNF, , 2132-06 ####[facility] LABCLIA [id number] [place] [address] [place] Bilirubin [Mass/Vol] 0.3 mg/dL Normal 0.2-1.3 [facility] Comment on above: Order Comment: Speci men Type: BLOOD SPECIMENOrdering Facility: [facility] Address: [address] [place] [address] Performed By: #### 2 4323-8, LIPNF, , 2132-06 ####[facility] LABCLIA [id number] [place] [address] [place] Calcium [Mass/Vol] 9.5 mg/dL Normal 8.5-10.2 [facility] Comment on above: Order Comment: Speci men Type: BLOOD SPECIMENOrdering Facility: [facility] Address: [address] [place], [place] [address] Performed By: #### 2 4323-8, LIPNF, , 2132-06 ####[facility] LABIA [id number] [place] [address] [place] Chloride [Moles/Vol] 105 mmol/L Normal 98-107 [facility] Comment on above: Order Comment: Speci men Type: BLOOD SPECIMENOrdering Facility: [facility] Address: [address] [place] [address] Performed By: #### 2 4323-8, LIPNF, , 2132-06 ####[facility] LABIA [id number] [place] [address] [place] CO2 [Moles/Vol] 24 mmol/L Normal 22-30 [facility] Comment on above: Order Comment: Speci men Type: BLOOD SPECIMENOrdering Facility: [facility] Address: [address] [place] [address] Performed By: #### 2 4323-8, LIPNF, , 2132-06 ####[facility] [id number] [place] [address] [place] Creatinine [Mass/Vol] 1.17 mg/dL Normal 0.73-1.22 [facility] Comment on above: Order Comment: Speci men Type: BLOOD SPECIMENOrdering Facility: [facility] Address: [address] [place] [address] Performed By: #### 2 4323-8, LIPNF, , 2132-06 ####[facility] LABIA [id number] [place] [address] [place] Creatinine and Glomerular filtration rate.predicted panel (S/P/Bld) 62 mL/min/1.73m??? Normal >=60 [facility] Comment on above: Order Comment: Speci men Type: BLOOD SPECIMENOrdering Facility: [facility] Address: [address] [place] [address] Result Comment: Carlita mated Glomerular Filtration Rate [...] By: #### 2 4323-8, LIPMAGDY, , 2132-06 ####[facility] LABIA [id number] [address] [address] [place] Glucose [Mass/Vol] 93 mg/dL Normal 74-99 [facility] Comment on above: Order Comment: Speci men Type: BLOOD SPECIMENOrdering Facility: [facility] Address: [address] [place] [address] Result Comment: The [place] Diabetes Association (ADA) provides guidance for cutoff [...] Standards of Medical Care in Diabetes 2016, [place] Diabetes Association. Diabetes Care. 2016.39(Suppl 1). Performed By: #### 2 4323-8, LIPMAGDY, , 2132-06 ####[facility] LABIA [id number] [address] [address] [place] Potassium [Moles/Vol] 4.5 mmol/L Normal 3.7-5.1 [facility] Comment on above: Order Comment: Speci men Type: BLOOD SPECIMENOrdering Facility: [facility] Address: [address] [place] [address] Performed By: #### 2 4323-8, LIPNF, , 2132-06 ####[facility] LABCLIA [id number] [address] [address] [place] Protein [Mass/Vol] 7.4 g/dL Normal 6.3-8.0 [facility] Comment on above: Order Comment: Speci men Type: BLOOD SPECIMENOrdering Facility: [facility] Address: [address] [place] [address] Performed By: #### 2 4323-8, LIPNF, , 2132-06 ####[facility] LABIA [id number] [place] [address] [place] Sodium [Moles/Vol] 141 mmol/L Normal 136-144 [facility] Comment on above: Order Comment: Speci men Type: BLOOD SPECIMENOrdering Facility: [facility] Address: [address] [place] [address] Performed By: #### 2 4323-8, LIPNF, , 2132-06 ####[facility] LABIA [id number] [place] [address] [place] Urea nitrogen [Mass/Vol] 17 mg/dL Normal 9-24 [facility] Comment on above: Order Comment: Speci men Type: BLOOD SPECIMENOrdering Facility: [facility] Address: [address] [place] [address] Performed By: #### 2 4323-8, LIPNF, , 2132-06 ####[facility] LABIA [id number] [address] [address] [place] HbA1c (Bld)on 04-11-2025 Average glucose Estimated from glycated hemoglobin (Bld) [Mass/Vol] 111 mg/dL Normal [facility] Comment on above: Order Comment: Speci men Type: BLOOD SPECIMENOrdering Facility: [facility] Address: [address] [place], [place] [address] Result Comment: eAG: (Estimated average glucose) is a calculated value from HgbA1c and is admissions representative of the average blood glucose level in the last 2-3 month period. Performed By: #### 5 5454-3 ####[facility] LABCLIA [id number] [address] [address] [place] HbA1c (Bld) [Mass fraction] 5.5 % Normal 4.3-5.6 [facility] Comment on above: Order Comment: Raghu sandoval Type: BLOOD SPECIMENOrdering Facility: [facility] Address: [address] [place] [address] Result Comment: [place] Diabetes Association guidelines indicate that patients with HgbA1c in the range 5.7-6.4% are at increased risk for development of diabetes, and intervention by lifestyle modification may be beneficial. HgbA1c greater or equal to 6.5% is considered diagnostic of diabetes. Performed By: #### 5 5454-3 ####[facility] LABIA [id number] [place] [address] [place] LIPID PANEL, NONFASTINGon Cholesterol [Mass/Vol] 212 mg/dL High <200 [facility] Comment on above: Order Comment: Raghu sandoval Type: BLOOD SPECIMENOrdering Facility: [facility] Address: [address] [place] [address] Result Comment: <200 mg/dL, Desirable 200-239 mg/dL, Borderline high>239 mg/dL, High Performed By: #### 2 4323-8, LIPNF, 60874-3, 2-9 ####[facility] LABIA [id number] [place] [address] [place] HDL CHOLESTEROL, NF 31 mg/dL Low >39 [facility] Comment on above: Order Comment: Raghu sandoval Type: BLOOD SPECIMENOrdering Facility: [facility] Address: [address] [place] [address] Result Comment: 40-5 9 mg/dL, Acceptable>59 mg/dL, High: Negative risk factor for coronary heart disease<40 mg/dL, Low: Positive risk factor for coronary heart disease Performed By: #### 2 4323-8, LIPNF, , 2132-06 ####[facility] LABCLIA [id number] [address] [place] LDL CHOLESTEROL CALCULATED, NF 145 mg/dL High <100 [facility] Comment on above: Order Comment: Speci men Type: BLOOD SPECIMENOrdering Facility: [facility] Address: [address] [place] [address] Result Comment: <100 mg/dL, Optimal 100-129 mg/dL, Near optimal/above optimal 130-159 mg/dL, Borderline high 160-189 mg/dL, High>189 mg/dL, Very highSecondary prevention optimal LDL Cholesterol levels are recommended to be <70 mg/dLLDL cholesterol is calculated using the Rey-NIH equation. Performed By: #### 2 4323-8, LIPNF, , 2132-06 ####[facility] LABCLIA [id number] [address] [place] LDL/HDL RATIO, NF 4.68 mg/dL High <2.54 [facility] Comment on above: Order Comment: Speci men Type: BLOOD SPECIMENOrdering Facility: [facility] Address: [address] [place] [address] Result Comment: Refe rence:1. National Cholesterol Education Program ATP III Guideline At-A-Glance Quick Desk Reference: National Heart, Lung, and Blood [place]. National Institutes of Health. 2001: NIH Publication No. 01-3305.2. An International Atherosclerosis Society position paper: global recommendations for the management of dyslipidemia: executive summary, Atherosclerosis. 2014: 232(2):410-413. Performed By: #### 2 4323-8, LIPNF, , 2132-06 ####[facility] LABCLIA [id number] [address] [address] [place] NON HDL CHOL, NF 181 mg/dL High <130 [facility] Comment on above: Order Comment: Speci men Type: BLOOD SPECIMENOrdering Facility: [facility] Address: [address] [place] [address] Result Comment: <130 mg/dL, Optimal 130-159 mg/dL, Near optimal/above optimal 160-189 mg/dL, Borderline high 190-219 mg/dL, High>219 mg/dL, Very highSecondary prevention optimal non HDL Cholesterol levels are recommended to be <100 mg/dL Performed By: #### 2 4323-8, LIPNF, , 2132-06 ####[facility] LABCLIA [id number] [place] [address] [place] T CHOL/HDL RATIO NF 6.84 mg/dL High <5.10 [facility] Comment on above: Order Comment: Speci men Type: BLOOD SPECIMENOrdering Facility: [facility] Address: [address] [place] [address] Performed By: #### 2 4323-8, LIPNF, , 2132-06 ####[facility] LABCLIA [id number] [place] [address] [place] TRIGLYCERIDES, NF 195 mg/dL High <150 [facility] Comment on above: Order Comment: Speci men Type: BLOOD SPECIMENOrdering Facility: [facility] Address: [address] [place] [address] Result Comment: <150 mg/dL, Normal 150-199 mg/dL, Borderline high 200-499 mg/dL, High>499 mg/dL, Very high Performed By: #### 2 4323-8, LIPNF, , 2132-06 ####[facility] LABCLIA [id number] [place] [id number] [place] VLDL CHOLESTEROL, NF 36 mg/dL High <30 [facility] Comment on above: Order Comment: Speci men Type: BLOOD SPECIMENOrdering Facility: [facility] Address: [address] [place] [address] Performed By: #### 2 4323-8, LIPNF, , 2132-06 ####[facility] LABCLIA [id number] [address] [address] [place] Magnesium SerPl-mCncon 04-11 Magnesium [Mass/Vol] 2.1 mg/dL Normal 1.7-2.3 [facility] Comment on above: Order Comment: Speci men Type: BLOOD SPECIMENOrdering Facility: [facility] Address: [address] [place] [address] Performed By: #### 2 4323-8, LIPNF, , 2132-06 ####[facility] LABCLIA [id number] [place] [address] [place] PSA SerPl-mCncon 04-11-2025 Prostate specific Ag [Mass/Vol] 0.19 ng/mL Normal <2.60 [facility] Comment on above: Order Comment: Speci men Type: BLOOD SPECIMENOrdering Facility: [facility] Address: [address] [place] [address] Result Comment: Tota l PSA test methodology used is the Electrochemiluminescence Immunoassay by [employer]. Total PSA values by differing methodologies cannot be interchanged. Performed By: #### 2 857-1 ####[facility] LABIA [id number] [place] [address] [place] Vit B12 SerPl-mCncon 025 Cobalamin (Vitamin B12) [Mass/Vol] 1010 pg/mL Normal 232-1245 [facility] Comment on above: Order Comment: Speci men Type: BLOOD SPECIMENOrdering Facility: [facility] Address: [address] [place], [place] [address] Performed By: #### 2 4323-8, LIPNF, , 2132-06 ####[facility] LABCLIA [id number] [place] [address] [place] Zinc SerPl-mCncon 07-08-2025 Zinc [Mass/Vol] 59 ug/dL Low 60-120 [facility] Comment on above: Order Comment: Speci men Type: BLOOD SPECIMENOrdering Facility: [facility] Address: [address] [place] [address] Result Comment: This test was developed, and its performance characteristics determined by the [facility] Department of Pathology and Laboratory Medicine. It has not been cleared or approved by the FDA. The [facility] Department of Pathology and Laboratory Medicine is regulated under CLIA as qualified to perform high-complexity testing. This test is used for clinical purposes. It should not be regarded as investigational or for research. Performed By: #### 5 763-8 ####[facility] LABCLIA [id number] [place] [address] [place] CNPNon 03-16-2025 CNPN Normal [facility] CNOVon 02-24-2025 CNOV Normal [facility] CNOVon 01-09-2025 CNOV Normal [facility] No Panel Informationon 01-09 IMPRESSION: No radiographic evidence of acute osseous injury. Executor Of Estate: [facility] Transcribe Date/Time: Jan 09 2025 9:33A Dictated by : NATASHA SAAVEDRA MD This examination was interpreted and the report reviewed and electronically signed by: NATASHA SAAVEDRA MD on Jan 09 2025 9:35AM EST DIVISION OF RADIOLOGY [facility] Radiology Study observation (narrative) [facility] XR FOREARM 2V AP/LAT RTon XR FOREARM 2V AP/LAT RT Normal [facility] XR HIP 3V PELV+ AP/LAT RTon 01-09-2025 XR HIP 3V PELV+ AP/LAT RT Normal [facility] XR Pelvis and Hip - right AP and Lateral frogon 01-09-2025 IMPRESSION: No radiographic evidence of acute osseous injury [facility] Transcribe Date/Time: Jan 09 2025 9:37A Dictated [...] of the vasculature. DIVISION OF RADIOLOGY Provider, [facility] - 01/09/2025 * * *Final Report* [...] No radiographic evidence of acute osseous injury Executor Of Estate: [facility] Transcribe Date/Time: Jan 09 2025 9:37A Dictated by : NATASHA SAAVEDRA MD This examination was interpreted and the report reviewed and electronically signed by: NATASHA SAAVEDRA MD on Jan 09 2025 9:38AM EST [facility] XR Pelvis and Hip - right AP and Lateral frogOrdered By: [facility] Provider on 01-09-2025 [facility] XR Radius and Ulna - right [...] the ulnar styloid. DIVISION OF RADIOLOGY Provider, [facility] - 01/09/2025 * * *Final Report* [...] No radiographic evidence of acute osseous injury. [facility] Transcribe Date/Time: Jan 09 2025 9:33A Dictated by : NATASHA SAAVEDRA MD This examination was interpreted and the report reviewed and electronically signed by: NATASHA SAAVEDRA MD on Jan 09 2025 9:35AM EST [facility] XR SHLDR >/=3V AP/MARIE AP/OTH R RTon 01-09-2025 XR SHLDR >/=3V AP/MARIE AP/OTHR RT Normal [facility] XR Shoulder - right 3 Viewso n 01-09-2025 IMPRESSION: No radiographic evidence of acute osseous injury. [facility] Transcribe Date/Time: Jan 09 2025 9:36A Dictated by : NATASHA SAAVEDRA MD This examination was interpreted and the report reviewed and electronically signed by: NATASHA SAAVEDRA MD on Jan 09 2025 9:37AM [facility] DIVISION OF RADIOLOGY * * *Final Report* [...] the right hemithorax DIVISION OF RADIOLOGY Provider, [facility] - 01/09/2025 * * *Final Report* [...] No radiographic evidence of acute osseous injury. Executor Of Estate: [facility] Transcribe Date/Time: Jan 09 2025 9:36A Dictated by : NATASHA SAAVEDRA MD This examination was interpreted and the report reviewed and electronically signed by: NATASHA SAAVEDRA MD on Jan 09 2025 9:37AM [facility] XR WRIST 3V PA/LAT/OBL RTon 01-09-2025 XR WRIST 3V PA/LAT/OBL RT Normal [facility] XR Wrist - right PA and Late [...] the ulnar styloid. DIVISION OF RADIOLOGY Provider, [facility] - 01/09/2025 * * *Final Report* [...] No radiographic evidence of acute osseous injury. Executor Of Estate: [employer] Transcribe Date/Time: Jan 09 2025 9:33A Dictated by : NATASHA SAAVEDRA MD This examination was interpreted and the report reviewed and electronically signed by: NATASHA SAAVEDRA MD on Jan 09 2025 9:35AM EST [facility] CNOVon 12-05-2024 CNOV Normal [facility] CNPNon 12-05-2024 CNPN Normal [facility] CNOVon 11-25-2024 CNOV Normal [facility] CNOV Normal [facility] CNOVon 11-23-2024 CNOV Normal [facility] CNPTOUTREACHon 11-18-2024 CNPTOUTREACH Normal [facility] CNPTOUTREACHon 11-14-2024 CNPTOUTREACH Normal [facility] CBC W Auto Differential pane l (Bld)on 11-13-2024 Basophils (Bld) [#/Vol] 0.04 10*3/uL Normal <0.11 [facility] Comment on above: Order Comment: Speci men Type: BLOOD SPECIMENOrdering Facility: [facility] Address: [address] [place] [address] Performed By: #### 5 7021-8 ####[facility]ATORYCLIA [id number] [place] [address] [place] Basophils/100 WBC (Bld) 0.6 % Normal [facility] Comment on above: Order Comment: Speci men Type: BLOOD SPECIMENOrdering Facility: [facility] Address: [address] [place] [address] Performed By: #### 5 7021-8 ####[facility] LABORATORYCLIA [id number] [place] [address] [place] Differential cell count method Nom (Bld) Auto Normal [facility] Comment on above: Order Comment: Speci men Type: BLOOD SPECIMENOrdering Facility: [facility] Address: [address] [place] [address] Performed By: #### 5 7021-8 ####[facility] LABORATORYCLIA [id number] [place] [address] [place] Eosinophils (Bld) [#/Vol] 0.27 10*3/uL Normal <0.46 [facility] Comment on above: Order Comment: Speci men Type: BLOOD SPECIMENOrdering Facility: [facility] Address: [address] [place] [address] Performed By: #### 5 7021-8 ####[facility] LABORATORYCLIA [id number] [address] [place] Eosinophils/100 WBC (Bld) 3.9 % Normal [facility] Comment on above: Order Comment: Speci men Type: BLOOD SPECIMENOrdering Facility: [facility] Address: [address] [place] [address] Performed By: #### 5 7021-8 ####[facility] LABORATORYIA [id number] [address] [place] Erythrocyte distribution width (RBC) [Ratio] 12.8 % Normal 11.5-15.0 [facility] Comment on above: Order Comment: Speci men Type: BLOOD SPECIMENOrdering Facility: [facility] Address: [address] [place] [address] Performed By: #### 5 7021-8 ####[facility] LABORATORYIA [id number] [address] STATES [facility] Hematocrit (Bld) [Volume fraction] 40.7 % Normal 39.0-51.0 [facility] Comment on above: Order Comment: Speci men Type: BLOOD SPECIMENOrdering Facility: [facility] Address: [address] [place] [address] Performed By: #### 5 7021-8 ####[facility] LABORATORYIA [id number] [place] [address] [place] Hemoglobin (Bld) [Mass/Vol] 13.6 g/dL Normal 13.0-17.0 [facility] Comment on above: Order Comment: Speci men Type: BLOOD SPECIMENOrdering Facility: [facility] Address: [address] [place] [address] Performed By: #### 5 7021-8 ####[facility] LABORATORYCLIA [id number] [place] [address] [place] Immature granulocytes (Bld) [#/Vol] 10*3/uL Normal <0.10 [facility] Comment on above: Order Comment: Speci men Type: BLOOD SPECIMENOrdering Facility: [facility] Address: [address] [place] [address] Performed By: #### 5 7021-8 ####[facility] LABORATORYCLIA [id number] [address] Immature granulocytes/100 WBC (Bld) 0.3 % Normal [facility] Comment on above: Order Comment: Speci men Type: BLOOD SPECIMENOrdering Facility: [facility] Address: [address] [place] [address] Performed By: #### 5 7021-8 ####[facility] LABORATORYIA [id number] [address] Lymphocytes (Bld) [#/Vol] 1.94 10*3/uL Normal 1.00-4.00 [facility] Comment on above: Order Comment: Speci men Type: BLOOD SPECIMENOrdering Facility: [facility] Address: [address] [place] [address] Performed By: #### 5 7021-8 ####[facility] LABORATORYIA [id number] [address] Lymphocytes/100 WBC (Bld) 28.1 % Normal [facility] Comment on above: Order Comment: Speci men Type: BLOOD SPECIMENOrdering Facility: [facility] Address: [address] [place] [address] Performed By: #### 5 7021-8 ####[facility] LABORATORYIA [id number] [address] [place] MCH (RBC) [Entitic mass] 29.5 pg Normal 26.0-34.0 [facility] Comment on above: Order Comment: Speci men Type: BLOOD SPECIMENOrdering Facility: [facility] Address: [address] [place] [address] Performed By: #### 5 7021-8 ####JYOTIJERSON [facility] LABORATORYIA [id number] [address] STATES [facility] MCHC (RBC) [Mass/Vol] 33.4 g/dL Normal 30.5-36.0 [facility] Comment on above: Order Comment: Speci men Type: BLOOD SPECIMENOrdering Facility: [facility] Address: [address] [place] [address] Performed By: #### 5 7021-8 ####JYOTIJERSON [facility] LABORATORYIA [id number] [place] [address] [place] MCV (RBC) [Entitic vol] 88.3 fL Normal 80.0-100.0 [facility] Comment on above: Order Comment: Speci men Type: BLOOD SPECIMENOrdering Facility: [facility] Address: [address] [place] [address] Performed By: #### 5 7021-8 ####JYOTIJERSON [facility] LABORATORYIA [id number] [address] [place] Monocytes (Bld) [#/Vol] 0.74 10*3/uL Normal <0.87 [facility] Comment on above: Order Comment: Speci men Type: BLOOD SPECIMENOrdering Facility: [facility] Address: [address] [place] [address] Performed By: #### 5 7021-8 ####JILLESTRELLA [facility] LABORATORYCLIA [id number] [address] Monocytes/100 WBC (Bld) 10.7 % Normal [facility] Comment on above: Order Comment: Speci men Type: BLOOD SPECIMENOrdering Facility: [facility] Address: [address] [place] [address] Performed By: #### 5 7021-8 ####PAM [facility] LABORATORYCLIA [id number] [place] [address] [place] Neutrophils (Bld) [#/Vol] 3.89 10*3/uL Normal 1.45-7.50 [facility] Comment on above: Order Comment: Speci men Type: BLOOD SPECIMENOrdering Facility: [facility] Address: [address] [place] [address] Performed By: #### 5 7021-8 ####JYOTIJERSON [facility] LABORATORYCLIA [id number] [place] [address] [place] Neutrophils/100 WBC (Bld) 56.4 % Normal [facility] Comment on above: Order Comment: Speci men Type: BLOOD SPECIMENOrdering Facility: [facility] Address: [address] [place] [address] Performed By: #### 5 7021-8 ####JILLJERSON [facility] LABORATORYCLIA [id number] [place] [address] [place] Nucleated RBC (Bld) [#/Vol] 10*3/uL Normal <0.01 [facility] Comment on above: Order Comment: Speci men Type: BLOOD SPECIMENOrdering Facility: [facility] Address: [address] [place] [address] Performed By: #### 5 7021-8 ####JILLESTRELLA [facility] LABORATORYCLIA [id number] [address] [place] Nucleated RBC/100 WBC (Bld) [Ratio] 0.0 /100 WBC Normal [facility] Comment on above: Order Comment: Speci men Type: BLOOD SPECIMENOrdering Facility: [facility] Address: [address] [place] [address] Performed By: #### 5 7021-8 ####JILLJERSON [facility] LABORATORYIA [id number] [address] [place] Platelet mean volume (Bld) [Entitic vol] 10.1 fL Normal 9.0-12.7 [facility] Comment on above: Order Comment: Speci men Type: BLOOD SPECIMENOrdering Facility: [facility] Address: [address] [place] [address] Performed By: #### 5 7021-8 ####PAM [facility] LABORATORYCLIA [id number] [place] [address] [facility] Platelets (Bld) [#/Vol] 225 10*3/uL Normal 150-400 [facility] Comment on above: Order Comment: Speci men Type: BLOOD SPECIMENOrdering Facility: [facility] Address: [address] [place] [address] Performed By: #### 5 7021-8 ####PAM [facility] LABORATORYCLIA [id number] [address] RBC (Bld) [#/Vol] 4.61 10*6/uL Normal 4.20-6.00 [facility] Comment on above: Order Comment: Speci men Type: BLOOD SPECIMENOrdering Facility: [facility] Address: [address] [place] [address] Performed By: #### 5 7021-8 ####PAM [facility] HOSPITALIA [id number] [address] WBC (Bld) [#/Vol] 6.90 10*3/uL Normal 3.70-11.00 [facility] Comment on above: Order Comment: Speci men Type: BLOOD SPECIMENOrdering Facility: [facility] Address: [address] [place] [address] Performed By: #### 5 7021-8 ####PAM [facility] LABORATORYIA [id number] [address] Comprehensive metabolic 2000 panelon 11-13-2024 Albumin [Mass/Vol] 3.7 g/dL Low 3.9-4.9 [facility] Comment on above: Order Comment: Speci men Type: BLOOD SPECIMENOrdering Facility: [facility] Address: [address] [place] [address] Performed By: #### 1 9123-9, [id number], 3040-3, 33389-9 ####PAM [facility] LABORATORYCLIA [id number] [place] [address] [place] ALP [Catalytic activity/Vol] 95 U/L Normal 38-113 [facility] Comment on above: Order Comment: Speci men Type: BLOOD SPECIMENOrdering Facility: [facility] Address: [address] [place] [address] Performed By: #### 1 9123-9, [id number], 3040-3, 34671-3 ####JLILESTRELLA [facility] LABORATORYCLIA [id number] [place] [address] [place] ALT [Catalytic activity/Vol] 11 U/L Normal 10-54 [facility] Comment on above: Order Comment: Speci men Type: BLOOD SPECIMENOrdering Facility: [facility] Address: [address] [place] [address] Performed By: #### 1 9123-9, [id number], 3040-3, 61905-9 ####JILLJERSON [facility] HOSPITALIA [id number] [place] [address] [place] Anion gap [Moles/Vol] 9 mmol/L Normal 8-15 [facility] Comment on above: Order Comment: Speci men Type: BLOOD SPECIMENOrdering Facility: [facility] Address: [address] [place] [address] Performed By: #### 1 9123-9, [id number], 3040-3, 38575-2 ####JILLESTRELLA [facility] LABORATORYCLIA [id number] [place] [address] [place] AST [Catalytic activity/Vol] 15 U/L Normal 14-40 [facility] Comment on above: Order Comment: Speci men Type: BLOOD SPECIMENOrdering Facility: [facility] Address: [address] [place] [address] Performed By: #### 1 9123-9, [id number], 3040-3, 42366-4 ####PAM [facility] LABORATORYCLIA [id number] [place] [address] [place] Bilirubin [Mass/Vol] 0.4 mg/dL Normal 0.2-1.3 [facility] Comment on above: Order Comment: Speci men Type: BLOOD SPECIMENOrdering Facility: [facility] Address: [address] [place] [address] Performed By: #### 1 9123-9, [id number], 3040-3, 95812-2 ####PAM [facility] LABORATORYCLIA [id number] [place] [address] [place] Calcium [Mass/Vol] 9.1 mg/dL Normal 8.5-10.2 [facility] Comment on above: Order Comment: Speci men Type: BLOOD SPECIMENOrdering Facility: [facility] Address: [address] [place] [address] Performed By: #### 1 9123-9, [id number], 3040-3, 61570-1 ####PAM [facility] LABORATORYCLIA [id number] [place] [address] [place] Chloride [Moles/Vol] 106 mmol/L Normal 98-107 [facility] Comment on above: Order Comment: Speci men Type: BLOOD SPECIMENOrdering Facility: [facility] Address: [address] [place] [address] Performed By: #### 1 9123-9, [id number], 3040-3, 32729-4 ####PAM [facility] LABORATORYCLIA [id number] [place] [address] [place] CO2 [Moles/Vol] 26 mmol/L Normal 22-30 [facility] Comment on above: Order Comment: Speci men Type: BLOOD SPECIMENOrdering Facility: [facility] Address: [address] [place] [address] Performed By: #### 1 9123-9, [id number], 3040-3, 02496-9 ####PAM [facility] LABORATORYCLIA [id number] [place] [address] [place] Creatinine [Mass/Vol] 1.25 mg/dL High 0.73-1.22 [facility] Comment on above: Order Comment: Raghu sandoval Type: BLOOD SPECIMENOrdering Facility: [facility] Address: [address] [place] [address] Performed By: #### 1 9123-9, BMI9649, 3040-3, 01826-4 ####PAM [facility] LABORATORYCLIA [id number] [place] [address] [place] [facility] Creatinine and Glomerular filtration rate.predicted panel (S/P/Bld) 58 mL/min/1.73m??? Low >=60 [facility] Comment on above: Order Comment: Raghu sandoval Type: BLOOD SPECIMENOrdering Facility: [facility] Address: [address] [place] [address] Result Comment: Carlita mated Glomerular Filtration Rate [...] actual GFR. Performed By: #### 1 9123-9, [id number], 3040-3, 95795-4 ####PAM [facility] LABORATORYCLIA [id number] [place] [address] [place] Glucose [Mass/Vol] 96 mg/dL Normal 74-99 [facility] Comment on above: Order Comment: Raghu sandoval Type: BLOOD SPECIMENOrdering Facility: [facility] Address: [address] [place] [address] Result Comment: The [place] Diabetes Association (ADA) provides guidance for cutoff [...] Standards of Medical Care in Diabetes 2016, [place] [employer]. Diabetes Care. 2016.39(Suppl 1). Performed By: #### 1 9123-9, TCG4847, 3040-3, 78528-4 ####PAM [facility] LABORATORYCLIA [id number] [place] [address] [place] Potassium [Moles/Vol] 3.8 mmol/L Normal 3.7-5.1 [facility] Comment on above: Order Comment: Speci men Type: BLOOD SPECIMENOrdering Facility: [facility] Address: [address] [place] [address] Performed By: #### 1 9123-9, [id number], 3040-3, 15063-4 ####PAM [facility] LABORATORYCLIA [id number] [place] [address] [place] Protein [Mass/Vol] 6.7 g/dL Normal 6.3-8.0 [facility] Comment on above: Order Comment: Raghu sandoval Type: BLOOD SPECIMENOrdering Facility: [facility] Address: [address] [place] [address] Performed By: #### 1 9123-9, SPE6282, 3040-3, 70214-2 ###BRONSON [facility] LABORATORYCLIA [id number] [place] [address] [place] Sodium [Moles/Vol] 141 mmol/L Normal 136-144 [facility] Comment on above: Order Comment: Raghu sandoval Type: BLOOD SPECIMENOrdering Facility: [facility] Address: [address] [place], [place] [address] Performed By: #### 1 9123-9, [id number], 3040-3, 46166-8 ####PAM [facility] LABORATORYCLIA [id number] [place] [address] [place] Urea nitrogen [Mass/Vol] 16 mg/dL Normal 9-24 [facility] Comment on above: Order Comment: Speci men Type: BLOOD SPECIMENOrdering Facility: [facility] Address: [address] [place] [address] Performed By: #### 1 9123-9, [id number], 3040-3, 83464-2 ###BRONSON [facility] LABORATORYCLIA [id number] [place] [address] [place] [id number] 11-13-2024 ECG01 Normal [facility] ED NOTEon 11-13-2024 ED NOTE Normal [facility] ED PROV NOTEon 11-13-2024 ED PROV NOTE Normal [facility] HIGH SENSITIVITY TROPONIN T (INITIAL)on 11-13-2024 Troponin T.cardiac High sensitivity method [Mass/Vol] 14 ng/L High <12 [facility] Comment on above: Order Comment: Speci men Type: BLOOD SPECIMENOrdering Facility: [facility] Address: [address] [place] [address] Performed By: #### 1 9123-9, [id number], [facility]03, 49160-0 ###BRONSON [facility] LABORATORYCLIA [id number] [place] [address] [place] HIGH SENSITIVITY TROPONIN T (SECOND)on 11-13-2024 Troponin T.cardiac High sensitivity method [Mass/Vol] 13 ng/L High <12 [facility] Comment on above: Order Comment: Speci men Type: BLOOD SPECIMENOrdering Facility: [facility] Address: [address] [place] [address] Performed By: #### L [id number] ####PAM [facility] LABORATORYCLIA [id number] [place] [address] [place] HIGH SENSITIVITY TROPONIN T (THIRD) 3 HRS AFTER INITIALon 11-13-2024 Troponin T.cardiac High sensitivity method [Mass/Vol] 12 ng/L High <12 [facility] Comment on above: Order Comment: Speci men Type: BLOOD SPECIMENOrdering Facility: [facility] Address: [address] [place] [address] Performed By: #### L [id number] ####PAM [facility] LABORATORYCLIA [id number] [place] [address] [place] Lipase SerPl-cCncon 11-13-19 25 Lipase [Catalytic activity/Vol] 11 U/L Low 16-61 [facility] Comment on above: Order Comment: Speci men Type: BLOOD SPECIMENOrdering Facility: [facility] Address: [address] [place] [address] Performed By: #### 1 9123-9, [id number], [facility]03, 57121-7 ####BRUNESTRELLA [facility] LABORATORYCLIA [id number] [place] [address] [place] [facility] [place] Magnesium SerPl-mCncon 11-13 Magnesium [Mass/Vol] 1.9 mg/dL Normal 1.7-2.3 [facility] Comment on above: Order Comment: Speci men Type: BLOOD SPECIMENOrdering Facility: [facility] Address: [address] [place] [address] Performed By: #### 1 9123-9, [id number], [facility]3, 36428-8 ####PAM [facility] LABORATORYIA [id number] [place] [address] [place] XR ABDOMEN 1V SUPINEon 11-13 XR ABDOMEN 1V SUPINE Normal [facility] XR CHEST 2V FRONTAL/LATon XR CHEST 2V FRONTAL/LAT Normal [facility] CNOVon 11-10-2024 CNOV Normal [facility] 102on 11-07-2024 102 HNO ID: [id number] Author: ANA ROSA TAYLOR HDA Service: ? Author Type: ? Type: 102 Filed: 11/07/2024 09:28 Note Text: Code Status: Full Code Normal [facility] CNPTOUTREACHon 11-03-2024 CNPTOUTREACH Normal [facility] [id number] 10-27-2024 [id number] Normal [facility] CNPNon 10-27-2024 CNPN Normal [facility] CNPTOUTREACHon 10-27-2024 CNPTOUTREACH Normal [facility] CNTHERAPYon 10-27-2024 CNTHERAPY Normal [facility] THERAPY NTon 10-27-2024 THERAPY NT Normal [facility] CNPNon 10-26-2024 CNPN Normal [facility] CNOVon 10-24-2024 CNOV Normal [facility] CNCOon 10-21-2024 CNCO Letter Text Normal [facility] CNPTOUTREACHon 10-21-2024 CNPTOUTREACH Normal [facility] CASE MANAGEMon 10-20-2024 CASE MANAGEM HNO ID: [id number] Author: STEPH MITCHELL RN Service: ? Author [...] the inter-professional team: Yes Name of Caregiver: [facility] Transportation Arrangements Transportation Arrangements: Car Handoff Communication: Handoff to: Primary Care Physician Primary Care Physician Name/Phone: Adama Mendoza MD, Summary of care sent to PCP and [facility]. Additional Information: Discharge Information Row Name Admission (Current) from 10/15/2024 in [facility] Start of Care -- Within 48 hours of discharge. DC order written for patient to return home with [facility]. He will be staying at his son's house upon DC. [facility] orders in EPIC for [facility]. Son to transport. SIGNATURE: Steph Mitchell RN PATIENT NAME: Lory Johnson DATE: October 20, 2024 TIME: 1:49 PM Normal [facility] CASE MANAGEM HNO ID: [id number] Author: STEPH MITCHELL RN Service: ? Author Type: Registered Nurse Type: Care Mgt Progress Note Filed: 10/20/2024 12:39 Note Text: CARE MANAGEMENT PROGRESS NOTE SERVICE DATE: 10/20/2024 SERVICE TIME: 12:11 PM LOS: 5 days Needs Prior to Discharge: Accepting Facility;Home Care Order [place] of Choice Given: Yes Level of Care Discussed: Home Care (Explained to patient's son, no preference on agency) IMM Follow Up Copy Given: Yes Copy given to:: Patient [place] Name/Relationship: airam Bauer Method: By Phone EMR reviewed. PT eval pending. OT recommending [facility]. RNCM spoke to patient's son, Tim, to discuss DC planning. Referral sent to [facility], awaiting response. Will NEED F2F. CM assigned will continue to follow for DC planning needs. [facility] can accept. SIGNATURE: Steph Mitchell RN PATIENT NAME: Lory Johnson DATE: October 20, 2024 TIME: 12:11 PM [facility] 10-20-2024 [facility] HNO ID: [id number] Author: SOTO VALDERRAMA MD Service: Hospital Medicine [...] Provider: Soto Valderrama MD Primary Service: 2, [facility] MY CONDITION AT DISCHARGE: Stable REASON I [...] Patt for psychiatry (patient follows at the [facility]) PROCEDURES: NONE CODE STATUS: Full code ASSESSMENT/PLAN [...] -- 23. (more content not included)... Normal [facility] CNPNon 10-20-2024 CNPN Normal [facility] CONSULT PROGon 10-20-2024 CONSULT PROG HNO ID: [id number] Author: MERVIN BELTRE APRN.MICROSOFT DEVELOPER Service: Psychiatry Author Type: Nurse Practitioner Type: [...] B6) 150 mg ORAL DAILY GlaMervin roy, USER SUPPORT ANALYST SUPERVISOR.MICROSOFT DEVELOPER 150 mg at 10/20/24 1319 traZODone 50 mg tab(s) (DESYREL) 50 mg ORAL AT BEDTIME GlaMervin roy, USER SUPPORT ANALYST SUPERVISOR.MICROSOFT DEVELOPER 50 mg at 10/19/242019 benzonatate 100 mg cap(s) (TESSALON PERLE) 100 mg ORAL TID Mervin Beltre, USER SUPPORT ANALYST SUPERVISOR.MICROSOFT DEVELOPER 100 mg at 10/20/[address] 125 mg tab(s) (DEPAKOTE) 125 mg ORAL AT BEDTIME GlaMervin roy, USER SUPPORT ANALYST SUPERVISOR.MICROSOFT DEVELOPER 125 mg at 10/19/24 2019 zinc sulfate 220 mg capsule(s) 220 mg ORAL DAILY Mervin Beltre, USER SUPPORT ANALYST SUPERVISOR.MICROSOFT DEVELOPER 220 mg at 10/20/24 0952 traZODone 12.5 mg tab(s) (DESYREL) 12.5 mg ORAL QID PRN Mervin Beltre, USER SUPPORT ANALYST SUPERVISOR.MICROSOFT DEVELOPER 12.5 mg at 10/19/24 0245 phosphorus 250 [...] 81 mg tab(s) 81 mg ORAL DAILY Nubai Salinas MD 81 mg at 10/20/24 0952 [...] 2008 10/20/24 (more content not included)... Normal [facility] CT CHEST WO IVCONon 10-20-19 CT CHEST WO IVCON * * *Final Report* * * DATE OF EXAM: Oct 20 2024 9:17AM [facility] 0541 - CT CHEST WO IVCON / [...] multifocal calcific pleural plaques. Moderate hiatal hernia. [facility]utor Of Estate[facility] Transcribe Date/Time: Oct 20 2024 9:46A Dictated by : FELICIA GRAHAM MD This examination was interpreted and the report reviewed and electronically signed by: FELICIA GRAHAM MD on Oct 20 2024 10:01AM EST [id number] Normal [facility] THERAPY NTon 10-20-2024 THERAPY NT HNO ID: [id number] Author: NELIA LYNN OTR/Jorge L Service: Occupational Therapy Author Type: Occupational Therapist Type: Therapy (PT/OT/Speech/Resp) Filed: 10/20/2024 08:58 Note Text: Summary: OT eval Occupational Therapy Evaluation Summary SERVICE DATE: 10/20/2024 SERVICE TIME: 748 to 826 ROOM: [place] [address] OT 6 Clicks Score: 18 DISCHARGE RECOMMENDATIONS [...] Redirected with Cues Memory Deficits: Short Term, Detention, Recall of Medical/Personal History, Recall of Recent Events Executive Function Deficits: Judgement, Insight to Deficits Cognitive Activities Performed: re directed, re oriented, THERAPY DIAGNOSIS Reduced mobility-other, Decreased activities of daily living (ADL), Signs and Symptoms Involving Cognitive Functions and Awareness TREATMENT INTERVENTIONS Evaluation, Therapeutic Activity (58335) Timed Code Treatment (minutes): 23 Skilled Treatment [...] Assistance, Additional Infor (more content not included)... [facility] 10-19-2024 [facility] HNO ID: [id number] Author: BRIANNA ROBERTSON CT Service: Radiology Author [...] PATIENT PRESENTS WITH AN IMPLANTABLE OR ATTACHED ORNAMENT STITCHER: No RADIOLOGY DEPARTMENT: MR; Exam(s) Completed: Head: Routine Brain PERIPHERAL IV DATA: Not applicable SIGNED BY: YOLIE SAPP October 19, 2024 3:56 PM [facility] HNO ID: [id number] Author: JENS RODRIGUEZ Tech Service: ? Author Type: Automobile Dealer Type: Allied Health Filed: 10/19/2024 01:03 Note [...] PATIENT PRESENTS WITH AN IMPLANTABLE OR ATTACHED ORNAMENT STITCHER: No RADIOLOGY DEPARTMENT: General X-ray: Exam(s) Completed: Chest X-Ray PERIPHERAL IV DATA: Not applicable SIGNED BY: Darling Liu October 19, 2024 1:02 AM [facility] CASE MANAGEMon 10-19-2024 CASE MANAGEM HNO ID: [id number] Author: XIN BOLIVAR RN Service: ? Author [...] DATE: October 19, 2024 TIME: 4:45 PM [facility] CBC W Auto Differential pane l (Bld)on 10-19-2024 Basophils (Bld) [#/Vol] 0.04 10*3/uL Normal <0.11 [facility] Comment on above: Order Comment: Speci men Type: BLOOD SPECIMENOrdering Facility: [facility] Address: [address] [place] [address] Performed By: #### 5 7021-8 ####[facility] LABORATORYCLIA [id number] [address] STATES [facility] Basophils/100 WBC (Bld) 0.5 % Normal [facility] Comment on above: Order Comment: Speci men Type: BLOOD SPECIMENOrdering Facility: [facility] Address: [address] [place] [address] Performed By: #### 5 7021-8 ####[facility] LABORATORYCLIA [id number] [place] [address] [place] Differential cell count method Nom (Bld) Auto Normal [facility] Comment on above: Order Comment: Speci men Type: BLOOD SPECIMENOrdering Facility: [facility] Address: [address] [place] [address] Performed By: #### 5 7021-8 ####[facility] LABORATORYCLIA [id number] [place] [address] [place] Eosinophils (Bld) [#/Vol] 0.14 10*3/uL Normal <0.46 [facility] Comment on above: Order Comment: Speci men Type: BLOOD SPECIMENOrdering Facility: [facility] Address: [address] [place] [address] Performed By: #### 5 7021-8 ####[facility] LABORATORYCLIA [id number] [address] Eosinophils/100 WBC (Bld) 1.7 % Normal [facility] Comment on above: Order Comment: Speci men Type: BLOOD SPECIMENOrdering Facility: [facility] Address: [address] [place] [address] Performed By: #### 5 7021-8 ####[facility] LABORATORYCLIA [id number] [address] [place] [address] [place] Erythrocyte distribution width (RBC) [Ratio] 12.9 % Normal 11.5-15.0 [facility] Comment on above: Order Comment: Speci men Type: BLOOD SPECIMENOrdering Facility: [facility] Address: [address] [place] [address] Performed By: #### 5 7021-8 ####[facility] LABORATORYCLIA [id number] [place] [address] [place] Hematocrit (Bld) [Volume fraction] 39.5 % Normal 39.0-51.0 [facility] Comment on above: Order Comment: Speci men Type: BLOOD SPECIMENOrdering Facility: [facility] Address: [address] [place] [address] Performed By: #### 5 7021-8 ####[facility] LABORATORYCLIA [id number] [place] [address] [place] Hemoglobin (Bld) [Mass/Vol] 13.4 g/dL Normal 13.0-17.0 [facility] Comment on above: Order Comment: Speci men Type: BLOOD SPECIMENOrdering Facility: [facility] Address: [address] [place] [address] Performed By: #### 5 7021-8 ####[facility] LABORATORYCLIA [id number] [place] [address] [place] Immature granulocytes (Bld) [#/Vol] 10*3/uL Normal <0.10 [facility] Comment on above: Order Comment: Speci men Type: BLOOD SPECIMENOrdering Facility: [facility] Address: [address] [place] [address] Performed By: #### 5 7021-8 ####[facility] LABORATORYCLIA [id number] [place] [address] [place] Immature granulocytes/100 WBC (Bld) 0.1 % Normal [facility] Comment on above: Order Comment: Speci men Type: BLOOD SPECIMENOrdering Facility: [facility] Address: [address] [place] [address] Performed By: #### 5 7021-8 ####[facility] LABORATORYCLIA [id number] [place] [address] [place] Lymphocytes (Bld) [#/Vol] 1.96 10*3/uL Normal 1.00-4.00 [facility] Comment on above: Order Comment: Speci men Type: BLOOD SPECIMENOrdering Facility: [facility] Address: [address] [place] [address] Performed By: #### 5 7021-8 ####[facility] LABORATORYCLIA [id number] [address] Lymphocytes/100 WBC (Bld) 24.1 % Normal [facility] Comment on above: Order Comment: Speci men Type: BLOOD SPECIMENOrdering Facility: [facility] Address: [address] [place] [address] Performed By: #### 5 7021-8 ####[facility] LABORATORYCLIA [id number] [address] [place] MCH (RBC) [Entitic mass] 29.9 pg Normal 26.0-34.0 [facility] Comment on above: Order Comment: Speci men Type: BLOOD SPECIMENOrdering Facility: [facility] Address: [address] [place] [address] Performed By: #### 5 7021-8 ####[facility] LABORATORYCLIA [id number] [address] [place] MCHC (RBC) [Mass/Vol] 33.9 g/dL Normal 30.5-36.0 [facility] Comment on above: Order Comment: Speci men Type: BLOOD SPECIMENOrdering Facility: [facility] Address: [address] [place] [address] Performed By: #### 5 7021-8 ####[facility] LABORATORYCLIA [id number] [address] MCV (RBC) [Entitic vol] 88.2 fL Normal 80.0-100.0 [facility] Comment on above: Order Comment: Speci men Type: BLOOD SPECIMENOrdering Facility: [facility] Address: [address] [place] [address] Performed By: #### 5 7021-8 ####[facility] LABORATORYCLIA [id number] [address] [place] Monocytes (Bld) [#/Vol] 0.84 10*3/uL Normal <0.87 [facility] Comment on above: Order Comment: Speci men Type: BLOOD SPECIMENOrdering Facility: [facility] Address: [address] [place] [address] Performed By: #### 5 7021-8 ####[facility] LABORATORYCLIA [id number] [place] [address] [place] Monocytes/100 WBC (Bld) 10.3 % Normal [facility] Comment on above: Order Comment: Speci men Type: BLOOD SPECIMENOrdering Facility: [facility] Address: [address] [place] [address] Performed By: #### 5 7021-8 ####[facility] LABORATORYCLIA [id number] [place] [address] [place] Neutrophils (Bld) [#/Vol] 5.13 10*3/uL Normal 1.45-7.50 [facility] Comment on above: Order Comment: Speci men Type: BLOOD SPECIMENOrdering Facility: [facility] Address: [address] [place] [address] Performed By: #### 5 7021-8 ####[facility] LABORATORYCLIA [id number] [place] [address] [place] Neutrophils/100 WBC (Bld) 63.3 % Normal [facility] Comment on above: Order Comment: Speci men Type: BLOOD SPECIMENOrdering Facility: [facility] Address: [address] [place] [address] Performed By: #### 5 7021-8 ####[facility] LABORATORYCLIA [id number] [place] [address] [place] Nucleated RBC (Bld) [#/Vol] 10*3/uL Normal <0.01 [facility] Comment on above: Order Comment: Speci men Type: BLOOD SPECIMENOrdering Facility: [facility] Address: [address] [place] [address] Performed By: #### 5 7021-8 ####[facility] LABORATORYCLIA [id number] [place] [address] [place] Nucleated RBC/100 WBC (Bld) [Ratio] 0.0 /100 WBC Normal [facility] Comment on above: Order Comment: Speci men Type: BLOOD SPECIMENOrdering Facility: [facility] Address: [address] [place] [address] Performed By: #### 5 7021-8 ####[facility] LABORATORYCLIA [id number] [address] Platelet mean volume (Bld) [Entitic vol] 10.0 fL Normal 9.0-12.7 [facility] Comment on above: Order Comment: Speci men Type: BLOOD SPECIMENOrdering Facility: [facility] Address: [address] [place] [address] Performed By: #### 5 7021-8 ####[facility] LABORATORYCLIA [id number] [address] [place] Platelets (Bld) [#/Vol] 233 10*3/uL Normal 150-400 [facility] Comment on above: Order Comment: Speci men Type: BLOOD SPECIMENOrdering Facility: [facility] Address: [address] [place] [address] Performed By: #### 5 7021-8 ####[facility] LABORATORYCLIA [id number] [place] [address] [place] RBC (Bld) [#/Vol] 4.48 10*6/uL Normal 4.20-6.00 [facility] Comment on above: Order Comment: Speci men Type: BLOOD SPECIMENOrdering Facility: [facility] Address: [address] [place] [address] [place] [address] Performed By: #### 5 7021-8 ####[facility] LABORATORYCLIA [id number] [address] [place] WBC (Bld) [#/Vol] 8.12 10*3/uL Normal 3.70-11.00 [facility] Comment on above: Order Comment: Speci men Type: BLOOD SPECIMENOrdering Facility: [facility] Address: [address] [place] [address] [place] [address] Performed By: #### 5 7021-8 ####[facility] LABORATORYCLIA [id number] [address] CONSULT PROGon 10-19-2024 CONSULT PROG HNO ID: [id number] Author: MERVIN BELTRE APRN.MICROSOFT DEVELOPER Service: Psychiatry Author Type: Nurse Practitioner Type: [...] capsule(s) 220 mg ORAL DAILY Mervin Beltre APRN.MICROSOFT DEVELOPER 220 mg at 10/18/24 1452 traZODone 12.5 mg tab(s) (DESYREL) 12.5 mg ORAL QID PRN Mervin Beltre APRN.MICROSOFT DEVELOPER 12.5 mg at 10/19/24 0245 phosphorus 250 [...] (97.7 ?F) (more content not included)... Normal [facility] MRI BRAIN WO IVCONon 025 MRI BRAIN WO IVCON * * *Final Report* * * DATE OF EXAM: Oct 19 2024 4:05PM [facility] 0294 - MRI BRAIN WO IVCON / [...] background chronic microvascular change. No acute abnormalities. Executor Of Estate: [facility] EDGEWOODBecky Transcribe Date/Time: Oct 19 2024 4:09P Dictated by : CAROLEE CRAIG MD This examination was interpreted and the report reviewed and electronically signed by: CAROLEE CRAIG MD on Oct 19 2024 4:13PM EST [id number] Normal [facility] Magnesium SerPl-mCncon 10-19 Magnesium [Mass/Vol] 2.1 mg/dL Normal 1.7-2.3 [facility] Comment on above: Order Comment: Raghu sandoval Type: BLOOD SPECIMENOrdering Facility: [facility] Address: [address] [place] [address] Performed By: #### 2 4362-6, ####[facility]PH LABORATORYCLIA [id number] [place] [address] [place] Renal function 2000 panelon 10-19-2024 Albumin [Mass/Vol] 3.6 g/dL Low 3.9-4.9 [facility] Comment on above: Order Comment: Raghu sandoval Type: BLOOD SPECIMENOrdering Facility: [facility] Address: [address] [place] [address] Performed By: #### 2 4362, ####[facility] LABORATORYCLIA [id number] [place] [address] [place] Anion gap [Moles/Vol] 10 mmol/L Normal 8-15 [facility] Comment on above: Order Comment: Speci men Type: BLOOD SPECIMENOrdering Facility: [facility] Address: [address] [place] [address] Performed By: #### 2 4362-6, ####PUT[facility] LABORATORYCLIA [id number] [place] [address] [place] Calcium [Mass/Vol] 9.3 mg/dL Normal 8.5-10.2 [facility] Comment on above: Order Comment: Speci men Type: BLOOD SPECIMENOrdering Facility: [facility] Address: [address] [place] [address] Performed By: #### 2 4366, ####PUT[facility] LABORATORYCLIA [id number] [place] [address] [place] Chloride [Moles/Vol] 107 mmol/L Normal 98-107 [facility] Comment on above: Order Comment: Speci men Type: BLOOD SPECIMENOrdering Facility: [facility] Address: [address] [place] [address] Performed By: #### 2 4366, ####[facility] LABORATORYCLIA [id number] [place] [address] [place] CO2 [Moles/Vol] 25 mmol/L Normal 22-30 [facility] Comment on above: Order Comment: Speci men Type: BLOOD SPECIMENOrdering Facility: [facility] Address: [address] [place] [address] Performed By: #### 2 4362-6, ####[facility] LABORATORYCLIA [id number] [place] [address] [place] Creatinine [Mass/Vol] 1.08 mg/dL Normal 0.73-1.22 [facility] Comment on above: Order Comment: Speci men Type: BLOOD SPECIMENOrdering Facility: [facility] Address: [address] [place] [address] Performed By: #### 2 4362-6, ####PUTNAM LABORATORYCLIA [id number] [place] [id number] [facility] Creatinine and Glomerular filtration rate.predicted panel (S/P/Bld) 69 mL/min/1.73m??? Normal >=60 [facility] Comment on above: Order Comment: Raghu sandoval Type: BLOOD SPECIMENOrdering Facility: [facility] Address: [address] [place] [address] Result Comment: Carlita mated Glomerular Filtration Rate [...] Performed By: #### 2 4362-6, ####PUTNAM LABORATORYCLIA [id number] [place] [address] [place] [facility] Glucose [Mass/Vol] 113 mg/dL High 74-99 [facility] Comment on above: Order Comment: Raghu sandoval Type: BLOOD SPECIMENOrdering Facility: [facility] Address: [address] [place] [address] Result Comment: The [place] Diabetes Association (ADA) provides guidance for cutoff [...] Standards of Medical Care in Diabetes 2016, [place] [employer]. Diabetes Care. 2016.39(Suppl 1). Performed By: #### 2 4362-6, ####PUTNAM LABORATORYCLIA [id number] [place] [address] [place] Phosphate [Mass/Vol] 3.2 mg/dL Normal 2.7-4.8 [facility] Comment on above: Order Comment: Speci men Type: BLOOD SPECIMENOrdering Facility: [facility] Address: [facility] [place] [address] Performed By: #### 2 4362-6, ####PUT[facility] LABORATORYCLIA [id number] [place] [address] [place] Potassium [Moles/Vol] 4.0 mmol/L Normal 3.7-5.1 [facility] Comment on above: Order Comment: Speci men Type: BLOOD SPECIMENOrdering Facility: [facility] Address: [address] [place] [address] Performed By: #### 2 4362-6, ####PUT[facility] LABORATORYCLIA [id number] [place] [address] [place] Sodium [Moles/Vol] 142 mmol/L Normal 136-144 [facility] Comment on above: Order Comment: Speci men Type: BLOOD SPECIMENOrdering Facility: [facility] Address: [address] [place] [address] Performed By: #### 2 4362-6, ####PUT[facility] LABORATORYCLIA [id number] [place] [address] [place] Urea nitrogen [Mass/Vol] 14 mg/dL Normal 9-24 [facility] Comment on above: Order Comment: Speci men Type: BLOOD SPECIMENOrdering Facility: [facility] Address: [address] [place] [address] Performed By: #### 2 4362-6, ####PUTNAM LABORATORYCLIA [id number] [place] [id number] [place] XR CHEST [...] acute process, redemonstration of calcified pleural plaques. Executor Of Estate: PSCB Transcribe Date/Time: Oct 19 2024 1:47A Dictated by : NANCY RIEVRA MD This examination was interpreted and the report reviewed and electronically signed by: NANCY RIVERA MD on Oct 19 2024 1:49AM EST [id number] Normal [facility] CASE MANAGEMon 10-18-2024 CASE MANAGEM HNO ID: [id number] Author: DARBY DELUCA RN Service: ? Author Type: Registered Nurse Type: Care Mgt Progress Note Filed: 10/18/2024 14:55 Note Text: CARE MANAGEMENT PROGRESS NOTE SERVICE DATE: 10/18/2024 SERVICE TIME: 2:36 PM LOS: 3 days 10/15/24 Admission [facility] Consults: [facility] O2: room air Diet: regular + supplements Mervin Glanc USER SUPPORT ANALYST SUPERVISOR MI[employer]OSO[employer] DEVELOPER following/medication adjustments Anticipated Discharge Plan: Home with Family (Lives at Home with spouse but staying with son prior to admission.) Needs Prior to Discharge: To Be Determined Dept to Follow. SIGNATURE: Darby Deluca RN PATIENT NAME: Lory Johnson DATE: October 18, 2024 TIME: 2:36 PM Normal [facility] CBC panel Auto (Bld)on 10-18 Erythrocyte distribution width (RBC) [Ratio] 13.0 % Normal 11.5-15.0 [facility] Comment on above: Order Comment: Speci men Type: BLOOD SPECIMENOrdering Facility: [facility] Address: [address] [place] [address] Performed By: #### 5 8410-2 ####PUTNAM LABORATORYCLIA [id number] [address] Hematocrit (Bld) [Volume fraction] 37.6 % Low 39.0-51.0 [facility] Comment on above: Order Comment: Speci men Type: BLOOD SPECIMENOrdering Facility: [facility] Address: [address] [place] [address] Performed By: #### 5 8410-2 ####PUTNAM LABORATORYCLIA [id number] [address] Hemoglobin (Bld) [Mass/Vol] 13.1 g/dL Normal 13.0-17.0 [facility] Comment on above: Order Comment: Speci men Type: BLOOD SPECIMENOrdering Facility: [facility] Address: [address] [place] [address] Performed By: #### 5 8410-2 ####PUTNAM LABORATORYCLIA [id number] [address] MCH (RBC) [Entitic mass] 30.1 pg Normal 26.0-34.0 [facility] Comment on above: Order Comment: Speci men Type: BLOOD SPECIMENOrdering Facility: [facility] Address: [address] [place] [address] Performed By: #### 5 8410-2 ####PUTNAM LABORATORYCLIA [id number] [address] MCHC (RBC) [Mass/Vol] 34.8 g/dL Normal 30.5-36.0 [facility] Comment on above: Order Comment: Speci men Type: BLOOD SPECIMENOrdering Facility: [facility] Address: [address] [place] [address] Performed By: #### 5 8410-2 ####PUTNAM LABORATORYCLIA [id number] [address] MCV (RBC) [Entitic vol] 86.4 fL Normal 80.0-100.0 [facility] Comment on above: Order Comment: Speci men Type: BLOOD SPECIMENOrdering Facility: [facility] Address: [address] [place] [address] Performed By: #### 5 8410-2 ####PUTNAM LABORATORYCLIA [id number] [place] [address] [place] Nucleated RBC (Bld) [#/Vol] 10*3/uL Normal <0.01 [facility] Comment on above: Order Comment: Speci men Type: BLOOD SPECIMENOrdering Facility: [facility] Address: [address] [place] [address] Performed By: #### 5 8410-2 ####PUTNAM LABORATORYCLIA [id number] [place] [address] [place] Platelet mean volume (Bld) [Entitic vol] 10.2 fL Normal 9.0-12.7 [facility] Comment on above: Order Comment: Speci men Type: BLOOD SPECIMENOrdering Facility: [facility] Address: [address] [place] [address] Performed By: #### 5 8410-2 ####PUTNAM LABORATORYCLIA [id number] [address] [place] Platelets (Bld) [#/Vol] 212 10*3/uL Normal 150-400 [facility] Comment on above: Order Comment: Speci men Type: BLOOD SPECIMENOrdering Facility: [facility] Address: [address] [place] [address] Performed By: #### 5 8410-2 ####PUTNAM LABORATORYCLIA [id number] [place] [address] [place] RBC (Bld) [#/Vol] 4.35 10*6/uL Normal 4.20-6.00 [facility] Comment on above: Order Comment: Speci men Type: BLOOD SPECIMENOrdering Facility: [facility] Address: [address] [place] [address] Performed By: #### 5 8410-2 ####PUTNAM LABORATORYCLIA [id number] [address] [place] WBC (Bld) [#/Vol] 9.46 10*3/uL Normal 3.70-11.00 [facility] Comment on above: Order Comment: Speci men Type: BLOOD SPECIMENOrdering Facility: [facility] Address: [facility] [place] [id number] Performed By: #### 5 8410-2 ####INDY LABORATORYCLIA [id number] [place] [address] [place] CONSULT PROGon 10-18-2024 CONSULT PROG HNO ID: [id number] Author: MERVIN BELTRE APRN.MICROSO[employer] DEVELOPER Service: Psychiatry Author Type: Nurse Practitioner Type: [...] 25 mg ORAL AT BEDTIME Mervin Beltre APRN.MICROSOFT DEVELOPER 25 mg at 10/17/241957 traZODone 25 mg tab(s) (DESYREL) 25 mg ORAL AT BEDTIME PRN Mervin Beltre APRN.MICROSOFT DEVELOPER traZODone 12.5 mg tab(s) (DESYREL) 12.5 mg ORAL QID PRN Mervin Beltre APRN.MICROSOFT DEVELOPER phosphorus 250 mg tab(s) (K PHOS NEUTRAL) [...] Rigidity, Hyperreflexia, or Clonus. Moved Extremities Against Red Devil. Gait / Station: Unable to Examine: Lying in Bed MENTA (more content not included)... Normal [facility] Comprehensive metabolic 2000 panelon 10-18-2024 Albumin [Mass/Vol] 3.2 g/dL Low 3.9-4.9 [facility] Comment on above: Order Comment: Speci men Type: BLOOD SPECIMEN [facility] Address: [address] [place] [address] Performed By: #### 2 4323-8, 87115-0, 2776-10 #### [facility] CLIA [id number] [address] [place] [address] [place] ALP [Catalytic activity/Vol] 99 U/L Normal 38-113 [facility] Comment on above: Order Comment: Speci men Type: BLOOD SPECIMEN [facility] Address: [address] [place] [address] Performed By: #### 2 4323-8, , 2776-10 #### [facility] CLIA [id number] [address] [place] [address] [place] ALT [Catalytic activity/Vol] 12 U/L Normal 10-54 [facility] Comment on above: Order Comment: Speci men Type: BLOOD SPECIMEN [facility] Address: [address] [place] [address] Performed By: #### 2 4323-8, , 2776-10 #### [facility] CLIA [id number] [address] [place] [address] [place] Anion gap [Moles/Vol] 10 mmol/L Normal 8-15 [facility] Comment on above: Order Comment: Speci men Type: BLOOD SPECIMEN [facility] Address: [address] [place] [address] Performed By: #### 2 4323-8, , 2776-10 #### [facility] CLIA [id number] [address] [place] AST [Catalytic activity/Vol] 16 U/L Normal 14-40 [facility] Comment on above: Order Comment: Speci men Type: BLOOD SPECIMEN [facility] Address: [address] [place] [address] Performed By: #### 2 4323-8, , 2776-10 #### [facility] CLIA [id number] [address] [place] Bilirubin [Mass/Vol] 0.4 mg/dL Normal 0.2-1.3 [facility] Comment on above: Order Comment: Speci men Type: BLOOD SPECIMEN [facility] Address: [address] [place] [address] Performed By: #### 2 4323-8, , 2776-10 #### [facility] CLIA [id number] [address] [place] [address] [place] Calcium [Mass/Vol] 8.9 mg/dL Normal 8.5-10.2 [facility] Comment on above: Order Comment: Speci men Type: BLOOD SPECIMEN [facility] Address: [address] [place] [address] Performed By: #### 2 4323-8, , 2776-10 #### [facility] CLIA [id number] [address] [place] [address] [place] Chloride [Moles/Vol] 108 mmol/L High 98-107 [facility] Comment on above: Order Comment: Speci men Type: BLOOD SPECIMEN [facility] Address: [address] [place] [address] Performed By: #### 2 4323-8, , 2776-10 #### [facility] CLIA [id number] [address] [place] [address] [place] CO2 [Moles/Vol] 24 mmol/L Normal 22-30 [facility] Comment on above: Order Comment: Speci men Type: BLOOD SPECIMEN [facility] Address: [address] [place] [address] Performed By: #### 2 4323-8, , 2776-10 #### [facility] CLIA [id number] [address] [place] [address] [place] Creatinine [Mass/Vol] 1.17 mg/dL Normal 0.73-1.22 [facility] Comment on above: Order Comment: Speci men Type: BLOOD SPECIMEN [facility] Address: [address] [place] [address] Performed By: #### 2 4323-8, , 2776-10 #### [facility] CLIA [id number] [address] [place] [address] [place] Creatinine and Glomerular filtration rate.predicted panel (S/P/Bld) 63 mL/min/1.73m??? Normal >=60 [facility] Comment on above: Order Comment: Raghu sandoval Type: BLOOD SPECIMEN [facility] Address: [address] [place] [address] Result Comment: Carlita mated Glomerular Filtration Rate [...] actual GFR. Performed By: #### 2 4323-8, 74786-8, 2777-1 #### [facility] CLIA [id number] [address] [place] [address] [place] Glucose [Mass/Vol] 106 mg/dL High 74-99 [facility] Comment on above: Order Comment: Raghu sandoval Type: BLOOD SPECIMEN [facility] Address: [address] [place] [address] Result Comment: The [place] Diabetes Association (ADA) provides guidance for cutoff [...] Standards of Medical Care in Diabetes 2016, [place] [employer]. Diabetes Care. 2016.39(Suppl 1). Performed By: #### 2 4323-8, 96308-2, 2777-1 #### [facility] CLIA [id number] [address] [place] [address] [place] Potassium [Moles/Vol] 3.7 mmol/L Normal 3.7-5.1 [facility] Comment on above: Order Comment: Raghu sandoval Type: BLOOD SPECIMEN [facility] Address: [address] [place], [place] [address] Performed By: #### 2 4323-8, 42109-5, 2776-1 #### [facility] CLIA [id number] [address] Protein [Mass/Vol] 6.4 g/dL Normal 6.3-8.0 [facility] Comment on above: Order Comment: Speci men Type: BLOOD SPECIMEN [facility] Address: [address] [place] [address] Performed By: #### 2 4323-8, 14462-1, 2776-1 #### [facility] CLIA [id number] [address] [place] Sodium [Moles/Vol] 142 mmol/L Normal 136-144 [facility] Comment on above: Order Comment: Speci men Type: BLOOD SPECIMEN [facility] Address: [address] [place] [address] Performed By: #### 2 4323-8, , 2776-10 #### [facility] CLIA [id number] [address] STATES OF [facility] Urea nitrogen [Mass/Vol] 13 mg/dL Normal 9-24 [facility] Comment on above: Order Comment: Speci men Type: BLOOD SPECIMEN [facility] Address: [address] [place] [address] Performed By: #### 2 4323-8, 51134-4, 27704-04 #### [facility] CLIA [id number] [address] [place] ECG COMPLETEon 10-18-2024 ECG COMPLETE Ventricular Rate : 6 4 BPM QRS Duration : 80 ms Q-T Interval : 434 ms QTC Calculation(Bazett) : 447 ms Calculated R Koppel : 33 degrees Calculated T Koppel : 39 degrees SINUS RHYTHM EARLY REPOLARIZATION BORDERLINE ECG BASELINE ARTIFACT NO PREVIOUS ECGS AVAILABLE Confirmed by MD CAAL GREGORY () on 10/19/2024 8:49:48 AM NAME : LORY JOHNSON PID : [id number] : 1945 Gender : Male Race : ORD : [id number] Procedure Date : Oct 18 2024 12:39:54 Edit Date : Oct 19 2024 08:49:52 Diagnosis: SINUS RHYTHM EARLY REPOLARIZATION BORDERLINE ECG BASELINE ARTIFACT NO PREVIOUS ECGS AVAILABLE Confirmed by MD CAAL GREGORY () on 10/19/2024 8:49:48 AM Test Reason : Assess QTc Location : 16 : [address] [place] [address] Overread By : MD CAAL GREGORY Edited By : MD CAAL GREGORY Referred By : DOMENICO CHOUDHURY Acquired by : [id number], Normal [facility] Magnesium SerPl-mCncon 10-18 Magnesium [Mass/Vol] 1.9 mg/dL Normal 1.7-2.3 [facility] Comment on above: Order Comment: Raghu sandoval Type: BLOOD SPECIMEN Ordering Facility: [facility] Address: [address] [place] [address] Performed By: #### 2 4323-8, 48406-8, 2777-1 #### [facility] CLIA [id number] [address] [place] [address] [place] Phosphate SerPl-mCncon 10-18 Phosphate [Mass/Vol] 3.1 mg/dL Normal 2.7-4.8 [facility] Comment on above: Order Comment: Raghu sandoval Type: BLOOD SPECIMEN Ordering Facility: [facility] Address: [address] [place] [address] Performed By: #### 2 4323-8, 91638-7, 2777-1 #### [facility] CLIA [id number] [address] [place] [address] [place] 25(OH)D3 SerPl-mCncon 2024 25-hydroxyvitamin D3 [Mass/Vol] 52.8 ng/mL Normal 31.0-80.0 [facility] Comment on above: Order Comment: Raghu sandoval Type: BLOOD SPECIMENOrdering Facility: [facility] Address: [address] [place] [address] Result Comment: Clas sification of 25 [place] Vitamin D status: Deficiency/Insufficiency: < or = 30 ng/ml. Sufficiency/Optimal Levels: 31-80 ng/mL Toxicity: > 100 ng/mL. Test performed by chemiluminescent immunoassay. Performed By: #### 1 989-3 ####[facility] LABCLIA [id number] [facility] [id number] CBC panel Auto (Bld)on 10-17 Erythrocyte distribution width (RBC) [Ratio] 13.0 % Normal 11.5-15.0 [facility] Comment on above: Order Comment: Speci men Type: BLOOD SPECIMENOrdering Facility: [facility] Address: [address] [place] [address] Performed By: #### 5 8410-2 ####[facility] LABORATORYCLIA [id number] [address] Hematocrit (Bld) [Volume fraction] 39.1 % Normal 39.0-51.0 [facility] Comment on above: Order Comment: Speci men Type: BLOOD SPECIMENOrdering Facility: [facility] Address: [address] [place] [address] Performed By: #### 5 8410-2 ####[facility] LABORATORYCLIA [id number] [address] Hemoglobin (Bld) [Mass/Vol] 13.6 g/dL Normal 13.0-17.0 [facility] Comment on above: Order Comment: Speci men Type: BLOOD SPECIMENOrdering Facility: [facility] Address: [address] [place] [address] Performed By: #### 5 8410-2 ####[facility] LABORATORYCLIA [id number] [address] MCH (RBC) [Entitic mass] 30.2 pg Normal 26.0-34.0 [facility] Comment on above: Order Comment: Speci men Type: BLOOD SPECIMENOrdering Facility: [facility] Address: [address] [place] [address] Performed By: #### 5 8410-2 ####[facility] LABORATORYCLIA [id number] [address] MCHC (RBC) [Mass/Vol] 34.8 g/dL Normal 30.5-36.0 [facility] Comment on above: Order Comment: Speci men Type: BLOOD SPECIMENOrdering Facility: [facility] Address: [address] [place] [address] Performed By: #### 5 8410-2 ####[facility] LABORATORYCLIA [id number] [address] [place] MCV (RBC) [Entitic vol] 86.7 fL Normal 80.0-100.0 [facility] Comment on above: Order Comment: Speci men Type: BLOOD SPECIMENOrdering Facility: [facility] Address: [address] [place] [address] Performed By: #### 5 8410-2 ####[facility] LABORATORYCLIA [id number] [address] Nucleated RBC (Bld) [#/Vol] 10*3/uL Normal <0.01 [facility] Comment on above: Order Comment: Speci men Type: BLOOD SPECIMENOrdering Facility: [facility] Address: [address] [place] [address] Performed By: #### 5 8410-2 ####[facility] LABORATORYCLIA [id number] [address] [address] [place] Platelet mean volume (Bld) [Entitic vol] 9.9 fL Normal 9.0-12.7 [facility] Comment on above: Order Comment: Speci men Type: BLOOD SPECIMENOrdering Facility: [facility] Address: [address] [place] [address] Performed By: #### 5 8410-2 ####[facility] LABORATORYCLIA [id number] [address] [place] Platelets (Bld) [#/Vol] 218 10*3/uL Normal 150-400 [facility] Comment on above: Order Comment: Speci men Type: BLOOD SPECIMENOrdering Facility: [facility] Address: [address] [place] [address] Performed By: #### 5 8410-2 ####[facility] LABORATORYCLIA [id number] [place] [address] [place] RBC (Bld) [#/Vol] 4.51 10*6/uL Normal 4.20-6.00 [facility] Comment on above: Order Comment: Speci men Type: BLOOD SPECIMENOrdering Facility: [facility] Address: [address] [place], [place] [address] Performed By: #### 5 8410-2 ####[facility] LABORATORYCLIA [id number] [address] WBC (Bld) [#/Vol] 7.48 10*3/uL Normal 3.70-11.00 [facility] Comment on above: Order Comment: Speci men Type: BLOOD SPECIMENOrdering Facility: [facility] Address: [address] [place] [address] Performed By: #### 5 8410-2 ####[facility] LABORATORYCLIA [id number] [address] CONSULTon 10-17-2024 CONSULT HNO ID: [id number] Author: EMRVIN BELTRE APRN.[employer] DEVEL[employer] Service: Psychiatry Author Type: Nurse Practitioner Type: [...] is a 79 year old male from [place], [place] HISTORY OF PRESENT ILLNESS : 79-year-old [...] others. Diagnoses: (more content not included)... Normal [facility] COPPER BLOODon 10-17-2024 Copper [Mass/Vol] 113 ug/dL Normal 70-140 [facility] Comment on above: Order Comment: Speci men Type: BLOOD SPECIMENOrdering Facility: [facility] Address: [address] [place] [address] Result Comment: This test was developed, and its performance characteristics determined by the [facility] Department of Pathology and Laboratory Medicine. It has not been cleared or approved by the FDA. The [facility] Department of Pathology and Laboratory Medicine is regulated under CLIA as qualified to perform high-complexity testing. This test is used for clinical purposes. It should not be regarded as investigational or for research. Performed By: #### C JUAN MANUEL, 5763-8 ####[facility] LABCLIA [id number] [place] [address] [place] Comprehensive metabolic 2000 panelon 10-17-2024 Albumin [Mass/Vol] 3.7 g/dL Low 3.9-4.9 [facility] Comment on above: Order Comment: Speci men Type: BLOOD SPECIMENOrdering Facility: [facility] Address: [address] [place] [address] Performed By: #### 2 4323-8, 35730-0, 2132-06, 2284-05 ####[facility] LABORATORYCLIA [id number] [place] [address] [place] ALP [Catalytic activity/Vol] 102 U/L Normal 38-113 [facility] Comment on above: Order Comment: Speci men Type: BLOOD SPECIMENOrdering Facility: [facility] Address: [address] [place] [address] Performed By: #### 2 4323-8, , 2132-06, 2284-05 ####[facility] LABORATORYCLIA [id number] [address] [place] ALT [Catalytic activity/Vol] 12 U/L Normal 10-54 [facility] Comment on above: Order Comment: Speci men Type: BLOOD SPECIMENOrdering Facility: [facility] Address: [facility] [place] [address] Performed By: #### 2 4323-8, , 2132-06, 2284-05 ####[facility] LABORATORYCLIA [id number] [address] STATES [facility] Anion gap [Moles/Vol] 12 mmol/L Normal 8-15 [facility] Comment on above: Order Comment: Speci men Type: BLOOD SPECIMENOrdering Facility: [facility] Address: [address] [place] [address] Performed By: #### 2 4323-8, 72594-7, 2132-06, 2284-05 ####[facility] LABORATORYCLIA [id number] [address] [place] AST [Catalytic activity/Vol] 17 U/L Normal 14-40 [facility] Comment on above: Order Comment: Speci men Type: BLOOD SPECIMENOrdering Facility: [facility] Address: [address] [place] [address] Performed By: #### 2 4323-8, 71772-0, 2132-06, 2284-05 ####[facility] LABORATORYCLIA [id number] [place] [address] [place] Bilirubin [Mass/Vol] 0.4 mg/dL Normal 0.2-1.3 [facility] Comment on above: Order Comment: Speci men Type: BLOOD SPECIMENOrdering Facility: [facility] Address: [address] [place] [address] Performed By: #### 2 4323-8, , 2132-06, 2284-05 ####[facility] LABORATORYCLIA [id number] [place] [address] [place] Calcium [Mass/Vol] 9.2 mg/dL Normal 8.5-10.2 [facility] Comment on above: Order Comment: Speci men Type: BLOOD SPECIMENOrdering Facility: [facility] Address: [address] [place] [address] Performed By: #### 2 4323-8, , 2132-06, 2284-05 ####[facility] LABORATORYCLIA [id number] [place] [address] [place] Chloride [Moles/Vol] 108 mmol/L High 98-107 [facility] Comment on above: Order Comment: Speci men Type: BLOOD SPECIMENOrdering Facility: [facility] Address: [address] [place] [address] Performed By: #### 2 4323-8, , 2132-06, 2284-05 ####[facility] LABORATORYCLIA [id number] [place] [address] [place] CO2 [Moles/Vol] 25 mmol/L Normal 22-30 [facility] Comment on above: Order Comment: Speci men Type: BLOOD SPECIMENOrdering Facility: [facility] Address: [address] [place] [address] Performed By: #### 2 4323-8, , 2132-06, 8 ####[facility] LABORATORYCLIA [id number] [place] [address] [place] Creatinine [Mass/Vol] 1.07 mg/dL Normal 0.73-1.22 [facility] Comment on above: Order Comment: Raghu sandoval Type: BLOOD SPECIMENOrdering Facility: [facility] Address: [address] [place] [id number] Performed By: #### 2 4323-8, 61843-5, 9, 2284-05 ####[facility] LABORATORYCLIA [id number] [place] [id number] [place] Creatinine and Glomerular filtration rate.predicted panel (S/P/Bld) 70 mL/min/1.73m??? Normal >=60 [facility] Comment on above: Order Comment: Raghu sandoval Type: BLOOD SPECIMENOrdering Facility: [facility] Address: [address] [place] [address] Result Comment: Carlita mated Glomerular Filtration Rate [...] actual GFR. Performed By: #### 2 4323-8, 59190-0, 2132-06, 2284-05 ####[facility] LABORATORYCLIA [id number] [place] [id number] [place] Glucose [Mass/Vol] 103 mg/dL High 74-99 [facility] Comment on above: Order Comment: Raghu sandoval Type: BLOOD SPECIMENOrdering Facility: [facility] Address: [address] [place] [address] Result Comment: The [place] Diabetes Association (ADA) provides guidance for cutoff [...] Standards of Medical Care in Diabetes 2016, [place] [employer]. Diabetes Care. 2016.39(Suppl 1). Performed By: #### 2 4323-8, , 2132-06, 2284-05 ####[facility] LABORATORYCLIA [id number] [place] [address] [place] Potassium [Moles/Vol] 3.6 mmol/L Low 3.7-5.1 [facility] Comment on above: Order Comment: Speci men Type: BLOOD SPECIMENOrdering Facility: [facility] Address: [address] [place], [place] [address] Performed By: #### 2 4323-8, , 2132-06, 2284-05 ####[facility] LABORATORYCLIA [id number] [place] [address] [place] Protein [Mass/Vol] 6.2 g/dL Low 6.3-8.0 [facility] Comment on above: Order Comment: Speci men Type: BLOOD SPECIMENOrdering Facility: [facility] Address: [address] [place] [id number] Performed By: #### 2 4323-8, , 2132-06, 2284-05 ####[facility] LABORATORYCLIA [id number] [place] [address] [place] Sodium [Moles/Vol] 145 mmol/L High 136-144 [facility] Comment on above: Order Comment: Speci men Type: BLOOD SPECIMENOrdering Facility: [facility] Address: [address] [place] [address] Performed By: #### 2 4323-8, 94128-1, 2132-06, 2284-05 ####[facility] LABORATORYCLIA [id number] [place] [id number] [place] Urea nitrogen [Mass/Vol] 11 mg/dL Normal 9-24 [facility] Comment on above: Order Comment: Speci men Type: BLOOD SPECIMENOrdering Facility: [facility] Address: [address] [place] [id number] Performed By: #### 2 4323-8, 73079-2, 9, 8 ####[facility] LABORATORYCLIA [id number] [place] [address] [place] [facility] [place] Folate SerPl-mCncon 10-17-19 25 Folate [Mass/Vol] ng/mL Normal >4.7 [facility] Comment on above: Order Comment: Speci men Type: BLOOD SPECIMENOrdering Facility: [facility] Address: [address] [place] [address] Result Comment: A re sult of > 20 ng/mL is not necessarily indicative of a pathologic or treatable condition: it reflects a limitation of the test methodology. Assay reference range: 4.8 to 24.2 ng/mL. Suitable for detection of folate deficiency. Reference: Folate III (Folate III) [package insert V 1.0 Uzbek]. [employer], [place], [place]: August 2015. Performed By: #### 2 4323-8, 96961-1, 2132-06, 2284-05 ####[facility] LABORATORYCLIA [id number] [place] [id number] [facility] [place] Magnesium SerPl-mCncon 10-17 Magnesium [Mass/Vol] 2.0 mg/dL Normal 1.7-2.3 [facility] Comment on above: Order Comment: Speci men Type: BLOOD SPECIMENOrdering Facility: [facility] Address: [address] [place] [address] Performed By: #### 2 4323-8, , 2132-06, 2284-05 ####[facility] LABORATORYCLIA [id number] [place] [id number] [place] VITAMIN B6/PYRIDOXINon 10-17 VITAMIN B6 17.7 nmol/L Low 20.0-125.0 [facility] Comment on above: Order Comment: Speci men Type: BLOOD SPECIMENOrdering Facility: [facility] Address: [address] [place] [address] Result Comment: INTE RPRETIVE INFORMATION: Vitamin B6 (Pyridoxal 5-Phosphate) Pyridoxal 5'-phosphate measured in a specimen collected following an 8-hour or overnight fast accurately indicates vitamin B6 nutritional status. Non-fasting specimen concentration reflects recent vitamin intake. This test was developed and its performance characteristics determined by [employer]. It has not been cleared or approved by the [place] Food and Drug Administration. This test was performed in a CLIA certified laboratory and is intended for clinical purposes. Performed By: [facility] [employer] [address] [place] [address] Coal Unloader: Kenan Brunner MD, PhD CLIA Number: [id number] Performed By: #### V ITB6 ####[facility] CENTERIA [id number] [place] [address] Vit B12 SerPl-mCncon 025 Cobalamin (Vitamin B12) [Mass/Vol] 706 pg/mL Normal 232-1245 [facility] Comment on above: Order Comment: Speci men Type: BLOOD SPECIMENOrdering Facility: [facility] Address: [address] [place] [address] Performed By: #### 2 4323-8, 39090-0, 2132-9, 4-8 ####[facility] LABORATORYCLIA [id number] [place] [address] [place] Zinc SerPl-mCncon 10-17-2024 Zinc [Mass/Vol] 56 ug/dL Low 60-120 [facility] Comment on above: Order Comment: Specsrinath sandoval Type: BLOOD SPECIMENOrdering Facility: [facility] Address: [address] [place] [address] Result Comment: This test was developed, and its performance characteristics determined by the [facility] Department of Pathology and Laboratory Medicine. It has not been cleared or approved by the FDA. The [facility] Department of Pathology and Laboratory Medicine is regulated under CLIA as qualified to perform high-complexity testing. This test is used for clinical purposes. It should not be regarded as investigational or for research. Performed By: #### C JUAN MANUEL, 5763-8 ####[facility] LABCLIA [id number] [place] [address] [place] Ammonia Plas-sCncon 10-16-19 25 Ammonia (P) [Moles/Vol] 10 umol/L Low 16-60 [facility] Comment on above: Order Comment: Speci men Type: BLOOD SPECIMENOrdering Facility: [facility] Address: [address] [place] [address] Performed By: #### 1 6362-6 ####[facility] LABORATORYCLIA [id number] [address] CBC panel Auto (Bld)on 10-16 Erythrocyte distribution width (RBC) [Ratio] 12.9 % Normal 11.5-15.0 [facility] Comment on above: Order Comment: Speci men Type: BLOOD SPECIMENOrdering Facility: [facility] Address: [address] [place] [address] Performed By: #### 5 8410-2 ####[facility] LABORATORYCLIA [id number] [address] Hematocrit (Bld) [Volume fraction] 36.5 % Low 39.0-51.0 [facility] Comment on above: Order Comment: Speci men Type: BLOOD SPECIMENOrdering Facility: [facility] Address: [address] [place] [address] Performed By: #### 5 8410-2 ####[facility] LABORATORYCLIA [id number] [address] Hemoglobin (Bld) [Mass/Vol] 12.7 g/dL Low 13.0-17.0 [facility] Comment on above: Order Comment: Speci men Type: BLOOD SPECIMENOrdering Facility: [facility] Address: [address] [place] [address] Performed By: #### 5 8410-2 ####[facility] LABORATORYCLIA [id number] [address] MCH (RBC) [Entitic mass] 30.3 pg Normal 26.0-34.0 [facility] Comment on above: Order Comment: Speci men Type: BLOOD SPECIMENOrdering Facility: [facility] Address: [address] [place] [address] Performed By: #### 5 8410-2 ####[facility] LABORATORYCLIA [id number] [address] MCHC (RBC) [Mass/Vol] 34.8 g/dL Normal 30.5-36.0 [facility] Comment on above: Order Comment: Speci men Type: BLOOD SPECIMENOrdering Facility: [facility] Address: [address] [place] [address] Performed By: #### 5 8410-2 ####[facility] LABORATORYCLIA [id number] [place] [address] [place] MCV (RBC) [Entitic vol] 87.1 fL Normal 80.0-100.0 [facility] Comment on above: Order Comment: Speci men Type: BLOOD SPECIMENOrdering Facility: [facility] Address: [address] [place] [address] Performed By: #### 5 8410-2 ####[facility] LABORATORYCLIA [id number] [place] [address] [place] Nucleated RBC (Bld) [#/Vol] 10*3/uL Normal <0.01 [facility] Comment on above: Order Comment: Speci men Type: BLOOD SPECIMENOrdering Facility: [facility] Address: [address] [place] [address] Performed By: #### 5 8410-2 ####[facility] LABORATORYCLIA [id number] [place] [address] [place] Platelet mean volume (Bld) [Entitic vol] 9.7 fL Normal 9.0-12.7 [facility] Comment on above: Order Comment: Speci men Type: BLOOD SPECIMENOrdering Facility: [facility] Address: [address] [place] [address] Performed By: #### 5 8410-2 ####[facility] LABORATORYCLIA [id number] [place] [address] [place] Platelets (Bld) [#/Vol] 206 10*3/uL Normal 150-400 [facility] Comment on above: Order Comment: Speci men Type: BLOOD SPECIMENOrdering Facility: [facility] Address: [address] [place] [address] Performed By: #### 5 8410-2 ####[facility] LABORATORYCLIA [id number] [place] [address] [facility] [place] RBC (Bld) [#/Vol] 4.19 10*6/uL Low 4.20-6.00 [facility] Comment on above: Order Comment: Speci men Type: BLOOD SPECIMENOrdering Facility: [facility] Address: [address] [place], [place] [address] Performed By: #### 5 8410-2 ####[facility] LABORATORYCLIA [id number] [place] [address] [facility] WBC (Bld) [#/Vol] 7.53 10*3/uL Normal 3.70-11.00 [facility] Comment on above: Order Comment: Speci men Type: BLOOD SPECIMENOrdering Facility: [facility] Address: [address] [place] [address] Performed By: #### 5 8410-2 ####[facility] LABORATORYCLIA [id number] [address] CONSULTon 10-16-2024 CONSULT HNO ID: [id number] Author: ELVIN ALEMAN MD Service: Neurology General [...] 1 pm to 5 pm [facility]: 3 pm to 5 pm Statutory holidays do not have teleneuro coverage. [place]: During Off hours for Teleneurology please page (not call) [place] [facility] [address] educational manager for concerns. [place]: During Off hours for Teleneurology please page (not call) [place] [facility] [phone] educational manager for concerns. [facility]: There is no off-hours coverage for Teleneurology. [...] was last seen by general neurology and [facility] both on 10/14/2024 AT ED, BP was [...] 04/11/2024 Dementia without behavioral disturbance ([facility]) 05/15/2016 MMSE: 22 05/2016, MMSE: 06/2019, 23 Elevated fasting blood sugar 12/01/2018 Emphysema lung (HCC) 10/23/2023 Essential hypertension, benign 05/12/20 (more content not included)... Normal [facility] Comprehensive metabolic 2000 panelon 10-16-2024 Albumin [Mass/Vol] 3.5 g/dL Low 3.9-4.9 [facility] Comment on above: Order Comment: Speci men Type: BLOOD SPECIMENOrdering Facility: [facility] Address: [address] [place] [address] [place], [place] [address] Performed By: #### 1 0534-9, 69423-2, 3016-3, 30815-6 ####[facility] LABORATORYCLIA [id number] [place] [address] [place] [facility] ALP [Catalytic activity/Vol] 98 U/L Normal 38-113 [facility] Comment on above: Order Comment: Speci men Type: BLOOD SPECIMENOrdering Facility: [facility] Address: [address] [place] [address] Performed By: #### 1 9123-9, 01761-1, 3016-3, 11454-5 ####[facility] LABORATORYCLIA [id number] [address] [place] ALT [Catalytic activity/Vol] 12 U/L Normal 10-54 [facility] Comment on above: Order Comment: Speci men Type: BLOOD SPECIMENOrdering Facility: [facility] Address: [address] [place] [address] Performed By: #### 1 9123-9, 58675-0, 3016-3, 50641-5 ####[facility] LABORATORYCLIA [id number] [address] STATES [facility] Anion gap [Moles/Vol] 10 mmol/L Normal 8-15 [facility] Comment on above: Order Comment: Speci men Type: BLOOD SPECIMENOrdering Facility: [facility] Address: [address] [place] [address] Performed By: #### 1 9123-9, 54467-1, 3016-3, 13880-2 ####[facility] LABORATORYCLIA [id number] [address] [place] AST [Catalytic activity/Vol] 16 U/L Normal 14-40 [facility] Comment on above: Order Comment: Speci men Type: BLOOD SPECIMENOrdering Facility: [facility] Address: [address] [place] [address] Performed By: #### 1 9123-9, 93635-7, 3016-3, 67178-8 ####[facility] LABORATORYCLIA [id number] [place] [id number] [facility] Bilirubin [Mass/Vol] 0.5 mg/dL Normal 0.2-1.3 [facility] Comment on above: Order Comment: Speci men Type: BLOOD SPECIMENOrdering Facility: [facility] Address: [facility] [place] [address] Performed By: #### 1 9123-9, 23369-6, 3016-3, 68188-4 ####[facility] LABORATORYCLIA [id number] [place] [address] [place] Calcium [Mass/Vol] 9.1 mg/dL Normal 8.5-10.2 [facility] Comment on above: Order Comment: Speci men Type: BLOOD SPECIMENOrdering Facility: [facility] Address: [address] [place] [address] Performed By: #### 1 9123-9, 31060-1, 3016-3, 03808-3 ####[facility] LABORATORYCLIA [id number] [place] [address] [place] Chloride [Moles/Vol] 103 mmol/L Normal 98-107 [facility] Comment on above: Order Comment: Speci men Type: BLOOD SPECIMENOrdering Facility: [facility] Address: [address] [place] [address] Performed By: #### 1 9123-9, 36661-7, 301-3, 94741-7 ####[facility] LABORATORYCLIA [id number] [place] [address] [place] CO2 [Moles/Vol] 25 mmol/L Normal 22-30 [facility] Comment on above: Order Comment: Speci men Type: BLOOD SPECIMENOrdering Facility: [facility] Address: [address] [place] [address] Performed By: #### 1 9123-9, 77402-1, 3016-3, 31756-1 ####[facility] LABORATORYCLIA [id number] [place] [address] [place] Creatinine [Mass/Vol] 1.08 mg/dL Normal 0.73-1.22 [facility] Comment on above: Order Comment: Speci men Type: BLOOD SPECIMENOrdering Facility: [facility] Address: [address] [place], [place] [id number] Performed By: #### 1 9123-9, 52737-9, 3016-3, 35100-8 ####RANDOLPH LABORATORYCLIA [id number] [place] [address] [place] Creatinine and Glomerular filtration rate.predicted panel (S/P/Bld) 69 mL/min/1.73m??? Normal >=60 [facility] Comment on above: Order Comment: Raghu sandoval Type: BLOOD SPECIMENOrdering Facility: [facility] Address: [address] [place] [address] Result Comment: Carlita mated Glomerular Filtration Rate [...] actual GFR. Performed By: #### 1 9123-9, 48649-7, 3016-3, 08615-5 ####RANDOLPH LABORATORYCLIA [id number] [place] [address] [place] Glucose [Mass/Vol] 101 mg/dL High 74-99 [facility] Comment on above: Order Comment: Raghu sandoval Type: BLOOD SPECIMENOrdering Facility: [facility] Address: [address] [place] [address] Result Comment: The [place] Diabetes Association (ADA) provides guidance for cutoff [...] Standards of Medical Care in Diabetes 2016, [place] [employer]. Diabetes Care. 2016.39(Suppl 1). Performed By: #### 1 9123-9, 63993-1, 3016-3, 99269-7 ####PUTNAM LABORATORYCLIA [id number] [place] [address] [place] Potassium [Moles/Vol] 3.2 mmol/L Low 3.7-5.1 [facility] Comment on above: Order Comment: Speci men Type: BLOOD SPECIMENOrdering Facility: [facility] Address: [address] [place] [address] Performed By: #### 1 9123-9, 30502-9, 3016-3, 31900-1 ####RANDOLPH LABORATORYCLIA [id number] [place] [id number] [place] Protein [Mass/Vol] 6.3 g/dL Normal 6.3-8.0 [facility] Comment on above: Order Comment: Speci men Type: BLOOD SPECIMENOrdering Facility: [facility] Address: [address] [place] [address] Performed By: #### 1 9123-9, 57898-9, 3016-3, 81329-1 ####RANDOLPH LABORATORYCLIA [id number] [place] [address] [place] Sodium [Moles/Vol] 138 mmol/L Normal 136-144 [facility] Comment on above: Order Comment: Speci men Type: BLOOD SPECIMENOrdering Facility: [facility] Address: [address] [place] [address] Performed By: #### 1 9123-9, 41248-8, 3016-3, 72942-1 ####RANDOLPH LABORATORYCLIA [id number] [place] [id number] [place] Urea nitrogen [Mass/Vol] 12 mg/dL Normal 9-24 [facility] Comment on above: Order Comment: Speci men Type: BLOOD SPECIMENOrdering Facility: [facility] Address: [address] [place] [address] Performed By: #### 1 9123-9, 35583-7, 3016-3, 35065-7 ####RANDOLPH LABORATORYCLIA [id number] [place] [address] [place] Magnesium SerPl-mCncon 10-16 Magnesium [Mass/Vol] 1.9 mg/dL Normal 1.7-2.3 [facility] Comment on above: Order Comment: Speci men Type: BLOOD SPECIMENOrdering Facility: [facility] Address: [address] [place] [address] Performed By: #### 1 9123-9, 11931-6, 3016-3, 66580-7 ####RANDOLPH LABORATORYCLIA [id number] [place] [id number] [facility] NT[facility]NP [facility] Natriuretic peptide.B prohormone N-Terminal [Mass/Vol] 224 pg/mL Normal <450 [facility] Comment on above: Order Comment: Raghu sandoval Type: BLOOD SPECIMENOrdering Facility: [facility] Address: [address] [place] [address] Performed By: #### 2 777-1, 41776-1 ####RANDOLPH LABORATORYCLIA [id number] [address] NURSING PROGon 10-16-2024 NURSING PROG HNO ID: [id number] Author: CURTIS GARZA RN Service: Nursing Author [...] bed trying to pull out IV pulling educational manager light and 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 Orders received. Normal [facility] Phosphate SerPl-mCncon 10-16 Phosphate [Mass/Vol] 2.6 mg/dL Low 2.7-4.8 [facility] Comment on above: Order Comment: Speci men Type: BLOOD SPECIMENOrdering Facility: [facility] Address: [address] [place] [address] Performed By: #### 2 777-1, 61290-5 ####PUTNAM LABORATORYCLIA [id number] [address] Procalcitonin SerPl-mCncon 0 10-16-2024 Procalcitonin [Mass/Vol] 0.09 ng/mL High <0.09 [facility] Comment on above: Order Comment: Speci men Type: BLOOD SPECIMENOrdering Facility: [facility] Address: [address] [place] [address] Result Comment: For a guided interpretation of test results, please visit the Change in Procalcitonin Calculator, [email or web address]. Performed By: #### 1 9123-9, 14975-3, 3016-3, 76108-8 ####PUTNAM LABORATORYCLIA [id number] [address] THERAPY NTon 10-16-2024 THERAPY NT HNO ID: [id number] Author: LOLY ARREGUIN CCC-PEST CONTROL APPLICATOR Service: Speech/Swallow Author Type: Speech Language Pathologist Type: Therapy (PT/OT/Speech/Resp) Filed: 10/16/2024 12:41 Note Text: Speech Therapy Clinical Swallow Evaluation SERVICE DATE: 10/16/2024 SERVICE TIME: 1214 to 1238 ROOM: [place] [address] IMPRESSION Functional oropharyngeal phases of swallowing: without [...] Skilled Need TREATMENT INTERVENTIONS Clinical Swallow Evaluation (94686) Skilled Treatment Time (minutes): 24 TRAINING AND [...] admission, but no slurring noted durring session. PEST CONTROL APPLICATOR recommends no change to diet and no further tx at this time. Compensatory Strategies Utilized During Assessment: Alert (patient should be fully alert for P.O. intake), 1:1 Supervision, Alternate bites and sips, Sit upright 90 degrees for all PO, Small Bite/Sip, Self-monitoring [place] Swallow Protocol: Pass GOALS Patient /Caregiver Goals: Go Home PLAN ST Frequency: Discontinue Therapy Services Reasons Inpatient Therapy Services Discontinued: Patient appears safe and appropriate re: communication, cognition, and swallow function with the ability to return to a baseline level of function, No skilled needs Treatment Interventions: Dysphagia Management Plan of Care Developed with: Patient, Nurse SIGNATURE: Loly Arreguin [facility]-PEST CONTROL APPLICATOR PATIENT NAME: Lory Johnson DATE: October 16, 2024 TIME: 12:40 PM [facility] SerPl-aCncon 10-16-2024 TSH Qn 3.030 m[IU]/L Normal 0.270-4.20 0 [facility] Comment on above: Order Comment: Raghu sandoval Type: BLOOD SPECIMENOrdering Facility: [facility] Address: [address] [place] [address] [place] [address] Performed By: #### 1 9123-9, 41989-6, 3016-3, 78390-1 ####PUTNAM LABORATORYCLIA [id number] [place] [address] [facility] ALLIED HEALTHon 10-15-2024 ALLIED HEALTH HNO ID: [id number] Author: SHIRA DALTON Tech Service: ? Author Type: Automobile Dealer Type: Allied Health Filed: 10/15/2024 18:07 Note [...] PATIENT PRESENTS WITH AN IMPLANTABLE OR ATTACHED ORNAMENT STITCHER: No RADIOLOGY DEPARTMENT: General X-ray: Exam(s) Completed: Chest X-Ray PERIPHERAL IV DATA: Not applicable SIGNED BY: Darling Humphreys October 15, 2024 6:07 PM Normal [facility] ARTERIAL BLOOD GASESon 10-15 Base excess Calc (Bld) [Moles/Vol] 1 mmol/L Normal 0-2 [facility] Comment on above: Order Comment: Raghu sandoval Type: ARTERIAL BLOOD SPECIMENOrdering Facility: [facility] Address: [address] [place], [place] [address] [address] Performed By: #### A LLBG ####INDY RESPIRATORYCLIA [id number] [facility] RESPIRAT[facility] [id number] [address] [address] Carboxyhemoglobin (BldA) [Mass fraction] 1.4 % Normal 0.0-2.0 [facility] Comment on above: Order Comment: Speci men Type: ARTERIAL BLOOD SPECIMENOrdering Facility: [facility] Address: [address] [place] [address] Result Comment: Carb oxyhemoglobin Reference Range for Smokers: 2.0-8.0% Performed By: #### A LLBG ####PUTNAM RESPIRATORYCLIA [id number] [facility] RESPIRAT[facility] [id number] [address] [address] CO2 (Bld) [Partial pressure] 37 mm Hg Normal 36-46 [facility] Comment on above: Order Comment: Speci men Type: ARTERIAL BLOOD SPECIMENOrdering Facility: [facility] Address: [address] [place] [address] Performed By: #### A LLBG ####PUTNAM RESPIRATORYCLIA [id number] [facility]OS[facility] RESPIRATORY [id number] [address] [address] CO2 adjusted to patient's actual temperature (Bld) [Partial pressure] Normal [facility] Comment on above: Order Comment: Speci men Type: ARTERIAL BLOOD SPECIMENOrdering Facility: [facility] Address: [address] [place] [address] Performed By: #### A LLBG ####RANDOLPH RESPIRATORYCLIA [id number] [facility]OSP[facility] RESPIRATORY [id number] [address] [address] HCO3 (Bld) [Moles/Vol] 25 mmol/L Normal 22-26 [facility] Comment on above: Order Comment: Speci men Type: ARTERIAL BLOOD SPECIMENOrdering Facility: [facility] Address: [address] [place] [address] Performed By: #### A LLBG ####PUTNAM RESPIRATORYCLIA [id number] [facility] RESPIRAT[facility] [id number] [address] [address] Hemoglobin (Bld) [Mass/Vol] 14.3 g/dL Normal 13.0-17.0 [facility] Comment on above: Order Comment: Speci men Type: ARTERIAL BLOOD SPECIMENOrdering Facility: [facility] Address: [address] [place] [address] Performed By: #### A LLBG ####PUTNAM RESPIRATORYCLIA [id number] [facility] RESPIRATORY [id number] [address] [address] Lactate [Moles/Vol] 1.4 mmol/L Normal 0.5-2.2 [facility] Comment on above: Order Comment: Speci men Type: ARTERIAL BLOOD SPECIMENOrdering Facility: [facility] Address: [address] [place] [address] Performed By: #### A LLBG ####[facility] RESPIRATORYWASHINGTON [facility] [id number] [facility] RESPIRATORY [id number] [address] Methemoglobin (Bld) [Mass fraction] % Normal 0.0-1.5 [facility] Comment on above: Order Comment: Speci men Type: ARTERIAL BLOOD SPECIMENOrdering Facility: [facility] Address: [address] [place] [id number] Performed By: #### A LLBG ####[place] [id number] [place] [address] RESPIRATORY [id number] [address] O2 THERAPY RA=Room Air [facility] Comment on above: Order Comment: Speci men Type: ARTERIAL BLOOD SPECIMENOrdering Facility: [facility] Address: [address] [place] [address] Performed By: #### A LLBG ####[place] [id number] [place] [address] RESPIRATORY [id number] [address] Oxygen (Bld) [Partial pressure] 75 mm Hg Low 85-95 [facility] Comment on above: Order Comment: Speci men Type: ARTERIAL BLOOD SPECIMENOrdering Facility: [facility] Address: [address] [place] [address] Performed By: #### A LLBG ####[id number] [place] [address] RESPIRATORY [id number] [address] [address] Oxygen adjusted to patient's actual temperature (Bld) [Partial pressure] [facility] Comment on above: Order Comment: Speci men Type: ARTERIAL BLOOD SPECIMENOrdering Facility: [facility] Address: [address] [place] [address] Performed By: #### A LLBG ####RANDOLPH RESPIRATORYIA [id number] [facility] RESPIRATORY [id number] [address] Oxyhemoglobin (BldA) [Mass fraction] 95 % Normal 95-98 [facility] Comment on above: Order Comment: Speci men Type: ARTERIAL BLOOD SPECIMENOrdering Facility: [facility] Address: [address] [place] [address] Performed By: #### A LLBG ####RANDOLPH RESPIRATORYIA [id number] [facility]OSP[facility] RESPIRATORY [id number] [address] pH (Bld) 7.44 [pH] Normal 7.35-7.45 [facility] Comment on above: Order Comment: Speci men Type: ARTERIAL BLOOD SPECIMENOrdering Facility: [facility] Address: [address] [place] [address] Performed By: #### A LLBG ####[facility] RESPIRATORYWASHINGTON [facility] [id number] [facility] RESPIRATORY [id number] [address] pH adjusted to patient's actual temperature (Bld) Normal [facility] Comment on above: Order Comment: Speci men Type: ARTERIAL BLOOD SPECIMENOrdering Facility: [facility] Address: [address] [place] [address] Performed By: #### A LLBG ####[facility] [id number] [facility]OS[facility] RESPIRATORY [id number] [address] [address] PO2 / FIO2 RATIO 357 mmHg Normal >300 [facility] Comment on above: Order Comment: Speci men Type: ARTERIAL BLOOD SPECIMENOrdering Facility: [facility] Address: [address] [place] [address] Performed By: #### A LLBG ####[facility] [id number] [facility]OSPITAL RESPIRATORY [id number] [address] [address] Potassium [Moles/Vol] 3.2 mmol/L Low 3.5-5.0 [facility] Comment on above: Order Comment: Speci men Type: ARTERIAL BLOOD SPECIMENOrdering Facility: [facility] Address: [address] [place] [address] Performed By: #### A LLBG ####[facility] RESPIRATORYCLIA [id number] [facility]OSP[facility] RESPIRATORY [id number] [place] [address] CBC W Auto Differential pane l (Bld)on 10-15-2024 Basophils (Bld) [#/Vol] 0.04 10*3/uL Normal <0.11 [facility] Comment on above: Order Comment: Speci men Type: BLOOD SPECIMENOrdering Facility: [facility] Address: [address] [place] [address] Performed By: #### 5 7021-8 ####PAM [facility] LABORATORYCLIA [id number] [place] [address] [place] Basophils/100 WBC (Bld) 0.5 % Normal [facility] Comment on above: Order Comment: Speci men Type: BLOOD SPECIMENOrdering Facility: [facility] Address: [address] [place] [address] Performed By: #### 5 7021-8 ####PAM [facility] LABORATORYCLIA [id number] [place] [address] [place] Differential cell count method Nom (Bld) Auto Normal [facility] Comment on above: Order Comment: Speci men Type: BLOOD SPECIMENOrdering Facility: [facility] Address: [address] [place] [address] Performed By: #### 5 7021-8 ####PAM [facility] LABORATORYCLIA [id number] [place] [address] [place] Eosinophils (Bld) [#/Vol] 0.13 10*3/uL Normal <0.46 [facility] Comment on above: Order Comment: Speci men Type: BLOOD SPECIMENOrdering Facility: [facility] Address: [address] [place] [address] Performed By: #### 5 7021-8 ####PAM [facility] LABORATORYCLIA [id number] [address] [place] Eosinophils/100 WBC (Bld) 1.7 % Normal [facility] Comment on above: Order Comment: Speci men Type: BLOOD SPECIMENOrdering Facility: [facility] Address: [address] [place] [address] Performed By: #### 5 7021-8 ####JILLESTRELLA [facility] LABORATORYCLIA [id number] [address] [place] Erythrocyte distribution width (RBC) [Ratio] 13.3 % Normal 11.5-15.0 [facility] Comment on above: Order Comment: Speci men Type: BLOOD SPECIMENOrdering Facility: [facility] Address: [address] [place] [address] Performed By: #### 5 7021-8 ####PAM [facility] LABORATORYCLIA [id number] [address] [place] Hematocrit (Bld) [Volume fraction] 38.2 % Low 39.0-51.0 [facility] Comment on above: Order Comment: Speci men Type: BLOOD SPECIMENOrdering Facility: [facility] Address: [address] [place] [address] Performed By: #### 5 7021-8 ####JILLESTRELLA [facility] LABORATORYCLIA [id number] [address] Hemoglobin (Bld) [Mass/Vol] 12.8 g/dL Low 13.0-17.0 [facility] Comment on above: Order Comment: Speci men Type: BLOOD SPECIMENOrdering Facility: [facility] Address: [address] [place] [address] Performed By: #### 5 7021-8 ####PAM [facility] LABORATORYIA [id number] [place] [address] [place] [facility] Immature granulocytes (Bld) [#/Vol] 10*3/uL Normal <0.10 [facility] Comment on above: Order Comment: Speci men Type: BLOOD SPECIMENOrdering Facility: [facility] Address: [address] [place] [address] Performed By: #### 5 7021-8 ####PAM [facility] LABORATORYCLIA [id number] [address] Immature granulocytes/100 WBC (Bld) 0.1 % Normal [facility] Comment on above: Order Comment: Speci men Type: BLOOD SPECIMENOrdering Facility: [facility] Address: [address] [place] [address] Performed By: #### 5 7021-8 ####JILLESTRELLA [facility] LABORATORYCLIA [id number] [place] [address] [place] Lymphocytes (Bld) [#/Vol] 1.72 10*3/uL Normal 1.00-4.00 [facility] Comment on above: Order Comment: Speci men Type: BLOOD SPECIMENOrdering Facility: [facility] Address: [address] [place] [address] Performed By: #### 5 7021-8 ####JILLJERSON [facility] LABORATORYIA [id number] [address] Lymphocytes/100 WBC (Bld) 23.0 % Normal [facility] Comment on above: Order Comment: Speci men Type: BLOOD SPECIMENOrdering Facility: [facility] Address: [address] [place] [address] Performed By: #### 5 7021-8 ####JILLESTRELLA [facility] LABORATORYCLIA [id number] [place] [address] [place] MCH (RBC) [Entitic mass] 29.8 pg Normal 26.0-34.0 [facility] Comment on above: Order Comment: Speci men Type: BLOOD SPECIMENOrdering Facility: [facility] Address: [address] [place] [address] Performed By: #### 5 7021-8 ####JILLESTRELLA [facility] LABORATORYCLIA [id number] [address] STATES [facility] MCHC (RBC) [Mass/Vol] 33.5 g/dL Normal 30.5-36.0 [facility] Comment on above: Order Comment: Speci men Type: BLOOD SPECIMENOrdering Facility: [facility] Address: [address] [place] [address] Performed By: #### 5 7021-8 ####JILLESTRELLA [facility] LABORATORYCLIA [id number] [place] [address] [place] MCV (RBC) [Entitic vol] 88.8 fL Normal 80.0-100.0 [facility] Comment on above: Order Comment: Speci men Type: BLOOD SPECIMENOrdering Facility: [facility] Address: [address] [place] [address] Performed By: #### 5 7021-8 ####JILLESTRELLA [facility] LABORATORYCLIA [id number] [place] [address] [place] Monocytes (Bld) [#/Vol] 0.89 10*3/uL High <0.87 [facility] Comment on above: Order Comment: Speci men Type: BLOOD SPECIMENOrdering Facility: [facility] Address: [address] [place] [address] Performed By: #### 5 7021-8 ####JILLESTRELLA [facility] LABORATORYCLIA [id number] [address] [place] Monocytes/100 WBC (Bld) 11.9 % Normal [facility] Comment on above: Order Comment: Speci men Type: BLOOD SPECIMENOrdering Facility: [facility] Address: [address] [place] [address] Performed By: #### 5 7021-8 ####JILLESTRELLA [facility] LABORATORYCLIA [id number] [place] [address] [place] Neutrophils (Bld) [#/Vol] 4.69 10*3/uL Normal 1.45-7.50 [facility] Comment on above: Order Comment: Speci men Type: BLOOD SPECIMENOrdering Facility: [facility] Address: [address] [place] [address] Performed By: #### 5 7021-8 ####PAM [facility] LABORATORYCLIA [id number] [place] [address] [place] Neutrophils/100 WBC (Bld) 62.8 % Normal [facility] Comment on above: Order Comment: Speci men Type: BLOOD SPECIMENOrdering Facility: [facility] Address: [address] [place] [address] Performed By: #### 5 7021-8 ####PAM [facility] LABORATORYCLIA [id number] [place] [address] [place] Nucleated RBC (Bld) [#/Vol] 10*3/uL Normal <0.01 [facility] Comment on above: Order Comment: Speci men Type: BLOOD SPECIMENOrdering Facility: [facility] Address: [address] [place] [address] Performed By: #### 5 7021-8 ####PAM [facility] HOSPITALIA [id number] [address] Nucleated RBC/100 WBC (Bld) [Ratio] 0.0 /100 WBC Normal [facility] Comment on above: Order Comment: Speci men Type: BLOOD SPECIMENOrdering Facility: [facility] Address: [address] [place] [address] Performed By: #### 5 7021-8 ####PAM [facility] LABORATORYIA [id number] [place] [address] [place] [facility] [place] Platelet mean volume (Bld) [Entitic vol] 9.5 fL Normal 9.0-12.7 [facility] Comment on above: Order Comment: Speci men Type: BLOOD SPECIMENOrdering Facility: [facility] Address: [address] [place] [address] Performed By: #### 5 7021-8 ####PAM [facility] LABORATORYIA [id number] [place] [address] [place] Platelets (Bld) [#/Vol] 201 10*3/uL Normal 150-400 [facility] Comment on above: Order Comment: Speci men Type: BLOOD SPECIMENOrdering Facility: [facility] Address: [address] [place] [address] Performed By: #### 5 7021-8 ####JILLESTRELLA [facility] LABORATORYCLIA [id number] [place] [address] [facility] RBC (Bld) [#/Vol] 4.30 10*6/uL Normal 4.20-6.00 [facility] Comment on above: Order Comment: Speci men Type: BLOOD SPECIMENOrdering Facility: [facility] Address: [address] [place] [address] Performed By: #### 5 7021-8 ####JILLESTRELLA [facility] HOSPITALIA [id number] [address] WBC (Bld) [#/Vol] 7.48 10*3/uL Normal 3.70-11.00 [facility] Comment on above: Order Comment: Speci men Type: BLOOD SPECIMENOrdering Facility: [facility] Address: [address] [place] [address] Performed By: #### 5 7021-8 ####JILLESTRELLA [facility] HOSPITALIA [id number] [address] [place] BRAIN WO IVCONon 10-15-19 CT BRAIN WO IVCON Normal [facility] Comprehensive metabolic 2000 panelon 10-15-2024 Albumin [Mass/Vol] 3.5 g/dL Low 3.9-4.9 [facility] Comment on above: Order Comment: Speci men Type: BLOOD SPECIMENOrdering Facility: [facility] Address: [address] [place] [address] Performed By: #### 2 4323-8, 01658-8 ####JILLESTRELLA [facility] LABORATORYIA [id number] [address] [place] ALP [Catalytic activity/Vol] 104 U/L Normal 38-113 [facility] Comment on above: Order Comment: Speci men Type: BLOOD SPECIMENOrdering Facility: [facility] Address: [address] [place] [address] Performed By: #### 2 4323-8, ####PAM [facility] LABORATORYCLIA [id number] [place] [address] [place] ALT [Catalytic activity/Vol] 12 U/L Normal 10-54 [facility] Comment on above: Order Comment: Speci men Type: BLOOD SPECIMENOrdering Facility: [facility] Address: [address] [place] [address] Performed By: #### 2 4323-8, ####PAM [facility] LABORATORYCLIA [id number] [place] [address] [place] Anion gap [Moles/Vol] 10 mmol/L Normal 8-15 [facility] Comment on above: Order Comment: Speci men Type: BLOOD SPECIMENOrdering Facility: [facility] Address: [address] [place] [address] Performed By: #### 2 432-8, ####PAM [facility] LABORATORYCLIA [id number] [address] [place] AST [Catalytic activity/Vol] 14 U/L Normal 14-40 [facility] Comment on above: Order Comment: Speci men Type: BLOOD SPECIMENOrdering Facility: [facility] Address: [address] [place] [address] Performed By: #### 2 4323-8, ####PAM [facility] LABORATORYCLIA [id number] [place] [address] [place] Bilirubin [Mass/Vol] 0.3 mg/dL Normal 0.2-1.3 [facility] Comment on above: Order Comment: Speci men Type: BLOOD SPECIMENOrdering Facility: [facility] Address: [address] [place] [address] Performed By: #### 2 4323-8, ####PAM [facility] LABORATORYCLIA [id number] [place] [address] [place] Calcium [Mass/Vol] 8.9 mg/dL Normal 8.5-10.2 [facility] Comment on above: Order Comment: Speci men Type: BLOOD SPECIMENOrdering Facility: [facility] Address: [address] [place] [address] Performed By: #### 2 4323-8, ####JILLESTRELLA [facility] LABORATORYCLIA [id number] [place] [address] [place] Chloride [Moles/Vol] 108 mmol/L High 98-107 [facility] Comment on above: Order Comment: Speci men Type: BLOOD SPECIMENOrdering Facility: [facility] Address: [address] [place] [address] Performed By: #### 2 4323-8, ####PAM [facility] LABORATORYIA [id number] [place] [address] [place] CO2 [Moles/Vol] 25 mmol/L Normal 22-30 [facility] Comment on above: Order Comment: Speci men Type: BLOOD SPECIMENOrdering Facility: [facility] Address: [address] [place] [address] Performed By: #### 2 4323-8, ####JILLESTRELLA [facility] LABORATORYIA [id number] [place] [address] [place] Creatinine [Mass/Vol] 1.23 mg/dL High 0.73-1.22 [facility] Comment on above: Order Comment: Speci men Type: BLOOD SPECIMENOrdering Facility: [facility] Address: [address] [place] [address] Performed By: #### 2 4323-8, ####JILLESTRELLA [facility] LABORATORYIA [id number] [place] [address] [place] Creatinine and Glomerular filtration rate.predicted panel (S/P/Bld) 59 mL/min/1.73m??? Low >=60 [facility] Comment on above: Order Comment: Raghu sandoval Type: BLOOD SPECIMENOrdering Facility: [facility] Address: [address] [place] [id number] Result Comment: Carlita mated Glomerular Filtration Rate [...] actual GFR. Performed By: #### 2 4323-8, 81224-6 ####PAM [facility] LABORATORYCLIA [id number] [place] [address] [place] Glucose [Mass/Vol] 107 mg/dL High 74-99 [facility] Comment on above: Order Comment: Raghu sandoval Type: BLOOD SPECIMENOrdering Facility: [facility] Address: [address] [place] [address] Result Comment: The [place] Diabetes Association (ADA) provides guidance for cutoff [...] Standards of Medical Care in Diabetes 2016, [place] Diabetes Association. Diabetes Care. 2016.39(Suppl 1). Performed By: #### 2 4323-8, 36773-9 ####PAM [facility] LABORATORYCLIA [id number] [place] [address] [place] Potassium [Moles/Vol] 3.7 mmol/L Normal 3.7-5.1 [facility] Comment on above: Order Comment: Raghu sandoval Type: BLOOD SPECIMENOrdering Facility: [facility] Address: [address] [phone] Performed By: #### 2 4323-8, ####PAM [facility] LABORATORYCLIA [id number] [place] [address] [place] Protein [Mass/Vol] 6.5 g/dL Normal 6.3-8.0 [facility] Comment on above: Order Comment: Speci men Type: BLOOD SPECIMENOrdering Facility: [facility] Address: [address] [place] [address] Performed By: #### 2 4323-8, ####JILLESTRELLA [facility]ORATORYCLIA [id number] [place] [address] [place] Sodium [Moles/Vol] 143 mmol/L Normal 136-144 [facility] Comment on above: Order Comment: Speci men Type: BLOOD SPECIMENOrdering Facility: [facility] Address: [address] [place] [address] Performed By: #### 2 4323-8, ####JILLESTRELLA [facility] LABORATORYCLIA [id number] [place] [address] [place] Urea nitrogen [Mass/Vol] 18 mg/dL Normal 9-24 [facility] Comment on above: Order Comment: Speci men Type: BLOOD SPECIMENOrdering Facility: [facility] Address: [address] [place] [address] Performed By: #### 2 4323-8, 24423-9 ####PAM [facility] LABORATORYCLIA [id number] [place] [address] [place] ECG COMPLETEon 10-15-2024 ECG COMPLETE Normal [facility] ED NOTEon 10-15-2024 ED NOTE HNO ID: [id number] Author: BRINDA ADEN RN Service: Nursing Author Type: Registered Nurse Type: ED Notes Filed: 10/15/2024 15:34 Note Text: Report given to MMT, all questions answered, son to meet at [place]. Normal [facility] ED NOTE HNO ID: [id number] Author: BRINDA ADEN RN Service: Nursing Author Type: Registered Nurse Type: ED Notes Filed: 10/15/2024 14:30 Note Text: Report called to [place], all questions answered, patient and son updated on POC Normal [facility] ED NOTE Normal [facility] ED PROV NOTEon 10-15-2024 ED PROV NOTE Normal [facility] HISTORY PHYSICALon HISTORY PHYSICAL HNO ID: [id number] Author: NUBIA SALINAS MD Service: Hospital Medicine Author Type: Physician Type: H&P Filed: 10/16/2024 01:42 Note Text: DEPARTMENT OF HOSPITAL MEDICINE HISTORY AND PHYSICAL EXAM SERVICE DATE: 10/15/2024 SERVICE TIME: 5:16 PM Primary Care Physician: Adama Mendoza MD NIGHT AND WEEKEND COVERAGE: RANDOLPH COVERAGE: Days: [phone], please page attending physician. Nights: [phone], please page [place] Hospitalist Night coverage pager [phone]. Subjective CHIEF COMPLAINT: AMS/hypersomnolence.LKN 8pm 10/14/24. 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 He is currently taking Aricept and Namenda. [...] currently being (more content not included)... Normal [facility] Magn[facility] [Mass/Vol] 1.6 mg/dL Low 1.7-2.3 [facility] Comment on above: Order Comment: Speci men Type: BLOOD SPECIMENOrdering Facility: [facility] Address: [address] [place] [address] Performed By: #### 2 4323-8, 00010-1 ###BRONSON [facility] LABORATORYCLIA [id number] [address] STATES OF [facility] SEPSIS LACTATE W/ REFLEX (IN ITIAL)on 10-15-2024 Lactate [Moles/Vol] 1.1 mmol/L Normal <=2.0 [facility] Comment on above: Order Comment: Speci men Type: BLOOD SPECIMENOrdering Facility: [facility] Address: [address] [place] [address] Performed By: #### S LACTR ####JILLJERSON [facility] LABORATORYCLIA [id number] [address] [place] Urinalysis complete panel (U )on 10-15-2024 Bilirubin Ql (U) Negative Normal Negative [facility] Comment on above: Order Comment: Speci men Type: URINE SPECIMENOrdering Facility: [facility] Address: [address] [place] [address] Performed By: #### 2 4356-8 ####JILLESTRELLA [facility]ORATORYCLIA [id number] [place] [address] [place] Clarity (Unsp spec) Clear Normal Clear [facility] Comment on above: Order Comment: Speci men Type: URINE SPECIMENOrdering Facility: [facility] Address: [address] [place] [address] Performed By: #### 2 4356-8 ####JILLESTRELLA [facility] LABORATORYIA [id number] [place] [address] [place] Color (U) Yellow Normal yellow [facility] Comment on above: Order Comment: Speci men Type: URINE SPECIMENOrdering Facility: [facility] Address: [address] [place] [address] Performed By: #### 2 4356-8 ####JILLESTRELLA [facility] LABORATORYIA [id number] [place] [address] [place] Glucose Test strip (U) [Mass/Vol] Negative Normal Trace, Negative [facility] Comment on above: Order Comment: Speci men Type: URINE SPECIMENOrdering Facility: [facility] Address: [address] [place] [address] Performed By: #### 2 4356-8 ####PAM [facility] LABORATORYIA [id number] [place] [address] [place] Hemoglobin Ql (U) Negative Normal Negative, Trace [facility] Comment on above: Order Comment: Speci men Type: URINE SPECIMENOrdering Facility: [facility] Address: [address] [place] [address] Performed By: #### 2 4356-8 ####PAM [facility]ORATORYCLIA [id number] [place] [address] [place] Ketones Ql (U) Negative Normal Negative, Trace [facility] Comment on above: Order Comment: Speci men Type: URINE SPECIMENOrdering Facility: [facility] Address: [address] [place] [address] Performed By: #### 2 4356-8 ####JILLESTRELLA [facility] LABORATORYCLIA [id number] [address] Leukocyte esterase Test strip Ql (U) Negative Normal Negative, 25 Dieter/uL [facility] Comment on above: Order Comment: Speci men Type: URINE SPECIMENOrdering Facility: [facility] Address: [address] [place] [address] Performed By: #### 2 4356-8 ####JILLESTRELLA [facility] LABORATORYIA [id number] [address] STATES [facility] Nitrite Ql (U) Negative Normal Negative [facility] Comment on above: Order Comment: Speci men Type: URINE SPECIMENOrdering Facility: [facility] Address: [address] [place] [address] Performed By: #### 2 4356-8 ####JILLESTRELLA [facility] LABORATORYIA [id number] [place] [address] [place] [facility] pH (U) 5.5 [pH] Normal 5.0-8.0 [facility] Comment on above: Order Comment: Speci men Type: URINE SPECIMENOrdering Facility: [facility] Address: [address] [place] [address] Performed By: #### 2 4356-8 ####PAM [facility] LABORATORYIA [id number] [address] STATES [facility] Protein (U) [Mass/Vol] 1+ Abnormal Trace , Negative [facility] Comment on above: Order Comment: Speci men Type: URINE SPECIMENOrdering Facility: [facility] Address: [address] [place] [address] Performed By: #### 2 4356-8 ####JILLESTRELLA [facility] LABORATORYIA [id number] [place] [address] [place] RBC LM.HPF (Urine sed) [#/Area] 0-3 /HPF Normal 0-3 /HPF [facility] Comment on above: Order Comment: Speci men Type: URINE SPECIMENOrdering Facility: [facility] Address: [address] [place] [address] Performed By: #### 2 4356-8 ####JILLESTRELLA [facility] LABORATORYCLIA [id number] [place] [address] [place] Specific gravity (U) [Rel density] 1.028 Normal 1.005-1.03 0 [facility] Comment on above: Order Comment: Speci men Type: URINE SPECIMENOrdering Facility: [facility] Address: [address] [place] [address] Performed By: #### 2 4356-8 ####PAM [facility] LABORATORYCLIA [id number] [address] Urobilinogen Ql (U) Normal Normal Normal [facility] Comment on above: Order Comment: Speci men Type: URINE SPECIMENOrdering Facility: [facility] Address: [address] [place] [address] Performed By: #### 2 4356-8 ####PAM [facility] LABORATORYIA [id number] [address] WBC LM.HPF (Urine sed) [#/Area] 0-5 /HPF Normal 0-5 /HPF [facility] Comment on above: Order Comment: Speci men Type: URINE SPECIMENOrdering Facility: [facility] Address: [address] [place] [address] Performed By: #### 2 4356-8 ####PAM [facility] LABORATORYIA [id number] [address] [place] XR CHEST [...] Bilateral basilar atelectasis. Possible trace pleural effusions. Executor Of Estate: PSCB Transcribe Date/Time: Oct 16 2024 8:54A Dictated by : TANIA MCDONALD MD This examination was interpreted and the report reviewed and electronically signed by: TANIA MCDONALD MD on Oct 16 2024 8:56AM EST [id number] [facility] CNNURSEon 10-14-2024 CNNURSE Normal [facility] CNOVon 10-14-2024 CNOV Normal [facility] CNOV Normal [facility] ECG COMPLETEon 10-14-2024 ECG COMPLETE Normal [facility] CNOVon 10-11-2024 CNOV Normal [facility] CNPNon 09-22-2024 CNPN Normal [facility] 12 Lead EKGon 09-21-2024 12 Lead EKG [facility] Cardiovascular Services [address] [place] [address] 12 Lead EKG 09/21/24 0121 MR#: [id number] Acct: [id number] Name: NARA JOHNSON Rep #: [id number] [...] ECG Confirmed by PEARL LANTIGUA, CAYDEN ([id number]), publications editor SALINAS RAM ([id number]) on 09/22/2024 10:57:00 AM Referred By: Confirmed By: CAYDEN MORTON MD 09/22/24 1057 Date Cayden Morton MD CC: Dr. Adama Mendoza MD; Dr. Fish Burnette DO Signed Normal [facility] Brain/Head without Contrasto n 09-21-2024 Brain/Head without Contrast [facility] Imaging Services [address] [place] [address] Brain/Head without Contrast MR#: [id number] Acct: [id number] Name: NARA JOHNSON Rep #: [id number] : 1945 M 79 From: Porfirio mayberry MD PCP: Dr. Adama Mendoza MD Status: REG ER Study: Brain/Head without Contrast Date of Exam: 09/04 05/28 Exam# [id number] Ordering Dr: Fish Burnette DO :[id number] EXAM: CT HEAD WITHOUT INTRAVENOUS CONTRAST CLINICAL [...] Adama Mendoza MD; Dr. Fish Burnette DO Executor Of Estate: Signed Normal [facility] CBC W/Diff, Automatedon 09-04 Absolute Lymph 1.52 X10 3/uL Normal 0.83-4.51 [facility] Comment on above: Performed By: #### L 500.4050, L100.0100 #### [facility] [address] [place], [address] Absolute Neut 6.6 X10 3/uL Normal 2.0-7.7 [facility] Comment on above: Performed By: #### L 500.4050, L100.0100 #### [facility] [address] [place], [address] Basophils/100 WBC (Bld) 0.3 % Normal 0-1 [facility] Comment on above: Performed By: #### L 500.4050, L100.0100 #### [facility] [address] [place], [address] Eosinophils/100 WBC (Bld) 1.9 % Normal 0-5 [facility] Comment on above: Performed By: #### L 500.4050, L100.0100 #### [facility] [address] [place], [address] Erythrocyte distribution width (RBC) [Ratio] 13.7 % Normal 11.6-14.6 [facility] Comment on above: Performed By: #### L 500.4050, L100.0100 #### [facility] [address] [place], [address] Hematocrit (Bld) [Volume fraction] 40.0 % Normal 40-54 [facility] Comment on above: Performed By: #### L 500.4050, L100.0100 #### [facility] [address] [place], [address] Hemoglobin (Bld) [Mass/Vol] 13.4 g/dL Normal 13.0-16.5 [facility] Comment on above: Performed By: #### L 500.4050, L100.0100 #### [facility] [address] [place], [address] IG% 0.400 Normal 0.0-0.9 [facility] Comment on above: Result Comment: IG% - Immature Granulocytes (promyelocytes, myelocytes and metamyelocytes) > 1% indicates that a LEFT SHIFT is Present. Performed By: #### L 500.4050, L100.0100 #### [facility] [address] [place], [address] Lymphocytes/100 WBC (Bld) 16.0 % Low 19-41 [facility] Comment on above: Performed By: #### L 500.4050, L100.0100 #### [facility] [address] [place], [address] MCH (RBC) [Entitic mass] 30.0 pg Normal 27.0-32.0 [facility] Comment on above: Performed By: #### L 500.4050, L100.0100 #### [facility] [address] [place], [address] MCHC (RBC) [Mass/Vol] 33.5 g/dL Normal 32-36 [facility] Comment on above: Performed By: #### L 500.4050, L100.0100 #### [facility] [address] [place], [address] MCV (RBC) [Entitic vol] 89.5 fL Normal 80-94 [facility] Comment on above: Performed By: #### L 500.4050, L100.0100 #### [facility] [address] [place], [address] Monocytes/100 WBC (Bld) 11.6 % High 0-10 [facility] Comment on above: Performed By: #### L 500.4050, L100.0100 #### [facility] [address] [place], [address] Neutrophils/100 WBC (Bld) 69.8 % Normal 47-70 [facility] Comment on above: Performed By: #### L 500.4050, L100.0100 #### [facility] [address] [place], [address] Nucleated RBC (Bld) [#/Vol] 0 10*3/uL Normal 0-5 [facility] Comment on above: Performed By: #### L 500.4050, L100.0100 #### [facility] [address] [place], [address] Platelet mean volume (Bld) [Entitic vol] 9.9 fL Normal 6.2-12.0 [facility] Comment on above: Performed By: #### L 500.4050, L100.0100 #### [facility] [address] [place], [address] Platelets (Bld) [#/Vol] 194 10*3/uL Normal 150-450 [facility] Comment on above: Performed By: #### L 500.4050, L100.0100 #### [facility] [address] [place], [address] RBC (Bld) [#/Vol] 4.47 10*6/uL Low 4.6-6.2 [facility] Comment on above: Performed By: #### L 500.4050, L100.0100 #### [facility] [address] [place], [address] RDW SD 44.7 fl High 35.1-43.9 [facility] Comment on above: Performed By: #### L 500.4050, L100.0100 #### [facility] [address] [place], [address] WBC (Bld) [#/Vol] 9.5 10*3/uL Normal 4.4-11.0 [facility] Comment on above: Performed By: #### L 500.4050, L100.0100 #### [facility] [address] [place], [address] CNPNon 09-21-2024 CNPN Normal [facility] Chest PA and Lateralon 09-21 Chest PA and Lateral [facility] Imaging Services [address] [place] [address] Chest PA and Lateral MR#: [id number] Acct: [id number] Name: NARA JOHNSON Rep #: [id number] : 1945 M 79 From: Porfirio mayberry MD PCP: Dr. Adama Mendoza MD Status: [facility] ER Study: Chest PA and Lateral Date of Exam: 09/21/24 Exam# [id number] Ordering Dr: Fish Burnette DO :[id number] EXAM: XR CHEST, 2 VIEWS CLINICAL INDICATION: [...] Adama Mendoza MD; Dr. Fish Burnette DO Executor Of Estate: Signed Normal [facility] Comprehensive Metabolic Prof [facility] 09-21-2024 Albumin [Mass/Vol] 3.0 g/dL Low 3.2-5.0 [facility] Comment on above: Performed By: #### L 500.4050, L100.0100 #### [facility] [address] [facility] [place], [address] Albumin/Globulin [Mass ratio] 0.8 {ratio} Low 0.9-2.4 [facility] Comment on above: Performed By: #### L 500.4050, L100.0100 #### [facility] [address] [place], [address] ALK P 84 U/L Normal 45-117 [facility] Comment on above: Performed By: #### L 500.4050, L100.0100 #### [facility] [address] [place], [address] ALT [Catalytic activity/Vol] 20 U/L Normal 16-61 [facility] Comment on above: Performed By: #### L 500.4050, L100.0100 #### [facility] [address] [place], [address] AST [Catalytic activity/Vol] 14 U/L Low 15-37 [facility] Comment on above: Performed By: #### L 500.4050, L100.0100 #### [facility] [address] [place], [address] Bilirubin [Mass/Vol] 0.40 mg/dL Normal 0.20-1.00 [facility] Comment on above: Result Comment: For patients on eltrombopag therapy, use of Dimension [place] TBIL is not recommended. Performed By: #### L 500.4050, L100.0100 #### [facility] [address] [place], [address] BUN/CRE 17.9 RATIO Normal 10-20 [facility] Comment on above: Performed By: #### L 500.4050, L100.0100 #### [facility] [address] [place], [address] CA,Total 8.9 mg/dL Normal 8.5-10.1 [facility] Comment on above: Performed By: #### L 500.4050, L100.0100 #### [facility] [address] [place], [address] Chloride [Moles/Vol] 112 mmol/L High 98-107 [facility] Comment on above: Performed By: #### L 500.4050, L100.0100 #### [facility] [address] [place], [address] CO2 [Moles/Vol] 26.0 mmol/L Normal 21.0-32.0 [facility] Comment on above: Performed By: #### L 500.4050, L100.0100 #### [facility] [address] [place], [address] Creatinine [Mass/Vol] 1.23 mg/dL Normal 0.70-1.30 [facility] Comment on above: Result Comment: The validity of the calculated GFR GFRAA in patients over 70 years has not been determined. Clinical correlation is essential. Performed By: #### L 500.4050, L100.0100 #### [facility] [address] [place], [address] ECRCL 51.70 ml/min Normal [facility] Comment on above: Performed By: #### L 500.4050, L100.0100 #### [facility] [address] [place], [address] EST GFR - AA 73 mL/min Normal >60 [facility] Comment on above: Result Comment: Afri can [place] GFR Calc Performed By: #### L 500.4050, L100.0100 #### [facility] [address] [place], [address] GAP 4 Low 5-15 [facility] Comment on above: Performed By: #### L 500.4050, L100.0100 #### [facility] [address] [place], [address] GFR/1.73 sq M.predicted among non-blacks MDRD (S/P/Bld) [Vol rate/Area] 60 mL/min/{1.73_m2} Normal >60 [facility] Comment on above: Result Comment: Non- GFR Calc Performed By: #### L 500.4050, L100.0100 #### [facility] [address] [place], [address] Globulin (S) [Mass/Vol] 3.8 g/dL Normal 2.2-4.2 [facility] Comment on above: Performed By: #### L 500.4050, L100.0100 #### [facility] [address] [place], [address] Glucose [Mass/Vol] 118 mg/dL High 74-106 [facility] Comment on above: Result Comment: Fast ing Glucose result from 100 to 125 mg/dL suggests IMPAIRED HOMEOSTASIS per A.D.A. criteria. Performed By: #### L 500.4050, L100.0100 #### [facility] [address] [place], [address] Potassium [Moles/Vol] 3.7 mmol/L Normal 3.5-5.1 [facility] Comment on above: Performed By: #### L 500.4050, L100.0100 #### [facility] [address] [place], [address] Sodium [Moles/Vol] 142 mmol/L Normal 136-145 [facility] Comment on above: Performed By: #### L 500.4050, L100.0100 #### [facility] [address] [place], [address] T PROT 6.8 g/dL Normal 6.4-8.2 [facility] Comment on above: Performed By: #### L 500.4050, L100.0100 #### [facility] [address] [place], [address] Urea nitrogen [Mass/Vol] 22 mg/dL High 7-18 [facility] Comment on above: Performed By: #### L 500.4050, L100.0100 #### [facility] [address] [place], [address] Emergency Department Summary on 09-21-2024 Emergency Department Summary [facility] Medical Records Department [address] [place] [address] Emergency Department Summary 09/21/24 MR#: [id number] Acct: [id number] Name: NARA JOHNSON Rep #: [id number] [...] no family is here for discussion. [facility] Medical History Dementia Abnormal nuclear stress test Obesity Old inferior wall myocardial infarction OAB (overactive bladder) Obstructive sleep apnea Rosacea Actinic keratoses Anemia Abdominal aortic aneurysm (AAA) Atherosclerotic heart disease of [place] coronary artery without angina pectoris Ischemic cerebrovascular [...] PT UNSURE Verified 09/21/24 00:57 OF REACTION Layvsam-XUU-KwO Reductase Allergy Other Verified 09/21/24 00:57 Inhibitor (Shpzboq-Tsa-Wuh Reductase Inhibitor) ezetimibe (From Zetia) AdvReac PT [...] Pressure Carla (more content not included)... Normal [facility] M100.678on 09-21-2024 M100.678 Pending SARS-CoV-2 (COVID 19) Negative INFLUENZA A Negative INFLUENZA B Negative RSV PCR Negative Normal [facility] Comment on above: Performed By: #### M 100.678 #### [facility] [address] [place], [address] Urinalysis, Completeon 09-21 EPI,SQUAMOUS 0-5 SEEN Normal 0-5 [facility] Comment on above: Order Comment: CLEAN CATCH Performed By: #### L 400.0001 #### [facility] [address] [place], [address] BILIRUBIN URINE Negative Normal Negative [facility] Comment on above: Order Comment: CLEAN CATCH Performed By: #### L 400.0001 #### [facility] [address] [place], [address] Clarity (U) Clear Normal Clear [facility] Comment on above: Order Comment: CLEAN CATCH Performed By: #### L 400.0001 #### [facility] [address] [place], [address] Color (U) Yellow Normal Yellow [facility] Comment on above: Order Comment: CLEAN CATCH Performed By: #### L 400.0001 #### [facility] [address] [place], [address] GLUCOSE, UR Normal Normal Normal [facility] Comment on above: Order Comment: CLEAN CATCH Performed By: #### L 400.0001 #### [facility] [address] [place], [address] KETONE UR Negative Normal Negative [facility] Comment on above: Order Comment: CLEAN CATCH Performed By: #### L 400.0001 #### [facility] [address] [place], [address] LEUK ESTERASE Negative Normal Negative [facility] Comment on above: Order Comment: CLEAN CATCH Performed By: #### L 400.0001 #### [facility] [address] [place], [address] Nitrite Ql (U) Negative Normal Negative [facility] Comment on above: Order Comment: CLEAN CATCH Performed By: #### L 400.0001 #### [facility] [address] [place], [address] OCCULT BLOOD-UR Negative Normal Negative [facility] Comment on above: Order Comment: CLEAN CATCH Performed By: #### L 400.0001 #### [facility] [address] [place], [address] pH UR 6.5 Normal 5.0 - 8.0 [facility] Comment on above: Order Comment: CLEAN CATCH Performed By: #### L 400.0001 #### [facility] [address] [place], [address] PROT DIPSTX 15 mg/dl Abnormal Negative [facility] Comment on above: Order Comment: CLEAN CATCH Performed By: #### L 400.0001 #### [facility] [address] [place], [address] SP.GR. DIPSTX 1.010 Normal 1.002-1.03 0 [facility] Comment on above: Order Comment: CLEAN CATCH Performed By: #### L 400.0001 #### [facility] [address] [place], [address] UROBILI Normal Normal Normal [facility] Comment on above: Order Comment: CLEAN CATCH Performed By: #### L 400.0001 #### [facility] [address] [place], [address] BACTERIA 0 SEEN Normal None Seen [facility] Comment on above: Order Comment: CLEAN CATCH Performed By: #### L 400.0001 #### [facility] [address] [place], [address] Mucus Ql (Urine sed) 0 SEEN Normal [facility] Comment on above: Order Comment: CLEAN CATCH Performed By: #### L 400.0001 #### [facility] [address] [place], [address] RBC 0 SEEN Normal 0-5 [facility] Comment on above: Order Comment: CLEAN CATCH Performed By: #### L 400.0001 #### [facility] [address] [place], [address] WBC 0 SEEN Normal 0-5 [facility] Comment on above: Order Comment: CLEAN CATCH Performed By: #### L 400.0001 #### [facility] [address] [place], [address] B. burgdorferi IgG and IgM p candelario (S)on 09-20-2024 B. burgdorferi IgG+IgM Qn (S) Negative Normal Negative [facility] Comment on above: Order Comment: Speci men Type: BLOOD SPECIMENOrdering Facility: [facility] Address: [address] [place] [address] Result Comment: Rece nt infection with B. burgdorferi sensu lato cannot be excluded if the specimen collected within four weeks after the onset of signs and symptoms or within six weeks after a known tick exposure. Clinical and epidemiological correlation is required. Performed By: #### 3 [id number] ####[facility] LABCLIA [id number] [facility] [id number] [address] [place] CNOVon 09-20-2024 CNOV Normal [facility] CNPNon 09-19-2024 CNPN Normal [facility] CNPNon 09-13-2024 CNPN Normal [facility] CNOVon 09-10-2024 CNOV Normal [facility] XR HIP 3V PELV+ AP/LAT LTon 09-10-2024 XR HIP 3V PELV+ AP/LAT LT Normal [facility] CNPNon 09-06-2024 CNPN Normal [facility] CNOVon 08-22-2024 CNOV Normal [facility] SURGICAL PATHOLOGYon 024 CASE REPORT Normal [facility] Comment on above: Order Comment: Speci men Type: TISSUE SPECIMENOrdering Facility: [facility] Address: [address] [place] [address] Result Comment: Surg ical Pathology Report Case: [id number] Provider: Rubén Gonzalez MD Collected: 08/22/2024 01:31 PMOrdering Location: General Surgery Received: 08/22/2024 04:43 PMPathologist: Maira Aparicio MDSpecimen: Soft Tissue, Mass, Biopsy, right mid back mass Performed By: #### S ####[facility] LABCLIA [id number] [place] [address] [place] CLINICAL HISTORY Normal [facility] Comment on above: Order Comment: Speci men Type: TISSUE SPECIMENOrdering Facility: [facility] Address: [address] [place] [address] Result Comment: mass of subcutaneous tissue of backComment: right side Performed By: #### S ####[facility] LABCLIA [id number] [place] [address] [place] FINAL DIAGNOSIS Normal [facility] Comment on above: Order Comment: Speci men Type: TISSUE SPECIMENOrdering Facility: [facility] Address: [address] [place] [address] Result Comment: Soft tissue, back, core biopsy:- Spindle cell lipoma. Performed By: #### S ####[facility] LABCLIA [id number] [place] [address] [place] FINAL PERFORMING LAB Normal [facility] Comment on above: Order Comment: Speci men Type: TISSUE SPECIMENOrdering Facility: [facility] Address: [address] [place] [address] Result Comment: Diag nostic interpretation performed at [facility], [address] [place] [address] CLIA# [id number] Director: Jose Rafael Harris M.D. Performed By: #### S ####[facility] LABCLIA [id number] [place] [address] [place] GROSS DESCRIPTION Normal [facility] Comment on above: Order Comment: Speci men Type: TISSUE SPECIMENOrdering Facility: [facility] Address: [address] [place] [address] Result Comment: A. S oft Tissue, Mass, BiopsyReceived in formalin are two segments of cylindrical tissue aggregating to 2.2 x 0.3 x 0.1 cm, kenyon-white and of a soft consistency. Totally submitted in one cassette.[facility] August 22, 2024 10:19 PMGross examination performed at [facility], [address] [place] [address] Performed By: #### S ####[facility] LABCLIA [id number] [place] [address] [place] US GUIDED SOFT TISSUE MASS B IOPSY (POC) SURG USE ONLYon 08-22-2024 [facility] CNNURSEon 08-16-2024 CNNURSE Normal [facility] CNOVon 08-08-2024 CNOV Normal [facility] CNCOon 08-01-2024 CNCO Letter Text Normal [facility] CNPNon 08-01-2024 CNPN Normal [facility] US CHEST WALL/SOFT TISSUEon 07-27-2024 US CHEST WALL/SOFT TISSUE Invalid Interpretation Code [facility] CBC W Auto Differential pane l (Bld)on 09-11-2024 Basophils (Bld) [#/Vol] 0.05 10*3/uL [facility] Basophils/100 WBC (Bld) 0.5 % [facility] Differential cell count method Nom (Bld) Auto [facility] Eosinophils (Bld) [#/Vol] 0.19 10*3/uL [facility] Eosinophils/100 WBC (Bld) 1.8 % [facility] Erythrocyte distribution width (RBC) [Ratio] 13.6 % 11.5 - 15.0 % [facility] Hematocrit (Bld) [Volume fraction] 41.3 % 39.0 - 51.0 % [facility] Hemoglobin (Bld) [Mass/Vol] 13.3 g/dL 13.0 - 17.0 g/dL [facility] Immature granulocytes (Bld) [#/Vol] 0.07 10*3/uL [facility] Immature granulocytes/100 WBC (Bld) 0.7 % [facility] Interpretation and review of laboratory results Abnormal [facility] Lymphocytes (Bld) [#/Vol] 1.81 10*3/uL [facility] Lymphocytes/100 WBC (Bld) 17.3 % [facility] MCH (RBC) [Entitic mass] 30.0 pg 26.0 - 34.0 pg [facility] MCHC (RBC) [Mass/Vol] 32.2 g/dL 30.5 - 36.0 g/dL [facility] MCV (RBC) [Entitic vol] 93.0 fL 80.0 - 100.0 fL [facility] Monocytes (Bld) [#/Vol] 1.07 10*3/uL High [facility] Monocytes/100 WBC (Bld) 10.2 % [facility] Neutrophils (Bld) [#/Vol] 7.25 10*3/uL [facility] Neutrophils/100 WBC (Bld) 69.5 % [facility] Nucleated RBC (Bld) [#/Vol] [facility] Nucleated RBC/100 WBC (Bld) [Ratio] 0.0 % /100 WBC [facility] Platelet mean volume (Bld) [Entitic vol] 10.8 fL 9.0 - 12.7 fL [facility] Platelets (Bld) [#/Vol] 273 10*3/uL [facility] RBC (Bld) [#/Vol] 4.44 10*6/uL 4.20 - 6.00 m/uL [facility] WBC (Bld) [#/Vol] 10.44 10*3/uL [facility] XR Foot - left AP and Latera l and obliqueon 03-11-2024 IMPRESSION: No acute osseous abnormality. Degenerative changes as described. Executor Of Estate: TITUS Transcribe Date/Time: Mar 11 2024 8:55A Dictated by : MONICA WISE DO This examination was interpreted and the report reviewed and electronically signed by: MONICA WISE DO on Mar 11 2024 8:58AM [facility] DIVISION OF RADIOLOGY * * *Final Report* [...] proximal plantar fascia. DIVISION OF RADIOLOGY Provider, [facility] - 03/11/2024 * * *Final Report* [...] acute osseous abnormality. Degenerative changes as described. Executor Of Estate: TITUS Transcribe Date/Time: Mar 11 2024 8:55A Dictated by : MONICA WISE DO This examination was interpreted and the report reviewed and electronically signed by: MONICA WISE DO on Mar 11 2024 8:58AM EST [facility] XR Foot - left AP and Latera l and obliqueOrdered By: Ccf Provider on 03-11-2024 [facility] XR Foot - left AP and Latera l and obliqueon 03-04-2024 Radiology Study observation (narrative) [facility] CNOVon 01-06-2024 CNOV Office Visit (EEGMDR ) LORY JOHNSON ([id number]) 1945 M NFR Date Time Provider Department 01/06/24 10:15 AM EEG NEUR [facility] EEGMDR During your visit today, we recorded the following information about you: Referring Provider: SHAYE KITCHEN JR [[id number]] Allergies As of Date: 01/06/2024 Noted Allergy [...] mental status type [R41.82] Order(s):EPI EEG ROUTINE [[id number]] Order #: [id number]. #:[id number]: 1 Prescriptions as of 01/08/2024 - pantoprazole [...] 12/14/2019 Anemia [D64.9] Living will on file [VFO9233] 03/26/2022 Advance directive discussed with patient [Z71.8*03/26/2022 Anterior dislocation of right shoulder [S43.014*10/31/2022 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 [*10/31/2022 Calcification of pleura on chest x-ray [J94.8] 10/23/2023 Emphysema lung (HCC) [J43.9] 10/23/2023 Encounter Status:Closed by SHAYE KITCHEN on 01/08/24 [facility] EPIL EEG ROUTINEon [facility] MRA BRAIN WO IVCONon 024 MRA BRAIN WO IVCON * * *Final Report* * * DATE OF EXAM: Dec 23 2023 7:59AM [facility] 0272 - MRA BRAIN WO IVCON / [...] routine protocol without contrast.Intracranial and extracranial 3D [id number]-cxgxlh MRA with 2D multiplanar and 3D maximum [...] The basilar artery is patent. Bilateral proximal manufacturing engineer automotive are patent. Bilateral SCA and PICA are [...] occlusion of the intracranial or extracranial arteries. Executor Of Estate: PSCB Transcribe Date/Time: Dec 23 2023 8:12A Dictated by : LINUS HERNANDEZ DO This examination was interpreted and the report reviewed and electronically signed by: LINUS HERNANDEZ DO on Dec 23 2023 8:19AM EST [id number] [facility] MRA CAROTID WO IVCONon 12-22 MRA CAROTID WO IVCON * * *Final Report* * * DATE OF EXAM: Dec 23 2023 7:59AM [facility] 0275 - MRA CAROTID WO IVCON / [...] routine protocol without contrast.Intracranial and extracranial 3D wxtn-jm-bzmunw MRA with 2D multiplanar and 3D maximum [...] The basilar artery is patent. Bilateral proximal manufacturing engineer automotive are patent. Bilateral SCA and PICA are [...] occlusion of the intracranial or extracranial arteries. Executor Of Estate: TITUS Transcribe Date/Time: Dec 23 2023 8:12A Dictated by : LINUS HERNANDEZ DO This examination was interpreted and the report reviewed and electronically signed by: LINUS HERNANDEZ DO on Dec 23 2023 8:19AM EST [id number] Normal [facility] MRI BRAIN WO IVCONon 024 MRI BRAIN WO IVCON * * *Final Report* * * DATE OF EXAM: Dec 23 2023 7:59AM [facility] 0294 - MRI BRAIN WO IVCON / [...] routine protocol without contrast.Intracranial and extracranial 3D wxef-sv-[id number] MRA with 2D multiplanar and 3D maximum [...] The basilar artery is patent. Bilateral proximal manufacturing engineer automotive are patent. Bilateral SCA and PICA are [...] occlusion of the intracranial or extracranial arteries. Executor Of Estate: TITUS Transcribe Date/Time: Dec 23 2023 8:12A Dictated by : LINUS HERNANDEZ DO This examination was interpreted and the report reviewed and electronically signed by: LINUS HERNANDEZ DO on Dec 23 2023 8:19AM EST [id number] [facility] No Panel Informationon 12-22 [facility] No Panel Informationon 12-14 [facility] SPIROMETRY WITH DILATOR IF O BSTRUCTEDon 12-15-2023 DLCO (ml/min/mmHg) 14.59 ml/min/mmHg [facility] DLCO/VA (ml/min/mmHg/L) 3.69 ml/min/mmHg/L [facility] ERV BOX (L) 0.86 L [facility] VPW31-75% POST (L/S) 0.94 L/S [facility] NMV05-31% PRE (L/S) 0.57 L/S [facility] FEV1 PRE (L) 1.51 L [facility] FEV1/FVC POST (%) 60 % [facility] nd [facility] FEV1/FVC PRE (%) 56 % [facility] FEV1_POST (L) 1.72 L [facility] FRC Box (L) 2.44 L [facility] FVC POST (L) 2.86 L [facility] FVC PRE (L) 2.66 L [facility] IC BOX (L) 1.40 L [facility] PEF POST (L/S) 5.56 L/S [facility] PEF PRE (L/S) 5.19 L/S [facility] RV Box (L) 2.06 L [facility] RV/TLC Box (%) 51 % [facility] TLC Box (L) 4.04 L [facility] VA (L) 3.98 L [facility] VC (L) BOX 2.38 L [facility] Absolute lymphocyte countOrd ered By: Abelardo Lowe on 09-26-2023 Lymphocytes Auto (Unsp spec) [#/Vol] 2.10 10*3/uL 0.83-4.51 [facility] Basophil percentageOrdered B y: Abelardo Lowe on 09-26-2023 Basophil percentage 0 SEEN /hpf 0-5 [facility] Basophils/100 WBC (Bld) 0.6 % 0-1 [facility] Bilirubin [Mass/Vol] 0.50 mg/dL 0.20-1.00 [facility] Comment on above: For patients on eltr ombopag therapy, use of Dimension [place] TBIL is not recommended. Chloride [Moles/Vol] 110 mmol/L 98-107 [facility] Eosinophils/100 WBC (Bld) 4.0 % 0-5 [facility] Glucose [Mass/Vol] 95 mg/dL 74-106 [facility] Neutrophils (Bld) [#/Vol] 4.7 10*3/uL 2.0-7.7 [facility] Neutrophils/100 WBC (Bld) 58.8 % 47-70 [facility] Potassium [Moles/Vol] 4.2 mmol/L 3.5-5.1 [facility] Protein [Mass/Vol] 7.6 g/dL 6.4-8.2 [facility] Sodium [Moles/Vol] 141 mmol/L 136-145 [facility] WBC (Bld) [#/Vol] 8.1 10*3/uL 4.4-11.0 [facility] Bilirubin Test strip Ql (U)O rdered By: Abelardo Lowe on 09-26-2023 Bilirubin Ql (U) Negative Negative [facility] Blood erythrocytes count (nu mber/volume)Ordered By: Abelardo Lowe on 09-26-2023 RBC (Bld) [#/Vol] 4.91 10*6/uL 4.6-6.2 [facility] Blood hemoglobin measurement (mass/volume)Ordered By: Abelardo Lowe on 09-26-2023 Hemoglobin (Bld) [Mass/Vol] 14.4 g/dL 13.0-16.5 [facility] Blood lymphocytes/100 leukoc ytesOrdered By: Abelardo Lowe on 09-26-2023 Lymphocytes/100 WBC (Bld) 26.0 % 19-41 [facility] Blood monocytes/100 leukocyt esOrdered By: Abelardo Lowe on 09-26-2023 Monocytes/100 WBC (Bld) 10.4 % 0-10 [facility] Blood platelet mean volumeOr dered By: Abelardo Lowe on 09-26-2023 Platelet mean volume (Bld) [Entitic vol] 10.2 fL 6.2-12.0 [facility] Determination of erythrocyte mean corpuscular volume (MCV)Ordered By: Abelardo Lowe on 09-26-2023 MCV (RBC) [Entitic vol] 89.4 fL 80-94 [facility] Hematocrit Auto (Bld) [Volum e fraction]Ordered By: Abelardo Lowe on 09-26-2023 Hematocrit (Bld) [Volume fraction] 43.9 % 40-54 [facility] Influenza virus A and B and SARS-CoV-2 (COVID-19) Ag panel - Upper respiratory specimOrdered By: Abelardo Lowe on 09-26-2023 SARS-CoV-2 (COVID-19) RNA KARON+probe Ql (Resp) [facility] Ketones Test strip Ql (U)Ord ered By: Abelardo Lowe on 09-26-2023 Ketones Ql (U) Negative Negative [facility] - Chemistry and C hemistry - challengeOrdered By: Abelardo Lowe on 09-26-2023 ALP [Catalytic activity/Vol] 88 U/L 45-117 [facility] ALT [Catalytic activity/Vol] 33 U/L 16-61 [facility] CO2 [Moles/Vol] 30.0 mmol/L 21.0-32.0 [facility] Globulin (S) [Mass/Vol] 4.2 g/dL 2.2-4.2 [facility] Urea nitrogen/Creatinine [Mass ratio] 11.3 mg/mg 10-20 [facility] - Hematology and Cell countsOrdered By: Abelardo Lowe on 09-26-2023 Erythrocyte distribution width (RBC) [Entitic vol] 44.2 fL 35.1-43.9 [facility] Erythrocyte distribution width (RBC) [Ratio] 13.6 % 11.6-14.6 [facility] Immature granulocytes/100 WBC (Bld) 0.200 % 0.0-0.9 [facility] Comment on above: IG% - Immature Granu locytes (promyelocytes, myelocytes and metamyelocytes) > 1% indicates that a LEFT SHIFT is Present. MCH (RBC) [Entitic mass] 29.3 pg 27.0-32.0 [facility] Nucleated RBC/100 WBC (Bld) [Ratio] 0 % 0-5 [facility] MCHC Auto (RBC) [Mass/Vol]Or dered By: Abelardo Lowe on 09-26-2023 MCHC (RBC) [Mass/Vol] 32.8 g/dL 32-36 [facility] Mucus LM Ql (Urine sed)Order ed By: Abelardo Lowe on 09-26-2023 Mucus Ql (Urine sed) 0 SEEN /hpf [facility] Nitrite Test strip Ql (U)Ord ered By: Abelardo Lowe on 09-26-2023 Nitrite Ql (U) Negative Negative [facility] No Panel InformationOrdered By: Abelardo Lowe on 09-26-2023 Estimated Creatinine Clearance Calc 45.97 ml/min [facility] Estimated GFR (MDRD) Amer 72 mL/min >60 [facility] Comment on above: GFR Calc Estimated GFR (MDRD) Non-Af Amer 60 mL/min >60 [facility] Comment on above: Non- GFR Calc Platelets bldOrdered By: Mahesh Lowe on 09-26-2023 Platelets (Bld) [#/Vol] 197 10*3/uL 150-450 [facility] Protein Test strip Ql (U)Ord ered By: Abelardo Lowe on 09-26-2023 Protein Ql (U) Negative Negative [facility] Serum or plasma albumin ludwin urement (mass/volume)Ordered By: Abelardo Lowe on 09-26-2023 Albumin [Mass/Vol] 3.4 g/dL 3.2-5.0 [facility] Serum or plasma albumin/glob ulin mass ratioOrdered By: Abelardo Lowe on 09-26-2023 Albumin/Globulin [Mass ratio] 0.8 {ratio} 0.9-2.4 [facility] Serum or plasma calcium ludwin urement (mass/volume)Ordered By: Abelardo Lowe on 09-26-2023 Calcium [Mass/Vol] 9.5 mg/dL 8.5-10.1 [facility] Serum or plasma creatinine m easurement (mass/volume)Ordered By: Abelardo Lowe on 09-26-2023 Creatinine [Mass/Vol] 1.24 mg/dL 0.70-1.30 [facility] Comment on above: The validity of the calculated GFR & GFRAA in patients over 70 years has not been determined. Clinical correlation is essential. Serum or plasma urea nitroge n measurement (mass/volume)Ordered By: Abelardo Lowe on 09-26-2023 Urea nitrogen [Mass/Vol] 14 mg/dL 7-18 [facility] Squamous epithelial cells de tection in urine sediment by light microscopyOrdered By: Abelardo Lowe on 09-26-2023 Epithelial cells.squamous LM Ql (Urine sed) 0 SEEN /hpf 0-5 [facility] Thin prep Papanicolaou smear with manual screeningOrdered By: Abelardo Lowe on 09-26-2023 Thin prep Papanicolaou smear with manual screening 22 U/L 15-37 [facility] Thin prep Papanicolaou smear with manual screening 1 5-15 [facility] Urine blood detectionOrdered By: Abelardo Lowe on 09-26-2023 RBC Ql (U) Negative Negative [facility] RBC Ql (U) 0 SEEN /hpf 0-5 [facility] Urine clarityOrdered By: Mahesh Lowe on 09-26-2023 Clarity (U) Clear Clear [facility] Urine color determinationOrd ered By: Abelardo Lowe on 09-26-2023 Color (U) Yellow Yellow [facility] Urine glucose detectionOrder ed By: Abelardo Lwoe on 09-26-2023 Glucose Ql (U) Normal mg/dl Normal [facility] Urine leukocyte esterase det ection by dipstickOrdered By: Abelardo Lowe on 09-26-2023 Leukocyte esterase Test strip Ql (U) Negative Negative [facility] Urine pHOrdered By: Abelardo doan on 09-26-2023 pH (U) 7.0 [pH] 5.0 - 8.0 [facility] Urine sediment bacteria coun t by microscopy (number/high power field)Ordered By: Abelardo Lowe on 09-26-2023 Bacteria LM.HPF (Urine sed) [#/Area] 0 /[HPF] None Seen [facility] Urine specific gravity measu rementOrdered By: Abelardo Lowe on 09-26-2023 Specific gravity (U) [Rel density] 1.005 1.002-1.03 0 [facility] Urobilinogen Auto test strip Ql (U)Ordered By: Abelardo Lowe on 09-26-2023 Urobilinogen Ql (U) Normal mg/dl Normal [facility] CBC W Auto Differential pane l (Bld)on 06-23-2023 Basophils (Bld) [#/Vol] <0.11 k/uL [facility] Basophils/100 WBC (Bld) 0.3 % [facility] Differential cell count method Nom (Bld) Auto [facility] Eosinophils (Bld) [#/Vol] 0.03 10*3/uL <0.46 k/uL [facility] Eosinophils/100 WBC (Bld) 0.4 % [facility] Erythrocyte distribution width (RBC) [Ratio] 12.7 % 11.5 - 15.0 % [facility] Hematocrit (Bld) [Volume fraction] 40.4 % 39.0 - 51.0 % [facility] Hemoglobin (Bld) [Mass/Vol] 13.2 g/dL 13.0 - 17.0 g/dL [facility] Immature granulocytes (Bld) [#/Vol] <0.10 k/uL [facility] Immature granulocytes/100 WBC (Bld) 0.3 % [facility] Lymphocytes (Bld) [#/Vol] 1.34 10*3/uL 1.00 - 4.00 k/uL [facility] Lymphocytes/100 WBC (Bld) 18.1 % [facility] MCH (RBC) [Entitic mass] 29.6 pg 26.0 - 34.0 pg [facility] MCHC (RBC) [Mass/Vol] 32.7 g/dL 30.5 - 36.0 g/dL [facility] MCV (RBC) [Entitic vol] 90.6 fL 80.0 - 100.0 fL [facility] Monocytes (Bld) [#/Vol] 1.02 10*3/uL High <0.87 k/uL [facility] Monocytes/100 WBC (Bld) 13.8 % [facility] Neutrophils (Bld) [#/Vol] 4.97 10*3/uL 1.45 - 7.50 k/uL [facility] Neutrophils/100 WBC (Bld) 67.1 % [facility] Nucleated RBC (Bld) [#/Vol] <0.01 k/uL [facility] Nucleated RBC/100 WBC (Bld) [Ratio] 0.0 /100 WBC [facility] Platelet mean volume (Bld) [Entitic vol] 10.9 fL 9.0 - 12.7 fL [facility] Platelets (Bld) [#/Vol] 179 10*3/uL 150 - 400 k/uL [facility] RBC (Bld) [#/Vol] 4.46 10*6/uL 4.20 - 6.00 m/uL [facility] WBC (Bld) [#/Vol] 7.40 10*3/uL 3.70 - 11.00 k/uL [facility] Urinalysis complete panel (U )on 06-23-2023 Bilirubin Ql (U) Negative Negative [facility] Clarity (Unsp spec) Clear Clear [facility] Color (U) Yellow Yellow [facility] Glucose Test strip (U) [Mass/Vol] Negative Trace, Negative [facility] Hemoglobin Ql (U) Negative Negative, Trace [facility] Ketones Ql (U) Negative Trace, Negative [facility] Leukocyte esterase Test strip Ql (U) Negative Negative, 25 Dieter/uL [facility] Nitrite Ql (U) 2+ Abnormal Negative [facility] pH (U) 5.5 [pH] 5.0 - 8.0 [facility] Protein (U) [Mass/Vol] 1+ Abnormal Trace , Negative [facility] RBC LM.HPF (Urine sed) [#/Area] 0-3 /HPF 0-3 /HPF [facility] Specific gravity (U) [Rel density] 1.027 1.005 - 1.030 [facility] Urobilinogen Ql (U) Negative Negative [facility] WBC LM.HPF (Urine sed) [#/Area] 0-5 /HPF 0-5 /HPF [facility] XR CHEST 2V FRONTAL/LATon [facility] XR Chest PA and Lateralon IMPRESSION: Multiple calcified pleural plaques bilaterally, 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 No definite consolidations. Executor Of Estate: TITUS Transcribe Date/Time: Jun 23 2023 11:15A Dictated by : ERIS CHAN MD This examination was interpreted and the report reviewed and electronically signed by: ERIS CHAN MD on Jun 23 2023 11:18AM [facility] DIVISION OF RADIOLOGY * * *Final Report* [...] shows degenerative changes. DIVISION OF RADIOLOGY Provider, [facility] - 06/23/2023 * * *Final Report* [...] to remote asbestos exposure. No definite consolidations. Executor Of Estate: TITUS Transcribe Date/Time: Jun 23 2023 11:15A Dictated by : ERIS CHAN MD This examination was interpreted and the report reviewed and electronically signed by: ERIS CHAN MD on Jun 23 2023 11:18AM EST [facility] Radiology Study observation (narrative) [facility] XR Chest PA and LateralOrder ed By: [facility] Provider on 06-23-2023 [facility] Absolute lymphocyte countOrd ered By: Harshil Nela on 06-17-2023 Lymphocytes Auto (Unsp spec) [#/Vol] 0.75 10*3/uL 0.83-4.51 [facility] Basophil percentageOrdered B y: Harshil Rondon on 06-17-2023 Basophil percentage 0 SEEN /hpf 0-5 [facility] Basophils/100 WBC (Bld) 0.4 % 0-1 [facility] Bilirubin [Mass/Vol] 0.50 mg/dL 0.20-1.00 [facility] Comment on above: For patients on eltr ombopag therapy, use of Dimension [place] TBIL is not recommended. Chloride [Moles/Vol] 108 mmol/L 98-107 [facility] Eosinophils/100 WBC (Bld) 0.4 % 0-5 [facility] Glucose [Mass/Vol] 125 mg/dL 74-106 [facility] Comment on above: Fasting Glucose resu lt from 100 to 125 mg/dL suggests IMPAIRED HOMEOSTASIS per A.D.A. criteria. Neutrophils (Bld) [#/Vol] 8.4 10*3/uL 2.0-7.7 [facility] Neutrophils/100 WBC (Bld) 81.6 % 47-70 [facility] Potassium [Moles/Vol] 3.6 mmol/L 3.5-5.1 [facility] Protein [Mass/Vol] 7.7 g/dL 6.4-8.2 [facility] Sodium [Moles/Vol] 139 mmol/L 136-145 [facility] WBC (Bld) [#/Vol] 10.3 10*3/uL 4.4-11.0 [facility] Lactate [Moles/Vol] 1.6 mmol/L 0.4-2.0 [facility] Bilirubin Test strip Ql (U)O rdered By: Harshil Rondon on 09-13-2023 Bilirubin Ql (U) Negative Negative [facility] Blood erythrocytes count (nu mber/volume)Ordered By: Harshil Rondon on 06-17-2023 RBC (Bld) [#/Vol] 4.79 10*6/uL 4.6-6.2 [facility] Blood hemoglobin measurement (mass/volume)Ordered By: Harshil Rondon on 06-17-2023 Hemoglobin (Bld) [Mass/Vol] 14.0 g/dL 13.0-16.5 [facility] Blood lymphocytes/100 leukoc ytesOrdered By: Harshil Rondon on 06-17-2023 Lymphocytes/100 WBC (Bld) 7.3 % 19-41 [facility] Blood monocytes/100 leukocyt esOrdered By: Harshil Rondon on 06-17-2023 Monocytes/100 WBC (Bld) 9.9 % 0-10 [facility] Blood platelet mean volumeOr dered By: Harshil Rondon on 06-17-2023 Platelet mean volume (Bld) [Entitic vol] 10.5 fL 6.2-12.0 [facility] Culture, urineOrdered By: Huan Rondon on 06-17-2023 Bacteria identified Cx Nom (U) Culture exhibits no growth. [facility] Determination of erythrocyte mean corpuscular volume (MCV)Ordered By: Harshil Rondon on 06-17-2023 MCV (RBC) [Entitic vol] 89.4 fL 80-94 [facility] Hematocrit Auto (Bld) [Volum e fraction]Ordered By: Harshil Rondon on 06-17-2023 Hematocrit (Bld) [Volume fraction] 42.8 % 40-54 [facility] INR in Blood by Coagulation assayOrdered By: Harshil Rondon on 06-17-2023 INR Coag (Bld) [Relative time] 1.1 {INR} [facility] Influenza virus A and B and SARS-CoV-2 (COVID-19) Ag panel - Upper respiratory specimOrdered By: Harshil Rondon on 06-17-2023 SARS-CoV-2 & FLU Antigen (Rapid) SARS-CoV-2 (COVID 19) [facility] SARS-CoV-2 & FLU Antigen (Rapid) SARS-CoV-2 (COVID 19) [facility] Ketones Test strip Ql (U)Ord ered By: Harshil Rondon on 06-17-2023 Ketones Ql (U) Negative Negative [facility] Laboratory - Chemistry and C hemistry - challengeOrdered By: Harshil Rondon on 06-17-2023 ALP [Catalytic activity/Vol] 85 U/L 45-117 [facility] ALT [Catalytic activity/Vol] 31 U/L 16-61 [facility] CO2 [Moles/Vol] 25.0 mmol/L 21.0-32.0 [facility] Globulin (S) [Mass/Vol] 4.3 g/dL 2.2-4.2 [facility] Urea nitrogen/Creatinine [Mass ratio] 11.0 mg/mg 10-20 [facility] Laboratory - CoagulationOrde red By: Harshil Rondon on 06-17-2023 aPTT Coag (Bld) [Time] 27.2 s 24.1-36.2 [facility] PT Coag (PPP) [Time] 13.8 s 11.7-14.9 [facility] Laboratory - Hematology and Cell countsOrdered By: Harshil Rondon on 06-17-2023 Erythrocyte distribution width (RBC) [Entitic vol] 42.5 fL 35.1-43.9 [facility] Erythrocyte distribution width (RBC) [Ratio] 13.1 % 11.6-14.6 [facility] Immature granulocytes/100 WBC (Bld) 0.400 % 0.0-0.9 [facility] Comment on above: IG% - Immature Granu locytes (promyelocytes, myelocytes and metamyelocytes) > 1% indicates that a LEFT SHIFT is Present. MCH (RBC) [Entitic mass] 29.2 pg 27.0-32.0 [facility] Nucleated RBC/100 WBC (Bld) [Ratio] 0 % 0-5 [facility] Laboratory - Microbiology an d Antimicrobial susceptibilityOrdered By: Harshil Rondon on 06-17-2023 Bacteria identified Cx Nom (Bld) No growth in 5 days. [facility] MCHC Auto (RBC) [Mass/Vol]Or dered By: Harshil Rondon on 06-17-2023 MCHC (RBC) [Mass/Vol] 32.7 g/dL 32-36 [facility] Mucus LM Ql (Urine sed)Order ed By: Harshil Rondon on 06-17-2023 Mucus Ql (Urine sed) 0 SEEN /hpf [facility] Nitrite Test strip Ql (U)Ord ered By: Harshil Rondon on 06-17-2023 Nitrite Ql (U) Negative Negative [facility] No Panel InformationOrdered By: Harshil Rondon on 06-17-2023 Estimated GFR (MDRD) Amer 65 mL/min >60 [facility] Comment on above: GFR Calc Estimated GFR (MDRD) Non-Af Amer 54 mL/min >60 [facility] Comment on above: Non- GFR Calc Platelets bldOrdered By: Adela Rondon on 06-17-2023 Platelets (Bld) [#/Vol] 218 10*3/uL 150-450 [facility] Protein Test strip Ql (U)Ord ered By: Harshil Rondon on 06-17-2023 Protein Ql (U) 100 mg/dl Negative [facility] Serum or plasma albumin ludwin urement (mass/volume)Ordered By: Harshil Rondon on 06-17-2023 Albumin [Mass/Vol] 3.4 g/dL 3.2-5.0 [facility] Serum or plasma albumin/glob ulin mass ratioOrdered By: Harshil Rondon on 06-17-2023 Albumin/Globulin [Mass ratio] 0.8 {ratio} 0.9-2.4 [facility] Serum or plasma calcium ludwin urement (mass/volume)Ordered By: Harshil Rondon on 06-17-2023 Calcium [Mass/Vol] 9.2 mg/dL 8.5-10.1 [facility] Serum or plasma creatinine m easurement (mass/volume)Ordered By: Harshil Rondon on 06-17-2023 Creatinine [Mass/Vol] 1.36 mg/dL 0.70-1.30 [facility] Comment on above: The validity of the calculated GFR & GFRAA in patients over 70 years has not been determined. Clinical correlation is essential. Serum or plasma urea nitroge n measurement (mass/volume)Ordered By: Harshil Rondon on 06-17-2023 Urea nitrogen [Mass/Vol] 15 mg/dL 7-18 [facility] Squamous epithelial cells de tection in urine sediment by light microscopyOrdered By: Harshil Rondon on 06-17-2023 Epithelial cells.squamous LM Ql (Urine sed) 0 SEEN /hpf 0-5 [facility] Thin prep Papanicolaou smear with manual screeningOrdered By: Harshil Rondon on 06-17-2023 Thin prep Papanicolaou smear with manual screening 17 U/L 15-37 [facility] Thin prep Papanicolaou smear with manual screening 6 5-15 [facility] Urine blood detectionOrdered By: Harshil Rondon on 06-17-2023 RBC Ql (U) Negative Negative [facility] RBC Ql (U) 0 SEEN /hpf 0-5 [facility] Urine clarityOrdered By: Adela Rondon on 06-17-2023 Clarity (U) Clear Clear [facility] Urine color determinationOrd ered By: Harshil Rondon on 06-17-2023 Color (U) Yellow Yellow [facility] Urine glucose detectionOrder ed By: Harshil Rondon on 06-17-2023 Glucose Ql (U) Normal mg/dl Normal [facility] Urine leukocyte esterase det ection by dipstickOrdered By: Harshil Rondon on 06-17-2023 Leukocyte esterase Test strip Ql (U) Negative Negative [facility] Urine pHOrdered By: Harshil blanc on 06-17-2023 pH (U) 6.5 [pH] 5.0 - 8.0 [facility] Urine sediment bacteria coun t by microscopy (number/high power field)Ordered By: Harshil Rondon on 06-17-2023 Bacteria LM.HPF (Urine sed) [#/Area] 0 /[HPF] None Seen [facility] Urine specific gravity measu rementOrdered By: Harshil Rondon on 06-17-2023 Specific gravity (U) [Rel density] 1.010 1.002-1.03 0 [facility] Urobilinogen Auto test strip Ql (U)Ordered By: Harshil Rondon on 06-17-2023 Urobilinogen Ql (U) Normal mg/dl Normal [facility] CBC W Auto Differential pane l (Bld)on 04-30-2023 Basophils (Bld) [#/Vol] 0.04 10*3/uL <0.11 k/uL [facility] Basophils/100 WBC (Bld) 0.5 % [facility] Differential cell count method Nom (Bld) Auto [facility] Eosinophils (Bld) [#/Vol] 0.28 10*3/uL <0.46 k/uL [facility] Eosinophils/100 WBC (Bld) 3.3 % [facility] Erythrocyte distribution width (RBC) [Ratio] 12.9 % 11.5 - 15.0 % [facility] Hematocrit (Bld) [Volume fraction] 43.9 % 39.0 - 51.0 % [facility] Hemoglobin (Bld) [Mass/Vol] 14.7 g/dL 13.0 - 17.0 g/dL [facility] Immature granulocytes (Bld) [#/Vol] <0.10 k/uL [facility] Immature granulocytes/100 WBC (Bld) 0.2 % [facility] Lymphocytes (Bld) [#/Vol] 2.08 10*3/uL 1.00 - 4.00 k/uL [facility] Lymphocytes/100 WBC (Bld) 24.5 % [facility] MCH (RBC) [Entitic mass] 29.8 pg 26.0 - 34.0 pg [facility] MCHC (RBC) [Mass/Vol] 33.5 g/dL 30.5 - 36.0 g/dL [facility] MCV (RBC) [Entitic vol] 88.9 fL 80.0 - 100.0 fL [facility] Monocytes (Bld) [#/Vol] 0.96 10*3/uL High <0.87 k/uL [facility] Monocytes/100 WBC (Bld) 11.3 % [facility] Neutrophils (Bld) [#/Vol] 5.11 10*3/uL 1.45 - 7.50 k/uL [facility] Neutrophils/100 WBC (Bld) 60.2 % [facility] Nucleated RBC (Bld) [#/Vol] <0.01 k/uL [facility] Nucleated RBC/100 WBC (Bld) [Ratio] 0.0 /100 WBC [facility] Platelet mean volume (Bld) [Entitic vol] 10.4 fL 9.0 - 12.7 fL [facility] Platelets (Bld) [#/Vol] 240 10*3/uL 150 - 400 k/uL [facility] RBC (Bld) [#/Vol] 4.94 10*6/uL 4.20 - 6.00 m/uL [facility] WBC (Bld) [#/Vol] 8.49 10*3/uL 3.70 - 11.00 k/uL [facility] LIPID PANEL, NONFASTINGon Cholesterol [Mass/Vol] 165 mg/dL <200 mg/dL [facility] HDL Cholesterol, Nonfasting 37 mg/dL Low >39 mg/dL [facility] LDL Cholesterol, Nonfasting 103 mg/dL High <100 mg/dL [facility] LDL/HDL Ratio, Nonfasting 2.78 mg/dL High <2.54 mg/dL [facility] Non HDL Cholesterol, Nonfasting 128 mg/dL <130 mg/dL [facility] Total Chol/HDL Ratio, Nonfasting 4.46 mg/dL <5.10 mg/dL [facility] Triglycerides, Nonfasting 123 mg/dL <150 mg/dL [facility] VLDL Cholesterol, Nonfasting 25 mg/dL <30 mg/dL [facility] HbA1c (Bld)on 10-09-2022 Average glucose Estimated from glycated hemoglobin (Bld) [Mass/Vol] 108 mg/dL [facility] HbA1c (Bld) [Mass fraction] 5.4 % 4.3 - 5.6 % [facility] Absolute lymphocyte counton 07-24-2022 Lymphocytes Auto (Unsp spec) [#/Vol] 2.07 10*3/uL 0.83-4.51 [facility] Work Phone: Basophil percentageon 2021 Basophil percentage 0-5 SEEN /hpf 0-5 [facility] Work Phone: Basophils/100 WBC (Bld) 0.3 % 0-1 [facility] Work Phone: Chloride [Moles/Vol] 108 mmol/L 98-107 [facility]: Eosinophils/100 WBC (Bld) 1.9 % 0-5 [facility] Work Phone: Glucose [Mass/Vol] 143 mg/dL 74-106 [facility] Work Phone: [phone] Comment on above: Fasting Glucose resu lt greater than or equal to 126 mg/dL suggests DIABETES MELLITUS per A.D.A. criteria. Neutrophils (Bld) [#/Vol] 8.2 10*3/uL 2.0-7.7 [facility] Work Phone: Neutrophils/100 WBC (Bld) 72.2 % 47-70 [facility] Work Phone: Potassium [Moles/Vol] 3.8 mmol/L 3.5-5.1 [facility] Work Phone: Sodium [Moles/Vol] 141 mmol/L 136-145 [facility] Work Phone: WBC (Bld) [#/Vol] 11.3 10*3/uL 4.4-11.0 [facility] Work Phone: [phone] Bilirubin Test strip Ql (U)o n 07-24-2022 Bilirubin Ql (U) Negative Negative [facility] Work Phone: Blood erythrocytes count (nu mber/volume)on 07-24-2022 RBC (Bld) [#/Vol] 4.88 10*6/uL 4.6-6.2 [facility] Work Phone: Blood hemoglobin measurement (mass/volume)on 07-24-2022 Hemoglobin (Bld) [Mass/Vol] 14.3 g/dL 13.0-16.5 [facility] Work Phone: Blood lymphocytes/100 leukoc yteson 07-24-2022 Lymphocytes/100 WBC (Bld) 18.3 % 19-41 [facility] Work Phone: Blood monocytes/100 leukocyt eson 07-24-2022 Monocytes/100 WBC (Bld) 6.9 % 0-10 [facility] Work Phone: Blood platelet mean volumeon 07-24-2022 Platelet mean volume (Bld) [Entitic vol] 9.8 fL 6.2-12.0 [facility] Work Phone: [phone] Determination of erythrocyte mean corpuscular volume (MCV)on 07-24-2022 MCV (RBC) [Entitic vol] 88.3 fL 80-94 [facility] Work Phone: [phone] Hematocrit Auto (Bld) [Volum e fraction]on 07-24-2022 Hematocrit (Bld) [Volume fraction] 43.1 % 40-54 [facility] Work Phone: Ketones Test strip Ql (U)on 07-24-2022 Ketones Ql (U) Negative Negative [facility] Work Phone: [phone] Laboratory - Chemistry and C hemistry - challengeon 07-24-2022 CO2 [Moles/Vol] 26.0 mmol/L 21.0-32.0 [facility] Work Phone: [phone] Urea nitrogen/Creatinine [Mass ratio] 11.4 mg/mg 07-24 [facility] Work Phone: [phone] Laboratory - Hematology and Cell countson 07-24-2022 Erythrocyte distribution width (RBC) [Entitic vol] 41.8 fL 35.1-43.9 [facility] Work Phone: [phone] Erythrocyte distribution width (RBC) [Ratio] 12.9 % 11.6-14.6 [facility] Work Phone: [phone] Immature granulocytes/100 WBC (Bld) 0.400 % 0.0-0.9 [facility] Work Phone: [phone] Comment on above: IG% - Immature Granu locytes (promyelocytes, myelocytes and metamyelocytes) > 1% indicates that a LEFT SHIFT is Present. MCH (RBC) [Entitic mass] 29.3 pg 27.0-32.0 [facility] Work Phone: [phone] Nucleated RBC/100 WBC (Bld) [Ratio] 0 % 0-5 [facility] Work Phone: [phone] MCHC Auto (RBC) [Mass/Vol]on 07-24-2022 MCHC (RBC) [Mass/Vol] 33.2 g/dL 32-36 [facility] Work Phone: [phone] Mucus LM Ql (Urine sed)on Mucus Ql (Urine sed) 0 SEEN /hpf [facility] Work Phone: Nitrite Test strip Ql (U)on 07-24-2022 Nitrite Ql (U) Negative Negative [facility] Work Phone: No Panel Informationon 07-24 Estimated Creatinine Clearance Calc 47.11 ml/min [facility] Work Phone: Estimated GFR (MDRD) Amer 73 mL/min >60 [facility] Work Phone: Comment on above: GFR Calc Estimated GFR (MDRD) Non-Af Amer 60 mL/min >60 [facility] Work Phone: Comment on above: Non- GFR Calc Platelets bldon 07-24-2022 Platelets (Bld) [#/Vol] 196 10*3/uL 150-450 [facility] Work Phone: Protein Test strip Ql (U)on 07-24-2022 Protein Ql (U) 30 mg/dl Negative [facility] Work Phone: Serum or plasma calcium ludwin urement (mass/volume)on 07-24-2022 Calcium [Mass/Vol] 9.3 mg/dL 8.5-10.1 [facility] Work Phone: Serum or plasma creatinine m easurement (mass/volume)on 07-24-2022 Creatinine [Mass/Vol] 1.23 mg/dL 0.70-1.30 [facility] Work Phone: Comment on above: The validity of the calculated GFR & GFRAA in patients over 70 years has not been determined. Clinical correlation is essential. Serum or plasma urea nitroge n measurement (mass/volume)on 07-24-2022 Urea nitrogen [Mass/Vol] 14 mg/dL 7-18 [facility] Work Phone: Squamous epithelial cells de tection in urine sediment by light microscopyon 07-24-2022 Epithelial cells.squamous LM Ql (Urine sed) 0-5 SEEN /hpf 0-5 [facility] Work Phone: Thin prep Papanicolaou smear with manual screeningon 07-24-2022 Thin prep Papanicolaou smear with manual screening 7 5-15 [facility] Work Phone: [phone] Urine blood detectionon 07-06 RBC Ql (U) Negative Negative [facility] Work Phone: [phone] RBC Ql (U) 0 SEEN /hpf 0-5 [facility] Work Phone: [phone] Urine clarityon 07-24-2022 Clarity (U) Clear Clear [facility] Work Phone: [phone] Urine color determinationon 07-24-2022 Color (U) Yellow Yellow [facility] Work Phone: [phone] Urine glucose detectionon Glucose Ql (U) Normal mg/dl Normal [facility] Work Phone: [phone] Urine leukocyte esterase det ection by dipstickon 07-24-2022 Leukocyte esterase Test strip Ql (U) Negative Negative [facility] Work Phone: [phone] Urine pHon 07-24-2022 pH (U) 7.0 [pH] 5.0 - 8.0 [facility] Work Phone: [phone] Urine sediment bacteria coun t by microscopy (number/high power field)on 07-24-2022 Bacteria LM.HPF (Urine sed) [#/Area] RARE /hpf None Seen [facility] Work Phone: [phone] Urine specific gravity measu rementon 07-24-2022 Specific gravity (U) [Rel density] 1.010 1.002-1.03 0 [facility] Work Phone: [phone] Urobilinogen Auto test strip Ql (U)on 07-24-2022 Urobilinogen Ql (U) Normal mg/dl Normal [facility] Work Phone: CBC W Auto Differential pane l (Bld)on 03-27-2022 Abs Immature Gran <0.03 <0.10 k/uL [facility] Basophils (Bld) [#/Vol] 0.05 10*3/uL <0.11 k/uL [facility] Basophils/100 WBC (Bld) 0.7 % [facility] Differential cell count method Nom (Bld) Auto [facility] Eosinophils (Bld) [#/Vol] 0.25 10*3/uL <0.46 k/uL [facility] Eosinophils/100 WBC (Bld) 3.5 % [facility] Erythrocyte distribution width (RBC) [Ratio] 13.1 % 11.5 - 15.0 % [facility] Hematocrit (Bld) [Volume fraction] 43.4 % 39.0 - 51.0 % [facility] Hemoglobin (Bld) [Mass/Vol] 14.6 g/dL 13.0 - 17.0 g/dL [facility] Immature Gran % 0.3 % [facility] Lymphocytes (Bld) [#/Vol] 2.12 10*3/uL 1.00 - 4.00 k/uL [facility] Lymphocytes/100 WBC (Bld) 29.7 % [facility] MCH (RBC) [Entitic mass] 29.9 pg 26.0 - 34.0 pg [facility] MCHC (RBC) [Mass/Vol] 33.6 g/dL 30.5 - 36.0 g/dL [facility] MCV (RBC) [Entitic vol] 88.8 fL 80.0 - 100.0 fL [facility] Monocytes (Bld) [#/Vol] 0.97 10*3/uL High <0.87 k/uL [facility] Monocytes/100 WBC (Bld) 13.6 % [facility] Neutrophils (Bld) [#/Vol] 3.74 10*3/uL 1.45 - 7.50 k/uL [facility] Neutrophils/100 WBC (Bld) 52.2 % [facility] Nucleated RBC (Bld) [#/Vol] 10*3/uL <0.01 k/uL [facility] Nucleated RBC/100 WBC (Bld) [Ratio] 0.0 /100 WBC [facility] Platelet mean volume (Bld) [Entitic vol] 11.0 fL 9.0 - 12.7 fL [facility] Platelets (Bld) [#/Vol] 218 10*3/uL 150 - 400 k/uL [facility] RBC (Bld) [#/Vol] 4.89 10*6/uL 4.20 - 6.00 m/uL [facility] WBC (Bld) [#/Vol] 7.15 10*3/uL 3.70 - 11.00 k/uL [facility] Comprehensive metabolic 2000 panelon 03-27-2022 Albumin [Mass/Vol] 4.1 g/dL 3.9 - 4.9 g/dL [facility] ALP [Catalytic activity/Vol] 84 U/L 38 - 113 U/L [facility] ALT [Catalytic activity/Vol] 43 U/L 10 - 54 U/L [facility] Anion gap [Moles/Vol] 13 mmol/L 9 - 18 mmol/L [facility] AST [Catalytic activity/Vol] 31 U/L 14 - 40 U/L [facility] Bilirubin [Mass/Vol] 0.3 mg/dL 0.2 - 1 .3 mg/dL [facility] Calcium [Mass/Vol] 9.5 mg/dL 8.5 - 10. 2 mg/dL [facility] Chloride [Moles/Vol] 107 mmol/L High 97 - 10 5 mmol/L [facility] CO2 [Moles/Vol] 21 mmol/L Low 22 - 30 mmol/L [facility] Creatinine [Mass/Vol] 1.13 mg/dL 0.73 - 1.22 mg/dL [facility] Estimated Glomerular Filtration Rate 66 mL/min/1.73m >=60 mL/min/1.7 3m [facility] Glucose [Mass/Vol] 91 mg/dL 74 - 99 mg/dL [facility] Potassium [Moles/Vol] 4.1 mmol/L 3.7 - 5.1 mmol/L [facility] Protein [Mass/Vol] 7.2 g/dL 6.3 - 8.0 g/dL [facility] Sodium [Moles/Vol] 141 mmol/L 136 - 144 mmol/L [facility] Urea nitrogen [Mass/Vol] 12 mg/dL 9 - 24 mg/dL [facility] HbA1c (Bld)on 03-27-2022 Average glucose Estimated from glycated hemoglobin (Bld) [Mass/Vol] 117 mg/dL [facility] HbA1c (Bld) [Mass fraction] 5.7 % High 4.3 - 5.6 % [facility] LIPID PANEL, NONFASTINGon Cholesterol [Mass/Vol] 184 mg/dL <200 mg/dL [facility] HDL Cholesterol, Nonfasting 34 mg/dL Low >39 mg/dL [facility] LDL Cholesterol, Nonfasting 82 mg/dL <100 mg/dL [facility] LDL/HDL Ratio, Nonfasting 2.41 mg/dL <2.54 mg/dL [facility] Non HDL Cholesterol, Nonfasting 150 mg/dL High <130 mg/dL [facility] Total Chol/HDL Ratio, Nonfasting 5.41 mg/dL High <5.10 mg/dL [facility] Triglycerides, Nonfasting 342 mg/dL High <150 mg/dL [facility] VLDL Cholesterol, Nonfasting 68 mg/dL High <30 mg/dL [facility] MAGNESIUM [facility] 03-27-2022 Magnesium [Mass/Vol] 2.0 mg/dL 1.7 - 2 .3 mg/dL [facility] PSA/PROSTSPECAG DIAGon 03-27 Prostate specific Ag [Mass/Vol] 0.22 ng/mL <2.60 ng/mL [facility] TSH [facility] 03-27-2022 TSH Qn 3.260 m[IU]/L 0.270 - 4.200 mIU/L [facility] Urinalysis complete panel (U )on 03-27-2022 Bilirubin Ql (U) Negative Negative [facility] Clarity (Unsp spec) Clear Clear [facility] Color (U) Light Yellow Yellow [facility] Epithelial cells LM.HPF (Urine sed) [#/Area] Few [facility] Glucose Test strip (U) [Mass/Vol] Negative Negative [facility] Hemoglobin Ql (U) Negative Negative [facility] Ketones Ql (U) Negative Negative [facility] Leukocyte esterase Test strip Ql (U) Negative Negative [facility] Nitrite Ql (U) Negative Negative [facility] pH (U) 6.0 [pH] 5.0 - 8.0 [facility] Protein (U) [Mass/Vol] 1+ Abnormal Negative [facility] RBC LM.HPF (Urine sed) [#/Area] 0-3 /HPF 0-3 /HPF [facility] Specific gravity (U) [Rel density] 1.013 1.005 - 1.030 [facility] Urobilinogen Ql (U) Negative Negative [facility] WBC LM.HPF (Urine sed) [#/Area] 0-5 /HPF 0-5 /HPF [facility] VITAMIN B12 BLOODon 06-23-20 22 Cobalamin (Vitamin B12) [Mass/Vol] 784 pg/mL 232-1,245 pg/mL [facility] XR Hand - right PA and Later al and Obliqueon 06-19-2021 IMPRESSION: 1. No radiographic evidence of acute osseous injury. 2. Osteoarthritis. Executor Of Estate: TITUS Transcribe Date/Time: Jun 19 2021 4:04P Dictated by : NATASHA SAAVEDRA MD This examination was interpreted and the report reviewed and electronically signed by: NATASHA SAAVEDRA MD on Jun 19 2021 4:05PM [facility] DIVISION OF RADIOLOGY * * *Final Report* [...] metacarpal phalangeal joints. DIVISION OF RADIOLOGY Provider, [facility] - 06/19/2021 * * *Final Report* [...] evidence of acute osseous injury. 2. Osteoarthritis. Executor Of Estate: TITUS Transcribe Date/Time: Jun 19 2021 4:04P Dictated by : NATASHA SAAVEDRA MD This examination was interpreted and the report reviewed and electronically signed by: NATASHA SAAVEDRA MD on Jun 19 2021 4:05PM EST [facility] Radiology Study observation (narrative) [facility] XR Hand - right PA and Later al and ObliqueOrdered By: Ccf Provider on 06-19-2021 [facility] XR Hand - right PA and Later al and Obliqueon 05-18-2021 IMPRESSION: No convincing acute osseous abnormality. Soft tissue swelling over the dorsal metacarpophalangeal joints on the lateral view. Degenerative changes as described Executor Of Estate: TITUS Transcribe Date/Time: May 18 2021 11:59A Dictated by : STEPHANY STEWART MD This examination was interpreted and the report reviewed and electronically signed by: STEPHANY STEWART MD on May 18 2021 12:05PM [facility] DIVISION OF RADIOLOGY * * *Final Report* [...] body. DIVISION OF RADIOLOGY Provider, [place] - 05/18/2021 * * *Final Report* * [...] the lateral view. Degenerative changes as described Executor Of Estate: PSCB Transcribe Date/Time: May 18 2021 11:59A Dictated by : STEPHANY STEWART MD This examination was interpreted and the report reviewed and electronically signed by: STEPHANY STEWART MD on May 18 2021 12:05PM EST [facility] Radiology Study observation (narrative) [facility] XR Hand - right PA and Later al and ObliqueOrdered By: Ccf Provider on 05-18-2021 [facility] XR Lumbar spine 3 Viewson IMPRESSION: DIFFUSE IDIOPATHIC SKELETAL HYPEROSTOSIS. SIGNIFICANT DEGENERATIVE CHANGES. STABLE Executor Of Estate: [facility] Transcribe Date/Time: Feb 18 2021 3:39P Dictated by : EDGAR KAY MD This examination was interpreted and the report reviewed and electronically signed by: EDGAR KAY MD on Feb 18 2021 3:40PM [facility] DIVISION OF RADIOLOGY * * *Final Report* [...] focal bony abnormality DIVISION OF RADIOLOGY Provider, [facility] - [facility]/18/[facility]21 * * *Final [...] IDIOPATHIC SKELETAL HYPEROSTOSIS. SIGNIFICANT DEGENERATIVE CHANGES. STABLE Executor Of Estate: TITUS Transcribe Date/Time: Feb 18 2021 3:39P Dictated by : EDGAR KAY MD This examination was interpreted and the report reviewed and electronically signed by: EDGAR KAY MD on Feb 18 2021 3:40PM [facility] Radiology Study observation (narrative) [facility] XR Lumbar spine 3 ViewsOrder ed By: Ccf Provider on 02-18-2021 [facility] OTARon 08-12-2019 OT Assessment Report Normal [facility] OTAR Occupational Therapy Performance Skills Evaluation Therapy [...] Demographics: Age: 74Y Gender: Male Primary Language: Uzbek Preferred Language: Uzbek OCCUPATIONAL PROFILE AND HISTORY Basic ADLs: he is able to complete all self care on his own and is doing so consistently Instrumental ADLs: he lives with his 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; he stays busy throughout the day doing various tasks including dishes, outside work, laundry, cleaning tasks while had done meal prep in the past but not recently; manages their finances while Lory takes his own medications using pill box with no problems indicated Work/Leisure/Education: he completed 13 years of formal education; worked for 40 years at [employer] until 2004 while also typically having second job while 8 years at [employer] prior to retiring finally in 2006; he enjoys reading especially books about medical issues, woodworking, word searches, jigsaw puzzles although has not done this recently Driving History: Driving for: 60 years. Time Since Last Driven: early summer 2018 when they needed to take the truck to [facility] PATIENT NAME: LORY JOHNSON [facility] 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 Traffic Violations: Patient does not have any traffic violations. Patient Report: Lory indicated that he has stayed busy while his is working and has not minded that she has been the driver medic for the both of them since his stroke. Patient/Caregiver Goals: Patient and spouse/significant other's functional goals: to determine if Lory is able to return to safe operation of motor vehicle on his own Pain: Patient currently without complaints of pain. Social History: Marital Status: Children: daughter and son Reside: daughter in [place] and son in [place] Employment Status: retired since 2006 Recreational Activities/Hobbies: [...] for color and stereo depth perception, B [facility] PATIENT NAME: LORY JOHNSON [address] [facility] [address] MEDICAL REC #: [id number] [place] [address] ADMIT DATE: SERVICE DATE: 08/12/19 Occupational Therapy [...] needs to rest more than previously while [facility] PATIENT NAME: LORY JOHNSON [address] [facility] [address] MEDICAL REC #: [id number] [place] [address] ADMIT DATE: SERVICE DATE: 08/12/19 Occupational Therapy [...] said that their son recently moved from [facility] to [place], [place] but into home that is big enough for him to take his parents in to live there which he is encouraging them to consider given his dad's concerns; also indicated that while she continues to work mop handle assembler, she has the ability to retire or [...] report, this therapist is recommending immediate driving cessation/senior living which was discussed with Lory and his who indicated understanding. Will provide [...] significant other. Mode: Explanation. Printed material provided. [facility] PATIENT NAME: LORY JOHNSON [address] [facility] [address] MEDICAL REC #: [id number] [place] [address] ADMIT DATE: SERVICE DATE: 08/12/19 Occupational Therapy [...] minutes (Timed: 72, Untimed: 60) 72.00 Timed: [25571] ADL-HOME MANAGEMENT EA 15 MIN 60.00 Untimed: [34349] OT-EVALUATION HIGH COMPLEX Signed by: YOLIE MARTINEZ, OT/L, CDRS, CDI/PD 08/16/2019 08:18:24 [facility] PATIENT NAME: LORY JOHNSON [address] [facility] 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 Alternative transportation. He will need to continue to rely on his to provide assist with his transportation needs moving forward which she appears to be ready and capable of doing. Instrumental Activities of Daily Living. Briefly discussed some behaviors [facility] PATIENT NAME: LORY JOHNSON [address] [facility] 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 Additional Comments: Based on the various concerns indicated in this report, this therapist is recommending that Lory is no longer able to return to safe and independent operation of motor vehicle and therefore driving cessation/senior living necessary. This therapist will provide information to Lory's physician regarding notifying the [facility] of the concern and recommendation so that they can follow through with doing same. Both Lory and his indicated understanding of this recommendation while agreement with following same. 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 If the patient's physical and mental status remains the same as during the evaluation period, the recommendations in the report should be considered valid for 6 months. Beyond that time, a re - evaluation may be necessary. Signed by: YOLIE MARTINEZ, OT/L, CDRS, CDI/PD 08/16/2019 08:55:50 [facility] PATIENT NAME: LORY JOHNSON [address] [facility] [address] MEDICAL REC #: [id number] [place] [address] ADMIT DATE: SERVICE DATE: 08/12/19 Occupational Therapy Assessment ATTENDING RHINA: [facility] CNOV Office Visit (AGCARDWST) -------LORY JOHNSON ([id number]) 1945 M NFRDate Time Provider Department11/16/17 3:30 [...] - metBeta shravan for ASHD with prior [place] or prior LVEFANDlt;40 (NQF 0070) - metBeta [...] with treatment plan.This note was generated using mySugr voice recognition system, and there may besome [...] HISTORYProcedure Laterality Date- COLONOSCOP W/ OR W/O [facility] SPEC 02/2002 Colonoscopy- COLONOSCOP W/ OR W/O [facility] SPEC 09/14/07 normal- COLONOSCOP W/ OR W/O [facility] SPEC 07/23/2012 normal- EGD W/O OR W/BRUSH/WASH [...] in the left system. [facility] he had [facility] stent.Most recent vascular studies showed mild atherosclerotic change with ectasia inthe mid abdominal aorta.Recent lab was reviewed. Renal function is normal. LDL was 95.EKG shows sinus rhythm. 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.Electronically Signed:Casey Brush MDFebruary 2017 4:01 [facility]:Crystal Eric MD 11/16/2017 4:00 PM SignedLIFESTYLE CHANGEA [...] physician about programs in your area.Referring Provider: SHAYE [place] [[id number]]Allergies As of Date: 11/16/2017 Noted Allergy ReactionBETA-SHRAVAN S [Other] 08/01/2005LIPITOR (ATORVASTATIN) 08/01/2005 5 - IntoleranceVIAGRA (SILDENAFIL) 08/01/2005ZETIA (EZETIMIBE) 01/06/2008 1 - Mental Status ChangeZITHROMAX (AZITHROMYCIN) 08/01/2005 9 - ItchingDate Reviewed: 11/16/2017Reviewed by: Shira Mensah) Annette - Fully AssessedReason for Visit: Recheck [92]Primary Visit Diagnosis:ASHD (arteriosclerotic heart disease) [I25.10] Other Visit Diagnosis:Essential hypertension [I10]Order(s):ECG B/O W INTERP (MED OFFICE) [ECG06] Order #: [id number] MAGNESIUM BLD [SQMG1] Order #: [id number] FUTUREPrescriptions as of 11/16/2017 Sig: PRAVASTATIN 40 [...] Status:Closed by CASEY BRUSH MD on 11/16/17 [facility] PROGRESSon 11-16-2017 PROGRESS HNO ID: [id number] thor: Casey Moss: (none)Author Type: PhysicianType: Progress NotesFiled: 11/16/2017 5:16 PMNote Text:PERTINENT CARDIAC HISTORYASHD - IMI, PCI RCA (complex) 10/18HTNHLOSA - no evidenceObesityADHERENCE TO GUIDELINESACE-I or ARB for HF with prior LVEF<40 (NQF 0081) - N/AASA or Plavix for ASHD (NQF 0067) - metBeta shravan for ASHD with prior [place] or prior LVEF<40 (NQF 0070) - metBeta [...] with treatment plan.This note was generated using mySugr voice recognition system, and theremay be some [...] HISTORYProcedure Laterality Date- COLONOSCOP W/ OR W/O [facility] SPEC 02/2002 Colonoscopy- COLONOSCOP W/ OR W/O [facility] SPEC 09/14/07 normal- COLONOSCOP W/ OR W/O [facility] SPEC 07/23/2012 normal- EGD W/O OR W/BRUSH/WASH [...] education: Number of children: 2Occupational 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 He was transferred to [facility] where he had a stent.Most recent vascular studies showed mild atherosclerotic change withectasia in the mid abdominal aorta.Recent lab was reviewed. Renal function is normal. LDL was 95.EKG shows sinus rhythm. 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.Electronically Signed:Casey Brush MDFebruary 2017 4:01 [facility]:Adama Mendoza MD [facility] OBSOLETEon 08-24-2017 OBSOLETE Refill (AGCARDWST) -------LORY JOHNSON ([id number]) 1945 M NFRDate Time Provider Coemgsopgn26/20/17 CASEY BRUSH During your visit today, we [...] 30 tabletRfl: 11 ALT/SGPT [SQALT] Order #: [id number] FUTURE CK CREATINE KINASE [SQCK] Order #: [id number] FUTUREPrescriptions as of 08/24/2017 Sig: PRAVASTATIN 40 [...] by SHIRA GARRISON LPN on 08/24/17 Normal [facility] Vital Signs Date Time Vital Sign Value Performing Clinician Facility 06-23-2025 13:49-0400 Body height 182.[address] Adama Mendoza MD Work Phone: [facility] 06-23-2025 13:49-0400 Body mass index (BMI) [Ratio] 26.6 kg/m2 Dr. Adama Mendoza MD Work Phone: [facility] 06-23-2025 13:49-0400 Body weight 88.[address] Adama Mendoza MD Work Phone: [facility] 06-23-2025 13:49-0400 Diastolic blood pressure 70 mm[Hg] Dr. Adama jensen MD Work Phone: [facility] 06-23-2025 13:49-0400 Heart rate 57 /min Dr. Adama Mendoza MD Work Phone: [facility] 06-23-2025 13:49-0400 Respiratory rate 16 /min Dr. Adama Mendoza MD Work Phone: [facility] 06-23-2025 13:49-0400 Systolic blood pressure 117 mm[Hg] Dr. Adama diamond MD Work Phone: [facility] 04-11-2025 14:10-0400 Body height 171.5 cm Adama Mendoza MD Work Phone: [facility] 04-11-2025 14:10-0400 Body mass index (BMI) [Ratio] 31.14 kg/m2 Adama Mendoza MD Work Phone: [facility] 04-11-2025 14:10-0400 Body weight 91.54 kg Adama Mendoza MD Work Phone: [facility] 04-11-2025 14:10-0400 Diastolic blood pressure 80 mm[Hg] Adama Mendoza MD Work Phone: [facility] 04-11-2025 14:10-0400 Heart rate 64 /min Adama Mendoza MD Work Phone: [facility] 04-11-2025 14:10-0400 Respiratory rate 16 /min Adama Mendoza MD Work Phone: [facility] 04-11-2025 14:10-0400 Systolic blood pressure 136 mm[Hg] Adama Pappas Work Phone: [facility] 01-09-2025 08:41-0400 Body mass index (BMI) [Ratio] 29.95 kg/m2 Claude Cardenas APRN.MICROSOFT DEVELOPER Work Phone: [facility] 01-09-2025 08:41-0400 Body weight 92 kg Claude Cardenas APRN.CNP Work Phone: [facility] 01-09-2025 08:41-0400 Diastolic blood pressure 66 mm[Hg] Claude Cardenas APRN.MICROSOFT DEVELOPER Work Phone: [facility] 01-09-2025 08:41-0400 Heart rate 76 /min Claude Cardenas APRN.MICROSOFT DEVELOPER Work Phone: [facility] 01-09-2025 08:41-0400 Systolic blood pressure 155 mm[Hg] Claude Cardenas APRN.MICROSOFT DEVELOPER Work Phone: [facility] 12-05-2024 13:42-0500 Body mass index (BMI) [Ratio] 29.53 kg/m2 Shaye Kitchen Jr., MD Work Phone: [facility] 12-05-2024 13:42-0500 Body weight 90.72 kg Shaye Kitchen Jr., MD Work Phone: [facility] 12-05-2024 13:42-0500 Diastolic blood pressure 76 mm[Hg] Shaye wooten MD Work Phone: [facility] 12-05-2024 13:42-0500 Heart rate 55 /min Shaye Kitchen Jr., MD Work Phone: [facility] 12-05-2024 13:42-0500 SaO2% (BldA) [Mass fraction] 97 % Shaye Kitchen Jr., MD Work Phone: [facility] 12-05-2024 13:42-0500 Systolic blood pressure 128 mm[Hg] Shaye Rodgers MD Work Phone: [facility] 11-25-2024 12:37-0500 Body mass index (BMI) [Ratio] 29.53 kg/m2 Claude Cardenas APRN.MICROSOFT DEVELOPER Work Phone: [facility] 11-25-2024 12:37-0500 Body weight 90.72 kg Claude Cardenas APRN.MICROSOFT DEVELOPER Work Phone: [facility] 11-25-2024 12:37-0500 Diastolic blood pressure 67 mm[Hg] Claude Cardenas APRN.MICROSOFT DEVELOPER Work Phone: [facility] 11-25-2024 12:37-0500 Heart rate 61 /min Claude Cardenas APRN.MICROSOFT DEVELOPER Work Phone: [facility] 11-25-2024 12:37-0500 SaO2% (BldA) [Mass fraction] 98 % Claude Cardenas APRN.MICROSOFT DEVELOPER Work Phone: [facility] 11-25-2024 12:37-0500 Systolic blood pressure 127 mm[Hg] Claude Cardenas APRN.MICROSOFT DEVELOPER Work Phone: [facility] 11-23-2024 13:20-0500 Body mass index (BMI) [Ratio] 29.68 kg/m2 Danita Meraz PA-C Work Phone: [facility] 11-23-2024 13:20-0500 Body temperature 97.7 [degF] Danita Meraz PA-C Work Phone: [facility] 11-23-2024 13:20-0500 Body weight 91.17 kg Danita Meraz PA-C Work Phone: [facility] 11-23-2024 13:20-0500 Diastolic blood pressure 84 mm[Hg] Danita gordon PA-C Work Phone: [facility] 11-23-2024 13:20-0500 Heart rate 57 /min Danita Meraz PA-C Work Phone: [facility] 11-23-2024 13:20-0500 Respiratory rate 16 /min Danita Meraz PA-C Work Phone: [facility] 11-23-2024 13:20-0500 SaO2% (BldA) [Mass fraction] 97 % Danita Meraz PA-C Work Phone: [facility] 11-23-2024 13:20-0500 Systolic blood pressure 118 mm[Hg] Danita Meraz PA-C Work Phone: [facility] 11-10-2024 15:05-0500 Body height 175.3 cm Adama Mendoza MD Work Phone: [facility] 11-10-2024 15:05-0500 Body mass index (BMI) [Ratio] 28.94 kg/m2 Adama Mendoza MD Work Phone: [facility] 11-10-2024 15:05-0500 Body weight 88.91 kg Adama Mendoza MD Work Phone: [facility] 11-10-2024 15:05-0500 Diastolic blood pressure 78 mm[Hg] Adama Mendoza MD Work Phone: [facility] 11-10-2024 15:05-0500 Heart rate 57 /min Adama Mendoza MD Work Phone: [facility] 11-10-2024 15:05-0500 SaO2% (BldA) [Mass fraction] 97 % Adama Mendoza MD Work Phone: [facility] 11-10-2024 15:05-0500 Systolic blood pressure 110 mm[Hg] Adama Ppapas Work Phone: [facility] 10-25-2024 17:00-0500 Body temperature 97.59 [degF] Gail Reddy RN Work Phone: [facility] 10-25-2024 17:00-0500 Diastolic blood pressure 62 mm[Hg] Gail Reddy RN Work Phone: [facility] 10-25-2024 17:00-0500 Heart rate 68 /min Gail Reddy RN Work Phone: [facility] 10-25-2024 17:00-0500 Respiratory rate 16 /min Gail Reddy RN Work Phone: [facility] 10-25-2024 17:00-0500 SaO2% (BldA) [Mass fraction] 97 % Gail Reddy RN Work Phone: [facility] 10-25-2024 17:00-0500 Systolic blood pressure 118 mm[Hg] Gail Reddy R N Work Phone: [facility] 10-24-2024 13:03-0500 Body mass index (BMI) [Ratio] 29.24 kg/m2 Adama Mendoza MD Work Phone: [facility] 10-24-2024 13:03-0500 Body temperature 97 [degF] Adama Mendoza MD Work Phone: [facility] 10-24-2024 13:03-0500 Body weight 89.81 kg Adama Mendoza MD Work Phone: [facility] 10-24-2024 13:03-0500 Diastolic blood pressure 78 mm[Hg] Adama Mendoza MD Work Phone: [facility] 10-24-2024 13:03-0500 Heart rate 62 /min Adama Mendoza MD Work Phone: [facility] 10-24-2024 13:03-0500 Respiratory rate 18 /min Adama Mendoza MD Work Phone: [facility] 10-24-2024 13:03-0500 SaO2% (BldA) [Mass fraction] 99 % Adama Mendoza MD Work Phone: [facility] 10-24-2024 13:03-0500 Systolic blood pressure 150 mm[Hg] Adama Pappas Work Phone: [facility] 10-15-2024 18:22-0500 SaO2% (BldA) [Mass fraction] 97 % ADAMA [facility] Comment on above: Order Comment: Specimen Type: ARTERIAL B LOOD SPECIMENOrdering Facility: [facility] Address: [address] [place], [place] [id number] Performed By: #### A LLBG ####RANDOLPH RESPIRATORYCLIA [id number] [id number] [place] [id number] 10-14-2024 15:48-0500 Diastolic blood pressure 60 mm[Hg] Margaret blanco USER SUPPORT ANALYST SUPERVISOR.MICROSOFT DEVELOPER Work Phone: [facility] Comment on above: provider notified 10-14-2024 15:48-0500 Systolic blood pressure 171 mm[Hg] Margaret baker USER SUPPORT ANALYST SUPERVISOR.MICROSOFT DEVELOPER Work Phone: [facility] Comment on above: provider notified 10-14-2024 12:21-0500 Body height 175.3 cm Gaudencio Doher DO Work Phone: [facility] 10-14-2024 12:21-0500 Body mass index (BMI) [Ratio] 29.98 kg/m2 Gaudencio Doher DO Work Phone: [facility] 10-14-2024 12:21-0500 Body weight 92.08 kg Gaudencio Doher DO Work Phone: [facility] 10-14-2024 12:21-0500 Diastolic blood pressure 68 mm[Hg] Gaudencio Doher DO Work Phone: [facility] 10-14-2024 12:21-0500 Heart rate 67 /min Gaudencio Doher DO Work Phone: [facility] 10-14-2024 12:21-0500 Systolic blood pressure 164 mm[Hg] Gaudencio Doher D O Work Phone: [facility] 10-11-2024 14:24-0500 Body mass index (BMI) [Ratio] 29.98 kg/m2 Adama Mendoza MD Work Phone: [facility] 10-11-2024 14:24-0500 Body weight 92.08 kg Adama Mendoza MD Work Phone: [facility] 10-11-2024 14:24-0500 Diastolic blood pressure 74 mm[Hg] Adama Mendoza MD Work Phone: [facility] 10-11-2024 14:24-0500 Heart rate 64 /min Adama Mendoza MD Work Phone: [facility] 10-11-2024 14:24-0500 Respiratory rate 16 /min Adama Mendoza MD Work Phone: [facility] 10-11-2024 14:24-0500 Systolic blood pressure 158 mm[Hg] Adama Pappas Work Phone: [facility] 09-20-2024 09:49-0500 Body mass index (BMI) [Ratio] 29.39 kg/m2 Adama Mendoza MD Work Phone: [facility] 09-20-2024 09:49-0500 Body temperature 97.81 [degF] Adama Mendoza MD Work Phone: [facility] 09-20-2024 09:49-0500 Body weight 90.27 kg Adama Mendoza MD Work Phone: [facility] 09-20-2024 09:49-0500 Diastolic blood pressure 74 mm[Hg] Adama Mendoza MD Work Phone: [facility] 09-20-2024 09:49-0500 Heart rate 60 /min Adama Mendoza MD Work Phone: [facility] 09-20-2024 09:49-0500 Respiratory rate 14 /min Adama Mendoza MD Work Phone: [facility] 09-20-2024 09:49-0500 Systolic blood pressure 112 mm[Hg] Adama Pappas Work Phone: [facility] 09-10-2024 09:02-0500 Body mass index (BMI) [Ratio] 29.68 kg/m2 Adama Mendoza MD Work Phone: [facility] 09-10-2024 09:02-0500 Body weight 91.17 kg Adama Mendoza MD Work Phone: [facility] 09-10-2024 09:02-0500 Diastolic blood pressure 75 mm[Hg] Adama Mendoza MD Work Phone: [facility] 09-10-2024 09:02-0500 Heart rate 66 /min Adama Mendoza MD Work Phone: [facility] 09-10-2024 09:02-0500 Respiratory rate 12 /min Adama Mendoza MD Work Phone: [facility] 09-10-2024 09:02-0500 Systolic blood pressure 123 mm[Hg] Adama Pappas Work Phone: [facility] 08-08-2024 14:09-0500 Body height 175.3 cm Rubén Gonzalez MD Work Phone: [facility] 08-08-2024 14:09-0500 Body mass index (BMI) [Ratio] 29.83 kg/m2 Rubén Gonzalez MD Work Phone: [facility] 08-08-2024 14:09-0500 Body temperature 97.7 [degF] Rubén Gonzalez MD Work Phone: [facility] 08-08-2024 14:09-0500 Body weight 91.63 kg Rubén Gonzalez MD Work Phone: [facility] 08-08-2024 14:09-0500 Diastolic blood pressure 74 mm[Hg] Rubén Gonzalez MD Work Phone: [facility] 08-08-2024 14:09-0500 Heart rate 60 /min Rubén Gonzalez MD Work Phone: [facility] 08-08-2024 14:09-0500 SaO2% (BldA) [Mass fraction] 97 % Rubén Gonzalez MD Work Phone: [facility] 08-08-2024 14:09-0500 Systolic blood pressure 126 mm[Hg] Rubén Pappas Work Phone: [facility] 07-21-2024 11:47-0400 Body mass index (BMI) [Ratio] 29.83 kg/m2 Danita Meraz PA-C Work Phone: [facility] 07-21-2024 11:47-0400 Body temperature 97.9 [degF] Danita Meraz PA-C Work Phone: [facility] 07-21-2024 11:47-0400 Body weight 91.63 kg Danita Meraz PA-C Work Phone: [facility] 07-21-2024 11:47-0400 Diastolic blood pressure 82 mm[Hg] Danita gordon PA-C Work Phone: [facility] 07-21-2024 11:47-0400 Heart rate 59 /min Danita Meraz PA-C Work Phone: [facility] 07-21-2024 11:47-0400 Respiratory rate 16 /min Danitaana lilia Meraz PA-C Work Phone: [facility] 07-21-2024 11:47-0400 SaO2% (BldA) [Mass fraction] 97 % Danita Meraz PA-C Work Phone: [facility] 07-21-2024 11:47-0400 Systolic blood pressure 122 mm[Hg] Danita Meraz PA-C Work Phone: [facility] 06-28-2024 13:14-0400 Body height 175.3 cm Amanda Bogner PA-C Work Phone: [facility] 06-28-2024 13:14-0400 Body mass index (BMI) [Ratio] 30.27 kg/m2 Amanda Bogner PA-C Work Phone: [facility] 06-28-2024 13:14-0400 Body weight 92.99 kg Amanda Bogner PA-C Work Phone: [facility] 06-28-2024 13:14-0400 Diastolic blood pressure 62 mm[Hg] Amanda Glennyn er PA-C Work Phone: [facility] 06-28-2024 13:14-0400 Heart rate 64 /min Amanda Bogner PA-C Work Phone: [facility] 06-28-2024 13:14-0400 Respiratory rate 14 /min Amanda Bogner PA-C Work Phone: [facility] 06-28-2024 13:14-0400 SaO2% (BldA) [Mass fraction] 96 % Amanda Bogner PA-C Work Phone: [facility] 06-28-2024 13:14-0400 Systolic blood pressure 122 mm[Hg] Amanda Murrietane r PA-C Work Phone: [facility] 06-22-2024 10:56-0400 Body mass index (BMI) [Ratio] 30.18 kg/m2 Jelena Tannhof USER SUPPORT ANALYST SUPERVISOR.[employer] DEVELOPER Work Phone: [facility] 06-22-2024 10:56-0400 Body weight 92.7 kg Jelena Tannhof USER SUPPORT ANALYST SUPERVISOR.[employer] DEVELOPER Work Phone: [facility] 06-22-2024 10:56-0400 Diastolic blood pressure 79 mm[Hg] Jelena Tannhof USER SUPPORT ANALYST SUPERVISOR.[employer] DEVELOPER Work Phone: [facility] 06-22-2024 10:56-0400 Heart rate 62 /min Jelena Tannhof USER SUPPORT ANALYST SUPERVISOR.[employer]OS[employer] DEVELOPER Work Phone: [facility] 06-22-2024 10:56-0400 Respiratory rate 16 /min Jelenanoel Perezhof USER SUPPORT ANALYST SUPERVISOR.MI[employer]OSOFT DEVELOPER Work Phone: [facility] 06-22-2024 10:56-0400 SaO2% (BldA) [Mass fraction] 96 % Jelenanoel Perezhof USER SUPPORT ANALYST SUPERVISOR.[employer]OSO[employer] DEVELOPER Work Phone: [facility] 06-22-2024 10:56-0400 Systolic blood pressure 144 mm[Hg] Jelena Tannhof USER SUPPORT ANALYST SUPERVISOR.[employer]OSOFT DEVELOPER Work Phone: [facility] 06-15-2024 11:04-0400 Body mass index (BMI) [Ratio] 30.86 kg/m2 Adama Mendoza MD Work Phone: [facility] 06-15-2024 11:04-0400 Body temperature 98.2 [degF] Adama Mendoza MD Work Phone: [facility] 06-15-2024 11:04-0400 Body weight 94.8 kg Adama Mendoza MD Work Phone: [facility] 06-15-2024 11:04-0400 Diastolic blood pressure 62 mm[Hg] Adama Mendoza MD Work Phone: [facility] 06-15-2024 11:04-0400 Heart rate 73 /min Adama Mendoza MD Work Phone: [facility] 06-15-2024 11:04-0400 Respiratory rate 14 /min Adama Mendoza MD Work Phone: [facility] 06-15-2024 11:04-0400 SaO2% (BldA) [Mass fraction] 97 % Adama Mendoza MD Work Phone: [facility] 06-15-2024 11:04-0400 Systolic blood pressure 106 mm[Hg] Adama Pappas Work Phone: [facility] 06-15-2024 07:10-0400 Body mass index (BMI) [Ratio] 30.86 kg/m2 Jelena Tannhof USER SUPPORT ANALYST SUPERVISOR.[employer]OSOFT DEVELOPER Work Phone: [facility] 06-15-2024 07:10-0400 Body weight 94.8 kg Jelena Tannhof USER SUPPORT ANALYST SUPERVISOR.MI[employer]OSOFT DEVELOPER Work Phone: [facility] 06-15-2024 07:10-0400 Diastolic blood pressure 70 mm[Hg] Jelena Tannhof USER SUPPORT ANALYST SUPERVISOR.MI[employer]OSOFT DEVELOPER Work Phone: [facility] 06-15-2024 07:10-0400 Heart rate 75 /min Jelena Tannhof USER SUPPORT ANALYST SUPERVISOR.MI[employer]OSOFT DEVELOPER Work Phone: [facility] 06-15-2024 07:10-0400 Respiratory rate 16 /min Jelena Tannhof USER SUPPORT ANALYST SUPERVISOR.MI[employer]OSOFT DEVELOPER Work Phone: [facility] 06-15-2024 07:10-0400 SaO2% (BldA) [Mass fraction] 97 % Jelena Tannhof USER SUPPORT ANALYST SUPERVISOR.MI[employer]OSOFT DEVELOPER Work Phone: [facility] 06-15-2024 07:10-0400 Systolic blood pressure 118 mm[Hg] Jelena Tannhof USER SUPPORT ANALYST SUPERVISOR.MI[employer]OSOFT DEVELOPER Work Phone: [facility] 05-12-2024 14:17-0400 Body mass index (BMI) [Ratio] 31.01 kg/m2 Stephany Suarez MD Work Phone: [facility] 05-12-2024 14:17-0400 Body weight 95.25 kg Stephany Suarez MD Work Phone: [facility] 05-12-2024 14:17-0400 Diastolic blood pressure 60 mm[Hg] Stephany Suarez MD Work Phone: [facility] 05-12-2024 14:17-0400 Heart rate 57 /min Stephany Suarez MD Work Phone: [facility] 05-12-2024 14:17-0400 Respiratory rate 14 /min Stephany Suarez MD Work Phone: [facility] 05-12-2024 14:17-0400 SaO2% (BldA) [Mass fraction] 95 % Stephany Suarez MD Work Phone: [facility] 05-12-2024 14:17-0400 Systolic blood pressure 118 mm[Hg] Stephany Suarez MD Work Phone: [facility] 04-11-2024 13:43-0400 Body height 175.3 cm Adama Mendoza MD Work Phone: [facility] 04-11-2024 13:43-0400 Body mass index (BMI) [Ratio] 31.45 kg/m2 Adama Mendoza MD Work Phone: [facility] 04-11-2024 13:43-0400 Body weight 96.62 kg Adama Mendoza MD Work Phone: [facility] 04-11-2024 13:43-0400 Diastolic blood pressure 72 mm[Hg] Adama Mendoza MD Work Phone: [facility] 04-11-2024 13:43-0400 Heart rate 60 /min Adama Mendoza MD Work Phone: [facility] 04-11-2024 13:43-0400 Respiratory rate 18 /min Adama Mendoza MD Work Phone: [facility] 04-11-2024 13:43-0400 Systolic blood pressure 120 mm[Hg] Adama Pappas Work Phone: [facility] 03-04-2024 13:47-0400 Body mass index (BMI) [Ratio] 31.4 kg/m2 Shaye Kitchen Jr., MD Work Phone: [facility] 03-04-2024 13:47-0400 Body weight 96.44 kg Shaye Kitchen Jr., MD Work Phone: [facility] 03-04-2024 13:47-0400 Diastolic blood pressure 84 mm[Hg] Shaye wooten MD Work Phone: [facility] 03-04-2024 13:47-0400 Heart rate 58 /min Shaye Kitchen Jr., MD Work Phone: [facility] 03-04-2024 13:47-0400 Respiratory rate 16 /min Shaye Kitchen Jr., MD Work Phone: [facility] 03-04-2024 13:47-0400 SaO2% (BldA) [Mass fraction] 96 % Shaye Kitchen Jr., MD Work Phone: [facility] 03-04-2024 13:47-0400 Systolic blood pressure 132 mm[Hg] Shaye Rodgers MD Work Phone: [facility] 03-04-2024 11:49-0400 Body mass index (BMI) [Ratio] 31.45 kg/m2 Danita Meraz PA-C Work Phone: [facility] 03-04-2024 11:49-0400 Body weight 96.62 kg Danita CHISHOLM-C Work Phone: [facility] 03-04-2024 11:49-0400 Diastolic blood pressure 69 mm[Hg] Danita gordon PA-C Work Phone: [facility] 03-04-2024 11:49-0400 Heart rate 58 /min Danita Meraz PA-C Work Phone: [facility] 03-04-2024 11:49-0400 Respiratory rate 20 /min Danita Meraz PA-C Work Phone: [facility] 03-04-2024 11:49-0400 SaO2% (BldA) [Mass fraction] 97 % Danita Meraz PA-C Work Phone: [facility] 03-04-2024 11:49-0400 Systolic blood pressure 135 mm[Hg] Danita Meraz PA-C Work Phone: [facility] 01-22-2024 10:02-0400 Body height 175.3 cm Jessica Miramontes PA-C Work Phone: [facility] 01-22-2024 10:02-0400 Body weight 97.05 kg Jessicabarbara Dodsoner PA-C Work Phone: [facility] 01-22-2024 10:02-0400 Diastolic blood pressure 78 mm[Hg] Jessica Miramontes PA-C Work Phone: [facility] 01-22-2024 10:02-0400 Heart rate 62 /min Jessica Miramontes PA-C Work Phone: [facility] 01-22-2024 10:02-0400 SaO2% (BldA) [Mass fraction] 96 % Jessicabarbara Dodsonprudence PA-C Work Phone: [facility] 01-22-2024 10:02-0400 Systolic blood pressure 144 mm[Hg] Jessica prudence PA-C Work Phone: [facility] 12-15-2023 09:58-0400 Body height 171.4 cm Pulm Wstr Work Phone: [facility] 12-15-2023 09:58-0400 Body weight 95.71 kg Pulm Wstr Work Phone: [facility] 12-15-2023 09:58-0400 Heart rate 57 /min Pulm Wstr Work Phone: [facility] 12-15-2023 09:58-0400 Respiratory rate 14 /min Pulm Wstr Work Phone: [facility] 12-15-2023 09:58-0400 SaO2% (BldA) [Mass fraction] 98 % Pulm Wstr Work Phone: [facility] 11-20-2023 14:18-0500 Body weight 94.17 kg Shaye Kitchen Jr., MD Work Phone: [facility] 11-20-2023 14:18-0500 Diastolic blood pressure 60 mm[Hg] Shaye wooten MD Work Phone: [facility] 11-20-2023 14:18-0500 Heart rate 58 /min Shaye Kitchen Jr., MD Work Phone: [facility] 11-20-2023 14:18-0500 Respiratory rate 16 /min Shaye Kitchen Jr., MD Work Phone: [facility] 11-20-2023 14:18-0500 SaO2% (BldA) [Mass fraction] 96 % Shaye Kitchen Jr., MD Work Phone: [facility] 11-20-2023 14:18-0500 Systolic blood pressure 116 mm[Hg] Shaye Rodgers MD Work Phone: [facility] 09-26-2023 12:00-0500 Respiratory rate 18 /min [facility] 09-26-2023 11:03-0500 Body temperature 97.3 [degF] [facility] 09-26-2023 11:03-0500 Diastolic blood pressure 77 mm[Hg] [facility] 09-26-2023 11:03-0500 Heart rate 57 /min [facility] 09-26-2023 11:03-0500 SaO2% (BldA) [Mass fraction] 98 % [facility] 09-26-2023 11:03-0500 Systolic blood pressure 153 mm[Hg] [facility] 09-26-2023 10:59-0500 Body height 173 cm [facility] 09-26-2023 10:59-0500 Body mass index (BMI) [Ratio] 32.5 kg/m2 [facility] 09-26-2023 10:59-0500 Body weight 97.4 kg [facility] 07-14-2023 14:49-0400 Body temperature 97.7 [degF] Adama Mendoza MD Work Phone: [facility] 07-14-2023 14:49-0400 Body weight 94.35 kg Adama Mendoza MD Work Phone: [facility] 07-14-2023 14:49-0400 Diastolic blood pressure 68 mm[Hg] Adama Mendoza MD Work Phone: [facility] 07-14-2023 14:49-0400 Heart rate 58 /min Adama Mendoza MD Work Phone: [facility] 07-14-2023 14:49-0400 Respiratory rate 18 /min Adama Mendoza MD Work Phone: [facility] 07-14-2023 14:49-0400 SaO2% (BldA) [Mass fraction] 98 % Adama Mendoza MD Work Phone: [facility] 07-14-2023 14:49-0400 Systolic blood pressure 122 mm[Hg] Adama Pappas Work Phone: [facility] 06-23-2023 08:44-0400 Body weight 97.07 kg Adama Mendoza MD Work Phone: [facility] 06-23-2023 08:44-0400 Diastolic blood pressure 82 mm[Hg] Adama Mendoza MD Work Phone: [facility] 06-23-2023 08:44-0400 Heart rate 66 /min Adama Mendoza MD Work Phone: [facility] 06-23-2023 08:44-0400 Respiratory rate 16 /min Adama Mendoza MD Work Phone: [facility] 06-23-2023 08:44-0400 SaO2% (BldA) [Mass fraction] 94 % Adama Mendoza MD Work Phone: [facility] 06-23-2023 08:44-0400 Systolic blood pressure 124 mm[Hg] Adama Pappas Work Phone: [facility] 06-17-2023 15:51-0400 Diastolic blood pressure 76 mm[Hg] [facility] 06-17-2023 15:51-0400 Heart rate 73 /min [facility] 06-17-2023 15:51-0400 Respiratory rate 19 /min [facility] 06-17-2023 15:51-0400 SaO2% (BldA) [Mass fraction] 97 % [facility] 06-17-2023 15:51-0400 Systolic blood pressure 148 mm[Hg] [facility] 06-17-2023 15:40-0400 Body temperature 100.2 [degF] [facility] 06-17-2023 13:30-0400 Body height 172.72 cm [facility] 04-30-2023 15:01-0400 Body temperature 97.5 [degF] Jeff Crouch MD Work Phone: [facility] 04-30-2023 15:01-0400 Body weight 98.16 kg Jeff Crouch MD Work Phone: [facility] 04-30-2023 15:01-0400 Diastolic blood pressure 70 mm[Hg] Jeff Crouch MD Work Phone: [facility] 04-30-2023 15:01-0400 Heart rate 58 /min Jeff Crouch MD Work Phone: [facility] 04-30-2023 15:01-0400 Respiratory rate 16 /min Jeff Crouch MD Work Phone: [facility] 04-30-2023 15:01-0400 SaO2% (BldA) [Mass fraction] 94 % Jeff Crouch MD Work Phone: [facility] 04-30-2023 15:01-0400 Systolic blood pressure 126 mm[Hg] Jeff Crouch MD Work Phone: [facility] 04-14-2023 11:50-0400 Body height 171.5 cm Adama Mendoza MD Work Phone: [facility] 04-14-2023 11:50-0400 Body weight 99.34 kg Adama Mendoza MD Work Phone: [facility] 04-14-2023 11:50-0400 Diastolic blood pressure 74 mm[Hg] Adama Mendoza MD Work Phone: [facility] 04-14-2023 11:50-0400 Heart rate 68 /min Adama Mendoza MD Work Phone: [facility] 04-14-2023 11:50-0400 Respiratory rate 16 /min Adama Mendoza MD Work Phone: [facility] 04-14-2023 11:50-0400 Systolic blood pressure 132 mm[Hg] Adama Pappas Work Phone: [facility] 04-06-2023 11:57-0400 Body temperature 98.29 [degF] Danita Meraz PA-C Work Phone: [facility] 04-06-2023 11:57-0400 Body weight 98.88 kg Danita Meraz PA-C Work Phone: [facility] 04-06-2023 11:57-0400 Diastolic blood pressure 86 mm[Hg] Danita gordon PA-C Work Phone: [facility] 04-06-2023 11:57-0400 Heart rate 58 /min Danita Meraz PA-C Work Phone: [facility] 04-06-2023 11:57-0400 Respiratory rate 16 /min Danita Meraz PA-C Work Phone: [facility] 04-06-2023 11:57-0400 Systolic blood pressure 118 mm[Hg] Danita Meraz PA-C Work Phone: [facility] 10-09-2022 11:17-0500 Diastolic blood pressure 78 mm[Hg] Adama Mendoza MD Work Phone: [facility] 10-09-2022 11:17-0500 Systolic blood pressure 142 mm[Hg] Adama Pappas Work Phone: [facility] 10-09-2022 11:03-0500 Body weight 97.98 kg Adama Mendoza MD Work Phone: [facility] 10-09-2022 11:03-0500 Heart rate 64 /min Adama Mendoza MD Work Phone: [facility] 10-09-2022 11:03-0500 Respiratory rate 16 /min Adama Mendoza MD Work Phone: [facility] 07-24-2022 21:41-0400 Diastolic blood pressure 80 mm[Hg] [facility] Work Phone: 07-24-2022 21:41-0400 Heart rate 73 /min [facility] Work Phone: 07-24-2022 21:41-0400 Respiratory rate 15 /min [facility] Work Phone: 07-24-2022 21:41-0400 SaO2% (BldA) [Mass fraction] 93 % [facility] Work Phone: 07-24-2022 21:41-0400 Systolic blood pressure 152 mm[Hg] [facility] Work Phone: 07-24-2022 21:15-0400 Inhaled oxygen flow rate 0 L/min [facility] Work Phone: 07-24-2022 20:46-0400 Inhaled oxygen concentration 100 % [facility] Work Phone: 07-24-2022 20:45-0400 Body temperature 98.8 [degF] [facility] Work Phone: 07-24-2022 16:08-0400 Body height 172.72 cm [facility] Work Phone: 07-24-2022 16:08-0400 Body mass index (BMI) [Ratio] 35.4 kg/m2 [facility] Work Phone: 07-24-2022 16:08-0400 Body weight 105.8 kg [facility] Work Phone: 04-04-2022 14:35-0400 Body height 170.2 cm Eulalia Odonnell MD Work Phone: [facility] 04-04-2022 14:35-0400 Body temperature 97.9 [degF] Eulalia Odonnell MD Work Phone: [facility] 04-04-2022 14:35-0400 Body weight 100.25 kg Eulalia Odonnell MD Work Phone: [facility] 04-04-2022 14:35-0400 Diastolic blood pressure 72 mm[Hg] Eulalia Odonnell MD Work Phone: [facility] 04-04-2022 14:35-0400 Heart rate 75 /min Eulalia Odonnell MD Work Phone: [facility] 04-04-2022 14:35-0400 SaO2% (BldA) [Mass fraction] 94 % Eulalia Odonnell MD Work Phone: [facility] 04-04-2022 14:35-0400 Systolic blood pressure 150 mm[Hg] Eulalia Odonnell MD Work Phone: [facility] 04-02-2022 07:03-0400 Body temperature 97.81 [degF] Danita Meraz PA-C Work Phone: [facility] 04-02-2022 07:03-0400 Body weight 100.7 kg Danita Meraz PA-C Work Phone: [facility] 04-02-2022 07:03-0400 Diastolic blood pressure 76 mm[Hg] Danita gordon PA-C Work Phone: [facility] 04-02-2022 07:03-0400 Heart rate 60 /min Danita Meraz PA-C Work Phone: [facility] 04-02-2022 07:03-0400 Respiratory rate 16 /min Danita Meraz PA-C Work Phone: [facility] 04-02-2022 07:03-0400 Systolic blood pressure 138 mm[Hg] Danita Meraz PA-C Work Phone: [facility] 03-26-2022 15:27-0400 Body height 170.2 cm Adama Mendoza MD Work Phone: [facility] 03-26-2022 15:27-0400 Body weight 101.15 kg Adama Mendoza MD Work Phone: [facility] 03-26-2022 15:27-0400 Diastolic blood pressure 80 mm[Hg] Adama Mendoza MD Work Phone: [facility] 03-26-2022 15:27-0400 Heart rate 64 /min Adama Mendoza MD Work Phone: [facility] 03-26-2022 15:27-0400 Respiratory rate 16 /min Adama Mendoza MD Work Phone: [facility] 03-26-2022 15:27-0400 Systolic blood pressure 140 mm[Hg] Adama Pappas Work Phone: [facility] Encounters Encounter Date Encounter Type Care Provider Facility Start: 07-17-2025 End: 07-17-2025 ambulatory ADAMA MENDOZA Facility:[facility] Start: 06-23-2025 End: 06-23-[address] Cayden Morton MD [facility] Work Phone: Start: 06-23-2025 End: 06-23-2025 ambulatory Adama Mendoza Facility[place] Start: 06-12-2025 End: 06-12-2025 Refill Adama Mendoza MD Work Phone: [facility] Comment on above: Refill Request Start: 06-02-2025 End: 06-02-2025 Patient encounter procedure Dandy Faith Work Phone: Podiatry Comment on above: Onychomycosis (Prima ry Dx); Pain in toe of left foot; Pain in toe of right foot; Diminished pulses in lower extremity Start: 06-02-2025 End: 06-02-2025 ambulatory DANDY FAITH Facility:[facility] Start: 06-01-2025 End: 06-01-2025 ambulatory Ayesha Rosas MA [facility] Start: 06-01-2025 End: 06-01-2025 Patient encounter procedure Ayesha Grimaldo [facility] Comment on above: Population Health Na vigation Outreach (Doss/Workbench/ACO ) Start: 05-22-2025 End: 05-22-2025 Refill Adama Mendoza MD Work Phone: [facility] Comment on above: Refill Request Start: 05-16-2025 End: 05-16-2025 Refill Adama Mendoza MD Work Phone: [facility] Comment on above: Refill Request Start: 04-19-2025 End: 04-20-2025 Follow-up encounter Adama Mendoza MD Work Phone: [facility] Comment on above: Results Start: 04-13-2025 End: 04-13-2025 ambulatory ADAMA MENDOZA Facility:[facility] Start: 04-12-2025 End: 06-12-2025 Refill Adama Mendoza MD Work Phone: [facility] Comment on above: Refill Request Results Start: 04-11-2025 End: 04-11-2025 ambulatory ADAMA MENDOZA Facility:[facility] Start: 04-11-2025 End: 04-11-2025 Patient encounter procedure Adama Mendoza MD Work Phone: [facility] Comment on above: Medicare annual well [...] Start: 04-11-2025 End: 04-11-2025 ambulatory ADAMA MENDOZA Facility:[facility] Start: 03-29-2025 End: 03-29-2025 Refill Adama Mendoza MD Work Phone: [facility] Comment on above: Refill Request Start: 03-16-2025 End: 03-16-2025 Telephone encounter Licha Vázquez [address] Comment on above: Patient Question Start: 03-15-2025 End: 03-15-2025 Refill Adama Mendoza MD Work Phone: [facility] Comment on above: Refill Request Start: 02-24-2025 End: 02-24-2025 [facility] Start: 01-24-2025 End: 01-24-2025 Refill Adama Mendoza MD Work Phone: [facility] Comment on above: Refill Request Start: 01-16-2025 End: 01-16-2025 Refill Adama Mendoza MD Work Phone: [facility] Comment on above: Refill Request Start: 01-09-2025 End: 01-09-2025 Follow-up encounter Claude Cardenas APRN.CNP Work Phone: [facility] Start: 01-09-2025 End: 01-09-2025 Subsequent hospital visit by physician Harris [facility] Work Phone: Radiology Comment on above: Fall, initial encoun ter [W19.XXXA] Start: 01-09-2025 End: 01-09-2025 Patient encounter procedure Claude Cardenas APRN.CNP Work Phone: [facility] Comment on above: Fall, initial encoun ter (Primary Dx); Right arm pain; Acute pain of right shoulder; Right hip pain Start: 01-09-2025 End: 01-09-2025 ambulatory ADAMA MENDOZA Facility:[facility] Start: 12-28-2024 End: 12-28-2024 Refill Adama Mendoza MD Work Phone: [facility] Comment on above: Refill Request Start: 12-19-2024 End: 12-19-2024 Refill Adama Mendoza MD Work Phone: [facility] Comment on above: Refill Request Start: 12-14-2024 End: 12-14-2024 Refill Adama Mendoza MD Work Phone: [facility] Comment on above: Refill Request Start: 12-05-2024 [...] Start: 12-05-2024 End: 12-05-2024 ambulatory ADAMA MENDOZA Facility:[facility] Start: 11-25-2024 End: 11-25-2024 Patient encounter procedure Claude Cardenas APRN.CNP Work Phone: [facility] Comment on above: Pressure sensation i n both ears (Primary Dx) Start: 11-25-2024 End: 11-25-2024 ambulatory [facility] Facility:[facility] Start: 11-25-2024 End: 11-25-2024 [facility] Facility:[facility] Start: 11-25-2024 End: 11-25-2024 Patient encounter procedure Dandy Faith Work Phone: Podiatry Comment on above: Onychomycosis (Prima ry Dx); Pain in toe of left foot; Pain in toe of right foot; Left foot pain Start: 11-23-2024 End: 11-23-2024 Patient encounter procedure Danita Meraz PA-C Work Phone: [facility] Comment on above: URI, acute (Primary Dx) Start: 11-23-2024 End: 11-23-2024 ambulatory ADAMA [facility] Facility:[facility] Start: 11-18-2024 End: 11-21-2024 ambulatory Perla Cummings RN [employer] Comment on above: Initial enrollment o [facility] for Chronic Disease Management Start: 11-17-2024 End: 11-17-2024 Refill Adama Mendoza MD Work Phone: [facility] Comment on above: Refill Request Start: 11-14-2024 End: 11-14-2024 Patient Outreach Brianna Doe RN [employer] Comment on above: High Risk phone cont act for Transitional Care Management Start: 11-13-2024 End: 11-13-2024 Patient encounter procedure Room Emergency Radiology Start: 11-13-2024 End: 11-13-2024 Emergency department patient visit Room Emergency Radiology Comment on above: Radio Gen RMP Start: 11-10-2024 End: 11-10-2024 ambulatory ADAMA MENDOZA Facility:[facility] Start: 11-10-2024 End: 11-10-2024 Patient encounter procedure Adama Mendoza MD Work Phone: [facility] Comment on above: Bacterial pneumonia (Primary Dx); Pressure injury of left buttock, stage 2 (HCC) Start: 11-07-2024 End: 11-07-2024 Home visit Adama Mendoza MD Work Phone: [facility] Comment on above: Alzheimer's disease (HCC) (Primary Dx) Start: 11-03-2024 End: 11-03-2024 Refill Adama Mendoza MD Work Phone: [facility] Comment on above: Refill Request Transition Of Care ( TCM follow-up call #2: Discharged 10/20/2024) Weekly phone contact (Recurring) for Transitional Care Management Start: 10-27-2024 End: 10-27-2024 ambulatory Brianna Doe RN [employer] Comment on above: Left hip pain Start: 10-27-2024 End: 11-02-2024 Telephone encounter Dedra Chamorro [facility] Comment on above: Home Care (PT/OT Del ay in service call ) Home Care (cx home P T and OT) Start: 10-27-2024 End: 10-27-2024 Telephone follow-up Brianna Doe RN [employer] Comment on above: Transition Of Care ( TCM follow up call #1: Discharged 10/20/24) Weekly phone contact (Recurring) for Transitional Care Management Start: 10-27-2024 End: 10-27-2024 Home visit Parrish Cotton PT Work Phone: [facility] Comment on above: TELEPHONE CONTACT SN AGENCY DC WO VISI T Start: 10-26-2024 End: 10-26-2024 Telephone encounter Gail Reddy RN Work Phone: [facility] Comment on above: Home Care Start: 10-25-2024 End: 10-25-2024 Home visit Anibal Zavala PT Work Phone: [facility] Comment on above: PT ATTEMPTED VISIT SN ROUTINE Start: 10-24-2024 End: 10-24-2024 Patient encounter procedure Adama Mendoza MD Work Phone: [facility] Comment on above: Acute encephalopathy (Primary Dx); 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); Dementia with behavioral disturbance (HCC); Muscular deconditioning; Pneumonia of left lower lobe due to infectious organism; Decubitus ulcer of left buttock, stage 2 (HCC) Start: 10-24-2024 End: 10-24-2024 ambulatory ADAMA MENDOZA Facility:[facility] Start: 10-21-2024 End: 10-21-2024 Patient Outreach Brianna Doe RN [employer] Comment on above: Transition Of Care ( TCM initial call: Discharged 10/21/24) Initial phone contact for Transitional Care Management Start: 10-20-2024 End: 10-20-2024 Telephone encounter Rosalina Knutson LPN Work Phone: [facility] Comment on above: Home Care (Confirmat ion Call /) Home Care (MD lisette whittaker) Start: 10-15-2024 End: 10-20-2024 Evaluation and management of inpatient ADAMA MENDOZA Facility:[facility] Start: 10-15-2024 End: 10-15-2024 Patient encounter procedure Room Emergency CT Scan Start: 10-15-2024 End: 10-15-2024 Emergency department patient visit Room Emergency CT Scan Comment on above: Radiology CT Start: 10-14-2024 End: 10-14-2024 Office outpatient new 45 minutes Gaudencio her SANDERS Work Phone: Neurology Comment on above: 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) Start: 10-14-2024 End: 10-14-2024 ambulatory [facility] Facility:[facility] Start: 10-14-2024 End: 10-14-2024 Nursing evaluation of patient and report Nurse Card Indy Sousa Work Phone: Cardiology Comment on above: Transient cerebral i schemia, unspecified type Start: 10-14-2024 End: 10-14-2024 ambulatory [facility] Facility:[facility] Start: 10-14-2024 End: 10-14-2024 Patient encounter procedure Margaret Ardon APRN.CNP Work Phone: Neurology Comment on above: Dementia without beh avioral disturbance (HCC) (Primary Dx); NAIN (obstructive sleep apnea); History of CVA (cerebrovascular accident); Altered mental status, unspecified altered mental status type; Abnormal EEG; Transient cerebral ischemia, unspecified type Start: 10-11-2024 End: 10-11-2024 Patient encounter procedure Adama Mendoza MD Work Phone: [facility] Comment on above: Cellulitis of skin ( Primary Dx); Open wound of skin; Dementia with behavioral disturbance (HCC); 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) Start: 10-11-2024 End: 10-11-2024 ambulatory [facility] Facility:[facility] Start: 09-22-2024 End: 09-22-2024 Telephone encounter Margaret Ardon APRN.CNP Work Phone: Neurology Comment on above: Appointment Start: 09-21-2024 End: 09-22-2024 Telephone encounter Danita Meraz PA-C Work Phone: Family [facility] Comment on above: Results requesting help/summer mmendations Start: 09-21-2024 End: 09-21-2024 Emergency department patient visit Adama [facility] Facility:[facility] Start: 09-20-2024 End: 09-20-2024 Patient encounter procedure Adama Mendoza MD Work Phone: [facility] Comment on above: Cellulitis of skin ( Primary Dx); Rash; Encounter for immunization Start: 09-20-2024 End: 09-20-2024 ambulatory ADAMA MENDOZA Facility:[facility] Start: 09-19-2024 End: 09-19-2024 Telephone encounter Adama Mendoza MD Work Phone: [facility] Comment on above: Patient Question (re : vaccines); buttock lesion Start: 09-17-2024 End: 09-19-2024 Refill Adama Mendoza MD Work Phone: Internal Medicine [facility] Comment on above: Refill Request Start: 09-16-2024 End: 09-20-2024 Refill Adama Mendoza MD Work Phone: [facility] Comment on above: Refill Request Start: 09-13-2024 End: 09-14-2024 Telephone encounter Adama Mendoza MD Work Phone: [facility] Comment on above: Results Start: 09-12-2024 End: 09-12-2024 Refill Shaye Kitchen MD Work Phone: Neurology Comment on above: Refill Request Start: 09-10-2024 End: 09-10-2024 Subsequent hospital visit by physician Harris [facility] Work Phone: Radiology Comment on above: Left hip pain [M25.5 52] Start: 09-10-2024 End: 09-10-2024 Patient encounter procedure Adama Mendoza MD Work Phone: [facility] Comment on above: Left hip pain (Prima ry Dx) Start: 09-10-2024 End: 09-10-2024 ambulatory ADAMA MENDOZA Facility:[facility] Start: 09-06-2024 End: 09-08-2024 Telephone encounter Rubén Gonzalez MD Work Phone: General Surgery Comment on above: Biopsy results Start: 09-05-2024 End: 09-05-2024 Refill Adama Mendoza MD Work Phone: [facility] Comment on above: Refill Request Start: 08-29-2024 End: 08-29-2024 Refill Shaye Kitchen MD Work Phone: Neurology Comment on above: Refill Request Start: 08-22-2024 End: 08-22-2024 ambulatory ADAMA MENDOZA Facility:[facility] Start: 08-22-2024 End: 08-22-2024 Patient encounter procedure Rubén Gonzalez MD Work Phone: General Surgery Comment on above: Mass of subcutaneous tissue of back (Primary Dx) Start: 08-16-2024 End: 08-16-2024 Nursing evaluation of patient and report Mi Nurse Work Phone: [facility] Comment on above: Encounter for immuni zation Start: 08-16-2024 End: 08-16-2024 ambulatory ADAMA MENDOZA Facility:[facility] Start: 08-08-2024 End: 08-08-2024 ambulatory ADAMA MENDOZA Facility:[facility] Start: 08-08-2024 End: 08-08-2024 Patient encounter procedure Rubén Gonzalez MD Work Phone: General Surgery Comment on above: Mass of subcutaneous tissue of back Start: 08-01-2024 End: 08-01-2024 Telephone encounter Danita Meraz PA-C Work Phone: [facility] Comment on above: Results Start: 07-27-2024 End: 07-27-2024 Refill Adama Mendoza MD Work Phone: [facility] Comment on above: Refill Request Mass of subcutaneous tissue of back [R22.2] Start: 07-21-2024 End: 07-21-2024 Patient encounter procedure Danita Meraz PA-C Work Phone: [facility] Comment on above: Mass of subcutaneous tissue of back (Primary Dx) Start: 07-07-2024 End: 07-07-2024 Refill Adama Mendoza MD Work Phone: [facility] Comment on above: Refill Request Start: 06-28-2024 End: 06-28-2024 Office outpatient visit 25 minutes Amanda Montana PA-C Work Phone: [facility] Comment on above: Pain of finger of le ft hand (Primary Dx) Start: 06-22-2024 End: 06-22-2024 Patient encounter procedure Jelena Lazar APRN.[employer] Work Phone: [facility] [place] Comment on above: Cellulitis of skin ( Primary Dx); Acute gout of right elbow, unspecified cause; Bacterial pneumonia Refill Request Start: 06-16-2024 End: 06-16-2024 Telephone encounter Adama Mendoza MD Work Phone: [facility] Comment on above: Results Start: 06-15-2024 End: 06-15-2024 ambulatory Shira aMnning RN [employer]SE [employer]END[employer] Comment on above: Information Start: 06-15-2024 End: 06-15-2024 Patient encounter procedure Jelena Lazar APRN.[employer]EL[employer] Work Phone: [facility] Comment on above: Acute gout of right elbow, unspecified cause (Primary Dx) Bacterial pneumonia (Primary Dx); Cellulitis of skin Start: 06-09-2024 End: 06-09-2024 Chart abstracting Adama Mendoza MD Work Phone: [facility] Comment on above: ER Discharge Summary Start: 06-08-2024 End: 06-08-2024 Telephone encounter Adama Mnedoza MD Work Phone: [facility] [place] Comment on above: Patient Question Start: 05-12-2024 End: 05-12-2024 Patient encounter procedure Stephany Suarez MD Work Phone: Pulmonary Medicine Comment on above: 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); Asbestosis (HCC); Former smoker Start: 05-12-2024 Telephone encounter Danita huntley PA-C Work Phone: Family Medicine [facility] Comment on above: Results Start: 05-04-2024 Chart abstracting Judith Vanegas MA [facility] Comment on above: Consult ([facility] ) Start: 04-11-2024 End: 04-11-2024 Patient encounter procedure Adama Mendoza MD Work Phone: [facility] Comment on above: Medicare annual well [...] Telephone encounter Adama Mendoza MD Work Phone: [facility] Comment on above: Results Start: 04-04-2024 End: 04-04-2024 Patient encounter procedure Dandy Marcell Work Phone: Podiatry Comment on above: Calcaneal spur of le ft foot (Primary Dx); Pain of left heel Start: 03-28-2024 Refill Adama diamond MD Work Phone: [facility] Comment on above: Refill Request Start: 03-04-2024 Telephone encounter Danita huntley PA-C Work Phone: [facility] Comment on above: Results Patient Update Start: 03-04-2024 End: 03-04-2024 Subsequent hospital visit by physician Harris [facility] Work Phone: Radiology Comment on above: Pain of left heel [M 79.672] Start: 03-04-2024 End: 03-04-2024 Patient encounter procedure Danita Meraz PA-C Work Phone: [facility] Comment on above: Pain of left heel (P rimary Dx) Dementia without beh avioral disturbance (HCC) (Primary Dx); NAIN (obstructive sleep apnea); History of CVA (cerebrovascular accident); Altered mental status, unspecified altered mental status type; Abnormal EEG Start: 01-25-2024 Refill Adama diamond MD Work Phone: [facility] Comment on above: Refill Request Start: 01-22-2024 End: 01-22-2024 Patient encounter procedure Jessica Miramontes PA-C Work Phone: Neurology Comment on above: Dementia due to [facility] 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 behavioral disturbance (HCC) (Primary Dx); Nonspecific abnormal electroencephalogram (EEG); History of CVA (cerebrovascular accident); Seizure (HCC); Altered mental status, unspecified altered mental status type Start: 01-14-2024 Telephone encounter Adama Mendoza MD Work Phone: [facility] Comment on above: Forms Start: 01-06-2024 End: 01-06-2024 Patient encounter procedure Eeg [facility] [place] Work Phone: Neurology Comment on above: Seizure (HCC); Altered mental status, unspecified altered mental status type Start: 01-06-2024 End: 01-06-2024 ambulatory ADAMA MENDOZA Facility:[facility] Start: 12-23-2023 ambulatory ADAMA MENDOZA Facili ty:[facility] Start: 12-23-2023 End: 12-23-2023 Subsequent hospital visit by physician [facility] (1.5t) Radiology Comment on above: Transient cerebral i schemia, unspecified type [G45.9] Start: 12-16-2023 Telephone encounter Stephany Suarez MD Work Phone: Pulmonary Medicine Comment on above: Results (PFT) Start: 12-15-2023 End: 12-15-2023 ambulatory [facility] Work Phone: [facility] Comment on above: Spirometry Start: 12-15-2023 End: 12-15-2023 Patient encounter procedure [facility] Work Phone: [facility] Start: 11-20-2023 End: 11-20-2023 Patient encounter procedure Shaye Kitchen MD Work Phone: Neurology Comment on above: Dementia without beh avioral disturbance (HCC) (Primary Dx); NAIN (obstructive sleep apnea); History of CVA (cerebrovascular accident); Altered mental status, unspecified altered mental status type; Transient cerebral ischemia, unspecified type; Seizure (HCC) Start: 11-06-2023 Telephone encounter Adama Mendoza MD Work Phone: [facility] Comment on above: Patient Update; Resu lts Start: 10-31-2023 Refill Adama diamond MD Work Phone: [facility] Comment on above: Refill Request Start: 09-26-2023 End: 09-26-2023 [facility] Start: 09-03-2023 Refill Adama diamond MD Work Phone: [facility] Comment on above: Refill Request Start: 07-14-2023 End: 07-14-2023 Patient encounter procedure Adama Mendoza MD Work Phone: [facility] Comment on above: Bacterial pneumonia (Primary Dx); Need for vaccination Start: 06-29-2023 Telephone encounter Adama Mendoza MD Work Phone: [facility] Comment on above: Results Start: 06-27-2023 End: 06-27-2023 Patient encounter procedure [facility] Work Phone: Start: 06-25-2023 Telephone encounter Adama Mendoza MD Work Phone: [facility] Comment on above: Results Start: 06-23-2023 End: 06-23-2023 [facility] Comment on above: COVID-19 [U07.1] Start: 06-23-2023 End: 06-23-2023 Patient encounter procedure Adama Mendoza MD Work Phone: [facility] Comment on above: COVID-19 (Primary Dx ); Bacterial pneumonia; Urinary incontinence, unspecified type; Altered mental status, unspecified altered mental status type; History of CVA (cerebrovascular accident); Other specified transient cerebral ischemias Start: 06-17-2023 ambulatory Sisi vega RN NURSE ATTENDANT [employer]ILD [employer]IV[employer] Comment on above: Mental Status Change s Start: 06-17-2023 End: 06-17-2023 Emergency department patient visit [facility] Work Phone: Start: 05-22-2023 Refill Adama diamond MD Work Phone: [facility] Comment on above: Refill Request Start: 05-07-2023 Telephone encounter Adama Mendoza MD Work Phone: [facility] Comment on above: Orders Start: 05-02-2023 Telephone encounter Adama Mendoza MD Work Phone: [facility] Comment on above: Results Start: 04-30-2023 End: 04-30-2023 Patient encounter procedure Jeff Crouch MD Work Phone: [facility] Comment on above: Urinary incontinence , unspecified type (Primary Dx) Start: 04-30-2023 Telephone encounter Adama Mendoza MD Work Phone: [facility] Comment on above: Patient Update Refill Request Start: 04-14-2023 End: 04-14-2023 Patient encounter procedure Adama Mendoza MD Work Phone: [facility] Comment on above: Medicare annual well ness visit, subsequent (Primary Dx); Essential hypertension, benign; Mixed hyperlipidemia; Elevated fasting blood sugar; CAD S/P percutaneous coronary angioplasty; GERD without esophagitis; History of CVA (cerebrovascular accident); Dementia without behavioral disturbance (HCC); NAIN (obstructive sleep apnea) Start: 04-10-2023 Refill Adama diamond MD Work Phone: [facility] Comment on above: Refill Request Start: 04-06-2023 End: 04-06-2023 Patient encounter procedure Danita Meraz PA-C Work Phone: [facility] Comment on above: Fall, initial encoun ter (Primary Dx); Hematoma; Visit for suture removal Start: 02-05-2023 Chart abstracting Adama justin MD Work Phone: [facility] Comment on above: Consult (Cardiology /) Start: 02-02-2023 Refill Adama diamond MD Work Phone: [facility] Comment on above: Refill Request Start: 01-30-2023 Refill Adama diamond MD Work Phone: [facility] Comment on above: Refill Request Start: 01-08-2023 Refill Adama diamond MD Work Phone: [facility] Comment on above: Refill Request Start: 12-30-2022 End: 12-30-2022 ambulatory Pino Chappell PT Work Phone: [facility] Comment on above: Anterior dislocation of right shoulder, subsequent encounter (Primary Dx); 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, subsequent encounter Start: 12-16-2022 End: 12-16-2022 ambulatory Pino Chappell PT Work Phone: [facility] Comment on above: Anterior dislocation of right shoulder, subsequent encounter (Primary Dx); 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, subsequent encounter Start: 11-24-2022 End: 11-24-2022 ambulatory Pino Chappell PT Work Phone: [facility] Comment on above: Anterior dislocation of right shoulder, subsequent encounter (Primary Dx); 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, subsequent encounter Start: 11-20-2022 End: 11-20-2022 ambulatory Pino Chappell PT Work Phone: [facility] Comment on above: Anterior dislocation of right shoulder, subsequent encounter (Primary Dx); 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, subsequent encounter Start: 11-20-2022 End: 11-20-2022 Patient encounter procedure Dandy Wanlupe Work Phone: Podiatry Comment on above: Onychomycosis (Prima ry Dx); Pain in toe of left foot; Pain in toe of right foot Start: 11-17-2022 End: 11-17-2022 ambulatory Pino Chappell PT Work Phone: [facility] Comment on above: Anterior dislocation of right shoulder, subsequent encounter (Primary Dx); 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, subsequent encounter Start: 11-06-2022 End: 11-06-2022 ambulatory Pino Chappell PT Work Phone: [facility] Comment on above: Anterior dislocation of right shoulder, subsequent encounter (Primary Dx); 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, subsequent encounter Start: 11-04-2022 End: 11-04-2022 ambulatory Pino Keegan PT Work Phone: [facility] Comment on above: Anterior [...] encounter procedure Adama Mendoza MD Work Phone: [facility] Comment on above: Essential hypertensi on, benign [...] 08-27-2022 Refill Adama diamond MD Work Phone: [facility] Comment on above: Refill Request Start: 08-05-2022 End: 08-05-2022 Nursing evaluation of patient and report Mi Nurse Work Phone: [facility] Comment on above: Need for influenza v accination (Primary Dx) Start: 08-04-2022 End: 08-04-2022 Patient encounter procedure Robert Combs MD Work Phone: Orthopaedics Comment on above: Anterior dislocation of right shoulder, initial encounter (Primary Dx); Traumatic tear of right rotator cuff, unspecified tear extent, initial encounter Start: 07-28-2022 Refill Adama diamond MD Work Phone: [facility] Comment on above: Refill Request Referral Request Patient Question Start: 07-24-2022 End: 07-24-2022 [facility] Start: 07-10-2022 Refill Adama diamond MD Work Phone: [facility] Comment on above: Refill Request Start: 06-12-2022 Refill Adama diamond MD Work Phone: [facility] Comment on above: Refill Request Start: 06-04-2022 Refill Adama diamond MD Work Phone: [facility] Comment on above: Refill Request Start: 04-04-2022 End: 04-04-2022 Patient encounter procedure Eulalia Odonnell MD Work Phone: General Surgery Comment on above: Skin lump of arm, ri ght Start: 04-02-2022 End: 04-02-2022 Patient encounter procedure Danita Meraz PA-C Work Phone: [facility] Comment on above: Skin lump of arm, ri ght (Primary Dx) Start: 03-26-2022 End: 03-26-2022 Patient encounter procedure Adama Mendoza MD Work Phone: [facility] Comment on above: Medicare annual well ness [...] 01-27-2022 Refill Adama diamond MD Work Phone: [facility] Comment on above: Refill Request Start: 01-14-2022 Refill Adama diamond MD Work Phone: [facility] Comment on above: Refill Request Start: 06-19-2021 End: 06-19-2021 Subsequent hospital visit by physician [facility] Work Phone: Radiology Comment on above: Hand pain, right [M7 9.641] Start: 05-18-2021 End: 05-18-2021 Subsequent hospital visit by physician [facility] Work Phone: Radiology Comment on above: Hand injury, right, initial encounter [S69.91XA] Start: 03-06-2021 Patient encounter procedure Je rosanne Mendoza MD Work Phone: [facility] Work Phone: Start: 02-18-2021 End: 02-18-2021 Subsequent hospital visit by physician [facility] Work Phone: Radiology Comment on above: Acute right-sided lo w back pain without sciatica [M54.5] Start: 07-16-2018 [facility] Facility :[facility] Start: 11-16-2017 End: 11-16-2017 [facility] Procedures Date Procedure Procedure Detail Performing Clinician Start: 07-17-2025 Follow-up visit Follow Up ADAMA MENDOZA Start: 01-09-2025 Radex forearm 2 views D yolanda Cardenas USER SUPPORT ANALYST SUPERVISOR.[employer] Work Phone: Start: 10-14-2024 Ecg routine ecg w/le ast 12 lds i&r only Margaret Ardon USER SUPPORT ANALYST SUPERVISOR.MI[employer]OS[employer] DEVELOPER Work Phone: Start: 08-22-2024 US GUIDED SOFT [...] Dr. 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 1st Acute Marginal Artery 10/07/2013 Plan of Treatment Date Care Activity Detail Author Start: 04-11-2028 Diabetes Screening Diabetes Screenin g [facility] Start: 04-09-2028 Urine microalbumin profile [facility] Start: 11-13-2027 Diabetes Screening Diabetes Screenin g [facility] Start: 10-18-2027 Diabetes Screening Diabetes Screenin g [facility] Start: 10-15-2027 Diabetes Screening Diabetes Screenin g [facility] Start: 05-10-2027 Diabetes Screening Diabetes Screenin g [facility] Start: 04-08-2027 Diabetes Screening Diabetes Screenin g [facility] Start: 04-04-2027 Diabetes Screening Diabetes Screenin g [facility] Start: 10-08-2026 Diabetes Screening Diabetes Screenin g [facility] Start: 06-23-2026 Diabetes Screening Diabetes Screenty ba [facility] Start: 04-30-2026 DIABETES SCREEN DIABETES SCREEN [facility] Start: 04-30-2026 Diabetes Screening Diabetes Screenty ba [facility] Start: 04-11-2026 Covid-19 Vaccine () Covid-19 Vaccine () [facility] Comment on above: Postponed from 02/13 (Declined at this time) Start: 04-11-2026 Hepatitis B surface antibody level LDL Cholesterol [facility] Start: 04-11-2026 Medicare Annual Wellness Visit Medicare Annual Wellness Visit [facility] Start: 04-02-2026 DIABETES SCREEN DIABETES SCREEN [facility] Start: 11-03-2025 End: 11-03-2025 Patient encounter procedure 11/03/2025 2:00 PM EST Office Visit [facility] [address] [place], [place] [id number] Adama Mendoza MD [address] [place] [address] [id number] mo f[facility]u [facility] [facility] Comment on above: 6 mo f/u Start: 10-09-2025 DIABETES SCREEN DIABETES SCREEN [facility] Start: 09-29-2025 End: 12-29-2025 Basic metabolic 2000 panel - Serum or Plasma BASIC METABOLIC PANEL Lab Routine Essential hypertension, benign Mixed hyperlipidemia Elevated fasting blood sugar Expected: 09/29/2025, Expires: 12/29/2025 [facility] Comment on above: Expected: 09/29/2025 , Expires: 12/29/2025 Start: 09-29-2025 End: 12-29-2025 Hemoglobin A1c in Blood HEMOGLOBIN A1C Lab Routine Elevated fasting blood sugar Expected: 09/29/2025, Expires: 12/29/2025 [facility] Comment on above: Expected: 09/29/2025 , Expires: 12/29/2025 Start: 09-29-2025 End: 12-29-2025 LIPID PANEL, NONFASTING LIPID PANEL, NONFASTING Lab Routine Essential hypertension, benign Mixed hyperlipidemia Expected: 09/29/2025, Expires: 12/29/2025 [facility] Comment on above: Expected: 09/29/2025 , Expires: 12/29/2025 Start: 09-04-2025 End: 09-04-2025 Patient encounter procedure 09/04/2025 2:15 PM EST Office Visit Podiatry [address] [place] [address] Dandy Faith [address] [place] [address] 3 month follow up nail care Podiatry Comment on above: 3 month follow up na pa care Start: 06-05-2025 Influenza vaccination Influenza Vacc ine (#1) [facility] Start: 06-02-2025 End: 06-02-2025 Patient encounter procedure 06/02/2025 2:00 PM EDT Office Visit Podiatry [address] [place] [address] Dandy Faith [address] [place] [address] 3 month follow up nail care Podiatry Comment on above: 3 month follow up [facility] care Start: 05-10-2025 Hepatitis B surface antibody level LDL Cholesterol [facility] Start: 04-12-2025 End: 07-12-2025 Pyridoxine [Mass/volume] in Serum or Plasma VITAMIN B6/PYRIDOXIN Lab Routine Vitamin B6 deficiency Expected: 04/12/2025, Expires: 07/12/2025 [facility] Work Phone: Comment on above: Expected: 04/12/2025 , Expires: 07/12/2025 Start: 04-12-2025 End: 04-12-2025 Patient encounter procedure 04/12/2025 9:00 AM EDT Office Visit Vasculary Surgery [address] [place] [address] Ingrowing toenail [L60.0] Vasculary Surgery Comment on above: Ingrowing toenail [L 60.0] Start: 04-11-2025 End: 07-11-2025 Cobalamin (Vitamin B12) [Mass/volume] in Serum or Plasma [facility] Work Phone: Comment on above: Expected: 04/11/2025 , Expires: 07/11/2025 Start: 04-11-2025 End: 07-11-2025 Comprehensive metabolic 2000 panel - Serum or Plasma [facility] Comment on above: Expected: 04/11/2025 , Expires: 07/11/2025 Start: 04-11-2025 Covid-19 Vaccine () Covid-19 Vaccine () [facility] Comment on above: Postponed from 11/14 (Declined at this time) Start: 04-11-2025 End: 07-11-2025 Hemoglobin A1c in Blood [facility] Comment on above: Expected: 04/11/2025 , Expires: 07/11/2025 Start: 04-11-2025 End: 07-11-2025 LIPID PANEL, NONFASTING [facility] Comment on above: Expected: 04/11/2025 , Expires: 07/11/2025 Start: 04-11-2025 End: 07-11-2025 Magnesium [Mass/volume] in Serum or Plasma [facility] Comment on above: Expected: 04/11/2025 , Expires: 07/11/2025 Start: 04-11-2025 Medicare Annual Wellness Visit Medicare Annual Wellness Visit [facility] Start: 04-11-2025 End: 04-11-2025 Patient encounter procedure [facility] Comment on above: Medicare Wellness Start: 04-11-2025 End: 07-11-2025 Prostate specific Ag [Mass/volume] in Serum or Plasma [facility] Comment on above: Expected: 04/11/2025 , Expires: 07/11/2025 Start: 04-11-2025 End: 07-11-2025 Pyridoxine [Mass/volume] in Serum or Plasma [facility] Comment on above: Expected: 04/11/2025 , Expires: 07/11/2025 Start: 04-11-2025 RSV Vaccine (1 - 1-d ose 60+ series) RSV Vaccine (1 - 1-dose 60+ series) [facility] Comment on above: Postponed from 03/20 (Insurance Coverage) Start: 04-11-2025 RSV Vaccine (1 - 1-d ose 75+ series) RSV Vaccine (1 - 1-dose 75+ series) [facility] Comment on above: Postponed from 03/20 (Insurance Coverage) Start: 04-11-2025 End: 07-11-2025 Urinalysis complete panel - Urine URINALYSIS, WITH MICROSCOPIC Lab Routine Essential hypertension, benign Mixed hyperlipidemia Expected: 04/11/2025, Expires: 07/11/2025 [facility] Comment on above: Expected: 04/11/2025 , Expires: 07/11/2025 Start: 04-11-2025 End: 07-11-2025 Zinc [Mass/volume] in Serum or Plasma [facility] Comment on above: Expected: 04/11/2025 , Expires: 07/11/2025 Start: 04-04-2025 Hepatitis B surface antibody level LDL Cholesterol [facility] Start: 03-26-2025 DIABETES SCREEN DIABETES SCREEN [facility] Start: 03-04-2025 Annual PCP Team Railroad Car Loader jackie Disease Visit Annual PCP Team Chronic Disease Visit [facility] Start: 02-24-2025 End: 02-24-2025 Patient encounter procedure Podiatry Comment on above: 3 month follow up na il care Start: 02-13-2025 Covid-19 Vaccine () Covid-19 Vaccine () [facility] Start: 12-05-2024 End: 12-05-2024 Patient encounter procedure Neurology Comment on above: Follow up 9 months m chloe Dementia, NAIN, Hx of CVA- KYLE 10/14/24 KD, MRI ordered/ done, consult to brain health, pt wasn't taking seroquel per son, reordered seroquel Start: 11-20-2024 BP Controlled (<130/80) BP Controlle d (<130/80) [facility] Start: 11-10-2024 End: 11-10-2024 Patient encounter procedure 11/10/2024 3:20 PM EST Office Visit Family Medicine [facility] [address] [place], [place] [id number] Adama Mendoza MD [address] [place], [place] [id number] 2 week follow up on pneumonia/ulcer [facility] Comment on above: 2 week follow up on pneumonia/ulcer Start: 10-28-2024 End: 10-28-2024 ambulatory 10/28/2024 1:30 PM EST OT/PT/Speech Visit [facility] [address] [place] [address] Pino Chappell, PT [address] [facility] [place] [address] rescheduled from 10/07 [facility] Comment on above: rescheduled from Start: 10-24-2024 End: 10-24-2024 Patient encounter procedure 10/24/2024 1:00 PM EST Office Visit [facility] [address] [place] [address] Adama Mendoza MD [address] [place] [address] discharged from [facility] Comment on above: discharged from [facility] Start: 10-19-2024 End: 10-19-2024 Patient encounter procedure 10/19/2024 3:20 PM EST Appointment Radiology [address] [place] [address] Transient cerebral ischemia, unspecified type [G45.9] Radiology Comment on above: Transient cerebral i schemia, unspecified type [G45.9] Start: 10-17-2024 End: 10-17-2024 Patient encounter procedure 10/17/2024 2:00 PM EST Office Visit Family Medicine [facility] [address] [place] [address] Adama Mendoza MD [address] [place] [address] 6 month follow up [facility] Comment on above: 6 month follow up Start: 10-14-2024 End: 10-14-2024 Patient encounter procedure 10/14/2024 8:30 AM EST Office Visit Neurology [address] [address] Margaret Ardon APRN.[employer] DEVELOPER [address] [place] [address] hospital follow up - 60 minutes per KD Neurology Comment on above: hospital follow up - 60 minutes per KD Start: 10-12-2024 Annual PCP Team Railroad Car Loader jackie Disease Visit Annual PCP Team Chronic Disease Visit [facility] Start: 10-12-2024 BP Controlled (<130/80) BP Controlle d (<130/80) [facility] Start: 10-08-2024 Hepatitis B surface antibody level LDL Cholesterol [facility] Start: 10-07-2024 End: 10-07-2024 ambulatory 10/07/2024 1:30 PM EST OT/PT/Speech Visit [facility] [address] [place] [address] Pino Chappell, PT [address] [place], [place] [id number] Left hip pain [M25.552] [facility] Comment on above: Left hip pain [M25.5 52] Start: 10-05-2024 Advance Directive Discussion Advance Directive Discussion [facility] Start: 09-30-2024 End: 12-30-2024 Basic metabolic 2000 panel - Serum or Plasma BASIC METABOLIC PANEL Lab Routine Essential hypertension, benign Elevated fasting blood sugar Stage 3 chronic kidney disease, unspecified whether stage 3a or 3b CKD (HCC) Expected: 09/30/2024, Expires: 12/30/2024 [facility] Comment on above: Expected: 09/30/2024 , Expires: 12/30/2024 Start: 09-30-2024 End: 12-30-2024 Hemoglobin A1c in Blood HEMOGLOBIN A1C Lab Routine Elevated fasting blood sugar Expected: 09/30/2024, Expires: 12/30/2024 [facility] Comment on above: Expected: 09/30/2024 , Expires: 12/30/2024 Start: 09-30-2024 End: 12-30-2024 LIPID PANEL, NONFASTING LIPID PANEL, NONFASTING Lab Routine Essential hypertension, benign Mixed hyperlipidemia CAD S/P percutaneous coronary angioplasty History of CVA (cerebrovascular accident) Expected: 09/30/2024, Expires: 12/30/2024 [facility] Comment on above: Expected: 09/30/2024 , Expires: 12/30/2024 Start: 09-23-2024 End: 09-23-2024 Patient encounter procedure 09/23/2024 7:30 AM EST Office Visit Neurology [address] [address] Margaret Ardon APRN.[employer] DEVELOPER [address] [place] [address] follow up (per son [facility])Please read all phone notes from 09/21 Neurology Comment on above: follow up (per son [facility])Please read all phone notes from 09/21 Start: 09-20-2024 End: 12-20-2024 Borrelia burgdorferi IgG and IgM panel - Serum [facility] Work Phone: Comment on above: Expected: 09/20/2024 , Expires: 12/20/2024 Start: 09-20-2024 End: 09-20-2024 Patient encounter procedure 09/20/2024 10:20 AM EST Office Visit [facility] [address] [place], [place] [phone] Adama Mendoza MD [address] [place] [address] left buttock lesion-see phone encounter. [facility] Comment on above: left buttock lesion- see phone encounter. Start: 09-09-2024 DIABETES SCREEN DIABETES SCREEN [facility] Start: 08-22-2024 End: 08-22-2024 Patient encounter procedure 08/22/2024 1:45 PM EST Office Visit General Surgery [address] [place], [place] [phone] Rubén Gonzalez MD [address] [place], [place] [phone] elvira 30 us bx back mass General Surgery Comment on above: elvira 30 us bx back ma ss Start: 08-08-2024 End: 08-08-2024 Patient encounter procedure 08/08/2024 2:15 PM EST Office Visit General Surgery [address] [place] [address] Rubén Gonzalez MD [address] [place] [address] Mass of subcutaneous tissue of back [R22.2] General Surgery Comment on above: Mass of subcutaneous tissue of back [R22.2] Start: 07-27-2024 End: 07-27-2024 Patient encounter procedure 07/27/2024 1:00 PM EDT Appointment Radiology [address] [place] [address] Mass of subcutaneous tissue of back [R22.2] Radiology Comment on above: Mass of subcutaneous tissue of back [R22.2] Start: 07-14-2024 Annual PCP Team [employer] Car Loader jackie Disease Visit Annual PCP Team Chronic Disease Visit [facility] Start: 07-14-2024 BP Controlled (<130/80) BP Controlle d (<130/80) [facility] Start: 06-30-2024 End: 06-30-2024 Patient encounter procedure 06/30/2024 11:40 AM EDT Office Visit [facility] [address] [place] [address] Adama Mendoza MD [address] [place] [address] 2 days recheck left middle finger- swollen [facility] Comment on above: 2 days recheck left middle finger- swollen Start: 06-23-2024 Annual PCP Team [employer] Car Loader jackie Disease Visit Annual PCP Team Chronic Disease Visit [facility] Start: 06-22-2024 End: 06-22-2024 Patient encounter procedure 06/22/2024 11:20 AM EDT Office Visit [facility] [address] [place] [address] Jelena Lazar APRN.[employer] DEVELOPER [address] [place] [address] 1 week follow up cellulitis per Dr Mendoza [facility] Comment on above: 1 week follow up rei lulitis per Dr Mendoza Start: 06-15-2024 End: 09-14-2024 Urate [Mass/volume] in Serum or Plasma [facility] Work Phone: Comment on above: Expected: 06/15/2024 , Expires: 09/14/2024 Start: 06-05-2024 Covid-19 Vaccine () Covid-19 Vaccine () [facility] Start: 06-05-2024 Covid-19 Vaccine () Covid-19 Vaccine () [facility] Start: 06-05-2024 Influenza vaccination Influenza Vacc ine (#1) [facility] Start: 05-12-2024 End: 05-12-2024 Patient encounter procedure 05/12/2024 2:15 PM EDT Office Visit Pulmonary Medicine [address] [place] [address] Stephany Suarez MD [address] [place] [address] 3 month f/u Pulmonary Medicine Comment on above: 3 month f/u Start: 05-12-2024 End: 08-11-2024 Basic metabolic 2000 panel - Serum or Plasma BASIC METABOLIC PANEL Lab Routine Stage 3 chronic kidney disease, unspecified whether stage 3a or 3b CKD (HCC) Expected: 05/12/2024, Expires: 08/11/2024 [facility] Work Phone: Comment on above: Expected: 05/12/2024 , Expires: 08/11/2024 Start: 04-30-2024 ANNUAL PCP TEAM PEST CONTROL APPLICATOR JACKIE DISEASE VISIT ANNUAL PCP TEAM CHRONIC DISEASE VISIT [facility] Start: 04-30-2024 BP CONTROLLED (<130/80) BP CONTROLLE D (<130/80) [facility] Start: 04-14-2024 ANNUAL PCP TEAM PEST CONTROL APPLICATOR JACKIE DISEASE VISIT ANNUAL PCP TEAM CHRONIC DISEASE VISIT [facility] Start: 04-11-2024 End: 04-11-2024 Patient encounter procedure [facility] Comment on above: Medicare wellness Medicare wellness/ q uestions on any vitamins can be d/c? Start: 04-06-2024 ANNUAL PCP TEAM PEST CONTROL APPLICATOR JACKIE DISEASE VISIT ANNUAL PCP TEAM CHRONIC DISEASE VISIT [facility] Start: 04-05-2024 End: 07-05-2024 Basic metabolic 2000 panel - Serum or Plasma BASIC METABOLIC PANEL Lab Routine Renal insufficiency Expected: 04/05/2024, Expires: 07/05/2024 [facility] Work Phone: Comment on above: Expected: 04/05/2024 , Expires: 07/05/2024 Start: 04-04-2024 End: 04-04-2024 Patient encounter procedure 04/04/2024 1:45 PM EDT Office Visit Podiatry [address] [place], [place] [phone] Dandy Faith [address] [place], [place] [phone] Pain of left heel [M79.672] Podiatry Comment on above: Pain of left heel [M 79.672] Start: 04-02-2024 Hepatitis B surface antibody level LDL CHOLESTEROL [facility] Start: 03-04-2024 End: 03-04-2024 Patient encounter procedure 03/04/2024 2:00 PM EDT Office Visit Neurology [address] [place], [place] [address] Shaye Kitchen Jr., MD [address] [address] follow up after testing Neurology Comment on above: follow up after test ing Start: 11-14-2023 Covid-19 Vaccine () Covid-19 Vaccine () [facility] Start: 10-09-2023 ANNUAL PCP TEAM PEST CONTROL APPLICATOR JACKIE DISEASE VISIT ANNUAL PCP TEAM CHRONIC DISEASE VISIT [facility] Start: 10-09-2023 Hepatitis B surface antibody level LDL CHOLESTEROL [facility] Start: 10-05-2023 Advance Directive Discussion Advance Directive Discussion [facility] Start: 10-02-2023 End: 12-02-2023 Basic metabolic 2000 panel - Serum or Plasma BASIC METABOLIC PNL Lab Routine Essential hypertension, benign Mixed hyperlipidemia Expected: 10/02/2023, Expires: 12/02/2023 [facility] Work Phone: Comment on above: Expected: 10/02/2023 , Expires: 12/02/2023 Start: 10-02-2023 End: 12-02-2023 Hemoglobin A1c in Blood HGB A1C Lab Routine Elevated fasting blood sugar Expected: 10/02/2023, Expires: 12/02/2023 [facility] Work Phone: Comment on above: Expected: 10/02/2023 , Expires: 12/02/2023 Start: 10-02-2023 End: 12-02-2023 LIPID PANEL, NONFASTING LIPID PANEL, NONFASTING Lab Routine Mixed hyperlipidemia Expected: 10/02/2023, Expires: 12/02/2023 [facility] Work Phone: Comment on above: Expected: 10/02/2023 , Expires: 12/02/2023 Start: 09-26-2023 [facility] Start: 06-23-2023 End: 08-23-2023 Bacteria identified in Urine by Culture [facility] Work Phone: Comment on above: Expected: 06/23/2023 , Expires: 08/23/2023 Start: 06-23-2023 End: 08-23-2023 Comprehensive metabolic 2000 panel - Serum or Plasma [facility] Work Phone: Comment on above: Expected: 06/23/2023 , Expires: 08/23/2023 Start: 06-17-2023 End: 06-17-2023 [facility] Start: 06-17-2023 Bacteria identified in Blood by Culture Blood Culture [facility] Start: 06-17-2023 Bacteria identified in Urine by Culture Urine Culture [facility] Start: 06-17-2023 End: 06-17-2023 Blood culture [facility] Start: 06-05-2023 Influenza vaccination C [facility] Start: 04-30-2023 End: 06-30-2023 Comprehensive metabolic 2000 panel - Serum or Plasma [facility] Work Phone: Comment on above: Expected: 04/30/2023 , Expires: 06/30/2023 Start: 04-30-2023 End: 06-30-2023 Prostate specific Ag [Mass/volume] in Serum or Plasma [facility] Work Phone: Comment on above: Expected: 04/30/2023 , Expires: 06/30/2023 Start: 04-30-2023 End: 06-30-2023 Urinalysis complete panel - Urine [facility] Work Phone: Comment on above: Expected: 04/30/2023 , Expires: 06/30/2023 Start: 04-02-2023 ANNUAL PCP TEAM PEST CONTROL APPLICATOR JACKIE DISEASE VISIT ANNUAL PCP TEAM CHRONIC DISEASE VISIT [facility] Start: 03-27-2023 End: 05-27-2023 CBC W Auto Differential panel - Blood CBC + DIFF Lab Routine Anemia, unspecified type Expected: 03/27/2023, Expires: 05/27/2023 [facility] Work Phone: Comment on above: Expected: 03/27/2023 , Expires: 05/27/2023 Start: 03-27-2023 End: 05-27-2023 Cobalamin (Vitamin B12) [Mass/volume] in Serum or Plasma VITAMIN B12 BLOOD Lab Routine GERD without esophagitis Medication management Expected: 03/27/2023, Expires: 05/27/2023 [facility] Work Phone: Comment on above: Expected: 03/27/2023 , Expires: 05/27/2023 Start: 03-27-2023 End: 05-27-2023 Comprehensive metabolic 2000 panel - Serum or Plasma COMP METABOLIC PANEL Lab Routine Essential hypertension, benign Elevated fasting blood sugar Mixed hyperlipidemia Expected: 03/27/2023, Expires: 05/27/2023 [facility] Work Phone: Comment on above: Expected: 03/27/2023 , Expires: 05/27/2023 Start: 03-27-2023 End: 05-27-2023 Hemoglobin A1c in Blood HGB A1C Lab Routine Elevated fasting blood sugar Expected: 03/27/2023, Expires: 05/27/2023 [facility] Work Phone: Comment on above: Expected: 03/27/2023 , Expires: 05/27/2023 Start: 03-27-2023 End: 05-27-2023 LIPID PANEL, NONFASTING LIPID PANEL, NONFASTING Lab Routine Essential hypertension, benign Mixed hyperlipidemia CAD S/P percutaneous coronary angioplasty Expected: 03/27/2023, Expires: 05/27/2023 [facility] Work Phone: Comment on above: Expected: 03/27/2023 , Expires: 05/27/2023 Start: 03-27-2023 End: 05-27-2023 Magnesium [Mass/volume] in Serum or Plasma MAGNESIUM BLD Lab Routine GERD without esophagitis Medication management Expected: 03/27/2023, Expires: 05/27/2023 [facility] Work Phone: Comment on above: Expected: 03/27/2023 , Expires: 05/27/2023 Start: 03-27-2023 End: 05-27-2023 Urinalysis complete panel - Urine URINALYSIS, WITH MICROSCOPIC Lab Routine Essential hypertension, benign Mixed hyperlipidemia Expected: 03/27/2023, Expires: 05/27/2023 [facility] Work Phone: Comment on above: Expected: 03/27/2023 , Expires: 05/27/2023 Start: 03-26-2023 ANNUAL PCP TEAM PEST CONTROL APPLICATOR JACKIE DISEASE VISIT ANNUAL PCP TEAM CHRONIC DISEASE VISIT [facility] Start: 03-26-2023 BP CONTROLLED (<130/80) BP CONTROLLE D (<130/80) [facility] Start: 03-26-2023 Hepatitis B surface antibody level LDL CHOLESTEROL [facility] Start: 03-26-2023 Urine microalbumin profile DTAP,TDAP,TD (2 - Tdap) [facility] Comment on above: Postponed from 05/21 (Insurance Coverage) Start: 12-20-2022 COVID-19 VACCINE (5 - Pfizer series) COVID-19 VACCINE (5 - Pfizer series) [facility] Start: 01-01-2023 ADVANCE DIRECTIVE DISCUSSION ADVANCE DIRECTIVE DISCUSSION [facility] Start: 09-09-2022 ANNUAL PCP TEAM PEST CONTROL APPLICATOR JACKIE DISEASE VISIT ANNUAL PCP TEAM CHRONIC DISEASE VISIT [facility] Start: 09-09-2022 Hepatitis B surface antibody level LDL CHOLESTEROL [facility] Start: 06-05-2022 Influenza vaccination INFLUENZA (#1) [facility] Start: 03-06-2022 BP CONTROLLED (<130/80) BP CONTROLLE D (<130/80) [facility] Start: 11-26-2021 COVID-19 VACCINE (4 - Booster for Pfizer series) COVID-19 VACCINE (4 - Booster for Pfizer series) [facility] Start: 10-05-2021 ADVANCE DIRECTIVE DISCUSSION ADVANCE DIRECTIVE DISCUSSION [facility] Start: 09-20-2021 COVID-19 VACCINE (4 - Booster for Pfizer series) COVID-19 VACCINE (4 - Booster for Pfizer series) [facility] Start: 05-21-2019 Urine microalbumin profile DTAP,TDAP,TD (2 - Tdap) [facility] Start: 2018 RSV Vaccine (1 - 1-d ose 75+ series) RSV Vaccine (1 - 1-dose 75+ series) [facility] Start: 2003 RSV Vaccine (1 - 1-d ose 60+ series) RSV Vaccine (1 - 1-dose 60+ series) [facility] Start: 1961 Spirometry Spirometry [facility] ECG COMPLETE ECG COMPLETE ECG Routine Transient cerebral ischemia, unspecified type 10/14/2024 10:31 AM EST [facility] Work Phone: End: 11-20-2024 EPIL EEG ROUTINE EPIL EEG ROUTINE NEUROLOGY Routine Seizure (HCC) Altered mental status, unspecified altered mental status type 1 Occurrences starting 11/20/2023 until 11/20/2024 [facility] Work Phone: Comment on above: 1 Occurrences starti ng 11/20/2023 until 11/20/2024 End: 12-19-2024 MR Brain WO contrast MRI BRAIN WO IVCON Radiology Routine Transient cerebral ischemia, unspecified type 1 Occurrences starting 11/20/2023 until 12/19/2024 [facility] Work Phone: Comment on above: 1 Occurrences starti ng 11/20/2023 until 12/19/2024 End: 11-13-2025 MR Brain WO contrast MRI BRAIN WO IVCON Radiology Routine Transient cerebral ischemia, unspecified type 1 Occurrences starting 10/14/2024 until 11/13/2025 [facility] Work Phone: Comment on above: 1 Occurrences starti ng 10/14/2024 until 11/13/2025 End: 12-19-2024 MRA Head vessels WO contrast MRA BRAIN WO IVCON Radiology Routine Transient cerebral ischemia, unspecified type 1 Occurrences starting 11/20/2023 until 12/19/2024 [facility] Work Phone: Comment on above: 1 Occurrences starti ng 11/20/2023 until 12/19/2024 End: 12-19-2024 MRA Neck vessels WO contrast MRA CAROTID WO IVCON Radiology Routine Transient cerebral ischemia, unspecified type 1 Occurrences starting 11/20/2023 until 12/19/2024 [facility] Work Phone: Comment on above: 1 Occurrences starti ng 11/20/2023 until 12/19/2024 End: 07-22-2024 Mri brain brain stem w/o contrast material MRI BRAIN WO IVCON Radiology STAT Urinary incontinence, unspecified type Altered mental status, unspecified altered mental status type History of CVA (cerebrovascular accident) Other specified transient cerebral ischemias 1 Occurrences starting 06/23/2023 until 07/22/2024 [facility] Work Phone: Comment on above: 1 Occurrences starti ng 06/23/2023 until 07/22/2024 Patient Education [facility] Work Phone: Patient referral [facility] Work Phone: Pyridoxine [Mass/volume] in Serum or Plasma VITAMIN B6/PYRIDOXIN Lab Routine Vitamin B6 deficiency 04/13/2025 2:52 PM EDT [facility] SURGICAL PATHOLOGY SURGICAL PATH OLOGY Lab Routine Mass of subcutaneous tissue of back 08/22/2024 1:31 PM EST [facility] Work Phone: UA DIP, URINE (POC) UA DIP, URIN E (POC) Lab Routine Urinary incontinence, unspecified type Ordered: 04/30/2023 [facility] Work Phone: Comment on above: Ordered: 04/30/2023 End: 08-20-2025 US Chest wall US CHEST WALL/SOFT TISSUE Radiology Routine Mass of subcutaneous tissue of back 1 Occurrences starting 07/21/2024 until 08/20/2025 [facility] Work Phone: Comment on above: 1 Occurrences starti ng 07/21/2024 until 08/20/2025 US Chest wall US CHEST WALL/SO FT TISSUE Radiology Routine Mass of subcutaneous tissue of back 07/27/2024 1:31 PM EDT [facility] Work Phone: End: 07-22-2025 XR Chest PA and Lateral XR CHEST 2V FRONTAL/LAT Radiology STAT Bacterial pneumonia 1 Occurrences starting 06/22/2024 until 07/22/2025 [facility] Work Phone: Comment on above: 1 Occurrences starti ng 06/22/2024 until 07/22/2025 End: 07-28-2025 XR Finger - left AP and Lateral and oblique XR DIGIT GENERAL 3V FRONTAL/LAT/OBL LEFT Radiology Routine Pain of finger of left hand 1 Occurrences starting 06/28/2024 until 07/28/2025 [facility] Work Phone: Comment on above: 1 Occurrences starti ng 06/28/2024 until 07/28/2025 End: 04-03-2025 XR Foot - left AP and Lateral and oblique XR FOOT GENERAL 3V AP/LAT/OBL LEFT Radiology Routine Pain of left heel 1 Occurrences starting 03/04/2024 until 04/03/2025 [facility] Work Phone: Comment on above: 1 Occurrences starti ng 03/04/2024 until 04/03/2025 XR Foot - left AP an d Lateral and oblique XR FOOT GENERAL 3V AP/LAT/OBL LEFT Radiology Routine Pain of left heel 03/04/2024 12:33 PM EDT [facility] End: 10-10-2025 XR Pelvis and Hip - left AP and Lateral frog XR HIP GENERAL 3V PELV/AP/LAT LEFT Radiology Routine Left hip pain 1 Occurrences starting 09/10/2024 until 10/10/2025 [facility] Work Phone: Comment on above: 1 Occurrences starti ng 09/10/2024 until 10/10/2025 XR Pelvis and Hip - left AP and Lateral frog XR HIP GENERAL 3V PELV/AP/LAT LEFT Radiology Routine Left hip pain 09/10/2024 10:08 AM EST [facility] Immunizations Immunization Date Immunization Notes Care Provider Esthela oakes 09-20-2024 influenza, high dose seasonal, preservative-free Adama Mendoza MD Work Phone: [facility] 09-20-2024 influenza virus vacc ine, unspecified formulation Adama Mendoza MD Work Phone: [facility] 08-16-2024 COVID-19 vaccine, ag e 12+ yr (PFIZER-BIONTECH COMIRNAT) Mi Nurse Work Phone: [facility] 07-14-2023 COVID-19 vaccine, ag e 12+ yr, 2022- season (PFIZER-BIONTECH) Adama Mendoza MD Work Phone: [facility] 07-14-2023 influenza (HD-IIV4) vaccine, age 65+ yr, high dose, quadrivalent, PF (FLUZONE HIGH-DOSE) Adama Mendoza MD Work Phone: [facility] 07-14-2023 influenza virus vacc ine, unspecified formulation Dandy Faith Work Phone: [facility] 08-22-2022 COVID-19 booster vaccine, age 12+ yr, bivalent (PFIZER-BIONTECH) Adama Mendoza MD Work Phone: [facility] Work Phone: 08-05-2022 influenza, high-dose , quadrivalent vaccine (FLUZONE HIGH DOSE QUADRIVALENT) Al Nurse Work Phone: [facility] Work Phone: 08-05-2022 influenza virus vacc ine, unspecified formulation Sisi Ramey RN [facility] 03-26-2022 pneumococcal Conjuga te, unspecified formulation Adama Mendoza MD Work Phone: [facility] Work Phone: 03-26-2022 pneumococcal (PCV20) vaccine, 20 valent (PREVNAR 20) Adama Mendoza MD Work Phone: [facility] 06-21-2021 influenza, high-dose , quadrivalent vaccine (FLUZONE HIGH DOSE QUADRIVALENT) Adama Mendoza MD Work Phone: [facility] Work Phone: 01-09-2021 zoster vaccine recombinant Adama Mendoza MD Work Phone: [facility] 01-08-2021 zoster vaccine recombinant Adama Mendoza MD Work Phone: [facility] 12-19-2020 COVID-19 vaccine, ag e 12+ yr (PFIZER-BIONTECH - PURPLE TOP) Adama Mendoza MD Work Phone: [facility] 11-28-2020 COVID-19 vaccine, ag e 12+ yr (PFIZER-BIONTECH - PURPLE TOP) Adama Mendoza MD Work Phone: [facility] 08-23-2020 zoster vaccine recombinant Adama Mendoza MD Work Phone: [facility] 07-28-2020 influenza, high-dose , quadrivalent vaccine (FLUZONE HIGH DOSE QUADRIVALENT) Adama Mendoza MD Work Phone: [facility] 07-06-2019 influenza, high dose seasonal, preservative-free Adama Mendoza MD Work Phone: [facility] 07-07-2018 influenza, high dose seasonal, preservative-free Adama Mendoza MD Work Phone: [facility] 04-09-2018 tetanus toxoid, redu no diphtheria toxoid, and acellular pertussis vaccine, adsorbed Danita Meraz PA-C Work Phone: [facility] 06-10-2017 influenza, high dose seasonal, preservative-free Adama Mendoza MD Work Phone: [facility] 06-30-2016 influenza, high dose seasonal, preservative-free Adama Mendoza MD Work Phone: [facility] 11-27-2015 pneumococcal conjuga te vaccine, 13 valent Adama Mendoza MD Work Phone: [facility] 06-23-2014 influenza, high dose seasonal, preservative-free Adama Mendoza MD Work Phone: [facility] 06-23-2014 pneumococcal polysaccharide vaccine, 23 valent Adama Mendoza MD Work Phone: [facility] 09-05-[address] [facility] 09-05-2013 influenza, seasonal, injectable, preservative free Adama Mendoza MD Work Phone: [facility] 08-13-2013 influenza virus vacc ine, unspecified formulation Adama Mendoza MD Work Phone: [facility] 07-27-2012 influenza virus vacc ine, unspecified formulation Adama Mendoza MD Work Phone: [facility] 09-24-2011 influenza virus vacc ine, unspecified formulation Adama Mendoza MD Work Phone: [facility] 08-22-2010 influenza virus vacc ine, unspecified formulation Adama Mendoza MD Work Phone: [facility] 09-18-2009 novel influenza-H1N1 -09, preservative-free, injectable Adama Mendoza MD Work Phone: [facility] 07-04-2009 influenza virus vacc ine, unspecified formulation Adama Mendoza MD Work Phone: [facility] Work Phone: 05-21-2009 diphtheria and tetan us toxoids, adsorbed for pediatric use Adama Mendoza MD Work Phone: [facility] Work Phone: 08-17-2008 influenza virus vacc ine, unspecified formulation Adama Mendoza MD Work Phone: [facility] Work Phone: 03-05-2008 pneumococcal polysaccharide vaccine, 23 valent Danita Meraz PA-C Work Phone: [facility] 03-05-2008 Pneumococcal Vaccine [facility] Work Phone: 03-05-2008 pneumococcal vaccine , unspecified formulation [facility] 08-09-2007 influenza virus vacc ine, unspecified formulation Adama Mendoza MD Work Phone: [facility] Work Phone: 07-13-2007 zoster vaccine, live Adama Mendoza MD Work Phone: [facility] Work Phone: 08-20-2006 influenza virus vacc ine, unspecified formulation Adama Mendoza MD Work Phone: [facility] Work Phone: 05-12-2006 pneumococcal polysaccharide vaccine, 23 valent Adama Mendoza MD Work Phone: [facility] Work Phone: 06-18-1998 tetanus and diphther ia toxoids, adsorbed, preservative free, for adult use (2 Lf of tetanus toxoid and 2 Lf of diphtheria toxoid) Adama Mendoza MD Work Phone: [facility] Work Phone: Payers Date Payer Category Payer Self-pay [id number] 2021 Miscellaneous or Other [employer] Member Subscriber Plan / Payer (Effective 2021-Present) Name: Lory Johnson Relation to Subscriber: Self Name: Lory Johnson Payer ID: Not on file Group ID: Not on file Type: Other [id number] Address: [address] [address] [place] [address] [id number] 2021 Unknown [employer] ILITY [employer] LIABILITY [id number] 2021-Present [phone] [id number] [address] [address] [place] [address] Other [id number] 2019 Private Health Insurance [facility] CHO[facility] PL[facility] [id number] 2019-Present [phone] [address] [place] [address] HMO [id number] 2019 Private Health Insurance [id number] 2019 Private Health Insurance [id number] 2008 Medicare MEDICARE MEDICAR E A AND B [id number] 2008-Present [phone] [place] [address] Medicare [id number] 2008 Medicare [id number] 2008 Medicare [id number] Medicare [id number] Unknown ANTHEM [id number] Unknown [id number] Unknown [id number] Social History Date Type Detail Facility Start: 02-01-2015 End: 06-15-2024 Tobacco smoking status NHIS Ex-smoker [facility] Start: 10-05-1953 End: 10-05-1978 History of tobacco use Current smoker [facility] Start: 10-05-1953 End: 10-05-1978 History of tobacco use Cigarette Smoker [facility] Start: 09-09-2021 End: 06-02-2025 Alcohol intake Current non-drinker of alcohol (finding) [facility] Start: 08-21-2009 End: 04-06-2023 Tobacco Comment quit 1978 [facility] Start: 1945 Sex Assigned At Not on file [facility] Start: 01-19-2021 End: 08-04-2022 Exposure to SARS-CoV-2 (event) Not sure [facility] Start: 02-01-2015 End: 02-18-2023 Cigarettes smoked current (pack per day) - Reported 2.5 [facility] Work Phone: Start: 02-01-2015 End: 06-15-2024 Tobacco use and exposure Smokeless tobacco non-user [facility] Work Phone: Start: 07-24-2022 End: 09-26-2023 Tobacco smoking status [facility] Unknown if ever smoked [facility] Start: 02-11-2018 None [facility] Start: 03-03-2020 Spouse/ Signif icant Other [facility] Start: 02-13-2018 Cigarettes [facility] Start: 1945 Sex Assigned At Male W [facility] Start: 02-18-2023 End: 04-14-2023 Tobacco use panel [facility] Work Phone: Start: 09-05-2012 Adult Depression Screening Assessment 0 [facility] Work Phone: How often to you hav e a drink containing alcohol? Never [facility] Has the [employer], [employer], [employer], or water company threatened to shut off services in your home in past 12Mo No [facility] (I/We) worried stacey er (my/our) food would run out before (I/we) got money to buy more. Never true [facility] Start: 09-21-2024 Tobacco smoking stat us NVIS Smokes tobacco daily (finding) [facility] Functional Status Date Assessment Result Facility 04-11-2025 Total score [AUDIT-C] 0 04/11/20 2:00 PM Ramon Bartlett MA [facility] 10-20-2024 Are you deaf, or do you have serious difficulty hearing No 10/20/2024 2:59 PM Arin Do RN No [facility] 10-20-2024 Are you blind, or do you have serious difficulty seeing, even when wearing glasses No 10/20/2024 2:59 PM Arin Do RN No [facility] 10-20-2024 Do you have serious difficulty walking or climbing stairs Yes 10/20/2024 2:59 PM Arin Do RN Yes [facility] 10-20-2024 Do you have difficul ty dressing or bathing Yes 10/20/2024 2:59 PM Arin Do, VAN Yes [facility] 10-20-2024 Because of a physica l, mental, or emotional condition, do you have difficulty doing errands alone such as visiting a physician's office or shopping Yes 10/20/2024 2:59 PM Arin Do, VAN Yes [facility] Mental Status Date Assessment Result Facility 10-20-2024 Because of a physica l, mental, or emotional condition, do you have serious difficulty concentrating, remembering, or making decisions Yes 10/20/2024 2:59 PM Arin Do, VAN Yes [facility] 09-26-2023 Cognitive function Voice/Name [facility] Work Phone: 06-17-2023 Cognitive function Awake;Follows Commands [facility] Work Phone: 07-24-2022 Cognitive function Awake;Alert;A ppropriate; Follows Commands [facility] Work Phone: Clinical Notes 10-07-2013 to 07-17-2025 Note Date & Type Note Facility 07-17-2025 Note [facility] 06-26-2025 Note HNO ID: [id number] Author: RAMON VALLE MA Service: ? Author Type: Rotary Driller Type: Progress Notes Filed: 06/26/2025 12:11 Note Text: Scan on 06/23/2025 2:36 PM by Provider, Brandie PAMarielenaC: [facility] 06-23-[address] [facility] 06-23-2025 Progress note Note Date/Time June 23, 2025 2:18pm [facility] [address] [place], [place] [address] OFFICE VISIT Date of Service: 06/23/25 MR#: [id number] Acct: [id number] Name: NARA JOHNSON Rep #: [id number] : 1945 Provider: Dr. 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: No Accompanied by: Significant Other Is patient in pain?: No Allergies atorvastatin (From Lipitor) Allergy (Verified 06/23/25 14:02) PT UNSURE OF REACTION azithromycin (From Zithromax) Allergy (Verified 06/23/25 14:02) Itching Beta-Blockers (Beta-Adrenergic Bloc Allergy (Verified 06/23/25 14:02) NEEDS FOLLOW-UP sildenafil (From Viagra) Allergy (Verified 06/23/25 14:02) PT UNSURE OF REACTION Ticfgyx-XGM-OyQ Reductase Inhibitor (Fwjhhfo-Baa-Dmy Reductase Inhibitor) Allergy (Verified 06/23/25 14:02) Other [...] aortic aneurysm (AAA) Atherosclerotic heart disease of [place] coronary artery without angina pectoris Ischemic cerebrovascular [...] mid to distal right coronary artery with ukap-yr-emwun collaterals and moderate disease noted in the [...] coronary artery stent placement: Status: Resolved Comment: ZNQ-NDD-Wof-Distal RCA w/ 2.25 x 28 mm Promus [...] applicable) CC: Dr. Adama Mendoza MD ~ [place] [place] [employer] Work Phone: [phone] 883-769709-08-2025 Telephone encounter Note* Telephone Encounter - Adama Mendoza MD - 06/12/2025 9:15 PM EDT The following approved medication requests have been transmitted electronically. Requested Prescriptions Signed Prescriptions Disp Refills melatonin 3 mg tablet 180 tablet 3 Sig: Take 2 tablets by mouth daily at bedtime. Authorizing Provider: ADAMA MENDOZA MD [facility]09-08-2025 Miscellaneous Notes* Telephone Encounter - Adama [...] asking for PCP to fill. Nisa Puga [facility] June 12, 2025 11:23 AM documented in this encounterCl[facility]09-[facility] Telephone encounter Note * Telephone Encounter [...] asking for PCP to fill. Nisa Puga [facility] June 12, 2025 11:23 AM [facility]08-29-2025 [facility] History of Present illness Narrative* Dandy Faith [...] edema or varicosities noted. Non-Invasive Vascular Laboratory [facility] Lower Extremity Arterial Physiology Study Bilateral/Complete Date [...] at rest. Left small vessel disease. Technologist: aMrgaret Amos [facility] Ordering physician: DANDY FAITH Interpreting physician: Deepak Heard MD, ZELDA [...] months. Dandy Faith DPM documented in this encounterCl[facility]08-28-2025 [facility] History of Present illness Narrative* Ayesha Rosas [...] 01, 2025 12:39 PM documented in this encounterClermont [facility]08-18-2025 Telephone encounter Note * Telephone Encounter - Jeremías Villegas LPN - 05/22/2025 5:53 PM EDT 90 day rx with 1 refill [facility]. Spoke /c pt and notified of the same. [facility]08-18-2025 Miscellaneous Notes* Telephone Encounter - Jeremías Villegas LPN - 05/22/2025 5:53 PM EDT 90 day rx with 1 refill was sent to [facility] on 05/16/25. Spoke /c pt [...] Thank you. Yolie Sarmiento. documented in this encounterClermont [facility] Hospital08-18-2025 Telephone encounter Note * Telephone Encounter [...] 11/03/2025 Please advise. Thank you. Yolie Sarmiento. [facility]08-12-2025 Telephone encounter Note* Telephone Encounter - [...] Ayala MA May 16, 2025 10:57 AM [facility]08-12-2025 Miscellaneous Notes* Telephone Encounter - Dedra [...] 16, 2025 10:31 AM documented in this encounterClermont County Hospital08-12-2025 Telephone encounter Note * Telephone Encounter [...] Jaci Salazar May 16, 2025 10:31 AM [facility]07-17-2025 Telephone encounter Note* Telephone Encounter - Ramon Valle MA - 04/20/2025 9:32 AM EDT Call to pt's and notified her of message below, she verbalized understanding. She did ask if okay to still take B12 vitamin. Discussed with PCP, who stated yes, notified her of this. Ramon Valle MA [facility]07-17-2025 Miscellaneous Notes* Telephone Encounter - Ramon [...] back on this vit. documented in this encounterClermont County Hospital07-16-2025 Telephone encounter Note * Telephone Encounter - Adama Mendoza MD - 04/19/2025 10:25 PM EDT Let know Tom's Vit B6 is fine. He does not need to go back on this vit. [facility]07-10-2025 Telephone encounter Note* Telephone Encounter - Dedra Ayala MA - 04/13/2025 10:10 AM EDT Message left for Refugio to call back. Dedra Ayala MA [facility]07-10-2025 Miscellaneous Notes* Telephone Encounter - Dedra [...] less fat in diet. documented in this encounterClermont [facility] Hospital07-09-2025 Telephone encounter Note * Telephone Encounter [...] good. Work on less fat in diet. [facility]07-09-2025 Telephone encounter Note* Telephone Encounter - Adama Mendoza MD - 04/12/2025 4:48 PM EDT The following approved medication requests have been transmitted electronically. Requested Prescriptions Signed Prescriptions Disp Refills aspirin, enteric coated (ECOTRIN LOW STRENGTH) 81 mg EC tablet 90 tablet 3 Sig: Take 1 tablet by mouth once daily. Authorizing Provider: ADAMA MENDOZA MD [facility]07-09-2025 Miscellaneous Notes* Telephone Encounter - Adama [...] 12, 2025 1:02 PM documented in this encounterClermont County Hospital07-09-2025 Telephone encounter Note * Telephone Encounter [...] Gi Santamaria April 12, 2025 1:02 PM [facility]07-08-2025 NoteAd[facility]07-08-[facility] History of Present illness Narrative* Adama Mendoza [...] stage 3, GFR 30-59 ml/min ([facility]) 04/11/2024 Dementia without behavioral disturbance ([facility]) 05/15/2016 MMSE: 22 05/2016, MMSE: 06/2019, 23 Elevated fasting blood sugar 12/01/2018 Emphysema lung ([facility]) 10/23/2023 Essential hypertension, benign 05/12/2006 Ex-smoker [...] () Malignant neoplasm of prostate ([facility]) 03/01/200802/09 PATH: Left Lobe: GS 7 [...] which included preparing to see the patient, bgae-ak-inwy patient care, completing clinical documentation, performing a medically appropriate examination, counseling and educating the patient/family/caregiver and ordering medications, tests, or procedures. Recording using ImageBrief software for draft documentation of the visit was discussed with the patient/authorized admissions representative; all questions welcomed and answered. Patient/authorized admissions representative agreed to proceed SENSITIVE EXAMINATION CONSENT: The sensitive examination was discussed with the Patient or Patient's Authorized [place]. Asapplicable, any other physician, advance practice provider, medical student, or other health professional student that will be observing or involved in the sensitive examination for educational or training purposes was discussed with the Patient or Authorized [place]. The Patient or Authorized [place] has agreed to proceed with the sensitive examination. documented in this encounterClermont [facility] Hospital06-25-2025 Telephone encounter Note * Telephone Encounter - Nancy Tillman LPN - 03/29/2025 4:12 PM EDT Prescriber sent RX to [facility] in [place]. Nancy Tillman LPN [facility]06-25-2025 Miscellaneous Notes* Telephone Encounter - Nancy Tillman LPN - 03/29/2025 4:12 PM EDT Prescriber sent RX to [facility] in [place]. Nancy Tillman LPN * Telephone Encounter - [...] 29, 2025 1:16 PM documented in this encounterClermont County Hospital06-25-2025 Telephone encounter Note * Telephone Encounter - Hilda Bravo LPN - 03/29/2025 1:25 PM EDT Forwarded to Neurology as Dr. Fidelina park to prescribe. [facility]06-25-2025 Telephone encounter Note* Telephone Encounter - [...] Gi Santamaria March 29, 2025 1:16 PM [facility]06-12-2025 Telephone encounter Note* Telephone Encounter - [...] himself on his own. Salinas Hernandez RN [facility]06-12-2025 Miscellaneous Notes* Telephone Encounter - Salinas [...] this test is necessary. documented in this encounterClermont County Hospital06-12-2025 Telephone encounter Note * Telephone Encounter - Claude Cardenas APRN.CNP - 03/16/2025 2:33 PM EDT Please let patient know th BACH test is an additional tool we use to evaluate cognitive impairment.We would encourage patient to complete testing but it is optional. [facility]06-12-2025 Telephone encounter Note* Telephone Encounter - Chavez Plata LPN - 03/16/2025 1:50 PM EDT Please see message below. Chavez Plata LPN [facility]06-12-2025 Telephone encounter Note* Telephone Encounter - Licha Vázquez PSS - 03/16/2025 1:24 PM EDT Patient's called regarding a message her has received to take a Brief Assessment of Cognitive Health (BACH) test. Spouse is confused because they are no longer following with Neurology, so she is wondering if this test is necessary. [facility]06-11-2025 Telephone encounter Note* Telephone Encounter - [place] Nisa Salazar - 03/15/2025 11:13 AM EDT [...] Nisa Salazar March 15, 2025 11:14 AM [facility]06-11-2025 Miscellaneous Notes* Telephone Encounter - [place] Nisa Salazar - 03/15/2025 11:13 AM EDT [...] 15, 2025 11:14 AM documented in this encounterClermont County Hospital05-23-2025 NoteAd[facility]05-23-2025 NoteAd[facility]04-22-2025 Telephone encounter Note* Telephone Encounter - Yolie [...] 04/11/2025 Please advise. Thank you. Yolie Sarmiento. [facility]04-22-2025 Miscellaneous Notes* Telephone Encounter - Yolie Sarmiento - 01/24/2025 [...] Thank you. Yolie Sarmiento. documented in this encounterClermont County Hospital04-14-2025 Telephone encounter Note * Telephone Encounter - Adama Mendoza MD - 01/16/2025 5:25 PM EDT The following approved medication requests have been transmitted electronically. Requested Prescriptions Signed Prescriptions Disp Refills metoprolol succinate ER (TOPROL XL) 25 mg 24 hr tablet 270 tablet 1 Sig: Take 3 tablets by mouth once daily. Authorizing Provider: ADAMA MENDOZA MD [facility]04-14-2025 Miscellaneous Notes* Telephone Encounter - Adama [...] 16, 2025 2:00 PM documented in this encounterClermont County Hospital04-14-2025 Telephone encounter Note * Telephone Encounter [...] Plata LPN January 16, 2025 2:08 PM [facility]04-14-2025 Telephone encounter Note* Telephone Encounter - [...] Brianna Salazar January 16, 2025 2:00 PM [facility] Work Phone: [phone] Telephone encounter Note* Telephone Encounter - Lia To MA - 01/09/2025 1:46 PM EDT Spoke with son jeff(chart states okay to speak with) son notified and verbalized understanding. Son states he will give message to pt Lia To MA [facility]04-07-2025 Miscellaneous Notes* Telephone Encounter - Lia [...] should follow upin office. documented in this encounterClermont County Hospital04-07-2025 Telephone encounter Note * Telephone Encounter - Claude Cardenas APRN.CNP - 01/09/2025 10:10 AM EDT Please let patient know his xrays are negative. He likely sprained his wrist and pain is likely from the impact of the fall. If patient continues to have pain after 2-4 weeks patient should follow upin office. [facility]04-07-2025 History of Present illness Narrative* Jana [...] PATIENT PRESENTS WITH AN IMPLANTABLE OR ATTACHED ORNAMENT STITCHER: No RADIOLOGY DEPARTMENT: General X-ray: Exam(s) Completed: Pelvis X-Ray: Pelvis with Hip Right Upper Extremity X-Ray(s): Shoulder, AP / TRUE AP / AXILLARY right , Forearm, right , and Wrist, right PERIPHERAL IV DATA: Not applicable SIGNED BY: RT Hector(R) January 09, 2025 8:58 AM documented in this encounterClermont County Hospital04-07-2025 NoteAd[facility]04-07-2025 NoteAd[facility]04-07-2025 History of Present illness Narrative* Claude Cardenas [...] aortic aneurysm (AAA) without rupture ([facility]) 11/08/2016 US: 11/2016 2.6 x 2.4 [...] stage 3, GFR 30-59 ml/min ([facility]) 04/11/2024 Dementia without behavioral disturbance ([facility]) 05/15/2016 MMSE: 22 05/2016, MMSE: 06/2019, 23 Elevated fasting blood sugar 12/01/2018 Emphysema lung ([facility]) 10/23/2023 Essential hypertension, benign 05/12/2006 Ex-smoker [...] HIP GENERAL 3V PELV/AP/LAT RIGHT Claude Cardenas APRN.MICROSOFT DEVELOPER documented in this encounterClerm[facility]03-26-[facility]25 Telephone encounter Note * Telephone Encounter - Adama Mendoza MD - 12/28/2024 12:31 PM EDT The following approved medication requests have been transmitted electronically. Requested Prescriptions Signed Prescriptions Disp Refills pantoprazole DR (PROTONIX) 40 mg tablet 90 tablet 1 Sig: Take 1 tablet by mouth daily before breakfast. Take on empty stomach, 1/2 hr before meal. Authorizing Provider: ADAMA MENDOZA MD [facility]03-26-2025 Miscellaneous Notes* Telephone Encounter - Adama [...] Thank you. Yolie Sarmiento. documented in this encounterClermont County Hospital03-26-2025 Telephone encounter Note * Telephone Encounter [...] Vanegas MA December 28, 2024 9:26 AM [facility]03-26-2025 Telephone encounter Note* Telephone Encounter - [...] 04/11/2025 Please advise. Thank you. Yolie Sarmiento. [facility]03-17-2025 Telephone encounter Note* Telephone Encounter - Dedra Ayala MA - 12/19/2024 11:46 AM EDT Melatonin filled by Dr. Fidelina Merida. This was refilled to [facility] on 12/05/24 #180 pills with 1 refill. Dedra Ayala MA [facility]03-17-2025 Miscellaneous Notes* Telephone Encounter - Dedra Ayala MA - 12/19/2024 11:46 AM EDT Melatonin filled by Dr. Fidelina Merida. This was refilled to [facility] on 12/05/24 #180 pills with 1 refill. [...] 19, 2024 11:09 AM documented in this encounterClermont County Hospital03-17-2025 Telephone encounter Note * Telephone Encounter [...] Laila Crawley December 19, 2024 11:09 AM [facility]03-12-2025 Telephone encounter Note* Telephone Encounter - [...] Carreno LPN December 14, 2024 9:06 AM [facility]03-12-2025 Miscellaneous Notes* Telephone Encounter - Zhanna [...] 14, 2024 9:06 AM documented in this encounterClermont County Hospital03-03-2025 Telephone encounter Note * Telephone Encounter - Adama Mendoza MD - 12/05/2024 5:05 PM EST The following approved medication requests have been transmitted electronically. Requested Prescriptions Signed Prescriptions Disp Refills nitroglycerin sublingual (NITROSTAT) 0.4 mg SL tablet 25 tablet 1 Sig: Dissolve 1 tablet under the tongue every 5 minutes as needed for chest pain. Authorizing Provider: ADAMA MENDOZA MD [facility]03-03-2025 Miscellaneous Notes* Telephone Encounter - Adama [...] 05, 2024 4:17 PM documented in this encounterClermont County Hospital03-03-2025 Telephone encounter Note * Telephone Encounter - Salinas Hernandez RN - 12/05/2024 4:22 PM EST Pts called in and wanted to let provider know that Pt stopped taking the Trazodone on 10/20/24.She wanted provider to update Pts medication list. [facility]03-03-2025 Miscellaneous Notes* Telephone Encounter - Salinas Hernandez RN - 12/05/2024 4:22 PM EST Pts called in and wanted to let provider know that Pt stopped taking the Trazodone on 10/20/24.She wanted provider to update Pts medication list. documented in this encounterClermont County Hospital03-03-2025 Telephone encounter Note * Telephone Encounter [...] Hernandez RN December 05, 2024 4:17 PM [facility]03-03-2025 NoteAd[facility]03-03-[facility]25 History of Present illness Narrative* Shaye Kitchen [...] above in HPI. Pt was evaluated at [facility] at which time son reports CT brain [...] to restart PAP. Pt was seen by [facility] during interim. Per report of 10/14/24: This [...] is not thought to be the main driver medic of his symptoms. G30.1, F02.B2 Moderate late [...] one -- and had to go the [place] ER. Per notes of inpatient services: Reason [...] aortic aneurysm (AAA) without rupture ([facility]) 11/08/2016 US: 11/2016 2.6 x 2.4 [...] stage 3, GFR 30-59 ml/min ([facility]) 04/11/2024 Dementia without behavioral disturbance ([facility]) 05/15/2016 MMSE: 22 05/2016, MMSE: 06/2019, 23 Elevated fasting blood sugar 12/01/2018 Emphysema lung ([facility]) 10/23/2023 Essential hypertension, benign 05/12/2006 Ex-smoker [...] () Malignant neoplasm of prostate ([facility]) 03/01/200802/09 PATH: Left Lobe: GS 7 [...] behavior due to dementia (HCC) ([facility]) 10/11/2024 FAMILY HISTORY Problem Relation Age [...] which included preparing to see the patient, gwqf-qj-xkyr patient care, completing clinical documentation, obtaining and/or reviewing separately obtained history, performing a medically appropriate examination, counseling and educating the pat ient/family/caregiver, ordering medications, tests, or procedures, and communicating results to thepatient/family/caregiver. * Deann Suarez LPN - 12/05/2024 1:42 PM EST documented in this encounterClermont County Hospital03-03-2025 NoteHNO ID: [id number] Author: DEANN SUAREZ LPN Service: ? Author Type: LICENSED NURSE Type: Progress Notes Filed: 12/05/2024 17:50 Note Text:[facility]02-21-2025 [facility]Ad[facility] 11-25-2024 History of Present illness Narrative* Claude Cardenas APRN.MICROSOFT DEVELOPER - 11/25/2024 12:44 PM EST Chief Complaint [...] stage 3, GFR 30-59 ml/min ([facility]) 04/11/2024 Dementia without behavioral disturbance ([facility]) 05/15/2016 MMSE: 22 05/2016, MMSE: 06/2019, [...] behavior due to dementia (HCC) ([facility]) 10/11/2024 Previous Surgical History PAST SURGICAL [...] PROPIONATE 50 MCG/ACTUATION NASAL SPRAY,SUSPENSION Claude Cardenas APRN.MICROSOFT DEVELOPER documented in this encounterClermont County Hospital02-21-2025 NoteAdams [facility]02-21-2025 History of Present illness Narrative* Dandy Faith [...] Objective: Patient presents to clinic ambulating in [facility] Vasc: DP and PT pulses are [...] discoloration Katt Olivares LPN documented in this encounterClermont County Hospital02-21-2025 NoteAd[facility]02-19-2025 NoteAd[facility]02-19-2025 History of Present illness Narrative* Danita Meraz [...] 04/11/2024 Dementia without behavioral disturbance ([facility]) 05/15/2016 MMSE: 22 05/2016, MMSE: 06/2019, [...] behavior due to dementia (HCC) ([facility]) 10/11/2024 Previous Surgical History PAST SURGICAL [...] addressed. Danita Meraz PA-C documented in this encounterClermont County Hospital02-14-2025 NoteAd[facility]02-14-2025 History of Present illness Narrative* Perla Cummings [...] 18, 2024 5:38 PM documented in this encounterClermont County Hospital02-13-2025 Telephone encounter Note * Telephone Encounter [...] To MA November 17, 2024 3:09 PM [facility]02-13-2025 Miscellaneous Notes* Telephone Encounter - Lia [...] 17, 2024 3:09 PM documented in this encounterClermont County Hospital02-10-2025 NoteAd[facility]02-10-2025 History of Present illness Narrative* Brianna Doe RN - 11/14/2024 10:10 AM EST ED Follow-Up Note Provider Action / FYI: None Call completed by: RN Patient seen in ED: In Network ED Contact made with Patient: Yes The patient was identified by Name and Date of . [facility] call note: Spoke with son Tim who [...] seen in the Emergency Department (ED) Location: [place] Date: 11/13/24 Reason for ED Visit: Chest [...] provided with appropriate counseling: Yes Based on surgery tech, the following disposition is advised: No symptoms or symptoms present, not severe. Routed to: No Action Needed SAMIA Education Provided this Outreach: No Brianna Doe RN November 14, 2024 10:11 AM documented in this encounterClermont County Hospital02-09-2025 NoteAd[facility]02-09-2025 History of Present illness Narrative* Ayan LentzRt)Darling [...] PATIENT PRESENTS WITH AN IMPLANTABLE OR ATTACHED ORNAMENT STITCHER: No RADIOLOGY DEPARTMENT: General X-ray: Exam(s) Completed: Chest X-Ray Abdomen X-Ray: Abdomen PERIPHERAL IV DATA: Not applicable SIGNED BY: RT Camejo Tech November 13, 2024 11:42 AM documented in this encounterClermont County Hospital02-06-2025 NoteAd[facility]02-06-2025 History of Present illness Narrative* Adama Mendoza MD - 11/10/2024 3:14 PM EST Chief Complaint Patient presents with: Pneumonia: Follow up HPI Lory Johnson is a 79 year old male who presents here today for Above Complaints.. Patient was seen on 10/24/2024 for /u [facility] for encephalopathy due to acute pneumonia. He [...] aortic aneurysm (AAA) without rupture ([facility]) 11/08/2016 US: 11/2016 2.6 x 2.4 [...] stage 3, GFR 30-59 ml/min ([facility]) 04/11/2024 Dementia without behavioral disturbance ([facility]) 05/15/2016 MMSE: 22 05/2016, MMSE: 06/2019, 23 Elevated fasting blood sugar 12/01/2018 Emphysema lung ([facility]) 10/23/2023 Essential hypertension, benign 05/12/2006 Ex-smoker [...] wellness. Adama Mendoza MD documented in this encounterClermont County Hospital02-03-2025 NoteAd[facility]02-03-2025 History of Present illness Narrative* Adama Mendoza MD - 11/07/2024 4:11 PM EST Patient's home health 485 form / care plan for certification period 10/22/2024 to 12/20/2024 reviewedand signed. Relevant medical records were reviewed. No changes were indicated documented in this encounterClermont County Hospital01-30-2025 Telephone encounter Note * Telephone Encounter - Danita Meraz PA-C - 11/03/2024 2:40 PM EST The following approved medication requests have been transmitted electronically. Requested Prescriptions Signed Prescriptions Disp Refills solifenacin (VESICARE) 5 mg tablet 90 tablet 1 Sig: Take 1 tablet by mouth once daily. Authorizing Provider: DANITA MERAZ PA-C [facility]01-30-2025 Miscellaneous Notes* Telephone Encounter - Danita [...] Next office visit: 11/10/2024 Brianna Doe RN [facility] Nurse documented in this encounter[address]30-2025 Telephone encounter Note * Telephone Encounter [...] Next office visit: 11/10/2024 Brianna Doe RN [facility] Nurse [facility]01-30-2025 NoteAd[facility]01-30-2025 History of Present illness Narrative* Brianna Doe [...] attention at this time Patient discharged from [facility] Discharge date: 10/20/2024 Admitted for: Altered Mental [...] 03, 2024 2:26 PM documented in this encounterClermont County Hospital01-29-2025 Telephone encounter Note * Telephone Encounter - Adama Mendoza MD - 11/02/2024 3:20 PM EST Noted. [facility]01-29-2025 Miscellaneous Notes* Telephone Encounter - Adama [...] son's request. Parrish Wilson PT/Asst Rehab Mgr [phone] documented in this encounterClermont County Hospital01-23-2025 Telephone encounter Note * Telephone Encounter [...] son's request. Parrish Wilson PT/Asst Rehab Mgr [phone] [facility] Work Phone: 1(702) 584-525801-23-2025 History of Present illness Narrative* Pino Chappell, PT - 10/27/2024 2:20 PM EST Program_ID:[id number] Access Code: [email or web address] URL: [email or web address] Date: 10-27-2024 Prepared By: Pino Chappell Program [...] Goals for Episode of Care: established 10/27/24 [place] in home exercise program. - Met Patient Goals: Get some exercises Time Frame for Goals and Treatment : 12/08/24 Planned Interventions, Frequency, and Duration: Current Frequency: Discontinue Therapy Services Duration: 1 visit Total Number of Visits Planned: 0 Planned Treatment Interventions: Therapeutic exercise ([id number]) PLAN FOR NEXT VISIT: NA due to [...] 1436 Pino Chappell PT documented in this encounterClermont County Hospital01-23-2025 [facility]01-23-2025 NoteAd[facility]01-23-2025 History of Present illness Narrative* Brianna Doe [...] attention at this time Patient discharged from [facility] Discharge date: 10/20/2024 Admitted for: Altered Mental [...] 27, 2024 12:14 PM documented in this encounterClermont County Hospital01-23-2025 Telephone encounter Note * Telephone Encounter - Dedra Chamorro - 10/27/2024 10:42 AM EST There has been a delay in service for Home Care PT, OT Evaluation for this patient due to schedule conflict. Patient was notified on 10/27/24. Thank you for this referral, please contact us with any questions. Dedra Chamorro [facility]01-23-2025 Miscellaneous Notes* Telephone Encounter - Dedra Chamorro - 10/27/2024 10:42 AM EST There has been a delay in service for Home Care PT, OT Evaluation for this patient due to schedule conflict. Patient was notified on 10/27/24. Thank you for this referral, please contact us with any questions. Dedra Chamorro documented in this encounterClermont County Hospital01-22-2025 Telephone encounter Note * Telephone Encounter [...] Thank you in advance for your time! [facility] Work Phone: [phone] Miscellaneous Notes* Telephone Encounter - Gail Reddy [...] advance for your time! documented in this encounterClermont County Hospital01-22-2025 Miscellaneous Notes* Telephone Encounter - Gail [...] advance for your time! documented in this encounterClermont County Hospital01-22-2025 Telephone encounter Note * Telephone Encounter [...] Thank you in advance for your time! [facility] Work Phone: [phone] Miscellaneous Notes* [facility] Routine - Gail Reddy RN - 10/25/2024 4:52 PM EST SITUATION: Halfway routine visit completed today. son also present [...] specific): Care plan education documented in this encounterClermont County Hospital01-21-2025 Patient's home Note* SN Routine - Gail Reddy RN - 10/25/2024 4:52 PM EST SITUATION: Halfway routine visit completed today. son also present [...] focus on (be specific): Care plan education [facility] Work Phone: 1(165) 308-828801-20-2025 History of Present illness Narrative* Adama Mendoza [...] disorder (wandering behavior)., Patient was admitted to [facility] 10/15/2024 and discharged on 10/20/2024. 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 3. Dementia with behavioral disturbance ([facility]) - ICD9: 294.21, ICD10: F03.918 - [...] of left buttock, stage 2 ([facility]) - ICD9: 707.05, 707.22, ICD10: L89.322 [...] which included preparing to see the patient, lhnx-dt-vzcq patient care, completing clinical documentation, performing a medically appropriate examination, counseling and educating the patient/family/caregiver and ordering medications, tests, or procedures. Adama Mendoza MD The sensitive examination was discussed with the Patient or Patient's Authorized [place]. Asapplicable, any other physician, advance practice provider, medical student, or other health professional student that will be observing or involved in the sensitive examination for educational or training purposes was discussed with the Patient or Authorized [place]. The Patient or Authorized [place] has agreed to proceed with the sensitive examination. (Sensitive examination includes inspection and/or palpation of the breasts, pelvis, prostate and anorectal regions) documented in this encounterClermont County Hospital01-20-2025 NoteAdams [facility]01-17-2025 NoteAd[facility]01-17-2025 History of Present illness Narrative* Clemencia Population Health NavigatorKeisha - 10/21/2024 10:22 AM EST POPULATION HEALTH NAVIGATION OUTREACH Action/FYI Spoke to patients airam aguilar, scheduled TCM follow up with pcp on 10-24-24 discharged from [facility] Discharge date: 10/20/2024 Admitted for: Altered Mental [...] 10/22/2024 in HOME CARE with [facility], [place] [id number] CM Key [id number] 10/20 Dietary zinc deficiency 10/23/2024 in HOME CARE with HOME CARE, [place] [address] PTE 10/23-10/2710/24/2024 in HOME CARE with HOME CARE, [place] [address] OTE 10/23-10/2710/24/2024 in [facility] with ADAMA MENDOZA - discharged from [facility], Discharge date: 10/20/2024, Admitted for: Altered Mental Status/respiratory infection treated with antibiotcs, Readmission Risk: 29% - High Risk 10/28/2024 in PT [facility] with PINO CHAPPELL - rescheduled from 10/07, Left hip pain [M25.552] 12/05/2024 in NEUR ADULT [facility] with SHAYE KITCHEN JR - Follow up 9 months memory Navigation Signature: Keisha Khanna [facility] Navigator October 21, 2024 10:22 AM Electronically signed by Clemencia [facility] Navigator, Keisha Coats at 10/21/2024 10:23 AM [...] should be made to airam Aguilar at [phone] [facility] Referral Source of Stratification: [facility] Admission Status: Discharged Readmission Risk Score: 29%-high risk Patient meets program referral criteria: No Patient does not qualify for High Risk TCM Home Visit program due to: Readmission Risk Score does not meet criteria Disposition: Patient does not qualify for [facility], will provide TCM outreach follow-up for 30-days Patient Source: In-Network Discharge Initial outreach: TCM discharge report Outreach Summary: Main contact number is for Refugio, who is currently hospitalized herself Call should be made to aiarm Aguilar at [phone] Jeff reports that patient is doing well [...] attention at this time Patient discharged from [facility] Discharge date: 10/20/2024 Admitted for: Altered Mental Status/respiratory infection treated with antibiotcs Readmission Risk: 29% - High Risk Value-Based Contract: ACO Contact: Contact made with patient: Yes Hi, my name is Brianna Doe RN and I am calling from the [facility] on behalf of your Primary Care [...] you? Yes Name of Home Care Agency: [facility] Phone number, if available: [phone] Start of Home Care services date: 10/22/2024 [...] I will send your request to a store protection specialist who will contact and assist you with that appointment. This will give you an opportunity to ask any questions or address any concerns youmay have with your PCP. Inform the patient that if they have any questions or concerns prior to that appointment, to call their PCP's office right away. Appointment Action: Patient desires an appointment. Complete Navigation Team box and route to [facility] ([phone]) for scheduling. Education Patient and family educated [...] 21, 2024 9:59 AM documented in this encounterClermont County Hospital01-17-2025 NoteAd[facility]01-16-2025 Telephone encounter Note* Telephone Encounter - Adama Mendoza MD - 10/20/2024 2:12 PM EST yes [facility]01-16-2025 Miscellaneous Notes* Telephone Encounter - Adama Mendoza MD - 10/20/2024 2:12 PM EST yes * Telephone Encounter - Rosalina Knutson LPN - 10/20/2024 1:23 PM EST Adama Mendoza MD Please advise if you are agreeable to signing and following for [facility] services? Our Clinicians will be sending the Plan of Care to you for review and approval. They will reach out for any appropriate orders required to provide home care services for the patient. We are not able to initiate C services without a following provider. Home care clinicians may also obtain orders from [facility] Virtualist Providers Thank you and we would be happy to answer any questions. Rosalina Knutson LPN 10/20/2024 1:23 PM documented in this encounterClermont County Hospital01-16-2025 Telephone encounter Note * Telephone Encounter - Rosalina Knutson LPN - 10/20/2024 1:23 PM EST Adama Mendoza MD Please advise if you are agreeable to signing and following for [facility] services? Our Clinicians will be sending the Plan of Care to you for review and approval. They will reach out for any appropriate orders required to provide home care services for the patient. We are not able to initiate HHC services without a following provider. Home care clinicians may also obtain orders from [facility] Virtualist Providers Thank you and we would be happy to answer any questions. Rosalina Knutson LPN 10/20/2024 1:23 PM [facility] Work Phone: [phone]) 409-595201-16-2025 Telephone encounter Note* Telephone Encounter - Rosalina Knutson LPN - 10/20/2024 1:20 PM EST Date/Time: 10/20/2024 1:20 PM Spoke with son Tim @ phone #: [phone] - Preferred # for contact: [phone] Have you received help from a home care company in the last 60 days? No Are you agreeable to [facility] services? yes What address will we be seeing you at? [address] [place] [address] Do you have any upcoming appointments or things we need to schedule around? 11/01 Do you have a teachable CG or can you manage your care independently? Yes Who? Spouse Have you received the flu shot? Yes If so, when and where? 09/20/24 [facility] Work Phone: [phone]) 753-766401-16-2025 Miscellaneous Notes* Telephone Encounter - Rosalina Knutson LPN - 10/20/2024 1:20 PM EST Date/Time: 10/20/2024 1:20 PM Spoke with airam Dumont @ phone #: [phone] - Preferred # for contact: [phone] Have you received help from a home care company in the last 60 days? No Are you agreeable to [facility] services? yes What address will we be seeing you at? [address] [place] [address] Do you have any upcoming appointments or things we need to schedule around? 11/01 Do you have a teachable CG or can you manage your care independently? Yes Who? Spouse Have you received the flu shot? Yes If so, when and where? 09/20/24 documented in this encounterClermont County Hospital01-15-2025 NoteHNO ID: [id number] Author: SOTO VALDERRAMA MD Service: Hospital Medicine Author Type: Physician Type: Progress Notes Filed: 10/20/2024 05:01 Note Text: DEPARTMENT OF HOSPITAL MEDICINE PROGRESS NOTE SERVICE DATE: 10/19/2024 SERVICE TIME: 1:25 PM Hospital Medicine/Primary Attending: Soto Valderrama MD NIGHT AND WEEKEND COVERAGE: RANDOLPH COVERAGE: Nights: [phone], please page [facility] Night coverage pager [phone]. Probable discharge: 10/20 Disposition: Home health care Consultants: Antonia Beltre for psychiatry ([facility]) PROCEDURES: NONE CODE STATUS: Full code ASSESSMENT/PLAN [...] (obstructive sleep apnea) Overview: MENG Schilling phone [phone] fax [phone]. Essential hypertension, benign Overview: Goal<150/90 Presence of stent in coronary artery in patient with coronary artery disease Zinc deficiency Overactive bladder CKD (chronic kidney disease) stage 3, GFR 30-59 ml/min ([facility]) Alzheimer dementia with behavioral disturbance (HCC) [...] Ref Range Status / (more content not included)...[facility] [id number] GjgeHUIX-VBI-7 (AGENT OF COVID-19) RNA: Not detected INFLUENZA A RNA: Not detected INFLUENZA B RNA: Not detected RESPIRATORY SYNCYTIAL VIRUS (RSV) RNA: Not detectedWarfordsburg HospitalComment on above:Performed By: #### [id number] ####RANDOLPH LABORATORYCLIA [id number] [place] [address] [facility]01-15-2025 NoteHNO ID: [id number] Author: GISEL SMILEY DO Service: Hospital Medicine Author Type: Physician Type: Progress Notes Filed: 10/19/2024 00:15 Note Text: Nursing notified me of new productive cough and coarse breath sounds. Patient seen at bedside. Is noted to be coughing while being evaluated. No Respiratory distress. No hypoxia. Bronchial breath sounds noted. Will get COVID/FLU/RSV and CXR. Gisel Smiley DO October 19, 2024 12:15 AMPromedica Toledo HospitalYpatcrwb17-60-3914 NoteHNO ID: [id number] Author: SOTO VALDERRAMA MD Service: Hospital Medicine Author Type: Physician Type: Progress Notes Filed: 10/19/2024 10:01 Note Text: Addendum:Metabolic encephalopathy from dehydration which exacerbated his baseline dementia. Soto Valderrama MD October 19, 2024 10:01 AM DEPARTMENT OF HOSPITAL MEDICINE PROGRESS NOTE SERVICE DATE: 10/18/2024 SERVICE TIME: 7:45 AM Hospital Medicine/Primary Attending: Soto Valderrama MD NIGHT AND WEEKEND COVERAGE: RANDOLPH COVERAGE: Nights: [phone], please page [place] Hospitalist Night coverage pager [phone]. Probable discharge: 10/20 Disposition: Home health care Consultants: Practitioner Glanc for psychiatry ([facility] PROCEDURES: NONE CODE STATUS: Full code ASSESSMENT/PLAN [...] seeing Neuro NAIN (obstructive sleep apnea) Overview: [facility] EdouardAirgalo phone [phone] fax [phone]. Essential hypertension, benign Overview: Goal<150/90 Presence of [...] mIU/L Final HOSPITAL C (more content not included)...[facility] HospitalOslnxtdx66-03-5208 NoteHNO ID: [id number] Author: SOTO VALDERRAMA MD Service: Hospital Medicine Author Type: Physician Type: Progress Notes Filed: 10/18/2024 05:40 Note Text: DEPARTMENT OF HOSPITAL MEDICINE PROGRESS NOTE SERVICE DATE: 10/17/2024 SERVICE TIME: 5:32 PM Hospital Medicine/Primary Attending: Soto Valderrama MD NIGHT AND WEEKEND COVERAGE: RANDOLPH COVERAGE: Nights: [phone], please page [facility] Night coverage pager [phone]. Probable discharge: 10/20 Disposition: To be determined Consultants: Practitioner Patt for psychiatry ([facility]) PROCEDURES: NONE CODE STATUS: Full code ASSESSMENT/PLAN [...] (obstructive sleep apnea) Overview: [facility] Schilling phone [phone] fax [phone]. Cough Essential hypertension, benign Overview: Goal<150/90 Overactive [...] BP Readings: Date: BP: (more content not included)...[facility] HospitalJzfrqyet05-70-1803 NoteHNO ID: [id number] Author: SAUL SIFUENTES MD Service: Hospital Medicine Author Type: Physician Type: Progress Notes Filed: 10/16/2024 23:01 Note Text: Per Neuro considerations, patient was administered 1/2 dose seroquel and melatonin held given oversedation. He pulled his hughes at 8pm, and we will continue to monitor with bladder scans. Unfortunately, his mental status continued to worsen with progressive agitation, delirium. 2mg IV haldol ordered. [facility] HospitalHspuafzy40-43-4087 NoteHNO ID: [id number] Author: GONZALEZ TOBAR LSW Service: Care Management Author Type: Clipper And Turner Type: Care Mgt Initial Assessment Filed: 10/16/2024 12:57 Note Text: CARE MANAGEMENT: ASSESSMENT AND DISCHARGE PLAN SERVICE DATE: October 16, 2024 SERVICE TIME: 12:48 PM PCP: Adama Mendoza MD Primary Contact: Extended Emergency Contact Information Primary Emergency Contact: Refugio Johnson Address: [address] [place] [address] OF JUAN PABLO Mobile Relation: Spouse Secondary Emergency Contact: tim johnson Mobile Relation: Son Admission Status: Inpatient Insurance Provider: MEDICARE A AND B Discharge Planning requested by: Per Department Practice Potential Transition Plans Home Advance Directives Current Advance Directive: Health Care Power of Ticker Wirer;Living Will In Chart: Yes Up To Date [...] Be able to go home, General wellness [place] of Choice Explained: [place] of Choice Given: No Reason Not Given: [...] while the patient's spouse is currently at [facility] for rehab. CM assigned will continue to follow for discharge needs. SIGNATURE: BARBRA Rosenbaum PATIENT NAME: Lory Johnson DATE: October 16, 2024 TIME: 12:48 PMPromedica Toledo HospitalViqnohyo83-76-7240 NoteHNO ID: [id number] Author: SOTO VALDERRAMA MD Service: Hospital Medicine Author Type: Physician Type: Progress Notes Filed: 10/16/2024 20:03 Note Text: DEPARTMENT OF HOSPITAL MEDICINE PROGRESS NOTE SERVICE DATE: 10/16/2024 SERVICE TIME: 7:46 AM Hospital Medicine/Primary Attending: Soto Valderrama MD NIGHT AND WEEKEND COVERAGE: RANDOLPH COVERAGE: Nights: [phone], please page [facility] Night coverage pager [phone]. Probable discharge: 10/20 Disposition: To be determined Consultants: Practitioner Glanc for psychiatry ([facility] at [facility]) PROCEDURES: NONE CODE STATUS: Full code ASSESSMENT/PLAN [...] (obstructive sleep apnea) Overview: MENG Schilling phone [phone] fax [phone]. Cough Essential hypertension, benign Overview: Goal<150/90 Overactive [...] 5.4 09/09/2021 5.8 02/18 (more content not included)...[facility] HospitalJeeozmmt16-62-4384 VeqoOUPM-QWZ-2 (AGENT OF COVID-19) RNA: Not detected INFLUENZA A RNA: Not detected INFLUENZA B RNA: Not detected RESPIRATORY SYNCYTIAL VIRUS (RSV) RNA: Not detectedPromedica Toledo HospitalComment on above:Performed By: #### [id number] ####RANDOLPH LABORATORYCLIA [id number] [place] [address] [place] [id number] NoteAdams County Hospital01-11-2025 History of Present illness Narrative* Bibiana Adan [...] PATIENT PRESENTS WITH AN IMPLANTABLE OR ATTACHED ORNAMENT STITCHER: No RADIOLOGY DEPARTMENT: CT; Exam(s) Completed: Brain PERIPHERAL IV DATA: Not applicable SIGNED BY: Darling Minor October 15, 2024 10:26 AM documented in this encounterClermont County Hospital01-10-2025 Instructions* Patient Instructions* Gaudencio Allen DO [...] you need to reschedule this please call [phone]. If you need to reach our office for any reason prior to your next visit, please contact us through [employer] or call [phone]. Ways to keep your brain healthy: Follow [...] fish and fish high in mercury (swordfish, Mongolian sea dwyer, orange roughy, ahi tuna, albacore [...] resources are: The Alzheimer's Association (web site: alz.org/[place]) available 24 hours a day, 7 days per week. Contact: Local: ; Toll free: [phone] Family Caregiver [place] (web site: Caregiver.org) MAIRA Marsh-- a secure online solution for quality information, support, and resources for family caregivers. Contact: Toll-free number: [phone] Alzheimers.gov - Find Alzheimer disease and related dementias information, resources, research and more. documented in this encounterClermont County Hospital01-10-2025 NoteAdams County Hospital01-10-2025 History of Present illness Narrative* Gaudencio Allen DO - 10/14/2024 1:03 PM EST Images from the original note were not included. Chief Complaint: Behavioral changes and dementia I had the pleasure of seeing this 79 year old year old male at [facility]. The patient is referred by Margaret Ardon [address] [place] [id number] Patient is accompanied by and information obtained [...] keep him at home and he has plaster helper to come by several times per [...] Activities of Daily Living [place] in Activities of Daily Living (A.D.L.) Bathing: [...] blood sugar 12/01/2018 Emphysema lung ([facility]) 10/23/2023 Essential hypertension, benign 05/12/2006 Ex-smoker [...] () Malignant neoplasm of prostate ([facility]) 03/01/200802/09 PATH: Left Lobe: GS 7 [...] Wandering behavior due to dementia ([facility]) ([facility]) 10/11/2024 ALLERGIES Allergen Reactions Zithromax [Azithrom* [...] occlusion of the intracranial or extracranial arteries. Executor Of Estate: TITUS Transcribe Date/Time: Dec 23 2023 8:12A [...] is not thought to be the main driver medic of his symptoms. G30.1, F02.B2 Moderate late [...] which included preparing to see the patient, fwzf-nf-taan patient care, performing a medically appropriate examination, completing clinical documentation, and on counseling/ eductaing the patient and the family. Gaudencio Allen DO * Chino Finney MA - 10/14/2024 12:15 PM EST Lory Johnson is a 79 year old year old right handed man Accompanied by: patient and son. Referral by: Margaret Ardon [address] [facility] [address] Education: High School Diploma, 12 years Employment Status: Retired Title of Last Job (What did pt do?) pt unsure What would you like to accomplish with this visit today? Pt here to get a test of cognitive ability. Unsure of what he'll like to get out of appt. Pt thinks son is driver medic but is having moments where he do remember that the driver medic is also his son. Vital Signs: There were no vitals taken for this visit. documented in this encounterClermont County Hospital01-10-2025 NoteAdams County Hospital01-10-2025 History of Present illness Narrative* Keegan Villegas RN - 10/14/2024 10:42 AM EST Images from the original note were not included. [facility] V[facility] Thor[facility] [place] Department of Cardiovascular Medicine OUTPATIENT VISIT TYPE NURSE VISIT PATIENT NAME: Lory Johnson DATE OF SERVICE: 10/14/2024 PRIMARY SHIP PAINTER HELPER: MARKO Guevaratico Johnson is a 79 year old established patient who presents today for a nurse visit per Dr. Ardon for an EKG Patient taking medication as prescribed: not asked Took medication today: no asked VISIT VITAL SIGNS: There were no vitals taken for this visit. Physician/ELIZ notification and treatment plan: No abnormal findings. Nursing Plan: Patient education: apartment maintenance technician for final review Patient instructed to call and update the office if there are any changes in current condition. Patient verbalizes understanding of the plan: Yes. Patient's questions were addressed during the visit today: Yes Keegan Villegas RN October 14, 2024 10:42 AM documented in this encounterClermont County Hospital01-10-2025 NoteAdams County Hospital01-10-2025 History of Present illness Narrative* Margaret Ardon APRN.MICROSOFT DEVELOPER - 10/14/2024 8:30 AM EST Images from the original note were not included. [facility] [place] Follow-up Visit Follow-up note October 14, 2024 [...] and got him and took him to [facility]. Hospital could not keep him and family [...] Words, up to 2 trials: Face, Velvet, Mandaeism, Catarina, Red (no points) 0/5 first try, [...] 1 error) (0/1) Serial subtraction by 7: [id number] (3 points for correct 4 or 5; 2 points for 2 or 3 correct; 1 point for 1 correct) [id number] (0/3) Language: repeat: I only know that [...] (0/2) Delayed recall: recall words: face, velvet, samaritan, catarina, red (0-5) (0/5) Orientation: date(1), month(1), [...] stage 3, GFR 30-59 ml/min ([facility]) 04/11/2024 Dementia without behavioral disturbance ([facility]) 05/15/2016 MMSE: 22 05/2016, MMSE: 06/2019, 23 Elevated fasting blood sugar 12/01/2018 Emphysema lung ([facility]) 10/23/2023 Essential hypertension, benign 05/12/2006 Ex-smoker [...] () Malignant neoplasm of prostate ([facility]) 03/01/200802/09 PATH: Left Lobe: GS 7 [...] above in HPI. Pt was evaluated at [facility] at which time son reports CT brain [...] other treatments. Discuss[facility] and he would like to proceed [...] 10/14/24 MRI BRAIN WO IVCON CONSULT TO [facility] ECG COMPLETE Margaret Ardon APRN.RACHELLE I spent a total of 87 minutes on the date of the service which included preparing to see the patient, mjsl-nx-icve patient care, completing clinical documentation, obtaining and/or reviewing separately obtained history, performing a medically appropriate examination, counseling and educating the pat ient/family/caregiver, and ordering medications, tests, or procedures. documented in this encounterClermont County Hospital01-10-2025 NoteAdams County Hospital01-07-2025 Instructions* Patient Instructions* Adama Mendoza MD - [...] him see wound center. documented in this encounterClermont County Hospital01-07-2025 History of Present illness Narrative* Adama [...] - difficulty walking Patient was seen in [facility] 09/21/2024 Patient was seen in our office [...] which included preparing to see the patient, bezo-ie-vlff patient care, completing clinical documentation, performing a medically appropriate examination, counseling and educating the patient/family/caregiver and ordering medications, tests, or procedures. documented in this encounterClermont County Hospital01-07-2025 NoteAdams County Hospital12-19-2024 Telephone encounter Note* Telephone Encounter - Palma Padron - 09/22/2024 4:16 PM EST Patient is rescheduled for 10/14/2024 at 8:30 AM Palma Padron [facility]12-19-2024 Miscellaneous Notes* Telephone Encounter - Palma [...] (60 minute) time slot. documented in this encounterClermont County Hospital12-19-2024 Telephone encounter Note * Telephone Encounter - Marilyn Ferro RN - 09/22/2024 3:45 PM EST Received message from Margaret Ardon APRN.CNP regarding appointment scheduled for 7:30 AM tomorrow. Patient will need to be rescheduled in a NEW patient (60 minute) time slot. [facility]12-19-2024 Telephone encounter Note* Telephone Encounter - Zhanna Carreno LPN - 09/22/2024 10:49 AM EST Patient son tim returned call to schedule appt for his father with Dr Kitchen. Went over notes below and assisted with transfer to store protection specialist to get appt set up in [place] as son requested. [facility]12-19-2024 Miscellaneous Notes* Telephone Encounter - Zhanna Carreno LPN - 09/22/2024 10:49 AM EST Patient son tim returned call to schedule appt for his father with Dr Kitchen. Went over notes below and assisted with transfer to store protection specialist to get appt set up in [place] [...] offer appointment with MQ or KD in [place] offices. No answer, left VM to return call. MARRY Tamez * Telephone Encounter - Judith Vanegas MA - 09/21/2024 1:13 PM EST ER report taken to Dr. Kitchen's office given to nursing staff for review. Judith Vanegas MA * Telephone Encounter - Shaye Kitchen Jr., MD - 09/21/2024 1:07 PM EST Clearly a significant decline. Please confirm that [facility] ER performed basic labs and UA to evaluate for infectious or metabolic process exacerbating condition or if head imaging performed. The hours ofevents do not clearly correlate with sundowning. If he is not getting better should be reevaluated in ER as sundowning should resolve over time during 24 hours - not persist. Please schedule for follow up with Neur ELIZ in [place] or [facility] to get better understanding of changes. He [...] and got him and took him to [facility]. Hospital could not keep him and family was told this is sundowners related to Alzheimer's. Pt was released this am at 5 and then he did know his son. They are not sure what to do here. Is here a process to evaluate him for in home care or get him into a facility. Pt does not have a hazardous waste technician and they want him evaluated to have record that he needs care and try get insurance to cover instead of having private care/pay. Please advise daughter if there is any help for this. farmworkers at [facility] told them to call pcp. They could not do anything because pt is not a pt there. Please advise daughter. Christi Roberts LPN documented in this encounterClermont County Hospital12-19-2024 Telephone encounter Note * Telephone Encounter - Kelin Winters RN - 09/22/2024 9:24 AM EST Daughter returns call and messages reviewed. Ailyn to have her brother call back to schedule an appointment as he will be the one bringing patient. Kelin Winters RN [facility]12-19-2024 Telephone encounter Note* Telephone Encounter - Kelin Winters RN - 09/22/2024 9:14 AM EST Daughter returns call and message below reviewed with verbalized understanding. Kelin Winters RN [facility]12-19-2024 Miscellaneous Notes* Telephone Encounter - Kelin Wniters RN - 09/22/2024 9:14 AM EST Daughter [...] disease test was negative. documented in this encounterClermont County Hospital12-19-2024 Telephone encounter Note * Telephone Encounter - Birgit Holt OCCA - 09/22/2024 9:09 AM EST TC to patients daughter to offer appointment with MQ or KD in [place] offices. No answer, left VM to return call. MARRY Tamez [facility]12-18-2024 Telephone encounter Note* Telephone Encounter - Zhanna Carreno LPN - 09/21/2024 3:01 PM EST Phoned patient left message to return call and ask to speak to a nurse. [facility]12-18-2024 Telephone encounter Note* Telephone Encounter - Danita Meraz PA-C - 09/21/2024 2:17 PM EST Lyme disease test was negative. [facility]12-18-2024 Telephone encounter Note* Telephone Encounter - Judith Vanegas MA - 09/21/2024 1:13 PM EST ER report taken to Dr. Kitchen's office given to nursing staff for review. Judith Vanegas MA [facility]12-18-2024 Telephone encounter Note* Telephone Encounter - Shaye Kitchen Jr., MD - 09/21/2024 1:07 PM EST Clearly a significant decline. Please confirm that [facility] ER performed basic labs and UA to evaluate for infectious or metabolic process exacerbating condition or if head imaging performed. The hours ofevents do not clearly correlate with sundowning. If he is not getting better should be reevaluated in ER as sundowning should resolve over time during 24 hours - not persist. Please schedule for follow up with Neur ELIZ in [place] or [facility] to get better understanding of changes. He might need Seroquel if appropriate but would like him seen first by one of us. Thank you, Shaye Kitchen MD [facility]12-18-2024 Telephone encounter Note* Telephone Encounter - [...] manage and needs a STAT geropsychiatry eval. [facility]12-18-2024 Telephone encounter Note* Telephone Encounter - [...] and got him and took him to [facility]. Hospital could not keep him and family was told this is sundowners related to Alzheimer's. Pt was released this am at 5 and then he did know his son. They are not sure what to do here. Is here a process to evaluate him for in home care or get him into a facility. Pt does not have a hazardous waste technician and they want him evaluated to have record that he needs care and try get insurance to cover instead of having private care/pay. Please advise daughter if there is any help for this. farmworkers at [facility] told them to call pcp. They could not do anything because pt is not a pt there. Please advise daughter. Christi Roberts LPN [facility]12-17-2024 Telephone encounter Note* Telephone Encounter - Chavez Plata LPN - 09/20/2024 1:16 PM EST Message routed to Dr Kitchen to refill Aricept. Pravastatin has been refilled. Chavez Plata LPN [facility]12-17-2024 Miscellaneous Notes* Telephone Encounter - Chavez [...] by mouth daily at bedtime. Jaci Roberts [place] September 16, 2024 10:58 AM documented in this encounterClermont County Hospital12-17-2024 History of Present illness Narrative* Adama [...] known fevers or chills. 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 Past [...] stage 3, GFR 30-59 ml/min ([facility]) 04/11/2024 Dementia without behavioral disturbance ([facility]) 05/15/2016 MMSE: 22 05/2016, MMSE: 06/2019, 23 Elevated fasting blood sugar 12/01/2018 Emphysema lung ([facility]) 10/23/2023 Essential hypertension, benign 05/12/2006 Ex-smoker [...] () Malignant neoplasm of prostate ([facility]) 03/01/200802/09 PATH: Left Lobe: GS 7 [...] improving. Adama Mendoza MD documented in this encounterClermont County Hospital12-17-2024 NoteAdams County Hospital12-17-2024 Telephone encounter Note* Telephone Encounter - Chavez Plata LPN - 09/20/2024 9:05 AM EST Attempted again to contact pt's . No answer left vm to call office back. Tried home number but it was not a working number. Chavez Plata LPN [facility]12-16-2024 Telephone encounter Note* Telephone Encounter - Mayi Goyal RN - 09/19/2024 12:44 PM EST Pt's Refugio is currently in [facility] and diagnosed with pneumococcal meningitis. Daughter Ailyn [...] is any need for any further vaccines. [facility]12-16-2024 Miscellaneous Notes* Telephone Encounter - Mayi Goyal RN - 09/19/2024 12:44 PM EST Pt's Refugio is currently in [facility] and diagnosed with pneumococcal meningitis. Mikel Robertson [...] for any further vaccines. documented in this encounterClermont County Hospital12-14-2024 Telephone encounter Note * Telephone Encounter - rGicelda Alvarez LPN - 09/17/2024 10:53 AM EST [...] Alvarez LPN September 17, 2024 10:58 AM [facility]12-14-2024 Miscellaneous Notes* Telephone Encounter - Gricelda [...] 17, 2024 10:58 AM documented in this encounterClermont County Hospital12-13-2024 Telephone encounter Note * Telephone Encounter - Chavez Plata LPN - 09/16/2024 2:29 PM EST Left message for pt's to contact office. Chavez Plata LPN [facility]12-13-2024 Telephone encounter Note* Telephone Encounter - Danita Meraz PA-C - 09/16/2024 1:02 PM EST Please clarify. Does patient only need 30 day supply? That's how it was pended. Also, aricept is prescribe by neuro. Danita Meraz PA-C [facility]12-13-2024 Telephone encounter Note* Telephone Encounter - [...] Jaci Salazar September 16, 2024 10:58 AM [facility]12-11-2024 Telephone encounter Note* Telephone Encounter - Salinas Hernandez RN - 09/14/2024 8:23 AM EST Pts called and is notified of providers results. She voices understanding. Salinas Heranndez RN [facility]12-11-2024 Miscellaneous Notes* Telephone Encounter - Salinas Hernandez RN - 09/14/2024 8:23 AM EST Pts called and is notified of providers results. She voices understanding. Salinas Hernandez RN * Telephone Encounter - Adama Mendoza MD - 09/13/2024 8:47 PM EST Let know the hip x-ray shows mild/mod age related arthritis but no acute concerns such as a fracture. documented in this encounterClermont County Hospital12-10-2024 Telephone encounter Note * Telephone Encounter - Adama Mendoza MD - 09/13/2024 8:47 PM EST Let know the hip x-ray shows mild/mod age related arthritis but no acute concerns such as a fracture. [facility]12-09-2024 Telephone encounter Note* Telephone Encounter - [...] Suarez LPN September 12, 2024 9:54 AM [facility]12-09-2024 Miscellaneous Notes* Telephone Encounter - Deann [...] 12, 2024 9:54 AM documented in this encounterClermont County Hospital12-07-2024 History of Present illness Narrative* Jana [...] PATIENT PRESENTS WITH AN IMPLANTABLE OR ATTACHED ORNAMENT STITCHER: No RADIOLOGY DEPARTMENT: General X-ray: Exam(s) Completed: Pelvis X-Ray: Pelvis with Hip Left PERIPHERAL IV DATA: Not applicable SIGNED BY: RT Hector(R) September 10, 2024 9:54 AM documented in this encounterClermont [facility] Hospital12-07-2024 NoteAd[facility]12-[facility]-2024 NoteAdams [facility] Hospital12-07-2024 History of Present illness Narrative* Adama Mendoza [...] aortic aneurysm (AAA) without rupture ([facility]) 11/08/2016 US: 11/2016 2.6 x 2.4 [...] stage 3, GFR 30-59 ml/min ([facility]) 04/11/2024 Dementia without behavioral disturbance ([facility]) 05/15/2016 MMSE: 22 05/2016, MMSE: 06/2019, 23 Elevated fasting blood sugar 12/01/2018 Emphysema lung ([facility]) 10/23/2023 Essential hypertension, benign 05/12/2006 Ex-smoker [...] () Malignant neoplasm of prostate ([facility]) 03/01/200802/09 PATH: Left Lobe: GS 7 [...] improving. Adama Mendoza MD documented in this encounterClermont [facility] Hospital12-05-2024 Telephone encounter Note * Telephone Encounter - Deana Moyer RN - 09/08/2024 4:46 PM EST Pt contacted and given results below. Pt had no further questions at this time.Deana Moyer RN [facility]12-05-2024 Miscellaneous Notes* Telephone Encounter - Deana [...] biopsy results done 08/22/24. documented in this encounterClermont County Hospital12-05-2024 Telephone encounter Note * Telephone Encounter - Rubén Gonzalez MD - 09/08/2024 9:38 AM EST lipoma [facility] Work Phone: [phone] Telephone encounter Note* Telephone Encounter - Eulalia Ugarte MA - 09/06/2024 4:45 PM EST [place] calling and asking for her husbands biopsy results done 08/22/24. [facility]12-02-2024 Telephone encounter Note* Telephone Encounter - [...] 1 tablet by mouth once daily. Judith Vangeas MA September 05, 2024 10:18 AM ] [facility]12-02-2024 Miscellaneous Notes* Telephone Encounter - Judith [...] 05, 2024 9:25 AM documented in this encounterClermont County Hospital12-02-2024 Telephone encounter Note * Telephone Encounter [...] Jaci Salazar September 05, 2024 9:25 AM [facility]11-25-2024 Telephone encounter Note* Telephone Encounter - [...] Suarez LPN August 29, 2024 10:38 AM [facility]11-25-2024 Miscellaneous Notes* Telephone Encounter - Deann [...] 29, 2024 10:38 AM documented in this encounterClermont County Hospital11-18-2024 Instructions* Patient Instructions* Twyla Seaman RN - 08/22/2024 1:36 PM EST The following instructions are important for you related to your office visit today with the [facility] General Surgeons. Instructions After OFFICE BASED BIOPSY [...] you should contact our office immediately @ [phone] and ask to be transferred to the General Surgery department. documented in this encounterClermont County Hospital11-18-2024 NoteAdams County Hospital11-18-2024 History of Present illness Narrative* Twyla Seaman [...] tolerated the procedure well. documented in this encounterClermont County Hospital11-18-2024 NoteAd[facility] Hospital11-12-2024 NoteAd[facility]11-12-2024 History of Present illness Narrative* Tania Cuello LPN - 08/16/2024 2:37 PM EST Patient presents for COVID vaccine. Denies any problems at this time. Tolerated injection well. Tania Cuello LPN documented in this encounterClermont County Hospital11-07-2024 NoteAdams [facility] Hospital11-07-2024 History of Present illness Narrative* Rubén Gonzalez [...] stage 3, GFR 30-59 ml/min ([facility]) 04/11/2024 Dementia without behavioral disturbance ([facility]) 05/15/2016 MMSE: 22 05/2016, MMSE: 06/2019, 23 Elevated fasting blood sugar 12/01/2018 Emphysema lung ([facility]) 10/23/2023 Essential hypertension, benign 05/12/2006 Ex-smoker [...] () Malignant neoplasm of prostate ([facility]) 03/01/200802/09 PATH: Left Lobe: GS 7 ( 3+4) in 1/4 cores Right Lobe : GS 6 ( 3 +) in 3/5 cores External Beam Radiotherapy -- Dr. Rishabh Yao, Renetta Lnadry follow Mixed hyperlipidemia 12/03/2002 Muscle pain, lumbar [...] Rubén Gonzalez III, MD documented in this encounterClermont County Hospital10-28-2024 Telephone encounter Note * Telephone Encounter - Chavez Plata LPN - 08/01/2024 9:04 AM EDT Pt's notified of results and instructions. verbalizes understanding. was assisted intransfer to schedule surgical appointment. Chavez Plata LPN [facility]10-28-2024 Miscellaneous Notes* Telephone Encounter - Chavez [...] biopsy. Danita Meraz PA-C documented in this encounterClermont County Hospital10-28-2024 Telephone encounter Note * Telephone Encounter - Danita Meraz PA-C - 08/01/2024 7:37 AM EDT Let patient's know that the mass on his back has heterogeneous characteristics. Which is not typical with just a lipoma. So we will get surgical consult for further evaluation and possible biopsy. Danita Meraz PA-C [facility]10-23-2024 History of Present illness Narrative* Amanda [...] PATIENT PRESENTS WITH AN IMPLANTABLE OR ATTACHED ORNAMENT STITCHER: No RADIOLOGY DEPARTMENT: Ultrasound PERIPHERAL IV DATA: Not applicable SIGNED BY: Amanda Corea RDMS July 27, 2024 2:07 PM documented in this encounterClermont County Hospital10-23-2024 NoteAdams [facility] Hospital10-23-2024 Telephone encounter Note* Telephone Encounter - Chavez [...] Plata LPN July 27, 2024 12:21 PM [facility]10-23-2024 Miscellaneous Notes* Telephone Encounter - Chavez [...] Thank you. Yolie Sarmiento. documented in this encounterClermont County Hospital10-23-2024 Telephone encounter Note * Telephone Encounter [...] 10/17/2024 Please advise. Thank you. Yolie Sarmiento. [facility]10-17-[facility] History of Present illness Narrative* Danita [...] stage 3, GFR 30-59 ml/min ([facility]) 04/11/2024 Dementia without behavioral disturbance ([facility]) 05/15/2016 MMSE: 22 05/2016, MMSE: 06/2019, 23 Elevated fasting blood sugar 12/01/2018 Emphysema lung ([facility]) 10/23/2023 Essential hypertension, benign 05/12/2006 Ex-smoker [...] () Malignant neoplasm of prostate ([facility]) 03/01/200802/09 PATH: Left Lobe: GS 7 [...] TISSUE Danita Meraz PA-C documented in this encounterClermont County Hospital10-03-2024 Telephone encounter Note * Telephone Encounter - Adama Mendoza MD - 07/07/2024 2:53 PM EDT The following approved medication requests have been transmitted electronically. Requested Prescriptions Signed Prescriptions Disp Refills solifenacin (VESICARE) 5 mg tablet 90 tablet 1 Sig: Take 1 tablet by mouth once daily. Authorizing Provider: ADAMA MENDOZA MD [facility]10-03-2024 Miscellaneous Notes* Telephone Encounter - Adama [...] Thank you. Yolie Sarmiento. documented in this encounterClermont County Hospital10-03-2024 Telephone encounter Note * Telephone Encounter - Chavez Plata LPN - 07/07/2024 2:43 PM EDT Please see below. Chavez Plata LPN [facility]10-03-2024 Telephone encounter Note* Telephone Encounter - [...] 10/17/2024 Please advise. Thank you. Yolie Sarmiento. [facility]09-24-[facility] History of Present illness Narrative* Amanda [...] aortic aneurysm (AAA) without rupture ([facility]) 11/08/2016 US: 11/2016 2.6 x 2.4 [...] stage 3, GFR 30-59 ml/min ([facility]) 04/11/2024 Dementia without behavioral disturbance ([facility]) 05/15/2016 MMSE: 22 05/2016, MMSE: 06/2019, 23 Elevated fasting blood sugar 12/01/2018 Emphysema lung ([facility]) 10/23/2023 Essential hypertension, benign 05/12/2006 Ex-smoker [...] () Malignant neoplasm of prostate ([facility]) 03/01/200802/09 PATH: Left Lobe: GS 7 [...] plan. Amanda Montana PA-C documented in this encounterClermont County Hospital09-18-2024 History of Present illness Narrative* Jelena Lazar APRN.[employer]EL[employer] - 06/22/2024 11:20 AM EDT This is [...] aortic aneurysm (AAA) without rupture ([facility]) 11/08/2016 US: 11/2016 2.6 x 2.4 [...] stage 3, GFR 30-59 ml/min ([facility]) 04/11/2024 Dementia without behavioral disturbance ([facility]) 05/15/2016 MMSE: 22 05/2016, MMSE: 06/2019, [...] 482.9, ICD10: J15.9 - May use Mucinex hakz-ewq-rxvnkos as needed for chest congestion. - May complete chest x-ray in the future if symptoms do not improve or get worse. Patient's verbalizes understanding. - XR CHEST 2V FRONTAL/LAT Follow-up as needed. Discussed treatment plan and patient voices understanding. Patient's questions answered appropriately. Medications and potential side effects were discussed and patient voices understanding. Jelena Lazar APRN.CNP This note was partially generated using mySugr voice recognition system. Note was reviewed for accuracy. There may be minor misspellings or grammar miscues with mySugr voice recognition. documented in this encounterClermont County Hospital09-18-2024 Instructions* Patient Instructions* Jelena Lazar APRN.CNP - 06/22/2024 11:08 AM EDT Continue supportive care at home Stay well hydrated May use mucinex as needed for chest congestion. Any worsening symptoms, increased cough complete chest xray Follow up as needed. documented in this encounterClermont County Hospital09-18-2024 Telephone encounter Note * Telephone Encounter [...] Avis Salazar June 22, 2024 10:18 AM [facility]09-18-2024 Miscellaneous Notes* Telephone Encounter - Avis [...] 22, 2024 10:18 AM documented in this encounterClermont County Hospital09-12-2024 Miscellaneous Notes* Telephone Encounter - Dedra [...] the antibiotic and steroid. documented in this encounterClermont County Hospital09-12-2024 Telephone encounter Note * Telephone Encounter - Dedra Ayala MA - 06/16/2024 9:05 AM EDT Pt notified and voiced understanding. Dedra Ayala MA [facility]09-12-2024 Telephone encounter Note* Telephone Encounter - Adama Mendoza MD - 06/16/2024 8:23 AM EDT Let patient's know his CBC was fine. His Uric acid was ok but in acute gout attacks it can be normal. Cont with the antibiotic and steroid. [facility]09-11-[facility] History of Present illness Narrative* Adama Mendoza MD - 06/15/2024 11:00 AM EDT Chief Complaint Patient presents with: Hospital F/U HPI Lory Johnson is a 79 year old male who presents here today for Hospital Discharge Follow up.. Patient was sent to the [facility] ER for possible UTI and confusion. Patient [...] wandering.. [facility] however he was walking ok on [...] stage 3, GFR 30-59 ml/min ([facility]) 05/15/2016: Dementia without behavioral disturbance ([facility]) Comment: MMSE: 22 05/2016, MMSE: 06/2019, [...] 3/5 cores External Beam Radiotherapy -- Dr. Risahbh Yao, Renetta Landry follow 12/03/2002: Mixed hyperlipidemia [...] week. Adama Mendoza MD documented in this encounterClermont County Hospital09-11-2024 Instructions* Patient Instructions* Jelena Lazar APRN.CNP - 06/15/2024 7:26 AM EDT Get lab completed Start prednisone taper, take with food in the morning. Monitor symptoms at home Watch for increased redness, swelling, or fever/chills. Follow up as needed. documented in this encounterClermont County Hospital09-11-2024 History of Present illness Narrative* Jelena [...] at [facility]. No fever or chills. 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 PAST MEDICAL HISTORY: PAST [...] stage 3, GFR 30-59 ml/min ([facility]) 05/15/2016: Dementia without behavioral disturbance ([facility]) Comment: MMSE: 22 05/2016, MMSE: 06/2019, 23 12/01/2018: Elevated fasting blood sugar 10/23/2023: Emphysema lung ([facility]) 05/12/2006: Essential hypertension, benign 10/31/2016: Ex-smoker [...] 03/01/2008: Malignant neoplasm of prostate ([facility]) Comment: 02/09 PATH: Left Lobe: GS [...] APRN.RACHELLE This note was partially generated using mySugr voice recognition system. Note was reviewed for accuracy. There may be minor misspellings or grammar miscues with mySugr voice recognition. documented in this encounterClermont County Hospital09-11-2024 Telephone encounter Note * Telephone Encounter - Shira Manning RN - 06/15/2024 6:31 AM EDT Reason for call: calling to double check address to appointment location for patient for 6:45 am appointment. States they are at a building in [place] but unsure if it is the correct building. Outcome: Address to [facility] provided. [facility]09-11-2024 Miscellaneous Notes* Telephone Encounter - Shira Manning RN - 06/15/2024 6:31 AM EDT Reason for call: calling to double check address to appointment location for patient for 6:45 am appointment. States they are at a building in [place] but unsure if it is the correct building. Outcome: Address to [facility] provided. documented in this encounterClermont County Hospital09-05-2024 History of Present illness Narrative* Chavez Plata LPN - 06/09/2024 7:01 AM EDT Scan on 06/08/2024 11:11 PM by Provider, Brandie, ISABELLE: Consultation - Emergency Medicine documented in this encounterClermont County Hospital09-04-2024 Telephone encounter Note * Telephone Encounter - Adama Mendoza MD - 06/08/2024 7:27 PM EDT Noted and agree. [facility]09-04-[facility] Miscellaneous Notes* Telephone Encounter - Adama [...] with pcp is 10-17-24. documented in this encounterClermont County Hospital09-04-2024 Telephone encounter Note * Telephone Encounter [...] by this nurse. agreeable. Roula Brown RN [facility]09-04-2024 Telephone encounter Note* Telephone Encounter - [...] Patient's next appt with pcp is 10-17-24. [facility] Tele[facility] Note* Telephone Encounter - Cassia Burt RN - 05/12/2024 2:50 PM EDT Spoke with patient. Given message from provider's office. Patient verbalizes understanding. Cassia Burt RN [facility]08-08-2024 Miscellaneous Notes* Telephone Encounter - Cassia [...] Back to his baseline. documented in this encounterClermont County Hospital08-08-2024 Telephone encounter Note * Telephone Encounter - Dedra Ayala MA - 05/12/2024 2:49 PM EDT Message left for pt to call back for results. Dedra Ayala MA [facility]08-08-2024 Telephone encounter Note* Telephone Encounter - Danita Meraz PA-C - 05/12/2024 2:38 PM EDT Let patient know that kidney function has improved. Back to his baseline. [facility]08-08-[facility] History of Present illness Narrative* Stephany Suarez MD - 05/12/2024 2:15 PM EDT Images from the original note were not included. . [facility] [place] Note Patient name: Lory Johnson PCP: Adama [...] stage 3, GFR 30-59 ml/min ([facility]) 05/15/2016: Dementia without behavioral disturbance ([facility]) Comment: MMSE: 22 05/2016, MMSE: 06/2019, [...] of smoking cessation Stephany Suarez MD [facility] [place] documented in this encounterClermont County Hospital07-31-2024 History of Present illness Narrative* Judith Vanegas MA - 05/04/2024 2:34 PM EDT Scan on 04/28/2024 2:25 PM by Provider, ISABELLE Diego: Consultation - Cardiology Judith Vanegas MA documented in this encounterClermont County Hospital07-08-2024 Instructions* Patient Instructions* Adama Mendoza MD [...] review all the medicines you take, even mkjl-ahp-rbysjss medicines. As you get older, the way [...] have certain medical conditions. documented in this encounterClermont County Hospital07-08-2024 History of Present illness Narrative* Adama [...] Lymph 1.00 - 4.00 k/uL 2.08 2.66 [place]% % 11.3 12.4 Abs [place] <0.87 k/uL 0.96 (H) 1.41 (H) Eosin% [...] Negative Ketones, Urine Negative Negative Negative Specific [place], Ur 1.005 - 1.030 1.024 1.012 Hemoglobin/Blood,Ur [...] which included preparing to see the patient, ugpb-jf-zorj patient care, completing clinical documentation, performing a medically appropriate examination, counseling and educating the patient/family/caregiver and ordering medications, tests, or procedures. Adama Mendoza MD documented in this encounterClermont County Hospital07-02-2024 Telephone encounter Note * Telephone Encounter - Christi Roberts LPN - 04/05/2024 4:56 PM EDT notified with results below and also gave message to pt. They will come in on Thursday and get lab repeated. Christi Roberts LPN [facility]07-02-2024 Miscellaneous Notes* Telephone Encounter - Christi [...] this Thursday. Order placed. documented in this encounterClermont County Hospital07-02-2024 Telephone encounter Note * Telephone Encounter - Judith Vanegas MA - 04/05/2024 4:47 PM EDT Left message for patient's to contact office. Judith Vanegas MA [facility]07-02-2024 Telephone encounter Note* Telephone Encounter - Adama Mendoza MD - 04/05/2024 4:43 PM EDT Let know his one kidney function was high and question if dehydrated. I want him to hydrate well and get a repeat lab this Thursday. Order placed. [facility]07-01-[facility] History of Present illness Narrative* [place], [...] returns. Dandy Faith DPM Podiatry [address] [place] [address] Dept: [phone] Dept * Katt Olivares LPN - 04/04/2024 2:26 PM EDT AMB ROOMING INTAKE FLOWSHEET DATA Patient presents with: Left Foot - Established Patient, Pain Katt Olivares LPN documented in this encounterClermont County Hospital06-24-2024 Telephone encounter Note * Telephone Encounter - Adama Mendoza MD - 03/28/2024 10:27 PM EDT The following approved medication requests have been transmitted electronically. Requested Prescriptions Signed Prescriptions Disp Refills aspirin, enteric coated (ECOTRIN LOW STRENGTH) 81 mg EC tablet 90 tablet 3 Sig: Take 1 tablet by mouth once daily. Authorizing Provider: ADAMA MENDOZA MD [facility]06-24-2024 Miscellaneous Notes* Telephone Encounter - Adama [...] 28, 2024 11:45 AM documented in this encounterClermont County Hospital06-24-2024 Telephone encounter Note * Telephone Encounter [...] tablet by mouth once daily. Brianna Howe [place] March 28, 2024 11:45 AM [facility] Work Phone: [phone]) 233-142106-03-2024 Telephone encounter Note* Telephone Encounter - Adama Mendoza MD - 03/07/2024 11:21 AM EDT The following approved medication requests have been transmitted electronically. Requested Prescriptions Signed Prescriptions Disp Refills pravastatin (PRAVACHOL) 80 mg tablet 90 tablet 1 Sig: Take 1 tablet by mouth once daily. 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 willing to restart please send to jesus Canchola MA * Telephone Encounter - Adama Mendoza MD - 03/07/2024 10:51 AM EDT Let know the last time the pravastatin was filled was 10/12/2023. He had been on the same dose of 80 mg a day since 11/2017. This was to help lesson the risk of a repeat Stroke and [place]. It would be beneficial for him to [...] is willing to travel out side of [place] to see a different [facility] Special Event Assistant she can call and request an appt [...] Thank you, Quyen Garza documented in this encounterClermont County Hospital06-03-2024 Telephone encounter Note * Telephone Encounter - Stephany Canchola MA - 03/07/2024 11:03 AM EDT Spoke to and she honestly doesn't remember why is was stopped may be she thinks he takes to many medications. 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 willing to restart please send to jesus Canchola MA [facility]06-03-2024 Telephone encounter Note* Telephone Encounter - Adama Mendoza MD - 03/07/2024 10:51 AM EDT Let know the last time the pravastatin was filled was 10/12/2023. He had been on the same dose of 80 mg a day since 11/2017. This was to help lesson the risk of a repeat Stroke and [place]. It would be beneficial for him to be back on it if he will take it? [facility] Telephone encounter Note* Telephone Encounter - [...] not to take it. Judith Vanegas MA [facility]05-31-2024 Telephone encounter Note* Telephone Encounter - Adama Mendoza MD - 03/04/2024 5:03 PM EDT Let know there is nothing urgent on the x-ray but if she is willing to travel out side of [place] to see a different [facility] Special Event Assistant she can call and request an appt change. The other option is she can get an appt with one of the local non-[facility] podiatry offices and then let us know with who and when and we can send a consult request to them. Can we also see if she remembers who had Tom stop his cholesterol med, Pravastatin 80 mg a day? [facility]-31-20[facility] Telephone encounter Note* Telephone Encounter - Quyen Garza - 03/04/2024 3:00 PM EDT Patients is concerned about the wait on the podiatry appointment as it out until April 04 for the first available. If they need to be seen sooner please give them a call so they can reschedule theappointment. Thank you, Quyen Braxton [facility]05-31-2024 Telephone encounter Note* Telephone Encounter - Nancy Miller LPN - 03/04/2024 2:37 PM EDT Results were given to pt's spouse Refugio. Refugio & pt are in the building at another appt for pt & will stop at appt desk on their way out to schedule with podiatry. Nancy Miller LPN [facility]05-31-2024 Miscellaneous Notes* Telephone Encounter - Nancy [...] podiatry. Danita Meraz PA-C documented in this encounterClermont County Hospital05-31-2024 Telephone encounter Note * Telephone Encounter - Danita Meraz PA-C - 03/04/2024 2:20 PM EDT Let know that I took a look at his xray. I see heel spurs. Fairly large and may be the cause of his pain. (Spurs causing inflammation of tendons). I am going to put in consult to podiatry. Danita Meraz PA-C [facility]05-31-[facility] History of Present illness Narrative* Jana [...] PATIENT PRESENTS WITH AN IMPLANTABLE OR ATTACHED ORNAMENT STITCHER: No RADIOLOGY DEPARTMENT: General X-ray: Exam(s) Completed: Lower Extremity X- Ray(s): Foot, Left PERIPHERAL IV DATA: Not applicable SIGNED BY: RT Hector(Ángela) March 04, 2024 12:15 PM documented in this encounterClermont County Hospital05-31-2024 History of Present illness Narrative* Danita Meraz PA-C - 03/04/2024 11:58 AM EDT Chief [...] LEFT Danita Meraz PA-C documented in this encounterClermont County Hospital05-31-2024 History of Present illness Narrative* Shaye [...] which included preparing to see the patient, cour-gm-pvhy patient care, completing clinical documentation, obtaining and/or reviewing separately obtained history, performing a medically appropriate examination, counseling and educating the pat ient/family/caregiver, ordering medications, tests, or procedures, and communicating results to thepatient/family/caregiver. documented in this encounterClermont County Hospital04-22-2024 Telephone encounter Note * Telephone Encounter - Shyam SalazarBrianna Andres - 01/25/2024 8:22 AM EDT Pharmacy verified in [facility] Patient has been identified by name and [...] Not applicable Please advise. Brianna Howe Pss [facility]04-22-2024 Miscellaneous Notes* Telephone Encounter - Shyam Salazar Brianna Campos - 01/25/2024 8:22 AM EDT Pharmacy verified in [facility] Patient has been identified by name and [...] advise. Brianna Howe Pss documented in this encounterClermont County Hospital04-19-2024 Instructions* Patient Instructions* Jessica Miramontes PA-C - 01/22/2024 10:33 AM EDT Follow up with primary care provider to discuss statin use Continue with aspirin daily Stay active and increase cognitive activity, increase water intake. Seizure precautions: no bathing alone, no climbing ladders, no swimming alone, no driving Follow up with Dr. Kitchen as planned in February documented in this encounterClermont County Hospital04-19-2024 History of Present illness Narrative* Jessica [...] which included preparing to see the patient, bupu-tr-jtss patient care, completing clinical documentation, obtaining and/or reviewing separately obtained history, performing a medically appropriate examination, and counseling and educating the patient/family/caregiver. This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 [facility] Evaluation note* Diagnosis Onset Date Resolution Status Admit Date Essential (primary) hypertension acute June 23, 2025 1:47pm HLD (hyperlipidemia) acute Jun 1:47pm History of coronary artery stent placement October 07, 2013 resolved Septemb er 2024 1:47pm [facility] Work Phone: Evaluation note* Diagnosis Essential hypertension, benign [facility] Diagnosis Medicare annual wellness visit, subsequent- Primary Routine general medical examination at a health care facility Essential hypertension, benign Mixed hyperlipidemia Elevated fasting blood sugar Impaired fasting glucose GERD without esophagitis Esophageal reflux CAD S/P percutaneous coronary angioplasty Coronary atherosclerosis of [place] coronary artery 3-vessel CAD Coronary atherosclerosis of unspecified type of vessel, [place] or graft Dementia without behavioral disturbance, unspecified [...] unspecified single disease [facility] Diagnosis Skin lump of arm, right- Primary [facility] Diagnosis Skin lump of arm, right [facility]* Diagnosis Gastroesophageal reflux disease with esophagitis without hemorrhage [facility] noteNo assessment information availableWMer[facility] Work Phone: Evaluation note* Diagnosis Essential hypertension, benign [facility] Diagnosis Dislocation of right shoulder joint, initial encounter- Primary [facility] Diagnosis Need for influenza vaccination- Primary Need for prophylactic vaccination and inoculation against influenza [facility] Diagnosis Anterior dislocation of right shoulder, initial encounter- Primary Traumatic tear of right rotator cuff, unspecified tear extent, initial encounter [facility] Diagnosis Anterior dislocation of right shoulder, [...] S/P percutaneous coronary angioplasty Coronary atherosclerosis of [place] coronary artery History of CVA (cerebrovascular accident) [...] cuff, subsequent [facility] Onychomycosis- Primary Dermatophytosis of [...] S/P percutaneous coronary angioplasty Coronary atherosclerosis of [place] coronary artery GERD without esophagitis Esophageal reflux History of CVA (cerebrovascular accident) Transient ischemic attack (TIA), and cerebral infarction without residual deficits Dementia without behavioral disturbance (HCC) Dementia, unspecified, without behavioral disturbance NAIN (obstructive sleep apnea) Obstructive sleep apnea (adult) (pediatric) [facility] Diagnosis Essential hypertension, benign [facility] Diagnosis Urinary incontinence, unspecified type- Primary [facility] Diagnosis COVID-19- Primary Bacterial pneumonia Bacterial pneumonia, unspecified Urinary incontinence, unspecified type Altered mental status, unspecified altered mental status type History of CVA (cerebrovascular accident) Transient ischemic attack (TIA), and cerebral infarction without residual deficits Other specified transient cerebral ischemias [facility] Diagnosis Bacterial pneumonia- Primary Bacterial pneumonia, unspecified Need for vaccination Need for prophylactic vaccination and inoculation against unspecified single disease [facility] Diagnosis Essential hypertension, benign [facility] Diagnosis Dementia without behavioral disturbance (HCC)- Primary Dementia, unspecified, without behavioral disturbance NAIN (obstructive sleep apnea) Obstructive sleep apnea (adult) (pediatric) History of CVA (cerebrovascular accident) Transient ischemic attack (TIA), and cerebral infarction without residual deficits Altered mental status, unspecified altered mental status type Transient cerebral ischemia, unspecified type Seizure (HCC) Other convulsions [facility] Diagnosis Centrilobular emphysema (HCC) Other emphysema [facility] Diagnosis Centrilobular emphysema (HCC) Other emphysema [facility] Diagnosis Transient cerebral ischemia, unspecified type [facility] Diagnosis Transient cerebral ischemia, unspecified type [facility] Diagnosis 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 Other persistent mental disorders due to conditions classified elsewhere Nonspecific abnormal electroencephalogram (EEG) History of CVA (cerebrovascular accident) Transient ischemic attack (TIA), and cerebral infarction without residual deficits Seizure (HCC) Other convulsions Altered mental status, unspecified altered mental status type [facility] Diagnosis Essential hypertension, benign [facility] Pain of left heel- Primary Pain in limb [facility] Diagnosis Pain of left heel- Primary Pain in limb [facility] Diagnosis Dementia without behavioral disturbance (HCC)- Primary Dementia, unspecified, without behavioral disturbance NAIN (obstructive sleep apnea) Obstructive sleep apnea (adult) (pediatric) History of CVA (cerebrovascular accident) Transient ischemic attack (TIA), and cerebral infarction without residual deficits Altered mental status, unspecified altered mental status type Abnormal EEG Nonspecific abnormal electroencephalogram (EEG) [facility] Diagnosis Calcaneal spur of left foot- Primary Calcaneal spur Pain of left heel Pain in limb [facility] Diagnosis Renal insufficiency- Primary Unspecified disorder of kidney and ureter [facility]* Diagnosis Medicare annual wellness visit, subsequent- Primary Routine general medical examination at a health care facility Essential hypertension, benign Mixed hyperlipidemia Elevated fasting blood sugar Impaired fasting glucose GERD without esophagitis Esophageal reflux CAD S/P percutaneous coronary angioplasty Coronary atherosclerosis of [place] coronary artery History of CVA (cerebrovascular accident) Transient ischemic attack (TIA), and cerebral infarction without residual deficits Dementia without behavioral disturbance (HCC) Dementia, unspecified, without behavioral disturbance NAIN (obstructive sleep apnea) Obstructive sleep apnea (adult) (pediatric) Anemia, unspecified type Advance directive discussed with patient Other specified counseling Pulmonary emphysema, unspecified emphysema type ([facility]) Stage 3 chronic kidney disease, unspecified whether stage 3a or 3b CKD ([facility]) [facility]* Diagnosis Moderate COPD (chronic obstructive pulmonary disease) ([facility])- Primary Chronic airway obstruction, not elsewhere classified Asbestosis ([facility]) Former smoker Personal history of tobacco use, presenting hazards to health [facility]* Diagnosis Pain of left heel Pain in limb [facility] Diagnosis Acute gout of right elbow, unspecified cause- Primary [facility]* Diagnosis Bacterial pneumonia- Primary Bacterial pneumonia, unspecified Cellulitis of skin Cellulitis and abscess of unspecified site [facility] Diagnosis COVID-19 Bacterial pneumonia Bacterial pneumonia, unspecified [facility] Diagnosis Cellulitis of skin- Primary Cellulitis and abscess of unspecified site Acute gout of right elbow, unspecified cause Bacterial pneumonia Bacterial pneumonia, unspecified [facility] Diagnosis Pain of finger of left hand- Primary Pain in limb [facility]* Diagnosis Hand injury, right, initial encounter [facility] Diagnosis Hand pain, right Pain in limb [facility] Diagnosis Acute right-sided low back pain without sciatica [facility] Diagnosis Mass of subcutaneous tissue of back- Primary [facility]* Diagnosis Essential hypertension, benign [facility]* Diagnosis Mass of subcutaneous tissue of back [facility]* Diagnosis Seizure (HCC) Other convulsions Altered mental status, unspecified altered mental status type [facility] Diagnosis Mass of subcutaneous tissue of back- Primary [facility]* Diagnosis Encounter for immunization Need for other specified prophylactic vaccination against single bacterial disease [facility] Diagnosis Mass of subcutaneous tissue of back- Primary [facility]* Diagnosis Mass of subcutaneous tissue of back [facility] Diagnosis Left hip pain- Primary Pain in joint, pelvic region and thigh [facility] Diagnosis Cellulitis of skin- Primary Cellulitis and abscess of unspecified site Rash Rash and other nonspecific skin eruption Encounter for immunization Need for other specified prophylactic vaccination against single bacterial disease [facility] Diagnosis Cellulitis of skin- Primary Cellulitis [...] abnormal electroencephalogram (EEG) [facility]* Diagnosis Transient cerebral ischemia, unspecified type [facility]* Diagnosis 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)- Primary [facility]* Diagnosis Dementia without behavioral disturbance (HCC)- Primary Dementia, unspecified, without behavioral disturbance NAIN (obstructive sleep apnea) Obstructive sleep apnea (adult) (pediatric) History of CVA (cerebrovascular accident) Transient ischemic attack (TIA), and cerebral infarction without residual deficits Altered mental status, unspecified altered mental status type Abnormal EEG Nonspecific abnormal electroencephalogram (EEG) Transient cerebral ischemia, unspecified type [facility]* Diagnosis Acute encephalopathy- Primary Encephalopathy, unspecified 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) Dementia with behavioral disturbance (HCC) Dementia, unspecified, with behavioral disturbance Muscular deconditioning Muscular wasting and disuse atrophy, not elsewhere classified Pneumonia of left lower lobe due to infectious organism Decubitus ulcer of left buttock, stage 2 ([facility]) Pressure ulcer, buttock [facility]* Diagnosis Left hip pain Pain in joint, pelvic region and thigh [facility]* Diagnosis Alzheimer's disease (HCC)- Primary Alzheimer's disease [facility]* Diagnosis Bacterial pneumonia- Primary Bacterial pneumonia, unspecified Pressure injury of left buttock, stage 2 (HCC) [facility]* Diagnosis URI, acute- Primary Acute upper respiratory infections of unspecified site [facility]* Diagnosis Onychomycosis- Primary Dermatophytosis of nail Pain in toe of left foot Pain in limb Pain in toe of right foot Pain in limb Left foot pain Pain in limb [facility] Diagnosis Pressure sensation in both ears- Primary [facility]* Diagnosis Severe dementia, unspecified dementia type, unspecified whether behavioral, psychotic, or mood disturbance or anxiety (HCC)- Primary History of CVA (cerebrovascular accident) Transient ischemic attack (TIA), and cerebral infarction without residual deficits Abnormal EEG Nonspecific abnormal electroencephalogram (EEG) NAIN (obstructive sleep apnea) Obstructive sleep apnea (adult) (pediatric) [facility]* Diagnosis Gastroesophageal reflux disease with esophagitis without hemorrhage [facility]* Diagnosis Fall, initial encounter- Primary Right arm pain Pain in limb Acute pain of right shoulder Right hip pain Pain in joint, pelvic region and thigh Fall, initial encounter Right hip pain Pain in joint, pelvic region and thigh Acute pain of right shoulder Right arm pain Pain in limb [facility] Diagnosis Fall, initial encounter Right hip pain Pain in joint, pelvic region and thigh Acute pain of right shoulder Right arm pain Pain in limb [facility]* Diagnosis Essential hypertension, benign [facility]* Diagnosis Medicare annual wellness visit, subsequent- Primary Routine general medical examination at a health care facility Essential hypertension, benign Mixed hyperlipidemia Elevated fasting blood sugar Impaired fasting glucose GERD without esophagitis Esophageal reflux Pulmonary emphysema, unspecified emphysema type (HCC) CAD S/P percutaneous coronary angioplasty Coronary atherosclerosis of [place] coronary artery Stage 3a chronic kidney disease [...] of magnesium metabolism documented in this encounter [facility] note* Diagnosis Vitamin B6 deficiency- Primary documented in this encounter [facility] note* Diagnosis Onychomycosis- Primary Dermatophytosis of nail Pain in toe of left foot Pain in limb Pain in toe of right foot Pain in limb Diminished pulses in lower extremity Other symptoms involving cardiovascular system [facility] Additional Instructions Follow-up with orthopedics in 1 to 2 weeks. Wear sling until cleared by orthopedics. You can take ibuprofen or Tylenol instead of prescription pain medicine ([place]). At the pain is too severe he does have a prescription for [place] which is hydrocodone/acetaminophen. This medicine can increase confusion and does cause constipation. If you do take it take a stool softener or MiraLAX with it.[facility] Work Phone: Hospital Discharge instructions Additional Instructions Plenty of fluids and rest. Follow-up with your doctor if not improving. Return if worse.[facility] Work Phone: Patient's home Plan of care note* Visit Details Visit Type -SN AGENCY DC WO VISIT Discipline -Halfway Problems Problem Description Start Date Status Goals [...] to: caregiver assistance documented in this encounter [facility] for referral (narrative)* Outpatient Procedure (Routine) - Authorized Specialty Diagnoses / Procedures Referred By Opal galloway Referred To [facility] Diagnoses Seizure (HCC) Altered mental status, unspecified altered mental status type Procedures EPIL EEG ROUTINE ELECTROENCEPHALOGRAM REC COMA/SLEEP ONLY Shaye Kitchen Jr., MD [address] [facility] [address] [place] [address] [address] Referral ID Status Reason Start Date Expiration Date Visits Requested Visits Authorized [id number] Authorized Auto-Generat ed Referral 11/20/2023 11/20/2024 1 1 * MRI/CT (Routine) - Authorized Specialty Diagnoses / Procedures Referred By Opal galloway Referred To Contact MR IMAGING Diagnoses Transient cerebral ischemia, unspecified type Procedures MRA CAROTID WO IVCON MRA, NECK; W/O CONTRAST Shaye Kitchen Jr., MD [address] [place] [address] [place] [address] Referral ID Status Reason Start Date Expiration Date Visits Requested Visits Authorized [id number] Authorized Auto-Generat ed Referral 11/20/2023 12/19/2024 1 1 * MRI/CT (Routine) - Authorized Specialty Diagnoses / Procedures Referred By Contac t Referred To Contact MR IMAGING Diagnoses Transient cerebral ischemia, unspecified type Procedures MRA BRAIN WO IVCON MRA, HEAD W/O CONTRAST Shaye Kitchen Jr., MD [address] [facility] [address] [place] [address] [place] [address] Referral ID Status Reason Start Date Expiration Date Visits Requested Visits Authorized [id number] Authorized Auto-Generat ed Referral 11/20/2023 12/19/2024 1 1 * MRI/CT (Routine) - Authorized Specialty Diagnoses / Procedures Referred By Contac t Referred To Contact MR IMAGING Diagnoses Transient cerebral ischemia, unspecified type Procedures MRI BRAIN WO IVCON MRI BRAIN BRAIN STEM W/O CONTRAST MATERIAL Shaye Kitchen Jr., MD [address] [facility] [address] [place] [address] [place] [address] Referral ID Status Reason Start Date Expiration Date Visits Requested Visits Authorized [id number] Authorized Auto-Generat ed Referral 11/20/2023 12/19/2024 1 [facility] Diagnostic Procedure Only (Routine) - Closed Specialty Diagnoses / Procedures Referred By Contac t Referred To Contact XR IMAGING Diagnoses Pain of left heel Procedures XR FOOT GENERAL 3V AP/LAT/OBL LEFT RADEX FOOT COMPLETE MINIMUM 3 VIEWS Danita Meraz PA-C [address] [place] [address] [place] [address] Referral ID Status Reason Start Date Expiration Date V isits Requested Visits Authorized [id number] Closed Auto-Generate d Referral 03/04/2024 04/03/2025 1 1 [facility] for referral (narrative)* Diagnostic Procedure Only (Routine) - Closed Specialty Diagnoses / Procedures Referred By Contac t Referred To Contact XR IMAGING Diagnoses Pain of left heel Procedures XR FOOT GENERAL 3V AP/LAT/OBL LEFT RADEX FOOT COMPLETE MINIMUM 3 VIEWS Danita Meraz PA-C [address] [place] [address] [place] [address] Referral ID Status Reason Start Date Expiration Date V isits Requested Visits Authorized [id number] Closed Auto-Generate d Referral 03/04/2024 04/03/2025 1 1 [facility] for referral (narrative)* Diagnostic Procedure Only (Routine) - New Request Specialty Diagnoses / Procedures Referred By Contac t Referred To Contact XR IMAGING Diagnoses Pain of finger of left hand Procedures XR DIGIT GENERAL 3V FRONTAL/LAT/OBL LEFT RADEX FINGR MINIMUM 2 VIEWS Amanda Montana PA-C [address] [place], [place] [id number] [place] [address] Referral ID Status Reason Start Date Expiration Date Visits Requested Visits Authorized [id number] New Request Auto-Generat ed Referral 06/28/2024 07/28/2025 1 1 [facility] for referral (narrative)* Diagnostic Procedure Only (Urgent) - Closed Specialty Diagnoses / Procedures Referred By Contac t Referred To Contact XR IMAGING Diagnoses Hand injury, right, initial encounter Procedures XR HAND GENERAL 3V PA/LAT/OBL RT X-RAY HAND MINIMUM 3 VIEWS Adama Colón APRN.MICROSOFT DEVELOPER [address] [place] [address] [place] [address] Referral ID Status Reason Start Date Expiration Date V isits Requested Visits Authorized [id number] Closed Auto-Generate d Referral 05/18/2021 06/17/2022 1 1 [facility] for referral (narrative)* Diagnostic Procedure Only (Routine) - Closed Specialty Diagnoses / Procedures Referred By Contac t Referred To Contact XR IMAGING Diagnoses Hand pain, right Procedures XR HAND GENERAL 3V PA/LAT/OBL RT X-RAY HAND MINIMUM 3 VIEWS Adama Mendoza MD [address] [place] [address] [place] [address] Referral ID Status Reason Start Date Expiration Date V isits Requested Visits Authorized [id number] Closed Auto-Generate d Referral 06/19/2021 07/19/2022 1 1 [facility] for referral (narrative)* Diagnostic Procedure Only (Routine) - Authorized Specialty Diagnoses / Procedures Referred By Contac t Referred To Contact US IMAGING Diagnoses Mass of subcutaneous tissue of back Procedures US CHEST WALL/SOFT TISSUE US CHEST REAL TIME W/IMAGE DOCUMENTATION Danita Meraz PA-C [address] [place] [address] [place] [address] Referral ID Status Reason Start Date Expiration Date Visits Requested Visits Authorized [id number] Authorized Auto-Generat ed Referral 08/20/2025 1 1 [facility] for referral (narrative)No reason for referral information available[facility] Work Phone: Reason for visit Narrative* Diagnostic Procedure Only (Routine) - Closed Specialty Diagnoses / Procedures Referred By Contac t Referred To Contact XR IMAGING Diagnoses Pain of left heel Procedures XR FOOT GENERAL 3V AP/LAT/OBL LEFT RADEX FOOT COMPLETE MINIMUM 3 VIEWS Danita Meraz PA-C [address] [place] [address] [place] [address] Referral ID Status Reason Start Date Expiration Date V isits Requested Visits Authorized [id number] Closed Auto-Generate d Referral 03/04/2024 04/03/2025 1 1 [facility] for visit Narrative* Diagnostic Procedure Only (Urgent) - Closed Specialty Diagnoses / Procedures Referred By Contac t Referred To Contact XR IMAGING Diagnoses Hand injury, right, initial encounter Procedures XR HAND GENERAL 3V PA/LAT/OBL RT X-RAY HAND MINIMUM 3 VIEWS Adama Colón APRN.MICROSOFT DEVELOPER [address] [place] [address] X[facility] Imaging [facility] Referral ID Status Reason Start Date Expiration Date V isits Requested Visits Authorized [id number] Closed Auto-Generate d Referral 05/18/2021 06/17/2022 1 1 [facility] for visit Narrative* Diagnostic Procedure Only (Routine) - Closed Specialty Diagnoses / Procedures Referred By Contac t Referred To Contact XR IMAGING Diagnoses Hand pain, right Procedures XR HAND GENERAL 3V PA/LAT/OBL RT X-RAY HAND MINIMUM 3 VIEWS Adama Mendoza MD [address] [place] [address] [facility] [place] [address] Referral ID Status Reason Start Date Expiration Date V isits Requested Visits Authorized [id number] Closed Auto-Generate d Referral 06/19/2021 07/19/2022 1 1 [facility] for visit Narrative* Outpatient Procedure (Routine) - Closed Specialty Diagnoses / Procedures Referred By Contac t Referred To Contact [facility] Diagnoses Seizure (HCC) Altered mental status, unspecified altered mental status type Procedures EPIL EEG ROUTINE ELECTROENCEPHALOGRAM REC COMA/SLEEP ONLY Shaye Kitchen Jr., MD [address] [address] [facility] [place] [address] [place] [id number] Referral ID Status Reason Start Date Expiration Date V isits Requested Visits Authorized [id number] Closed Auto-Generate d Referral 11/20/2023 11/20/2024 1 1 [facility] for visit Narrative* Diagnostic Procedure Only (Routine) - Closed Specialty Diagnoses / Procedures Referred By Contac t Referred To Contact XR IMAGING Diagnoses Left hip pain Procedures XR HIP GENERAL 3V PELV/AP/LAT LEFT RADEX HIP UNILATERAL WITH PELVIS 2-3 VIEWS Adama Mendoza MD [address] [place] [address] [place] [address] Referral ID Status Reason Start Date Expiration Date V isits Requested Visits Authorized [id number] Closed Auto-Generate d Referral 09/10/2024 10/10/2025 1 1 [facility] for visit Narrative* Diagnostic Procedure Only (Urgent) - Closed Specialty Diagnoses / Procedures Referred By Contac t Referred To Contact XR IMAGING Diagnoses Fall, initial encounter Right arm pain Procedures XR WRIST GENERAL 3V PA/LAT/OBL RIGHT RADEX WRIST COMPLETE MINIMUM 3 VIEWS Claude Cardenas APRN.CNP [address] [place] [address] Phone: tel: fax: [place] [address] Referral ID Status Reason Start Date Expiration Date V isits Requested Visits Authorized [id number] Closed Auto-Generate d Referral 01/09/2025 02/08/2026 1 1 [facility] Summary Purpose Family History No Family History Records Found Relationship Condition Age at Onset Recorded Date/T zeke sister Coronary artery disease Unknown mother Coronary artery disease Unknown father Malignant neoplasm of colon Unknown brother Coronary artery disease Unknown Advance Directives No Advanced Directives Records FoundDocuments on File Type Date Recorded Patient [place] Expl anation Advance Directive(s) 07/28/2018 6:25 AM Date Activated Date Inactivated Comments 10/15/2024 5:22 PM 10/20/2024 6:32 PM Question Answer Comments Full Code Order Discussed With: Surrogate Decisi on Maker Surrogate Decision Maker Name: Son Surrogate Decision Maker Relationship: M ajority of Adult Children (admissions representative) Documents on File Type Date Recorded Patient [place] Expl anation Advance Directive(s) Advance Directive(s) 08/10/2020 12:16 PM Advance Directive(s) 07/28/2018 6:25 AM S canned [id number] Advance Directive(s) 07/28/2018 9:30 AM Advance Directive(s) 07/28/2018 6:25 AM Documents on File Type Date Recorded Patient [place] Expl anation Advance Directive(s) Advance Directive(s) 08/10/2020 12:16 PM Advance Directive(s) 07/28/2018 6:25 AM S canned [id number] Advance Directive(s) 07/28/2018 9:30 AM Advance Directive(s) 07/28/2018 6:25 AM Advance Directive Response Recorded Date/ Time Advance Directives Yes October 15, 2020 8:02am Living Will Yes July 24 4:16pm Power of Ticker Wirer Yes July 24, 2022 4:16pm Name of Medical Power of Ticker Wirer sonjeff July 24, 2022 4:16p m Documents on File Type Date Recorded Patient [place] Expl anation Advance Directive(s) 07/28/2018 6:25 AM Advance Directive Response Recorded Date/ Time Advance Directives Yes October 15, 2020 8:02am Living Will Yes June 17, 2023 1:35pm Power of Ticker Wirer Yes June 1:35pm Name of Medical Power of Ticker Wirer REFUGIO HACKWOR TH June 17, 2023 1:35pm Advance Directive Response Recorded Date/ Time Name of Medical Power of Ticker Wirer REFUGIO HACKWOR TH June 17, 2023 12:35pm Name of Medical Power of Ticker Wirer refugio hackwor th September 26, 2023 11:03am Advance Directives Yes October 15, 2020 7:02am Living Will Yes September 26, 11:03am Power of Ticker Wirer Yes September 26, 2023 11:03am Date Activated Date Inactivated Comments 10/22/2024 11:10 PM Date Activated Date Inactivated Comments 10/15/2024 5:22 PM 10/20/2024 6:32 PM Question Answer Comments Full Code Order Discussed With: Surrogate Decisi on Maker Surrogate Decision Maker Name: Son Surrogate Decision Maker Relationship: M ajority of Adult Children (admissions representative) Date Activated Date Inactivated Comments 10/22/2024 11:10 PM 11/13/2024 10:39 AM Date Activated Date Inactivated Comments 10/22/2024 11:10 PM 11/13/2024 10:39 AM Date Activated Date Inactivated Comments 10/15/2024 5:22 PM 10/20/2024 6:32 PM Question Answer Comments Full Code Order Discussed With: Surrogate Decisi on Maker Surrogate Decision Maker Name: Son Surrogate Decision Maker Relationship: M ajority of Adult Children (admissions representative) Advance Directive Response Recorded Date/ Time Living Will Yes September 26 12:03pm Do you have a Healthcare Power of Ticker Wirer? Yes September 26, 2023 12:03pm Advance Directives Yes October 15, 2020 8:02am Reason for Referral Specialty Diagnoses / Procedures Referred By Contac t Referred To Contact General Surgery Diagnoses Skin lump of arm, right Procedures CONSULT TO GENERAL SURGERY OFFICE/OUTPATIENT [facility] 60-74 MINUTES Danita Meraz PA-C [address] [place] [address] Referral ID Status Reason Start Date Expiration Date Visits Requested Visits Authorized [id number] Authorized PCP Requested Referral 04/02/2022 04/02/2023 1 1 Specialty Diagnoses / Procedures Referred By Contac t Referred To Contact Orthopedics Diagnoses Dislocation of right shoulder joint, initial encounter Procedures CONSULT TO ORTHOPAEDICS OFFICE/OUTPATIENT [facility] 60-74 MINUTES Adama Mendoza MD [address] [place] [address] Referral ID Status Reason Start Date Expiration Date Visits Requested Visits Authorized [id number] Authorized PCP Requested Referral 2 07/28/2023 1 1 Specialty Diagnoses / Procedures Referred By Contac t Referred To Contact [facility] Diagnoses Anterior dislocation of right shoulder, subsequent encounter 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, subsequent encounter Procedures CONSULT TO PHYSICAL THERAPY PHYSICAL THERAPY EVALUATION HIGH COMPLEX 45 MINS Robert Combs MD [address] [place] [address] [facility] [place] [address] [place] [address] Referral ID Status Reason Start Date Expiration Date Visits Requested Visits Authorized [id number] Authorized PCP Requested Referral Auto-Generate d Referral 10/27/2022 10/27/2023 99 99 Specialty Diagnoses / Procedures Referred By Contac t Referred To Contact MR IMAGING Diagnoses Urinary incontinence, unspecified type Altered mental status, unspecified altered mental status type History of CVA (cerebrovascular accident) Other specified transient cerebral ischemias Procedures MRI BRAIN WO IVCON MRI BRAIN BRAIN STEM W/O CONTRAST MATERIAL Adama Mendoza MD [address] [place] [address] [place] [address] Referral ID Status Reason Start Date Expiration Date Visits Requested Visits Authorized [id number] Pending Review Auto-Generat ed Referral 06/23/2023 07/22/2024 1 1 Specialty Diagnoses / Procedures Referred By Contac t Referred To Contact MR IMAGING Diagnoses Transient cerebral ischemia, unspecified type Procedures MRI BRAIN WO IVCON MRI BRAIN BRAIN STEM W/O CONTRAST MATERIAL Shaye Kitchen Jr., MD [address] [facility] [address] [place] [address] [place] [address] Referral ID Status Reason Start Date Expiration Date V isits Requested Visits Authorized [id number] Closed Auto-Generate d Referral 11/20/2023 12/19/2024 1 1 Specialty Diagnoses / Procedures Referred By Contac t Referred To Contact MR IMAGING Diagnoses Transient cerebral ischemia, unspecified type Procedures MRA BRAIN WO IVCON MRA, HEAD W/O CONTRAST Shaye Kitchen Jr., MD [facility] [address] [place] [address] [place] [address] Referral ID Status Reason Start Date Expiration Date V isits Requested Visits Authorized [id number] Closed Auto-Generate d Referral 11/20/2023 12/19/2024 1 1 Specialty Diagnoses / Procedures Referred By Contac t Referred To Contact MR IMAGING Diagnoses Transient cerebral ischemia, unspecified type Procedures MRA CAROTID WO IVCON MRA, NECK; W/O CONTRAST Shaye Kitchen Jr., MD [facility] [address] [place] [address] [place] [address] Referral ID Status Reason Start Date Expiration Date V isits Requested Visits Authorized [id number] Closed Auto-Generate d Referral 11/20/2023 12/19/2024 1 1 Specialty Diagnoses / Procedures Referred By Contac t Referred To Contact Podiatry Diagnoses Pain of left heel Procedures CONSULT TO PODIATRY OFFICE/OUTPATIENT [facility] MDM 60 MINUTES Danita Meraz PA-C [address] [place] [address] Referral ID Status Reason Start Date Expiration Date Visits Requested Visits Authorized [id number] Authorized PCP Requested Referral 03/04/2024 03/04/2025 1 1 Specialty Diagnoses / Procedures Referred By Contac t Referred To Contact General Surgery Diagnoses Mass of subcutaneous tissue of back Procedures CONSULT TO GENERAL SURGERY OFFICE/OUTPATIENT [facility] MDM 60 MINUTES Danita Meraz PA-C [address] [place] [address] Referral ID Status Reason Start Date Expiration Date Visits Requested Visits Authorized [id number] Authorized PCP Requested Referral 08/01/2025 1 1 Specialty Diagnoses / Procedures Referred By Contac t Referred To Contact [facility] Diagnoses Left hip pain Procedures CONSULT TO PHYSICAL THERAPY PHYSICAL THERAPY EVALUATION HIGH COMPLEX 45 MINS Adama Mendzoa MD [address] [place] [address] [facility] [place] [address] [place] [address] Referral ID Status Reason Start Date Expiration Date Visits Requested Visits Authorized [id number] Authorized PCP Requested Referral Auto-Generate d Referral 09/10/2024 09/10/2025 99 99 Specialty Diagnoses / Procedures Referred By Contac t Referred To Contact XR IMAGING Diagnoses Left hip pain Procedures XR HIP GENERAL 3V PELV/AP/LAT LEFT RADEX HIP UNILATERAL WITH PELVIS 2-3 VIEWS Adama Mendoza MD [address] [place] [address] [place] [address] Referral ID Status Reason Start Date Expiration Date V isits Requested Visits Authorized [id number] Closed Auto-Generate d Referral 09/10/2024 10/10/2025 1 1 Specialty Diagnoses / Procedures Referred By Contac t Referred To Contact MR IMAGING Diagnoses Transient cerebral ischemia, unspecified type Procedures MRI BRAIN WO IVCON MRI BRAIN BRAIN STEM W/O CONTRAST MATERIAL Margaret Ardon, USER SUPPORT ANALYST SUPERVISOR.MICROSOFT DEVELOPER [address] [place] [address] [place] [address] Referral ID Status Reason Start Date Expiration Date Visits Requested Visits Authorized [id number] Authorized Auto-Generat ed Referral 10/14/2024 11/13/2025 1 1 Specialty Diagnoses / Procedures Referred By Contac t Referred To Contact [facility] [place] [place] Diagnoses Transient cerebral ischemia, unspecified type Procedures ECG COMPLETE ECG ROUTINE ECG W/LEAST 12 LDS W/I&R Margaret Ardon, USER SUPPORT ANALYST SUPERVISOR.MICROSOFT DEVELOPER [address] [place] [address] [facility] [address] [place] [address] Referral ID Status Reason Start Date Expiration Date V isits Requested Visits Authorized [id number] Closed Auto-Generate d Referral 10/14/2024 10/14/2025 1 1 Chief Complaint and Reason for Visit Chief Complaint fall Chief Complaint CONFUSION Chief Complaint CONFUSION Altered mental status, unspecified alt loc Chief Complaint Admit Date 1 y 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 MANAGER MULTICULTURAL June 23 1:47pm Reason for Visit Admit [...] section and content) DATE CREATED AUTHOR 03/29/2018 [facility] DATE CREATED AUTHOR AUTHOR'S ORGANIZ ATION 03/29/2018 [facility] DATE CREATED AUTHOR AUTHOR'S ORGANIZ ATION 03/30/2018 [facility] DATE CREATED AUTHOR AUTHOR'S ORGANIZ ATION 08/18/2019 [facility] DATE CREATED AUTHOR AUTHOR'S ORGANIZ ATION 10/23/2024 [facility] DATE CREATED AUTHOR AUTHOR'S ORGANIZ ATION 06/24/2025 [facility] DATE CREATED AUTHOR AUTHOR'S ORGANCLARA ATION 07/21/2025 [facility] Source Comments (unrecognize d section and content) In the event this informatio n is protected by the Federal Confidentiality of Alcohol and Drug Abuse Patient Records regulations: The Federal rules restrict any use of the information to criminally investigate or prosecute any alcohol or drug abuse patient.[facility] the event this information is protected by the Federal Confidentiality of Alcohol and Drug Abuse Patient Records regulations: The Federal rules restrict any use of the information to criminally investigate or prosecute any alcohol or drug abuse patient.[facility] the event this information is protected by the Federal Confidentiality of Alcohol and Drug Abuse Patient Records regulations: The Federal rules restrict any use of the information to criminally investigate or prosecute any alcohol or drug abuse patient.[facility]In the event this information is protected by the Federal Confidentiality of Alcohol and Drug Abuse Patient Records regulations: The Federal rules restrict any use of the information to criminally investigate or prosecute any alcohol or drug abuse patient.[facility] the event this information is protected by the Federal Confidentiality of Alcohol and Drug Abuse Patient Records regulations: The Federal rules restrict any use of the information to criminally investigate or prosecute any alcohol or drug abuse patient.[facility] the event this information is protected by the Federal Confidentiality of Alcohol and Drug Abuse Patient Records regulations: The Federal rules restrict any use of the information to criminally investigate or prosecute any alcohol or drug abuse patient.[facility] the event this information is protected by the Federal Confidentiality of Alcohol and Drug Abuse Patient Records regulations: The Federal rules restrict any use of the information to criminally investigate or prosecute any alcohol or drug abuse patient.[facility] the event this information is protected by the Federal Confidentiality of Alcohol and Drug Abuse Patient Records regulations: The Federal rules restrict any use of the information to criminally investigate or prosecute any alcohol or drug abuse patient.[facility] the event this information is protected by the Federal Confidentiality of Alcohol and Drug Abuse Patient Records regulations: The Federal rules restrict any use of the information to criminally investigate or prosecute any alcohol or drug abuse patient.[facility] the event this information is protected by the Federal Confidentiality of Alcohol and Drug Abuse Patient Records regulations: The Federal rules restrict any use of the information to criminally investigate or prosecute any alcohol or drug abuse patient.[facility] the event this information is protected by the Federal Confidentiality of Alcohol and Drug Abuse Patient Records regulations: The Federal rules restrict any use of the information to criminally investigate or prosecute any alcohol or drug abuse patient.[facility] the event this information is protected by the Federal Confidentiality of Alcohol and Drug Abuse Patient Records regulations: The Federal rules restrict any use of the information to criminally investigate or prosecute any alcohol or drug abuse patient.[facility] the event this information is protected by the Federal Confidentiality of Alcohol and Drug Abuse Patient Records regulations: The Federal rules restrict any use of the information to criminally investigate or prosecute any alcohol or drug abuse patient.[facility] the event this information is protected by the Federal Confidentiality of Alcohol and Drug Abuse Patient Records regulations: The Federal rules restrict any use of the information to criminally investigate or prosecute any alcohol or drug abuse patient.[facility] the event this information is protected by the Federal Confidentiality of Alcohol and Drug Abuse Patient Records regulations: The Federal rules restrict any use of the information to criminally investigate or prosecute any alcohol or drug abuse patient.[facility] the event this information is protected by the Federal Confidentiality of Alcohol and Drug Abuse Patient Records regulations: The Federal rules restrict any use of the information to criminally investigate or prosecute any alcohol or drug abuse patient.[facility] the event this information is protected by the Federal Confidentiality of Alcohol and Drug Abuse Patient Records regulations: The Federal rules restrict any use of the information to criminally investigate or prosecute any alcohol or drug abuse patient.[facility] the event this information is protected by the Federal Confidentiality of Alcohol and Drug Abuse Patient Records regulations: The Federal rules restrict any use of the information to criminally investigate or prosecute any alcohol or drug abuse patient.[facility] HospitalIn the event this information is protected [...] or prosecute any alcohol or drug abuse patient.[facility] HospitalIn the event this information is protected by the Federal Confidentiality of Alcohol and Drug Abuse Patient Records regulations: The Federal rules restrict any use of the information to criminally investigate or prosecute any alcohol or drug abuse patient.[facility] the event this information is protected by the Federal Confidentiality of Alcohol and Drug Abuse Patient Records regulations: The Federal rules restrict any use of the information to criminally investigate or prosecute any alcohol or drug abuse patient.[facility] HospitalIn the event this information is protected by the Federal Confidentiality of Alcohol and Drug Abuse Patient Records regulations: The Federal rules restrict any use of the information to criminally investigate or prosecute any alcohol or drug abuse patient.[facility] HospitalIn the event this information is protected by the Federal Confidentiality of Alcohol and Drug Abuse Patient Records regulations: The Federal rules restrict any use of the information to criminally investigate or prosecute any alcohol or drug abuse patient.[facility]In the event this information is protected by the Federal Confidentiality of Alcohol and Drug Abuse Patient Records regulations: The Federal rules restrict any use of the information to criminally investigate or prosecute any alcohol or drug abuse patient.[facility] the event this information is protected by the Federal Confidentiality of Alcohol and Drug Abuse Patient Records regulations: The Federal rules restrict any use of the information to criminally investigate or prosecute any alcohol or drug abuse patient.[facility]In the event this information is protected by the Federal Confidentiality of Alcohol and Drug Abuse Patient Records regulations: The Federal rules restrict any use of the information to criminally investigate or prosecute any alcohol or drug abuse patient.[facility]In the event this information is protected by the Federal Confidentiality of Alcohol and Drug Abuse Patient Records regulations: The Federal rules restrict any use of the information to criminally investigate or prosecute any alcohol or drug abuse patient.[facility]In the event this information is protected by the Federal Confidentiality of Alcohol and Drug Abuse Patient Records regulations: The Federal rules restrict any use of the information to criminally investigate or prosecute any alcohol or drug abuse patient.[facility] HospitalIn the event this information is protected by the Federal Confidentiality of Alcohol and Drug Abuse Patient Records regulations: The Federal rules restrict any use of the information to criminally investigate or prosecute any alcohol or drug abuse patient.[facility]In the event this information is protected by the Federal Confidentiality of Alcohol and Drug Abuse Patient Records regulations: The Federal rules restrict any use of the information to criminally investigate or prosecute any alcohol or drug abuse patient.[facility]In the event this information is protected by the Federal Confidentiality of Alcohol and Drug Abuse Patient Records regulations: The Federal rules restrict any use of the information to criminally investigate or prosecute any alcohol or drug abuse patient.[facility]In the event this information is protected by the Federal Confidentiality of Alcohol and Drug Abuse Patient Records regulations: The Federal rules restrict any use of the information to criminally investigate or prosecute any alcohol or drug abuse patient.[facility]In the event this information is protected by the Federal Confidentiality of Alcohol and Drug Abuse Patient Records regulations: The Federal rules restrict any use of the information to criminally investigate or prosecute any alcohol or drug abuse patient.[facility]In the event this information is protected by the Federal Confidentiality of Alcohol and Drug Abuse Patient Records regulations: The Federal rules restrict any use of the information to criminally investigate or prosecute any alcohol or drug abuse patient.[facility]In the event this information is protected by the Federal Confidentiality of Alcohol and Drug Abuse Patient Records regulations: The Federal rules restrict any use of the information to criminally investigate or prosecute any alcohol or drug abuse patient.[facility]In the event this information is protected by the Federal Confidentiality of Alcohol and Drug Abuse Patient Records regulations: The Federal rules restrict any use of the information to criminally investigate or prosecute any alcohol or drug abuse patient.[facility]In the event this information is protected by the Federal Confidentiality of Alcohol and Drug Abuse Patient Records regulations: The Federal rules restrict any use of the information to criminally investigate or prosecute any alcohol or drug abuse patient.[facility]In the event this information is protected by the Federal Confidentiality of Alcohol and Drug Abuse Patient Records regulations: The Federal rules restrict any use of the information to criminally investigate or prosecute any alcohol or drug abuse patient.[facility]In the event this information is protected by the Federal Confidentiality of Alcohol and Drug Abuse Patient Records regulations: The Federal rules restrict any use of the information to criminally investigate or prosecute any alcohol or drug abuse patient.[facility]In the event this information is protected by the Federal Confidentiality of Alcohol and Drug Abuse Patient Records regulations: The Federal rules restrict any use of the information to criminally investigate or prosecute any alcohol or drug abuse patient.[facility]In the event this information is protected by the Federal Confidentiality of Alcohol and Drug Abuse Patient Records regulations: The Federal rules restrict any use of the information to criminally investigate or prosecute any alcohol or drug abuse patient.[facility]In the event this information is protected by the Federal Confidentiality of Alcohol and Drug Abuse Patient Records regulations: The Federal rules restrict any use of the information to criminally investigate or prosecute any alcohol or drug abuse patient.[facility]In the event this information is protected by the Federal Confidentiality of Alcohol and Drug Abuse Patient Records regulations: The Federal rules restrict any use of the information to criminally investigate or prosecute any alcohol or drug abuse patient.[facility]In the event this information is protected by the Federal Confidentiality of Alcohol and Drug Abuse Patient Records regulations: The Federal rules restrict any use of the information to criminally investigate or prosecute any alcohol or drug abuse patient.[facility]In the event this information is protected by the Federal Confidentiality of Alcohol and Drug Abuse Patient Records regulations: The Federal rules restrict any use of the information to criminally investigate or prosecute any alcohol or drug abuse patient.[facility]In the event this information is protected by the Federal Confidentiality of Alcohol and Drug Abuse Patient Records regulations: The Federal rules restrict any use of the information to criminally investigate or prosecute any alcohol or drug abuse patient.[facility]In the event this information is protected by the Federal Confidentiality of Alcohol and Drug Abuse Patient Records regulations: The Federal rules restrict any use of the information to criminally investigate or prosecute any alcohol or drug abuse patient.[facility]In the event this information is protected by the Federal Confidentiality of Alcohol and Drug Abuse Patient Records regulations: The Federal rules restrict any use of the information to criminally investigate or prosecute any alcohol or drug abuse patient.[facility]In the event this information is protected by the Federal Confidentiality of Alcohol and Drug Abuse Patient Records regulations: The Federal rules restrict any use of the information to criminally investigate or prosecute any alcohol or drug abuse patient.[facility]In the event this information is protected by the Federal Confidentiality of Alcohol and Drug Abuse Patient Records regulations: The Federal rules restrict any use of the information to criminally investigate or prosecute any alcohol or drug abuse patient.[facility]In the event this information is protected by the Federal Confidentiality of Alcohol and Drug Abuse Patient Records regulations: The Federal rules restrict any use of the information to criminally investigate or prosecute any alcohol or drug abuse patient.[facility]In the event this information is protected by the Federal Confidentiality of Alcohol and Drug Abuse Patient Records regulations: The Federal rules restrict any use of the information to criminally investigate or prosecute any alcohol or drug abuse patient.[facility]In the event this information is protected by the Federal Confidentiality of Alcohol and Drug Abuse Patient Records regulations: The Federal rules restrict any use of the information to criminally investigate or prosecute any alcohol or drug abuse patient.[facility]In the event this information is protected by the Federal Confidentiality of Alcohol and Drug Abuse Patient Records regulations: The Federal rules restrict any use of the information to criminally investigate or prosecute any alcohol or drug abuse patient.[facility]In the event this information is protected by the Federal Confidentiality of Alcohol and Drug Abuse Patient Records regulations: The Federal rules restrict any use of the information to criminally investigate or prosecute any alcohol or drug abuse patient.[facility]In the event this information is protected by the Federal Confidentiality of Alcohol and Drug Abuse Patient Records regulations: The Federal rules restrict any use of the information to criminally investigate or prosecute any alcohol or drug abuse patient.[facility]In the event this information is protected by the Federal Confidentiality of Alcohol and Drug Abuse Patient Records regulations: The Federal rules restrict any use of the information to criminally investigate or prosecute any alcohol or drug abuse patient.[facility]In the event this information is protected by the Federal Confidentiality of Alcohol and Drug Abuse Patient Records regulations: The Federal rules restrict any use of the information to criminally investigate or prosecute any alcohol or drug abuse patient.[facility]In the event this information is protected by the Federal Confidentiality of Alcohol and Drug Abuse Patient Records regulations: The Federal rules restrict any use of the information to criminally investigate or prosecute any alcohol or drug abuse patient.[facility]In the event this information is protected by the Federal Confidentiality of Alcohol and Drug Abuse Patient Records regulations: The Federal rules restrict any use of the information to criminally investigate or prosecute any alcohol or drug abuse patient.[facility]In the event this information is protected by the Federal Confidentiality of Alcohol and Drug Abuse Patient Records regulations: The Federal rules restrict any use of the information to criminally investigate or prosecute any alcohol or drug abuse patient.[facility]In the event this information is protected by the Federal Confidentiality of Alcohol and Drug Abuse Patient Records regulations: The Federal rules restrict any use of the information to criminally investigate or prosecute any alcohol or drug abuse patient.[facility]In the event this information is protected by the Federal Confidentiality of Alcohol and Drug Abuse Patient Records regulations: The Federal rules restrict any use of the information to criminally investigate or prosecute any alcohol or drug abuse patient.[facility]In the event this information is protected by the Federal Confidentiality of Alcohol and Drug Abuse Patient Records regulations: The Federal rules restrict any use of the information to criminally investigate or prosecute any alcohol or drug abuse patient.[facility]In the event this information is protected by the Federal Confidentiality of Alcohol and Drug Abuse Patient Records regulations: The Federal rules restrict any use of the information to criminally investigate or prosecute any alcohol or drug abuse patient.[facility]In the event this information is protected by the Federal Confidentiality of Alcohol and Drug Abuse Patient Records regulations: The Federal rules restrict any use of the information to criminally investigate or prosecute any alcohol or drug abuse patient.[facility]In the event this information is protected by the Federal Confidentiality of Alcohol and Drug Abuse Patient Records regulations: The Federal rules restrict any use of the information to criminally investigate or prosecute any alcohol or drug abuse patient.[facility] HospitalIn the event this information is protected [...] or prosecute any alcohol or drug abuse patient.[facility] HospitalIn the event this information is protected by the Federal Confidentiality of Alcohol and Drug Abuse Patient Records regulations: The Federal rules restrict any use of the information to criminally investigate or prosecute any alcohol or drug abuse patient.[facility]In the event this information is protected by the Federal Confidentiality of Alcohol and Drug Abuse Patient Records regulations: The Federal rules restrict any use of the information to criminally investigate or prosecute any alcohol or drug abuse patient.[facility]In the event this information is protected by the Federal Confidentiality of Alcohol and Drug Abuse Patient Records regulations: The Federal rules restrict any use of the information to criminally investigate or prosecute any alcohol or drug abuse patient.[facility]In the event this information is protected by the Federal Confidentiality of Alcohol and Drug Abuse Patient Records regulations: The Federal rules restrict any use of the information to criminally investigate or prosecute any alcohol or drug abuse patient.[facility]In the event this information is protected by the Federal Confidentiality of Alcohol and Drug Abuse Patient Records regulations: The Federal rules restrict any use of the information to criminally investigate or prosecute any alcohol or drug abuse patient.[facility]In the event this information is protected by the Federal Confidentiality of Alcohol and Drug Abuse Patient Records regulations: The Federal rules restrict any use of the information to criminally investigate or prosecute any alcohol or drug abuse patient.[facility]In the event this information is protected by the Federal Confidentiality of Alcohol and Drug Abuse Patient Records regulations: The Federal rules restrict any use of the information to criminally investigate or prosecute any alcohol or drug abuse patient.[facility]In the event this information is protected by the Federal Confidentiality of Alcohol and Drug Abuse Patient Records regulations: The Federal rules restrict any use of the information to criminally investigate or prosecute any alcohol or drug abuse patient.[facility]In the event this information is protected by the Federal Confidentiality of Alcohol and Drug Abuse Patient Records regulations: The Federal rules restrict any use of the information to criminally investigate or prosecute any alcohol or drug abuse patient.[facility]In the event this information is protected by the Federal Confidentiality of Alcohol and Drug Abuse Patient Records regulations: The Federal rules restrict any use of the information to criminally investigate or prosecute any alcohol or drug abuse patient.[facility]In the event this information is protected by the Federal Confidentiality of Alcohol and Drug Abuse Patient Records regulations: The Federal rules restrict any use of the information to criminally investigate or prosecute any alcohol or drug abuse patient.[facility]In the event this information is protected by the Federal Confidentiality of Alcohol and Drug Abuse Patient Records regulations: The Federal rules restrict any use of the information to criminally investigate or prosecute any alcohol or drug abuse patient.[facility]In the event this information is protected by the Federal Confidentiality of Alcohol and Drug Abuse Patient Records regulations: The Federal rules restrict any use of the information to criminally investigate or prosecute any alcohol or drug abuse patient.[facility]In the event this information is protected by the Federal Confidentiality of Alcohol and Drug Abuse Patient Records regulations: The Federal rules restrict any use of the information to criminally investigate or prosecute any alcohol or drug abuse patient.[facility]In the event this information is protected by the Federal Confidentiality of Alcohol and Drug Abuse Patient Records regulations: The Federal rules restrict any use of the information to criminally investigate or prosecute any alcohol or drug abuse patient.[facility]In the event this information is protected by the Federal Confidentiality of Alcohol and Drug Abuse Patient Records regulations: The Federal rules restrict any use of the information to criminally investigate or prosecute any alcohol or drug abuse patient.[facility]In the event this information is protected by the Federal Confidentiality of Alcohol and Drug Abuse Patient Records regulations: The Federal rules restrict any use of the information to criminally investigate or prosecute any alcohol or drug abuse patient.[facility]In the event this information is protected by the Federal Confidentiality of Alcohol and Drug Abuse Patient Records regulations: The Federal rules restrict any use of the information to criminally investigate or prosecute any alcohol or drug abuse patient.[facility]In the event this information is protected by the Federal Confidentiality of Alcohol and Drug Abuse Patient Records regulations: The Federal rules restrict any use of the information to criminally investigate or prosecute any alcohol or drug abuse patient.[facility]In the event this information is protected by the Federal Confidentiality of Alcohol and Drug Abuse Patient Records regulations: The Federal rules restrict any use of the information to criminally investigate or prosecute any alcohol or drug abuse patient.[facility]In the event this information is protected by the Federal Confidentiality of Alcohol and Drug Abuse Patient Records regulations: The Federal rules restrict any use of the information to criminally investigate or prosecute any alcohol or drug abuse patient.[facility]In the event this information is protected by the Federal Confidentiality of Alcohol and Drug Abuse Patient Records regulations: The Federal rules restrict any use of the information to criminally investigate or prosecute any alcohol or drug abuse patient.[facility]In the event this information is protected by the Federal Confidentiality of Alcohol and Drug Abuse Patient Records regulations: The Federal rules restrict any use of the information to criminally investigate or prosecute any alcohol or drug abuse patient.[facility]In the event this information is protected by the Federal Confidentiality of Alcohol and Drug Abuse Patient Records regulations: The Federal rules restrict any use of the information to criminally investigate or prosecute any alcohol or drug abuse patient.[facility]In the event this information is protected by the Federal Confidentiality of Alcohol and Drug Abuse Patient Records regulations: The Federal rules restrict any use of the information to criminally investigate or prosecute any alcohol or drug abuse patient.[facility]In the event this information is protected by the Federal Confidentiality of Alcohol and Drug Abuse Patient Records regulations: The Federal rules restrict any use of the information to criminally investigate or prosecute any alcohol or drug abuse patient.[facility]In the event this information is protected by the Federal Confidentiality of Alcohol and Drug Abuse Patient Records regulations: The Federal rules restrict any use of the information to criminally investigate or prosecute any alcohol or drug abuse patient.[facility]In the event this information is protected by the Federal Confidentiality of Alcohol and Drug Abuse Patient Records regulations: The Federal rules restrict any use of the information to criminally investigate or prosecute any alcohol or drug abuse patient.[facility]In the event this information is protected by the Federal Confidentiality of Alcohol and Drug Abuse Patient Records regulations: The Federal rules restrict any use of the information to criminally investigate or prosecute any alcohol or drug abuse patient.[facility]In the event this information is protected by the Federal Confidentiality of Alcohol and Drug Abuse Patient Records regulations: The Federal rules restrict any use of the information to criminally investigate or prosecute any alcohol or drug abuse patient.[facility]In the event this information is protected by the Federal Confidentiality of Alcohol and Drug Abuse Patient Records regulations: The Federal rules restrict any use of the information to criminally investigate or prosecute any alcohol or drug abuse patient.[facility]In the event this information is protected by the Federal Confidentiality of Alcohol and Drug Abuse Patient Records regulations: The Federal rules restrict any use of the information to criminally investigate or prosecute any alcohol or drug abuse patient.[facility]In the event this information is protected by the Federal Confidentiality of Alcohol and Drug Abuse Patient Records regulations: The Federal rules restrict any use of the information to criminally investigate or prosecute any alcohol or drug abuse patient.[facility]In the event this information is protected by the Federal Confidentiality of Alcohol and Drug Abuse Patient Records regulations: The Federal rules restrict any use of the information to criminally investigate or prosecute any alcohol or drug abuse patient.[facility]In the event this information is protected by the Federal Confidentiality of Alcohol and Drug Abuse Patient Records regulations: The Federal rules restrict any use of the information to criminally investigate or prosecute any alcohol or drug abuse patient.[facility]In the event this information is protected by the Federal Confidentiality of Alcohol and Drug Abuse Patient Records regulations: The Federal rules restrict any use of the information to criminally investigate or prosecute any alcohol or drug abuse patient.[facility]In the event this information is protected by the Federal Confidentiality of Alcohol and Drug Abuse Patient Records regulations: The Federal rules restrict any use of the information to criminally investigate or prosecute any alcohol or drug abuse patient.[facility]In the event this information is protected by the Federal Confidentiality of Alcohol and Drug Abuse Patient Records regulations: The Federal rules restrict any use of the information to criminally investigate or prosecute any alcohol or drug abuse patient.[facility]In the event this information is protected by the Federal Confidentiality of Alcohol and Drug Abuse Patient Records regulations: The Federal rules restrict any use of the information to criminally investigate or prosecute any alcohol or drug abuse patient.[facility]In the event this information is protected by the Federal Confidentiality of Alcohol and Drug Abuse Patient Records regulations: The Federal rules restrict any use of the information to criminally investigate or prosecute any alcohol or drug abuse patient.[facility]In the event this information is protected by the Federal Confidentiality of Alcohol and Drug Abuse Patient Records regulations: The Federal rules restrict any use of the information to criminally investigate or prosecute any alcohol or drug abuse patient.[facility]In the event this information is protected by the Federal Confidentiality of Alcohol and Drug Abuse Patient Records regulations: The Federal rules restrict any use of the information to criminally investigate or prosecute any alcohol or drug abuse patient.[facility]In the event this information is protected by the Federal Confidentiality of Alcohol and Drug Abuse Patient Records regulations: The Federal rules restrict any use of the information to criminally investigate or prosecute any alcohol or drug abuse patient.[facility]In the event this information is protected by the Federal Confidentiality of Alcohol and Drug Abuse Patient Records regulations: The Federal rules restrict any use of the information to criminally investigate or prosecute any alcohol or drug abuse patient.[facility]In the event this information is protected by the Federal Confidentiality of Alcohol and Drug Abuse Patient Records regulations: The Federal rules restrict any use of the information to criminally investigate or prosecute any alcohol or drug abuse patient.[facility]In the event this information is protected by the Federal Confidentiality of Alcohol and Drug Abuse Patient Records regulations: The Federal rules restrict any use of the information to criminally investigate or prosecute any alcohol or drug abuse patient.[facility]In the event this information is protected by the Federal Confidentiality of Alcohol and Drug Abuse Patient Records regulations: The Federal rules restrict any use of the information to criminally investigate or prosecute any alcohol or drug abuse patient.[facility]In the event this information is protected by the Federal Confidentiality of Alcohol and Drug Abuse Patient Records regulations: The Federal rules restrict any use of the information to criminally investigate or prosecute any alcohol or drug abuse patient.[facility] HospitalIn the event this information is protected [...] or prosecute any alcohol or drug abuse patient.[facility] HospitalIn the event this information is protected by the Federal Confidentiality of Alcohol and Drug Abuse Patient Records regulations: The Federal rules restrict any use of the information to criminally investigate or prosecute any alcohol or drug abuse patient.[facility] HospitalIn the event this information is protected by the Federal Confidentiality of Alcohol and Drug Abuse Patient Records regulations: The Federal rules restrict any use of the information to criminally investigate or prosecute any alcohol or drug abuse patient.[facility] HospitalIn the event this information is protected by the Federal Confidentiality of Alcohol and Drug Abuse Patient Records regulations: The Federal rules restrict any use of the information to criminally investigate or prosecute any alcohol or drug abuse patient.[facility] HospitalIn the event this information is protected by the Federal Confidentiality of Alcohol and Drug Abuse Patient Records regulations: The Federal rules restrict any use of the information to criminally investigate or prosecute any alcohol or drug abuse patient.[facility] HospitalIn the event this information is protected by the Federal Confidentiality of Alcohol and Drug Abuse Patient Records regulations: The Federal rules restrict any use of the information to criminally investigate or prosecute any alcohol or drug abuse patient.[facility] HospitalIn the event this information is protected by the Federal Confidentiality of Alcohol and Drug Abuse Patient Records regulations: The Federal rules restrict any use of the information to criminally investigate or prosecute any alcohol or drug abuse patient.[facility] HospitalIn the event this information is protected by the Federal Confidentiality of Alcohol and Drug Abuse Patient Records regulations: The Federal rules restrict any use of the information to criminally investigate or prosecute any alcohol or drug abuse patient.[facility] HospitalIn the event this information is protected by the Federal Confidentiality of Alcohol and Drug Abuse Patient Records regulations: The Federal rules restrict any use of the information to criminally investigate or prosecute any alcohol or drug abuse patient.[facility] HospitalIn the event this information is protected by the Federal Confidentiality of Alcohol and Drug Abuse Patient Records regulations: The Federal rules restrict any use of the information to criminally investigate or prosecute any alcohol or drug abuse patient.[facility] HospitalIn the event this information is protected by the Federal Confidentiality of Alcohol and Drug Abuse Patient Records regulations: The Federal rules restrict any use of the information to criminally investigate or prosecute any alcohol or drug abuse patient.[facility] HospitalIn the event this information is protected by the Federal Confidentiality of Alcohol and Drug Abuse Patient Records regulations: The Federal rules restrict any use of the information to criminally investigate or prosecute any alcohol or drug abuse patient.[facility] HospitalIn the event this information is protected by the Federal Confidentiality of Alcohol and Drug Abuse Patient Records regulations: The Federal rules restrict any use of the information to criminally investigate or prosecute any alcohol or drug abuse patient.[facility] HospitalIn the event this information is protected by the Federal Confidentiality of Alcohol and Drug Abuse Patient Records regulations: The Federal rules restrict any use of the information to criminally investigate or prosecute any alcohol or drug abuse patient.[facility] HospitalIn the event this information is protected by the Federal Confidentiality of Alcohol and Drug Abuse Patient Records regulations: The Federal rules restrict any use of the information to criminally investigate or prosecute any alcohol or drug abuse patient.[facility] HospitalIn the event this information is protected by the Federal Confidentiality of Alcohol and Drug Abuse Patient Records regulations: The Federal rules restrict any use of the information to criminally investigate or prosecute any alcohol or drug abuse patient.[facility] HospitalIn the event this information is protected by the Federal Confidentiality of Alcohol and Drug Abuse Patient Records regulations: The Federal rules restrict any use of the information to criminally investigate or prosecute any alcohol or drug abuse patient.[facility] HospitalIn the event this information is protected by the Federal Confidentiality of Alcohol and Drug Abuse Patient Records regulations: The Federal rules restrict any use of the information to criminally investigate or prosecute any alcohol or drug abuse patient.[facility] HospitalIn the event this information is protected by the Federal Confidentiality of Alcohol and Drug Abuse Patient Records regulations: The Federal rules restrict any use of the information to criminally investigate or prosecute any alcohol or drug abuse patient.[facility] HospitalIn the event this information is protected by the Federal Confidentiality of Alcohol and Drug Abuse Patient Records regulations: The Federal rules restrict any use of the information to criminally investigate or prosecute any alcohol or drug abuse patient.[facility] HospitalIn the event this information is protected by the Federal Confidentiality of Alcohol and Drug Abuse Patient Records regulations: The Federal rules restrict any use of the information to criminally investigate or prosecute any alcohol or drug abuse patient.[facility] HospitalIn the event this information is protected by the Federal Confidentiality of Alcohol and Drug Abuse Patient Records regulations: The Federal rules restrict any use of the information to criminally investigate or prosecute any alcohol or drug abuse patient.[facility] HospitalIn the event this information is protected by the Federal Confidentiality of Alcohol and Drug Abuse Patient Records regulations: The Federal rules restrict any use of the information to criminally investigate or prosecute any alcohol or drug abuse patient.[facility] HospitalIn the event this information is protected by the Federal Confidentiality of Alcohol and Drug Abuse Patient Records regulations: The Federal rules restrict any use of the information to criminally investigate or prosecute any alcohol or drug abuse patient.[facility] HospitalIn the event this information is protected by the Federal Confidentiality of Alcohol and Drug Abuse Patient Records regulations: The Federal rules restrict any use of the information to criminally investigate or prosecute any alcohol or drug abuse patient.[facility] HospitalIn the event this information is protected by the Federal Confidentiality of Alcohol and Drug Abuse Patient Records regulations: The Federal rules restrict any use of the information to criminally investigate or prosecute any alcohol or drug abuse patient.[facility] HospitalIn the event this information is protected by the Federal Confidentiality of Alcohol and Drug Abuse Patient Records regulations: The Federal rules restrict any use of the information to criminally investigate or prosecute any alcohol or drug abuse patient.[facility] HospitalIn the event this information is protected by the Federal Confidentiality of Alcohol and Drug Abuse Patient Records regulations: The Federal rules restrict any use of the information to criminally investigate or prosecute any alcohol or drug abuse patient.[facility] HospitalIn the event this information is protected by the Federal Confidentiality of Alcohol and Drug Abuse Patient Records regulations: The Federal rules restrict any use of the information to criminally investigate or prosecute any alcohol or drug abuse patient.[facility] HospitalIn the event this information is protected by the Federal Confidentiality of Alcohol and Drug Abuse Patient Records regulations: The Federal rules restrict any use of the information to criminally investigate or prosecute any alcohol or drug abuse patient.[facility] HospitalIn the event this information is protected by the Federal Confidentiality of Alcohol and Drug Abuse Patient Records regulations: The Federal rules restrict any use of the information to criminally investigate or prosecute any alcohol or drug abuse patient.[facility] HospitalIn the event this information is protected by the Federal Confidentiality of Alcohol and Drug Abuse Patient Records regulations: The Federal rules restrict any use of the information to criminally investigate or prosecute any alcohol or drug abuse patient.[facility] HospitalIn the event this information is protected by the Federal Confidentiality of Alcohol and Drug Abuse Patient Records regulations: The Federal rules restrict any use of the information to criminally investigate or prosecute any alcohol or drug abuse patient.[facility] HospitalIn the event this information is protected by the Federal Confidentiality of Alcohol and Drug Abuse Patient Records regulations: The Federal rules restrict any use of the information to criminally investigate or prosecute any alcohol or drug abuse patient.[facility] HospitalIn the event this information is protected by the Federal Confidentiality of Alcohol and Drug Abuse Patient Records regulations: The Federal rules restrict any use of the information to criminally investigate or prosecute any alcohol or drug abuse patient.[facility] HospitalIn the event this information is protected by the Federal Confidentiality of Alcohol and Drug Abuse Patient Records regulations: The Federal rules restrict any use of the information to criminally investigate or prosecute any alcohol or drug abuse patient.[facility] HospitalIn the event this information is protected by the Federal Confidentiality of Alcohol and Drug Abuse Patient Records regulations: The Federal rules restrict any use of the information to criminally investigate or prosecute any alcohol or drug abuse patient.[facility] HospitalIn the event this information is protected by the Federal Confidentiality of Alcohol and Drug Abuse Patient Records regulations: The Federal rules restrict any use of the information to criminally investigate or prosecute any alcohol or drug abuse patient.[facility] HospitalIn the event this information is protected by the Federal Confidentiality of Alcohol and Drug Abuse Patient Records regulations: The Federal rules restrict any use of the information to criminally investigate or prosecute any alcohol or drug abuse patient.[facility] HospitalIn the event this information is protected by the Federal Confidentiality of Alcohol and Drug Abuse Patient Records regulations: The Federal rules restrict any use of the information to criminally investigate or prosecute any alcohol or drug abuse patient.[facility] HospitalIn the event this information is protected by the Federal Confidentiality of Alcohol and Drug Abuse Patient Records regulations: The Federal rules restrict any use of the information to criminally investigate or prosecute any alcohol or drug abuse patient.[facility] HospitalIn the event this information is protected by the Federal Confidentiality of Alcohol and Drug Abuse Patient Records regulations: The Federal rules restrict any use of the information to criminally investigate or prosecute any alcohol or drug abuse patient.[facility] Reason for Visit (unrecogniz ed section and content) Reason Comments Established Patient Pain Specialty Diagnoses / Procedures Referred By Opal t Referred To Contact Podiatry Diagnoses Pain of left heel Procedures CONSULT TO PODIATRY OFFICE/OUTPATIENT NEW HIGH MDM 60 MINUTES Danita Meraz PA-C [address] [place] [address] Referral ID Status Reason Start Date Expiration Date V isits Requested Visits Authorized [id number] Closed PCP Requested Referral 03/04/2024 03/04/2025 1 1 Reason Comments PT Discharge Specialty Diagnoses / Procedures Referred By Opal t Referred To Contact [facility] Diagnoses Anterior dislocation of right shoulder, subsequent encounter 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, subsequent encounter Procedures CONSULT TO PHYSICAL THERAPY PHYSICAL THERAPY EVALUATION HIGH COMPLEX 45 MINS Robert Combs MD [address] [place] [address] [facility] [place] [address] [place] [address] Referral ID Status Reason Start Date Expiration Date Visits Requested Visits Authorized [id number] Authorized PCP Requested Referral Auto-Generate d Referral [...] HIGH MDM 60-74 MINUTES Danita Meraz PA-C [address] [place] [address] Referral ID Status Reason Start Date Expiration Date V isits Requested Visits Authorized [id number] Closed PCP Requested Referral 04/02/2022 04/02/2023 1 [...] Mental Status Changes Reason Comments ER F/U [facility] ER f/u 06/17/23 d x: COVID pneumonia [...] Delusions (HCC) Procedures CONSULT TO NEUROLOGY OFFICE/OUTPATIENT [facility] 60 MINUTES Adama Mendoza MD [address] [place] [address] Referral ID Status Reason Start Date Expiration Date V isits Requested Visits Authorized [id number] Closed PCP Requested Referral 10/12/2023 10/11/2024 1 1 Reason Comments Spirometry Specialty Diagnoses / Procedures Referred By Contac t Referred To Contact [facility] Diagnoses Centrilobular emphysema (HCC) Procedures SPIROMETRY WITH DILATOR IF OBSTRUCTED BRNCDILAT RSPSE SPMTRY PRE&POST-BRNCDILAT ADMN Stephany Suarez MD [address] [place] [address] [facility] [place] [address] [place] [address] Referral ID Status Reason Start Date Expiration Date V isits Requested Visits Authorized [id number] Closed Auto-Generate d Referral 12/08/2023 01/06/2025 1 1 Specialty Diagnoses / Procedures Referred By Contac t Referred To Contact [facility] Diagnoses Centrilobular emphysema (HCC) Procedures LUNG DIFFUSION CAPACITY (DLCO) DIFFUSING CAPACITY Stephany Suarez MD [address] [place] [address] [address] Referral ID Status Reason Start Date Expiration Date V isits Requested Visits Authorized [id number] Closed Auto-Generate d Referral 12/08/2023 01/06/2025 1 1 Specialty Diagnoses / Procedures Referred By Contac t Referred To Contact [facility] Diagnoses Centrilobular emphysema (HCC) Procedures LUNG VOLUMES Stephany Suarez MD [address] [place] [address] [address] Referral ID Status Reason Start Date Expiration Date V isits Requested Visits Authorized [id number] Closed Auto-Generate d Referral 12/08/2023 01/06/2025 1 1 Specialty Diagnoses / Procedures Referred By Contac t Referred To Contact [facility] Diagnoses Centrilobular emphysema (HCC) Procedures OXIMETRY WITH AMBULATION NONINVASIVE EAR/PULSE OXIMETRY MULTIPLE DETER Stephany Suarez MD [address] [place] [address] [address] Referral ID Status Reason Start Date Expiration Date V isits Requested Visits Authorized [id number] Closed Auto-Generate d Referral 12/08/2023 01/06/2025 1 1 Reason Comments Results PFT Specialty Diagnoses / Procedures Referred By Contac t Referred To Contact [facility] Diagnoses Transient cerebral ischemia, unspecified type Procedures MRI BRAIN WO IVCON MRI BRAIN BRAIN STEM W/O CONTRAST MATERIAL Shaye Kitchen Jr., MD [address] [address] [place] [address] Referral ID Status Reason Start Date Expiration Date V isits Requested Visits Authorized [id number] Closed Auto-Generate d Referral 11/20/2023 12/19/2024 1 1 Specialty Diagnoses / Procedures Referred By Contac t Referred To Contact [facility] Diagnoses Transient cerebral ischemia, unspecified type Procedures MRA BRAIN WO IVCON MRA, HEAD W/O CONTRAST Shaye Kitchen Jr., MD [address] [facility] [address] [place] [address] [place] [address] Referral ID Status Reason Start Date Expiration Date V isits Requested Visits Authorized [id number] Closed Auto-Generate d Referral 11/20/2023 12/19/2024 1 1 Specialty Diagnoses / Procedures Referred By Contac t Referred To Contact [facility] Diagnoses Transient cerebral ischemia, unspecified type Procedures MRA CAROTID WO IVCON MRA, NECK; W/O CONTRAST Shaye Kitchen Jr., MD [address] [facility] [address] [place] [address] [place] [address] Referral ID Status Reason Start Date Expiration Date V isits Requested Visits Authorized [id number] Closed Auto-Generate d Referral 11/20/2023 12/19/2024 1 1 Reason Comments Forms Reason Comments Consult results Reason Onset Date Comments Refill Request 01/25/2024 Reason Comments Results Reason Comments Pain Left heel pain X cou ple Reason Comments Follow Up Follow up Reason Onset Date Comments Refill Request 03/28/2024 Reason Comments Consult [facility] Reason Comments Established Patient 3 [...] REAL TIME W/IMAGE DOCUMENTATION Danita Meraz PA-C [address] [place] [address] [place] [address] Referral ID Status Reason Start Date Expiration Date V isits Requested Visits Authorized [id number] Closed Auto-Generate d Referral 07/21/2024 08/20/2025 1 1 Reason Comments Imm/Inj Reason Comments Procedure Ultrasound Guided Ne edle Core Biopsy back mass. Reason Comments Consult Mass of back Specialty Diagnoses / Procedures Referred By Contac t Referred To Contact General Surgery Diagnoses Mass of subcutaneous tissue of back Procedures CONSULT TO GENERAL SURGERY OFFICE/OUTPATIENT NEW HIGH MDM 60 MINUTES Danita Meraz PA-C [address] [place] [address] Referral ID Status Reason Start Date Expiration Date V isits Requested Visits Authorized [id number] Closed PCP Requested Referral 08/01/2024 08/01/2025 1 [...] ECG W/LEAST 12 LDS W/I&R Margaret Ardon, USER SUPPORT ANALYST SUPERVISOR.MICROSOFT DEVELOPER [address] [place] [address] [facility] [place] [address] [place] [address] Referral ID Status Reason Start Date Expiration Date V isits Requested Visits Authorized [id number] Closed Auto-Generate d Referral 10/14/2024 10/14/2025 1 [...] HIGH COMPLEX 45 MINS Adama Mendoza MD [address] [place] [address] [facility] [place] [address] Referral ID Status Reason Start Date Expiration Date Visits Requested Visits Authorized [id number] Authorized PCP Requested Referral Auto-Generate d Referral [...] Care Teams (unrecognized sec tion and content) Rehabilitation Technician Relationship Specialty Start Date End Date Adama Mendoza MD [address] [place] [address] PCP - General Family Practice 10/31/16 Rehabilitation Technician Relationship Specialty Start Date End Date Adama Mendoza MD [address] [facility] [place] [address] PCP - General Family Practice 10/31/16 Rehabilitation Technician Relationship Specialty Start Date End Date Adama Mendoza MD [address] [place] [address], [place] [address] PCP - General Family Practice 10/31/16 Rehabilitation Technician Relationship Specialty Start Date End Date Adama Mendoza MD [address] [place] [address], [place] [address] PCP - General Family Practice 10/31/16 Rehabilitation Technician Relationship Specialty Start Date End Date Adama Mendoza MD [address] [place] [address] [place] [address] PCP - General Family Practice 10/31/16 Rehabilitation Technician Relationship Specialty Start Date End Date Adama Mendoza MD [address] [place] [address] PCP - General Family Practice 10/31/16 Rehabilitation Technician Relationship Specialty Start Date End Date Adama Mendoza MD [address] [place] [address] [place] [address] PCP - General Family Practice 10/31/16 Rehabilitation Technician Relationship Specialty Start Date End Date Adama Mendoza MD [address] [place] [address] [place] [address] PCP - General Family Medicine 10/31/16 Rehabilitation Technician Relationship Specialty Start Date End Date Adama Mendoza MD [address] [place] [address], [place] [address] PCP - General Family Medicine 10/31/16 Rehabilitation Technician Relationship Specialty Start Date End Date Adama Mendoza MD [address] [place] [address] [place] [address] PCP - General Family Medicine 10/31/16 Rehabilitation Technician Relationship Specialty Start Date End Date Adama Mendoza MD [address] [facility] [place] [address] PCP - General Family Medicine 10/31/16 Rehabilitation Technician Relationship Specialty Start Date End Date Adama Mendoza MD [address] [facility] [place] [address] PCP - General Family Medicine 10/31/16 Rehabilitation Technician Relationship Specialty Start Date End Date Adama Mendoza MD [address] [facility] [place] [address] PCP - General Family Medicine 10/31/16 Rehabilitation Technician Relationship Specialty Start Date End Date Adama Mendoza MD [facility] [place] [address] PCP - General Family Medicine 10/31/16 Rehabilitation Technician Relationship Specialty Start Date End Date Adama Mendoza MD [facility] [place] [address] PCP - General Family Medicine 10/31/16 Rehabilitation Technician Relationship Specialty Start Date End Date Adama Mendoza MD [facility] [place] [address] PCP - General Family Medicine 10/31/16 Rehabilitation Technician Relationship Specialty Start Date End Date Adama Mendoza MD [facility] [place] [address] PCP - General Family Medicine 10/31/16 Rehabilitation Technician Relationship Specialty Start Date End Date Adama Mendoza MD [facility] [place] [address] PCP - General Family Medicine 10/31/16 Rehabilitation Technician Relationship Specialty Start Date End Date Adama Mendoza MD [facility] [place] [address] PCP - General Family Medicine 10/31/16 Rehabilitation Technician Relationship Specialty Start Date End Date Adama Mendoza MD [address] [facility] [place] [address] PCP - General Family Medicine 10/31/16 Rehabilitation Technician Relationship Specialty Start Date End Date Adama Mendoza MD [address] [place] [address] PCP - General Family Medicine 10/31/16 Rehabilitation Technician Relationship Specialty Start Date End Date Adama Mendoza MD [address] [place] [address] PCP - General Family Medicine 10/31/16 Rehabilitation Technician Relationship Specialty Start Date End Date Adama Mendoza MD [address] [place] [address] PCP - General Family Medicine 10/31/16 Rehabilitation Technician Relationship Specialty Start Date End Date Adama Mendoza MD [address] [place] [address] PCP - General Family Medicine 10/31/16 Rehabilitation Technician Relationship Specialty Start Date End Date Adama Mendoza MD [address] [place] [address] PCP - General Family Medicine 10/31/16 Rehabilitation Technician Relationship Specialty Start Date End Date Adama Mendoza MD [address] [place] [address] PCP - General Family Medicine 10/31/16 Rehabilitation Technician Relationship Specialty Start Date End Date Adama Mendoza MD [address] [place] [address] PCP - General Family Medicine 10/31/16 Rehabilitation Technician Relationship Specialty Start Date End Date Adama Mendoza MD [address] [place], [place] [address] PCP - General Family Medicine 10/31/16 Team Status: Active Member Role Status Dates Dr. Adama Mendoza MD Family Provider Active Dr. Adama Mendoza MD Primary Care Provider Active Team Status: Inactive Member Role Status Dates Dr. Adama Mendoza MD Primary Care Provider Active Harshil Rondon MD Emergency Provider Active Rehabilitation Technician Relationship Specialty Start Date End Date Adama Mendoza MD [address] [place] [address] PCP - General Family Medicine 10/31/16 Rehabilitation Technician Relationship Specialty Start Date End Date Adama Mendoza MD [address] [place] [address] PCP - General Family Medicine 10/31/16 Rehabilitation Technician Relationship Specialty Start Date End Date Adama Mendoza MD [address] [place] [address] PCP - General Family Medicine 10/31/16 Rehabilitation Technician Relationship Specialty Start Date End Date Adama Mendoza MD [address] [place] [address] PCP - General Family Medicine 10/31/16 Team [...] Dr. Abelardo Lowe MD Emergency Provider Active Rehabilitation Technician Relationship Specialty Start Date End Date Adama Mendoza MD [address] [place] [address] PCP - General Family Medicine 10/31/16 Rehabilitation Technician Relationship Specialty Start Date End Date Adama Mendoza MD [address] [place] [address] PCP - General Family Medicine 10/31/16 Rehabilitation Technician Relationship Specialty Start Date End Date Adama Mendoza MD [address] [place] [address] PCP - General Family Medicine 10/31/16 Rehabilitation Technician Relationship Specialty Start Date End Date Adama Mendoza MD [address] [place] [address] PCP - General Family Medicine 10/31/16 Rehabilitation Technician Relationship Specialty Start Date End Date Adama Mendoza MD 0 [place] [address] PCP - General Family Medicine 10/31/16 Rehabilitation Technician Relationship Specialty Start Date End Date Adama Mendoza MD [address] [place] [address] PCP - General Family Medicine 10/31/16 Rehabilitation Technician Relationship Specialty Start Date End Date Adama Mendoza MD [address] [place] [address] PCP - General Family Medicine 10/31/16 Rehabilitation Technician Relationship Specialty Start Date End Date Adama Mendoza MD [address] [place] [address] PCP - General Family Medicine 10/31/16 Rehabilitation Technician Relationship Specialty Start Date End Date Adama Mendoza MD [address] [facility] [place] [address] PCP - General Family Medicine 10/31/16 Rehabilitation Technician Relationship Specialty Start Date End Date Adama Mendoza MD [address] [facility] [place] [address] PCP - General Family Medicine 10/31/16 Rehabilitation Technician Relationship Specialty Start Date End Date Adama Mendoza MD [address] [facility] [place] [address] PCP - General Family Medicine 10/31/16 Rehabilitation Technician Relationship Specialty Start Date End Date Adama Mendoza MD [address] [place] [address] PCP - General Family Medicine 10/31/16 Rehabilitation Technician Relationship Specialty Start Date End Date Adama Mendoza MD [address] [place] [address] PCP - General Family Medicine 10/31/16 Rehabilitation Technician Relationship Specialty Start Date End Date Adama Mendoza MD [address] [place] [address] PCP - General Family Medicine 10/31/16 Rehabilitation Technician Relationship Specialty Start Date End Date Adama Mendoza MD [address] [place] [address] PCP - General Family Medicine 10/31/16 Rehabilitation Technician Relationship Specialty Start Date End Date Adama Mendoza MD [address] [place] [address] PCP - General Family Medicine 10/31/16 Rehabilitation Technician Relationship Specialty Start Date End Date Adama Mendoza MD [address] [facility] [place] [address] PCP - General Family Medicine 10/31/16 Rehabilitation Technician Relationship Specialty Start Date End Date Adama Mendoza MD [address] [facility] [place] [address] PCP - General Family Medicine 10/31/16 Rehabilitation Technician Relationship Specialty Start Date End Date Adama Mendoza MD [address] [facility] [place] [address] PCP - General Family Medicine 10/31/16 Rehabilitation Technician Relationship Specialty Start Date End Date Adama Mendoza MD [address] [facility] [place] [address] PCP - General Family Medicine 10/31/16 Rehabilitation Technician Relationship Specialty Start Date End Date Adama Mendoza MD [address] [facility] [place] [address] PCP - General Family Medicine 10/31/16 Rehabilitation Technician Relationship Specialty Start Date End Date Adama Mendoza MD [address] [facility] [place] [address] PCP - General Family Medicine 10/31/16 Rehabilitation Technician Relationship Specialty Start Date End Date Adama Mendoza MD [address] [facility] [place] [address] PCP - General Family Medicine 10/31/16 Claude Cardenas APRN.CNP [address] [place] [address] Industrial Machinery Mechanic Family Medicine 09/10/24 Danita Meraz PA-C [address] [facility] [place] [address] Industrial Machinery Mechanic Family Medicine 09/10/24 Rehabilitation Technician Relationship Specialty Start Date End Date Adama Mendoza MD [address] [facility] [place] [address] PCP - General Family Medicine 10/31/16 Claude Cardenas APRN.MICROSOFT DEVELOPER [address] [place] [address] Industrial Machinery Mechanic Family Medicine 09/10/24 Danita Meraz PA-C [address] [place] [address] [facility] Rehabilitation Technician Relationship Specialty Start Date End Date Adama Mendoza MD [address] [place] [address] PCP - General Family Medicine 10/31/16 Claude Cardenas APRN.MICROSOFT DEVELOPER [address] [place] [address] Industrial Machinery Mechanic Family Medicine 09/10/24 Danita Meraz PA-C [address] [place] [address] Industrial Machinery Mechanic Family Medicine 09/10/24 Rehabilitation Technician Relationship Specialty Start Date End Date Adama Mendoza MD [address] [place] [address] PCP - General Family Medicine 10/31/16 Claude Cardenas APRN.MICROSOFT DEVELOPER [address] [place] [address] Industrial Machinery Mechanic Family Medicine 09/10/24 Danita Meraz PA-C [address] [place] [address] Industrial Machinery Mechanic Family Medicine 09/10/24 Rehabilitation Technician Relationship Specialty Start Date End Date Adama Mendoza MD [address] [place] [address] PCP - General Family Medicine 10/31/16 Claude Cardenas APRN.MICROSOFT DEVELOPER [address] [place] [address] Industrial Machinery Mechanic Family Medicine 09/10/24 Danita Meraz PA-C [address] [place] [address] Industrial Machinery Mechanic Family Medicine 09/10/24 Rehabilitation Technician Relationship Specialty Start Date End Date Adama Mednoza MD [address] [place] [address] PCP - General Family Medicine 10/31/16 Claude Cardenas APRN.MICROSOFT DEVELOPER [address] [place] [address] Industrial Machinery Mechanic Family Medicine 09/10/24 Danita Meraz PA-C [address] [place] [address] Industrial Machinery Mechanic Family Medicine 09/10/24 Rehabilitation Technician Relationship Specialty Start Date End Date Adama Mendoza MD [address] [place] [address] PCP - General Family Medicine 10/31/16 Claude Cardenas, MIO.MICROSOFT DEVELOPER [address] [place] [address] Industrial Machinery Mechanic Family Medicine 09/10/24 Danita Meraz PA-C [address] [place] [address] Industrial Machinery Mechanic Family Medicine 09/10/24 Rehabilitation Technician Relationship Specialty Start Date End Date Adama Mendoza MD [address] [place] [address] PCP - General Family Medicine 10/31/16 Claude Cardenas, MIO.MICROSOFT DEVELOPER [address] [place] [address] Industrial Machinery Mechanic Family Medicine 09/10/24 Danita Meraz PA-C [address] [place] [address] Industrial Machinery Mechanic Family Medicine 09/10/24 Rehabilitation Technician Relationship Specialty Start Date End Date Adama Mendoza MD [address] [place] [address] PCP - General Family Medicine 10/31/16 Claude Cardenas, USER SUPPORT ANALYST SUPERVISOR.MICROSOFT DEVELOPER [address] [place] [address] Industrial Machinery Mechanic Family Medicine 09/10/24 Danita Meraz PA-C [address] [place] [address] Industrial Machinery Mechanic Family Medicine 09/10/24 Rehabilitation Technician Relationship Specialty Start Date End Date Adama Mendoza MD [address] [place] [address] PCP - General Family Medicine 10/31/16 Claude Cardenas APRN.MICROSOFT DEVELOPER [address] [place] [address] Industrial Machinery Mechanic Family Medicine 09/10/24 Danita Meraz PA-C [address] [place] [address] Industrial Machinery Mechanic Family Medicine 09/10/24 Rehabilitation Technician Relationship Specialty Start Date End Date Adama Mendoza MD [address] [place] [address] PCP - General Family Medicine 10/31/16 Claude Cardenas APRN.MICROSOFT DEVELOPER [address] [place] [address] Industrial Machinery Mechanic Family Medicine 09/10/24 Danita Meraz PA-C [address] [place] [address] Industrial Machinery Mechanic Family [facility] 09/10/24 Soto Valderrama MD [address] [place] [address] [phone] Referring Internal Medicine 10/20/24 Adama Mendoza MD [address] [place] [address] Home Care Provider Family Medicine 10/20/24 Krishna Mackey, RN [address] [place], [place] [id number] Transit Mixer Driver Post Acute Care 10/20/24 Rehabilitation Technician Relationship Specialty Start Date End Date Adama Mendoza MD [address] [place] [address] PCP - General Family Medicine 10/31/16 Claude Cardenas APRN.MICROSOFT DEVELOPER [address] [place] [address] Industrial Machinery Mechanic Family Medicine 09/10/24 Danita Meraz PA-C [address] [place] [address] Industrial Machinery Mechanic Family Medicine 09/10/24 Soto Valderrama MD [address] [place] [address] Referring Internal Medicine 10/20/24 Adama Mendoza MD [address] [place] [address] Home Care Provider Family Medicine 10/20/24 Krishna Mackey, RN [address] [place] [address] Transit Mixer Driver Post Acute Care 10/20/24 Rehabilitation Technician Relationship Specialty Start Date End Date Adama Mendoza MD [address] [place] [address] PCP - General Family Medicine 10/31/16 Claude Cardenas APRN.MICROSOFT DEVELOPER [address] [place] [address] Industrial Machinery Mechanic Family Medicine 09/10/24 Danita Meraz PA-C [address] [place] [address] Industrial Machinery Mechanic Family Medicine 09/10/24 Soto Valderrama MD [address] [place], [place] [phone] Referring Internal Medicine 10/20/24 Adama Mendoza MD [address] [place], [place] 059161 Home Care Provider Family Medicine 10/20/24 Krishna Mackey, VAN [address] [place], [place] [phone] Transit Mixer Driver Post Acute Care 10/20/24 Brianna Doe, office helper clerical Senior Administrative Services Officer 10/21/24 Rehabilitation Technician Relationship Specialty Start Date End Date Adama Mendoza MD [facility] [place], [place] 472971 PCP - General Family Medicine 10/31/16 Claude Cardenas APRN.MICROSOFT DEVELOPER [address] [place] [address] [phone] Industrial Machinery Mechanic Family Medicine 09/10/24 Danita Meraz PA-C [address] [place] [address] Industrial Machinery Mechanic Family Medicine 09/10/24 Soto Valderrama MD [address] [place], [place] [phone] Referring Internal Medicine 10/20/24 Adama Mendoza MD [address] [place] [address] Home Care Provider Family Medicine 10/20/24 Krishna Mackey, VAN [address] [place], [place] [phone] Transit Mixer Driver Post Acute Care 10/20/24 Brianna Doe, office helper clerical Senior Administrative Services Officer 10/21/24 Rehabilitation Technician Relationship Specialty Start Date End Date Adama Mendoza MD [address] [place] [address] PCP - General Family Medicine 10/31/16 Claude Cardenas APRN.MICROSOFT DEVELOPER [address] [place] [address] [phone] Industrial Machinery Mechanic Family Medicine 09/10/24 Danita Meraz PA-C [address] [place] [address] [phone] Industrial Machinery Mechanic Family [facility] 09/10/24 Soto Valderrama MD [address] [place] [address] [phone] Referring Internal Medicine 10/20/24 Adama Mendoza MD [address] [place] [address] Home Care Provider Family Medicine 10/20/24 Krishna Mackey, RN [address] [place] [address] Transit Mixer Driver Post Acute Care 10/20/24 Brianna Doe, office helper clerical Senior Administrative Services Officer 10/21/24 Rehabilitation Technician Relationship Specialty Start Date End Date Adama Mendoza MD [address] [place] [address] PCP - General Family Medicine 10/31/16 Claude Cardenas, MIO.MICROSOFT DEVELOPER [address] [place] [address] Industrial Machinery Mechanic Family Medicine 09/10/24 Danita Meraz PA-C [address] [place], [place] 571521 Industrial Machinery Mechanic Family [facility] 09/10/24 Soto Valderrama MD [address] [place], [place] [phone] Referring Internal Medicine 10/20/24 Adama Mendoza MD [address] [place] [address] 144851 Home Care Provider Family Medicine 10/20/24 Krishna Mackey, VAN [address] [place], [place] [phone] Transit Mixer Driver Post Acute Care 10/20/24 Brianna Doe RN Primary Care Senior Administrative Services Officer 10/21/24 Rehabilitation Technician Relationship Specialty Start Date End Date Adama Mendoza MD [address] [place] [address] PCP - General Family Medicine 10/31/16 Claude Cardenas APRN.RACHELLE [address] [place] [address] [phone] Industrial Machinery Mechanic [facility] 09/10/24 Danita Meraz PA-C [address] [place] [address] [phone] Industrial Machinery Mechanic Family [facility] 09/10/24 Soto Valderrama MD [address] [place], [place] [phone] Referring Internal Medicine 10/20/24 Adama Mendoza MD [address] [place], [place] [id number] Home Care Provider Family Medicine 10/20/24 Krishna MackeyVAN [address] [place] [address] Transit Mixer Driver Post Acute Care 10/20/24 Brianna Doe, office helper clerical Senior Administrative Services Officer 10/21/24 Rehabilitation Technician Relationship Specialty Start Date End Date Adama Mendoza MD [facility] [place], [place] 900351 [phone] PCP - General Family Medicine 10/31/16 Claude Cardenas APRN.MICROSOFT DEVELOPER [address] [place] [address] [phone] Industrial Machinery Mechanic Family Medicine 09/10/24 Danita Meraz PA-C [address] [place] [address] Industrial Machinery Mechanic Family Medicine 09/10/24 Soto Valderrama MD [address] [place] [address] [phone] Referring Internal Medicine 10/20/24 Adama Mendoza MD [address] [place] [address] Home Care Provider Family Medicine 10/20/24 Krishna Mackey RN [address] [place] [address] Transit Mixer Driver Post Acute Care 10/20/24 Brianna Doe, office helper clerical Senior Administrative Services Officer 10/21/24 Rehabilitation Technician Relationship Specialty Start Date End Date Adama Mendoza MD [address] [place] [address] [phone] PCP - General Family Medicine 10/31/16 Claude Cardenas APRN.MICROSOFT DEVELOPER [address] [place] [address] [phone] Industrial Machinery Mechanic Family [facility] 09/10/24 Danita Meraz PA-C [address] [place], [place] 415201 Industrial Machinery Mechanic Family [facility] 09/10/24 Soto Valderrama MD [address] [place], [place] [phone] Referring Internal Medicine 10/20/24 Adama Mendoza MD [address] [place] [address]81 Home Care Provider Family Medicine 10/20/24 Krishna Mackey, VAN [address] [place], [place] [phone] Transit Mixer Driver Post Acute Care 10/20/24 Brianna Doe, office helper clerical Senior Administrative Services Officer 10/21/24 Rehabilitation Technician Relationship Specialty Start Date End Date Adama Mendoza MD [address] [place] [address] PCP - General Family Medicine 10/31/16 Claude Cardenas APRN.CNP [address] [place] [address] [phone] Industrial Machinery Mechanic Family [facility] 09/10/24 Danita Meraz PA-C [address] [place] [address] Industrial Machinery Mechanic Family [facility] 09/10/24 Soto Valderrama MD [address] [place] [address] Referring Internal Medicine 10/20/24 Adama Mendoza MD [address] [place] [address] [phone] Home Care Provider Family Medicine 10/20/24 Brianna Doe, office helper clerical Senior Administrative Services Officer 10/21/24 Rehabilitation Technician Relationship Specialty Start Date End Date Adama Mendoza MD [address] [place] [address] PCP - General Family Medicine 10/31/16 Claude Cardenas APRN.MICROSOFT DEVELOPER [address] [place] [address] Industrial Machinery Mechanic Family Medicine 09/10/24 Danita Meraz PA-C [address] [place] [address] 25971 Industrial Machinery Mechanic Family Medicine 09/10/24 Soto Valderrama MD [address] [place] [address]87 Referring Internal Medicine 10/20/24 Adama Mendoza MD [address] [place] [address] Home Care Provider Family Medicine 10/20/24 Brianna Doe RN Primary Care Senior Administrative Services Officer 10/21/24 Rehabilitation Technician Relationship Specialty Start Date End Date Adama Mendoza MD [address] [place] [address] PCP - General Family Medicine 10/31/16 Claude Cardenas APRN.MICROSOFT DEVELOPER [address] [place] [address] Industrial Machinery Mechanic Family Medicine 09/10/24 Danita Meraz PA-C [address] [place] [address] Industrial Machinery Mechanic Family Medicine 09/10/24 Soto Valderrama MD [address] [place] [address] 18098 Referring Internal Medicine 10/20/24 Adama Mendoza MD [address] [place] [address] 08351 Home Care Provider Family Medicine 10/20/24 Brianna Doe, office helper clerical Senior Administrative Services Officer 10/21/24 Rehabilitation Technician Relationship Specialty Start Date End Date Adama Mendoza MD [address] [place] [address] 29548 PCP - General Family Medicine 10/31/16 Claude Cardenas APRN.MICROSOFT DEVELOPER [address] [place] [address] 320691 Industrial Machinery Mechanic Family Medicine 09/10/24 Danita Meraz PA-C [address] [place] [address] 18[address] Industrial Machinery Mechanic Family [facility] 09/10/24 Soto Valderrama MD [address] [place] [address]44 Referring Internal Medicine 10/20/24 Adama Mendoza MD [address] [place] [address]2638 Home Care Provider Family Medicine 10/20/24 Brianna Doe, office helper clerical Senior Administrative Services Officer 10/21/24 Rehabilitation Technician Relationship Specialty Start Date End Date Adama Mendoza MD [address] [place] [address] 66970 PCP - General Family Medicine 10/31/16 Claude Cardenas APRN.MICROSOFT DEVELOPER [address] [place] [address] Industrial Machinery Mechanic Family Medicine 09/10/24 Danita Meraz PA-C [address] [place] [address] Industrial Machinery Mechanic Family Medicine 09/10/24 Soto Valderrama MD [address] [place], [place] [phone] Referring Internal Medicine 10/20/24 Adama Mendoza MD [address] [place] [address] 22215 Home Care Provider Family Medicine 10/20/24 Brianna Doe, office helper clerical Senior Administrative Services Officer 10/21/24 11/18/24 Rehabilitation Technician Relationship Specialty Start Date End Date Adama Mendoza MD [address] [place] [address] 00585 PCP - General Family Medicine 10/31/16 Claude Cardenas APRN.MICROSOFT DEVELOPER [address] [place] [address] Industrial Machinery Mechanic Family Medicine 09/10/24 Danita Meraz PA-C [address] [place], [place] 218338 [phone] Industrial Machinery Mechanic Family Medicine 09/10/24 Soto Valderrama MD [address] [place], [place] [phone] Referring Internal Medicine 10/20/24 Adama Mendoza MD [address] [place] [address] Home Care Provider Family Medicine 10/20/24 Rehabilitation Technician Relationship Specialty Start Date End Date Adama Mendoza MD [address] [place] [address] PCP - General Family Medicine 10/31/16 Claude Cardenas APRN.MICROSOFT DEVELOPER [address] [place] [address] Industrial Machinery Mechanic Family [facility] 09/10/24 Danita Meraz PA-C [address] [place] [address] 27161 Industrial Machinery Mechanic Family Medicine 09/10/24 Soto Valderrama MD [address] [place] [address] 66012 Referring Internal Medicine 10/20/24 Adama Mendoza MD [address] [place] [address] Home Care Provider Family Medicine 10/20/24 Rehabilitation Technician Relationship Specialty Start Date End Date Adama Mendoza MD [address] [place] [address] PCP - General Family Medicine 10/31/16 Claude Cardenas APRN.MICROSOFT DEVELOPER [address] [place] [address] Industrial Machinery Mechanic Family Medicine 09/10/24 Danita Meraz PA-C [address] [place] [address] Industrial Machinery Mechanic Family Medicine 09/10/24 Soto Valderrama MD [address] [place], [place] [phone] Referring Internal Medicine 10/20/24 Adama Mendoza MD [address] [place] [address] Home Care Provider Family Medicine 10/20/24 Rehabilitation Technician Relationship Specialty Start Date End Date Adama Mendoza MD [address] [place] [address]153 PCP - General Family Medicine 10/31/16 Claude Cardenas APRN.[facility] [address] [place] [address] Industrial Machinery Mechanic Family Medicine 09/10/24 Danita Meraz PA-C [address] [place] [address]23 Industrial Machinery Mechanic Family Medicine 09/10/24 Soto Valderrama MD [address] [place], [place] [phone] Referring Internal Medicine 10/20/24 Adama Mendoza MD [address] [place] [address] Home Care Provider Family Medicine 10/20/24 Rehabilitation Technician Relationship Specialty Start Date End Date Adama Mendoza MD [address] [place] [address] PCP - General Family Medicine 10/31/16 Claude Cardenas APRN.MICROSOFT DEVELOPER [address] [place] [address] Industrial Machinery Mechanic Family Medicine 09/10/24 Danita Meraz PA-C [address] [place] [address] Industrial Machinery Mechanic Family Medicine 09/10/24 Soto Valderrama MD [address] [place], [place] [phone] Referring Internal Medicine 10/20/24 Adama Mendoza MD [address] [place] [address] 20236 Home Care Provider Family Medicine 10/20/24 Rehabilitation Technician Relationship Specialty Start Date End Date Adama Mendoza MD [address] [place] [address] 68667 PCP - General Family Medicine 10/31/16 Claude Cardenas APRN.MICROSOFT DEVELOPER [address] [place] [address] Industrial Machinery Mechanic Family Medicine 09/10/24 Danita Meraz PA-C [facility] [place] [address] Industrial Machinery Mechanic Family Medicine 09/10/24 Soto Valderrama MD [address] [place], [place] [phone] Referring Internal Medicine 10/20/24 Adama Mendoza MD [address] [place] [address] Home Care Provider Family Medicine 10/20/24 Rehabilitation Technician Relationship Specialty Start Date End Date Adama Mendoza MD [address] [place] [address] PCP - General Family Medicine 10/31/16 Claude Cardenas APRN.MICROSOFT DEVELOPER [address] [place] [address] Industrial Machinery Mechanic Family Medicine 09/10/24 Danita Meraz PA-C [address] [place] [address] Industrial Machinery Mechanic Family [facility] 09/10/24 Soto Valderrama MD [address] [place], [place] [phone] Referring Internal Medicine 10/20/24 Adama Mendoza MD [address] [place] [address] Home Care Provider Family Medicine 10/20/24 Rehabilitation Technician Relationship Specialty Start Date End Date Claude Cardenas APRN.MICROSOFT DEVELOPER [facility] [place] [address] Industrial Machinery Mechanic Family Medicine 09/10/24 Danita Meraz PA-C [address] [place] [address] Industrial Machinery Mechanic Family Medicine 09/10/24 Soto Valderrama MD [address] [place], [place] [phone] Referring Internal Medicine 10/20/24 Adama Mendoza MD [address] [place] [address] Home Care Provider Family Medicine 10/20/24 Rehabilitation Technician Relationship Specialty Start Date End Date Adama Mendoza MD [address] [place] [address] PCP - General Family Medicine 01/09/25 Claude Cardenas APRN.MICROSOFT DEVELOPER [address] [place] [address]40 Industrial Machinery Mechanic Family Medicine 09/10/24 Danita Meraz PA-C [address] [place] [address] Industrial Machinery Mechanic Family Medicine 09/10/24 Soto Valderrama MD [address] [place] [address] Referring Internal Medicine 10/20/24 Adama Mendoza MD [address] [place] [address] 22911 Home Care Provider Family Medicine 10/20/24 Rehabilitation Technician Relationship Specialty Start Date End Date Adama Mendoza MD [address] [place] [address] PCP - General Family Medicine 01/09/25 Claude Cardenas APRN.MICROSOFT DEVELOPER [address] [place] [address]698 Industrial Machinery Mechanic Family Medicine 09/10/24 Danita Meraz PA-C [address] [place] [address] Industrial Machinery Mechanic Family Medicine 09/10/24 Soto Valderrama MD [address] [place] [address] Referring Internal Medicine 10/20/24 Adama Mendoza MD [address] [place] [address] Home Care Provider Family Medicine 10/20/24 Rehabilitation Technician Relationship Specialty Start Date End Date Adama Mendoza MD [address] [place] [address] PCP - General Family Medicine 01/09/25 Claude Cardenas APRN.MICROSOFT DEVELOPER [address] [place] [address] 45[address] Industrial Machinery Mechanic Family Medicine 09/10/24 Danita Meraz PA-C [address] [place] [id number] Industrial Machinery Mechanic Family Medicine 09/10/24 Soto Valderrama MD [address] [place] [address] Referring Internal Medicine 10/20/24 Adama Mendoza MD [address] [place] [address] Home Care Provider Family Medicine 10/20/24 Rehabilitation Technician Relationship Specialty Start Date End Date Adama Mendoza MD [address] [place] [address] PCP - General Family Medicine 01/09/25 Claude Cardenas APRN.MI[employer]OS[employer] DEVELOPER [address] [place] [address] Industrial Machinery Mechanic Family Medicine 09/10/24 Danita Meraz PA-C [address] [place] [address] Industrial Machinery Mechanic Family Medicine 09/10/24 Soto Valderrama MD [address] [place] [address] [phone] Referring Internal Medicine 10/20/24 Adama Mendoza MD [address] [place] [address] Home Care Provider Family Medicine 10/20/24 Rehabilitation Technician Relationship Specialty Start Date End Date Adama Mendoza MD [address] [place] [id number] PCP - General Family Medicine 01/09/25 Soto Valderrama MD [address] [place] [address] [phone] Referring Internal Medicine 10/20/24 Adama Mendoza MD [address] [place] [address] Home Care Provider Family Medicine 10/20/24 Claude Cardenas APRN.CNP [address] [place] [address] Industrial Machinery Mechanic Family Medicine 03/06/25 Danita Meraz PA-C [address] [place] [address] Industrial Machinery Mechanic Family Medicine 03/06/25 Rehabilitation Technician Relationship Specialty Start Date End Date Adama Mendoza MD [address] [place] [address] PCP - General Family Medicine 01/09/25 Soto Valderrama MD [address] [place] [address] Referring Internal Medicine 10/20/24 Adama Mendoza MD [address] [place] [address] Home Care Provider Family Medicine 10/20/24 Claude Cardenas APRN.MICROSOFT DEVELOPER [address] [place] [address] Industrial Machinery Mechanic Family Medicine 03/06/25 Danita Meraz PA-C [address] [place] [address] Industrial Machinery Mechanic Family Medicine 03/06/25 Rehabilitation Technician Relationship Specialty Start Date End Date Adama Mendoza MD [address] [place] [address] PCP - General Family Medicine 01/09/25 Soto Valderraam MD [address] [place] [address] Referring Internal Medicine 10/20/24 Adama Mendoza MD [facility] [place] [address] Home Care Provider Family Medicine 10/20/24 Claude Cardenas APRN.MICROSOFT DEVELOPER [facility] [place] [address] Industrial Machinery Mechanic Family Medicine 03/06/25 Danita Meraz PA-C [address] [place] [address] Industrial Machinery Mechanic Family [facility] 03/06/25 Rehabilitation Technician Relationship Specialty Start Date End Date Adama Mendoza MD [address] [place] [address] PCP - General Family Medicine 01/09/25 Soto Valderrama MD [address] [place], [place] [phone] Referring Internal Medicine 10/20/24 Adama Mendoza MD [address] [place] [address] Home Care Provider Family Medicine 10/20/24 Claude Cardenas APRN.CNP [address] [place] [address] Industrial Machinery Mechanic Family [facility] 03/06/25 Danita Meraz PA-C [address] [place] [address] Industrial Machinery Mechanic Family [facility] 03/06/25 Rehabilitation Technician Relationship Specialty Start Date End Date Adama Mendoza MD [address] [place] [address] PCP - General Family Medicine 01/09/25 Soto Valderrama MD [address] [place], [place] [phone] Referring Internal Medicine 10/20/24 Adama Mendoza MD [address] [place] [address] Home Care Provider Family Medicine 10/20/24 Claude Cardenas APRN.MICROSOFT DEVELOPER [facility] [place] [address] Industrial Machinery Mechanic Family Medicine 03/06/25 Danita Meraz PA-C [facility] [place] [address] Industrial Machinery Mechanic Family Medicine 03/06/25 Rehabilitation Technician Relationship Specialty Start Date End Date Adama Mendoza MD [address] [place] [address] PCP - General Family Medicine 01/09/25 Soto Valderrama MD [address] [place] [address] [phone] Referring Internal Medicine 10/20/24 Adama Mendoza MD [address] [place] [address] Home Care Provider Family Medicine 10/20/24 Claude Cardenas APRN.MICROSOFT DEVELOPER [address] [place] [address] Industrial Machinery Mechanic Family Medicine 03/06/25 Danita Meraz PA-C [facility] [place] [address] Industrial Machinery Mechanic Family Medicine 03/06/25 Rehabilitation Technician Relationship Specialty Start Date End Date Adama Mendoza MD [address] [place] [address] PCP - General Family Medicine 01/09/25 Soto Valderrama MD [address] [place] [address] Referring Internal Medicine 10/20/24 Adama Mendoza MD [address] [place] [address] Home Care Provider Family Medicine 10/20/24 Claude Cardenas APRN.MICROSOFT DEVELOPER [address] [place] [address] Industrial Machinery Mechanic Family Medicine 03/06/25 Danita Meraz PA-C [address] [place] [address] Industrial Machinery Mechanic Family Medicine 03/06/25 Rehabilitation Technician Relationship Specialty Start Date End Date Adama Mendoza MD [address] [place] [phone] PCP - General Family Medicine 01/09/25 Soto Valderrama MD [address] [place] [address] Referring Internal Medicine 10/20/24 Adama Mendoza MD [address] [place] [address] Home Care Provider Family Medicine 10/20/24 Claude Cardenas APRN.MICROSOFT DEVELOPER [address] [place] [address] Industrial Machinery Mechanic Family Medicine 03/06/25 Danita Meraz PA-C [facility] [place] [address] Industrial Machinery Mechanic Family Medicine 03/06/25 Team Status: Active Member [...] BE BASED ON THE PRIMARY CLINICAL RECORDS. [employer] provides no warranty or guarantee of the accuracy or completeness of information in this document.
--- NOTE | 2025-10-01 02:47 | PCM.HP.STD ---
HPI - General General Date of Admission: 10/01/25 Chief Complaint: Confusion HPI Narrative NARA DIAZ, is a 80 M who presents new onset nonproductive cough and worsening confusion. Patient has medical history of dementia, CVA and stents who he lives at home with his , he is partly dependent on her with his activities of living. He was febrile today 101.6 at home and he developed a dry cough and states that he was more confused than his baseline and he became weaker than usual. She also noted that he has some wheezing when he breathes. In the ED his vitals were within normal limits. He did not require oxygen at rest. Chest x-ray showed scattered bilateral airspace opacities concerning for multifocal pneumonia, although looking at his x-ray from 2023 no much difference can be appreciated. CBC within normal limits except for elevated neutrophil/lymphocyte ratio. Creatinine 1.4 close to his baseline Lactic acid 2.2. UA clear Influenza A+ EKG unchanged from before, no ischemia. Patient will be admitted to the hospital for management of generalized debility from influenza A, x-ray showing pneumonia but he is not tachypneic or desaturating. No sepsis PFSH Medical History Obesity Old inferior wall myocardial infarction OAB (overactive bladder) Obstructive sleep apnea Rosacea Actinic keratoses Anemia Abdominal aortic aneurysm (AAA) Atherosclerotic heart disease of [place] coronary artery without angina pectoris Ischemic cerebrovascular accident (CVA) (02/10/18) Essential (primary) hypertension Dementia GERD (gastroesophageal reflux disease) HLD (hyperlipidemia) Prostate cancer Home Medications ?Medication ?Instructions ?Recorded ?Last Taken ?Type multivitamin 1 tab PO DAILY vitamin 10/04/13 02/09/18 History metoprolol succinate 50 mg 75 mg PO DAILY bp 02/10/18 10/15/20 History tablet,extended release 24 hr pravastatin 80 mg tablet 80 mg PO QHS cholesterol 02/10/18 02/09/18 History losartan 100 mg tablet 100 mg PO DAILY bp ##0 02/12/18 10/15/20 Rx solifenacin 5 mg tablet 5 mg PO DAILY overactive bladder 08/17/20 Unknown History amlodipine 10 mg tablet 10 mg PO DAILY bp 09/11/20 10/15/20 History cinnamon bark 500 mg capsule 500 mg PO DAILY supplement 09/11/20 Unknown History donepezil 10 mg tablet 10 mg PO QHS memory 09/11/20 Unknown History nitroglycerin 0.4 mg sublingual 0.4 mg sublingual Q5-15M PRN 09/11/20 Unknown History tablet Cardiac/Chest Pain pantoprazole 40 mg tablet,delayed 40 mg PO DAILY stomach 09/11/20 Unknown History release alpha lipoic acid 200 mg capsule 200 mg PO DAILY see 09/12/21 Unknown History ascorbate calcium (vitamin C) 500 500 mg PO DAILY supplement 09/12/21 Unknown History mg tablet cholecalciferol (vitamin D3) 25 25 mcg PO DAILY supplement 04/28/24 Unknown History mcg (1,000 unit) capsule aspirin 81 mg tablet,delayed 81 mg PO DAILY blood thinner 06/08/24 Unknown History release memantine 10 mg tablet 10 mg PO BID memory 06/08/24 Unknown History quetiapine 25 mg tablet (Seroquel) 25 mg PO QHS #30 tabs 06/13/24 Unknown Rx Allergy/AdvReac Type Severity Reaction Status Date / Time atorvastatin (From Lipitor) Allergy PT UNSURE Verified 09/30/25 22:39 OF REACTION azithromycin (From Zithromax) Allergy Itching Verified 09/30/25 22:39 Beta-Blockers Allergy NEEDS Verified 09/30/25 22:39 (Beta-Adrenergic Bloc FOLLOW-UP sildenafil (From Viagra) Allergy PT UNSURE Verified 09/30/25 22:39 OF REACTION Ntwcxje-Qzl-Qyr Reductase Allergy Other Verified 09/30/25 22:39 Inhibitor ezetimibe (From Zetia) AdvReac PT UNSURE Verified 09/30/25 22:39 OF REACTION Family History Sister CAD (coronary artery disease) Mother CAD (coronary artery disease) Father Colon cancer Brother CAD (coronary artery disease) Surgical History History of left heart catheterization (10/15/20) History of herniorrhaphy History of coronary artery stent placement (10/07/13) Social History Smoking Status: Current every day smoker tobacco type: cigarettes alcohol intake: never substance use type: does not use caffeine: Yes Type: coffee Number of servings: 3 ROS Review of Systems ROS Unobtainable: due to mental condition and other Details: Dementia Patient's Goals Of Care . What would you like to achieve or improve as a result of your hospital stay?: Get better Vital Signs Vital Signs Vital Signs: 09/30/25 22:38 09/30/25 23:40 09/30/25 23:43 Temperature 99.7 F H 99 F Temperature Source Oral Oral Pulse Rate 91 79 Respiratory Rate 14 18 Respiratory Effort Respiratory Depth Respiratory Pattern Blood Pressure 148/70 H 123/63 H Blood Pressure Mean 96 83 Pulse Ox 96 95 Oxygen Delivery Method Room Air Room Air Room Air 10/01/25 00:00 10/01/25 00:15 10/01/25 01:00 Temperature 98.1 F 98.1 F Temperature Source Oral Oral Pulse Rate 79 77 Respiratory Rate 20 H 17 Respiratory Effort Normal Respiratory Depth Normal Respiratory Pattern Normal Blood Pressure 132/65 H 144/64 H Blood Pressure Mean 87 90 Pulse Ox 95 99 Oxygen Delivery Method Room Air Room Air Room Air 10/01/25 01:13 10/01/25 02:00 Temperature 98.1 F Temperature Source Pulse Rate 80 78 Respiratory Rate 20 H 16 Respiratory Effort Respiratory Depth Respiratory Pattern Blood Pressure 144/64 H 132/78 H Blood Pressure Mean 90 96 Pulse Ox 98 97 Oxygen Delivery Method Room Air Weight Weight: 91.127 kg Body Mass Index (BMI) 27.2 Physical Exam Const alert; Negative for oriented x3 General Appearance: cooperative HEENT normocephalic and head/scalp atraumatic Eyes EOMs intact bilaterally Resp Resp Narrative: Bilateral end expiratory wheezing Results Lab / Micro Data 09/30/25 23:45 09/30/25 23:45 Labs: Laboratory Results - last 24 hr 09/30/25 23:45: WBC 11.0, RBC 4.74, Hgb 14.0, Hct 41.6, MCV 87.8, MCH 29.5, MCHC 33.7, RDW Std Deviation 43.3, RDW Coeff of Sami 13.4, Plt Count 204, MPV 10.5, Immature Gran % (Auto) 0.500, Neut % (Auto) 85.9 H, Lymph % (Auto) 5.0 L, [place] % (Auto) 7.6, Eos % (Auto) 0.5, Baso % (Auto) 0.5, Absolute Neuts (auto) 9.5 H, Absolute Lymphs (auto) 0.55 L, Nucleated RBC % 0, Sodium 143, Potassium 4.1, Chloride 106, Carbon Dioxide 25.1, Anion Gap 11, BUN 19, Creatinine 1.40 H, Estim Creat Clear Calc 44.65 L, Est GFR (MDRD) Non-Af 50 L, BUN/Creatinine Ratio 13.9, Glucose 130 H, Lactic Acid 2.2 H*, Calcium 9.7, Total Bilirubin 0.34, AST 46 H, ALT 50 H, Alkaline Phosphatase 97, Total Protein 7.2, Albumin 3.9, Globulin 3.3, Albumin/Globulin Ratio 1.2 10/01/25 01:16: Urine Color Yellow, Urine Clarity Clear, Urine pH 7.0, Ur Specific Sp[place]y 1.010, Urine Protein 100 H, Urine Glucose (UA) Normal, Urine Ketones Negative, Urine Occult Blood Negative, Urine Nitrite Negative, Urine Bilirubin Negative, Urine Urobilinogen Normal, Ur Leukocyte Esterase Negative, Urine RBC 0-5 SEEN, Urine WBC 0-5 SEEN, Ur Squamous Epith Cells 0 SEEN, Urine Bacteria 0 SEEN, Urine Mucus 1+ Micro: Microbiology 09/30/25 23:45 Mucosa - Nose SARS-CoV-2, Influenza & RSV (PCR) - Final Influenzae A Imaging Radiology Impression Chest X-Ray 09/30/25 23:55 IMPRESSION: Scattered bilateral airspace opacities concerning for multifocal pneumonia. Reading Location: [facility] Assessment & Plan Assessment/Plan (1) Influenza A: (2) Bilateral pulmonary infiltrates: (3) Dementia: QUALIFIERS: Dementia type: unspecified type Dementia behavioral disturbance: without behavioral disturbance Qualified Code(s): F03.90 - Unspecified dementia without behavioral disturbance (4) Lactic acidosis: (5) Atherosclerotic heart disease of [place] coronary artery without angina pectoris: QUALIFIERS: [place] vs. transplanted heart: [place] heart Qualified Code(s): I25.10 - Atherosclerotic heart disease of [place] coronary artery without angina pectoris (6) Essential (primary) hypertension: PLAN: Plan Admission to [facility] Tamiflu 75 mg x 1 followed by 30 mg twice daily, reduced for kidney function Rocephin and doxycycline for possible pneumonia. Although he is not hypoxemic, not tachypneic, x-ray looks the same from 2023 but current image reported as multifocal pneumonia PT OT Repeat lactic acid after fluid he received in the ED. No evidence of sepsis (creatinine around baseline, his confusion related to dementia with metabolic encephalopathy) Continue home medications for prior CVA/CAD: Aspirin, nitroglycerin, pravastatin. Continue medication for hypertension: Metoprolol, regimen and lisinopril Continue dementia medications donepezil, memantine and Seroquel Sepsis Attestation Sepsis Attestation: Sepsis Ruled Out Charges/Coding Visit Charges Inpatient E&M: 90035 Init Hosp L3
--- OUTSIDE RECORDS SUMMARY | 2025-10-01 02:52 | XMS RPT_ITS | CCD ---
Author Organization [facility] Care Team Providers Care Inspector Line Name Role Phone CASEY BRUSH Unavailable Unavailable SHAYE [place] Unavailable Unavailable CASEY BRUSH Unavailable Unavailable IM[facility] Unavailable Unavailable Adama Mendoza Unavailable Unavailable CASEY BRUSH Unavailable Unavailable CASEY BRUHS Unavailable Unavailable Adama Mendoza Unavailable Unavailable Adama [...] Adama Mendoza MD Primary Care Provider Timothy SOLID PROPELLANT PROCESSORClaude MIGUEL Unavailable Danita Meraz PA-C Unavailable Adama Mendoza Referring Unavailable Cayden Morton Attending Unavailable Danay, Adama Primary Care Unavailable Danay, Adama Primary Care Unavailable Fish Burnette Attending Unavailable Danay LANTIGUA, Dr. Galan Primary Care Physician Danay LANTIGUA, Dr. Galan Referring Provider Dr. Cayden Morton MD Attending Physician DANDY FAITH Referring Unavailable DANAY, ADAMA A [...] Care Unavailable MARGARET ARDON Referring Unavailable DANAY, AADMA A Primary Care Unavailable GAUDENCIO ALLEN Attending [...] ezetimibe Drug Allergy 8 Mental Status Change [facility] HMG-CoA Reductase Inhibitors (statins) (1 source) atorvastatin Drug Allergy 5 Intolerance [facility] Macrolides (antibiotic) (1 source) Azithromycin Drug Allergy 5 Itching [facility] sildenafil (1 source) sildenafil Drug Allergy 5 Unknown [facility] (20 sources) atorvastatin; Translations: [ATORVASTATIN] Drug Allergy 5 Intolerance [facility] Repository (20 sources) azithromycin; Translations: [AZITHROMYCIN] Drug Allergy 5 Itching [facility] (20 sources) ezetimibe; Translations: [EZETIMIBE] Drug Allergy 8 Mental Status Change [facility] Comment on above: mental status change (20 sources) sildenafil; Translations: [SILDENAFIL] Drug Allergy 5 Unknown [facility] (2 sources) OTHER; Translations: [OTHER] Propensity to adverse reactions (disorder) 5 [facility] (20 sources) BETA-SHRAVAN S [Other] Propensity to adverse reactions 5 Unknown [facility] Work Phone: (4 sources) Adrenergic Beta-Antagonists Allergy to substance 2 NEEDS FOLLOW-UP [facility] (4 sources) Bgsnzwu-Yvd-Pnn Reductase Inhibitor Allergy to substance 2 Other [facility] (20 sources) beta-Blocking agent; Translations: [BETA-BLOCKERS (BETA-ADRENERGIC BLOCKING AGTS)] Propensity to adverse reactions to drug 4 Unknown [facility] Work Phone: (1 source) Adrenergic Beta-Antagonists Drug allergy (disorder) 5 [facility] Rep[facility] (1 source) Ddqgakq-Nod-Zxa Reductase Inhibitor Drug allergy (disorder) 5 [facility] Rep[facility] Medications Current Medications Medication Drug Class(es) [...] hydrochloride 10 mg oral tablet (20 sources) F-hkrdwh-A-aspartat e Receptor Antagonist Start: 4 End: 5 [...] disease (20 sources) Atherosclerotic heart disease of [place] coronary artery without angina pectoris; Translations: [Recurrent [...] (20 sources) Patient encounter status; Translations: [Other [facility] (current) drug therapy] Onset: 11-25-2017 12-14-2019 Episodic Other aftercare (1 source) 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 Cayden Morton MD [...] demonstrated distally occluded right coronary artery with lehf-cp-zhfcf collaterals, left anterior descending artery with 50% [...] Intake Visit Reasons: 1 y fu w INFORMATICA per INFORMATICA Globe Tester Required: No Accompanied by: Significant Other Is patient in pain?: No Allergies atorvastatin (From Lipitor) Allergy (Verified 06/23/25 14:02) PT UNSURE OF REACTION azithromycin (From Zithromax) Allergy (Verified 06/23/25 14:02) Itching Beta-Blockers (Beta-Adrenergic Bloc Allergy (Verified 06/23/25 14:02) NEEDS FOLLOW-UP sildenafil (From Viagra) Allergy (Verified 06/23/25 14:02) PT UNSURE OF REACTION Llppzsj-EOQ-XoS Reductase Inhibitor (Oajddjr-Llx-Yzj Reductase Inhibitor) Allergy (Verified 06/23/25 14:02) Other [...] aortic aneurysm (AAA) Atherosclerotic heart disease of [place] coronary artery without angina pectoris Ischemic cerebrovascular accident (CVA) (02/10/18) Essential (primary) hypertension Dementia GERD (gastroesophageal reflux disease) HLD (hyperlipidemia) Prostate cancer Surgical History History of left heart catheterization (10/15/20) History of herniorrhaphy History of (more content not included)... Normal [facility] CNOVon 06-02-2025 CNOV Normal [facility] CNPTOUTREACHon 06-01-2025 CNPTOUTREACH Normal [facility] VITAMIN B6/PYRIDOXINon 04-13 VITAMIN B6 33.9 nmol/L Normal 20.0-125.0 [facility] Comment on above: Order Comment: Speci men Type: BLOOD SPECIMENOrdering Facility: [facility] Address: [address] [place] [address] Result Comment: INTE RPRETIVE INFORMATION: Vitamin B6 (Pyridoxal 5-Phosphate)Pyridoxal 5'-phosphate measured in a specimen collected followingan 8-hour or overnight fast accurately indicates vitamin I3bqkclptelsp status. Non-fasting specimen concentration reflectsrecent vitamin intake.This test was developed and its performance characteristicsdetermined by [facility]. It has not been cleared orapproved by the [place] Food and Drug Administration. This test wasperformed in a CLIA certified laboratory and is intended forclinical purposes.Performed By: [facility] [place], [place] [address]Smslafuqbw Director: Kenan Brunner MD, PhDCLIA Number: [id number] Performed By: #### V ITB6 ####[employer] Capital GroupIA [id number] [place] [address] [facility] 2024 [facility] Normal [facility] Urinalysis complete panel (U )on 04-12-2025 Bacteria LM.HPF (Urine sed) [#/Area] Negative Normal Negative [facility] Comment on above: Order Comment: Speci men Type: URINE SPECIMENOrdering Facility: [facility] Address: [address] [place] [address] Performed By: #### 2 4356-8 ####[facility] LABCLIA [id number] [address] [place] [address] [place] Bilirubin Ql (U) Negative Normal Negative [facility] Comment on above: Order Comment: Speci men Type: URINE SPECIMENOrdering Facility: [facility] Address: [address] [place] [address] Performed By: #### 2 4356-8 ####[facility] LABCLIA [id number] [address], [facility]95 [place] Clarity (Unsp spec) Clear Normal Clear [facility] Comment on above: Order Comment: Speci men Type: URINE SPECIMENOrdering Facility: [facility] Address: [address] [place] [address] Performed By: #### 2 4356-8 ####[facility] LABCLIA [id number] [address], [facility] [place] Color (U) Yellow Normal Yellow [facility] Comment on above: Order Comment: Speci men Type: URINE SPECIMENOrdering Facility: [facility] Address: [address] [place] [address] Performed By: #### 2 4356-8 ####[facility] LABCLIA [id number] [address] [place] [address] [place] Epithelial cells LM.HPF (Urine sed) [#/Area] None Seen Normal [facility] Comment on above: Order Comment: Speci men Type: URINE SPECIMENOrdering Facility: [facility] Address: [address] [place] [address] Performed By: #### 2 4356-8 ####[facility] LABCLIA [id number] [place] [address] [place] Glucose Test strip (U) [Mass/Vol] Negative Normal Negative [facility] Comment on above: Order Comment: Speci men Type: URINE SPECIMENOrdering Facility: [facility] Address: [address] [place] [address] Performed By: #### 2 4356-8 ####[facility] LABCLIA [id number] [address], [facility]95 [place] Hemoglobin Ql (U) Negative Normal Negative [facility] Comment on above: Order Comment: Speci men Type: URINE SPECIMENOrdering Facility: [facility] Address: [address] [place] [address] Performed By: #### 2 4356-8 ####[facility] LABCLIA [id number] [address], [facility] [place] Hyaline casts (Urine sed) [#/Area] 0 /[LPF] Normal 0 /LPF [facility] Comment on above: Order Comment: Speci men Type: URINE SPECIMENOrdering Facility: [facility] Address: [address] [place] [address] Performed By: #### 2 4356-8 ####[facility] LABCLIA [id number] [facility] [address], [facility]95 [place] Ketones Ql (U) Negative Normal Negative [facility] Comment on above: Order Comment: Speci men Type: URINE SPECIMENOrdering Facility: [facility] Address: [address] [place] [address] Performed By: #### 2 4356-8 ####[facility] LABCLIA [id number] [address], [facility]95 [place] Leukocyte esterase Test strip Ql (U) Negative Normal Negative [facility] Comment on above: Order Comment: Speci men Type: URINE SPECIMENOrdering Facility: [facility] Address: [address] [place] [address] Performed By: #### 2 4356-8 ####[facility] LABCLIA [id number] [address], [facility]95 [place] Nitrite Ql (U) Negative Normal Negative [facility] Comment on above: Order Comment: Speci men Type: URINE SPECIMENOrdering Facility: [facility] Address: [address] [place] [address] Performed By: #### 2 4356-8 ####[facility] LABCLIA [id number] [place] [address] [place] pH (U) 6.0 [pH] Normal <8.5 [facility] Comment on above: Order Comment: Speci men Type: URINE SPECIMENOrdering Facility: [facility] Address: [address] [place] [address] Performed By: #### 2 4356-8 ####[facility] LABIA [id number] [place] [address] [place] Protein (U) [Mass/Vol] 1+ Abnormal Negative Cl [facility] Comment on above: Order Comment: Speci men Type: URINE SPECIMENOrdering Facility: [facility] Address: [address] [place] [address] Performed By: #### 2 4356-8 ####[facility] LABIA [id number] [place] [address] [place] RBC LM.HPF (Urine sed) [#/Area] 0-2 /HPF Normal 0-2 /HPF [facility] Comment on above: Order Comment: Speci men Type: URINE SPECIMENOrdering Facility: [facility] Address: [address] [place] [address] Performed By: #### 2 4356-8 ####[facility] LABIA [id number] [place] [address] [place] Specific gravity (U) [Rel density] 1.021 Normal 1.005-1.03 0 [facility] Comment on above: Order Comment: Speci men Type: URINE SPECIMENOrdering Facility: [facility] Address: [address] [place] [address] Performed By: #### 2 4356-8 ####[facility]ITAL[facility] [id number] [place] [address] [place] Urobilinogen Ql (U) 0.2 EU/dL Normal 0.2-1.0 EU/dL [facility] Comment on above: Order Comment: Speci men Type: URINE SPECIMENOrdering Facility: [facility] Address: [address] [place] [address] Performed By: #### 2 4356-8 ####[facility] [id number] [place] [address] [place] WBC LM.HPF (Urine sed) [#/Area] 0-5 /HPF Normal 0-5 /HPF [facility] Comment on above: Order Comment: Speci men Type: URINE SPECIMENOrdering Facility: [facility] Address: [address] [place] [address] Performed By: #### 2 4356-8 ####[facility] [id number] [place] [address] [place] CBC W Auto Differential pane l (Bld)on 04-11-2025 Basophils (Bld) [#/Vol] 0.04 10*3/uL [facility] Basophils/100 WBC (Bld) 0.5 % [facility] Differential cell count method Nom (Bld) Auto [facility] Eosinophils (Bld) [#/Vol] 0.2 10*3/uL [facility] Eosinophils/100 WBC (Bld) 2.3 % [facility] Erythrocyte distribution width (RBC) [Ratio] 13.2 % 11.5 - 15.0 % [facility] Hematocrit (Bld) [Volume fraction] 41.7 % 39.0 - 51.0 % [facility] Hemoglobin (Bld) [Mass/Vol] 14 g/dL 13.0 - 17.0 g/dL [facility] Immature granulocytes (Bld) [#/Vol] 0.03 10*3/uL [facility] Immature granulocytes/100 WBC (Bld) 0.4 % [facility] Interpretation and review of laboratory results Abnormal [facility] Lymphocytes (Bld) [#/Vol] 2.21 10*3/uL [facility] Lymphocytes/100 WBC (Bld) 25.8 % [facility] MCH (RBC) [Entitic mass] 29.5 pg 26.0 - 34.0 pg [facility] MCHC (RBC) [Mass/Vol] 33.6 g/dL 30.5 - 36.0 g/dL [facility] MCV (RBC) [Entitic vol] 87.8 fL 80.0 - 100.0 fL [facility] Monocytes (Bld) [#/Vol] 0.99 10*3/uL High [facility] Monocytes/100 WBC (Bld) 11.6 % [facility] Neutrophils (Bld) [#/Vol] 5.08 10*3/uL [facility] Neutrophils/100 WBC (Bld) 59.4 % [facility] Nucleated RBC (Bld) [#/Vol] [facility] Nucleated RBC/100 WBC (Bld) [Ratio] 0 % /100 WBC [facility] Platelet mean volume (Bld) [Entitic vol] 10.5 fL 9.0 - 12.7 fL [facility] Platelets (Bld) [#/Vol] 275 10*3/uL [facility] RBC (Bld) [#/Vol] 4.75 10*6/uL 4.20 - 6.00 m/uL [facility] WBC (Bld) [#/Vol] 8.55 10*3/uL [facility] Basophils (Bld) [#/Vol] 0.04 10*3/uL Normal <0.11 [facility] Comment on above: Order Comment: Speci men Type: BLOOD SPECIMENOrdering Facility: [facility] Address: [address] [place] [address] Performed By: #### 5 7021-8 ####[facility] LABCLIA [id number] [address] [place] Basophils/100 WBC (Bld) 0.5 % Normal [facility] Comment on above: Order Comment: Speci men Type: BLOOD SPECIMENOrdering Facility: [facility] Address: [address] [place] [address] Performed By: #### 5 7021-8 ####[facility] LABCLIA [id number] [place] [address] [place] Differential cell count method Nom (Bld) Auto Normal [facility] Comment on above: Order Comment: Speci men Type: BLOOD SPECIMENOrdering Facility: [facility] Address: [address] [place] [address] Performed By: #### 5 7021-8 ####[facility] LABCLIA [id number] [place] [address] [place] Eosinophils (Bld) [#/Vol] 0.20 10*3/uL Normal <0.46 [facility] Comment on above: Order Comment: Speci men Type: BLOOD SPECIMENOrdering Facility: [facility] Address: [address] [place] [address] Performed By: #### 5 7021-8 ####[facility] LABCLIA [id number] [place] [address] [place] Eosinophils/100 WBC (Bld) 2.3 % Normal [facility] Comment on above: Order Comment: Speci men Type: BLOOD SPECIMENOrdering Facility: [facility] Address: [address] [place] [address] Performed By: #### 5 7021-8 ####[facility] LABCLIA [id number] [place] [address] [place] Erythrocyte distribution width (RBC) [Ratio] 13.2 % Normal 11.5-15.0 [facility] Comment on above: Order Comment: Speci men Type: BLOOD SPECIMENOrdering Facility: [facility] Address: [address] [place] [address] Performed By: #### 5 7021-8 ####[facility] LABCLIA [id number] [place] [address] [place] Hematocrit (Bld) [Volume fraction] 41.7 % Normal 39.0-51.0 [facility] Comment on above: Order Comment: Speci men Type: BLOOD SPECIMENOrdering Facility: [facility] Address: [address] [place] [address] Performed By: #### 5 7021-8 ####[facility] LABIA [id number] [place] [address] [place] Hemoglobin (Bld) [Mass/Vol] 14.0 g/dL Normal 13.0-17.0 [facility] Comment on above: Order Comment: Speci men Type: BLOOD SPECIMENOrdering Facility: [facility] Address: [address] [place] [address] Performed By: #### 5 7021-8 ####[facility] LABIA [id number] [place] [address] [place] Immature granulocytes (Bld) [#/Vol] 0.03 10*3/uL Normal <0.10 [facility] Comment on above: Order Comment: Speci men Type: BLOOD SPECIMENOrdering Facility: [facility] Address: [address] [place] [address] Performed By: #### 5 7021-8 ####[facility] LABIA [id number] [place] [address] [place] Immature granulocytes/100 WBC (Bld) 0.4 % Normal [facility] Comment on above: Order Comment: Speci men Type: BLOOD SPECIMENOrdering Facility: [facility] Address: [address] [place] [address] Performed By: #### 5 7021-8 ####[facility] LABIA [id number] [place] [address] [place] Lymphocytes (Bld) [#/Vol] 2.21 10*3/uL Normal 1.00-4.00 [facility] Comment on above: Order Comment: Speci men Type: BLOOD SPECIMENOrdering Facility: [facility] Address: [address] [place] [address] Performed By: #### 5 7021-8 ####[facility] LABIA [id number] [place] [address] [place] Lymphocytes/100 WBC (Bld) 25.8 % Normal [facility] Comment on above: Order Comment: Speci men Type: BLOOD SPECIMENOrdering Facility: [facility] Address: [address] [place] [address] Performed By: #### 5 7021-8 ####[facility] [id number] [place] [address] [place] MCH (RBC) [Entitic mass] 29.5 pg Normal 26.0-34.0 [facility] Comment on above: Order Comment: Speci men Type: BLOOD SPECIMENOrdering Facility: [facility] Address: [address] [place] [address] Performed By: #### 5 7021-8 ####[facility] LABIA [id number] [place] [address] [place] MCHC (RBC) [Mass/Vol] 33.6 g/dL Normal 30.5-36.[address] [facility] Comment on above: Order Comment: Speci men Type: BLOOD SPECIMENOrdering Facility: [facility] Address: [address] [place] [address] Performed By: #### 5 7021-8 ####[facility] LABIA [id number] [place] [address] [place] MCV (RBC) [Entitic vol] 87.8 fL Normal 80.0-100.0 [facility] Comment on above: Order Comment: Speci men Type: BLOOD SPECIMENOrdering Facility: [facility] Address: [address] [place] [address] Performed By: #### 5 7021-8 ####[facility] LABCLIA [id number] [facility] [address], [place] [address] [place] Monocytes (Bld) [#/Vol] 0.99 10*3/uL High <0.87 [facility] Comment on above: Order Comment: Speci men Type: BLOOD SPECIMENOrdering Facility: [facility] Address: [address] [place] [address] Performed By: #### 5 7021-8 ####[facility] LABCLIA [id number] [facility] [address], [place] [address] [place] Monocytes/100 WBC (Bld) 11.6 % Normal [facility] Comment on above: Order Comment: Speci men Type: BLOOD SPECIMENOrdering Facility: [facility] Address: [address] [place] [address] Performed By: #### 5 7021-8 ####[facility] LABCLIA [id number] [address], [place] [address] [place] Neutrophils (Bld) [#/Vol] 5.08 10*3/uL Normal 1.45-7.50 [facility] Comment on above: Order Comment: Speci men Type: BLOOD SPECIMENOrdering Facility: [facility] Address: [address] [place] [address] Performed By: #### 5 7021-8 ####[facility] LABCLIA [id number] [place] [address] [place] Neutrophils/100 WBC (Bld) 59.4 % Normal [facility] Comment on above: Order Comment: Speci men Type: BLOOD SPECIMENOrdering Facility: [facility] Address: [address] [place] [address] Performed By: #### 5 7021-8 ####[facility] LABCLIA [id number] [facility] [address], [facility] [place] Nucleated RBC (Bld) [#/Vol] 10*3/uL Normal <0.01 [facility] Comment on above: Order Comment: Speci men Type: BLOOD SPECIMENOrdering Facility: [facility] Address: [address] [place] [address] Performed By: #### 5 7021-8 ####[facility] LABCLIA [id number] [address] [address] [place] Nucleated RBC/100 WBC (Bld) [Ratio] 0.0 /100 WBC Normal [facility] Comment on above: Order Comment: Speci men Type: BLOOD SPECIMENOrdering Facility: [facility] Address: [address] [place] [address] Performed By: #### 5 7021-8 ####[facility] LABCLIA [id number] [place] [address] [place] Platelet mean volume (Bld) [Entitic vol] 10.5 fL Normal 9.0-12.7 [facility] Comment on above: Order Comment: Speci men Type: BLOOD SPECIMENOrdering Facility: [facility] Address: [address] [place] [address] Performed By: #### 5 7021-8 ####[facility] LABIA [id number] [place] [address] [place] Platelets (Bld) [#/Vol] 275 10*3/uL Normal 150-400 [facility] Comment on above: Order Comment: Speci men Type: BLOOD SPECIMENOrdering Facility: [facility] Address: [address] [place] [address] Performed By: #### 5 7021-8 ####[facility] LABIA [id number] [place] [address] [place] RBC (Bld) [#/Vol] 4.75 10*6/uL Normal 4.20-6.00 [facility] Comment on above: Order Comment: Speci men Type: BLOOD SPECIMENOrdering Facility: [facility] Address: [address] [place] [address] Performed By: #### 5 7021-8 ####[facility] LABCLIA [id number] [place] [address] [place] WBC (Bld) [#/Vol] 8.55 10*3/uL Normal 3.70-11.00 [facility] Comment on above: Order Comment: Speci men Type: BLOOD SPECIMENOrdering Facility: [facility] Address: [address] [place] [address] Performed By: #### 5 7021-8 ####[facility] LABIA [id number] [place] [address] [place] CNOVon 04-11-2025 CNOV Normal [facility] Comprehensive metabolic 2000 panelon 04-11-2025 Albumin [Mass/Vol] 3.8 g/dL Low 3.9-4.9 [facility] Comment on above: Order Comment: Speci men Type: BLOOD SPECIMENOrdering Facility: [facility] Address: [address] [place] [address] Performed By: #### 2 4323-8, LIPNF, , 2132-06 ####[facility] LABIA [id number] [place] [address] [place] ALP [Catalytic activity/Vol] 83 U/L Normal 38-113 [facility] Comment on above: Order Comment: Speci men Type: BLOOD SPECIMENOrdering Facility: [facility] Address: [address] [place] [address] Performed By: #### 2 4323-8, LIPNF, , 2132-06 ####[facility] LABIA [id number] [place] [id number] [place] ALT [Catalytic activity/Vol] 13 U/L Normal 10-54 [facility] Comment on above: Order Comment: Speci men Type: BLOOD SPECIMENOrdering Facility: [facility] Address: [address] [place] [address] Performed By: #### 2 4323-8, LIPNF, , 2132-06 ####[facility] LABCLIA [id number] [place] [address] [place] Anion gap [Moles/Vol] 12 mmol/L Normal 8-[address] [facility] Comment on above: Order Comment: Speci men Type: BLOOD SPECIMENOrdering Facility: [facility] Address: [address] [place] [address] Performed By: #### 2 4323-8, LIPNF, , 2132-06 ####[facility] LABCLIA [id number] [place] [address] [place] AST [Catalytic activity/Vol] 18 U/L Normal 14-40 [facility] Comment on above: Order Comment: Speci men Type: BLOOD SPECIMENOrdering Facility: [facility] Address: [address] [place] [address] Performed By: #### 2 4323-8, LIPNF, , 2132-06 ####[facility] LABCLIA [id number] [place] [address] [place] Bilirubin [Mass/Vol] 0.3 mg/dL Normal 0.2-1.3 [facility] Comment on above: Order Comment: Speci men Type: BLOOD SPECIMENOrdering Facility: [facility] Address: [address] [place] [address] Performed By: #### 2 4323-8, LIPNF, , 2132-06 ####[facility] LABCLIA [id number] [place] [address] [place] Calcium [Mass/Vol] 9.5 mg/dL Normal 8.5-10.2 [facility] Comment on above: Order Comment: Speci men Type: BLOOD SPECIMENOrdering Facility: [facility] Address: [address] [place], [place] [address] Performed By: #### 2 4323-8, LIPNF, , 2132-06 ####[facility] LABIA [id number] [place] [address] [place] Chloride [Moles/Vol] 105 mmol/L Normal 98-107 [facility] Comment on above: Order Comment: Speci men Type: BLOOD SPECIMENOrdering Facility: [facility] Address: [address] [place] [address] Performed By: #### 2 4323-8, LIPNF, , 2132-06 ####[facility] LABIA [id number] [place] [address] [place] CO2 [Moles/Vol] 24 mmol/L Normal 22-30 [facility] Comment on above: Order Comment: Speci men Type: BLOOD SPECIMENOrdering Facility: [facility] Address: [address] [place] [address] Performed By: #### 2 4323-8, LIPNF, , 2132-06 ####[facility] [id number] [place] [address] [place] Creatinine [Mass/Vol] 1.17 mg/dL Normal 0.73-1.[address] [facility] Comment on above: Order Comment: Speci men Type: BLOOD SPECIMENOrdering Facility: [facility] Address: [address] [place] [address] Performed By: #### 2 4323-8, LIPNF, , 2132-06 ####[facility] LABIA [id number] [place] [address] [place] Creatinine and Glomerular filtration rate.predicted panel (S/P/Bld) 62 mL/min/1.73m??? Normal >=60 [facility] Comment on above: Order Comment: Speci men Type: BLOOD SPECIMENOrdering Facility: [facility] Address: [address] [place] [address] Result Comment: Carlita mated Glomerular Filtration Rate [...] #### 2 4323-8, LIPMAGDY, , 2132-06 ####[facility] LABIA [id number] [address] [address] [place] Glucose [Mass/Vol] 93 mg/dL Normal 74-99 [facility] Comment on above: Order Comment: Speci men Type: BLOOD SPECIMENOrdering Facility: [facility] Address: [address] [place] [address] Result Comment: The [place] Diabetes Association (ADA) provides guidance for cutoff [...] Standards of Medical Care in Diabetes 2016, [place] [employer] Association. Diabetes Care. 2016.39(Suppl 1). Performed By: #### 2 4323-8, LIPMAGDY, , 2132-06 ####[facility] LABIA [id number] [address] [address] [place] Potassium [Moles/Vol] 4.5 mmol/L Normal 3.7-5.[address] [facility] Comment on above: Order Comment: Speci men Type: BLOOD SPECIMENOrdering Facility: [facility] Address: [address] [place] [address] Performed By: #### 2 4323-8, LIPNF, , 2132-06 ####[facility] LABCLIA [id number] [address] [address] [place] Protein [Mass/Vol] 7.4 g/dL Normal 6.3-8.0 [facility] Comment on above: Order Comment: Speci men Type: BLOOD SPECIMENOrdering Facility: [facility] Address: [address] [place] [address] Performed By: #### 2 4323-8, LIPNF, , 2132-06 ####[facility] LABIA [id number] [place] [address] [place] Sodium [Moles/Vol] 141 mmol/L Normal 136-144 [facility] Comment on above: Order Comment: Speci men Type: BLOOD SPECIMENOrdering Facility: [facility] Address: [address] [place] [address] Performed By: #### 2 4323-8, LIPNF, , 2132-06 ####[facility] LABIA [id number] [place] [id number] [place] Urea nitrogen [Mass/Vol] 17 mg/dL Normal 9-24 [facility] Comment on above: Order Comment: Speci men Type: BLOOD SPECIMENOrdering Facility: [facility] Address: [address] [place] [address] Performed By: #### 2 4323-8, LIPNF, , 2132-06 ####[facility] LABIA [id number] [address] [address] [place] HbA1c (Bld)on 04-11-2025 Average glucose Estimated from glycated hemoglobin (Bld) [Mass/Vol] 111 mg/dL Normal [facility] Comment on above: Order Comment: Speci men Type: BLOOD SPECIMENOrdering Facility: [facility] Address: [address] [place], [place] [address] Result Comment: eAG: (Estimated average glucose) is a calculated value from HgbA1c and is registered representative of the average blood glucose level in the last 2-3 month period. Performed By: #### 5 5454-3 ####[facility] LABCLIA [id number] [address] [address] [place] HbA1c (Bld) [Mass fraction] 5.5 % Normal 4.3-5.6 [facility] Comment on above: Order Comment: Raghu sandoval Type: BLOOD SPECIMENOrdering Facility: [facility] Address: [address] [place] [address] Result Comment: [place] Diabetes Association guidelines indicate that patients with HgbA1c in the range 5.7-6.4% are at increased risk for development of diabetes, and intervention by lifestyle modification may be beneficial. HgbA1c greater or equal to 6.5% is considered diagnostic of diabetes. Performed By: #### 5 5454-3 ####[facility] LABIA [id number] [place] [address] [place] LIPID PANEL, NONFASTINGon Cholesterol [Mass/Vol] 212 mg/dL High <200 [facility] Comment on above: Order Comment: Raghu sandoval Type: BLOOD SPECIMENOrdering Facility: [facility] Address: [address] [place] [address] Result Comment: <200 mg/dL, Desirable 200-239 mg/dL, Borderline high>239 mg/dL, High Performed By: #### 2 4323-8, LIPNF, 26419-3, 2-9 ####[facility] LABIA [id number] [place] [address] [place] HDL CHOLESTEROL, NF 31 mg/dL Low >39 [facility] Comment on above: Order Comment: Raghu sandoval Type: BLOOD SPECIMENOrdering Facility: [facility] Address: [address] [place] [address] Result Comment: 40-5 9 mg/dL, Acceptable>59 mg/dL, High: Negative risk factor for coronary heart disease<40 mg/dL, Low: Positive risk factor for coronary heart disease Performed By: #### 2 4323-8, LIPNF, , 2132-06 ####[facility] LABCLIA [id number] [address] [place] LDL CHOLESTEROL CALCULATED, NF 145 mg/dL High <100 [facility] Comment on above: Order Comment: Speci men Type: BLOOD SPECIMENOrdering Facility: [facility] Address: [address] [place] [address] Result Comment: <100 mg/dL, Optimal 100-129 mg/dL, Near optimal/above optimal 130-159 mg/dL, Borderline high 160-189 mg/dL, High>189 mg/dL, Very highSecondary prevention optimal LDL Cholesterol levels are recommended to be <70 mg/dLLDL cholesterol is calculated using the Rey-NIH equation. Performed By: #### 2 4323-8, LIPNF, , 2132-06 ####[facility] LABCLIA [id number] [address] [place] LDL/HDL RATIO, NF 4.68 mg/dL High <2.54 [facility] Comment on above: Order Comment: Speci men Type: BLOOD SPECIMENOrdering Facility: [facility] Address: [address] [place] [address] Result Comment: Refe rence:1. National Cholesterol Education Program ATP III Guideline At-A-Glance Quick Desk Reference: National Heart, Lung, and Blood [place]. National Institutes of Health. 2001: NIH Publication No. 01-3305.2. An International Atherosclerosis Society position paper: global recommendations for the management of dyslipidemia: executive summary, Atherosclerosis. 2014: 232(2):410-413. Performed By: #### 2 4323-8, LIPNF, , 2132-06 ####[facility] LABCLIA [id number] [address] [address] [place] NON HDL CHOL, NF 181 mg/dL High <130 [facility] Comment on above: Order Comment: Speci men Type: BLOOD SPECIMENOrdering Facility: [facility] Address: [address] [place] [address] Result Comment: <130 mg/dL, Optimal 130-159 mg/dL, Near optimal/above optimal 160-189 mg/dL, Borderline high 190-219 mg/dL, High>219 mg/dL, Very highSecondary prevention optimal non HDL Cholesterol levels are recommended to be <100 mg/dL Performed By: #### 2 4323-8, LIPNF, , 2132-06 ####[facility] LABCLIA [id number] [place] [address] [place] T CHOL/HDL RATIO NF 6.84 mg/dL High <5.10 [facility] Comment on above: Order Comment: Speci men Type: BLOOD SPECIMENOrdering Facility: [facility] Address: [address] [place] [address] Performed By: #### 2 4323-8, LIPNF, , 2132-06 ####[facility] LABCLIA [id number] [place] [address] [place] TRIGLYCERIDES, NF 195 mg/dL High <150 [facility] Comment on above: Order Comment: Speci men Type: BLOOD SPECIMENOrdering Facility: [facility] Address: [address] [place] [address] Result Comment: <150 mg/dL, Normal 150-199 mg/dL, Borderline high 200-499 mg/dL, High>499 mg/dL, Very high Performed By: #### 2 4323-8, LIPNF, , 2132-06 ####[facility] LABCLIA [id number] [place] [id number] [place] VLDL CHOLESTEROL, NF 36 mg/dL High <30 [facility] Comment on above: Order Comment: Speci men Type: BLOOD SPECIMENOrdering Facility: [facility] Address: [address] [place] [address] Performed By: #### 2 4323-8, LIPNF, , 2132-06 ####[facility] LABCLIA [id number] [address] [address] [place] Magnesium SerPl-mCncon 04-11 Magnesium [Mass/Vol] 2.1 mg/dL Normal 1.7-2.3 [facility] Comment on above: Order Comment: Speci men Type: BLOOD SPECIMENOrdering Facility: [facility] Address: [address] [place] [address] Performed By: #### 2 4323-8, LIPNF, , 2132-06 ####[facility] LABCLIA [id number] [place] [address] [place] PSA SerPl-mCncon 04-11-2025 Prostate specific Ag [Mass/Vol] 0.19 ng/mL Normal <2.60 [facility] Comment on above: Order Comment: Speci men Type: BLOOD SPECIMENOrdering Facility: [facility] Address: [address] [place] [address] Result Comment: Tota l PSA test methodology used is the Electrochemiluminescence Immunoassay by [employer]. Total PSA values by differing methodologies cannot be interchanged. Performed By: #### 2 857-1 ####[facility] LABIA [id number] [place] [address] [place] Vit B12 SerPl-mCncon 025 Cobalamin (Vitamin B12) [Mass/Vol] 1010 pg/mL Normal 232-1245 [facility] Comment on above: Order Comment: Speci men Type: BLOOD SPECIMENOrdering Facility: [facility] Address: [address] [place], [place] [address] Performed By: #### 2 4323-8, LIPNF, , 2132-06 ####[facility] LABCLIA [id number] [place] [id number] [place] Zinc SerPl-mCncon 07-08-2025 Zinc [Mass/Vol] 59 ug/dL Low 60-120 [facility] Comment on above: Order Comment: Speci men Type: BLOOD SPECIMENOrdering Facility: [facility] Address: [address] [place] [address] Result Comment: This test was developed, and its performance characteristics determined by the [facility] Department of Pathology and Laboratory Medicine. It has not been cleared or approved by the FDA. The [facility] Department of Pathology and Laboratory Medicine is regulated under CLIA as qualified to perform high-complexity testing. This test is used for clinical purposes. It should not be regarded as investigational or for research. Performed By: #### 5 763-8 ####[facility] LABCLIA [id number] [place] [address] [place] CNPNon 03-16-2025 CNPN Normal [facility] CNOVon 02-24-2025 CNOV Normal [facility] CNOVon 01-09-2025 CNOV Normal [facility] No Panel Informationon 01-09 IMPRESSION: No radiographic evidence of acute osseous injury. 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: [facility] Transcribe Date/Time: Jan 09 2025 9:33A Dictated by : NATASHA SAAVEDRA MD This examination was interpreted and the report reviewed and electronically signed by: NATASHA SAAVEDRA MD on Jan 09 2025 9:35AM EST DIVISION OF RADIOLOGY [facility] Radiology Study observation (narrative) [facility] XR FOREARM 2V AP/LAT RTon XR FOREARM 2V AP/LAT RT Normal [facility] XR HIP 3V PELV+ AP/LAT RTon 01-09-2025 XR HIP 3V PELV+ AP/LAT RT Normal [facility] XR Pelvis and Hip - right AP and Lateral frogon 01-09-2025 IMPRESSION: No radiographic evidence of acute osseous injury 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 Transcribe Date/Time: Jan 09 2025 9:37A Dictated [...] of the vasculature. 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 DIVISION OF RADIOLOGY Provider, [facility] - 01/09/2025 * * *Final [...] No radiographic evidence of acute osseous injury. 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[facility] Transcribe Date/Time: Jan 09 2025 9:33A Dictated by : NATASHA SAAVEDRA MD This examination was interpreted and the report reviewed and electronically signed by: NATASHA SAAVEDRA MD on Jan 09 2025 9:35AM EST [facility] XR SHLDR >/=3V AP/MARIE AP/OTH R RTon 01-09-2025 XR SHLDR >/=3V AP/MARIE AP/OTHR RT Normal [facility] XR Shoulder - right 3 Viewso n 01-09-2025 IMPRESSION: No radiographic evidence of acute osseous injury. 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[facility] Transcribe Date/Time: Jan 09 2025 9:36A Dictated by : NATASHA SAAVEDRA MD This examination was interpreted and the report reviewed and electronically signed by: NATASHA SAAVEDRA MD on Jan 09 2025 9:37AM [facility] DIVISION OF RADIOLOGY * * *Final [...] the right hemithorax DIVISION OF RADIOLOGY Provider, [facility] - 01/09/2025 * * *Final [...] No radiographic evidence of acute osseous injury. 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 DIVISION OF RADIOLOGY Provider, [facility] - 01/09/2025 * * *Final [...] No radiographic evidence of acute osseous injury. 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: [employer] Transcribe Date/Time: Jan 09 2025 9:33A Dictated by : NATASHA SAAVEDRA MD This examination was interpreted and the report reviewed and electronically signed by: NATASHA SAAVEDRA MD on Jan 09 2025 9:35AM EST [facility] CNOVon 12-05-2024 CNOV Normal [facility] CNPNon 12-05-2024 CNPN Normal [facility] CNOVon 11-25-2024 CNOV Normal [facility] CNOV Normal [facility] CNOVon 11-23-2024 CNOV Normal [facility] CNPTOUTREACHon 11-18-2024 CNPTOUTREACH Normal [facility] CNPTOUTREACHon 11-14-2024 CNPTOUTREACH Normal [facility] CBC W Auto Differential pane l (Bld)on 11-13-2024 Basophils (Bld) [#/Vol] 0.04 10*3/uL Normal <0.11 [facility] Comment on above: Order Comment: Speci men Type: BLOOD SPECIMENOrdering Facility: [facility] Address: [address] [place] [address] Performed By: #### 5 7021-8 ####[facility] LABORATORYCLIA [id number] [place] [address] [place] Basophils/100 WBC (Bld) 0.6 % Normal [facility] Comment on above: Order Comment: Speci men Type: BLOOD SPECIMENOrdering Facility: [facility] Address: [address] [place] [address] Performed By: #### 5 7021-8 ####[facility] LABORATORYCLIA [id number] [place] [address] [place] Differential cell count method Nom (Bld) Auto Normal [facility] Comment on above: Order Comment: Speci men Type: BLOOD SPECIMENOrdering Facility: [facility] Address: [address] [place] [address] Performed By: #### 5 7021-8 ####[facility] LABORATORYCLIA [id number] [place] [address] [place] Eosinophils (Bld) [#/Vol] 0.27 10*3/uL Normal <0.46 [facility] Comment on above: Order Comment: Speci men Type: BLOOD SPECIMENOrdering Facility: [facility] Address: [address] [place] [address] Performed By: #### 5 7021-8 ####[facility] LABORATORYCLIA [id number] [address] [place] Eosinophils/100 WBC (Bld) 3.9 % Normal [facility] Comment on above: Order Comment: Speci men Type: BLOOD SPECIMENOrdering Facility: [facility] Address: [address] [place] [address] Performed By: #### 5 7021-8 ####[facility] LABORATORYIA [id number] [address] [place] Erythrocyte distribution width (RBC) [Ratio] 12.8 % Normal 11.5-15.0 [facility] Comment on above: Order Comment: Speci men Type: BLOOD SPECIMENOrdering Facility: [facility] Address: [address] [place] [address] Performed By: #### 5 7021-8 ####[facility] LABORATORYIA [id number] [address] STATES [facility] Hematocrit (Bld) [Volume fraction] 40.7 % Normal 39.0-51.0 [facility] Comment on above: Order Comment: Speci men Type: BLOOD SPECIMENOrdering Facility: [facility] Address: [address] [place] [address] Performed By: #### 5 7021-8 ####[facility] LABORATORYIA [id number] [place] [address] [place] Hemoglobin (Bld) [Mass/Vol] 13.6 g/dL Normal 13.0-17.0 [facility] Comment on above: Order Comment: Speci men Type: BLOOD SPECIMENOrdering Facility: [facility] Address: [address] [place] [address] Performed By: #### 5 7021-8 ####[facility] LABORATORYCLIA [id number] [place] [address] [place] Immature granulocytes (Bld) [#/Vol] 10*3/uL Normal <0.10 [facility] Comment on above: Order Comment: Speci men Type: BLOOD SPECIMENOrdering Facility: [facility] Address: [address] [place] [address] Performed By: #### 5 7021-8 ####[facility] LABORATORYCLIA [id number] [address] Immature granulocytes/100 WBC (Bld) 0.3 % Normal [facility] Comment on above: Order Comment: Speci men Type: BLOOD SPECIMENOrdering Facility: [facility] Address: [address] [place] [address] Performed By: #### 5 7021-8 ####[facility] LABORATORYIA [id number] [address] Lymphocytes (Bld) [#/Vol] 1.94 10*3/uL Normal 1.00-4.00 [facility] Comment on above: Order Comment: Speci men Type: BLOOD SPECIMENOrdering Facility: [facility] Address: [address] [place] [address] Performed By: #### 5 7021-8 ####[facility]AM [facility] LABORATORYIA [id number] [address] Lymphocytes/100 WBC (Bld) 28.1 % Normal [facility] Comment on above: Order Comment: Speci men Type: BLOOD SPECIMENOrdering Facility: [facility] Address: [address] [place] [address] Performed By: #### 5 7021-8 ####PAM [facility] LABORATORYIA [id number] [address] [place] MCH (RBC) [Entitic mass] 29.5 pg Normal 26.0-34.0 [facility] Comment on above: Order Comment: Speci men Type: BLOOD SPECIMENOrdering Facility: [facility] Address: [address] [place] [address] Performed By: #### 5 7021-8 ####JYOTIJERSON [facility] LABORATORYIA [id number] [address] STATES [facility] MCHC (RBC) [Mass/Vol] 33.4 g/dL Normal 30.5-36.[address] [facility] Comment on above: Order Comment: Speci men Type: BLOOD SPECIMENOrdering Facility: [facility] Address: [address] [place] [address] Performed By: #### 5 7021-8 ####JYOTIJERSON [facility] LABORATORYIA [id number] [place] [address] [place] MCV (RBC) [Entitic vol] 88.3 fL Normal 80.0-100.0 [facility] Comment on above: Order Comment: Speci men Type: BLOOD SPECIMENOrdering Facility: [facility] Address: [address] [place] [address] Performed By: #### 5 7021-8 ####JYOTIJERSON [facility] LABORATORYIA [id number] [address] [place] Monocytes (Bld) [#/Vol] 0.74 10*3/uL Normal <0.87 [facility] Comment on above: Order Comment: Speci men Type: BLOOD SPECIMENOrdering Facility: [facility] Address: [address] [place] [address] Performed By: #### 5 7021-8 ####JILLESTRELLA [facility] LABORATORYCLIA [id number] [address] Monocytes/100 WBC (Bld) 10.7 % Normal [facility] Comment on above: Order Comment: Speci men Type: BLOOD SPECIMENOrdering Facility: [facility] Address: [address] [place] [address] Performed By: #### 5 7021-8 ####PAM [facility] LABORATORYCLIA [id number] [place] [address] [place] Neutrophils (Bld) [#/Vol] 3.89 10*3/uL Normal 1.45-7.50 [facility] Comment on above: Order Comment: Speci men Type: BLOOD SPECIMENOrdering Facility: [facility] Address: [address] [place] [address] Performed By: #### 5 7021-8 ####JYOTIJERSON [facility] LABORATORYCLIA [id number] [place] [address] [place] Neutrophils/100 WBC (Bld) 56.4 % Normal [facility] Comment on above: Order Comment: Speci men Type: BLOOD SPECIMENOrdering Facility: [facility] Address: [address] [place] [address] Performed By: #### 5 7021-8 ####JILLJERSON [facility] LABORATORYCLIA [id number] [place] [address] [place] Nucleated RBC (Bld) [#/Vol] 10*3/uL Normal <0.01 [facility] Comment on above: Order Comment: Speci men Type: BLOOD SPECIMENOrdering Facility: [facility] Address: [address] [place] [address] Performed By: #### 5 7021-8 ####JILLESTRELLA [facility] LABORATORYCLIA [id number] [address] OF [place] Nucleated RBC/100 WBC (Bld) [Ratio] 0.0 /100 WBC Normal [facility] Comment on above: Order Comment: Speci men Type: BLOOD SPECIMENOrdering Facility: [facility] Address: [address] [place] [address] Performed By: #### 5 7021-8 ####JILLJERSON [facility] LABORATORYIA [id number] [address] [place] Platelet mean volume (Bld) [Entitic vol] 10.1 fL Normal 9.0-12.7 [facility] Comment on above: Order Comment: Speci men Type: BLOOD SPECIMENOrdering Facility: [facility] Address: [address] [place] [address] Performed By: #### 5 7021-8 ####PAM [facility] LABORATORYCLIA [id number] [place] [address] [facility] Platelets (Bld) [#/Vol] 225 10*3/uL Normal 150-400 [facility] Comment on above: Order Comment: Speci men Type: BLOOD SPECIMENOrdering Facility: [facility] Address: [address] [place] [address] Performed By: #### 5 7021-8 ####PAM [facility] LABORATORYCLIA [id number] [address] RBC (Bld) [#/Vol] 4.61 10*6/uL Normal 4.20-6.00 [facility] Comment on above: Order Comment: Speci men Type: BLOOD SPECIMENOrdering Facility: [facility] Address: [address] [place] [address] Performed By: #### 5 7021-8 ####PAM [facility]PITALIA [id number] [address] WBC (Bld) [#/Vol] 6.90 10*3/uL Normal 3.70-11.00 [facility] Comment on above: Order Comment: Speci men Type: BLOOD SPECIMENOrdering Facility: [facility] Address: [address] [place] [address] Performed By: #### 5 7021-8 ####PAM [facility] LABORATORYIA [id number] [address] Comprehensive metabolic 2000 panelon 11-13-2024 Albumin [Mass/Vol] 3.7 g/dL Low 3.9-4.9 [facility] Comment on above: Order Comment: Speci men Type: BLOOD SPECIMENOrdering Facility: [facility] Address: [address] [place] [address] Performed By: #### 1 9123-9, [id number], 3040-3, 06135-6 ####PAM [facility] LABORATORYCLIA [id number] [place] [address] [place] ALP [Catalytic activity/Vol] 95 U/L Normal 38-113 [facility] Comment on above: Order Comment: Speci men Type: BLOOD SPECIMENOrdering Facility: [facility] Address: [address] [place] [address] Performed By: #### 1 9123-9, [id number], 3040-3, 82972-0 ####JILLESTRELLA [facility] LABORATORYCLIA [id number] [place] [address] [place] ALT [Catalytic activity/Vol] 11 U/L Normal 10-54 [facility] Comment on above: Order Comment: Speci men Type: BLOOD SPECIMENOrdering Facility: [facility] Address: [address] [place] [address] Performed By: #### 1 9123-9, [id number], 3040-3, 43102-0 ####JILLJERSON [facility] HOSPITALIA [id number] [place] [address] [place] Anion gap [Moles/Vol] 9 mmol/L Normal 8-[address] [facility] Comment on above: Order Comment: Speci men Type: BLOOD SPECIMENOrdering Facility: [facility] Address: [address] [place] [address] Performed By: #### 1 9123-9, [id number], 3040-3, 94950-0 ####JILLESTRELLA [facility] LABORATORYCLIA [id number] [place] [address] [place] AST [Catalytic activity/Vol] 15 U/L Normal 14-40 [facility] Comment on above: Order Comment: Speci men Type: BLOOD SPECIMENOrdering Facility: [facility] Address: [address] [place] [address] Performed By: #### 1 9123-9, [id number], 3040-3, 03612-3 ####PAM [facility] LABORATORYCLIA [id number] [place] [address] [place] Bilirubin [Mass/Vol] 0.4 mg/dL Normal 0.2-1.3 [facility] Comment on above: Order Comment: Speci men Type: BLOOD SPECIMENOrdering Facility: [facility] Address: [address] [place] [address] Performed By: #### 1 9123-9, [id number], 3040-3, 22304-3 ####PAM [facility] LABORATORYCLIA [id number] [place] [address] [place] Calcium [Mass/Vol] 9.1 mg/dL Normal 8.5-10.2 [facility] Comment on above: Order Comment: Speci men Type: BLOOD SPECIMENOrdering Facility: [facility] Address: [address] [place] [address] Performed By: #### 1 9123-9, [id number], 3040-3, 00415-9 ####PAM [facility] LABORATORYCLIA [id number] [place] [address] [place] Chloride [Moles/Vol] 106 mmol/L Normal 98-107 [facility] Comment on above: Order Comment: Speci men Type: BLOOD SPECIMENOrdering Facility: [facility] Address: [address] [place] [address] Performed By: #### 1 9123-9, [id number], 3040-3, 05733-1 ####PAM [facility] LABORATORYCLIA [id number] [place] [address] [place] CO2 [Moles/Vol] 26 mmol/L Normal 22-30 [facility] Comment on above: Order Comment: Speci men Type: BLOOD SPECIMENOrdering Facility: [facility] Address: [address] [place] [address] Performed By: #### 1 9123-9, [id number], 3040-3, 02757-5 ####PAM [facility] LABORATORYCLIA [id number] [place] [address] [place] Creatinine [Mass/Vol] 1.25 mg/dL High 0.73-1.[address] [facility] Comment on above: Order Comment: Raghu sandoval Type: BLOOD SPECIMENOrdering Facility: [facility] Address: [address] [place] [address] Performed By: #### 1 9123-9, [id number], 3040-3, 60222-4 ####PAM [facility] LABORATORYCLIA [id number] [place] [address] [place] [facility] Creatinine and Glomerular filtration rate.predicted panel (S/P/Bld) 58 mL/min/1.73m??? Low >=60 [facility] Comment on above: Order Comment: Raghu sandoval Type: BLOOD SPECIMENOrdering Facility: [facility] Address: [address] [place] [address] Result Comment: Carlita mated Glomerular Filtration Rate [...] actual GFR. Performed By: #### 1 9123-9, [id number], 3040-3, 64411-4 ####PAM [facility] LABORATORYCLIA [id number] [place] [address] [place] Glucose [Mass/Vol] 96 mg/dL Normal 74-99 [facility] Comment on above: Order Comment: Raghu sandoval Type: BLOOD SPECIMENOrdering Facility: [facility] Address: [address] [place] [address] Result Comment: The [place] [employer] (ADA) provides guidance for cutoff [...] Standards of Medical Care in Diabetes 2016, [place] [employer]. Diabetes Care. 2016.39(Suppl 1). Performed By: #### 1 9123-9, [id number], 3040-3, 29063-5 ####PAM [facility] LABORATORYCLIA [id number] [place] [address] [place] Potassium [Moles/Vol] 3.8 mmol/L Normal 3.7-5.[address] [facility] Comment on above: Order Comment: Speci men Type: BLOOD SPECIMENOrdering Facility: [facility] Address: [address] [place] [address] Performed By: #### 1 9123-9, [id number], 3040-3, 21759-3 ####PAM [facility] LABORATORYCLIA [id number] [place] [address] [place] Protein [Mass/Vol] 6.7 g/dL Normal 6.3-8.0 [facility] Comment on above: Order Comment: Raghu sandoval Type: BLOOD SPECIMENOrdering Facility: [facility] Address: [address] [place] [address] Performed By: #### 1 9123-9, [id number], 3040-3, 92056-1 ###BRONSON [facility] LABORATORYCLIA [id number] [place] [address] [place] Sodium [Moles/Vol] 141 mmol/L Normal 136-144 [facility] Comment on above: Order Comment: Raghu sandoval Type: BLOOD SPECIMENOrdering Facility: [facility] Address: [address] [place], [place] [address] Performed By: #### 1 9123-9, [id number], 3040-3, 89902-8 ####PAM [facility] LABORATORYCLIA [id number] [place] [address] [place] Urea nitrogen [Mass/Vol] 16 mg/dL Normal 9-24 [facility] Comment on above: Order Comment: Speci men Type: BLOOD SPECIMENOrdering Facility: [facility] Address: [address] [place] [address] Performed By: #### 1 9123-9, [id number], 3040-3, 58162-6 ###BRONSON [facility] LABORATORYCLIA [id number] [place] [address] [place] [id number] 11-13-2024 ECG01 Normal [facility] ED NOTEon 11-13-2024 ED NOTE Normal [facility] ED PROV NOTEon 11-13-2024 ED PROV NOTE Normal [facility] HIGH SENSITIVITY TROPONIN T (INITIAL)on 11-13-2024 Troponin T.cardiac High sensitivity method [Mass/Vol] 14 ng/L High <12 [facility] Comment on above: Order Comment: Speci men Type: BLOOD SPECIMENOrdering Facility: [facility] Address: [address] [place] [address] Performed By: #### 1 9123-9, [id number], [facility]03, 19514-5 ###BRONSON [facility] LABORATORYCLIA [id number] [place] [address] [place] HIGH SENSITIVITY TROPONIN T (SECOND)on 11-13-2024 Troponin T.cardiac High sensitivity method [Mass/Vol] 13 ng/L High <12 [facility] Comment on above: Order Comment: Speci men Type: BLOOD SPECIMENOrdering Facility: [facility] Address: [address] [place] [address] Performed By: #### L [id number] ####PAM [facility] LABORATORYCLIA [id number] [place] [address] [place] HIGH SENSITIVITY TROPONIN T (THIRD) 3 HRS AFTER INITIALon 11-13-2024 Troponin T.cardiac High sensitivity method [Mass/Vol] 12 ng/L High <12 [facility] Comment on above: Order Comment: Speci men Type: BLOOD SPECIMENOrdering Facility: [facility] Address: [address] [place] [address] Performed By: #### L [id number] ####PAM [facility] LABORATORYCLIA [id number] [place] [address] [place] Lipase SerPl-cCncon 11-13-19 25 Lipase [Catalytic activity/Vol] 11 U/L Low 16-61 [facility] Comment on above: Order Comment: Speci men Type: BLOOD SPECIMENOrdering Facility: [facility] Address: [address] [place] [address] Performed By: #### 1 9123-9, [id number], [facility]03, 87501-0 ####BRUNESTRELLA [facility] LABORATORYCLIA [id number] [place] [address] [place] [facility] [place] Magnesium SerPl-mCncon 11-13 Magnesium [Mass/Vol] 1.9 mg/dL Normal 1.7-2.3 [facility] Comment on above: Order Comment: Speci men Type: BLOOD SPECIMENOrdering Facility: [facility] Address: [address] [place] [address] Performed By: #### 1 9123-9, [id number], [facility]3, 69627-2 ####PAM [facility] LABORATORYIA [id number] [place] [address] [place] XR ABDOMEN 1V SUPINEon 11-13 XR ABDOMEN 1V SUPINE Normal [facility] XR CHEST 2V FRONTAL/LATon XR CHEST 2V FRONTAL/LAT Normal [facility] CNOVon 11-10-2024 CNOV Normal [facility] 102on 11-07-2024 102 HNO ID: [id number] Author: ANA ROSA TAYLOR HDA Service: ? Author Type: ? Type: 102 Filed: 11/07/2024 09:28 Note Text: Code Status: Full Code Normal [facility] CNPTOUTREACHon 11-03-2024 CNPTOUTREACH Normal [facility] [id number] 10-27-2024 [id number] Normal [facility] CNPNon 10-27-2024 CNPN Normal [facility] CNPTOUTREACHon 10-27-2024 CNPTOUTREACH Normal [facility] CNTHERAPYon 10-27-2024 CNTHERAPY Normal [facility] THERAPY NTon 10-27-2024 THERAPY NT Normal [facility] CNPNon 10-26-2024 CNPN Normal [facility] CNOVon 10-24-2024 CNOV Normal [facility] CNCOon 10-21-2024 CNCO Letter Text Normal [facility] CNPTOUTREACHon 10-21-2024 CNPTOUTREACH Normal [facility] CASE MANAGEMon 10-20-2024 CASE MANAGEM HNO ID: [id number] Author: STEPH MITCHELL RN Service: ? Author [...] the inter-professional team: Yes Name of Caregiver: [facility] Transportation Arrangements Transportation Arrangements: Car Handoff Communication: Handoff to: Primary Care Physician Primary Care Physician Name/Phone: Adama Mendoza MD, Summary of care sent to PCP and [facility]. Additional Information: Discharge Information Row Name Admission (Current) from 10/15/2024 in [facility] Start of Care -- Within 48 hours of discharge. DC order written for patient to return home with [facility]. He will be staying at his son's house upon DC. [facility] orders in EPIC for [facility]. Son to transport. SIGNATURE: Steph Mitchell RN PATIENT NAME: Lory Johnson DATE: October 20, 2024 TIME: 1:49 PM Normal [facility] CASE MANAGEM HNO ID: [id number] Author: STEPH MITCHELL RN Service: ? Author Type: Registered Nurse Type: Care Mgt Progress Note Filed: 10/20/2024 12:39 Note Text: CARE MANAGEMENT PROGRESS NOTE SERVICE DATE: 10/20/2024 SERVICE TIME: 12:11 PM LOS: 5 days Needs Prior to Discharge: Accepting Facility;Home Care Order [place] of Choice Given: Yes Level of Care Discussed: Home Care (Explained to patient's son, no preference on agency) IMM Follow Up Copy Given: Yes Copy given to:: Patient Software Test Specialist Software Test Specialist Name/Relationship: airam Bauer Method: By Phone EMR reviewed. PT eval pending. OT recommending [facility]. RNCM spoke to patient's son, Tim, to discuss DC planning. Referral sent to [facility], awaiting response. Will NEED F2F. CM assigned will continue to follow for DC planning needs. [facility] can accept. SIGNATURE: Steph Mitchell RN PATIENT NAME: Lory Johnson DATE: October 20, 2024 TIME: 12:11 PM [facility] 10-20-2024 [facility] HNO ID: [id number] Author: SOTO VALDERRAMA MD Service: Hospital Medicine [...] Provider: Soto Valderrama MD Primary Service: 2, [facility] MY CONDITION AT DISCHARGE: Stable REASON I [...] Patt for psychiatry (patient follows at the [facility]) PROCEDURES: NONE CODE STATUS: Full code ASSESSMENT/PLAN [...] -- 23. (more content not included)... Normal [facility] CNPNon 10-20-2024 CNPN Normal [facility] CONSULT PROGon 10-20-2024 CONSULT PROG HNO ID: [id number] Author: MERVIN BELTRE APRN.HANGER OFF Service: Psychiatry Author Type: Nurse Practitioner Type: [...] B6) 150 mg ORAL DAILY GlaMervin roy, SOLID PROPELLANT PROCESSOR.HANGER OFF 150 mg at 10/20/24 1319 traZODone 50 mg tab(s) (DESYREL) 50 mg ORAL AT BEDTIME GlaMervin roy, SOLID PROPELLANT PROCESSOR.HANGER OFF 50 mg at 10/19/242019 benzonatate 100 mg cap(s) (TESSALON PERLE) 100 mg ORAL TID Mervin [place], SOLID PROPELLANT PROCESSOR.HANGER OFF 100 mg at 10/20/[address] 125 mg tab(s) (DEPAKOTE) 125 mg ORAL AT BEDTIME GlaMervin roy, SOLID PROPELLANT PROCESSOR.HANGER OFF 125 mg at 10/19/24 2019 zinc sulfate 220 mg capsule(s) 220 mg ORAL DAILY Mervin [place], SOLID PROPELLANT PROCESSOR.HANGER OFF 220 mg at 10/20/24 0952 traZODone 12.5 mg tab(s) (DESYREL) 12.5 mg ORAL QID PRN Mervin Beltre, SOLID PROPELLANT PROCESSOR.HANGER OFF 12.5 mg at 10/19/24 0245 phosphorus 250 [...] 2008 10/20/24 (more content not included)... Normal [facility] CT CHEST WO IVCONon 10-20-19 CT CHEST WO IVCON * * *Final Report* * * DATE OF EXAM: Oct 20 2024 9:17AM [facility] 0541 - CT CHEST WO IVCON / [...] multifocal calcific pleural plaques. Moderate hiatal hernia. 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[facility] Transcribe Date/Time: Oct 20 2024 9:46A Dictated by : FELICIA GRAHAM MD This examination was interpreted and the report reviewed and electronically signed by: FELICIA GRAHAM MD on Oct 20 2024 10:01AM EST [id number] Normal [facility] THERAPY NTon 10-20-2024 THERAPY NT HNO ID: [id number] Author: NELIA LYNN OTR/Jorge L Service: Occupational Therapy Author Type: Occupational Therapist Type: Therapy (PT/OT/Speech/Resp) Filed: 10/20/2024 08:58 Note Text: Summary: OT eval Occupational Therapy Evaluation Summary SERVICE DATE: 10/20/2024 SERVICE TIME: 748 to 826 ROOM: [place] [address] OT 6 Clicks Score: 18 DISCHARGE RECOMMENDATIONS [...] Redirected with Cues Memory Deficits: Short Term, Prison, Recall of Medical/Personal History, Recall of Recent Events Executive Function Deficits: Judgement, Insight to Deficits Cognitive Activities Performed: re directed, re oriented, THERAPY DIAGNOSIS Reduced mobility-other, Decreased activities of daily living (ADL), Signs and Symptoms Involving Cognitive Functions and Awareness TREATMENT INTERVENTIONS Evaluation, Therapeutic Activity (80464) Timed Code Treatment (minutes): 23 Skilled Treatment [...] Assistance, Additional Infor (more content not included)... [facility] 10-19-2024 [facility] HNO ID: [id number] Author: BRIANNA ROBERTSON CT Service: Radiology Author [...] PATIENT PRESENTS WITH AN IMPLANTABLE OR ATTACHED MALT LIQUORS SALES SUPERVISOR: No RADIOLOGY DEPARTMENT: MR; Exam(s) Completed: Head: Routine Brain PERIPHERAL IV DATA: Not applicable SIGNED BY: YOLIE SAPP October 19, 2024 3:56 PM [facility] HNO ID: [id number] Author: JENS RODRIGUEZ Tech Service: ? Author Type: Production Machine Tender Type: Allied Health Filed: 10/19/2024 01:03 Note [...] PATIENT PRESENTS WITH AN IMPLANTABLE OR ATTACHED MALT LIQUORS SALES SUPERVISOR: No RADIOLOGY DEPARTMENT: General X-ray: Exam(s) Completed: Chest X-Ray PERIPHERAL IV DATA: Not applicable SIGNED BY: Darling Liu October 19, 2024 1:02 AM [facility] CASE MANAGEMon 10-19-2024 CASE MANAGEM HNO ID: [id number] Author: XIN BOLIVAR RN Service: ? Author [...] DATE: October 19, 2024 TIME: 4:45 PM [facility] CBC W Auto Differential pane l (Bld)on 10-19-2024 Basophils (Bld) [#/Vol] 0.04 10*3/uL Normal <0.11 [facility] Comment on above: Order Comment: Speci men Type: BLOOD SPECIMENOrdering Facility: [facility] Address: [address] [place] [address] Performed By: #### 5 7021-8 ####[facility] LABORATORYCLIA [id number] [address] STATES [facility] Basophils/100 WBC (Bld) 0.5 % Normal [facility] Comment on above: Order Comment: Speci men Type: BLOOD SPECIMENOrdering Facility: [facility] Address: [address] [place] [address] Performed By: #### 5 7021-8 ####[facility] LABORATORYCLIA [id number] [place] [address] [place] Differential cell count method Nom (Bld) Auto Normal [facility] Comment on above: Order Comment: Speci men Type: BLOOD SPECIMENOrdering Facility: [facility] Address: [address] [place] [address] Performed By: #### 5 7021-8 ####[facility] LABORATORYCLIA [id number] [place] [address] [place] Eosinophils (Bld) [#/Vol] 0.14 10*3/uL Normal <0.46 [facility] Comment on above: Order Comment: Speci men Type: BLOOD SPECIMENOrdering Facility: [facility] Address: [address] [place] [address] Performed By: #### 5 7021-8 ####[facility] LABORATORYCLIA [id number] [address] Eosinophils/100 WBC (Bld) 1.7 % Normal [facility] Comment on above: Order Comment: Speci men Type: BLOOD SPECIMENOrdering Facility: [facility] Address: [address] [place] [address] Performed By: #### 5 7021-8 ####[facility] LABORATORYCLIA [id number] [address] [place] Erythrocyte distribution width (RBC) [Ratio] 12.9 % Normal 11.5-15.0 [facility] Comment on above: Order Comment: Speci men Type: BLOOD SPECIMENOrdering Facility: [facility] Address: [address] [place] [address] Performed By: #### 5 7021-8 ####[facility] LABORATORYCLIA [id number] [place] [address] [place] Hematocrit (Bld) [Volume fraction] 39.5 % Normal 39.0-51.0 [facility] Comment on above: Order Comment: Speci men Type: BLOOD SPECIMENOrdering Facility: [facility] Address: [address] [place] [address] Performed By: #### 5 7021-8 ####[facility] LABORATORYCLIA [id number] [place] [address] [place] Hemoglobin (Bld) [Mass/Vol] 13.4 g/dL Normal 13.0-17.0 [facility] Comment on above: Order Comment: Speci men Type: BLOOD SPECIMENOrdering Facility: [facility] Address: [address] [place] [address] Performed By: #### 5 7021-8 ####[facility] LABORATORYCLIA [id number] [place] [address] [place] Immature granulocytes (Bld) [#/Vol] 10*3/uL Normal <0.10 [facility] Comment on above: Order Comment: Speci men Type: BLOOD SPECIMENOrdering Facility: [facility] Address: [address] [place] [address] Performed By: #### 5 7021-8 ####[facility] LABORATORYCLIA [id number] [place] [address] [place] Immature granulocytes/100 WBC (Bld) 0.1 % Normal [facility] Comment on above: Order Comment: Speci men Type: BLOOD SPECIMENOrdering Facility: [facility] Address: [address] [place] [address] Performed By: #### 5 7021-8 ####[facility] LABORATORYCLIA [id number] [place] [address] [place] Lymphocytes (Bld) [#/Vol] 1.96 10*3/uL Normal 1.00-4.00 [facility] Comment on above: Order Comment: Speci men Type: BLOOD SPECIMENOrdering Facility: [facility] Address: [address] [place] [address] Performed By: #### 5 7021-8 ####[facility] LABORATORYCLIA [id number] [address] Lymphocytes/100 WBC (Bld) 24.1 % Normal [facility] Comment on above: Order Comment: Speci men Type: BLOOD SPECIMENOrdering Facility: [facility] Address: [address] [place] [address] Performed By: #### 5 7021-8 ####PUT[facility] LABORATORYCLIA [id number] [address] [place] MCH (RBC) [Entitic mass] 29.9 pg Normal 26.0-34.0 [facility] Comment on above: Order Comment: Speci men Type: BLOOD SPECIMENOrdering Facility: [facility] Address: [address] [place] [address] Performed By: #### 5 7021-8 ####[facility] LABORATORYCLIA [id number] [address] [place] MCHC (RBC) [Mass/Vol] 33.9 g/dL Normal 30.5-36.0 [facility] Comment on above: Order Comment: Speci men Type: BLOOD SPECIMENOrdering Facility: [facility] Address: [address] [place] [address] Performed By: #### 5 7021-8 ####[facility] LABORATORYCLIA [id number] [address] MCV (RBC) [Entitic vol] 88.2 fL Normal 80.0-100.0 [facility] Comment on above: Order Comment: Speci men Type: BLOOD SPECIMENOrdering Facility: [facility] Address: [address] [place] [address] Performed By: #### 5 7021-8 ####[facility] LABORATORYCLIA [id number] [address] [place] Monocytes (Bld) [#/Vol] 0.84 10*3/uL Normal <0.87 [facility] Comment on above: Order Comment: Speci men Type: BLOOD SPECIMENOrdering Facility: [facility] Address: [address] [place] [address] Performed By: #### 5 7021-8 ####PUT[facility] LABORATORYCLIA [id number] [place] [address] [place] Monocytes/100 WBC (Bld) 10.3 % Normal [facility] Comment on above: Order Comment: Speci men Type: BLOOD SPECIMENOrdering Facility: [facility] Address: [address] [place] [address] Performed By: #### 5 7021-8 ####PUT[facility] LABORATORYCLIA [id number] [place] [address] [place] Neutrophils (Bld) [#/Vol] 5.13 10*3/uL Normal 1.45-7.50 [facility] Comment on above: Order Comment: Speci men Type: BLOOD SPECIMENOrdering Facility: [facility] Address: [address] [place] [address] Performed By: #### 5 7021-8 ####PUT[facility] LABORATORYCLIA [id number] [place] [address] [place] Neutrophils/100 WBC (Bld) 63.3 % Normal [facility] Comment on above: Order Comment: Speci men Type: BLOOD SPECIMENOrdering Facility: [facility] Address: [address] [place] [address] Performed By: #### 5 7021-8 ####[facility] LABORATORYCLIA [id number] [place] [address] [place] Nucleated RBC (Bld) [#/Vol] 10*3/uL Normal <0.01 [facility] Comment on above: Order Comment: Speci men Type: BLOOD SPECIMENOrdering Facility: [facility] Address: [address] [place] [address] Performed By: #### 5 7021-8 ####[facility] LABORATORYCLIA [id number] [place] [address] [place] Nucleated RBC/100 WBC (Bld) [Ratio] 0.0 /100 WBC Normal [facility] Comment on above: Order Comment: Speci men Type: BLOOD SPECIMENOrdering Facility: [facility] Address: [address] [place] [address] Performed By: #### 5 7021-8 ####[facility] LABORATORYCLIA [id number] [address] Platelet mean volume (Bld) [Entitic vol] 10.0 fL Normal 9.0-12.7 [facility] Comment on above: Order Comment: Speci men Type: BLOOD SPECIMENOrdering Facility: [facility] Address: [address] [place] [address] Performed By: #### 5 7021-8 ####[facility] LABORATORYCLIA [id number] [address] [place] Platelets (Bld) [#/Vol] 233 10*3/uL Normal 150-400 [facility] Comment on above: Order Comment: Speci men Type: BLOOD SPECIMENOrdering Facility: [facility] Address: [address] [place] [address] Performed By: #### 5 7021-8 ####PUT[facility] LABORATORYCLIA [id number] [place] [address] [place] RBC (Bld) [#/Vol] 4.48 10*6/uL Normal 4.20-6.00 [facility] Comment on above: Order Comment: Speci men Type: BLOOD SPECIMENOrdering Facility: [facility] Address: [address] [place] [address] [place] [address] Performed By: #### 5 7021-8 ####PUTNAM LABORATORYCLIA [id number] [address] [place] WBC (Bld) [#/Vol] 8.12 10*3/uL Normal 3.70-11.00 [facility] Comment on above: Order Comment: Speci men Type: BLOOD SPECIMENOrdering Facility: [facility] Address: [address] [place] [address] [place] [address] Performed By: #### 5 7021-8 ####PUTNAM LABORATORYCLIA [id number] [address] CONSULT PROGon 10-19-2024 CONSULT PROG HNO ID: [id number] Author: MERVIN BELTRE APRN.HANGER OFF Service: Psychiatry Author Type: Nurse Practitioner Type: [...] capsule(s) 220 mg ORAL DAILY Mervin Beltre APRN.HANGER OFF 220 mg at 10/18/24 1452 traZODone 12.5 mg tab(s) (DESYREL) 12.5 mg ORAL QID PRN Mervin Beltre APRN.HANGER OFF 12.5 mg at 10/19/24 0245 phosphorus 250 [...] (97.7 ?F) (more content not included)... Normal [facility] MRI BRAIN WO IVCONon 025 MRI BRAIN WO IVCON * * *Final Report* * * DATE OF EXAM: Oct 19 2024 4:05PM [facility] 0294 - MRI BRAIN WO IVCON [...] background chronic microvascular change. No acute abnormalities. 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: [facility]IAL HOSPITALBecky Transcribe Date/Time: Oct 19 2024 4:09P Dictated by : CAROLEE CRAIG MD This examination was interpreted and the report reviewed and electronically signed by: CAROLEE CRAIG MD on Oct 19 2024 4:13PM EST [id number] Normal [facility] Magnesium SerPl-mCncon 10-19 Magnesium [Mass/Vol] 2.1 mg/dL Normal 1.7-2.3 [facility] Comment on above: Order Comment: Raghu sandoval Type: BLOOD SPECIMENOrdering Facility: [facility] Address: [address] [place] [address] Performed By: #### 2 4362-6, ####[facility] LABORATORYCLIA [id number] [place] [address] [place] Renal function 2000 panelon 10-19-2024 Albumin [Mass/Vol] 3.6 g/dL Low 3.9-4.9 [facility] Comment on above: Order Comment: Raghu sandoval Type: BLOOD SPECIMENOrdering Facility: [facility] Address: [address] [place] [address] Performed By: #### 2 4362, ####PUTNAM LABORATORYCLIA [id number] [place] [address] [place] Anion gap [Moles/Vol] 10 mmol/L Normal 8-15 [facility] Comment on above: Order Comment: Speci men Type: BLOOD SPECIMENOrdering Facility: [facility] Address: [address] [place] [address] Performed By: #### 2 4362-6, ####PUTNAM LABORATORYCLIA [id number] [place] [address] [place] Calcium [Mass/Vol] 9.3 mg/dL Normal 8.5-10.2 [facility] Comment on above: Order Comment: Speci men Type: BLOOD SPECIMENOrdering Facility: [facility] Address: [address] [place] [address] Performed By: #### 2 4366, ####PUTNAM LABORATORYCLIA [id number] [place] [address] [place] Chloride [Moles/Vol] 107 mmol/L Normal 98-107 [facility] Comment on above: Order Comment: Speci men Type: BLOOD SPECIMENOrdering Facility: [facility] Address: [address] [place] [address] Performed By: #### 2 4366, ####PUTNAM LABORATORYCLIA [id number] [place] [address] [place] CO2 [Moles/Vol] 25 mmol/L Normal 22-30 [facility] Comment on above: Order Comment: Speci men Type: BLOOD SPECIMENOrdering Facility: [facility] Address: [address] [place] [address] Performed By: #### 2 4362-6, ####PUTNAM LABORATORYCLIA [id number] [place] [address] [place] Creatinine [Mass/Vol] 1.08 mg/dL Normal 0.73-1.22 [facility] Comment on above: Order Comment: Speci men Type: BLOOD SPECIMENOrdering Facility: [facility] Address: [address] [place] [address] Performed By: #### 2 4362-6, ####PUTNAM LABORATORYCLIA [id number] [place] [id number] [facility] Creatinine and Glomerular filtration rate.predicted panel (S/P/Bld) 69 mL/min/1.73m??? Normal >=60 [facility] Comment on above: Order Comment: Raghu sandoval Type: BLOOD SPECIMENOrdering Facility: [facility] Address: [address] [place] [address] Result Comment: Carlita mated Glomerular Filtration Rate [...] Performed By: #### 2 4362-6, ####PUTNAM LABORATORYCLIA [id number] [place] [address] [place] [facility] Glucose [Mass/Vol] 113 mg/dL High 74-99 [facility] Comment on above: Order Comment: Raghu sandoval Type: BLOOD SPECIMENOrdering Facility: [facility] Address: [address] [place] [address] Result Comment: The [place] [employer] (ADA) provides guidance for cutoff [...] Standards of Medical Care in Diabetes 2016, [place] [employer]. Diabetes Care. 2016.39(Suppl 1). Performed By: #### 2 4362-6, ####PUTNAM LABORATORYCLIA [id number] [place] [address] [place] Phosphate [Mass/Vol] 3.2 mg/dL Normal 2.7-4.8 [facility] Comment on above: Order Comment: Speci men Type: BLOOD SPECIMENOrdering Facility: [facility] Address: [facility] [place] [place] [address] Performed By: #### 2 4362-6, ####PUTNAM LABORATORYCLIA [id number] [place] [address] [place] Potassium [Moles/Vol] 4.0 mmol/L Normal 3.7-5.1 [facility] Comment on above: Order Comment: Speci men Type: BLOOD SPECIMENOrdering Facility: [facility] Address: [address] [place] [address] Performed By: #### 2 4362-6, ####PUTNAM LABORATORYCLIA [id number] [place] [address] [place] Sodium [Moles/Vol] 142 mmol/L Normal 136-144 [facility] Comment on above: Order Comment: Speci men Type: BLOOD SPECIMENOrdering Facility: [facility] Address: [address] [place] [address] Performed By: #### 2 4362-6, ####PUTNAM LABORATORYCLIA [id number] [place] [address] [place] Urea nitrogen [Mass/Vol] 14 mg/dL Normal 9-24 [facility] Comment on above: Order Comment: Speci men Type: BLOOD SPECIMENOrdering Facility: [facility] Address: [address] [place] [address] Performed By: #### 2 4362-6, ####PUTNAM LABORATORYCLIA [id number] [place] [id number] [place] XR CHEST [...] acute process, redemonstration of calcified pleural plaques. 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 Transcribe Date/Time: Oct 19 2024 1:47A Dictated by : NANCY RIVERA MD This examination was interpreted and the report reviewed and electronically signed by: NANCY RIVERA MD on Oct 19 2024 1:49AM EST [id number] Normal [facility] CASE MANAGEMon 10-18-2024 CASE MANAGEM HNO ID: [id number] Author: DARBY DELUCA RN Service: ? Author Type: Registered Nurse Type: Care Mgt Progress Note Filed: 10/18/2024 14:55 Note Text: CARE MANAGEMENT PROGRESS NOTE SERVICE DATE: 10/18/2024 SERVICE TIME: 2:36 PM LOS: 3 days 10/15/24 Admission [facility] Consults: [facility] O2: room air Diet: regular + supplements Mervin Glanc SOLID PROPELLANT PROCESSOR HANGER OFF following/medication adjustments Anticipated Discharge Plan: Home with Family (Lives at Home with spouse but staying with son prior to admission.) Needs Prior to Discharge: To Be Determined Dept to Follow. SIGNATURE: Darby Deluca RN PATIENT NAME: Lory Johnson DATE: October 18, 2024 TIME: 2:36 PM Normal [facility] CBC panel Auto (Bld)on 10-18 Erythrocyte distribution width (RBC) [Ratio] 13.0 % Normal 11.5-15.0 [facility] Comment on above: Order Comment: Speci men Type: BLOOD SPECIMENOrdering Facility: [facility] Address: [address] [place] [address] Performed By: #### 5 8410-2 ####PUTNAM LABORATORYCLIA [id number] [address] Hematocrit (Bld) [Volume fraction] 37.6 % Low 39.0-51.0 [facility] Comment on above: Order Comment: Speci men Type: BLOOD SPECIMENOrdering Facility: [facility] Address: [address] [place] [address] Performed By: #### 5 8410-2 ####PUTNAM LABORATORYCLIA [id number] [address] Hemoglobin (Bld) [Mass/Vol] 13.1 g/dL Normal 13.0-17.0 [facility] Comment on above: Order Comment: Speci men Type: BLOOD SPECIMENOrdering Facility: [facility] Address: [address] [place] [address] Performed By: #### 5 8410-2 ####PUTNAM LABORATORYCLIA [id number] [address] MCH (RBC) [Entitic mass] 30.1 pg Normal 26.0-34.0 [facility] Comment on above: Order Comment: Speci men Type: BLOOD SPECIMENOrdering Facility: [facility] Address: [address] [place] [address] Performed By: #### 5 8410-2 ####PUTNAM LABORATORYCLIA [id number] [address] MCHC (RBC) [Mass/Vol] 34.8 g/dL Normal 30.5-36.0 [facility] Comment on above: Order Comment: Speci men Type: BLOOD SPECIMENOrdering Facility: [facility] Address: [address] [place] [address] Performed By: #### 5 8410-2 ####PUTNAM LABORATORYCLIA [id number] [address] MCV (RBC) [Entitic vol] 86.4 fL Normal 80.0-100.0 [facility] Comment on above: Order Comment: Speci men Type: BLOOD SPECIMENOrdering Facility: [facility] Address: [address] [place] [address] Performed By: #### 5 8410-2 ####PUTNAM LABORATORYCLIA [id number] [place] [address] [place] Nucleated RBC (Bld) [#/Vol] 10*3/uL Normal <0.01 [facility] Comment on above: Order Comment: Speci men Type: BLOOD SPECIMENOrdering Facility: [facility] Address: [address] [place] [address] Performed By: #### 5 8410-2 ####PUTNAM LABORATORYCLIA [id number] [place] [address] [place] Platelet mean volume (Bld) [Entitic vol] 10.2 fL Normal 9.0-12.7 [facility] Comment on above: Order Comment: Speci men Type: BLOOD SPECIMENOrdering Facility: [facility] Address: [address] [place] [address] Performed By: #### 5 8410-2 ####PUTNAM LABORATORYCLIA [id number] [address] [place] Platelets (Bld) [#/Vol] 212 10*3/uL Normal 150-400 [facility] Comment on above: Order Comment: Speci men Type: BLOOD SPECIMENOrdering Facility: [facility] Address: [address] [place] [address] Performed By: #### 5 8410-2 ####PUTNAM LABORATORYCLIA [id number] [place] [address] [place] RBC (Bld) [#/Vol] 4.35 10*6/uL Normal 4.20-6.00 [facility] Comment on above: Order Comment: Speci men Type: BLOOD SPECIMENOrdering Facility: [facility] Address: [address] [place] [address] Performed By: #### 5 8410-2 ####PUTNAM LABORATORYCLIA [id number] [address] [place] WBC (Bld) [#/Vol] 9.46 10*3/uL Normal 3.70-11.00 [facility] Comment on above: Order Comment: Speci men Type: BLOOD SPECIMENOrdering Facility: [facility] Address: [facility] [place] [id number] Performed By: #### 5 8410-2 ####INDY LABORATORYCLIA [id number] [place] [address] [place] CONSULT PROGon 10-18-2024 CONSULT PROG HNO ID: [id number] Author: MERVIN BELTRE APRN.HANGER OFF Service: Psychiatry Author Type: Nurse Practitioner Type: [...] 25 mg ORAL AT BEDTIME Mervin Beltre APRN.HANGER OFF 25 mg at 10/17/241957 traZODone 25 mg tab(s) (DESYREL) 25 mg ORAL AT BEDTIME PRN Mervin Beltre APRN.HANGER OFF traZODone 12.5 mg tab(s) (DESYREL) 12.5 mg ORAL QID PRN Mervin Beltre APRN.HANGER OFF phosphorus 250 mg tab(s) (K PHOS NEUTRAL) [...] Rigidity, Hyperreflexia, or Clonus. Moved Extremities Against [place]. Gait / Station: Unable to Examine: Lying in Bed MENTA (more content not included)... Normal [facility] Comprehensive metabolic 2000 panelon 10-18-2024 Albumin [Mass/Vol] 3.2 g/dL Low 3.9-4.9 [facility] Comment on above: Order Comment: Speci men Type: BLOOD SPECIMEN [facility] Address: [address] [place] [address] Performed By: #### 2 4323-8, 24280-7, 2776-10 #### [facility] CLIA [id number] [address] [place] [address] [place] ALP [Catalytic activity/Vol] 99 U/L Normal 38-113 [facility] Comment on above: Order Comment: Speci men Type: BLOOD SPECIMEN [facility] Address: [address] [place] [address] Performed By: #### 2 4323-8, , 2776-10 #### [facility] CLIA [id number] [address] [place] [address] [place] ALT [Catalytic activity/Vol] 12 U/L Normal 10-54 [facility] Comment on above: Order Comment: Speci men Type: BLOOD SPECIMEN [facility] Address: [address] [place] [address] Performed By: #### 2 4323-8, , 2776-10 #### [facility] CLIA [id number] [address] [place] [address] [place] Anion gap [Moles/Vol] 10 mmol/L Normal 8-15 [facility] Comment on above: Order Comment: Speci men Type: BLOOD SPECIMEN [facility] Address: [address] [place] [address] Performed By: #### 2 4323-8, , 2776-10 #### [facility] CLIA [id number] [address] [place] AST [Catalytic activity/Vol] 16 U/L Normal 14-40 [facility] Comment on above: Order Comment: Speci men Type: BLOOD SPECIMEN [facility] Address: [address] [place] [address] Performed By: #### 2 4323-8, , 2776-10 #### [facility] CLIA [id number] [address] [place] Bilirubin [Mass/Vol] 0.4 mg/dL Normal 0.2-1.3 [facility] Comment on above: Order Comment: Speci men Type: BLOOD SPECIMEN [facility] Address: [address] [place] [address] Performed By: #### 2 4323-8, , 2776-10 #### [facility] CLIA [id number] [address] [place] [address] [place] Calcium [Mass/Vol] 8.9 mg/dL Normal 8.5-10.2 [facility] Comment on above: Order Comment: Speci men Type: BLOOD SPECIMEN [facility] Address: [address] [place] [address] Performed By: #### 2 4323-8, , 2776-10 #### [facility] CLIA [id number] [address] [place] [address] [place] Chloride [Moles/Vol] 108 mmol/L High 98-107 [facility] Comment on above: Order Comment: Speci men Type: BLOOD SPECIMEN [facility] Address: [address] [place] [address] Performed By: #### 2 4323-8, , 2776-10 #### [facility] CLIA [id number] [address] [place] [address] [place] CO2 [Moles/Vol] 24 mmol/L Normal 22-30 [facility] Comment on above: Order Comment: Speci men Type: BLOOD SPECIMEN [facility] Address: [address] [place] [address] Performed By: #### 2 4323-8, , 2776-10 #### [facility] CLIA [id number] [address] [place] [address] [place] Creatinine [Mass/Vol] 1.17 mg/dL Normal 0.73-1.22 [facility] Comment on above: Order Comment: Speci men Type: BLOOD SPECIMEN [facility] Address: [address] [place] [address] Performed By: #### 2 4323-8, , 2776-10 #### [facility] CLIA [id number] [address] [place] [address] [place] Creatinine and Glomerular filtration rate.predicted panel (S/P/Bld) 63 mL/min/1.73m??? Normal >=60 [facility] Comment on above: Order Comment: Raghu sandoval Type: BLOOD SPECIMEN [facility] Address: [address] [place] [address] Result Comment: Carlita mated Glomerular Filtration Rate [...] actual GFR. Performed By: #### 2 4323-8, 59045-9, 2777-1 #### [facility] CLIA [id number] [address] [place] [address] [place] Glucose [Mass/Vol] 106 mg/dL High 74-99 [facility] Comment on above: Order Comment: Raghu sandoval Type: BLOOD SPECIMEN [facility] Address: [address] [place] [address] Result Comment: The [place] [employer] (ADA) provides guidance for cutoff [...] Standards of Medical Care in Diabetes 2016, [place] [employer]. Diabetes Care. 2016.39(Suppl 1). Performed By: #### 2 4323-8, 00351-5, 2777-1 #### [facility] CLIA [id number] [address] [place] [address] [place] Potassium [Moles/Vol] 3.7 mmol/L Normal 3.7-5.1 [facility] Comment on above: Order Comment: Raghu sandoval Type: BLOOD SPECIMEN Ordering Facility: [facility] Address: [address] [place], [place] [address] Performed By: #### 2 4323-8, 17850-3, 2776-1 #### [facility] CLIA [id number] [address] Protein [Mass/Vol] 6.4 g/dL Normal 6.3-8.0 [facility] Comment on above: Order Comment: Speci men Type: BLOOD SPECIMEN Ordering Facility: [facility] Address: [address] [place] [address] Performed By: #### 2 4323-8, 02922-6, 2776-1 #### [facility] CLIA [id number] [address] [place] Sodium [Moles/Vol] 142 mmol/L Normal 136-144 [facility] Comment on above: Order Comment: Speci men Type: BLOOD SPECIMEN Ordering Facility: [facility] Address: [address] [place] [address] Performed By: #### 2 4323-8, , 2776-10 #### [facility] CLIA [id number] [address] STATES OF [facility] Urea nitrogen [Mass/Vol] 13 mg/dL Normal 9-24 [facility] Comment on above: Order Comment: Speci men Type: BLOOD SPECIMEN Ordering Facility: [facility] Address: [address] [place] [address] Performed By: #### 2 4323-8, 54911-6, 27704-04 #### [facility] CLIA [id number] [address] [place] ECG COMPLETEon 10-18-2024 ECG COMPLETE Ventricular Rate : 6 4 BPM QRS Duration : 80 ms Q-T Interval : 434 ms QTC Calculation(Bazett) : 447 ms Calculated R [place] : 33 degrees Calculated T [place] : 39 degrees SINUS RHYTHM EARLY REPOLARIZATION BORDERLINE ECG BASELINE ARTIFACT NO PREVIOUS ECGS AVAILABLE Confirmed by MD CAAL GREGORY () on 10/19/2024 8:49:48 AM NAME : LORY JOHNSON PID : [id number] : 1945 Gender : Male Race : ORD : [id number] Procedure Date : Oct 18 2024 12:39:54 Edit Date : Oct 19 2024 08:49:52 Diagnosis: SINUS RHYTHM EARLY REPOLARIZATION BORDERLINE ECG BASELINE ARTIFACT NO PREVIOUS ECGS AVAILABLE Confirmed by MD CAAL GREGORY () on 10/19/2024 8:49:48 AM Test Reason : Assess QTc Location : 16 : [address] [place] [address] Overread By : MD CAAL GREGORY Edited By : MD CAAL GREGORY Referred By : DOMENICO CHOUDHURY Acquired by : [id number], Normal [facility] Magnesium SerPl-mCncon 10-18 Magnesium [Mass/Vol] 1.9 mg/dL Normal 1.7-2.3 [facility] Comment on above: Order Comment: Raghu sandoval Type: BLOOD SPECIMEN Ordering Facility: [facility] Address: [address] [place] [address] Performed By: #### 2 4323-8, 96088-9, 2777-1 #### [facility] CLIA [id number] [address] [place] [address] [place] Phosphate SerPl-mCncon 10-18 Phosphate [Mass/Vol] 3.1 mg/dL Normal 2.7-4.8 [facility] Comment on above: Order Comment: Raghu sandoval Type: BLOOD SPECIMEN Ordering Facility: [facility] Address: [address] [place] [address] Performed By: #### 2 4323-8, 03023-7, 2777-1 #### [facility] CLIA [id number] [address] [place] [address] [place] 25(OH)D3 SerPl-mCncon 2024 25-hydroxyvitamin D3 [Mass/Vol] 52.8 ng/mL Normal 31.0-80.0 [facility] Comment on above: Order Comment: Raghu sandoval Type: BLOOD SPECIMENOrdering Facility: [facility] Address: [address] [place] [address] Result Comment: Clas sification of 25 [place] Vitamin D status: Deficiency/Insufficiency: < or = 30 ng/ml. Sufficiency/Optimal Levels: 31-80 ng/mL Toxicity: > 100 ng/mL. Test performed by chemiluminescent immunoassay. Performed By: #### 1 989-3 ####[facility] LABCLIA [id number] [facility] [id number] CBC panel Auto (Bld)on 10-17 Erythrocyte distribution width (RBC) [Ratio] 13.0 % Normal 11.5-15.0 [facility] Comment on above: Order Comment: Speci men Type: BLOOD SPECIMENOrdering Facility: [facility] Address: [address] [place] [address] Performed By: #### 5 8410-2 ####[facility] [id number] [address] Hematocrit (Bld) [Volume fraction] 39.1 % Normal 39.0-51.0 [facility] Comment on above: Order Comment: Speci men Type: BLOOD SPECIMENOrdering Facility: [facility] Address: [address] [place] [address] Performed By: #### 5 8410-2 ####[facility] [id number] [address] Hemoglobin (Bld) [Mass/Vol] 13.6 g/dL Normal 13.0-17.0 [facility] Comment on above: Order Comment: Speci men Type: BLOOD SPECIMENOrdering Facility: [facility] Address: [address] [place] [address] Performed By: #### 5 8410-2 ####[facility] [id number] [address] MCH (RBC) [Entitic mass] 30.2 pg Normal 26.0-34.0 [facility] Comment on above: Order Comment: Speci men Type: BLOOD SPECIMENOrdering Facility: [facility] Address: [address] [place] [address] Performed By: #### 5 8410-2 ####[facility] [id number] [address] MCHC (RBC) [Mass/Vol] 34.8 g/dL Normal 30.5-36.0 [facility] Comment on above: Order Comment: Speci men Type: BLOOD SPECIMENOrdering Facility: [facility] Address: [address] [place] [address] Performed By: #### 5 8410-2 ####[facility] [id number] [address] [place] MCV (RBC) [Entitic vol] 86.7 fL Normal 80.0-100.0 [facility] Comment on above: Order Comment: Speci men Type: BLOOD SPECIMENOrdering Facility: [facility] Address: [address] [place] [address] Performed By: #### 5 8410-2 ####[facility] [id number] [address] Nucleated RBC (Bld) [#/Vol] 10*3/uL Normal <0.01 [facility] Comment on above: Order Comment: Speci men Type: BLOOD SPECIMENOrdering Facility: [facility] Address: [address] [place] [address] Performed By: #### 5 8410-2 ####[facility] [id number] [address] [place] Platelet mean volume (Bld) [Entitic vol] 9.9 fL Normal 9.0-12.7 [facility] Comment on above: Order Comment: Speci men Type: BLOOD SPECIMENOrdering Facility: [facility] Address: [address] [place] [address] Performed By: #### 5 8410-2 ####[facility] [id number] [address] [place] Platelets (Bld) [#/Vol] 218 10*3/uL Normal 150-400 [facility] Comment on above: Order Comment: Speci men Type: BLOOD SPECIMENOrdering Facility: [facility] Address: [address] [place] [address] Performed By: #### 5 8410-2 ####[facility] [id number] [place] [address] [place] RBC (Bld) [#/Vol] 4.51 10*6/uL Normal 4.20-6.00 [facility] Comment on above: Order Comment: Speci men Type: BLOOD SPECIMENOrdering Facility: [facility] Address: [address] [place], [place] [address] Performed By: #### 5 8410-2 ####[facility] [id number] [address] WBC (Bld) [#/Vol] 7.48 10*3/uL Normal 3.70-11.00 [facility] Comment on above: Order Comment: Speci men Type: BLOOD SPECIMENOrdering Facility: [facility] Address: [address] [place] [address] Performed By: #### 5 8410-2 ####[facility] [id number] [address] CONSULTon 10-17-2024 CONSULT HNO ID: [id number] Author: MERVIN BELTRE APRN.HANGER OFF Service: Psychiatry Author Type: Nurse Practitioner Type: [...] is a 79 year old male from [place], [place] HISTORY OF PRESENT ILLNESS : 79-year-old [...] others. Diagnoses: (more content not included)... Normal [facility] COPPER BLOODon 10-17-2024 Copper [Mass/Vol] 113 ug/dL Normal 70-140 [facility] Comment on above: Order Comment: Speci men Type: BLOOD SPECIMENOrdering Facility: [facility] Address: [address] [place] [address] Result Comment: This test was developed, and its performance characteristics determined by the [facility] Department of Pathology and Laboratory Medicine. It has not been cleared or approved by the FDA. The [facility] Department of Pathology and Laboratory Medicine is regulated under CLIA as qualified to perform high-complexity testing. This test is used for clinical purposes. It should not be regarded as investigational or for research. Performed By: #### C JUAN MANUEL, 5763-8 ####[facility] LABCLIA [id number] [place] [address] [place] Comprehensive metabolic 2000 panelon 10-17-2024 Albumin [Mass/Vol] 3.7 g/dL Low 3.9-4.9 [facility] Comment on above: Order Comment: Speci men Type: BLOOD SPECIMENOrdering Facility: [facility] Address: [address] [place] [address] Performed By: #### 2 4323-8, 66867-3, 2132-06, 2284-05 ####[facility] [id number] [place] [address] [place] ALP [Catalytic activity/Vol] 102 U/L Normal 38-113 [facility] Comment on above: Order Comment: Speci men Type: BLOOD SPECIMENOrdering Facility: [facility] Address: [address] [place] [address] Performed By: #### 2 4323-8, , 2132-06, 2284-05 ####[facility] [id number] [address] [place] ALT [Catalytic activity/Vol] 12 U/L Normal 10-54 [facility] Comment on above: Order Comment: Speci men Type: BLOOD SPECIMENOrdering Facility: [facility] Address: [facility] [place] [address] Performed By: #### 2 4323-8, , 2132-06, 2284-05 ####[facility] [id number] [address] STATES [facility] Anion gap [Moles/Vol] 12 mmol/L Normal 8-15 [facility] Comment on above: Order Comment: Speci men Type: BLOOD SPECIMENOrdering Facility: [facility] Address: [address] [place] [address] Performed By: #### 2 4323-8, 66419-3, 2132-06, 2284-05 ####[facility] [id number] [address] [place] AST [Catalytic activity/Vol] 17 U/L Normal 14-40 [facility] Comment on above: Order Comment: Speci men Type: BLOOD SPECIMENOrdering Facility: [facility] Address: [address] [place] [address] Performed By: #### 2 4323-8, 01517-4, 2132-06, 2284-05 ####[facility] [id number] [place] [address] [place] Bilirubin [Mass/Vol] 0.4 mg/dL Normal 0.2-1.3 [facility] Comment on above: Order Comment: Speci men Type: BLOOD SPECIMENOrdering Facility: [facility] Address: [address] [place] [address] Performed By: #### 2 4323-8, , 2132-06, 2284-05 ####[facility] [id number] [place] [address] [place] Calcium [Mass/Vol] 9.2 mg/dL Normal 8.5-10.2 [facility] Comment on above: Order Comment: Speci men Type: BLOOD SPECIMENOrdering Facility: [facility] Address: [address] [place] [address] Performed By: #### 2 4323-8, , 2132-06, 2284-05 ####[facility] [id number] [place] [address] [place] Chloride [Moles/Vol] 108 mmol/L High 98-107 [facility] Comment on above: Order Comment: Speci men Type: BLOOD SPECIMENOrdering Facility: [facility] Address: [address] [place] [address] Performed By: #### 2 4323-8, , 2132-06, 2284-05 ####[facility] [id number] [place] [address] [place] CO2 [Moles/Vol] 25 mmol/L Normal 22-30 [facility] Comment on above: Order Comment: Speci men Type: BLOOD SPECIMENOrdering Facility: [facility] Address: [address] [place] [address] Performed By: #### 2 4323-8, , 2132-06, 8 ####[facility] [id number] [place] [address] [place] Creatinine [Mass/Vol] 1.07 mg/dL Normal 0.73-1.22 [facility] Comment on above: Order Comment: Raghu sandoval Type: BLOOD SPECIMENOrdering Facility: [facility] Address: [address] [address] Performed By: #### 2 4323-8, 87474-8, 9, 2284-05 ####[facility] [id number] [place] [id number] [place] Creatinine and Glomerular filtration rate.predicted panel (S/P/Bld) 70 mL/min/1.73m??? Normal >=60 [facility] Comment on above: Order Comment: Raghu sandoval Type: BLOOD SPECIMENOrdering Facility: [facility] Address: [address] [place] [address] Result Comment: Carlita mated Glomerular Filtration Rate [...] actual GFR. Performed By: #### 2 4323-8, 98233-9, 2132-06, 2284-05 ####[facility] [id number] [place] [id number] [place] Glucose [Mass/Vol] 103 mg/dL High 74-99 [facility] Comment on above: Order Comment: Raghu sandoval Type: BLOOD SPECIMENOrdering Facility: [facility] Address: [address] [place] [address] Result Comment: The [place] [employer] (ADA) provides guidance for cutoff [...] Standards of Medical Care in Diabetes 2016, [place] [employer]. Diabetes Care. 2016.39(Suppl 1). Performed By: #### 2 4323-8, , 2132-06, 2284-05 ####[facility] [id number] [place] [address] [place] Potassium [Moles/Vol] 3.6 mmol/L Low 3.7-5.1 [facility] Comment on above: Order Comment: Speci men Type: BLOOD SPECIMENOrdering Facility: [facility] Address: [address] [place], [place] [address] Performed By: #### 2 4323-8, , 2132-06, 2284-05 ####[facility] [id number] [place] [address] [place] Protein [Mass/Vol] 6.2 g/dL Low 6.3-8.0 [facility] Comment on above: Order Comment: Speci men Type: BLOOD SPECIMENOrdering Facility: [facility] Address: [address] [place] [address] Performed By: #### 2 4323-8, , 2132-06, 2284-05 ####[facility] [id number] [place] [address] [place] Sodium [Moles/Vol] 145 mmol/L High 136-144 [facility] Comment on above: Order Comment: Speci men Type: BLOOD SPECIMENOrdering Facility: [facility] Address: [address] [place] [address] Performed By: #### 2 4323-8, 42518-5, 2132-06, 2284-05 ####[facility] [id number] [place] [id number] [place] Urea nitrogen [Mass/Vol] 11 mg/dL Normal 9-24 [facility] Comment on above: Order Comment: Speci men Type: BLOOD SPECIMENOrdering Facility: [facility] Address: [address] [place] [address] Performed By: #### 2 4323-8, 25481-0, 9, 8 ####[facility]IA [id number] [place] [address] [facility] [place] Folate SerPl-mCncon 10-17-19 25 Folate [Mass/Vol] ng/mL Normal >4.7 [facility] Comment on above: Order Comment: Speci men Type: BLOOD SPECIMENOrdering Facility: [facility] Address: [address] [place] [address] Result Comment: A re sult of > 20 ng/mL is not necessarily indicative of a pathologic or treatable condition: it reflects a limitation of the test methodology. Assay reference range: 4.8 to 24.2 ng/mL. Suitable for detection of folate deficiency. Reference: Folate III (Folate III) [package insert V 1.0 [place]]. [employer] [place], [place], [place]: August 2015. Performed By: #### 2 4323-8, 13108-6, 2132-06, 2284-05 ####[facility] [id number] [place] [id number] [facility] [place] Magnesium SerPl-mCncon 10-17 Magnesium [Mass/Vol] 2.0 mg/dL Normal 1.7-2.3 [facility] Comment on above: Order Comment: Speci men Type: BLOOD SPECIMENOrdering Facility: [facility] Address: [address] [place] [address] Performed By: #### 2 4323-8, , 2132-06, 2284-05 ####[facility] [id number] [place] [id number] [place] VITAMIN B6/PYRIDOXINon 10-17 VITAMIN B6 17.7 nmol/L Low 20.0-125.0 [facility] Comment on above: Order Comment: Speci men Type: BLOOD SPECIMENOrdering Facility: [facility] Address: [address] [place] [address] Result Comment: INTE RPRETIVE INFORMATION: Vitamin B6 (Pyridoxal 5-Phosphate) Pyridoxal 5'-phosphate measured in a specimen collected following an 8-hour or overnight fast accurately indicates vitamin B6 nutritional status. Non-fasting specimen concentration reflects recent vitamin intake. This test was developed and its performance characteristics determined by [employer]. It has not been cleared or approved by the [place] Food and Drug Administration. This test was performed in a CLIA certified laboratory and is intended for clinical purposes. Performed By: [facility] [address] [place] [address] Language Tutor: Kenan Brunner MD, PhD CLIA Number: [id number] Performed By: #### V ITB6 ####[facility]ITAL[facility] [id number] [place] [address] Vit B12 SerPl-mCncon 025 Cobalamin (Vitamin B12) [Mass/Vol] 706 pg/mL Normal 232-1245 [facility] Comment on above: Order Comment: Speci men Type: BLOOD SPECIMENOrdering Facility: [facility] Address: [address] [place] [address] Performed By: #### 2 4323-8, 90471-9, 2132-9, 4-8 ####[facility]IA [id number] [place] [address] [place] Zinc SerPl-mCncon 10-17-2024 Zinc [Mass/Vol] 56 ug/dL Low 60-120 [facility] Comment on above: Order Comment: Specsrinath sandoval Type: BLOOD SPECIMENOrdering Facility: [facility] Address: [address] [place] [address] Result Comment: This test was developed, and its performance characteristics determined by the [facility] Department of Pathology and Laboratory Medicine. It has not been cleared or approved by the FDA. The [facility] Department of Pathology and Laboratory Medicine is regulated under CLIA as qualified to perform high-complexity testing. This test is used for clinical purposes. It should not be regarded as investigational or for research. Performed By: #### C JUAN MANUEL, 5763-8 ####[facility] LABCLIA [id number] [place] [address] [place] Ammonia Plas-sCncon 10-16-19 25 Ammonia (P) [Moles/Vol] 10 umol/L Low 16-60 [facility] Comment on above: Order Comment: Speci men Type: BLOOD SPECIMENOrdering Facility: [facility] Address: [address] [place] [address] Performed By: #### 1 6362-6 ####[facility]IA [id number] [address] CBC panel Auto (Bld)on 10-16 Erythrocyte distribution width (RBC) [Ratio] 12.9 % Normal 11.5-15.0 [facility] Comment on above: Order Comment: Speci men Type: BLOOD SPECIMENOrdering Facility: [facility] Address: [address] [place] [address] Performed By: #### 5 8410-2 ####[facility]ORYCLIA [id number] [address] Hematocrit (Bld) [Volume fraction] 36.5 % Low 39.0-51.0 [facility] Comment on above: Order Comment: Speci men Type: BLOOD SPECIMENOrdering Facility: [facility] Address: [address] [place] [address] Performed By: #### 5 8410-2 ####[facility]ORY[facility]IA [id number] [address] Hemoglobin (Bld) [Mass/Vol] 12.7 g/dL Low 13.0-17.0 [facility] Comment on above: Order Comment: Speci men Type: BLOOD SPECIMENOrdering Facility: [facility] Address: [address] [place] [address] Performed By: #### 5 8410-2 ####[facility]ORYCLIA [id number] [address] MCH (RBC) [Entitic mass] 30.3 pg Normal 26.0-34.0 [facility] Comment on above: Order Comment: Speci men Type: BLOOD SPECIMENOrdering Facility: [facility] Address: [address] [place] [address] Performed By: #### 5 8410-2 ####[facility]ORYCLIA [id number] [address] MCHC (RBC) [Mass/Vol] 34.8 g/dL Normal 30.5-36.0 [facility] Comment on above: Order Comment: Speci men Type: BLOOD SPECIMENOrdering Facility: [facility] Address: [address] [place] [address] Performed By: #### 5 8410-2 ####[facility]ORYCLIA [id number] [place] [address] [place] MCV (RBC) [Entitic vol] 87.1 fL Normal 80.0-100.0 [facility] Comment on above: Order Comment: Speci men Type: BLOOD SPECIMENOrdering Facility: [facility] Address: [address] [place] [address] Performed By: #### 5 8410-2 ####[facility]ORYCLIA [id number] [place] [address] [place] Nucleated RBC (Bld) [#/Vol] 10*3/uL Normal <0.01 [facility] Comment on above: Order Comment: Speci men Type: BLOOD SPECIMENOrdering Facility: [facility] Address: [address] [place] [address] Performed By: #### 5 8410-2 ####[facility]ORYCLIA [id number] [place] [address] [place] Platelet mean volume (Bld) [Entitic vol] 9.7 fL Normal 9.0-12.7 [facility] Comment on above: Order Comment: Speci men Type: BLOOD SPECIMENOrdering Facility: [facility] Address: [address] [place] [address] Performed By: #### 5 8410-2 ####[facility]ORY[facility]IA [id number] [place] [address] [place] Platelets (Bld) [#/Vol] 206 10*3/uL Normal 150-400 [facility] Comment on above: Order Comment: Speci men Type: BLOOD SPECIMENOrdering Facility: [facility] Address: [address] [place] [address] Performed By: #### 5 8410-2 ####[facility]ORYCLIA [id number] [place] [address] [facility] [place] RBC (Bld) [#/Vol] 4.19 10*6/uL Low 4.20-6.00 [facility] Comment on above: Order Comment: Speci men Type: BLOOD SPECIMENOrdering Facility: [facility] Address: [address] [place], [place] [address] Performed By: #### 5 8410-2 ####[facility]ORYCLIA [id number] [place] [address] [facility] WBC (Bld) [#/Vol] 7.53 10*3/uL Normal 3.70-11.00 [facility] Comment on above: Order Comment: Speci men Type: BLOOD SPECIMENOrdering Facility: [facility] Address: [address] [place] [address] Performed By: #### 5 8410-2 ####[facility]ORYCLIA [id number] [address] CONSULTon 10-16-2024 CONSULT HNO ID: [id number] Author: ELVIN ALEMAN MD Service: Neurology General [...] pm [facility]: 1 pm to 5 pm [facility]: 3 pm to 5 pm Statutory holidays do not have teleneuro coverage. [place]: During Off hours for Teleneurology please page (not call) [facility] [id number] plant protection supervisor for concerns. [place]: During Off hours for Teleneurology please page (not call) [place] [facility] [phone] plant protection supervisor for concerns. [facility]: There is no off-hours coverage for Teleneurology. [...] was last seen by general neurology and [facility] both on 10/14/2024 AT ED, BP was [...] ml/min (HCC) 04/11/2024 Dementia without behavioral disturbance ([facility]) 05/15/2016 MMSE: 22 05/2016, MMSE: 06/2019, 23 Elevated fasting blood sugar 12/01/2018 Emphysema lung (HCC) 10/23/2023 Essential hypertension, benign 05/12/20 (more content not included)... Normal [facility] Comprehensive metabolic 2000 panelon 10-16-2024 Albumin [Mass/Vol] 3.5 g/dL Low 3.9-4.9 [facility] Comment on above: Order Comment: Speci men Type: BLOOD SPECIMENOrdering Facility: [facility] Address: [address] [place] [address] [place], [place] [address] Performed By: #### 1 0114-3, 60355-6, 3016-3, 22873-8 ####[facility] LABORATORYCLIA [id number] [place] [address] [place] [facility] ALP [Catalytic activity/Vol] 98 U/L Normal 38-113 [facility] Comment on above: Order Comment: Speci men Type: BLOOD SPECIMENOrdering Facility: [facility] Address: [address] [place] [address] Performed By: #### 1 9123-9, 61821-5, 3016-3, 08127-2 ####[facility] LABORATORYCLIA [id number] [address] [place] ALT [Catalytic activity/Vol] 12 U/L Normal 10-54 [facility] Comment on above: Order Comment: Speci men Type: BLOOD SPECIMENOrdering Facility: [facility] Address: [address] [place] [address] Performed By: #### 1 9123-9, 12252-0, 3016-3, 29942-8 ####[facility] LABORATORYCLIA [id number] [address] STATES [facility] Anion gap [Moles/Vol] 10 mmol/L Normal 8-15 [facility] Comment on above: Order Comment: Speci men Type: BLOOD SPECIMENOrdering Facility: [facility] Address: [address] [place] [address] Performed By: #### 1 9123-9, 72840-7, 3016-3, 24514-1 ####[facility] LABORATORYCLIA [id number] [address] [place] AST [Catalytic activity/Vol] 16 U/L Normal 14-40 [facility] Comment on above: Order Comment: Speci men Type: BLOOD SPECIMENOrdering Facility: [facility] Address: [address] [place] [address] Performed By: #### 1 9123-9, 50904-4, 3016-3, 76109-8 ####[facility] LABORATORYCLIA [id number] [place] [id number] [facility] Bilirubin [Mass/Vol] 0.5 mg/dL Normal 0.2-1.3 [facility] Comment on above: Order Comment: Speci men Type: BLOOD SPECIMENOrdering Facility: [facility] Address: [facility] [place] [address] Performed By: #### 1 9123-9, 17609-5, 3016-3, 02682-3 ####[facility] LABORATORYCLIA [id number] [place] [address] [place] Calcium [Mass/Vol] 9.1 mg/dL Normal 8.5-10.2 [facility] Comment on above: Order Comment: Speci men Type: BLOOD SPECIMENOrdering Facility: [facility] Address: [address] [place] [address] Performed By: #### 1 9123-9, 79068-4, 3016-3, 86566-6 ####EL[facility] LABORATORYCLIA [id number] [place] [address] [place] Chloride [Moles/Vol] 103 mmol/L Normal 98-107 [facility] Comment on above: Order Comment: Speci men Type: BLOOD SPECIMENOrdering Facility: [facility] Address: [address] [place] [address] Performed By: #### 1 9123-9, 37290-1, 301-3, 06412-9 ####EL[facility] LABORATORYCLIA [id number] [place] [address] [place] CO2 [Moles/Vol] 25 mmol/L Normal 22-30 [facility] Comment on above: Order Comment: Speci men Type: BLOOD SPECIMENOrdering Facility: [facility] Address: [address] [place] [address] Performed By: #### 1 9123-9, 87575-5, 3016-3, 29768-5 ####ELWE[facility] LABORATORYCLIA [id number] [place] [address] [place] Creatinine [Mass/Vol] 1.08 mg/dL Normal 0.73-1.22 [facility] Comment on above: Order Comment: Speci men Type: BLOOD SPECIMENOrdering Facility: [facility] Address: [address] [place], [place] [address] Performed By: #### 1 9123-9, 36694-9, 3016-3, 19940-1 ####ELWELL LABORATORYCLIA [id number] [place] [address] [place] Creatinine and Glomerular filtration rate.predicted panel (S/P/Bld) 69 mL/min/1.73m??? Normal >=60 [facility] Comment on above: Order Comment: Raghu sandoval Type: BLOOD SPECIMENOrdering Facility: [facility] Address: [address] [place] [address] Result Comment: Carlita mated Glomerular Filtration Rate [...] actual GFR. Performed By: #### 1 9123-9, 23587-3, 3016-3, 00558-6 ####ELWELL LABORATORYCLIA [id number] [place] [address] [place] Glucose [Mass/Vol] 101 mg/dL High 74-99 [facility] Comment on above: Order Comment: Raghu sandoval Type: BLOOD SPECIMENOrdering Facility: [facility] Address: [address] [place] [address] Result Comment: The [place] Diabetes Association (ADA) provides guidance for cutoff [...] Standards of Medical Care in Diabetes 2016, [place] [employer]. Diabetes Care. 2016.39(Suppl 1). Performed By: #### 1 9123-9, 84826-3, 3016-3, 68343-4 ####[facility] LABORATORYCLIA [id number] [place] [address] [place] Potassium [Moles/Vol] 3.2 mmol/L Low 3.7-5.1 [facility] Comment on above: Order Comment: Speci men Type: BLOOD SPECIMENOrdering Facility: [facility] Address: [address] [place] [address] Performed By: #### 1 9123-9, 55846-4, 3016-3, 62068-7 ####ELWE[facility] LABORATORYCLIA [id number] [place] [id number] [place] Protein [Mass/Vol] 6.3 g/dL Normal 6.3-8.0 [facility] Comment on above: Order Comment: Speci men Type: BLOOD SPECIMENOrdering Facility: [facility] Address: [address] [place] [address] Performed By: #### 1 9123-9, 80125-1, 3016-3, 86929-7 ####EL[facility] LABORATORYCLIA [id number] [place] [address] [place] Sodium [Moles/Vol] 138 mmol/L Normal 136-144 [facility] Comment on above: Order Comment: Speci men Type: BLOOD SPECIMENOrdering Facility: [facility] Address: [address] [place] [address] Performed By: #### 1 9123-9, 49990-7, 3016-3, 48659-7 ####EL[facility] LABORATORYCLIA [id number] [place] [id number] [place] Urea nitrogen [Mass/Vol] 12 mg/dL Normal 9-24 [facility] Comment on above: Order Comment: Speci men Type: BLOOD SPECIMENOrdering Facility: [facility] Address: [address] [place] [address] Performed By: #### 1 9123-9, 17807-7, 3016-3, 31092-9 ####EL[facility] LABORATORYCLIA [id number] [place] [address] [place] Magnesium SerPl-mCncon 10-16 Magnesium [Mass/Vol] 1.9 mg/dL Normal 1.7-2.3 [facility] Comment on above: Order Comment: Speci men Type: BLOOD SPECIMENOrdering Facility: [facility] Address: [address] [place] [address] Performed By: #### 1 9123-9, 89787-5, 3016-3, 35884-0 ####ELWE[facility] LABORATORYCLIA [id number] [place] [id number] [facility] NT-proBNP [facility] Natriuretic peptide.B prohormone N-Terminal [Mass/Vol] 224 pg/mL Normal <450 [facility] Comment on above: Order Comment: Raghu sandoval Type: BLOOD SPECIMENOrdering Facility: [facility] Address: [address] [place] [address] Performed By: #### 2 777-1, 34356-0 ####EL[facility] LABORATORYCLIA [id number] [address] NURSING PROGon 10-16-2024 NURSING PROG HNO ID: [id number] Author: CURTIS GARZA RN Service: Nursing Author [...] bed trying to pull out 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 Orders received. Normal [facility] Phosphate SerPl-mCncon 10-16 Phosphate [Mass/Vol] 2.6 mg/dL Low 2.7-4.8 [facility] Comment on above: Order Comment: Speci men Type: BLOOD SPECIMENOrdering Facility: [facility] Address: [address] [place] [address] Performed By: #### 2 777-1, 54340-5 ####[facility] LABORATORYCLIA [id number] [address] Procalcitonin SerPl-mCncon 0 10-16-2024 Procalcitonin [Mass/Vol] 0.09 ng/mL High <0.09 [facility] Comment on above: Order Comment: Speci men Type: BLOOD SPECIMENOrdering Facility: [facility] Address: [address] [place] [address] Result Comment: For a guided interpretation of test results, please visit the Change in Procalcitonin Calculator, [email or web address]. Performed By: #### 1 9123-9, 51643-6, 3016-3, 03613-7 ####[facility] LABORATORYCLIA [id number] [address] THERAPY NTon 10-16-2024 THERAPY NT HNO ID: [id number] Author: LOLY ARREGUIN [facility] [employer] Service: Speech/Swallow Author Type: Speech Language Pathologist Type: Therapy (PT/OT/Speech/Resp) Filed: 10/16/2024 12:41 Note Text: Speech Therapy Clinical Swallow Evaluation SERVICE DATE: 10/16/2024 SERVICE TIME: 1214 to 1238 ROOM: [place] [address] IMPRESSION Functional oropharyngeal phases of swallowing: without [...] Skilled Need TREATMENT INTERVENTIONS Clinical Swallow Evaluation (23594) Skilled Treatment Time (minutes): 24 TRAINING AND [...] admission, but no slurring noted durring session. [employer] recommends no change to diet and no further tx at this time. Compensatory Strategies Utilized During Assessment: Alert (patient should be fully alert for P.O. intake), 1:1 Supervision, Alternate bites and sips, Sit upright 90 degrees for all PO, Small Bite/Sip, Self-monitoring [place] Swallow Protocol: Pass GOALS Patient /Caregiver Goals: Go Home PLAN ST Frequency: Discontinue Therapy Services Reasons Inpatient Therapy Services Discontinued: Patient appears safe and appropriate re: communication, cognition, and swallow function with the ability to return to a baseline level of function, No skilled needs Treatment Interventions: Dysphagia Management Plan of Care Developed with: Patient, Nurse SIGNATURE: Loly Arreguin [facility] PATIENT NAME: Lory Johnson DATE: October 16, 2024 TIME: 12:40 PM [facility] SerPl-aCncon 10-16-2024 TSH Qn 3.030 m[IU]/L Normal 0.270-4.20 0 [facility] Comment on above: Order Comment: Raghu sandoval Type: BLOOD SPECIMENOrdering Facility: [facility] Address: [address] [place] [address] [place] [address] Performed By: #### 1 9123-9, 58990-2, 3016-3, 39744-3 ####[facility] LABORATORYCLIA [id number] [place] [address] [facility] ALLIED HEALTHon 10-15-2024 ALLIED HEALTH HNO ID: [id number] Author: SHIRA DALTON Tech Service: ? 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: No RADIOLOGY DEPARTMENT: General X-ray: Exam(s) Completed: Chest X-Ray PERIPHERAL IV DATA: Not applicable SIGNED BY: Darling Humphreys October 15, 2024 6:07 PM Normal [facility] ARTERIAL BLOOD GASESon 10-15 Base excess Calc (Bld) [Moles/Vol] 1 mmol/L Normal 0-2 [facility] Comment on above: Order Comment: Raghu sandoval Type: ARTERIAL BLOOD SPECIMENOrdering Facility: [facility] Address: [address] [place], [place] [address] [address] Performed By: #### A LLBG ####INDY RESPIRATORYCLIA [id number] [facility] RESPIRATORY [id number] [address] [address] Carboxyhemoglobin (BldA) [Mass fraction] 1.4 % Normal 0.0-2.0 [facility] Comment on above: Order Comment: Speci men Type: ARTERIAL BLOOD SPECIMENOrdering Facility: [facility] Address: [address] [place] [address] Result Comment: Carb oxyhemoglobin Reference Range for Smokers: 2.0-8.0% Performed By: #### A LLBG ####[facility] RESPIRATORYCLIA [id number] [facility] RESPIRATORY [id number] [address] [address] CO2 (Bld) [Partial pressure] 37 mm Hg Normal 36-46 [facility] Comment on above: Order Comment: Speci men Type: ARTERIAL BLOOD SPECIMENOrdering Facility: [facility] Address: [address] [place] [address] Performed By: #### A LLBG ####[facility] RESPIRATORYCLIA [id number] [facility] RESPIRATORY [id number] [address] [address] CO2 adjusted to patient's actual temperature (Bld) [Partial pressure] Normal [facility] Comment on above: Order Comment: Speci men Type: ARTERIAL BLOOD SPECIMENOrdering Facility: [facility] Address: [address] [place] [address] Performed By: #### A LLBG ####[facility] RESPIRATORYCLIA [id number] [facility] RESPIRATORY [id number] [address] [address] HCO3 (Bld) [Moles/Vol] 25 mmol/L Normal 22-26 [facility] Comment on above: Order Comment: Speci men Type: ARTERIAL BLOOD SPECIMENOrdering Facility: [facility] Address: [address] [place] [address] Performed By: #### A LLBG ####[facility] RESPIRATORYCLIA [id number] [facility] RESPIRATORY [id number] [address] [address] Hemoglobin (Bld) [Mass/Vol] 14.3 g/dL Normal 13.0-17.0 [facility] Comment on above: Order Comment: Speci men Type: ARTERIAL BLOOD SPECIMENOrdering Facility: [facility] Address: [address] [place] [address] Performed By: #### A LLBG ####[facility] RESPIRATORYCLIA [id number] [facility] RESPIRATORY [id number] [address] [address] Lactate [Moles/Vol] 1.4 mmol/L Normal 0.5-2.2 [facility] Comment on above: Order Comment: Speci men Type: ARTERIAL BLOOD SPECIMENOrdering Facility: [facility] Address: [address] [place] [address] Performed By: #### A LLBG ####[facility]ATORY[facility] [id number] [facility] RESPIRATORY [id number] [address] [address] Methemoglobin (Bld) [Mass fraction] % Normal 0.0-1.5 [facility] Comment on above: Order Comment: Speci men Type: ARTERIAL BLOOD SPECIMENOrdering Facility: [facility] Address: [address] [place] [id number] Performed By: #### A LLBG ####[place] [id number] [place] [address] RESPIRATORY [id number] [address] [address] O2 THERAPY RA=Room Air [facility] Comment on above: Order Comment: Speci men Type: ARTERIAL BLOOD SPECIMENOrdering Facility: [facility] Address: [address] [place] [address] Performed By: #### A LLBG ####[place] [id number] [place] [address] RESPIRATORY [id number] [address] [address] Oxygen (Bld) [Partial pressure] 75 mm Hg Low 85-95 [facility] Comment on above: Order Comment: Speci men Type: ARTERIAL BLOOD SPECIMENOrdering Facility: [facility] Address: [address] [place] [address] Performed By: #### A LLBG ####[id number] [place] [address] RESPIRATORY [id number] [address] [address] Oxygen adjusted to patient's actual temperature (Bld) [Partial pressure] [facility] Comment on above: Order Comment: Speci men Type: ARTERIAL BLOOD SPECIMENOrdering Facility: [facility] Address: [address] [place] [address] Performed By: #### A LLBG ####[facility] RESPIRATORYIA [id number] [facility]OSP[facility] RESPIRATORY [id number] [address] [address] Oxyhemoglobin (BldA) [Mass fraction] 95 % Normal 95-98 [facility] Comment on above: Order Comment: Speci men Type: ARTERIAL BLOOD SPECIMENOrdering Facility: [facility] Address: [address] [place] [address] Performed By: #### A LLBG ####[facility]LL RESPIRATORYIA [id number] [facility]OSP[facility] RESPIRATORY [id number] [address] [address] pH (Bld) 7.44 [pH] Normal 7.35-7.45 [facility] Comment on above: Order Comment: Speci men Type: ARTERIAL BLOOD SPECIMENOrdering Facility: [facility] Address: [address] [place] [address] Performed By: #### A LLBG ####[facility] [id number] [facility] RESPIRATORY [id number] [address] [address] pH adjusted to patient's actual temperature (Bld) Normal [facility] Comment on above: Order Comment: Speci men Type: ARTERIAL BLOOD SPECIMENOrdering Facility: [facility] Address: [address] [place] [address] Performed By: #### A LLBG ####[facility] [id number] [facility] RESPIRATORY [id number] [address] [address] PO2 / FIO2 RATIO 357 mmHg Normal >300 [facility] Comment on above: Order Comment: Speci men Type: ARTERIAL BLOOD SPECIMENOrdering Facility: [facility] Address: [address] [place] [address] Performed By: #### A LLBG ####[facility] [id number] [facility]OS[facility] RESPIRATORY [id number] [address] [address] Potassium [Moles/Vol] 3.2 mmol/L Low 3.5-5.0 [facility] Comment on above: Order Comment: Speci men Type: ARTERIAL BLOOD SPECIMENOrdering Facility: [facility] Address: [address] [place] [address] Performed By: #### A LLBG ####[facility] RESPIRATORYCLIA [id number] [facility] RESPIRATORY [id number] [place] [address] CBC W Auto Differential pane l (Bld)on 10-15-2024 Basophils (Bld) [#/Vol] 0.04 10*3/uL Normal <0.11 [facility] Comment on above: Order Comment: Speci men Type: BLOOD SPECIMENOrdering Facility: [facility] Address: [address] [place] [address] Performed By: #### 5 7021-8 ####PAM [facility] LABORATORYCLIA [id number] [place] [address] [place] Basophils/100 WBC (Bld) 0.5 % Normal [facility] Comment on above: Order Comment: Speci men Type: BLOOD SPECIMENOrdering Facility: [facility] Address: [address] [place] [address] Performed By: #### 5 7021-8 ####PAM [facility] LABORATORYCLIA [id number] [place] [address] [place] Differential cell count method Nom (Bld) Auto Normal [facility] Comment on above: Order Comment: Speci men Type: BLOOD SPECIMENOrdering Facility: [facility] Address: [address] [place] [address] Performed By: #### 5 7021-8 ####PAM [facility] LABORATORYCLIA [id number] [place] [address] [place] Eosinophils (Bld) [#/Vol] 0.13 10*3/uL Normal <0.46 [facility] Comment on above: Order Comment: Speci men Type: BLOOD SPECIMENOrdering Facility: [facility] Address: [address] [place] [address] Performed By: #### 5 7021-8 ####PAM [facility] LABORATORYCLIA [id number] [address] [place] Eosinophils/100 WBC (Bld) 1.7 % Normal [facility] Comment on above: Order Comment: Speci men Type: BLOOD SPECIMENOrdering Facility: [facility] Address: [address] [place] [address] Performed By: #### 5 7021-8 ####JILLESTRELLA [facility] LABORATORYCLIA [id number] [address] [place] Erythrocyte distribution width (RBC) [Ratio] 13.3 % Normal 11.5-15.0 [facility] Comment on above: Order Comment: Speci men Type: BLOOD SPECIMENOrdering Facility: [facility] Address: [address] [place] [address] Performed By: #### 5 7021-8 ####PAM [facility] LABORATORYCLIA [id number] [address] [place] Hematocrit (Bld) [Volume fraction] 38.2 % Low 39.0-51.0 [facility] Comment on above: Order Comment: Speci men Type: BLOOD SPECIMENOrdering Facility: [facility] Address: [address] [place] [address] Performed By: #### 5 7021-8 ####JILLESTRELLA [facility] LABORATORYCLIA [id number] [address] Hemoglobin (Bld) [Mass/Vol] 12.8 g/dL Low 13.0-17.0 [facility] Comment on above: Order Comment: Speci men Type: BLOOD SPECIMENOrdering Facility: [facility] Address: [address] [place] [address] Performed By: #### 5 7021-8 ####PAM [facility] LABORATORYIA [id number] [place] [address] [place] [facility] Immature granulocytes (Bld) [#/Vol] 10*3/uL Normal <0.10 [facility] Comment on above: Order Comment: Speci men Type: BLOOD SPECIMENOrdering Facility: [facility] Address: [address] [place] [address] Performed By: #### 5 7021-8 ####PAM [facility] LABORATORYCLIA [id number] [address] Immature granulocytes/100 WBC (Bld) 0.1 % Normal [facility] Comment on above: Order Comment: Speci men Type: BLOOD SPECIMENOrdering Facility: [facility] Address: [address] [place] [address] Performed By: #### 5 7021-8 ####JILLESTRELLA [facility] LABORATORYCLIA [id number] [place] [address] [place] Lymphocytes (Bld) [#/Vol] 1.72 10*3/uL Normal 1.00-4.00 [facility] Comment on above: Order Comment: Speci men Type: BLOOD SPECIMENOrdering Facility: [facility] Address: [address] [place] [address] Performed By: #### 5 7021-8 ####JILLJERSON [facility] LABORATORYIA [id number] [address] Lymphocytes/100 WBC (Bld) 23.0 % Normal [facility] Comment on above: Order Comment: Speci men Type: BLOOD SPECIMENOrdering Facility: [facility] Address: [address] [place] [address] Performed By: #### 5 7021-8 ####JILLESTRELLA [facility] LABORATORYCLIA [id number] [place] [address] [place] MCH (RBC) [Entitic mass] 29.8 pg Normal 26.0-34.0 [facility] Comment on above: Order Comment: Speci men Type: BLOOD SPECIMENOrdering Facility: [facility] Address: [address] [place] [address] Performed By: #### 5 7021-8 ####JILLESTRELLA [facility] LABORATORYCLIA [id number] [address] STATES [facility] MCHC (RBC) [Mass/Vol] 33.5 g/dL Normal 30.5-36.[address] [facility] Comment on above: Order Comment: Speci men Type: BLOOD SPECIMENOrdering Facility: [facility] Address: [address] [place] [address] Performed By: #### 5 7021-8 ####JILLESTRELLA [facility] LABORATORYCLIA [id number] [place] [address] [place] MCV (RBC) [Entitic vol] 88.8 fL Normal 80.0-100.0 [facility] Comment on above: Order Comment: Speci men Type: BLOOD SPECIMENOrdering Facility: [facility] Address: [address] [place] [address] Performed By: #### 5 7021-8 ####JILLESTRELLA [facility] LABORATORYCLIA [id number] [place] [address] [place] Monocytes (Bld) [#/Vol] 0.89 10*3/uL High <0.87 [facility] Comment on above: Order Comment: Speci men Type: BLOOD SPECIMENOrdering Facility: [facility] Address: [address] [place] [address] Performed By: #### 5 7021-8 ####JILLESTRELLA [facility] LABORATORYCLIA [id number] [address] [place] Monocytes/100 WBC (Bld) 11.9 % Normal [facility] Comment on above: Order Comment: Speci men Type: BLOOD SPECIMENOrdering Facility: [facility] Address: [address] [place] [address] Performed By: #### 5 7021-8 ####JILLESTRELLA [facility] LABORATORYCLIA [id number] [place] [address] [place] Neutrophils (Bld) [#/Vol] 4.69 10*3/uL Normal 1.45-7.50 [facility] Comment on above: Order Comment: Speci men Type: BLOOD SPECIMENOrdering Facility: [facility] Address: [address] [place] [address] Performed By: #### 5 7021-8 ####PAM [facility] LABORATORYCLIA [id number] [place] [address] [place] Neutrophils/100 WBC (Bld) 62.8 % Normal [facility] Comment on above: Order Comment: Speci men Type: BLOOD SPECIMENOrdering Facility: [facility] Address: [address] [place] [address] Performed By: #### 5 7021-8 ####PAM [facility] LABORATORYCLIA [id number] [place] [address] [place] Nucleated RBC (Bld) [#/Vol] 10*3/uL Normal <0.01 [facility] Comment on above: Order Comment: Speci men Type: BLOOD SPECIMENOrdering Facility: [facility] Address: [address] [place] [address] Performed By: #### 5 7021-8 ####[facility]ITALIA [id number] [address] Nucleated RBC/100 WBC (Bld) [Ratio] 0.0 /100 WBC Normal [facility] Comment on above: Order Comment: Speci men Type: BLOOD SPECIMENOrdering Facility: [facility] Address: [address] [place] [address] Performed By: #### 5 7021-8 ####PAM [facility] LABORATORYIA [id number] [place] [address] [place] [facility] [place] Platelet mean volume (Bld) [Entitic vol] 9.5 fL Normal 9.0-12.7 [facility] Comment on above: Order Comment: Speci men Type: BLOOD SPECIMENOrdering Facility: [facility] Address: [address] [place] [address] Performed By: #### 5 7021-8 ####PAM [facility] LABORATORYIA [id number] [place] [address] [place] Platelets (Bld) [#/Vol] 201 10*3/uL Normal 150-400 [facility] Comment on above: Order Comment: Speci men Type: BLOOD SPECIMENOrdering Facility: [facility] Address: [address] [place] [address] Performed By: #### 5 7021-8 ####JILLESTRELLA [facility] LABORATORYCLIA [id number] [place] [address] [facility] RBC (Bld) [#/Vol] 4.30 10*6/uL Normal 4.20-6.00 [facility] Comment on above: Order Comment: Speci men Type: BLOOD SPECIMENOrdering Facility: [facility] Address: [address] [place] [address] Performed By: #### 5 7021-8 ####[facility]ST[facility]LL[facility]ITALIA [id number] [address] WBC (Bld) [#/Vol] 7.48 10*3/uL Normal 3.70-11.00 [facility] Comment on above: Order Comment: Speci men Type: BLOOD SPECIMENOrdering Facility: [facility] Address: [address] [place] [address] Performed By: #### 5 7021-8 ####[facility]LESTRELLA [facility] HOSPITALIA [id number] [address] [place] BRAIN WO IVCONon 10-15-19 CT BRAIN WO IVCON Normal [facility] Comprehensive metabolic 2000 panelon 10-15-2024 Albumin [Mass/Vol] 3.5 g/dL Low 3.9-4.9 [facility] Comment on above: Order Comment: Speci men Type: BLOOD SPECIMENOrdering Facility: [facility] Address: [address] [place] [address] Performed By: #### 2 4323-8, 21733-7 ####[facility]STRELLA [facility] LABORATORYIA [id number] [address] [place] ALP [Catalytic activity/Vol] 104 U/L Normal 38-113 [facility] Comment on above: Order Comment: Speci men Type: BLOOD SPECIMENOrdering Facility: [facility] Address: [address] [place] [address] Performed By: #### 2 4323-8, ####PAM [facility] LABORATORYCLIA [id number] [place] [address] [place] ALT [Catalytic activity/Vol] 12 U/L Normal 10-54 [facility] Comment on above: Order Comment: Speci men Type: BLOOD SPECIMENOrdering Facility: [facility] Address: [address] [place] [address] Performed By: #### 2 4323-8, ####PAM [facility] LABORATORYCLIA [id number] [place] [address] [place] Anion gap [Moles/Vol] 10 mmol/L Normal 8-[address] [facility] Comment on above: Order Comment: Speci men Type: BLOOD SPECIMENOrdering Facility: [facility] Address: [address] [place] [address] Performed By: #### 2 432-8, ####PAM [facility] LABORATORYCLIA [id number] [address] [place] AST [Catalytic activity/Vol] 14 U/L Normal 14-40 [facility] Comment on above: Order Comment: Speci men Type: BLOOD SPECIMENOrdering Facility: [facility] Address: [address] [place] [address] Performed By: #### 2 4323-8, ####PAM [facility] LABORATORYCLIA [id number] [place] [address] [place] Bilirubin [Mass/Vol] 0.3 mg/dL Normal 0.2-1.3 [facility] Comment on above: Order Comment: Speci men Type: BLOOD SPECIMENOrdering Facility: [facility] Address: [address] [place] [address] Performed By: #### 2 4323-8, ####PAM [facility] LABORATORYCLIA [id number] [place] [address] [place] Calcium [Mass/Vol] 8.9 mg/dL Normal 8.5-10.2 [facility] Comment on above: Order Comment: Speci men Type: BLOOD SPECIMENOrdering Facility: [facility] Address: [address] [place] [address] Performed By: #### 2 4323-8, ####JILLESTRELLA [facility] LABORATORYCLIA [id number] [place] [address] [place] Chloride [Moles/Vol] 108 mmol/L High 98-107 [facility] Comment on above: Order Comment: Speci men Type: BLOOD SPECIMENOrdering Facility: [facility] Address: [address] [place] [address] Performed By: #### 2 4323-8, ####[facility]AM [facility] LABORATORYIA [id number] [place] [address] [place] CO2 [Moles/Vol] 25 mmol/L Normal 22-30 [facility] Comment on above: Order Comment: Speci men Type: BLOOD SPECIMENOrdering Facility: [facility] Address: [address] [place] [address] Performed By: #### 2 4323-8, ####[facility]IL[facility]STRELLA [facility] LABORATORYIA [id number] [place] [address] [place] Creatinine [Mass/Vol] 1.23 mg/dL High 0.73-1.[address] [facility] Comment on above: Order Comment: Speci men Type: BLOOD SPECIMENOrdering Facility: [facility] Address: [address] [place] [address] Performed By: #### 2 4323-8, ####JILLESTRELLA [facility] LABORATORYIA [id number] [place] [address] [place] Creatinine and Glomerular filtration rate.predicted panel (S/P/Bld) 59 mL/min/1.73m??? Low >=60 [facility] Comment on above: Order Comment: Raghu sandoval Type: BLOOD SPECIMENOrdering Facility: [facility] Address: [address] [place] [id number] Result Comment: Carlita mated Glomerular Filtration Rate [...] actual GFR. Performed By: #### 2 4323-8, 25835-2 ####PAM [facility] LABORATORYCLIA [id number] [place] [address] [place] Glucose [Mass/Vol] 107 mg/dL High 74-99 [facility] Comment on above: Order Comment: Raghu sandoval Type: BLOOD SPECIMENOrdering Facility: [facility] Address: [address] [place] [address] Result Comment: The [place] [employer] (ADA) provides guidance for cutoff [...] Standards of Medical Care in Diabetes 2016, [place] [employer]. Diabetes Care. 2016.39(Suppl 1). Performed By: #### 2 4323-8, 72448-8 ####PAM [facility] LABORATORYCLIA [id number] [place] [address] [place] Potassium [Moles/Vol] 3.7 mmol/L Normal 3.7-5.[address] [facility] Comment on above: Order Comment: Raghu sandoval Type: BLOOD SPECIMENOrdering Facility: [facility] Address: [address] [place] [id number] Performed By: #### 2 4323-8, ####PAM [facility] LABORATORYCLIA [id number] [place] [address] [place] Protein [Mass/Vol] 6.5 g/dL Normal 6.3-8.0 [facility] Comment on above: Order Comment: Speci men Type: BLOOD SPECIMENOrdering Facility: [facility] Address: [address] [place] [address] Performed By: #### 2 4323-8, ####JILLESTRELLA [facility] LABORATORYCLIA [id number] [place] [address] [place] Sodium [Moles/Vol] 143 mmol/L Normal 136-144 [facility] Comment on above: Order Comment: Speci men Type: BLOOD SPECIMENOrdering Facility: [facility] Address: [address] [place] [address] Performed By: #### 2 4323-8, ####JILLESTRELLA [facility] LABORATORYCLIA [id number] [place] [address] [place] Urea nitrogen [Mass/Vol] 18 mg/dL Normal 9-24 [facility] Comment on above: Order Comment: Speci men Type: BLOOD SPECIMENOrdering Facility: [facility] Address: [address] [place] [address] Performed By: #### 2 4323-8, 43589-4 ####PAM [facility] LABORATORYCLIA [id number] [place] [address] [place] ECG COMPLETEon 10-15-2024 ECG COMPLETE Normal [facility] ED NOTEon 10-15-2024 ED NOTE HNO ID: [id number] Author: BRINDA ADEN RN Service: Nursing Author Type: Registered Nurse Type: ED Notes Filed: 10/15/2024 15:34 Note Text: Report given to MMT, all questions answered, son to meet at [place]. Normal [facility] ED NOTE HNO ID: [id number] Author: BRINDA ADEN RN Service: Nursing Author Type: Registered Nurse Type: ED Notes Filed: 10/15/2024 14:30 Note Text: Report called to [place], all questions answered, patient and son updated on POC Normal [facility] ED NOTE Normal [facility] ED PROV NOTEon 10-15-2024 ED PROV NOTE Normal [facility] HISTORY PHYSICALon HISTORY PHYSICAL HNO ID: [id number] Author: NUBIA SALINAS MD Service: Hospital Medicine Author Type: Physician Type: H&P Filed: 10/16/2024 01:42 Note Text: DEPARTMENT OF HOSPITAL MEDICINE HISTORY AND PHYSICAL EXAM SERVICE DATE: 10/15/2024 SERVICE TIME: 5:16 PM Primary Care Physician: Adama Mendoza MD NIGHT AND WEEKEND COVERAGE: [employer] COVERAGE: Days: [phone], please page attending physician. Nights: [phone], please page [place] Hospitalist Night coverage pager [phone]. Subjective CHIEF COMPLAINT: AMS/hypersomnolence.LKN 8pm 10/14/24. 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 He is currently taking Aricept and [...] currently being (more content not included)... Normal [facility] Magn[facility] [Mass/Vol] 1.6 mg/dL Low 1.7-2.3 [facility] Comment on above: Order Comment: Speci men Type: BLOOD SPECIMENOrdering Facility: [facility] Address: [address] [place] [address] Performed By: #### 2 4323-8, 53402-1 ###BRONSON [facility] LABORATORYCLIA [id number] [address] STATES OF [facility] SEPSIS LACTATE W/ REFLEX (IN ITIAL)on 10-15-2024 Lactate [Moles/Vol] 1.1 mmol/L Normal <=2.0 [facility] Comment on above: Order Comment: Speci men Type: BLOOD SPECIMENOrdering Facility: [facility] Address: [address] [place] [address] Performed By: #### S LACTR ####JILLJERSON [facility] LABORATORYCLIA [id number] [address] [place] Urinalysis complete panel (U )on 10-15-2024 Bilirubin Ql (U) Negative Normal Negative [facility] Comment on above: Order Comment: Speci men Type: URINE SPECIMENOrdering Facility: [facility] Address: [address] [place] [address] Performed By: #### 2 4356-8 ####JILLESTRELLA [facility] LABORATORYCLIA [id number] [place] [address] [place] Clarity (Unsp spec) Clear Normal Clear [facility] Comment on above: Order Comment: Speci men Type: URINE SPECIMENOrdering Facility: [facility] Address: [address] [place] [address] Performed By: #### 2 4356-8 ####JILLESTRELLA [facility] LABORATORYIA [id number] [place] [address] [place] Color (U) Yellow Normal yellow [facility] Comment on above: Order Comment: Speci men Type: URINE SPECIMENOrdering Facility: [facility] Address: [address] [place] [address] Performed By: #### 2 4356-8 ####[facility]LESTRELLA [facility] LABORATORYIA [id number] [place] [address] [place] Glucose Test strip (U) [Mass/Vol] Negative Normal Trace, Negative [facility] Comment on above: Order Comment: Speci men Type: URINE SPECIMENOrdering Facility: [facility] Address: [address] [place] [address] Performed By: #### 2 4356-8 ####PAM [facility] LABORATORYIA [id number] [place] [address] [place] Hemoglobin Ql (U) Negative Normal Negative, Trace [facility] Comment on above: Order Comment: Speci men Type: URINE SPECIMENOrdering Facility: [facility] Address: [address] [place] [address] Performed By: #### 2 4356-8 ####PAM [facility] LABORATORYCLIA [id number] [place] [address] [place] Ketones Ql (U) Negative Normal Negative, Trace [facility] Comment on above: Order Comment: Speci men Type: URINE SPECIMENOrdering Facility: [facility] Address: [address] [place] [address] Performed By: #### 2 4356-8 ####JILLESTRELLA [facility] LABORATORYCLIA [id number] [address] Leukocyte esterase Test strip Ql (U) Negative Normal Negative, 25 Dieter/uL [facility] Comment on above: Order Comment: Speci men Type: URINE SPECIMENOrdering Facility: [facility] Address: [address] [place] [address] Performed By: #### 2 4356-8 ####JILLESTRELLA [facility] LABORATORYIA [id number] [address] STATES [facility] Nitrite Ql (U) Negative Normal Negative [facility] Comment on above: Order Comment: Speci men Type: URINE SPECIMENOrdering Facility: [facility] Address: [address] [place] [address] Performed By: #### 2 4356-8 ####JILLESTRELLA [facility] LABORATORYIA [id number] [place] [address] [place] [facility] pH (U) 5.5 [pH] Normal 5.0-8.0 [facility] Comment on above: Order Comment: Speci men Type: URINE SPECIMENOrdering Facility: [facility] Address: [address] [place] [address] Performed By: #### 2 4356-8 ####[facility]AM [facility] LABORATORYIA [id number] [address] STATES [facility] Protein (U) [Mass/Vol] 1+ Abnormal Trace , Negative [facility] Comment on above: Order Comment: Speci men Type: URINE SPECIMENOrdering Facility: [facility] Address: [address] [place] [address] Performed By: #### 2 4356-8 ####JILLESTRELLA [facility] LABORATORYIA [id number] [place] [address] [place] RBC LM.HPF (Urine sed) [#/Area] 0-3 /HPF Normal 0-3 /HPF [facility] Comment on above: Order Comment: Speci men Type: URINE SPECIMENOrdering Facility: [facility] Address: [address] [place] [address] Performed By: #### 2 4356-8 ####JILLESTRELLA [facility] LABORATORYCLIA [id number] [place] [address] [place] Specific gravity (U) [Rel density] 1.028 Normal 1.005-1.03 0 [facility] Comment on above: Order Comment: Speci men Type: URINE SPECIMENOrdering Facility: [facility] Address: [address] [place] [address] Performed By: #### 2 4356-8 ####[facility]AM [facility] LABORATORYCLIA [id number] [address] Urobilinogen Ql (U) Normal Normal Normal [facility] Comment on above: Order Comment: Speci men Type: URINE SPECIMENOrdering Facility: [facility] Address: [address] [place] [address] Performed By: #### 2 4356-8 ####[facility]AM [facility] LABORATORYIA [id number] [address] WBC LM.HPF (Urine sed) [#/Area] 0-5 /HPF Normal 0-5 /HPF [facility] Comment on above: Order Comment: Speci men Type: URINE SPECIMENOrdering Facility: [facility] Address: [address] [place] [address] Performed By: #### 2 4356-8 ####[facility] LABORATORYIA [id number] [address] [place] XR CHEST [...] Bilateral basilar atelectasis. Possible trace pleural effusions. 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 Transcribe Date/Time: Oct 16 2024 8:54A Dictated by : TANIA MCDONALD MD This examination was interpreted and the report reviewed and electronically signed by: TANIA MCDONALD MD on Oct 16 2024 8:56AM EST [id number] [facility] CNNURSEon 10-14-2024 CNNURSE Normal [facility] CNOVon 10-14-2024 CNOV Normal [facility] CNOV Normal [facility] ECG COMPLETEon 10-14-2024 ECG COMPLETE Normal [facility] CNOVon 10-11-2024 CNOV Normal [facility] CNPNon 09-22-2024 CNPN Normal [facility] 12 Lead EKGon 09-21-2024 12 Lead EKG [facility] Cardiovascular Services [address] [place] [address] 12 Lead EKG 09/21/24 0121 MR#: [id number] Acct: [id number] Name: NARA JOHNSON Rep #: [id number] [...] ECG Confirmed by PEARL LANTIGUA, CAYDEN ([id number]), restaurant expeditor SALINAS RAM ([id number]) on 09/22/2024 10:57:00 AM Referred By: Confirmed By: CAYDEN MORTON MD 09/22/24 1057 Date Cayden Morton MD CC: Dr. Adama Mendoza MD; Dr. Fish Burnette DO Signed Normal [facility] Brain/Head without Contrasto n 09-21-2024 Brain/Head without Contrast [facility] Imaging Services [address] [place] [address] Brain/Head without Contrast MR#: [id number] Acct: [id number] Name: NARA JOHNSON Rep #: [id number] : 1945 M 79 From: Porfirio mayberry MD PCP: Dr. Adama Mendoza MD Status: REG ER Study: Brain/Head without Contrast Date of Exam: 09/04 05/28 Exam# [id number] Ordering Dr: Fish Burnette DO :[id number] EXAM: CT HEAD WITHOUT INTRAVENOUS CONTRAST CLINICAL [...] Adama Mendoza MD; Dr. 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, [address] Absolute Neut 6.6 X10 3/uL Normal 2.0-7.7 [facility] Comment on above: Performed By: #### L 500.4050, L100.0100 #### [facility] [address] [place], [address] Basophils/100 WBC (Bld) 0.3 % Normal 0-1 [facility] Comment on above: Performed By: #### L 500.4050, L100.0100 #### [facility] [address] [place], [address] Eosinophils/100 WBC (Bld) 1.9 % Normal 0-5 [facility] Comment on above: Performed By: #### L 500.4050, L100.0100 #### [facility] [address] [place], [address] Erythrocyte distribution width (RBC) [Ratio] 13.7 % Normal 11.6-14.6 [facility] Comment on above: Performed By: #### L 500.4050, L100.0100 #### [facility] [address] [place], [address] Hematocrit (Bld) [Volume fraction] 40.0 % Normal 40-54 [facility] Comment on above: Performed By: #### L 500.4050, L100.0100 #### [facility] [address] [place], [address] Hemoglobin (Bld) [Mass/Vol] 13.4 g/dL Normal 13.0-16.5 [facility] Comment on above: Performed By: #### L 500.4050, L100.0100 #### [facility] [address] [place], [address] IG% 0.400 Normal 0.0-0.9 [facility] Comment on above: Result Comment: IG% - Immature Granulocytes (promyelocytes, myelocytes and metamyelocytes) > 1% indicates that a LEFT SHIFT is Present. Performed By: #### L 500.4050, L100.0100 #### [facility] [address] [place], [address] Lymphocytes/100 WBC (Bld) 16.0 % Low 19-41 [facility] Comment on above: Performed By: #### L 500.4050, L100.0100 #### [facility] [address] [place], [address] MCH (RBC) [Entitic mass] 30.0 pg Normal 27.0-32.0 [facility] Comment on above: Performed By: #### L 500.4050, L100.0100 #### [facility] [address] [place], [address] MCHC (RBC) [Mass/Vol] 33.5 g/dL Normal 32-36 [facility] Comment on above: Performed By: #### L 500.4050, L100.0100 #### [facility] [address] [place], [address] MCV (RBC) [Entitic vol] 89.5 fL Normal 80-94 [facility] Comment on above: Performed By: #### L 500.4050, L100.0100 #### [facility] [address] [place], [address] Monocytes/100 WBC (Bld) 11.6 % High 0-10 [facility] Comment on above: Performed By: #### L 500.4050, L100.0100 #### [facility] [address] [place], [address] Neutrophils/100 WBC (Bld) 69.8 % Normal 47-70 [facility] Comment on above: Performed By: #### L 500.4050, L100.0100 #### [facility] [address] [place], [address] Nucleated RBC (Bld) [#/Vol] 0 10*3/uL Normal 0-5 [facility] Comment on above: Performed By: #### L 500.4050, L100.0100 #### [facility] [address] [place], [address] Platelet mean volume (Bld) [Entitic vol] 9.9 fL Normal 6.2-12.0 [facility] Comment on above: Performed By: #### L 500.4050, L100.0100 #### [facility] [address] [place], [address] Platelets (Bld) [#/Vol] 194 10*3/uL Normal 150-450 [facility] Comment on above: Performed By: #### L 500.4050, L100.0100 #### [facility] [address] [place], [address] RBC (Bld) [#/Vol] 4.47 10*6/uL Low 4.6-6.2 [facility] Comment on above: Performed By: #### L 500.4050, L100.0100 #### [facility] [address] [place], [address] RDW SD 44.7 fl High 35.1-43.9 [facility] Comment on above: Performed By: #### L 500.4050, L100.0100 #### [facility] [address] [place], [address] WBC (Bld) [#/Vol] 9.5 10*3/uL Normal 4.4-11.0 [facility] Comment on above: Performed By: #### L 500.4050, L100.0100 #### [facility] [address] [place], [address] CNPNon 09-21-2024 CNPN Normal [facility] Chest PA and Lateralon 09-21 Chest PA and Lateral [facility] [address] [place] [address] Chest PA and Lateral MR#: [id number] Acct: [id number] Name: NARA JOHNSON Rep #: [id number] : 1945 M 79 From: Porfirio mayberry MD PCP: Dr. Adama Mendoza MD Status: [facility] ER Study: Chest PA and Lateral Date of Exam: 09/21/24 Exam# [id number] Ordering Dr: Fish Burnette DO :[id number] EXAM: XR CHEST, 2 VIEWS CLINICAL INDICATION: [...] Adama Mendoza MD; Dr. 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 09-21-2024 Albumin [Mass/Vol] 3.0 g/dL Low 3.2-5.0 [facility] Comment on above: Performed By: #### L 500.4050, L100.0100 #### [facility] [address] [place], [address] Albumin/Globulin [Mass ratio] 0.8 {ratio} Low 0.9-2.4 [facility] Comment on above: Performed By: #### L 500.4050, L100.0100 #### [facility] [address] [place], [address] ALK P 84 U/L Normal 45-117 [facility] Comment on above: Performed By: #### L 500.4050, L100.0100 #### [facility] [address] [place], [address] ALT [Catalytic activity/Vol] 20 U/L Normal 16-61 [facility] Comment on above: Performed By: #### L 500.4050, L100.0100 #### [facility] [address] [place], [address] AST [Catalytic activity/Vol] 14 U/L Low 15-37 [facility] Comment on above: Performed By: #### L 500.4050, L100.0100 #### [facility] [address] [place], [address] Bilirubin [Mass/Vol] 0.40 mg/dL Normal 0.20-1.00 [facility] Comment on above: Result Comment: For patients on eltrombopag therapy, use of Dimension [place] TBIL is not recommended. Performed By: #### L 500.4050, L100.0100 #### [facility] [address] [place], [address] BUN/CRE 17.9 RATIO Normal 10-20 [facility] Comment on above: Performed By: #### L 500.4050, L100.0100 #### [facility] [address] [place], [address] CA,Total 8.9 mg/dL Normal 8.5-10.1 [facility] Comment on above: Performed By: #### L 500.4050, L100.0100 #### [facility] [address] [place], [address] Chloride [Moles/Vol] 112 mmol/L High 98-107 [facility] Comment on above: Performed By: #### L 500.4050, L100.0100 #### [facility] [address] [place], [address] CO2 [Moles/Vol] 26.0 mmol/L Normal 21.0-32.0 [facility] Comment on above: Performed By: #### L 500.4050, L100.0100 #### [facility] [address] [place], [address] Creatinine [Mass/Vol] 1.23 mg/dL Normal 0.70-1.30 [facility] Comment on above: Result Comment: The validity of the calculated GFR GFRAA in patients over 70 years has not been determined. Clinical correlation is essential. Performed By: #### L 500.4050, L100.0100 #### [facility] [address] [place], [address] ECRCL 51.70 ml/min Normal [facility] Comment on above: Performed By: #### L 500.4050, L100.0100 #### [facility] [address] [place], [address] EST GFR - AA 73 mL/min Normal >60 [facility] Comment on above: Result Comment: Afri can Bangl[place] GFR Calc Performed By: #### L 500.4050, L100.0100 #### [facility] [address] [place], [address] GAP 4 Low 5-15 [facility] Comment on above: Performed By: #### L 500.4050, L100.0100 #### [facility] [address] [place], [address] GFR/1.73 sq M.predicted among non-blacks MDRD (S/P/Bld) [Vol rate/Area] 60 mL/min/{1.73_m2} Normal >60 [facility] Comment on above: Result Comment: Non- GFR Calc Performed By: #### L 500.4050, L100.0100 #### [facility] [address] [place], [address] Globulin (S) [Mass/Vol] 3.8 g/dL Normal 2.2-4.2 [facility] Comment on above: Performed By: #### L 500.4050, L100.0100 #### [facility] [address] [place], [address] Glucose [Mass/Vol] 118 mg/dL High 74-106 [facility] Comment on above: Result Comment: Fast ing Glucose result from 100 to 125 mg/dL suggests IMPAIRED HOMEOSTASIS per A.D.A. criteria. Performed By: #### L 500.4050, L100.0100 #### [facility] [address] [place], [address] Potassium [Moles/Vol] 3.7 mmol/L Normal 3.5-5.1 [facility] Comment on above: Performed By: #### L 500.4050, L100.0100 #### [facility] [address] [place], [address] Sodium [Moles/Vol] 142 mmol/L Normal 136-145 [facility] Comment on above: Performed By: #### L 500.4050, L100.0100 #### [facility] [address] [place], [address] T PROT 6.8 g/dL Normal 6.4-8.2 [facility] Comment on above: Performed By: #### L 500.4050, L100.0100 #### [facility] [address] [place], [address] Urea nitrogen [Mass/Vol] 22 mg/dL High 7-18 [facility] Comment on above: Performed By: #### L 500.4050, L100.0100 #### [facility] [address] [place], [address] Emergency Department Summary on 09-21-2024 Emergency Department Summary [facility] Medical Records Department [address] [place] [address] Emergency Department Summary 09/21/24 MR#: [id number] Acct: [id number] Name: NARA JOHNSON Rep #: [id number] [...] Currently no family is here for discussion. [facility] Medical History Dementia Abnormal nuclear stress test Obesity Old inferior wall myocardial infarction OAB (overactive bladder) Obstructive sleep apnea Rosacea Actinic keratoses Anemia Abdominal aortic aneurysm (AAA) Atherosclerotic heart disease of [place] coronary artery without angina pectoris Ischemic cerebrovascular [...] PT UNSURE Verified 09/21/24 00:57 OF REACTION Wpnlwwj-WEB-DmN Reductase Allergy Other Verified 09/21/24 00:57 Inhibitor (Unclmqr-Fbd-Ajl Reductase Inhibitor) ezetimibe (From Zetia) AdvReac PT [...] Pressure Carla (more content not included)... Normal [facility] M100.678on 09-21-2024 M100.678 Pending SARS-CoV-2 (COVID 19) Negative INFLUENZA A Negative INFLUENZA B Negative RSV PCR Negative Normal [facility] Comment on above: Performed By: #### M 100.678 #### [facility] [address] [place], [address] Urinalysis, Completeon 09-21 EPI,SQUAMOUS 0-5 SEEN Normal 0-5 [facility] Comment on above: Order Comment: CLEAN CATCH Performed By: #### L 400.0001 #### [facility] [address] [place], [address] BILIRUBIN URINE Negative Normal Negative [facility] Comment on above: Order Comment: CLEAN CATCH Performed By: #### L 400.0001 #### [facility] [address] [place], [address] Clarity (U) Clear Normal Clear [facility] Comment on above: Order Comment: CLEAN CATCH Performed By: #### L 400.0001 #### [facility] [address] [place], [address] Color (U) Yellow Normal Yellow [facility] Comment on above: Order Comment: CLEAN CATCH Performed By: #### L 400.0001 #### [facility] [address] [place], [address] GLUCOSE, UR Normal Normal Normal [facility] Comment on above: Order Comment: CLEAN CATCH Performed By: #### L 400.0001 #### [facility] [address] [place], [address] KETONE UR Negative Normal Negative [facility] Comment on above: Order Comment: CLEAN CATCH Performed By: #### L 400.0001 #### [facility] [address] [place], [address] LEUK ESTERASE Negative Normal Negative [facility] Comment on above: Order Comment: CLEAN CATCH Performed By: #### L 400.0001 #### [facility] [address] [place], [address] Nitrite Ql (U) Negative Normal Negative [facility] Comment on above: Order Comment: CLEAN CATCH Performed By: #### L 400.0001 #### [facility] [address] [place], [address] OCCULT BLOOD-UR Negative Normal Negative [facility] Comment on above: Order Comment: CLEAN CATCH Performed By: #### L 400.0001 #### [facility] [address] [place], [address] pH UR 6.5 Normal 5.0 - 8.0 [facility] Comment on above: Order Comment: CLEAN CATCH Performed By: #### L 400.0001 #### [facility] [address] [place], [address] PROT DIPSTX 15 mg/dl Abnormal Negative [facility] Comment on above: Order Comment: CLEAN CATCH Performed By: #### L 400.0001 #### [facility] [address] [place], [address] SP.GR. DIPSTX 1.010 Normal 1.002-1.03 0 [facility] Comment on above: Order Comment: CLEAN CATCH Performed By: #### L 400.0001 #### [facility] [address] [place], [address] UROBILI Normal Normal Normal [facility] Comment on above: Order Comment: CLEAN CATCH Performed By: #### L 400.0001 #### [facility] [address] [place], [address] BACTERIA 0 SEEN Normal None Seen [facility] Comment on above: Order Comment: CLEAN CATCH Performed By: #### L 400.0001 #### [facility] [address] [place], [address] Mucus Ql (Urine sed) 0 SEEN Normal [facility] Comment on above: Order Comment: CLEAN CATCH Performed By: #### L 400.0001 #### [facility] [address] [place], [address] RBC 0 SEEN Normal 0-5 [facility] Comment on above: Order Comment: CLEAN CATCH Performed By: #### L 400.0001 #### [facility] [address] [place], [address] WBC 0 SEEN Normal 0-5 [facility] Comment on above: Order Comment: CLEAN CATCH Performed By: #### L 400.0001 #### [facility] [address] [place], [address] B. burgdorferi IgG and IgM p candelario (S)on 09-20-2024 B. burgdorferi IgG+IgM Qn (S) Negative Normal Negative [facility] Comment on above: Order Comment: Speci men Type: BLOOD SPECIMENOrdering Facility: [facility] Address: [address] [place] [address] Result Comment: Rece nt infection with B. burgdorferi sensu lato cannot be excluded if the specimen collected within four weeks after the onset of signs and symptoms or within six weeks after a known tick exposure. Clinical and epidemiological correlation is required. Performed By: #### 3 4942-3 ####[facility] LABCLIA [id number] [facility] [id number] [address] [place] CNOVon 09-20-2024 CNOV Normal [facility] CNPNon 09-19-2024 CNPN Normal [facility] CNPNon 09-13-2024 CNPN Normal [facility] CNOVon 09-10-2024 CNOV Normal [facility] XR HIP 3V PELV+ AP/LAT LTon 09-10-2024 XR HIP 3V PELV+ AP/LAT LT Normal [facility] CNPNon 09-06-2024 CNPN Normal [facility] CNOVon 08-22-2024 CNOV Normal [facility] SURGICAL PATHOLOGYon 024 CASE REPORT Normal [facility] Comment on above: Order Comment: Speci men Type: TISSUE SPECIMENOrdering Facility: [facility] Address: [address] [place] [address] Result Comment: Surg ical Pathology Report Case: [id number] Provider: Rubén Gonzalez MD Collected: 08/22/2024 01:31 PMOrdering Location: General Surgery Received: 08/22/2024 04:43 PMPathologist: Maira Aparicio MDSpecimen: Soft Tissue, Mass, Biopsy, right mid back mass Performed By: #### S ####[facility] LABCLIA [id number] [place] [address] [place] CLINICAL HISTORY Normal [facility] Comment on above: Order Comment: Speci men Type: TISSUE SPECIMENOrdering Facility: [facility] Address: [address] [place] [address] Result Comment: mass of subcutaneous tissue of backComment: right side Performed By: #### S ####[facility] LABCLIA [id number] [place] [address] [place] FINAL DIAGNOSIS Normal [facility] Comment on above: Order Comment: Speci men Type: TISSUE SPECIMENOrdering Facility: [facility] Address: [address] [place] [address] Result Comment: Soft tissue, back, core biopsy:- Spindle cell lipoma. Performed By: #### S ####[facility] LABCLIA [id number] [place] [address] [place] FINAL PERFORMING LAB Normal [facility] Comment on above: Order Comment: Speci men Type: TISSUE SPECIMENOrdering Facility: [facility] Address: [address] [place] [address] Result Comment: Diag nostic interpretation performed at [facility], [address] [place] [address] CLIA# [id number] Director: Jose Rafael Harris M.D. Performed By: #### S ####[facility] LABCLIA [id number] [place] [address] [place] GROSS DESCRIPTION Normal [facility] Comment on above: Order Comment: Speci men Type: TISSUE SPECIMENOrdering Facility: [facility] Address: [address] [place] [address] Result Comment: A. S oft Tissue, Mass, BiopsyReceived in formalin are two segments of cylindrical tissue aggregating to 2.2 x 0.3 x 0.1 cm, kenyon-white and of a soft consistency. Totally submitted in one cassette.[facility] August 22, 2024 10:19 PMGross examination performed at [facility], [address] [place] [address] Performed By: #### S ####[facility] LABCLIA [id number] [place] [address] [place] US GUIDED SOFT TISSUE MASS B IOPSY (POC) SURG USE ONLYon 08-22-2024 [facility] CNNURSEon 08-16-2024 CNNURSE Normal [facility] CNOVon 08-08-2024 CNOV Normal [facility] CNCOon 08-01-2024 CNCO Letter Text Normal [facility] CNPNon 08-01-2024 CNPN Normal [facility] US CHEST WALL/SOFT TISSUEon 07-27-2024 US CHEST WALL/SOFT TISSUE Invalid Interpretation Code [facility] CBC W Auto Differential pane l (Bld)on 09-11-2024 Basophils (Bld) [#/Vol] 0.05 10*3/uL [facility] Basophils/100 WBC (Bld) 0.5 % [facility] Differential cell count method Nom (Bld) Auto [facility] Eosinophils (Bld) [#/Vol] 0.19 10*3/uL [facility] Eosinophils/100 WBC (Bld) 1.8 % [facility] Erythrocyte distribution width (RBC) [Ratio] 13.6 % 11.5 - 15.0 % [facility] Hematocrit (Bld) [Volume fraction] 41.3 % 39.0 - 51.0 % [facility] Hemoglobin (Bld) [Mass/Vol] 13.3 g/dL 13.0 - 17.0 g/dL [facility] Immature granulocytes (Bld) [#/Vol] 0.07 10*3/uL [facility] Immature granulocytes/100 WBC (Bld) 0.7 % [facility] Interpretation and review of laboratory results Abnormal [facility] Lymphocytes (Bld) [#/Vol] 1.81 10*3/uL [facility] Lymphocytes/100 WBC (Bld) 17.3 % [facility] MCH (RBC) [Entitic mass] 30.0 pg 26.0 - 34.0 pg [facility] MCHC (RBC) [Mass/Vol] 32.2 g/dL 30.5 - 36.0 g/dL [facility] MCV (RBC) [Entitic vol] 93.0 fL 80.0 - 100.0 fL [facility] Monocytes (Bld) [#/Vol] 1.07 10*3/uL High [facility] Monocytes/100 WBC (Bld) 10.2 % [facility] Neutrophils (Bld) [#/Vol] 7.25 10*3/uL [facility] Neutrophils/100 WBC (Bld) 69.5 % [facility] Nucleated RBC (Bld) [#/Vol] [facility] Nucleated RBC/100 WBC (Bld) [Ratio] 0.0 % /100 WBC [facility] Platelet mean volume (Bld) [Entitic vol] 10.8 fL 9.0 - 12.7 fL [facility] Platelets (Bld) [#/Vol] 273 10*3/uL [facility] RBC (Bld) [#/Vol] 4.44 10*6/uL 4.20 - 6.00 m/uL [facility] WBC (Bld) [#/Vol] 10.44 10*3/uL [facility] XR Foot - left AP and Latera l and obliqueon 03-11-2024 IMPRESSION: No acute osseous abnormality. Degenerative changes as described. 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: TITUS Transcribe Date/Time: Mar 11 2024 8:55A Dictated by : MONICA WISE DO This examination was interpreted and the report reviewed and electronically signed by: MONICA WISE DO on Mar 11 2024 8:58AM [facility] DIVISION OF RADIOLOGY * * *Final [...] proximal plantar fascia. DIVISION OF RADIOLOGY Provider, [facility] - 03/11/2024 * * *Final [...] acute osseous abnormality. Degenerative changes as described. 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: TITUS Transcribe Date/Time: Mar 11 2024 8:55A Dictated by : MONICA WISE DO This examination was interpreted and the report reviewed and electronically signed by: MONICA WISE DO on Mar 11 2024 8:58AM EST [facility] XR Foot - left AP and Latera l and obliqueOrdered By: Ccf Provider on 03-11-2024 [facility] XR Foot - left AP and Latera l and obliqueon 03-04-2024 Radiology Study observation (narrative) [facility] CNOVon 01-06-2024 CNOV Office Visit (EEGMDR ) LORY JOHNSON ([id number]) 1945 M NFR Date Time Provider Department 01/06/24 10:15 AM EEG NEUR [facility] EEGMDR During your visit today, we recorded the following information about you: Referring Provider: SHAYE KITCHEN JR [[id number]] Allergies As of Date: 01/06/2024 Noted Allergy [...] mental status type [R41.82] Order(s):EPI EEG ROUTINE [[id number]] Order #: [id number]. #:[id number]: [id number] Prescriptions as of 01/08/2024 - pantoprazole [...] 12/14/2019 Anemia [D64.9] Living will on file [[id number]] 03/26/2022 Advance directive discussed with patient [Z71.8*03/26/2022 Anterior dislocation of right shoulder [S43.014*10/31/2022 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 [*10/31/2022 Calcification of pleura on chest x-ray [J94.8] 10/23/2023 Emphysema lung (HCC) [J43.9] 10/23/2023 Encounter Status:Closed by SHAYE KITCHEN on 01/08/24 [facility] EPIL EEG ROUTINEon [facility] MRA BRAIN WO IVCONon 024 MRA BRAIN WO IVCON * * *Final Report* * * DATE OF EXAM: Dec 23 2023 7:59AM [facility] 0272 - MRA BRAIN WO IVCON [...] routine protocol without contrast.Intracranial and extracranial 3D plql-sc-hgdumt MRA with 2D multiplanar and 3D maximum [...] The basilar artery is patent. Bilateral proximal new vehicle sales consultant are patent. Bilateral SCA and PICA are [...] occlusion of the intracranial or extracranial arteries. 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 Transcribe Date/Time: Dec 23 2023 8:12A Dictated by : LINUS HERNANDEZ DO This examination was interpreted and the report reviewed and electronically signed by: LINUS HERNANDEZ DO on Dec 23 2023 8:19AM EST [id number] [facility] MRA CAROTID WO IVCONon 12-22 MRA CAROTID WO IVCON * * *Final Report* * * DATE OF EXAM: Dec 23 2023 7:59AM [facility] 0275 - MRA CAROTID WO IVCON [...] routine protocol without contrast.Intracranial and extracranial 3D rord-ed-iaxjef MRA with 2D multiplanar and 3D maximum [...] The basilar artery is patent. Bilateral proximal new vehicle sales consultant are patent. Bilateral SCA and PICA are [...] occlusion of the intracranial or extracranial arteries. 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: TITUS Transcribe Date/Time: Dec 23 2023 8:12A Dictated by : LINUS HERNANDEZ DO This examination was interpreted and the report reviewed and electronically signed by: LINUS HERNANDEZ DO on Dec 23 2023 8:19AM EST [id number] Normal [facility] MRI BRAIN WO IVCONon 024 MRI BRAIN WO IVCON * * *Final Report* * * DATE OF EXAM: Dec 23 2023 7:59AM [facility] 0294 - MRI BRAIN WO IVCON [...] routine protocol without contrast.Intracranial and extracranial 3D tegr-ve-zhrsdu MRA with 2D multiplanar and 3D maximum [...] The basilar artery is patent. Bilateral proximal new vehicle sales consultant are patent. Bilateral SCA and PICA are [...] occlusion of the intracranial or extracranial arteries. 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: TITUS Transcribe Date/Time: Dec 23 2023 8:12A Dictated by : LINUS HERNANDEZ DO This examination was interpreted and the report reviewed and electronically signed by: LINUS HERNANDEZ DO on Dec 23 2023 8:19AM EST [id number] [facility] No Panel Informationon 12-22 [facility] No Panel Informationon 12-14 [facility] SPIROMETRY WITH DILATOR IF O BSTRUCTEDon 12-15-2023 DLCO (ml/min/mmHg) 14.59 ml/min/mmHg [facility] DLCO/VA (ml/min/mmHg/L) 3.69 ml/min/mmHg/L [facility] ERV BOX (L) 0.86 L [facility] OXT36-36% POST (L/S) 0.94 L/S [facility] DRI01-45% PRE (L/S) 0.57 L/S [facility] FEV1 PRE (L) 1.51 L [facility] FEV1/FVC POST (%) 60 % [facility] FEV1/FVC PRE (%) 56 % [facility] d [facility] FEV1_POST (L) 1.72 L [facility] FRC Box (L) 2.44 L [facility] FVC POST (L) 2.86 L [facility] FVC PRE (L) 2.66 L [facility] IC BOX (L) 1.40 L [facility] PEF POST (L/S) 5.56 L/S [facility] PEF PRE (L/S) 5.19 L/S [facility] RV Box (L) 2.06 L [facility] RV/TLC Box (%) 51 % [facility] TLC Box (L) 4.04 L [facility] VA (L) 3.98 L [facility] [facility] VC (L) [address] [facility] [place] Absolute lymphocyte countOrd ered By: Abelardo Lowe on 09-26-2023 Lymphocytes Auto (Unsp spec) [#/Vol] 2.10 10*3/uL 0.83-4.51 [facility] Basophil percentageOrdered B y: Abelardo Lowe on 09-26-2023 Basophil percentage 0 SEEN /hpf 0-5 [facility] Basophils/100 WBC (Bld) 0.6 % 0-1 [facility] Bilirubin [Mass/Vol] 0.50 mg/dL 0.20-1.00 [facility] Comment on above: For patients on eltr ombopag therapy, use of Dimension [place] TBIL is not recommended. Chloride [Moles/Vol] 110 mmol/L 98-107 [facility] Eosinophils/100 WBC (Bld) 4.0 % 0-5 [facility] Glucose [Mass/Vol] 95 mg/dL 74-106 [facility] Neutrophils (Bld) [#/Vol] 4.7 10*3/uL 2.0-7.7 [facility] Neutrophils/100 WBC (Bld) 58.8 % 47-70 [facility] Potassium [Moles/Vol] 4.2 mmol/L 3.5-5.1 [facility] Protein [Mass/Vol] 7.6 g/dL 6.4-8.2 [facility] Sodium [Moles/Vol] 141 mmol/L 136-145 [facility] WBC (Bld) [#/Vol] 8.1 10*3/uL 4.4-11.0 [facility] Bilirubin Test strip Ql (U)O rdered By: Abelardo Lowe on 09-26-2023 Bilirubin Ql (U) Negative Negative [facility] Blood erythrocytes count (nu mber/volume)Ordered By: Abelardo Lowe on 09-26-2023 RBC (Bld) [#/Vol] 4.91 10*6/uL 4.6-6.2 [facility] Blood hemoglobin measurement (mass/volume)Ordered By: Abelardo Lowe on 09-26-2023 Hemoglobin (Bld) [Mass/Vol] 14.4 g/dL 13.0-16.5 [facility] Blood lymphocytes/100 leukoc ytesOrdered By: Abelardo Lowe on 09-26-2023 Lymphocytes/100 WBC (Bld) 26.0 % 19-41 [facility] Blood monocytes/100 leukocyt esOrdered By: Abelardo Lowe on 09-26-2023 Monocytes/100 WBC (Bld) 10.4 % 0-10 [facility] Blood platelet mean volumeOr dered By: Abelardo Lowe on 09-26-2023 Platelet mean volume (Bld) [Entitic vol] 10.2 fL 6.2-12.0 [facility] Determination of erythrocyte mean corpuscular volume (MCV)Ordered By: Abelardo Lowe on 09-26-2023 MCV (RBC) [Entitic vol] 89.4 fL 80-94 [facility] Hematocrit Auto (Bld) [Volum e fraction]Ordered By: Abelardo Lowe on 09-26-2023 Hematocrit (Bld) [Volume fraction] 43.9 % 40-54 [facility] Influenza virus A and B and SARS-CoV-2 (COVID-19) Ag panel - Upper respiratory specimOrdered By: Abelardo Lowe on 09-26-2023 SARS-CoV-2 (COVID-19) RNA KARON+probe Ql (Resp) [facility] Ketones Test strip Ql (U)Ord ered By: Abelardo Lowe on 09-26-2023 Ketones Ql (U) Negative Negative [facility] Laboratory - Chemistry and C hemistry - challengeOrdered By: Abelardo Lowe on 09-26-2023 ALP [Catalytic activity/Vol] 88 U/L 45-117 [facility] ALT [Catalytic activity/Vol] 33 U/L 16-61 [facility] CO2 [Moles/Vol] 30.0 mmol/L 21.0-32.0 [facility] Globulin (S) [Mass/Vol] 4.2 g/dL 2.2-4.2 [facility] Urea nitrogen/Creatinine [Mass ratio] 11.3 mg/mg 10-20 [facility] Laboratory - Hematology and Cell countsOrdered By: Abelardo Lowe on 09-26-2023 Erythrocyte distribution width (RBC) [Entitic vol] 44.2 fL 35.1-43.9 [facility] Erythrocyte distribution width (RBC) [Ratio] 13.6 % 11.6-14.6 [facility] Immature granulocytes/100 WBC (Bld) 0.200 % 0.0-0.9 [facility] Comment on above: IG% - Immature Granu locytes (promyelocytes, myelocytes and metamyelocytes) > 1% indicates that a LEFT SHIFT is Present. MCH (RBC) [Entitic mass] 29.3 pg 27.0-32.0 [facility] Nucleated RBC/100 WBC (Bld) [Ratio] 0 % 0-5 [facility] MCHC Auto (RBC) [Mass/Vol]Or dered By: Abelardo Lowe on 09-26-2023 MCHC (RBC) [Mass/Vol] 32.8 g/dL 32-36 [facility] Mucus LM Ql (Urine sed)Order ed By: Abelardo Lowe on 09-26-2023 Mucus Ql (Urine sed) 0 SEEN /hpf [facility] Nitrite Test strip Ql (U)Ord ered By: Abelardo Lowe on 09-26-2023 Nitrite Ql (U) Negative Negative [facility] No Panel InformationOrdered By: Abelardo Lowe on 09-26-2023 Estimated Creatinine Clearance Calc 45.97 ml/min [facility] Estimated GFR (MDRD) Amer 72 mL/min >60 [facility] Comment on above: GFR Calc Estimated GFR (MDRD) Non-Af Amer 60 mL/min >60 [facility] Comment on above: Non- GFR Calc Platelets bldOrdered By: Mahesh Lowe on 09-26-2023 Platelets (Bld) [#/Vol] 197 10*3/uL 150-450 [facility] Protein Test strip Ql (U)Ord ered By: Abelardo Lowe on 09-26-2023 Protein Ql (U) Negative Negative [facility] Serum or plasma albumin ludwin urement (mass/volume)Ordered By: Abelardo Lowe on 09-26-2023 Albumin [Mass/Vol] 3.4 g/dL 3.2-5.0 [facility] Serum or plasma albumin/glob ulin mass ratioOrdered By: Abelardo Lowe on 09-26-2023 Albumin/Globulin [Mass ratio] 0.8 {ratio} 0.9-2.4 [facility] Serum or plasma calcium ludwin urement (mass/volume)Ordered By: Abelardo Lowe on 09-26-2023 Calcium [Mass/Vol] 9.5 mg/dL 8.5-10.1 [facility] Serum or plasma creatinine m easurement (mass/volume)Ordered By: Abelardo Lowe on 09-26-2023 Creatinine [Mass/Vol] 1.24 mg/dL 0.70-1.30 [facility] Comment on above: The validity of the calculated GFR & GFRAA in patients over 70 years has not been determined. Clinical correlation is essential. Serum or plasma urea nitroge n measurement (mass/volume)Ordered By: Abelardo Lowe on 09-26-2023 Urea nitrogen [Mass/Vol] 14 mg/dL 7-18 [facility] Squamous epithelial cells de tection in urine sediment by light microscopyOrdered By: Abelardo Lowe on 09-26-2023 Epithelial cells.squamous LM Ql (Urine sed) 0 SEEN /hpf 0-5 [facility] Thin prep Papanicolaou smear with manual screeningOrdered By: Abelardo Lowe on 09-26-2023 Thin prep Papanicolaou smear with manual screening 22 U/L 15-37 [facility] Thin prep Papanicolaou smear with manual screening 1 5-15 [facility] Urine blood detectionOrdered By: Abelardo Lowe on 09-26-2023 RBC Ql (U) Negative Negative [facility] RBC Ql (U) 0 SEEN /hpf 0-5 [facility] Urine clarityOrdered By: Mahesh Lowe on 09-26-2023 Clarity (U) Clear Clear [facility] Urine color determinationOrd ered By: Abelardo Lowe on 09-26-2023 Color (U) Yellow Yellow [facility] Urine glucose detectionOrder ed By: Abelardo Lowe on 09-26-2023 Glucose Ql (U) Normal mg/dl Normal [facility] Urine leukocyte esterase det ection by dipstickOrdered By: Abelardo Lowe on 09-26-2023 Leukocyte esterase Test strip Ql (U) Negative Negative [facility] Urine pHOrdered By: Abelardo doan on 09-26-2023 pH (U) 7.0 [pH] 5.0 - 8.0 [facility] Urine sediment bacteria coun t by microscopy (number/high power field)Ordered By: Abelardo Lowe on 09-26-2023 Bacteria LM.HPF (Urine sed) [#/Area] 0 /[HPF] None Seen [facility] Urine specific gravity measu rementOrdered By: Abelardo Lowe on 09-26-2023 Specific gravity (U) [Rel density] 1.005 1.002-1.03 0 [facility] Urobilinogen Auto test strip Ql (U)Ordered By: Abelardo Lowe on 09-26-2023 Urobilinogen Ql (U) Normal mg/dl Normal [facility] CBC W Auto Differential pane l (Bld)on 06-23-2023 Basophils (Bld) [#/Vol] <0.11 k/uL [facility] [place] Basophils/100 WBC (Bld) 0.3 % [facility] [place] Differential cell count method Nom (Bld) Auto [facility] [place] Eosinophils (Bld) [#/Vol] 0.03 10*3/uL <0.46 k/uL [facility] [place] Eosinophils/100 WBC (Bld) 0.4 % [facility] [place] Erythrocyte distribution width (RBC) [Ratio] 12.7 % 11.5 - 15.0 % [facility] [place] Hematocrit (Bld) [Volume fraction] 40.4 % 39.0 - 51.0 % [facility] [place] Hemoglobin (Bld) [Mass/Vol] 13.2 g/dL 13.0 - 17.0 g/dL [facility] [place] Immature granulocytes (Bld) [#/Vol] <0.10 k/uL [facility] [place] Immature granulocytes/100 WBC (Bld) 0.3 % [facility] [place] Lymphocytes (Bld) [#/Vol] 1.34 10*3/uL 1.00 - 4.00 k/uL [facility] [place] Lymphocytes/100 WBC (Bld) 18.1 % [facility] [place] MCH (RBC) [Entitic mass] 29.6 pg 26.0 - 34.0 pg [facility] [place] MCHC (RBC) [Mass/Vol] 32.7 g/dL 30.5 - 36.0 g/dL [facility] [place] MCV (RBC) [Entitic vol] 90.6 fL 80.0 - 100.0 fL [facility] [place] Monocytes (Bld) [#/Vol] 1.02 10*3/uL High <0.87 k/uL [facility] [place] Monocytes/100 WBC (Bld) 13.8 % [facility] [place] Neutrophils (Bld) [#/Vol] 4.97 10*3/uL 1.45 - 7.50 k/uL [facility] [place] Neutrophils/100 WBC (Bld) 67.1 % [facility] [place] Nucleated RBC (Bld) [#/Vol] <0.01 k/uL [facility] [place] Nucleated RBC/100 WBC (Bld) [Ratio] 0.0 /100 WBC [facility] [place] Platelet mean volume (Bld) [Entitic vol] 10.9 fL 9.0 - 12.7 fL [facility] [place] Platelets (Bld) [#/Vol] 179 10*3/uL 150 - 400 k/uL [facility] [place] RBC (Bld) [#/Vol] 4.46 10*6/uL 4.20 - 6.00 m/uL [facility] [place] WBC (Bld) [#/Vol] 7.40 10*3/uL 3.70 - 11.00 k/uL [facility] [place] Urinalysis complete panel (U )on 06-23-2023 Bilirubin Ql (U) Negative Negative [facility] Clarity (Unsp spec) Clear Clear [facility] Color (U) Yellow Yellow [facility] [place] Glucose Test strip (U) [Mass/Vol] Negative Trace, Negative [facility] [place] Hemoglobin Ql (U) Negative Negative, Trace [facility] [place] Ketones Ql (U) Negative Trace, Negative [facility] [place] Leukocyte esterase Test strip Ql (U) Negative Negative, 25 Dieter/uL [facility] [place] Nitrite Ql (U) 2+ Abnormal Negative [facility] [place] pH (U) 5.5 [pH] 5.0 - 8.0 [facility] [place] Protein (U) [Mass/Vol] 1+ Abnormal Trace , Negative [facility] [place] RBC LM.HPF (Urine sed) [#/Area] 0-3 /HPF 0-3 /HPF [facility] [place] Specific gravity (U) [Rel density] 1.027 1.005 - 1.030 [facility] [place] Urobilinogen Ql (U) Negative Negative [facility] WBC LM.HPF (Urine sed) [#/Area] 0-5 /HPF 0-5 /HPF [facility] [place] XR CHEST 2V FRONTAL/LATon [facility] [place] XR Chest PA and Lateralon IMPRESSION: Multiple calcified pleural plaques bilaterally, 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 No definite consolidations. 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: TITUS Transcribe Date/Time: Jun 23 2023 11:15A Dictated by : ERIS CHAN MD This examination was interpreted and the report reviewed and electronically signed by: ERIS CHAN MD on Jun 23 2023 11:18AM [facility] DIVISION OF RADIOLOGY * * *Final [...] shows degenerative changes. DIVISION OF RADIOLOGY Provider, [facility] - 06/23/2023 * * *Final [...] to remote asbestos exposure. No definite consolidations. 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: TITUS Transcribe Date/Time: Jun 23 2023 11:15A Dictated by : ERIS CHAN MD This examination was interpreted and the report reviewed and electronically signed by: ERIS CHAN MD on Jun 23 2023 11:18AM EST [facility] [place] Radiology Study observation (narrative) [facility] [place] XR Chest PA and LateralOrder ed By: [facility] Provider on 06-23-2023 [facility] [place] Absolute lymphocyte countOrd ered By: Harshil Nela on 06-17-2023 Lymphocytes Auto (Unsp spec) [#/Vol] 0.75 10*3/uL 0.83-4.51 [facility] Basophil percentageOrdered B y: Harshil Rondon on 06-17-2023 Basophil percentage 0 SEEN /hpf 0-5 [facility] Basophils/100 WBC (Bld) 0.4 % 0-1 [facility] Bilirubin [Mass/Vol] 0.50 mg/dL 0.20-1.00 [facility] Comment on above: For patients on eltr ombopag therapy, use of Dimension [place] TBIL is not recommended. Chloride [Moles/Vol] 108 mmol/L 98-107 [facility] Eosinophils/100 WBC (Bld) 0.4 % 0-5 [facility] Glucose [Mass/Vol] 125 mg/dL 74-106 [facility] Comment on above: Fasting Glucose resu lt from 100 to 125 mg/dL suggests IMPAIRED HOMEOSTASIS per A.D.A. criteria. Neutrophils (Bld) [#/Vol] 8.4 10*3/uL 2.0-7.7 [facility] Neutrophils/100 WBC (Bld) 81.6 % 47-70 [facility] Potassium [Moles/Vol] 3.6 mmol/L 3.5-5.1 [facility] Protein [Mass/Vol] 7.7 g/dL 6.4-8.2 [facility] Sodium [Moles/Vol] 139 mmol/L 136-145 [facility] WBC (Bld) [#/Vol] 10.3 10*3/uL 4.4-11.0 [facility] Lactate [Moles/Vol] 1.6 mmol/L 0.4-2.0 [facility] Bilirubin Test strip Ql (U)O rdered By: Harshil Rondon on 09-13-2023 Bilirubin Ql (U) Negative Negative [facility] Blood erythrocytes count (nu mber/volume)Ordered By: Harshil Rondon on 06-17-2023 RBC (Bld) [#/Vol] 4.79 10*6/uL 4.6-6.2 [facility] Blood hemoglobin measurement (mass/volume)Ordered By: Harshil Rondon on 06-17-2023 Hemoglobin (Bld) [Mass/Vol] 14.0 g/dL 13.0-16.5 [facility] Blood lymphocytes/100 leukoc ytesOrdered By: Harshil Rondon on 06-17-2023 Lymphocytes/100 WBC (Bld) 7.3 % 19-41 [facility] Blood monocytes/100 leukocyt esOrdered By: Harshil Rondon on 06-17-2023 Monocytes/100 WBC (Bld) 9.9 % 0-10 [facility] Blood platelet mean volumeOr dered By: Harshil Rondon on 06-17-2023 Platelet mean volume (Bld) [Entitic vol] 10.5 fL 6.2-12.0 [facility] Culture, urineOrdered By: Huan Rondon on 06-17-2023 Bacteria identified Cx Nom (U) Culture exhibits no growth. [facility] Determination of erythrocyte mean corpuscular volume (MCV)Ordered By: Harshil Rondon on 06-17-2023 MCV (RBC) [Entitic vol] 89.4 fL 80-94 [facility] Hematocrit Auto (Bld) [Volum e fraction]Ordered By: Harshil Rondon on 06-17-2023 Hematocrit (Bld) [Volume fraction] 42.8 % 40-54 [facility] INR in Blood by Coagulation assayOrdered By: Harshil Rondon on 06-17-2023 INR Coag (Bld) [Relative time] 1.1 {INR} [facility] Influenza virus A and B and SARS-CoV-2 (COVID-19) Ag panel - Upper respiratory specimOrdered By: Harshil Rondon on 06-17-2023 SARS-CoV-2 & FLU Antigen (Rapid) SARS-CoV-2 (COVID 19) [facility] SARS-CoV-2 & FLU Antigen (Rapid) SARS-CoV-2 (COVID 19) [facility] Ketones Test strip Ql (U)Ord ered By: Harshil Rondon on 06-17-2023 Ketones Ql (U) Negative Negative [facility] Laboratory - Chemistry and C hemistry - challengeOrdered By: Harshil Rondon on 06-17-2023 ALP [Catalytic activity/Vol] 85 U/L 45-117 [facility] ALT [Catalytic activity/Vol] 31 U/L 16-61 [facility] CO2 [Moles/Vol] 25.0 mmol/L 21.0-32.0 [facility] Globulin (S) [Mass/Vol] 4.3 g/dL 2.2-4.2 [facility] Urea nitrogen/Creatinine [Mass ratio] 11.0 mg/mg 10-20 [facility] Laboratory - CoagulationOrde red By: Harshil Rondon on 06-17-2023 aPTT Coag (Bld) [Time] 27.2 s 24.1-36.[address] [facility] PT Coag (PPP) [Time] 13.8 s 11.7-14.9 [facility] Laboratory - Hematology and Cell countsOrdered By: Harshil Rondon on 06-17-2023 Erythrocyte distribution width (RBC) [Entitic vol] 42.5 fL 35.1-43.9 [facility] Erythrocyte distribution width (RBC) [Ratio] 13.1 % 11.6-14.6 [facility] Immature granulocytes/100 WBC (Bld) 0.400 % 0.0-0.9 [facility] Comment on above: IG% - Immature Granu locytes (promyelocytes, myelocytes and metamyelocytes) > 1% indicates that a LEFT SHIFT is Present. MCH (RBC) [Entitic mass] 29.2 pg 27.0-32.0 [facility] Nucleated RBC/100 WBC (Bld) [Ratio] 0 % 0-5 [facility] Laboratory - Microbiology an d Antimicrobial susceptibilityOrdered By: Harshil Rondon on 06-17-2023 Bacteria identified Cx Nom (Bld) No growth in 5 days. [facility] MCHC Auto (RBC) [Mass/Vol]Or dered By: Harshil Rondon on 06-17-2023 MCHC (RBC) [Mass/Vol] 32.7 g/dL 32-36 [facility] Mucus LM Ql (Urine sed)Order ed By: Harshil Rondon on 06-17-2023 Mucus Ql (Urine sed) 0 SEEN /hpf [facility] Nitrite Test strip Ql (U)Ord ered By: Harshil Rondon on 06-17-2023 Nitrite Ql (U) Negative Negative [facility] No Panel InformationOrdered By: Harshil Rondon on 06-17-2023 Estimated GFR (MDRD) Amer 65 mL/min >60 [facility] Comment on above: GFR Calc Estimated GFR (MDRD) Non-Af Amer 54 mL/min >60 [facility] Comment on above: Non- GFR Calc Platelets bldOrdered By: Adela Rondon on 06-17-2023 Platelets (Bld) [#/Vol] 218 10*3/uL 150-450 [facility] Protein Test strip Ql (U)Ord ered By: Harshil Rondon on 06-17-2023 Protein Ql (U) 100 mg/dl Negative [facility] Serum or plasma albumin ludwin urement (mass/volume)Ordered By: Harshil Rondon on 06-17-2023 Albumin [Mass/Vol] 3.4 g/dL 3.2-5.0 [facility] Serum or plasma albumin/glob ulin mass ratioOrdered By: Harshil Rondon on 06-17-2023 Albumin/Globulin [Mass ratio] 0.8 {ratio} 0.9-2.4 [facility] Serum or plasma calcium ludwin urement (mass/volume)Ordered By: Harshil Rondon on 06-17-2023 Calcium [Mass/Vol] 9.2 mg/dL 8.5-10.1 [facility] Serum or plasma creatinine m easurement (mass/volume)Ordered By: Harshil Rondon on 06-17-2023 Creatinine [Mass/Vol] 1.36 mg/dL 0.70-1.30 [facility] Comment on above: The validity of the calculated GFR & GFRAA in patients over 70 years has not been determined. Clinical correlation is essential. Serum or plasma urea nitroge n measurement (mass/volume)Ordered By: Harshil Rondon on 06-17-2023 Urea nitrogen [Mass/Vol] 15 mg/dL 7-18 [facility] Squamous epithelial cells de tection in urine sediment by light microscopyOrdered By: Harshil Rondon on 06-17-2023 Epithelial cells.squamous LM Ql (Urine sed) 0 SEEN /hpf 0-5 [facility] Thin prep Papanicolaou smear with manual screeningOrdered By: Harshil Rondon on 06-17-2023 Thin prep Papanicolaou smear with manual screening 17 U/L 15-37 [facility] Thin prep Papanicolaou smear with manual screening 6 5-15 [facility] Urine blood detectionOrdered By: Harshil Rondon on 06-17-2023 RBC Ql (U) Negative Negative [facility] RBC Ql (U) 0 SEEN /hpf 0-5 [facility] Urine clarityOrdered By: Adela Rondon on 06-17-2023 Clarity (U) Clear Clear [facility] Urine color determinationOrd ered By: Harshil Rondon on 06-17-2023 Color (U) Yellow Yellow [facility] Urine glucose detectionOrder ed By: Harshil Rondon on 06-17-2023 Glucose Ql (U) Normal mg/dl Normal [facility] Urine leukocyte esterase det ection by dipstickOrdered By: Harshil Rondon on 06-17-2023 Leukocyte esterase Test strip Ql (U) Negative Negative [facility] Urine pHOrdered By: Harshil blanc on 06-17-2023 pH (U) 6.5 [pH] 5.0 - 8.0 [facility] Urine sediment bacteria coun t by microscopy (number/high power field)Ordered By: Harshil Rondon on 06-17-2023 Bacteria LM.HPF (Urine sed) [#/Area] 0 /[HPF] None Seen [facility] Urine specific gravity measu rementOrdered By: Harshil Rondon on 06-17-2023 Specific gravity (U) [Rel density] 1.010 1.002-1.03 0 [facility] Urobilinogen Auto test strip Ql (U)Ordered By: Harshil Rondon on 06-17-2023 Urobilinogen Ql (U) Normal mg/dl Normal [facility] CBC W Auto Differential pane l (Bld)on 04-30-2023 Basophils (Bld) [#/Vol] 0.04 10*3/uL <0.11 k/uL [facility] Basophils/100 WBC (Bld) 0.5 % [facility] [place] Differential cell count method Nom (Bld) Auto [facility] [place] Eosinophils (Bld) [#/Vol] 0.28 10*3/uL <0.46 k/uL [facility] [place] Eosinophils/100 WBC (Bld) 3.3 % [facility] [place] Erythrocyte distribution width (RBC) [Ratio] 12.9 % 11.5 - 15.0 % [facility] [place] Hematocrit (Bld) [Volume fraction] 43.9 % 39.0 - 51.0 % [facility] [place] Hemoglobin (Bld) [Mass/Vol] 14.7 g/dL 13.0 - 17.0 g/dL [facility] [place] Immature granulocytes (Bld) [#/Vol] <0.10 k/uL [facility] [place] Immature granulocytes/100 WBC (Bld) 0.2 % [facility] [place] Lymphocytes (Bld) [#/Vol] 2.08 10*3/uL 1.00 - 4.00 k/uL [facility] [place] Lymphocytes/100 WBC (Bld) 24.5 % [facility] [place] MCH (RBC) [Entitic mass] 29.8 pg 26.0 - 34.0 pg [facility] [place] MCHC (RBC) [Mass/Vol] 33.5 g/dL 30.5 - 36.0 g/dL [facility] [place] MCV (RBC) [Entitic vol] 88.9 fL 80.0 - 100.0 fL [facility] [place] Monocytes (Bld) [#/Vol] 0.96 10*3/uL High <0.87 k/uL [facility] [place] Monocytes/100 WBC (Bld) 11.3 % [facility] Neutrophils (Bld) [#/Vol] 5.11 10*3/uL 1.45 - 7.50 k/uL [facility] Neutrophils/100 WBC (Bld) 60.2 % [facility] [place] Nucleated RBC (Bld) [#/Vol] <0.01 k/uL [facility] [place] Nucleated RBC/100 WBC (Bld) [Ratio] 0.0 /100 WBC [facility] Platelet mean volume (Bld) [Entitic vol] 10.4 fL 9.0 - 12.7 fL [facility] Platelets (Bld) [#/Vol] 240 10*3/uL 150 - 400 k/uL [facility] RBC (Bld) [#/Vol] 4.94 10*6/uL 4.20 - 6.00 m/uL [facility] WBC (Bld) [#/Vol] 8.49 10*3/uL 3.70 - 11.00 k/uL [facility] LIPID PANEL, NONFASTINGon Cholesterol [Mass/Vol] 165 mg/dL <200 mg/dL [facility] HDL Cholesterol, Nonfasting 37 mg/dL Low >39 mg/dL [facility] LDL Cholesterol, Nonfasting 103 mg/dL High <100 mg/dL [facility] LDL/HDL Ratio, Nonfasting 2.78 mg/dL High <2.54 mg/dL [facility] Non HDL Cholesterol, Nonfasting 128 mg/dL <130 mg/dL [facility] Total Chol/HDL Ratio, Nonfasting 4.46 mg/dL <5.10 mg/dL [facility] Triglycerides, Nonfasting 123 mg/dL <150 mg/dL [facility] VLDL Cholesterol, Nonfasting 25 mg/dL <30 mg/dL [facility] HbA1c (Bld)on 10-09-2022 Average glucose Estimated from glycated hemoglobin (Bld) [Mass/Vol] 108 mg/dL [facility] HbA1c (Bld) [Mass fraction] 5.4 % 4.3 - 5.6 % [facility] Absolute lymphocyte counton 07-24-2022 Lymphocytes Auto (Unsp spec) [#/Vol] 2.07 10*3/uL 0.83-4.51 [facility] Work Phone: Basophil percentageon 2021 Basophil percentage 0-5 SEEN /hpf 0-[address] [facility] Work Phone: Basophils/100 WBC (Bld) 0.3 % 0-1 [facility] Work Phone: Chloride [Moles/Vol] 108 mmol/L 98-107 [facility]: Eosinophils/100 WBC (Bld) 1.9 % 0-5 [facility] Work Phone: Glucose [Mass/Vol] 143 mg/dL 74-106 [facility] Work Phone: [phone] Comment on above: Fasting Glucose resu lt greater than or equal to 126 mg/dL suggests DIABETES MELLITUS per A.D.A. criteria. Neutrophils (Bld) [#/Vol] 8.2 10*3/uL 2.0-7.7 [facility] Work Phone: Neutrophils/100 WBC (Bld) 72.2 % 47-70 [facility] Work Phone: Potassium [Moles/Vol] 3.8 mmol/L 3.5-5.1 [facility] Work Phone: Sodium [Moles/Vol] 141 mmol/L 136-145 [facility] Work Phone: WBC (Bld) [#/Vol] 11.3 10*3/uL 4.4-11.0 [facility] Work Phone: [phone] Bilirubin Test strip Ql (U)o n 07-24-2022 Bilirubin Ql (U) Negative Negative [facility] Work Phone: Blood erythrocytes count (nu mber/volume)on 07-24-2022 RBC (Bld) [#/Vol] 4.88 10*6/uL 4.6-6.2 [facility] Work Phone: Blood hemoglobin measurement (mass/volume)on 07-24-2022 Hemoglobin (Bld) [Mass/Vol] 14.3 g/dL 13.0-16.5 [facility] Work Phone: Blood lymphocytes/100 leukoc yteson 07-24-2022 Lymphocytes/100 WBC (Bld) 18.3 % 19-41 [facility] Work Phone: Blood monocytes/100 leukocyt eson 07-24-2022 Monocytes/100 WBC (Bld) 6.9 % 0-10 [facility] Work Phone: Blood platelet mean volumeon 07-24-2022 Platelet mean volume (Bld) [Entitic vol] 9.8 fL 6.2-12.0 [facility] Work Phone: [phone] Determination of erythrocyte mean corpuscular volume (MCV)on 07-24-2022 MCV (RBC) [Entitic vol] 88.3 fL 80-94 [facility] Work Phone: [phone] Hematocrit Auto (Bld) [Volum e fraction]on 07-24-2022 Hematocrit (Bld) [Volume fraction] 43.1 % 40-54 [facility] Work Phone: Ketones Test strip Ql (U)on 07-24-2022 Ketones Ql (U) Negative Negative [facility] Work Phone: [phone] Laboratory - Chemistry and C hemistry - challengeon 07-24-2022 CO2 [Moles/Vol] 26.0 mmol/L 21.0-32.0 [facility] Work Phone: [phone] Urea nitrogen/Creatinine [Mass ratio] 11.4 mg/mg 07-24 [facility] Work Phone: [phone] Laboratory - Hematology and Cell countson 07-24-2022 Erythrocyte distribution width (RBC) [Entitic vol] 41.8 fL 35.1-43.9 [facility] Work Phone: [phone] Erythrocyte distribution width (RBC) [Ratio] 12.9 % 11.6-14.6 [facility] Work Phone: [phone] Immature granulocytes/100 WBC (Bld) 0.400 % 0.0-0.9 [facility] Work Phone: [phone] Comment on above: IG% - Immature Granu locytes (promyelocytes, myelocytes and metamyelocytes) > 1% indicates that a LEFT SHIFT is Present. MCH (RBC) [Entitic mass] 29.3 pg 27.0-32.0 [facility] Work Phone: [phone] Nucleated RBC/100 WBC (Bld) [Ratio] 0 % 0-5 [facility] Work Phone: [phone] MCHC Auto (RBC) [Mass/Vol]on 07-24-2022 MCHC (RBC) [Mass/Vol] 33.2 g/dL 32-36 [facility] Work [facility]: [phone] Mucus LM Ql (Urine sed)on Mucus Ql (Urine sed) 0 SEEN /hpf [facility] Work Phone: Nitrite Test strip Ql (U)on 07-24-2022 Nitrite Ql (U) Negative Negative [facility] Work Phone: No Panel Informationon 07-24 Estimated Creatinine Clearance Calc 47.11 ml/min [facility] Work Phone: Estimated GFR (MDRD) Amer 73 mL/min >60 [facility] Work Phone: Comment on above: GFR Calc Estimated GFR (MDRD) Non-Af Amer 60 mL/min >60 [facility] Work Phone: Comment on above: Non- GFR Calc Platelets bldon 07-24-2022 Platelets (Bld) [#/Vol] 196 10*3/uL 150-450 [facility] Work Phone: Protein Test strip Ql (U)on 07-24-2022 Protein Ql (U) 30 mg/dl Negative [facility] Work Phone: Serum or plasma calcium ludwin urement (mass/volume)on 07-24-2022 Calcium [Mass/Vol] 9.3 mg/dL 8.5-10.1 [facility] Work Phone: Serum or plasma creatinine m easurement (mass/volume)on 07-24-2022 Creatinine [Mass/Vol] 1.23 mg/dL 0.70-1.30 [facility] Work Phone: Comment on above: The validity of the calculated GFR & GFRAA in patients over 70 years has not been determined. Clinical correlation is essential. Serum or plasma urea nitroge n measurement (mass/volume)on 07-24-2022 Urea nitrogen [Mass/Vol] 14 mg/dL 7-18 [facility] Work Phone: Squamous epithelial cells de tection in urine sediment by light microscopyon 07-24-2022 Epithelial cells.squamous LM Ql (Urine sed) 0-5 SEEN /hpf 0-5 [facility] Work Phone: Thin prep Papanicolaou smear with manual screeningon 07-24-2022 Thin prep Papanicolaou smear with manual screening 7 5-15 [facility] Work Phone: [phone] Urine blood detectionon 07-06 RBC Ql (U) Negative Negative [facility] Work Phone: [phone] RBC Ql (U) 0 SEEN /hpf 0-5 [facility] Work Phone: [phone] Urine clarityon 07-24-2022 Clarity (U) Clear Clear [facility] Work Phone: [phone] Urine color determinationon 07-24-2022 Color (U) Yellow Yellow [facility] Work Phone: [phone] Urine glucose detectionon Glucose Ql (U) Normal mg/dl Normal [facility] Work Phone: [phone] Urine leukocyte esterase det ection by dipstickon 07-24-2022 Leukocyte esterase Test strip Ql (U) Negative Negative [facility] Work Phone: [phone] Urine pHon 07-24-2022 pH (U) 7.0 [pH] 5.0 - 8.0 [facility] Work Phone: [phone] Urine sediment bacteria coun t by microscopy (number/high power field)on 07-24-2022 Bacteria LM.HPF (Urine sed) [#/Area] RARE /hpf None Seen [facility] Work Phone: [phone] Urine specific gravity measu rementon 07-24-2022 Specific gravity (U) [Rel density] 1.010 1.002-1.03 0 [facility] Work Phone: [phone] Urobilinogen Auto test strip Ql (U)on 07-24-2022 Urobilinogen Ql (U) Normal mg/dl Normal [facility] Work Phone: CBC W Auto Differential pane l (Bld)on 03-27-2022 Abs Immature Gran <0.03 <0.10 k/uL [facility] Basophils (Bld) [#/Vol] 0.05 10*3/uL <0.11 k/uL [facility] Basophils/100 WBC (Bld) 0.7 % [facility] Differential cell count method Nom (Bld) Auto [facility] Eosinophils (Bld) [#/Vol] 0.25 10*3/uL <0.46 k/uL [facility] Eosinophils/100 WBC (Bld) 3.5 % [facility] Erythrocyte distribution width (RBC) [Ratio] 13.1 % 11.5 - 15.0 % [facility] Hematocrit (Bld) [Volume fraction] 43.4 % 39.0 - 51.0 % [facility] Hemoglobin (Bld) [Mass/Vol] 14.6 g/dL 13.0 - 17.0 g/dL [facility] Immature Gran % 0.3 % [facility] Lymphocytes (Bld) [#/Vol] 2.12 10*3/uL 1.00 - 4.00 k/uL [facility] Lymphocytes/100 WBC (Bld) 29.7 % [facility] MCH (RBC) [Entitic mass] 29.9 pg 26.0 - 34.0 pg [facility] MCHC (RBC) [Mass/Vol] 33.6 g/dL 30.5 - 36.0 g/dL [facility] MCV (RBC) [Entitic vol] 88.8 fL 80.0 - 100.0 fL [facility] Monocytes (Bld) [#/Vol] 0.97 10*3/uL High <0.87 k/uL [facility] Monocytes/100 WBC (Bld) 13.6 % [facility] Neutrophils (Bld) [#/Vol] 3.74 10*3/uL 1.45 - 7.50 k/uL [facility] Neutrophils/100 WBC (Bld) 52.2 % [facility] Nucleated RBC (Bld) [#/Vol] 10*3/uL <0.01 k/uL [facility] Nucleated RBC/100 WBC (Bld) [Ratio] 0.0 /100 WBC [facility] Platelet mean volume (Bld) [Entitic vol] 11.0 fL 9.0 - 12.7 fL [facility] Platelets (Bld) [#/Vol] 218 10*3/uL 150 - 400 k/uL [facility] RBC (Bld) [#/Vol] 4.89 10*6/uL 4.20 - 6.00 m/uL [facility] WBC (Bld) [#/Vol] 7.15 10*3/uL 3.70 - 11.00 k/uL [facility] Comprehensive metabolic 2000 panelon 03-27-2022 Albumin [Mass/Vol] 4.1 g/dL 3.9 - 4.9 g/dL [facility] ALP [Catalytic activity/Vol] 84 U/L 38 - 113 U/L [facility] ALT [Catalytic activity/Vol] 43 U/L 10 - 54 U/L [facility] Anion gap [Moles/Vol] 13 mmol/L 9 - 18 mmol/L [facility] AST [Catalytic activity/Vol] 31 U/L 14 - 40 U/L [facility] Bilirubin [Mass/Vol] 0.3 mg/dL 0.2 - 1 .3 mg/dL [facility] Calcium [Mass/Vol] 9.5 mg/dL 8.5 - 10. 2 mg/dL [facility] Chloride [Moles/Vol] 107 mmol/L High 97 - 10 5 mmol/L [facility] CO2 [Moles/Vol] 21 mmol/L Low 22 - 30 mmol/L [facility] Creatinine [Mass/Vol] 1.13 mg/dL 0.73 - 1.22 mg/dL [facility] Estimated Glomerular Filtration Rate 66 mL/min/1.73m >=60 mL/min/1.7 3m [facility] Glucose [Mass/Vol] 91 mg/dL 74 - 99 mg/dL [facility] Potassium [Moles/Vol] 4.1 mmol/L 3.7 - 5.1 mmol/L [facility] Protein [Mass/Vol] 7.2 g/dL 6.3 - 8.0 g/dL [facility] Sodium [Moles/Vol] 141 mmol/L 136 - 144 mmol/L [facility] Urea nitrogen [Mass/Vol] 12 mg/dL 9 - 24 mg/dL [facility] HbA1c (Bld)on 03-27-2022 Average glucose Estimated from glycated hemoglobin (Bld) [Mass/Vol] 117 mg/dL [facility] HbA1c (Bld) [Mass fraction] 5.7 % High 4.3 - 5.6 % [facility] LIPID PANEL, NONFASTINGon Cholesterol [Mass/Vol] 184 mg/dL <200 mg/dL [facility] HDL Cholesterol, Nonfasting 34 mg/dL Low >39 mg/dL [facility] LDL Cholesterol, Nonfasting 82 mg/dL <100 mg/dL [facility] LDL/HDL Ratio, Nonfasting 2.41 mg/dL <2.54 mg/dL [facility] Non HDL Cholesterol, Nonfasting 150 mg/dL High <130 mg/dL [facility] Total Chol/HDL Ratio, Nonfasting 5.41 mg/dL High <5.10 mg/dL [facility] Triglycerides, Nonfasting 342 mg/dL High <150 mg/dL [facility] VLDL Cholesterol, Nonfasting 68 mg/dL High <30 mg/dL [facility] MAGNESIUM [facility] 03-27-2022 Magnesium [Mass/Vol] 2.0 mg/dL 1.7 - 2 .3 mg/dL [facility] PSA/PROSTSPECAG DIAGon 03-27 Prostate specific Ag [Mass/Vol] 0.22 ng/mL <2.60 ng/mL [facility] TSH [facility] 03-27-2022 TSH Qn 3.260 m[IU]/L 0.270 - 4.200 mIU/L [facility] Urinalysis complete panel (U )on 03-27-2022 Bilirubin Ql (U) Negative Negative [facility] Clarity (Unsp spec) Clear Clear [facility] Color (U) Light Yellow Yellow [facility] Epithelial cells LM.HPF (Urine sed) [#/Area] Few [facility] Glucose Test strip (U) [Mass/Vol] Negative Negative [facility] Hemoglobin Ql (U) Negative Negative [facility] Ketones Ql (U) Negative Negative [facility] Leukocyte esterase Test strip Ql (U) Negative Negative [facility] Nitrite Ql (U) Negative Negative [facility] pH (U) 6.0 [pH] 5.0 - 8.0 [facility] Protein (U) [Mass/Vol] 1+ Abnormal Negative [facility] RBC LM.HPF (Urine sed) [#/Area] 0-3 /HPF 0-3 /HPF [facility] Specific gravity (U) [Rel density] 1.013 1.005 - 1.030 [facility] Urobilinogen Ql (U) Negative Negative [facility] WBC LM.HPF (Urine sed) [#/Area] 0-5 /HPF 0-5 /HPF [facility] VITAMIN B12 BLOODon 06-23-20 22 Cobalamin (Vitamin B12) [Mass/Vol] 784 pg/mL 232-1,245 pg/mL [facility] XR Hand - right PA and Later al and Obliqueon 06-19-2021 IMPRESSION: 1. No radiographic evidence of acute osseous injury. 2. Osteoarthritis. 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: TITUS Transcribe Date/Time: Jun 19 2021 4:04P Dictated by : NATASHA SAAVEDRA MD This examination was interpreted and the report reviewed and electronically signed by: NATASHA SAAVEDRA MD on Jun 19 2021 4:05PM [facility] DIVISION OF RADIOLOGY * * *Final [...] metacarpal phalangeal joints. DIVISION OF RADIOLOGY Provider, [facility] - 06/19/2021 * * *Final Report* * [...] evidence of acute osseous injury. 2. Osteoarthritis. 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: TITUS Transcribe Date/Time: Jun 19 2021 4:04P Dictated by : NATASHA SAAVEDRA MD This examination was interpreted and the report reviewed and electronically signed by: NATASHA SAAVEDRA MD on Jun 19 2021 4:05PM EST [facility] Radiology Study observation (narrative) [facility] XR Hand - right PA and Later al and ObliqueOrdered By: Ccf Provider on 06-19-2021 [facility] XR Hand - right PA and Later al and Obliqueon 05-18-2021 IMPRESSION: No convincing acute osseous abnormality. Soft tissue swelling over the dorsal metacarpophalangeal joints on the lateral view. Degenerative changes as described 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: TITUS Transcribe Date/Time: May 18 2021 11:59A Dictated by : STEPHANY STEWART MD This examination was interpreted and the report reviewed and electronically signed by: STEPHANY STEWART MD on May 18 2021 12:05PM [facility] DIVISION OF RADIOLOGY * * *Final [...] body. DIVISION OF RADIOLOGY Provider, [facility] [place] - 05/18/2021 * * *Final Report* * [...] the lateral view. Degenerative changes as described 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 Transcribe Date/Time: May 18 2021 11:59A Dictated by : STEPHANY STEWART MD This examination was interpreted and the report reviewed and electronically signed by: STEPHANY STEWART MD on May 18 2021 12:05PM EST [facility] Radiology Study observation (narrative) [facility] XR Hand - right PA and Later al and ObliqueOrdered By: Ccf Provider on 05-18-2021 [facility] XR Lumbar spine 3 Viewson IMPRESSION: DIFFUSE IDIOPATHIC SKELETAL HYPEROSTOSIS. SIGNIFICANT DEGENERATIVE CHANGES. STABLE 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: [facility] HOSPITAL[facility]y Transcribe Date/Time: Feb 18 2021 3:39P Dictated by : EDGAR KAY MD This examination was interpreted and the report reviewed and electronically signed by: EDGAR KAY MD on Feb 18 2021 3:40PM [facility] DIVISION OF RADIOLOGY * * *Final [...] focal bony abnormality [facility] * * *Final Report* [...] IDIOPATHIC SKELETAL HYPEROSTOSIS. SIGNIFICANT DEGENERATIVE CHANGES. STABLE 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: ITTUS Transcribe Date/Time: Feb 18 2021 3:39P Dictated by : EDGAR KAY MD This examination was interpreted and the report reviewed and electronically signed by: EDGAR KAY MD on Feb 18 2021 3:40PM [facility] Radiology Study observation (narrative) [facility] XR Lumbar spine 3 ViewsOrder ed By: Ccf Provider on 02-18-2021 [facility] OTARon 08-12-2019 OT Assessment Report Normal [facility] OTAR Occupational Therapy Performance Skills Evaluation Therapy [...] Demographics: Age: 74Y Gender: Male Primary Language: Sierra Leonean Preferred Language: Sierra Leonean OCCUPATIONAL PROFILE AND HISTORY Basic ADLs: he is able to complete all self care on his own and is doing so consistently Instrumental ADLs: he lives with his who 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; he stays busy throughout the day doing various tasks including dishes, outside work, laundry, cleaning tasks while had done meal prep in the past but not recently; manages their finances while Lory takes his own medications using pill box with no problems indicated Work/Leisure/Education: he completed 13 years of formal education; worked for 40 years at [employer] until 2004 while also typically having second job while 8 years at [employer] prior to retiring finally in 2006; he enjoys reading especially books about medical issues, woodworking, word searches, jigsaw puzzles although has not done this recently Driving History: Driving for: 60 years. Time Since Last Driven: early summer 2018 when they needed to take the truck to [facility] PATIENT NAME: LORY JOHNSON [address] MEDICAL REC #: [id number] [place] [address] ADMIT DATE: SERVICE DATE: 08/12/19 Occupational Therapy Assessment ATTENDING RHINA: Jami Scott while his was with him [employer] Commission Director's License Expiration Date: 03/20/21 State of: [place]; corrective lenses required for driving Type of Vehicle: 2008 [employer], 1989 [employer] Type of Insurance: [employer] Type of Driving Anticipated: Local Long distance Daytime Nighttime Hightway Reason for Driving is: [place] Social/Leisure Home management History of Accidents: Patient does not have a history of accidents. Traffic Violations: Patient does not have any traffic violations. Patient Report: Lory indicated that he has stayed busy while his is working and has not minded that she has been the experienced truck driver for the both of them since his stroke. Patient/Caregiver Goals: Patient and spouse/significant other's functional goals: to determine if Lory is able to return to safe operation of motor vehicle on his own Pain: Patient currently without complaints of pain. Social History: Marital Status: Children: daughter and son Reside: daughter in [place] and son in [place] Employment Status: retired since 2006 Recreational Activities/Hobbies: [...] for color and stereo depth perception, B [facility] PATIENT NAME: LORY JOHNSON [address] MEDICAL REC #: [id number] [place] [address] ADMIT DATE: SERVICE DATE: 08/12/19 Occupational Therapy [...] needs to rest more than previously while [facility] PATIENT NAME: LORY JOHNSON [address] MEDICAL REC #: [id number] [place] [address] ADMIT DATE: SERVICE DATE: 08/12/19 Occupational Therapy [...] said that their son recently moved from [facility] to [place], [place] but into home that is big enough for him to take his parents in to live there which he is encouraging them to consider given his dad's concerns; also indicated that while she continues to work time buyer, she has the ability to retire or [...] report, this therapist is recommending immediate driving cessation/[facility] which was discussed with Lory and his [...] significant other. Mode: Explanation. Printed material provided. [facility] PATIENT NAME: LORY JOHNSON [address] MEDICAL REC #: [id number] [place] [address] ADMIT DATE: SERVICE DATE: 08/12/19 Occupational Therapy [...] minutes (Timed: 72, Untimed: 60) 72.00 Timed: [77623] ADL-HOME MANAGEMENT EA 15 MIN 60.00 Untimed: [76230] OT-EVALUATION HIGH COMPLEX Signed by: YOLIE MARTINEZ, OT/L, CDRS, CDI/PD 08/16/2019 08:18:24 [facility] PATIENT NAME: LORY JOHNSON [address] MEDICAL REC #: [id number] [place] [address] ADMIT DATE: SERVICE DATE: 08/12/19 Occupational Therapy Assessment ATTENDING RHINA: Jami Scott Normal [facility] JORI Occupational Therapy Community Mobility and [...] demonstrated functional vision including as required by [facility] for far acuity and visual christine, oculomotor skills, within average visual processing speed for visual perceptual screening for age, functional auditory attention skills and retrieval of more [facility] information, functional physical skills other than as [...] following that incident; 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 Alternative transportation. He will need to continue to rely on his to provide assist with his transportation needs moving forward which she appears to be ready and capable of doing. Instrumental Activities of Daily Living. Briefly discussed some behaviors [facility] PATIENT NAME: LOYR JOHNSON [address] MEDICAL REC #: [id number] [place] [address] ADMIT DATE: SERVICE DATE: 08/12/19 Occupational Therapy [...] any vehicles in the future other than rx specialist with this indicating that she understands this and will assure that same. Additional Comments: Based on the various concerns indicated in this report, this therapist is recommending that Lory is no longer able to return to safe and independent operation of motor vehicle and therefore driving cessation/[facility] necessary. This therapist will provide information to Lory's physician regarding notifying the [facility] of the concern and recommendation so that they can follow through with doing same. Both Lory and his indicated understanding of this recommendation while agreement with following same. Date: 08/16/19 Occupational Therapist/Aeronautics Commission Director Floor Worker Well Service signature Please Note: The results and recommendations included in the [employer]eron[employer]ics Commission Director Evaluation Report are based on the patient's [...] may compromise the patient's ability as a experienced truck driver, this report can longer be relied upon as valid. If the patient's physical and mental status remains the same as during the evaluation period, the recommendations in the report should be considered valid for 6 months. Beyond that time, a re - evaluation may be necessary. Signed by: YOLIE MARTINEZ, OT/L, CDRS, CDI/PD 08/16/2019 08:55:50 [facility] PATIENT NAME: LORY JOHNSON [address] [place] MEDICAL REC #: [id number] [place] [address] ADMIT DATE: SERVICE DATE: 08/12/19 Occupational Therapy Assessment ATTENDING RHINA: [facility] CNOV Office Visit (AGCARDWST) -------LORY JOHNSON ([id number]) 1945 M NFRDate Time Provider Department11/16/17 3:30 [...] - metBeta shravan for ASHD with prior MO or prior LVEFANDlt;40 (NQF 0070) - metBeta [...] with treatment plan.This note was generated using [employer] voice recognition system, and there may besome [...] HISTORYProcedure Laterality Date- COLONOSCOP W/ OR W/O [facility] SPEC 02/2002 Colonoscopy- COLONOSCOP W/ OR W/O [facility] SPEC 09/14/07 normal- COLONOSCOP W/ OR W/O [facility] SPEC 07/23/2012 normal- EGD W/O OR [...] in the left system. He wastransferred [facility] where he had a stent.Most recent vascular studies showed mild atherosclerotic change with ectasia inthe mid abdominal aorta.Recent lab was reviewed. Renal function is normal. LDL was 95.EKG shows sinus rhythm. 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.Electronically Signed:Casey Brush MDFebruary 2017 4:01 [facility]:Crystal Eric MD 11/16/2017 4:00 PM SignedLIFESTYLE [...] programs in your area.Referring Provider: SHAYE [place] [[id number]]Allergies As of Date: 11/16/2017 Noted Allergy ReactionBETA-SHRAVAN S [Other] 08/01/2005LIPITOR (ATORVASTATIN) 08/01/2005 5 - IntoleranceVIAGRA (SILDENAFIL) 08/01/2005ZETIA (EZETIMIBE) 01/06/2008 1 - Mental Status ChangeZITHROMAX (AZITHROMYCIN) 08/01/2005 9 - ItchingDate Reviewed: 11/16/2017Reviewed by: Shira Mensah) Annette - Fully AssessedReason for Visit: Recheck [92]Primary Visit Diagnosis:ASHD (arteriosclerotic heart disease) [I25.10] Other Visit Diagnosis:Essential hypertension [I10]Order(s):ECG B/O W INTERP (MED OFFICE) [ECG06] Order #: [id number] MAGNESIUM BLD [SQMG1] Order #: [id number] FUTUREPrescriptions as of 11/16/2017 Sig: PRAVASTATIN 40 [...] the following areas and commit to making [place] [facility] changes. EAT A WHOLE FOOD, PLANT BASED [...] Status:Closed by CASEY BRUSH MD on 11/16/17 [facility] PROGRESSon 11-16-2017 PROGRESS HNO ID: [id number] thor: Casey Moss: (none)Author Type: PhysicianType: Progress NotesFiled: 11/16/2017 5:16 PMNote Text:PERTINENT CARDIAC HISTORYASHD - IMI, PCI RCA (complex) 10/18HTNHLOSA - no evidenceObesityADHERENCE TO GUIDELINESACE-I or ARB for HF with prior LVEF<40 (NQF 0081) - N/AASA or Plavix for ASHD (NQF 0067) - metBeta shravan for ASHD with prior MO or prior LVEF<40 (NQF 0070) - metBeta [...] with treatment plan.This note was generated using [employer] voice recognition system, and theremay be some [...] HISTORYProcedure Laterality Date- COLONOSCOP W/ OR W/O [facility] SPEC 02/2002 Colonoscopy- COLONOSCOP W/ OR W/O [facility] SPEC 09/14/07 normal- COLONOSCOP W/ OR W/O 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 He was transferred to [facility] where he had a stent.Most recent vascular studies showed mild atherosclerotic change withectasia in the mid abdominal aorta.Recent lab was reviewed. Renal function is normal. LDL was 95.EKG shows sinus rhythm. 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.Electronically Signed:Casey Brush MDFebruary 2017 4:01 [facility]:Adama Mendoza MD [facility] OBSOLETEon 08-24-2017 OBSOLETE Refill (AGCARDWST) -------LORY JOHNSON ([id number]) 1945 M NFRDate Time Provider Henvdtglge96/20/17 CASEY BRUSH During your visit today, we [...] 30 tabletRfl: 11 ALT/SGPT [SQALT] Order #: [id number] FUTURE CK CREATINE KINASE [SQCK] Order #: [id number] FUTUREPrescriptions as of 08/24/2017 Sig: PRAVASTATIN 40 [...] GARRISON LPN on 08/24/17 Normal [facility] Vital Signs Date Time Vital Sign Value Performing Clinician Facility 06-23-2025 13:49-0400 Body height 182.[address] Adama Mendoza MD Work Phone: [facility] 06-23-2025 13:49-0400 Body mass index (BMI) [Ratio] 26.6 kg/m2 Dr. Adama Mendoza MD Work Phone: [facility] 06-23-2025 13:49-0400 Body weight 88.[address] Adama Mendoza MD Work Phone: [facility] 06-23-2025 13:49-0400 Diastolic blood pressure 70 mm[Hg] Dr. Adama jensen MD Work Phone: [facility] 06-23-2025 13:49-0400 Heart rate 57 /min Dr. Adama Mendoza MD Work Phone: [facility] 06-23-2025 13:49-0400 Respiratory rate 16 /min Dr. Adama Mendoza MD Work Phone: [facility] 06-23-2025 13:49-0400 Systolic blood pressure 117 mm[Hg] Dr. Adama diamond MD Work Phone: [facility] 04-11-2025 14:10-0400 Body height 171.5 cm Adama Mendoza MD Work Phone: [facility] 04-11-2025 14:10-0400 Body mass index (BMI) [Ratio] 31.14 kg/m2 Adama Mendoza MD Work Phone: [facility] 04-11-2025 14:10-0400 Body weight 91.54 kg Adama Mendoza MD Work Phone: [facility] 04-11-2025 14:10-0400 Diastolic blood pressure 80 mm[Hg] Adama Mendoza MD Work Phone: [facility] 04-11-2025 14:10-0400 Heart rate 64 /min Adama Mendoza MD Work Phone: [facility] 04-11-2025 14:10-0400 Respiratory rate 16 /min Adama Mendoza MD Work Phone: [facility] 04-11-2025 14:10-0400 Systolic blood pressure 136 mm[Hg] Adama Pappas Work Phone: [facility] 01-09-2025 08:41-0400 Body mass index (BMI) [Ratio] 29.95 kg/m2 Claude Cardenas APRN.HANGER OFF Work Phone: [facility] 01-09-2025 08:41-0400 Body weight 92 kg Claude Cardenas APRN.CNP Work Phone: [facility] 01-09-2025 08:41-0400 Diastolic blood pressure 66 mm[Hg] Claude Cardenas APRN.HANGER OFF Work Phone: [facility] 01-09-2025 08:41-0400 Heart rate 76 /min Claude Cardenas APRN.HANGER OFF Work Phone: [facility] 01-09-2025 08:41-0400 Systolic blood pressure 155 mm[Hg] Claude Cardenas APRN.HANGER OFF Work Phone: [facility] 12-05-2024 13:42-0500 Body mass index (BMI) [Ratio] 29.53 kg/m2 Shaye Kitchen Jr., MD Work Phone: [facility] 12-05-2024 13:42-0500 Body weight 90.72 kg Shaye Kitchen Jr., MD Work Phone: [facility] 12-05-2024 13:42-0500 Diastolic blood pressure 76 mm[Hg] Shaye wooten MD Work Phone: [facility] 12-05-2024 13:42-0500 Heart rate 55 /min Shaye Kitchen Jr., MD Work Phone: [facility] 12-05-2024 13:42-0500 SaO2% (BldA) [Mass fraction] 97 % Shaye Kitchen Jr., MD Work Phone: [facility] 12-05-2024 13:42-0500 Systolic blood pressure 128 mm[Hg] Shaye Rodgers MD Work Phone: [facility] 11-25-2024 12:37-0500 Body mass index (BMI) [Ratio] 29.53 kg/m2 Claude Cardenas APRN.HANGER OFF Work Phone: [facility] 11-25-2024 12:37-0500 Body weight 90.72 kg Claude Cardenas APRN.HANGER OFF Work Phone: [facility] 11-25-2024 12:37-0500 Diastolic blood pressure 67 mm[Hg] Claude Cardenas APRN.HANGER OFF Work Phone: [facility] 11-25-2024 12:37-0500 Heart rate 61 /min Claude Cardenas APRN.HANGER OFF Work Phone: [facility] 11-25-2024 12:37-0500 SaO2% (BldA) [Mass fraction] 98 % Claude Cardenas APRN.HANGER OFF Work Phone: [facility] 11-25-2024 12:37-0500 Systolic blood pressure 127 mm[Hg] Claude Cardenas APRN.HANGER OFF Work Phone: [facility] 11-23-2024 13:20-0500 Body mass index (BMI) [Ratio] 29.68 kg/m2 Danita Meraz PA-C Work Phone: [facility] 11-23-2024 13:20-0500 Body temperature 97.7 [degF] Danita Meraz PA-C Work Phone: [facility] 11-23-2024 13:20-0500 Body weight 91.17 kg Danita Meraz PA-C Work Phone: [facility] 11-23-2024 13:20-0500 Diastolic blood pressure 84 mm[Hg] Danita gordon PA-C Work Phone: [facility] 11-23-2024 13:20-0500 Heart rate 57 /min Danita Meraz PA-C Work Phone: [facility] 11-23-2024 13:20-0500 Respiratory rate 16 /min Danita Meraz PA-C Work Phone: [facility] 11-23-2024 13:20-0500 SaO2% (BldA) [Mass fraction] 97 % Danita Meraz PA-C Work Phone: [facility] 11-23-2024 13:20-0500 Systolic blood pressure 118 mm[Hg] Danita Meraz PA-C Work Phone: [facility] 11-10-2024 15:05-0500 Body height 175.3 cm Adama Mendoza MD Work Phone: [facility] 11-10-2024 15:05-0500 Body mass index (BMI) [Ratio] 28.94 kg/m2 Adama Mendoza MD Work Phone: [facility] 11-10-2024 15:05-0500 Body weight 88.91 kg Adama Mendoza MD Work Phone: [facility] 11-10-2024 15:05-0500 Diastolic blood pressure 78 mm[Hg] Adama Mendoza MD Work Phone: [facility] 11-10-2024 15:05-0500 Heart rate 57 /min Adama Mendoza MD Work Phone: [facility] 11-10-2024 15:05-0500 SaO2% (BldA) [Mass fraction] 97 % Adama Mendoza MD Work Phone: [facility] 11-10-2024 15:05-0500 Systolic blood pressure 110 mm[Hg] Adama Pappas Work Phone: [facility] 10-25-2024 17:00-0500 Body temperature 97.59 [degF] Gail Reddy RN Work Phone: [facility] 10-25-2024 17:00-0500 Diastolic blood pressure 62 mm[Hg] Gail Reddy RN Work Phone: [facility] 10-25-2024 17:00-0500 Heart rate 68 /min Gail Reddy RN Work Phone: [facility] 10-25-2024 17:00-0500 Respiratory rate 16 /min Gail Reddy RN Work Phone: [facility] 10-25-2024 17:00-0500 SaO2% (BldA) [Mass fraction] 97 % Gail Reddy RN Work Phone: [facility] 10-25-2024 17:00-0500 Systolic blood pressure 118 mm[Hg] Gail Reddy R N Work Phone: [facility] 10-24-2024 13:03-0500 Body mass index (BMI) [Ratio] 29.24 kg/m2 Adama Mendoza MD Work Phone: [facility] 10-24-2024 13:03-0500 Body temperature 97 [degF] Adama Mendoza MD Work Phone: [facility] 10-24-2024 13:03-0500 Body weight 89.81 kg Adama Mendoza MD Work Phone: [facility] 10-24-2024 13:03-0500 Diastolic blood pressure 78 mm[Hg] Adama Mendoza MD Work Phone: [facility] 10-24-2024 13:03-0500 Heart rate 62 /min Adama Mendoza MD Work Phone: [facility] 10-24-2024 13:03-0500 Respiratory rate 18 /min Adama Mendoza MD Work Phone: [facility] 10-24-2024 13:03-0500 SaO2% (BldA) [Mass fraction] 99 % Adama Mendoza MD Work Phone: [facility] 10-24-2024 13:03-0500 Systolic blood pressure 150 mm[Hg] Adama Pappas Work Phone: [facility] 10-15-2024 18:22-0500 SaO2% (BldA) [Mass fraction] 97 % ADAMA [facility] Comment on above: Order Comment: Specimen Type: ARTERIAL B LOOD SPECIMENOrdering Facility: [facility] Address: [address] [place], [place] [id number] Performed By: #### A LLBG ####[facility]PIRATORYCL[facility] [id number] [facility] [id number] [place] [id number] 10-14-2024 15:48-0500 Diastolic blood pressure 60 mm[Hg] Margaret blanco SOLID PROPELLANT PROCESSOR.HANGER OFF Work Phone: [facility] Comment on above: provider notified 10-14-2024 15:48-0500 Systolic blood pressure 171 mm[Hg] Margaret baker SOLID PROPELLANT PROCESSOR.HANGER OFF Work Phone: [facility] Comment on above: provider notified 10-14-2024 12:21-0500 Body height 175.3 cm Gaudencio Doher DO Work Phone: [facility] 10-14-2024 12:21-0500 Body mass index (BMI) [Ratio] 29.98 kg/m2 Gaudencio Doher DO Work Phone: [facility] 10-14-2024 12:21-0500 Body weight 92.08 kg Gaudencio Doher DO Work Phone: [facility] 10-14-2024 12:21-0500 Diastolic blood pressure 68 mm[Hg] Gaudencio Doher DO Work Phone: [facility] 10-14-2024 12:21-0500 Heart rate 67 /min Gaudencio Doher DO Work Phone: [facility] 10-14-2024 12:21-0500 Systolic blood pressure 164 mm[Hg] Gaudencio Doher D O Work Phone: [facility] 10-11-2024 14:24-0500 Body mass index (BMI) [Ratio] 29.98 kg/m2 Adama Mendoza MD Work Phone: [facility] 10-11-2024 14:24-0500 Body weight 92.08 kg Adama Mendoza MD Work Phone: [facility] 10-11-2024 14:24-0500 Diastolic blood pressure 74 mm[Hg] Adama Mendoza MD Work Phone: [facility] 10-11-2024 14:24-0500 Heart rate 64 /min Adama Mendoza MD Work Phone: [facility] 10-11-2024 14:24-0500 Respiratory rate 16 /min Adama Mendoza MD Work Phone: [facility] 10-11-2024 14:24-0500 Systolic blood pressure 158 mm[Hg] Adama Pappas Work Phone: [facility] 09-20-2024 09:49-0500 Body mass index (BMI) [Ratio] 29.39 kg/m2 Adama Mendoza MD Work Phone: [facility] 09-20-2024 09:49-0500 Body temperature 97.81 [degF] Adama Mendoza MD Work Phone: [facility] 09-20-2024 09:49-0500 Body weight 90.27 kg Adama Mendoza MD Work Phone: [facility] 09-20-2024 09:49-0500 Diastolic blood pressure 74 mm[Hg] Adama Mendoza MD Work Phone: [facility] 09-20-2024 09:49-0500 Heart rate 60 /min Adama Mendoza MD Work Phone: [facility] 09-20-2024 09:49-0500 Respiratory rate 14 /min Adama Mendoza MD Work Phone: [facility] 09-20-2024 09:49-0500 Systolic blood pressure 112 mm[Hg] Adama Pappas Work Phone: [facility] 09-10-2024 09:02-0500 Body mass index (BMI) [Ratio] 29.68 kg/m2 Adama Mendoza MD Work Phone: [facility] 09-10-2024 09:02-0500 Body weight 91.17 kg Adama Mendoza MD Work Phone: [facility] 09-10-2024 09:02-0500 Diastolic blood pressure 75 mm[Hg] Adama Mendoza MD Work Phone: [facility] 09-10-2024 09:02-0500 Heart rate 66 /min Adama Mendoza MD Work Phone: [facility] 09-10-2024 09:02-0500 Respiratory rate 12 /min Adama Mendoza MD Work Phone: [facility] 09-10-2024 09:02-0500 Systolic blood pressure 123 mm[Hg] Adama Pappas Work Phone: [facility] 08-08-2024 14:09-0500 Body height 175.3 cm Rubén Gonzalez MD Work Phone: [facility] 08-08-2024 14:09-0500 Body mass index (BMI) [Ratio] 29.83 kg/m2 Rubén Gonzalez MD Work Phone: [facility] 08-08-2024 14:09-0500 Body temperature 97.7 [degF] Rubén Gonzalez MD Work Phone: [facility] 08-08-2024 14:09-0500 Body weight 91.63 kg Rubén Gonzalez MD Work Phone: [facility] 08-08-2024 14:09-0500 Diastolic blood pressure 74 mm[Hg] Rubén Gonzalez MD Work Phone: [facility] 08-08-2024 14:09-0500 Heart rate 60 /min Rubén Gonzalez MD Work Phone: [facility] 08-08-2024 14:09-0500 SaO2% (BldA) [Mass fraction] 97 % Rubén Gonzalez MD Work Phone: [facility] 08-08-2024 14:09-0500 Systolic blood pressure 126 mm[Hg] Rubén Pappas Work Phone: [facility] 07-21-2024 11:47-0400 Body mass index (BMI) [Ratio] 29.83 kg/m2 Danita Meraz PA-C Work Phone: [facility] 07-21-2024 11:47-0400 Body temperature 97.9 [degF] Danita Meraz PA-C Work Phone: [facility] 07-21-2024 11:47-0400 Body weight 91.63 kg Danita Meraz PA-C Work Phone: [facility] 07-21-2024 11:47-0400 Diastolic blood pressure 82 mm[Hg] Danita gordon PA-C Work Phone: [facility] 07-21-2024 11:47-0400 Heart rate 59 /min Danita Meraz PA-C Work Phone: [facility] 07-21-2024 11:47-0400 Respiratory rate 16 /min Danitaana lilia Meraz PA-C Work Phone: [facility] 07-21-2024 11:47-0400 SaO2% (BldA) [Mass fraction] 97 % Danita Meraz PA-C Work Phone: [facility] 07-21-2024 11:47-0400 Systolic blood pressure 122 mm[Hg] Danita Meraz PA-C Work Phone: [facility] 06-28-2024 13:14-0400 Body height 175.3 cm Amanda Bogner PA-C Work Phone: [facility] 06-28-2024 13:14-0400 Body mass index (BMI) [Ratio] 30.27 kg/m2 Amanda Bogner PA-C Work Phone: [facility] 06-28-2024 13:14-0400 Body weight 92.99 kg Amanda Bogner PA-C Work Phone: [facility] 06-28-2024 13:14-0400 Diastolic blood pressure 62 mm[Hg] Amanda Glennyn er PA-C Work Phone: [facility] 06-28-2024 13:14-0400 Heart rate 64 /min Amanda Bogner PA-C Work Phone: [facility] 06-28-2024 13:14-0400 Respiratory rate 14 /min Amanda Bogner PA-C Work Phone: [facility] 06-28-2024 13:14-0400 SaO2% (BldA) [Mass fraction] 96 % Amanda Bogner PA-C Work Phone: [facility] 06-28-2024 13:14-0400 Systolic blood pressure 122 mm[Hg] Amanda Murrietane r PA-C Work Phone: [facility] 06-22-2024 10:56-0400 Body mass index (BMI) [Ratio] 30.18 kg/m2 Jelena Tannhof SOLID PROPELLANT PROCESSOR.HANGER OFF Work Phone: [facility] 06-22-2024 10:56-0400 Body weight 92.7 kg Jelena Tannhof SOLID PROPELLANT PROCESSOR.HANGER OFF Work Phone: [facility] 06-22-2024 10:56-0400 Diastolic blood pressure 79 mm[Hg] Jelena Tannhof SOLID PROPELLANT PROCESSOR.HANGER OFF Work Phone: [facility] 06-22-2024 10:56-0400 Heart rate 62 /min Jelena Tannhof SOLID PROPELLANT PROCESSOR.HANGER OFF Work Phone: [facility] 06-22-2024 10:56-0400 Respiratory rate 16 /min Jelenanoel Perezhof SOLID PROPELLANT PROCESSOR.HANGER OFF Work Phone: [facility] 06-22-2024 10:56-0400 SaO2% (BldA) [Mass fraction] 96 % Jelenanoel Perezhof SOLID PROPELLANT PROCESSOR.HANGER OFF Work Phone: [facility] 06-22-2024 10:56-0400 Systolic blood pressure 144 mm[Hg] Jelena Tannhof SOLID PROPELLANT PROCESSOR.HANGER OFF Work Phone: [facility] 06-15-2024 11:04-0400 Body mass index (BMI) [Ratio] 30.86 kg/m2 Adama Mendoza MD Work Phone: [facility] 06-15-2024 11:04-0400 Body temperature 98.2 [degF] Adama Mendoza MD Work Phone: [facility] 06-15-2024 11:04-0400 Body weight 94.8 kg Adama Mendoza MD Work Phone: [facility] 06-15-2024 11:04-0400 Diastolic blood pressure 62 mm[Hg] Adama Mendoza MD Work Phone: [facility] 06-15-2024 11:04-0400 Heart rate 73 /min Adama Mendoza MD Work Phone: [facility] 06-15-2024 11:04-0400 Respiratory rate 14 /min Adama Mendoza MD Work Phone: [facility] 06-15-2024 11:04-0400 SaO2% (BldA) [Mass fraction] 97 % Adama Mendoza MD Work Phone: [facility] 06-15-2024 11:04-0400 Systolic blood pressure 106 mm[Hg] Adama Pappas Work Phone: [facility] 06-15-2024 07:10-0400 Body mass index (BMI) [Ratio] 30.86 kg/m2 Jelena Tannhof SOLID PROPELLANT PROCESSOR.HANGER OFF Work Phone: [facility] [place] 06-15-2024 07:10-0400 Body weight 94.8 kg Jelena Tannhof SOLID PROPELLANT PROCESSOR.HANGER OFF Work Phone: [facility] [place] 06-15-2024 07:10-0400 Diastolic blood pressure 70 mm[Hg] Jelena Tannhof SOLID PROPELLANT PROCESSOR.HANGER OFF Work Phone: [facility] [place] 06-15-2024 07:10-0400 Heart rate 75 /min Jelena Tannhof SOLID PROPELLANT PROCESSOR.HANGER OFF Work Phone: [facility] [place] 06-15-2024 07:10-0400 Respiratory rate 16 /min Jelena Tannhof SOLID PROPELLANT PROCESSOR.HANGER OFF Work Phone: [facility] [place] 06-15-2024 07:10-0400 SaO2% (BldA) [Mass fraction] 97 % Jelena Tannhof SOLID PROPELLANT PROCESSOR.HANGER OFF Work Phone: [facility] [place] 06-15-2024 07:10-0400 Systolic blood pressure 118 mm[Hg] Jelena Tannhof SOLID PROPELLANT PROCESSOR.HANGER OFF Work Phone: [facility] [place] 05-12-2024 14:17-0400 Body mass index (BMI) [Ratio] 31.01 kg/m2 Stephany Suarez MD Work Phone: [facility] [place] 05-12-2024 14:17-0400 Body weight 95.25 kg Stephany Suarez MD Work Phone: [facility] [place] 05-12-2024 14:17-0400 Diastolic blood pressure 60 mm[Hg] Stephany Suarez MD Work Phone: [facility] [place] 05-12-2024 14:17-0400 Heart rate 57 /min Stephany Suarez MD Work Phone: [facility] [place] 05-12-2024 14:17-0400 Respiratory rate 14 /min Stephany Suarez MD Work Phone: [facility] [place] 05-12-2024 14:17-0400 SaO2% (BldA) [Mass fraction] 95 % Stephany Suarez MD Work Phone: [facility] [place] 05-12-2024 14:17-0400 Systolic blood pressure 118 mm[Hg] Stephany Suarez MD Work Phone: [facility] [place] 04-11-2024 13:43-0400 Body height 175.3 cm Adama Mendoza MD Work Phone: [facility] [place] 04-11-2024 13:43-0400 Body mass index (BMI) [Ratio] 31.45 kg/m2 Adama Mendoza MD Work Phone: [facility] [place] 04-11-2024 13:43-0400 Body weight 96.62 kg Adama Mendoza MD Work Phone: [facility] [place] 04-11-2024 13:43-0400 Diastolic blood pressure 72 mm[Hg] Adama Mendoza MD Work Phone: [facility] [place] 04-11-2024 13:43-0400 Heart rate 60 /min Adama Mendoza MD Work Phone: [facility] [place] 04-11-2024 13:43-0400 Respiratory rate 18 /min Adama Mendoza MD Work Phone: [facility] [place] 04-11-2024 13:43-0400 Systolic blood pressure 120 mm[Hg] Adama Pappas Work Phone: [facility] [place] 03-04-2024 13:47-0400 Body mass index (BMI) [Ratio] 31.4 kg/m2 Shaye Kitchen Jr., MD Work Phone: [facility] [place] 03-04-2024 13:47-0400 Body weight 96.44 kg Shaye Kitchen Jr., MD Work Phone: [facility] [place] 03-04-2024 13:47-0400 Diastolic blood pressure 84 mm[Hg] Shaye wooten MD Work Phone: [facility] [place] 03-04-2024 13:47-0400 Heart rate 58 /min Shaye Kitchen Jr., MD Work Phone: [facility] [place] 03-04-2024 13:47-0400 Respiratory rate 16 /min Shaye Kitchen Jr., MD Work Phone: [facility] [place] 03-04-2024 13:47-0400 SaO2% (BldA) [Mass fraction] 96 % Shaye Kitchen Jr., MD Work Phone: [facility] [place] 03-04-2024 13:47-0400 Systolic blood pressure 132 mm[Hg] Shaye Rodgers MD Work Phone: [facility] [place] 03-04-2024 11:49-0400 Body mass index (BMI) [Ratio] 31.45 kg/m2 Danita Meraz PA-C Work Phone: [facility] [place] 03-04-2024 11:49-0400 Body weight 96.62 kg Danita CHISHOLM-C Work Phone: [facility] [place] 03-04-2024 11:49-0400 Diastolic blood pressure 69 mm[Hg] Danita gordon PA-C Work Phone: [facility] [place] 03-04-2024 11:49-0400 Heart rate 58 /min Danita Meraz PA-C Work Phone: [facility] [place] 03-04-2024 11:49-0400 Respiratory rate 20 /min Danita Meraz PA-C Work Phone: [facility] [place] 03-04-2024 11:49-0400 SaO2% (BldA) [Mass fraction] 97 % Danita Meraz PA-C Work Phone: [facility] [place] 03-04-2024 11:49-0400 Systolic blood pressure 135 mm[Hg] Danita Meraz PA-C Work Phone: [facility] [place] 01-22-2024 10:02-0400 Body height 175.3 cm Jessica Miramontes PA-C Work Phone: [facility] [place] 01-22-2024 10:02-0400 Body weight 97.05 kg Jessicabarbara Dodsoner PA-C Work Phone: [facility] [place] 01-22-2024 10:02-0400 Diastolic blood pressure 78 mm[Hg] Jessica Miramontes PA-C Work Phone: [facility] [place] 01-22-2024 10:02-0400 Heart rate 62 /min Jessica Miramontes PA-C Work Phone: [facility] [place] 01-22-2024 10:02-0400 SaO2% (BldA) [Mass fraction] 96 % Jessicabarbara Dodsonprudence PA-C Work Phone: [facility] [place] 01-22-2024 10:02-0400 Systolic blood pressure 144 mm[Hg] Jessica prudence PA-C Work Phone: [facility] [place] 12-15-2023 09:58-0400 Body height 171.4 cm Pulm Wstr Work Phone: [facility] [place] 12-15-2023 09:58-0400 Body weight 95.71 kg Pulm Wstr Work Phone: [facility] [place] 12-15-2023 09:58-0400 Heart rate 57 /min Pulm Wstr Work Phone: [facility] [place] 12-15-2023 09:58-0400 Respiratory rate 14 /min Pulm Wstr Work Phone: [facility] [place] 12-15-2023 09:58-0400 SaO2% (BldA) [Mass fraction] 98 % Pulm Wstr Work Phone: [facility] [place] 11-20-2023 14:18-0500 Body weight 94.17 kg Shaye Kitchen Jr., MD Work Phone: [facility] [place] 11-20-2023 14:18-0500 Diastolic blood pressure 60 mm[Hg] Shaye wooten MD Work Phone: [facility] [place] 11-20-2023 14:18-0500 Heart rate 58 /min Shaye Kitchen Jr., MD Work Phone: [facility] [place] 11-20-2023 14:18-0500 Respiratory rate 16 /min Shaye Kitchen Jr., MD Work Phone: [facility] [place] 11-20-2023 14:18-0500 SaO2% (BldA) [Mass fraction] 96 % Shaye Kitchen Jr., MD Work Phone: [facility] [place] 11-20-2023 14:18-0500 Systolic blood pressure 116 mm[Hg] Shaye Rodgers MD Work Phone: [facility] [place] 09-26-2023 12:00-0500 Respiratory rate 18 /min [facility] 09-26-2023 11:03-0500 Body temperature 97.3 [degF] [facility] 09-26-2023 11:03-0500 Diastolic blood pressure 77 mm[Hg] [facility] 09-26-2023 11:03-0500 Heart rate 57 /min [facility] 09-26-2023 11:03-0500 SaO2% (BldA) [Mass fraction] 98 % [facility] 09-26-2023 11:03-0500 Systolic blood pressure 153 mm[Hg] [facility] 09-26-2023 10:59-0500 Body height 173 cm [facility] 09-26-2023 10:59-0500 Body mass index (BMI) [Ratio] 32.5 kg/m2 [facility] 09-26-2023 10:59-0500 Body weight 97.4 kg [facility] 07-14-2023 14:49-0400 Body temperature 97.7 [degF] Adama Mendoza MD Work Phone: [facility] [place] 07-14-2023 14:49-0400 Body weight 94.35 kg Adama Mendoza MD Work Phone: [facility] [place] 07-14-2023 14:49-0400 Diastolic blood pressure 68 mm[Hg] Adama Mendoza MD Work Phone: [facility] [place] 07-14-2023 14:49-0400 Heart rate 58 /min Adama Mendoza MD Work Phone: [facility] [place] 07-14-2023 14:49-0400 Respiratory rate 18 /min Adama Mendoza MD Work Phone: [facility] [place] 07-14-2023 14:49-0400 SaO2% (BldA) [Mass fraction] 98 % Adama Mendoza MD Work Phone: [facility] [place] 07-14-2023 14:49-0400 Systolic blood pressure 122 mm[Hg] Adama Pappas Work Phone: [facility] [place] 06-23-2023 08:44-0400 Body weight 97.07 kg Adama Mendoza MD Work Phone: [facility] [place] 06-23-2023 08:44-0400 Diastolic blood pressure 82 mm[Hg] Adama Mendoza MD Work Phone: [facility] [place] 06-23-2023 08:44-0400 Heart rate 66 /min Adama Mendoza MD Work Phone: [facility] [place] 06-23-2023 08:44-0400 Respiratory rate 16 /min Adama Mendoza MD Work Phone: [facility] [place] 06-23-2023 08:44-0400 SaO2% (BldA) [Mass fraction] 94 % Adama Mendoza MD Work Phone: [facility] [place] 06-23-2023 08:44-0400 Systolic blood pressure 124 mm[Hg] Adama Pappas Work Phone: [facility] [place] 06-17-2023 15:51-0400 Diastolic blood pressure 76 mm[Hg] [facility] 06-17-2023 15:51-0400 Heart rate 73 /min [facility] 06-17-2023 15:51-0400 Respiratory rate 19 /min [facility] 06-17-2023 15:51-0400 SaO2% (BldA) [Mass fraction] 97 % [facility] 06-17-2023 15:51-0400 Systolic blood pressure 148 mm[Hg] [facility] 06-17-2023 15:40-0400 Body temperature 100.2 [degF] [facility] 06-17-2023 13:30-0400 Body height 172.72 cm [facility] 04-30-2023 15:01-0400 Body temperature 97.5 [degF] Jeff Crouch MD Work Phone: [facility] [place] 04-30-2023 15:01-0400 Body weight 98.16 kg Jeff Crouch MD Work Phone: [facility] [place] 04-30-2023 15:01-0400 Diastolic blood pressure 70 mm[Hg] Jeff Crouch MD Work Phone: [facility] [place] 04-30-2023 15:01-0400 Heart rate 58 /min Jeff Crouch MD Work Phone: [facility] [place] 04-30-2023 15:01-0400 Respiratory rate 16 /min Jeff Crouch MD Work Phone: [facility] [place] 04-30-2023 15:01-0400 SaO2% (BldA) [Mass fraction] 94 % Jeff Crouch MD Work Phone: [facility] [place] 04-30-2023 15:01-0400 Systolic blood pressure 126 mm[Hg] Jeff Crouch MD Work Phone: [facility] [place] 04-14-2023 11:50-0400 Body height 171.5 cm Adama Mendoza MD Work Phone: [facility] [place] 04-14-2023 11:50-0400 Body weight 99.34 kg Adama Mendoza MD Work Phone: [facility] [place] 04-14-2023 11:50-0400 Diastolic blood pressure 74 mm[Hg] Adama Mendoza MD Work Phone: [facility] [place] 04-14-2023 11:50-0400 Heart rate 68 /min Adama Mendoza MD Work Phone: [facility] [place] 04-14-2023 11:50-0400 Respiratory rate 16 /min Adama Mendoza MD Work Phone: [facility] [place] 04-14-2023 11:50-0400 Systolic blood pressure 132 mm[Hg] Adama Pappas Work Phone: [facility] [place] 04-06-2023 11:57-0400 Body temperature 98.29 [degF] Danita Meraz PA-C Work Phone: [facility] [place] 04-06-2023 11:57-0400 Body weight 98.88 kg Danita Meraz PA-C Work Phone: [facility] [place] 04-06-2023 11:57-0400 Diastolic blood pressure 86 mm[Hg] Danita gordon PA-C Work Phone: [facility] [place] 04-06-2023 11:57-0400 Heart rate 58 /min Danita Meraz PA-C Work Phone: [facility] [place] 04-06-2023 11:57-0400 Respiratory rate 16 /min Danita Meraz PA-C Work Phone: [facility] [place] 04-06-2023 11:57-0400 Systolic blood pressure 118 mm[Hg] Danita Meraz PA-C Work Phone: [facility] [place] 10-09-2022 11:17-0500 Diastolic blood pressure 78 mm[Hg] Adama Mendoza MD Work Phone: [facility] [place] 10-09-2022 11:17-0500 Systolic blood pressure 142 mm[Hg] Adama Pappas Work Phone: [facility] [place] 10-09-2022 11:03-0500 Body weight 97.98 kg Adama Mendoza MD Work Phone: [facility] [place] 10-09-2022 11:03-0500 Heart rate 64 /min Adama Mendoza MD Work Phone: [facility] [place] 10-09-2022 11:03-0500 Respiratory rate 16 /min Adama Mendoza MD Work Phone: [facility] [place] 07-24-2022 21:41-0400 Diastolic blood pressure 80 mm[Hg] [facility] Work Phone: 07-24-2022 21:41-0400 Heart rate 73 /min [facility] Work Phone: 07-24-2022 21:41-0400 Respiratory rate 15 /min [facility] Work Phone: 07-24-2022 21:41-0400 SaO2% (BldA) [Mass fraction] 93 % [facility] Work Phone: 07-24-2022 21:41-0400 Systolic blood pressure 152 mm[Hg] [facility] Work Phone: 07-24-2022 21:15-0400 Inhaled oxygen flow rate 0 L/min [facility] Work Phone: 07-24-2022 20:46-0400 Inhaled oxygen concentration 100 % [facility] Work Phone: 07-24-2022 20:45-0400 Body temperature 98.8 [degF] [facility] Work Phone: 07-24-2022 16:08-0400 Body height 172.72 cm [facility] Work Phone: 07-24-2022 16:08-0400 Body mass index (BMI) [Ratio] 35.4 kg/m2 [facility] Work Phone: 07-24-2022 16:08-0400 Body weight 105.8 kg [facility] Work Phone: 04-04-2022 14:35-0400 Body height 170.2 cm Eulalia Odonnell MD Work Phone: [facility] [place] 04-04-2022 14:35-0400 Body temperature 97.9 [degF] Eulalia Odonnell MD Work Phone: [facility] [place] 04-04-2022 14:35-0400 Body weight 100.25 kg Eulalia Odonnell MD Work Phone: [facility] [place] 04-04-2022 14:35-0400 Diastolic blood pressure 72 mm[Hg] Eulalia Odonnell MD Work Phone: [facility] [place] 04-04-2022 14:35-0400 Heart rate 75 /min Eulalia Odonnell MD Work Phone: [facility] [place] 04-04-2022 14:35-0400 SaO2% (BldA) [Mass fraction] 94 % Eulalia Odonnell MD Work Phone: [facility] [place] 04-04-2022 14:35-0400 Systolic blood pressure 150 mm[Hg] Eulalia Odonnell MD Work Phone: [facility] [place] 04-02-2022 07:03-0400 Body temperature 97.81 [degF] Danita Meraz PA-C Work Phone: [facility] [place] 04-02-2022 07:03-0400 Body weight 100.7 kg Danita Meraz PA-C Work Phone: [facility] [place] 04-02-2022 07:03-0400 Diastolic blood pressure 76 mm[Hg] Danita gordon PA-C Work Phone: [facility] [place] 04-02-2022 07:03-0400 Heart rate 60 /min Danita Meraz PA-C Work Phone: [facility] [place] 04-02-2022 07:03-0400 Respiratory rate 16 /min Danita Meraz PA-C Work Phone: [facility] [place] 04-02-2022 07:03-0400 Systolic blood pressure 138 mm[Hg] Danita Meraz PA-C Work Phone: [facility] [place] 03-26-2022 15:27-0400 Body height 170.2 cm Adama Mendoza MD Work Phone: [facility] [place] 03-26-2022 15:27-0400 Body weight 101.15 kg Adama Mendoza MD Work Phone: [facility] [place] 03-26-2022 15:27-0400 Diastolic blood pressure 80 mm[Hg] Adama Mendoza MD Work Phone: [facility] [place] 03-26-2022 15:27-0400 Heart rate 64 /min Adama Mendoza MD Work Phone: [facility] [place] 03-26-2022 15:27-0400 Respiratory rate 16 /min Adama Mendoza MD Work Phone: [facility] [place] 03-26-2022 15:27-0400 Systolic blood pressure 140 mm[Hg] Adama Pappas Work Phone: [facility] [place] Encounters Encounter Date Encounter Type Care Provider Facility Start: 07-17-2025 End: 07-17-2025 ambulatory ADAMA MENDOZA Facility:[facility] Start: 06-23-2025 End: 06-23-[address] Cayden Morton MD [facility] Work Phone: Start: 06-23-2025 End: 06-23-2025 ambulatory Adama Mendoza Facility:[facility] Start: 06-12-2025 End: 06-12-2025 Refill Adama Mendoza MD Work Phone: [facility] Comment on above: Refill Request Start: 06-02-2025 End: 06-02-2025 Patient encounter procedure Dandy Faith Work Phone: Podiatry Comment on above: Onychomycosis (Prima ry Dx); Pain in toe of left foot; Pain in toe of right foot; Diminished pulses in lower extremity Start: 06-02-2025 End: 06-02-2025 ambulatory DANDY FAITH Facility:[facility] Start: 06-01-2025 End: 06-01-2025 ambulatory Ayesha Rosas [facility] Start: 06-01-2025 End: 06-01-2025 Patient encounter procedure Ayesha Grimaldo [facility] [place] Comment on above: Population Health Na vigation Outreach ([place]/[employer]O ) Start: 05-22-2025 End: 05-22-2025 Refill Adama Mendoza MD Work Phone: [facility] Comment on above: Refill Request Start: 05-16-2025 End: 05-16-2025 Refill Adama Mendoza MD Work Phone: [facility] Comment on above: Refill Request Start: 04-19-2025 End: 04-20-2025 Follow-up encounter Adama Mendoza MD Work Phone: [facility] Comment on above: Results Start: 04-13-2025 End: 04-13-2025 ambulatory ADAMA MENDOZA Facility:[facility] Start: 04-12-2025 End: 06-12-2025 Refill Adama Mendoza MD Work Phone: [facility] Comment on above: Refill Request Results Start: 04-11-2025 End: 04-11-2025 ambulatory ADAMA MENDOZA Facility:[facility] Start: 04-11-2025 End: 04-11-2025 Patient encounter procedure Adama Mendoza MD Work Phone: [facility] Comment on above: Medicare annual [...] Start: 04-11-2025 End: 04-11-2025 ambulatory ADAMA MENDOZA Facility:[facility] Start: 03-29-2025 End: 03-29-2025 Refill Adama Mendoza MD Work Phone: [facility] [place] Comment on above: Refill Request Start: 03-16-2025 End: 03-16-2025 Telephone encounter Licha Vázquez [address] Comment on above: Patient Question Start: 03-15-2025 End: 03-15-2025 Refill Adama Mendoza MD Work Phone: [facility] Comment on above: Refill Request Start: 02-24-2025 End: 02-24-2025 ambulatory [facility] Facility:[facility] Start: 01-24-2025 End: 01-24-2025 Refill Adama Mendoza MD Work Phone: [facility] Comment on above: Refill Request Start: 01-16-2025 End: 01-16-2025 Refill Adama Mendoza MD Work Phone: [facility] Comment on above: Refill Request Start: 01-09-2025 End: 01-09-2025 Follow-up encounter Claude Cardenas APRN.CNP Work Phone: [facility] [place] Start: 01-09-2025 End: 01-09-2025 Subsequent hospital visit by physician [facility] Work Phone: Radiology Comment on above: Fall, initial encoun ter [W19.XXXA] Start: 01-09-2025 End: 01-09-2025 Patient encounter procedure Claude Cardenas APRN.CNP Work Phone: [facility] Comment on above: Fall, initial encoun ter (Primary Dx); Right arm pain; Acute pain of right shoulder; Right hip pain Start: 01-09-2025 End: 01-09-2025 ambulatory ADAMA MENDOZA Facility:[facility] Start: 12-28-2024 End: 12-28-2024 Refill Adama Mendoza MD Work Phone: [facility] Comment on above: Refill Request Start: 12-19-2024 End: 12-19-2024 Refill Adama Mendoza MD Work Phone: [facility] Comment on above: Refill Request Start: 12-14-2024 End: 12-14-2024 Refill Adama Mendoza MD Work Phone: [facility] Comment on above: Refill Request Start: 12-05-2024 [...] Start: 12-05-2024 End: 12-05-2024 ambulatory ADAMA MENDOZA Facility:[facility] Start: 11-25-2024 End: 11-25-2024 Patient encounter procedure Claude Cardenas APRN.CNP Work Phone: [facility] Comment on above: Pressure sensation i n both ears (Primary Dx) Start: 11-25-2024 End: 11-25-2024 ambulatory [facility] Facility:[facility] Start: 11-25-2024 End: 11-25-2024 [facility] Facility:[facility] Start: 11-25-2024 End: 11-25-2024 Patient encounter procedure Dandy Faith Work Phone: Podiatry Comment on above: Onychomycosis (Prima ry Dx); Pain in toe of left foot; Pain in toe of right foot; Left foot pain Start: 11-23-2024 End: 11-23-2024 Patient encounter procedure Danita Meraz PA-C Work Phone: [facility] Comment on above: URI, acute (Primary Dx) Start: 11-23-2024 End: 11-23-2024 ambulatory ADAMA [facility] Facility:[facility] Start: 11-18-2024 End: 11-21-2024 ambulatory Perla Cummings RN Reference Librarian Management Comment on above: Initial enrollment o [facility] for Chronic Disease Management Start: 11-17-2024 End: 11-17-2024 Refill Adama Mendoza MD Work Phone: [facility] Comment on above: Refill Request Start: 11-14-2024 End: 11-14-2024 Patient Outreach Brianna Doe RN Reference L[employer] Management Comment on above: High Risk phone cont act for Transitional Care Management Start: 11-13-2024 End: 11-13-2024 Patient encounter procedure Room Emergency Radiology Start: 11-13-2024 End: 11-13-2024 Emergency department patient visit Room Emergency Radiology Comment on above: Radio Gen RMP Start: 11-10-2024 End: 11-10-2024 ambulatory ADAMA MENDOZA Facility:[facility] Start: 11-10-2024 End: 11-10-2024 Patient encounter procedure Adama Mendoza MD Work Phone: [facility] [place] Comment on above: Bacterial pneumonia (Primary Dx); Pressure injury of left buttock, stage 2 (HCC) Start: 11-07-2024 End: 11-07-2024 Home visit Adama Mendoza MD Work Phone: [facility] Comment on above: Alzheimer's disease (HCC) (Primary Dx) Start: 11-03-2024 End: 11-03-2024 Refill Adama Mendoza MD Work Phone: [facility] Comment on above: Refill Request Transition Of Care ( TCM follow-up call #2: Discharged 10/20/2024) Weekly phone contact (Recurring) for Transitional Care Management Start: 10-27-2024 End: 10-27-2024 ambulatory Brianna Doe RN Reference Librarian Management Comment on above: Left hip pain Start: 10-27-2024 End: 11-02-2024 Telephone encounter Dedra Chamorro [facility] Comment on above: Home Care (PT/OT Del ay in service call ) Home Care (cx home P T and OT) Start: 10-27-2024 End: 10-27-2024 Telephone follow-up Brianna Doe RN Reference Librarian Management Comment on above: Transition Of Care ( TCM follow up call #1: Discharged 10/20/24) Weekly phone contact (Recurring) for Transitional Care Management Start: 10-27-2024 End: 10-27-2024 Home visit Parrish Cotton PT Work Phone: [facility] Comment on above: TELEPHONE CONTACT SN AGENCY DC WO VISI T Start: 10-26-2024 End: 10-26-2024 Telephone encounter Gail Reddy RN Work Phone: [facility] Comment on above: Home Care Start: 10-25-2024 End: 10-25-2024 Home visit Anibal Zavala PT Work Phone: [facility] Comment on above: PT ATTEMPTED VISIT SN ROUTINE Start: 10-24-2024 End: 10-24-2024 Patient encounter procedure Adama Mendoza MD Work Phone: [facility] Comment on above: Acute encephalopathy (Primary Dx); 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); Dementia with behavioral disturbance (HCC); Muscular deconditioning; Pneumonia of left lower lobe due to infectious organism; Decubitus ulcer of left buttock, stage 2 (HCC) Start: 10-24-2024 End: 10-24-2024 ambulatory ADAMA MENDOZA Facility:[facility] Start: 10-21-2024 End: 10-21-2024 Patient Outreach Brianna Doe RN Reference Librarian Management Comment on above: Transition Of Care ( TCM initial call: Discharged 10/21/24) Initial phone contact for Transitional Care Management Start: 10-20-2024 End: 10-20-2024 Telephone encounter Rosalina Knutson LPN Work Phone: [facility] Comment on above: Home Care (Confirmat ion Call /) Home Care (MD lisette whittaker) Start: 10-15-2024 End: 10-20-2024 Evaluation and management of inpatient ADAMA MENDOZA Facility:[facility] Start: 10-15-2024 End: 10-15-2024 Patient [...] (Primary Dx) Start: 10-14-2024 End: 10-14-2024 ambulatory [facility] Facility:[facility] Start: 10-14-2024 End: 10-14-2024 Nursing evaluation of patient and report Nurse Card Indy Sousa Work Phone: Cardiology Comment on above: Transient cerebral i schemia, unspecified type Start: 10-14-2024 End: 10-14-2024 ambulatory [facility] Facility:[facility] Start: 10-14-2024 End: 10-14-2024 Patient encounter procedure Margaret Ardon APRN.CNP Work Phone: Neurology Comment on above: Dementia without beh avioral disturbance (HCC) (Primary Dx); NAIN (obstructive sleep apnea); History of CVA (cerebrovascular accident); Altered mental status, unspecified altered mental status type; Abnormal EEG; Transient cerebral ischemia, unspecified type Start: 10-11-2024 End: 10-11-2024 Patient encounter procedure Adama Mendoza MD Work Phone: [facility] Comment on above: Cellulitis of skin ( Primary Dx); Open wound of skin; Dementia with behavioral disturbance (HCC); 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) Start: 10-11-2024 End: 10-11-2024 ambulatory [facility] Facility:[facility] Start: 09-22-2024 End: 09-22-2024 Telephone encounter Margaret Ardon APRN.CNP Work Phone: Neurology Comment on above: Appointment Start: 09-21-2024 End: 09-22-2024 Telephone encounter Danita Meraz PA-C Work Phone: [facility] Comment on above: Results requesting help/summer mmendations Start: 09-21-2024 End: 09-21-2024 Emergency department patient visit [facility] Facility:[facility] Start: 09-20-2024 End: 09-20-2024 Patient encounter procedure Adama Mendoza MD Work Phone: [facility] Comment on above: Cellulitis of skin ( Primary Dx); Rash; Encounter for immunization Start: 09-20-2024 End: 09-20-2024 ambulatory ADAMA MENDOZA Facility:[facility] Start: 09-19-2024 End: 09-19-2024 Telephone encounter Adama Mendoza MD Work Phone: [facility] [place] Comment on above: Patient Question (re : vaccines); buttock lesion Start: 09-17-2024 End: 09-19-2024 Refill Adama Mendoza MD Work Phone: [facility] Medicine [facility] Comment on above: Refill Request Start: 09-16-2024 End: 09-20-2024 Refill Adama Mendoza MD Work Phone: [facility] [place] Comment on above: Refill Request Start: 09-13-2024 End: 09-14-2024 Telephone encounter Adama Mendoza MD Work Phone: [facility] [place] Comment on above: Results Start: 09-12-2024 End: 09-12-2024 Refill Shaye Kitchen MD Work Phone: Neurology Comment on above: Refill Request Start: 09-10-2024 End: 09-10-2024 Subsequent hospital visit by physician [facility] Work Phone: Radiology Comment on above: Left hip pain [M25.5 52] Start: 09-10-2024 End: 09-10-2024 Patient encounter procedure Adama Mendoza MD Work Phone: [facility] Comment on above: Left hip pain (Prima ry Dx) Start: 09-10-2024 End: 09-10-2024 ambulatory ADAMA MENDOZA Facility:[facility] Start: 09-06-2024 End: 09-08-2024 Telephone encounter Rubén Gonzalez MD Work Phone: General Surgery Comment on above: Biopsy results Start: 09-05-2024 End: 09-05-2024 Refill Adama Mendoza MD Work Phone: [facility] Comment on above: Refill Request Start: 08-29-2024 End: 08-29-2024 Refill Shaye Kitchen MD Work Phone: Neurology Comment on above: Refill Request Start: 08-22-2024 End: 08-22-2024 ambulatory ADAMA MENDOZA Facility:[facility] Start: 08-22-2024 End: 08-22-2024 Patient encounter procedure Rubén Gonzalez MD Work Phone: General Surgery Comment on above: Mass of subcutaneous tissue of back (Primary Dx) Start: 08-16-2024 End: 08-16-2024 Nursing evaluation of patient and report Mi Nurse Work Phone: [facility] Comment on above: Encounter for immuni zation Start: 08-16-2024 End: 08-16-2024 ambulatory ADAMA MENDOZA Facility:[facility] Start: 08-08-2024 End: 08-08-2024 ambulatory ADAMA MENDOZA Facility:[facility] Start: 08-08-2024 End: 08-08-2024 Patient encounter procedure Rubén Gonzalez MD Work Phone: General Surgery Comment on above: Mass of subcutaneous tissue of back Start: 08-01-2024 End: 08-01-2024 Telephone encounter Danita Meraz PA-C Work Phone: [facility] Comment on above: Results Start: 07-27-2024 End: 07-27-2024 Refill Adama Mendoza MD Work Phone: [facility] Comment on above: Refill Request Mass of subcutaneous tissue of back [R22.2] Start: 07-21-2024 End: 07-21-2024 Patient encounter procedure Danita Meraz PA-C Work Phone: [facility] Comment on above: Mass of subcutaneous tissue of back (Primary Dx) Start: 07-07-2024 End: 07-07-2024 Refill Adama Mendoza MD Work Phone: [facility] Comment on above: Refill Request Start: 06-28-2024 End: 06-28-2024 Office outpatient visit 25 minutes Amanda Montana PA-C Work Phone: [facility] [place] Comment on above: Pain of finger of le ft hand (Primary Dx) Start: 06-22-2024 End: 06-22-2024 Patient encounter procedure Jelena Lazar APRN.HANGER OFF Work Phone: [facility] [place] Comment on above: Cellulitis of skin ( Primary Dx); Acute gout of right elbow, unspecified cause; Bacterial pneumonia Refill Request Start: 06-16-2024 End: 06-16-2024 Telephone encounter Adama Mendoza MD Work Phone: [facility] Comment on above: Results Start: 06-15-2024 End: 06-15-2024 ambulatory Shira Manning RN NURSE SET UP AND LAY OUT INSPECTOR Comment on above: Information Start: 06-15-2024 End: 06-15-2024 Patient encounter procedure Jelena Lazar APRN.HANGER OFF Work Phone: [facility] [place] Comment on above: Acute gout of right elbow, unspecified cause (Primary Dx) Bacterial pneumonia (Primary Dx); Cellulitis of skin Start: 06-09-2024 End: 06-09-2024 Chart abstracting Adama Mendoza MD Work Phone: [facility] Comment on above: ER Discharge Summary Start: 06-08-2024 End: 06-08-2024 Telephone encounter Adama Mendoza MD Work Phone: [facility] [place] Comment on above: Patient Question Start: 05-12-2024 End: 05-12-2024 Patient encounter procedure Stephany Suarez MD Work Phone: Pulmonary Medicine Comment on above: 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); Asbestosis (HCC); Former smoker Start: 05-12-2024 Telephone encounter Danita huntley PA-C Work Phone: [facility] Comment on above: Results Start: 05-04-2024 Chart abstracting Judith Vanegas MA [facility] Comment on above: Consult ([facility] ) Start: 04-11-2024 End: 04-11-2024 Patient encounter procedure Adama Mendoza MD Work Phone: [facility] Comment on above: Medicare annual [...] Telephone encounter Adama Mendoza MD Work Phone: [facility] Comment on above: Results Start: 04-04-2024 End: 04-04-2024 Patient encounter procedure Dandy Marcell Work Phone: Podiatry Comment on above: Calcaneal spur of le ft foot (Primary Dx); Pain of left heel Start: 03-28-2024 Refill Adama diamond MD Work Phone: [facility] Comment on above: Refill Request Start: 03-04-2024 Telephone encounter Danita huntley PA-C Work Phone: [facility] Comment on above: Results Patient Update Start: 03-04-2024 End: 03-04-2024 Subsequent hospital visit by physician [facility] Work Phone: Radiology Comment on above: Pain of left heel [M 79.672] Start: 03-04-2024 End: 03-04-2024 Patient encounter procedure Danita Meraz PA-C Work Phone: [facility] Comment on above: Pain of left heel (P rimary Dx) Dementia without beh avioral disturbance (HCC) (Primary Dx); NAIN (obstructive sleep apnea); History of CVA (cerebrovascular accident); Altered mental status, unspecified altered mental status type; Abnormal EEG Start: 01-25-2024 Refill Adama diamond MD Work Phone: [facility] Comment on above: Refill Request Start: 01-22-2024 End: 01-22-2024 Patient encounter procedure Jessica Miramontes PA-C Work Phone: Neurology Comment on above: 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) (Primary Dx); Nonspecific abnormal electroencephalogram (EEG); History of CVA (cerebrovascular accident); Seizure (HCC); Altered mental status, unspecified altered mental status type Start: 01-14-2024 Telephone encounter Adama Mendoza MD Work Phone: [facility] Comment on above: Forms Start: 01-06-2024 End: 01-06-2024 Patient encounter procedure Eeg [facility] [place] Work Phone: Neurology Comment on above: Seizure (HCC); Altered mental status, unspecified altered mental status type Start: 01-06-2024 End: 01-06-2024 ambulatory ADAMA MENDOZA Facility:[facility] Start: 12-23-2023 ambulatory ADAMA MENDOZA Facili ty:[facility] Start: 12-23-2023 End: 12-23-2023 Subsequent hospital visit by physician [facility] (1.5t) Radiology Comment on above: Transient cerebral i schemia, unspecified type [G45.9] Start: 12-16-2023 Telephone encounter Stephany Suarez MD Work Phone: Pulmonary Medicine Comment on above: Results (PFT) Start: 12-15-2023 End: 12-15-2023 ambulatory Pulm [facility] Work Phone: [facility] Comment on above: Spirometry Start: 12-15-2023 End: 12-15-2023 Patient encounter procedure Pulm [facility] Work Phone: [facility] Start: 11-20-2023 End: 11-20-2023 Patient encounter procedure Shaye Kitchen MD Work Phone: Neurology Comment on above: Dementia without beh avioral disturbance (HCC) (Primary Dx); NAIN (obstructive sleep apnea); History of CVA (cerebrovascular accident); Altered mental status, unspecified altered mental status type; Transient cerebral ischemia, unspecified type; Seizure (HCC) Start: 11-06-2023 Telephone encounter Adama Mendoza MD Work Phone: [facility] Comment on above: Patient Update; Resu lts Start: 10-31-2023 Refill Adama diamond MD Work Phone: [facility] Comment on above: Refill Request Start: 09-26-2023 End: 09-26-2023 [facility] Start: 09-03-2023 Refill Adama diamond MD Work Phone: [facility] Comment on above: Refill Request Start: 07-14-2023 End: 07-14-2023 Patient encounter procedure Adama Mendoza MD Work Phone: [facility] Comment on above: Bacterial pneumonia (Primary Dx); Need for vaccination Start: 06-29-2023 Telephone encounter Adama Mendoza MD Work Phone: [facility] Comment on above: Results Start: 06-27-2023 End: 06-27-[address] [facility] Work Phone: Start: 06-25-2023 Telephone encounter Adama Mendoza MD Work Phone: [facility] Comment on above: Results Start: 06-23-2023 End: 06-23-2023 [facility] Comment on above: COVID-19 [U07.1] Start: 06-23-2023 End: 06-23-2023 Patient encounter procedure Adama Mendoza MD Work Phone: [facility] Comment on above: COVID-19 (Primary Dx ); Bacterial pneumonia; Urinary incontinence, unspecified type; Altered mental status, unspecified altered mental status type; History of CVA (cerebrovascular accident); Other specified transient cerebral ischemias Start: 06-17-2023 ambulatory Sisi vega RN NURSE SET UP AND LAY OUT INSPECTOR Comment on above: Mental Status Change s Start: 06-17-2023 End: 06-17-2023 Emergency department patient visit [facility] Work Phone: Start: 05-22-2023 Refill Adama diamond MD Work Phone: [facility] Comment on above: Refill Request Start: 05-07-2023 Telephone encounter Adama Mendoza MD Work Phone: [facility] Comment on above: Orders Start: 05-02-2023 Telephone encounter Adama Mendoza MD Work Phone: [facility] Comment on above: Results Start: 04-30-2023 End: 04-30-2023 Patient encounter procedure Jeff Crouch MD Work Phone: [facility] Comment on above: Urinary incontinence , unspecified type (Primary Dx) Start: 04-30-2023 Telephone encounter Adama Mendoza MD Work Phone: [facility] Comment on above: Patient Update Refill Request Start: 04-14-2023 End: 04-14-2023 Patient encounter procedure Adama Mendoza MD Work Phone: [facility] Comment on above: Medicare annual well ness visit, subsequent (Primary Dx); Essential hypertension, benign; Mixed hyperlipidemia; Elevated fasting blood sugar; CAD S/P percutaneous coronary angioplasty; GERD without esophagitis; History of CVA (cerebrovascular accident); Dementia without behavioral disturbance (HCC); NAIN (obstructive sleep apnea) Start: 04-10-2023 Refill Adama diamond MD Work Phone: [facility] Comment on above: Refill Request Start: 04-06-2023 End: 04-06-2023 Patient encounter procedure Danita Meraz PA-C Work Phone: [facility] Comment on above: Fall, initial encoun ter (Primary Dx); Hematoma; Visit for suture removal Start: 02-05-2023 Chart abstracting Adama justin MD Work Phone: [facility] Comment on above: Consult (Cardiology /) Start: 02-02-2023 Refill Adama diamond MD Work Phone: [facility] Comment on above: Refill Request Start: 01-30-2023 Refill Adama diamond MD Work Phone: [facility] Comment on above: Refill Request Start: 01-08-2023 Refill Adama diamond MD Work Phone: [facility] Comment on above: Refill Request Start: 12-30-2022 End: 12-30-2022 ambulatory Pino Chappell PT Work Phone: [facility] Comment on above: Anterior dislocation of right shoulder, subsequent encounter (Primary Dx); 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, subsequent encounter Start: 12-16-2022 End: 12-16-2022 ambulatory Pino Chappell PT Work Phone: [facility] Comment on above: Anterior dislocation of right shoulder, subsequent encounter (Primary Dx); 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, subsequent encounter Start: 11-24-2022 End: 11-24-2022 ambulatory Pino Chappell PT Work Phone: [facility] Comment on above: Anterior dislocation of right shoulder, subsequent encounter (Primary Dx); 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, subsequent encounter Start: 11-20-2022 End: 11-20-2022 ambulatory Pino Chappell PT Work Phone: [facility] Comment on above: Anterior dislocation [...] 11-17-2022 ambulatory Pino Chappell PT Work Phone: [facility] Comment on above: Anterior dislocation of right shoulder, subsequent encounter (Primary Dx); 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, subsequent encounter Start: 11-06-2022 End: 11-06-2022 ambulatory Pino Chappell PT Work Phone: [facility] Comment on above: Anterior dislocation of right shoulder, subsequent encounter (Primary Dx); 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, subsequent encounter Start: 11-04-2022 End: 11-04-2022 ambulatory Pino Keegan PT Work Phone: [facility] Comment on above: Anterior dislocation [...] encounter procedure Adama Mendoza MD Work Phone: [facility] Comment on above: Essential hypertensi on, benign [...] 08-27-2022 Refill Adama diamond MD Work Phone: [facility] Comment on above: Refill Request Start: 08-05-2022 End: 08-05-2022 Nursing evaluation of patient and report Mi Nurse Work Phone: [facility] Comment on above: Need for influenza v accination (Primary Dx) Start: 08-04-2022 End: 08-04-2022 Patient encounter procedure Robert Combs MD Work Phone: Orthopaedics Comment on above: Anterior dislocation of right shoulder, initial encounter (Primary Dx); Traumatic tear of right rotator cuff, unspecified tear extent, initial encounter Start: 07-28-2022 Refill Adama diamond MD Work Phone: [facility] Comment on above: Refill Request Referral Request Patient Question Start: 07-24-2022 End: 07-24-2022 [facility] Start: 07-10-2022 Refill Adama diamond MD Work Phone: [facility] Comment on above: Refill Request Start: 06-12-2022 Refill Adama diamond MD Work Phone: [facility] Comment on above: Refill Request Start: 06-04-2022 Refill Adama diamond MD Work Phone: [facility] Comment on above: Refill Request Start: 04-04-2022 End: 04-04-2022 Patient encounter procedure Eulalia Odonnell MD Work Phone: General Surgery Comment on above: Skin lump of arm, ri ght Start: 04-02-2022 End: 04-02-2022 Patient encounter procedure Danita Meraz PA-C Work Phone: [facility] Comment on above: Skin lump of arm, ri ght (Primary Dx) Start: 03-26-2022 End: 03-26-2022 Patient encounter procedure Adama Mendoza MD Work Phone: [facility] Comment on above: Medicare annual well ness [...] 01-27-2022 Refill Adama diamond MD Work Phone: [facility] Comment on above: Refill Request Start: 01-14-2022 Refill Adama diamond MD Work Phone: [facility] Comment on above: Refill Request Start: 06-19-2021 End: 06-19-2021 Subsequent hospital visit by physician [facility] Work Phone: Radiology Comment on above: Hand pain, right [M7 9.641] Start: 05-18-2021 End: 05-18-2021 Subsequent hospital visit by physician [facility] [place] Work Phone: Radiology Comment on above: Hand injury, right, initial encounter [S69.91XA] Start: 03-06-2021 Patient encounter procedure Je rosanne Mendoza MD Work Phone: [facility] Work Phone: Start: 02-18-2021 End: 02-18-2021 Subsequent hospital visit by physician [facility] [place] Work Phone: Radiology Comment on above: Acute right-sided lo w back pain without sciatica [M54.5] Start: 07-16-2018 [facility] Facility :[facility] Start: 11-16-2017 End: 11-16-2017 [facility] Procedures Date Procedure Procedure Detail Performing Clinician Start: 07-17-2025 Follow-up visit Follow Up ADAMA MENDOZA Start: 01-09-2025 Radex forearm 2 views D yolanda Cardenas SOLID PROPELLANT PROCESSOR.HANGER OFF Work Phone: Start: 10-14-2024 Ecg routine ecg w/le ast 12 lds i&r only Margaret Ardon SOLID PROPELLANT PROCESSOR.HANGER OFF Work Phone: Start: 08-22-2024 US GUIDED SOFT [...] Dr. 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 10/07/2013 Plan of Treatment Date Care Activity Detail Author Start: 04-11-2028 Diabetes Screening Diabetes Screenin g [facility] Start: 04-09-2028 Urine microalbumin profile [facility] Start: 11-13-2027 Diabetes Screening Diabetes Screenin g [facility] Start: 10-18-2027 Diabetes Screening Diabetes Screenin g [facility] Start: 10-15-2027 Diabetes Screening Diabetes Screenin g [facility] Start: 05-10-2027 Diabetes Screening Diabetes Screenin g [facility] Start: 04-08-2027 Diabetes Screening Diabetes Screenin g [facility] Start: 04-04-2027 Diabetes Screening Diabetes Screenin g [facility] Start: 10-08-2026 Diabetes Screening Diabetes Screenin g [facility] Start: 06-23-2026 Diabetes Screening Diabetes Screenty ba [facility] Start: 04-30-2026 DIABETES SCREEN DIABETES SCREEN [facility] Start: 04-30-2026 Diabetes Screening Diabetes Screenty ba [facility] Start: 04-11-2026 Covid-19 Vaccine () Covid-19 Vaccine () [facility] Comment on above: Postponed from 02/13 (Declined at this time) Start: 04-11-2026 Hepatitis B surface antibody level LDL Cholesterol [facility] Start: 04-11-2026 Medicare Annual Wellness Visit Medicare Annual Wellness Visit [facility] Start: 04-02-2026 DIABETES SCREEN DIABETES SCREEN [facility] Start: 11-03-2025 End: 11-03-2025 Patient encounter procedure 11/03/2025 2:00 PM EST Office Visit [facility] [address] [place] [address], [place] [id number] Adama Mendoza MD [address] [place] [id number] [phone] mo f/u [facility] Comment on above: 6 mo f/u Start: 10-09-2025 DIABETES SCREEN DIABETES SCREEN [facility] Start: 09-29-2025 End: 12-29-2025 Basic metabolic 2000 panel - Serum or Plasma BASIC METABOLIC PANEL Lab Routine Essential hypertension, benign Mixed hyperlipidemia Elevated fasting blood sugar Expected: 09/29/2025, Expires: 12/29/2025 [facility] Comment on above: Expected: 09/29/2025 , Expires: 12/29/2025 Start: 09-29-2025 End: 12-29-2025 Hemoglobin A1c in Blood HEMOGLOBIN A1C Lab Routine Elevated fasting blood sugar Expected: 09/29/2025, Expires: 12/29/2025 [facility] Comment on above: Expected: 09/29/2025 , Expires: 12/29/2025 Start: 09-29-2025 End: 12-29-2025 LIPID PANEL, NONFASTING LIPID PANEL, NONFASTING Lab Routine Essential hypertension, benign Mixed hyperlipidemia Expected: 09/29/2025, Expires: 12/29/2025 [facility] Comment on above: Expected: 09/29/2025 , Expires: 12/29/2025 Start: 09-04-2025 End: 09-04-2025 Patient encounter procedure 09/04/2025 2:15 PM EST Office Visit Podiatry [address] [place] [address] Dandy Faith [address] [place] [address] 3 month follow up nail care Podiatry Comment on above: 3 month follow up na [place] care Start: 06-05-2025 Influenza vaccination Influenza Vacc ine (#1) [facility] Start: 06-02-2025 End: 06-02-2025 Patient encounter procedure 06/02/2025 2:00 PM EDT Office Visit Podiatry [address] [place] [address] Dandy aFith [address] [place] [address] 3 month follow up nail care Podiatry Comment on above: 3 month follow up [facility] care Start: 05-10-2025 Hepatitis B surface antibody level LDL Cholesterol [facility] Start: 04-12-2025 End: 07-12-2025 Pyridoxine [Mass/volume] in Serum or Plasma VITAMIN B6/PYRIDOXIN Lab Routine Vitamin B6 deficiency Expected: 04/12/2025, Expires: 07/12/2025 [facility] Work Phone: Comment on above: Expected: 04/12/2025 , Expires: 07/12/2025 Start: 04-12-2025 End: 04-12-2025 Patient encounter procedure 04/12/2025 9:00 AM EDT Office Visit Vasculary Surgery [address] [place] [address] Ingrowing toenail [L60.0] Vasculary Surgery Comment on above: Ingrowing toenail [L 60.0] Start: 04-11-2025 End: 07-11-2025 Cobalamin (Vitamin B12) [Mass/volume] in Serum or Plasma [facility] Work Phone: Comment on above: Expected: 04/11/2025 , Expires: 07/11/2025 Start: 04-11-2025 End: 07-11-2025 Comprehensive metabolic 2000 panel - Serum or Plasma [facility] Comment on above: Expected: 04/11/2025 , Expires: 07/11/2025 Start: 04-11-2025 Covid-19 Vaccine () Covid-19 Vaccine () [facility] Comment on above: Postponed from 11/14 (Declined at this time) Start: 04-11-2025 End: 07-11-2025 Hemoglobin A1c in Blood [facility] Comment on above: Expected: 04/11/2025 , Expires: 07/11/2025 Start: 04-11-2025 End: 07-11-2025 LIPID PANEL, NONFASTING [facility] Comment on above: Expected: 04/11/2025 , Expires: 07/11/2025 Start: 04-11-2025 End: 07-11-2025 Magnesium [Mass/volume] in Serum or Plasma [facility] Comment on above: Expected: 04/11/2025 , Expires: 07/11/2025 Start: 04-11-2025 Medicare Annual Wellness Visit Medicare Annual Wellness Visit [facility] Start: 04-11-2025 End: 04-11-2025 Patient encounter procedure [facility] [place] Comment on above: Medicare Wellness Start: 04-11-2025 End: 07-11-2025 Prostate specific Ag [Mass/volume] in Serum or Plasma [facility] Comment on above: Expected: 04/11/2025 , Expires: 07/11/2025 Start: 04-11-2025 End: 07-11-2025 Pyridoxine [Mass/volume] in Serum or Plasma [facility] Comment on above: Expected: 04/11/2025 , Expires: 07/11/2025 Start: 04-11-2025 RSV Vaccine (1 - 1-d ose 60+ series) RSV Vaccine (1 - 1-dose 60+ series) [facility] Comment on above: Postponed from 03/20 (Insurance Coverage) Start: 04-11-2025 RSV Vaccine (1 - 1-d ose 75+ series) RSV Vaccine (1 - 1-dose 75+ series) [facility] Comment on above: Postponed from 03/20 (Insurance Coverage) Start: 04-11-2025 End: 07-11-2025 Urinalysis complete panel - Urine URINALYSIS, WITH MICROSCOPIC Lab Routine Essential hypertension, benign Mixed hyperlipidemia Expected: 04/11/2025, Expires: 07/11/2025 [facility] Comment on above: Expected: 04/11/2025 , Expires: 07/11/2025 Start: 04-11-2025 End: 07-11-2025 Zinc [Mass/volume] in Serum or Plasma [facility] Comment on above: Expected: 04/11/2025 , Expires: 07/11/2025 Start: 04-04-2025 Hepatitis B surface antibody level LDL Cholesterol [facility] Start: 03-26-2025 DIABETES SCREEN DIABETES SCREEN [facility] Start: 03-04-2025 Annual PCP Team [employer] jackie Disease Visit Annual PCP Team Chronic Disease Visit [facility] Start: 02-24-2025 End: 02-24-2025 Patient encounter procedure Podiatry Comment on above: 3 month follow up na [place] care Start: 02-13-2025 Covid-19 Vaccine () Covid-19 Vaccine () [facility] Start: 12-05-2024 End: 12-05-2024 Patient encounter procedure Neurology Comment on above: Follow up 9 months [place] Dementia, NAIN, Hx of CVA- KYLE 10/14/24 KD, MRI ordered/ done, consult to brain health, pt wasn't taking seroquel per son, reordered seroquel Start: 11-20-2024 BP Controlled (<130/80) BP Controlle d (<130/80) [facility] Start: 11-10-2024 End: 11-10-2024 Patient encounter procedure 11/10/2024 3:20 PM EST Office Visit [facility] [address] [place], [place] [phone] Adama Mendoza MD [address] [place], [place] [phone] 2 week follow up on pneumonia/ulcer [facility] Comment on above: 2 week follow up on pneumonia/ulcer Start: 10-28-2024 End: 10-28-2024 ambulatory 10/28/2024 1:30 PM EST OT/PT/Speech Visit [facility] [address] [place] [address] Pino Chappell, PT [address] [facility] [place] [address] rescheduled from 10/07 [facility] Comment on above: rescheduled from Start: 10-24-2024 End: 10-24-2024 Patient encounter procedure 10/24/2024 1:00 PM EST Office Visit [facility] [address] [place] [address] Adama Mendoza MD [address] [place] [address] discharged from [facility] Comment on above: discharged from [facility] Start: 10-19-2024 End: 10-19-2024 Patient encounter procedure 10/19/2024 3:20 PM EST Appointment Radiology [address] [place] [address] Transient cerebral ischemia, unspecified type [G45.9] Radiology Comment on above: Transient cerebral i schemia, unspecified type [G45.9] Start: 10-17-2024 End: 10-17-2024 Patient encounter procedure 10/17/2024 2:00 PM EST Office Visit [facility] [address] [place] [address] Adama Mendoza MD [address] [place] [address] 6 month follow up [facility] Comment on above: 6 month follow up Start: 10-14-2024 End: 10-14-2024 Patient encounter procedure 10/14/2024 8:30 AM EST Office Visit Neurology [address] [address] Margaret Ardon APRN.HANGER OFF [address] [place] [address] hospital follow up - 60 minutes per KD Neurology Comment on above: hospital follow up - 60 minutes per KD Start: 10-12-2024 Annual PCP Team Breakdown [employer] jackie Disease Visit Annual PCP Team Chronic Disease Visit [facility] Start: 10-12-2024 BP Controlled (<130/80) BP Controlle d (<130/80) [facility] Start: 10-08-2024 Hepatitis B surface antibody level LDL Cholesterol [facility] Start: 10-07-2024 End: 10-07-2024 ambulatory 10/07/2024 1:30 PM EST OT/PT/Speech Visit [facility] [address] [place] [address] Pino Chappell, PT [address] [place], [place] [id number] Left hip pain [M25.552] [facility] Comment on above: Left hip pain [M25.5 52] Start: 10-05-2024 Advance Directive Discussion Advance Directive Discussion [facility] Start: 09-30-2024 End: 12-30-2024 Basic metabolic 2000 panel - Serum or Plasma BASIC METABOLIC PANEL Lab Routine Essential hypertension, benign Elevated fasting blood sugar Stage 3 chronic kidney disease, unspecified whether stage 3a or 3b CKD (HCC) Expected: 09/30/2024, Expires: 12/30/2024 [facility] Comment on above: Expected: 09/30/2024 , Expires: 12/30/2024 Start: 09-30-2024 End: 12-30-2024 Hemoglobin A1c in Blood HEMOGLOBIN A1C Lab Routine Elevated fasting blood sugar Expected: 09/30/2024, Expires: 12/30/2024 [facility] Comment on above: Expected: 09/30/2024 , Expires: 12/30/2024 Start: 09-30-2024 End: 12-30-2024 LIPID PANEL, NONFASTING LIPID PANEL, NONFASTING Lab Routine Essential hypertension, benign Mixed hyperlipidemia CAD S/P percutaneous coronary angioplasty History of CVA (cerebrovascular accident) Expected: 09/30/2024, Expires: 12/30/2024 [facility] Comment on above: Expected: 09/30/2024 , Expires: 12/30/2024 Start: 09-23-2024 End: 09-23-2024 Patient encounter procedure 09/23/2024 7:30 AM EST Office Visit Neurology [address] [address] Margaret Ardon APRN.HANGER OFF [address] [place] [address] follow up (per son [facility])Please read all phone notes from 09/21 Neurology Comment on above: follow up (per son [facility])Please read all phone notes from 09/21 Start: 09-20-2024 End: 12-20-2024 Borrelia burgdorferi IgG and IgM panel - Serum [facility] Work Phone: Comment on above: Expected: 09/20/2024 , Expires: 12/20/2024 Start: 09-20-2024 End: 09-20-2024 Patient encounter procedure 09/20/2024 10:20 AM EST Office Visit [facility] [address] [place], [place] [phone] Adama Mendoza MD [address] [place] [address] left buttock lesion-see phone encounter. [facility] Comment on above: left buttock lesion- see phone encounter. Start: 09-09-2024 DIABETES SCREEN DIABETES SCREEN [facility] Start: 08-22-2024 End: 08-22-2024 Patient encounter procedure 08/22/2024 1:45 PM EST Office Visit General Surgery [address] [place], [place] [phone] Rubén Gonzalez MD [address] [place], [place] [phone] elvira 30 us bx back mass General Surgery Comment on above: elvira 30 us bx back ma ss Start: 08-08-2024 End: 08-08-2024 Patient encounter procedure 08/08/2024 2:15 PM EST Office Visit General Surgery [address] [place] [address] Rubén Gonzalez MD [address] [place] [address] Mass of subcutaneous tissue of back [R22.2] General Surgery Comment on above: Mass of subcutaneous tissue of back [R22.2] Start: 07-27-2024 End: 07-27-2024 Patient encounter procedure 07/27/2024 1:00 PM EDT Appointment Radiology [address] [place] [address] Mass of subcutaneous tissue of back [R22.2] Radiology Comment on above: Mass of subcutaneous tissue of back [R22.2] Start: 07-14-2024 Annual PCP Team Breakdown [employer] jackie Disease Visit Annual PCP Team Chronic Disease Visit [facility] Start: 07-14-2024 BP Controlled (<130/80) BP Controlle d (<130/80) [facility] Start: 06-30-2024 End: 06-30-2024 Patient encounter procedure 06/30/2024 11:40 AM EDT Office Visit [facility] [address] [place] [address] Adama Mendoza MD [address] [facility] [place] [address] 2 days recheck left middle finger- swollen [facility] [place] Comment on above: 2 days recheck left middle finger- swollen Start: 06-23-2024 Annual PCP Team Breakdown [employer] jackie Disease Visit Annual PCP Team Chronic Disease Visit [facility] Start: 06-22-2024 End: 06-22-2024 Patient encounter procedure 06/22/2024 11:20 AM EDT Office Visit [facility] [place] [address] [facility] [place] [address] Jelena Lazar APRN.HANGER OFF [address] [facility] [place] [address] 1 week follow up cellulitis per Dr Mendoza [facility] [place] Comment on above: 1 week follow up rei lulitis per Dr Mendoza Start: 06-15-2024 End: 09-14-2024 Urate [Mass/volume] in Serum or Plasma [facility] Work Phone: Comment on above: Expected: 06/15/2024 , Expires: 09/14/2024 Start: 06-05-2024 Covid-19 Vaccine () Covid-19 Vaccine () [facility] Start: 06-05-2024 Covid-19 Vaccine () Covid-19 Vaccine () [facility] Start: 06-05-2024 Influenza vaccination Influenza Vacc ine (#1) [facility] Start: 05-12-2024 End: 05-12-2024 Patient encounter procedure 05/12/2024 2:15 PM EDT Office Visit Pulmonary Medicine [address] [place] [address] Stephany Suarez MD [address] [place] [address] 3 month f/u Pulmonary Medicine Comment on above: 3 month f/u Start: 05-12-2024 End: 08-11-2024 Basic metabolic 2000 panel - Serum or Plasma BASIC METABOLIC PANEL Lab Routine Stage 3 chronic kidney disease, unspecified whether stage 3a or 3b CKD (HCC) Expected: 05/12/2024, Expires: 08/11/2024 [facility] Work Phone: Comment on above: Expected: 05/12/2024 , Expires: 08/11/2024 Start: 04-30-2024 ANNUAL PCP TEAM [employer] TE[employer] LE[employer] SENIOR DEVELOPER JACKIE DISEASE VISIT ANNUAL PCP TEAM CHRONIC DISEASE VISIT [facility] Start: 04-30-2024 BP CONTROLLED (<130/80) BP CONTROLLE D (<130/80) [facility] Start: 04-14-2024 ANNUAL PCP TEAM [employer] SENIOR DEVELOPER JACKIE DISEASE VISIT ANNUAL PCP TEAM CHRONIC DISEASE VISIT [facility] Start: 04-11-2024 End: 04-11-2024 Patient encounter procedure [facility] Comment on above: Medicare wellness Medicare wellness/ q uestions on any vitamins can be d/c? Start: 04-06-2024 ANNUAL PCP TEAM [employer] LE[employer] SENIOR DEVELOPER JACKIE DISEASE VISIT ANNUAL PCP TEAM CHRONIC DISEASE VISIT [facility] Start: 04-05-2024 End: 07-05-2024 Basic metabolic 2000 panel - Serum or Plasma BASIC METABOLIC PANEL Lab Routine Renal insufficiency Expected: 04/05/2024, Expires: 07/05/2024 [facility] Work Phone: Comment on above: Expected: 04/05/2024 , Expires: 07/05/2024 Start: 04-04-2024 End: 04-04-2024 Patient encounter procedure 04/04/2024 1:45 PM EDT Office Visit Podiatry [address] [place], [place] [phone] Dandy Faith [address] [place], [place] [phone] Pain of left heel [M79.672] Podiatry Comment on above: Pain of left heel [M 79.672] Start: 04-02-2024 Hepatitis B surface antibody level LDL CHOLESTEROL [facility] Start: 03-04-2024 End: 03-04-2024 Patient encounter procedure 03/04/2024 2:00 PM EDT Office Visit Neurology [address] [place], [place] [id number] Shaye Kitchen Jr., MD [address] [address] follow up after testing Neurology Comment on above: follow up after test ing Start: 11-14-2023 Covid-19 Vaccine () Covid-19 Vaccine () [facility] Start: 10-09-2023 ANNUAL PCP TEAM [employer] LE[employer] SENIOR DEVELOPER JACKIE DISEASE VISIT ANNUAL PCP TEAM CHRONIC DISEASE VISIT [facility] Start: 10-09-2023 Hepatitis B surface antibody level LDL CHOLESTEROL [facility] Start: 10-05-2023 Advance Directive Discussion Advance Directive Discussion [facility] Start: 10-02-2023 End: 12-02-2023 Basic metabolic 2000 panel - Serum or Plasma BASIC METABOLIC PNL Lab Routine Essential hypertension, benign Mixed hyperlipidemia Expected: 10/02/2023, Expires: 12/02/2023 [facility] Work Phone: Comment on above: Expected: 10/02/2023 , Expires: 12/02/2023 Start: 10-02-2023 End: 12-02-2023 Hemoglobin A1c in Blood HGB A1C Lab Routine Elevated fasting blood sugar Expected: 10/02/2023, Expires: 12/02/2023 [facility] Work Phone: Comment on above: Expected: 10/02/2023 , Expires: 12/02/2023 Start: 10-02-2023 End: 12-02-2023 LIPID PANEL, NONFASTING LIPID PANEL, NONFASTING Lab Routine Mixed hyperlipidemia Expected: 10/02/2023, Expires: 12/02/2023 [facility] Work Phone: Comment on above: Expected: 10/02/2023 , Expires: 12/02/2023 Start: 09-26-2023 [facility] Start: 06-23-2023 End: 08-23-2023 Bacteria identified in Urine by Culture [facility] Work Phone: Comment on above: Expected: 06/23/2023 , Expires: 08/23/2023 Start: 06-23-2023 End: 08-23-2023 Comprehensive metabolic 2000 panel - Serum or Plasma [facility] Work Phone: Comment on above: Expected: 06/23/2023 , Expires: 08/23/2023 Start: 06-17-2023 End: 06-17-2023 [facility] Start: 06-17-2023 Bacteria identified in Blood by Culture Blood Culture [facility] Start: 06-17-2023 Bacteria identified in Urine by Culture Urine Culture [facility] Start: 06-17-2023 End: 06-17-2023 Blood culture [facility] Start: 06-05-2023 Influenza vaccination [facility] Start: 04-30-2023 End: 06-30-2023 Comprehensive metabolic 2000 panel - Serum or Plasma [facility] Work Phone: Comment on above: Expected: 04/30/2023 , Expires: 06/30/2023 Start: 04-30-2023 End: 06-30-2023 Prostate specific Ag [Mass/volume] in Serum or Plasma [facility] Work Phone: Comment on above: Expected: 04/30/2023 , Expires: 06/30/2023 Start: 04-30-2023 End: 06-30-2023 Urinalysis complete panel - Urine [facility] Work Phone: Comment on above: Expected: 04/30/2023 , Expires: 06/30/2023 Start: 04-02-2023 ANNUAL PCP TEAM [employer] TE[employer] LEAD SENIOR DEVELOPER JACKIE DISEASE VISIT ANNUAL PCP TEAM CHRONIC DISEASE VISIT [facility] Start: 03-27-2023 End: 05-27-2023 CBC W Auto Differential panel - Blood CBC + DIFF Lab Routine Anemia, unspecified type Expected: 03/27/2023, Expires: 05/27/2023 [facility] Work Phone: Comment on above: Expected: 03/27/2023 , Expires: 05/27/2023 Start: 03-27-2023 End: 05-27-2023 Cobalamin (Vitamin B12) [Mass/volume] in Serum or Plasma VITAMIN B12 BLOOD Lab Routine GERD without esophagitis Medication management Expected: 03/27/2023, Expires: 05/27/2023 [facility] Work Phone: Comment on above: Expected: 03/27/2023 , Expires: 05/27/2023 Start: 03-27-2023 End: 05-27-2023 Comprehensive metabolic 2000 panel - Serum or Plasma COMP METABOLIC PANEL Lab Routine Essential hypertension, benign Elevated fasting blood sugar Mixed hyperlipidemia Expected: 03/27/2023, Expires: 05/27/2023 [facility] Work Phone: Comment on above: Expected: 03/27/2023 , Expires: 05/27/2023 Start: 03-27-2023 End: 05-27-2023 Hemoglobin A1c in Blood HGB A1C Lab Routine Elevated fasting blood sugar Expected: 03/27/2023, Expires: 05/27/2023 [facility] Work Phone: Comment on above: Expected: 03/27/2023 , Expires: 05/27/2023 Start: 03-27-2023 End: 05-27-2023 LIPID PANEL, NONFASTING LIPID PANEL, NONFASTING Lab Routine Essential hypertension, benign Mixed hyperlipidemia CAD S/P percutaneous coronary angioplasty Expected: 03/27/2023, Expires: 05/27/2023 [facility] Work Phone: Comment on above: Expected: 03/27/2023 , Expires: 05/27/2023 Start: 03-27-2023 End: 05-27-2023 Magnesium [Mass/volume] in Serum or Plasma MAGNESIUM BLD Lab Routine GERD without esophagitis Medication management Expected: 03/27/2023, Expires: 05/27/2023 [facility] Work Phone: Comment on above: Expected: 03/27/2023 , Expires: 05/27/2023 Start: 03-27-2023 End: 05-27-2023 Urinalysis complete panel - Urine URINALYSIS, WITH MICROSCOPIC Lab Routine Essential hypertension, benign Mixed hyperlipidemia Expected: 03/27/2023, Expires: 05/27/2023 [facility] Work Phone: Comment on above: Expected: 03/27/2023 , Expires: 05/27/2023 Start: 03-26-2023 ANNUAL PCP TEAM [employer] TE[employer] LE[employer] SENIOR DEVELOPER JACKIE DISEASE VISIT ANNUAL PCP TEAM CHRONIC DISEASE VISIT [facility] Start: 03-26-2023 BP CONTROLLED (<130/80) BP CONTROLLE D (<130/80) [facility] Start: 03-26-2023 Hepatitis B surface antibody level LDL CHOLESTEROL [facility] Start: 03-26-2023 Urine microalbumin profile DTAP,TDAP,TD (2 - Tdap) [facility] Comment on above: Postponed from 05/21 (Insurance Coverage) Start: 12-20-2022 COVID-19 VACCINE (5 - Pfizer series) COVID-19 VACCINE (5 - Pfizer series) [facility] Start: 01-01-2023 ADVANCE DIRECTIVE DISCUSSION ADVANCE DIRECTIVE DISCUSSION [facility] Start: 09-09-2022 ANNUAL PCP TEAM [employer] TECHNICAL LEAD SENIOR DEVELOPER JACKIE DISEASE VISIT ANNUAL PCP TEAM CHRONIC DISEASE VISIT [facility] Start: 09-09-2022 Hepatitis B surface antibody level LDL CHOLESTEROL [facility] Start: 06-05-2022 Influenza vaccination INFLUENZA (#1) [facility] Start: 03-06-2022 BP CONTROLLED (<130/80) BP CONTROLLE D (<130/80) [facility] Start: 11-26-2021 COVID-19 VACCINE (4 - Booster for Pfizer series) COVID-19 VACCINE (4 - Booster for Pfizer series) [facility] Start: 10-05-2021 ADVANCE DIRECTIVE DISCUSSION ADVANCE DIRECTIVE DISCUSSION [facility] Start: 09-20-2021 COVID-19 VACCINE (4 - Booster for Pfizer series) COVID-19 VACCINE (4 - Booster for Pfizer series) [facility] Start: 05-21-2019 Urine microalbumin profile DTAP,TDAP,TD (2 - Tdap) [facility] Start: 2018 RSV Vaccine (1 - 1-d ose 75+ series) RSV Vaccine (1 - 1-dose 75+ series) [facility] Start: 2003 RSV Vaccine (1 - 1-d ose 60+ series) RSV Vaccine (1 - 1-dose 60+ series) [facility] Start: 1961 Spirometry Spirometry [facility] ECG COMPLETE ECG COMPLETE ECG Routine Transient cerebral ischemia, unspecified type 10/14/2024 10:31 AM EST [facility] Work Phone: End: 11-20-2024 EPIL EEG ROUTINE EPIL EEG ROUTINE NEUROLOGY Routine Seizure (HCC) Altered mental status, unspecified altered mental status type 1 Occurrences starting 11/20/2023 until 11/20/2024 [facility] Work Phone: Comment on above: 1 Occurrences starti ng 11/20/2023 until 11/20/2024 End: 12-19-2024 MR Brain WO contrast MRI BRAIN WO IVCON Radiology Routine Transient cerebral ischemia, unspecified type 1 Occurrences starting 11/20/2023 until 12/19/2024 [facility] Work Phone: Comment on above: 1 Occurrences starti ng 11/20/2023 until 12/19/2024 End: 11-13-2025 MR Brain WO contrast MRI BRAIN WO IVCON Radiology Routine Transient cerebral ischemia, unspecified type 1 Occurrences starting 10/14/2024 until 11/13/2025 [facility] Work Phone: Comment on above: 1 Occurrences starti ng 10/14/2024 until 11/13/2025 End: 12-19-2024 MRA Head vessels WO contrast MRA BRAIN WO IVCON Radiology Routine Transient cerebral ischemia, unspecified type 1 Occurrences starting 11/20/2023 until 12/19/2024 [facility] Work Phone: Comment on above: 1 Occurrences starti ng 11/20/2023 until 12/19/2024 End: 12-19-2024 MRA Neck vessels WO contrast MRA CAROTID WO IVCON Radiology Routine Transient cerebral ischemia, unspecified type 1 Occurrences starting 11/20/2023 until 12/19/2024 [facility] Work Phone: Comment on above: 1 Occurrences starti ng 11/20/2023 until 12/19/2024 End: 07-22-2024 Mri brain brain stem w/o contrast material MRI BRAIN WO IVCON Radiology STAT Urinary incontinence, unspecified type Altered mental status, unspecified altered mental status type History of CVA (cerebrovascular accident) Other specified transient cerebral ischemias 1 Occurrences starting 06/23/2023 until 07/22/2024 [facility] Work Phone: Comment on above: 1 Occurrences starti ng 06/23/2023 until 07/22/2024 Patient Education [facility] Work Phone: Patient referral [facility] Work Phone: Pyridoxine [Mass/volume] in Serum or Plasma VITAMIN B6/PYRIDOXIN Lab Routine Vitamin B6 deficiency 04/13/2025 2:52 PM EDT [facility] SURGICAL PATHOLOGY SURGICAL PATH OLOGY Lab Routine Mass of subcutaneous tissue of back 08/22/2024 1:31 PM EST [facility] Work Phone: UA DIP, URINE (POC) UA DIP, URIN E (POC) Lab Routine Urinary incontinence, unspecified type Ordered: 04/30/2023 [facility] Work Phone: Comment on above: Ordered: 04/30/2023 End: 08-20-2025 US Chest wall US CHEST WALL/SOFT TISSUE Radiology Routine Mass of subcutaneous tissue of back 1 Occurrences starting 07/21/2024 until 08/20/2025 [facility] Work Phone: Comment on above: 1 Occurrences starti ng 07/21/2024 until 08/20/2025 US Chest wall US CHEST WALL/SO FT TISSUE Radiology Routine Mass of subcutaneous tissue of back 07/27/2024 1:31 PM EDT [facility] Work Phone: End: 07-22-2025 XR Chest PA and Lateral XR CHEST 2V FRONTAL/LAT Radiology STAT Bacterial pneumonia 1 Occurrences starting 06/22/2024 until 07/22/2025 [facility] Work Phone: Comment on above: 1 Occurrences starti ng 06/22/2024 until 07/22/2025 End: 07-28-2025 XR Finger - left AP and Lateral and oblique XR DIGIT GENERAL 3V FRONTAL/LAT/OBL LEFT Radiology Routine Pain of finger of left hand 1 Occurrences starting 06/28/2024 until 07/28/2025 [facility] Work Phone: Comment on above: 1 Occurrences starti ng 06/28/2024 until 07/28/2025 End: 04-03-2025 XR Foot - left AP and Lateral and oblique XR FOOT GENERAL 3V AP/LAT/OBL LEFT Radiology Routine Pain of left heel 1 Occurrences starting 03/04/2024 until 04/03/2025 [facility] Work Phone: Comment on above: 1 Occurrences starti ng 03/04/2024 until 04/03/2025 XR Foot - left AP an d Lateral and oblique XR FOOT GENERAL 3V AP/LAT/OBL LEFT Radiology Routine Pain of left heel 03/04/2024 12:33 PM EDT [facility] End: 10-10-2025 XR Pelvis and Hip - left AP and Lateral frog XR HIP GENERAL 3V PELV/AP/LAT LEFT Radiology Routine Left hip pain 1 Occurrences starting 09/10/2024 until 10/10/2025 [facility] Work Phone: Comment on above: 1 Occurrences starti ng 09/10/2024 until 10/10/2025 XR Pelvis and Hip - left AP and Lateral frog XR HIP GENERAL 3V PELV/AP/LAT LEFT Radiology Routine Left hip pain 09/10/2024 10:08 AM EST [facility] Immunizations Immunization Date Immunization Notes Care Provider Esthela oakes 09-20-2024 influenza, high dose seasonal, preservative-free Adama Mendoza MD Work Phone: [facility] 09-20-2024 influenza virus vacc ine, unspecified formulation Adama Mendoza MD Work Phone: [facility] 08-16-2024 COVID-19 vaccine, ag e 12+ yr (PFIZER-BIONTECH COMIRNAT) Mi Nurse Work Phone: [facility] 07-14-2023 COVID-19 vaccine, ag e 12+ yr, 2022- season (PFIZER-BIONTECH) Adama Mendoza MD Work Phone: [facility] 07-14-2023 influenza (HD-IIV4) vaccine, age 65+ yr, high dose, quadrivalent, PF (FLUZONE HIGH-DOSE) Adama Mendoza MD Work Phone: [facility] 07-14-2023 influenza virus vacc ine, unspecified formulation Dandy Faith Work Phone: [facility] 08-22-2022 COVID-19 booster vaccine, age 12+ yr, bivalent (PFIZER-BIONTECH) Adama Mendoza MD Work Phone: [facility] Work Phone: 08-05-2022 influenza, high-dose , quadrivalent vaccine (FLUZONE HIGH DOSE QUADRIVALENT) Ri Nurse Work Phone: [facility] Work Phone: 08-05-2022 influenza virus vacc ine, unspecified formulation Sisi Ramey RN [facility] 03-26-2022 pneumococcal Conjuga te, unspecified formulation Adama Mendoza MD Work Phone: [facility] Work Phone: 03-26-2022 pneumococcal (PCV20) vaccine, 20 valent (PREVNAR 20) Adama Mendoza MD Work Phone: [facility] 06-21-2021 influenza, high-dose , quadrivalent vaccine (FLUZONE HIGH DOSE QUADRIVALENT) Adama Mendoza MD Work Phone: [facility] Work Phone: 01-09-2021 zoster vaccine recombinant Adama Mendoza MD Work Phone: [facility] 01-08-2021 zoster vaccine recombinant Adama Mendoza MD Work Phone: [facility] 12-19-2020 COVID-19 vaccine, ag e 12+ yr (PFIZER-BIONTECH - PURPLE TOP) Adama Mendoza MD Work Phone: [facility] 11-28-2020 COVID-19 vaccine, ag e 12+ yr (PFIZER-BIONTECH - PURPLE TOP) Adama Mendoza MD Work Phone: [facility] 08-23-2020 zoster vaccine recombinant Adama Mendoza MD Work Phone: [facility] 07-28-2020 influenza, high-dose , quadrivalent vaccine (FLUZONE HIGH DOSE QUADRIVALENT) Adama Mendoza MD Work Phone: [facility] 07-06-2019 influenza, high dose seasonal, preservative-free Adama Mendoza MD Work Phone: [facility] 07-07-2018 influenza, high dose seasonal, preservative-free Adama Mendoza MD Work Phone: [facility] 04-09-2018 tetanus toxoid, redu no diphtheria toxoid, and acellular pertussis vaccine, adsorbed Danita Meraz PA-C Work Phone: [facility] 06-10-2017 influenza, high dose seasonal, preservative-free Adama Mendoza MD Work Phone: [facility] 06-30-2016 influenza, high dose seasonal, preservative-free Adama Mendoza MD Work Phone: [facility] 11-27-2015 pneumococcal conjuga te vaccine, 13 valent Adama Mendoza MD Work Phone: [facility] 06-23-2014 influenza, high dose seasonal, preservative-free Adama Mendoza MD Work Phone: [facility] 06-23-2014 pneumococcal polysaccharide vaccine, 23 valent Adama Mendoza MD Work Phone: [facility] 09-05-2013 Influenza virus vaccine [facility] 09-05-2013 influenza, seasonal, injectable, preservative free Adama Mendoza MD Work Phone: [facility] 08-13-2013 influenza virus vacc ine, unspecified formulation Adama Mendoza MD Work Phone: [facility] 07-27-2012 influenza virus vacc ine, unspecified formulation Adama Mendoza MD Work Phone: [facility] 09-24-2011 influenza virus vacc ine, unspecified formulation Adama Mendoza MD Work Phone: [facility] 08-22-2010 influenza virus vacc ine, unspecified formulation Adama Mendoza MD Work Phone: [facility] 09-18-2009 novel influenza-H1N1 -09, preservative-free, injectable Adama Mendoza MD Work Phone: [facility] 07-04-2009 influenza virus vacc ine, unspecified formulation Adama Mendoza MD Work Phone: [facility] Work Phone: 05-21-2009 diphtheria and tetan us toxoids, adsorbed for pediatric use Adama Mendoza MD Work Phone: [facility] Work Phone: 08-17-2008 influenza virus vacc ine, unspecified formulation Adama Mendoza MD Work Phone: [facility] Work Phone: 03-05-2008 pneumococcal polysaccharide vaccine, 23 valent Danita Meraz PA-C Work Phone: [facility] 03-05-2008 Pneumococcal Vaccine [facility] Work Phone: 03-05-2008 pneumococcal vaccine , unspecified formulation [facility] 08-09-2007 influenza virus vacc ine, unspecified formulation Adama Mendoza MD Work Phone: [facility] Work Phone: 07-13-2007 zoster vaccine, live Adama Mendoza MD Work Phone: [facility] Work Phone: 08-20-2006 influenza virus vacc ine, unspecified formulation Adama Mendoza MD Work Phone: [facility] Work Phone: 05-12-2006 pneumococcal polysaccharide vaccine, 23 valent Adama Mendoza MD Work Phone: [facility] Work Phone: 06-18-1998 tetanus and diphther ia toxoids, adsorbed, preservative free, for adult use (2 Lf of tetanus toxoid and 2 Lf of diphtheria toxoid) Adama Mendoza MD Work Phone: [facility] Work Phone: Payers Date Payer Category Payer Self-pay [id number] 2021 Miscellaneous or Other THIRD PAR TY LIABILITY Member Subscriber Plan / Payer (Effective 2021-Present) Name: Lory Johnson Relation to Subscriber: Self Name: Lory Johnson Payer ID: Not on file Group ID: Not on file Type: Other [id number] Address: [address] [address] [place] [address] [id number] 2021 Unknown THIRD LIBERTARIAN LIAB ILITY THIRD LIBERTARIAN LIABILITY [id number] 2021-Present [phone] [id number] [address] [address] [place] [address] Other [id number] 2019 Private Health Insurance [facility] CHOICE PLUS [id number] 2019-Present [phone] [address] [place] [address] HMO [id number] 2019 Private Health Insurance [id number] 2019 Private Health Insurance [id number] 2008 Medicare MEDICARE MEDICAR E A AND B [id number] 2008-Present [phone] [place] [address] Medicare [id number] 2008 Medicare [id number] 2008 Medicare [id number] Medicare [id number] Unknown ANTHEM [id number] Unknown [id number] Unknown [id number] Social History Date Type Detail Facility Start: 02-01-2015 End: 06-15-2024 Tobacco smoking status NHIS Ex-smoker [facility] Start: 10-05-1953 End: 10-05-1978 History of tobacco use Current smoker [facility] Start: 10-05-1953 End: 10-05-1978 History of tobacco use Cigarette Smoker [facility] Start: 09-09-2021 End: 06-02-2025 Alcohol intake Current non-drinker of alcohol (finding) [facility] Start: 08-21-2009 End: 04-06-2023 Tobacco Comment quit 1978 [facility] Start: 1945 Sex Assigned At Not on file [facility] Start: 01-19-2021 End: 08-04-2022 Exposure to SARS-CoV-2 (event) Not sure [facility] Start: 02-01-2015 End: 02-18-2023 Cigarettes smoked current (pack per day) - Reported 2.5 [facility] Work Phone: Start: 02-01-2015 End: 06-15-2024 Tobacco use and exposure Smokeless tobacco non-user [facility] Work Phone: Start: 07-24-2022 End: 09-26-2023 Tobacco smoking status [facility] Unknown if ever smoked [facility] Start: 02-11-2018 None [facility] Start: 03-03-2020 Spouse/ Signif icant Other [facility] Start: 02-13-2018 Cigarettes [facility] Start: 1945 Sex Assigned At Male W [facility] Start: 02-18-2023 End: 04-14-2023 Tobacco use panel [facility] Work Phone: Start: 09-05-2012 Adult Depression Screening Assessment 0 [facility] Work Phone: How often to you hav e a drink containing alcohol? Never [facility] Has the [employer], Sp[employer], [employer], or water company threatened to shut off services in your home in past 12Mo No [facility] (I/We) worried stacey er (my/our) food would run out before (I/we) got money to buy more. Never true [facility] Start: 09-21-2024 Tobacco smoking stat us RIIS Smokes tobacco daily (finding) [facility] Functional Status Date Assessment Result Facility 04-11-2025 Total score [AUDIT-C] 0 04/11/20 2:00 PM Ramon Bartlett MA [facility] 10-20-2024 Are you deaf, or do you have serious difficulty hearing No 10/20/2024 2:59 PM Arin Do RN No [facility] 10-20-2024 Are you blind, or do you have serious difficulty seeing, even when wearing glasses No 10/20/2024 2:59 PM Arin Do RN No [facility] 10-20-2024 Do you have serious difficulty walking or climbing stairs Yes 10/20/2024 2:59 PM Arin Do RN Yes [facility] 10-20-2024 Do you have difficul ty dressing or bathing Yes 10/20/2024 2:59 PM Arin Do, VAN Yes [facility] 10-20-2024 Because of a physica l, mental, or emotional condition, do you have difficulty doing errands alone such as visiting a physician's office or shopping Yes 10/20/2024 2:59 PM Arin Do, VAN Yes [facility] Mental Status Date Assessment Result Facility 10-20-2024 Because of a physica l, mental, or emotional condition, do you have serious difficulty concentrating, remembering, or making decisions Yes 10/20/2024 2:59 PM Arin Do, VAN Yes [facility] 09-26-2023 Cognitive function Voice/Name [facility] Work Phone: 06-17-2023 Cognitive function Awake;Follows Commands [facility] Work Phone: 07-24-2022 Cognitive function Awake;Alert;A ppropriate; Follows Commands [facility] Work Phone: Clinical Notes 10-07-2013 to 07-17-2025 Note Date & Type Note Facility 07-17-2025 Note [facility] 06-26-2025 Note HNO ID: [id number] Author: RAMON VALLE MA Service: ? Author Type: [employer]usement [employer] Manager Type: Progress Notes Filed: 06/26/2025 12:11 Note Text: Scan on 06/23/2025 2:36 PM by Provider, Brandie PAMarielenaC: [facility] 06-23-2025 Progress note [facility] 06-23-2025 Progress note Note Date/Time June 23, 2025 2:18pm [facility] [address] [place], [place] [address] OFFICE VISIT Date of Service: 06/23/25 MR#: [id number] Acct: [id number] Name: NARA JOHNSON Rep #: [id number] : 1945 Provider: Dr. Nabila Morton MD Age/Sex: 80/M Location: [facility] Status: Signed HPI HPI History of [...] demonstrated distally occluded right coronary artery with medf-tr-laemr collaterals, left anterior descending artery with 50% [...] Intake Visit Reasons: 1 y fu w [employer] per [employer] Required: No Accompanied by: Significant Other Is patient in pain?: No Allergies atorvastatin (From Lipitor) Allergy (Verified 06/23/25 14:02) PT UNSURE OF REACTION azithromycin (From Zithromax) Allergy (Verified 06/23/25 14:02) Itching Beta-Blockers (Beta-Adrenergic Bloc Allergy (Verified 06/23/25 14:02) NEEDS FOLLOW-UP sildenafil (From Viagra) Allergy (Verified 06/23/25 14:02) PT UNSURE OF REACTION Njtxckx-NIP-SrJ Reductase Inhibitor (Nbhkkml-Vnw-Bgo Reductase Inhibitor) Allergy (Verified 06/23/25 14:02) Other [...] aortic aneurysm (AAA) Atherosclerotic heart disease of [place] coronary artery without angina pectoris Ischemic cerebrovascular [...] mid to distal right coronary artery with jvvk-wg-clawy collaterals and moderate disease noted in the [...] coronary artery stent placement: Status: Resolved Comment: ZMZ-DDB-Qyn-Distal RCA w/ 2.25 x 28 mm Promus [...] applicable) CC: Dr. Adama Mendoza MD ~ [facility] Work Phone: [phone] 727-802609-08-2025 Telephone encounter Note* Telephone Encounter - Adama Mendoza MD - 06/12/2025 9:15 PM EDT The following approved medication requests have been transmitted electronically. Requested Prescriptions Signed Prescriptions Disp Refills melatonin 3 mg tablet 180 tablet 3 Sig: Take 2 tablets by mouth daily at bedtime. Authorizing Provider: ADAMA MENDOZA MD [facility]09-08-2025 Miscellaneous Notes* Telephone Encounter - Adama Mendoza [...] asking for PCP to fill. Nisa Puga [facility] June 12, 2025 11:23 AM documented in this [facility] [place] Telephone encounter Note * Telephone Encounter - [...] asking for PCP to fill. Nisa Puga [facility] June 12, 2025 11:23 AM [facility]08-29-2025 [facility] History of Present illness Narrative* Dandy [...] varicosities noted. Non-Invasive Vascular Laboratory [facility] Lower Extremity Arterial Physiology Study Bilateral/Complete Date [...] Left small vessel disease. Technologist: Margaret Amos [facility] Ordering physician: DANDY FAITH Interpreting physician: Deepak [...] months. Dandy Faith DPM documented in [facility]08-[facility]25 History of Present illness Narrative* Ayesha [...] 01, 2025 12:39 PM documented in this encounter[facility] [place] Telephone encounter Note * Telephone Encounter - Jeremías Villegas LPN - 05/22/2025 5:53 PM EDT 90 day rx with 1 refill [facility]. Spoke /c pt and notified of the same. [facility]08-18-2025 Miscellaneous Notes* Telephone Encounter - Jeremías Villegas LPN - 05/22/2025 5:53 PM EDT 90 day rx with 1 refill was sent to [facility] on 05/16/25. Spoke /c pt [...] Thank you. Yolie Sarmiento. documented in this encounter[facility] [place] Telephone encounter Note * Telephone Encounter - [...] 11/03/2025 Please advise. Thank you. Yolie Sarmiento. [facility]08-12-2025 Telephone encounter Note* Telephone Encounter - Dedra [...] Ayala MA May 16, 2025 10:57 AM [facility]08-12-2025 Miscellaneous Notes* Telephone Encounter - Dedra Ayala [...] 1 tablet by mouth once daily. Dedra Aylaa MA May 16, 2025 10:57 AM * [...] 16, 2025 10:31 AM documented in this encounter[facility] [place] Telephone encounter Note * Telephone Encounter - [...] Jaci Salazar May 16, 2025 10:31 AM [facility]07-17-2025 Telephone encounter Note* Telephone Encounter - Ramon Valle MA - 04/20/2025 9:32 AM EDT Call to pt's and notified her of message below, she verbalized understanding. She did ask if okay to still take B12 vitamin. Discussed with PCP, who stated yes, notified her of this. Ramon Valle MA [facility]07-17-2025 Miscellaneous Notes* Telephone Encounter - Ramon Valle [...] back on this vit. documented in this encounter[facility] [place] Telephone encounter Note * Telephone Encounter - Adama Mendoza MD - 04/19/2025 10:25 PM EDT Let know Tom's Vit B6 is fine. He does not need to go back on this vit. [facility]07-10-2025 Telephone encounter Note* Telephone Encounter - Dedra Ayala MA - 04/13/2025 10:10 AM EDT Message left for Refugio to call back. Dedra Ayala MA [facility]07-10-2025 Miscellaneous Notes* Telephone Encounter - Dedra Ayala [...] less fat in diet. documented in [facility] encounter[facility] [place] Telephone encounter Note * Telephone Encounter - [...] good. Work on less fat in diet. [facility]07-09-2025 Telephone encounter Note* Telephone Encounter - Adama Mendoza MD - 04/12/2025 4:48 PM EDT The following approved medication requests have been transmitted electronically. Requested Prescriptions Signed Prescriptions Disp Refills aspirin, enteric coated (ECOTRIN LOW STRENGTH) 81 mg EC tablet 90 tablet 3 Sig: Take 1 tablet by mouth once daily. Authorizing Provider: ADAMA MENDOZA MD [facility]07-09-2025 Miscellaneous Notes* Telephone Encounter - Adama Mendoza [...] 12, 2025 1:02 PM documented in this encounterSelect [facility] [place] Telephone encounter Note * Telephone Encounter - [...] Gi Santamaria April 12, 2025 1:02 PM [facility] [place]07-08-2025 NoteOhio[facility]07-08-2025 History of Present illness Narrative* Adama [...] kidney disease) stage 3, GFR 30-59 ml/min ([facility]) 04/11/2024 Dementia without behavioral disturbance ([facility]) 05/15/2016 MMSE: 22 05/2016, MMSE: 06/2019, 23 Elevated fasting blood sugar 12/01/2018 Emphysema lung ([facility]) 10/23/2023 Essential hypertension, benign 05/12/2006 Ex-smoker 10/31/2016 [...] DPA: Refugio () Malignant neoplasm of prostate ([facility]) 03/01/200802/09 PATH: Left Lobe: GS 7 ( [...] which included preparing to see the patient, [id number] patient care, completing clinical documentation, performing a medically appropriate examination, counseling and educating the patient/family/caregiver and ordering medications, tests, or procedures. Recording using True Fit software for draft documentation of the visit was discussed with the patient/authorized registered representative; all questions welcomed and answered. Patient/authorized registered representative agreed to proceed SENSITIVE EXAMINATION CONSENT: The sensitive examination was discussed with the Patient or Patient's Authorized Software Test Specialist. Asapplicable, any other physician, advance practice provider, medical student, or other health professional student that will be observing or involved in the sensitive examination for educational or training purposes was discussed with the Patient or Authorized Software Test Specialist. The Patient or Authorized Software Test Specialist has agreed to proceed with the sensitive examination. documented in this encounterSelect [facility] [place] Telephone encounter Note * Telephone Encounter - Nancy Tillman LPN - 03/29/2025 4:12 PM EDT Prescriber sent RX to [facility] in [place]. Nancy Tillman LPN [facility] [place]06-25-2025 Miscellaneous Notes* Telephone Encounter - Nancy Tillman LPN - 03/29/2025 4:12 PM EDT Prescriber sent RX to [facility] in [place]. Nancy Tillman LPN * Telephone Encounter - [...] 29, 2025 1:16 PM documented in this encounterSelect [facility] [place]-2025 Telephone encounter Note * Telephone Encounter - Hilda Bravo LPN - 03/29/2025 1:25 PM EDT Forwarded to Neurology as Dr. Fidelina park to prescribe. [facility] [place]-25-2025 Telephone encounter Note* Telephone Encounter - Gi [...] Gi Santamaria March 29, 2025 1:16 PM [facility] [place]06-12-2025 Telephone encounter Note* Telephone Encounter - Salinas [...] himself on his own. Salinas Hernandez RN [facility] [place]06-12-2025 Miscellaneous Notes* Telephone Encounter - Salinas Hernandez [...] this test is necessary. documented in this encounterSelect Medical [facility] [place]06-12-2025 Telephone encounter Note * Telephone Encounter - Claude Cardenas APRN.CNP - 03/16/2025 2:33 PM EDT Please let patient know th BACH test is an additional tool we use to evaluate cognitive impairment.We would encourage patient to complete testing but it is optional. [facility] [place]25 Telephone encounter Note* Telephone Encounter - Chavez Plata LPN - 03/16/2025 1:50 PM EDT Please see message below. Chavez Plata LPN [facility] [place]06-12-2025 Telephone encounter Note* Telephone Encounter - Licha Vázquez PSS - 03/16/2025 1:24 PM EDT Patient's called regarding a message her has received to take a Brief Assessment of Cognitive Health (BACH) test. Spouse is confused because they are no longer following with Neurology, so she is wondering if this test is necessary. [facility] [place]-11-2025 Telephone encounter Note* Telephone Encounter - [place] Nisa Salazar - 03/15/2025 11:13 AM EDT [...] Nisa Salazar March 15, 2025 11:14 AM [facility] [place]-11-2025 Miscellaneous Notes* Telephone Encounter - [place] Nisa Salazar - 03/15/2025 11:13 AM EDT [...] 15, 2025 11:14 AM documented in this encounterSelect Medical [facility] [place]05-23-2025 NoteOhio[facility]05-23-2025 NoteOhio[facility]04-22-2025 Telephone encounter Note* Telephone Encounter - [...] 04/11/2025 Please advise. Thank you. Yolie Sarmiento. [facility] [place]04-22-2025 Miscellaneous Notes* Telephone Encounter - Yolie Sarmiento [...] Thank you. Yolie Sarmiento. documented in this encounterSelect Medical [facility] [place]04-14-2025 Telephone encounter Note * Telephone Encounter - Adama Mendoza MD - 01/16/2025 5:25 PM EDT The following approved medication requests have been transmitted electronically. Requested Prescriptions Signed Prescriptions Disp Refills metoprolol succinate ER (TOPROL XL) 25 mg 24 hr tablet 270 tablet 1 Sig: Take 3 tablets by mouth once daily. Authorizing Provider: ADAMA MENDOZA MD [facility] [place]04-14-2025 Miscellaneous Notes* Telephone Encounter - Adama Mendoza [...] 16, 2025 2:00 PM documented in this encounterSelect Medical [facility] [place]04-14-2025 Telephone encounter Note * Telephone Encounter - [...] Plata LPN January 16, 2025 2:08 PM [facility] [place]04-14-2025 Telephone encounter Note* Telephone Encounter - Brianna [...] Brianna Salazar January 16, 2025 2:00 PM [facility] [place] Work Phone: [phone] Telephone encounter Note* Telephone Encounter - Lia To MA - 01/09/2025 1:46 PM EDT Spoke with son jeff(chart states okay to speak with) son notified and verbalized understanding. Son states he will give message to pt Lia To MA [facility] [place]04-07-2025 Miscellaneous Notes* Telephone Encounter - Lia To MA - 01/09/2025 1:46 PM EDT Spoke with son gloryprduence(chart states okay to speak with) son notified [...] should follow upin office. documented in this encounterSelect Medical [facility] [place]04-07-2025 Telephone encounter Note * Telephone Encounter - Claude Cardenas APRN.CNP - 01/09/2025 10:10 AM EDT Please let patient know his xrays are negative. He likely sprained his wrist and pain is likely from the impact of the fall. If patient continues to have pain after 2-4 weeks patient should follow upin office. [facility] [place]-07-2025 History of Present illness Narrative* Jana Tejeda [...] PATIENT PRESENTS WITH AN IMPLANTABLE OR ATTACHED [employer] SALES SUPERVISOR: No RADIOLOGY DEPARTMENT: General X-ray: Exam(s) Completed: Pelvis X-Ray: Pelvis with Hip Right Upper Extremity X-Ray(s): Shoulder, AP / TRUE AP / AXILLARY right , Forearm, right , and Wrist, right PERIPHERAL IV DATA: Not applicable SIGNED BY: RT Hector(R) January 09, 2025 8:58 AM documented in this encounterSelect Medical [facility] [place]04-07-2025 NoteOhio[facility]04-07-2025 NoteOhio[facility]04-07-2025 History of Present illness Narrative* Claude [...] 11/03/2013 Abdominal aortic aneurysm (AAA) without rupture ([facility]) 11/08/2016 US: 11/2016 2.6 x 2.4 x [...] kidney disease) stage 3, GFR 30-59 ml/min ([facility]) 04/11/2024 Dementia without behavioral disturbance ([facility]) 05/15/2016 MMSE: 22 05/2016, MMSE: 06/2019, 23 Elevated fasting blood sugar 12/01/2018 Emphysema lung ([facility]) 10/23/2023 Essential hypertension, benign 05/12/2006 Ex-smoker 10/31/2016 [...] HIP GENERAL 3V PELV/AP/LAT RIGHT Claude Cardenas APRN.HANGER OFF documented in this encounterSelect Medical [facility] [place]03-26-2025 Telephone encounter Note * Telephone Encounter - Adama Mendoza MD - 12/28/2024 12:31 PM EDT The following approved medication requests have been transmitted electronically. Requested Prescriptions Signed Prescriptions Disp Refills pantoprazole DR (PROTONIX) 40 mg tablet 90 tablet 1 Sig: Take 1 tablet by mouth daily before breakfast. Take on empty stomach, 1/2 hr before meal. Authorizing Provider: ADAMA MENDOZA MD [facility] [place]03-26-2025 Miscellaneous Notes* Telephone Encounter - Adama Mendoza [...] Thank you. Yolie Sarmiento. documented in this encounterSelect Medical [facility], [place]03-26-2025 Telephone encounter Note * Telephone Encounter - [...] Vanegas MA December 28, 2024 9:26 AM [facility] [place]03-26-2025 Telephone encounter Note* Telephone Encounter - Yolie [...] 04/11/2025 Please advise. Thank you. Yolie Sarmiento. [facility] [place]03-17-2025 Telephone encounter Note* Telephone Encounter - Dedra Ayala MA - 12/19/2024 11:46 AM EDT Melatonin filled by Dr. Fidelina Merida. This was refilled to [facility] on 12/05/24 #180 pills with 1 refill. Dedra Ayala MA [facility] [place]03-17-2025 Miscellaneous Notes* Telephone Encounter - Dedra Ayala MA - 12/19/2024 11:46 AM EDT Melatonin filled by Dr. Fidelina Merida. This was refilled to [facility] [place] on 12/05/24 #180 pills with 1 refill. [...] 19, 2024 11:09 AM documented in this encounterSelect Medical [facility], [place]03-17-2025 Telephone encounter Note * Telephone Encounter - [...] Laila Crawley December 19, 2024 11:09 AM [facility] [place]03-12-2025 Telephone encounter Note* Telephone Encounter - Zhanna [...] Carreno LPN December 14, 2024 9:06 AM [facility] [place]03-12-2025 Miscellaneous Notes* Telephone Encounter - Zhanna Carreno [...] 14, 2024 9:06 AM documented in this encounterSelect Medical [facility], [place]03-03-2025 Telephone encounter Note * Telephone Encounter - Adama Mendoza MD - 12/05/2024 5:05 PM EST The following approved medication requests have been transmitted electronically. Requested Prescriptions Signed Prescriptions Disp Refills nitroglycerin sublingual (NITROSTAT) 0.4 mg SL tablet 25 tablet 1 Sig: Dissolve 1 tablet under the tongue every 5 minutes as needed for chest pain. Authorizing Provider: ADAMA MENDOZA MD [facility] [place]03-03-2025 Miscellaneous Notes* Telephone Encounter - Adama Mendoza [...] 05, 2024 4:17 PM documented in this encounterSelect [facility], [place]03-03-2025 Telephone encounter Note * Telephone Encounter - Salinas Hernandez RN - 12/05/2024 4:22 PM EST Pts called in and wanted to let provider know that Pt stopped taking the Trazodone on 10/20/24.She wanted provider to update Pts medication list. [facility] [place]03-03-2025 Miscellaneous Notes* Telephone Encounter - Salinas Hernandez RN - 12/05/2024 4:22 PM EST Pts called in and wanted to let provider know that Pt stopped taking the Trazodone on 10/20/24.She wanted provider to update Pts medication list. documented in this encounterSelect Medical [facility], [place]03-03-2025 Telephone encounter Note * Telephone Encounter - [...] Hernandez RN December 05, 2024 4:17 PM [facility] [place]03-03-2025 NoteOhio[facility]03-03-2025 History of Present illness Narrative* Shaye [...] above in HPI. Pt was evaluated at [facility] at which time son reports CT [...] to restart PAP. Pt was seen by [facility] during interim. 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 G30.1, F02.B2 Moderate [...] one -- and had to go the [place] ER. Per notes of inpatient services: Reason [...] 11/03/2013 Abdominal aortic aneurysm (AAA) without rupture ([facility]) 11/08/2016 US: 11/2016 2.6 x 2.4 x [...] kidney disease) stage 3, GFR 30-59 ml/min ([facility]) 04/11/2024 Dementia without behavioral disturbance ([facility]) 05/15/2016 MMSE: 22 05/2016, MMSE: 06/2019, 23 Elevated fasting blood sugar 12/01/2018 Emphysema lung ([facility]) 10/23/2023 Essential hypertension, benign 05/12/2006 Ex-smoker 10/31/2016 [...] DPA: Refugio () Malignant neoplasm of prostate ([facility]) 03/01/200802/09 PATH: Left Lobe: GS 7 ( [...] 10/31/2022 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 * Deann Suarez LPN - 12/05/2024 1:42 PM EST documented in this encounterSelect Medical [facility], [place]03-03-2025 NoteHNO ID: [id number] Author: DEANN SUAREZ LPN Service: ? 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) ([facility]) 10/11/2024 Previous Surgical History PAST SURGICAL HISTORY [...] PROPIONATE 50 MCG/ACTUATION NASAL SPRAY,SUSPENSION Claude Cardenas APRN.HANGER OFF documented in this encounterSelect [facility] [place]02-21-2025 NoteOhio[facility]02-21-2025 History of Present illness Narrative* Dandy [...] Objective: [facility] DP and PT pulses are [...] discoloration Katt Olivares LPN documented in this encounterSelect Medical [facility] [place]02-21-2025 NoteOhio[facility]02-19-2025 NoteOhio[facility]02-19-2025 History of Present illness Narrative* Danita [...] ml/min (HCC) 04/11/2024 Dementia without behavioral disturbance ([facility]) 05/15/2016 MMSE: 22 05/2016, MMSE: 06/2019, 23 [...] 10/31/2022 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 Danita Meraz PA-C documented in this encounterSelect Medical [facility] [place]02-14-2025 NoteOhio[facility]02-14-2025 History of Present illness Narrative* Perla [...] 18, 2024 5:38 PM documented in this encounterSelect Medical [facility], [place]02-13-2025 Telephone encounter Note * Telephone Encounter - [...] To MA November 17, 2024 3:09 PM [facility] [place]02-13-2025 Miscellaneous Notes* Telephone Encounter - Lia To [...] 17, 2024 3:09 PM documented in this encounterSelect Medical [facility], [place]02-10-2025 NoteOhio[facility]02-10-2025 History of Present illness Narrative* Brianna Doe RN - 11/14/2024 10:10 AM EST ED Follow-Up Note Provider Action / FYI: None Call completed by: RN Patient seen in ED: In Network ED Contact made with Patient: Yes The patient was identified by Name and Date of . Centrifugal Spinner call note: Spoke with son Tim who [...] seen in the Emergency Department (ED) Location: [place] Date: 11/13/24 Reason for ED Visit: Chest [...] provided with appropriate counseling: Yes Based on ice cream server, the following disposition is advised: No symptoms or symptoms present, not severe. Routed to: No Action Needed SAMIA Education Provided this Outreach: No Brianna Doe RN November 14, 2024 10:11 AM documented in this encounterSelect Medical [facility] [place]02-09-2025 NoteOhio[facility]02-09-2025 History of Present illness Narrative* Ayan [...] PATIENT PRESENTS WITH AN IMPLANTABLE OR ATTACHED [employer] SALES SUPERVISOR: No RADIOLOGY DEPARTMENT: General X-ray: Exam(s) Completed: Chest X-Ray Abdomen X-Ray: Abdomen PERIPHERAL IV DATA: Not applicable SIGNED BY: RT Camejo Tech November 13, 2024 11:42 AM documented in this encounterSelect Medical [facility] [place]02-06-2025 NoteOhio[facility]02-06-2025 History of Present illness Narrative* Adama Mendoza MD - 11/10/2024 3:14 PM EST Chief Complaint Patient presents with: Pneumonia: Follow up HPI Lory Johnson is a 79 year old male who presents here today for Above Complaints.. Patient was seen on 10/24/2024 for /u [facility] for encephalopathy due to acute pneumonia. He [...] 11/03/2013 Abdominal aortic aneurysm (AAA) without rupture ([facility]) 11/08/2016 US: 11/2016 2.6 x 2.4 x [...] kidney disease) stage 3, GFR 30-59 ml/min ([facility]) 04/11/2024 Dementia without behavioral disturbance ([facility]) 05/15/2016 MMSE: 22 05/2016, MMSE: 06/2019, 23 Elevated fasting blood sugar 12/01/2018 Emphysema lung ([facility]) 10/23/2023 Essential hypertension, benign 05/12/2006 Ex-smoker 10/31/2016 [...] cores External Beam Radiotherapy -- Dr. Rishabh Yoa, Renetta Landry follow Mixed hyperlipidemia 12/03/2002 Muscle [...] wellness. Adama Mendoza MD documented in this encounterSelect Medical [facility], [place]02-03-2025 NoteOhio[facility]02-03-2025 History of Present illness Narrative* Adama Mendoza MD - 11/07/2024 4:11 PM EST Patient's home health 485 form / care plan for certification period 10/22/2024 to 12/20/2024 reviewedand signed. Relevant medical records were reviewed. No changes were indicated documented in this encounterSelect Medical [facility], [place]01-30-2025 Telephone encounter Note * Telephone Encounter - Danita Meraz PA-C - 11/03/2024 2:40 PM EST The following approved medication requests have been transmitted electronically. Requested Prescriptions Signed Prescriptions Disp Refills solifenacin (VESICARE) 5 mg tablet 90 tablet 1 Sig: Take 1 tablet by mouth once daily. Authorizing Provider: DANITA MERAZ PA-C [facility] [place]01-30-2025 Miscellaneous Notes* Telephone Encounter - Danita Meraz [...] Next office visit: 11/10/2024 Brianna Doe RN Cent[employer] Nurse documented in this encounter[address]30-2025 Telephone encounter Note * Telephone Encounter [...] Next office visit: 11/10/2024 Brianna Doe RN Cent[employer] Nurse [facility] [place]01-30-2025 NoteOhio[facility]01-30-2025 History of Present illness Narrative* Brianna [...] attention at this time Patient discharged from [facility] Discharge date: 10/20/2024 Admitted for: [...] 03, 2024 2:26 PM documented in this encounterSelect Medical [facility], [place]01-29-2025 Telephone encounter Note * Telephone Encounter - Adama Mendoza MD - 11/02/2024 3:20 PM EST Noted. [facility] [place]01-29-2025 Miscellaneous Notes* Telephone Encounter - Adama Mendoza [...] son's request. Parrish Wilson PT/Asst Rehab Mgr [phone] documented in this encounterSelect Medical [facility], [place]01-23-2025 Telephone encounter Note * Telephone Encounter - [...] son's request. Parrish Wilson PT/Asst Rehab Mgr [phone] [facility] [place] Work Phone: 1([phone]) 478-983501-23-2025 History of Present illness Narrative* Pino Chappell, PT - 10/27/2024 2:20 PM EST Program_ID:[id number] Access Code: [email or web address] URL: [email or web address] Date: 10-27-2024 Prepared By: Pino Chappell Program [...] Goals for Episode of Care: established 10/27/24 [place] in home exercise program. - Met Patient Goals: Get some exercises Time Frame for Goals and Treatment : 12/08/24 Planned Interventions, Frequency, and Duration: Current Frequency: Discontinue Therapy Services Duration: 1 visit Total Number of Visits Planned: 0 Planned Treatment Interventions: Therapeutic exercise (79583) PLAN FOR NEXT VISIT: NA due to [...] 1436 Pino Chappell PT documented in this encounterSelect Medical [facility], [place]01-23-2025 [facility]01-23-2025 NoteOhio[facility]01-23-2025 History of Present illness Narrative* Brianna [...] attention at this time Patient discharged from [facility] Discharge date: 10/20/2024 Admitted for: [...] 27, 2024 12:14 PM documented in this encounterSelect Medical [facility], [place]01-23-2025 Telephone encounter Note * Telephone Encounter - Dedra Chamorro - 10/27/2024 10:42 AM EST There has been a delay in service for Home Care PT, OT Evaluation for this patient due to schedule conflict. Patient was notified on 10/27/24. Thank you for this referral, please contact us with any questions. Dedra Chamorro [facility] [place]01-23-2025 Miscellaneous Notes* Telephone Encounter - Dedra Chamroro - 10/27/2024 10:42 AM EST There has been a delay in service for Home Care PT, OT Evaluation for this patient due to schedule conflict. Patient was notified on 10/27/24. Thank you for this referral, please contact us with any questions. Dedra Chamorro documented in this encounterSelect Medical [facility] [place]01-22-2025 Telephone encounter Note * Telephone Encounter - [...] Thank you in advance for your time! [facility] Work Phone: [phone] Miscellaneous Notes* Telephone Encounter - Gail Reddy [...] advance for your time! documented in this encounterSelect Medical [facility] [place]01-22-2025 Miscellaneous Notes* Telephone Encounter - Gail Reddy [...] advance for your time! documented in this encounterSelect Medical [facility], [place]01-22-2025 Telephone encounter Note * Telephone Encounter - Gail Reddy RN - 10/26/2024 9:49 PM EST [address] [address] Dr. Mendoza. saw patient for routine home care visits. There are new severe drug interactions noted between solifenacin and potassium chloride ER. Pt. Is on potassium until 10/30. Is itokay for patient to continue taking both of these medications? Thank you in advance for your time! [facility] Work Phone: [phone] Miscellaneous Notes* [facility] Routine - Gail Reddy RN - 10/25/2024 4:52 PM EST SITUATION: Penitentiary routine visit completed today. son also present [...] specific): Care plan education documented in this encounterSelect Medical [facility], [place] Patient's home Note* SN Routine - Gail Reddy RN - 10/25/2024 4:52 PM EST SITUATION: Penitentiary routine visit completed today. son also present [...] focus on (be specific): Care plan education [facility] [place] Work Phone: [phone] History of Present illness Narrative* Adama Mendoza [...] disorder (wandering behavior)., Patient was admitted to [facility] 10/15/2024 and discharged on 10/20/2024. 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 2. 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 3. Dementia with behavioral disturbance ([facility]) - ICD9: 294.21, ICD10: F03.918 - as [...] Decubitus ulcer of left buttock, stage 2 ([facility]) - ICD9: 707.05, 707.22, ICD10: L89.322 - [...] which included preparing to see the patient, ajrv-nd-yskn patient care, completing clinical documentation, performing a medically appropriate examination, counseling and educating the patient/family/caregiver and ordering medications, tests, or procedures. Adama Mendoza MD The sensitive examination was discussed with the Patient or Patient's Authorized Software Test Specialist. Asapplicable, any other physician, advance practice provider, medical student, or other health professional student that will be observing or involved in the sensitive examination for educational or training purposes was discussed with the Patient or Authorized Software Test Specialist. The Patient or Authorized Software Test Specialist has agreed to proceed with the sensitive examination. (Sensitive examination includes inspection and/or palpation of the breasts, pelvis, prostate and anorectal regions) documented in this encounterSelect [facility] [place] NoteOhio[facility]-17-2025 NoteOhio[facility] Hospital01-17-2025 History of Present illness Narrative* Clemencia Population Health NavigatorKeisha - 10/21/2024 10:22 AM EST POPULATION HEALTH NAVIGATION OUTREACH Action/FYI Spoke to patients airam aguilar, scheduled TCM follow up with pcp on 10-24-24 discharged from [facility] Discharge date: 10/20/2024 Admitted for: [...] 10/22/2024 in HOME CARE with [facility]ARE, [place] [address] CM Key [id number] 10/20 Dietary zinc deficiency 10/23/2024 in HOME CARE with [facility] CARE, [place] [address] PTE 10/23-10/2710/24/2024 in HOME CARE with HOME CARE, [place] [address] OTE 10/23-10/2710/24/2024 in [facility] with ADAMA MENDOZA - discharged from [facility], Discharge date: 10/20/2024, Admitted for: Altered Mental Status/respiratory infection treated with antibiotcs, Readmission Risk: 29% - High Risk 10/28/2024 in PT [facility] with PINO CHAPPELL - rescheduled from 10/07, Left hip pain [M25.552] 12/05/2024 in NEUR ADULT [facility] with SHAYE KITCHEN JR - Follow up 9 months memory Navigation Signature: Keisha Khanna [facility] Navigator October 21, 2024 10:22 AM * Brianna Doe RN - 10/21/2024 9:53 [...] should be made to airam Aguilar at [phone] [facility] Referral Source of Stratification: [facility] Admission Status: Discharged Readmission Risk Score: 29%-high risk Patient meets program referral criteria: No Patient does not qualify for High Risk TCM Home Visit program due to: Readmission Risk Score does not meet criteria Disposition: Patient does not qualify [facility], will provide TCM outreach follow-up for 30-days Patient Source: In-Network Discharge Initial outreach: TCM discharge report Outreach Summary: Main contact number is for Refugio, who is currently hospitalized herself Call should be made to airam Aguilar at [phone] Jeff reports that patient is doing well [...] attention at this time Patient discharged from [facility] Discharge date: 10/20/2024 Admitted for: Altered Mental Status/respiratory infection treated with antibiotcs Readmission Risk: 29% - High Risk Value-Based Contract: ACO Contact: Contact made with patient: Yes Hi, my name is Brianna Doe RN and I am calling from the [facility] [place] on behalf of your Primary Care Provider, [...] you? Yes Name of Home Care Agency: [facility] [place] Phone number, if available: [phone] Start of Home Care services date: 10/22/2024 [...] I will send your request to a art preparator who will contact and assist you with that appointment. This will give you an opportunity to ask any questions or address any concerns youmay have with your PCP. Inform the patient that if they have any questions or concerns prior to that appointment, to call their PCP's office right away. Appointment Action: Patient desires an appointment. Complete Navigation Team box and route to [facility] ([phone]) for scheduling. Education Patient and family educated [...] 21, 2024 9:59 AM documented in this encounterSelect Medical [facility] [place]-17-2025 NoteOhio[facility] Berger Hospital01-16-2025 Telephone encounter Note* Telephone Encounter - Adama Mendoza MD - 10/20/2024 2:12 PM EST yes [facility] [place]01-16-2025 Miscellaneous Notes* Telephone Encounter - Adama Mendoza MD - 10/20/2024 2:12 PM EST yes * Telephone Encounter - Rosalina Knutson LPN - 10/20/2024 1:23 PM EST Adama Mendoza MD Please advise if you are agreeable to signing and following for [facility] services? Our Clinicians will be sending the Plan of Care to you for review and approval. They will reach out for any appropriate orders required to provide home care services for the patient. We are not able to initiate C services without a following provider. Home care clinicians may also obtain orders from [facility] [place] Virtualist Providers Thank you and we would be happy to answer any questions. Rosalina Knutson LPN 10/20/2024 1:23 PM documented in this encounterSelect Medical [facility] [place]-2025 Telephone encounter Note * Telephone Encounter - Rosalina Knutson LPN - 10/20/2024 1:23 PM EST Adama Mendoza MD Please advise if you are agreeable to signing and following for [facility] services? Our Clinicians will be sending the Plan of Care to you for review and approval. They will reach out for any appropriate orders required to provide home care services for the patient. We are not able to initiate HHC services without a following provider. Home care clinicians may also obtain orders from [facility] [place] Virtualist Providers Thank you and we would be happy to answer any questions. Rosalina Knutson LPN 10/20/2024 1:23 PM [facility] [place] Work Phone: [phone] Telephone encounter Note* Telephone Encounter - Rosalina Knutson LPN - 10/20/2024 1:20 PM EST Date/Time: 10/20/2024 1:20 PM Spoke with son Tim @ phone #: [phone] - Preferred # for contact: [phone] Have you received help from a home care company in the last 60 days? No Are you agreeable to [facility] services? yes What address will we be seeing you at? [address] [place] [address] Do you have any upcoming appointments or things we need to schedule around? 11/01 Do you have a teachable CG or can you manage your care independently? Yes Who? Spouse Have you received the flu shot? Yes If so, when and where? 09/20/24 [facility] [place] Work Phone: [phone] Miscellaneous Notes* Telephone Encounter - Rosalina Knutson LPN - 10/20/2024 1:20 PM EST Date/Time: 10/20/2024 1:20 PM Spoke with airam Dumont @ phone #: [phone] - Preferred # for contact: [phone] Have you received help from a home care company in the last 60 days? No Are you agreeable to [facility] services? yes What [address] will we be seeing you [facility]? [address] [facility] [place] [address] Do you have any upcoming appointments or things we need to schedule around? 11/01 Do you have a teachable CG or can you manage your care independently? Yes Who? Spouse Have you received the flu shot? Yes If so, when and where? 09/20/24 documented in this encounterSelect Medical Cleveland [facility], [place]-15-2025 NoteHNO ID: [id number] Author: SOTO VALDERRAMA MD Service: Hospital Medicine Author Type: Physician Type: Progress Notes Filed: 10/20/2024 05:01 Note Text: DEPARTMENT OF HOSPITAL MEDICINE PROGRESS NOTE SERVICE DATE: 10/19/2024 SERVICE TIME: 1:25 PM Hospital Medicine/Primary Attending: Soto Valderrama MD NIGHT AND WEEKEND COVERAGE: [facility] COVERAGE: Nights: [phone], please page [facility] Centerist Night coverage pager [phone]. Probable discharge: 10/20 Disposition: Home health care Consultants: Antonia Beltre for psychiatry (patient follows at [facility] [place] [facility]) PROCEDURES: NONE CODE STATUS: Full code ASSESSMENT/PLAN [...] (obstructive sleep apnea) Overview: MENG Schilling phone [phone] fax [phone]. Essential hypertension, benign Overview: Goal<150/90 Presence of stent in coronary artery in patient with coronary artery disease Zinc deficiency Overactive bladder CKD (chronic kidney disease) stage 3, GFR 30-59 ml/min ([facility]) Alzheimer dementia with behavioral disturbance (HCC) Neurocognitive [...] Ref Range Status / (more content not included)...[facility] [id number] CgzrWZFN-LUL-5 (AGENT OF COVID-19) RNA: Not detected INFLUENZA A RNA: Not detected INFLUENZA B RNA: Not detected RESPIRATORY SYNCYTIAL VIRUS (RSV) RNA: Not detectedSanbornville HospitalComment on above:Performed By: #### [id number] ####[facility] LABORATORYCLIA [id number] [place] [address] [facility]01-15-2025 NoteHNO ID: [id number] Author: GISEL SMILEY DO Service: Hospital Medicine Author Type: Physician Type: Progress Notes Filed: 10/19/2024 00:15 Note Text: Nursing notified me of new productive cough and coarse breath sounds. Patient seen at bedside. Is noted to be coughing while being evaluated. No Respiratory distress. No hypoxia. Bronchial breath sounds noted. Will get COVID/FLU/RSV and CXR. Gisel Smiley DO October 19, 2024 12:15 AMUniversity Hospitals Portage Medical [id number] NoteHNO ID: [id number] Author: SOTO VALDERRAMA MD Service: Hospital Medicine Author Type: Physician Type: Progress Notes Filed: 10/19/2024 10:01 Note Text: Addendum:Metabolic encephalopathy from dehydration which exacerbated his baseline dementia. Soto Valderrama MD October 19, 2024 10:01 AM DEPARTMENT OF HOSPITAL MEDICINE PROGRESS NOTE SERVICE DATE: 10/18/2024 SERVICE TIME: 7:45 AM Hospital Medicine/Primary Attending: Soto Valderrama MD NIGHT AND WEEKEND COVERAGE: [facility] COVERAGE: Nights: [phone], please page [facility] Hospitalist Night coverage pager [phone]. Probable discharge: 10/20 Disposition: Home health care Consultants: Practitioner Glanc for psychiatry ([facility] at [facility]) PROCEDURES: NONE CODE STATUS: Full code ASSESSMENT/PLAN [...] seeing Neuro NAIN (obstructive sleep apnea) Overview: [facility] EdouardAirgalo phone [phone] fax [phone]. Essential hypertension, benign Overview: Goal<150/90 Presence of [...] mIU/L Final HOSPITAL C (more content not included)...[facility] [id number] NoteHNO ID: [id number] Author: SOTO VALDERRAMA MD Service: Hospital Medicine Author Type: Physician Type: Progress Notes Filed: 10/18/2024 05:40 Note Text: DEPARTMENT OF HOSPITAL MEDICINE PROGRESS NOTE SERVICE DATE: 10/17/2024 SERVICE TIME: 5:32 PM Hospital Medicine/Primary Attending: Soto Valderrama MD NIGHT AND WEEKEND COVERAGE: [facility] COVERAGE: Nights: [phone], please page [facility] Centerist Night coverage pager [phone]. Probable discharge: 10/20 Disposition: To be determined Consultants: Practitioner Patt for psychiatry ([facility] follows at [facility] [place] [facility]) PROCEDURES: NONE CODE STATUS: Full code ASSESSMENT/PLAN [...] (obstructive sleep apnea) Overview: MENG Schilling phone [phone] fax [phone]. Cough Essential hypertension, benign Overview: Goal<150/90 Overactive [...] BP Readings: Date: BP: (more content not included)...[facility] [id number] NoteHNO ID: [id number] Author: SAUL SIFUENTES MD Service: Hospital Medicine Author Type: Physician Type: Progress Notes Filed: 10/16/2024 23:01 Note Text: Per Neuro considerations, patient was administered 1/2 dose seroquel and melatonin held given oversedation. He pulled his hughes at 8pm, and we will continue to monitor with bladder scans. Unfortunately, his mental status continued to worsen with progressive agitation, delirium. 2mg IV haldol ordered. [facility] [id number] NoteHNO ID: [id number] Author: GONZALEZ TOBAR LSW Service: Care Management Author Type: Peeled Potato Inspector Type: Care Mgt Initial Assessment Filed: 10/16/2024 12:57 Note Text: CARE MANAGEMENT: ASSESSMENT AND DISCHARGE PLAN SERVICE DATE: October 16, 2024 SERVICE TIME: 12:48 PM PCP: Adama Mendoza MD Primary Contact: Extended Emergency Contact Information Primary Emergency Contact: Refugio Johnson Address: [address] [place] [address] OF [place] Mobile Relation: Spouse Secondary Emergency Contact: tim johnson Mobile Relation: Son Admission Status: Inpatient Insurance Provider: MEDICARE A AND B Discharge Planning requested by: Per Department Practice Potential Transition Plans Home Advance Directives Current Advance Directive: Health Care Power of Systems Architecture Analyst;Living Will In Chart: Yes Up To Date [...] Be able to go home, General wellness [place] of [place] Explained: [place] of [place] Given: No Reason Not Given: [...] while the patient's spouse is currently at [facility] for rehab. CM assigned will continue to follow for discharge needs. SIGNATURE: BARBRA Rosenbaum PATIENT NAME: Lory Johnson DATE: October 16, 2024 TIME: 12:48 PMUniversity Hospitals Portage Medical CenterIjygyjhr45-47-1320 NoteHNO ID: [id number] Author: SOTO VALDERRAMA MD Service: Hospital Medicine Author Type: Physician Type: Progress Notes Filed: 10/16/2024 20:03 Note Text: DEPARTMENT OF HOSPITAL MEDICINE PROGRESS NOTE SERVICE DATE: 10/16/2024 SERVICE TIME: 7:46 AM Hospital Medicine/Primary Attending: Soto Valderrama MD NIGHT AND WEEKEND COVERAGE: [facility] COVERAGE: Nights: [phone], please page [facility] Centerist Night coverage pager [phone]. Probable discharge: 10/20 Disposition: To be determined Consultants: Practitioner Glanc for psychiatry (patient follows at the [facility]) PROCEDURES: NONE CODE STATUS: Full code ASSESSMENT/PLAN [...] (obstructive sleep apnea) Overview: MENG Schilling phone [phone] fax [phone]. Cough Essential hypertension, benign Overview: Goal<150/90 Overactive [...] 5.4 09/09/2021 5.8 02/18 (more content not included)...[facility] [id number] BvemABZR-NUZ-8 (AGENT OF COVID-19) RNA: Not detected INFLUENZA A RNA: Not detected INFLUENZA B RNA: Not detected RESPIRATORY SYNCYTIAL VIRUS (RSV) RNA: Not detectedUniversity Hospitals Portage Medical CenterComment on above:Performed By: #### [id number] ####ELWE[facility] LABORATORYCLIA [id number] [place] [address] [place] [id number] NoteOhiohealth Berger Hospital01-11-2025 History of Present illness Narrative* Bibiana [...] PATIENT PRESENTS WITH AN IMPLANTABLE OR ATTACHED MALT LIQUORS SALES SUPERVISOR: No RADIOLOGY DEPARTMENT: CT; Exam(s) Completed: Brain PERIPHERAL IV DATA: Not applicable SIGNED BY: Darling Minor October 15, 2024 10:26 AM documented in this encounterSelect Medical [facility], [place]01-10-2025 Instructions* Patient Instructions* Gaudencio Allen DO - [...] you need to reschedule this please call [phone]. If you need to reach our office for any reason prior to your next visit, please contact us through Yowza or call [phone]. Ways to keep your brain healthy: Follow [...] fish and fish high in mercury (swordfish, Czech sea dwyer, orange roughy, ahi tuna, albacore [...] resources are: The Alzheimer's Association (web site: alz.org/[place]) available 24 hours a day, 7 days per week. Contact: Local: ; Toll free: [phone] Family Caregiver [place] (web site: Caregiver.org) MAIRA Marsh-- a secure online solution for quality information, support, and resources for family caregivers. Contact: Toll-free number: 200.887.6835 Alzheimers.gov - Find Alzheimer disease and related dementias information, resources, research and more. documented in this encounterSelect Medical Cleveland Clinic [facility], [place]01-10-2025 NoteOhiohealth Berger Hospital01-10-2025 History of Present illness Narrative* Gaudencio Allen DO - 10/14/2024 1:03 PM EST Images from the original note were not included. Chief Complaint: Behavioral changes and dementia I had the pleasure of seeing this 79 year old year old [facility] at [facility]. The patient is referred by Margaret Ardon [address] [place] [id number] Patient is accompanied by and information obtained [...] keep him at home and he has gravity prospecting operator helper to come by several times per [...] Activities of Daily Living [place] in Activities of Daily Living (A.D.L.) Bathing: [...] Elevated fasting blood sugar 12/01/2018 Emphysema lung ([facility]) 10/23/2023 Essential hypertension, benign 05/12/2006 Ex-smoker 10/31/2016 [...] DPA: Refugio () Malignant neoplasm of prostate ([facility]) 03/01/200802/09 PATH: Left Lobe: GS 7 ( [...] cuff 10/31/2022 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: TITUS Transcribe Date/Time: Dec 23 2023 8:12A [...] is not thought to be the main experienced truck driver of his symptoms. G30.1, F02.B2 Moderate [...] which included preparing to see the patient, wsvg-dw-ucyu patient care, performing a medically appropriate examination, completing clinical documentation, and on counseling/ eductaing the patient and the family. Gaudencio Allen DO * Chino Finney MA - 10/14/2024 12:15 PM EST Lory Johnson is a 79 year old year old right handed man Accompanied by: patient and son. Referral by: Margaret Ardon [address] [facility] [address] Education: High School Diploma, 12 years Employment Status: Retired Title of Last Job (What did pt do?) pt unsure What would you like to accomplish with this visit today? Pt here to get a test of cognitive ability. Unsure of what he'll like to get out of appt. Pt thinks son is experienced truck driver but is having moments where he do remember that the experienced truck driver is also his son. Vital Signs: There were no vitals taken for this visit. documented in this encounterSelect Medical Cleveland [facility] [place]01-10-2025 NoteOhiohealth Berger Hospital01-10-2025 History of Present illness Narrative* Keegan Villegas RN - 10/14/2024 10:42 AM EST Images from the original note were not included. [facility] [place] Department of Cardiovascular Medicine OUTPATIENT VISIT TYPE NURSE VISIT PATIENT NAME: Lory Johnson DATE OF SERVICE: 10/14/2024 PRIMARY CEMENT SACK BREAKER: MARKO Guevaratico Johnson is a 79 year old established patient who presents today for a nurse visit per Dr. Ardon for an EKG Patient taking medication as prescribed: not asked Took medication today: no asked VISIT VITAL SIGNS: There were no vitals taken for this visit. Physician/ELIZ notification and treatment plan: No abnormal findings. Nursing Plan: Patient education: master printer for final review Patient instructed to call and update the office if there are any changes in current condition. Patient verbalizes understanding of the plan: Yes. Patient's questions were addressed during the visit today: Yes Keegan Villegas RN October 14, 2024 10:42 AM documented in this encounterSelect Medical Cleveland [facility] [place]01-10-2025 NoteOhiohealth Berger Hospital01-10-2025 History of Present illness Narrative* Margaret Ardon APRN.HANGER OFF - 10/14/2024 8:30 AM EST Images from the original note were not included. [facility] [place] [facility] [place] Follow-up Visit Follow-up note October 14, 2024 [...] and got him and took him to [facility]. Hospital could not keep him and [...] he speaks out at appointments. Feels pt's [facility] memory is decent. Short term memory is [...] Words, up to 2 trials: Face, Velvet, Baptism, Catarina, Red (no points) 0/5 first try, [...] 1 error) (0/1) Serial subtraction by 7: [id number] (3 points for correct 4 or 5; 2 points for 2 or 3 correct; 1 point for 1 correct) [id number]--[id number] (0/3) Language: repeat: I only know that [...] (0/2) Delayed recall: recall words: face, velvet, rastafari, catarina, red (0-5) (0/5) Orientation: date(1), month(1), [...] kidney disease) stage 3, GFR 30-59 ml/min ([facility]) 04/11/2024 Dementia without behavioral disturbance ([facility]) 05/15/2016 MMSE: 22 05/2016, MMSE: 06/2019, 23 Elevated fasting blood sugar 12/01/2018 Emphysema lung ([facility]) 10/23/2023 Essential hypertension, benign 05/12/2006 Ex-smoker 10/31/2016 [...] DPA: Refugio () Malignant neoplasm of prostate ([facility]) 03/01/200802/09 PATH: Left Lobe: GS 7 ( [...] above in HPI. Pt was evaluated at [facility] at which time son reports CT [...] other treatments. Discussed a consult to [facility] and he would like to proceed with [...] 10/14/24 MRI BRAIN WO IVCON CONSULT TO [facility] ECG COMPLETE Margaret Ardon APRN.RACHELLE I spent a total of 87 minutes on the date of the service which included preparing to see the patient, znjr-aw-hnmi patient care, completing clinical documentation, obtaining and/or reviewing separately obtained history, performing a medically appropriate examination, counseling and educating the pat ient/family/caregiver, and ordering medications, tests, or procedures. documented in this encounterSelect Medical Cleveland [facility] [place]01-10-2025 NoteOhio[facility] Instructions* Patient Instructions* Adama Mendoza MD [...] him see wound center. documented in this encounterSelect [facility] [place] History of Present illness Narrative* Adama Mendoza [...] - difficulty walking Patient was seen in [facility] 09/21/2024 Patient was seen in our [...] which included preparing to see the patient, [id number] patient care, completing clinical documentation, performing a medically appropriate examination, counseling and educating the patient/family/caregiver and ordering medications, tests, or procedures. documented in this encounterSelect Medical [facility] [place]01-07-2025 NoteOhio[facility] Berger Hospital12-19-2024 Telephone encounter Note* Telephone Encounter - Palma Padron - 09/22/2024 4:16 PM EST Patient is rescheduled for 10/14/2024 at 8:30 AM Palma Padron [facility] [place]12-19-2024 Miscellaneous Notes* Telephone Encounter - Palma Padron [...] (60 minute) time slot. documented in this encounterSelect Medical [facility], [place]12-19-2024 Telephone encounter Note * Telephone Encounter - Marilyn Ferro RN - 09/22/2024 3:45 PM EST Received message from Margaret Ardon APRN.CNP regarding appointment scheduled for 7:30 AM tomorrow. Patient will need to be rescheduled in a NEW patient (60 minute) time slot. [facility] [place]12-19-2024 Telephone encounter Note* Telephone Encounter - Zhanna Carreno LPN - 09/22/2024 10:49 AM EST Patient son tim returned call to schedule appt for his father with Dr Kitchen. Went over notes below and assisted with transfer to art preparator to get appt set up in [place] as son requested. [facility] [place]12-19-2024 Miscellaneous Notes* Telephone Encounter - Zhanna Carreno LPN - 09/22/2024 10:49 AM EST Patient son tim returned call to schedule appt for his father with Dr Kitchen. Went over notes below and assisted with transfer to art preparator to get appt set up in [place] [...] offer appointment with MQ or KD in [place] offices. No answer, left VM to return call. MARRY Tamez * Telephone Encounter - Judith Vanegas MA - 09/21/2024 1:13 PM EST ER report taken to Dr. Kitchen's office given to nursing staff for review. Judith Vanegas MA * Telephone Encounter - Shaye Kitchen Jr., MD - 09/21/2024 1:07 PM EST Clearly a significant decline. Please confirm that [facility] ER performed basic labs and UA to evaluate for infectious or metabolic process exacerbating condition or if head imaging performed. The hours ofevents do not clearly correlate with sundowning. If he is not getting better should be reevaluated in ER as sundowning should resolve over time during 24 hours - not persist. Please schedule for follow up with Neur ELIZ in [place] or [facility] to get better understanding of changes. [...] and got him and took him to [facility]. Hospital could not keep him and family was told this is sundowners related to Alzheimer's. Pt was released this am at 5 and then he did know his son. They are not sure what to do here. Is here a process to evaluate him for in home care or get him into a facility. Pt does not have a production clerk and they want him evaluated to have record that he needs care and try get insurance to cover instead of having private care/pay. Please advise daughter if there is any help for this. precast worker at [facility] told them to call pcp. They could not do anything because pt is not a pt there. Please advise daughter. Chirsti Roberts LPN documented in this encounterSelect Medical Cleveland [facility] [place]12-19-2024 Telephone encounter Note * Telephone Encounter - Kelin Winters RN - 09/22/2024 9:24 AM EST Daughter returns call and messages reviewed. Ailyn to have her brother call back to schedule an appointment as he will be the one bringing patient. Kelin Winters RN [facility] [place]12-19-2024 Telephone encounter Note* Telephone Encounter - Kelin Winters RN - 09/22/2024 9:14 AM EST Daughter returns call and message below reviewed with verbalized understanding. Kelin Winters RN [facility] [place]12-19-2024 Miscellaneous Notes* Telephone Encounter - Kelin Winters [...] disease test was negative. documented in this encounterSelect Medical [facility], [place]12-19-2024 Telephone encounter Note * Telephone Encounter - Birgit Holt OCCA - 09/22/2024 9:09 AM EST TC to patients daughter to offer appointment with MQ or KD in [place] offices. No answer, left VM to return call. MARRY Tamez [facility]12-18-2024 Telephone encounter Note* Telephone Encounter - Zhanna Carreno LPN - 09/21/2024 3:01 PM EST Phoned patient left message to return call and ask to speak to a nurse. [facility]12-18-2024 Telephone encounter Note* Telephone Encounter - Danita Meraz PA-C - 09/21/2024 2:17 PM EST Lyme disease test was negative. [facility]12-18-2024 Telephone encounter Note* Telephone Encounter - Judith Vanegas MA - 09/21/2024 1:13 PM EST ER report taken to Dr. Kitchen's office given to nursing staff for review. Judith Vanegas MA [facility]12-18-2024 Telephone encounter Note* Telephone Encounter - Shaye Kitchen Jr., MD - 09/21/2024 1:07 PM EST Clearly a significant decline. Please confirm that [facility] ER performed basic labs and UA to evaluate for infectious or metabolic process exacerbating condition or if head imaging performed. The hours ofevents do not clearly correlate with sundowning. If he is not getting better should be reevaluated in ER as sundowning should resolve over time during 24 hours - not persist. Please schedule for follow up with Neur ELIZ in [place] or [facility] to get better understanding of changes. He might need Seroquel if appropriate but would like him seen first by one of us. Thank you, Shaye Kitchen MD [facility]12-18-2024 Telephone encounter Note* Telephone Encounter - Adama [...] manage and needs a STAT geropsychiatry eval. [facility]12-18-2024 Telephone encounter Note* Telephone Encounter - Christi [...] and got him and took him to [facility]. Hospital could not keep him and family was told this is sundowners related to Alzheimer's. Pt was released this am at 5 and then he did know his son. They are not sure what to do here. Is here a process to evaluate him for in home care or get him into a facility. Pt does not have a production clerk and they want him evaluated to have record that he needs care and try get insurance to cover instead of having private care/pay. Please advise daughter if there is any help for this. precast worker at [facility] told them to call pcp. They could not do anything because pt is not a pt there. Please advise daughter. Christi Roberts LPN [facility] [place]12-17-2024 Telephone encounter Note* Telephone Encounter - Chavez Plata LPN - 09/20/2024 1:16 PM EST Message routed to Dr Kithcen to refill Aricept. Pravastatin has been refilled. Chavez Plata LPN [facility] [place]12-17-2024 Miscellaneous Notes* Telephone Encounter - Chavez Plata [...] by mouth daily at bedtime. Jaci Roberts [facility] September 16, 2024 10:58 AM documented in this encounterSelect Medical [facility] [place]12-17-2024 History of Present illness Narrative* Adama Mendoza [...] known fevers or chills. 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 Past [...] kidney disease) stage 3, GFR 30-59 ml/min ([facility]) 04/11/2024 Dementia without behavioral disturbance ([facility]) 05/15/2016 MMSE: 22 05/2016, MMSE: 06/2019, 23 Elevated fasting blood sugar 12/01/2018 Emphysema lung ([facility]) 10/23/2023 Essential hypertension, benign 05/12/2006 Ex-smoker 10/31/2016 [...] DPA: Refugio () Malignant neoplasm of prostate ([facility]) 03/01/200802/09 PATH: Left Lobe: GS 7 ( [...] improving. Adama Mendoza MD documented in this encounterSelect Medical [facility] [place]12-17-2024 NoteOhiohealth Berger Hospital12-17-2024 Telephone encounter Note* Telephone Encounter - Chavez Plata LPN - 09/20/2024 9:05 AM EST Attempted again to contact pt's . No answer left vm to call office back. Tried home number but it was not a working number. Chavez Plata LPN [facility] [place]12-16-2024 Telephone encounter Note* Telephone Encounter - Mayi Goyal RN - 09/19/2024 12:44 PM EST Pt's Refugio is currently in [facility] and diagnosed with pneumococcal meningitis. Daughter [...] is any need for any further vaccines. [facility] [place]12-16-2024 Miscellaneous Notes* Telephone Encounter - Mayi Goyal RN - 09/19/2024 12:44 PM EST Pt's Refugio is currently in [facility] and diagnosed with pneumococcal meningitis. Mikel [...] for any further vaccines. documented in this encounterSelect Medical [facility] [place]12-14-2024 Telephone encounter Note * Telephone Encounter - [...] Alvarez LPN September 17, 2024 10:58 AM [facility] [place]12-14-2024 Miscellaneous Notes* Telephone Encounter - Gricelda Alvarez [...] 17, 2024 10:58 AM documented in this encounterSelect Medical [facility] [place]12-13-2024 Telephone encounter Note * Telephone Encounter - Chavez Plata LPN - 09/16/2024 2:29 PM EST Left message for pt's to contact office. Chavez Plata LPN [facility] [place]12-13-2024 Telephone encounter Note* Telephone Encounter - Danita Meraz PA-C - 09/16/2024 1:02 PM EST Please clarify. Does patient only need 30 day supply? That's how it was pended. Also, aricept is prescribe by neuro. Danita Meraz PA-C [facility] [place]12-13-2024 Telephone encounter Note* Telephone Encounter - Jaci [...] Jaci Salazar September 16, 2024 10:58 AM [facility] [place]12-11-2024 Telephone encounter Note* Telephone Encounter - Salinas Hernandez RN - 09/14/2024 8:23 AM EST Pts called and is notified of providers results. She voices understanding. Salinas Hernandez RN [facility] [place]12-11-2024 Miscellaneous Notes* Telephone Encounter - Salinas Hernandez RN - 09/14/2024 8:23 AM EST Pts called and is notified of providers results. She voices understanding. Salinas Hernandez RN * Telephone Encounter - Adama Mendoza MD - 09/13/2024 8:47 PM EST Let know the hip x-ray shows mild/mod age related arthritis but no acute concerns such as a fracture. documented in this encounterSelect Medical [facility] [place]12-10-2024 Telephone encounter Note * Telephone Encounter - Adama Mendoza MD - 09/13/2024 8:47 PM EST Let know the hip x-ray shows mild/mod age related arthritis but no acute concerns such as a fracture. [facility] [place]12-09-2024 Telephone encounter Note* Telephone Encounter - Deann [...] Suarez LPN September 12, 2024 9:54 AM [facility] [place]12-09-2024 Miscellaneous Notes* Telephone Encounter - Deann Suarez [...] 12, 2024 9:54 AM documented in this encounterSelect Medical [facility] [place]12-07-2024 History of Present illness Narrative* Jana Tejeda [...] PATIENT PRESENTS WITH AN IMPLANTABLE OR ATTACHED [employer] SALES SUPERVISOR: No RADIOLOGY DEPARTMENT: General X-ray: Exam(s) Completed: Pelvis X-Ray: Pelvis with Hip Left PERIPHERAL IV DATA: Not applicable SIGNED BY: RT Hector(R) September 10, 2024 9:54 AM documented in this encounterSelect Medical [facility] [place]12-07-2024 NoteOhiohealth [facility] Hospital12-07-2024 NoteOhio[facility] Hospital12-07-2024 History of Present illness Narrative* Adama [...] 11/03/2013 Abdominal aortic aneurysm (AAA) without rupture ([facility]) 11/08/2016 US: 11/2016 2.6 x 2.4 x [...] kidney disease) stage 3, GFR 30-59 ml/min ([facility]) 04/11/2024 Dementia without behavioral disturbance ([facility]) 05/15/2016 MMSE: 22 05/2016, MMSE: 06/2019, 23 Elevated fasting blood sugar 12/01/2018 Emphysema lung ([facility]) 10/23/2023 Essential hypertension, benign 05/12/2006 Ex-smoker 10/31/2016 [...] DPA: Refugio () Malignant neoplasm of prostate ([facility]) 03/01/200802/09 PATH: Left Lobe: GS 7 ( [...] improving. Adama Mendoza MD documented in this encounterSelect Medical [facility] [place]12-05-2024 Telephone encounter Note * Telephone Encounter - Deana Moyer RN - 09/08/2024 4:46 PM EST Pt contacted and given results below. Pt had no further questions at this time.Deana Moyer RN [facility] [place]12-05-2024 Miscellaneous Notes* Telephone Encounter - Deana Moyer [...] biopsy results done 08/22/24. documented in this encounterSelect Medical [facility], [place]12-05-2024 Telephone encounter Note * Telephone Encounter - Rubén Gonzalez MD - 09/08/2024 9:38 AM EST lipoma [facility] Work Phone: [phone] 759-213712-03-2024 Telephone encounter Note* Telephone Encounter - Eulalia Ugarte MA - 09/06/2024 4:45 PM EST Refugio calling and asking for her husbands biopsy results done 08/22/24. [facility] [place]12-02-2024 Telephone encounter Note* Telephone Encounter - Judith [...] MA September 05, 2024 10:18 AM ] [facility] [place]12-02-2024 Miscellaneous Notes* Telephone Encounter - Judith Vanegas [...] 05, 2024 9:25 AM documented in this encounterSelect Medical [facility] [place]12-02-2024 Telephone encounter Note * Telephone Encounter - [...] Jaci Salazar September 05, 2024 9:25 AM [facility] [place]11-25-2024 Telephone encounter Note* Telephone Encounter - Deann [...] Suarez LPN August 29, 2024 10:38 AM [facility] [place]11-25-2024 Miscellaneous Notes* Telephone Encounter - Deann Suarez [...] 29, 2024 10:38 AM documented in this encounterSelect Medical [facility] [place]11-18-2024 Instructions* Patient Instructions* Twyla Seaman RN - 08/22/2024 1:36 PM EST The following instructions are important for you related to your office visit [facility] with [facility]. Instructions After OFFICE BASED [...] you should contact our office immediately @ [phone] and ask to be transferred to the General Surgery department. documented in this encounterSelect Medical [facility], [place]11-18-2024 NoteOhio[facility] Hospital11-18-2024 History of Present illness Narrative* Twyla [...] tolerated the procedure well. documented in this encounterSelect Medical [facility], [place]11-18-2024 NoteOhiohealth [facility] Hospital11-12-2024 NoteOhio[facility] Hospital11-12-2024 History of Present illness Narrative* Tania Cuello LPN - 08/16/2024 2:37 PM EST Patient presents for COVID vaccine. Denies any problems at this time. Tolerated injection well. Tania Cuello LPN documented in this encounterSelect Medical [facility] [place]11-07-2024 NoteOhio[facility] Hospital11-07-2024 History of Present illness Narrative* Rubén [...] kidney disease) stage 3, GFR 30-59 ml/min ([facility]) 04/11/2024 Dementia without behavioral disturbance ([facility]) 05/15/2016 MMSE: 22 05/2016, MMSE: 06/2019, 23 Elevated fasting blood sugar 12/01/2018 Emphysema lung ([facility]) 10/23/2023 Essential hypertension, benign 05/12/2006 Ex-smoker 10/31/2016 [...] DPA: Refugio () Malignant neoplasm of prostate ([facility]) 03/01/200802/09 PATH: Left Lobe: GS 7 ( [...] Rubén Gonzalez III, MD documented in this encounterSelect Medical [facility] [place]10-28-2024 Telephone encounter Note * Telephone Encounter - Chavez Plata LPN - 08/01/2024 9:04 AM EDT Pt's notified of results and instructions. verbalizes understanding. was assisted intransfer to schedule surgical appointment. Chavez Plata LPN [facility] [place]10-28-2024 Miscellaneous Notes* Telephone Encounter - Chavez Plata [...] biopsy. Danita Meraz PA-C documented in this encounterSelect Medical Cleveland [facility], [place]10-28-2024 Telephone encounter Note * Telephone Encounter - Danita Meraz PA-C - 08/01/2024 7:37 AM EDT Let patient's know that the mass on his back has heterogeneous characteristics. Which is not typical with just a lipoma. So we will get surgical consult for further evaluation and possible biopsy. Danita Meraz PA-C [facility] [place]10-23-2024 History of Present illness Narrative* Amanda Corea [...] PATIENT PRESENTS WITH AN IMPLANTABLE OR ATTACHED [employer] SALES SUPERVISOR: No RADIOLOGY DEPARTMENT: Ultrasound PERIPHERAL IV DATA: Not applicable SIGNED BY: Amanda Corea RDMS July 27, 2024 2:07 PM documented in this encounterSelect Medical [facility] [place]10-23-2024 NoteOhio[facility] Hospital10-23-2024 Telephone encounter Note* Telephone Encounter - [...] Plata LPN July 27, 2024 12:21 PM [facility] [place]10-23-2024 Miscellaneous Notes* Telephone Encounter - Chavez Plata [...] Thank you. Yolie Sarmiento. documented in this encounterSelect Medical [facility], [place]10-23-2024 Telephone encounter Note * Telephone Encounter - [...] 10/17/2024 Please advise. Thank you. Yolie Sarmiento. [facility] [place]10-17-2024 History of Present illness Narrative* Danita Meraz [...] kidney disease) stage 3, GFR 30-59 ml/min ([facility]) 04/11/2024 Dementia without behavioral disturbance ([facility]) 05/15/2016 MMSE: 22 05/2016, MMSE: 06/2019, 23 Elevated fasting blood sugar 12/01/2018 Emphysema lung ([facility]) 10/23/2023 Essential hypertension, benign 05/12/2006 Ex-smoker 10/31/2016 [...] DPA: Refugio () Malignant neoplasm of prostate ([facility]) 03/01/200802/09 PATH: Left Lobe: GS 7 ( [...] TISSUE Danita Meraz PA-C documented in this encounterSelect Medical [facility] [place]10-03-2024 Telephone encounter Note * Telephone Encounter - Adama Mendoza MD - 07/07/2024 2:53 PM EDT The following approved medication requests have been transmitted electronically. Requested Prescriptions Signed Prescriptions Disp Refills solifenacin ([facility]ICARE) 5 mg tablet 90 tablet 1 Sig: Take 1 tablet by mouth once daily. Authorizing Provider: ADAMA MENDOZA MD [facility] [place]10-03-2024 Miscellaneous Notes* Telephone Encounter - Adama Mendoza [...] Thank you. Yolie Sarmiento. documented in this encounterSelect Medical Cleveland [facility], [place]10-03-2024 Telephone encounter Note * Telephone Encounter - Chavez Plata LPN - 07/07/2024 2:43 PM EDT Please see below. Chavez Plata LPN [facility] [place]10-03-2024 Telephone encounter Note* Telephone Encounter - Yolie [...] 10/17/2024 Please advise. Thank you. Yolie Sarmiento. [facility] [place]-24-2024 History of Present illness Narrative* Amanda Montana [...] 11/03/2013 Abdominal aortic aneurysm (AAA) without rupture ([facility]) 11/08/2016 US: 11/2016 2.6 x 2.4 x [...] kidney disease) stage 3, GFR 30-59 ml/min ([facility]) 04/11/2024 Dementia without behavioral disturbance ([facility]) 05/15/2016 MMSE: 22 05/2016, MMSE: 06/2019, 23 Elevated fasting blood sugar 12/01/2018 Emphysema lung ([facility]) 10/23/2023 Essential hypertension, benign 05/12/2006 Ex-smoker 10/31/2016 [...] DPA: Refugio () Malignant neoplasm of prostate ([facility]) 03/01/200802/09 PATH: Left Lobe: GS 7 ( [...] plan. Amanda Montana PA-C documented in this encounterSelect Medical Cleveland [facility] [place]09-18-2024 History of Present illness Narrative* Jelena Lazar APRN.HANGER OFF - 06/22/2024 11:20 AM EDT This is [...] 11/03/2013 Abdominal aortic aneurysm (AAA) without rupture ([facility]) 11/08/2016 US: 11/2016 2.6 x 2.4 x [...] kidney disease) stage 3, GFR 30-59 ml/min ([facility]) 04/11/2024 Dementia without behavioral disturbance ([facility]) 05/15/2016 MMSE: 22 05/2016, MMSE: 06/2019, 23 [...] 482.9, ICD10: J15.9 - May use Mucinex [id number] as needed for chest congestion. - May complete chest x-ray in the future if symptoms do not improve or get worse. Patient's verbalizes understanding. - XR CHEST 2V FRONTAL/LAT Follow-up as needed. Discussed treatment plan and patient voices understanding. Patient's questions answered appropriately. Medications and potential side effects were discussed and patient voices understanding. Jelena Lazar APRN.CNP This note was partially generated using [employer] voice recognition system. Note was reviewed for accuracy. There may be minor misspellings or grammar miscues with [employer] voice recognition. documented in this encounterSelect Medical Cleveland [facility] [place]09-18-2024 Instructions* Patient Instructions* Jelena Lazar APRN.CNP - 06/22/2024 11:08 AM EDT Continue supportive care at home Stay well hydrated May use mucinex as needed for chest congestion. Any worsening symptoms, increased cough complete chest xray Follow up as needed. documented in this encounterSelect Medical Cleveland [facility] [place]09-18-2024 Telephone encounter Note * Telephone Encounter - [...] Avis Salazar June 22, 2024 10:18 AM [facility] [place]09-18-2024 Miscellaneous Notes* Telephone Encounter - Avis Theodore [...] 22, 2024 10:18 AM documented in this encounterSelect Medical Cleveland [facility] [place]09-12-2024 Miscellaneous Notes* Telephone Encounter - Dedra Ayala MA - 06/16/2024 9:05 AM EDT Pt notified and voiced understanding. Dedra Ayala MA * Telephone Encounter - Adama Mendoza MD - 06/16/2024 8:23 AM EDT Let patient's know his CBC was fine. His Uric acid was ok but in acute gout attacks it can be normal. Cont with the antibiotic and steroid. documented in this encounterSelect Medical [facility] [place]09-12-2024 Telephone encounter Note * Telephone Encounter - Dedra Ayala MA - 06/16/2024 9:05 AM EDT Pt notified and voiced understanding. Dedra Ayala MA [facility] [place]09-12-2024 Telephone encounter Note* Telephone Encounter - Adama Mendoza MD - 06/16/2024 8:23 AM EDT Let patient's know his CBC was fine. His Uric acid was ok but in acute gout attacks it can be normal. Cont with the antibiotic and steroid. [facility] [place]-2024 History of Present illness Narrative* Adama Mendoza MD - 06/15/2024 11:00 AM EDT Chief Complaint Patient presents with: Hospital F/U HPI Lory Johnson is a 79 year old male who presents here today for Hospital Discharge Follow up.. Patient was sent to the [facility] ER for possible UTI and confusion. [...] wandering.. Patient was to be transferred to long-term facility however he was walking ok on [...] kidney disease) stage 3, GFR 30-59 ml/min ([facility]) 05/15/2016: Dementia without behavioral disturbance ([facility]) Comment: MMSE: 22 05/2016, MMSE: 06/2019, 23 [...] week. Adama Mendoza MD documented in this encounterSelect [facility] [place] Instructions* Patient Instructions* Jelena Lazar APRN.CNP - 06/15/2024 7:26 AM EDT Get lab completed Start prednisone taper, take with food in the morning. Monitor symptoms at home Watch for increased redness, swelling, or fever/chills. Follow up as needed. documented in this encounterSelect Medical [facility], [place] History of Present illness Narrative* Jelena Lazar [...] at [facility]. No fever or chills. 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 PAST MEDICAL HISTORY: PAST [...] kidney disease) stage 3, GFR 30-59 ml/min ([facility]) 05/15/2016: Dementia without behavioral disturbance ([facility]) Comment: MMSE: 22 05/2016, MMSE: 06/2019, 23 12/01/2018: Elevated fasting blood sugar 10/23/2023: Emphysema lung ([facility]) 05/12/2006: Essential hypertension, benign 10/31/2016: Ex-smoker Comment: [...] Refugio () 03/01/2008: Malignant neoplasm of prostate ([facility]) Comment: 02/09 PATH: Left Lobe: GS 7 [...] APRN.RACHELLE This note was partially generated using [employer] voice recognition system. Note was reviewed for accuracy. There may be minor misspellings or grammar miscues with [employer] voice recognition. documented in this encounterSelect Medical [facility], [place]-[facility]24 Telephone encounter Note * Telephone Encounter - Shira Manning RN - 06/15/2024 6:31 AM EDT Reason for call: calling to double check address to appointment location for patient for 6:45 am appointment. States they are at a building in [place] but unsure if it is the correct building. Outcome: Address to [facility] provided. [facility] [place]24 Miscellaneous Notes* Telephone Encounter - Shira Manning RN - 06/15/2024 6:31 AM EDT Reason for call: calling to double check address to appointment location for patient for 6:45 am appointment. States they are at a building in [place] but unsure if it is the correct building. Outcome: Address to [facility] provided. documented in this encounterSelect Medical [facility] [place]-05-2024 History of Present illness Narrative* Chavez Plata LPN - 06/09/2024 7:01 AM EDT Scan on 06/08/2024 11:11 PM by Provider, Brandie, ISABELLE: Consultation - Emergency Medicine documented in this encounterSelect Medical [facility] [place]-04-2024 Telephone encounter Note * Telephone Encounter - Adama Mendoza MD - 06/08/2024 7:27 PM EDT Noted and agree. [facility] [place]-04-2024 Miscellaneous Notes* Telephone Encounter - Adama Mendoza [...] with pcp is 10-17-24. documented in this encounterSelect Medical [facility], [place]09-04-2024 Telephone encounter Note * Telephone Encounter - Roula Brown RN - 06/08/2024 2:53 PM EDT Spouse Refugio calling in again. States she was just outside with patient and he doesn't seem himself. Seems out of it. Gazing off. Only has spoke about 6 words today. Continues with urinary incontinence. Spouse voices concern for CVA. ER advised by this nurse. agreeable. Roula Brown RN [facility] [place]-04-2024 Telephone encounter Note* Telephone Encounter - Andres [...] Patient's next appt with pcp is 10-17-24. [facility] [place]-08-[facility]24 Telephone encounter Note* Telephone Encounter - Cassia Burt RN - 05/12/2024 2:50 PM EDT Spoke with patient. Given message from provider's office. Patient verbalizes understanding. Cassia Burt RN [facility] [place]-08-2024 Miscellaneous Notes* Telephone Encounter - Cassia Burt [...] Back to his baseline. documented in this encounterSelect Medical [facility], [place]08-08-2024 Telephone encounter Note * Telephone Encounter - Dedra Ayala MA - 05/12/2024 2:49 PM EDT Message left for pt to call back for results. Dedra Ayala MA [facility] [place]-08-2024 Telephone encounter Note* Telephone Encounter - Danita Meraz PA-C - 05/12/2024 2:38 PM EDT Let patient know that kidney function has improved. Back to his baseline. [facility] [place]24 History of Present illness Narrative* Stephany Suarez MD - 05/12/2024 2:15 PM EDT Images from the original note were not included. . [facility] [place] Note Patient name: Lory Johnson PCP: Adama [...] kidney disease) stage 3, GFR 30-59 ml/min ([facility]) 05/15/2016: Dementia without behavioral disturbance ([facility]) Comment: MMSE: 22 05/2016, MMSE: 06/2019, 23 [...] of smoking cessation Stephany Suarez MD [facility] [place] documented in this encounterSelect Medical [facility] [place]07-31-2024 History of Present illness Narrative* Judith Vanegas MA - 05/04/2024 2:34 PM EDT Scan on 04/28/2024 2:25 PM by Provider, ISABELLE Diego: Consultation - Cardiology Judith Vanegas MA documented in this encounterSelect Medical [facility], [place]07-08-2024 Instructions* Patient Instructions* Adama Mendoza MD - [...] review all the medicines you take, even wprk-mox-dxolnvz medicines. As you get older, the way [...] have certain medical conditions. documented in this encounterSelect Medical [facility], [place]07-08-2024 History of Present illness Narrative* Adama Mendoza [...] Lymph 1.00 - 4.00 k/uL 2.08 2.66 Curry% % 11.3 12.4 Abs Curry <0.87 k/uL 0.96 (H) 1.41 (H) Eosin% [...] Negative Ketones, Urine Negative Negative Negative Specific [place], Ur 1.005 - 1.030 1.024 1.012 Hemoglobin/Blood,Ur [...] which included preparing to see the patient, jqyo-ab-qxhk patient care, completing clinical documentation, performing a medically appropriate examination, counseling and educating the patient/family/caregiver and ordering medications, tests, or procedures. Adama Mendoza MD documented in this encounterSelect Medical [facility], [place]07-02-2024 Telephone encounter Note * Telephone Encounter - Christi Roberts LPN - 04/05/2024 4:56 PM EDT notified with results below and also gave message to pt. They will come in on Thursday and get lab repeated. Christi Roberts LPN [facility] [place]-02-2024 Miscellaneous Notes* Telephone Encounter - Christi Roberts [...] this Thursday. Order placed. documented in this encounterSelect Medical [facility], [place]07-02-2024 Telephone encounter Note * Telephone Encounter - Judith Vanegas MA - 04/05/2024 4:47 PM EDT Left message for patient's to contact office. Judith Vanegas MA [facility] [place]07-02-2024 Telephone encounter Note* Telephone Encounter - Adama Mendoza MD - 04/05/2024 4:43 PM EDT Let know his one kidney function was high and question if dehydrated. I want him to hydrate well and get a repeat lab this Thursday. Order placed. [facility] [place]-01-2024 History of Present illness Narrative* Testrake, Dandy [...] returns. Dandy Faith DPM Podiatry [address] [place] [address] Dept: [phone] Dept * Katt Olivares LPN - 04/04/2024 2:26 PM EDT AMB ROOMING INTAKE FLOWSHEET DATA Patient presents with: Left Foot - Established Patient, Pain Katt Olivares LPN documented in this encounterSelect Medical [facility], [place]06-24-2024 Telephone encounter Note * Telephone Encounter - Adama Mendoza MD - 03/28/2024 10:27 PM EDT The following approved medication requests have been transmitted electronically. Requested Prescriptions Signed Prescriptions Disp Refills aspirin, enteric coated (ECOTRIN LOW STRENGTH) 81 mg EC tablet 90 tablet 3 Sig: Take 1 tablet by mouth once daily. Authorizing Provider: ADAMA MENDOZA MD [facility] [place]-24-2024 Miscellaneous Notes* Telephone Encounter - Adama Mendoza [...] 28, 2024 11:45 AM documented in this encounterSelect Medical [facility], [place]06-24-2024 Telephone encounter Note * Telephone Encounter - [...] tablet by mouth once daily. Brianna Howe [facility] March 28, 2024 11:45 AM Electronically signed by [facility] Brianna Salazar at 03/28/2024 11:46 AM EDT [facility] [place] Work Phone: [phone] 247-843706-03-2024 Telephone encounter Note* Telephone Encounter - Adama Mendoza MD - 03/07/2024 11:21 AM EDT The following approved medication requests have been transmitted electronically. Requested Prescriptions Signed Prescriptions Disp Refills pravastatin (PRAVACHOL) 80 mg tablet 90 tablet 1 Sig: Take 1 tablet by mouth once daily. 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 willing to restart please send to jesus Canchola MA * Telephone Encounter - Adama Mendoza MD - 03/07/2024 10:51 AM EDT Let know the last time the pravastatin was filled was 10/12/2023. He had been on the same dose of 80 mg a day since 11/2017. This was to help lesson the risk of a repeat Stroke and MO. It would be beneficial for him to [...] is willing to travel out side of [place] to see a different [facility] she can call and request an appt [...] Thank you, Quyen Garza documented in this encounterSelect Medical [facility], [place]06-03-2024 Telephone encounter Note * Telephone Encounter - Stephany Canchola MA - 03/07/2024 11:03 AM EDT Spoke to and she honestly doesn't remember why is was stopped may be she thinks he takes to many medications. 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 willing to restart please send to jesus Canchola MA [facility] [place]06-03-2024 Telephone encounter Note* Telephone Encounter - Adama Mendoza MD - 03/07/2024 10:51 AM EDT Let know the last time the pravastatin was filled was 10/12/2023. He had been on the same dose of 80 mg a day since 11/2017. This was to help lesson the risk of a repeat Stroke and MO. It would be beneficial for him to be back on it if he will take it? [facility] [place]-03-2024 Telephone encounter Note* Telephone Encounter - Judith [...] not to take it. Judith Vanegas MA [facility] [place]05-31-2024 Telephone encounter Note* Telephone Encounter - Adama Mendoza MD - 03/04/2024 5:03 PM EDT Let know there is nothing urgent on the x-ray but if she is willing to travel out side of [place] to see a different [facility] she can call and request an appt change. The other option is she can get an appt with one of the local non-[facility] podiatry offices and then let us know with who and when and we can send a consult request to them. Can we also see if she remembers who had Tom stop his cholesterol med, Pravastatin 80 mg a day? [facility] [place]-31-2024 Telephone encounter Note* Telephone Encounter - Quyen Garza - 03/04/2024 3:00 PM EDT Patients is concerned about the wait on the podiatry appointment as it out until April 04 for the first available. If they need to be seen sooner please give them a call so they can reschedule theappointment. Thank you, Quyen Braxton [facility] [place]05-31-2024 Telephone encounter Note* Telephone Encounter - Nancy Miller LPN - 03/04/2024 2:37 PM EDT Results were given to pt's spouse Refugio. Refugio & pt are in the building at another appt for pt & will stop at appt desk on their way out to schedule with podiatry. Nancy Miller LPN [facility] [place]-31-2024 Miscellaneous Notes* Telephone Encounter - Nancy Miller [...] podiatry. Danita Meraz PA-C documented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 [place] History of Past illness Narrative* Problem Noted [...] of this encounter (statuses as of 07/10/2022) [facility] [place] History of Past illness Narrative* Problem Noted [...] of this encounter (statuses as of 07/28/2022) [facility] [place] History of Past illness Narrative* Problem Noted [...] of this encounter (statuses as of 07/28/2022) [facility] [place] History of Past illness Narrative* Problem Noted [...] of this encounter (statuses as of 07/29/2022) [facility] [place] History of Past illness Narrative* Problem Noted [...] of this encounter (statuses as of 08/05/2022) [facility] [place] History of Past illness Narrative* Problem Noted [...] of this encounter (statuses as of 08/27/2022) [facility] [place] History of Past illness Narrative* Problem Noted [...] of this encounter (statuses as of 09/01/2022) [facility] [place] History of Past illness Narrative* Problem Noted [...] of this encounter (statuses as of 09/18/2022) [facility] [place] History of Past illness Narrative* Problem Noted [...] of this encounter (statuses as of 10/09/2022) [facility] [place] History of Past illness Narrative* Problem Noted [...] of this encounter (statuses as of 10/10/2022) [facility] [place] History of Past illness Narrative* Problem Noted [...] of this encounter (statuses as of 11/04/2022) [facility] [place] of Past illness Narrative* Problem Noted [...] of this encounter (statuses as of 11/06/2022) [facility] [place] of Past illness Narrative* Problem Noted [...] of this encounter (statuses as of 11/14/2022) [facility] [place] of Past illness Narrative* Problem Noted [...] of this encounter (statuses as of 11/17/2022) [facility] [place] of Past illness Narrative* Problem Noted [...] of this encounter (statuses as of 11/20/2022) [facility] [place] of Past illness Narrative* Problem Noted [...] of this encounter (statuses as of 11/20/2022) [facility] [place] of Past illness Narrative* Problem Noted [...] of this encounter (statuses as of 11/24/2022) [facility] [place] of Past illness Narrative* Problem Noted [...] of this encounter (statuses as of 12/16/2022) [facility] [place] of Past illness Narrative* Problem Noted [...] of this encounter (statuses as of 12/30/2022) [facility] [place] of Past illness Narrative* Problem Noted [...] of this encounter (statuses as of 01/08/2023) [facility] [place] of [facility] illness Narrative* Problem Noted [...] of this encounter (statuses as of 01/30/2023) [facility] [place] of [facility] illness Narrative* Problem Noted [...] of this encounter (statuses as of 02/02/2023) [facility] [place] of [facility] illness Narrative* Problem Noted [...] of this encounter (statuses as of 02/08/2023) [facility] [place] of [facility] illness Narrative* Problem Noted [...] of this encounter (statuses as of 04/06/2023) [facility] [place] of [facility] illness Narrative* Problem Noted [...] of this encounter (statuses as of 04/10/2023) [facility] [place] of [facility] illness Narrative* Problem Noted [...] of this encounter (statuses as of 04/15/2023) [facility] [place] of [facility] illness Narrative* Problem Noted [...] of this encounter (statuses as of 04/30/2023) [facility] [place] of [facility] Narrative* Problem Noted [...] of this encounter (statuses as of 05/01/2023) [facility] [place] of [facility] illness Narrative* Problem Noted [...] of this encounter (statuses as of 05/01/2023) [facility] [place] of [facility] illness Narrative* Problem Noted [...] of this encounter (statuses as of 05/02/2023) [facility] [place] Narrative* Problem Noted [...] of this encounter (statuses as of 05/08/2023) [facility] [place] Narrative* Problem Noted [...] of this encounter (statuses as of 05/22/2023) [facility] [place] of [facility] Narrative* Problem Noted [...] of this encounter (statuses as of 06/17/2023) [facility] [place] Narrative* Problem Noted [...] of this encounter (statuses as of 06/23/2023) [facility] [place] Narrative* Problem Noted [...] of this encounter (statuses as of 06/26/2023) [facility] [place] Narrative* Problem Noted [...] of this encounter (statuses as of 07/15/2023) [facility] [place] Narrative* Problem Noted [...] of this encounter (statuses as of 08/26/2023) [facility] [place] Narrative* Problem Noted [...] of this encounter (statuses as of 09/04/2023) [facility] [place] Narrative* Problem Noted [...] of this encounter (statuses as of 11/02/2023) [facility] [place] of [facility] illness Narrative* Problem Noted [...] of this encounter (statuses as of 11/10/2023) [facility] [place] of [facility] illness Narrative* Problem Noted [...] of this encounter (statuses as of 11/23/2023) [facility] [place] of Past illness Narrative* Problem Noted [...] of this encounter (statuses as of 12/15/2023) [facility] [place] of [facility] illness Narrative* Problem Noted [...] of this encounter (statuses as of 12/16/2023) [facility] [place] of [facility] illness Narrative* Problem Noted [...] of this encounter (statuses as of 12/24/2023) [facility] [place] Narrative* Problem Noted [...] of this encounter (statuses as of 01/20/2024) [facility] [place] illness Narrative* Problem Noted Date Diagnosed Date Resolved Date GERD without esophagitis 11/15/2015 Overview: SeeMrakell samson Dr Gastroesophageal reflux disease 08/03/2015 08/03/2015 [...] of this encounter (statuses as of 01/22/2024) [facility] [place] History of Past illness Narrative* Problem Noted [...] of this encounter (statuses as of 01/08/2024) [facility] [place]01-03[facility]2014 Evaluation note* Diagnosis Onset Date Resolution Status Admit Date Essential (primary) hypertension acute June 23, 2025 1:47pm HLD (hyperlipidemia) acute Jun 1:47pm History of coronary artery stent placement October 07, 2013 resolved Septemb er 2024 1:47pm [facility] Work Phone: Evaluation note* Diagnosis Essential hypertension, benign [facility]* Diagnosis Medicare annual wellness visit, subsequent- Primary Routine general medical examination at a health care facility Essential hypertension, benign Mixed hyperlipidemia Elevated fasting blood sugar Impaired fasting glucose GERD without esophagitis Esophageal reflux CAD S/P percutaneous coronary angioplasty Coronary atherosclerosis of [place] coronary artery 3-vessel CAD Coronary atherosclerosis of unspecified type of vessel, [place] or graft Dementia without behavioral disturbance, unspecified [...] unspecified single disease documented [facility] this [facility]* Diagnosis Skin lump of arm, right- Primary documented in this [facility]* Diagnosis Skin lump of arm, right documented [facility]* Diagnosis Gastroesophageal reflux disease with esophagitis without hemorrhage documented [facility] this [facility] noteNo assessment information availableWSelect [facility], [facility] Work Phone: Evaluation note* Diagnosis Essential hypertension, benign documented [facility] this [facility]* Diagnosis Dislocation of right shoulder joint, initial encounter- Primary documented in this [facility]* Diagnosis Need for influenza vaccination- Primary Need for prophylactic vaccination and inoculation against influenza documented [facility] this [facility]* Diagnosis Anterior dislocation of right shoulder, initial encounter- Primary Traumatic tear of right rotator cuff, unspecified tear extent, initial encounter documented in this [facility]* Diagnosis Anterior dislocation of right shoulder, [...] S/P percutaneous coronary angioplasty Coronary atherosclerosis of [place] coronary artery History of CVA (cerebrovascular accident) [...] cuff, subsequent [facility] Onychomycosis- Primary Dermatophytosis of [...] S/P percutaneous coronary angioplasty Coronary atherosclerosis of [place] coronary artery GERD without esophagitis Esophageal reflux History of CVA (cerebrovascular accident) Transient ischemic attack (TIA), and cerebral infarction without residual deficits Dementia without behavioral disturbance (HCC) Dementia, unspecified, without behavioral disturbance NAIN (obstructive sleep apnea) Obstructive sleep apnea (adult) (pediatric) documented in this [facility]* Diagnosis Essential hypertension, benign [facility]* Diagnosis Urinary incontinence, unspecified type- Primary documented in this [facility]* Diagnosis COVID-19- Primary Bacterial pneumonia Bacterial pneumonia, unspecified Urinary incontinence, unspecified type Altered mental status, unspecified altered mental status type History of CVA (cerebrovascular accident) Transient ischemic attack (TIA), and cerebral infarction without residual deficits Other specified transient cerebral ischemias [facility]* Diagnosis Bacterial pneumonia- Primary Bacterial pneumonia, unspecified Need for vaccination Need for prophylactic vaccination and inoculation against unspecified single disease [facility]* Diagnosis Essential hypertension, benign documented [facility] this [facility]* Diagnosis Dementia without behavioral disturbance (HCC)- Primary Dementia, unspecified, without behavioral disturbance NAIN (obstructive sleep apnea) Obstructive sleep apnea (adult) (pediatric) History of CVA (cerebrovascular accident) Transient ischemic attack (TIA), and cerebral infarction without residual deficits Altered mental status, unspecified altered mental status type Transient cerebral ischemia, unspecified type Seizure (HCC) Other convulsions [facility]* Diagnosis Centrilobular emphysema (HCC) Other emphysema [facility]* Diagnosis Centrilobular emphysema (HCC) Other emphysema [facility]* Diagnosis Transient cerebral ischemia, unspecified type documented in this [facility]* Diagnosis Transient cerebral ischemia, unspecified type documented in this [facility]* Diagnosis 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 Other persistent mental disorders due to conditions classified elsewhere Nonspecific abnormal electroencephalogram (EEG) History of CVA (cerebrovascular accident) Transient ischemic attack (TIA), and cerebral infarction without residual deficits Seizure (HCC) Other convulsions Altered mental status, unspecified altered mental status type [facility]* Diagnosis Essential hypertension, benign documented [facility] Diagnosis Pain of left heel- Primary Pain in limb documented [facility] Diagnosis Pain of left heel- Primary Pain in limb [facility]* Diagnosis Dementia without behavioral disturbance (HCC)- Primary Dementia, unspecified, without behavioral disturbance NAIN (obstructive sleep apnea) Obstructive sleep apnea (adult) (pediatric) History of CVA (cerebrovascular accident) Transient ischemic attack (TIA), and cerebral infarction without residual deficits Altered mental status, unspecified altered mental status type Abnormal EEG Nonspecific abnormal electroencephalogram (EEG) documented in this encounter [facility]* Diagnosis Calcaneal spur of left foot- Primary Calcaneal spur Pain of left heel Pain in limb [facility] Diagnosis Renal insufficiency- Primary Unspecified disorder of kidney and ureter documented in this [facility]* Diagnosis Medicare annual wellness visit, subsequent- Primary Routine general medical examination at a health care facility Essential hypertension, benign Mixed hyperlipidemia Elevated fasting blood sugar Impaired fasting glucose GERD without esophagitis Esophageal reflux CAD S/P percutaneous coronary angioplasty Coronary atherosclerosis of [place] coronary artery History of CVA (cerebrovascular accident) Transient ischemic attack (TIA), and cerebral infarction without residual deficits Dementia without behavioral disturbance (HCC) Dementia, unspecified, without behavioral disturbance NAIN (obstructive sleep apnea) Obstructive sleep apnea (adult) (pediatric) Anemia, unspecified type Advance directive discussed with patient Other specified counseling Pulmonary emphysema, unspecified emphysema type ([facility]) Stage 3 chronic kidney disease, unspecified whether stage 3a or 3b CKD ([facility]) documented in this [facility]* Diagnosis Moderate COPD (chronic obstructive pulmonary disease) ([facility])- Primary Chronic airway obstruction, not elsewhere classified Asbestosis ([facility]) Former smoker Personal history of tobacco use, presenting hazards to health documented [facility] this encounter [facility]* Diagnosis Pain of left heel Pain in limb [facility]* Diagnosis Acute gout of right elbow, unspecified cause- Primary documented in this [facility]* Diagnosis Bacterial pneumonia- Primary Bacterial pneumonia, unspecified Cellulitis of skin Cellulitis and abscess of unspecified site documented in this [facility]* Diagnosis COVID-19 Bacterial pneumonia Bacterial pneumonia, unspecified documented in this [facility]* Diagnosis Cellulitis of skin- Primary Cellulitis and abscess of unspecified site Acute gout of right elbow, unspecified cause Bacterial pneumonia Bacterial pneumonia, unspecified [facility]* Diagnosis Pain of finger of left hand- Primary Pain in limb [facility]* Diagnosis Hand injury, right, initial encounter [facility] Hand pain, right Pain in limb [facility] Diagnosis Acute right-sided low back pain without sciatica [facility]* Diagnosis Mass of subcutaneous tissue of back- Primary [facility]* Diagnosis Essential hypertension, benign [facility]* Diagnosis Mass of subcutaneous tissue of back [facility]* Diagnosis Seizure (HCC) Other convulsions Altered mental status, unspecified altered mental status type documented [facility]* Diagnosis Mass of subcutaneous tissue of back- Primary [facility]* Diagnosis Encounter for immunization Need for other specified prophylactic vaccination against single bacterial disease [facility] Diagnosis Mass of subcutaneous tissue of back- Primary [facility]* Diagnosis Mass of subcutaneous tissue of back [facility]* Diagnosis Left hip pain- Primary Pain in joint, pelvic region and thigh [facility] Diagnosis Cellulitis of skin- Primary Cellulitis and abscess of unspecified site Rash Rash and other nonspecific skin eruption Encounter for immunization Need for other specified prophylactic vaccination against single bacterial disease [facility]* Diagnosis Cellulitis of skin- Primary Cellulitis [...] abnormal electroencephalogram (EEG) documented in this [facility]* Diagnosis Transient cerebral ischemia, unspecified type documented in this encounter [facility]* Diagnosis 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)- Primary documented in this [facility]* Diagnosis Dementia without behavioral disturbance (HCC)- Primary Dementia, unspecified, without behavioral disturbance NAIN (obstructive sleep apnea) Obstructive sleep apnea (adult) (pediatric) History of CVA (cerebrovascular accident) Transient ischemic attack (TIA), and cerebral infarction without residual deficits Altered mental status, unspecified altered mental status type Abnormal EEG Nonspecific abnormal electroencephalogram (EEG) Transient cerebral ischemia, unspecified type documented [facility] this [facility]* Diagnosis Acute encephalopathy- Primary Encephalopathy, unspecified 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) Dementia with behavioral disturbance (HCC) Dementia, unspecified, with behavioral disturbance Muscular deconditioning Muscular wasting and disuse atrophy, not elsewhere classified Pneumonia of left lower lobe due to infectious organism Decubitus ulcer of left buttock, stage 2 ([facility]) Pressure ulcer, buttock [facility]* Diagnosis Left hip pain Pain in joint, pelvic region and thigh [facility]* Diagnosis Alzheimer's disease (HCC)- Primary Alzheimer's disease [facility]* Diagnosis Bacterial pneumonia- Primary Bacterial pneumonia, unspecified Pressure injury of left buttock, stage 2 (HCC) [facility]* Diagnosis URI, acute- Primary Acute upper respiratory infections of unspecified site documented [facility] this encounter [facility]* Diagnosis Onychomycosis- Primary Dermatophytosis of nail Pain in toe of left foot Pain in limb Pain in toe of right foot Pain in limb Left foot pain Pain in limb [facility]* Diagnosis Pressure sensation in both ears- Primary documented in this [facility]* Diagnosis Severe dementia, unspecified dementia type, unspecified whether behavioral, psychotic, or mood disturbance or anxiety (HCC)- Primary History of CVA (cerebrovascular accident) Transient ischemic attack (TIA), and cerebral infarction without residual deficits Abnormal EEG Nonspecific abnormal electroencephalogram (EEG) NAIN (obstructive sleep apnea) Obstructive sleep apnea (adult) (pediatric) documented in this [facility]* Diagnosis Gastroesophageal reflux disease with esophagitis without hemorrhage documented [facility] this [facility]* Diagnosis Fall, initial encounter- Primary Right arm pain Pain in limb Acute pain of right shoulder Right hip pain Pain in joint, pelvic region and thigh Fall, initial encounter Right hip pain Pain in joint, pelvic region and thigh Acute pain of right shoulder Right arm pain Pain in limb [facility]* Diagnosis Fall, initial encounter Right hip pain Pain in joint, pelvic region and thigh Acute pain of right shoulder Right arm pain Pain in limb documented [facility]* Diagnosis Essential hypertension, benign documented in this [facility]* Diagnosis Medicare annual wellness visit, subsequent- Primary Routine general medical examination at a health care facility Essential hypertension, benign Mixed hyperlipidemia Elevated fasting blood sugar Impaired fasting glucose GERD without esophagitis Esophageal reflux Pulmonary emphysema, unspecified emphysema type (HCC) CAD S/P percutaneous coronary angioplasty Coronary atherosclerosis of [place] coronary artery Stage 3a chronic kidney disease [...] of magnesium metabolism documented in this encounter [facility]* Diagnosis Vitamin B6 deficiency- Primary documented in this encounter [facility] note* Diagnosis Onychomycosis- Primary Dermatophytosis of nail Pain in toe of left foot Pain in limb Pain in toe of right foot Pain in limb Diminished pulses in lower extremity Other symptoms involving cardiovascular system [facility] Additional Instructions Follow-up with orthopedics in 1 to 2 weeks. Wear sling until cleared by orthopedics. You can take ibuprofen or Tylenol instead of prescription pain medicine ([place] Joe). At the pain is too severe he does have a prescription for [place] which is hydrocodone/acetaminophen. This medicine can increase confusion and does cause constipation. If you do take it take a stool softener or MiraLAX with it.[facility] Work Phone: Hospital Discharge instructions Additional Instructions Plenty of fluids and rest. Follow-up with your doctor if not improving. Return if worse.[facility] Work Phone: Patient's home Plan of care note* Visit Details Visit Type -SN AGENCY DC WO VISIT Discipline -Penitentiary Problems Problem Description Start Date Status Goals [...] to: caregiver assistance documented in this encounter [facility] for referral (narrative)* Outpatient Procedure (Routine) - Authorized Specialty Diagnoses / Procedures Referred By Opal galloway Referred To [facility] Diagnoses Seizure (HCC) Altered mental status, unspecified altered mental status type Procedures EPIL EEG ROUTINE ELECTROENCEPHALOGRAM REC COMA/SLEEP ONLY Shaye Kitchen Jr., MD [address] [facility] [address] [place] [address] [address] Referral ID Status Reason Start Date Expiration Date Visits Requested Visits Authorized [id number] Authorized Auto-Generat ed Referral 11/20/2023 11/20/2024 1 1 * MRI/CT (Routine) - Authorized Specialty Diagnoses / Procedures Referred By Opal galloway Referred To Contact MR IMAGING Diagnoses Transient cerebral ischemia, unspecified type Procedures MRA CAROTID WO IVCON MRA, NECK; W/O CONTRAST Shaye Kitchen Jr., MD [address] [place] [address] [place] [address] Referral ID Status Reason Start Date Expiration Date Visits Requested Visits Authorized [id number] Authorized Auto-Generat ed Referral 11/20/2023 12/19/2024 1 1 * MRI/CT (Routine) - Authorized Specialty Diagnoses / Procedures Referred By Contac t Referred To Contact MR IMAGING Diagnoses Transient cerebral ischemia, unspecified type Procedures MRA BRAIN WO IVCON MRA, HEAD W/O CONTRAST Shaye Kitchen Jr., MD [address] [facility] [address] [place] [address] [place] [address] Referral ID Status Reason Start Date Expiration Date Visits Requested Visits Authorized [id number] Authorized Auto-Generat ed Referral 11/20/2023 12/19/2024 1 1 * MRI/CT (Routine) - Authorized Specialty Diagnoses / Procedures Referred By Contac t Referred To Contact MR IMAGING Diagnoses Transient cerebral ischemia, unspecified type Procedures MRI BRAIN WO IVCON MRI BRAIN BRAIN STEM W/O CONTRAST MATERIAL Shaye Kitchen Jr., MD [address] [facility] [address] [place] [address] [place] [address] Referral ID Status Reason Start Date Expiration Date Visits Requested Visits Authorized [id number] Authorized Auto-Generat ed Referral 11/20/2023 12/19/2024 1 1 [facility] Diagnostic Procedure Only (Routine) - Closed Specialty Diagnoses / Procedures Referred By Contac t Referred To Contact XR IMAGING Diagnoses Pain of left heel Procedures XR FOOT GENERAL 3V AP/LAT/OBL LEFT RADEX FOOT COMPLETE MINIMUM 3 VIEWS Danita Meraz PA-C [address] [place] [address] [place] [address] Referral ID Status Reason Start Date Expiration Date V isits Requested Visits Authorized [id number] Closed Auto-Generate d Referral 03/04/2024 04/03/2025 1 1 [facility] for referral (narrative)* Diagnostic Procedure Only (Routine) - Closed Specialty Diagnoses / Procedures Referred By Contac t Referred To Contact XR IMAGING Diagnoses Pain of left heel Procedures XR FOOT GENERAL 3V AP/LAT/OBL LEFT RADEX FOOT COMPLETE MINIMUM 3 VIEWS Danita Meraz PA-C [address] [place] [address] [place] [address] Referral ID Status Reason Start Date Expiration Date V isits Requested Visits Authorized [id number] Closed Auto-Generate d Referral 03/04/2024 04/03/2025 1 1 [facility] for referral (narrative)* Diagnostic Procedure Only (Routine) - New Request Specialty Diagnoses / Procedures Referred By Contac t Referred To Contact XR IMAGING Diagnoses Pain of finger of left hand Procedures XR DIGIT GENERAL 3V FRONTAL/LAT/OBL LEFT RADEX FINGR MINIMUM 2 VIEWS Amanda Montana PA-C [address] [place] [address] [place] [address] Referral ID Status Reason Start Date Expiration Date Visits Requested Visits Authorized [id number] New Request Auto-Generat ed Referral 06/28/2024 07/28/2025 1 1 [facility] for referral (narrative)* Diagnostic Procedure Only (Urgent) - Closed Specialty Diagnoses / Procedures Referred By Contac t Referred To Contact XR IMAGING Diagnoses Hand injury, right, initial encounter Procedures XR HAND GENERAL 3V PA/LAT/OBL RT X-RAY HAND MINIMUM 3 VIEWS Adama Colón APRN.[employer] [address] [place] [address] [place] [address] Referral ID Status Reason Start Date Expiration Date V isits Requested Visits Authorized [id number] Closed Auto-Generate d Referral 05/18/2021 06/17/2022 1 1 [facility] for referral (narrative)* Diagnostic Procedure Only (Routine) - Closed Specialty Diagnoses / Procedures Referred By Contac t Referred To Contact XR IMAGING Diagnoses Hand pain, right Procedures XR HAND GENERAL 3V PA/LAT/OBL RT X-RAY HAND MINIMUM 3 VIEWS Adama Mendoza MD [address] [place], [place] [id number] [place] [address] Referral ID Status Reason Start Date Expiration Date V isits Requested Visits Authorized [id number] Closed Auto-Generate d Referral 06/19/2021 07/19/2022 1 1 [facility] for referral (narrative)* Diagnostic Procedure Only (Routine) - Authorized Specialty Diagnoses / Procedures Referred By Contac t Referred To Contact US IMAGING Diagnoses Mass of subcutaneous tissue of back Procedures US CHEST WALL/SOFT TISSUE US CHEST REAL TIME W/IMAGE DOCUMENTATION Danita Meraz PA-C [address] [place] [address] [place] [address] Referral ID Status Reason Start Date Expiration Date Visits Requested Visits Authorized [id number] Authorized Auto-Generat ed Referral 08/20/2025 1 1 [facility] for referral (narrative)No reason for referral information availableFranc[facility] Work Phone: Reason for visit Narrative* Diagnostic Procedure Only (Routine) - Closed Specialty Diagnoses / Procedures Referred By Contac t Referred To Contact XR IMAGING Diagnoses Pain of left heel Procedures XR FOOT GENERAL 3V AP/LAT/OBL LEFT RADEX FOOT COMPLETE MINIMUM 3 VIEWS Danita Meraz PA-C [address] [place] [address] [place] [address] Referral ID Status Reason Start Date Expiration Date V isits Requested Visits Authorized [id number] Closed Auto-Generate d Referral 03/04/2024 04/03/2025 1 1 [facility] for visit Narrative* Diagnostic Procedure Only (Urgent) - Closed Specialty Diagnoses / Procedures Referred By Contac t Referred To Contact XR IMAGING Diagnoses Hand injury, right, initial encounter Procedures XR HAND GENERAL 3V PA/LAT/OBL RT X-RAY HAND MINIMUM 3 VIEWS Adama Colón APRN.HANGER OFF [address] [place] [address] X[facility] Imaging [facility] Referral ID Status Reason Start Date Expiration Date V isits Requested Visits Authorized [id number] Closed Auto-Generate d Referral 05/18/2021 06/17/2022 1 1 [facility] for visit Narrative* Diagnostic Procedure Only (Routine) - Closed Specialty Diagnoses / Procedures Referred By Contac t Referred To Contact XR IMAGING Diagnoses Hand pain, right Procedures XR HAND GENERAL 3V PA/LAT/OBL RT X-RAY HAND MINIMUM 3 VIEWS Adama Mendoza MD [address] [place] [address] X[place] [address] Referral ID Status Reason Start Date Expiration Date V isits Requested Visits Authorized [id number] Closed Auto-Generate d Referral 06/19/2021 07/19/2022 1 1 [facility] for visit Narrative* Outpatient Procedure (Routine) - Closed Specialty Diagnoses / Procedures Referred By Contac t Referred To Contact [facility] Diagnoses Seizure (HCC) Altered mental status, unspecified altered mental status type Procedures EPIL EEG ROUTINE ELECTROENCEPHALOGRAM REC COMA/SLEEP ONLY Shaye Kitchen Jr., MD [address] [address] [facility] [place] [address] [place] [id number] Referral ID Status Reason Start Date Expiration Date V isits Requested Visits Authorized [id number] Closed Auto-Generate d Referral 11/20/2023 11/20/2024 1 1 [facility] for visit Narrative* Diagnostic Procedure Only (Routine) - Closed Specialty Diagnoses / Procedures Referred By Contac t Referred To Contact XR IMAGING Diagnoses Left hip pain Procedures XR HIP GENERAL 3V PELV/AP/LAT LEFT RADEX HIP UNILATERAL WITH PELVIS 2-3 VIEWS Adama Mendoza MD [address] [place] [address] [place] [address] Referral ID Status Reason Start Date Expiration Date V isits Requested Visits Authorized [id number] Closed Auto-Generate d Referral 09/10/2024 10/10/2025 1 1 [facility] for visit Narrative* Diagnostic Procedure Only (Urgent) - Closed Specialty Diagnoses / Procedures Referred By Contac t Referred To Contact XR IMAGING Diagnoses Fall, initial encounter Right arm pain Procedures XR WRIST GENERAL 3V PA/LAT/OBL RIGHT RADEX WRIST COMPLETE MINIMUM 3 VIEWS Claude Cardenas APRN.CNP [address] [place] [address] Phone: tel: fax: [place] [address] Referral ID Status Reason Start Date Expiration Date V isits Requested Visits Authorized [id number] Closed Auto-Generate d Referral 01/09/2025 02/08/2026 1 1 [facility] Summary Purpose Family History No Family History Records Found Relationship Condition Age at Onset Recorded Date/T zeke sister Coronary artery disease Unknown mother Coronary artery disease Unknown father Malignant neoplasm of colon Unknown brother Coronary artery disease Unknown Advance Directives No Advanced Directives Records FoundDocuments on File Type Date Recorded Patient Software Test Specialist Expl anation Advance Directive(s) 07/28/2018 6:25 AM Date Activated Date Inactivated Comments 10/15/2024 5:22 PM 10/20/2024 6:32 PM Question Answer Comments Full Code Order Discussed With: Surrogate Decisi on Maker Surrogate Decision Maker Name: Son Surrogate Decision Maker Relationship: M ajority of Adult Children (registered representative) Documents on File Type Date Recorded Patient Software Test Specialist Expl anation Advance Directive(s) Advance Directive(s) 08/10/2020 12:16 PM Advance Directive(s) 07/28/2018 6:25 AM S canned [id number] Advance Directive(s) 07/28/2018 9:30 AM Advance Directive(s) 07/28/2018 6:25 AM Documents on File Type Date Recorded Patient Software Test Specialist Expl anation Advance Directive(s) Advance Directive(s) 08/10/2020 12:16 PM Advance Directive(s) 07/28/2018 6:25 AM S canned [id number] Advance Directive(s) 07/28/2018 9:30 AM Advance Directive(s) 07/28/2018 6:25 AM Advance Directive Response Recorded Date/ Time Advance Directives Yes October 15, 2020 8:02am Living Will Yes July 24 4:16pm Power of Systems Architecture Analyst Yes July 24, 2022 4:16pm Name of Medical Power of Systems Architecture Analyst sonjeff July 24, 2022 4:16p m Documents on File Type Date Recorded Patient Software Test Specialist Expl anation Advance Directive(s) 07/28/2018 6:25 AM Advance Directive Response Recorded Date/ Time Advance Directives Yes October 15, 2020 8:02am Living Will Yes June 17, 2023 1:35pm Power of Systems Architecture Analyst Yes June 1:35pm Name of Medical Power of Systems Architecture Analyst REFUGIO HACKWOR TH June 17, 2023 1:35pm Advance Directive Response Recorded Date/ Time Name of Medical Power of Systems Architecture Analyst REFUGIO HACKWOR TH June 17, 2023 12:35pm Name of Medical Power of Systems Architecture Analyst refugio hackwor th September 26, 2023 11:03am Advance Directives Yes October 15, 2020 7:02am Living Will Yes September 26, 11:03am Power of Systems Architecture Analyst Yes September 26, 2023 11:03am Date Activated Date Inactivated Comments 10/22/2024 11:10 PM Date Activated Date Inactivated Comments 10/15/2024 5:22 PM 10/20/2024 6:32 PM Question Answer Comments Full Code Order Discussed With: Surrogate Decisi on Maker Surrogate Decision Maker Name: Son Surrogate Decision Maker Relationship: M ajority of Adult Children (registered representative) Date Activated Date Inactivated Comments 10/22/2024 11:10 PM 11/13/2024 10:39 AM Date Activated Date Inactivated Comments 10/22/2024 11:10 PM 11/13/2024 10:39 AM Date Activated Date Inactivated Comments 10/15/2024 5:22 PM 10/20/2024 6:32 PM Question Answer Comments Full Code Order Discussed With: Surrogate Decisi on Maker Surrogate Decision Maker Name: Son Surrogate Decision Maker Relationship: M ajority of Adult Children (registered representative) Advance Directive Response Recorded Date/ Time Living Will Yes September 26 12:03pm Do you have a Healthcare Power of Systems Architecture Analyst? Yes September 26, 2023 12:03pm Advance Directives Yes October 15, 2020 8:02am Reason for Referral Specialty Diagnoses / Procedures Referred By Contac t Referred To Contact General Surgery Diagnoses Skin lump of arm, right Procedures CONSULT TO GENERAL SURGERY OFFICE/OUTPATIENT [facility] 60-74 MINUTES Danita Meraz PA-C [address] [place] [address] Referral ID Status Reason Start Date Expiration Date Visits Requested Visits Authorized [id number] Authorized PCP Requested Referral 04/02/2022 04/02/2023 1 1 Specialty Diagnoses / Procedures Referred By Contac t Referred To Contact Orthopedics Diagnoses Dislocation of right shoulder joint, initial encounter Procedures CONSULT TO ORTHOPAEDICS OFFICE/OUTPATIENT [facility] 60-74 MINUTES Adama Mendoza MD [address] [place] [address] Referral ID Status Reason Start Date Expiration Date Visits Requested Visits Authorized [id number] Authorized PCP Requested Referral 2 07/28/2023 1 1 Specialty Diagnoses / Procedures Referred By Contac t Referred To Contact [facility] Diagnoses Anterior dislocation of right shoulder, subsequent encounter 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, subsequent encounter Procedures CONSULT TO PHYSICAL THERAPY PHYSICAL THERAPY EVALUATION HIGH COMPLEX 45 MINS Robert Cmobs MD [address] [place] [address] [facility] [place] [address] [place] [address] Referral ID Status Reason Start Date Expiration Date Visits Requested Visits Authorized [id number] Authorized PCP Requested Referral Auto-Generate d Referral 10/27/2022 10/27/2023 99 99 Specialty Diagnoses / Procedures Referred By Contac t Referred To Contact MR IMAGING Diagnoses Urinary incontinence, unspecified type Altered mental status, unspecified altered mental status type History of CVA (cerebrovascular accident) Other specified transient cerebral ischemias Procedures MRI BRAIN WO IVCON MRI BRAIN BRAIN STEM W/O CONTRAST MATERIAL Adaam Mendoza MD [address] [place] [address] [place] [address] Referral ID Status Reason Start Date Expiration Date Visits Requested Visits Authorized [id number] Pending Review Auto-Generat ed Referral 06/23/2023 07/22/2024 1 1 Specialty Diagnoses / Procedures Referred By Contac t Referred To Contact MR IMAGING Diagnoses Transient cerebral ischemia, unspecified type Procedures MRI BRAIN WO IVCON MRI BRAIN BRAIN STEM W/O CONTRAST MATERIAL Shaye Kitchen Jr., MD [address] [facility] [address] [place] [address] [place] [address] Referral ID Status Reason Start Date Expiration Date V isits Requested Visits Authorized [id number] Closed Auto-Generate d Referral 11/20/2023 12/19/2024 1 1 Specialty Diagnoses / Procedures Referred By Contac t Referred To Contact MR IMAGING Diagnoses Transient cerebral ischemia, unspecified type Procedures MRA BRAIN WO IVCON MRA, HEAD W/O CONTRAST Shaye Kitchen Jr., MD [facility] [address] [address] [place] [address] [place] [address] Referral ID Status Reason Start Date Expiration Date V isits Requested Visits Authorized [id number] Closed Auto-Generate d Referral 11/20/2023 12/19/2024 1 1 Specialty Diagnoses / Procedures Referred By Contac t Referred To Contact MR IMAGING Diagnoses Transient cerebral ischemia, unspecified type Procedures MRA CAROTID WO IVCON MRA, NECK; W/O CONTRAST Shaye Kitchen Jr., MD [facility] [address] [place] [address] [place] [address] Referral ID Status Reason Start Date Expiration Date V isits Requested Visits Authorized [id number] Closed Auto-Generate d Referral 11/20/2023 12/19/2024 1 1 Specialty Diagnoses / Procedures Referred By Contac t Referred To Contact Podiatry Diagnoses Pain of left heel Procedures CONSULT TO PODIATRY OFFICE/OUTPATIENT [facility] MDM 60 MINUTES Danita Meraz PA-C [address] [place] [address] Referral ID Status Reason Start Date Expiration Date Visits Requested Visits Authorized [id number] Authorized PCP Requested Referral 03/04/2024 03/04/2025 1 1 Specialty Diagnoses / Procedures Referred By Contac t Referred To Contact General Surgery Diagnoses Mass of subcutaneous tissue of back Procedures CONSULT TO GENERAL SURGERY OFFICE/OUTPATIENT [facility] MDM 60 MINUTES Danita Meraz PA-C [address] [place] [address] Referral ID Status Reason Start Date Expiration Date Visits Requested Visits Authorized [id number] Authorized PCP Requested Referral 08/01/2025 1 1 Specialty Diagnoses / Procedures Referred By Contac t Referred To Contact [facility] Diagnoses Left hip pain Procedures CONSULT TO PHYSICAL THERAPY PHYSICAL THERAPY EVALUATION HIGH COMPLEX 45 MINS Adama Mendoza MD [address] [place] [address] [facility] [place] [address] [place] [address] Referral ID Status Reason Start Date Expiration Date Visits Requested Visits Authorized [id number] Authorized PCP Requested Referral Auto-Generate d Referral 09/10/2024 09/10/2025 99 99 Specialty Diagnoses / Procedures Referred By Contac t Referred To Contact XR IMAGING Diagnoses Left hip pain Procedures XR HIP GENERAL 3V PELV/AP/LAT LEFT RADEX HIP UNILATERAL WITH PELVIS 2-3 VIEWS Adama Mendoza MD [address] [place] [address] [place] [address] Referral ID Status Reason Start Date Expiration Date V isits Requested Visits Authorized [id number] Closed Auto-Generate d Referral 09/10/2024 10/10/2025 1 1 Specialty Diagnoses / Procedures Referred By Contac t Referred To Contact MR IMAGING Diagnoses Transient cerebral ischemia, unspecified type Procedures MRI BRAIN WO IVCON MRI BRAIN BRAIN STEM W/O CONTRAST MATERIAL Margaret Ardon, SOLID PROPELLANT PROCESSOR.HANGER OFF [address] [place] [address] [place] [address] Referral ID Status Reason Start Date Expiration Date Visits Requested Visits Authorized [id number] Authorized Auto-Generat ed Referral 10/14/2024 11/13/2025 1 1 Specialty Diagnoses / Procedures Referred By Contac t Referred To Contact [facility] Diagnoses Transient cerebral ischemia, unspecified type Procedures ECG COMPLETE ECG ROUTINE ECG W/LEAST 12 LDS W/I&R Margaret Ardon, SOLID PROPELLANT PROCESSOR.HANGER OFF [address] [place] [address] [facility] [address] [place] [address] Referral ID Status Reason Start Date Expiration Date V isits Requested Visits Authorized [id number] Closed Auto-Generate d Referral 10/14/2024 10/14/2025 1 1 Chief Complaint and Reason for Visit Chief Complaint fall Chief Complaint CONFUSION Chief Complaint CONFUSION Altered mental status, unspecified alt loc Chief Complaint Admit Date 1 y fu w INFORMATICA per INFORMATICA June 23 1:47pm Reason for Visit Admit [...] section and content) DATE CREATED AUTHOR 03/29/2018 [facility] DATE CREATED AUTHOR AUTHOR'S ORGANIZ ATION 03/29/2018 [facility] DATE CREATED AUTHOR AUTHOR'S ORGANIZ ATION 03/30/2018 [facility] DATE CREATED AUTHOR AUTHOR'S ORGANIZ ATION 08/18/2019 [facility] DATE CREATED AUTHOR AUTHOR'S ORGANIZ ATION 10/23/2024 [facility] DATE CREATED AUTHOR AUTHOR'S ORGANIZ ATION 06/24/2025 [facility] DATE CREATED AUTHOR AUTHOR'S ORGANCLARA ATION 07/21/2025 [facility] Source Comments (unrecognize d section and content) In the event this informatio n is protected by the Federal Confidentiality of Alcohol and Drug Abuse Patient Records regulations: The Federal rules restrict any use of the information to criminally investigate or prosecute any alcohol or drug abuse patient.[facility] the event this information is protected by the Federal Confidentiality of Alcohol and Drug Abuse Patient Records regulations: The Federal rules restrict any use of the information to criminally investigate or prosecute any alcohol or drug abuse patient.[facility] the event this information is protected by the Federal Confidentiality of Alcohol and Drug Abuse Patient Records regulations: The Federal rules restrict any use of the information to criminally investigate or prosecute any alcohol or drug abuse patient.[facility] the event this information is protected by the Federal Confidentiality of Alcohol and Drug Abuse Patient Records regulations: The Federal rules restrict any use of the information to criminally investigate or prosecute any alcohol or drug abuse patient.[facility] the event this information is protected by the Federal Confidentiality of Alcohol and Drug Abuse Patient Records regulations: The Federal rules restrict any use of the information to criminally investigate or prosecute any alcohol or drug abuse patient.[facility] the event this information is protected by the Federal Confidentiality of Alcohol and Drug Abuse Patient Records regulations: The Federal rules restrict any use of the information to criminally investigate or prosecute any alcohol or drug abuse patient.[facility] the event this information is protected by the Federal Confidentiality of Alcohol and Drug Abuse Patient Records regulations: The Federal rules restrict any use of the information to criminally investigate or prosecute any alcohol or drug abuse patient.[facility] the event this information is protected by the Federal Confidentiality of Alcohol and Drug Abuse Patient Records regulations: The Federal rules restrict any use of the information to criminally investigate or prosecute any alcohol or drug abuse patient.[facility] the event this information is protected by the Federal Confidentiality of Alcohol and Drug Abuse Patient Records regulations: The Federal rules restrict any use of the information to criminally investigate or prosecute any alcohol or drug abuse patient.[facility]In the event this information is protected by the Federal Confidentiality of Alcohol and Drug Abuse Patient Records regulations: The Federal rules restrict any use of the information to criminally investigate or prosecute any alcohol or drug abuse patient.[facility]In the event this information is protected by the Federal Confidentiality of Alcohol and Drug Abuse Patient Records regulations: The Federal rules restrict any use of the information to criminally investigate or prosecute any alcohol or drug abuse patient.[facility]In the event this information is protected by the Federal Confidentiality of Alcohol and Drug Abuse Patient Records regulations: The Federal rules restrict any use of the information to criminally investigate or prosecute any alcohol or drug abuse patient.[facility]In the event this information is protected by the Federal Confidentiality of Alcohol and Drug Abuse Patient Records regulations: The Federal rules restrict any use of the information to criminally investigate or prosecute any alcohol or drug abuse patient.[facility]In the event this information is protected by the Federal Confidentiality of Alcohol and Drug Abuse Patient Records regulations: The Federal rules restrict any use of the information to criminally investigate or prosecute any alcohol or drug abuse patient.[facility]In the event this information is protected by the Federal Confidentiality of Alcohol and Drug Abuse Patient Records regulations: The Federal rules restrict any use of the information to criminally investigate or prosecute any alcohol or drug abuse patient.[facility]In the event this information is protected by the Federal Confidentiality of Alcohol and Drug Abuse Patient Records regulations: The Federal rules restrict any use of the information to criminally investigate or prosecute any alcohol or drug abuse patient.[facility]In the event this information is protected by the Federal Confidentiality of Alcohol and Drug Abuse Patient Records regulations: The Federal rules restrict any use of the information to criminally investigate or prosecute any alcohol or drug abuse patient.[facility]onIn the event this information is protected by the Federal Confidentiality of Alcohol and Drug Abuse Patient Records regulations: The Federal rules restrict any use of the information to criminally investigate or prosecute any alcohol or drug abuse patient.[facility] [place]onIn the event this information is protected by [...] or prosecute any alcohol or drug abuse patient.[facility]In the event this information is protected by the Federal Confidentiality of Alcohol and Drug Abuse Patient Records regulations: The Federal rules restrict any use of the information to criminally investigate or prosecute any alcohol or drug abuse patient.[facility]In the event this information is protected by the Federal Confidentiality of Alcohol and Drug Abuse Patient Records regulations: The Federal rules restrict any use of the information to criminally investigate or prosecute any alcohol or drug abuse patient.[facility]In the event this information is protected by the Federal Confidentiality of Alcohol and Drug Abuse Patient Records regulations: The Federal rules restrict any use of the information to criminally investigate or prosecute any alcohol or drug abuse patient.[facility]In the event this information is protected by the Federal Confidentiality of Alcohol and Drug Abuse Patient Records regulations: The Federal rules restrict any use of the information to criminally investigate or prosecute any alcohol or drug abuse patient.[facility]In the event this information is protected by the Federal Confidentiality of Alcohol and Drug Abuse Patient Records regulations: The Federal rules restrict any use of the information to criminally investigate or prosecute any alcohol or drug abuse patient.[facility]In the event this information is protected by the Federal Confidentiality of Alcohol and Drug Abuse Patient Records regulations: The Federal rules restrict any use of the information to criminally investigate or prosecute any alcohol or drug abuse patient.[facility]onIn the event this information is protected by the Federal Confidentiality of Alcohol and Drug Abuse Patient Records regulations: The Federal rules restrict any use of the information to criminally investigate or prosecute any alcohol or drug abuse patient.[facility]onIn the event this information is protected by the Federal Confidentiality of Alcohol and Drug Abuse Patient Records regulations: The Federal rules restrict any use of the information to criminally investigate or prosecute any alcohol or drug abuse patient.[facility]onIn the event this information is protected by the Federal Confidentiality of Alcohol and Drug Abuse Patient Records regulations: The Federal rules restrict any use of the information to criminally investigate or prosecute any alcohol or drug abuse patient.[facility]onIn the event this information is protected by the Federal Confidentiality of Alcohol and Drug Abuse Patient Records regulations: The Federal rules restrict any use of the information to criminally investigate or prosecute any alcohol or drug abuse patient.[facility]onIn the event this information is protected by the Federal Confidentiality of Alcohol and Drug Abuse Patient Records regulations: The Federal rules restrict any use of the information to criminally investigate or prosecute any alcohol or drug abuse patient.[facility], [place]In the event this information is protected by the Federal Confidentiality of Alcohol and Drug Abuse Patient Records regulations: The Federal rules restrict any use of the information to criminally investigate or prosecute any alcohol or drug abuse patient.[facility], [place]In the event this information is protected by the Federal Confidentiality of Alcohol and Drug Abuse Patient Records regulations: The Federal rules restrict any use of the information to criminally investigate or prosecute any alcohol or drug abuse patient.[facility], [place]In the event this information is protected by the Federal Confidentiality of Alcohol and Drug Abuse Patient Records regulations: The Federal rules restrict any use of the information to criminally investigate or prosecute any alcohol or drug abuse patient.[facility], [place]In the event this information is protected by the Federal Confidentiality of Alcohol and Drug Abuse Patient Records regulations: The Federal rules restrict any use of the information to criminally investigate or prosecute any alcohol or drug abuse patient.[facility], [place]In the event this information is protected by the Federal Confidentiality of Alcohol and Drug Abuse Patient Records regulations: The Federal rules restrict any use of the information to criminally investigate or prosecute any alcohol or drug abuse patient.[facility], [place]In the event this information is protected by the Federal Confidentiality of Alcohol and Drug Abuse Patient Records regulations: The Federal rules restrict any use of the information to criminally investigate or prosecute any alcohol or drug abuse patient.[facility], [place]In the event this information is protected by the Federal Confidentiality of Alcohol and Drug Abuse Patient Records regulations: The Federal rules restrict any use of the information to criminally investigate or prosecute any alcohol or drug abuse patient.[facility], [place]In the event this information is protected by the Federal Confidentiality of Alcohol and Drug Abuse Patient Records regulations: The Federal rules restrict any use of the information to criminally investigate or prosecute any alcohol or drug abuse patient.[facility], [place]In the event this information is protected by the Federal Confidentiality of Alcohol and Drug Abuse Patient Records regulations: The Federal rules restrict any use of the information to criminally investigate or prosecute any alcohol or drug abuse patient.[facility], [place]In the event this information is protected by the Federal Confidentiality of Alcohol and Drug Abuse Patient Records regulations: The Federal rules restrict any use of the information to criminally investigate or prosecute any alcohol or drug abuse patient.[facility], [place]In the event this information is protected by the Federal Confidentiality of Alcohol and Drug Abuse Patient Records regulations: The Federal rules restrict any use of the information to criminally investigate or prosecute any alcohol or drug abuse patient.[facility], [place]In the event this information is protected by the Federal Confidentiality of Alcohol and Drug Abuse Patient Records regulations: The Federal rules restrict any use of the information to criminally investigate or prosecute any alcohol or drug abuse patient.[facility], [place]In the event this information is protected by the Federal Confidentiality of Alcohol and Drug Abuse Patient Records regulations: The Federal rules restrict any use of the information to criminally investigate or prosecute any alcohol or drug abuse patient.[facility], [place]In the event this information is protected by the Federal Confidentiality of Alcohol and Drug Abuse Patient Records regulations: The Federal rules restrict any use of the information to criminally investigate or prosecute any alcohol or drug abuse patient.[facility], [place]In the event this information is protected by the Federal Confidentiality of Alcohol and Drug Abuse Patient Records regulations: The Federal rules restrict any use of the information to criminally investigate or prosecute any alcohol or drug abuse patient.[facility], [place]In the event this information is protected by the Federal Confidentiality of Alcohol and Drug Abuse Patient Records regulations: The Federal rules restrict any use of the information to criminally investigate or prosecute any alcohol or drug abuse patient.[facility], [place]In the event this information is protected by the Federal Confidentiality of Alcohol and Drug Abuse Patient Records regulations: The Federal rules restrict any use of the information to criminally investigate or prosecute any alcohol or drug abuse patient.[facility], [place]In the event this information is protected by the Federal Confidentiality of Alcohol and Drug Abuse Patient Records regulations: The Federal rules restrict any use of the information to criminally investigate or prosecute any alcohol or drug abuse patient.[facility], [place]In the event this information is protected by the Federal Confidentiality of Alcohol and Drug Abuse Patient Records regulations: The Federal rules restrict any use of the information to criminally investigate or prosecute any alcohol or drug abuse patient.[facility], [place]In the event this information is protected by the Federal Confidentiality of Alcohol and Drug Abuse Patient Records regulations: The Federal rules restrict any use of the information to criminally investigate or prosecute any alcohol or drug abuse patient.[facility], [place]In the event this information is protected by the Federal Confidentiality of Alcohol and Drug Abuse Patient Records regulations: The Federal rules restrict any use of the information to criminally investigate or prosecute any alcohol or drug abuse patient.[facility], [place]In the event this information is protected by the Federal Confidentiality of Alcohol and Drug Abuse Patient Records regulations: The Federal rules restrict any use of the information to criminally investigate or prosecute any alcohol or drug abuse patient.[facility], [place]In the event this information is protected by the Federal Confidentiality of Alcohol and Drug Abuse Patient Records regulations: The Federal rules restrict any use of the information to criminally investigate or prosecute any alcohol or drug abuse patient.[facility], [place]In the event this information is protected by the Federal Confidentiality of Alcohol and Drug Abuse Patient Records regulations: The Federal rules restrict any use of the information to criminally investigate or prosecute any alcohol or drug abuse patient.[facility], [place]In the event this information is protected by the Federal Confidentiality of Alcohol and Drug Abuse Patient Records regulations: The Federal rules restrict any use of the information to criminally investigate or prosecute any alcohol or drug abuse patient.[facility], [place]In the event this information is protected by the Federal Confidentiality of Alcohol and Drug Abuse Patient Records regulations: The Federal rules restrict any use of the information to criminally investigate or prosecute any alcohol or drug abuse patient.[facility], [place]In the event this information is protected by the Federal Confidentiality of Alcohol and Drug Abuse Patient Records regulations: The Federal rules restrict any use of the information to criminally investigate or prosecute any alcohol or drug abuse patient.[facility], [place]In the event this information is protected by the Federal Confidentiality of Alcohol and Drug Abuse Patient Records regulations: The Federal rules restrict any use of the information to criminally investigate or prosecute any alcohol or drug abuse patient.[facility], [place]In the event this information is protected by the Federal Confidentiality of Alcohol and Drug Abuse Patient Records regulations: The Federal rules restrict any use of the information to criminally investigate or prosecute any alcohol or drug abuse patient.[facility], [place]In the event this information is protected by the Federal Confidentiality of Alcohol and Drug Abuse Patient Records regulations: The Federal rules restrict any use of the information to criminally investigate or prosecute any alcohol or drug abuse patient.[facility], [place]In the event this information is protected by the Federal Confidentiality of Alcohol and Drug Abuse Patient Records regulations: The Federal rules restrict any use of the information to criminally investigate or prosecute any alcohol or drug abuse patient.[facility], [place]In the event this information is protected by the Federal Confidentiality of Alcohol and Drug Abuse Patient Records regulations: The Federal rules restrict any use of the information to criminally investigate or prosecute any alcohol or drug abuse patient.[facility], [place]In the event this information is protected by the Federal Confidentiality of Alcohol and Drug Abuse Patient Records regulations: The Federal rules restrict any use of the information to criminally investigate or prosecute any alcohol or drug abuse patient.[facility], [place]In the event this information is protected by the Federal Confidentiality of Alcohol and Drug Abuse Patient Records regulations: The Federal rules restrict any use of the information to criminally investigate or prosecute any alcohol or drug abuse patient.[facility], [place]In the event this information is protected by the Federal Confidentiality of Alcohol and Drug Abuse Patient Records regulations: The Federal rules restrict any use of the information to criminally investigate or prosecute any alcohol or drug abuse patient.[facility], [place]In the event this information is protected by the Federal Confidentiality of Alcohol and Drug Abuse Patient Records regulations: The Federal rules restrict any use of the information to criminally investigate or prosecute any alcohol or drug abuse patient.[facility], [place]In the event this information is protected by the Federal Confidentiality of Alcohol and Drug Abuse Patient Records regulations: The Federal rules restrict any use of the information to criminally investigate or prosecute any alcohol or drug abuse patient.[facility], [place]In the event this information is protected by [...] or prosecute any alcohol or drug abuse patient.[facility], [place]In the event this information is protected by the Federal Confidentiality of Alcohol and Drug Abuse Patient Records regulations: The Federal rules restrict any use of the information to criminally investigate or prosecute any alcohol or drug abuse patient.[facility], [place]In the event this information is protected by the Federal Confidentiality of Alcohol and Drug Abuse Patient Records regulations: The Federal rules restrict any use of the information to criminally investigate or prosecute any alcohol or drug abuse patient.[facility], [place]In the event this information is protected by the Federal Confidentiality of Alcohol and Drug Abuse Patient Records regulations: The Federal rules restrict any use of the information to criminally investigate or prosecute any alcohol or drug abuse patient.[facility], [place]In the event this information is protected by the Federal Confidentiality of Alcohol and Drug Abuse Patient Records regulations: The Federal rules restrict any use of the information to criminally investigate or prosecute any alcohol or drug abuse patient.[facility], [place]In the event this information is protected by the Federal Confidentiality of Alcohol and Drug Abuse Patient Records regulations: The Federal rules restrict any use of the information to criminally investigate or prosecute any alcohol or drug abuse patient.[facility], [place]In the event this information is protected by the Federal Confidentiality of Alcohol and Drug Abuse Patient Records regulations: The Federal rules restrict any use of the information to criminally investigate or prosecute any alcohol or drug abuse patient.[facility], [place]In the event this information is protected by the Federal Confidentiality of Alcohol and Drug Abuse Patient Records regulations: The Federal rules restrict any use of the information to criminally investigate or prosecute any alcohol or drug abuse patient.[facility], [place]In the event this information is protected by the Federal Confidentiality of Alcohol and Drug Abuse Patient Records regulations: The Federal rules restrict any use of the information to criminally investigate or prosecute any alcohol or drug abuse patient.[facility], [place]In the event this information is protected by the Federal Confidentiality of Alcohol and Drug Abuse Patient Records regulations: The Federal rules restrict any use of the information to criminally investigate or prosecute any alcohol or drug abuse patient.[facility], [place]In the event this information is protected by the Federal Confidentiality of Alcohol and Drug Abuse Patient Records regulations: The Federal rules restrict any use of the information to criminally investigate or prosecute any alcohol or drug abuse patient.[facility], [place]In the event this information is protected by the Federal Confidentiality of Alcohol and Drug Abuse Patient Records regulations: The Federal rules restrict any use of the information to criminally investigate or prosecute any alcohol or drug abuse patient.[facility], [place]In the event this information is protected by the Federal Confidentiality of Alcohol and Drug Abuse Patient Records regulations: The Federal rules restrict any use of the information to criminally investigate or prosecute any alcohol or drug abuse patient.[facility], [place]In the event this information is protected by the Federal Confidentiality of Alcohol and Drug Abuse Patient Records regulations: The Federal rules restrict any use of the information to criminally investigate or prosecute any alcohol or drug abuse patient.[facility], [place]In the event this information is protected by the Federal Confidentiality of Alcohol and Drug Abuse Patient Records regulations: The Federal rules restrict any use of the information to criminally investigate or prosecute any alcohol or drug abuse patient.[facility], [place]In the event this information is protected by the Federal Confidentiality of Alcohol and Drug Abuse Patient Records regulations: The Federal rules restrict any use of the information to criminally investigate or prosecute any alcohol or drug abuse patient.[facility], [place]In the event this information is protected by the Federal Confidentiality of Alcohol and Drug Abuse Patient Records regulations: The Federal rules restrict any use of the information to criminally investigate or prosecute any alcohol or drug abuse patient.[facility], [place]In the event this information is protected by the Federal Confidentiality of Alcohol and Drug Abuse Patient Records regulations: The Federal rules restrict any use of the information to criminally investigate or prosecute any alcohol or drug abuse patient.[facility], [place]In the event this information is protected by the Federal Confidentiality of Alcohol and Drug Abuse Patient Records regulations: The Federal rules restrict any use of the information to criminally investigate or prosecute any alcohol or drug abuse patient.[facility], [place]In the event this information is protected by the Federal Confidentiality of Alcohol and Drug Abuse Patient Records regulations: The Federal rules restrict any use of the information to criminally investigate or prosecute any alcohol or drug abuse patient.[facility], [place]In the event this information is protected by the Federal Confidentiality of Alcohol and Drug Abuse Patient Records regulations: The Federal rules restrict any use of the information to criminally investigate or prosecute any alcohol or drug abuse patient.[facility], [place]In the event this information is protected by the Federal Confidentiality of Alcohol and Drug Abuse Patient Records regulations: The Federal rules restrict any use of the information to criminally investigate or prosecute any alcohol or drug abuse patient.[facility], [place]In the event this information is protected by the Federal Confidentiality of Alcohol and Drug Abuse Patient Records regulations: The Federal rules restrict any use of the information to criminally investigate or prosecute any alcohol or drug abuse patient.[facility], [place]In the event this information is protected by the Federal Confidentiality of Alcohol and Drug Abuse Patient Records regulations: The Federal rules restrict any use of the information to criminally investigate or prosecute any alcohol or drug abuse patient.[facility], [place]In the event this information is protected by the Federal Confidentiality of Alcohol and Drug Abuse Patient Records regulations: The Federal rules restrict any use of the information to criminally investigate or prosecute any alcohol or drug abuse patient.[facility], [place]In the event this information is protected by the Federal Confidentiality of Alcohol and Drug Abuse Patient Records regulations: The Federal rules restrict any use of the information to criminally investigate or prosecute any alcohol or drug abuse patient.[facility], [place]In the event this information is protected by the Federal Confidentiality of Alcohol and Drug Abuse Patient Records regulations: The Federal rules restrict any use of the information to criminally investigate or prosecute any alcohol or drug abuse patient.[facility], [place]In the event this information is protected by the Federal Confidentiality of Alcohol and Drug Abuse Patient Records regulations: The Federal rules restrict any use of the information to criminally investigate or prosecute any alcohol or drug abuse patient.[facility], [place]In the event this information is protected by the Federal Confidentiality of Alcohol and Drug Abuse Patient Records regulations: The Federal rules restrict any use of the information to criminally investigate or prosecute any alcohol or drug abuse patient.[facility], [place]In the event this information is protected by the Federal Confidentiality of Alcohol and Drug Abuse Patient Records regulations: The Federal rules restrict any use of the information to criminally investigate or prosecute any alcohol or drug abuse patient.[facility], [place]In the event this information is protected by the Federal Confidentiality of Alcohol and Drug Abuse Patient Records regulations: The Federal rules restrict any use of the information to criminally investigate or prosecute any alcohol or drug abuse patient.[facility], [place]In the event this information is protected by the Federal Confidentiality of Alcohol and Drug Abuse Patient Records regulations: The Federal rules restrict any use of the information to criminally investigate or prosecute any alcohol or drug abuse patient.[facility], [place]In the event this information is protected by the Federal Confidentiality of Alcohol and Drug Abuse Patient Records regulations: The Federal rules restrict any use of the information to criminally investigate or prosecute any alcohol or drug abuse patient.[facility], [place]In the event this information is protected by the Federal Confidentiality of Alcohol and Drug Abuse Patient Records regulations: The Federal rules restrict any use of the information to criminally investigate or prosecute any alcohol or drug abuse patient.[facility], [place]In the event this information is protected by the Federal Confidentiality of Alcohol and Drug Abuse Patient Records regulations: The Federal rules restrict any use of the information to criminally investigate or prosecute any alcohol or drug abuse patient.[facility], [place]In the event this information is protected by the Federal Confidentiality of Alcohol and Drug Abuse Patient Records regulations: The Federal rules restrict any use of the information to criminally investigate or prosecute any alcohol or drug abuse patient.[facility], [place]In the event this information is protected by the Federal Confidentiality of Alcohol and Drug Abuse Patient Records regulations: The Federal rules restrict any use of the information to criminally investigate or prosecute any alcohol or drug abuse patient.[facility], [place]In the event this information is protected by the Federal Confidentiality of Alcohol and Drug Abuse Patient Records regulations: The Federal rules restrict any use of the information to criminally investigate or prosecute any alcohol or drug abuse patient.[facility], [place]In the event this information is protected by the Federal Confidentiality of Alcohol and Drug Abuse Patient Records regulations: The Federal rules restrict any use of the information to criminally investigate or prosecute any alcohol or drug abuse patient.[facility], [place]onIn the event this information is protected by the Federal Confidentiality of Alcohol and Drug Abuse Patient Records regulations: The Federal rules restrict any use of the information to criminally investigate or prosecute any alcohol or drug abuse patient.[facility], [place]onIn the event this information is protected by the Federal Confidentiality of Alcohol and Drug Abuse Patient Records regulations: The Federal rules restrict any use of the information to criminally investigate or prosecute any alcohol or drug abuse patient.[facility], [place]onIn the event this information is protected by the Federal Confidentiality of Alcohol and Drug Abuse Patient Records regulations: The Federal rules restrict any use of the information to criminally investigate or prosecute any alcohol or drug abuse patient.[facility], [place]onIn the event this information is protected by the Federal Confidentiality of Alcohol and Drug Abuse Patient Records regulations: The Federal rules restrict any use of the information to criminally investigate or prosecute any alcohol or drug abuse patient.[facility], [place]onIn the event this information is protected by the Federal Confidentiality of Alcohol and Drug Abuse Patient Records regulations: The Federal rules restrict any use of the information to criminally investigate or prosecute any alcohol or drug abuse patient.[facility], [place]onIn the event this information is protected by the Federal Confidentiality of Alcohol and Drug Abuse Patient Records regulations: The Federal rules restrict any use of the information to criminally investigate or prosecute any alcohol or drug abuse patient.[facility], [place]onIn the event this information is protected by the Federal Confidentiality of Alcohol and Drug Abuse Patient Records regulations: The Federal rules restrict any use of the information to criminally investigate or prosecute any alcohol or drug abuse patient.[facility], [place]onIn the event this information is protected by the Federal Confidentiality of Alcohol and Drug Abuse Patient Records regulations: The Federal rules restrict any use of the information to criminally investigate or prosecute any alcohol or drug abuse patient.[facility], [place]onIn the event this information is protected by the Federal Confidentiality of Alcohol and Drug Abuse Patient Records regulations: The Federal rules restrict any use of the information to criminally investigate or prosecute any alcohol or drug abuse patient.[facility], [place]onIn the event this information is protected by the Federal Confidentiality of Alcohol and Drug Abuse Patient Records regulations: The Federal rules restrict any use of the information to criminally investigate or prosecute any alcohol or drug abuse patient.[facility], [place]onIn the event this information is protected by [...] or prosecute any alcohol or drug abuse patient.[facility], [place]onIn the event this information is protected by the Federal Confidentiality of Alcohol and Drug Abuse Patient Records regulations: The Federal rules restrict any use of the information to criminally investigate or prosecute any alcohol or drug abuse patient.[facility], [place]onIn the event this information is protected by the Federal Confidentiality of Alcohol and Drug Abuse Patient Records regulations: The Federal rules restrict any use of the information to criminally investigate or prosecute any alcohol or drug abuse patient.[facility], [place]onIn the event this information is protected by the Federal Confidentiality of Alcohol and Drug Abuse Patient Records regulations: The Federal rules restrict any use of the information to criminally investigate or prosecute any alcohol or drug abuse patient.[facility], [place]onIn the event this information is protected by the Federal Confidentiality of Alcohol and Drug Abuse Patient Records regulations: The Federal rules restrict any use of the information to criminally investigate or prosecute any alcohol or drug abuse patient.[facility], [place]onIn the event this information is protected by the Federal Confidentiality of Alcohol and Drug Abuse Patient Records regulations: The Federal rules restrict any use of the information to criminally investigate or prosecute any alcohol or drug abuse patient.[facility], [place]onIn the event this information is protected by the Federal Confidentiality of Alcohol and Drug Abuse Patient Records regulations: The Federal rules restrict any use of the information to criminally investigate or prosecute any alcohol or drug abuse patient.[facility], [place]onIn the event this information is protected by the Federal Confidentiality of Alcohol and Drug Abuse Patient Records regulations: The Federal rules restrict any use of the information to criminally investigate or prosecute any alcohol or drug abuse patient.[facility], [place]onIn the event this information is protected by the Federal Confidentiality of Alcohol and Drug Abuse Patient Records regulations: The Federal rules restrict any use of the information to criminally investigate or prosecute any alcohol or drug abuse patient.[facility], [place]onIn the event this information is protected by the Federal Confidentiality of Alcohol and Drug Abuse Patient Records regulations: The Federal rules restrict any use of the information to criminally investigate or prosecute any alcohol or drug abuse patient.[facility], [place]onIn the event this information is protected by the Federal Confidentiality of Alcohol and Drug Abuse Patient Records regulations: The Federal rules restrict any use of the information to criminally investigate or prosecute any alcohol or drug abuse patient.[facility], [place]onIn the event this information is protected by the Federal Confidentiality of Alcohol and Drug Abuse Patient Records regulations: The Federal rules restrict any use of the information to criminally investigate or prosecute any alcohol or drug abuse patient.[facility], [place]onIn the event this information is protected by the Federal Confidentiality of Alcohol and Drug Abuse Patient Records regulations: The Federal rules restrict any use of the information to criminally investigate or prosecute any alcohol or drug abuse patient.[facility], [place]onIn the event this information is protected by the Federal Confidentiality of Alcohol and Drug Abuse Patient Records regulations: The Federal rules restrict any use of the information to criminally investigate or prosecute any alcohol or drug abuse patient.[facility], [place]onIn the event this information is protected by the Federal Confidentiality of Alcohol and Drug Abuse Patient Records regulations: The Federal rules restrict any use of the information to criminally investigate or prosecute any alcohol or drug abuse patient.[facility], [place]onIn the event this information is protected by the Federal Confidentiality of Alcohol and Drug Abuse Patient Records regulations: The Federal rules restrict any use of the information to criminally investigate or prosecute any alcohol or drug abuse patient.[facility], [place]onIn the event this information is protected by the Federal Confidentiality of Alcohol and Drug Abuse Patient Records regulations: The Federal rules restrict any use of the information to criminally investigate or prosecute any alcohol or drug abuse patient.[facility], [place]onIn the event this information is protected by the Federal Confidentiality of Alcohol and Drug Abuse Patient Records regulations: The Federal rules restrict any use of the information to criminally investigate or prosecute any alcohol or drug abuse patient.[facility], [place]onIn the event this information is protected by the Federal Confidentiality of Alcohol and Drug Abuse Patient Records regulations: The Federal rules restrict any use of the information to criminally investigate or prosecute any alcohol or drug abuse patient.[facility], [place]onIn the event this information is protected by the Federal Confidentiality of Alcohol and Drug Abuse Patient Records regulations: The Federal rules restrict any use of the information to criminally investigate or prosecute any alcohol or drug abuse patient.[facility], [place]onIn the event this information is protected by the Federal Confidentiality of Alcohol and Drug Abuse Patient Records regulations: The Federal rules restrict any use of the information to criminally investigate or prosecute any alcohol or drug abuse patient.[facility], [place]onIn the event this information is protected by the Federal Confidentiality of Alcohol and Drug Abuse Patient Records regulations: The Federal rules restrict any use of the information to criminally investigate or prosecute any alcohol or drug abuse patient.[facility], [place]onIn the event this information is protected by the Federal Confidentiality of Alcohol and Drug Abuse Patient Records regulations: The Federal rules restrict any use of the information to criminally investigate or prosecute any alcohol or drug abuse patient.[facility], [place]onIn the event this information is protected by the Federal Confidentiality of Alcohol and Drug Abuse Patient Records regulations: The Federal rules restrict any use of the information to criminally investigate or prosecute any alcohol or drug abuse patient.[facility], [place]onIn the event this information is protected by the Federal Confidentiality of Alcohol and Drug Abuse Patient Records regulations: The Federal rules restrict any use of the information to criminally investigate or prosecute any alcohol or drug abuse patient.[facility], [place]onIn the event this information is protected by the Federal Confidentiality of Alcohol and Drug Abuse Patient Records regulations: The Federal rules restrict any use of the information to criminally investigate or prosecute any alcohol or drug abuse patient.[facility], [place]onIn the event this information is protected by the Federal Confidentiality of Alcohol and Drug Abuse Patient Records regulations: The Federal rules restrict any use of the information to criminally investigate or prosecute any alcohol or drug abuse patient.[facility], [place]onIn the event this information is protected by the Federal Confidentiality of Alcohol and Drug Abuse Patient Records regulations: The Federal rules restrict any use of the information to criminally investigate or prosecute any alcohol or drug abuse patient.[facility], [place]onIn the event this information is protected by the Federal Confidentiality of Alcohol and Drug Abuse Patient Records regulations: The Federal rules restrict any use of the information to criminally investigate or prosecute any alcohol or drug abuse patient.[facility], [place]onIn the event this information is protected by the Federal Confidentiality of Alcohol and Drug Abuse Patient Records regulations: The Federal rules restrict any use of the information to criminally investigate or prosecute any alcohol or drug abuse patient.[facility], [place]onIn the event this information is protected by the Federal Confidentiality of Alcohol and Drug Abuse Patient Records regulations: The Federal rules restrict any use of the information to criminally investigate or prosecute any alcohol or drug abuse patient.[facility], [place]onIn the event this information is protected by the Federal Confidentiality of Alcohol and Drug Abuse Patient Records regulations: The Federal rules restrict any use of the information to criminally investigate or prosecute any alcohol or drug abuse patient.[facility], [place]onIn the event this information is protected by the Federal Confidentiality of Alcohol and Drug Abuse Patient Records regulations: The Federal rules restrict any use of the information to criminally investigate or prosecute any alcohol or drug abuse patient.[facility], [place]onIn the event this information is protected by the Federal Confidentiality of Alcohol and Drug Abuse Patient Records regulations: The Federal rules restrict any use of the information to criminally investigate or prosecute any alcohol or drug abuse patient.[facility], [place]onIn the event this information is protected by the Federal Confidentiality of Alcohol and Drug Abuse Patient Records regulations: The Federal rules restrict any use of the information to criminally investigate or prosecute any alcohol or drug abuse patient.[facility], [place]onIn the event this information is protected by the Federal Confidentiality of Alcohol and Drug Abuse Patient Records regulations: The Federal rules restrict any use of the information to criminally investigate or prosecute any alcohol or drug abuse patient.[facility], [place]onIn the event this information is protected by the Federal Confidentiality of Alcohol and Drug Abuse Patient Records regulations: The Federal rules restrict any use of the information to criminally investigate or prosecute any alcohol or drug abuse patient.[facility], [place]onIn the event this information is protected by the Federal Confidentiality of Alcohol and Drug Abuse Patient Records regulations: The Federal rules restrict any use of the information to criminally investigate or prosecute any alcohol or drug abuse patient.[facility], [place]onIn the event this information is protected by the Federal Confidentiality of Alcohol and Drug Abuse Patient Records regulations: The Federal rules restrict any use of the information to criminally investigate or prosecute any alcohol or drug abuse patient.[facility], [place]onIn the event this information is protected by the Federal Confidentiality of Alcohol and Drug Abuse Patient Records regulations: The Federal rules restrict any use of the information to criminally investigate or prosecute any alcohol or drug abuse patient.[facility], [place]onIn the event this information is protected by the Federal Confidentiality of Alcohol and Drug Abuse Patient Records regulations: The Federal rules restrict any use of the information to criminally investigate or prosecute any alcohol or drug abuse patient.[facility], [place]onIn the event this information is protected by the Federal Confidentiality of Alcohol and Drug Abuse Patient Records regulations: The Federal rules restrict any use of the information to criminally investigate or prosecute any alcohol or drug abuse patient.[facility] [place] Reason for Visit (unrecogniz ed section and content) Reason Comments Established Patient Pain Specialty Diagnoses / Procedures Referred By Opal t Referred To Contact Podiatry Diagnoses Pain of left heel Procedures CONSULT TO PODIATRY OFFICE/OUTPATIENT NEW HIGH MDM 60 MINUTES Danita Meraz PA-C [address] [place] [address] Referral ID Status Reason Start Date Expiration Date V isits Requested Visits Authorized [id number] Closed PCP Requested Referral 03/04/2024 03/04/2025 1 1 Reason Comments PT Discharge Specialty Diagnoses / Procedures Referred By Opal t Referred To Contact [facility] Diagnoses Anterior dislocation of right shoulder, subsequent encounter 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, subsequent encounter Procedures CONSULT TO PHYSICAL THERAPY PHYSICAL THERAPY EVALUATION HIGH COMPLEX 45 MINS Robert Combs MD [address] [place] [address] [facility] [place] [address] [place] [address] Referral ID Status Reason Start Date Expiration Date Visits Requested Visits Authorized [id number] Authorized PCP Requested Referral Auto-Generate d Referral [...] HIGH MDM 60-74 MINUTES Danita Meraz PA-C [address] [place] [address] Referral ID Status Reason Start Date Expiration Date V isits Requested Visits Authorized [id number] Closed PCP Requested Referral 04/02/2022 04/02/2023 1 [...] Mental Status Changes Reason Comments ER F/U [facility] ER f/u 06/17/23 d x: COVID [...] Delusions (HCC) Procedures CONSULT TO NEUROLOGY OFFICE/OUTPATIENT [facility] 60 MINUTES Adama Mendoza MD [address] [place] [address] Referral ID Status Reason Start Date Expiration Date V isits Requested Visits Authorized [id number] Closed PCP Requested Referral 10/12/2023 10/11/2024 1 1 Reason Comments Spirometry Specialty Diagnoses / Procedures Referred By Contac t Referred To [facility] Diagnoses Centrilobular emphysema (HCC) Procedures SPIROMETRY WITH DILATOR IF OBSTRUCTED BRNCDILAT RSPSE SPMTRY PRE&POST-BRNCDILAT ADMN Stephany Suarez MD [address] [place] [address] [facility] [place] [address] [place] [address] Referral ID Status Reason Start Date Expiration Date V isits Requested Visits Authorized [id number] Closed Auto-Generate d Referral 12/08/2023 01/06/2025 1 1 Specialty Diagnoses / Procedures Referred By Contac t Referred To Contact [facility] Diagnoses Centrilobular emphysema (HCC) Procedures LUNG DIFFUSION CAPACITY (DLCO) DIFFUSING CAPACITY Stephany Suarez MD [address] [place] [address] [address] Referral ID Status Reason Start Date Expiration Date V isits Requested Visits Authorized [id number] Closed Auto-Generate d Referral 12/08/2023 01/06/2025 1 1 Specialty Diagnoses / Procedures Referred By Contac t Referred To [facility] Diagnoses Centrilobular emphysema (HCC) Procedures LUNG VOLUMES Stephany Suarez MD [address] [place] [address] [address] Referral ID Status Reason Start Date Expiration Date V isits Requested Visits Authorized [id number] Closed Auto-Generate d Referral 12/08/2023 01/06/2025 1 1 Specialty Diagnoses / Procedures Referred By Contac t Referred [facility] Diagnoses Centrilobular emphysema (HCC) Procedures OXIMETRY WITH AMBULATION NONINVASIVE EAR/PULSE OXIMETRY MULTIPLE DETER Stephany Suarez MD [address] [place] [address] [address] Referral ID Status Reason Start Date Expiration Date V isits Requested Visits Authorized [id number] Closed Auto-Generate d Referral 12/08/2023 01/06/2025 1 1 Reason Comments Results PFT Specialty Diagnoses / Procedures Referred By Contac t Referred To Contact [facility] IMAG[facility] Diagnoses Transient cerebral ischemia, unspecified type Procedures MRI BRAIN WO IVCON MRI BRAIN BRAIN STEM W/O CONTRAST MATERIAL Shaye Kitchen Jr., MD [address] [address] [place] [address] Referral ID Status Reason Start Date Expiration Date V isits Requested Visits Authorized [id number] Closed Auto-Generate d Referral 11/20/2023 12/19/2024 1 1 Specialty Diagnoses / Procedures Referred By Contac t Referred To Contact [facility] IM[facility] Diagnoses Transient cerebral ischemia, unspecified type Procedures MRA BRAIN WO IVCON MRA, HEAD W/O CONTRAST Shaye Kitchen Jr., MD [address] [facility] [address] [place] [address] [place] [address] Referral ID Status Reason Start Date Expiration Date V isits Requested Visits Authorized [id number] Closed Auto-Generate d Referral 11/20/2023 12/19/2024 1 1 Specialty Diagnoses / Procedures Referred By Contac t Referred To Contact [facility] IMAG[facility] Diagnoses Transient cerebral ischemia, unspecified type Procedures MRA CAROTID WO IVCON MRA, NECK; W/O CONTRAST Shaye Kitchen Jr., MD [address] [facility] [address] [address] [place] [address] [place] [address] Referral ID Status Reason Start Date Expiration Date V isits Requested Visits Authorized [id number] Closed Auto-Generate d Referral 11/20/2023 12/19/2024 1 1 Reason Comments Forms Reason Comments Consult results Reason Onset Date Comments Refill Request 01/25/2024 Reason Comments Results Reason Comments Pain Left heel pain X cou ple Reason Comments Follow Up Follow up Reason Onset Date Comments Refill Request 03/28/2024 Reason Comments Consult [facility] Reason Comments Established Patient 3 [...] REAL TIME W/IMAGE DOCUMENTATION Danita Meraz PA-C [address] [place] [address] [place] [address] Referral ID Status Reason Start Date Expiration Date V isits Requested Visits Authorized [id number] Closed Auto-Generate d Referral 07/21/2024 08/20/2025 1 1 Reason Comments Imm/Inj Reason Comments Procedure Ultrasound Guided Ne edle Core Biopsy back mass. Reason Comments Consult Mass of back Specialty Diagnoses / Procedures Referred By Contac t Referred To Contact General Surgery Diagnoses Mass of subcutaneous tissue of back Procedures CONSULT TO GENERAL SURGERY OFFICE/OUTPATIENT NEW HIGH MDM 60 MINUTES Danita Meraz PA-C [address] [place] [address] Referral ID Status Reason Start Date Expiration Date V isits Requested Visits Authorized [id number] Closed PCP Requested Referral 08/01/2024 08/01/2025 1 [...] ECG W/LEAST 12 LDS W/I&R Margaret Ardon, SOLID PROPELLANT PROCESSOR.HANGER OFF [address] [place] [address] [facility] [place] [address] [place] [address] Referral ID Status Reason Start Date Expiration Date V isits Requested Visits Authorized [id number] Closed Auto-Generate d Referral 10/14/2024 10/14/2025 1 [...] HIGH COMPLEX 45 MINS Adama Mendoza MD [address] [place] [address] [facility] [place] [address] Referral ID Status Reason Start Date Expiration Date Visits Requested Visits Authorized [id number] Authorized PCP Requested Referral Auto-Generate d Referral [...] Care Teams (unrecognized sec tion and content) Inspector Line Relationship Specialty Start Date End Date Adama Mendoza MD [address] [place] [address] PCP - General Family Practice 10/31/16 Inspector Line Relationship Specialty Start Date End Date Adama Mendoza MD [address] [facility] [place] [address] PCP - General Family Practice 10/31/16 Inspector Line Relationship Specialty Start Date End Date Adama Mendoza MD [address] [place] [address], [place] [address] PCP - General Family Practice 10/31/16 Inspector Line Relationship Specialty Start Date End Date Adama Mendoza MD [address] [place] [address], [place] [address] PCP - General Family Practice 10/31/16 Inspector Line Relationship Specialty Start Date End Date Adama Mendoza MD [address] [place] [address] [place] [address] PCP - General Family Practice 10/31/16 Inspector Line Relationship Specialty Start Date End Date Adama Mendoza MD [address] [place] [address] PCP - General Family Practice 10/31/16 Inspector Line Relationship Specialty Start Date End Date Adama Mendoza MD [address] [place] [address] [place] [address] PCP - General Family Practice 10/31/16 Inspector Line Relationship Specialty Start Date End Date Adama Mendoza MD [address] [place] [address] [place] [address] PCP - General Family Medicine 10/31/16 Inspector Line Relationship Specialty Start Date End Date Adama Mendoza MD [address] [place] [address], [place] [address] PCP - General Family Medicine 10/31/16 Inspector Line Relationship Specialty Start Date End Date Adama Mendoza MD [address] [place] [address] [place] [address] PCP - General Family Medicine 10/31/16 Inspector Line Relationship Specialty Start Date End Date Adama Mendoza MD [address] [facility] [place] [address] PCP - General Family Medicine 10/31/16 Inspector Line Relationship Specialty Start Date End Date Adama Mendoza MD [address] [facility] [place] [address] PCP - General Family Medicine 10/31/16 Inspector Line Relationship Specialty Start Date End Date Adama Mendoza MD [address] [facility] [place] [address] PCP - General Family Medicine 10/31/16 Inspector Line Relationship Specialty Start Date End Date Adama Mendoza MD [facility] [place] [address] PCP - General Family Medicine 10/31/16 Inspector Line Relationship Specialty Start Date End Date Adama Mendoza MD [facility]0 [facility] [place] [address] PCP - General Family Medicine 10/31/16 Inspector Line Relationship Specialty Start Date End Date Adama Mendoza MD [facility]0 [facility] [place] [address] PCP - General Family Medicine 10/31/16 Inspector Line Relationship Specialty Start Date End Date Adama Mendoza MD [facility]0 [facility] [place] [address] PCP - General Family Medicine 10/31/16 Inspector Line Relationship Specialty Start Date End Date Adama Mendoza MD [facility]0 [facility] [place] [address] PCP - General Family Medicine 10/31/16 Inspector Line Relationship Specialty Start Date End Date Adama Mendoza MD [facility]0 [facility] [place] [address] PCP - General Family Medicine 10/31/16 Inspector Line Relationship Specialty Start Date End Date Adama Mendoza MD [address] [facility] [place] [address] PCP - General Family Medicine 10/31/16 Inspector Line Relationship Specialty Start Date End Date Adama Mendoza MD [address] [place] [address] PCP - General Family Medicine 10/31/16 Inspector Line Relationship Specialty Start Date End Date Adama Mendoza MD [address] [place] [address] PCP - General Family Medicine 10/31/16 Inspector Line Relationship Specialty Start Date End Date Adama Mendoza MD [address] [place] [address] PCP - General Family Medicine 10/31/16 Inspector Line Relationship Specialty Start Date End Date Adama Mendoza MD [address] [place] [address] PCP - General Family Medicine 10/31/16 Inspector Line Relationship Specialty Start Date End Date Aadma Mendoza MD [address] [place] [address] PCP - General Family Medicine 10/31/16 Inspector Line Relationship Specialty Start Date End Date Adama Mendoza MD [address] [place] [address] PCP - General Family Medicine 10/31/16 Inspector Line Relationship Specialty Start Date End Date Adama Mendoza MD [address] [place] [address] PCP - General Family Medicine 10/31/16 Inspector Line Relationship Specialty Start Date End Date Adama Mendoza MD [address] [place], [place] 197801 PCP - General Family Medicine 10/31/16 Team Status: Active Member Role Status Dates Dr. Adama Mendoza MD Family Provider Active Dr. Adama Mendoza MD Primary Care Provider Active Team Status: Inactive Member Role Status Dates Dr. Adama Mendoza MD Primary Care Provider Active Harshil Rondon MD Emergency Provider Active Inspector Line Relationship Specialty Start Date End Date Adama Mendoza MD [address] [place] [address] PCP - General Family Medicine 10/31/16 Inspector Line Relationship Specialty Start Date End Date Adama Mendoza MD [address] [place] [address] PCP - General Family Medicine 10/31/16 Inspector Line Relationship Specialty Start Date End Date Adama Mendoza MD [address] [place] [address] PCP - General Family Medicine 10/31/16 Inspector Line Relationship Specialty Start Date End Date Adama Mendoza MD [address] [place] [address] PCP - General Family Medicine 10/31/16 Team [...] Dr. Abelardo Lowe MD Emergency Provider Active Inspector Line Relationship Specialty Start Date End Date Adama Mendoza MD [address] [place] [address] PCP - General Family Medicine 10/31/16 Inspector Line Relationship Specialty Start Date End Date Adama Mendoza MD [address] [place] [address] PCP - General Family Medicine 10/31/16 Inspector Line Relationship Specialty Start Date End Date Adama Mendoza MD [address] [place] [address] PCP - General Family Medicine 10/31/16 Inspector Line Relationship Specialty Start Date End Date Adama Mendoza MD [address] [place] [address] PCP - General Family Medicine 10/31/16 Inspector Line Relationship Specialty Start Date End Date Adama Mendoza MD 0 [place] [address] PCP - General Family Medicine 10/31/16 Inspector Line Relationship Specialty Start Date End Date Adama Mendoza MD [address] [place] [address] PCP - General Family Medicine 10/31/16 Inspector Line Relationship Specialty Start Date End Date Adama Mendoza MD [address] [place] [address] PCP - General Family Medicine 10/31/16 Inspector Line Relationship Specialty Start Date End Date Adama Mendoza MD [address] [place] [address] PCP - General Family Medicine 10/31/16 Inspector Line Relationship Specialty Start Date End Date Adama Mendoza MD [address] [facility] [place] [address] PCP - General Family Medicine 10/31/16 Inspector Line Relationship Specialty Start Date End Date Adama Mendoza MD [address] [facility] [place] [address] PCP - General Family Medicine 10/31/16 Inspector Line Relationship Specialty Start Date End Date Adama Mendoza MD [address] [facility] [place] [address] PCP - General Family Medicine 10/31/16 Inspector Line Relationship Specialty Start Date End Date Adama Mendoza MD [address] [place] [address] PCP - General Family Medicine 10/31/16 Inspector Line Relationship Specialty Start Date End Date Adama Mendoza MD [address] [place] [address] PCP - General Family Medicine 10/31/16 Inspector Line Relationship Specialty Start Date End Date Adama Mendoza MD [address] [place] [address] PCP - General Family Medicine 10/31/16 Inspector Line Relationship Specialty Start Date End Date Adama Mendoza MD [address] [place] [address] PCP - General Family Medicine 10/31/16 Inspector Line Relationship Specialty Start Date End Date Adama Mendoza MD [address] [place] [address] PCP - General Family Medicine 10/31/16 Inspector Line Relationship Specialty Start Date End Date Adama Mendoza MD [address] [facility] [place] [address] PCP - General Family Medicine 10/31/16 Inspector Line Relationship Specialty Start Date End Date Adama Mendoza MD [address] [facility] [place] [address] PCP - General Family Medicine 10/31/16 Inspector Line Relationship Specialty Start Date End Date Adama Mendoza MD [address] [facility] [place] [address] PCP - General Family Medicine 10/31/16 Inspector Line Relationship Specialty Start Date End Date Adama Mendoza MD [address] [facility] [place] [address] PCP - General Family Medicine 10/31/16 Inspector Line Relationship Specialty Start Date End Date Adama Mendoza MD [address] [facility] [place] [address] PCP - General Family Medicine 10/31/16 Inspector Line Relationship Specialty Start Date End Date Adama Mendoza MD [address] [facility] [place] [address] PCP - General Family Medicine 10/31/16 Inspector Line Relationship Specialty Start Date End Date Adama Mendoza MD [address] [facility] [place] [address] PCP - General Family Medicine 10/31/16 Claude Cardenas APRN.CNP [address] [facility] [address] Route Delivery Service Driver Family Medicine 09/10/24 Danita Meraz PA-C [address] [facility] [place] [address] Route Delivery Service Driver Family Medicine 09/10/24 Inspector Line Relationship Specialty Start Date End Date Adama Mendoza MD [address] [facility] [place] [address] PCP - General Family Medicine 10/31/16 Claude Cardenas APRN.HANGER OFF [address] [place] [address] Route Delivery Service Driver Family Medicine 09/10/24 Danita Meraz PA-C [address] [place] [address] [facility] Inspector Line Relationship Specialty Start Date End Date Adama Mendoza MD [address] [place] [address] PCP - General Family Medicine 10/31/16 Claude Cardenas APRN.HANGER OFF [address] [place] [address] Route Delivery Service Driver Family Medicine 09/10/24 Danita Meraz PA-C [address] [place] [address] Route Delivery Service Driver Family Medicine 09/10/24 Inspector Line Relationship Specialty Start Date End Date Adama Mendoza MD [address] [place] [address] PCP - General Family Medicine 10/31/16 Claude Cardenas APRN.HANGER OFF [address] [place] [address] Route Delivery Service Driver Family Medicine 09/10/24 Danita Meraz PA-C [address] [place] [address] Route Delivery Service Driver Family Medicine 09/10/24 Inspector Line Relationship Specialty Start Date End Date Adama Mendoza MD [address] [place] [address] PCP - General Family Medicine 10/31/16 Claude Cardenas APRN.HANGER OFF [address] [place] [address] Route Delivery Service Driver Family Medicine 09/10/24 Danita Meraz PA-C [address] [place] [address] Route Delivery Service Driver Family Medicine 09/10/24 Inspector Line Relationship Specialty Start Date End Date Adama Mendoza MD [address] [place] [address] PCP - General Family Medicine 10/31/16 Claude Cardenas APRN.HANGER OFF [address] [place] [address] Route Delivery Service Driver Family Medicine 09/10/24 Danita Meraz PA-C [address] [place] [address] Route Delivery Service Driver Family Medicine 09/10/24 Inspector Line Relationship Specialty Start Date End Date Adama Mendoza MD [address] [place] [address] PCP - General Family Medicine 10/31/16 Claude Cardenas, MIO.HANGER OFF [address] [place] [address] Route Delivery Service Driver Family Medicine 09/10/24 Danita Meraz PA-C [address] [place] [address] Route Delivery Service Driver Family Medicine 09/10/24 Inspector Line Relationship Specialty Start Date End Date Adama Mendoza MD [address] [place] [address] PCP - General Family Medicine 10/31/16 Claude Cardenas, MIO.HANGER OFF [address] [place] [address] Route Delivery Service Driver Family Medicine 09/10/24 Danita Meraz PA-C [address] [place] [address] Route Delivery Service Driver Family Medicine 09/10/24 Inspector Line Relationship Specialty Start Date End Date Adama Mendoza MD [address] [place] [address] PCP - General Family Medicine 10/31/16 Claude Cardenas, SOLID PROPELLANT PROCESSOR.HANGER OFF [address] [place] [address] Route Delivery Service Driver Family Medicine 09/10/24 Danita Meraz PA-C [address] [place] [address] Route Delivery Service Driver Family Medicine 09/10/24 Inspector Line Relationship Specialty Start Date End Date Adama Mendoza MD [address] [place] [address] PCP - General Family Medicine 10/31/16 Claude Cardenas APRN.HANGER OFF [address] [place] [address] Route Delivery Service Driver Family Medicine 09/10/24 Danita Meraz PA-C [address] [place] [address] Route Delivery Service Driver Family Medicine 09/10/24 Inspector Line Relationship Specialty Start Date End Date Adama Mendoza MD [address] [place] [address] PCP - General Family Medicine 10/31/16 Claude Cardenas APRN.HANGER OFF [address] [place] [address] Route Delivery Service Driver Family Medicine 09/10/24 Danita Meraz PA-C [address] [place] [address] Route Delivery Service Driver [facility] 09/10/24 Soto Valderrama MD [address] [place] [address] [phone] Referring Internal Medicine 10/20/24 Adama Mendoza MD [address] [place] [address] Home Care Provider Family Medicine 10/20/24 Krishna Mackey, RN [address] [place], [place] [phone] Instructor Of Education Post Acute Care 10/20/24 Inspector Line Relationship Specialty Start Date End Date Adama Mendoza MD [address] [place] [address] PCP - General Family Medicine 10/31/16 Claude Cardenas APRN.HANGER OFF [address] [place] [address] Route Delivery Service Driver Family Medicine 09/10/24 Danita Meraz PA-C [address] [place] [address] Route Delivery Service Driver Family Medicine 09/10/24 Soto Valderrama MD [address] [place] [address]23 Referring Internal Medicine 10/20/24 Adama Mendoza MD [address] [place] [address] Home Care Provider Family Medicine 10/20/24 Krishna Mackey, RN [address] [place] [address] Instructor Of Education Post Acute Care 10/20/24 Inspector Line Relationship Specialty Start Date End Date Adama Mendoza MD [address] [place] [address] 15021 PCP - General Family Medicine 10/31/16 Claude Cardenas APRN.HANGER OFF [address] [place] [address] Route Delivery Service Driver Family Medicine 09/10/24 Danita Meraz PA-C [address] [place] [address] 34[address] Route Delivery Service Driver Family Medicine 09/10/24 Soto Valderrama MD [address] [place], [place] [phone] Referring Internal Medicine 10/20/24 Adama Mendoza MD [address] [place], [place] 257561 Home Care Provider Family Medicine 10/20/24 Krishna Mackey, VAN [address] [place], [place] [phone] Instructor Of Education Post Acute Care 10/20/24 Brianna Doe, assessment consultant Logistics Engineer 10/21/24 Inspector Line Relationship Specialty Start Date End Date Adama Mendoza MD [facility]0 [place], [place] 460481 PCP - General Family Medicine 10/31/16 Claude Cardenas APRN.HANGER OFF [address] [place] [address] 740861 Route Delivery Service Driver Family Medicine 09/10/24 Danita Meraz PA-C [address] [place] [address]71 Route Delivery Service Driver Family Medicine 09/10/24 Soto Valderrama MD [address] [place], [place] [phone] Referring Internal Medicine 10/20/24 Adama Mendoza MD [address] [place] [address]42 Home Care Provider Family Medicine 10/20/24 Krishna Mackey, VAN [address] [place], [place] [phone] Instructor Of Education Post Acute Care 10/20/24 Brianna Doe, assessment consultant Logistics Engineer 10/21/24 Inspector Line Relationship Specialty Start Date End Date Adama Mendoza MD [address] [place] [address] PCP - General Family Medicine 10/31/16 Claude Cardenas APRN.HANGER OFF [address] [place] [address] 400645 [phone] Route Delivery Service Driver Family Medicine 09/10/24 Danita Meraz PA-C [address] [place] [address] [phone] Route Delivery Service Driver [facility] 09/10/24 Soto Valderrama MD [address] [place] [address] [phone] Referring Internal Medicine 10/20/24 Adama Mendoza MD [address] [place] [address] Home Care Provider Family Medicine 10/20/24 Krishna Mackey, RN [address] [place] [address] Instructor Of Education Post Acute Care 10/20/24 Brianna Doe, assessment consultant Logistics Engineer 10/21/24 Inspector Line Relationship Specialty Start Date End Date Adama Mendoza MD [address] [place] [address] PCP - General Family Medicine 10/31/16 Claude Cardenas, MIO.HANGER OFF [address] [place] [address] Route Delivery Service Driver Family Medicine 09/10/24 Danita Meraz PA-C [address] [place], [place] 805191 Route Delivery Service Driver [facility] 09/10/24 Soto Valderrama MD [address] [place], [place] [phone] Referring Internal Medicine 10/20/24 Adama Mendoza MD [address] [place] [address] 950351 Home Care Provider Family Medicine 10/20/24 Krishna Mackey, VAN [address] [place], [place] [phone] Instructor Of Education Post Acute Care 10/20/24 Brianna Doe RN Primary Care Logistics Engineer 10/21/24 Inspector Line Relationship Specialty Start Date End Date Adama Mendoza MD [address] [place] [address] 97284 PCP - General Family Medicine 10/31/16 Claude Cardenas APRN.RACHELLE [address] [place] [address] [phone] Route Delivery Service Driver [facility] 09/10/24 Danita Meraz PA-C [address] [place] [address] [phone] Route Delivery Service Driver [facility] 09/10/24 Soto Valderrama MD [address] [place], [place] [phone] Referring Internal Medicine 10/20/24 Adama Mendoza MD [address] [place], [place] [phone] Home Care Provider Family Medicine 10/20/24 Krishna MackeyVAN [address] [place] [address] Instructor Of Education Post Acute Care 10/20/24 Brianna Doe, assessment consultant Logistics Engineer 10/21/24 Inspector Line Relationship Specialty Start Date End Date Adama Mendoza MD [facility]0 [place], [place] 776089 [phone] PCP - General Family Medicine 10/31/16 Claude Cardenas APRN.HANGER OFF [address] [place] [address] [phone] Route Delivery Service Driver Family Medicine 09/10/24 Danita Meraz PA-C [address] [place] [address] 16497 Route Delivery Service Driver Family Medicine 09/10/24 Soto Valderrama MD [address] [place] [address] [phone] Referring Internal Medicine 10/20/24 Adama Mendoza MD [address] [place] [address] 92238 Home Care Provider Family Medicine 10/20/24 Krishna Mackey RN [address] [place] [address] Instructor Of Education Post Acute Care 10/20/24 Brianna Doe, assessment consultant Logistics Engineer 10/21/24 Inspector Line Relationship Specialty Start Date End Date Adama Mendoza MD [address] [place] [address] 155946 [phone] PCP - General Family Medicine 10/31/16 Claude Cardenas APRN.HANGER OFF [address] [place] [address] [phone] Route Delivery Service Driver [facility] 09/10/24 Danita Meraz PA-C [address] [place], [place] 077091 Route Delivery Service Driver [facility] 09/10/24 Soto Valderrama MD [address] [place], [place] [phone] Referring Internal Medicine 10/20/24 Adama Mendoza MD [address] [place] [address] 9[address] Home Care Provider Family Medicine 10/20/24 Krishna Mackey, VAN [address] [place], [place] [phone] Instructor Of Education Post Acute Care 10/20/24 Brianna Doe, assessment consultant Logistics Engineer 10/21/24 Inspector Line Relationship Specialty Start Date End Date Adama Mendoza MD [address] [place] [address] 57188 PCP - General Family Medicine 10/31/16 Claude Cardenas APRN.CNP [address] [place] [address] [phone] Route Delivery Service Driver [facility] 09/10/24 Danita Meraz PA-C [address] [place] [address] Route Delivery Service Driver [facility] 09/10/24 Soto Valderrama MD [address] [place] [address] Referring Internal Medicine 10/20/24 Adama Mendoza MD [address] [place] [address] 719931 [phone] Home Care Provider Family Medicine 10/20/24 Brianna Doe, assessment consultant Logistics Engineer 10/21/24 Inspector Line Relationship Specialty Start Date End Date Adama Mendoza MD [address] [place] [address] PCP - General Family Medicine 10/31/16 Claude Cardenas APRN.HANGER OFF [address] [place] [address]181 Route Delivery Service Driver Family Medicine 09/10/24 Danita Meraz PA-C [address] [place] [address] 55[address] Route Delivery Service Driver Family Medicine 09/10/24 Soto Valderrama MD [address] [place] [address] 50315 Referring Internal Medicine 10/20/24 Adama Mendoza MD [address] [place] [address] Home Care Provider Family Medicine 10/20/24 Brianna Doe RN Primary Care Logistics Engineer 10/21/24 Inspector Line Relationship Specialty Start Date End Date Adama Mendoza MD [address] [place] [address] PCP - General Family Medicine 10/31/16 Claude Cardenas APRN.HANGER OFF [address] [place] [address] 9[address]28 Route Delivery Service Driver Family Medicine 09/10/24 Danita Meraz PA-C [address] [place] [address] Route Delivery Service Driver Family Medicine 09/10/24 Soto Valderrama MD [address] [place] [address] 66809 Referring Internal Medicine 10/20/24 Adama Mendoza MD [address] [place] [address] 75049 Home Care Provider Family Medicine 10/20/24 Brianna Doe, assessment consultant Logistics Engineer 10/21/24 Inspector Line Relationship Specialty Start Date End Date Adama Mendoza MD [address] [place] [address] 85265 PCP - General Family Medicine 10/31/16 Claude Cardenas APRN.HANGER OFF [address] [place] [address] [phone] Route Delivery Service Driver Family Medicine 09/10/24 Danita Meraz PA-C [address] [place] [address] 31586 Route Delivery Service Driver [facility] 09/10/24 Soto Valderrama MD [address] [place] [address] 92234 Referring Internal Medicine 10/20/24 Adama Mendoza MD [address] [place] [address] 83949 Home Care Provider Family Medicine 10/20/24 Brianna Doe, assessment consultant Logistics Engineer 10/21/24 Inspector Line Relationship Specialty Start Date End Date Adama Mendoza MD [address] [place] [address] 63880 PCP - General Family Medicine 10/31/16 Claude Cardenas APRN.HANGER OFF [address] [place] [address] Route Delivery Service Driver Family Medicine 09/10/24 Danita Meraz PA-C [address] [place] [address] Route Delivery Service Driver Family Medicine 09/10/24 Soto Valderrama MD [address] [place], [place] [phone] Referring Internal Medicine 10/20/24 Adama Mendoza MD [address] [place] [address] 08157 Home Care Provider Family Medicine 10/20/24 Brianna Doe, assessment consultant Logistics Engineer 10/21/24 11/18/24 Inspector Line Relationship Specialty Start Date End Date Adama Mendoza MD [address] [place] [address] 91153 PCP - General Family Medicine 10/31/16 Claude Cardenas APRN.HANGER OFF [address] [place] [address] 74649 Route Delivery Service Driver Family Medicine 09/10/24 Danita Meraz PA-C [address] [place], [place] 910283 [phone] Route Delivery Service Driver Family Medicine 09/10/24 Soto Valderrama MD [address] [place], [place] [phone] Referring Internal Medicine 10/20/24 Adama Mendoza MD [address] [place] [address] Home Care Provider Family Medicine 10/20/24 Inspector Line Relationship Specialty Start Date End Date Adama Mendoza MD [address] [place] [address] PCP - General Family Medicine 10/31/16 Claude Cardenas APRN.HANGER OFF [address] [place] [address]11 Route Delivery Service Driver [facility] 09/10/24 Danita Meraz PA-C [address] [place] [address] 12793 Route Delivery Service Driver Family Medicine 09/10/24 Soto Valderrama MD [address] [place] [address] 15549 Referring Internal Medicine 10/20/24 Adama Mendoza MD [address] [place] [address] Home Care Provider Family Medicine 10/20/24 Inspector Line Relationship Specialty Start Date End Date Adama Mendoza MD [address] [place] [address] PCP - General Family Medicine 10/31/16 Claude Cardenas APRN.HANGER OFF [address] [place] [address] 00939 Route Delivery Service Driver Family Medicine 09/10/24 Danita Meraz PA-C [address] [place] [address] Route Delivery Service Driver Family Medicine 09/10/24 Soto Valderrama MD [address] [place], [place] [phone] Referring Internal Medicine 10/20/24 Adama Mendoza MD [address] [place] [address] Home Care Provider Family Medicine 10/20/24 Inspector Line Relationship Specialty Start Date End Date Adama Mendoza MD [address] [place] [address] 82384 PCP - General Family Medicine 10/31/16 Claude Cardenas APRN.[facility] [address] [place] [address] 75861 Route Delivery Service Driver Family Medicine 09/10/24 Danita Meraz PA-C [address] [place] [address] 08675 Route Delivery Service Driver Family Medicine 09/10/24 Soto Valderrama MD [address] [place], [place] [phone] Referring Internal Medicine 10/20/24 Adama Mendoza MD [address] [place] [address] Home Care Provider Family Medicine 10/20/24 Inspector Line Relationship Specialty Start Date End Date Adama Mendoza MD [address] [place] [address] PCP - General Family Medicine 10/31/16 Claude Cardenas APRN.HANGER OFF [address] [place] [address] Route Delivery Service Driver Family Medicine 09/10/24 Danita Meraz PA-C [address] [place] [address] Route Delivery Service Driver Family Medicine 09/10/24 Soto Valderrama MD [address] [place], [place] [id number] Referring Internal Medicine 10/20/24 Adama Mendoza MD [address] [place] [address] Home Care Provider Family Medicine 10/20/24 Inspector Line Relationship Specialty Start Date End Date Adama Mendoza MD [address] [place] [address] PCP - General Family Medicine 10/31/16 Claude Cardenas APRN.HANGER OFF [address] [place] [address] Route Delivery Service Driver Family Medicine 09/10/24 Danita Meraz PA-C [facility] [place] [address] Route Delivery Service Driver Family Medicine 09/10/24 Soto Valderrama MD [address] [place], [place] [phone] Referring Internal Medicine 10/20/24 Adama Mendoza MD [address] [place] [address] Home Care Provider Family Medicine 10/20/24 Inspector Line Relationship Specialty Start Date End Date Adama Mendoza MD [address] [place] [address] PCP - General Family Medicine 10/31/16 Claude Cardenas APRN.HANGER OFF [address] [place] [address] Route Delivery Service Driver Family Medicine 09/10/24 Danita Meraz PA-C [address] [place] [address] Route Delivery Service Driver Family [facility] 09/10/24 Soto Valderrama MD [address] [place], [place] [phone] Referring Internal Medicine 10/20/24 Adama Mendoza MD [address] [place] [address] Home Care Provider Family Medicine 10/20/24 Inspector Line Relationship Specialty Start Date End Date Claude Cardenas APRN.HANGER OFF [facility] [place] [address] Route Delivery Service Driver Family Medicine 09/10/24 Danita Meraz PA-C [address] [place] [address] Route Delivery Service Driver Family Medicine 09/10/24 Soto Valderrama MD [address] [place], [place] [phone] Referring Internal Medicine 10/20/24 Adama Mendoza MD [address] [place] [address] Home Care Provider Family Medicine 10/20/24 Inspector Line Relationship Specialty Start Date End Date Adama Mendoza MD [address] [place] [address] PCP - General Family Medicine 01/09/25 Claude Cardenas APRN.HANGER OFF [address] [place] [address] Route Delivery Service Driver Family Medicine 09/10/24 Danita Meraz PA-C [address] [place] [address] Route Delivery Service Driver Family Medicine 09/10/24 Soto Valderrama MD [address] [place] [address] Referring Internal Medicine 10/20/24 Adama Mendoza MD [address] [place] [address] Home Care Provider Family Medicine 10/20/24 Inspector Line Relationship Specialty Start Date End Date Adama Mendoza MD [address] [place] [address] PCP - General Family Medicine 01/09/25 Claude Cardenas APRN.HANGER OFF [address] [place] [address] Route Delivery Service Driver Family Medicine 09/10/24 Danita Meraz PA-C [address] [place] [address] Route Delivery Service Driver Family Medicine 09/10/24 Soto Valderrama MD [address] [place] [address] Referring Internal Medicine 10/20/24 Adama Mendoza MD [address] [place] [address] Home Care Provider Family Medicine 10/20/24 Inspector Line Relationship Specialty Start Date End Date Adama Mendoza MD [address] [place] [address] PCP - General Family Medicine 01/09/25 Claude Cardenas APRN.HANGER OFF [address] [place] [address] Route Delivery Service Driver Family Medicine 09/10/24 Danita Meraz PA-C [address] [place] [address] Route Delivery Service Driver Family Medicine 09/10/24 Soto Valderrama MD [address] [place] [address] Referring Internal Medicine 10/20/24 Adama Mendoza MD [address] [place] [address] Home Care Provider Family Medicine 10/20/24 Inspector Line Relationship Specialty Start Date End Date Adama Mendoza MD [address] [place] [address] PCP - General Family Medicine 01/09/25 Claude Cardenas APRN.HANGER OFF [address] [place] [address] Route Delivery Service Driver Family Medicine 09/10/24 Danita Meraz PA-C [address] [place] [address] Route Delivery Service Driver Family Medicine 09/10/24 Soto Valderrama MD [address] [place] [phone] Referring Internal Medicine 10/20/24 Adama Mendoza MD [address] [place] [address] Home Care Provider Family Medicine 10/20/24 Inspector Line Relationship Specialty Start Date End Date dAama Mendoza MD [address] [place] [address] PCP - General Family Medicine 01/09/25 Soto Valderrama MD [address] [place] [address] [phone] Referring Internal Medicine 10/20/24 Adama Mendoza MD [address] [place] [address] Home Care Provider Family Medicine 10/20/24 Claude Cardenas APRN.CNP [address] [place] [address] Route Delivery Service Driver Family Medicine 03/06/25 Danita Meraz PA-C [address] [place] [address] Route Delivery Service Driver Family Medicine 03/06/25 Inspector Line Relationship Specialty Start Date End Date Adama Mendoza MD [address] [place] [address] PCP - General Family Medicine 01/09/25 Soto Valderrama MD [address] [place] [address] Referring Internal Medicine 10/20/24 Adama Mendoza MD [address] [place] [address] Home Care Provider Family Medicine 10/20/24 Claude Cardenas APRN.HANGER OFF [address] [place] [address] Route Delivery Service Driver Family Medicine 03/06/25 Danita Meraz PA-C [address] [place] [address] Route Delivery Service Driver Family Medicine 03/06/25 Inspector Line Relationship Specialty Start Date End Date Adama Mendoza MD [address] [place] [address] PCP - General Family Medicine 01/09/25 Soto Valderrama MD [address] [place] [address] Referring Internal Medicine 10/20/24 Adama Mendoza MD [facility] [place] [address] Home Care Provider Family Medicine 10/20/24 Claude Cardenas APRN.HANGER OFF [facility] [place] [address] Route Delivery Service Driver Family Medicine 03/06/25 Danita Meraz PA-C [address] [place] [address] Route Delivery Service Driver Family [facility] 03/06/25 Inspector Line Relationship Specialty Start Date End Date Adama Mendoza MD [address] [place] [address] PCP - General Family Medicine 01/09/25 Soto Valderrama MD [address] [place], [place] [phone] Referring Internal Medicine 10/20/24 Adama Mendoza MD [address] [place] [address] Home Care Provider Family Medicine 10/20/24 Claude Cardenas APRN.CNP [address] [place] [address] Route Delivery Service Driver [facility] 03/06/25 Danita Meraz PA-C [address] [place] [address] Route Delivery Service Driver [facility] 03/06/25 Inspector Line Relationship Specialty Start Date End Date Adama Mendoza MD [address] [place] [address] PCP - General Family Medicine 01/09/25 Soto Valderrama MD [address] [place], [place] [phone] Referring Internal Medicine 10/20/24 Adama Mendoza MD [address] [place] [address] Home Care Provider Family Medicine 10/20/24 Claude Cardenas APRN.HANGER OFF [facility] [place] [address] Route Delivery Service Driver Family Medicine 03/06/25 Danita Meraz PA-C [facility] [place] [address] Route Delivery Service Driver Family Medicine 03/06/25 Inspector Line Relationship Specialty Start Date End Date Adama Mendoza MD [address] [place] [address] PCP - General Family Medicine 01/09/25 Soto Valderrama MD [address] [place] [phone] Referring Internal Medicine 10/20/24 Adama Mendoza MD [address] [place] [address] Home Care Provider Family Medicine 10/20/24 Claude Cardenas APRN.HANGER OFF [address] [place] [address] Route Delivery Service Driver Family Medicine 03/06/25 Danita Meraz PA-C [facility] [place] [address] Route Delivery Service Driver Family Medicine 03/06/25 Inspector Line Relationship Specialty Start Date End Date Adama Mendoza MD [address] [place] [address] PCP - General Family Medicine 01/09/25 Soto Valderrama MD [address] [place] [address] Referring Internal Medicine 10/20/24 Adama Mendoza MD [address] [place] [address] Home Care Provider Family Medicine 10/20/24 Claude Cardenas APRN.HANGER OFF [address] [place] [address] Route Delivery Service Driver Family Medicine 03/06/25 Danita Meraz PA-C [address] [place] [address] Route Delivery Service Driver Family Medicine 03/06/25 Inspector Line Relationship Specialty Start Date End Date Adama Mendoza MD [address] [place] [address] PCP - General Family Medicine 01/09/25 Soto Valderrama MD [address] [place] [address] Referring Internal Medicine 10/20/24 Adama Mendoza MD [address] [place] [address] Home Care Provider Family Medicine 10/20/24 Claude Cardenas APRN.HANGER OFF [address] [place] [address] Route Delivery Service Driver Family Medicine 03/06/25 Danita Meraz PA-C [facility] [place] [address] Route Delivery Service Driver Family Medicine 03/06/25 Team Status: Active Member [...] BE BASED ON THE PRIMARY CLINICAL RECORDS. [email or web address] provides no warranty or guarantee of the accuracy or completeness of information in this document.
[2025-10-01] MEDS: 0.9% Saline Lock 10 ML Syringe IV ×2 (03:45→20:22)
[2025-10-01] MEDS: Ceftriaxone 2 GM in 0.9% Normal Saline (50mL MB+) 50 ML IV ×2 (03:46→20:09)
[2025-10-01 03:51] LABS: Reflex Lactate? Y
[2025-10-01] MEDS: Albuterol 2.5 MG/3 ML VIAL.NEB. INHALATION ×2 (04:17→20:11)
[2025-10-01 04:31] LABS: Hematocrit 37.7 % (40-54); Hemoglobin 12.6 g/dL (13.0-16.5); Immature Granulocytes Count 0.040 X10^3/uL (0.0-0.0); Mean Corp Hgb Conc 33.4 g/dL (32-36); Mean Corpuscular Volume 87.5 fL (80-94); Mean Platelet Vol. 10.2 fl (6.2-12.0); NRBC Flagged by Analyzer 0 % (0-5); POSITIVE DIFFERENTIAL YES; Platelet Count 179 K/mm3 (150-450); RBC Distribution Width CV 13.5 % (11.6-14.6); RBC Distribution Width SD 43.2 fl (35.1-43.9); Red Blood Count 4.31 M/mm3 (4.6-6.2); White Blood Count 9.7 K/mm3 (4.4-11.0)
[2025-10-01 05:01] LABS: Anion Gap 12 (7-18); BUN 17 mg/dL (4-19); BUN/Creat Ratio 14.5 RATIO (10-20); Calcium,Total 8.7 mg/dL (7.6-11.0); Carbon Dioxide 22.3 mmol/L (20.0-29.0); Chloride 107 mmol/L (96-106); Estimated Creatinine Clearance 51.39 ml/min (50-250); Glucose 116 mg/dL (70-99); Magnesium 1.9 mg/dL (1.5-2.2); Potassium 4.0 mmol/L (3.5-5.1)
[2025-10-01] MEDS: Metoprolol(XL)Succ 25 MG Tablet 75 MG PO (11:13)
[2025-10-01] MEDS: Cholecalciferol (VIT D3) 25 MCG TABLET (1,000 UNITS) PO (11:14)
[2025-10-01] MEDS: Memantine Hydrochloride 10 MG Tablet PO ×2 (11:14→20:09)
[2025-10-01] MEDS: Aspirin E.C. 81 MG Tablet PO (11:14)
--- NOTE | 2025-10-01 11:19 | PCM.PN.BLA ---
Assessment & Plan Assessment/Plan (1) Influenza A: (2) Bilateral pulmonary infiltrates: PLAN: Plan 1. Influenza with multifocal pneumonia ? Continue with Rocephin and doxycycline ? Continue with Tamiflu ? Blood cultures are pending 2. Essential HTN/HLD ? Continue with home blood pressure medications ? Will monitor make adjustments as necessary ? Continue with pravastatin 3. Dementia ? Stable ? Continue with his home medications 4. GERD ? Stable ? Continue with PPI DVT: Lovenox
[2025-10-02] VITALS (10 sets, daily range): BP systolic 142–198; BP diastolic 66–109; PULSE 72–86; RESP 16–24; TEMP 36.3–37.5; O2SAT 92–99
[2025-10-02] MEDS: Albuterol 2.5 MG/3 ML VIAL.NEB. INHALATION (04:47)
[2025-10-02 05:43] LABS: Hematocrit 40.3 % (40-54); Hemoglobin 13.4 g/dL (13.0-16.5); Immature Granulocytes Count 0.030 X10^3/uL (0.0-0.0); Mean Corp Hgb Conc 33.3 g/dL (32-36); Mean Corpuscular Volume 89.0 fL (80-94); Mean Platelet Vol. 10.6 fl (6.2-12.0); NRBC Flagged by Analyzer 0 % (0-5); Platelet Count 159 K/mm3 (150-450); RBC Distribution Width CV 14.1 % (11.6-14.6); RBC Distribution Width SD 46.0 fl (35.1-43.9); Red Blood Count 4.53 M/mm3 (4.6-6.2); White Blood Count 11.2 K/mm3 (4.4-11.0)
[2025-10-02 06:31] LABS: Anion Gap 13 (7-18); BUN 18 mg/dL (4-19); BUN/Creat Ratio 14.5 RATIO (10-20); Calcium,Total 9.0 mg/dL (7.6-11.0); Carbon Dioxide 22.6 mmol/L (20.0-29.0); Chloride 107 mmol/L (96-106); Estimated Creatinine Clearance 47.75 ml/min (50-250); Glucose 106 mg/dL (70-99); Potassium 3.5 mmol/L (3.5-5.1)
[2025-10-02] MEDS: Memantine Hydrochloride 10 MG Tablet PO ×2 (08:21→22:07)
[2025-10-02] MEDS: Cholecalciferol (VIT D3) 25 MCG TABLET (1,000 UNITS) PO (08:21)
[2025-10-02] MEDS: Metoprolol(XL)Succ 25 MG Tablet 75 MG PO (08:21)
[2025-10-02] MEDS: Aspirin E.C. 81 MG Tablet PO (08:21)
--- NOTE | 2025-10-02 08:57 | PN.HOSP_ITS ---
Subjective Subjective No new issues overnight Objective Data Objective Data Vital Signs: Vital Signs Temp Pulse Resp BP Pulse Ox O2 Del Method O2 Flow Rate 99.5 F H 72 18 151/86 H 94 Nasal Cannula 2 10/02/25 08:03 10/02/25 08:21 10/02/25 08:03 10/02/25 08:03 10/02/25 08:03 10/02/25 08:03 10/02/25 08:03 Oxygen Flow Rate (L/min) 2 Oxygen Delivery Method Nasal Cannula Weight: 196 lb 5 oz Body Mass Index (BMI) 30.7 Intake & Output: Intake and Output for Last 24 Hours 10/01/25 10/02/25 10/03/25 03:59 03:59 03:59 Intake Total 1000 / 1000 725 / 725 Balance 1000 / 1000 725 / 725 Lab / Micro Data 10/02/25 05:13 10/02/25 05:13 Labs: Laboratory Results - last 24 hr 10/02/25 05:13: WBC 11.2 H, RBC 4.53 L, Hgb 13.4, Hct 40.3, MCV 89.0, MCH 29.6, MCHC 33.3, RDW Std Deviation 46.0 H, RDW Coeff of Sami 14.1, Plt Count 159, MPV 10.6, Immature Gran % (Auto) 0.300, Neut % (Auto) 63.0, Lymph % (Auto) 24.7, M deshawn % (Auto) 10.7 H, Eos % (Auto) 1.0, Baso % (Auto) 0.3, Absolute Neuts (auto) 7.1, Absolute Lymphs (auto) 2.77, Nucleated RBC % 0, Sodium 143, Potassium 3.5, Chloride 107 H, Carbon Dioxide 22.6, Anion Gap 13, BUN 18, Creatinine 1.27 H, E stim Creat Clear Calc 47.75 L, Est GFR (MDRD) Non-Af 56 L, BUN/Creatinine Ratio 14.5, Glucose 106 H, Calcium 9.0 Micro: Microbiology 09/30/25 23:45 Mucosa - Nose SARS-CoV-2, Influenza & RSV (PCR) - Final Influenzae A Physical Exam Narrative General: Alert, Oriented x1, Cooperative, No apparent distress HEENT: Atraumatic, PERRLA, EOMI, Normocephalic Oral: Moist Mucosa Neck: Supple, No JVD Lungs: Diminished, Normal air movement, No rhonchi, scattered wheeze, No rales Cardiovascular: Regular rate, Regular Rhythm, Normal S1, Normal S2, No murmurs Abdomen: Soft, Non Tender, Non-Distended, No Hepato-splenomegaly Extremities: No edema, Capillary Refill Less than 3 Seconds Skin: No rashes, No breakdown Musculoskeletal: No Tenderness to Palpation of Joints or Extremities Neurological: No focal neurological deficits, moves all extremities Psych/Mental Status: Flat Assessment & Plan Assessment/Plan (1) Influenza A: (2) Bilateral pulmonary infiltrates: PLAN: Plan 1. Influenza with multifocal pneumonia ? Continue with Rocephin and doxycycline ? Continue with Tamiflu ? Blood cultures are pending 2. Essential HTN/HLD ? Continue with home blood pressure medications ? Will monitor make adjustments as necessary ? Continue with pravastatin 3. Dementia ? Stable ? Continue with his home medications 4. GERD ? Stable ? Continue with PPI DVT: José Miguel Charges/Coding Visit Charges Inpatient E&M: 53032 Subs Hosp L2
--- NOTE | 2025-10-02 12:15 | CASEMGMT ---
FIDE Assessment: Pt is O x 1. FIDE called pt , Mildred, for initial transition planning/care coordination assessment. SW introduced self and role at [facility], pt voices understanding and consents to assessment. Care providers, pharmacy, and demographics verified/updated. Admitting Dx: Influenza, weakness PCP: Danay Specialists: None Preferred Pharmacy: [facility] Insurance: [facility] Prescription Benefit: yes LNOK: of 48 years Mildred, son Tim, and daughter Ailyn Living Arrangements: Pt lives in a two story home with 1 small step to enter. Pt and pt live on first floor; pt reports upsatirs is three bedrooms and one bath, which is where their children resided growing up. Pt reports that she has helped with medications for three years. Pt reports that he is able to zip pants and button shirts, but needs help bathing, feeding self, and some assistance at times toileting. Pt reports that he does not use a devise at baseline for ambulation and shared that they have a pass to walk the track at the high school and go daily to walk. Pt reports that she has had her own health issues including leukemia five years ago, covid multiple times, and bacterial meningitis a year ago which led to a three month hospitalization for pt . Mildred reports that pt son cared for pt at that time. Pt reports that she is a diabetic with an autoimmune disorder and has to be very careful not to get sick. Pt reports that both her son and dtr are very sick right now and could not assist her if she became sick caring for pt. Transportation: Pt drives DME: grab bars, shower chair. Pt has a walker and wheel chair that she used and would be available in the home. FIDE discussed potential need for oxyfen, as pt is on 2L currently. Pt indicated [employer] would be preference if oxygen is needed. HHC/SNF: Reports has HHC once, but cannot recall provider Pt inquired into if pt is a full feed for meals. Pt reports that pt cannot set up/open foods and often gets utensils mixed up/is unable to effectively use utensils. FIDE followed up with bedside nurse who shared that she will reach out to dietary to update. Pt also requested update from hospitalist, as she arrived at 7am for rounds, but was told hospitalist already rounded. SW passed on pt request to hospitalist. Pt states no further concerns/needs. SW to follow. Advised pt to ask SW if any further questions/concerns/needs arise and provided contact information, voices understanding. Pt Goal: Home, no needs Plan: If pt is d/c ready today/tomorrow, pt may want SNF. If pt will not be d/c for a few days, pt prefers home. SW to follow. BARBRA Miller
--- NOTE | 2025-10-02 15:47 | NURSING ---
Call received from Mildred. This nurse assured her that we would call with any updates or changes that occur from now until morning.
[2025-10-02] MEDS: MELATONIN 3 MG TABLET PO (22:07)
[2025-10-02] MEDS: Ceftriaxone 2 GM in 0.9% Normal Saline (50mL MB+) 50 ML IV (22:29)
[2025-10-03 04:43] LABS: Hematocrit 36.6 % (40-54); Hemoglobin 12.0 g/dL (13.0-16.5); Immature Granulocytes Count 0.020 X10^3/uL (0.0-0.0); Mean Corp Hgb Conc 32.8 g/dL (32-36); Mean Corpuscular Volume 88.8 fL (80-94); Mean Platelet Vol. 10.5 fl (6.2-12.0); NRBC Flagged by Analyzer 0 % (0-5); Platelet Count 160 K/mm3 (150-450); RBC Distribution Width CV 13.9 % (11.6-14.6); RBC Distribution Width SD 44.9 fl (35.1-43.9); Red Blood Count 4.12 M/mm3 (4.6-6.2); White Blood Count 7.0 K/mm3 (4.4-11.0)
[2025-10-03 05:05] LABS: Anion Gap 10 (7-18); BUN 20 mg/dL (4-19); BUN/Creat Ratio 18.1 RATIO (10-20); Calcium,Total 8.7 mg/dL (7.6-11.0); Carbon Dioxide 23.8 mmol/L (20.0-29.0); Chloride 108 mmol/L (96-106); Estimated Creatinine Clearance 56.15 ml/min (50-250); Glucose 95 mg/dL (70-99); Potassium 3.5 mmol/L (3.5-5.1)
[2025-10-03 05:58] VITALS: BP 128/67; PULSE 59; RESP 17; TEMP 36.6; O2SAT 94
[2025-10-03 07:40] VITALS: BP 114/58; PULSE 57; RESP 18; TEMP 36.2; O2SAT 92
[2025-10-03 08:17] VITALS: PULSE 20; RESP 17; O2SAT 2
[2025-10-03] MEDS: Aspirin E.C. 81 MG Tablet PO (09:07)
[2025-10-03] MEDS: Memantine Hydrochloride 10 MG Tablet PO (09:08)
[2025-10-03 09:10] VITALS: PULSE 64
[2025-10-03] MEDS: Cholecalciferol (VIT D3) 25 MCG TABLET (1,000 UNITS) PO (09:10)
[2025-10-03] MEDS: Metoprolol(XL)Succ 25 MG Tablet 75 MG PO (09:10)
[2025-10-03 09:51] VITALS: O2SAT 92; O2SAT 96
--- NOTE | 2025-10-03 09:52 | DCINST_ITS ---
Discharge Instructions DC O2, CPAP, BIPAP needs Home O2 Discharge instructions: No Dressing / Incision Discharge Activity: Return to Normal Activity Dressing / Incision Call your doctor if you observe: Fever of 101 or Higher, Shortness of breath, Dizziness, Fainting spells, Swelling in the ankles, Chest pain and Increased palpitations (irregular heartbeat) Follow Up Care Test Results: Test results from this visit will be discussed in further detail at your follow- up appointment, if applicable. Discharge Plan Admission Admit Date/Time: 10/01/25 01:53 Attending Provider: Gaudencio Camilo Primary Care Provider: Adama Jon Consulting Providers: Robb Lawler Discharge Orders/Prescriptions Prescriptions: New doxycycline monohydrate 100 mg Capsule 100 mg PO BID 5 Days Qty: 10 0RF oseltamivir 30 mg Capsule 30 mg PO BID 3 Days Qty: 6 0RF cefdinir 300 mg capsule 300 mg PO BID 5 Days Qty: 10 0RF Continued amlodipine 10 mg tablet 10 mg PO DAILY cinnamon bark 500 mg capsule 500 mg PO DAILY pantoprazole 40 mg tablet,delayed release (DR/EC) 40 mg PO DAILY donepezil 10 mg tablet 10 mg PO QHS nitroglycerin 0.4 mg tablet, sublingual 0.4 mg SUBLINGUAL Q5-15M PRN (Reason: Cardiac/Chest Pain) Rx Instructions: do not exceed 3 doses per episode ascorbate calcium (vitamin C) 500 mg tablet 500 mg PO DAILY alpha lipoic acid 200 mg capsule 200 mg PO DAILY cholecalciferol (vitamin D3) 25 mcg (1,000 unit) capsule 25 mcg PO DAILY multivitamin 1 TABLET tablet 1 tab PO DAILY metoprolol succinate 50 MG tablet extended release 24 hr 75 mg PO DAILY pravastatin 80 MG tablet 80 mg PO QHS Patient Comments: losartan 100 MG tablet 100 mg PO DAILY Qty: 0 0RF Rx Instructions: Hold if systolic blood pressure less than 110 mmHg solifenacin 5 MG tablet 5 mg PO DAILY aspirin 81 mg tablet,delayed release (DR/EC) 81 mg PO DAILY memantine 10 mg tablet 10 mg PO BID quetiapine [Seroquel] 25 mg tablet 25 mg PO QHS Qty: 30 0RF Referrals / Follow Up: Adama Jon MD [Primary Care Provider, Family Practice] - Within 1 Week Disposition Disposition (needs filled in before D/C Order can be placed): Home, Self Care
[2025-10-03 09:59] VITALS: BP 121/57; PULSE 62; RESP 18; TEMP 36.6; O2SAT 95
--- NOTE | 2025-10-03 10:57 | CASEMGMT ---
Pt with dc order placed, pt does not qualify for home oxygen.
--- NOTE | 2025-10-03 11:05 | CASEMGMT ---
Social Work- SW spoke with pt who reports that she is agreeable to d/c. Pt will pick pt up at 13:00. Pt had medication questions; SW forwarded call to bedside nurse who provided information. Plan: Home, no needs BARBRA Miller
--- NOTE | 2025-10-03 15:12 | PCM.DC.SUM ---
Providers Date of Admission: 10/01/25 Primary Care Physician: Dr. Adama Jon MD Reason For Visit: INFLUENZA, WEAKNESS, CONFUSION Diagnosis Discharge Diagnosis (1) Influenza A: Status: Acute Code(s): J10.1 - Influenza due to other identified influenza virus with other respiratory manifestations (2) Bilateral pulmonary infiltrates: Status: Acute Code(s): R91.8 - Other nonspecific abnormal finding of lung field Medications at Discharge Home Medications multivitamin 1 tab PO DAILY vitamin 10/04/13 metoprolol succinate 50 mg tablet,extended release 24 hr 75 mg PO DAILY bp 02/10/18 pravastatin 80 mg tablet 80 mg PO QHS cholesterol 02/10/18 losartan 100 mg tablet 100 mg PO DAILY bp ##0 02/12/18 solifenacin 5 mg tablet 5 mg PO DAILY overactive bladder 08/17/20 amlodipine 10 mg tablet 10 mg PO DAILY bp 09/11/20 cinnamon bark 500 mg capsule 500 mg PO DAILY supplement 09/11/20 donepezil 10 mg tablet 10 mg PO QHS memory 09/11/20 nitroglycerin 0.4 mg sublingual tablet 0.4 mg sublingual Q5-15M PRN Cardiac/Chest Pain 09/11/20 pantoprazole 40 mg tablet,delayed release 40 mg PO DAILY stomach 09/11/20 alpha lipoic acid 200 mg capsule 200 mg PO DAILY see 09/12/21 ascorbate calcium (vitamin C) 500 mg tablet 500 mg PO DAILY supplement 09/12/21 cholecalciferol (vitamin D3) 25 mcg (1,000 unit) capsule 25 mcg PO DAILY supplement 04/28/24 aspirin 81 mg tablet,delayed release 81 mg PO DAILY blood thinner 06/08/24 memantine 10 mg tablet 10 mg PO BID memory 06/08/24 quetiapine 25 mg tablet (Seroquel) 25 mg PO QHS #30 tabs 06/13/24 cefdinir 300 mg capsule 300 mg PO BID 5 days #10 caps 10/03/25 doxycycline monohydrate 100 mg capsule 100 mg PO BID 5 days #10 caps 10/03/25 oseltamivir 30 mg capsule 30 mg PO BID 3 days #6 caps 10/03/25 Hospital Course Operations None Procedures None Summary of Care Provided Minutes Spent on Discharge: 35 Hospital Course: Per HPI: NARA DIAZ, is a 80 M who presents new onset nonproductive cough and worsening confusion. Patient has medical history of dementia, CVA and stents who he lives at home with his , he is partly dependent on her with his activities of living. He was febrile today 101.6 at home and he developed a dry cough and states that he was more confused than his baseline and he became weaker than usual. She also noted that he has some wheezing when he breathes. In the ED his vitals were within normal limits. He did not require oxygen at rest. Chest x-ray showed scattered bilateral airspace opacities concerning for multifocal pneumonia, although looking at his x-ray from 2023 no much difference can be appreciated. CBC within normal limits except for elevated neutrophil/lymphocyte ratio. Creatinine 1.4 close to his baseline, Lactic acid 2.2., UA clear, Influenza A+. EKG unchanged from before, no ischemia. Patient will be admitted to the hospital for management of generalized debility from influenza A, x-ray showing pneumonia but he is not tachypneic or desaturating. No sepsis. Hospital Course: 1. Weakness and debility secondary to influenza A with multifocal pneumonia?80-year-old male presented to the hospital with increasing confusion and some weakness and was found to be positive for influenza on admission. He also had signs consistent with multifocal pneumonia with an elevated white count to 11.2., He was started on Rocephin and doxycycline as well as Tamiflu. He did have significant improvement and had an ambulatory pulse ox on the day of discharge that was negative for any oxygen requirements. I did discuss with his the possibility for discharge and she expressed understanding of the risks and benefits of taking him home and he would like to take him home today. So far blood cultures have been negative. Will plan to discharge on 3 more days of Tamiflu as well as 5 more days of cefdinir and doxycycline as he is allergic to azithromycin. 2. Essential hypertension, hyperlipidemia, dementia, GERD are all chronic medical conditions which complicate his care. His home medications were continued where appropriate. Physical Exam Narrative General: Alert, Oriented x1, Cooperative, No apparent distress HEENT: Atraumatic, PERRLA, EOMI, Normocephalic Oral: Moist Mucosa Neck: Supple, No JVD Lungs: Diminished, Normal air movement, No rhonchi, scattered wheeze, No rales Cardiovascular: Regular rate, Regular Rhythm, Normal S1, Normal S2, No murmurs Abdomen: Soft, Non Tender, Non-Distended, No Hepato-splenomegaly Extremities: No edema, Capillary Refill Less than 3 Seconds Skin: No rashes, No breakdown Musculoskeletal: No Tenderness to Palpation of Joints or Extremities Neurological: No focal neurological deficits, moves all extremities Psych/Mental Status: Flat Weight / BMI Weight Weight: 196 lb 5 oz Body Mass Index (BMI) 30.7 ABG / Lab / Microbiology Data 10/03/25 04:15 10/03/25 04:15 Laboratory: Laboratory Results - last 24 hr 10/03/25 04:15: WBC 7.0, RBC 4.12 L, Hgb 12.0 L, Hct 36.6 L, MCV 88.8, MCH 29.1, MCHC 32.8, RDW Std Deviation 44.9 H, RDW Coeff of Sami 13.9, Plt Count 160, MPV 10.5, Immature Gran % (Auto) 0.300, Neut % (Auto) 59.9, Lymph % (Auto) 26.9, [place] % (Auto) 11.4 H, Eos % (Auto) 1.1, Baso % (Auto) 0.4, Absolute Neuts (auto) 4.2, Absolute Lymphs (auto) 1.89, Nucleated RBC % 0, Sodium 142, Potassium 3.5, Chloride 108 H, Carbon Dioxide 23.8, Anion Gap 10, BUN 20 H, Creatinine 1.08, Estim Creat Clear Calc 56.15, Est GFR (MDRD) Non-Af 69, BUN/Creatinine Ratio 18.1, Glucose 95, Calcium 8.7 Microbiology: Microbiology 09/30/25 23:45 Mucosa - Nose SARS-CoV-2, Influenza & RSV (PCR) - Final Influenzae A D/C Instructions Call your doctor if you observe: Fever of 101 or Higher, Shortness of breath, Dizziness, Fainting spells, Swelling in the ankles, Chest pain and Increased palpitations (irregular heartbeat) DC O2, CPAP, BIPAP Needs Home O2 Discharge instructions: No Meaningful Use Info Meaningful Use Meaningful Use Diagnoses (Choose all that apply): None applicable Discharge Plan Admission Admit Date/Time: 10/01/25 01:53 Attending Provider: Gaudencio Camilo Primary Care Provider: Adama Jon Consulting Providers: El-Alali,Emran Discharge Orders/Prescriptions Prescriptions: New doxycycline monohydrate 100 mg Capsule 100 mg PO BID 5 Days Qty: 10 0RF oseltamivir 30 mg Capsule 30 mg PO BID 3 Days Qty: 6 0RF cefdinir 300 mg capsule 300 mg PO BID 5 Days Qty: 10 0RF Continued amlodipine 10 mg tablet 10 mg PO DAILY cinnamon bark 500 mg capsule 500 mg PO DAILY pantoprazole 40 mg tablet,delayed release (DR/EC) 40 mg PO DAILY donepezil 10 mg tablet 10 mg PO QHS nitroglycerin 0.4 mg tablet, sublingual 0.4 mg SUBLINGUAL Q5-15M PRN (Reason: Cardiac/Chest Pain) Rx Instructions: do not exceed 3 doses per episode ascorbate calcium (vitamin C) 500 mg tablet 500 mg PO DAILY alpha lipoic acid 200 mg capsule 200 mg PO DAILY cholecalciferol (vitamin D3) 25 mcg (1,000 unit) capsule 25 mcg PO DAILY multivitamin 1 TABLET tablet 1 tab PO DAILY metoprolol succinate 50 MG tablet extended release 24 hr 75 mg PO DAILY pravastatin 80 MG tablet 80 mg PO QHS Patient Comments: losartan 100 MG tablet 100 mg PO DAILY Qty: 0 0RF Rx Instructions: Hold if systolic blood pressure less than 110 mmHg solifenacin 5 MG tablet 5 mg PO DAILY aspirin 81 mg tablet,delayed release (DR/EC) 81 mg PO DAILY memantine 10 mg tablet 10 mg PO BID quetiapine [Seroquel] 25 mg tablet 25 mg PO QHS Qty: 30 0RF Referrals / Follow Up: Adama Jon MD [Primary Care Provider, Family Practice] - Within 1 Week Disposition Disposition (needs filled in before D/C Order can be placed): Home, Self Care Charges/Coding Visit Charges Inpatient E&M: 65250 Disch Hosp >30min
== END 2025-10-03 13:06 | disposition home or self-care (01) | DRG 193 ==
LOC: ED 10-01 00:19 → MS3 10-01 02:48
PROVIDERS: Admitting Provider Internal Medicine; Emergency Provider Specialist/Technologist Athletic Trainer; PCP Family Medicine; Referring Provider Internal Medicine; Visit Provider Family Medicine
DX: J10.08 Influenza due to other identified influenza virus with other specified pneumonia (principal); G93.41 Metabolic encephalopathy; E87.20 Acidosis, unspecified; F03.90 Unspecified dementia, unspecified severity, without behavioral disturbance, psychotic disturbance, mood disturbance, and anxiety; I71.40 Abdominal aortic aneurysm, without rupture, unspecified; I10 Essential (primary) hypertension; E78.5 Hyperlipidemia, unspecified; G47.33 Obstructive sleep apnea (adult) (pediatric); I25.2 Old myocardial infarction; I25.10 Atherosclerotic heart disease of native coronary artery without angina pectoris; K21.9 Gastro-esophageal reflux disease without esophagitis; F17.210 Nicotine dependence, cigarettes, uncomplicated; N32.81 Overactive bladder; R53.81 Other malaise; R53.1 Weakness; Z95.5 Presence of coronary angioplasty implant and graft; Z86.73 Personal history of transient ischemic attack (TIA), and cerebral infarction without residual deficits; Z85.46 Personal history of malignant neoplasm of prostate; Z79.82 Long term (current) use of aspirin; Z79.899 Other long term (current) drug therapy
CPT/HCPCS: 36415; 71046; 80048; 80053; 81001; 83605; 83735; 85025; 87040; 87631; 93005; 94640; 97116; 97162; 97166; 97530; 97535; 99285; A4216; J0696; J2405